=== PATIENT | female | born 1970 | race Caucasian/White ===

== ENCOUNTER 2023-07-06 08:23 | Inpatient (IN) | payer OTHER, SELFPAY ==
[2023-07-06] VITALS (94 sets, daily range): BP systolic 83–128; BP diastolic 43–85; PULSE 113–135; RESP 16–27; TEMP 36.9–37.3; O2SAT 80–100; BMI 29.5; BMI 27.0
--- NOTE | 2023-07-06 08:29 | ECG_ITS ---
[facility] Test Date: 2023-07-06 Pat Name: ANU YEUNG Department: Room: - Gender: Female Magazine Writer: : 1970 Requested By: [id number] Order Number: [id number] Reading MD: KHOI TORRES Measurements Intervals [place] Rate: 128 P: 90 PA: 188 QRS: 81 QRSD: 80 T: -47 QT: 298 QTc: 374 Interpretive Statements 1120 Sinus tachycardia [address] depression 4664 Twave abnormality, possible inferior ischemia 9150 abnormal ECG No previous ECG available for comparison Electronically Signed On 07-11-2023 7:50:51 EST by KHOI TORRES
--- NOTE | 2023-07-06 08:34 | ED.GENADUL1 ---
HPI - General Adult General Chief complaint: Nausea/Vomiting/Diarrhea Stated complaint: Diabetic/Flu Time Seen by Provider: 07/06/23 08:29 Source: patient Mode of arrival: ambulance Limitations: no limitations History of Present Illness HPI narrative: 53-year-old female presents for nausea and vomiting. She is diabetic and hasn't taken her medication in an unclear amount of time. She states she's been sick for two days. No fever or hematemesis. She thinks her electrolytes are off. She does not complain to me of chest pain or abdominal pain or back pain. Related Data Home Medications Medication Instructions Recorded Confirmed No Known Home Medications 07/06/23 07/06/23 Allergies Allergy/AdvReac Type Severity Reaction Status Date / Time No Known Drug Allergies Allergy Verified 07/06/23 08:26 Review of Systems ROS Narrative A ten point review of systems is negative except as noted above. Exam Narrative Exam Narrative: Nurses note and vital signs reviewed and patient is not hypoxic. General: The patient appears well and in no apparent distress. Patient is resting comfortably on cart. Skin: Warm, dry, no pallor noted. There is no rash noted. Head: Normocephalic, atraumatic Eye: Normal conjunctiva, no drainage Ears, Nose, Mouth, and Throat: oral mucosa is quite dry. Nares patent. Cardiovascular: Regular Rate and Rhythm, tachycardic Respiratory: Patient is in no distress, no accessory muscle use, lungs are clear to auscultation, no wheezing, rales or rhonchi Back: non-tender GI: soft and nontender Musculoskeletal: The patient has no evidence of calf tenderness, no pitting edema, symmetrical pulses noted bilaterally Neurological: A&O, normal speech Psychiatric: Cooperative Constitutional Vital Signs, click to edit/add: Last Vital Signs Temp 98.5 F 07/06/23 08:26 Pulse 130 H 07/06/23 08:26 Resp 22 07/06/23 08:26 BP 103/80 07/06/23 08:26 Pulse Ox 98 07/06/23 08:26 O2 Del Method Room Air 07/06/23 08:26 Course Vital Signs Vital signs: Vital Signs Temperature 98.5 F 07/06/23 08:26 Pulse Rate 130 H 07/06/23 08:26 Respiratory Rate 22 07/06/23 08:26 Blood Pressure 103/80 07/06/23 08:26 Pulse Oximetry 98 07/06/23 08:26 Oxygen Delivery Method Room Air 07/06/23 08:26 Temperature 98.5 F 07/06/23 08:26 Pulse Rate 130 H 07/06/23 08:26 Respiratory Rate 22 07/06/23 08:26 Blood Pressure 103/80 07/06/23 08:26 Pulse Oximetry 98 07/06/23 08:26 Oxygen Delivery Method Room Air 07/06/23 08:26 Medical Decision Making MDM Narrative Medical decision making narrative: the patient is found to be in diabetic ketoacidosis. She was given IV fluids and insulin bolus and insulin drip and she's being admitted to the ICU. Findings are discussed with the patient and her friend. Differential Diagnosis Differential Diagnosis: diabetic to acidosis, noncompliance, dehydration Lab Data Lab results reviewed: Yes I reviewed the patient's lab results Labs: Lab Results 07/06/23 07/06/23 Range/Units 09:15 10:11 WBC 11.0 (4.0-11.0) 10^3/uL RBC 5.74 H (4.20-5.40) 10^6/uL Hgb 16.9 H (12.0-16.0) g/dL Hct 55.0 H (36.0-48.0) % MCV 95.8 (81.0-99.0) fL MCH 29.4 (26.7-34.0) pg MCHC 30.7 (29.9-35.2) g/dL RDW 13.1 (11.0-15.0) % Plt Count 291 (150-450) 10^3/uL MPV 10.6 (9.5-13.5) fL Neut % (Auto) 81.7 H (43.0-75.0) % Lymph % (Auto) 8.2 L (20.5-60.0) % Catron % (Auto) 7.3 (1.7-12.0) % Eos % (Auto) 0.0 L (0.9-7.0) % Baso % (Auto) 0.5 (0.2-2.0) % Neut # (Auto) 9.0 H (1.4-6.5) 10^3/uL Lymph # (Auto) 0.9 L (1.2-3.8) 10^3/uL Catron # (Auto) 0.8 (0.3-0.8) 10^3/uL Eos # (Auto) 0.0 (0.0-0.7) 10^3/uL Baso # (Auto) 0.1 (0.0-0.1) 10^3/uL Abs Immat Gran (auto) 0.25 H (0.00-0.03) 10^3/uL Imm/Tot Granulo (auto) 2.3 H (0.0-0.5) % VBG pH 6.982 L (7.330-7.430) VBG pCO2 18.2 L (40.0-52.0) mmHg Sodium 128 L (136-145) mmol/L Potassium 4.8 (3.5-5.1) mmol/L Chloride 92 L (98-107) mmol/L Carbon Dioxide 8.6 L (21.0-32.0) mmol/L Anion Gap 32.2 BUN 36.0 H (7.0-18.0) mg/dL Creatinine 1.32 H (0.55-1.02) mg/dL Est GFR ( Amer) 51 L (>=60) Est GFR (Non-Af Amer) 42 L (>=60) BUN/Creatinine Ratio 27.3 Glucose 554 H* (74-106) mg/dL Calcium 10.3 H (8.5-10.1) mg/dL Magnesium 2.3 (1.8-2.4) mg/dL Total Bilirubin 0.5 (0.2-1.0) mg/dL Direct Bilirubin 0.1 (0.0-0.2) mg/dL AST 11 L (15-37) U/L ALT 21 (14-59) U/L Alkaline Phosphatase 123 H (46-116) U/L Troponin I High Sens 19.5 (4.0-51.3) pg/mL Total Protein 8.3 H (6.4-8.2) g/dL Albumin 3.4 (3.4-5.0) g/dL Globulin 4.9 g/dL Albumin/Globulin Ratio 0.7 Amylase 36 (25-115) U/L Lipase 39.0 (16.0-77.0) U/L Urine Color Lt. yellow (YELLOW) Urine Clarity Clear (CLEAR) Urine pH 5.5 (5.0-9.0) Ur Specific [place] 1.025 (1.005-1.025) Urine Protein 30 A (NEG/TRACE) mg/dL Urine Glucose (UA) >=1000 A (NEGATIVE) mg/dL Urine Ketones >=80 A (NEGATIVE) mg/dL Urine Occult Blood Small A (NEGATIVE) Urine Nitrite Negative (NEGATIVE) Urine Bilirubin Small A (NEGATIVE) Urine Urobilinogen 0.2 (0.2-1.0) EU/dL Ur Leukocyte Esterase Negative (NEGATIVE) Urine RBC 0-2 (0-2) #/HPF Urine WBC None seen (NONE SEEN) #/HPF Ur Squamous Epith Cells Rare (NONE/RARE) #/LPF Urine Crystals None seen (None Seen) #/HPF Urine Bacteria None seen (NONE SEEN) #/HPF Urine Casts Seen A (NONE SEEN) #/LPF Coarse Granular Casts Few Urine Mucus Trace A (NONE SEEN) Acetone, Qual Small A (NEGATIVE) Imaging Data Chest x-ray: My impression: the patient refused her chest x-ray ECG Data Attestation: I personally reviewed and interpreted this ECG as follows: (EKG on my interpretation shows sinus tachycardia) Critical Care Time Critical Care Time Critical Care Time: Yes Total Critical Care Time: 40 Attestation: Due to the high probability of sudden and clinically significant deterioration in the patient's condition he/she required the highest level of my preparedness to intervene urgently I provided critical care time including documentation time, medication orders and management, reevaluation, vital sign assessment, ordering and reviewing of lab tests, ordering and reviewing of x-ray studies, and admission orders. Aggregate critical care time is 40 minutes including only time during which I was engaged in work directly related to his/her care and did not include time spent treating other patients simultaneously. Discharge Plan Discharge Chief Complaint: Nausea/Vomiting/Diarrhea Clinical Impression: Diabetic ketoacidosis Patient Disposition: Admitted As Inpatient Time of Disposition Decision: 10:41 Condition: Fair Prescriptions / Home Meds: No Action No Known Home Medications Referrals: Physician,Non-Staff, [Primary Care Provider] - 1 week
[2023-07-06] MEDS: 0.9 % SODIUM CHLORIDE 1,000 ML 1000 ML IV ×3 (08:41→19:57)
[2023-07-06] MEDS: ONDANSETRON PF 4 MG/2 ML VIAL IV (08:41)
[2023-07-06 09:26] LABS: PCO2 VBG 18.2 mmHg (40.0-52.0); pH VBG 6.982 (7.330-7.430)
[2023-07-06 09:27] LABS: Basophils Absolute Auto 0.1 10^3/uL (0.0-0.1); Basophils Percent Auto 0.5 % (0.2-2.0); Hemoglobin 16.9 g/dL (12.0-16.0); Immature Granulocytes Abs Auto 0.25 10^3/uL (0.00-0.03); Immature Granulocytes Pct Auto 2.3 % (0.0-0.5); Lymphocytes Absolute Auto 0.9 10^3/uL (1.2-3.8); Lymphocytes Percent Auto 8.2 % (20.5-60.0); Mean Corpuscular HGB Conc 30.7 g/dL (29.9-35.2); Mean Corpuscular Hemoglobin 29.4 pg (26.7-34.0); Mean Corpuscular Volume 95.8 fL (81.0-99.0); Mean Platelet Volume 10.6 fL (9.5-13.5); Monocytes Absolute Auto 0.8 10^3/uL (0.3-0.8); Monocytes Percent Auto 7.3 % (1.7-12.0); Neutrophils Percent Auto 81.7 % (43.0-75.0); Platelet Count 291 10^3/uL (150-450); Red Blood Count 5.74 10^6/uL (4.20-5.40); Red Cell Distribution Width 13.1 % (11.0-15.0)
[2023-07-06 09:44] LABS: Alanine Aminotransferase 21 U/L (14-59); Albumin Globulin Ratio 0.7; Albumin Level 3.4 g/dL (3.4-5.0); Alkaline Phosphatase 123 U/L (46-116); Amylase 36 U/L (25-115); Anion Gap 32.2; Aspartate Amino Transferase 11 U/L (15-37); BUN Creatinine Ratio 27.3; Bilirubin Direct 0.1 mg/dL (0.0-0.2); Bilirubin Total 0.5 mg/dL (0.2-1.0); Calcium 10.3 mg/dL (8.5-10.1); Carbon Dioxide 8.6 mmol/L (21.0-32.0); Chloride 92 mmol/L (98-107); Estimated GFR (African America 51 (>=60); Estimated GFR (Non-African Ame 42 (>=60); Globulin 4.9 g/dL; Magnesium 2.3 mg/dL (1.8-2.4); Potassium 4.8 mmol/L (3.5-5.1); Sodium 128 mmol/L (136-145); Total Protein 8.3 g/dL (6.4-8.2); Troponin I High Sensitivity 19.5 pg/mL (4.0-51.3)
[2023-07-06 09:51] LABS: Glucose 554 mg/dL (74-106)
[2023-07-06 09:59] LABS: Acetone SMALL (NEGATIVE)
[2023-07-06 10:25] LABS: Bilirubin Urine SMALL (NEGATIVE); Blood Urine SMALL (NEGATIVE); Clarity Urine CLEAR (CLEAR); Color Urine LT. YELLOW (YELLOW); Glucose Urine UA >=1000 mg/dL (NEGATIVE); Ketones Urine >=80 mg/dL (NEGATIVE); Leukocyte Esterase Urine NEGATIVE (NEGATIVE); Nitrite Urine NEGATIVE (NEGATIVE); Protein Urine 30 mg/dL (NEG/TRACE); Specific Gravity Urine 1.025 (1.005-1.025); Urobilinogen Urine 0.2 EU/dL (0.2-1.0); pH Urine 5.5 (5.0-9.0)
[2023-07-06 10:30] LABS: RBC Urine 0-2 #/HPF (0-2); WBC Urine NONE SEEN #/HPF (NONE SEEN)
[2023-07-06 10:31] LABS: Bacteria Urine NONE SEEN #/HPF (NONE SEEN); Cast Seen? SEEN #/LPF (NONE SEEN); Coarse Granular Casts Urine FEW; Crystals Seen? None Seen #/HPF (None Seen); Mucus Urine TRACE (NONE SEEN); Squamous Epithelial Cell Urine RARE #/LPF (NONE/RARE)
[2023-07-06] MEDS: INSULIN REGULAR IN 0.9 % NACL 100 UNIT/100 ML PLAST..BAG 7.8 UNIT IV (10:34)
[2023-07-06] MEDS: INSULIN REGULAR 300 UNITS/3 ML 10 UNIT IV (10:35)
[2023-07-06 12:35] LABS: Glucometer 330 mg/dL (74-106)
[2023-07-06] MEDS: LACTATED RINGER'S SOLUTION 1,000 ML 125 ML IV (12:42)
[2023-07-06 12:55] LABS: Anion Gap 31.2; BUN Creatinine Ratio 28.7; Calcium 9.7 mg/dL (8.5-10.1); Carbon Dioxide 8.8 mmol/L (21.0-32.0); Chloride 99 mmol/L (98-107); Estimated GFR (African America 59 (>=60); Estimated GFR (Non-African Ame 49 (>=60); Glucose 398 mg/dL (74-106); Sodium 134 mmol/L (136-145)
[2023-07-06 12:56] LABS: Lactate/Lactic Acid 3.1 mmol/L (0.4-2.0)
[2023-07-06 13:02] LABS: Troponin I High Sensitivity 21.8 pg/mL (4.0-51.3)
[2023-07-06 13:08] LABS: Free T3 1.14 pg/mL (2.18-3.98); Thyroid Stimulating Hormone 0.253 uIU/mL (0.358-3.740)
[2023-07-06] MEDS: INSULIN REGULAR IN 0.9 % NACL 100 UNIT/100 ML PLAST..BAG IV (16:17)
[2023-07-06 16:23] LABS: Lactate/Lactic Acid 1.3 mmol/L (0.4-2.0)
[2023-07-06] MEDS: 0.9 % SODIUM CHLORIDE 1,000 ML 500 ML IV ×2 (16:36→18:26)
[2023-07-06] MEDS: DEXTROSE 5%-0.9% NACL 1,000 ML 1,000 ML 100 ML IV ×2 (17:35→17:36)
--- NOTE | 2023-07-06 19:14 | XR_ITS ---
[address] [address] Patient Name: ANU YEUNG MRN: [id number] date: 1970 Sex: F Assigned Patient Location: ICU Current Patient Location: ICU Accession/Order Number: [id number] Exam Date: 07/06/2023 19:35 Report Date: 07/06/2023 20:07 At the request of: KHOI TORRES Procedure: XR chest 1V EXAM: XR chest 1V HISTORY: cough COMPARISON: Chest x-ray 08/09/2012 TECHNIQUE: Single AP radiograph of the chest FINDINGS: No pneumothorax and pleural effusion or consolidation. Normal heart size. No acute osseous abnormality. XR/XR chest 1V IMPRESSION: No acute cardiopulmonary process. Electronically authenticated by: STEVEN SPARKS Date: 07/06/2023 20:07
--- NOTE | 2023-07-06 19:15 | P.HP_ITS ---
H&P: HPI History of Present Illness Chief complaint: Diabetic/Flu, DKA Narrative: Patient difficult to get a history from, she is given multiple answers to multiple providers. Like she was sick earlier in the week. Initially to the nurse she denied any type of cough or respiratory issue, to me she says she has been coughing all week. Nausea and vomiting started the last 24 hours but has not had anything since this morning. On my exam she is in respiratory distress and increasing cough. Per the nurse that has progressed throughout the course of the day today. In ER patient found to have DKA. pH less than 7. Admitted to the ICU on insulin drip. Fluid boluses. Blood pressures been decreasing throughout the afternoon despite boluses. Tachycardia also. Review of Systems ROS Narrative Very difficult to get an accurate history of the patient she is not cooperative Status of ROS 10 or more systems reviewed and unremark able except as noted in history and below [facility] Medical History Diabetes mellitus ?E11.9 - Type 2 diabetes mellitus without complications (ICD-10) Meds Home Medications and Allergies Home Medications Medication Instructions Recorded Confirmed Type No Known Home Medications 07/06/23 07/06/23 History Allergies Allergy/AdvReac Type Severity Reaction Status Date / Time No Known Drug Allergies Allergy Verified 07/06/23 08:26 Exam Constitutional Vital Signs, click to edit/add: Last Vital Signs Temp 98.6 F 07/06/23 16:11 Pulse 125 H 07/06/23 18:00 Resp 21 07/06/23 16:10 BP 90/67 07/06/23 16:00 Pulse Ox 100 07/06/23 18:00 O2 Del Method Room Air 07/06/23 16:37 Documenting provider has reviewed patient's vital signs: yes Common normals: apparent distress Chest Common normals: inspection of chest normal and palpation of chest normal Respiratory Common normals: abnormal respiratory effort (Mild labored breathing) and use of accessory muscles Auscultation: rhonchi right lower Cardio Common normals: irregular rate Rate: tachycardic Extremity Common normals: normal to inspection Results Labs Labs: Short CBC 07/06/23 Range/Units 09:15 WBC 11.0 (4.0-11.0) 10^3/uL Hgb 16.9 H (12.0-16.0) g/dL Hct 55.0 H (36.0-48.0) % Plt Count 291 (150-450) 10^3/uL BMP 07/06/23 07/06/23 09:15 12:35 Sodium 128 L 134 L Potassium 4.8 5.0 Chloride 92 L 99 Carbon Dioxide 8.6 L 8.8 L BUN 36.0 H 33.0 H Creatinine 1.32 H 1.15 H Glucose 554 H* 398 H Calcium 10.3 H 9.7 Liver Function 07/06/23 Range/Units 09:15 Total Bilirubin 0.5 (0.2-1.0) mg/dL Direct Bilirubin 0.1 (0.0-0.2) mg/dL AST 11 L (15-37) U/L ALT 21 (14-59) U/L Alkaline Phosphatase 123 H (46-116) U/L Albumin 3.4 (3.4-5.0) g/dL Urine 07/06/23 Range/Units 10:11 Urine Color Lt. yellow (YELLOW) Urine Clarity Clear (CLEAR) Urine pH 5.5 (5.0-9.0) Ur Specific [place] 1.025 (1.005-1.025) Urine Protein 30 A (NEG/TRACE) mg/dL Urine Glucose (UA) >=1000 A (NEGATIVE) mg/dL ABG ABG results: 07/06/23 09:15 VBG pH 6.982 L VBG pCO2 18.2 L Assessment and Plan Assessment and Plan (1) Diabetic ketoacidosis: Plan Tachycardia, respiratory distress, hypotension, metabolic acidosis, leukocytosis, hyponatremia, dehydration, elevated LFTs, acute kidney injury secondary to DKA possibly secondary to pneumonia resulting in severe sepsis with multisystem organ dysfunction(heart, liver, kidney), exam consistent with possible rhonchi right lower lobe consistent with pneumonia. Will check chest x-ray. Start patient on IV antibiotics and aerosol treatments. DKA-continue with fluid resuscitation, did hold off on insulin drip secondary to sugars going less than 170. Start D5 as I doubt her metabolic acidosis has resolved. Needs further combination of insulin and sugar to resolve Acute kidney injury secondary to DKA-monitor daily, continue fluid resuscitation Hyponatremia secondary to dehydration secondary to DKA with acute kidney injury- continue fluid resuscitation Polycythemia-this is likely secondary to hemoconcentration from the DKA and dehydration Elevated liver function test likely related to passive congestion from the DKA- dehydration. Monitor daily With the severity of illness and the degree of metabolic acidosis and need for insulin drip patient was admitted to the ICU as an inpatient.
[2023-07-06 19:22] LABS: Anion Gap 20.4; BUN Creatinine Ratio 23.4; Calcium 8.8 mg/dL (8.5-10.1); Carbon Dioxide 13.4 mmol/L (21.0-32.0); Chloride 103 mmol/L (98-107); Estimated GFR (African America >60 (>=60); Estimated GFR (Non-African Ame >60 (>=60); Glucose 226 mg/dL (74-106); Potassium 3.8 mmol/L (3.5-5.1); Sodium 133 mmol/L (136-145)
[2023-07-06] MEDS: LEVOFLOXACIN IN DEXTROSE 5 % 750 MG/150 ML IV.SOLN 100 MG IV (20:25)
[2023-07-06] MEDS: PIPERACILLIN SODIUM/TAZOBACTAM 3.375 GM in 0.9 % SODIUM CHLORIDE 50 ML IV (22:28)
--- NOTE | 2023-07-06 22:37 | RESP.RT ---
Pt refused breathing tx. Pt stated she is not having trouble breathing and feels it is not necessary at this time. No respiratory distress noted. Breath sounds clear.
[2023-07-07] VITALS (133 sets, daily range): BP systolic 130–151; BP diastolic 60–78; PULSE 98–124; RESP 7–33; TEMP 36.5–37.2; O2SAT 96–98
[2023-07-07 04:53] LABS: Basophils Percent Auto 0.1 % (0.2-2.0); Hematocrit 38.7 % (36.0-48.0); Hemoglobin 12.9 g/dL (12.0-16.0); Immature Granulocytes Abs Auto 0.04 10^3/uL (0.00-0.03); Immature Granulocytes Pct Auto 0.6 % (0.0-0.5); Lymphocytes Absolute Auto 0.6 10^3/uL (1.2-3.8); Lymphocytes Percent Auto 8.3 % (20.5-60.0); Mean Corpuscular HGB Conc 33.3 g/dL (29.9-35.2); Mean Corpuscular Hemoglobin 29.2 pg (26.7-34.0); Mean Corpuscular Volume 87.6 fL (81.0-99.0); Mean Platelet Volume 9.7 fL (9.5-13.5); Monocytes Absolute Auto 0.6 10^3/uL (0.3-0.8); Monocytes Percent Auto 8.6 % (1.7-12.0); Neutrophils Absolute Auto 5.8 10^3/uL (1.4-6.5); Neutrophils Percent Auto 82.4 % (43.0-75.0); Platelet Count 198 10^3/uL (150-450); Red Blood Count 4.42 10^6/uL (4.20-5.40); Red Cell Distribution Width 13.3 % (11.0-15.0); White Blood Count 7.1 10^3/uL (4.0-11.0)
[2023-07-07 04:54] LABS: PCO2 VBG 33.9 mmHg (40.0-52.0); pH VBG 7.288 (7.330-7.430)
[2023-07-07 05:13] LABS: Alanine Aminotransferase 16 U/L (14-59); Albumin Globulin Ratio 0.7; Albumin Level 2.4 g/dL (3.4-5.0); Alkaline Phosphatase 78 U/L (46-116); Anion Gap 14.1; Aspartate Amino Transferase 10 U/L (15-37); BUN Creatinine Ratio 14.7; Bilirubin Total 0.3 mg/dL (0.2-1.0); Calcium 8.1 mg/dL (8.5-10.1); Carbon Dioxide 17.8 mmol/L (21.0-32.0); Chloride 105 mmol/L (98-107); Estimated GFR (African America >60 (>=60); Estimated GFR (Non-African Ame >60 (>=60); Globulin 3.3 g/dL; Glucose 272 mg/dL (74-106); Sodium 134 mmol/L (136-145); Total Protein 5.7 g/dL (6.4-8.2)
[2023-07-07 05:21] LABS: Troponin I High Sensitivity 40.1 pg/mL (4.0-51.3)
[2023-07-07 05:24] LABS: Potassium 2.9 mmol/L (3.5-5.1)
[2023-07-07 05:51] LABS: Magnesium 1.6 mg/dL (1.8-2.4)
[2023-07-07] MEDS: POTASSIUM CHLORIDE 10 MEQ IN WATER 100 ML PIGGYBACK IV (06:01)
[2023-07-07] MEDS: PIPERACILLIN SODIUM/TAZOBACTAM 3.375 GM in 0.9 % SODIUM CHLORIDE 50 ML IV ×3 (06:02→22:18)
--- NOTE | 2023-07-07 07:38 | P.PN_ITS ---
Progress Note: Subjective Subjective Interval history: Patient much more awake and alert this morning. Little more cooperative as well. Exam Constitutional Vital Signs, click to edit/add: Last Vital Signs Temp 98.9 F 07/07/23 03:39 Pulse 114 H 07/07/23 06:08 Resp 20 07/07/23 04:54 BP 146/77 H 07/07/23 03:39 Pulse Ox 97 07/07/23 04:51 O2 Del Method Room Air 07/07/23 04:51 Documenting provider has reviewed patient's vital signs: yes Common normals: apparent distress Chest Common normals: inspection of chest normal and palpation of chest normal Respiratory Common normals: abnormal respiratory effort (Mild labored breathing) and use of accessory muscles Auscultation: rhonchi right lower Cardio Common normals: irregular rate Rate: tachycardic Extremity Common normals: normal to inspection Progress Note: Objective Labs Labs: Short CBC 07/06/23 07/07/23 Range/Units 09:15 04:40 WBC 11.0 7.1 (4.0-11.0) 10^3/uL Hgb 16.9 H 12.9 (12.0-16.0) g/dL Hct 55.0 H 38.7 (36.0-48.0) % Plt Count 291 198 (150-450) 10^3/uL BMP 07/06/23 07/06/23 07/06/23 09:15 12:35 18:53 Sodium 128 L 134 L 133 L Potassium 4.8 5.0 3.8 Chloride 92 L 99 103 Carbon Dioxide 8.6 L 8.8 L 13.4 L BUN 36.0 H 33.0 H 22.0 H Creatinine 1.32 H 1.15 H 0.94 Glucose 554 H* 398 H 226 H Calcium 10.3 H 9.7 8.8 07/07/23 04:40 Sodium 134 L Potassium 2.9 L* Chloride 105 Carbon Dioxide 17.8 L BUN 14.0 Creatinine 0.95 Glucose 272 H Calcium 8.1 L Liver Function 07/06/23 07/07/23 Range/Units 09:15 04:40 Total Bilirubin 0.5 0.3 (0.2-1.0) mg/dL Direct Bilirubin 0.1 (0.0-0.2) mg/dL AST 11 L 10 L (15-37) U/L ALT 21 16 (14-59) U/L Alkaline Phosphatase 123 H 78 (46-116) U/L Albumin 3.4 2.4 L (3.4-5.0) g/dL Urine 07/06/23 Range/Units 10:11 Urine Color Lt. yellow (YELLOW) Urine Clarity Clear (CLEAR) Urine pH 5.5 (5.0-9.0) Ur Specific [place] 1.025 (1.005-1.025) Urine Protein 30 A (NEG/TRACE) mg/dL Urine Glucose (UA) >=1000 A (NEGATIVE) mg/dL Progress Note: A&P Assessment and Plan (1) Diabetic ketoacidosis: Plan Tachycardia, respiratory distress, hypotension, metabolic acidosis, leukocytosis, hyponatremia, dehydration, elevated LFTs, acute kidney injury secondary to DKA possibly secondary to pneumonia resulting in severe sepsis with multisystem organ dysfunction(heart, liver, kidney), chest x-ray is clear but patient does have a significant cough, nonproductive, continue with IV antibiotics DKA-continue with fluid resuscitation, patient back on insulin drip, sugars running low 200s with the drip. Acidosis slowly resolving. pH up to 7.2. Maintain current Treatment:, Possible change to subcu insulin and fluid resuscitation has been completed Acute kidney injury secondary to DKA-monitor daily, continue fluid resuscit ation-repeat fluid bolus this morning, tachycardia improving Hyponatremia secondary to dehydration secondary to DKA with acute kidney injury- continue fluid resuscitation Polycythemia-this is likely secondary to hemoconcentration from the DKA and dehydration-this is resolved Elevated liver function test likely related to passive congestion from the DKA- dehydration. Monitor daily-improved With the severity of illness and the degree of metabolic acidosis and need for insulin drip patient was admitted to the ICU as an inpatient. Hypokalemia as suspected from improving acidosis-supplements morning. Repeat level later this morning and continue to supplement IV as needed Moderate protein calorie malnutrition based on NIH criteria for albumin-consider supplementation, will see how patient does p.o. intake today Hypomagnesemia-supplement
--- NOTE | 2023-07-07 07:38 | CM.NOTE ---
Rounds made with Dr. Page, no discharge today.
[2023-07-07] MEDS: 0.9 % SODIUM CHLORIDE 1,000 ML 500 ML IV ×2 (08:00→11:21)
[2023-07-07] MEDS: MAGNESIUM OXIDE 400 MG TABLET PO ×2 (08:55→20:01)
[2023-07-07 11:50] LABS: Anion Gap 18.4; BUN Creatinine Ratio 11.8; Calcium 6.9 mg/dL (8.5-10.1); Carbon Dioxide 16.4 mmol/L (21.0-32.0); Chloride 108 mmol/L (98-107); Estimated GFR (African America >60 (>=60); Estimated GFR (Non-African Ame >60 (>=60); Glucose 190 mg/dL (74-106); Sodium 140 mmol/L (136-145)
[2023-07-07 12:06] LABS: Potassium 2.8 mmol/L (3.5-5.1)
[2023-07-07] MEDS: LACTATED RINGER'S SOLUTION 1,000 ML 125 ML IV ×2 (12:06→19:59)
[2023-07-07] MEDS: POTASSIUM CHLORIDE 40 MEQ in 0.9 % SODIUM CHLORIDE 250 ML 125 MEQ IV (13:09)
--- NOTE | 2023-07-07 17:15 | NUTR.NU ---
Pt admitted w/dx diabetic ketoacidosis, elyte imbalance (low Ca+, K+, Mg+), and diet order for 1500 kcal CCD, regular/thin diet. No PO intakes documented. Recommend 237 mL Ensure High PRO BID. Will follow PRN.
[2023-07-07 18:46] LABS: Anion Gap 19.7; Calcium 7.7 mg/dL (8.5-10.1); Carbon Dioxide 16.2 mmol/L (21.0-32.0); Chloride 102 mmol/L (98-107); Estimated GFR (African America >60 (>=60); Estimated GFR (Non-African Ame >60 (>=60); Glucose 237 mg/dL (74-106); Potassium 3.9 mmol/L (3.5-5.1); Sodium 134 mmol/L (136-145)
[2023-07-07] MEDS: LEVOFLOXACIN IN DEXTROSE 5 % 750 MG/150 ML IV.SOLN 100 MG IV (20:00)
[2023-07-07] MEDS: ENSURE HP 237 ML LIQUID PO (20:01)
[2023-07-08] VITALS (101 sets, daily range): BP systolic 132–153; BP diastolic 67–82; PULSE 85–133; RESP 0–44; TEMP 36.4–37.1; O2SAT 96–98
[2023-07-08] MEDS: PIPERACILLIN SODIUM/TAZOBACTAM 3.375 GM in 0.9 % SODIUM CHLORIDE 50 ML IV (05:29)
[2023-07-08] MEDS: LACTATED RINGER'S SOLUTION 1,000 ML 125 ML IV (05:29)
[2023-07-08] MEDS: INSULIN REGULAR IN 0.9 % NACL 100 UNIT/100 ML PLAST..BAG IV (05:40)
[2023-07-08 05:46] LABS: PCO2 VBG 36.1 mmHg (40.0-52.0); pH VBG 7.435 (7.330-7.430)
[2023-07-08 05:55] LABS: Basophils Percent Auto 0.6 % (0.2-2.0); Hematocrit 36.7 % (36.0-48.0); Hemoglobin 12.3 g/dL (12.0-16.0); Immature Granulocytes Abs Auto 0.01 10^3/uL (0.00-0.03); Immature Granulocytes Pct Auto 0.3 % (0.0-0.5); Lymphocytes Absolute Auto 0.9 10^3/uL (1.2-3.8); Lymphocytes Percent Auto 24.5 % (20.5-60.0); Mean Corpuscular HGB Conc 33.5 g/dL (29.9-35.2); Mean Corpuscular Hemoglobin 28.6 pg (26.7-34.0); Mean Corpuscular Volume 85.3 fL (81.0-99.0); Mean Platelet Volume 10.3 fL (9.5-13.5); Monocytes Absolute Auto 0.5 10^3/uL (0.3-0.8); Monocytes Percent Auto 14.4 % (1.7-12.0); Neutrophils Absolute Auto 2.1 10^3/uL (1.4-6.5); Neutrophils Percent Auto 60.2 % (43.0-75.0); Platelet Count 158 10^3/uL (150-450); Red Cell Distribution Width 13.1 % (11.0-15.0); White Blood Count 3.6 10^3/uL (4.0-11.0)
[2023-07-08 06:19] LABS: Magnesium 1.8 mg/dL (1.8-2.4)
[2023-07-08 06:25] LABS: Alanine Aminotransferase 15 U/L (14-59); Albumin Globulin Ratio 0.7; Albumin Level 2.3 g/dL (3.4-5.0); Alkaline Phosphatase 80 U/L (46-116); Anion Gap 14.2; Aspartate Amino Transferase 13 U/L (15-37); BUN Creatinine Ratio 7.1; Bilirubin Total 0.4 mg/dL (0.2-1.0); Calcium 8.3 mg/dL (8.5-10.1); Carbon Dioxide 24.5 mmol/L (21.0-32.0); Chloride 101 mmol/L (98-107); Estimated GFR (African America >60 (>=60); Estimated GFR (Non-African Ame >60 (>=60); Globulin 3.1 g/dL; Glucose 237 mg/dL (74-106); Sodium 137 mmol/L (136-145); Total Protein 5.4 g/dL (6.4-8.2)
[2023-07-08 06:40] LABS: Potassium 2.7 mmol/L (3.5-5.1)
[2023-07-08] MEDS: DEXTROSE 5%-0.9% NACL 1,000 ML 1,000 ML 100 ML IV (07:35)
[2023-07-08] MEDS: POTASSIUM CHLORIDE 40 MEQ in 0.9 % SODIUM CHLORIDE 250 ML 67.5 MEQ IV (07:58)
[2023-07-08] MEDS: ENSURE HP 237 ML LIQUID PO (08:00)
[2023-07-08] MEDS: MAGNESIUM OXIDE 400 MG TABLET PO ×2 (08:00→21:36)
[2023-07-08] MEDS: POTASSIUM CHLORIDE 10 MEQ ER TABLET 40 MEQ PO (09:36)
[2023-07-08] MEDS: INSULIN DETEMIR 300 UNIT/3 ML INSULN.PEN 20 UNIT SUBQ (09:36)
[2023-07-08 11:04] LABS: Estimated Average Glucose 355 mg/dL; Glycohemoglobin A1C >14.0 % (4.5-6.2)
--- NOTE | 2023-07-08 11:31 | PM.IMPN1 ---
Progress Note: A&P Assessment and Plan (1) Diabetic ketoacidosis: Assessment and Plan: Due to non compliance. GAP close earlier today. Started on Levemir 20 units qam along 50 untis qhs Stop IV insulin after 2 hours of receiving Levemir. C/w accu checks q4. Sliding scale insulin for hperglycemia. Transfer to med-surg floor. Will need continued monitoring to ensure gap remains close, electrolytes remain at goal and her blood glucose remains controlled. Qualifiers: Diabetes mellitus type: type 2 Diabetes mellitus complication detail: without coma Qualified Code(s): E11.10 - Type 2 diabetes mellitus with ketoacidosis without coma (2) GIORGIO (acute kidney injury): Assessment and Plan: resolved. likely pre renal (3) Hypokalemia: Assessment and Plan: Low potassium. Due to DKA, insulin infusion. Received 40 IV, 40 PO potassium Rechek BMP 2 pm (4) Hypovolemic shock: Assessment and Plan: Resolved. BP is elevated today. Monitor closely. (5) URTI (acute upper respiratory infection): Assessment and Plan: Normal rsp exam. Normal CXR. She was experiencing resp symptoms prior to her admission. Patient was started on Levaquin for presumed PNA. Will switch to PO Levaquin. Nomal Lung exam today. Internal Medicine - PN: Subj Subjective Interval history: Seen and examined. Doing well. No complaints to offer. Exam Constitutional Vital Signs, click to edit/add: Last Vital Signs Temp 97.8 F 07/08/23 08:00 Pulse 95 H 07/08/23 09:00 Resp 18 07/08/23 08:00 BP 146/82 H 07/08/23 08:00 Pulse Ox 98 07/08/23 11:00 O2 Del Method Room Air 07/08/23 08:00 Documenting provider has reviewed patient's vital signs: yes Common normals: no apparent distress and oriented x3 General appearance: cooperative Respiratory Common normals: normal respiratory effort and clear to auscultation bilaterally Effort & inspection: able to speak in complete sentences Auscultation: clear to auscultation bilaterally Cardio Common normals: regular rate, S1 normal heart sound and S2 normal heart sound Rate: regular rate Heart sounds: S1 normal and S2 normal GI Common normals: Normal to inspection, nondistended, normoactive bowel sounds present, soft to palpation, non-tender and no hepatosplenomegaly Palpation: soft and no hepatosplenomegaly Extremity Common normals: no clubbing, cyanosis or edema Neuro Common normals: oriented x3, moves all extremities and no focal motor deficits Internal Medicine - PN: Obj Da Labs Labs: Laboratory Results - last 24 hr 07/07/23 07/07/23 07/08/23 11:05 18:31 05:19 WBC 3.6 L RBC 4.30 Hgb 12.3 Hct 36.7 MCV 85.3 MCH 28.6 MCHC 33.5 RDW 13.1 Plt Count 158 MPV 10.3 Neut % (Auto) 60.2 Lymph % (Auto) 24.5 [place] % (Auto) 14.4 H Eos % (Auto) 0.0 L Baso % (Auto) 0.6 Neut # (Auto) 2.1 Lymph # (Auto) 0.9 L [place] # (Auto) 0.5 Eos # (Auto) 0.0 Baso # (Auto) 0.0 Abs Immat Gran (auto) 0.01 Imm/Tot Granulo (auto) 0.3 VBG pH 7.435 H VBG pCO2 36.1 L Sodium 140 134 L 137 Potassium 2.8 L* 3.9 2.7 L* Chloride 108 H 102 101 Carbon Dioxide 16.4 L 16.2 L 24.5 Anion Gap 18.4 19.7 14.2 BUN 8.0 6.0 L 5.0 L Creatinine 0.68 0.60 0.70 Est GFR ( Amer) >60 >60 >60 Est GFR (Non-Af Amer) >60 >60 >60 BUN/Creatinine Ratio 11.8 10.0 7.1 Glucose 190 H 237 H 237 H Estimat Average Glucose 355 Hemoglobin A1c >14.0 H Calcium 6.9 L 7.7 L 8.3 L Magnesium 1.8 Total Bilirubin 0.4 AST 13 L ALT 15 Alkaline Phosphatase 80 Total Protein 5.4 L Albumin 2.3 L Globulin 3.1 Albumin/Globulin Ratio 0.7
[2023-07-08 11:44] LABS: Troponin I High Sensitivity 50.6 pg/mL (4.0-51.3)
[2023-07-08] MEDS: INSULIN ASPART 300 UNIT/3 ML PEN SUBQ ×3 (11:57→21:08)
[2023-07-08] MEDS: LACTATED RINGER'S SOLUTION 1,000 ML 100 ML IV (12:00)
[2023-07-08 14:27] LABS: BUN Creatinine Ratio 7.5; Calcium 8.9 mg/dL (8.5-10.1); Carbon Dioxide 26.2 mmol/L (21.0-32.0); Chloride 99 mmol/L (98-107); Estimated GFR (African America >60 (>=60); Estimated GFR (Non-African Ame >60 (>=60); Glucose 231 mg/dL (74-106); Potassium 3.2 mmol/L (3.5-5.1); Sodium 136 mmol/L (136-145)
[2023-07-08] MEDS: BENZONATATE 100 MG CAPSULE 200 MG PO (19:47)
[2023-07-08] MEDS: LEVOFLOXACIN 750 MG TABLET PO (20:02)
[2023-07-08] MEDS: INSULIN DETEMIR 300 UNIT/3 ML INSULN.PEN 50 UNIT SUBQ (21:11)
[2023-07-08] MEDS: POTASSIUM CHLORIDE 10 MEQ ER TABLET 20 MEQ PO (21:36)
[2023-07-09] VITALS (50 sets, daily range): BP systolic 125–141; BP diastolic 71–88; PULSE 87–123; RESP 0–25; TEMP 36.4; O2SAT 96
[2023-07-09 05:27] LABS: Basophils Percent Auto 0.3 % (0.2-2.0); Hemoglobin 13.1 g/dL (12.0-16.0); Immature Granulocytes Abs Auto 0.01 10^3/uL (0.00-0.03); Immature Granulocytes Pct Auto 0.3 % (0.0-0.5); Lymphocytes Absolute Auto 1.1 10^3/uL (1.2-3.8); Lymphocytes Percent Auto 37.5 % (20.5-60.0); Mean Corpuscular HGB Conc 33.6 g/dL (29.9-35.2); Mean Corpuscular Hemoglobin 28.7 pg (26.7-34.0); Mean Corpuscular Volume 85.5 fL (81.0-99.0); Mean Platelet Volume 10.4 fL (9.5-13.5); Monocytes Absolute Auto 0.5 10^3/uL (0.3-0.8); Monocytes Percent Auto 16.4 % (1.7-12.0); Neutrophils Absolute Auto 1.3 10^3/uL (1.4-6.5); Neutrophils Percent Auto 45.5 % (43.0-75.0); Platelet Count 163 10^3/uL (150-450); Red Blood Count 4.56 10^6/uL (4.20-5.40); White Blood Count 2.9 10^3/uL (4.0-11.0)
[2023-07-09 05:59] LABS: Alanine Aminotransferase 14 U/L (14-59); Albumin Globulin Ratio 0.7; Albumin Level 2.4 g/dL (3.4-5.0); Alkaline Phosphatase 84 U/L (46-116); Anion Gap 10.1; Aspartate Amino Transferase 17 U/L (15-37); BUN Creatinine Ratio 14.3; Bilirubin Total 0.4 mg/dL (0.2-1.0); Calcium 9.4 mg/dL (8.5-10.1); Carbon Dioxide 31.6 mmol/L (21.0-32.0); Chloride 99 mmol/L (98-107); Estimated GFR (African America >60 (>=60); Estimated GFR (Non-African Ame >60 (>=60); Globulin 3.5 g/dL; Glucose 163 mg/dL (74-106); Sodium 138 mmol/L (136-145); Total Protein 5.9 g/dL (6.4-8.2)
[2023-07-09 06:23] LABS: Potassium 2.7 mmol/L (3.5-5.1)
[2023-07-09] MEDS: INSULIN DETEMIR 300 UNIT/3 ML INSULN.PEN 20 UNIT SUBQ (08:31)
[2023-07-09] MEDS: MAGNESIUM OXIDE 400 MG TABLET PO (08:32)
[2023-07-09] MEDS: POTASSIUM CHLORIDE 10 MEQ ER TABLET 20 MEQ PO (08:32)
[2023-07-09] MEDS: POTASSIUM CHLORIDE 40 MEQ in 0.9 % SODIUM CHLORIDE 250 ML 67.5 MEQ IV (08:33)
--- NOTE | 2023-07-09 11:21 | P.DS_ITS ---
DS: Providers Provider Date of admission: 07/06/23 11:28 Primary care physician: Non-Staff Physician, DS: Diagnosis Discharge Diagnosis (1) Diabetic ketoacidosis: Assessment and plan: Gap closed 07/08/23 She was switched to Levemir 20 qam and 50 qhs. Her home dose is 50 q12 she admittedly does not use and is likely too high a dose for her. Patient instructed to f/u with her PCP closely in 1 week Qualifiers: Diabetes mellitus complication detail: without coma Diabetes mellitus type: type 2 Qualified Code(s): E11.10 - Type 2 diabetes mellitus with ketoacidosis without coma (2) GIORGIO (acute kidney injury): Assessment and plan: Resolved (3) Hypokalemia: Assessment and plan: Will d/c on PO potassium. Recurrent and requiring PO potassium daily. (4) Hypovolemic shock: Assessment and plan: Resolved. BP above goal and will likely need rx. (5) URTI (acute upper respiratory infection): Assessment and plan: No evidence of PNA on CXR. Will d/c on PO Levaquin. Complaints of dry cough. No resp distress. Normal lung exam DS: Summary Hospital Course Hospital Course: 53 y o female admitted for severe DKA, hypovolemic shock that required IV levophed also for BP support was treated with aggressive IV hydration, IV insulin wih close monitoring of her electrolytes, renal function and slowly improved over the course of hospital admission. Her GIORGIO resolved. Her AG closed on 07/08/23 and she was transitioned to SQ insulin. FSBS at goal Patient also reported cough on admission. W/u unremarkable and likely an URTI for which she will be treated with PO Levaquin Patient educated on importance of compliance and close follow up needed for her DKA Status at Discharge Functional status at discharge: independent ambulation Overall status at discharge: patient is progressing back to baseline Time Spent with Patient Time attestation: Total time spent providing and/or coordinating discharge services: Time spent: greater than 30 minutes Exam Constitutional Vital Signs, click to edit/add: Last Vital Signs Temp 97.6 F 07/09/23 07:21 Pulse 93 H 07/09/23 10:00 Resp 11 L 07/09/23 07:15 BP 141/71 07/09/23 07:15 Pulse Ox 96 07/09/23 06:00 O2 Del Method Room Air 07/08/23 20:15 Documenting provider has reviewed patient's vital signs: yes Common normals: no apparent distress and oriented x3 General appearance: cooperative Respiratory Common normals: normal respiratory effort and clear to auscultation bilaterally Effort & inspection: able to speak in complete sentences Auscultation: clear to auscultation bilaterally Cardio Common normals: regular rate, S1 normal heart sound and S2 normal heart sound Rate: regular rate Heart sounds: S1 normal and S2 normal GI Common normals: Normal to inspection, nondistended, normoactive bowel sounds present, soft to palpation, non-tender and no hepatosplenomegaly Palpation: soft and no hepatosplenomegaly Extremity Common normals: no clubbing, cyanosis or edema Neuro Common normals: oriented x3, moves all extremities and no focal motor deficits DS: Data Data Completed and Pending Labs on day of discharge: Labs from last 24 hours 07/09/23 07/08/23 07/08/23 04:04 14:05 05:19 WBC 2.9 L RBC 4.56 Hgb 13.1 Hct 39.0 MCV 85.5 MCH 28.7 MCHC 33.6 RDW 13.0 Plt Count 163 MPV 10.4 Neut % (Auto) 45.5 Lymph % (Auto) 37.5 [place] % (Auto) 16.4 H Eos % (Auto) 0.0 L Baso % (Auto) 0.3 Neut # (Auto) 1.3 L Lymph # (Auto) 1.1 L [place] # (Auto) 0.5 Eos # (Auto) 0.0 Baso # (Auto) 0.0 Abs Immat Gran (auto) 0.01 Imm/Tot Granulo (auto) 0.3 Sodium 138 136 Potassium 2.7 L* 3.2 L Chloride 99 99 Carbon Dioxide 31.6 26.2 Anion Gap 10.1 14.0 BUN 7.0 5.0 L Creatinine 0.49 L 0.67 Est GFR ( Amer) >60 >60 Est GFR (Non-Af Amer) >60 >60 BUN/Creatinine Ratio 14.3 7.5 Glucose 163 H 231 H Calcium 9.4 8.9 Magnesium 2.0 Total Bilirubin 0.4 AST 17 ALT 14 Alkaline Phosphatase 84 Troponin I High Sens 50.6 NT-Pro-B Natriuret Pep 333.0 Total Protein 5.9 L Albumin 2.4 L Globulin 3.5 Albumin/Globulin Ratio 0.7 Preliminary micro results at discharge 07/06/23 09:20 - Preliminary Blood NO GROWTH AT 36-48 HOURS. FINAL TO FOLLOW. 07/06/23 09:15 Blood Culture Result 1 - Preliminary Blood NO GROWTH AT 36-48 HOURS. FINAL TO FOLLOW. Discharge Plan Discharge Disposition: Home, Self-Care Condition: Fair Discharge Medications: New Levemir U-100 Insulin 100 unit/mL solution 50 unit subcut .QHS 30 Days Qty: 10 0RF Levemir U-100 Insulin 100 unit/mL solution 20 unit subcut QAM 30 Days Qty: 6 0RF levofloxacin 750 mg tablet 750 mg PO DAILY 4 Days Qty: 4 0RF benzonatate 100 mg capsule 100 mg PO BID PRN (Reason: cough) Qty: 20 0RF amlodipine [Norvasc] 5 mg tablet 5 mg PO DAILY Qty: 30 0RF potassium chloride 20 mEq tablet extended release 20 meq PO BID 30 Days Qty: 60 0RF Forms: Portal Instructions
[2023-07-09 11:53] LABS: Anion Gap 9.9; BUN Creatinine Ratio 17.7; Calcium 9.3 mg/dL (8.5-10.1); Carbon Dioxide 31.2 mmol/L (21.0-32.0); Chloride 97 mmol/L (98-107); Estimated GFR (African America >60 (>=60); Estimated GFR (Non-African Ame >60 (>=60); Glucose 406 mg/dL (74-106); Potassium 4.1 mmol/L (3.5-5.1); Sodium 134 mmol/L (136-145)
[2023-07-09] MEDS: INSULIN ASPART 300 UNIT/3 ML PEN SUBQ (12:33)
[2023-07-09] MEDS: LEVOFLOXACIN 750 MG TABLET PO (12:36)
--- NOTE | 2023-07-11 14:22 | CM.DCFOLLOWU ---
Person spoke with: Casandra How are you feeling? Still weak How is your pain? No pain Did you understand your discharge instructions? Yes Do you have any questions about your discharge instructions? No Were you given any prescriptions at discharge? Yes Were you able to get your prescriptions filled? No right away d/t [place]. Got them filled today Do you understand how to take your medications as ordered? Yes Do you have any questions about your follow up appointment and do you plan to keep your follow up appointment? Will call today for an appointment Is there anything else that you would like to discuss? No Questions/Comments/Concerns/Other:
== END 2023-07-09 13:16 | disposition home or self-care (01) | DRG 420 ==
LOC: ER 10:42 → ICU 11:42
PROVIDERS: Family Medicine; Admitting Provider Internal Medicine; Emergency Provider Emergency Medicine; Visit Provider Internal Medicine
DX: E11.10 Type 2 diabetes mellitus with ketoacidosis without coma (principal); E86.0 Dehydration; E87.1 Hypo-osmolality and hyponatremia; N17.9 Acute kidney failure, unspecified; R57.1 Hypovolemic shock; D75.1 Secondary polycythemia; T38.3X6A Underdosing of insulin and oral hypoglycemic [antidiabetic] drugs, initial encounter; E87.6 Hypokalemia; E44.0 Moderate protein-calorie malnutrition; E83.42 Hypomagnesemia; J06.9 Acute upper respiratory infection, unspecified; Z68.27 Body mass index [BMI] 27.0-27.9, adult; Z91.148 Patient's other noncompliance with medication regimen for other reason; Z91.128 Patient's intentional underdosing of medication regimen for other reason
CPT/HCPCS: 36415; 36569; 36592; 71045; 80048; 80053; 80076; 81001; 82009; 82150; 82800; 82948; 83036; 83605; 83690; 83735; 83880; 84436; 84443; 84481; 84484; 85025; 87040; 87070; 87086; 87493; 87507; 93005; 94761; 96361; 96365; 96366; 96367; 96368; 96375; 96376; 99285; C1887; J3480

== ENCOUNTER 2023-07-15 16:22 | Emergency (ER) | payer OTHER, SELFPAY ==
[2023-07-15] VITALS (32 sets, daily range): BP systolic 80–146; BP diastolic 56–86; PULSE 91–109; RESP 15–26; TEMP 36.9; O2SAT 95–100; BMI 26.9
--- OUTSIDE RECORDS SUMMARY | 2023-07-15 16:30 | XMS_ITS | CCD ---
Author Name Unknown Address [address] [place] [address] Organization [facility] Care Team Providers Care Television Operator Name Role Phone VEE BARRIGA Referring Unavailable BACK, ROVERTO Primary Care Unavailable VEE BARRIGA Referring Unavailable BACK, ROVERTO Primary Care Unavailable VEE BARRIGA Referring Unavailable BACK, ROVERTO Primary Care Unavailable Back, Roverto Primary Care Provider Unavailable Primary Care Provider Unavailabl e Kavita Meier CNP Primary Care Provider HardeepKavita wylie CNP Primary Care Provider [phone] HardeepKavita wylie CNP Primary Care Provider [phone] Hardeep TONY, Kavita Primary Care Provider [phone] Unavailable Primary Care Provider Unavailabl e MANISH SHEA MD Attending Unavailable MANISH SHEA Referring Unavailable DARMMANISH CHONG Referring Unavailable NEIL, KEAGAN S Referring Unavailable ANNA, SAFIA D Referring Unavailable ANNA, SAFIA D Referring Unavailable TALITA RAE Attending Unavailable MANISH SHEA Referring Unavailable ANNA, SAFIA D Referring Unavailable HARDEEP, KAVITA Primary Care Unavailable LUCY, CECILIO Admitting Unavailable LUCY, CECILIO Attending Unavailable HARDEEP, KAVITA Primary Care Unavailable HARDEEP, KAVITA Primary Care Unavailable HARDEEP, KAVITA Primary Care Unavailable HARDEEP, KAVITA Primary Care Unavailable HARDEEP, KAVITA Referring Unavailable DARMODYMANISH Attending Unavailable HARDEEP, KAVITA Primary Care Unavailable HARDEEP, KAVITA Referring Unavailable DARMODYMANISH Attending Unavailable HARDEEP, KAVITA Referring Unavailable HARDEEP, KAVITA Primary Care Unavailable ANNA, SAFIA Attending Unavailable HARDEEP, KAVITA Referring Unavailable HARDEEP, KAVITA Primary Care Unavailable ANNA, SAFIA Attending Unavailable HARDEEP, KAVITA Primary Care Unavailable KAVITA MEIER Referring Unavailable MANISH SHEA Attending Unavailable Allergies Allergy Classification Reported Allergen(s) Allergy Type Date of Onset Reaction(s) Facility (13 sources) Penicillins Propensity to adverse reactions to drug 1 Other (See Comments) [place], [place] (15 sources) Pravastatin Drug Allergy 1 [place], [place] (6 sources) Hmg-Coa Reductase Inhibitors (Statins) Allergy to substance 1 [facility] Work Phone: (6 sources) house dust allergenic extract Drug Allergy 1 [facility] Work Phone: (6 sources) Penicillins (Antibiotic) Allergy to substance 1 [facility] Work Phone: (2 sources) Penicillins Propensity to adverse reactions to drug 1 Other (See Comments) [facility] Work Phone: Medications Current Medications Medication Drug Class(es) Dates Sig (Normalized) Sig (Original) *CPAP SUPPLIES Miscellaneous (1 source) Start: 06-02-2021 *CPAP SUPPLIES Miscellaneous 06/02/2021 Provider: Kavita Meier OBJECTIVE C DEVELOPER [id number] 200 actuat albuterol 0.09 mg/actuat metered dose inhaler (5 sources) beta2-Adrenergic Agonist Start: 09-06-2017 End: 04-16-2021 take 2 puff(s) by inhalation every six hours as needed for wheezing 2 puff, Inhalation, EVERY 6 HOURS PRN, Wheezing, Shortness of Breath, Starting on Mon04/13/21 at 2212 Start: 09-06-2017 take 2 puff(s) by in halation every six hours as needed for wheezing albuterol sulfate HFA (VENTOLIN HFA) 108 (90 Base) MCG/ACT inhaler Indications: Mild intermittent asthma, unspecified whether complicated Inhale 2 puffs into the lungs every 6 hours as needed for Wheezing 1 Inhaler 3 09/06/2017 Active aspirin 81 mg delayed release oral tablet (20 sources) Platelet Aggregation Inhibitor, Nonsteroidal Anti-inflammatory Drug Start: 04-21-2021 End: 06-22-2022 take 1 tablet by mouth once daily ASPIRIN LOW DOSE 81 MG EC tablet TAKE 1 TABLET BY MOUTH DAILY 0 01/31/2022 Active Start: 11-01-2018 End: 04-16-2021 take 81 mg by mouth once daily 81 mg, Oral, DAILY, Fir st dose on Mon04/14/21 at 0900 Do not crush or break. cetirizine hydrochloride 10 mg oral tablet (4 sources) Histamine-1 Receptor Antagonist Start: 09-06-2017 End: 04-16-2021 take 1 tablet by mouth once daily cetirizine (ZYRTEC) 10 MG tablet Take 1 tablet by mouth daily 90 tablet 1 09/06/2017 04/16/2021 Discontinued (Stop Taking at Discharge) cholecalciferol 0.025 mg oral tablet (11 sources) Vitamin D Start: 04-14-2021 take 2000 [IU] by mouth once daily 2,000 Units, Oral, DAILY, First dose on Mon04/14/21 at 0900 Start: 10-17-2018 take 1 capsule by mo [facility] once daily Cholecalciferol (VITAMIN D3) 2000 units CAPS Indications: Vitamin D deficiency Take 1 capsule by mouth daily 30 capsule 11 10/17/2018 Active Continuous Blood Gluc Receiv er (FreeStyle Titus 2 [place] Systm) Device (5 sources) Start: 08-03-2021 Continuous Blood Gluc Sensor (FreeStyle Titus 2 Sensor Systm) Misc (8 sources) Start: 04-07-2022 Start: 02-03-2022 End: 04-07-2022 Start: 02-03-2022 Start: 12-09-2021 End: 02-03-2022 Start: 12-09-2021 Start: 08-03-2021 End: 12-09-2021 Start: 08-03-2021 Continuous Blood Gluc Sensor (FREESTYLE TITUS 2 SENSOR) MISC (4 sources) Start: 01-31-2022 Continuous Blood Gluc Sensor (FREESTYLE TITUS 2 SENSOR) MISC USE DIRECTED 0 01/31/2022 Active docosahexaenoic acid 120 mg / eicosapentaenoic acid 180 mg oral capsule (4 sources) Start: 09-06-2018 End: 04-16-2021 take 2 capsules by mouth once daily [place]-3 Fatty Acids (FISH OIL) 1000 MG CAPS TAKE 2 CAPSULES BY MOUTH EVERY DAY 180 capsule 1 09/06/2018 04/16/2021 Discontinued (Stop Taking at Discharge) doxycycline hyclate 100 mg oral tablet (1 source) Tetracycline-c lass Drug Start: 07-05-2022 End: 07-12-2022 take 1 tablet by mouth twice daily doxycycline hyclate (VIBRA-TABS) 100 MG tablet Take 1 tablet by mouth 2 times daily for 7 days 14 tablet 0 07/05/2022 07/12/2022 Active 0.5 ml dulaglutide 3 mg/ml auto-injector (12 sources) GLP-1 Receptor Agonist Start: 04-07-2022 inject 0.5 mL by subcutaneous injection every week Dulaglutide (Trulicity) 1.5 MG/0.5ML Solution Pen-injector injection Inject 0.5 mL under the skin once a week. 2 mL 3 04/07/2022 Active Start: 02-03-2022 inject 0.5 mL by sub cutaneous injection every week Dulaglutide (Trulicity) 1.5 MG/0.5ML Solution Pen-injector injection Inject 0.5 mL under the skin once a week. 2 mL 3 02/03/2022 Active Start: 12-09-2021 End: 04-07-2022 inject 0.75 mg by subcutaneous injection every week TRULICITY 0.75 MG/0.5ML SOPN INJECT 0.75mg under the skin once a week. 0 02/02/2022 Active 0.4 ml enoxaparin sodium 100 mg/ml prefilled syringe (1 source) Low Molecular Weight Heparin Start: 04-14-2021 inject 40 mg by subcutaneous injection once daily 40 mg, SubCUTAneous, DAILY, First dose on Mon04/14/21 at 0900 fluticasone propionate 0.05 mg/actuat metered dose nasal spray (4 sources) Corticosteroid Start: 09-06-2017 End: 04-16-2021 fluticasone (FLONASE) 50 MCG/ACT nasal spray 2 sprays by Nasal route daily 1 Bottle 3 09/06/2017 04/16/2021 Discontinued (Stop Taking at Discharge) 0.2 ml glucagon 5 mg/ml auto-injector (6 sources) Antihypoglycemic Agent Start: 09-30-2021 Glucagon (Gvoke HypoPen 2-Pack) 1 MG/0.2ML Solution Auto-injector Inject 1 mg under the skin As directed. To be used as directed for severe hypoglycemia. 0.4 mL 1 09/30/2021 Active Start: 04-14-2021 glucagon (rDNA ) injection 1 mg 150 ml glucose 50 mg/ml injection (4 sources) Start: 04-14-2021 glucose (GLUTO SE) 40 % oral gel 15 g Start: 04-14-2021 dextrose 50 % IV solution Start: 04-14-2021 dextrose 5 % s olution Start: 04-13-2021 12.5 g, IntraV ENous, PRN, Low blood sugar, Starting on Mon04/13/21 at 2212 For blood glucose level less than 70 mg/dL. Check blood glucose every 15 minutes and repeat above if blood glucose is less than 70 mg/dL. glucose monitoring (FREESTYLE FREEDOM) kit (7 sources) Start: 04-16-2021 glucose monito ring (FREESTYLE FREEDOM) kit 1 kit by Does not apply route daily 1 kit 0 04/16/2021 Active insulin lispro (HUMALOG) 100 UNIT/ML injection vial (4 sources) Start: 04-16-2021 insulin lispro (HUMALOG) 100 UNIT/ML injection vial 0 to 18 units per sliding scale. 5 pen 3 04/16/2021 Active lidocaine 0.04 mg/mg medicated patch (1 source) Antiarrhythmic, Amide Local Anesthetic Start: 04-14-2021 lidocaine 4 % external patch 1 patch 3 ml liraglutide 6 mg/ml pen injector (4 sources) GLP-1 Receptor Agonist Start: 08-10-2018 End: 04-16-2021 Liraglutide (VICTOZA) 18 MG/3ML SOPN SC injection Inject 1.8 mg into the skin daily 3 pen 3 08/10/2018 04/16/2021 Discontinued (Stop Taking at Discharge) lisinopril 2.5 mg oral tablet (18 sources) Angiotensin Converting Enzyme Inhibitor Start: 04-16-2021 End: 02-03-2022 take 1 tablet by mouth once daily lisinopril (PRINIVIL;ZESTRIL) 2.5 MG tablet Take 1 tablet by mouth daily 30 tablet 3 04/16/2021 Active Start: 04-15-2021 lisinopril (MA INIVIL;ZESTRIL) tablet 2.5 mg Start: 04-14-2021 End: 04-14-2021 lisinopril (PRINIVIL;ZESTRIL ) tablet 10 mg 100 ml magnesium sulfate 10 mg/ml injection (1 source) Start: 04-13-2021 1,000 mg, IntraVENous, at 10 0 mL/hr, Administer over 1 Hours, PRN, Other, Magnesium IV Replacement, Starting on Mon04/13/21 at 2212 Mg Level Mg Replacement Action 1.4 to 1.6 1 gram IVPB x 2 doses (2 grams total) 1.0 to 1.3 1 gram IVPB x 4 doses (4 grams total) Below 1.0 CALL PHYSICIAN and 1 gram IVPB x 4 doses (4 grams total) Infuse at 1 gram/hr. Repeat Mg level next AM. Not for use in patients with CrCl less than 30 mL/min. 24 hr metFORMIN hydrochloride 500 mg extended release oral tablet (20 sources) Biguanide Start: 05-24-2021 End: 04-07-2022 take 2 tablets by mouth twice daily metFORMIN-XR 500 MG Tab SR 24 HR Indications: Uncontrolled type 2 diabetes mellitus with hyperglycemia Take 2 tablets by mouth 2 times daily. 120 tablet 3 04/07/2022 Active Start: 04-21-2021 End: 06-02-2021 take 1 tablet by mouth every twenty-four hours metFORMIN HCl ER 500 MG Oral Tablet Extended Release 24 Hour 06/02/2021 Provider: Kavita Meier CNP Start: 04-21-2021 End: 04-21-2021 take 1 tablet by mouth every twenty-four hours metFORMIN HCl ER (MOD) 1000 MG Oral Tablet Extended Release 24 Hour 04/21/2021 - 04/21/2021 Provider: Start: 04-16-2021 take 1 tablet by phuong once daily at breakfast metFORMIN (GLUCOPHAGE-XR) 500 MG extended release tablet Indications: Type 2 diabetes mellitus with complication, without long-term current use of insulin (HCC) Take 1 tablet by mouth daily (with breakfast) 270 tablet 1 04/16/2021 Active Start: 10-04-2018 End: 04-16-2021 take 3 tablets by mouth once daily at breakfast metFORMIN (GLUCOPHAGE-XR) 500 MG extended release tablet Indications: Type 2 diabetes mellitus with complication, without long-term current use of insulin (HCC) TAKE 3 TABLETS BY MOUTH EVERY DAY with BREAKFAST 270 tablet 1 10/04/2018 04/16/2021 Discontinued (REORDER) PARoxetine hydrochloride 10 mg oral tablet (4 sources) Serotonin Reuptake Inhibitor Start: 10-23-2018 End: 04-16-2021 take 1 tablet by mouth once daily PARoxetine (PAXIL) 10 MG tablet Indications: Hot flashes due to menopause Take 1 tablet by mouth daily 30 tablet 3 10/23/2018 04/16/2021 Discontinued (Stop Taking at Discharge) polyethylene glycol 3350 [id number] mg powder for oral solution (1 source) Osmotic Laxative Start: 04-13-2021 17 g, Oral, DAILY PRN, Constipation, Starting on Mon04/13/21 at 2212 First line therapy for constipation Probiotic Acidophilus (FLORANEX) TABS (1 source) Start: 02-22-2022 End: 03-24-2022 take 1 tablet by mouth in the morning Probiotic Acidophilus (FLORANEX) TABS Indications: Dysuria , Acute cystitis with hematuria Take 1 tablet by mouth in the morning. 30 tablet 0 02/22/2022 03/24/2022 Active sulfamethoxazole 800 mg / trimethoprim 160 mg oral tablet (4 sources) Dihydrofolate Reductase Inhibitor Antibacterial, Sulfonamide Antimicrobial Start: 02-22-2022 End: 03-01-2022 take 1 tablet by mouth once in the morning, then take 1 tablet by mouth once at bedtime sulfamethoxazole- trimethoprim (BACTRIM DS) 800-160 MG per tablet Indications: Acute cystitis with hematuria Take 1 tablet by mouth in the morning and 1 tablet before bedtime. Do all this for 7 days. 14 tablet 0 02/22/2022 03/01/2022 Active Start: 02-07-2020 End: 02-14-2020 take 1 tablet by mouth twice daily sulfamethoxazole-trimethoprim (BACTRIM DS;SEPTRA DS) 800-160 MG per tablet Indications: Acute cystitis without hematuria Take 1 tablet by mouth 2 times daily for 7 days 14 tablet 0 02/07/2020 02/14/2020 Active vitamin b6 50 mg oral tablet (11 sources) Start: 09-06-2018 take 1 tablet by mouth once daily vitamin B-6 (PYRIDOXINE) 50 MG tablet TAKE 1 TABLET BY MOUTH EVERY DAY 30 tablet 5 09/06/2018 Active Completed/Discontinued Medications Medication Drug Class(es) Dates Sig (Normalized) Sig (Original) acetaminophen 325 mg oral tablet (1 source) Start: 06-21-2022 End: 06-22-2022 take 1 tablet by mouth every six hours as needed acetaminophen (TYLENOL) tablet 650 mg calcium chloride 0.0014 meq/ml / potassium chloride 0.004 meq/ml / sodium chloride 0.103 meq/ml / sodium lactate 0.028 meq/ml injectable solution (3 sources) Start: 06-21-2022 End: 06-22-2022 lactated ringers IV solution 1,000 mL dexamethasone 1 mg oral tablet (2 sources) Corticosteroid Start: 10-28-2021 End: 12-09-2021 take 1 tablet by mouth at bedtime Dexamethasone 1 MG tablet Take 1 tablet by mouth at bedtime. Must take at 11PM prior to blood draw at 7-8AM the next morning 1 tablet 0 10/28/2021 12/09/2021 Discontinued empagliflozin 10 mg oral tablet (4 sources) Sodium-Glucose Cotransporter 2 Inhibitor Start: 12-09-2021 End: 04-07-2022 take 1 tablet by mouth once daily before breakfast Empagliflozin (Jardiance) 10 MG tablet Indications: Uncontrolled type 2 diabetes mellitus with hyperglycemia Take 1 tablet by mouth every morning before breakfast. 30 tablet 3 02/03/2022 04/07/2022 Discontinued fluconazole 150 mg oral tablet (1 source) Azole Antifungal Start: 12-15-2021 End: 02-03-2022 fluconazole 150 MG tablet Take 1 tablet by mouth as needed (yeast infection). 1 tablet 1 12/15/2021 02/03/2022 Discontinued glipiZIDE 5 mg oral tablet (11 sources) Sulfonylurea Start: 06-22-2022 End: 06-22-2022 take 10 mg by mouth twice daily 10 mg, Oral, 2 TIMES DAILY, First dose on Mon06/22/22 at 1100, Until Discontinued Start: 02-03-2022 End: 04-07-2023 take 1 tablet by mouth in the morning glipiZIDE (GLUCOTROL) 10 MG tablet Take 10 mg by mouth in the morning and 10 mg before bedtime. 0 02/03/2022 02/03/2023 Active Start: 12-09-2021 End: 12-09-2022 take 1 tablet by mouth twice daily glipiZIDE 5 MG tablet regular release Take 1 tablet by mouth 2 times daily. 60 tablet 3 12/09/2021 02/03/2022 Discontinued (Reorder) 250 ml glucose 50 mg/ml / sodium chloride 4.5 mg/ml injection (2 sources) Start: 04-13-2021 End: 04-14-2021 dextrose 5 % and 0.45 % sodium chloride infusion 3 ml insulin glargine 100 unt/ml pen injector (20 sources) Insulin Analog Start: 10-28-2021 End: 02-03-2022 insulin glargine (Lantus SoloStar) 100 UNIT/ML Solution Pen-injector injection Inject 60 Units under the skin 2 times daily. 18 mL 3 10/28/2021 02/03/2022 Discontinued Start: 04-21-2021 End: 06-02-2021 Lantus SoloStar 100 UNIT/ML Subcutaneous Solution Pen-injector 06/02/2021 Provider: Kavita Meier CNP Start: 04-17-2021 insulin glargi ne (LANTUS) injection vial 30 Units Start: 04-16-2021 insulin glargi ne (LANTUS) injection vial 50 Units Start: 04-16-2021 insulin glargi ne (LANTUS SOLOSTAR) 100 UNIT/ML injection pen Inject 40 Units into the skin 2 times daily 10 pen 3 04/16/2021 Active Start: 04-16-2021 End: 10-28-2021 insulin glargine (Lantus Melissa oStar) 100 UNIT/ML Solution Pen-injector injection Inject 40 Units under the skin 2 times daily. 0 04/16/2021 10/28/2021 Discontinued (Reorder) Start: 04-15-2021 End: 04-16-2021 insulin glargine (LANTUS) in jection vial 20 Units Start: 04-14-2021 End: 04-15-2021 insulin glargine (LANTUS) in jection vial 40 Units 3 ml insulin lispro 100 unt/ml pen injector (20 sources) Insulin Analog Start: 10-28-2021 End: 04-07-2022 Insulin Lispro, 1 Unit Dial, (HumaLOG KwikPen) 100 UNIT/ML Solution Pen-injector To use 20 units plus sliding scale 3 times per day with meals. Use less than 80 units daily. 21 mL 3 10/28/2021 04/07/2022 Discontinued Start: 09-30-2021 End: 10-28-2021 Insulin Lispro, 1 Unit Dial, (HumaLOG KwikPen) 100 UNIT/ML Solution Pen-injector To use 10 units plus sliding scale 3 times per day with meals. Use less than 60 units daily. 18 mL 3 09/30/2021 10/28/2021 Discontinued (Reorder) Start: 06-14-2021 Insulin Lispro (1 Unit Dial) 100 UNIT/ML Subcutaneous Solution Pen-injector 06/14/2021 Provider: Kavita Meier CNP Start: 04-21-2021 End: 06-14-2021 Insulin Lispro 100 UNIT/ML S ubcutaneous Solution 06/02/2021 - 06/14/2021 Provider: Kavita Meier CNP Start: 04-16-2021 insulin lispro (HUMALOG) 100 UNIT/ML injection vial 0 to 18 units per sliding scale. 5 pen 3 04/16/2021 Active Start: 04-14-2021 End: 04-15-2021 insulin lispro (HUMALOG) inj ection vial 0-9 Units insulin regular (HUMULIN R;NOVOLIN R) 100 Units in sodium chloride 0.9 % 100 mL infusion (2 sources) Start: 04-13-2021 End: 04-14-2021 inject 0.1 [IU] intravenously every hour 0.1 Units/kg/hr 84.8 kg (8.48 mL/hr, rounded to 8.5 mL/hr), IntraVENous, at 8.5 mL/hr, CONTINUOUS, Starting on Mon04/13/21 at 2230 Initial DKA Insulin Infusion Protocol: - If any blood glucose (BG) increases, then increase infusion by 50% of current rate - If BG decrease is less than 50 mg/dL per hour, increase infusion by 50% of current rate - If BG decrease is between 50-75 mg/dL per hour, then make no change to infusion rate - If BG decrease is between 76-100 mg/dL per hour, decrease infusion by 50% of current rate - If BG decrease is greater than 100 mg/dL per hour, decrease infusion by 50%, repeat BG, and call provider - When BG < 250 mg/dL, switch to DKA Multiplier Insulin Infusion Protocol (DO NOT switch back to above protocol if the BG subsequently goes above 250 mg/dL again). - REMINDER TO CHANGE IV FLUIDS - When BG 250 mg/dL or below, DISCONTINUE saline IV fluid using Per Protocol order mode and start using the dextrose containing IV fluid order previously placed as CONTINUOUS PRN. DO NOT restart saline infusion if subsequent BG returns above 250 mg/dL. DKA Multiplier Insulin Infusion Protocol: Low BG target: 150 mg/dL and High BG target: 200 mg/dL Begin infusion rate by the following formula: (BG - 60) x 0.03 = insulin units per hour but DO NOT increase the insulin rate any greater than three times the current rate. Adjust the multiplier in the above formula as follows: - If BG is greater than 200 mg/dL, increase multiplier by 0.01 - If BG is less than 150 md/dL, decrease multiplier by 0.01 - If BG is between 150 - 200 mg/dL, make no change in multiplier - Recalculate insulin dose with every BG drawn, even if the multiplier does not change - Hold insulin infusion if BG less than 80 mg/dL, if BG less than 70 mg/dL follow hypoglycemia treatment orders, continue to check BG as ordered, and restart insulin infusion if and when BG increases back into goal range while decreasing last multiplier by 0.01 Notify provider if: * BG is less than 80 * If BG less than 200 mg/dL AND when both of the following criteria are met on two consecutive BMPs: Anion gap normalized (less than or equal to 12), serum bicarb (HCO3) greater than 15, call provider for conversion from insulin infusion to subcutaneous insulin and discontinue insulin infusion 2 hours after the first subcutaneous injection of insulin. * If multiplier less than 0.01 results in insulin rate of 0 units/hr for clarification on insulin infusion rate and/or IV fluid adjustments. Maintain current insulin infusion rate prior to notifying physician unless BG less than 80 mg/dL. Start: 04-13-2021 End: 04-13-2021 insulin regular (HUMULIN R;N OVOLIN R) 100 Units in sodium chloride 0.9 % 100 mL infusion Insulin regular (HUMULIN R;NOVOLIN R) injection (1 source) Start: 06-22-2022 End: 06-22-2022 Insulin regular (HUMULIN R;NOVOLIN R) injection insulin, regular, human 100 unt/ml injectable solution (1 source) Insulin Start: 04-13-2021 End: 04-13-2021 insulin regular (HUMULIN R;NOVOLIN R) injection 10 Units Start: 04-13-2021 End: 04-13-2021 insulin regular (HUMULIN R;N OVOLIN R) injection 10 Units 1 ml ketorolac tromethamine 30 mg/ml cartridge (1 source) Nonsteroidal Anti-inflammatory Drug, Cyclooxygenase Inhibitor Start: 04-13-2021 End: 04-13-2021 ketorolac (TORADOL) injection 30 mg 2 ml ondansetron 2 mg/ml injection (4 sources) Serotonin-3 Receptor Antagonist Start: 06-21-2022 End: 06-22-2022 take 4 mg intravenously every six hours as needed ondansetron 4mg/2ml (ZOFRAN) injection 4 mg Start: 04-13-2021 End: 04-13-2021 ondansetron (ZOFRAN) injecti on 4 mg Start: 04-13-2021 End: 04-13-2021 ondansetron (ZOFRAN) injecti on 4 mg Start: 04-13-2021 End: 04-13-2021 ondansetron (ZOFRAN-ODT) dis integrating tablet 4 mg pioglitazone 15 mg oral tablet (13 sources) Peroxisome Proliferator Receptor alpha Agonist, Peroxisome Proliferator Receptor gamma Agonist, Thiazolidinedione Start: 06-22-2022 End: 06-22-2022 take 30 mg by mouth once daily 30 mg, Oral, DAILY, First dose on Mon06/22/22 at 1130, Until Discontinued Start: 08-17-2021 End: 04-07-2022 take 1 tablet by mouth once daily pioglitazone (ACTOS) 30 MG tablet TAKE 1 TABLET BY MOUTH DAILY 0 01/31/2022 Active potassium bicarbonate 25 meq effervescent oral tablet (1 source) Start: 06-22-2022 End: 06-22-2022 potassium bicarbonate (EFFER -K) effervescent tablet 50 mEq potassium chloride 10 meq extended release oral tablet (4 sources) Start: 04-16-2021 End: 04-16-2021 potassium chloride (KLOR-CON ) extended release tablet 40 mEq Start: 04-15-2021 End: 04-15-2021 potassium chloride (KLOR-CON ) extended release tablet 20 mEq Start: 04-15-2021 End: 04-15-2021 potassium chloride (KLOR-CON ) extended release tablet 20 mEq Start: 04-13-2021 End: 04-15-2021 10 mEq, IntraVENous, at 100 mL/hr, PRN, Potassium IV Replacement, Starting on Mon04/13/21 at 2212 Above 5.2 No dose 4.3 to 5.2 10 mEq IVPB x 2 doses (20 mEq total) 3.4 to 4.2 10 mEq IVPB x 3 doses (30 mEq total) Below 3.4 10 mEq IVPB x 4 doses (40 mEq total) Infuse at 10 mEq/hr. Can be administered either through peripheral IV or central IV. 1000 ml potassium chloride 0 .02 meq/ml / sodium chloride 9 mg/ml injection (3 sources) Start: 06-22-2022 End: 06-22-2022 potassium chloride 40 mEq in 0.9% sodium chloride 500 ml IVPB Start: 04-14-2021 End: 04-15-2021 0.9% NaCl with KCl 20 mEq in fusion potassium phosphate 155 mg / sodium phosphate, dibasic 852 mg / sodium phosphate, monobasic 130 mg oral tablet (1 source) Start: 04-15-2021 End: 04-15-2021 phosphorus (K PHOS NEUTRAL) tablet 1 tablet potassium phosphates 30 mmol in sodium chloride 0.9%, with overfill 535 mL (total volume) IVPB (1 source) Start: 06-22-2022 End: 06-22-2022 potassium phosphates 30 mmol in sodium chloride 0.9%, with overfill 535 mL (total volume) IVPB 50 ml sodium chloride 9 mg/m l injection (5 sources) Start: 07-05-2022 End: 07-05-2022 0.9 % sodium chloride bolus Start: 06-21-2022 End: 06-22-2022 sodium chloride 0.9% IV solu tion Start: 06-21-2022 End: 06-21-2022 sodium chloride 0.9% IV solu tion 1,000 mL Start: 04-13-2021 End: 04-13-2021 0.9 % sodium chloride bolus 5 ml sodium phosphate, dibas ic 142 mg/ml / sodium phosphate, monobasic 276 mg/ml injection (1 source) Start: 04-14-2021 End: 04-14-2021 sodium phosphates 15 MMOLE/5 ML injection Problems Active Problems Problem Classification Problem Date Documented Date Episodic/Chronic Asthma (10 sources) Asthma; Translations: [Unspecified asthma, uncomplicated] 10-13-2010 Chronic Calculus of urinary tract (4 sources) Renal colic; Translations: [Kidney stone] Episodic Diabetes mellitus with complications (20 sources) Diabetic ketoacidosis without coma; Translations: [Diabetes mellitus due to underlying condition with ketoacidosis without coma] Onset: 04-13-2021 Chronic Diabetes mellitus without complication (20 sources) Diabetes mellitus; Translations: [Type 2 diabetes mellitus without complications] Onset: 04-21-2021 10-13-2010 Chronic Disorders of lipid metabolism (17 sources) Hyperlipidemia; Translations: [Hyperlipidemia, unspecified] Onset: 08-17-2021 10-13-2010 Chronic Fluid and electrolyte disorders (5 sources) Metabolic acidosis; Translations: [Metabolic acidosis] Onset: 06-22-2022 Episodic Other endocrine disorders (1 source) Hypercortisolism; 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, unspecified] Chronic Other endocrine disorders (2 sources) Alisia's syndrome, unspecified; 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, 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 Other nutritional; endocrine; and metabolic disorders (3 sources) Finding of body mass index; Translations: [Body mass index (observable entity)] Onset: 05-18-2021 Chronic Other nutritional; endocrine; and metabolic disorders (10 sources) Obese class I; Translations: [Obesity, unspecified] Onset: 08-03-2021 Chronic Other nutritional; endocrine; and metabolic disorders (6 sources) Finding of body mass index; Translations: [Body mass index (observable entity)] Onset: 04-21-2021 Episodic Other upper respiratory infections (2 sources) Acute sinusitis; Translations: [Acute sinusitis, unspecified] Onset: 07-05-2022 Episodic Residual codes; unclassified (1 source) Sleep apnea; Translations: [Sleep apnea, unspecified] Onset: 06-02-2021 Chronic Residual codes; unclassified (7 sources) Blood group A Rh(D) positive; Translations: [Type A blood, Rh positive] 10-13-2010 Episodic Residual codes; unclassified (3 sources) Patient noncompliance - general; Translations: [Medical non-compliance] Onset: 06-22-2022 Episodic Unclassified (3 sources) Blood group A Rh(D) positive; Translations: [Blood type A+] 10-13-2010 Unclassified (1 source) Patient's noncompliance with other medical treatment and regimen due to unspecified reason; Translations: [Patient's noncompliance with other medical treatment and regimen due to unspecified reason] Onset: 06-22-2022 Unclassified (1 source) Acidosis, unspecified; Translations: [Acidosis, unspecified] Onset: 06-22-2022 Past or Other Problems Problem Classification Problem Date Documented Date Episodic/Chronic Genitourinary symptoms and ill-defined conditions (2 sources) Dysuria; Translations: [Dysuria] Onset: 02-22-2022 Episodic Other screening for suspected conditions (not mental disorders or infectious disease) (10 sources) Electrocardiogram abnormal; Translations: [Abnormal electrocardiogram [ECG] [EKG]] Onset: 08-14-2012 Resolved: 10-21-2018 10-21-2018 Episodic Other upper respiratory disease (10 sources) Allergic rhinitis; Translations: [Allergic rhinitis, unspecified] Resolved: 10-21-2018 10-21-2018 Chronic Substance-related disorders (10 sources) Nicotine dependence; Translations: [Nicotine dependence, unspecified, uncomplicated] Onset: 06-20-2012 Resolved: 10-21-2018 10-21-2018 Chronic Unclassified (3 sources) Patient encounter status; Translations: [Pre-op testing] Resolved: 02-27-2017 02-27-2017 Unclassified (1 source) Patient's noncompliance with other medical treatment and regimen due to unspecified reason; Translations: [Patient's noncompliance with other medical treatment and regimen due to unspecified reason] Onset: 06-21-2022 Unclassified (1 source) Acidosis, unspecified; Translations: [Acidosis, unspecified] Onset: 06-21-2022 Urinary tract infections (2 sources) Acute cystitis; Translations: [Acute cystitis with hematuria] Onset: 02-22-2022 Episodic Viral infection (10 sources) Condyloma acuminatum; Translations: [Anogenital (venereal) warts] Onset: 10-17-2012 Resolved: 10-21-2018 10-21-2018 Episodic Results Test Name Value Interpretation Reference Range Facility Glucose, Whole Bloodon 07-05 Glucose [Mass/Vol] 350 mg/dL High 65 - 99 mg/dL [facility] Interpretation and review of laboratory results Abnormal [facility] CBC with Auto Differentialon 07-04-2022 Absolute Eos # 0.10 [facility] Absolute Lymph # 0.80 Low [facility] Absolute [place] # 0.60 [facility] RS [facility] Basophils (Bld) [#/Vol] 0.00 10*3/uL [facility] Basophils/100 WBC (Bld) 1 % 0 - 2 % B ON [facility] Differential Type YES [facility] Eosinophils/100 WBC (Bld) 2 % 0 - 5 % [facility] Hematocrit (Bld) [Volume fraction] 43.2 % 36 - 46 % [facility] Hemoglobin (Bld) [Mass/Vol] 14.2 g/dL 12.0 - 16.0 g/dL [facility] Interpretation and review of laboratory results Abnormal [facility] Lymphocytes/100 WBC (Bld) 14 % Low 15 - 40 % [facility] MCH (RBC) [Entitic mass] 28.3 pg 26 - 34 pg [facility] MCHC (RBC) [Mass/Vol] 32.8 g/dL 31 - 37 g/dL B ON [facility] MCV (RBC) [Entitic vol] 86.3 fL 80 - 100 fL [facility] Monocytes/100 WBC (Bld) 11 % High 4 - 8 % B ON [facility] Platelet distribution width (Bld) [Ratio] 13.4 % 12.1 - 15.2 % [facility] Platelets (Bld) [#/Vol] 382 10*3/uL [facility] RBC (Bld) [#/Vol] 5.01 10*6/uL 4.0 - 5.2 m/uL [facility] Segmented neutrophils/100 WBC (Bld) 72 % 47 - 75 % [facility] Segs Absolute 4.20 [facility] WBC (Bld) [#/Vol] 5.8 10*3/uL [facility] CBC with Diffon 07-04-2022 Abs. Basophil 0.00 k/uL Normal 0.0-0.2 [facility] Comment on above: Performed By: #### L IPR, GLYHGB, URNMAB #### [place] [phone] Customer Service Advisor: Jin Louise MD #### DEA KEVIN ZFAST #### [facility] [address] [place] [address] Customer Service Advisor: Miller Shirley MD Abs.Neutrophil (Seg) 4.20 k/uL Normal 2.5-7.0 [facility] Comment on above: Performed By: #### L IPR, GLYHGB, URNMAB #### [facility] [address] [place], [place] [phone] Customer Service Advisor: Jin Louise MD #### DEA KEVIN, ZFAST #### [facility] [address] [place] [address] Customer Service Advisor: Miller Shirley MD Auto Diff Performed YES Normal [facility] Comment on above: Performed By: #### L IPR, GLYHGB, URNMAB #### [address] [address] Customer Service Advisor: Jin Louise MD #### CDP, CP, ZFAST #### [facility] [address] [place] [phone] Customer Service Advisor: Miller Shirley MD Basophils/100 WBC (Bld) 1 % Normal 0-2 [facility] Comment on above: Performed By: #### L IPR, GLYHGB, URNMAB #### [place] [address] Customer Service Advisor: Jin Louise MD #### CDP, CP, ZFAST #### [facility] [address] [place] [phone] Customer Service Advisor: Miller Shirley MD Eosinophils (Bld) [#/Vol] 0.10 10*3/uL Normal 0.0-0.4 [facility] Comment on above: Performed By: #### L IPR, GLYHGB, URNMAB #### [place] [address] Customer Service Advisor: Jin Louise MD #### CDP, CP, ZFAST #### [facility] [address] [place] [phone] Customer Service Advisor: Miller Shirley MD Eosinophils/100 WBC (Bld) 2 % Normal 0-5 [facility] Comment on above: Performed By: #### L IPR, GLYHGB, URNMAB #### [address] [phone] Customer Service Advisor: Jin Louise MD #### CDP, CP, ZFAST #### [facility] [address] [place] [phone] Customer Service Advisor: Miller Shirley MD Erythrocyte distribution width (RBC) [Ratio] 13.4 % Normal 12.1-15.2 [facility] Comment on above: Performed By: #### L IPR, GLYHGB, URNMAB #### [address] [phone] Customer Service Advisor: Jin Luoise MD #### DEA KEVIN, ZFAST #### [facility] [address] [place] [phone] Customer Service Advisor: Miller Shirley MD Hematocrit (Bld) [Volume fraction] 43.2 % Normal 36-46 [facility] Comment on above: Performed By: #### L IPR, GLYHGB, URNMAB #### [address] [phone] Customer Service Advisor: Jin Louise MD #### DEA KEVIN, ZFAST #### [facility] [address] [place] [phone] Customer Service Advisor: Miller Shirley MD Hemoglobin (Bld) [Mass/Vol] 14.2 g/dL Normal 12.0-16.0 [facility] Comment on above: Performed By: #### L IPR, GLYHGB, URNMAB #### [address] [phone] Customer Service Advisor: Jin Louise MD #### DEA KEVIN, ZFAST #### [facility] [address] [place] [phone] Customer Service Advisor: Miller Shirley MD Lymphocytes (Bld) [#/Vol] 0.80 10*3/uL Low 1.0-4.8 [facility] Comment on above: Performed By: #### L IPR, GLYHGB, URNMAB #### [address] [phone] Customer Service Advisor: Jin Louise MD #### DEA KEVIN, ZFAST #### [facility] [address] [place] [address] Customer Service Advisor: Miller Shirley MD Lymphocytes/100 WBC (Bld) 14 % Low 15-40 [facility] Comment on above: Performed By: #### L IPR, GLYHGB, URNMAB #### [address] [phone] Customer Service Advisor: Jin Louise MD #### DORITA, DEA, ZFAST #### [facility] [address] [place] [address] Customer Service Advisor: Miller Shirley MD MCH (RBC) [Entitic mass] 28.3 pg Normal 26-34 [facility] Comment on above: Performed By: #### L IPR, GLYHGB, URNMAB #### [address] [phone] Customer Service Advisor: Jin Louise MD #### DEA KEVIN, ZFAST #### [facility] [address] [place] [address] Customer Service Advisor: Miller Shirley MD MCHC (RBC) [Mass/Vol] 32.8 g/dL Normal 31-37 [facility] Comment on above: Performed By: #### L IPR, GLYHGB, URNMAB #### [address] [phone] Customer Service Advisor: Jin Louise MD #### DORITA, CP, ZFAST #### [facility] [address] [place] [address] Customer Service Advisor: Miller Shirley MD MCV (RBC) [Entitic vol] 86.3 fL Normal 80-100 [facility] Comment on above: Performed By: #### L IPR, GLYHGB, URNMAB #### [address] [phone] Customer Service Advisor: Jin Louise MD #### CDP, CP, ZFAST #### [facility] [address] [place] [address] Customer Service Advisor: Miller Shirley MD Monocytes (Bld) [#/Vol] 0.60 10*3/uL Normal 0.0-1.0 [facility] Comment on above: Performed By: #### L IPR, GLYHGB, URNMAB #### [address] [address] Customer Service Advisor: Jin Louise MD #### CDP, CP, ZFAST #### [facility] [address] [place] [address] Customer Service Advisor: Miller Shirley MD Monocytes/100 WBC (Bld) 11 % High 4-8 [facility] Comment on above: Performed By: #### L IPR, GLYHGB, URNMAB #### [address] [phone] Customer Service Advisor: Jin Louise MD #### CDP, CP, ZFAST #### [facility] [address] [place] [address] Customer Service Advisor: Miller Shirley MD Neutrophil (Seg) 72 % Normal 47-75 [facility] Comment on above: Performed By: #### L IPR, GLYHGB, URNMAB #### [address] [address] Customer Service Advisor: Jin Louise MD #### CDP, CP, ZFAST #### [facility] [address] [place] [address] Customer Service Advisor: Miller Shirley MD Platelets (Bld) [#/Vol] 382 10*3/uL Normal 140-450 [facility] Comment on above: Performed By: #### L IPR, GLYHGB, URNMAB #### [address] [phone] Customer Service Advisor: Jin Louise MD #### DEA KEVIN, ZFAST #### [facility] [address] [place] [address] Customer Service Advisor: Miller Shirley MD RBC (Bld) [#/Vol] 5.01 10*6/uL Normal 4.0-5.2 [facility] Comment on above: Performed By: #### L IPR, GLYHGB, URNMAB #### [facility] [address] [place] [address] Customer Service Advisor: Jin Louise MD #### DEA KEVIN, ZFAST #### [facility] [address], [place] [phone] Customer Service Advisor: Miller Shirley MD WBC (Bld) [#/Vol] 5.8 10*3/uL Normal 3.5-11.0 [facility] Comment on above: Performed By: #### L IPR, GLYHGB, URNMAB #### [address] [address] Customer Service Advisor: Jin Louise MD #### DEA KEVIN, ZFAST #### [facility] [address] [place] [address] Customer Service Advisor: Miller Shirley MD Comp Metabolic Profon 2021 Albumin [Mass/Vol] 3.7 g/dL Normal 3.5-5.2 [facility] Comment on above: Performed By: #### U RC #### [facility] [address] [place] [address] Customer Service Advisor: Jin Louise MD [facility] [address] [place] [address] Customer Service Advisor: Miller Shirley MD Alkaline Phos 120 U/L High 35-104 [facility] Comment on above: Performed By: #### U RC #### [address] [address] Customer Service Advisor: Jin Louise MD [facility] [address] [place] [address] Customer Service Advisor: Miller Shirley MD ALT [Catalytic activity/Vol] 26 U/L Normal 5-33 [facility] Comment on above: Performed By: #### U RC #### [facility] [address] [place] [address] Customer Service Advisor: Jin Louise MD [facility] [address] [place] [address] Customer Service Advisor: Miller Shirley MD Anion gap [Moles/Vol] 12 mmol/L Normal 9-17 [facility] Comment on above: Performed By: #### U RC #### [facility] [address] [place] [address] Customer Service Advisor: Jin Louise MD [facility] [address] [place] [address] Customer Service Advisor: Miller Shirley MD AST [Catalytic activity/Vol] 22 U/L Normal <32 [facility] Comment on above: Performed By: #### U RC #### [facility] [address] [place] [address] Customer Service Advisor: Jin Louise MD [facility] [address] [place] [address] Customer Service Advisor: Miller Shirley MD Bilirubin [Mass/Vol] 0.3 mg/dL Normal 0.3-1.2 [facility] Comment on above: Performed By: #### U RC #### [facility] [address] [place] [address] Customer Service Advisor: Jin Louise MD [facility] [address] [place] [address] Customer Service Advisor: Miller Shirley MD BUN/CRE Ratio 24 High 9-20 [facility] Comment on above: Performed By: #### U RC #### [facility] [address] [place] [address] Customer Service Advisor: Jin Louise MD [facility] [address] [place] [address] Customer Service Advisor: Miller Shirley MD Calcium [Mass/Vol] 9.3 mg/dL Normal 8.6-10.4 [facility] Comment on above: Performed By: #### U RC #### [facility] [address] [place] [address] Customer Service Advisor: Jin Louise MD [facility] [address] [place] [address] Customer Service Advisor: Miller Shirley MD Chloride [Moles/Vol] 93 mmol/L Low 98-107 [facility] Comment on above: Performed By: #### U RC #### [address] [address] Customer Service Advisor: Jin Louise MD [facility] [address] [place] [address] Customer Service Advisor: Miller Shirley MD CO2 [Moles/Vol] 26 mmol/L Normal 20-31 [facility] Comment on above: Performed By: #### U RC #### [facility] [address] [place] [address] Customer Service Advisor: Jin Louise MD [facility] [address] [place] [address] Customer Service Advisor: Miller Shirley MD Creatinine [Mass/Vol] 0.42 mg/dL Low 0.50-0.90 [facility] Comment on above: Performed By: #### U RC #### [facility] [address] [place] [address] Customer Service Advisor: Jin Louise MD [facility] [address], [place] [phone] Customer Service Advisor: Miller Shirley MD GFR/1.73 sq M.predicted among non-blacks MDRD (S/P/Bld) [Vol rate/Area] mL/min/{1.73_m2} Normal >60 [facility] Comment on above: Result Comment: Effective Apr 18, 2022 These results are not intended for use in patients <18 years of age. eGFR results are calculated without a race factor using the 2020 CKD-EPI equation. Careful clinical correlation is recommended, particularly when comparing to results calculated using previous equations. The CKD-EPI equation is less accurate in patients with extremes of muscle mass, extra-renal metabolism of creatine, excessive creatine ingestion, or following therapy that affects renal tubular secretion. Performed By: #### U RC #### [place] [address] [place] [address] Customer Service Advisor: Jin Louise MD [facility] [address] [place] [address] Customer Service Advisor: Miller Shirley MD Glucose [Mass/Vol] 382 mg/dL High 70-99 [facility] Comment on above: Performed By: #### U RC #### [facility] [address] [place] [address] Customer Service Advisor: Jin Louise MD [facility] [address] [place] [address] Customer Service Advisor: Miller Shirley MD Potassium [Moles/Vol] 4.9 mmol/L Normal 3.7-5.3 [facility] Comment on above: Performed By: #### U RC #### [facility] [address] [place] [address] Customer Service Advisor: Jin Louise MD [facility] [address] [place] [address] Customer Service Advisor: Miller Shirley MD Protein [Mass/Vol] 7.1 g/dL Normal 6.4-8.3 [facility] Comment on above: Performed By: #### U RC #### [address] [address] Customer Service Advisor: Jin Louise MD [facility] [address] [place], [place] [phone] Customer Service Advisor: Miller Shirley MD Sodium [Moles/Vol] 131 mmol/L Low 135-144 [facility] Comment on above: Performed By: #### U RC #### [facility] [address] [place], [place] [phone] Customer Service Advisor: Jin Louise MD [facility] [address] [place], [place] [phone] Customer Service Advisor: Miller Shirley MD Urea nitrogen [Mass/Vol] 10 mg/dL Normal 6-20 [facility] Comment on above: Performed By: #### U RC #### [facility] [address], [place] [phone] Customer Service Advisor: Jin Louise MD [facility] [address] [place], [place] [phone] Customer Service Advisor: Miller Shirley MD [facility] Metabolic [facility] 07-04-2022 Albumin [Mass/Vol] 3.7 g/dL 3.5 - 5.2 g/dL [facility] ALP (Bld) [Catalytic activity/Vol] 120 U/L High 35 - 104 U/L [facility] ALT [Catalytic activity/Vol] 26 U/L 5 - 33 U/L [facility] Anion gap [Moles/Vol] 12 mmol/L 9 - 17 mmol/L [facility] AST [Catalytic activity/Vol] 22 U/L NINF - 32 U/L [facility] Bilirubin [Mass/Vol] 0.3 mg/dL 0.3 - 1 .2 mg/dL [facility] Calcium [Mass/Vol] 9.3 mg/dL 8.6 - 10. 4 mg/dL [facility] Chloride [Moles/Vol] 93 mmol/L Low 98 - 10 7 mmol/L [facility] CO2 [Moles/Vol] 26 mmol/L 20 - 31 mmol/L [facility] Creatinine [Mass/Vol] 0.42 mg/dL Low 0.50 - 0.90 mg/dL [facility] GFR/1.73 sq M.predicted MDRD (S/P/Bld) [Vol rate/Area] - PINF [facility] Comment on above: Effective Apr 18, 2022 These results are not intended for use in patients <18 years of age. eGFR results are calculated without a race factor using the 2020 CKD-EPI equation. Careful clinical correlation is recommended, particularly when comparing to results calculated using previous equations. The CKD-EPI equation is less accurate in patients with extremes of muscle mass, extra-renal metabolism of creatine, excessive creatine ingestion, or following therapy that affects renal tubular secretion. Glucose [Mass/Vol] 382 mg/dL High 70 - 99 mg/dL [facility] Interpretation and review of laboratory results Abnormal [facility] Potassium [Moles/Vol] 4.9 mmol/L 3.7 - 5.3 mmol/L [facility] Protein [Mass/Vol] 7.1 g/dL 6.4 - 8.3 g/dL [facility] Sodium [Moles/Vol] 131 mmol/L Low 135 - 144 mmol/L [facility] Urea nitrogen (BldV) [Mass/Vol] 10 mg/dL 6 - 20 mg/dL [facility] Urea nitrogen/Creatinine (Bld) [Mass ratio] 24 High 9 - 20 [facility] Hemoglobin A1Con 07-04-2022 Glucose [Mass/Vol] 344 mg/dL Normal [facility] Comment on above: Result Comment: The ADA and AACC recommend providing the estimated average glucose result to permit better patient understanding of their HBA1c result. Performed By: #### U RC #### [facility] [address] [place] [address] Customer Service Advisor: Jin Louise MD [facility] [address] [place] [address] Customer Service Advisor: Miller Shirley MD HbA1c (Bld) [Mass fraction] 13.6 % High 4.0-6.0 [facility] Comment on above: Performed By: #### U RC #### [facility] [address] [place] [address] Customer Service Advisor: Jin Louise MD [facility] [address] [place] [address] Customer Service Advisor: Miller Shirley MD Glucose [Mass/Vol] 344 mg/dL [facility] Comment on above: The ADA and AACC rec ommend providing the estimated average glucose result to permit better patient understanding of their HBA1c result. HbA1c (Bld) [Mass fraction] 13.6 % High 4.0 - 6.0 % [facility] Interpretation and review of laboratory results Abnormal [facility] Lipid Panelon 07-04-2022 Cholesterol [Mass/Vol] 338 mg/dL High NINF - 200 mg/dL [facility] Comment on above: Cholesterol Guidelines: <200 Desirable 200-240 Borderline >240 Undesirable Cholesterol in HDL [Mass/Vol] 37 mg/dL Low 40 - PINF mg/dL [facility] Comment on above: HDL Guidelines: <40 Undesirable 40-59 Borderline >59 Desirable Cholesterol in LDL [Mass/Vol] 235 mg/dL High 0 - 130 mg/dL [facility] Comment on above: LDL Guidelines: <100 Desirable 100-129 Near to/above Desirable 130-159 Borderline >159 Undesirable Direct (measured) LDL and calculated LDL are not interchangeable tests. Cholesterol.total/Choles terol in HDL [Mass ratio] 9.1 {ratio} High NINF - 5 [facility] Interpretation and review of laboratory results Abnormal [facility] Triglyceride [Mass/Vol] 330 mg/dL High NINF - 150 mg/dL [facility] Comment on above: Triglyceride Guidelines: <150 Desirable 150-199 Borderline 200-499 High >499 Very high Based on AHA Guidelines for fasting triglyceride, April 2012. [facility] Lipid Profileon 07-04-2022 Cholesterol [Mass/Vol] 338 mg/dL High <200 [facility] Comment on above: Result Comment: Cholesterol Guidelines: <200 Desirable 200-240 Borderline >240 Undesirable Performed By: #### U RC #### [facility] [address] [place] [address] Customer Service Advisor: Jin Louise MD [facility] [address], [place] [phone] Customer Service Advisor: Miller Shirley MD Cholesterol in HDL [Mass/Vol] 37 mg/dL Low >40 [facility] Comment on above: Result Comment: HDL Guidelines: <40 Undesirable 40-59 Borderline >59 Desirable Performed By: #### U RC #### [place] [address] [place] [address] Customer Service Advisor: Jin Louise MD [facility] [address], [place] [phone] Customer Service Advisor: Miller Shirley MD Cholesterol in LDL [Mass/Vol] 235 mg/dL High 0-130 [facility] Comment on above: Result Comment: LDL Guidelines: <100 Desirable 100-129 Near to/above Desirable 130-159 Borderline >159 Undesirable Direct (measured) LDL and calculated LDL are not interchangeable tests. Performed By: #### U RC #### [address] [address] Customer Service Advisor: Jin Louise MD [facility] [address], [place] [phone] Customer Service Advisor: Miller Shirley MD Cholesterol.total/Choles terol in HDL [Mass ratio] 9.1 {ratio} High <5 [facility] Comment on above: Performed By: #### U RC #### [facility] [address] [place] [address] Customer Service Advisor: Jin Louise MD [facility] [address] [place], [place] [phone] Customer Service Advisor: Miller Shirley MD Triglyceride [Mass/Vol] 330 mg/dL High <150 [facility] Comment on above: Result Comment: Triglyceride Guidelines: <150 Desirable 150-199 Borderline 200-499 High >499 Very high Based on AHA Guidelines for fasting triglyceride, April 2012. Performed By: #### U RC #### [address] [place] [address] Customer Service Advisor: Jin Louise MD [facility] [address] [facility] [place] [place] [id number] Customer Service Advisor: Miller Shirley MD Microalb.,Random Uron 2021 Creatinine [Mass/Vol] 61.0 mg/dL Normal 28.0-217.0 [facility] Comment on above: Performed By: #### U RC #### [facility] [address] [place] [address] Customer Service Advisor: Jin Louise MD [facility] [address] [place], [place] [phone] Customer Service Advisor: Miller Shirley MD Microalb/Creat Ratio 28 mcg/mg creat High <25 [facility] Comment on above: Performed By: #### U RC #### [facility] [address] [place] [phone] Customer Service Advisor: Jin Louise MD [facility] [address], [place] [phone] Customer Service Advisor: Miller Shirley MD Microalbumin conc. 17 mg/L Normal <21 [facility] Comment on above: Performed By: #### U RC #### [facility] [address] [place] [id number] Customer Service Advisor: Jin Louise MD [facility] [address], [place] [phone] Customer Service Advisor: Miller Shirley MD Microalbumin, Uron 2 Albumin/Creatinine DL <= 20 mg/L (24H U) [Mass ratio] 17 mg/L NINF - 21 mg/L [facility] Albumin/Creatinine DL <= 20 mg/L (U) [Ratio] 28 High NINF [facility] Creatinine [Mass/Vol] 61.0 mg/dL 28.0 - 217.0 mg/dL [facility] Interpretation and review of laboratory results Abnormal [facility] Patient Fasting?on 2 Patient Fasting? YES [facility] Patient fasting?on 2 Patient fasting? YES Normal [facility] Comment on above: Performed By: #### L IPR, GLYHGB, URNMAB #### [facility] [address] [place] [address] Customer Service Advisor: Jin Louise MD #### CDP, CP, ZFAST #### [facility] [address] [place] [address] Customer Service Advisor: Miller Shirley MD B HYDROXYBUTYRATEon 06-22-20 22 B HYDROXYBUTYRATE 2.66 MMOL/L High 0.02-0.27 [facility] CBCon 06-22-2022 ABSOLUTE BAS 0.1 10*3/uL Normal 0.0-0.2 [facility] ABSOLUTE EOS 0.1 10*3/uL Normal 0.0-0.7 [facility] ABSOLUTE NEUTROPHIL COUNT 4.7 10*3/uL Normal 1.4-6.5 [facility] Basophils/100 WBC (Bld) 1.3 % Normal 0.0-2.0 [facility] DTYPE AUTO DIFF Normal [facility] Eosinophils/100 WBC (Bld) 0.9 % Normal 0.0-11.0 [facility] Lymphocytes (Bld) [#/Vol] 1.4 10*3/uL Normal 1.2-3.4 [facility] Lymphocytes/100 WBC (Bld) 19.9 % Low 20.0-55.0 [facility] Monocytes (Bld) [#/Vol] 0.7 10*3/uL Normal 0.0-0.7 [facility] Monocytes/100 WBC (Bld) 10.1 % High 0.0-10.0 [facility] Neutrophils/100 WBC (Bld) 67.8 % Normal 37.0-75.0 [facility] Erythrocyte distribution width (RBC) [Ratio] 13.7 % Normal 11.5-14.5 [facility] Hematocrit (Bld) [Volume fraction] 39.8 % Normal 36.0-48.0 [facility] Comment on above: Result Comment: IV F LUIDS Hemoglobin (Bld) [Mass/Vol] 13.4 g/dL Normal 12.0-16.0 [facility] Comment on above: Result Comment: iv f luids MCH (RBC) [Entitic mass] 29.2 pg Normal 26.0-35.0 [facility] MCHC (RBC) [Mass/Vol] 33.8 g/dL Normal 27.0-37.0 [facility] MCV (RBC) [Entitic vol] 86.4 fL Normal 80.0-100.0 [facility] Comment on above: Result Comment: IV F LUIDS Platelet mean volume (Bld) [Entitic vol] 8.9 fL Normal 7.4-11.0 [facility] Platelets (Bld) [#/Vol] 319 10*3/uL Normal 130.0-400.0 [facility] RBC (Bld) [#/Vol] 4.61 10*6/uL Normal 4.0-5.4 [facility] WBC (Bld) [#/Vol] 6.9 10*3/uL Normal 3.6-11.0 [facility] CBC, EDIF, PLATELETon 2021 ABSOLUTE BASOPHIL COUNT 0.1 10*3/uL 0.0 - 0.2 10*3/uL [facility] Basophils/100 WBC (Bld) 1.3 % 0.0 - 2.0 % [facility] Differential cell count method Nom (Bld) AUTO DIFF % [facility] Eosinophils (Bld) [#/Vol] 0.1 10*3/uL 0.0 - 0.7 10*3/uL [facility] Eosinophils/100 WBC (Bld) 0.9 % 0.0 - 11.0 % [facility] Erythrocyte distribution width (RBC) [Ratio] 13.7 % 11.5 - 14.5 % [facility] Hematocrit (Bld) [Volume fraction] 39.8 % 36.0 - 48.0 % [facility] Comment on above: IV FLUIDS Hemoglobin (Bld) [Mass/Vol] 13.4 g/dL [facility] Comment on above: iv fluids Interpretation and review of laboratory results Abnormal [facility] Lymphocytes (Bld) [#/Vol] 1.4 10*3/uL 1.2 - 3.4 10*3/uL [facility] Lymphocytes/100 WBC (Bld) 19.9 % Low 20.0 - 55.0 % [facility] MCH (RBC) [Entitic mass] 29.2 pg 26. 0 - 35.0 PG [facility] MCHC (RBC) [Mass/Vol] 33.8 g/dL [facility] MCV (RBC) [Entitic vol] 86.4 fL A [facility] Comment on above: IV FLUIDS Monocytes (Bld) [#/Vol] 0.7 10*3/uL 0.0 - 0.7 10*3/uL [facility] Monocytes/100 WBC (Bld) 10.1 % High 0.0 - 10.0 % [facility] Neutrophils (Bld) [#/Vol] 4.7 10*3/uL 1.4 - 6.5 10*3/uL [facility] Neutrophils/100 WBC (Bld) 67.8 % 37.0 - 75.0 % [facility] Platelet mean volume (Bld) [Entitic vol] 8.9 fL [facility] Platelets (Bld) [#/Vol] 319 10*3/uL 130. 0 - 400.0 10*3/uL [facility] RBC (Bld) [#/Vol] 4.61 10*6/uL 4.0 - 5.4 10*6/uL [facility] WBC (Bld) [#/Vol] 6.9 10*3/uL 3.6 - 11.0 10*3/uL [facility] GLUCOSE (POC DEVICE)on 06-22 GLUCOSE, POINT OF CARE 190 [facility] Interpretation and review of laboratory results Abnormal [facility] Plastics Worker [id number] [facility] GLUCOSE, POINT OF CARE [address] [facility] Interpretation and review of laboratory results Abnormal [facility] Plastics Worker [id number] [facility] GLUCOSE, POINT OF CARE [address] [facility] Interpretation and review of laboratory results Abnormal [facility] Plastics Worker [id number] [facility] GLUCOSE, POINT OF CARE [address] [facility] Interpretation and review of laboratory results Abnormal [facility] Plastics Worker [id number] [facility] GLUCOSE, POINT OF CARE [address] [facility] Interpretation and review of laboratory results Abnormal [facility] Plastics Worker [id number] [facility] GLUCOSE, POINT OF CARE [address] [facility] Interpretation and review of laboratory results Abnormal [facility] Plastics Worker [id number] [facility] GLUCOSE, POINT OF CARE [address] [facility] Interpretation and review of laboratory results Abnormal [facility] Plastics Worker [id number] [facility] GLUCOSE, POINT OF CARE [address] [facility] Interpretation and review of laboratory results Abnormal [facility] Plastics Worker [facility] GLUCOSE, POINT OF CARE [address] [facility] Interpretation and review of laboratory results Abnormal [facility] Plastics Worker [phone] [facility] GLUCOSE, POINT OF CARE [address] [facility] Interpretation and review of laboratory results Abnormal [facility] Plastics Worker [id number] [facility] GLUCOSE, POINT OF CARE [address] [facility] Interpretation and review of laboratory results Abnormal [facility] Plastics Worker [facility] GLUCOSE, POINT OF CARE [address] [facility] Interpretation and review of laboratory results Abnormal [facility] Plastics Worker [id number] [facility] GLUCOSE, POINT OF CARE [address] [facility] Interpretation and review of laboratory results Abnormal [facility] Plastics Worker [id number] [facility] KETONES (BLOOD)on 06-22-2022 Beta hydroxybutyrate [Moles/Vol] 2.66 [facility] Interpretation and review of laboratory results Abnormal [facility] MAGNESIUMon 06-22-2022 Magnesium [Mass/Vol] 1.9 mg/dL Normal 1.6-2.3 [facility] Magnesium [Mass/Vol] 1.9 mg/dL [facility] Magnesium [Mass/Vol] 2.0 mg/dL Normal 1.6-2.3 [facility] Comment on above: Performed By: #### A CBC #### Testing performed at [facility] [address] [place] [address] Magnesium [Mass/Vol] 2.0 mg/dL [facility] MRSA SCREENon 06-22-2022 MRSA DNA ESPERANZA+probe Ql (Unsp spec) Not detected Normal NOT DETECTED [facility] Comment on above: Performed By: #### M RSAST #### Testing performed at [facility] [address] [place] [address] STAPH AUREUS SCREEN Detected Abnormal NOT DETECTED [facility] Comment on above: Result Comment: Test ing performed at [place] [address] Performed By: #### M RSAST #### [place] [address] No Panel Informationon 06-22 [facility] POCT GLUCOSEon 06-22-2022 Glucose [Mass/Vol] 190 mg/dL High 70-100 [facility] CLIENT SERVICES MANAGER [phone] Normal [facility] Glucose [Mass/Vol] 323 mg/dL High 70-100 [facility] CLIENT SERVICES MANAGER [phone] Normal [facility] Glucose [Mass/Vol] 340 mg/dL High 70-100 [facility] CLIENT SERVICES MANAGER [phone] Normal [facility] Glucose [Mass/Vol] 214 mg/dL High 70-100 [facility] CLIENT SERVICES MANAGER [phone] Normal [facility] Glucose [Mass/Vol] 213 mg/dL High 70-100 [facility] CLIENT SERVICES MANAGER [phone] Normal [facility] Glucose [Mass/Vol] 230 mg/dL High 70-100 [facility] CLIENT SERVICES MANAGER [phone] Normal [facility] Glucose [Mass/Vol] 234 mg/dL High 70-100 [facility] CLIENT SERVICES MANAGER [phone] Normal [facility] Glucose [Mass/Vol] 252 mg/dL High 70-100 [facility] CLIENT SERVICES MANAGER Normal [facility] Glucose [Mass/Vol] 242 mg/dL High 70-100 [facility] CLIENT SERVICES MANAGER [phone] Normal [facility] Glucose [Mass/Vol] 245 mg/dL High 70-100 [facility] CLIENT SERVICES MANAGER [id number] Normal [facility] Glucose [Mass/Vol] 214 mg/dL High 70-100 [facility] CLIENT SERVICES MANAGER Normal [facility] Glucose [Mass/Vol] 212 mg/dL High 70-100 [facility] CLIENT SERVICES MANAGER [id number] Normal [facility] Glucose [Mass/Vol] 221 mg/dL High 70-100 [facility] CLIENT SERVICES MANAGER [id number] Normal [facility] Glucose [Mass/Vol] 192 mg/dL High 70-100 [facility] CLIENT SERVICES MANAGER [id number] Normal [facility] Glucose [Mass/Vol] 175 mg/dL High 70-100 [facility] CLIENT SERVICES MANAGER [id number] Normal [facility] RENAL FUNCTION PANELon 06-22 Albumin [Mass/Vol] 3.5 G/dl 3.5 - 5.0 G/dl [facility] Calcium [Mass/Vol] 8.9 mg/dL [facility] Chloride [Moles/Vol] 106 mmol/L [facility] Comment on above: Please note: Triglyc eride levels of 600mg/dL or higher may positively bias chloride results by approximately 2.1 mmol CO2 [Moles/Vol] 20 mmol/L Low [facility] Creatinine [Mass/Vol] 0.35 mg/dL Low [facility] GFR COMMENT Average GFR for 50-59 years old = 93. [facility] Comment on above: Chronic Kidney disea se, GFR = <60. Kidney failure, GFR = <15. The GFR estimate is not adjusted for extreme body surface area or acute process, nor has it been validated for women or ethnic groups other than and . GFR/1.73 sq M.predicted among blacks MDRD (S/P/Bld) [Vol rate/Area] 250 mL/min/{1.73_m2} ml/min/1.73sq .m [facility] GFR/1.73 sq M.predicted among non-blacks MDRD (S/P/Bld) [Vol rate/Area] 206 mL/min/{1.73_m2} ml/min/1.73sq .m [facility] Glucose post fast [Mass/Vol] 204 mg/dL High [facility] Comment on above: NORMAL <100 mg/dL PREDIABETES 101-126 mg/dL DIABETES 126 mg/dL or higher Interpretation and review of laboratory results Abnormal [facility] Phosphate [Mass/Vol] 2.0 mg/dL Low [facility] Potassium [Moles/Vol] 3.7 mmol/L [facility] Sodium [Moles/Vol] 135 mmol/L Low [facility] Urea nitrogen [Mass/Vol] 10 mg/dL [facility] Albumin [Mass/Vol] 3.3 G/dl Low 3.5 - 5.0 G/dl [facility] Calcium [Mass/Vol] 8.9 mg/dL [facility] Chloride [Moles/Vol] 106 mmol/L [facility] Comment on above: Please note: Triglyc eride levels of 600mg/dL or higher may positively bias chloride results by approximately 2.1 mmol CO2 [Moles/Vol] 17 mmol/L Critically low [facility] Comment on above: CALLED TO AND READ B ACK BY ALISON DOHERTY 06.22.22 @[address] [place] [address] Creatinine [Mass/Vol] 0.36 mg/dL Low [facility] GFR COMMENT Average GFR for 50-59 years old = 93. [facility] Comment on above: Chronic Kidney disea se, GFR = <60. Kidney failure, GFR = <15. The GFR estimate is not adjusted for extreme body surface area or acute process, nor has it been validated for women or ethnic groups other than and . GFR/1.73 sq M.predicted among blacks MDRD (S/P/Bld) [Vol rate/Area] 242 mL/min/{1.73_m2} ml/min/1.73sq .m [facility] GFR/1.73 sq M.predicted among non-blacks MDRD (S/P/Bld) [Vol rate/Area] 200 mL/min/{1.73_m2} ml/min/1.73sq .m [facility] Glucose post fast [Mass/Vol] 338 mg/dL High [facility] Comment on above: NORMAL <100 mg/dL PREDIABETES 101-126 mg/dL DIABETES 126 mg/dL or higher Interpretation and review of laboratory results Abnormal [facility] Phosphate [Mass/Vol] 2.2 mg/dL Low [facility] Potassium [Moles/Vol] 3.1 mmol/L Low [facility] Sodium [Moles/Vol] 134 mmol/L Low [facility] Urea nitrogen [Mass/Vol] 10 mg/dL [facility] Albumin [Mass/Vol] 3.4 G/dl Low 3.5 - 5.0 G/dl [facility] Calcium [Mass/Vol] 8.8 mg/dL [facility] Chloride [Moles/Vol] 108 mmol/L High [facility] Comment on above: Please note: Triglyc eride levels of 600mg/dL or higher may positively bias chloride results by approximately 2.1 mmol CO2 [Moles/Vol] 15 mmol/L Critically low [facility] Comment on above: CALLED TO AND READ B ACK BY ABBIE BEE IN ICU 06.22.2022 AT 05:58 TLA Creatinine [Mass/Vol] 0.37 mg/dL Low [facility] GFR COMMENT Average GFR for 50-59 years old = 93. [facility] Comment on above: Chronic Kidney disea se, GFR = <60. Kidney failure, GFR = <15. The GFR estimate is not adjusted for extreme body surface area or acute process, nor has it been validated for women or ethnic groups other than and . GFR/1.73 sq M.predicted among blacks MDRD (S/P/Bld) [Vol rate/Area] 234 mL/min/{1.73_m2} ml/min/1.73sq .m [facility] GFR/1.73 sq M.predicted among non-blacks MDRD (S/P/Bld) [Vol rate/Area] 193 mL/min/{1.73_m2} ml/min/1.73sq .m [facility] Glucose post fast [Mass/Vol] 254 mg/dL High [facility] Comment on above: NORMAL <100 mg/dL PREDIABETES 101-126 mg/dL DIABETES 126 mg/dL or higher Interpretation and review of laboratory results Abnormal [facility] Phosphate [Mass/Vol] 1.6 mg/dL Critically low [facility] Comment on above: CALLED TO AND READ B ACK BY ABBIE BEE IN ICU 06.22.2022 AT 05:58 TLA Potassium [Moles/Vol] 3.1 mmol/L Low [facility] Sodium [Moles/Vol] 135 mmol/L Low [facility] Urea nitrogen [Mass/Vol] 11 mg/dL [facility] Albumin [Mass/Vol] 3.4 G/dl Low 3.5 - 5.0 G/dl [facility] Calcium [Mass/Vol] 8.8 mg/dL [facility] Chloride [Moles/Vol] 111 mmol/L High [facility] Comment on above: Please note: Triglyc eride levels of 600mg/dL or higher may positively bias chloride results by approximately 2.1 mmol CO2 [Moles/Vol] 9 mmol/L Critically low [facility] Comment on above: CALLED TO AND READ B ACK BY KWAKU COCHRAN IN ICU 06.22.2022 AT 01:51 TLA Creatinine [Mass/Vol] 0.44 mg/dL Low [facility] GFR COMMENT Average GFR for 50-59 years old = 93. [facility] Comment on above: Chronic Kidney disea se, GFR = <60. Kidney failure, GFR = <15. The GFR estimate is not adjusted for extreme body surface area or acute process, nor has it been validated for women or ethnic groups other than and . GFR/1.73 sq M.predicted among blacks MDRD (S/P/Bld) [Vol rate/Area] 192 mL/min/{1.73_m2} ml/min/1.73sq .m [facility] GFR/1.73 sq M.predicted among non-blacks MDRD (S/P/Bld) [Vol rate/Area] 158 mL/min/{1.73_m2} ml/min/1.73sq .m [facility] Glucose post fast [Mass/Vol] 234 mg/dL High [facility] Comment on above: NORMAL <100 mg/dL PREDIABETES 101-126 mg/dL DIABETES 126 mg/dL or higher Interpretation and review of laboratory results Abnormal [facility] Phosphate [Mass/Vol] 1.7 mg/dL Critically low [facility] Comment on above: CALLED TO AND READ B ACK BY KWAKU COCHRAN IN ICU 06.22.2022 AT 01:50 TLA Potassium [Moles/Vol] 3.4 mmol/L Low [facility] Sodium [Moles/Vol] 135 mmol/L Low [facility] Urea nitrogen [Mass/Vol] 12 mg/dL [facility] RENAL PANEL,FASTINGon 2021 ALBUMIN 3.5 G/dl Normal 3.5-5.0 [facility] Calcium [Mass/Vol] 8.9 mg/dL Normal 8.4-10.2 [facility] Chloride [Moles/Vol] 106 mmol/L Normal 98-107 [facility] Comment on above: Result Comment: Sandip collins note: Triglyceride levels of 600mg/dL or higher may positively bias chloride results by approximately 2.1 mmol CO2 [Moles/Vol] 20 mmol/L Low 22-30 [facility] Creatinine [Mass/Vol] 0.35 mg/dL Low 0.7-1.2 [facility] EST. GFR, 250 ml/min/1.73sq.m [facility] EST. GFR,Non 206 ml/min/1.73sq.m [facility] GFR Information Average GFR for 50-59 years old = 93. 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 Kidney failure, GFR = <15. The GFR estimate is not adjusted for extreme body surface area or acute process, nor has it been validated for women or ethnic groups other than and . Glucose [Mass/Vol] 204 mg/dL High 70-100 [facility] Comment on above: Result Comment: NORMAL <100 mg/dL PREDIABETES 101-126 mg/dL DIABETES 126 mg/dL or higher PHOSPHOROUS 2.0 MG/DL Low 2.5-4.5 [facility] Potassium [Moles/Vol] 3.7 mmol/L Normal 3.5-5.1 [facility] Sodium [Moles/Vol] 135 mmol/L Low 137-145 [facility] Urea nitrogen [Mass/Vol] 10 mg/dL Normal 7-20 [facility] ALBUMIN 3.3 G/dl Low 3.5-5.0 [facility] Calcium [Mass/Vol] 8.9 mg/dL Normal 8.4-10.2 [facility] Chloride [Moles/Vol] 106 mmol/L Normal 98-107 [facility] Comment on above: Result Comment: Sandip collins note: Triglyceride levels of 600mg/dL or higher may positively bias chloride results by approximately 2.1 mmol CO2 [Moles/Vol] 17 mmol/L Critically low 22-30 [facility] Comment on above: Result Comment: CALL ED TO AND READ BACK BY ALISON DOHERTY 06.22.22 @[address] [place] [address] Creatinine [Mass/Vol] 0.36 mg/dL Low 0.7-1.2 [facility] EST. GFR, 242 ml/min/1.73sq.m Normal [facility] EST. GFR,Non 200 ml/min/1.73sq.m Normal [facility] GFR Information Average GFR for 50-59 years old = 93. 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 Kidney failure, GFR = <15. The GFR estimate is not adjusted for extreme body surface area or acute process, nor has it been validated for women or ethnic groups other than and . Glucose [Mass/Vol] 338 mg/dL High 70-100 [facility] Comment on above: Result Comment: NORMAL <100 mg/dL PREDIABETES 101-126 mg/dL DIABETES 126 mg/dL or higher PHOSPHOROUS 2.2 MG/DL Low 2.5-4.5 [facility] Potassium [Moles/Vol] 3.1 mmol/L Low 3.5-5.1 [facility] Sodium [Moles/Vol] 134 mmol/L Low 137-145 [facility] Urea nitrogen [Mass/Vol] 10 mg/dL Normal 7-20 [facility] ALBUMIN 3.4 G/dl Low 3.5-5.0 [facility] Calcium [Mass/Vol] 8.8 mg/dL Normal 8.4-10.2 [facility] Chloride [Moles/Vol] 108 mmol/L High 98-107 [facility] Comment on above: Result Comment: Sandip collins note: Triglyceride levels of 600mg/dL or higher may positively bias chloride results by approximately 2.1 mmol CO2 [Moles/Vol] 15 mmol/L Critically low 22-30 [facility] Comment on above: Result Comment: CALL ED TO AND READ BACK BY ABBIE BEE IN ICU 06.22.2022 AT 05:58 TLA Creatinine [Mass/Vol] 0.37 mg/dL Low 0.7-1.2 [facility] EST. GFR, 234 ml/min/1.73sq.m Normal [facility] EST. GFR,Non 193 ml/min/1.73sq.m [facility] GFR Information Average GFR for 50-59 years old = 93. 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 Kidney failure, GFR = <15. The GFR estimate is not adjusted for extreme body surface area or acute process, nor has it been validated for women or ethnic groups other than and . Glucose [Mass/Vol] 254 mg/dL High 70-100 [facility] Comment on above: Result Comment: NORMAL <100 mg/dL PREDIABETES 101-126 mg/dL DIABETES 126 mg/dL or higher PHOSPHOROUS 1.6 MG/DL Critically low 2.5-4.5 [facility] Comment on above: Result Comment: CALL ED TO AND READ BACK BY ABBIE BEE IN ICU 06.22.2022 AT 05:58 TLA Potassium [Moles/Vol] 3.1 mmol/L Low 3.5-5.1 [facility] Sodium [Moles/Vol] 135 mmol/L Low 137-145 [facility] Urea nitrogen [Mass/Vol] 11 mg/dL Normal 7-20 [facility] CO2 [Moles/Vol] 9 mmol/L Critically low 22-30 [facility] Comment on above: Result Comment: CALL ED TO AND READ BACK BY KWAKU COCHRAN IN ICU 06.22.2022 AT 01:51 TLA Performed By: #### A CBC #### Testing performed at [address] [address] ALBUMIN 3.4 G/dl Low 3.5-5.0 [facility] Comment on above: Performed By: #### A CBC #### Testing performed at [place] [id number] Calcium [Mass/Vol] 8.8 mg/dL Normal 8.4-10.2 [facility] Comment on above: Performed By: #### A CBC #### Testing performed at [place] [id number] Chloride [Moles/Vol] 111 mmol/L High 98-107 [facility] Comment on above: Result Comment: Sandip collins note: Triglyceride levels of 600mg/dL or higher may positively bias chloride results by approximately 2.1 mmol Performed By: #### A CBC #### [place] [address] Creatinine [Mass/Vol] 0.44 mg/dL Low 0.7-1.2 [facility] Comment on above: Performed By: #### A CBC #### Testing performed at [place] [id number] EST. GFR, 192 ml/min/1.73sq.m [facility] Comment on above: Performed By: #### A CBC #### Testing performed at [place] [id number] EST. GFR,Non 158 ml/min/1.73sq.m [facility] Comment on above: Performed By: #### A CBC #### Testing performed at [place] [id number] GFR Information Average GFR for 50-59 years old = 93. [facility] Comment on above: Result Comment: Marine Mammal Trainer yaneth Kidney disease, GFR = <60. Kidney failure, GFR = <15. The GFR estimate is not adjusted for extreme body surface area or acute process, nor has it been validated for women or ethnic groups other than and . Performed By: #### A CBC #### Testing performed at [place] [id number] Glucose [Mass/Vol] 234 mg/dL High 70-100 [facility] Comment on above: Result Comment: NORMAL <100 mg/dL PREDIABETES 101-126 mg/dL DIABETES 126 mg/dL or higher Performed By: #### A CBC #### Testing performed at [place] [id number] PHOSPHOROUS 1.7 MG/DL Critically low 2.5-4.5 [facility] Comment on above: Result Comment: CALL ED TO AND READ BACK BY KWAKU COCHRAN IN ICU 06.22.2022 AT 01:50 TLA Performed By: #### A CBC #### Testing performed at [place] [id number] Potassium [Moles/Vol] 3.4 mmol/L Low 3.5-5.1 [facility] Comment on above: Performed By: #### A CBC #### Testing performed at [place] [id number] Sodium [Moles/Vol] 135 mmol/L Low 137-145 [facility] Comment on above: Performed By: #### A CBC #### Testing performed at [address] [address] Urea nitrogen [Mass/Vol] 12 mg/dL Normal 7-20 [facility] Comment on above: Performed By: #### A CBC #### Testing performed at [address] [address] SCREEN: MRSA ONLY, NARES (IS OLATION SCREEN)on 06-22-2022 Interpretation and review of laboratory results Abnormal [facility] MRSA isol Org specific cx Ql (Nose) Not detected NOT DETECTED [facility] STAPHYOCOCCUS AUREUS BY PCR Detected Abnormal NOT DETECTED [facility] Comment on above: Testing performed at [address] B HYDROXYBUTYRATEon 06-21-20 22 B HYDROXYBUTYRATE 9.44 MMOL/L High 0.02-0.27 [facility] BLOOD GAS VENOUSon 2 Base deficit (BldV) [Moles/Vol] 21.3 High [facility] Carboxyhemoglobin (Bld) [Mass fraction] 0.6 % [facility] CO2 (BldC) [Partial pressure] 21 Low [facility] HCO3 (Bld) [Moles/Vol] 6.5 mmol/L Low Av [facility] Hemoglobin (Bld) [Mass/Vol] 17.1 g/dL [facility] Interpretation and review of laboratory results Abnormal [facility] Methemoglobin (BldC) [Mass fraction] 0.0 % [facility] Oxygen (BldC) [Partial pressure] 39 [facility] Oxyhemoglobin (Bld) [Mass fraction] 68.0 % [facility] pH (BldC) 7.10 Critically low 7.31 - 7.41 [facility] Comment on above: CALLED TO AND READ B ACK BY Lonnie CHO 12.6.22 @[address] [place] [address] CBCon 06-21-2022 ABSOLUTE BAS 0.1 10*3/uL Normal 0.0-0.2 [facility] Comment on above: Performed By: #### A CBC #### Testing performed at [address] [address] ABSOLUTE EOS 0.0 10*3/uL Normal 0.0-0.7 [facility] Comment on above: Performed By: #### A CBC #### Testing performed at [address] [address] ABSOLUTE NEUTROPHIL COUNT 9.1 10*3/uL High 1.4-6.5 [facility] Comment on above: Performed By: #### A CBC #### Testing performed at [address] [address] Basophils/100 WBC (Bld) 0.7 % Normal 0.0-2.0 [facility] Comment on above: Performed By: #### A CBC #### Testing performed at [place] [address] [place] [address] DTYPE AUTO DIFF Normal [facility] Comment on above: Performed By: #### A CBC #### Testing performed at [place] [address] [place] [address] Eosinophils/100 WBC (Bld) 0.0 % Normal 0.0-11.0 [facility] Comment on above: Performed By: #### A CBC #### Testing performed at [address] [place] [address] Lymphocytes (Bld) [#/Vol] 1.1 10*3/uL Low 1.2-3.4 [facility] Comment on above: Performed By: #### A CBC #### Testing performed at [address] [place] [address] Lymphocytes/100 WBC (Bld) 9.8 % Low 20.0-55.0 [facility] Comment on above: Performed By: #### A CBC #### Testing performed at [address] [place] [address] Monocytes (Bld) [#/Vol] 0.6 10*3/uL Normal 0.0-0.7 [facility] Comment on above: Performed By: #### A CBC #### Testing performed at [address] [place] [address] Monocytes/100 WBC (Bld) 5.5 % Normal 0.0-10.0 [facility] Comment on above: Performed By: #### A CBC #### Testing performed at [address] [place] [address] Neutrophils/100 WBC (Bld) 84.0 % High 37.0-75.0 [facility] Comment on above: Performed By: #### A CBC #### Testing performed at [address] [place] [address] Erythrocyte distribution width (RBC) [Ratio] 14.4 % Normal 11.5-14.5 [facility] Comment on above: Performed By: #### A CBC #### Testing performed at [address] [address] Hematocrit (Bld) [Volume fraction] 52.8 % High 36.0-48.0 [facility] Comment on above: Performed By: #### A CBC #### Testing performed at [address] [address] Hemoglobin (Bld) [Mass/Vol] 17.3 g/dL High 12.0-16.0 [facility] Comment on above: Performed By: #### A CBC #### Testing performed at [address] [address] MCH (RBC) [Entitic mass] 29.4 pg Normal 26.0-35.0 [facility] Comment on above: Performed By: #### A CBC #### Testing performed at [address] [address] MCHC (RBC) [Mass/Vol] 32.8 g/dL Normal 27.0-37.0 [facility] Comment on above: Performed By: #### A CBC #### Testing performed at [address] [address] MCV (RBC) [Entitic vol] 89.7 fL Normal 80.0-100.0 [facility] Comment on above: Performed By: #### A CBC #### Testing performed at [address] [address] Platelet mean volume (Bld) [Entitic vol] 8.4 fL Normal 7.4-11.0 [facility] Comment on above: Performed By: #### A CBC #### Testing performed at [address] [address] Platelets (Bld) [#/Vol] 390 10*3/uL Normal 130.0-400.0 [facility] Comment on above: Performed By: #### A CBC #### Testing performed at [facility] [address] [place] [address] RBC (Bld) [#/Vol] 5.88 10*6/uL High 4.0-5.4 [facility] Comment on above: Performed By: #### A CBC #### Testing performed at [place] [address] [place] [address] WBC (Bld) [#/Vol] 10.9 10*3/uL Normal 3.6-11.0 [facility] Comment on above: Performed By: #### A CBC #### Testing performed at [place] [address] [place] [address] CBC, EDIF, PLATELETon 2021 ABSOLUTE BASOPHIL COUNT 0.1 10*3/uL 0.0 - 0.2 10*3/uL [facility] Basophils/100 WBC (Bld) 0.7 % 0.0 - 2.0 % [facility] Differential cell count method Nom (Bld) AUTO DIFF % [facility] Eosinophils (Bld) [#/Vol] 0.0 10*3/uL 0.0 - 0.7 10*3/uL [facility] Eosinophils/100 WBC (Bld) 0.0 % 0.0 - 11.0 % [facility] Erythrocyte distribution width (RBC) [Ratio] 14.4 % 11.5 - 14.5 % [facility] Hematocrit (Bld) [Volume fraction] 52.8 % High 36.0 - 48.0 % [facility] Hemoglobin (Bld) [Mass/Vol] 17.3 g/dL High [facility] Interpretation and review of laboratory results Abnormal [facility] Lymphocytes (Bld) [#/Vol] 1.1 10*3/uL Low 1.2 - 3.4 10*3/uL [facility] Lymphocytes/100 WBC (Bld) 9.8 % Low 20.0 - 55.0 % [facility] MCH (RBC) [Entitic mass] 29.4 pg 26. 0 - 35.0 PG [facility] MCHC (RBC) [Mass/Vol] 32.8 g/dL [facility] MCV (RBC) [Entitic vol] 89.7 fL A [facility] Monocytes (Bld) [#/Vol] 0.6 10*3/uL 0.0 - 0.7 10*3/uL [facility] Monocytes/100 WBC (Bld) 5.5 % 0.0 - 10.0 % [facility] Neutrophils (Bld) [#/Vol] 9.1 10*3/uL High 1.4 - 6.5 10*3/uL [facility] Neutrophils/100 WBC (Bld) 84.0 % High 37.0 - 75.0 % [facility] Platelet mean volume (Bld) [Entitic vol] 8.4 fL [facility] Platelets (Bld) [#/Vol] 390 10*3/uL 130. 0 - 400.0 10*3/uL [facility] RBC (Bld) [#/Vol] 5.88 10*6/uL High 4.0 - 5.4 10*6/uL [facility] WBC (Bld) [#/Vol] 10.9 10*3/uL 3.6 - 11.0 10*3/uL [facility] CMP FASTINGon 06-21-2022 A:G RATIO 1.1 RATIO Low 1.3-2.2 [facility] Comment on above: Performed By: #### A CBC #### Testing performed at [address] [address] ALBUMIN 4.8 G/dl Normal 3.5-5.0 [facility] Comment on above: Performed By: #### A CBC #### Testing performed at [place] [address] [place] [address] ALP [Catalytic activity/Vol] 175 U/L High 38-126 [facility] Comment on above: Performed By: #### A CBC #### Testing performed at [address] [address] ALT [Catalytic activity/Vol] 23 U/L Normal <35 [facility] Comment on above: Performed By: #### A CBC #### Testing performed at [address] [address] AST [Catalytic activity/Vol] 28 U/L Normal 14-36 [facility] Comment on above: Performed By: #### A CBC #### Testing performed at [address] [address] Bilirubin [Mass/Vol] 0.7 mg/dL Normal 0.2-1.3 [facility] Comment on above: Performed By: #### A CBC #### Testing performed at [address] [address] Calcium [Mass/Vol] 10.4 mg/dL High 8.4-10.2 [facility] Comment on above: Performed By: #### A CBC #### Testing performed at [address] [address] Chloride [Moles/Vol] 102 mmol/L Normal 98-107 [facility] Comment on above: Result Comment: Sandip collins note: Triglyceride levels of 600mg/dL or higher may positively bias chloride results by approximately 2.1 mmol Performed By: #### A CBC #### Testing performed at [address] [address] CO2 [Moles/Vol] mmol/L Critically low 22-30 [facility] Comment on above: Result Comment: CALL ED TO AND READ BACK BY Chiki FERRARI 12.6.22 @[address] [place] [address] Performed By: #### A CBC #### Testing performed at [address] [address] Creatinine [Mass/Vol] 0.72 mg/dL Normal 0.7-1.2 [facility] Comment on above: Performed By: #### A CBC #### Testing performed at [address] [address] EST. GFR, 109 ml/min/1.73sq.m Normal [facility] Comment on above: Performed By: #### A CBC #### Testing performed at [address] [address] EST. GFR,Non 90 ml/min/1.73sq.m Normal [facility] Comment on above: Performed By: #### A CBC #### Testing performed at [address] [address] GFR Information Average GFR for 50-59 years old = 93. 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 Kidney failure, GFR = <15. The GFR estimate is not adjusted for extreme body surface area or acute process, nor has it been validated for women or ethnic groups other than and . Performed By: #### A CBC #### Testing performed at [address] [address] Glucose [Mass/Vol] 428 mg/dL Critically high 70-100 [facility] Comment on above: Result Comment: NORMAL <100 mg/dL PREDIABETES 101-126 mg/dL DIABETES 126 mg/dL or higher CALLED TO AND READ BACK BY Chiki FERRARI 12.6.22 @[address] [place] [address] Performed By: #### A CBC #### Testing performed at [address] [address] Potassium [Moles/Vol] 4.7 mmol/L Normal 3.5-5.1 [facility] Comment on above: Performed By: #### A CBC #### Testing performed at [address] [address] Protein [Mass/Vol] 9.3 g/dL High 6.3-8.2 [facility] Comment on above: Performed By: #### A CBC #### Testing performed at [address] [address] Sodium [Moles/Vol] 131 mmol/L Low 137-145 [facility] Comment on above: Performed By: #### A CBC #### Testing performed at [address] [address] Urea nitrogen [Mass/Vol] 15 mg/dL Normal 7-20 [facility] Comment on above: Performed By: #### A CBC #### Testing performed at [facility] [address] [place] [id number] COMPREHENSIVE METABOLIC PANE Karthikeyan 06-21-2022 Albumin [Mass/Vol] 4.8 G/dl 3.5 - 5.0 G/dl [facility] Albumin/Globulin [Mass ratio] 1.1 {ratio} Low [facility] ALP [Catalytic activity/Vol] 175 U/L High [facility] ALT [Catalytic activity/Vol] 23 U/L NINF [facility] AST [Catalytic activity/Vol] 28 U/L [facility] Bilirubin [Mass/Vol] 0.7 mg/dL [facility] Calcium [Mass/Vol] 10.4 mg/dL High [facility] Chloride [Moles/Vol] 102 mmol/L [facility] Comment on above: Please note: Triglyc eride levels of 600mg/dL or higher may positively bias chloride results by approximately 2.1 mmol CO2 [Moles/Vol] Critically low [facility] Comment on above: CALLED TO AND READ B ACK BY Chiki FERRARI 12.6.22 @[address] [place] [address] Creatinine [Mass/Vol] 0.72 mg/dL [facility] GFR COMMENT Average GFR for 50-59 years old = 93. [facility] Comment on above: Chronic Kidney disea se, GFR = <60. Kidney failure, GFR = <15. The GFR estimate is not adjusted for extreme body surface area or acute process, nor has it been validated for women or ethnic groups other than and . GFR/1.73 sq M.predicted among blacks MDRD (S/P/Bld) [Vol rate/Area] 109 mL/min/{1.73_m2} ml/min/1.73sq .m [facility] GFR/1.73 sq M.predicted among non-blacks MDRD (S/P/Bld) [Vol rate/Area] 90 mL/min/{1.73_m2} ml/min/1.73sq .m [facility] Glucose post fast [Mass/Vol] 428 mg/dL Critically high [facility] Comment on above: NORMAL <100 mg/dL PREDIABETES 101-126 mg/dL DIABETES 126 mg/dL or higher CALLED TO AND READ BACK BY Chiki FERRARI 12.6.22 @[address] [place] [address] Interpretation and review of laboratory results Abnormal [facility] Potassium [Moles/Vol] 4.7 mmol/L [facility] Protein [Mass/Vol] 9.3 g/dL High [facility] Sodium [Moles/Vol] 131 mmol/L Low [facility] Urea nitrogen [Mass/Vol] 15 mg/dL [facility] ECG (SCANNED)Ordered By: Laura Mcdonough on 06-21-2022 [facility] GLUCOSE (POC DEVICE)on 06-21 GLUCOSE, POINT OF CARE [address] [facility] Interpretation and review of laboratory results Abnormal [facility] Plastics Worker [id number] [facility] GLUCOSE, POINT OF CARE [address] [facility] Interpretation and review of laboratory results Abnormal [facility] Operator [id number] [facility] GLUCOSE, POINT OF CARE [address] [facility] Interpretation and review of laboratory results Abnormal [facility] Operator [id number] [facility] GLUCOSE, POINT OF CARE [address] [facility] Interpretation and review of laboratory results Abnormal [facility] Operator [id number] [facility] GLUCOSE, POINT OF CARE [address] [facility] Interpretation and review of laboratory results Abnormal [facility] Operator [id number] [facility] GLUCOSE, POINT OF CARE [address] [facility] Interpretation and review of laboratory results Abnormal [facility] Operator [id number] [facility] INFLUENZA A AND B, PCRon FLUAV and FLUBV Ag IF Nom (Unsp spec) Negative NEGATIVE [facility] FLUBV Ag IA Ql (Unsp spec) Negative NEGATIVE [facility] Comment on above: TESTING PERFORMED BY [facility] KETONES (BLOOD)on 06-21-2022 Beta hydroxybutyrate [Moles/Vol] 9.44 [facility] Interpretation and review of laboratory results Abnormal [facility] MAGNESIUMon 06-21-2022 Magnesium [Mass/Vol] 2.1 mg/dL Normal 1.6-2.3 [facility] Magnesium [Mass/Vol] 2.1 mg/dL [facility] NOVEL CORONAVIRUSon 06-21-20 22 NARRATIVE This test was performed using isothermal ESPERANZA and has been approved as Emergency Use Authorization (EUA) for the qualitative detection [id number] nucleic acid. Normal [facility] SARS-CoV-2 (COVID-19) RNA ESPERANZA+probe Ql (Unsp spec) Not detected Normal NOT DETECTED [facility] Comment on above: Result Comment: Nega tive results do not preclude SARS-CoV-2 infection and should not be used as the sole basis for treatment or other patient management decisions. Optimum specimen types and timing for peak viral levels during infections caused by SARS-CoV-2 has not been determined. The possibility of a false negative result should especially be considered if the patient's recent exposures or clinical presentation suggest that SARS-CoV-2 infection is probable, and diagnostic tests for other causes of illness (e.g., other respiratory illness) are negative. Collection of a new specimen and re-testing may be necessary if the patient is critically ill or clinically deteriorating. NOVEL CORONAVIRUS LAB 1 - NA SOPHARYNGEALon 06-21-2022 NARRATIVE -1 This test was performed using isothermal ESPERANZA and has been approved as Emergency Use Authorization (EUA) for the qualitative detection [id number] nucleic acid. [facility] SARS-CoV-2 (COVID-19) RNA ESPERANZA+probe Ql (Unsp spec) Not detected NOT DETECTED [facility] Comment on above: Negative results do not preclude SARS-CoV-2 infection and should not be used as the sole basis for treatment or other patient management decisions. Optimum specimen types and timing for peak viral levels during infections caused by SARS-CoV-2 has not been determined. The possibility of a false negative result should especially be considered if the patient's recent exposures or clinical presentation suggest that SARS-CoV-2 infection is probable, and diagnostic tests for other causes of illness (e.g., other respiratory illness) are negative. Collection of a new specimen and re-testing may be necessary if the patient is critically ill or clinically deteriorating. [facility] No Panel Informationon 06-21 [facility] POCT GLUCOSEon 06-21-2022 Glucose [Mass/Vol] 210 mg/dL High 70-100 [facility] CLIENT SERVICES MANAGER Normal [facility] Glucose [Mass/Vol] 280 mg/dL High 70-100 [facility] CLIENT SERVICES MANAGER [id number] Normal [facility] Glucose [Mass/Vol] 393 mg/dL High 70-100 [facility] CLIENT SERVICES MANAGER [id number] Normal [facility] Glucose [Mass/Vol] 400 mg/dL High 70-100 [facility] CLIENT SERVICES MANAGER [id number] Normal [facility] RAPID FLU Aon 06-21-2022 INFLUENZA A Negative Normal NEGATIVE [facility] INFLUENZA B Negative Normal NEGATIVE [facility] Comment on above: Result Comment: TEST ING PERFORMED BY [facility] RENAL FUNCTION PANELon 06-21 Albumin [Mass/Vol] 4.4 G/dl 3.5 - 5.0 G/dl [facility] Calcium [Mass/Vol] 9.7 mg/dL [facility] Chloride [Moles/Vol] 104 mmol/L [facility] Comment on above: Please note: Triglyc eride levels of 600mg/dL or higher may positively bias chloride results by approximately 2.1 mmol CO2 [Moles/Vol] Critically low [facility] Comment on above: CALLED TO AND READ B ACK BY ABBIE BEE IN ICU 06.21.2022 AT 19:52 TLA Creatinine [Mass/Vol] 0.66 mg/dL Low [facility] GFR COMMENT Average GFR for 50-59 years old = 93. [facility] Comment on above: Chronic Kidney disea se, GFR = <60. Kidney failure, GFR = <15. The GFR estimate is not adjusted for extreme body surface area or acute process, nor has it been validated for women or ethnic groups other than and . GFR/1.73 sq M.predicted among blacks MDRD (S/P/Bld) [Vol rate/Area] 120 mL/min/{1.73_m2} ml/min/1.73sq .m [facility] GFR/1.73 sq M.predicted among non-blacks MDRD (S/P/Bld) [Vol rate/Area] 99 mL/min/{1.73_m2} ml/min/1.73sq .m [facility] Glucose post fast [Mass/Vol] 369 mg/dL High [facility] Comment on above: NORMAL <100 mg/dL PREDIABETES 101-126 mg/dL DIABETES 126 mg/dL or higher Interpretation and review of laboratory results Abnormal [facility] Phosphate [Mass/Vol] 3.5 mg/dL [facility] Potassium [Moles/Vol] 4.2 mmol/L [facility] Sodium [Moles/Vol] 133 mmol/L Low [facility] Urea nitrogen [Mass/Vol] 16 mg/dL [facility] RENAL PANEL,FASTINGon 2021 ALBUMIN 4.4 G/dl Normal 3.5-5.0 [facility] Calcium [Mass/Vol] 9.7 mg/dL Normal 8.4-10.2 [facility] Chloride [Moles/Vol] 104 mmol/L Normal 98-107 [facility] Comment on above: Result Comment: Sandip collins note: Triglyceride levels of 600mg/dL or higher may positively bias chloride results by approximately 2.1 mmol CO2 [Moles/Vol] mmol/L Critically low 22-30 [facility] Comment on above: Result Comment: CALL ED TO AND READ BACK BY ABBIE BEE IN ICU 06.21.2022 AT 19:52 TLA Creatinine [Mass/Vol] 0.66 mg/dL Low 0.7-1.2 [facility] EST. GFR, 120 ml/min/1.73sq.m [facility] EST. GFR,Non 99 ml/min/1.73sq.m [facility] GFR Information Average GFR for 50-59 years old = 93. 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 Kidney failure, GFR = <15. The GFR estimate is not adjusted for extreme body surface area or acute process, nor has it been validated for women or ethnic groups other than and . Glucose [Mass/Vol] 369 mg/dL High 70-100 [facility] Comment on above: Result Comment: NORMAL <100 mg/dL PREDIABETES 101-126 mg/dL DIABETES 126 mg/dL or higher PHOSPHOROUS 3.5 MG/DL Normal 2.5-4.5 [facility] Potassium [Moles/Vol] 4.2 mmol/L Normal 3.5-5.1 [facility] Sodium [Moles/Vol] 133 mmol/L Low 137-145 [facility] Urea nitrogen [Mass/Vol] 16 mg/dL Normal 7-20 [facility] TROPONIN I, HIGH SENSITIVITY on 06-21-2022 TROPONIN I, HIGH SENSITIVITY 9 pg/mL Normal 0-12 [facility] Comment on above: Result Comment: Indeterminant: >12 to 100 pg/mL female >20 to 100 pg/mL male Indicative of myocardial injury. Serial sampling is recommended, a change of greater than or equal to 20 pg/mL is indicative of acute coronary syndrome. TROPONIN I, HIGH SENSITIVITY 9 pg/mL 0 - 12 pg/mL [facility] Comment on above: Indeterminant: >12 to 100 pg/mL female >20 to 100 pg/mL male Indicative of myocardial injury. Serial sampling is recommended, a change of greater than or equal to 20 pg/mL is indicative of acute coronary syndrome. [facility] URINALYSIS, MACROon 06-21-20 22 Bilirubin Ql (U) SMALL Abnormal NEGATIVE [facility] Clarity (U) CLEAR CLEAR [facility] Color (U) YELLOW YELLOW [facility] Glucose Test strip (U) [Mass/Vol] 500 mg/dl Abnormal NEGATIVE [facility] Hemoglobin Ql (U) SMALL Abnormal NEGATIVE [facility] Interpretation and review of laboratory results Abnormal [facility] Ketones (U) [Mass/Vol] mg/dL Abnormal NEGAT JORDAN mg/dl [facility] Leukocyte esterase Test strip Ql (U) Negative NEGATIVE [facility] Nitrite Ql (U) Negative NEGATIVE [facility] pH (U) 5.5 [pH] 5.0 - 7.0 [facility] Protein Ql (U) 100 mg/dl Abnormal NEGATIVE [facility] Specific gravity (U) [Rel density] >1.030 High 1.010 - 1.025 [facility] Urobilinogen (U) [Mass/Vol] 0.2 mg/dL [facility] URINE MACROSCOPICon 06-21-20 22 Bilirubin Ql (U) SMALL Abnormal NEGATIVE [facility] Clarity (U) CLEAR Normal CLEAR [facility] Color (U) YELLOW Normal YELLOW [facility] Glucose Ql (U) 500 mg/dl Abnormal NEGATIVE [facility] pH (U) 5.5 [pH] Normal 5.0-7.0 [facility] Protein (U) [Mass/Vol] 100 mg/dL Abnormal NEGATIVE [facility] URINE HEMOGLOBIN SMALL Abnormal NEGATIVE [facility] URINE KETONE >160 Abnormal NEGATIVE [facility] URINE LEUKOTEST Negative Normal NEGATIVE [facility] URINE NITRATES Negative Normal NEGATIVE [facility] URINE SPEC GRAVITY >1.030 High 1.010-1.025 [facility] Urobilinogen Qn (U) 0.2 {Verenice'U}/dL Normal 0.2-1.0 [facility] URINE MICROSCOPICon 06-21-20 22 Bacteria LM.HPF (Urine sed) [#/Area] Negative Normal NEGATIVE [facility] CASTS NONE Normal NONE [facility] CRYSTAL NONE Normal NONE [facility] Epithelial cells LM Ql (Urine sed) 1 TO 5 Normal [facility] Mucus Ql (Urine sed) Negative Normal NEGATIVE [facility] URINE COMMENT CULTURE CRITERIA NOT MET, NO CULTURE PERFORMED. Normal [facility] URINE RBC'S 1 TO 5 Normal NEGATIVE [facility] URINE WBC'S 1 TO 5 Normal NEGATIVE [facility] Bacteria LM.HPF (Urine sed) [#/Area] Negative NEGATIVE [facility] Casts LM.LPF (Urine sed) [#/Area] NONE NONE /LPF [facility] Crystals LM Nom (Urine sed) NONE NONE [facility] Epithelial cells LM Ql (Urine sed) 1 TO 5 /HPF [facility] Mucus Ql (Urine sed) Negative NEGATIVE [facility] RBC LM.HPF (Urine sed) [#/Area] 1 TO 5 NEGATIVE /HPF [facility] Urine sediment comments LM Brian (Urine sed) CULTURE CRITERIA NOT MET, NO CULTURE PERFORMED. [facility] WBC LM.HPF (Urine sed) [#/Area] 1 TO 5 NEGATIVE /HPF [facility] VENOUS BLOOD GASon 2 BASE DEFICIT 21.3 mEq/L High 0-2 [facility] cHCO3 (P,ST)C 6.5 mEq/L Low 22-26 [facility] ctHb 17.1 g/dl Normal [facility] FCOHb 0.6 % Normal [facility] FMetHb 0.0 % Normal [facility] FO2Hb 68.0 % Normal [facility] pCO2, venous or cap 21 mmHg Low 41-51 [facility] pH,venous or cap 7.10 Critically low 7.31-7.41 [facility] Comment on above: Result Comment: CALL ED TO AND READ BACK BY Lonnie CHO 12..22 @6237 [facility] pO2,venous or cap 39 mmHg Normal 35-42 [facility] sO2,venous or cap 68.4 % Normal 68-77 [facility] MA CONTINUOUS GLUCOSE MONITO RING ANALYSIS I&Henrique 04-07-2022 Manish Shea MD 04/07/2022 3:20 PM CGM download shows 0% of blood sugars at target range, 2% high, 98% very high, GMI = 12.1%. Hyperglycemia at all timeframes. Lowest blood sugars approximately 200 mg/dL. This CGM download, we discussed insulin therapy versus bariatric surgery. [facility] Manish Shea MD - 04/07/2022 2:15 PM EDT CGM download shows 0% of blood sugars at target range, 2% high, 98% very high, GMI = 12.1%. Hyperglycemia at all timeframes. Lowest blood sugars approximately 200 mg/dL. This CGM download, we discussed insulin therapy versus bariatric surgery. [facility] MA CONTINUOUS GLUCOSE MONITO RING ANALYSIS I&ROrdered By: Maylin Stone on 04-07-2022 [facility] Microalb.,Random Uron 2021 Creatinine [Mass/Vol] 48.5 mg/dL Normal 28.0-217.0 [facility] Comment on above: Performed By: #### C BC, CP, ZFAST #### [facility] [address] [place] [address] Customer Service Advisor: Miller Shirley MD #### CPEP, LIPR, URNMAB #### [address] [phone] Customer Service Advisor: Jin Louise MD Microalb/Creat Ratio 223 mcg/mg creat High <25 [facility] Comment on above: Performed By: #### C BC, CP, ZFAST #### [facility] [address], [place] [phone] Customer Service Advisor: Miller Shirley MD #### CPEP, LIPR, URNMAB #### [address] [phone] Customer Service Advisor: Jin Louise MD Microalbumin conc. 108 mg/L High <21 [facility] Comment on above: Performed By: #### C BC, CP, ZFAST #### [facility] [address] [place] [address] Customer Service Advisor: Miller Shirley MD #### CPEP, LIPR, URNMAB #### [address] [phone] Customer Service Advisor: Jin Louise MD C-Peptideon 03-29-2022 C-Peptide 2.4 ng/mL Normal 1.1-4.4 [facility] Comment on above: Performed By: #### U RC #### [address] [phone] Customer Service Advisor: Jin Louise MD [facility] [address] [place] [phone] Customer Service Advisor: Miller Shirley MD C-Peptide 2.4 ng/mL 1.1 - 4.4 ng/mL [facility] CBC with Auto Differentialon 03-29-2022 Absolute Eos # 0.10 [facility] Absolute Lymph # 1.40 [facility] Absolute Aurora # 0.40 [facility] Basophils (Bld) [#/Vol] 0.00 10*3/uL [facility] Basophils/100 WBC (Bld) 1 % 0 - 2 % B ON [facility] Differential Type YES [facility] Eosinophils/100 WBC (Bld) 2 % 0 - 5 % [facility] Hematocrit (Bld) [Volume fraction] 44.7 % 36 - 46 % [facility] Hemoglobin (Bld) [Mass/Vol] 14.7 g/dL 12 - 16 g/dL [facility] Interpretation and review of laboratory results Abnormal [facility] Lymphocytes/100 WBC (Bld) 29 % 15 - 40 % [facility] MCH (RBC) [Entitic mass] 28.0 pg 26 - 34 pg [facility] MCHC (RBC) [Mass/Vol] 33.0 g/dL 31 - 37 g/dL B ON [facility] MCV (RBC) [Entitic vol] 85.1 fL 80 - 100 fL [facility] Monocytes/100 WBC (Bld) 9 % High 4 - 8 % B ON [facility] Platelet distribution width (Bld) [Ratio] 13.9 % 12.1 - 15.2 % [facility] Platelets (Bld) [#/Vol] 291 10*3/uL [facility] RBC (Bld) [#/Vol] 5.25 10*6/uL High 4 - 5.2 m/uL [facility] Segmented neutrophils/100 WBC (Bld) 59 % 47 - 75 % [facility] Segs Absolute 2.80 [facility] WBC (Bld) [#/Vol] 4.7 10*3/uL [facility] CBC with Diffon 03-29-2022 Abs. Basophil 0.00 k/uL Normal 0.0-0.2 [facility] Comment on above: Performed By: #### U RC #### [facility] [address] [place] [address] Customer Service Advisor: Jin Louise MD [facility] [address] [place] [address] [phone] Customer Service Advisor: Miller Shirley MD Abs.Neutrophil (Seg) 2.80 k/uL Normal 2.5-7.0 [facility] Comment on above: Performed By: #### U RC #### [facility] [address] [place] [address] Customer Service Advisor: Jin Louise MD [facility] [address] [place] [address] Customer Service Advisor: Miller Shirley MD Auto Diff Performed YES Normal [facility] Comment on above: Performed By: #### U RC #### [address] [address] Customer Service Advisor: Jin Louise MD [facility] [address] [place] [address] Customer Service Advisor: Miller Shirley MD Basophils/100 WBC (Bld) 1 % Normal 0-2 [facility] Comment on above: Performed By: #### U RC #### [facility] [address] [place] [address] Customer Service Advisor: Jin Louise MD [facility] [address] [place] [address] Customer Service Advisor: Miller Shirley MD Eosinophils (Bld) [#/Vol] 0.10 10*3/uL Normal 0.0-0.4 [facility] Comment on above: Performed By: #### U RC #### [facility] [address] [place] [address] Customer Service Advisor: Jin Louise MD [facility] [address] [place] [address] Customer Service Advisor: Miller Shirley MD Eosinophils/100 WBC (Bld) 2 % Normal 0-5 [facility] Comment on above: Performed By: #### U RC #### [facility] [address] [place] [address] Customer Service Advisor: Jin Louise MD [facility] [address] [place] [address] Customer Service Advisor: Miller Shirley MD Erythrocyte distribution width (RBC) [Ratio] 13.9 % Normal 12.1-15.2 [facility] Comment on above: Performed By: #### U RC #### [facility] [address] [place] [address] Customer Service Advisor: Jin Louise MD [facility] [address], [place] [phone] Customer Service Advisor: Miller Shirley MD Hematocrit (Bld) [Volume fraction] 44.7 % Normal 36-46 [facility] Comment on above: Performed By: #### U RC #### [facility] [address] [place] [address] Customer Service Advisor: Jni Louise MD [facility] [address] [place] [address] Customer Service Advisor: Miller Shirley MD Hemoglobin (Bld) [Mass/Vol] 14.7 g/dL Normal 12.0-16.0 [facility] Comment on above: Performed By: #### U RC #### [facility] [address] [place] [address] Customer Service Advisor: Jin Louise MD [facility] [address] [place] [address] Customer Service Advisor: Miller Shirley MD Lymphocytes (Bld) [#/Vol] 1.40 10*3/uL Normal 1.0-4.8 [facility] Comment on above: Performed By: #### U RC #### [facility] [address] [place] [address] Customer Service Advisor: Jin Louise MD [facility] [address], [place] [phone] Customer Service Advisor: Miller Shirley MD Lymphocytes/100 WBC (Bld) 29 % Normal 15-40 [facility] Comment on above: Performed By: #### U RC #### [facility] [address] [place] [address] Customer Service Advisor: Jin Louise MD [facility] [address], [place] [phone] Customer Service Advisor: Miller Shirley MD MCH (RBC) [Entitic mass] 28.0 pg Normal 26-34 [facility] Comment on above: Performed By: #### U RC #### [facility] [address] [place] [address] Customer Service Advisor: Jin Louise MD [facility] [address], [place] [phone] Customer Service Advisor: Miller Shirley MD MCHC (RBC) [Mass/Vol] 33.0 g/dL Normal 31-37 [facility] Comment on above: Performed By: #### U RC #### [facility] [address] [place] [address] Customer Service Advisor: Jin Louise MD [facility] [address], [place] [phone] Customer Service Advisor: Miller Shirley MD MCV (RBC) [Entitic vol] 85.1 fL Normal 80-100 [facility] Comment on above: Performed By: #### U RC #### [address] [address] Customer Service Advisor: Jin Louise MD [facility] [address] [place], [place] [phone] Customer Service Advisor: Miller Shirley MD Monocytes (Bld) [#/Vol] 0.40 10*3/uL Normal 0.0-1.0 [facility] Comment on above: Performed By: #### U RC #### [address] [address] Customer Service Advisor: Jin Louise MD [facility] [address] [place] [address] Customer Service Advisor: Miller Shirley MD Monocytes/100 WBC (Bld) 9 % High 4-8 [facility] Comment on above: Performed By: #### U RC #### [facility] [address] [place] [address] Customer Service Advisor: Jin Louise MD [facility] [address] [place] [address] Customer Service Advisor: Miller Shirley MD Neutrophil (Seg) 59 % Normal 47-75 [facility] Comment on above: Performed By: #### U RC #### [facility] [address] [place] [address] Customer Service Advisor: Jin Louise MD [facility] [address] [place] [address] Customer Service Advisor: Miller Shirley MD Platelets (Bld) [#/Vol] 291 10*3/uL Normal 140-450 [facility] Comment on above: Performed By: #### U RC #### [facility] [address] [place] [address] Customer Service Advisor: Jin Louise MD [facility] [address] [place] [address] Customer Service Advisor: Miller Shirley MD RBC (Bld) [#/Vol] 5.25 10*6/uL High 4.0-5.2 [facility] Comment on above: Performed By: #### U RC #### [facility] [address] [place] [address] Customer Service Advisor: Jin Louise MD [facility] [address] [place] [address] Customer Service Advisor: Miller Shirley MD WBC (Bld) [#/Vol] 4.7 10*3/uL Normal 3.5-11.0 [facility] Comment on above: Performed By: #### U RC #### [facility] [address] [place] [address] Customer Service Advisor: Jin Louise MD [facility] [address], [place] [phone] Customer Service Advisor: Miller Shirley MD Comp Metabolic Profon 2021 GFR, Amer Can not be calculated Normal >60 [facility] Comment on above: Performed By: #### U RC #### [facility] [address] [place] [address] Customer Service Advisor: Jin Louise MD [facility] [address] [facility] [place], [place] [phone] Customer Service Advisor: Miller Shirley MD GFR,non Amer Can not be calculated Normal >60 [facility] Comment on above: Performed By: #### U RC #### [facility] [address] [place] [address] Customer Service Advisor: Jin Louise MD [facility] [address] [place], [place] [phone] Customer Service Advisor: Millre Shirley MD (cont.) [facility] Comment on above: Result Comment: Aver age GFR for 50-59 years old: 93 mL/min/1.73sq m Chronic Kidney Disease: <60 mL/min/1.73sq m Kidney failure: <15 mL/min/1.73sq m eGFR calculated using average adult body mass. Additional eGFR calculator available at: http://www.[employer].Alma Johns/multiple_crcl_2012.htm Performed By: #### U RC #### [facility] [address] [place] [address] Customer Service Advisor: Jin Louise MD [facility] [address], [place] [phone] Customer Service Advisor: Miller Shirley MD Albumin [Mass/Vol] 4.1 g/dL Normal 3.5-5.2 [facility] Comment on above: Performed By: #### U RC #### [facility] [address] [place] [address] Customer Service Advisor: Jin Louise MD [facility] [address] [place] [address] Customer Service Advisor: Miller Shirley MD Alkaline Phos 87 U/L Normal 35-104 [facility] Comment on above: Performed By: #### U RC #### [facility] [address] [place] [address] Customer Service Advisor: Jin Louise MD [facility] [address] [place] [address] Customer Service Advisor: Miller Shirley MD ALT [Catalytic activity/Vol] 44 U/L High 5-33 [facility] Comment on above: Performed By: #### U RC #### [facility] [address] [place] [address] Customer Service Advisor: Jin Louise MD [facility] [address] [place] [address] Customer Service Advisor: Miller Shirley MD Anion gap [Moles/Vol] 12 mmol/L Normal 9-17 [facility] Comment on above: Performed By: #### U RC #### [facility] [address] [place] [address] Customer Service Advisor: Jin Louise MD [facility] [address] [place] [address] Customer Service Advisor: Miller Shirley MD AST [Catalytic activity/Vol] 23 U/L Normal <32 [facility] Comment on above: Performed By: #### U RC #### [facility] [address] [place] [address] Customer Service Advisor: Jin Louise MD [facility] [address] [place] [address] Customer Service Advisor: Miller Shirley MD Bilirubin [Mass/Vol] 0.2 mg/dL Low 0.30-1.20 [facility] Comment on above: Performed By: #### U RC #### [facility] [address] [place] [address] Customer Service Advisor: Jin Louise MD [facility] [address] [place] [address] Customer Service Advisor: Miller Shirley MD BUN/CRE Ratio Result cannot be calculated, Creatinine below linear range. Normal 9-20 [facility] Comment on above: Performed By: #### U RC #### [facility] [address] [place] [address] Customer Service Advisor: Jin Louise MD [facility] [address] [place] [address] Customer Service Advisor: Miller Shirley MD Calcium [Mass/Vol] 9.8 mg/dL Normal 8.6-10.4 [facility] Comment on above: Performed By: #### U RC #### [facility] [address] [place] [address] Customer Service Advisor: Jin Louise MD [facility] [address] [place] [address] Customer Service Advisor: Miller Shirley MD Chloride [Moles/Vol] 95 mmol/L Low 98-107 [facility] Comment on above: Performed By: #### U RC #### [facility] [address] [place] [address] Customer Service Advisor: Jin Louise MD [facility] [address] [place] [address] Customer Service Advisor: Miller Shirley MD CO2 [Moles/Vol] 29 mmol/L Normal 20-31 [facility] Comment on above: Performed By: #### U RC #### [facility] [address] [place] [address] Customer Service Advisor: Jin Louise MD [facility] [address] [place] [address] Customer Service Advisor: Miller Shirley MD Creatinine [Mass/Vol] mg/dL Low 0.50-0.90 [facility] Comment on above: Performed By: #### U RC #### [facility] [address] [place] [address] Customer Service Advisor: Jin Louise MD [facility] [address] [place] [address] Customer Service Advisor: Miller Shirley MD Glucose [Mass/Vol] 383 mg/dL High 70-99 [facility] Comment on above: Performed By: #### U RC #### [facility] [address] [place] [address] Customer Service Advisor: Jin Louise MD [facility] [address] [place] [address] Customer Service Advisor: Miller Shirley MD Potassium [Moles/Vol] 4.9 mmol/L Normal 3.7-5.3 [facility] Comment on above: Performed By: #### U RC #### [facility] [address] [place] [address] Customer Service Advisor: Jin Louise MD [facility] [address] [place] [address] Customer Service Advisor: Miller Shirley MD Protein [Mass/Vol] 6.9 g/dL Normal 6.4-8.3 [facility] Comment on above: Performed By: #### U RC #### [facility] [address] [place] [address] Customer Service Advisor: Jin Louise MD [facility] [address] [place] [address] Customer Service Advisor: Miller Shirley MD Sodium [Moles/Vol] 136 mmol/L Normal 135-144 [facility] Comment on above: Performed By: #### U RC #### [facility] [address] [place] [address] Customer Service Advisor: Jin Louise MD [facility] [address] [place] [address] Customer Service Advisor: Miller Shirley MD Urea nitrogen [Mass/Vol] 10 mg/dL Normal 6-20 [facility] Comment on above: Performed By: #### U #### [facility] [address], [place] [phone] Customer Service Advisor: Jin Louise MD [facility] [address] [place] [address] Customer Service Advisor: Miller Shirley MD Comprehensive Metabolic [facility] 03-29-2022 Albumin [Mass/Vol] 4.1 g/dL 3.5 - 5.2 g/dL [facility] ALP (Bld) [Catalytic activity/Vol] 87 U/L 35 - 104 U/L [facility] ALT [Catalytic activity/Vol] 44 U/L High 5 - 33 U/L [facility] Anion gap [Moles/Vol] 12 mmol/L 9 - 17 mmol/L [facility] AST [Catalytic activity/Vol] 23 U/L NINF - 32 U/L [facility] Bilirubin [Mass/Vol] 0.2 mg/dL Low 0.3 - 1 .2 mg/dL [facility] Calcium [Mass/Vol] 9.8 mg/dL 8.6 - 10. 4 mg/dL [facility] Chloride [Moles/Vol] 95 mmol/L Low 98 - 10 7 mmol/L [facility] CO2 [Moles/Vol] 29 mmol/L 20 - 31 mmol/L [facility] Creatinine [Mass/Vol] mg/dL Low 0.5 - 0.9 mg/dL [facility] Free PSA/Total PSA [Mass fraction] 6.9 g/dL 6.4 - 8.3 g/dL [facility] GFR Can not be calculated 60 - PINF mL/min [facility] GFR Non- Can not be calculated 60 - PINF mL/min [facility] GFR/1.73 sq M.predicted MDRD (S/P/Bld) [Vol rate/Area] [facility] Comment on above: Average GFR for 50-5 9 years old: 93 mL/min/1.73sq m Chronic Kidney Disease: <60 mL/min/1.73sq m Kidney failure: <15 mL/min/1.73sq m eGFR calculated using average adult body mass. Additional eGFR calculator available at: http://www.[employer]/multiple_crcl_2012.htm Glucose [Mass/Vol] 383 mg/dL High 70 - 99 mg/dL [facility] Interpretation and review of laboratory results Abnormal [facility] Potassium [Moles/Vol] 4.9 mmol/L 3.7 - 5.3 mmol/L [facility] Sodium [Moles/Vol] 136 mmol/L 135 - 144 mmol/L [facility] Urea nitrogen (BldV) [Mass/Vol] 10 mg/dL 6 - 20 mg/dL [facility] Urea nitrogen/Creatinine (Bld) [Mass ratio] Result cannot be calculated, Creatinine below linear range. 9 - 20 [facility] Hemoglobin A1Con 03-29-2022 Glucose [Mass/Vol] 306 mg/dL Normal [facility] Comment on above: Result Comment: The ADA and AACC recommend providing the estimated average glucose result to permit better patient understanding of their HBA1c result. Performed By: #### U RC #### [facility] [address], [place] [phone] Customer Service Advisor: Jin Louise MD [facility] [address] [place] [address] Customer Service Advisor: Miller Shirley MD HbA1c (Bld) [Mass fraction] 12.3 % High 4.0-6.0 [facility] Comment on above: Performed By: #### U RC #### [facility] [address] [place] [address] Customer Service Advisor: Jin Louise MD [facility] [address] [place], [place] [phone] Customer Service Advisor: Miller Shirley MD Glucose [Mass/Vol] 306 mg/dL [facility] Comment on above: The ADA and AACC rec ommend providing the estimated average glucose result to permit better patient understanding of their HBA1c result. HbA1c (Bld) [Mass fraction] 12.3 % High 4 - 6 % [facility] Interpretation and review of laboratory results Abnormal [facility] Insulinon 03-29-2022 Insulin 7.9 mU/L [facility] Comment on above: Performed By: #### U RC #### [address] [address] Customer Service Advisor: iJn Louise MD [facility] [address] [place], [place] [phone] Customer Service Advisor: Miller Shirley MD Reference Range [facility] Comment on above: Result Comment: Fast in.6-24.9 30 min: 20-112 60 min: 29-88 90 min: 26-84 120 min: 22-79 Performed By: #### U RC #### [address] [address] Customer Service Advisor: Jin Louise MD [facility] [address] [place], [place] [phone] Customer Service Advisor: Miller Shirley MD Collection Info. FASTING [facility] Comment on above: Performed By: #### U RC #### [address] [address] Customer Service Advisor: Jin Louise MD [facility] [address] [place], [place] [phone] Customer Service Advisor: Miller Shirley MD Insulin, totalon 03-29-2022 Insulin 7.9 mU/L [facility] Insulin Comment FASTING [facility] Insulin Reference Range: [facility] Comment on above: Fastin.6-24.9 30 min: 20-112 60 min: 29-88 90 min: 26-84 120 min: 22-79 LDL Chol, Directon 2 LDL Chol, Direct 235 mg/dL High <100 [facility] Comment on above: Performed By: #### C BC, CP, ZFAST #### [facility] [address] [place] [address] Customer Service Advisor: Miller Shirley MD #### CPEP, LIPR, URNMAB #### [facility] [address] [place], [place] [phone] Customer Service Advisor: Jin Louise MD LDL Cholesterol, Directon Cholesterol in LDL [Mass/Vol] 235 mg/dL High NINF - 100 mg/dL [facility] Interpretation and review of laboratory results Abnormal [facility] Lipid Panelon 03-29-2022 Cholesterol [Mass/Vol] 360 mg/dL High NINF - 200 mg/dL [facility] Comment on above: Cholesterol Guidelines: <200 Desirable 200-240 Borderline >240 Undesirable Cholesterol in HDL [Mass/Vol] 46 mg/dL 40 - PINF mg/dL [facility] Comment on above: HDL Guidelines: <40 Undesirable 40-59 Borderline >59 Desirable Cholesterol.total/Choles terol in HDL [Mass ratio] 7.8 {ratio} High NINF - 5 [facility] Interpretation and review of laboratory results Abnormal [facility] LDL Cholesterol 0 - 130 mg/dL [facility] Comment on above: Calculation not sonia d for Triglyceride value greater than 400 mg/dL. Direct LDL reflexed LDL Guidelines: <100 Desirable 100-129 Near to/above Desirable 130-159 Borderline >159 Undesirable Direct (measured) LDL and calculated LDL are not interchangeable tests. Triglyceride [Mass/Vol] 475 mg/dL High NINF - 150 mg/dL [facility] Comment on above: Triglyceride Guidelines: <150 Desirable 150-199 Borderline 200-499 High >499 Very high Based on AHA Guidelines for fasting triglyceride, April 2012. [facility] Lipid Profileon 03-29-2022 Cholesterol,LDL Normal 0-130 [facility] Comment on above: Result Comment: Calc ulation not valid for Triglyceride value greater than 400 mg/dL. Direct LDL reflexed LDL Guidelines: <100 Desirable 100-129 Near to/above Desirable 130-159 Borderline >159 Undesirable Direct (measured) LDL and calculated LDL are not interchangeable tests. Performed By: #### Lucy ROMERO CP, ZFAST #### [facility] [address] [place] [address] Customer Service Advisor: Miller Shirley MD #### CPEP, LIPR, URNMAB #### [address] [address] Customer Service Advisor: Jin Louise MD Cholesterol [Mass/Vol] 360 mg/dL High <200 [facility] Comment on above: Result Comment: Cholesterol Guidelines: <200 Desirable 200-240 Borderline >240 Undesirable Performed By: #### Lucy ROMERO CP, ZFAST #### [facility] [address] [place] [address] Customer Service Advisor: Miller Shirley MD #### CPEAryan, LIPR, URNMAB #### [address] [address] Customer Service Advisor: Jin Louise MD Cholesterol in HDL [Mass/Vol] 46 mg/dL Normal >40 [facility] Comment on above: Result Comment: HDL Guidelines: <40 Undesirable 40-59 Borderline >59 Desirable Performed By: #### Lucy ROMERO CP, ZFAST #### [facility] [address] [place] [address] Customer Service Advisor: Miller Shirley MD #### CPEP, LIPR, URNMAB #### [address] [address] Customer Service Advisor: Jin Louise MD Cholesterol.total/Choles terol in HDL [Mass ratio] 7.8 {ratio} High <5 [facility] Comment on above: Performed By: #### Lucy ROMERO CP, ZFAST #### [facility] [address] [place], [place] [phone] Customer Service Advisor: Miller Shirely MD #### CPEP, LIPR, URNMAB #### [address] [phone] Customer Service Advisor: Jin Louise MD Triglyceride [Mass/Vol] 475 mg/dL High <150 [facility] Comment on above: Result Comment: Triglyceride Guidelines: <150 Desirable 150-199 Borderline 200-499 High >499 Very high Based on AHA Guidelines for fasting triglyceride, April 2012. Performed By: #### C BC, CP, ZFAST #### [facility] [address], [place] [phone] Customer Service Advisor: Miller Shirley MD #### CPEAryan, LIPR, URNMAB #### [address] [phone] Customer Service Advisor: Jin Louise MD No Panel Informationon 03-29 [facility] Patient Fasting?on 2 Patient Fasting? YES [facility] Patient fasting?on 2 Patient fasting? YES [facility] Comment on above: Performed By: #### U RC #### [address] [address] Customer Service Advisor: Jin Louise MD [facility] [address] [place], [place] [phone] Customer Service Advisor: Miller Shirley MD Cult,Urineon 02-24-2022 Cult,Urine Specimen Description .CLEAN CATCH URINE Culture NO SIGNIFICANT GROWTH Report Status FINAL 02/24/2022 [facility] Comment on above: Performed By: #### U RC #### [address] [phone] Customer Service Advisor: Jin Louise MD [facility] [address] [place], [place] [address]48[address] Customer Service Advisor: Miller Shirley MD MA CONTINUOUS GLUCOSE MONITO RING ANALYSIS I&Henrique 02-03-2022 Manish Shea MD 02/03/2022 4:05 PM CGM download her showing 0% of blood sugars at target range, 6% high, 94% very high, GMI = 11.3%, no hypoglycemia. There is hyperglycemia at all timeframes. Small response to medications last visit, we will increased doses of GLP-1 and sulfonylurea. Insulin therapy recommended, but declined by patient. [facility] MA CONTINUOUS GLUCOSE MONITO RING ANALYSIS I&Henrique 12-09-2021 Manish Shea MD 12/09/2021 3:17 PM CGM download shows 0% of blood sugars at target, 1% high, 99% very high. Based on CGM download, we need to intensify pharmacologic therapy. She is already on a low-carb diet. [facility] Manish Shea MD - 12/09/2021 2:30 PM EDT CGM download shows 0% of blood sugars at target, 1% high, 99% very high. Based on CGM download, we need to intensify pharmacologic therapy. She is already on a low-carb diet. [facility] MA CONTINUOUS GLUCOSE MONITO RING ANALYSIS I&ROrdered By: Maylin Stone on 12-09-2021 [facility] Cortisolon 11-16-2021 Cortisol 0.9 ug/dL Low 2.7-18.4 [facility] Comment on above: Result Comment: Cortisol Reference Range: AM 6.0-18.4 PM 2.7-10.5 Performed By: #### C DEA ROMERO ZFAST #### [facility] [address] [place] [address] Customer Service Advisor: Miller Shirley MD #### CPEP, LIPR, URNMAB #### [facility] [address] [place] [address] Customer Service Advisor: Jin Louise MD Collection Info. AM Normal [facility] Comment on above: Performed By: #### C DEA ROMERO ZFAST #### [facility] [address] [place] [address] Customer Service Advisor: Miller Shirley MD #### CPEP, LIPR, URNMAB #### [facility] [address] [place] [address] Customer Service Advisor: Jin Louise MD Salivary Cortisolon 10-16-19 22 Salivary Cortisol See Note Normal [facility] Comment on above: Result Comment: (NOT E) Cortisol, saliva result is 0.160 ug/dL. Saliva specimen was contaminated with blood, which may falsely elevate cortisol results. Interpret results with caution and correlate with clinical scenario. INTERPRETIVE INFORMATION: Cortisol, Saliva For collection at 2300 hr. the normal cortisol concentration is less than 0.112 ug/dL. Patients with Cushings Syndrome have concentrations of 0.112 ug/dL or greater. a.m. ([id number]) p.m. (noon-1800) Males 2.5-7 years 0.034-0.645 ug/dL 0.053-0.607 ug/dL 8-11 years 0.084-0.839 ug/dL less than 0.215 ug/dL 12-18 years 0.021-0.883 ug/dL less than 0.259 ug/dL 19-30 years 0.112-0.743 ug/dL less than 0.308 ug/dL 31-50 years 0.122-1.551 ug/dL less than 0.359 ug/dL 51 and older 0.112-0.812 ug/dL less than 0.228 ug/dL Females 2.5-7 years 0.034-0.645 ug/dL 0.053-0.607 ug/dL 8-11 years 0.084-0.839 ug/dL less than 0.215 ug/dL 12-18 years 0.021-0.883 ug/dL less than 0.259 ug/dL 19-30 years 0.272-1.348 ug/dL less than 0.359 ug/dL 31-50 years 0.094-1.515 ug/dL less than 0.181 ug/dL 51 and older 0.149-0.739 ug/dL 0.022-0.254 ug/dL Performed by [facility], [address] [place] [address] [email or web address], Penelope Ncihols MD, Lab. Director Performed By: #### A [facility] #### [facility] [address] [place], [place] [phone] Customer Service Advisor: Brad Santana MD CBC with Diffon 10-08-2021 Abs. Basophil 0.00 k/uL Normal 0.0-0.2 [facility] Comment on above: Performed By: #### C BC, CP, ZFAST #### [facility] [address] [place] [address] Customer Service Advisor: Miller Shirley MD #### CPEP, LIPR, URNMAB #### [address] [phone] Customer Service Advisor: Jin Louise MD Abs.Neutrophil (Seg) 3.70 k/uL Normal 2.5-7.0 [facility] Comment on above: Performed By: #### C HEATHER CP, ZFAST #### [facility] [address] [place] [address] Customer Service Advisor: Miller Shirley MD #### CPEAryan, LIPR, URNMAB #### [address] [phone] Customer Service Advisor: Jin Louise MD Auto Diff Performed YES Normal [facility] Comment on above: Performed By: #### C BC, CP, ZFAST #### [facility] [address] [place] [address] Customer Service Advisor: Miller Shirley MD #### CPEP, LIPR, URNMAB #### [address] [phone] Customer Service Advisor: Jin Louise MD Basophils/100 WBC (Bld) 0 % Normal 0-2 [facility] Comment on above: Performed By: #### C BC, CP, ZFAST #### [facility] [address] [place], [place] [phone] Customer Service Advisor: Miller Shirley MD #### CPEP, LIPR, URNMAB #### [address] [phone] Customer Service Advisor: Jin Louise MD Eosinophils (Bld) [#/Vol] 0.10 10*3/uL Normal 0.0-0.4 [facility] Comment on above: Performed By: #### C HEATHER CP, ZFAST #### [facility] [address] [place] [address] Customer Service Advisor: Miller Shirley MD #### CPEP, LIPR, URNMAB #### [address] [phone] Customer Service Advisor: Jin Louise MD Eosinophils/100 WBC (Bld) 2 % Normal 0-5 [facility] Comment on above: Performed By: #### C HEATHER CP, ZFAST #### [facility] [address] [place] [address] Customer Service Advisor: Miller Shirley MD #### CPEP, LIPR, URNMAB #### [address] [phone] Customer Service Advisor: Jin Louise MD Erythrocyte distribution width (RBC) [Ratio] 14.3 % Normal 12.1-15.2 [facility] Comment on above: Performed By: #### C HEATHER CP, ZFAST #### [facility] [address] [place] [address] Customer Service Advisor: Miller Shirley MD #### CPEP, LIPR, URNMAB #### [address] [phone] Customer Service Advisor: Jin Louise MD Hematocrit (Bld) [Volume fraction] 45.8 % Normal 36-46 [facility] Comment on above: Performed By: #### Lucy ROMERO CP, ZFAST #### [facility] [address] [place], [place] [phone] Customer Service Advisor: Miller Shirley MD #### CPEP, LIPR, URNMAB #### [address] [phone] Customer Service Advisor: Jin Louise MD Hemoglobin (Bld) [Mass/Vol] 15.3 g/dL Normal 12.0-16.0 [facility] Comment on above: Performed By: #### Lucy ROMERO CP ZFAST #### [facility] [address] [place], [place] [phone] Customer Service Advisor: Miller Shirley MD #### CPEP, LIPR, URNMAB #### [address] [address] Customer Service Advisor: Jin Louise MD Lymphocytes (Bld) [#/Vol] 1.60 10*3/uL Normal 1.0-4.8 [facility] Comment on above: Performed By: #### Lucy ROMERO CP ZFAST #### [facility] [address] [place], [place] [phone] Customer Service Advisor: Miller Shirley MD #### CPEP, LIPR, URNMAB #### [address] [address] Customer Service Advisor: Jin Louise MD Lymphocytes/100 WBC (Bld) 26 % Normal 15-40 [facility] Comment on above: Performed By: #### Lucy ROMERO CP, ZFAST #### [facility] [address] [place], [place] [phone] Customer Service Advisor: Miller Shirley MD #### CPEP, LIPR, URNMAB #### [address] [address] Customer Service Advisor: Jin Louise MD MCH (RBC) [Entitic mass] 28.4 pg Normal 26-34 [facility] Comment on above: Performed By: #### Lucy ROMERO CP, ZFAST #### [facility] [address] [place], [place] [phone] Customer Service Advisor: Miller Shirley MD #### CPEP, LIPR, URNMAB #### [address] [phone] Customer Service Advisor: Jin Louise MD MCHC (RBC) [Mass/Vol] 33.4 g/dL Normal 31-37 [facility] Comment on above: Performed By: #### C DEA ROMERO, ZFAST #### [facility] [address] [place], [place] [phone] Customer Service Advisor: Miller Shirley MD #### MINOR, LIPR, URNMAB #### [address] [phone] Customer Service Advisor: Jin Louise MD MCV (RBC) [Entitic vol] 85.1 fL Normal 80-100 [facility] Comment on above: Performed By: #### Lucy ROMERO CP, ZFAST #### [facility] [address] [place], [place] [phone] Customer Service Advisor: Miller Shirley MD #### CPEAryan, LIPR, URNMAB #### [address] [phone] Customer Service Advisor: Jin Louise MD Monocytes (Bld) [#/Vol] 0.50 10*3/uL Normal 0.0-1.0 [facility] Comment on above: Performed By: #### Lucy ROMERO CP, ZFAST #### [facility] [address] [place], [place] [phone] Customer Service Advisor: Miller Shirley MD #### CPEP, LIPR, URNMAB #### [facility] [address] [place] [address] Customer Service Advisor: Jin Louise MD Monocytes/100 WBC (Bld) 8 % Normal 4-8 [facility] Comment on above: Performed By: #### C BC, CP, ZFAST #### [facility] [address] [place], [place] [phone] Customer Service Advisor: Miller Shirley MD #### CPEP, LIPR, URNMAB #### [facility] [address], [place] [phone] Customer Service Advisor: Jin Louise MD Neutrophil (Seg) 64 % Normal 47-75 [facility] Comment on above: Performed By: #### C BC, CP, ZFAST #### [facility] [address] [place], [place] 1656290 Customer Service Advisor: Miller Shirley MD #### CPEP, LIPR, URNMAB #### [facility] [address], [place] [phone] Customer Service Advisor: Jin Louise MD Platelets (Bld) [#/Vol] 328 10*3/uL Normal 140-450 [facility] Comment on above: Performed By: #### C BC, CP, ZFAST #### [facility] [address], [place] 324[address] Customer Service Advisor: Miller Shirley MD #### CPEP, LIPR, URNMAB #### [facility] [address], [place] [phone] Customer Service Advisor: Jin Louise MD RBC (Bld) [#/Vol] 5.38 10*6/uL High 4.0-5.2 [facility] Comment on above: Performed By: #### C BC, CP, ZFAST #### [facility] [address] [place] [address] Customer Service Advisor: Miller Shirley MD #### CPEP, LIPR, URNMAB #### [facility] [address], [place] [phone] Customer Service Advisor: Jin Louise MD WBC (Bld) [#/Vol] 5.9 10*3/uL Normal 3.5-11.0 [facility] Comment on above: Performed By: #### C DEA ROMERO, ZFAST #### [facility] [address], [place] [phone] Customer Service Advisor: Miller Shirley MD #### CPEP, LIPR, URNMAB #### [facility] [address], [place] [phone] Customer Service Advisor: Jin Louise MD Comp Metabolic Profon 2021 (cont.) Normal [facility] Comment on above: Result Comment: Aver age GFR for 50-59 years old: 93 mL/min/1.73sq m Chronic Kidney Disease: <60 mL/min/1.73sq m Kidney failure: <15 mL/min/1.73sq m eGFR calculated using average adult body mass. Additional eGFR calculator available at: http://[email or web address].Alma Johns/multiple_crcl_2011.htm Performed By: #### Lucy ROMERO CP, ZFAST #### [facility] [address] [place] [address] Customer Service Advisor: Miller Shirley MD #### CPEP, LIPR, URNMAB #### [facility] [address], [place] [phone] Customer Service Advisor: Jin Louise MD Albumin [Mass/Vol] 4.4 g/dL Normal 3.5-5.2 [facility] Comment on above: Performed By: #### Lucy ROMERO CP, ZFAST #### [facility] [address], [place] [phone] Customer Service Advisor: Miller Shirley MD #### CPEP, LIPR, URNMAB #### [facility] [address], [place] [phone] Customer Service Advisor: Jin Louise MD Alkaline Phos 93 U/L Normal 35-104 [facility] Comment on above: Performed By: #### C BC, CP, ZFAST #### [facility] [address], [place] 2160090 Customer Service Advisor: Miller Shirley MD #### CPEP, LIPR, URNMAB #### [facility] [address], [place] [phone] Customer Service Advisor: Jin Louise MD ALT [Catalytic activity/Vol] 45 U/L High 5-33 [facility] Comment on above: Performed By: #### C HEATHER CP, ZFAST #### [facility] [address], [place] [phone] Customer Service Advisor: Miller Shirley MD #### CPEP, LIPR, URNMAB #### [facility] [address], [place] [phone] Customer Service Advisor: Jin Louise MD Anion gap [Moles/Vol] 12 mmol/L Normal 9-17 [facility] Comment on above: Performed By: #### Lucy ROMERO CP, ZFAST #### [facility] [address], [place] 2799190 Customer Service Advisor: Miller Shirley MD #### CPEP, LIPR, URNMAB #### [facility] [address], [place] 2006008 Customer Service Advisor: Jin Louise MD AST [Catalytic activity/Vol] 27 U/L Normal <32 [facility] Comment on above: Performed By: #### C BC, CP, ZFAST #### [facility] [address], [place] [phone] Customer Service Advisor: Miller Shirley MD #### CPEP, LIPR, URNMAB #### [facility] [address], [place] 0649808 Customer Service Advisor: Jin Louise MD Bilirubin [Mass/Vol] 0.33 mg/dL Normal 0.30-1.20 [facility] Comment on above: Performed By: #### C BC, CP, ZFAST #### [facility] [address], [place] 1398390 Customer Service Advisor: Miller Shirley MD #### CPEP, LIPR, URNMAB #### [facility] [address], [place] [phone] Customer Service Advisor: Jin Louise MD BUN/CRE Ratio 28 High 9-20 [facility] Comment on above: Performed By: #### C HEATHER CP, ZFAST #### [facility] [address], [place] [phone] Customer Service Advisor: Miller Shirley MD #### CPEP, LIPR, URNMAB #### [address] [place], [place] 4593508 Customer Service Advisor: Jin Louise MD Calcium [Mass/Vol] 9.9 mg/dL Normal 8.6-10.4 [facility] Comment on above: Performed By: #### Lucy ROMERO CP, ZFAST #### [facility] [address], [place] [phone] Customer Service Advisor: Miller Shirley MD #### CPEP, LIPR, URNMAB #### [facility] [address], [place] [phone] Customer Service Advisor: Jin Louise MD Chloride [Moles/Vol] 94 mmol/L Low 98-107 [facility] Comment on above: Performed By: #### C BC, CP, ZFAST #### [facility] [address], [place] [phone] Customer Service Advisor: Miller Shirley MD #### CPEP, LIPR, URNMAB #### [address] [place] [address] Customer Service Advisor: Jin Louise MD CO2 [Moles/Vol] 25 mmol/L Normal 20-31 [facility] Comment on above: Performed By: #### C BC, CP, ZFAST #### [facility] [address], [place] [phone] Customer Service Advisor: Miller Shirley MD #### CPEP, LIPR, URNMAB #### [address] [phone] Customer Service Advisor: Jin Louise MD Creatinine [Mass/Vol] 0.40 mg/dL Low 0.50-0.90 [facility] Comment on above: Performed By: #### C BC, CP, ZFAST #### [facility] [address] [place], [place] [phone] Customer Service Advisor: Miller Shirley MD #### CPEP, LIPR, URNMAB #### [address] [phone] Customer Service Advisor: Jin Louise MD GFR, Amer >60 Normal >60 [facility] Comment on above: Performed By: #### C BC, CP, ZFAST #### [facility] [address] [place], [place] [phone] Customer Service Advisor: Miller Shirley MD #### CPEP, LIPR, URNMAB #### [address] [phone] Customer Service Advisor: Jin Louise MD GFR,non Amer >60 Normal >60 [facility] Comment on above: Performed By: #### C BC, CP, ZFAST #### [facility] [address], [place] [phone] Customer Service Advisor: Miller Shirley MD #### CPEP, LIPR, URNMAB #### [facility] [address] [place] [address] Customer Service Advisor: Jin Louise MD Glucose [Mass/Vol] 341 mg/dL High 70-99 [facility] Comment on above: Performed By: #### Lucy ROMERO CP, ZFAST #### [facility] [address], [place] [phone] Customer Service Advisor: Miller Shirley MD #### CPEP, LIPR, URNMAB #### [address] [phone] Customer Service Advisor: Jin Louise MD Potassium [Moles/Vol] 4.8 mmol/L Normal 3.7-5.3 [facility] Comment on above: Performed By: #### Lucy ROMERO CP, ZFAST #### [facility] [address], [place] [phone] Customer Service Advisor: Miller Shirley MD #### CPEP, LIPR, URNMAB #### [address] [phone] Customer Service Advisor: Jin Louise MD Protein [Mass/Vol] 7.3 g/dL Normal 6.4-8.3 [facility] Comment on above: Performed By: #### Lucy ROMERO CP, ZFAST #### [facility] [address], [place] [phone] Customer Service Advisor: Miller Shirley MD #### CPEP, LIPR, URNMAB #### [address] [place], [place] [phone] Customer Service Advisor: Jin Louise MD Sodium [Moles/Vol] 131 mmol/L Low 135-144 [facility] Comment on above: Performed By: #### Lucy ROMERO CP, ZFAST #### [facility] [address], [place] 2401990 Customer Service Advisor: Miller Shirley MD #### CPEP, LIPR, URNMAB #### [facility] [address], [place] [phone] Customer Service Advisor: Jin Louise MD Urea nitrogen [Mass/Vol] 11 mg/dL Normal 6-20 [facility] Comment on above: Performed By: #### Lucy ROMERO CP, ZFAST #### [facility] [address], [place] [phone] Customer Service Advisor: Miller Shirley MD #### CPEP, LIPR, URNMAB #### [facility] [address], [place] [phone] Customer Service Advisor: Jin Louise MD Hemoglobin A1Con 10-08-2021 Glucose [Mass/Vol] 303 mg/dL Normal [facility] Comment on above: Result Comment: The ADA and AACC recommend providing the estimated average glucose result to permit better patient understanding of their HBA1c result. Performed By: #### Lucy ROMERO CP, ZFAST #### [facility] [address], [place] [phone] Customer Service Advisor: Miller Shirley MD #### CPEP, LIPR, URNMAB #### [facility] [address], [place] 2647508 Customer Service Advisor: Jin Louise MD HbA1c (Bld) [Mass fraction] 12.2 % High 4.0-6.0 [facility] Comment on above: Performed By: #### uLcy ROMERO CP, ZFAST #### [facility] [address] [place], [place] [phone] Customer Service Advisor: Miller Shirley MD #### CPEP, LIPR, URNMAB #### [facility] [address], [place] [phone] Customer Service Advisor: Jin Louise MD LDL Chol, Directon 2 LDL Chol, Direct 254 mg/dL High <100 [facility] Comment on above: Performed By: #### Lucy ROMERO CP, ZFAST #### [facility] [address] [place], [place] [phone] Customer Service Advisor: Miller Shirley MD #### CPEP, LIPR, URNMAB #### [facility] [address], [place] [phone] Customer Service Advisor: Jin Louise MD Lipid Profileon 10-08-2021 Cholesterol,LDL Normal 0-130 [facility] Comment on above: Result Comment: Calc ulation not valid for Triglyceride value greater than 400 mg/dL. Direct LDL reflexed LDL Guidelines: <100 Desirable 100-129 Near to/above Desirable 130-159 Borderline >159 Undesirable Direct (measured) LDL and calculated LDL are not interchangeable tests. Performed By: #### Lucy ROMERO CP, ZFAST #### [facility] [address], [place] [phone] Customer Service Advisor: Miller Shirley MD #### CPEP, LIPR, URNMAB #### [facility] [address], [place] [phone] Customer Service Advisor: Jin Louise MD Cholesterol [Mass/Vol] 338 mg/dL High <200 [facility] Comment on above: Result Comment: Cholesterol Guidelines: <200 Desirable 200-240 Borderline >240 Undesirable Performed By: #### Lucy ROMERO CP, ZFAST #### [facility] [address], [place] [phone] Customer Service Advisor: Miller Shirley MD #### CPEP, LIPR, URNMAB #### [facility] [address], [place] [phone] Customer Service Advisor: Jin Louise MD Cholesterol in HDL [Mass/Vol] 50 mg/dL Normal >40 [facility] Comment on above: Result Comment: HDL Guidelines: <40 Undesirable 40-59 Borderline >59 Desirable Performed By: #### Lucy ROMERO CP, ZFAST #### [facility] [address], [place] [phone] Customer Service Advisor: Miller Shirley MD #### CPEP, LIPR, URNMAB #### [facility] [facility] [place], [place] [phone] Customer Service Advisor: Jin Louise MD Cholesterol.total/Choles terol in HDL [Mass ratio] 6.8 {ratio} High <5 [facility] Comment on above: Performed By: #### Lucy ROMERO CP ZFAST #### [facility] [address] [place], [place] 1880690 Customer Service Advisor: Miller Shirley MD #### MINOR, LIPR, URNMAB #### [address] [phone] Customer Service Advisor: Jin Louise MD Triglyceride [Mass/Vol] 406 mg/dL High <150 [facility] Comment on above: Result Comment: Triglyceride Guidelines: <150 Desirable 150-199 Borderline 200-499 High >499 Very high Based on AHA Guidelines for fasting triglyceride, April 2012. Performed By: #### Lucy ROMERO CP ZFAST #### [facility] [address] [place], [place] [phone] Customer Service Advisor: Miller Shirley MD #### MINOR, LIPR, URNMAB #### [address] [address] Customer Service Advisor: Jin Louise MD Microalb.,Random Uron 2021 Creatinine [Mass/Vol] 61.1 mg/dL Normal 28.0-217.0 [facility] Comment on above: Performed By: #### Lucy ROMERO CP ZFAST #### [facility] [address] [place], [place] [phone] Customer Service Advisor: Miller Shirley MD #### CPEP, LIPR, URNMAB #### [address] [place], [place] [phone] Customer Service Advisor: Jin Louise MD Microalb/Creat Ratio 77 mcg/mg creat High <25 [facility] Comment on above: Performed By: #### Lucy ROMERO CP, ZFAST #### [facility] [address] [place], [place] [phone] Customer Service Advisor: Miller Shirley MD #### CPEP, LIPR, URNMAB #### [address] [phone] Customer Service Advisor: Jin Louise MD Microalbumin conc. 47 mg/L High <21 [facility] Comment on above: Performed By: #### Lucy ROMERO CP, ZFAST #### [facility] [address] [place], [place] [phone] Customer Service Advisor: Miller Shirley MD #### CPEP, LIPR, URNMAB #### [address] [phone] Customer Service Advisor: Jin Louise MD Patient fasting?on 2 Patient fasting? YES Normal [facility] Comment on above: Performed By: #### Lucy ROMERO CP, ZFAST #### [facility] [address] [place], [place] [phone] Customer Service Advisor: Miller Shirley MD #### CPEP, LIPR, URNMAB #### [address] [phone] Customer Service Advisor: Jin Louise MD C-Peptideon 08-12-2021 C-Peptide 2.0 ng/mL Normal 1.1-4.4 [facility] Comment on above: Performed By: #### Lucy ROMERO CP, ZFAST #### [facility] [address] [place], [place] [phone] Customer Service Advisor: Miller Shirley MD #### CPEP, LIPR, URNMAB #### [address] [phone] Customer Service Advisor: Jin Louise MD Lipid Profileon 08-12-2021 Cholesterol [Mass/Vol] 360 mg/dL High <200 [facility] Comment on above: Result Comment: Cholesterol Guidelines: <200 Desirable 200-240 Borderline >240 Undesirable Performed By: #### Lucy ROMERO CP, ZFAST #### [facility] [address] [place], [place] [phone] Customer Service Advisor: Miller Shirley MD #### CPEP, LIPR, URNMAB #### [facility] [address] [place], [place] [phone] Customer Service Advisor: Jin Louise MD Cholesterol in HDL [Mass/Vol] 44 mg/dL Normal >40 [facility] Comment on above: Result Comment: HDL Guidelines: <40 Undesirable 40-59 Borderline >59 Desirable Performed By: #### Lucy ROMERO CP, ZFAST #### [facility] [address] [place] [address] Customer Service Advisor: Miller Shirley MD #### CPEAryan, LIPR, URNMAB #### [facility] [address] [place], [place] [phone] Customer Service Advisor: Jin Louise MD Cholesterol in LDL [Mass/Vol] 239 mg/dL High 0-130 [facility] Comment on above: Result Comment: LDL Guidelines: <100 Desirable 100-129 Near to/above Desirable 130-159 Borderline >159 Undesirable Direct (measured) LDL and calculated LDL are not interchangeable tests. Performed By: #### Lucy ROMERO CP, ZFAST #### [facility] [address] [place], [place] [phone] Customer Service Advisor: Miller Shirley MD #### CPEP, LIPR, URNMAB #### [facility] [address] [place], [place] [phone] Customer Service Advisor: Jin Louise MD Cholesterol.total/Choles terol in HDL [Mass ratio] 8.2 {ratio} High <5 [facility] Comment on above: Performed By: #### Lucy ROMERO CP, ZFAST #### [facility] [address] [place], [place] [phone] Customer Service Advisor: Miller Shirley MD #### CPEP, LIPR, URNMAB #### [address] [place], [place] [phone] Customer Service Advisor: Jin Louise MD Triglyceride [Mass/Vol] 387 mg/dL High <150 [facility] Comment on above: Result Comment: Triglyceride Guidelines: <150 Desirable 150-199 Borderline 200-499 High >499 Very high Based on AHA Guidelines for fasting triglyceride, April 2012. Performed By: #### Lucy ROMERO CP ZFAST #### [facility] [address] [place], [place] [phone] Customer Service Advisor: Miller Shirley MD #### CPEP, LIPR, URNMAB #### [address] [phone] Customer Service Advisor: Jin Louise MD CBCon 08-11-2021 Erythrocyte distribution width (RBC) [Ratio] 12.9 % Normal 12.1-15.2 [facility] Comment on above: Performed By: #### Lucy ROMERO CP, ZFAST #### [facility] [address] [place], [place] [phone] Customer Service Advisor: Miller Shirley MD #### CPEP, LIPR, URNMAB #### [address] [place], [place] [phone] Customer Service Advisor: Jin Louise MD Hematocrit (Bld) [Volume fraction] 44.9 % Normal 36-46 [facility] Comment on above: Performed By: #### Lucy ROMERO CP, ZFAST #### [facility] [address] [place], [place] [phone] Customer Service Advisor: Miller Shirley MD #### CPEP, LIPR, URNMAB #### [address] [place], [place] [phone] Customer Service Advisor: Jin Louise MD Hemoglobin (Bld) [Mass/Vol] 15.0 g/dL Normal 12.0-16.0 [facility] Comment on above: Performed By: #### C BC, CP, ZFAST #### [facility] [address] [place], [place] [phone] Customer Service Advisor: Miller Shirley MD #### CPEP, LIPR, URNMAB #### [address] [phone] Customer Service Advisor: Jin Louise MD MCH (RBC) [Entitic mass] 28.4 pg Normal 26-34 [facility] Comment on above: Performed By: #### Lucy ROMERO CP, ZFAST #### [facility] [address] [place], [place] [phone] Customer Service Advisor: Miller Shirley MD #### CPEP, LIPR, URNMAB #### [address] [phone] Customer Service Advisor: Jin Louise MD MCHC (RBC) [Mass/Vol] 33.5 g/dL Normal 31-37 [facility] Comment on above: Performed By: #### Lucy ROMERO CP, ZFAST #### [facility] [address] [place], [place] [phone] Customer Service Advisor: Miller Shirley MD #### CPEP, LIPR, URNMAB #### [address] [place], [place] [phone] Customer Service Advisor: Jin Louise MD MCV (RBC) [Entitic vol] 84.9 fL Normal 80-100 [facility] Comment on above: Performed By: #### C BC, CP, ZFAST #### [facility] [address] [place] [address] Customer Service Advisor: Miller Shirley MD #### CPEP, LIPR, URNMAB #### [address] [place] [address] Customer Service Advisor: Jin Louise MD Platelets (Bld) [#/Vol] 369 10*3/uL Normal 140-450 [facility] Comment on above: Performed By: #### C DEA ROMERO, ZFAST #### [facility] [address] [place] [address] Customer Service Advisor: Miller Shirley MD #### CPEP, LIPR, URNMAB #### [address] [phone] Customer Service Advisor: Jin Louise MD RBC (Bld) [#/Vol] 5.29 10*6/uL High 4.0-5.2 [facility] Comment on above: Performed By: #### Lucy ROMERO CP, ZFAST #### [facility] [address] [place], [place] [phone] Customer Service Advisor: Miller Shirley MD #### CPEAryan, LIPR, URNMAB #### [address] [address] Customer Service Advisor: Jin Louise MD WBC (Bld) [#/Vol] 5.6 10*3/uL Normal 3.5-11.0 [facility] Comment on above: Performed By: #### Lucy ROMERO CP, ZFAST #### [facility] [address] [place], [place] [phone] Customer Service Advisor: Miller Shirley MD #### CPEP, LIPR, URNMAB #### [address] [phone] Customer Service Advisor: Jin Louise MD MPV NOT REPORTED Normal 6.0-12.0 [facility] Comment on above: Performed By: #### Lucy ROMERO CP, ZFAST #### [facility] [address] [place], [place] 6098[address] Customer Service Advisor: Miller Shirley MD #### CPEP, LIPR, URNMAB #### [facility] [address] [place], [place] [phone] Customer Service Advisor: Jin Louise MD NRBC Automated NOT REPORTED Normal [facility] Comment on above: Performed By: #### C BC, CP, ZFAST #### [facility] [address] [place], [place] [phone] Customer Service Advisor: Miller Shirley MD #### CPEP, LIPR, URNMAB #### [facility] [address] [place], [place] [phone] Customer Service Advisor: Jin Louise MD Hematocrit (Bld) [Volume fraction] 44.9 % 36 - 46 % [facility] Hemoglobin.gastrointesti nal spec 1 Ql (Stl) 15.0 g/dL 12.0 - 16.0 g/dL [facility] Interpretation and review of laboratory results Abnormal [facility] MCH (RBC) [Entitic mass] 28.4 pg 26 - 34 pg [facility] MCHC (RBC) [Mass/Vol] 33.5 g/dL 31 - 37 g/dL [facility] MCV (RBC) [Entitic vol] 84.9 fL 80 - 100 fL [facility] NRBC Automated NOT REPORTED per 100 WBC [facility] ealt Platelet distribution width (Bld) [Ratio] 12.9 % 12.1 - 15.2 % [facility] Platelet mean volume (Bld) [Entitic vol] NOT REPORTED 6.0 - 12.0 fL [facility] Platelets (Bld) [#/Vol] 369 10*3/uL [facility] RBC (Bld) [#/Vol] 5.29 10*6/uL High 4.0 - 5.2 m/uL [facility] WBC (Bld) [#/Vol] 5.6 10*3/uL [facility] Comp Metabolic Profon 2021 (cont.) Normal [facility] Comment on above: Result Comment: Aver age GFR for 50-59 years old: 93 mL/min/1.73sq m Chronic Kidney Disease: <60 mL/min/1.73sq m Kidney failure: <15 mL/min/1.73sq m eGFR calculated using average adult body mass. Additional eGFR calculator available at: http://www.[employer]/multiple_crcl_2012.htm Performed By: #### Lucy ROMERO CP ZFAST #### [facility] [address] [place] [address] Customer Service Advisor: Miller Shirley MD #### CPEP, LIPR, URNMAB #### [address] [address] Customer Service Advisor: Jin Louise MD Albumin [Mass/Vol] 4.1 g/dL Normal 3.5-5.2 [facility] Comment on above: Performed By: #### Lucy ROMERO CP ZFAST #### [facility] [address] [place], [place] [phone] Customer Service Advisor: Miller Shirley MD #### MINOR, LIPR, URNMAB #### [address] [phone] Customer Service Advisor: Jin Louise MD Alkaline Phos 102 U/L Normal 35-104 [facility] Comment on above: Performed By: #### Lucy ROMERO CP ZFAST #### [facility] [address] [place], [place] [phone] Customer Service Advisor: Miller Shirley MD #### CPEP, LIPR, URNMAB #### [address] [address] Customer Service Advisor: Jin Louise MD ALT [Catalytic activity/Vol] 24 U/L Normal 5-33 [facility] Comment on above: Performed By: #### Lucy ROMERO CP, ZFAST #### [facility] [address] [place], [place] [phone] Customer Service Advisor: Miller Shirley MD #### CPEP, LIPR, URNMAB #### [address] [place], [place] 7636108 Customer Service Advisor: Jin Louise MD Anion gap [Moles/Vol] 14 mmol/L Normal 9-17 [facility] Comment on above: Performed By: #### Lucy ROMERO CP, ZFAST #### [facility] [address] [place], [place] [phone] Customer Service Advisor: Miller Shirley MD #### CPEP, LIPR, URNMAB #### [address] [phone] Customer Service Advisor: Jin Louise MD AST [Catalytic activity/Vol] 16 U/L Normal <32 [facility] Comment on above: Performed By: #### Lucy ROMERO CP ZFAST #### [facility] [address] [place], [place] [phone] Customer Service Advisor: Miller Shirley MD #### MINOR, LIPR, URNMAB #### [address] [phone] Customer Service Advisor: Jin Louise MD Bilirubin [Mass/Vol] 0.20 mg/dL Low 0.30-1.20 [facility] Comment on above: Performed By: #### Lucy ROMERO CP, ZFAST #### [facility] [address] [place] [address] Customer Service Advisor: Miller Shirley MD #### CPEP, LIPR, URNMAB #### [address] [phone] Customer Service Advisor: Jin Louise MD BUN/CRE Ratio Result cannot be calculated, Creatinine below linear range. Normal 9-20 [facility] Comment on above: Performed By: #### Lucy ROMERO CP, ZFAST #### [facility] [address] [place], [place] [phone] Customer Service Advisor: Miller Shirley MD #### CPEP, LIPR, URNMAB #### [address] [phone] Customer Service Advisor: Jin Louise MD Calcium [Mass/Vol] 9.6 mg/dL Normal 8.6-10.4 [facility] Comment on above: Performed By: #### Lucy ROMERO CP, ZFAST #### [facility] [address] [place], [place] [phone] Customer Service Advisor: Miller Shirley MD #### CPEP, LIPR, URNMAB #### [address] 2018508 Customer Service Advisor: Jin Louise MD Chloride [Moles/Vol] 97 mmol/L Low 98-107 [facility] Comment on above: Performed By: #### Lucy ROMERO CP ZFAST #### [facility] [address] [place], [place] [phone] Customer Service Advisor: Miller Shirley MD #### CPEAryan, LIPR, URNMAB #### [address] [phone] Customer Service Advisor: Jin Louise MD CO2 [Moles/Vol] 23 mmol/L Normal 20-31 [facility] Comment on above: Performed By: #### Lucy ROMERO CP, ZFAST #### [facility] [address] [place], [place] [phone] Customer Service Advisor: Miller Shirley MD #### CPEP, LIPR, URNMAB #### [address] [phone] Customer Service Advisor: Jin Louise MD Creatinine [Mass/Vol] mg/dL Low 0.50-0.90 [facility] Comment on above: Performed By: #### Lucy ROMERO CP, ZFAST #### [facility] [address] [place], [place] [phone] Customer Service Advisor: Miller Shirley MD #### CPEP, LIPR, URNMAB #### [facility] [address] [place], [place] 7713008 Customer Service Advisor: Jin Louise MD GFR, Amer Can not be calculated Normal >60 [facility] Comment on above: Performed By: #### C DEA ROMERO, ZFAST #### [facility] [address] [place], [place] [phone] Customer Service Advisor: Miller Shirley MD #### CPEP, LIPR, URNMAB #### [address] [place], [place] 5171108 Customer Service Advisor: Jin Louise MD GFR,non Amer Can not be calculated Normal >60 [facility] Comment on above: Performed By: #### C DEA ROMERO, ZFAST #### [facility] [address] [place], [place] 3781990 Customer Service Advisor: Miller Shirley MD #### CPEP, LIPR, URNMAB #### [facility] [address] [place], [place] [phone] Customer Service Advisor: Jin Louise MD Glucose [Mass/Vol] 386 mg/dL Critically high 70-99 [facility] Comment on above: Performed By: #### C DEA ROMERO, ZFAST #### [facility] [address] [place], [place] [phone] Customer Service Advisor: Miller Shirley MD #### CPEP, LIPR, URNMAB #### [facility] [address] [place], [place] [phone] Customer Service Advisor: Jin Louise MD Potassium [Moles/Vol] 4.5 mmol/L Normal 3.7-5.3 [facility] Comment on above: Performed By: #### C DEA ROMERO, ZFAST #### [facility] [address] [place] [address] Customer Service Advisor: Miller Shirley MD #### CPEP, LIPR, URNMAB #### [facility] [address] [place], [place] [phone] Customer Service Advisor: Jin Louise MD Protein [Mass/Vol] 6.9 g/dL Normal 6.4-8.3 [facility] Comment on above: Performed By: #### C BC, CP, ZFAST #### [facility] [address] [place], [place] [phone] Customer Service Advisor: Miller Shirley MD #### CPEP, LIPR, URNMAB #### [address] [address] Customer Service Advisor: Jin Louise MD Sodium [Moles/Vol] 134 mmol/L Low 135-144 [facility] Comment on above: Performed By: #### C HEATHER CP, ZFAST #### [facility] [address] [place], [place] [phone] Customer Service Advisor: Miller Shirley MD #### CPEP, LIPR, URNMAB #### [address] [phone] Customer Service Advisor: Jin Louise MD Urea nitrogen [Mass/Vol] 14 mg/dL Normal 6-20 [facility] Comment on above: Performed By: #### C HEATHER, CP, ZFAST #### [facility] [address] [place], [place] [phone] Customer Service Advisor: Miller Shirley MD #### CPEP, LIPR, URNMAB #### [address] [phone] Customer Service Advisor: Jin Louise MD Albumin/Glob Ratio NOT REPORTED Normal 1.0-2.5 [facility] Comment on above: Performed By: #### C HEATHER, CP, ZFAST #### [facility] [address] [place], [place] [phone] Customer Service Advisor: Miller Shirley MD #### CPEP, LIPR, URNMAB #### [facility] [address] [place], [place] [phone] Customer Service Advisor: Jin Louise MD Staging: NOT REPORTED Normal [facility] Comment on above: Performed By: #### C BC, CP, ZFAST #### [facility] [address] [place], [place] [phone] Customer Service Advisor: Miller Shirley MD #### CPEP, LIPR, URNMAB #### [facility] [address] [place], [place] [phone] Customer Service Advisor: Jin Louise MD Comprehensive Metabolic [facility] 08-11-2021 Albumin [Mass/Vol] 4.1 g/dL 3.5 - 5.2 g/dL [facility] Albumin/Globulin Ratio NOT REPORTED [facility] ALP (Bld) [Catalytic activity/Vol] 102 U/L 35 - 104 U/L [facility] ALT [Catalytic activity/Vol] 24 U/L 5 - 33 U/L [facility] Anion gap [Moles/Vol] 14 mmol/L 9 - 17 mmol/L [facility] AST [Catalytic activity/Vol] 16 U/L <32 [facility] Bilirubin [Mass/Vol] 0.20 mg/dL Low 0.30 - 1.20 mg/dL [facility] Calcium [Mass/Vol] 9.6 mg/dL 8.6 - 10. 4 mg/dL [facility] Chloride [Moles/Vol] 97 mmol/L Low 98 - 10 7 mmol/L [facility] CO2 [Moles/Vol] 23 mmol/L 20 - 31 mmol/L [facility] Creatinine [Mass/Vol] mg/dL Low 0.50 - 0.90 mg/dL [facility] Free PSA/Total PSA [Mass fraction] 6.9 g/dL 6.4 - 8.3 g/dL [facility] GFR Can not be calculated >60 mL/min [facility] GFR Non- Can not be calculated >60 mL/min [facility] GFR/1.73 sq M.predicted MDRD (S/P/Bld) [Vol rate/Area] [facility] Comment on above: Average GFR for 50-5 9 years old: 93 mL/min/1.73sq m Chronic Kidney Disease: <60 mL/min/1.73sq m Kidney failure: <15 mL/min/1.73sq m eGFR calculated using average adult body mass. Additional eGFR calculator available at: http://www.[employer]/multiple_crcl_2012.htm GFR/1.73 sq M.predicted MDRD (S/P/Bld) [Vol rate/Area] NOT REPORTED [facility] Glucose [Mass/Vol] 386 mg/dL Critically high 70 - 99 mg/d L [facility] Interpretation and review of laboratory results Abnormal [facility] Potassium [Moles/Vol] 4.5 mmol/L 3.7 - 5.3 mmol/L [facility] Sodium [Moles/Vol] 134 mmol/L Low 135 - 144 mmol/L [facility] Urea nitrogen (BldV) [Mass/Vol] 14 mg/dL 6 - 20 mg/dL [facility] Urea nitrogen/Creatinine (Bld) [Mass ratio] Result cannot be calculated, Creatinine below linear range. [facility] Lipid Profileon 08-11-2021 Cholesterol,VLDL NOT REPORTED Normal - [facility] Comment on above: Performed By: #### C DEA ROMERO, ZFAST #### [facility] [address] [place] [address] Customer Service Advisor: Miller Shirley MD #### CPEP, LIPR, URNMAB #### [facility] [address] [place] [address] Customer Service Advisor: Jin Louise MD Microalb.,Random Uron 2021 Creatinine [Mass/Vol] 124.8 mg/dL Normal 28.0-217.0 [facility] Comment on above: Performed By: #### C DEA ROMERO, ZFAST #### [facility] [address] [place] [address] Customer Service Advisor: Miller Shirley MD #### CPEP, LIPR, URNMAB #### [facility] [address] [place], [place] [phone] Customer Service Advisor: Jin Louise MD Microalb/Creat Ratio 30 mcg/mg creat High <25 [facility] Comment on above: Performed By: #### Lucy ROMERO CP, ZFAST #### [facility] [address] [place] [address] Customer Service Advisor: Miller Shirley MD #### LUZ MARINAP, LIPR, URNMAB #### [facility] [place], [place] [phone] Customer Service Advisor: Jin oLuise MD Microalbumin conc. 37 mg/L High <21 [facility] Comment on above: Performed By: #### Lucy ROMERO CP, ZFAST #### [facility] [address] [place] [address] Customer Service Advisor: Miller Shirley MD #### CPEP, LIPR, URNMAB #### [facility] [address] [place], [place] [phone] Customer Service Advisor: Jin Louise MD Microalbumin, Uron 2 Albumin/Creatinine DL <= 20 mg/L (24H U) [Mass ratio] 37 mg/L High <21 [facility] Albumin/Creatinine DL <= 20 mg/L (U) [Ratio] 30 High <25 mcg/mg creat [facility] Creatinine [Mass/Vol] 124.8 mg/dL 28.0 - 217.0 mg/dL [facility] Interpretation and review of laboratory results Abnormal [facility] Patient Fasting?on 2 Patient Fasting? yes [facility] Patient fasting?on 2 Patient fasting? yes Normal [facility] Comment on above: Performed By: #### C DEA ROMERO, ZFAST #### [facility] [address] [place] [address] Customer Service Advisor: Miller Shirley MD #### CPEP, LIPR, URNMAB #### [facility] [address] [place] [address] Customer Service Advisor: Jin Louise MD Basic Metabolic PanelOrdered By: Roverto Barbour on 04-16-2021 Anion gap [Moles/Vol] 10 mmol/L 9 - 17 mmol/L [employer] Phone: Calcium [Mass/Vol] 9.4 mg/dL 8.6 - 10. 4 mg/dL [employer] Phone: Chloride [Moles/Vol] 103 mmol/L 98 - 10 7 mmol/L [employer] Phone: CO2 [Moles/Vol] 25 mmol/L 20 - 31 mmol/L [employer] Phone: Creatinine [Mass/Vol] 0.44 mg/dL Low 0.50 - 0.90 mg/dL [employer] Phone: GFR >60 >60 mL/min [employer] Phone: GFR Non- >60 >60 mL/min [employer] Phone: GFR/1.73 sq M.predicted MDRD (S/P/Bld) [Vol rate/Area] [employer] Phone: Comment on above: Average GFR for 50-5 9 years old: 93 mL/min/1.73sq m Chronic Kidney Disease: <60 mL/min/1.73sq m Kidney failure: <15 mL/min/1.73sq m eGFR calculated using average adult body mass. Additional eGFR calculator available at: http://www.[employer].Alma Johns/multiple_crcl_2012.htm GFR/1.73 sq M.predicted MDRD (S/P/Bld) [Vol rate/Area] NOT REPORTED [employer] Phone: Glucose [Mass/Vol] 303 mg/dL High 70 - 99 mg/dL [employer] Phone: Interpretation and review of laboratory results Abnormal [employer] Phone: Potassium [Moles/Vol] 3.5 mmol/L Low 3.7 - 5.3 mmol/L [employer] Phone: Sodium [Moles/Vol] 138 mmol/L 135 - 144 mmol/L [employer] Phone: Urea nitrogen (BldV) [Mass/Vol] 8 mg/dL 6 - 20 mg/dL [employer] Phone: Urea nitrogen/Creatinine (Bld) [Mass ratio] 18 [employer] Phone: [employer] Phone: Glucose, Whole BloodOrdered By: Roverto Back on 04-16-2021 Glucose [Mass/Vol] 221 mg/dL High 65 - 99 mg/dL [employer] Phone: Interpretation and review of laboratory results Abnormal [employer] Phone: [employer] Phone: Basic Metabolic PanelOrdered By: Roverto Back on 04-15-2021 Anion gap [Moles/Vol] 10 mmol/L 9 - 17 mmol/L [employer] Phone: Calcium [Mass/Vol] 9.3 mg/dL 8.6 - 10. 4 mg/dL [employer] Phone: Chloride [Moles/Vol] 106 mmol/L 98 - 10 7 mmol/L [employer] Phone: CO2 [Moles/Vol] 19 mmol/L Low 20 - 31 mmol/L [employer] Phone: Creatinine [Mass/Vol] 0.45 mg/dL Low 0.50 - 0.90 mg/dL [employer] Phone: GFR >60 >60 mL/min [employer] Phone: GFR Non- >60 >60 mL/min [employer] Phone: GFR/1.73 sq M.predicted MDRD (S/P/Bld) [Vol rate/Area] [employer] Phone: Comment on above: Average GFR for 50-5 9 years old: 93 mL/min/1.73sq m Chronic Kidney Disease: <60 mL/min/1.73sq m Kidney failure: <15 mL/min/1.73sq m eGFR calculated using average adult body mass. Additional eGFR calculator available at: http://www.[employer]/Koubei.com_crcl_2012.htm GFR/1.73 sq M.predicted MDRD (S/P/Bld) [Vol rate/Area] NOT REPORTED [employer] Phone: Glucose [Mass/Vol] 261 mg/dL High 70 - 99 mg/dL [employer] Phone: Potassium [Moles/Vol] 3.4 mmol/L Low 3.7 - 5.3 mmol/L [employer] Phone: Sodium [Moles/Vol] 135 mmol/L 135 - 144 mmol/L [employer] Phone: Urea nitrogen (BldV) [Mass/Vol] 7 mg/dL 6 - 20 mg/dL [employer] Phone: Urea nitrogen/Creatinine (Bld) [Mass ratio] 16 [employer] Phone: Beta-HydroxybuterateOrdered By: Roverto Barbour on 04-15-2021 Beta-Hydroxybutyrate 1.45 mmol/L High 0.02 - 0.27 mmol/L [employer] Phone: ECHO Complete 2D W Doppler W ColorOrdered By: Roverto Barbour on 04-15-2021 [facility] Transthoracic Echocardiography Report (TTE) Patient Name GAMAL BRENNAN Date of Study 04/14/2021 L Date of 1970 Gender Female Age 51 year(s) Race Room Number 0263 Height: 65 inch, 165.1 cm Corporate ID [id number] Weight: 177 pounds, 80.3 kg # Patient Acct [id number] BSA: 1.88 m^2 BMI: 29.46 kg/m^2 # MR # [id number] Advanced Clinical Specialist RT Soren Interpreting Physician Jori Rodriguez Fellow Referring Nurse Practitioner Interpreting Referring Physician Roverto Barbour Type of Study TTE procedure:2D Echocardiogram, M-Mode, Doppler, Color Doppler. Procedure Date Date: 04/14/2021 Start: 08:44 AM Study Location: [facility] Indications:Heart murmur and Abnormal ECG. Patient Status: Inpatient Height: 65 inches Weight: 177.01 pounds BSA: 1.88 m^2 BMI: 29.46 kg/m^2 CONCLUSIONS Summary Left ventricle is normal in size. Mild to moderate left ventricular hypertrophy. Global left ventricular systolic function is normal with an estimated ejection fraction of 60 % . Left atrium is at upper limits of normal. Right atrium is normal in size. Normal right ventricular size and function. Aortic leaflet calcification with mild stenosis. Peak instantaneous gradient 20 mmHg and mean gradient 12 mmHg. Cannot rule out bicuspid aortic valve. Thickened mitral valve leaflets. Trivial mitral regurgitation. In summary she has a thickened mildly calcified AV, that I suspect is bicuspid, with mild aortic stenosis, mean gradient of 12 mmHg Normal LV function with EF 60% Normal chamber sizes Would repeat echo in 1 year. Signature Electronically signed by RT Soren(Issac)(M)(CT)([facility])(S onographer) on 04/14/2021 09:29 AM FINDINGS Left Atrium Left atrium is at upper limits of normal. Left Ventricle Left ventricle is normal in size. Mild to moderate left ventricular hypertrophy. Global left ventricular systolic function is normal with an estimated ejection fraction of 60 % . Right Atrium Right atrium is normal in size. Right Ventricle Normal right ventricular size and function. Mitral Valve Thickened mitral valve leaflets. Trivial mitral regurgitation. Aortic Valve Aortic leaflet calcification with mild stenosis. Peak instantaneous gradient 20 mmHg and mean gradient 12 mmHg. Cannot rule out bicuspid aortic valve. Tricuspid Valve Normal tricuspid valve leaflets. Mild tricuspid regurgitation. Pulmonic Valve The pulmonic valve is normal in structure. Pericardial Effusion No significant pericardial effusion is seen. Pleural Effusion No pleural effusion seen. Miscellaneous Normal aortic root dimension. M-mode / 2D Measurements & Calculations: LVIDd:4.1 cm(3.7 - 5.6 cm) Diastolic Volume:48.02 ml LVIDs:1.92 cm(2.2 - 4.0 cm) Systolic Volume:9.05 ml IVSd:0.92 cm(0.6 - 1.1 cm) Aortic Root:2.57 cm(2.0 - 3.7 cm) LVPWd:1.26 cm(0.6 - 1.1 cm) LA Dimension: 3.98 cm(1.9 - 4.0 cm) Fractional Shortenin.17 % LA volume/Index: 33.53 ml /18m^2 Calculated LVEF (%): 81.15 % AV Cusp Separation: 1.97 cm LVOT:1.88 cm RVDd:2.7 cm Mitral: Aortic Valve Area (P1/2-Time): 3.24 cm^2 Peak Velocity: 2.25 m/s Peak E-Wave: 0.78 m/s Mean Velocity: 1.66 m/s Peak A-Wave: 1.07 m/s Peak Gradient: 20.26 mmHg E/A Ratio: 0.73 Mean Gradient: 12.42 mmHg Peak Gradient: 2.43 mmHg Deceleration Time: 233.96 msec P1/2t: 67.85 msec Area (continuity): 2.27 cm^2 AV VTI: 37.19 cm Tricuspid: Pulmonic: Estimated RVSP: 31.73 mmHg Peak Velocity: 1.18 m/s Peak TR Velocity: 2.58 m/s Peak Gradient: 5.6 mmHg Peak TR Gradient: 26.64418 mmHg Estimated RA Pressure: 5 mmHg Estimated PASP: 31.72 mmHg Diastology / Tissue Doppler Septal Wall E' velocity:0.06 m/s Lateral Wall E' velocity:0.06 m/s Lateral Wall E/E':14.77 [employer] Work Phone: Tem[place], pn Incoming Cardio Results From [facility] - 04/15/2021 6:13 AM EDT [facility] Transthoracic Echocardiography Report (TTE) Patient Name GAMAL BRENNAN Date of Study 04/14/2021 L Date of 1970 Gender Female Age 51 year(s) Race Room Number 0263 Height: 65 inch, 165.1 cm Corporate ID [id number] Weight: 177 pounds, 80.3 kg # Patient Acct [id number] BSA: 1.88 m^2 BMI: 29.46 kg/m^2 # MR # [id number] Advanced Clinical Specialist Debra Steiner RT Interpreting Physician Jori Rodriguez Fellow Referring Nurse Practitioner Interpreting Referring Physician Roverto Barbour Type of Study TTE procedure:2D Echocardiogram, M-Mode, Doppler, Color Doppler. Procedure Date Date: 04/14/2021 Start: 08:44 AM Study Location: [facility] Indications:Heart murmur and Abnormal ECG. Patient Status: Inpatient Height: 65 inches Weight: 177.01 pounds BSA: 1.88 m^2 BMI: 29.46 kg/m^2 CONCLUSIONS Summary Left ventricle is normal in size. Mild to moderate left ventricular hypertrophy. Global left ventricular systolic function is normal with an estimated ejection fraction of 60 % . Left atrium is at upper limits of normal. Right atrium is normal in size. Normal right ventricular size and function. Aortic leaflet calcification with mild stenosis. Peak instantaneous gradient 20 mmHg and mean gradient 12 mmHg. Cannot rule out bicuspid aortic valve. Thickened mitral valve leaflets. Trivial mitral regurgitation. In summary she has a thickened mildly calcified AV, that I suspect is bicuspid, with mild aortic stenosis, mean gradient of 12 mmHg Normal LV function with EF 60% Normal chamber sizes Would repeat echo in 1 year. Signature - - - - FINDINGS Left Atrium Left atrium is at upper limits of normal. Left Ventricle Left ventricle is normal in size. Mild to moderate left ventricular hypertrophy. Global left ventricular systolic function is normal with an estimated ejection fraction of 60 % . Right Atrium Right atrium is normal in size. Right Ventricle Normal right ventricular size and function. Mitral Valve Thickened mitral valve leaflets. Trivial mitral regurgitation. Aortic Valve Aortic leaflet calcification with mild stenosis. Peak instantaneous gradient 20 mmHg and mean gradient 12 mmHg. Cannot rule out bicuspid aortic valve. Tricuspid Valve Normal tricuspid valve leaflets. Mild tricuspid regurgitation. Pulmonic Valve The pulmonic valve is normal in structure. Pericardial Effusion No significant pericardial effusion is seen. Pleural Effusion No pleural effusion seen. Miscellaneous Normal aortic root dimension. M-mode / 2D Measurements & Calculations: LVIDd:4.1 cm(3.7 - 5.6 cm) Diastolic Volume:48.02 ml LVIDs:1.92 cm(2.2 - 4.0 cm) Systolic Volume:9.05 ml IVSd:0.92 cm(0.6 - 1.1 cm) Aortic Root:2.57 cm(2.0 - 3.7 cm) LVPWd:1.26 cm(0.6 - 1.1 cm) LA Dimension: 3.98 cm(1.9 - 4.0 cm) Fractional Shortenin.17 % LA volume/Index: 33.53 ml /18m^2 Calculated LVEF (%): 81.15 % AV Cusp Separation: 1.97 cm LVOT:1.88 cm RVDd:2.7 cm Mitral: Aortic Valve Area (P1/2-Time): 3.24 cm^2 Peak Velocity: 2.25 m/s Peak E-Wave: 0.78 m/s Mean Velocity: 1.66 m/s Peak A-Wave: 1.07 m/s Peak Gradient: 20.26 mmHg E/A Ratio: 0.73 Mean Gradient: 12.42 mmHg Peak Gradient: 2.43 mmHg Deceleration Time: 233.96 msec P1/2t: 67.85 msec Area (continuity): 2.27 cm^2 AV VTI: 37.19 cm Tricuspid: Pulmonic: Estimated RVSP: 31.73 mmHg Peak Velocity: 1.18 m/s Peak TR Velocity: 2.58 m/s Peak Gradient: 5.6 mmHg Peak TR Gradient: 26.31019 mmHg Estimated RA Pressure: 5 mmHg Estimated PASP: 31.72 mmHg Diastology / Tissue Doppler Septal Wall E' velocity:0.06 m/s Lateral Wall E' velocity:0.06 m/s Lateral Wall E/E':14.77 [employer] Phone: [employer] Phone: Glucose, Whole BloodOrdered By: Roverto Back on 04-15-2021 Glucose [Mass/Vol] 309 mg/dL High 65 - 99 mg/dL [employer] Phone: Interpretation and review of laboratory results Abnormal [employer] Phone: [employer] Phone: Glucose [Mass/Vol] 247 mg/dL High 65 - 99 mg/dL [employer] Phone: Interpretation and review of laboratory results Abnormal [employer] Phone: [employer] Phone: Glucose [Mass/Vol] 262 mg/dL High 65 - 99 mg/dL [employer] Phone: Interpretation and review of laboratory results Abnormal [employer] Phone: [employer] Phone: Glucose [Mass/Vol] 306 mg/dL High 65 - 99 mg/dL [employer] Phone: Interpretation and review of laboratory results Abnormal [employer] Phone: [employer] Phone: Hemoglobin [id number] By: Juan Jose ferrer Back on 04-15-2021 Glucose [Mass/Vol] 395 mg/dL [employer] Phone: Comment on above: The ADA and AACC rec ommend providing the estimated average glucose result to permit better patient understanding of their HBA1c result. HbA1c (Bld) [Mass fraction] 15.4 % High 4.0 - 6.0 % [employer] Phone: Interpretation and review of laboratory results Abnormal [employer] Phone: [employer] Phone: MagnesiumOrdered By: Roverto dozier on 04-15-2021 Magnesium [Mass/Vol] 1.8 mg/dL 1.6 - 2 .6 mg/dL [employer] Phone: No Panel InformationOrdered By: Roverto Back on 04-15-2021 Interpretation and review of laboratory results Abnormal [employer] Phone: [employer] Phone: PhosphorusOrdered By: Roverto Back on 04-15-2021 Phosphate [Mass/Vol] 2.4 mg/dL Low 2.6 - 4 .5 mg/dL [employer] Phone: Basic Metabolic PanelOrdered By: Roverto Barbour on 04-14-2021 Anion gap [Moles/Vol] 11 mmol/L 9 - 17 mmol/L [employer] Phone: Calcium [Mass/Vol] 9.2 mg/dL 8.6 - 10. 4 mg/dL [employer] Phone: Chloride [Moles/Vol] 104 mmol/L 98 - 10 7 mmol/L [employer] Phone: CO2 [Moles/Vol] 17 mmol/L Low 20 - 31 mmol/L [employer] Phone: Creatinine [Mass/Vol] 0.53 mg/dL 0.50 - 0.90 mg/dL [employer] Phone: GFR >60 >60 mL/min [employer] Phone: GFR Non- >60 >60 mL/min [employer] Phone: GFR/1.73 sq M.predicted MDRD (S/P/Bld) [Vol rate/Area] [employer] Phone: Comment on above: Average GFR for 50-5 9 years old: 93 mL/min/1.73sq m Chronic Kidney Disease: <60 mL/min/1.73sq m Kidney failure: <15 mL/min/1.73sq m eGFR calculated using average adult body mass. Additional eGFR calculator available at: http://www.[employer]/multiple_crcl_2012.htm GFR/1.73 sq M.predicted MDRD (S/P/Bld) [Vol rate/Area] NOT REPORTED [employer] Phone: Glucose [Mass/Vol] 243 mg/dL High 70 - 99 mg/dL [facility] [employer] Phone: Potassium [Moles/Vol] 3.2 mmol/L Low 3.7 - 5.3 mmol/L [facility] Phone: Sodium [Moles/Vol] 132 mmol/L Low 135 - 144 mmol/L [employer] Phone: Urea nitrogen (BldV) [Mass/Vol] 9 mg/dL 6 - 20 mg/dL [employer] Phone: Urea nitrogen/Creatinine (Bld) [Mass ratio] 17 [employer] Phone: Anion gap [Moles/Vol] 12 mmol/L 9 - 17 mmol/L [facility] Phone: Calcium [Mass/Vol] 9.8 mg/dL 8.6 - 10. 4 mg/dL [employer] Phone: Chloride [Moles/Vol] 103 mmol/L 98 - 10 7 mmol/L [employer] Phone: CO2 [Moles/Vol] 17 mmol/L Low 20 - 31 mmol/L [employer] Phone: Creatinine [Mass/Vol] 0.61 mg/dL 0.50 - 0.90 mg/dL [employer] Phone: GFR >60 >60 mL/min [employer] Phone: GFR Non- >60 >60 mL/min [employer] Phone: GFR/1.73 sq M.predicted MDRD (S/P/Bld) [Vol rate/Area] [employer] Phone: Comment on above: Average GFR for 50-5 9 years old: 93 mL/min/1.73sq m Chronic Kidney Disease: <60 mL/min/1.73sq m Kidney failure: <15 mL/min/1.73sq m eGFR calculated using average adult body mass. Additional eGFR calculator available at: http://www.[employer]/Koubei.com_crcl_2012.htm GFR/1.73 sq M.predicted MDRD (S/P/Bld) [Vol rate/Area] NOT REPORTED [employer] Phone: Glucose [Mass/Vol] 158 mg/dL High 70 - 99 mg/dL [employer] Phone: Potassium [Moles/Vol] 3.2 mmol/L Low 3.7 - 5.3 mmol/L [employer] Phone: Sodium [Moles/Vol] 132 mmol/L Low 135 - 144 mmol/L [employer] Phone: Urea nitrogen (BldV) [Mass/Vol] 12 mg/dL 6 - 20 mg/dL [employer] Phone: Urea nitrogen/Creatinine (Bld) [Mass ratio] 20 [employer] Phone: Anion gap [Moles/Vol] 10 mmol/L 9 - 17 mmol/L [employer] Phone: Calcium [Mass/Vol] 9.0 mg/dL 8.6 - 10. 4 mg/dL [employer] Phone: Chloride [Moles/Vol] 105 mmol/L 98 - 10 7 mmol/L [employer] Phone: CO2 [Moles/Vol] 17 mmol/L Low 20 - 31 mmol/L [facility] Phone: Creatinine [Mass/Vol] 0.6 mg/dL 0.50 - 0.90 mg/dL [employer] Phone: GFR >60 >60 mL/min [employer] Phone: GFR Non- >60 >60 mL/min [employer] Phone: GFR/1.73 sq M.predicted MDRD (S/P/Bld) [Vol rate/Area] [employer] Phone: Comment on above: Average GFR for 50-5 9 years old: 93 mL/min/1.73sq m Chronic Kidney Disease: <60 mL/min/1.73sq m Kidney failure: <15 mL/min/1.73sq m eGFR calculated using average adult body mass. Additional eGFR calculator available at: http://www.[employer]/multiple_crcl_2012.htm GFR/1.73 sq M.predicted MDRD (S/P/Bld) [Vol rate/Area] NOT REPORTED [facility] Phone: Glucose [Mass/Vol] 254 mg/dL High 70 - 99 mg/dL [facility] [employer] Phone: Potassium [Moles/Vol] 2.9 mmol/L Critically low 3.7 - 5.3 mmol/L [facility] Phone: Sodium [Moles/Vol] 132 mmol/L Low 135 - 144 mmol/L [facility] Phone: Urea nitrogen (BldV) [Mass/Vol] 10 mg/dL 6 - 20 mg/dL [facility] Phone: Urea nitrogen/Creatinine (Bld) [Mass ratio] 17 [employer] Phone: Anion gap [Moles/Vol] 11 mmol/L 9 - 17 mmol/L [employer] Phone: Calcium [Mass/Vol] 8.8 mg/dL 8.6 - 10. 4 mg/dL [employer] Phone: Chloride [Moles/Vol] 105 mmol/L 98 - 10 7 mmol/L [employer] Phone: CO2 [Moles/Vol] 16 mmol/L Low 20 - 31 mmol/L [employer] Phone: Creatinine [Mass/Vol] 0.51 mg/dL 0.50 - 0.90 mg/dL [employer] Phone: GFR >60 >60 mL/min [employer] Phone: GFR Non- >60 >60 mL/min [employer] Phone: GFR/1.73 sq M.predicted MDRD (S/P/Bld) [Vol rate/Area] [facility] Phone: Comment on above: Average GFR for 50-5 9 years old: 93 mL/min/1.73sq m Chronic Kidney Disease: <60 mL/min/1.73sq m Kidney failure: <15 mL/min/1.73sq m eGFR calculated using average adult body mass. Additional eGFR calculator available at: http://www.[employer].Alma Johns/multiple_crcl_2012.htm GFR/1.73 sq M.predicted MDRD (S/P/Bld) [Vol rate/Area] NOT REPORTED [employer] Phone: Glucose [Mass/Vol] 215 mg/dL High 70 - 99 mg/dL [employer] Phone: Potassium [Moles/Vol] 3.2 mmol/L Low 3.7 - 5.3 mmol/L [facility] Phone: Sodium [Moles/Vol] 132 mmol/L Low 135 - 144 mmol/L [employer] Phone: Urea nitrogen (BldV) [Mass/Vol] 11 mg/dL 6 - 20 mg/dL [employer] Phone: Urea nitrogen/Creatinine (Bld) [Mass ratio] 22 High [employer] Phone: Anion gap [Moles/Vol] 17 mmol/L 9 - 17 mmol/L [employer] Phone: Calcium [Mass/Vol] 8.9 mg/dL 8.6 - 10. 4 mg/dL [employer] Phone: Chloride [Moles/Vol] 105 mmol/L 98 - 10 7 mmol/L [employer] Phone: CO2 [Moles/Vol] 11 mmol/L Low 20 - 31 mmol/L [employer] Phone: Creatinine [Mass/Vol] 0.56 mg/dL 0.50 - 0.90 mg/dL [employer] Phone: GFR >60 >60 mL/min [employer] Phone: GFR Non- >60 >60 mL/min [employer] Phone: GFR/1.73 sq M.predicted MDRD (S/P/Bld) [Vol rate/Area] [employer] Phone: Comment on above: Average GFR for 50-5 9 years old: 93 mL/min/1.73sq m Chronic Kidney Disease: <60 mL/min/1.73sq m Kidney failure: <15 mL/min/1.73sq m eGFR calculated using average adult body mass. Additional eGFR calculator available at: http://www.[employer].Alma Johns/multiple_crcl_2012.htm GFR/1.73 sq M.predicted MDRD (S/P/Bld) [Vol rate/Area] NOT REPORTED [employer] Phone: Glucose [Mass/Vol] 207 mg/dL High 70 - 99 mg/dL [facility] Work Phone: Potassium [Moles/Vol] 3.2 mmol/L Low 3.7 - 5.3 mmol/L [facility] [employer] Phone: Sodium [Moles/Vol] 133 mmol/L Low 135 - 144 mmol/L [facility] Work Phone: Urea nitrogen (BldV) [Mass/Vol] 13 mg/dL 6 - 20 mg/dL [facility] [employer] Phone: Urea nitrogen/Creatinine (Bld) [Mass ratio] 23 High [facility] [employer] Phone: Beta-HydroxybuterateOrdered By: Roverto Back on 04-14-2021 Beta-Hydroxybutyrate 1.58 mmol/L High 0.02 - 0.27 mmol/L [facility] [employer] Phone: Beta-HydroxybutyrateOrdered By: Roverto Back on 04-14-2021 Beta-Hydroxybutyrate 0.64 mmol/L High 0.02 - 0.27 mmol/L [facility] [employer] Phone: Beta-Hydroxybutyrate 1.21 mmol/L High 0.02 - 0.27 mmol/L [facility] [employer] Phone: Interpretation and review of laboratory results Abnormal [facility] [employer] Phone: [facility] Work Phone: CBC auto differentialOrdered By: Roverto Back on 04-14-2021 [employer]os # 0.00 [facility] Work Phone: Absolute Immature Granulocyte NOT REPORTED [facility] Work Phone: Absolute Lymph # 1.40 [facility] Work Phone: [employer] [place] # 1.10 High [facility] Work Phone: Basophils (Bld) [#/Vol] 0.00 10*3/uL [employer] Phone: Basophils/100 WBC (Bld) 0 % 0 - 2 % [employer] Phone: Differential Type YES [employer] Phone: Eosinophils/100 WBC (Bld) 0 % 0 - 5 % [employer] Phone: Hematocrit (Bld) [Volume fraction] 39.6 % 36 - 46 % [employer] Phone: Hemoglobin.gastrointesti nal spec 1 Ql (Stl) 13.6 g/dL 12.0 - 16.0 g/dL [employer] Phone: Immature Granulocytes NOT REPORTED 0 % [employer] Phone: Interpretation and review of laboratory results Abnormal [employer] Phone: Lymphocytes/100 WBC (Bld) 18 % 15 - 40 % [employer] Phone: MCH (RBC) [Entitic mass] 30.4 pg 26 - 34 pg [employer] Phone: MCHC (RBC) [Mass/Vol] 34.4 g/dL 31 - 37 g/dL [employer] Phone: MCV (RBC) [Entitic vol] 88.4 fL 80 - 100 fL [employer] Phone: Monocytes/100 WBC (Bld) 13 % High 4 - 8 % [employer] Phone: NRBC Automated NOT REPORTED per 100 WBC [employer] Work Phone: Platelet distribution width (Bld) [Ratio] 13.4 % 12.1 - 15.2 % [employer] Phone: Platelet Estimate NOT REPORTED [employer] Phone: Platelet mean volume (Bld) [Entitic vol] NOT REPORTED 6.0 - 12.0 fL [employer] Phone: Platelets (Bld) [#/Vol] 285 10*3/uL [employer] Phone: RBC (Bld) [#/Vol] 4.48 10*6/uL 4.0 - 5.2 m/uL [employer] Phone: RBC (Bld) [#/Vol] NOT REPORTED [employer] Work Phone: Segmented neutrophils/100 WBC (Bld) 69 % 47 - 75 % [employer] Work Phone: Segs Absolute 5.70 [employer] Work Phone: WBC (Bld) [#/Vol] 8.2 10*3/uL [employer] Phone: WBC (Bld) [#/Vol] NOT REPORTED [employer] Phone: [employer] Work Phone: EKG 12 LeadOrdered By: Reji Rondon on 04-14-2021 Atrial Rate 132 BPM [employer] Phone: P [place] 77 degrees [employer] Phone: P-R Interval 150 ms [employer] Phone: Q-T Interval 282 ms [employer] Phone: QRS Duration 66 ms [employer] Phone: QTc Calculation (Bazett) 417 ms [employer] Phone: R [place] 73 degrees [employer] Phone: T [place] 119 degrees [employer] Phone: Ventricular Rate 132 BPM [employer] Work Phone: Sinus tachycardia Possible Left atrial enlargement Anteroseptal infarct , age undetermined T wave abnormality, consider inferior ischemia Abnormal ECG [employer] Phone: Temo, Mhpn Incoming Ekg Results From [facility] - 04/14/2021 6:49 AM EDT Sinus tachycardia Possible Left atrial enlargement Anteroseptal infarct , age undetermined T wave abnormality, consider inferior ischemia Abnormal ECG [employer] Phone: [employer] Phone: Glucose, Whole BloodOrdered By: Roverto Barbour on 04-14-2021 Glucose [Mass/Vol] 219 mg/dL High 65 - 99 mg/dL [employer] Work Phone: Glucose [Mass/Vol] 161 mg/dL High 65 - 99 mg/dL [employer] Work Phone: Glucose [Mass/Vol] 211 mg/dL High 65 - 99 mg/dL [employer] Phone: Interpretation and review of laboratory results Abnormal [employer] Phone: [employer] Phone: Glucose [Mass/Vol] 212 mg/dL High 65 - 99 mg/dL [employer] Phone: Interpretation and review of laboratory results Abnormal [employer] Phone: [employer] Phone: Glucose [Mass/Vol] 221 mg/dL High 65 - 99 mg/dL [employer] Phone: Interpretation and review of laboratory results Abnormal [employer] Phone: [employer] Phone: Glucose [Mass/Vol] 172 mg/dL High 65 - 99 mg/dL [employer] Phone: Interpretation and review of laboratory results Abnormal [employer] Phone: [employer] Phone: Glucose [Mass/Vol] 176 mg/dL High 65 - 99 mg/dL [employer] Phone: Interpretation and review of laboratory results Abnormal [employer] Phone: [employer] Phone: Glucose [Mass/Vol] 152 mg/dL High 65 - 99 mg/dL [employer] Phone: Interpretation and review of laboratory results Abnormal [employer] Phone: [employer] Phone: Glucose [Mass/Vol] 106 mg/dL High 65 - 99 mg/dL [employer] Work Phone: Interpretation and review of laboratory results Abnormal [employer] Phone: [employer] Phone: Glucose [Mass/Vol] 157 mg/dL High 65 - 99 mg/dL [employer] Phone: Interpretation and review of laboratory results Abnormal [employer] Phone: [employer] Phone: Glucose [Mass/Vol] 253 mg/dL High 65 - 99 mg/dL [employer] Phone: Interpretation and review of laboratory results Abnormal [employer] Phone: [employer] Phone: Glucose [Mass/Vol] 237 mg/dL High 65 - 99 mg/dL [employer] Phone: Interpretation and review of laboratory results Abnormal [employer] Phone: [employer] Phone: Glucose [Mass/Vol] 173 mg/dL High 65 - 99 mg/dL [employer] Work Phone: Interpretation and review of laboratory results Abnormal [employer] Phone: [employer] Phone: Glucose [Mass/Vol] 187 mg/dL High 65 - 99 mg/dL [employer] Work Phone: Interpretation and review of laboratory results Abnormal [employer] Phone: [employer] Phone: Glucose [Mass/Vol] 211 mg/dL High 65 - 99 mg/dL [employer] Phone: Interpretation and review of laboratory results Abnormal [employer] Phone: [employer] Phone: Glucose [Mass/Vol] 203 mg/dL High 65 - 99 mg/dL [employer] Work Phone: Interpretation and review of laboratory results Abnormal [employer] Phone: [employer] Phone: Glucose [Mass/Vol] 205 mg/dL High 65 - 99 mg/dL [employer] Phone: Interpretation and review of laboratory results Abnormal [employer] Phone: [employer] Phone: Glucose [Mass/Vol] 168 mg/dL High 65 - 99 mg/dL [employer] Work Phone: Interpretation and review of laboratory results Abnormal [employer] Phone: [employer] Phone: Hemoglobin [id number] By: Juan Jose Barbour on 04-14-2021 Glucose [Mass/Vol] 378 mg/dL [employer] Phone: Comment on above: The ADA and AACC rec ommend providing the estimated average glucose result to permit better patient understanding of their HBA1c result. HbA1c (Bld) [Mass fraction] 14.8 % High 4.0 - 6.0 % [employer] Phone: Interpretation and review of laboratory results Abnormal [employer] Phone: [employer] Phone: MagnesiumOrdered By: Roverto dozier on 04-14-2021 Magnesium [Mass/Vol] 1.7 mg/dL 1.6 - 2 .6 mg/dL [employer] Phone: Magnesium [Mass/Vol] 1.8 mg/dL 1.6 - 2 .6 mg/dL [employer] Phone: Magnesium [Mass/Vol] 1.6 mg/dL 1.6 - 2 .6 mg/dL [employer] Phone: Magnesium [Mass/Vol] 1.7 mg/dL 1.6 - 2 .6 mg/dL [employer] Phone: Magnesium [Mass/Vol] 1.8 mg/dL 1.6 - 2 .6 mg/dL [employer] Phone: No Panel InformationOrdered By: Roverto Back on 04-14-2021 Interpretation and review of laboratory results Abnormal [employer] Phone: [employer] Phone: Interpretation and review of laboratory results Abnormal [employer] Phone: [employer] Phone: Interpretation and review of laboratory results Abnormal [employer] Phone: [employer] Phone: Interpretation and review of laboratory results Abnormal [employer] Phone: [employer] Phone: Interpretation and review of laboratory results Abnormal [employer] Phone: [employer] Phone: PhosphorusOrdered By: Roverto Back on 04-14-2021 Phosphate [Mass/Vol] 2.5 mg/dL Low 2.6 - 4 .5 mg/dL [employer] Phone: Phosphate [Mass/Vol] 2.2 mg/dL Low 2.6 - 4 .5 mg/dL [employer] Phone: Phosphate [Mass/Vol] 1.9 mg/dL Low 2.6 - 4 .5 mg/dL [facility] Phone: Phosphate [Mass/Vol] 2.0 mg/dL Low 2.6 - 4 .5 mg/dL [facility] Work Phone: Phosphate [Mass/Vol] 2.1 mg/dL Low 2.6 - 4 .5 mg/dL [facility] Phone: TroponinOrdered By: Roverto Flores ck on 04-14-2021 Troponin Interp NOT REPORTED [facility] [employer] Work Phone: Troponin T NOT REPORTED <0.03 ng/mL [facility] Work Phone: Troponin, High Sensitivity 7 ng/L 0 - 14 ng/L [facility] Work Phone: Comment on above: High Sensitivity Troponin values cannot be compared with other Troponin methodologies. Patients with high levels of Biotin oral intake (i.e >5mg/day) may have falsely decreased Troponin levels. Samples collected within 8 hours of biotin intake may require additional information for diagnosis. [employer] Work Phone: Beta-HydroxybutyrateOrdered By: Reji Rondon on 04-13-2021 Beta-Hydroxybutyrate 9.79 mmol/L High 0.02 - 0.27 mmol/L [facility] Work Phone: Interpretation and review of laboratory results Abnormal [facility] Work Phone: [facility] Work Phone: CBC Auto DifferentialOrdered By: Reji Rondon on 04-13-2021 Absolute Eos # 0.00 [facility] Work Phone: Absolute Immature Granulocyte NOT REPORTED [facility] Work Phone: Absolute Lymph # 0.80 Low [facility]aleK[facility] Work Phone: Absolute [place] # 0.50 [facility] Work Phone: Basophils (Bld) [#/Vol] 0.00 10*3/uL [employer] Phone: Basophils/100 WBC (Bld) 0 % 0 - 2 % [employer] Phone: Differential Type YES [employer] Phone: Eosinophils/100 WBC (Bld) 0 % 0 - 5 % [employer] Phone: Hematocrit (Bld) [Volume fraction] 51.4 % High 36 - 46 % [employer] Phone: Hemoglobin.gastrointesti nal spec 1 Ql (Stl) 17.0 g/dL High 12.0 - 16.0 g/dL [employer] Phone: Immature Granulocytes NOT REPORTED 0 % M [employer] Phone: Interpretation and review of laboratory results Abnormal [employer] Phone: Lymphocytes/100 WBC (Bld) 7 % Low 15 - 40 % [employer] Phone: MCH (RBC) [Entitic mass] 30.2 pg 26 - 34 pg [employer] Phone: MCHC (RBC) [Mass/Vol] 33.1 g/dL 31 - 37 g/dL M [employer] Phone: MCV (RBC) [Entitic vol] 91.3 fL 80 - 100 fL [employer] Phone: Monocytes/100 WBC (Bld) 5 % 4 - 8 % [employer] Phone: NRBC Automated NOT REPORTED per 100 WBC [employer] Phone: Platelet distribution width (Bld) [Ratio] 13.8 % 12.1 - 15.2 % [employer] Phone: Platelet Estimate NOT REPORTED [employer] Phone: Platelet mean volume (Bld) [Entitic vol] NOT REPORTED 6.0 - 12.0 fL [employer] Phone: Platelets (Bld) [#/Vol] 355 10*3/uL [employer] Phone: RBC (Bld) [#/Vol] 5.63 10*6/uL High 4.0 - 5.2 m/uL [employer] Phone: RBC (Bld) [#/Vol] NOT REPORTED [employer] Phone: Segmented neutrophils/100 WBC (Bld) 88 % High 47 - 75 % [employer] Phone: Segs Absolute 10.40 High [employer] Work Phone: WBC (Bld) [#/Vol] 11.6 10*3/uL High [employer] Phone: WBC (Bld) [#/Vol] NOT REPORTED [employer] Phone: [employer] Phone: COVID-19, RapidOrdered By: Chichi Rondon on 04-13-2021 SARS-CoV-2 (COVID-19) RNA ESPERANZA+probe Ql (Unsp spec) Not detected Not Detected [employer] Phone: Comment on above: Rapid NAAT: The specimen is NEGATIVE for SARS-CoV-2, the novel coronavirus associated with COVID-19. The ID NOW COVID-19 assay is designed to detect the virus that causes COVID-19 in patients with signs and symptoms of infection who are suspected of COVID-19. An individual without symptoms of COVID-19 and who is not shedding SARS-CoV-2 virus would expect to have a negative (not detected) result in this assay. Negative results should be treated as presumptive and, if inconsistent with clinical signs and symptoms or necessary for patient management, should be tested with an alternative molecular assay. Negative results do not preclude SARS-CoV-2 infection and should not be used as the sole basis for patient management decisions. Fact sheet for Healthcare Providers: https://www.fda.gov/media/006328/download Fact sheet for Patients: https://www.fda.gov/media/280190/download Methodology: Isothermal Nucleic Acid Amplification Specimen Description .NASOPHARYNGEAL SWAB [employer] Phone: [employer] Phone: CT ABDOMEN PELVIS WO CONTRAS T Additional Contrast? NoneOrdered By: Reji Rondon on 04-13-2021 1. Bilateral nonobstructing renal calculi. No ureteral calculi. 2. Left renal cysts which are not optimally assessed on this unenhanced study. 3. Hepatic steatosis. [employer] Phone: EXAMINATION: CT ABDOMEN PELVIS WO CONTRAST, 04/13/2021 4:15 PM EDT HISTORY: Reason for exam:->Left flank pain rule out kidney stone COMPARISON: 02/03/2020. 06/16/2016. TECHNIQUE: CT scan of the abdomen and pelvis was performed without IV contrast. CT dose reduction technique was used, including Automated Exposure Control. FINDINGS: The visualized lung bases and pleural spaces are clear. Mild hepatic steatosis. Allowing for the lack of intravenous contrast, the spleen, pancreas and the adrenal glands are unremarkable. A 0.5 cm nonobstructing calculus present within the inferior right kidney. A 0.4 cm nonobstructing calculus present within the superior left kidney. A 3 cm exophytic left renal cortical cyst is present. Parapelvic cyst within the inferior left renal sinus. No ureteral calculi are present. Calcified phleboliths are present within the pelvis. Moderate atherosclerotic calcifications are present. No enlarged lymph nodes within the abdomen or the pelvis. Normal appendix. No ascites or focal intraperitoneal fluid collections. [employer] Phone: [place], [facility] Incoming Radiant Results From [employer] - 04/13/2021 5:00 PM EDT EXAMINATION: CT ABDOMEN PELVIS WO CONTRAST, 04/13/2021 4:15 PM EDT HISTORY: Reason for exam:->Left flank pain rule out kidney stone COMPARISON: 02/03/2020. 06/16/2016. TECHNIQUE: CT scan of the abdomen and pelvis was performed without IV contrast. CT dose reduction technique was used, including Automated Exposure Control. FINDINGS: The visualized lung bases and pleural spaces are clear. Mild hepatic steatosis. Allowing for the lack of intravenous contrast, the spleen, pancreas and the adrenal glands are unremarkable. A 0.5 cm nonobstructing calculus present within the inferior right kidney. A 0.4 cm nonobstructing calculus present within the superior left kidney. A 3 cm exophytic left renal cortical cyst is present. Parapelvic cyst within the inferior left renal sinus. No ureteral calculi are present. Calcified phleboliths are present within the pelvis. Moderate atherosclerotic calcifications are present. No enlarged lymph nodes within the abdomen or the pelvis. Normal appendix. No ascites or focal intraperitoneal fluid collections. IMPRESSION: 1. Bilateral nonobstructing renal calculi. No ureteral calculi. 2. Left renal cysts which are not optimally assessed on this unenhanced study. 3. Hepatic steatosis. [employer] Phone: [employer] Phone: Comprehensive Metabolic Pane l w/ Reflex to MGOrdered By: Reji Rondon on 04-13-2021 Albumin [Mass/Vol] 4.5 g/dL 3.5 - 5.2 g/dL [employer] Phone: Albumin/Globulin Ratio NOT REPORTED [employer] Phone: ALP (Bld) [Catalytic activity/Vol] 144 U/L High 35 - 104 U/L [employer] Phone: ALT [Catalytic activity/Vol] 15 U/L 5 - 33 U/L [employer] Phone: Anion gap [Moles/Vol] 33 mmol/L High 9 - 17 mmol/L [employer] Phone: AST [Catalytic activity/Vol] 11 U/L <32 [employer] Phone: Bilirubin [Mass/Vol] 0.22 mg/dL Low 0.30 - 1.20 mg/dL [employer] Phone: Calcium [Mass/Vol] 10.3 mg/dL 8.6 - 10. 4 mg/dL [employer] Phone: Chloride [Moles/Vol] 91 mmol/L Low 98 - 10 7 mmol/L [employer] Phone: CO2 [Moles/Vol] 6 mmol/L Critically low 20 - 31 mmol/L [employer] Phone: Creatinine [Mass/Vol] 0.89 mg/dL 0.50 - 0.90 mg/dL [employer] Phone: Free PSA/Total PSA [Mass fraction] 8.2 g/dL 6.4 - 8.3 g/dL [employer] Phone: GFR >60 >60 mL/min [employer] Phone: GFR Non- >60 >60 mL/min [employer] Phone: GFR/1.73 sq M.predicted MDRD (S/P/Bld) [Vol rate/Area] [employer] Phone: Comment on above: Average GFR for 50-5 9 years old: 93 mL/min/1.73sq m Chronic Kidney Disease: <60 mL/min/1.73sq m Kidney failure: <15 mL/min/1.73sq m eGFR calculated using average adult body mass. Additional eGFR calculator available at: http://www.[employer].Alma Johns/multiple_crcl_2012.htm GFR/1.73 sq M.predicted MDRD (S/P/Bld) [Vol rate/Area] NOT REPORTED [employer] Phone: Glucose [Mass/Vol] 437 mg/dL Critically high 70 - 99 mg/d L [employer] Phone: Interpretation and review of laboratory results Abnormal [employer] Phone: Potassium [Moles/Vol] 4.4 mmol/L 3.7 - 5.3 mmol/L [employer] Phone: Sodium [Moles/Vol] 130 mmol/L Low 135 - 144 mmol/L [employer] Phone: Urea nitrogen (BldV) [Mass/Vol] 21 mg/dL High 6 - 20 mg/dL [employer] Phone: Urea nitrogen/Creatinine (Bld) [Mass ratio] 24 High [employer] Phone: Glucose, Whole BloodOrdered By: Roverto Barbour on 04-13-2021 Glucose [Mass/Vol] 186 mg/dL High 65 - 99 mg/dL [facility] [employer] Phone: Interpretation and review of laboratory results Abnormal [employer] Phone: [employer] Phone: Glucose [Mass/Vol] 219 mg/dL High 65 - 99 mg/dL [facility] [employer] Phone: Interpretation and review of laboratory results Abnormal [employer] Phone: [employer] Phone: Glucose, Whole BloodOrdered By: Reji Rondon on 04-13-2021 Glucose [Mass/Vol] 239 mg/dL High 65 - 99 mg/dL [employer] Phone: Interpretation and review of laboratory results Abnormal [employer] Phone: [employer] Phone: Glucose [Mass/Vol] 383 mg/dL High 65 - 99 mg/dL [facility] [employer] Phone: Interpretation and review of laboratory results Abnormal [employer] Phone: [employer] Phone: LipaseOrdered By: Reji galvan on 04-13-2021 Lipase [Catalytic activity/Vol] 26 U/L 13 - 60 U/L [employer] Phone: Microscopic UrinalysisOrdere d By: Reji Rondon on 04-13-2021 - [employer] Phone: Amorphous, UA NOT REPORTED None [facility] Work Phone: Bacteria, UA NOT REPORTED None [facility] Work Phone: Casts UA NOT REPORTED /LPF [facility] Work Phone: Crystals, UA NOT REPORTED None /HPF [facility] Work Phone: Epithelial Cells UA NOT REPORTED /HPF [facility] Work Phone: Interpretation and review of laboratory results Abnormal [facility] [employer] Work Phone: Mucus, UA RARE Abnormal None [facility] [employer] Work Phone: Other Observations UA NOT REPORTED NOT REQ. M [facility] [employer] Work Phone: RBC, UA NOT REPORTED [facility] [employer] Work Phone: Renal Epithelial, UA NOT REPORTED 0 /HPF [facility] Work Phone: Trichomonas, UA NOT REPORTED None [facility] Work Phone: WBC, UA 0 TO 2 0 /HPF [facility] [employer] Work Phone: Yeast, UA NOT REPORTED None [facility] [employer] Work Phone: [facility] [employer] Work Phone: No Panel InformationOrdered By: Reji Rondon on 04-13-2021 [facility] Work Phone: POCT Glucose - every hourOrd ered By: Reji Rondon on 04-13-2021 Glucose [Mass/Vol] 239 mg/dL [facility] [employer] Work Phone: Interpretation and review of laboratory results Normal [facility] [employer] Work Phone: QC OK? yes [facility] [employer] Work Phone: [facility] [employer] Work Phone: Glucose [Mass/Vol] 383 mg/dL [facility] [employer] Work Phone: Interpretation and review of laboratory results Normal [employer] Work Phone: QC OK? yes [employer] Work Phone: [employer] Work Phone: Urinalysis, reflex to micros copicOrdered By: Reji Rondon on 04-13-2021 Bilirubin Urine Negative NEGATIVE [employer] [facility] Work Phone: Color, UA Yellow Yellow [employer] Work Phone: Glucose, Ur 1000 mg/dL Abnormal NEGATIVE [employer] Work Phone: Interpretation and review of laboratory results Abnormal [employer] Work Phone: Ketones Ql (U) LARGE Abnormal NEGATIVE [employer] Work Phone: Leukocyte esterase Test strip Ql (U) Negative NEGATIVE [employer] Phone: Nitrite, Urine Negative NEGATIVE [employer] Work Phone: pH, UA 5.0 [employer] Work Phone: Protein, UA 2+ Abnormal NEGATIVE [employer] Phone: Specific [place], UA 1.025 [employer] Work Phone: Turbidity UA Clear Clear [employer] Phone: Urinalysis Comments [employer] Phone: Urine Hgb TRACE Abnormal NEGATIVE [employer] Phone: Urobilinogen, Urine Normal Normal [facility] Work Phone: [employer] Work Phone: Cult,Urineon 02-12-2020 Cult,Urine Specimen Description .CLEAN CATCH URINE Special Requests NOT REPORTED Culture NO SIGNIFICANT GROWTH Report Status FINAL 02/12/[address] [facility] Comment on above: Performed By: #### U #### [facility] [address] [place] [id number] Customer Service Advisor: Jin Louise MD [facility] [address] [place] [address] Customer Service Advisor: Mendel Sesay MD Basic Metabolic Panelon 01-15 Anion gap [Moles/Vol] 16 mmol/L 9 - 17 mmol/L [place] Bun/Cre Ratio 27 High [place] Calcium [Mass/Vol] 9.4 mg/dL 8.6 - 10. 4 mg/dL [place] Chloride [Moles/Vol] 94 mmol/L Low 98 - 10 7 mmol/L [place] CO2 [Moles/Vol] 18 mmol/L Low 20 - 31 mmol/L [place] Creatinine [Mass/Vol] 0.52 mg/dL 0.5 - 0.9 mg/dL [place] GFR >60 >60 mL/min [place] GFR Non- >60 >60 mL/min [place] Glucose [Mass/Vol] 535 mg/dL Critically high 70 - 99 mg/d L [place] Interpretation and review of laboratory results Abnormal [place] Potassium [Moles/Vol] 4.6 mmol/L 3.7 - 5.3 mmol/L [place] Sodium [Moles/Vol] 128 mmol/L Low 135 - 144 mmol/L [place] Urea nitrogen [Mass/Vol] 14 mg/dL 6 - 20 mg/d L [place] Basic Metabolic Profon 02-10 Glucose [Mass/Vol] 535 mg/dL Critically high 70-99 [facility] Comment on above: Performed By: #### C DP, BMP #### [facility] [address] [place] [address] Customer Service Advisor: Mendel Sesay MD (cont.) Normal [facility] Comment on above: Result Comment: Aver age GFR for 50-59 years old: 93 mL/min/1.73sq m Chronic Kidney Disease: <60 mL/min/1.73sq m Kidney failure: <15 mL/min/1.73sq m eGFR calculated using average adult body mass. Additional eGFR calculator available at: http://www.[employer].com/multiple_crcl_2012.htm Performed By: #### C DP, BMP #### [facility] [address] [place], [place] [id number] Customer Service Advisor: Mendel Sesay MD Anion gap [Moles/Vol] 16 mmol/L Normal 9-17 [facility] Comment on above: Performed By: #### C DP, BMP #### [facility] [address] [place], [place] [phone] Customer Service Advisor: Mendel Sesay MD BUN/CRE Ratio 27 High 9-20 [facility] Comment on above: Performed By: #### C DP, BMP #### [facility] [address] [place], [place] [phone] Customer Service Advisor: Mendel Sesay MD Calcium [Mass/Vol] 9.4 mg/dL Normal 8.6-10.[address] [facility] Comment on above: Performed By: #### C DP, BMP #### [facility] [address] [place] [address] Customer Service Advisor: Mendel Sesay MD Chloride [Moles/Vol] 94 mmol/L Low 98-107 [facility] Comment on above: Performed By: #### C DP, BMP #### [facility] [address] [place] [address] Customer Service Advisor: Mendel Sesay MD CO2 [Moles/Vol] 18 mmol/L Low 20-[address] [facility] Comment on above: Performed By: #### C DP, BMP #### [facility] [address] [place], [place] [phone] Customer Service Advisor: Mendel Sesay MD Creatinine [Mass/Vol] 0.52 mg/dL Normal 0.50-0.90 [facility] Comment on above: Performed By: #### C DP, BMP #### [facility] [address] [place], [place] [phone] Customer Service Advisor: Mendel Sesay MD GFR, Amer >60 Normal >60 [facility] Comment on above: Performed By: #### C DP, BMP #### [facility] [address] [place], [place] [phone] Customer Service Advisor: Mendel Sesay MD GFR,non Amer >60 Normal >60 [facility] Comment on above: Performed By: #### C DP, BMP #### [facility] [address] [place], [place] [phone] Customer Service Advisor: Mendel Sesay MD Potassium [Moles/Vol] 4.6 mmol/L Normal 3.7-5.3 [facility] Comment on above: Performed By: #### C DP, BMP #### [facility] [address] [place], [place] [phone] Customer Service Advisor: Mendel Sesay MD Sodium [Moles/Vol] 128 mmol/L Low 135-[address] [facility] Comment on above: Performed By: #### C DP, BMP #### [facility] [address] [place], [place] [phone] Customer Service Advisor: Mendel Sesay MD Staging: Normal [facility] Comment on above: Result Comment: Stag e 1: Some kidney damage normal GFR Stage 2: Mild kidney damage GFR 60-89 Stage 3: Moderate kidney damage GFR 30-59 Stage 4: Severe kidney damage GFR 15-29 Stage 5: Severe kidney damage GFR <15 ESRD - chronic treatment by dialysis or transplant Performed By: #### C DP, BMP #### [facility] [address] [place], [place] [phone] Customer Service Advisor: Mendel Sesay MD Urea nitrogen [Mass/Vol] 14 mg/dL Normal 6-[address] [facility] Comment on above: Performed By: #### C DP, BMP #### [facility] [address] [place] [address] Customer Service Advisor: Mendel Sesay MD CBC Auto Differentialon - Basophils (Bld) [#/Vol] 0.04 10*3/uL [place] Basophils/100 WBC (Bld) 1 % 0 - 2 % M [place], [place] Differential Type NOT REPORTED [place] Eosinophils (Bld) [#/Vol] 0.07 10*3/uL [place] Eosinophils/100 WBC (Bld) 1 % 1 - 4 % [place] Erythrocyte distribution width (RBC) [Ratio] 12.7 % 11.8 - 14.4 % [place] Hematocrit (Bld) [Volume fraction] 45.4 % 36.3 - 47.1 % [place] Hemoglobin (Bld) [Mass/Vol] 15.3 g/dL High 11.9 - 15.1 g/dL [place] Immature granulocytes (Bld) [#/Vol] 10*3/uL [place] Immature granulocytes (Bld) [#/Vol] 0 % 0 [place] Interpretation and review of laboratory results Abnormal [place] Lymphocytes (Bld) [#/Vol] 1.25 10*3/uL [place] Lymphocytes/100 WBC (Bld) 21 % Low 24 - 43 % [place] MCH (RBC) [Entitic mass] 30.1 pg 25. 2 - 33.5 pg [place] MCHC (RBC) [Mass/Vol] 33.7 g/dL 28.4 - 34.8 g/dL [place] MCV (RBC) [Entitic vol] 89.4 fL 82.6 - 102.9 fL [place] Monocytes (Bld) [#/Vol] 0.66 10*3/uL [place] Monocytes/100 WBC (Bld) 11 % 3 - 12 % M [place] Platelet mean volume (Bld) [Entitic vol] 10.9 fL 8.1 - 13.5 fL [place] Platelets (Bld) [#/Vol] NOT REPORTED [place] Platelets (Bld) [#/Vol] 247 10*3/uL [place] RBC (Bld) [#/Vol] 5.08 10*6/uL 3.95 - 5.1 1 m/uL [place] RBC morphology finding Nom (Bld) NOT REPORTED [place] Segmented neutrophils/100 WBC (Bld) 66 % High 36 - 65 % [place] Segs Absolute 3.83 [place] WBC (Bld) [#/Vol] 5.9 10*3/uL [place] WBC (Bld) [#/Vol] 0.0 10*3/uL 0.0 per 10 0 WBC [place] WBC Morphology NOT REPORTED [place] CBC with Diffon 02-11-2020 Abs. Basophil 0.04 k/uL Normal 0.00-0.20 [facility] Comment on above: Performed By: #### C DP, BMP #### [facility] [address] [place] [address] [place] [phone] Customer Service Advisor: Mendel Sesay MD Abs.Imm.Granulocyte <0.03 Normal 0.00-0.[address] [facility] Comment on above: Performed By: #### C DP, BMP #### [address] [place] [phone] Customer Service Advisor: Mendel Sesay MD Abs.Neutrophil (Seg) 3.83 k/uL Normal 1.50-8.10 [facility] Comment on above: Performed By: #### C DP, BMP #### [address] [place] [address] Customer Service Advisor: Mendel Sesay MD Basophils/100 WBC (Bld) 1 % Normal 0-2 M [facility] Comment on above: Performed By: #### C DP, BMP #### [facility] [address] [place] [address] [place] [address] Customer Service Advisor: Mendel Sesay MD Eosinophils (Bld) [#/Vol] 0.07 10*3/uL Normal 0.00-0.[address] [facility] Comment on above: Performed By: #### C DP, BMP #### [facility] [address] [place], [facility] Customer Service Advisor: Mendel Sesay MD Eosinophils/100 WBC (Bld) 1 % Normal 1-[address] [facility] Comment on above: Performed By: #### C DP, BMP #### [facility] [address] [place] [address] Customer Service Advisor: Mendel Sesay MD Erythrocyte distribution width (RBC) [Ratio] 12.7 % Normal 11.8-14.[address] [facility] Comment on above: Performed By: #### C DP, BMP #### [address] [place] [address] Customer Service Advisor: Mendel Sesay MD Hematocrit (Bld) [Volume fraction] 45.4 % Normal 36.3-47.[address] [facility] Comment on above: Performed By: #### C DP, BMP #### [address] [place], [place] [address] Customer Service Advisor: Mendel Sesay MD Hemoglobin (Bld) [Mass/Vol] 15.3 g/dL High 11.9-15.[address] [facility] Comment on above: Performed By: #### C DP, BMP #### [address] [place], [place] [address] Customer Service Advisor: Mendel Sesay MD Immature granulocytes (Bld) [#/Vol] 0 % Normal [address] [facility] Comment on above: Performed By: #### C DP, BMP #### [address] [place] [phone] Customer Service Advisor: Mendel Sesay MD Lymphocytes (Bld) [#/Vol] 1.25 10*3/uL Normal 1.10-3.[address] [facility] Comment on above: Performed By: #### C DP, BMP #### [facility] [address] [place], [facility] Customer Service Advisor: Mendel Sesay MD Lymphocytes/100 WBC (Bld) 21 % Low 24-[address] [facility] Comment on above: Performed By: #### C DP, BMP #### [facility] [address] [place], [facility] Customer Service Advisor: Mendel Sesay MD MCH (RBC) [Entitic mass] 30.1 pg Normal 25.2-33.[address] [facility] Comment on above: Performed By: #### C DP, BMP #### [address] [place] [address] Customer Service Advisor: Mendel Sesay MD MCHC (RBC) [Mass/Vol] 33.7 g/dL Normal 28.4-34.8 [facility] Comment on above: Performed By: #### C DP, BMP #### [address] [place], [place] [address] Customer Service Advisor: Mendel Sesay MD MCV (RBC) [Entitic vol] 89.4 fL Normal 82.6-102.9 [facility] Comment on above: Performed By: #### C DP, BMP #### [address] [place], [facility] Customer Service Advisor: Mendel Sesay MD Monocytes (Bld) [#/Vol] 0.66 10*3/uL Normal 0.10-1.[address] [facility] Comment on above: Performed By: #### C DP, BMP #### [facility] [address] [place], [facility] Customer Service Advisor: Mendel Sesay MD Monocytes/100 WBC (Bld) 11 % Normal 3-12 M [facility] Comment on above: Performed By: #### C DP, BMP #### [facility] [address] [place] [facility] Customer Service Advisor: Mendel Sesay MD Neutrophil (Seg) 66 % High 36-65 [facility] Comment on above: Performed By: #### C DP, BMP #### [facility] [address] [place], [place] [id number] Customer Service Advisor: Mendel Sesay MD NRBC Automated 0.0 per 100 WBC Normal 0.[address] [facility] Comment on above: Performed By: #### C DP, BMP #### [facility] [address] [place], [place] [id number] Customer Service Advisor: Mendel Sesay MD Platelet mean volume (Bld) [Entitic vol] 10.9 fL Normal 8.1-13.[address] [facility] Comment on above: Performed By: #### C DP, BMP #### [facility] [address] [place], [place] [id number] Customer Service Advisor: Mendel Sesay MD Platelets (Bld) [#/Vol] 247 10*3/uL Normal 138-[address] [facility] Comment on above: Performed By: #### C DP, BMP #### [facility] [address] [place], [place] [id number] Customer Service Advisor: Mendel Sesay MD RBC (Bld) [#/Vol] 5.08 10*6/uL Normal 3.95-5.[address] [facility] Comment on above: Performed By: #### C DP, BMP #### [facility] [address] [place], [place] [id number] Customer Service Advisor: Mendel Sesay MD WBC (Bld) [#/Vol] 5.9 10*3/uL Normal 3.5-11.[address] [facility] Comment on above: Performed By: #### C DP, BMP #### [facility] [address] [place], [place] [id number] Customer Service Advisor: Mendel Sesay MD Auto Diff Performed NOT REPORTED Normal [facility] Comment on above: Performed By: #### C DP, BMP #### [facility] [address] [place], [place] [id number] Customer Service Advisor: Mendel Sesay MD Platelets (Bld) [#/Vol] NOT REPORTED Normal [facility] Comment on above: Performed By: #### C DP, BMP #### [facility] [address] [place], [place] [id number] Customer Service Advisor: Mendel Sesay MD RBC morphology finding Nom (Bld) NOT REPORTED Normal [facility] Comment on above: Performed By: #### C DP, BMP #### [facility] [address] [place], [place] [id number] Customer Service Advisor: Mendel Sesay MD WBC Morphology NOT REPORTED Normal [facility] Comment on above: Performed By: #### C DP, BMP #### [facility] [address] [place], [place] [phone] Customer Service Advisor: Mendel Sesay MD CT ABDOMEN PELVIS WO CONTRAS Ton 02-11-2020 CT ABDOMEN PELVIS WO CONTRAST EXAMINATION: CT OF THE ABDOMEN AND PELVIS WITHOUT CONTRAST 02/11/2020 10:45 am TECHNIQUE: CT of the abdomen and pelvis was performed without the administration of intravenous contrast. Multiplanar reformatted images are provided for review. Dose modulation, iterative reconstruction, and/or weight based adjustment of the mA/kV was utilized to reduce the radiation dose to as low as reasonably achievable. COMPARISON: 06/26/2016 HISTORY: ORDERING SYSTEM PROVIDED HISTORY: Renal colic TECHNOLOGIST PROVIDED HISTORY: Is the patient ?->No FINDINGS: Lower Chest: No parenchymal infiltrate or pleural effusion is identified. No pericardial effusion is identified. Organs: Focal fat infiltration seen along the falciform ligament. Subtle increase hyperdensity seen layering within the gallbladder, on and around axial image 61. The adrenal glands appear unremarkable. The pancreas shows no peripancreatic inflammatory process, mass or ductal dilation. There are 2 nonobstructive calculi seen within the lower pole of the right kidney. There is a small nonobstructive calculus in the upper pole the left kidney as well as a nonobstructive calculus in the lower pole the left kidney. No hydronephrosis is identified. No hydroureter is seen. No periureteral stranding is identified to suggest a recently passed stone. GI/Bowel: The appendix appears normal. Colonic diverticulosis is identified. No acute diverticulitis is seen. No ileus or obstruction is identified. Pelvis: No pelvic mass is identified. The bladder appears unremarkable. The uterus and adnexal regions appear unremarkable as well. No free fluid is identified in the pelvis. Peritoneum/Retroperi toneum: No abdominal aortic aneurysm is identified. Atherosclerotic disease is seen. No retroperitoneal or mesenteric lymphadenopathy is identified. Bones/Soft Tissues: No acute subcutaneous soft tissue abnormality is identified. No inguinal lymphadenopathy is identified. No acute osseous abnormality is seen. No destructive osseous process is identified. IMPRESSION: Nonobstructive calculi are seen in the kidneys bilaterally. No CT findings of recently passed stone. Subtle increased dependent hyperdensity seen within the gallbladder, which could be related to cholelithiasis or sludge. No pericholecystic inflammatory changes are seen or gallbladder wall thickening to a suggest acute cholecystitis based on CT. Diverticulosis without acute diverticulitis. Other incidental stable findings as above. Interpreted by: Miller Gould MD Signed by: Miller Gould MD 02/11/20 Final result Normal [facility] CT ABDOMEN PELVIS WO CONTRAS T Additional Contrast? Noneon 02-11-2020 Nonobstructive calculi are seen in the kidneys bilaterally. No CT findings of recently passed stone. Subtle increased dependent hyperdensity seen within the gallbladder, which could be related to cholelithiasis or sludge. No pericholecystic inflammatory changes are seen or gallbladder wall thickening to a suggest acute cholecystitis based on CT. Diverticulosis without acute diverticulitis. Other incidental stable findings as above. [facility] [place] EXAMINATION: CT OF THE ABDOMEN AND PELVIS WITHOUT CONTRAST 02/11/2020 10:45 am TECHNIQUE: CT of the abdomen and pelvis was performed without the administration of intravenous contrast. Multiplanar reformatted images are provided for review. Dose modulation, iterative reconstruction, and/or weight based adjustment of the mA/kV was utilized to reduce the radiation dose to as low as reasonably achievable. COMPARISON: 06/26/2016 HISTORY: ORDERING SYSTEM PROVIDED HISTORY: Renal colic TECHNOLOGIST PROVIDED HISTORY: Is the patient ?->No FINDINGS: Lower Chest: No parenchymal infiltrate or pleural effusion is identified. No pericardial effusion is identified. Organs: Focal fat infiltration seen along the falciform ligament. Subtle increase hyperdensity seen layering within the gallbladder, on and around axial image 61. The adrenal glands appear unremarkable. The pancreas shows no peripancreatic inflammatory process, mass or ductal dilation. There are 2 nonobstructive calculi seen within the lower pole of the right kidney. There is a small nonobstructive calculus in the upper pole the left kidney as well as a nonobstructive calculus in the lower pole the left kidney. No hydronephrosis is identified. No hydroureter is seen. No periureteral stranding is identified to suggest a recently passed stone. GI/Bowel: The appendix appears normal. Colonic diverticulosis is identified. No acute diverticulitis is seen. No ileus or obstruction is identified. Pelvis: No pelvic mass is identified. The bladder appears unremarkable. The uterus and adnexal regions appear unremarkable as well. No free fluid is identified in the pelvis. Peritoneum/Retroperi toneum: No abdominal aortic aneurysm is identified. Atherosclerotic disease is seen. No retroperitoneal or mesenteric lymphadenopathy is identified. Bones/Soft Tissues: No acute subcutaneous soft tissue abnormality is identified. No inguinal lymphadenopathy is identified. No acute osseous abnormality is seen. No destructive osseous process is identified. [facility] [place], pn Incoming Radiant Results From [employer] - 02/11/2020 10:58 AM EDT EXAMINATION: CT OF THE ABDOMEN AND PELVIS WITHOUT CONTRAST 02/11/2020 10:45 am TECHNIQUE: CT of the abdomen and pelvis was performed without the administration of intravenous contrast. Multiplanar reformatted images are provided for review. Dose modulation, iterative reconstruction, and/or weight based adjustment of the mA/kV was utilized to reduce the radiation dose to as low as reasonably achievable. COMPARISON: 06/26/2016 HISTORY: ORDERING SYSTEM PROVIDED HISTORY: Renal colic TECHNOLOGIST PROVIDED HISTORY: Is the patient ?->No FINDINGS: Lower Chest: No parenchymal infiltrate or pleural effusion is identified. No pericardial effusion is identified. Organs: Focal fat infiltration seen along the falciform ligament. Subtle increase hyperdensity seen layering within the gallbladder, on and around axial image 61. The adrenal glands appear unremarkable. The pancreas shows no peripancreatic inflammatory process, mass or ductal dilation. There are 2 nonobstructive calculi seen within the lower pole of the right kidney. There is a small nonobstructive calculus in the upper pole the left kidney as well as a nonobstructive calculus in the lower pole the left kidney. No hydronephrosis is identified. No hydroureter is seen. No periureteral stranding is identified to suggest a recently passed stone. GI/Bowel: The appendix appears normal. Colonic diverticulosis is identified. No acute diverticulitis is seen. No ileus or obstruction is identified. Pelvis: No pelvic mass is identified. The bladder appears unremarkable. The uterus and adnexal regions appear unremarkable as well. No free fluid is identified in the pelvis. Peritoneum/Retroperi toneum: No abdominal aortic aneurysm is identified. Atherosclerotic disease is seen. No retroperitoneal or mesenteric lymphadenopathy is identified. Bones/Soft Tissues: No acute subcutaneous soft tissue abnormality is identified. No inguinal lymphadenopathy is identified. No acute osseous abnormality is seen. No destructive osseous process is identified. IMPRESSION: Nonobstructive calculi are seen in the kidneys bilaterally. No CT findings of recently passed stone. Subtle increased dependent hyperdensity seen within the gallbladder, which could be related to cholelithiasis or sludge. No pericholecystic inflammatory changes are seen or gallbladder wall thickening to a suggest acute cholecystitis based on CT. Diverticulosis without acute diverticulitis. Other incidental stable findings as above. [place], [place] Metabolic Panelon 02-11-2020 GFR/1.73 sq M predicted among non-blacks MDRD (S/P/Bld) [Vol rate/Area] [place] Comment on above: Average GFR for 50-5 9 years old: 93 mL/min/1.73sq m Chronic Kidney Disease: <60 mL/min/1.73sq m Kidney failure: <15 mL/min/1.73sq m eGFR calculated using average adult body mass. Additional eGFR calculator available at: [email or web address] Stage 1: Some kidney damage normal GFR Stage 2: Mild kidney damage GFR 60-89 Stage 3: Moderate kidney damage GFR 30-59 Stage 4: Severe kidney damage GFR 15-29 Stage 5: Severe kidney damage GFR <15 ESRD - chronic treatment by dialysis or transplant Urinalysis w/ Microon 2019 ----- Normal [facility] Comment on above: Performed By: #### U AMIC #### [facility] [address] [place], [place] [id number] Customer Service Advisor: Mendel Sesay MD Acetoacetic Acid,Ur 4+ Abnormal NEG [facility] Comment on above: Performed By: #### U AMIC #### [facility] [address] [place], [place] [phone] Customer Service Advisor: Mendel Sesay MD Bacteria LM.HPF (Urine sed) [#/Area] TRACE Abnormal NONE [facility] Comment on above: Performed By: #### U AMIC #### [facility] [address] [place], [place] [id number] Customer Service Advisor: Mendel Sesay MD Bilirubin, SemiQt,Ur SMALL Abnormal NEG [facility] Comment on above: Performed By: #### U AMIC #### [facility] [address] [place], [place] [phone] Customer Service Advisor: Mendel Sesay MD Color (U) YELLOW Normal YEL [facility] Comment on above: Performed By: #### U AMIC #### [facility] [address] [place], [place] [phone] Customer Service Advisor: Mendel Sesay MD Epithelial cells LM.HPF (Urine sed) [#/Area] 2 TO 5 Normal 0-25 [facility] Comment on above: Performed By: #### U AMIC #### [facility] [address] [place], [place] [phone] Customer Service Advisor: Mendel Sesay MD Glucose Ql (U) 3+ Abnormal NEG [facility] Comment on above: Performed By: #### U AMIC #### [facility] [address] [place], [place] [address]23[address]83 Customer Service Advisor: Mendel Sesay MD Hemoglobin, Ur Negative Normal NEG [facility] Comment on above: Performed By: #### U AMIC #### [facility] [address] [place], [place] [phone] Customer Service Advisor: Mendel Sesay MD Leukocyte esterase Test strip Ql (U) Negative Normal NEG [facility] Comment on above: Performed By: #### U AMIC #### [facility] [address] [place], [place] [address]89[address]83 Customer Service Advisor: Mendel Sesay MD Nitrite,Ur Negative Normal NEG [facility] Comment on above: Performed By: #### U AMIC #### [facility] [address] [place], [place] [phone] Customer Service Advisor: Mendel Sesay MD pH (U) 6.0 [pH] Normal 5.0-9.[address] [facility] Comment on above: Performed By: #### U AMIC #### [facility] [address] [place], [facility] Customer Service Advisor: Mendel Sesay MD Protein Ql (U) TRACE Abnormal NEG [facility] Comment on above: Performed By: #### U AMIC #### [address] [place], [place] 2545383 Customer Service Advisor: Mendel Sesay MD RBC (U) [#/Vol] None Normal 0-[address] [facility] Comment on above: Performed By: #### U AMIC #### [facility] [address] [place], [facility] Customer Service Advisor: Mendel Sesay MD Specific gravity (U) [Rel density] 1.020 Normal 1.010-1.[address] [facility] Comment on above: Performed By: #### U AMIC #### [facility] [address] [place], [place] [address] Customer Service Advisor: Mendel Sesay MD Turbidity CLEAR Normal CLEAR [facility] Comment on above: Performed By: #### U AMIC #### [facility] [address] [place], [place] [phone] Customer Service Advisor: Mendel Sesay MD Urobilinogen,Ur Normal Normal NORM [facility] Comment on above: Performed By: #### U AMIC #### [facility] [address] [place], [place] [address]83 Customer Service Advisor: Mendel Sesay MD WBC (U) [#/Vol] 2 TO 5 Normal 0-[address] [facility] Comment on above: Performed By: #### U AMIC #### [facility] [address] [place], [place] [phone] Customer Service Advisor: Mendel Sesay MD Amorphous sediment LM Ql (Urine sed) NOT REPORTED Normal NONE [facility] Comment on above: Performed By: #### U AMIC #### [address] [place] [phone] Customer Service Advisor: Mendel Sesay MD Casts LM.LPF (Urine sed) [#/Area] NOT REPORTED Normal [facility] Comment on above: Performed By: #### U AMIC #### [address] [place] [phone] Customer Service Advisor: Mendel Sesay MD Comment NOT REPORTED Normal [facility] Comment on above: Performed By: #### U AMIC #### [facility] [address] [place] [phone] Customer Service Advisor: Mendel Sesay MD Crystals LM Nom (Urine sed) NOT REPORTED Normal [facility] Comment on above: Performed By: #### U AMIC #### [facility] [address] [place] [address] Customer Service Advisor: Mendel Sesay MD Epithelial, Renal NOT REPORTED Normal [address] [facility] Comment on above: Performed By: #### U AMIC #### [facility] [address] [place] [address] Customer Service Advisor: Mendel Sesay MD Mucus Strands NOT REPORTED Normal [facility] Comment on above: Performed By: #### U AMIC #### [facility] [address] [place] [address] Customer Service Advisor: Mendel Sesay MD Other Observations NOT REPORTED Normal NREQ [facility] Comment on above: Performed By: #### U AMIC #### [facility] [address] [place] [address] Customer Service Advisor: Mendel Sesay MD Trichomonas NOT REPORTED Normal [facility] Comment on above: Performed By: #### U AMIC #### [facility] [address] [place] [address] Customer Service Advisor: Mendel Sesay MD Yeast LM Ql (Urine sed) NOT REPORTED Normal [facility] Comment on above: Performed By: #### U AMIC #### [facility] [address] [place] [address] Customer Service Advisor: Mendel Sesay MD Urinalysis with Microscopico n 02-11-2020 Amorphous, UA NOT REPORTED None [facility], [place] Bacteria, UA TRACE Abnormal None [facility] Bilirubin Urine SMALL Abnormal NEGATIVE [facility] Casts UA NOT REPORTED /LPF [facility] Color, UA YELLOW YELLOW [place], [place] Crystals, UA NOT REPORTED None /HPF [facility] Epithelial Cells UA 2 TO 5 [facility] Glucose, Ur 3+ Abnormal NEGATIVE [facility] Interpretation and review of laboratory results Abnormal [facility] Ketones Ql (U) 4+ Abnormal NEGATIVE [facility] Leukocyte esterase Test strip Ql (U) Negative NEGATIVE [facility] Mucus, UA NOT REPORTED None [facility] Nitrite, Urine Negative NEGATIVE [facility] Other Observations UA NOT REPORTED NOT REQ. M [facility], [place] pH, UA 6.0 [facility] Protein (U) [Mass/Vol] TRACE Abnormal NEGATIVE [facility], [place] RBC (U) [#/Vol] None [facility] Renal Epithelial, UA NOT REPORTED 0 /HPF Me [facility], [place] Specific [place], UA 1.020 [facility], [place] Trichomonas, UA NOT REPORTED None [facility] Turbidity UA CLEAR CLEAR [facility] Urinalysis Comments NOT REPORTED [facility] Urine Hgb Negative NEGATIVE [facility] Urobilinogen, Urine Normal Normal [facility] WBC, UA 2 TO 5 [facility] Yeast, UA NOT REPORTED None [facility] - [facility] Vital Signs Date Time Vital Sign Value Performing Clinician Tari cabrla 07-05-2022 10:20-0500 SaO2% (BldA) [Mass fraction] 95 % Talita Rae DO Work Phone: [facility] 07-05-2022 10:18-0500 Heart rate 103 /min Talita Rae DO Work Phone: [facility] [employer] 07-05-2022 09:30-0500 Body temperature 99.19 [degF] Talita Rae DO Work Phone: [facility] [employer] 07-05-2022 09:30-0500 Diastolic blood pressure 73 mm[Hg] Talita Rae DO Work Phone: [facility] [employer] 07-05-2022 09:30-0500 Respiratory rate 20 /min Talita Rae DO Work Phone: [facility] 07-05-2022 09:30-0500 Systolic blood pressure 167 mm[Hg] Talita Rae DO Work Phone: [email or web address] [employer] 06-22-2022 17:40-0500 Diastolic blood pressure 58 mm[Hg] Irvin Magana MD Work Phone: [facility] 06-22-2022 17:40-0500 Heart rate 108 /min Irvin Magana MD Work Phone: [facility] 06-22-2022 17:40-0500 Respiratory rate 24 /min Irvin Magana MD Work Phone: [facility] 06-22-2022 17:40-0500 SaO2% (BldA) [Mass fraction] 99 % Irvin Magana MD Work Phone: [facility] 06-22-2022 17:40-0500 Systolic blood pressure 129 mm[Hg] Irvin Magana MD Work Phone: [facility] 06-22-2022 16:08-0500 Body temperature 97.2 [degF] Irvin Magana MD Work Phone: [facility] 06-21-2022 20:00-0500 Body height 170.2 cm Irvin Magana MD Work Phone: [facility] 06-21-2022 20:00-0500 Body mass index (BMI) [Ratio] 29.76 kg/m2 Irvin Magana MD Work Phone: [facility] 06-21-2022 20:00-0500 Body weight 86.18 kg Irvin Magnaa MD Work Phone: [facility] 06-21-2022 16:58-0500 SaO2% (BldA) [Mass fraction] 68.4 % Irvin Magana MD Work Phone: [facility] 04-07-2022 14:05-0400 Body height 170.2 cm Manish Shea MD Work Phone: [facility] 04-07-2022 14:05-0400 Body mass index (BMI) [Ratio] 32.72 kg/m2 Manish Shea MD Work Phone: [facility] [employer] [facility] 04-07-2022 14:05-0400 Body weight 94.8 kg Manish Shea MD Work Phone: [facility] 04-07-2022 14:05-0400 Diastolic blood pressure 88 mm[Hg] Manish Shea MD Work Phone: [facility] 04-07-2022 14:05-0400 Heart rate 112 /min Manish Shea MD Work Phone: [facility] [employer] [facility] 04-07-2022 14:05-0400 Respiratory rate 16 /min Manish Shea MD Work Phone: [facility] [employer] [facility] 04-07-2022 14:05-0400 Systolic blood pressure 126 mm[Hg] Manish Shea MD Work Phone: [facility] 02-03-2022 14:54-0400 Body mass index (BMI) [Ratio] 32.32 kg/m2 Manish Shea MD Work Phone: [facility] [employer] [facility] 02-03-2022 14:54-0400 Body weight 93.62 kg Manish Shea MD Work Phone: [facility] [employer] [facility] 02-03-2022 14:54-0400 Diastolic blood pressure 65 mm[Hg] Manish Shea MD Work Phone: [facility] [employer] [facility] 02-03-2022 14:54-0400 Heart rate 112 /min Manish Shea MD Work Phone: [facility] [employer] [facility] 02-03-2022 14:54-0400 Systolic blood pressure 141 mm[Hg] Manish Shea MD Work Phone: [facility] [employer] [facility] 12-09-2021 14:23-0400 Body height 170.2 cm Manish Shea MD Work Phone: [facility] [employer] [facility] 12-09-2021 14:23-0400 Body mass index (BMI) [Ratio] 33.04 kg/m2 Manish Shea MD Work Phone: [facility] [employer] [facility] 12-09-2021 14:23-0400 Body weight 95.71 kg Manish Shea MD Work Phone: [facility] [employer] [facility] 12-09-2021 14:23-0400 Diastolic blood pressure 80 mm[Hg] Manish Shea MD Work Phone: [facility] [employer] [facility] 12-09-2021 14:23-0400 Respiratory rate 16 /min Manish Shea MD Work Phone: [facility] 12-09-2021 14:23-0400 Systolic blood pressure 120 mm[Hg] Manish Shea MD Work Phone: [facility] 10-28-2021 13:11-0400 Body height 170.2 cm Safia Mazariegostie OBJECTIVE C DEVELOPER Work Phone: [facility] 10-28-2021 13:11-0400 Body mass index (BMI) [Ratio] 33.88 kg/m2 Safia [place] OBJECTIVE C DEVELOPER Work Phone: [facility] 10-28-2021 13:11-0400 Body weight 98.16 kg Safia [place] OBJECTIVE C DEVELOPER Work Phone: [facility] 10-28-2021 13:11-0400 Diastolic blood pressure 80 mm[Hg] Safia [place] OBJECTIVE C DEVELOPER Work Phone: [facility] 10-28-2021 13:11-0400 Heart rate 93 /min Safia [place] OBJECTIVE C DEVELOPER Work Phone: [facility] 10-28-2021 13:11-0400 Respiratory rate 18 /min Safia Anna OBJECTIVE C DEVELOPER Work Phone: [facility] 10-28-2021 13:11-0400 Systolic blood pressure 118 mm[Hg] Safia Anna OBJECTIVE C DEVELOPER Work Phone: [facility] 06-02-2021 12:15-0500 Diastolic blood pressure 88 mm[Hg] Kavita Hardeep OBJECTIVE C DEVELOPER Work Phone: [facility] Work Phone: 06-02-2021 12:15-0500 Systolic blood pressure 132 mm[Hg] Kavita Hardeep OBJECTIVE C DEVELOPER Work Phone: [facility] Work Phone: 06-02-2021 11:28-0500 Body height 168.91 cm Kavita Hardeep OBJECTIVE C DEVELOPER Work Phone: [facility] Work Phone: 06-02-2021 11:28-0500 Body mass index (BMI) [Ratio] 31.2 kg/m2 Kavita Meier CNP Work Phone: [facility] Work Phone: 06-02-2021 11:28-0500 Body surface area Derived from formula 1.99 m2 Kavita Meier CNP Work Phone: [facility] Work Phone: 06-02-2021 11:28-0500 Body temperature 96.6 [degF] Kavita Meier CNP Work Phone: [facility] Work Phone: 06-02-2021 11:28-0500 Body weight 89 kg Kavita Meier CNP Work Phone: [facility] Work Phone: 06-02-2021 11:28-0500 Diastolic blood pressure 78 mm[Hg] Kavita Meier CNP Work Phone: [facility] Work Phone: 06-02-2021 11:28-0500 Heart rate 118 /min Kavita Meier CNP Work Phone: [facility] Work Phone: 06-02-2021 11:28-0500 SaO2% (BldA) [Mass fraction] 96 % Kavita Meier CNP Work Phone: [facility] Work Phone: 06-02-2021 11:28-0500 Systolic blood pressure 142 mm[Hg] Kavita Meier CNP Work Phone: [facility] Work Phone: 05-18-2021 16:27-0400 Body height 168.91 cm Kavita Meier CNP Work Phone: [facility] Work Phone: 05-18-2021 16:27-0400 Body mass index (BMI) [Ratio] 31.2 kg/m2 Kavita Meier CNP Work Phone: [facility] Work Phone: 05-18-2021 16:27-0400 Body surface area Derived from formula 1.99 m2 Kavita Meier CNP Work Phone: [facility] Work Phone: 05-18-2021 16:27-0400 Body temperature 97.6 [degF] Kavita Meier CNP Work Phone: [facility] Work Phone: 05-18-2021 16:27-0400 Body weight 88.91 kg Kavita Meier CNP Work Phone: [facility] Work Phone: 05-18-2021 16:27-0400 Diastolic blood pressure 76 mm[Hg] Kavita Meier CNP Work Phone: [facility] Work Phone: 05-18-2021 16:27-0400 Heart rate 120 /min Kavita Meier CNP Work Phone: [facility] Work Phone: 05-18-2021 16:27-0400 Respiratory rate 20 /min Kavita Meier CNP Work Phone: [facility] Work Phone: 05-18-2021 16:27-0400 SaO2% (BldA) [Mass fraction] 95 % Kavita Meier CNP Work Phone: [facility] Work Phone: 05-18-2021 16:27-0400 Systolic blood pressure 136 mm[Hg] Kavitadima Meier CNP Work Phone: [facility] Work Phone: 04-21-2021 10:31-0400 Body height 168.91 cm Kavita Meier CNP Work Phone: [facility] Work Phone: 04-21-2021 10:31-0400 Body mass index (BMI) [Ratio] 29.3 kg/m2 Kavita Meier CNP Work Phone: [facility] Work Phone: 04-21-2021 10:31-0400 Body surface area Derived from formula 1.94 m2 Kvaita Meier CNP Work Phone: [facility] Work Phone: 04-21-2021 10:31-0400 Body temperature 97.4 [degF] Kavita Meier CNP Work Phone: [facility] Work Phone: 04-21-2021 10:31-0400 Body weight 83.73 kg Kavita Meier CNP Work Phone: [facility] Work Phone: 04-21-2021 10:31-0400 Diastolic blood pressure 76 mm[Hg] Kavita Meier CNP Work Phone: [facility] Work Phone: 04-21-2021 10:31-0400 Heart rate 107 /min Kavita Meier CNP Work Phone: [facility] Work Phone: 04-21-2021 10:31-0400 SaO2% (BldA) [Mass fraction] 96 % Kavita Meier CNP Work Phone: [facility] Work Phone: 04-21-2021 10:31-0400 Systolic blood pressure 124 mm[Hg] Kavita Meier CNP Work Phone: [facility] Work Phone: 04-16-2021 07:30-0400 Body temperature 98.01 [degF] Reji Rondon MD Work Phone: [employer] Work Phone: 04-16-2021 07:30-0400 Diastolic blood pressure 84 mm[Hg] Reji Rondon MD Work Phone: [employer] Work Phone: 04-16-2021 07:30-0400 Heart rate 99 /min Reji Rondon MD Work Phone: [employer] Work Phone: 04-16-2021 07:30-0400 Respiratory rate 16 /min Reji Rondon MD Work Phone: [employer] Work Phone: 04-16-2021 07:30-0400 SaO2% (BldA) [Mass fraction] 97 % Reji Rondon MD Work Phone: [employer] Work Phone: 04-16-2021 07:30-0400 Systolic blood pressure 164 mm[Hg] Reji Rondon MD Work Phone: [employer] Work Phone: 04-16-2021 06:00-0400 Body mass index (BMI) [Ratio] 30.62 kg/m2 Reji Rondon MD Work Phone: [employer] Work Phone: 04-16-2021 06:00-0400 Body weight 83.46 kg Reji Rondon MD Work Phone: [employer] Work Phone: 04-14-2021 08:09-0400 Body height 165.1 cm Reji Rondon MD Work Phone: [employer] Work Phone: Encounters Encounter Date Encounter Type Care Provider Facility Start: 09-02-2022 ambulatory KAVITA [facility] Start: 07-05-2022 End: 07-05-2022 Emergency department patient visit TALITA M KYRA [facility] Start: 07-05-2022 End: 07-05-2022 Emergency department patient visit Talita Rae Work Phone: [facility] ED Comment on above: Acute sinusitis, rec urrence not specified, unspecified location (Primary Dx) Start: 07-04-2022 End: 07-05-2022 ambulatory MANISH SHEA [facility] Start: 07-04-2022 End: 07-04-2022 Subsequent hospital visit by physician [facility] Start: 06-21-2022 End: 06-22-2022 ambulatory KAVITA BRYANTER [facility] Start: 06-21-2022 End: 06-22-2022 Emergency department patient visit Irvin Magana MD Work Phone: [facility] Comment on above: DKA (diabetic ketoac idosis) Start: 04-07-2022 ambulatory KAVITA BRYANTER [facility] Start: 04-07-2022 End: 04-07-2022 Office outpatient visit 25 minutes Manish Shea MD Work Phone: [facility] Endocr[facility] Comment on above: Uncontrolled type 2 diabetes mellitus with hyperglycemia (Primary Dx) Start: 03-29-2022 End: 03-30-2022 ambulatory [facility] Start: 03-29-2022 End: 03-29-2022 Subsequent hospital visit by physician [facility] Start: 03-23-2022 ambulatory KAVITA HARDEEP [facility] Start: 02-22-2022 End: 02-23-2022 ambulatory KEAGAN TREJO [facility] Start: 02-22-2022 End: 02-22-2022 Subsequent hospital visit by physician [facility] Comment on above: Dysuria; Acute cystitis with hematuria Start: 02-03-2022 ambulatory KAVITA HARDEEP [facility] Start: 02-03-2022 End: 02-03-2022 Office outpatient visit 25 minutes Manish Shea MD Work Phone: [facility] Endocrinology Comment on above: Uncontrolled type 2 diabetes mellitus with hyperglycemia (Primary Dx) Start: 12-09-2021 ambulatory KAVITA MEIER [facility] Start: 12-09-2021 End: 12-09-2021 Office outpatient visit 25 minutes Manish Shea MD Work Phone: [facility] Endocrinology Comment on above: Uncontrolled type 2 diabetes mellitus with hyperglycemia (Primary Dx) Start: 11-18-2021 ambulatory KAVITA MEIER [facility] Start: 11-16-2021 End: 11-17-2021 ambulatory [facility] Start: 10-28-2021 ambulatory KAVITA HARDEEP [facility] Start: 10-28-2021 End: 10-28-2021 Office outpatient visit 25 minutes Safia Castillo CNP Work Phone: [facility] Endocrinology Comment on above: Uncontrolled type 2 diabetes mellitus with hyperglycemia (Primary Dx); Mixed hyperlipidemia; Obesity (BMI 30.0-34.9); Durham syndrome Start: 10-11-2021 End: 10-12-2021 ambulatory SAFIA [facility] Start: 10-11-2021 End: 10-11-2021 Subsequent hospital visit by physician [facility] Start: 10-08-2021 End: 10-09-2021 ambulatory SAFIA [facility] Start: 09-30-2021 ambulatory KAVITA HARDEEP [facility] Start: 08-11-2021 End: 08-12-2021 ambulatory MANISH [facility] Start: 08-11-2021 End: 08-11-2021 Subsequent hospital visit by physician [facility] Start: 06-02-2021 End: 06-02-2021 FQHC visit, estab jatin Meier CNP Work Phone: [facility] Work Phone: Start: 06-02-2021 End: 06-02-2021 General Kavita Meier OBJECTIVE C DEVELOPER Work Phone: [facility] Work Phone: Start: 05-18-2021 End: 05-18-2021 FQHC visit, estab pt Kavita Meier OBJECTIVE C DEVELOPER Work Phone: [facility] Work Phone: Start: 04-21-2021 End: 04-21-2021 FQHC visit, estab pt Suha Baileymons [facility] Work Phone: [facility] Work Phone: Start: 04-21-2021 End: 04-21-2021 FQ visit new patient Kavita Meier OBJECTIVE C DEVELOPER Work Phone: [facility] Work Phone: Start: 04-13-2021 End: 04-16-2021 Evaluation and management of inpatient Reji Rondon MD Work Phone: [facility] Comment on above: Diabetic ketoacidosi s without coma associated with diabetes mellitus due to underlying condition (HCC) (Primary Dx); Type 2 diabetes mellitus with complication, without long-term current use of insulin (HCC); Nephrolithiasis Start: 02-11-2020 End: 02-14-2020 Patient encounter procedure [facility] Start: 02-11-2020 End: 02-13-2020 Subsequent hospital visit by physician [facility] Cat Scan Room [facility] Laboratory Comment on above: Renal colic Start: 02-11-2020 End: 02-11-2020 Subsequent hospital visit by physician [facility] Lab Drawing Room [facility] Laboratory Comment on above: Renal colic End: 02-27-2017 Patient encounter status Reji Rondon MD Work Phone: [facility] Work Phone: Procedures Date Procedure Procedure Detail Performing Clinician Start: 07-05-2022 Gluc bld gluc mntr d ev cleared fda spec home use Talita Rae DO Work Phone: Start: 07-04-2022 Comprehensive metabolic panel Manish Shea MD Work Phone: Start: 07-04-2022 Lipid panel Manish granados MD Work Phone: Start: 07-04-2022 PATIENT FASTING? Manish Shea MD Work Phone: Start: 07-04-2022 Urine albumin quantitative Manish Shea MD Work Phone: Start: 06-22-2022 End: 06-22-2022 Renal function panel Brijesh Taveras DELIVERY DRIVER ASSISTANT-OBJECTIVE C DEVELOPER Work Phone: Start: 06-22-2022 End: 06-22-2022 Renal function panel Brijesh Taveras DELIVERY DRIVER ASSISTANT-OBJECTIVE C DEVELOPER Work Phone: Start: 06-22-2022 Gluc bld gluc mntr d ev cleared fda spec home use Cecilio Saucedo MD Work Phone: Start: 06-22-2022 End: 06-22-2022 Gluc bld gluc mntr dev cleared fda spec home use Cecilio Saucedo MD Work Phone: Start: 06-22-2022 Gluc bld gluc mntr d ev cleared fda spec home use Cecilio Saucedo MD Work Phone: Start: 06-22-2022 Gluc bld gluc mntr d ev cleared fda spec home use Cecilio Saucedo MD Work Phone: Start: 06-22-2022 Complete blood count with white cell differential, automated Brijesh Taveras DELIVERY DRIVER ASSISTANT-OBJECTIVE C DEVELOPER Work Phone: Start: 06-22-2022 End: 06-22-2022 Renal function panel Irvin Magana MD Work Phone: Start: 06-22-2022 End: 06-22-2022 Gluc bld gluc mntr dev cleared fda spec home use Cecilio Saucedo MD Work Phone: Start: 06-22-2022 End: 06-22-2022 Renal function panel Irvin Magana MD Work Phone: Start: 06-21-2022 Gluc bld gluc mntr d ev cleared fda spec home use Cecilio Saucedo MD Work Phone: Start: 06-21-2022 End: 06-21-2022 Gluc bld gluc mntr dev cleared fda spec home use Cecilio Saucedo MD Work Phone: Start: 06-21-2022 End: 06-21-2022 Renal function panel Irvin Magana MD Work Phone: Start: 06-21-2022 Gluc bld gluc mntr d ev cleared fda spec home use Irvin Magana MD Work Phone: Start: 06-21-2022 Sars-cov-2 detection by dna/rna Irvin Magana MD Work Phone: Start: 06-21-2022 Blood gases any comb ination ph pco2 po2 co2 hco3 Irvin Magana MD Work Phone: Start: 06-21-2022 End: 06-21-2022 Urinalysis microscopic only Irvin Carlin se, MD Work Phone: Start: 06-21-2022 Urinalysis, reagent strip without microscopy Irvin Magana MD Work Phone: Start: 06-21-2022 End: 06-21-2022 Ecg routine ecg w/least 12 lds trcg only w/o i&r Irvin Magana MD Work Phone: Start: 06-21-2022 Comprehensive metabolic panel Irvin Magana MD Work Phone: Start: 04-07-2022 Continuous glucose m onitoring analysis i&r Manish Shea MD Work Phone: Start: 03-29-2022 Comprehensive metabolic panel Manish Shea MD Work Phone: Start: 03-29-2022 Lipid panel Manish granados MD Work Phone: Start: 03-29-2022 PATIENT FASTING? Manish Shea MD Work Phone: Start: 02-03-2022 Continuous glucose m onitoring analysis i&r Manish Shea MD Work Phone: Start: 12-09-2021 Continuous glucose m onitoring analysis i&r Manish Shea MD Work Phone: Start: 08-11-2021 Comprehensive metabolic panel Manish Shea MD Work Phone: Start: 08-11-2021 PATIENT FASTING? Manish Shea MD Work Phone: Start: 08-11-2021 Urine albumin quantitative Manish Shea MD Work Phone: Start: 06-02-2021 Gluc bld gluc mntr d ev cleared fda spec home use Kavita Hardeep JIMENEZ Work Phone: Start: 05-18-2021 FQHC visit, estab pt Ca aliciae Hardeep JIMENEZ Work Phone: Start: 05-18-2021 Gluc bld gluc mntr d ev cleared fda spec home use Kavita Bryantdejan JIMENEZ Work Phone: Start: 05-18-2021 Most recent diastoli c blood pressure 80-89 mm hg Kavita Meier CNP Work Phone: Start: 05-18-2021 Most recent systolic blood press 130-139mm hg Kavita Hardeepdejan JIMENEZ Work Phone: Start: 04-21-2021 Antibody hiv-1&hiv-2 single result Kavita Bryantdejan JIMENEZ Work Phone: Start: 04-21-2021 Foot examination performed Kavita Meier CNP Work Phone: Start: 04-21-2021 FQHC visit new patient Kavita Hardeep JIMENEZ Work Phone: Start: 04-21-2021 Gluc bld gluc mntr d ev cleared fda spec home use Kavita Bryantdejan JIMENEZ Work Phone: Start: 04-21-2021 Most recent diastoli c blood pressure < 80 mm hg Kavita Hardeep OBJECTIVE C DEVELOPER Work Phone: Start: 04-21-2021 Most recent systolic blood pressure <130 mm hg Kavita Meier OBJECTIVE C DEVELOPER Work Phone: Start: 04-21-2021 Urine albumin semiquantitative Kavita Meier OBJECTIVE C DEVELOPER Work Phone: Start: 04-16-2021 End: 04-16-2021 Basic metabolic panel calcium total Roverto Barbour MD Work Phone: Start: 04-15-2021 Gluc bld gluc mntr d ev cleared fda spec home use Roverto Barbour MD Work Phone: Start: 04-15-2021 Gluc bld gluc mntr d ev cleared fda spec home use Roverto Barbour MD Work Phone: Start: 04-15-2021 Gluc bld gluc mntr d ev cleared fda spec home use Roverto Barbour MD Work Phone: Start: 04-15-2021 Gluc bld gluc mntr d ev cleared fda spec home use Roverto Barbour MD Work Phone: Start: 04-15-2021 Basic metabolic pane l calcium total Roverto Barbour MD Work Phone: Start: 04-14-2021 Gluc bld gluc mntr d ev cleared fda spec home use Roverto Barbour MD Work Phone: Start: 04-14-2021 End: 04-14-2021 Gluc bld gluc mntr dev cleared fda spec home use Roverto Barbour MD Work Phone: Start: 04-14-2021 End: 04-14-2021 Basic metabolic panel calcium total Roverto Barbour MD Work Phone: Start: 04-14-2021 End: 04-14-2021 Gluc bld gluc mntr dev cleared fda spec home use Roverto Barbour MD Work Phone: Start: 04-14-2021 Gluc bld gluc mntr d ev cleared fda spec home use Roverto Barbour MD Work Phone: Start: 04-14-2021 End: 04-14-2021 Basic metabolic panel calcium total Roverto Barbour MD Work Phone: Start: 04-14-2021 Gluc bld gluc mntr d ev cleared fda spec home use Roverto Barbour MD Work Phone: Start: 04-14-2021 End: 04-14-2021 Basic metabolic panel calcium total Roverto Barbour MD Work Phone: Start: 04-14-2021 Echo tthrc r-t 2d w/ wom-mode compl spec&colr d Roverto Barbour MD Work Phone: Start: 04-14-2021 End: 04-14-2021 Gluc bld gluc mntr dev cleared fda spec home use Roverto Barbour MD Work Phone: Start: 04-14-2021 Gluc bld gluc mntr d ev cleared fda spec home use Roverto Barbour MD Work Phone: Start: 04-14-2021 End: 04-14-2021 Basic metabolic panel calcium total Roverto Barbour MD Work Phone: Start: 04-14-2021 Gluc bld gluc mntr d ev cleared fda spec home use Roverto Barbour MD Work Phone: Start: 04-14-2021 Gluc bld gluc mntr d ev cleared fda spec home use Roverto Barbour MD Work Phone: Start: 04-14-2021 Basic metabolic pane l calcium total Roverto Barbour MD Work Phone: Start: 04-14-2021 Gluc bld gluc mntr d ev cleared fda spec home use Roverto Barbour MD Work Phone: Start: 04-13-2021 Gluc bld gluc mntr d ev cleared fda spec home use Roverto Barbour MD Work Phone: Start: 04-13-2021 Gluc bld gluc mntr d ev cleared fda spec home use Roverto Barbour MD Work Phone: Start: 04-13-2021 Ecg routine ecg w/le ast 12 lds i&r only Reji Rondon MD Work Phone: Start: 04-13-2021 COVID-19, RAPID Reji silva MD Work Phone: Start: 04-13-2021 End: 04-13-2021 Gluc bld gluc mntr dev cleared fda spec home use Reji Rondon MD Work Phone: Start: 04-13-2021 Urinalysis microscopic only Reji Rondon MD Work Phone: Start: 04-13-2021 Urnls dip stick/tabl et rgnt auto w/o microscopy Reji Rondon MD Work Phone: Start: 04-13-2021 End: 04-13-2021 Hemoglobin glycosylated a1c Roverto [facility] Work Phone: Start: 04-13-2021 Ct abdomen & pelvis w/o contrast material Reji Rondon MD Work Phone: Start: 02-11-2020 Ct abdomen & pelvis w/o contrast material [employer] Start: 02-11-2020 Basic metabolic pane l calcium total [facility]EE [employer] Start: 02-11-2020 Blood count complete auto&auto difrntl wbc [facility] Start: 02-11-2020 Culture bacterial qu anttative colony count urine [facility] [employer] Start: 02-11-2020 Urnls dip stick/tabl et reagent auto microscopy [facility] Start: 02-11-2020 Ct abdomen & pelvis w/o contrast material [facility]ee W [employer] Work Phone: Start: 02-11-2020 Basic metabolic pane l calcium total Vee W [employer] Work Phone: Start: 02-11-2020 Blood count complete auto&auto difrntl wbc Vee W [employer]ell Work Phone: Start: 02-11-2020 Urnls dip stick/tabl et reagent auto microscopy Vee W [employer]ell Work Phone: Start: 10-23-2018 Microscopic observat ion [Identifier] in Cervix by Cyto stain Reji Rondon MD Work Phone: Plan of Treatment Date Care Activity Detail Author Start: 10-24-2023 Screening for malignant neoplasm of cervix Cervical cancer screen [place], [place] Start: 07-04-2023 Lipid panel Lipids [facility] Start: 07-04-2023 Urine screening for protein Diabetic microalbuminuria test [facility] Start: 03-29-2023 Lipid panel Lipids [facility] Start: 03-29-2023 Urine screening for protein Diabetic microalbuminuria test [facility] Start: 10-08-2022 Creatinine measurement Creatinine monitoring [facility] Start: 10-08-2022 Lipid panel [facility] Start: 10-08-2022 Potassium monitoring Potassium monitoring [facility] Start: 10-08-2022 Urine screening for protein Diabetic microalbuminuria test [facility] Start: 10-02-2022 Hemoglobin A1c measurement A1C test (Diabetic or Prediabetic) [facility] Start: 07-07-2022 End: 07-07-2022 Patient encounter procedure 07/07/2022 Office Visit Endocrinology, Diabetes & Metabolism Manish Shea MD [address] [place] [address] [facility] Endocrinology Start: 06-28-2022 Hemoglobin A1c measurement A1C test (Diabetic or Prediabetic) [facility] Start: 04-16-2022 Creatinine measurement Creatinine monitoring [facility] Start: 04-16-2022 Potassium monitoring Potassium monitoring [facility] Start: 04-07-2022 End: 04-07-2022 Patient encounter procedure 04/07/2022 Office Visit Endocrinology, Diabetes & Metabolism Manish Shea MD [address] [place] [address] [facility] Endocrinology Start: 03-17-2022 Influenza vaccination [facility] Nelson m Start: 02-14-2022 Influenza vaccination Flu vaccine (#1) [facility] Start: 02-03-2022 End: 02-03-2022 Patient encounter procedure 02/03/2022 Office Visit Endocrinology, Diabetes & Metabolism Manish Shea MD [address] [place] [address] [facility]ocr[facility] Start: 01-08-2022 Hemoglobin A1c measurement A1C test (Diabetic or Prediabetic) [facility] Start: 12-09-2021 End: 12-09-2021 Patient encounter procedure 12/09/2021 Office Visit Endocrinology, Diabetes & Metabolism Manish Shea MD [address] [place] [address] [facility]ology Start: 10-28-2021 End: 10-28-2022 CORTISOL CORTISOL Lab Routine Durham syndrome Expected: 10/28/2021, Expires: 10/28/2022 [facility] Comment on above: Expected: 10/28/2021, Expires: Start: 10-23-2021 Screening for malignant neoplasm of cervix [facility] Start: 07-14-2021 Hemoglobin A1c measurement A1C test (Diabetic or Prediabetic) [facility] Start: 07-02-2021 Other Diagnostic Test: [facility] Start: 06-30-2021 FQHC visit, estab pt Medical Established Patient [facility] Work Phone: Start: 06-02-2021 FQHC visit, estab pt Medical Established Patient [facility] Work Phone: Start: 05-21-2021 Cardiovascular Stress Test (64224) [facility] Start: 05-05-2021 FQHC visit, estab pt Medical Established Patient [facility] Work Phone: Start: 04-23-2021 End: 04-23-2021 Patient encounter procedure 04/23/2021 Office Visit Urology Mason Monterroso MD [address], [address] [place] [address] [facility] UR[facility] Start: 04-22-2021 [facility] Start: 04-21-2021 Endocrinology [facility] Work Phone: Comment on above: Note: Please make a referral to:[facility] Start: 03-17-2021 Influenza vaccination Flu vaccine (#1) [facility] Start: 02-24-2021 Screening for malignant neoplasm of cervix HPV (without or with Pap) [facility] Start: 03-17-2020 Influenza vaccination Flu vaccine (#1) [place] Start: 03-04-2020 End: 03-04-2020 Office Visit 03/04/2020 Office Visit General Surgery Robyn Coronado I, DO [address] [facility] [facility] [address] [facility] [address] [place] [id number] [facility] SURGERY [facility] of [facility] Start: 10-18-2019 HbA1c (Bld) [Mass fraction] A1C test (Diabetic or Prediabetic) [place] Start: 06-16-2019 Diabetic microalbuminuria test Diabetic microalbuminuria test [place] Start: 06-16-2019 Lipid panel Lipid screen [facility] Start: 06-16-2019 Urine screening for protein Diabetic microalbuminuria test [facility] Start: 02-28-2018 Diabetic foot examination Diabetic foot exam [facility] Start: 01-04-2018 Screening for malignant neoplasm of breast Breast cancer screen [facility] Start: 01-04-2018 Screening for malignant neoplasm of colon Colon cancer screen colonoscopy [place], [place] Start: 01-04-2018 Screening for malignant neoplasm of lung Low dose CT lung screening [facility] Start: 01-04-2018 Shingles Vaccine (1 of 2) Shingles Vaccine (1 of 2) [facility] Start: 01-04-2018 Zoster vaccine hzv live for subcutaneous use ZOSTER (SHINGLES) VACCINE (1 of 2) [facility] Start: 10-15-2014 Diabetic retinal exam Diabetic retinal exam [facility] Start: 01-04-2013 Colonoscopy [facility] Start: 01-04-2013 Screening for malignant neoplasm of colon [facility] Start: 2008 Fasting lipid profile LIPID SCREENING [facility] [employer] [facility] Start: 2008 Lipid panel LIPID SCREENING [facility] Start: 2008 Screening for malignant neoplasm of breast MAMMOGRAM SCREENING DISCUSSION [facility] Start: 2008 Screening mammography MAMMOGRAM SCREENING DISCUSSION [facility] Start: 01-04-1989 Screening for malignant neoplasm of cervix CERVICAL CANCER SCREENING DISCUSSION [facility] Start: 01-04-1987 DTaP/Tdap/Td vaccine (1 - Tdap) DTaP/Tdap/Td vaccine (1 - Tdap) [facility] Start: 01-04-1987 Hepatitis B vaccine (1 of 3 - Risk 3-dose series) Hepatitis B vaccine (1 of 3 - Risk 3-dose series) [facility] Start: 01-04-1987 Third diphtheria, tetanus and acellular pertussis (DTaP) vaccination TDAP (ADULT) [facility] Start: 01-04-1986 Tetanus vaccination TETANUS [facility] Start: 01-04-1983 HIV screening HIV SCREENING DISCUSSION [facility] Start: 1980 COVID-19 Vaccine (1) COVID-19 Vaccine (1) [facility] [employer] Phone: Start: 1980 Depression Screen Depression Screen [facility] Start: 01-04-1974 Pneumococcal 0-64 years Vaccine (1 - PCV) Pneumococcal 0-64 years Vaccine (1 - PCV) [facility] Start: 01-04-1974 Pneumococcal 0-64 years Vaccine (1 of 1 - PPSV23) Pneumococcal 0-64 years Vaccine (1 of 1 - PPSV23) [place], [place] Start: 01-04-1974 Pneumococcal 0-64 years Vaccine (1 of 2 - PPSV23) Pneumococcal 0-64 years Vaccine (1 of 2 - PPSV23) [facility] Start: 01-04-1973 COVID-19 VACCINE (#1) COVID-19 VACCINE (#1) [facility] Start: 01-04-1973 COVID-19 Vaccine (1) COVID-19 Vaccine (1) [facility] Start: 1970 COVID-19 VACCINE (#1) COVID-19 VACCINE (#1) [facility] Start: 1970 Hepatitis C antibody, confirmatory test HEPATITIS C VIRUS SCREENING [facility] Start: 1970 Hepatitis C screening HEPATITIS C VIRUS SCREENING [facility] Start: 1970 Tetanus vaccination TETANUS [facility] End: 08-11-2021 C-Peptide [facility] Work Phone: Comment on above: Once for 1 Occurrences starting 08/11/19 22 until 08/11/2021 C-PEPTIDE C-PEPTIDE Lab Ro utine Uncontrolled type 2 diabetes mellitus with hyperglycemia Ordered: 02/03/2022 [employer] Comment on above: Ordered: 02/03/2022 End: 04-14-2021 Clostridium Difficile Toxin/Antigen Clostridium Difficile Toxin/Antigen Microbiology Routine 48 HRS for 48 Hours starting 04/14/2021 until 04/14/2021 [employer] Phone: Comment on above: 48 HRS for 48 Hours starting 03/18 until 04/14/2021 Complete blood count with white cell differential, automated CBC, EDIF, PLATELET Lab Routine Uncontrolled type 2 diabetes mellitus with hyperglycemia Ordered: 02/03/2022 [employer] Comment on above: Ordered: 02/03/2022 Comprehensive metabo lic 2000 panel - Serum or Plasma COMPREHENSIVE METABOLIC PANEL Lab Routine Uncontrolled type 2 diabetes mellitus with hyperglycemia Ordered: 02/03/2022 [employer] Comment on above: Ordered: 02/03/2022 End: 02-11-2020 Culture, Urine Culture, Urine Microbiology Routine Renal colic 1 Occurrences starting 02/11/2020 until 02/11/2020 [facility] [facility] [employer] Comment on above: 1 Occurrences starting 02/11/2020 until 02/11/2020 Culture, Urine Culture, Urine Microbiology Routine Renal colic 02/11/2020 9:20 AM EDT [facility] [place] End: 02-22-2022 Culture, Urine [facility] [employer] Phone: Comment on above: 1 Occurrences starting 02/22/2022 until 02/22/2022 Glucose [Mass/volume ] in Serum or Plasma [employer] Phone: Comment on above: 4X Daily (AC & HS) until discontinued st arting 04/14/2021 As Needed until disc ontinued starting 04/14/2021 Hemoglobin A1c/Hemoglobin.total in Blood HEMOGLOBIN A1C Lab Routine Uncontrolled type 2 diabetes mellitus with hyperglycemia Ordered: 02/03/2022 [employer] Comment on above: Ordered: 02/03/2022 INSULIN INSULIN Lab Rout ine Uncontrolled type 2 diabetes mellitus with hyperglycemia Ordered: 02/03/2022 [employer] Comment on above: Ordered: 02/03/2022 End: 08-11-2021 Lipid panel [employer] Phone: Comment on above: Once for 1 Occurrences starting 08/11/19 until 08/11/2021 LIPID PANEL W CALCUL ATED LDL LIPID PANEL W CALCULATED LDL Lab Routine Uncontrolled type 2 diabetes mellitus with hyperglycemia Ordered: 02/03/2022 [employer] Comment on above: Ordered: 02/03/2022 End: 03-29-2022 Microalbumin, Ur [facility] [employer] Phone: Comment on above: Once for 1 Occurrences starting 03/29/20 until 03/29/2022 MICROALBUMIN/CREATIN INE RATIO MICROALBUMIN/CREATININE RATIO Fluids Routine Uncontrolled type 2 diabetes mellitus with hyperglycemia Ordered: 02/03/2022 [employer] Comment on above: Ordered: 02/03/2022 Oxygen therapy [[facility] Data Set] Initiate Oxygen Therapy Protocol Respiratory Care Routine Daily until discontinued starting 04/13/2021 [employer] Phone: Comment on above: Daily until discontinued starting 2020 End: 04-13-2021 pH, venous pH, venous Lab STAT One Time for 1 Occurrences starting 04/13/2021 until 04/13/2021 [employer] Phone: Comment on above: One Time for 1 Occurrences starting 03/18 until 04/13/2021 pH, venous pH, venous Lab S TAT 04/13/2021 7:35 PM EDT [employer] Phone: End: 10-10-2021 Salivary [employer] Comment on above: Once for 1 Occurrences starting 10/11/19 until 10/10/2021 Standard ECG ECG ECG STAT 12/2021 3:51 PM EST [employer] Immunizations Immunization Date Immunization Notes Care Provider Jeff francisco 12-15-2004 measles, mumps and r ubella virus vaccine [facility], [place] 02-09-2001 measles, mumps and r ubella virus vaccine [facility] [employer] [facility] Payers Date Payer Category Payer Unknown [employer] [id number] 2021-Present [address] [place] [address] [id number] 2014 Unknown [id number] 2014 Unknown [employer] [address] MEDICAID [id number] 2014-Present [phone] CLAIMS DEPARTMENT [address] [place] [address] [id number]. [id number] 1968 Unknown [id number] 2.16840.1.860392.3.579.2. 173 1968 Unknown [id number] 2.16840.1.720785.3.579.2. 173 1968 Unknown [id number] 2.16840.1.012830.3.579.2. 173 1968 Unknown [id number] 2.16.840.1.963609.3.579.2. 174 1968 Unknown [id number] 2.16840.1.077868.3.579.2. 174 1968 Unknown [id number] 2.16840.1.412492.3.579.2. 174 1968 Unknown [id number] 2.16840.1.543550.3.579.2. 174 1968 Unknown [id number] 2.16.840.1.613547.3.579.2. 174 1968 Unknown [id number] 2.16.840.1.001347.3.579.2. 174 1968 Unknown [id number] 2.16.840.1.334356.3.579.2. 174 1968 Unknown [id number] 2.16840.1.798528.3.579.2. 174 1968 Unknown [id number] 2.16.840.1.885638.3.579.2. 983 1968 Unknown [id number] 2.16.840.1.460467.3.579.2. 983 1968 Unknown [id number] 2.16.840.1.463424.3.579.2. 983 1968 Unknown [id number] 2.16.840.1.325446.3.579.2. 983 1968 Unknown [id number] 2.16.840.1.690404.3.579.2. 983 1968 Unknown [id number] 2.16.840.1.715624.3.579.2. 983 1968 Unknown [id number] 2.16.840.1.140248.3.579.2. 983 1968 Unknown [id number] 2.16.840.1.831969.3.579.2. 983 1968 Unknown [id number] 2.16.840.1.572328.3.579.2. 983 Private Health Insurance 1 - Car [employer] Advantage Medicare [id number] [id number]. [id number] Unknown 2 - Medicaid Wrap [id number] [id number]. 96074.5.10.6.3 Social History Date Type Detail Facility Start: 02-11-2020 End: 02-22-2022 Tobacco smoking status NHIS Former smoker [facility] [employer] End: 07-25-2017 History of tobacco use Current smoker J[facility] Mar[facility] End: 07-25-2017 History of tobacco use [facility] Start: 02-11-2020 End: 02-22-2022 Cigarettes smoked current (pack per day) - Reported [facility] Start: 02-11-2020 End: 02-22-2022 Tobacco use and exposure Never used [facility] Start: 02-11-2020 End: 07-05-2022 Alcohol intake Current non-drinker of alcohol (finding) [facility] Start: 04-21-2016 [facility] Start: 1970 Sex Assigned At Not on file M [facility]ana [facility] Start: 01-24-2022 End: 07-05-2022 Exposure to SARS-CoV-2 (event) Not sure Yue [facility] JANELL Assertion Currently not se xually active (finding) [facility] Work Phone: Assertion Gender identity finding (finding) [facility] Work Phone: Assertion Finding of sexua l orientation (finding) [facility] Work Phone: Tobacco smoking status Unknown if ever smoked [facility] Work Phone: Start: 05-10-2018 Assertion Quit date 05/10/2018 He alth [facility] Work Phone: Start: 08-03-2021 Tobacco smoking status NHIS Never smoked tobacco [facility] Start: 10-28-2021 End: 06-21-2022 Alcohol intake Ex-drinker (finding) [facility] NEGATED: Highlighted row Assertion Current drinker of alcohol (finding) [facility] Work Phone: NEGATED: Highlighted row Assertion Finding relating to drug misuse behavior (finding) [facility] Work Phone: NEGATED: Highlighted row Assertion Exposure to pollution (event) [facility] Work Phone: NEGATED: Highlighted row Assertion Not a current tobacco user [facility] Work Phone: NEGATED: Highlighted row Assertion Tobacco user (finding) [facility] Work Phone: Medical Equipment Procedure Code Equipment Code Equipment Origin al Text Equipment Identifier Dates 1 each by Does n ot apply route daily [id number] Start: 10-23-2018 End: 04-16-2021 1 each by Does n ot apply route 5 times daily Dx: IDDM. 5 injections daily. [id number] Start: 11-13-2017 End: 04-16-2021 Test 4 times a d ay & as needed for symptoms of irregular blood glucose. Dispense sufficient amount for indicated testing frequency plus additional to accommodate PRN testing needs. [id number] Start: 04-16-2021 1 each by Does n ot apply route 4 times daily [id number] Start: 04-16-2021 Injection 5 time s a day. [id number] Start: 04-16-2021 [place] 32G X 5 MM Miscellaneous [id number] Start: 04-21-2021 Mental Status Date Assessment Result Facility Cognitive function Cognitive fun ctioning was normal Cognitive function finding (finding) [facility] Work Phone: Clinical Notes 04-15-2021 to 06-22-2022 Certification - Cecilio Saucedo MD - 06/22/2022 6:10 PM ESTNursing Notes - Alison Doherty RN - 06/22/2022 6:06 PM ESTNursing Notes - Alison Doherty RN - 06/22/2022 5:00 PM EST Note Date & Type Note Facility 06-22-2022 Miscellaneous Notes Formattin g of this note might be different from the original. I certify that this patient does not requires inpatient services at this time. Plans for post hospitalization care will be discharge to home. Patient wheeled out by CASING GRADER Patient educated on discharge instructions and medications Patient eating dinner prior to leaving Notified [place] SAP SD ANALYST of CO2 - 20 K - 3.7 Phos - 2.0 Glucose - 190 OK to discharge per SAP SD ANALYST Assessment unchanged unless otherwise charted Call light within reach No denies pain Patient is up in the chair Waiting of 4pm renal panel to result to determine is patient is eligible for discharge Assessment unchanged unless otherwise charted Call light within reach No denies pain Associated Problem(s): Mixed hyperlipidemia Resume home medications Follow-up with PCP after discharge Associated Problem(s): Metabolic acidosis Secondary to DKA Volume expand Trend labs Associated Problem(s): Medical non-compliance Importance of medical compliance discussed with patient Associated Problem(s): Electrolyte imbalance Replace potassium and phosphorus Trend labs Associated Problem(s): DKA (diabetic ketoacidosis) Resolving - Gap closing Volume expand Serial labs Associated Problem(s): Diabetes mellitus, type 2 Recent A1c 12.3 Follows with Endocrinology Resume home medications Accuchecks with SSI 2nd attempt to page Dr Saucedo Attempt to page Dr Saucedo for critical labs Critical CO2 <7 reported to Rickey Taveras CNP new order to increase cont NS to 150 mL/hr and give 2L LR bolus. Faxed to pharmacy documented in this encounter [facility] 06-22-2022 Note Formatting of this n ote might be different from the original. I certify that this patient does not requires inpatient services at this time. Plans for post hospitalization care will be discharge to home. [facility] Work Phone: 06-22-2022 Note Formatting of this n ote might be different from the original. Patient wheeled out by CASING GRADER [facility] 06-22-2022 Note Formatting of this n ote might be different from the original. Patient educated on discharge instructions and medications Patient eating dinner prior to leaving [facility] 06-22-2022 Note Formatting of this n ote might be different from the original. Notified Darcy SAP SD ANALYST of CO2 - 20 K - 3.7 Phos - 2.0 Glucose - 190 OK to discharge per SAP SD ANALYST [facility] 06-22-2022 Note Formatting of this n ote might be different from the original. Assessment unchanged unless otherwise charted Call light within reach No denies pain Patient is up in the chair Waiting of 4pm renal panel to result to determine is patient is eligible for discharge [facility] 06-22-2022 Note Formatting of this n ote might be different from the original. 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 Yes Employment/Financial Concerns no Source Of Income social security Financial Concerns none Food Insecurity In the past 12 months, were you worried about food running out before you are able to get more? No In the past 12 months, has food run out, and you didn't have money to get more? No Cognitive/Perceptual/Developmen pablo Current Mental Status/Cognitive Functioning no deficits noted Recent Changes in Mental Status/Cognitive Functioning no changes Developmental Stage Stage 7 (35-65 years/Middle Adulthood) Generativity vs. Stagnation Cognitive/Perceptual/Developmen pablo Comments pt is alert and oriented x4 Abuse Screen Do You Feel Unsafe at Home, Work or School? no Has Anyone Ever Threatened to Hurt You, Your Children or Your Pets? no Does Anyone Try to Keep You From Having Contact With Others or Doing Things Outside Your Home? no Emotional/Psychological Affect no deficits noted Mood congruent to situation Verbal Skills no deficits noted Current Interpersonal Conduct/Behavior appropriate to situation Thought Process Alterations no deficits noted Mental Health Suicide Risk Current Suicidal Ideation no Homicide Risk Feels Like Hurting Others no Referral Information Referral Source admission list;case finding;high risk screening;physician Chart review completed. Patient Anu Gonzalez is a 52 year old female who presented to [facility] on June 21 with complaints of dizziness and weakness since Monday. Patient was admitted to [facility] ICU for DKA on an insulin drip. Visit with patient Anu Gonzalez and daughter at bedside. Patient was laying flat, awake in bed and agreeable to talk with this HARDWOOD FLOOR REFINISHER. Anu states that she is current with Dr. Montalvo for Endocrinology. States she is currently taking Trulicity at home. Was on a insulin regimen approximately 6 months ago, states, it didn't work, my sugars were high and I gained 30 pounds, . States that she stopped taking all diabetic medications, lost the 30 pounds and has been watching her diet closely upon until following off the wagon on Thankgsiving, . Recently followed up with Dr. Montalvo and was given options of restarting insulin, Trulicity, and/or a referral to bariatric surgery. She agreed to the Trulicity and a referral for bariatric surgery. States after much thought, she is not willing to pursue bariatric surgery but also does not want to do an insulin regimen. She states that she checks her sugars with a Freestyle Titus but does not think that it is working properly because she has not been getting reads . Asked if she had a glucometer at home to use instead. She does not. Patient then asks to be sent home with the medication that she is getting now to bring her sugar down. Advised that it is insulin. She shakes her head no and said she will not take it at home. She plans to follow up with Dr. Montalvo at discharge to explore better blood sugar control and options. [employer] Counselor provided glucometer for home going. documented in this encounter [facility] 06-22-2022 Hospital course Narrative Discharge Summary Name: Anu Gonzalez Age: 52 y.o. Birthday: 1970 Admit Date: 06/21/2022 2:16 PM Discharge Date: 06/22/2022 Brief Summary of Hospital Course: The patient is a 52-year-old female presented to the emergency department for evaluation of dizziness and fatigue. Patient reports that this started last weekend. She reports that she has had poor oral intake since then. She therefore came to the emergency department for evaluation. Routine evaluation was treated with an emergency department. Laboratory studies were consistent with DKA. The patient was started on insulin drip and admitted to the medical floor for overnight observation. Details as noted below: Diabetes mellitus, type 2 Recent A1c 12.3 Follows with Endocrinology Resume home medications Accuchecks with SSI DKA (diabetic ketoacidosis) Resolved Volume expanded S/p Insulin gtt Electrolyte imbalance Replaced potassium and phosphorus Medical non-compliance Importance of medical compliance discussed with patient Metabolic acidosis Secondary to DKA Volume expanded Resolving Mixed hyperlipidemia Resume home medications Follow-up with PCP after discharge Code Status: Full Code Consults: None Discharge Diagnosis: Principal Problem: DKA (diabetic ketoacidosis) Active Problems: Diabetes mellitus, type 2 Mixed hyperlipidemia Metabolic acidosis Electrolyte imbalance Medical non-compliance Discharge Vital Signs: Blood pressure 96/68, pulse 110, temperature 99.2 F (37.3 C), temperature source Temporal, resp. rate 24, height 1.702 m (5' 7 ), weight 86.2 kg (190 lb), SpO2 99 %. PHYSICAL EXAM: General: Patient resting comfortably. Awake. No acute distress. HEENT: Normalcephalic, atraumatic. Pupils equal, round, reactive, to light and accomodation B/L. Ears normal, no erythema or drainage. Bilateral nares patent without obvious drainage. Oral mucosa moist, pink, intact without ulcers or lesions. Neck: No JVD, no thyromegaly, no anterior or posterior cervical lymphadenopathy. Cardiovascular: Regular rate and rhythm, without murmurs, rubs, or gallops. Respiratory: Bilateral Upper and Lower Lobes anterior and posteriorly without wheezes, rales, or rhonchi Gastrointestinal: Soft, rounded, non-tender. Bowel sounds present x4 quadrants. No rebound. No organomegaly or masses noted upon deep palpation. Musculoskeletal: No edema, clubbing or cyanosis, pulses palpable 2+ distally. Muscle strength and tone symmetrical. Skin: Warm, Dry, Intact. No obvious rashes or lesions noted. Neuro: Cranial nerves 2-12 grossly intact upon seated examination. No focal defiects noted. Physiatric: Patient awake, alert, orientedx3. Mood and affect appropriate. Discharge Labs: Lab Results Component Value Date WBC 6.9 06/22/2022 HGB 13.4 06/22/2022 HCT 39.8 06/22/2022 PLATELET 319 06/22/2022 MCV 86.4 06/22/2022 Lab Results Component Value Date SODIUM 135 (L) 06/22/2022 POTASSIUM 3.1 (L) 06/22/2022 CHLORIDE 108 (H) 06/22/2022 CO2 15 (LL) 06/22/2022 BUN 11 06/22/2022 CREATSERUM 0.37 (L) 06/22/2022 GLUCOSE 340 (H) 06/22/2022 Lab Results Component Value Date ALT 23 06/21/2022 AST 28 06/21/2022 ALKPHOS 175 (H) 06/21/2022 BILITOTAL 0.7 06/21/2022 Discharge Medications: Medication List for when you go home CONTINUE taking these medications Aspirin Low Dose [address] tablet Take 81 mg by mouth daily. Generic drug: Aspirin FreeStyle Titus 2 [place] Systm NISH 1 Each by Unknown route every 4 hours. For diagnoses: Uncontrolled type 2 diabetes mellitus with hyperglycemia FreeStyle Titus 2 Sensor Systm MISC 1 Each by Unknown route every 14 days. For diagnoses: Uncontrolled type 2 diabetes mellitus with hyperglycemia glipiZIDE 10 MG tablet regular release Take 1 tablet by mouth 2 times daily. Commonly known as: GLUCOTROL For diagnoses: Uncontrolled type 2 diabetes mellitus with hyperglycemia Gvoke HypoPen 2-Pack 1 MG/0.2ML SOAJ Inject 1 mg under the skin As directed. To be used as directed for severe hypoglycemia. Generic drug: Glucagon metFORMIN-XR 500 MG tab XL Take 2 tablets by mouth 2 times daily. Commonly known as: GLUCOPHAGE-XR For diagnoses: Uncontrolled type 2 diabetes mellitus with hyperglycemia pioglitazone 30 MG TABS Take 1 tablet by mouth daily. Commonly known as: ACTOS For diagnoses: Uncontrolled type 2 diabetes mellitus with hyperglycemia Trulicity 1.5 MG/0.5ML SOPN injection Inject 0.5 mL under the skin once a week. Generic drug: Dulaglutide Discharge Activity: Resume pre-hospital activities as tolerated Discharge Diet: Diabetic Discharge Follow-up: Kavita Meier CNP [address] [place] [id number] Call Post-Hospital Follow Up Manish Shea MD [address] [facility] [id number] Call Post-Hospital Follow Up Discharge Disposition: Patient will be discharged in stable condition. Discharge Time: Including assessment, planning, and medication reconciliation was 13 min of OBJECTIVE C DEVELOPER time. Brijesh Taveras CNP completing Discharge Summary for Dr. Saucedo Please note Portions of this note utilized [employer] dictation software, please excuse any typographical or grammatical errors Associated attestation - Cecilio Saucedo MD - 06/22/2022 8:47 PM EST I have independently interviewed and examined the patient. I have discussed nj elements of the care plan with the SAP SD ANALYST and I agree with the findings and care plan as stated above. documented in this encounter [facility] 06-22-2022 History and physical note History and Physical Examination 06/21/2022 2:16 PM Chief Complaint Patient presents with Dizziness Fatigue Patient to the ED for c/o dizziness and weakness since Monday. States she hasn't been eating and she is a diabetic. BS was 376. History of Present Illness: The patient is a 52-year-old female presented to the emergency department for evaluation of dizziness and fatigue. Patient reports that this started last weekend. She reports that she has had poor oral intake since then. She therefore came to the emergency department for evaluation. Routine evaluation was treated with an emergency department. Laboratory studies were consistent with DKA. The patient was started on insulin drip and admitted to the medical floor for overnight observation. The patient states she had not been taking her insulin or diabetic medications as prescribed. She also states that on she did not follow any sort of diabetic diet. It is noted that the patient A1c 2 months ago was 12.3; she does admit to noncompliance with her diabetic diet as well as medications from time to time. She denies any headaches or blurred visions. She denies any nausea or vomiting. She denies any chest pain or shortness of breath. No fevers or chills. No skin rash or lesions. No dysuria. She is currently resting in the bed in no acute distress at time. Past Medical History: Diagnosis Date Diabetes mellitus Past Surgical History: Procedure Laterality Date OTHER SURGICAL HPV Social History Tobacco Use Smoking status: Never Smokeless tobacco: Never Substance Use Topics Alcohol use: Not Currently Family History Problem Relation Age of Onset Other - Specify Father Medications Prior to Admission Medication Sig Dispense Refill Last Dose Aspirin Low Dose [address] tablet Take 81 mg by mouth daily. Past Week Continuous Blood Gluc Air Conditioning Technician (FreeStyle Titus 2 [place] Systm) Device 1 Each by Unknown route every 4 hours. 1 Each 0 Past Week Continuous Blood Gluc Sensor (FreeStyle Titus 2 Sensor Systm) Misc 1 Each by Unknown route every 14 days. 2 Each 11 Past Week Dulaglutide (Trulicity) 1.5 MG/0.5ML Solution Pen-injector injection Inject 0.5 mL under the skin once a week. 2 mL 3 Past Week glipiZIDE 10 MG tablet regular release Take 1 tablet by mouth 2 times daily. 60 tablet 11 Past Week metFORMIN-XR 500 MG Tab SR 24 HR Take 2 tablets by mouth 2 times daily. 120 tablet 3 Past Week pioglitazone 30 MG tablet Take 1 tablet by mouth daily. 30 tablet 3 Past Week Glucagon (Gvoke HypoPen 2-Pack) 1 MG/0.2ML Solution Auto-injector Inject 1 mg under the skin As directed. To be used as directed for severe hypoglycemia. 0.4 mL 1 Allergies Allergen Reactions Penicillins Pravastatin Hives Review of Systems: Ten systems reviewed and found to be negative unless otherwise stated in the history and present illness. PHYSICAL EXAM: Patient Vitals for the past 8 hrs: BP Temp Temp src Pulse Resp 06/22/22 1030 -- -- -- 110 24 06/22/22 1000 -- -- -- 109 20 06/22/22 0930 -- -- -- 103 24 06/22/22 0900 -- -- -- 105 (!) 26 06/22/22 0731 -- 99.2 F (37.3 C) Temporal -- -- 06/22/22 0730 96/68 -- -- 110 (!) 29 06/22/22 0525 81/53 -- -- 104 (!) 28 06/22/22 0519 -- 99 F (37.2 C) Temporal -- -- General: Patient resting comfortably. Awake. No acute distress. HEENT: Normalcephalic, atraumatic. Pupils equal, round, reactive, to light and accomodation B/L. Ears normal, no erythema or drainage. Bilateral nares patent without obvious drainage. Oral mucosa moist, pink, intact without ulcers or lesions. Neck: No JVD, no thyromegaly, no anterior or posterior cervical lymphadenopathy. Cardiovascular: Regular rate and rhythm, without murmurs, rubs, or gallops. Respiratory: Bilateral Upper and Lower Lobes anterior and posteriorly without wheezes, rales, or rhonchi Gastrointestinal: Soft, rounded, non-tender. Bowel sounds present x4 quadrants. No rebound. No organomegaly or masses noted upon deep palpation. Musculoskeletal: No edema, clubbing or cyanosis, pulses palpable 2+ distally. Muscle strength and tone symmetrical. Skin: Warm, Dry, Intact. No obvious rashes or lesions noted. Neuro: Cranial nerves 2-12 grossly intact upon seated examination. No focal defiects noted. Physiatric: Patient awake, alert, orientedx3. Mood and affect appropriate. Diagnostics: Admission on 06/21/2022 Component Date Value WBC (WHITE BLOOD COUNT) 06/21/2022 10.9 RBC 06/21/2022 5.88 (H) HEMOGLOBIN (HGB) 06/21/2022 17.3 (H) HEMATOCRIT (HCT) 06/21/2022 52.8 (H) MEAN CELL VOLUME 06/21/2022 89.7 Mean Cell HGB 06/21/2022 29.4 MEAN CELL HGB CONCENTRAT* 06/21/2022 32.8 RBC DISTRIBUTION 06/21/2022 14.4 PLATELET COUNT 06/21/2022 390 MEAN PLATELET VOLUME 06/21/2022 8.4 DIFFERENTIAL TYPE 06/21/2022 AUTO DIFF NEUTROPHILS 06/21/2022 84.0 (H) LYMPHOCYTE 06/21/2022 9.8 (L) MONOCYTE % 06/21/2022 5.5 EOSINOPHIL % 06/21/2022 0.0 BASOPHIL % 06/21/2022 0.7 Absolute Neutrophil Count 06/21/2022 9.1 (H) LYMPHOCYTES, ABSOLUTE 06/21/2022 1.1 (L) MONOCYTES, ABSOLUTE 06/21/2022 0.6 ABSOLUTE EOSINOPHIL COUNT 06/21/2022 0.0 ABSOLUTE BASOPHIL COUNT 06/21/2022 0.1 GLUCOSE 06/21/2022 428 (HH) BUN 06/21/2022 15 CREATININE SERUM 06/21/2022 0.72 SODIUM 06/21/2022 131 (L) POTASSIUM 06/21/2022 4.7 CHLORIDE 06/21/2022 102 CALCIUM 06/21/2022 10.4 (H) PROTEIN, TOTAL 06/21/2022 9.3 (H) Albumin 06/21/2022 4.8 BILIRUBIN, TOTAL 06/21/2022 0.7 AST 06/21/2022 28 ALKALINE PHOSPHATASE 06/21/2022 175 (H) CARBON DIOXIDE (CO2) 06/21/2022 <7 (LL) A/G Ratio 06/21/2022 1.1 (L) ALT 06/21/2022 23 ESTIMATED GFR, NON AFRIC* 06/21/2022 90 ESTIMATED GFR, A* 06/21/2022 109 GFR COMMENT 06/21/2022 Average GFR for 50-59 years old = 93. TROPONIN I, HIGH SENSITI* 06/21/2022 9 INFLUENZA A 06/21/2022 NEGATIVE INFLUENZA B 06/21/2022 NEGATIVE SARS COV 2 RNA, QL REAL * 06/21/2022 NOT DETECTED NARRATIVE -1 06/21/2022 This test was performed using isothermal ESPERANZA and has been approved as Emergency Use Authorization (EUA) for the qualitative detection [id number] nucleic acid. COLOR, URINE 06/21/2022 YELLOW APPEARANCE, URINE 06/21/2022 CLEAR Specific [place], Urine 06/21/2022 >1.030 (H) PH URINE 06/21/2022 5.5 PROTEIN, URINE 06/21/2022 100 (A) GLUCOSE, URINE 06/21/2022 500 (A) KETONES, URINE 06/21/2022 >160 (A) BILIRUBIN, URINE 06/21/2022 SMALL (A) BLOOD, URINE DIPSTICK 06/21/2022 SMALL (A) NITRITES, URINE 06/21/2022 NEGATIVE UROBILINOGEN, URINE 06/21/2022 0.2 LEUKOCYTE ESTERASE, URINE 06/21/2022 NEGATIVE pH Venous 06/21/2022 7.10 (LL) pCO2 06/21/2022 21 (L) PO2,VENOUS OR CAP 06/21/2022 39 HCO3 06/21/2022 6.5 (L) BASE DEFICIT 06/21/2022 21.3 (H) CTHB 06/21/2022 17.1 % O2 HGB 06/21/2022 68.0 SO2,VENOUS OR CAP 06/21/2022 68.4 Carboxyhemoglobin 06/21/2022 0.6 MetHB Arterial 06/21/2022 0.0 BETA HYDROXYBUTYRATE 06/21/2022 9.44 (H) WBC, URINE 06/21/2022 1 TO 5 RBC, URINE 06/21/2022 1 TO 5 Epithelial Cells UA 06/21/2022 1 TO 5 Mucus 06/21/2022 NEGATIVE BACTERIA, URINE 06/21/2022 NEGATIVE CRYSTALS, URINE 06/21/2022 NONE CASTS, URINE 06/21/2022 NONE COMMENT, URINE 06/21/2022 CULTURE CRITERIA NOT MET, NO CULTURE PERFORMED. MAGNESIUM 06/21/2022 2.1 GLUCOSE 06/21/2022 369 (H) BUN 06/21/2022 16 CREATININE SERUM 06/21/2022 0.66 (L) SODIUM 06/21/2022 133 (L) POTASSIUM 06/21/2022 4.2 CHLORIDE 06/21/2022 104 CARBON DIOXIDE (CO2) 06/21/2022 <7 (LL) Albumin 06/21/2022 4.4 CALCIUM 06/21/2022 9.7 PHOSPHORUS 06/21/2022 3.5 ESTIMATED GFR, NON AFRIC* 06/21/2022 99 ESTIMATED GFR, A* 06/21/2022 120 GFR COMMENT 06/21/2022 Average GFR for 50-59 years old = 93. SCREEN: MRSA 06/21/2022 NOT DETECTED STAPHYOCOCCUS AUREUS BY * 06/21/2022 DETECTED (A) GLUCOSE, POINT OF CARE 06/21/2022 400 (H) Sport Shoe Spike Assembler 06/21/2022 205,067 MAGNESIUM 06/22/2022 2.0 GLUCOSE 06/22/2022 234 (H) BUN 06/22/2022 12 CREATININE SERUM 06/22/2022 0.44 (L) SODIUM 06/22/2022 135 (L) POTASSIUM 06/22/2022 3.4 (L) CHLORIDE 06/22/2022 111 (H) CARBON DIOXIDE (CO2) 06/22/2022 9 (LL) Albumin 06/22/2022 3.4 (L) CALCIUM 06/22/2022 8.8 PHOSPHORUS 06/22/2022 1.7 (LL) ESTIMATED GFR, NON AFRIC* 06/22/2022 158 ESTIMATED GFR, A* 06/22/2022 192 GFR COMMENT 06/22/2022 Average GFR for 50-59 years old = 93. GLUCOSE, POINT OF CARE 06/21/2022 393 (H) Sport Shoe Spike Assembler 06/21/2022 206,278 GLUCOSE, POINT OF CARE 06/21/2022 280 (H) Sport Shoe Spike Assembler 06/21/2022 204,702 GLUCOSE, POINT OF CARE 06/21/2022 210 (H) Sport Shoe Spike Assembler 06/21/2022 204,702 GLUCOSE, POINT OF CARE 06/21/2022 175 (H) Sport Shoe Spike Assembler 06/21/2022 204,702 GLUCOSE, POINT OF CARE 06/21/2022 192 (H) Sport Shoe Spike Assembler 06/21/2022 204,702 GLUCOSE, POINT OF CARE 06/22/2022 221 (H) Sport Shoe Spike Assembler 06/22/2022 204,702 GLUCOSE, POINT OF CARE 06/22/2022 212 (H) Sport Shoe Spike Assembler 06/22/2022 204,702 GLUCOSE, POINT OF CARE 06/22/2022 214 (H) Sport Shoe Spike Assembler 06/22/2022 206,907 MAGNESIUM 06/22/2022 1.9 GLUCOSE 06/22/2022 254 (H) BUN 06/22/2022 11 CREATININE SERUM 06/22/2022 0.37 (L) SODIUM 06/22/2022 135 (L) POTASSIUM 06/22/2022 3.1 (L) CHLORIDE 06/22/2022 108 (H) CARBON DIOXIDE (CO2) 06/22/2022 15 (LL) Albumin 06/22/2022 3.4 (L) CALCIUM 06/22/2022 8.8 PHOSPHORUS 06/22/2022 1.6 (LL) ESTIMATED GFR, NON AFRIC* 06/22/2022 193 ESTIMATED GFR, A* 06/22/2022 234 GFR COMMENT 06/22/2022 Average GFR for 50-59 years old = 93. GLUCOSE, POINT OF CARE 06/22/2022 245 (H) Sport Shoe Spike Assembler 06/22/2022 204,702 GLUCOSE, POINT OF CARE 06/22/2022 242 (H) Sport Shoe Spike Assembler 06/22/2022 207,486 GLUCOSE, POINT OF CARE 06/22/2022 252 (H) Sport Shoe Spike Assembler 06/22/2022 204,702 GLUCOSE, POINT OF CARE 06/22/2022 234 (H) Sport Shoe Spike Assembler 06/22/2022 207,019 GLUCOSE, POINT OF CARE 06/22/2022 230 (H) Sport Shoe Spike Assembler 06/22/2022 207,019 WBC (WHITE BLOOD COUNT) 06/22/2022 6.9 RBC 06/22/2022 4.61 HEMOGLOBIN (HGB) 06/22/2022 13.4 HEMATOCRIT (HCT) 06/22/2022 39.8 MEAN CELL VOLUME 06/22/2022 86.4 Mean Cell HGB 06/22/2022 29.2 MEAN CELL HGB CONCENTRAT* 06/22/2022 33.8 RBC DISTRIBUTION 06/22/2022 13.7 PLATELET COUNT 06/22/2022 319 MEAN PLATELET VOLUME 06/22/2022 8.9 DIFFERENTIAL TYPE 06/22/2022 AUTO DIFF NEUTROPHILS 06/22/2022 67.8 LYMPHOCYTE 06/22/2022 19.9 (L) MONOCYTE % 06/22/2022 10.1 (H) EOSINOPHIL % 06/22/2022 0.9 BASOPHIL % 06/22/2022 1.3 Absolute Neutrophil Count 06/22/2022 4.7 LYMPHOCYTES, ABSOLUTE 06/22/2022 1.4 MONOCYTES, ABSOLUTE 06/22/2022 0.7 ABSOLUTE EOSINOPHIL COUNT 06/22/2022 0.1 ABSOLUTE BASOPHIL COUNT 06/22/2022 0.1 BETA HYDROXYBUTYRATE 06/22/2022 2.66 (H) GLUCOSE, POINT OF CARE 06/22/2022 213 (H) Sport Shoe Spike Assembler 06/22/2022 207,019 GLUCOSE, POINT OF CARE 06/22/2022 214 (H) Sport Shoe Spike Assembler 06/22/2022 207,019 GLUCOSE, POINT OF CARE 06/22/2022 340 (H) Sport Shoe Spike Assembler 06/22/2022 207,019 Impression and Plan: Principal Problem: DKA (diabetic ketoacidosis) Active Problems: Diabetes mellitus, type 2 Mixed hyperlipidemia Metabolic acidosis Electrolyte imbalance Medical non-compliance Diabetes mellitus, type 2 Recent A1c 12.3 Follows with Endocrinology Resume home medications Accuchecks with SSI DKA (diabetic ketoacidosis) Resolving - Gap closing Volume expand Serial labs Electrolyte imbalance Replace potassium and phosphorus Trend labs Medical non-compliance Importance of medical compliance discussed with patient Metabolic acidosis Secondary to DKA Volume expand Trend labs Mixed hyperlipidemia Resume home medications Follow-up with PCP after discharge Code Status: Full Code GI/DVT Prophylaxis: Protonix/Lovenox Brijesh Taveras CNP completing HPI for Dr. Saucedo 21 minutes spent of OBJECTIVE C DEVELOPER time including assessment, planning, and discussion with nursing staff and patient Please note Portions of this note utilized [employer] dictation software, please excuse any typographical or grammatical errors Associated attestation - Cecilio Saucedo MD - 06/22/2022 8:49 PM EST I have independently interviewed and examined the patient. I have discussed nj elements of the care plan with the SAP SD ANALYST and I agree with the findings and care plan as stated above. Time spent performing exam and reviewing diagnostics results, images and labs and discussing care plan with nurse practitioner and consulting physicians was 56 minutes D/w dr magana Hyperglycemia Acidosis Iv insulin drip overnigght Glc ctrl Pt feels well and wants to go home Home rx reviewed Heart rrr Lungs clear Abd soft bs+ No jaundice Will follow w pmd as outpt See [facility] 06-22-2022 Evaluation + Plan note Associated Problem(s): Mixed hyperlipidemia Resume home medications Follow-up with PCP after discharge [facility] + Plan note Associated Problem(s): Metabolic acidosis Secondary to DKA Volume expand Trend labs [facility] [employer] [facility] 06-22-2022 Evaluation + Plan note Associated Problem(s): Medical non-compliance Importance of medical compliance discussed with patient [facility] [employer] [facility] 06-22-2022 Evaluation + Plan note Associated Problem(s): Electrolyte imbalance Replace potassium and phosphorus Trend labs [facility] 06-22-2022 History and physical note History and Physical Examination 06/21/2022 2:16 PM Chief Complaint Patient presents with Dizziness Fatigue Patient to the ED for c/o dizziness and weakness since Monday. States she hasn't been eating and she is a diabetic. BS was 376. History of Present Illness: The patient is a 52-year-old female presented to the emergency department for evaluation of dizziness and fatigue. Patient reports that this started last weekend. She reports that she has had poor oral intake since then. She therefore came to the emergency department for evaluation. Routine evaluation was treated with an emergency department. Laboratory studies were consistent with DKA. The patient was started on insulin drip and admitted to the medical floor for overnight observation. The patient states she had not been taking her insulin or diabetic medications as prescribed. She also states that on she did not follow any sort of diabetic diet. It is noted that the patient A1c 2 months ago was 12.3; she does admit to noncompliance with her diabetic diet as well as medications from time to time. She denies any headaches or blurred visions. She denies any nausea or vomiting. She denies any chest pain or shortness of breath. No fevers or chills. No skin rash or lesions. No dysuria. She is currently resting in the bed in no acute distress at time. Past Medical History: Diagnosis Date Diabetes mellitus Past Surgical History: Procedure Laterality Date OTHER SURGICAL HPV Social History Tobacco Use Smoking status: Never Smokeless tobacco: Never Substance Use Topics Alcohol use: Not Currently Family History Problem Relation Age of Onset Other - Specify Father Medications Prior to Admission Medication Sig Dispense Refill Last Dose Aspirin Low Dose [address] tablet Take 81 mg by mouth daily. Past Week Continuous Blood Gluc Air Conditioning Technician (FreeStyle Titus 2 [place] Systm) Device 1 Each by Unknown route every 4 hours. 1 Each 0 Past Week Continuous Blood Gluc Sensor (FreeStyle Titus 2 Sensor Systm) Misc 1 Each by Unknown route every 14 days. 2 Each 11 Past Week Dulaglutide (Trulicity) 1.5 MG/0.5ML Solution Pen-injector injection Inject 0.5 mL under the skin once a week. 2 mL 3 Past Week glipiZIDE 10 MG tablet regular release Take 1 tablet by mouth 2 times daily. 60 tablet 11 Past Week metFORMIN-XR 500 MG Tab SR 24 HR Take 2 tablets by mouth 2 times daily. 120 tablet 3 Past Week pioglitazone 30 MG tablet Take 1 tablet by mouth daily. 30 tablet 3 Past Week Glucagon (Gvoke HypoPen 2-Pack) 1 MG/0.2ML Solution Auto-injector Inject 1 mg under the skin As directed. To be used as directed for severe hypoglycemia. 0.4 mL 1 Allergies Allergen Reactions Penicillins Pravastatin Hives Review of Systems: Ten systems reviewed and found to be negative unless otherwise stated in the history and present illness. PHYSICAL EXAM: Patient Vitals for the past 8 hrs: BP Temp Temp src Pulse Resp 06/22/22 1030 -- -- -- 110 24 06/22/22 1000 -- -- -- 109 20 06/22/22 0930 -- -- -- 103 24 06/22/22 0900 -- -- -- 105 (!) 26 06/22/22 0731 -- 99.2 F (37.3 C) Temporal -- -- 06/22/22 0730 96/68 -- -- 110 (!) 29 06/22/22 0525 81/53 -- -- 104 (!) 28 06/22/22 0519 -- 99 F (37.2 C) Temporal -- -- General: Patient resting comfortably. Awake. No acute distress. HEENT: Normalcephalic, atraumatic. Pupils equal, round, reactive, to light and accomodation B/L. Ears normal, no erythema or drainage. Bilateral nares patent without obvious drainage. Oral mucosa moist, pink, intact without ulcers or lesions. Neck: No JVD, no thyromegaly, no anterior or posterior cervical lymphadenopathy. Cardiovascular: Regular rate and rhythm, without murmurs, rubs, or gallops. Respiratory: Bilateral Upper and Lower Lobes anterior and posteriorly without wheezes, rales, or rhonchi Gastrointestinal: Soft, rounded, non-tender. Bowel sounds present x4 quadrants. No rebound. No organomegaly or masses noted upon deep palpation. Musculoskeletal: No edema, clubbing or cyanosis, pulses palpable 2+ distally. Muscle strength and tone symmetrical. Skin: Warm, Dry, Intact. No obvious rashes or lesions noted. Neuro: Cranial nerves 2-12 grossly intact upon seated examination. No focal defiects noted. Physiatric: Patient awake, alert, orientedx3. Mood and affect appropriate. Diagnostics: Admission on 06/21/2022 Component Date Value WBC (WHITE BLOOD COUNT) 06/21/2022 10.9 RBC 06/21/2022 5.88 (H) HEMOGLOBIN (HGB) 06/21/2022 17.3 (H) HEMATOCRIT (HCT) 06/21/2022 52.8 (H) MEAN CELL VOLUME 06/21/2022 89.7 Mean Cell HGB 06/21/2022 29.4 MEAN CELL HGB CONCENTRAT* 06/21/2022 32.8 RBC DISTRIBUTION 06/21/2022 14.4 PLATELET COUNT 06/21/2022 390 MEAN PLATELET VOLUME 06/21/2022 8.4 DIFFERENTIAL TYPE 06/21/2022 AUTO DIFF NEUTROPHILS 06/21/2022 84.0 (H) LYMPHOCYTE 06/21/2022 9.8 (L) MONOCYTE % 06/21/2022 5.5 EOSINOPHIL % 06/21/2022 0.0 BASOPHIL % 06/21/2022 0.7 Absolute Neutrophil Count 06/21/2022 9.1 (H) LYMPHOCYTES, ABSOLUTE 06/21/2022 1.1 (L) MONOCYTES, ABSOLUTE 06/21/2022 0.6 ABSOLUTE EOSINOPHIL COUNT 06/21/2022 0.0 ABSOLUTE BASOPHIL COUNT 06/21/2022 0.1 GLUCOSE 06/21/2022 428 (HH) BUN 06/21/2022 15 CREATININE SERUM 06/21/2022 0.72 SODIUM 06/21/2022 131 (L) POTASSIUM 06/21/2022 4.7 CHLORIDE 06/21/2022 102 CALCIUM 06/21/2022 10.4 (H) PROTEIN, TOTAL 06/21/2022 9.3 (H) Albumin 06/21/2022 4.8 BILIRUBIN, TOTAL 06/21/2022 0.7 AST 06/21/2022 28 ALKALINE PHOSPHATASE 06/21/2022 175 (H) CARBON DIOXIDE (CO2) 06/21/2022 <7 (LL) A/G Ratio 06/21/2022 1.1 (L) ALT 06/21/2022 23 ESTIMATED GFR, NON AFRIC* 06/21/2022 90 ESTIMATED GFR, A* 06/21/2022 109 GFR COMMENT 06/21/2022 Average GFR for 50-59 years old = 93. TROPONIN I, HIGH SENSITI* 06/21/2022 9 INFLUENZA A 06/21/2022 NEGATIVE INFLUENZA B 06/21/2022 NEGATIVE SARS COV 2 RNA, QL REAL * 06/21/2022 NOT DETECTED NARRATIVE -1 06/21/2022 This test was performed using isothermal ESPERANZA and has been approved as Emergency Use Authorization (EUA) for the qualitative detection [id number] nucleic acid. COLOR, URINE 06/21/2022 YELLOW APPEARANCE, URINE 06/21/2022 CLEAR Specific [place], Urine 06/21/2022 >1.030 (H) PH URINE 06/21/2022 5.5 PROTEIN, URINE 06/21/2022 100 (A) GLUCOSE, URINE 06/21/2022 500 (A) KETONES, URINE 06/21/2022 >160 (A) BILIRUBIN, URINE 06/21/2022 SMALL (A) BLOOD, URINE DIPSTICK 06/21/2022 SMALL (A) NITRITES, URINE 06/21/2022 NEGATIVE UROBILINOGEN, URINE 06/21/2022 0.2 LEUKOCYTE ESTERASE, URINE 06/21/2022 NEGATIVE pH Venous 06/21/2022 7.10 (LL) pCO2 06/21/2022 21 (L) PO2,VENOUS OR CAP 06/21/2022 39 HCO3 06/21/2022 6.5 (L) BASE DEFICIT 06/21/2022 21.3 (H) CTHB 06/21/2022 17.1 % O2 HGB 06/21/2022 68.0 SO2,VENOUS OR CAP 06/21/2022 68.4 Carboxyhemoglobin 06/21/2022 0.6 MetHB Arterial 06/21/2022 0.0 BETA HYDROXYBUTYRATE 06/21/2022 9.44 (H) WBC, URINE 06/21/2022 1 TO 5 RBC, URINE 06/21/2022 1 TO 5 Epithelial Cells UA 06/21/2022 1 TO 5 Mucus 06/21/2022 NEGATIVE BACTERIA, URINE 06/21/2022 NEGATIVE CRYSTALS, URINE 06/21/2022 NONE CASTS, URINE 06/21/2022 NONE COMMENT, URINE 06/21/2022 CULTURE CRITERIA NOT MET, NO CULTURE PERFORMED. MAGNESIUM 06/21/2022 2.1 GLUCOSE 06/21/2022 369 (H) BUN 06/21/2022 16 CREATININE SERUM 06/21/2022 0.66 (L) SODIUM 06/21/2022 133 (L) POTASSIUM 06/21/2022 4.2 CHLORIDE 06/21/2022 104 CARBON DIOXIDE (CO2) 06/21/2022 <7 (LL) Albumin 06/21/2022 4.4 CALCIUM 06/21/2022 9.7 PHOSPHORUS 06/21/2022 3.5 ESTIMATED GFR, NON AFRIC* 06/21/2022 99 ESTIMATED GFR, A* 06/21/2022 120 GFR COMMENT 06/21/2022 Average GFR for 50-59 years old = 93. SCREEN: MRSA 06/21/2022 NOT DETECTED STAPHYOCOCCUS AUREUS BY * 06/21/2022 DETECTED (A) GLUCOSE, POINT OF CARE 06/21/2022 400 (H) Sport Shoe Spike Assembler 06/21/2022 205,067 MAGNESIUM 06/22/2022 2.0 GLUCOSE 06/22/2022 234 (H) BUN 06/22/2022 12 CREATININE SERUM 06/22/2022 0.44 (L) SODIUM 06/22/2022 135 (L) POTASSIUM 06/22/2022 3.4 (L) CHLORIDE 06/22/2022 111 (H) CARBON DIOXIDE (CO2) 06/22/2022 9 (LL) Albumin 06/22/2022 3.4 (L) CALCIUM 06/22/2022 8.8 PHOSPHORUS 06/22/2022 1.7 (LL) ESTIMATED GFR, NON AFRIC* 06/22/2022 158 ESTIMATED GFR, A* 06/22/2022 192 GFR COMMENT 06/22/2022 Average GFR for 50-59 years old = 93. GLUCOSE, POINT OF CARE 06/21/2022 393 (H) Sport Shoe Spike Assembler 06/21/2022 206,278 GLUCOSE, POINT OF CARE 06/21/2022 280 (H) Sport Shoe Spike Assembler 06/21/2022 204,702 GLUCOSE, POINT OF CARE 06/21/2022 210 (H) Sport Shoe Spike Assembler 06/21/2022 204,702 GLUCOSE, POINT OF CARE 06/21/2022 175 (H) Sport Shoe Spike Assembler 06/21/2022 204,702 GLUCOSE, POINT OF CARE 06/21/2022 192 (H) Sport Shoe Spike Assembler 06/21/2022 204,702 GLUCOSE, POINT OF CARE 06/22/2022 221 (H) Sport Shoe Spike Assembler 06/22/2022 204,702 GLUCOSE, POINT OF CARE 06/22/2022 212 (H) Sport Shoe Spike Assembler 06/22/2022 204,702 GLUCOSE, POINT OF CARE 06/22/2022 214 (H) Sport Shoe Spike Assembler 06/22/2022 206,907 MAGNESIUM 06/22/2022 1.9 GLUCOSE 06/22/2022 254 (H) BUN 06/22/2022 11 CREATININE SERUM 06/22/2022 0.37 (L) SODIUM 06/22/2022 135 (L) POTASSIUM 06/22/2022 3.1 (L) CHLORIDE 06/22/2022 108 (H) CARBON DIOXIDE (CO2) 06/22/2022 15 (LL) Albumin 06/22/2022 3.4 (L) CALCIUM 06/22/2022 8.8 PHOSPHORUS 06/22/2022 1.6 (LL) ESTIMATED GFR, NON AFRIC* 06/22/2022 193 ESTIMATED GFR, A* 06/22/2022 234 GFR COMMENT 06/22/2022 Average GFR for 50-59 years old = 93. GLUCOSE, POINT OF CARE 06/22/2022 245 (H) Sport Shoe Spike Assembler 06/22/2022 204,702 GLUCOSE, POINT OF CARE 06/22/2022 242 (H) Sport Shoe Spike Assembler 06/22/2022 207,486 GLUCOSE, POINT OF CARE 06/22/2022 252 (H) Sport Shoe Spike Assembler 06/22/2022 204,702 GLUCOSE, POINT OF CARE 06/22/2022 234 (H) Sport Shoe Spike Assembler 06/22/2022 207,019 GLUCOSE, POINT OF CARE 06/22/2022 230 (H) Sport Shoe Spike Assembler 06/22/2022 207,019 WBC (WHITE BLOOD COUNT) 06/22/2022 6.9 RBC 06/22/2022 4.61 HEMOGLOBIN (HGB) 06/22/2022 13.4 HEMATOCRIT (HCT) 06/22/2022 39.8 MEAN CELL VOLUME 06/22/2022 86.4 Mean Cell HGB 06/22/2022 29.2 MEAN CELL HGB CONCENTRAT* 06/22/2022 33.8 RBC DISTRIBUTION 06/22/2022 13.7 PLATELET COUNT 06/22/2022 319 MEAN PLATELET VOLUME 06/22/2022 8.9 DIFFERENTIAL TYPE 06/22/2022 AUTO DIFF NEUTROPHILS 06/22/2022 67.8 LYMPHOCYTE 06/22/2022 19.9 (L) MONOCYTE % 06/22/2022 10.1 (H) EOSINOPHIL % 06/22/2022 0.9 BASOPHIL % 06/22/2022 1.3 Absolute Neutrophil Count 06/22/2022 4.7 LYMPHOCYTES, ABSOLUTE 06/22/2022 1.4 MONOCYTES, ABSOLUTE 06/22/2022 0.7 ABSOLUTE EOSINOPHIL COUNT 06/22/2022 0.1 ABSOLUTE BASOPHIL COUNT 06/22/2022 0.1 BETA HYDROXYBUTYRATE 06/22/2022 2.66 (H) GLUCOSE, POINT OF CARE 06/22/2022 213 (H) Sport Shoe Spike Assembler 06/22/2022 207,019 GLUCOSE, POINT OF CARE 06/22/2022 214 (H) [employer] As[employer]er 06/22/2022 207,019 GLUCOSE, POINT OF CARE 06/22/2022 340 (H) [employer] As[employer]er 06/22/2022 207,019 Impression and Plan: Principal Problem: DKA (diabetic ketoacidosis) Active Problems: Diabetes mellitus, type 2 Mixed hyperlipidemia Metabolic acidosis Electrolyte imbalance Medical non-compliance Diabetes mellitus, type 2 Recent A1c 12.3 Follows with Endocrinology Resume home medications Accuchecks with SSI DKA (diabetic ketoacidosis) Resolving - Gap closing Volume expand Serial labs Electrolyte imbalance Replace potassium and phosphorus Trend labs Medical non-compliance Importance of medical compliance discussed with patient Metabolic acidosis Secondary to DKA Volume expand Trend labs Mixed hyperlipidemia Resume home medications Follow-up with PCP after discharge Code Status: Full Code GI/DVT Prophylaxis: Protonix/Lovenox Brijesh Taveras CNP completing HPI for Dr. Saucedo 21 minutes spent of OBJECTIVE C DEVELOPER time including assessment, planning, and discussion with nursing staff and patient Please note Portions of this note utilized [employer] dictation software, please excuse any typographical or grammatical errors Associated attestation - Cecilio Saucedo MD - 06/22/2022 8:49 PM EST I have independently interviewed and examined the patient. I have discussed nj elements of the care plan with the SAP SD ANALYST and I agree with the findings and care plan as stated above. Time spent performing exam and reviewing diagnostics results, images and labs and discussing care plan with nurse practitioner and consulting physicians was 56 minutes D/w dr magana Hyperglycemia Acidosis Iv insulin drip overnigght Glc ctrl Pt feels well and wants to go home Home rx reviewed Heart rrr Lungs clear Abd soft bs+ No jaundice Will follow w pmd as outpt See orders documented in this encounter [facility] 06-22-2022 Evaluation + Plan note Associated Problem(s): DKA (diabetic ketoacidosis) Resolving - Gap closing Volume expand Serial labs [facility] 06-22-2022 Evaluation + Plan note Associated Problem(s): Diabetes mellitus, type 2 Recent A1c 12.3 Follows with Endocrinology Resume home medications Accuchecks with SSI [facility] 06-22-2022 Note Formatting of this n ote might be different from the original. 2nd attempt to page Dr Saucedo [facility] 06-22-2022 Note Formatting of this n ote might be different from the original. Attempt to page Dr Saucedo for critical labs [facility] 06-21-2022 Note Formatting of this n ote might be different from the original. Critical CO2 <7 reported to Rickey Taveras CNP new order to increase cont NS to 150 mL/hr and give 2L LR bolus. Faxed to pharmacy [facility] 06-21-2022 Emergency department Note Patient refuses covid test stating she took a home test last night that was negative. Patient refuses and all imaging, stating I don't want to be radiated. [facility] 06-21-2022 Emergency department Note Patient refuses covid test stating she took a home test last night that was negative. Patient refuses and all imaging, stating I don't want to be radiated. EMERGENCY DEPARTMENT REPORT [facility] ICU SERVICE DATE: 06/22/22 PCP: Kavita Meier CHIEF COMPLAINT: Dizziness Chief Complaint Patient presents with Dizziness Fatigue Patient to the ED for c/o dizziness and weakness since Monday. States she hasn't been eating and she is a diabetic. BS was 376. HPI: Anu Gonzalez is a 52 y.o. female who presents with complaint of dizziness. Onset of dizziness Monday. Dizziness is ongoing. Dizziness occurs with movement. Dizziness is accompanied by emesis and shortness of breath. No chest pain. Patient reports recent chiropractic manipulation. REVIEW OF SYSTEMS: As documented in HPI. General: No fevers or chills. Eyes: No blurred vision or photophobia. ENT: No sore throat or earache. Cardiovascular: No chest pain or palpitations. Respiratory: Patient reports shortness of breath. Gastrointestinal: Patient reports vomiting and constipation. Genitourinary: No dysuria or hematuria. Musculoskeletal: No arthralgias or myalgias. Neurologic: Patient reports dizziness. Skin: No rashes or bruises. Psychiatric: No anxiety or depression. Remaining systems reviewed and negative other than the history of present illness. PAST MEDICAL HISTORY: Past Medical History: Diagnosis Date Diabetes mellitus SURGICAL HISTORY: Past Surgical History: Procedure Laterality Date OTHER SURGICAL HPV CURRENT MEDICATIONS: Current Discharge Medication List CONTINUE these medications which have NOT CHANGED Details Aspirin Low Dose [address] tablet Take 81 mg by mouth daily. Continuous Blood Gluc Air Conditioning Technician (FreeStyle Titus 2 [place] Systm) Device 1 Each by Unknown route every 4 hours. Qty: 1 Each, Refills: 0 Associated Diagnoses: Uncontrolled type 2 diabetes mellitus with hyperglycemia Continuous Blood Gluc Sensor (FreeStyle Titus 2 Sensor Systm) Misc 1 Each by Unknown route every 14 days. Qty: 2 Each, Refills: 11 Associated Diagnoses: Uncontrolled type 2 diabetes mellitus with hyperglycemia Dulaglutide (Trulicity) 1.5 MG/0.5ML Solution Pen-injector injection Inject 0.5 mL under the skin once a week. Qty: 2 mL, Refills: 3 glipiZIDE 10 MG tablet regular release Take 1 tablet by mouth 2 times daily. Qty: 60 tablet, Refills: 11 Associated Diagnoses: Uncontrolled type 2 diabetes mellitus with hyperglycemia metFORMIN-XR 500 MG Tab SR 24 HR Take 2 tablets by mouth 2 times daily. Qty: 120 tablet, Refills: 3 Associated Diagnoses: Uncontrolled type 2 diabetes mellitus with hyperglycemia pioglitazone 30 MG tablet Take 1 tablet by mouth daily. Qty: 30 tablet, Refills: 3 Associated Diagnoses: Uncontrolled type 2 diabetes mellitus with hyperglycemia Glucagon (Gvoke HypoPen 2-Pack) 1 MG/0.2ML Solution Auto-injector Inject 1 mg under the skin As directed. To be used as directed for severe hypoglycemia. Qty: 0.4 mL, Refills: 1 ALLERGIES: Allergies Allergen Reactions Penicillins Pravastatin Hives FAMILY HISTORY: Family History Problem Relation Age of Onset Other - Specify Father SOCIAL HISTORY: Social History Socioeconomic History Marital status: Spouse name: Not on file Number of children: Not on file Years of education: Not on file Highest education level: Not on file Occupational History Not on file Tobacco Use Smoking status: Never Smokeless tobacco: Never Vaping Use Vaping Use: Never used Substance and Sexual Activity Alcohol use: Not Currently Drug use: Never Sexual activity: Not Currently Other Topics Concern Not on file Social History Narrative Not on file Social Determinants of Health Financial Resource Strain: Not on file Food Insecurity: Not on file Transportation Needs: Not on file Physical Activity: Not on file Stress: Not on file Social Connections: Not on file Intimate Partner Violence: Not on file Housing Stability: Not on file PHYSICAL EXAM: Constitutional: Patient appears ill. HEENT: Normocephalic and atraumatic. No mucosal edema, rhinorrhea, or nasal deformity. Uvula is midline, no asymmetry or fullness. Mucous membranes are moist. No oral lesions. No posterior oropharyngeal exudate or erythema. No stridor. Eyes: Pupils are equal and round. No scleral icterus. Neck: Neck is supple and nontender. Cardiovascular: Tachycardia. Pulmonary/Chest: Effort normal. Lungs are clear without wheezes, rales or rhonchi. No accessory muscle usage or stridor. No tenderness or retraction. Abdomen: Soft, nontender, nondistended. Extremities: No lower extremity pitting edema. Neurological: Alert and oriented. No focal weakness, tremor, or facial asymmetry. Normal speech. Normal muscle tone. VITAL SIGNS DURING ED VISIT: Patient Vitals for the past 24 hrs: BP Temp Temp src Pulse Resp SpO2 Height Weight 06/22/22 1030 -- -- -- 110 24 -- -- -- 06/22/22 1000 -- -- -- 109 20 -- -- -- 06/22/22 0930 -- -- -- 103 24 -- -- -- 06/22/22 0900 -- -- -- 105 (!) 26 -- -- -- 06/22/22 0731 -- 99.2 F (37.3 C) Temporal -- -- -- -- -- 06/22/22 0730 96/68 -- -- 110 (!) 29 -- -- -- 06/22/22 0525 81/53 -- -- 104 (!) 28 -- -- -- 06/22/22 0519 -- 99 F (37.2 C) Temporal -- -- -- -- -- 06/22/22 0218 -- -- -- 109 -- -- -- -- 06/22/22 0020 -- 98.9 F (37.2 C) Temporal -- -- -- -- -- 06/22/22 0017 88/63 -- -- 116 21 -- -- -- 06/21/221999 -- -- -- -- -- -- 1.702 m (5' 7 ) 86.2 kg (190 lb) 06/21/22 1913 100/56 98.7 F (37.1 C) Temporal 126 23 99 % -- -- 06/21/22 1811 99/62 -- -- 130 -- 100 % -- -- 06/21/22 1427 165/82 97.6 F (36.4 C) Oral 129 (!) 28 99 % -- -- ED COURSE & MEDICAL DECISION MAKING: Patient refused imaging studies. Patient placed on insulin drip. Patient admitted to the ICU, under the hospitalist service, for further evaluation and treatment. ECG as read by me: Sinus tachycardia with a ventricular rate of 126. No widening of the QRS complex. ORDERS/RESULTS: Orders Placed This Encounter [facility] 1 - NASOPHARYNGEAL MRSA NASAL SWABS TO BILATERAL NARES CBC, EDIF, PLATELET COMPREHENSIVE METABOLIC PANEL Troponin I, High sensitivity INFLUENZA A AND B, PCR BLOOD GAS VENOUS KETONES (BLOOD) MAGNESIUM RENAL FUNCTION PANEL CBC, EDIF, PLATELET KETONES (BLOOD) RENAL FUNCTION PANEL MAGNESIUM RENAL FUNCTION PANEL Glucose (POC device) Glucose (POC device) Glucose (POC device) Glucose (POC device) Glucose (POC device) Glucose (POC device) Glucose (POC device) Glucose (POC device) Glucose (POC device) Glucose (POC device) Glucose (POC device) Glucose (POC device) Glucose (POC device) Glucose (POC device) Glucose (POC device) Glucose (POC device) Glucose (POC device) Glucose (POC device) Glucose (POC device) ECG sodium chloride 0.9% IV solution 1,000 mL DISCONTD: Insulin regular (MYXREDLIN) 100 units in 100 mL sodium chloride 0.9% premix DISCONTD: dextrose 5% and sodium chloride 0.9% IV solution DISCONTD: dextrose 10% IV solution 250 mL sodium chloride 0.9% IV solution acetaminophen (TYLENOL) tablet 650 mg ondansetron 4mg/2ml (ZOFRAN) injection 4 mg lactated ringers IV solution 1,000 mL lactated ringers IV solution 1,000 mL potassium phosphates 30 mmol in sodium chloride 0.9%, with overfill 535 mL (total volume) IVPB potassium chloride 40 mEq in 0.9% sodium chloride 500 ml IVPB lactated ringers IV solution 1,000 mL AND Linked Order Group Insulin regular (HUMULIN R;NOVOLIN R) injection glucose chewable tablet CHEW 16-32 g dextrose 10% IV solution 250 mL aspirin EC tablet DR 81 mg glipiZIDE (GLUCOTROL) tablet 10 mg pioglitazone (ACTOS) tablet 30 mg URINALYSIS, MACRO URINE MICROSCOPIC Results for orders placed or performed during the hospital encounter of 06/21/22 [facility] 1 - NASOPHARYNGEAL Specimen: NASOPHARYNGEAL; Fluid/Swab Result Value Ref Range SARS COV 2 RNA, QL REAL TIME RT PCR NOT DETECTED NOT DETECTED NARRATIVE -1 This test was performed using isothermal ESPER[employer] and has been approved as Emergency Use Authorization (EUA) for the qualitative detection [id number] nucleic acid. SCREEN: MRSA ONLY, NARES (ISOLATION SCREEN) Specimen: NARES; E-Swab Result Value Ref Range SCREEN: MRSA NOT DETECTED NOT DETECTED STAPHYOCOCCUS AUREUS BY PCR DETECTED (A) NOT DETECTED CBC, EDIF, PLATELET Result Value Ref Range WBC (WHITE BLOOD COUNT) 10.9 3.6 - 11.0 10*3/uL RBC 5.88 (H) 4.0 - 5.4 10*6/uL HEMOGLOBIN (HGB) 17.3 (H) 12.0 - 16.0 G/DL HEMATOCRIT (HCT) 52.8 (H) 36.0 - 48.0 % MEAN CELL VOLUME 89.7 80.0 - 100.0 FL Mean Cell HGB 29.4 26.0 - 35.0 PG MEAN CELL HGB CONCENTRATION 32.8 27.0 - 37.0 G/DL RBC DISTRIBUTION 14.4 11.5 - 14.5 % PLATELET COUNT 390 130.0 - 400.0 10*3/uL MEAN PLATELET VOLUME 8.4 7.4 - 11.0 FL DIFFERENTIAL TYPE AUTO DIFF % NEUTROPHILS 84.0 (H) 37.0 - 75.0 % LYMPHOCYTE 9.8 (L) 20.0 - 55.0 % MONOCYTE % 5.5 0.0 - 10.0 % EOSINOPHIL % 0.0 0.0 - 11.0 % BASOPHIL % 0.7 0.0 - 2.0 % Absolute Neutrophil Count 9.1 (H) 1.4 - 6.5 10*3/uL LYMPHOCYTES, ABSOLUTE 1.1 (L) 1.2 - 3.4 10*3/uL MONOCYTES, ABSOLUTE 0.6 0.0 - 0.7 10*3/uL ABSOLUTE EOSINOPHIL COUNT 0.0 0.0 - 0.7 10*3/uL ABSOLUTE BASOPHIL COUNT 0.1 0.0 - 0.2 10*3/uL COMPREHENSIVE METABOLIC PANEL Result Value Ref Range GLUCOSE 428 (HH) 70 - 100 MG/DL BUN 15 7 - 20 MG/DL CREATININE SERUM 0.72 0.7 - 1.2 MG/DL SODIUM 131 (L) 137 - 145 MMOL/L POTASSIUM 4.7 3.5 - 5.1 MMOL/L CHLORIDE 102 98 - 107 MMOL/L CALCIUM 10.4 (H) 8.4 - 10.2 MG/DL PROTEIN, TOTAL 9.3 (H) 6.3 - 8.2 GM/DL Albumin 4.8 3.5 - 5.0 G/dl BILIRUBIN, TOTAL 0.7 0.2 - 1.3 MG/DL AST 28 14 - 36 IU/L ALKALINE PHOSPHATASE 175 (H) 38 - 126 IU/L CARBON DIOXIDE (CO2) <7 (LL) 22 - 30 MMOL/L A/G Ratio 1.1 (L) 1.3 - 2.2 RATIO ALT 23 <35 IU/L ESTIMATED GFR, NON AMER 90 ml/min/1.73sq.m ESTIMATED GFR, 109 ml/min/1.73sq.m GFR COMMENT Average GFR for 50-59 years old = 93. TROPONIN I, HIGH SENSITIVITY Result Value Ref Range TROPONIN I, HIGH SENSITIVITY 9 0 - 12 pg/mL INFLUENZA A AND B, PCR Result Value Ref Range INFLUENZA A NEGATIVE NEGATIVE INFLUENZA B NEGATIVE NEGATIVE BLOOD GAS VENOUS Result Value Ref Range pH Venous 7.10 (LL) 7.31 - 7.41 pCO2 21 (L) 41 - 51 mmHg PO2,VENOUS OR CAP 39 35 - 42 mmHg HCO3 6.5 (L) 22 - 26 mEq/L BASE DEFICIT 21.3 (H) 0 - 2 mEq/L CTHB 17.1 g/dl % O2 HGB 68.0 % SO2,VENOUS OR CAP 68.4 68 - 77 % Carboxyhemoglobin 0.6 % MetHB Arterial 0.0 % KETONES (BLOOD) Result Value Ref Range BETA HYDROXYBUTYRATE 9.44 (H) 0.02 - 0.27 MMOL/L MAGNESIUM Result Value Ref Range MAGNESIUM 2.1 1.6 - 2.3 MG/DL RENAL FUNCTION PANEL Result Value Ref Range GLUCOSE 369 (H) 70 - 100 MG/DL BUN 16 7 - 20 MG/DL CREATININE SERUM 0.66 (L) 0.7 - 1.2 MG/DL SODIUM 133 (L) 137 - 145 MMOL/L POTASSIUM 4.2 3.5 - 5.1 MMOL/L CHLORIDE 104 98 - 107 MMOL/L CARBON DIOXIDE (CO2) <7 (LL) 22 - 30 MMOL/L Albumin 4.4 3.5 - 5.0 G/dl CALCIUM 9.7 8.4 - 10.2 MG/DL PHOSPHORUS 3.5 2.5 - 4.5 MG/DL ESTIMATED GFR, NON AMER 99 ml/min/1.73sq.m ESTIMATED GFR, 120 ml/min/1.73sq.m GFR COMMENT Average GFR for 50-59 years old = 93. MAGNESIUM Result Value Ref Range MAGNESIUM 2.0 1.6 - 2.3 MG/DL RENAL FUNCTION PANEL Result Value Ref Range GLUCOSE 234 (H) 70 - 100 MG/DL BUN 12 7 - 20 MG/DL CREATININE SERUM 0.44 (L) 0.7 - 1.2 MG/DL SODIUM 135 (L) 137 - 145 MMOL/L POTASSIUM 3.4 (L) 3.5 - 5.1 MMOL/L CHLORIDE 111 (H) 98 - 107 MMOL/L CARBON DIOXIDE (CO2) 9 (LL) 22 - 30 MMOL/L Albumin 3.4 (L) 3.5 - 5.0 G/dl CALCIUM 8.8 8.4 - 10.2 MG/DL PHOSPHORUS 1.7 (LL) 2.5 - 4.5 MG/DL ESTIMATED GFR, NON AMER 158 ml/min/1.73sq.m ESTIMATED GFR, 192 ml/min/1.73sq.m GFR COMMENT Average GFR for 50-59 years old = 93. MAGNESIUM Result Value Ref Range MAGNESIUM 1.9 1.6 - 2.3 MG/DL RENAL FUNCTION PANEL Result Value Ref Range GLUCOSE 254 (H) 70 - 100 MG/DL BUN 11 7 - 20 MG/DL CREATININE SERUM 0.37 (L) 0.7 - 1.2 MG/DL SODIUM 135 (L) 137 - 145 MMOL/L POTASSIUM 3.1 (L) 3.5 - 5.1 MMOL/L CHLORIDE 108 (H) 98 - 107 MMOL/L CARBON DIOXIDE (CO2) 15 (LL) 22 - 30 MMOL/L Albumin 3.4 (L) 3.5 - 5.0 G/dl CALCIUM 8.8 8.4 - 10.2 MG/DL PHOSPHORUS 1.6 (LL) 2.5 - 4.5 MG/DL ESTIMATED GFR, NON AMER 193 ml/min/1.73sq.m ESTIMATED GFR, 234 ml/min/1.73sq.m GFR COMMENT Average GFR for 50-59 years old = 93. CBC, EDIF, PLATELET Result Value Ref Range WBC (WHITE BLOOD COUNT) 6.9 3.6 - 11.0 10*3/uL RBC 4.61 4.0 - 5.4 10*6/uL HEMOGLOBIN (HGB) 13.4 12.0 - 16.0 G/DL HEMATOCRIT (HCT) 39.8 36.0 - 48.0 % MEAN CELL VOLUME 86.4 80.0 - 100.0 FL Mean Cell HGB 29.2 26.0 - 35.0 PG MEAN CELL HGB CONCENTRATION 33.8 27.0 - 37.0 G/DL RBC DISTRIBUTION 13.7 11.5 - 14.5 % PLATELET COUNT 319 130.0 - 400.0 10*3/uL MEAN PLATELET VOLUME 8.9 7.4 - 11.0 FL DIFFERENTIAL TYPE AUTO DIFF % NEUTROPHILS 67.8 37.0 - 75.0 % LYMPHOCYTE 19.9 (L) 20.0 - 55.0 % MONOCYTE % 10.1 (H) 0.0 - 10.0 % EOSINOPHIL % 0.9 0.0 - 11.0 % BASOPHIL % 1.3 0.0 - 2.0 % Absolute Neutrophil Count 4.7 1.4 - 6.5 10*3/uL LYMPHOCYTES, ABSOLUTE 1.4 1.2 - 3.4 10*3/uL MONOCYTES, ABSOLUTE 0.7 0.0 - 0.7 10*3/uL ABSOLUTE EOSINOPHIL COUNT 0.1 0.0 - 0.7 10*3/uL ABSOLUTE BASOPHIL COUNT 0.1 0.0 - 0.2 10*3/uL KETONES (BLOOD) Result Value Ref Range BETA HYDROXYBUTYRATE 2.66 (H) 0.02 - 0.27 MMOL/L GLUCOSE (POC DEVICE) Result Value Ref Range GLUCOSE, POINT OF CARE 400 (H) 70 - 100 MG/DL Sport Shoe Spike Assembler 205,067 GLUCOSE (POC DEVICE) Result Value Ref Range GLUCOSE, POINT OF CARE 393 (H) 70 - 100 MG/DL Sport Shoe Spike Assembler 206,278 GLUCOSE (POC DEVICE) Result Value Ref Range GLUCOSE, POINT OF CARE 280 (H) 70 - 100 MG/DL Sport Shoe Spike Assembler 204,702 GLUCOSE (POC DEVICE) Result Value Ref Range GLUCOSE, POINT OF CARE 210 (H) 70 - 100 MG/DL Sport Shoe Spike Assembler 204,702 GLUCOSE (POC DEVICE) Result Value Ref Range GLUCOSE, POINT OF CARE 175 (H) 70 - 100 MG/DL Sport Shoe Spike Assembler 204,702 GLUCOSE (POC DEVICE) Result Value Ref Range GLUCOSE, POINT OF CARE 192 (H) 70 - 100 MG/DL Sport Shoe Spike Assembler 204,702 GLUCOSE (POC DEVICE) Result Value Ref Range GLUCOSE, POINT OF CARE 221 (H) 70 - 100 MG/DL Sport Shoe Spike Assembler 204,702 GLUCOSE (POC DEVICE) Result Value Ref Range GLUCOSE, POINT OF CARE 212 (H) 70 - 100 MG/DL Sport Shoe Spike Assembler 204,702 GLUCOSE (POC DEVICE) Result Value Ref Range GLUCOSE, POINT OF CARE 214 (H) 70 - 100 MG/DL Sport Shoe Spike Assembler 206,907 GLUCOSE (POC DEVICE) Result Value Ref Range GLUCOSE, POINT OF CARE 245 (H) 70 - 100 MG/DL Sport Shoe Spike Assembler 204,702 GLUCOSE (POC DEVICE) Result Value Ref Range GLUCOSE, POINT OF CARE 242 (H) 70 - 100 MG/DL Sport Shoe Spike Assembler 207,486 GLUCOSE (POC DEVICE) Result Value Ref Range GLUCOSE, POINT OF CARE 252 (H) 70 - 100 MG/DL Sport Shoe Spike Assembler 204,702 GLUCOSE (POC DEVICE) Result Value Ref Range GLUCOSE, POINT OF CARE 234 (H) 70 - 100 MG/DL Sport Shoe Spike Assembler 207,019 GLUCOSE (POC DEVICE) Result Value Ref Range GLUCOSE, POINT OF CARE 230 (H) 70 - 100 MG/DL Sport Shoe Spike Assembler 207,019 GLUCOSE (POC DEVICE) Result Value Ref Range GLUCOSE, POINT OF CARE 213 (H) 70 - 100 MG/DL Sport Shoe Spike Assembler 207,019 GLUCOSE (POC DEVICE) Result Value Ref Range GLUCOSE, POINT OF CARE 214 (H) 70 - 100 MG/DL Sport Shoe Spike Assembler 207,019 GLUCOSE (POC DEVICE) Result Value Ref Range GLUCOSE, POINT OF CARE 340 (H) 70 - 100 MG/DL Sport Shoe Spike Assembler 207,019 URINALYSIS, MACRO Result Value Ref Range COLOR, URINE YELLOW YELLOW APPEARANCE, URINE CLEAR CLEAR Specific [place], Urine >1.030 (H) 1.010 - 1.025 PH URINE 5.5 5.0 - 7.0 PROTEIN, URINE 100 (A) NEGATIVE mg/dl GLUCOSE, URINE 500 (A) NEGATIVE mg/dl KETONES, URINE >160 (A) NEGATIVE mg/dl BILIRUBIN, URINE SMALL (A) NEGATIVE BLOOD, URINE DIPSTICK SMALL (A) NEGATIVE NITRITES, URINE NEGATIVE NEGATIVE UROBILINOGEN, URINE 0.2 0.2 - 1.0 E.U./dL LEUKOCYTE ESTERASE, URINE NEGATIVE NEGATIVE URINE MICROSCOPIC Result Value Ref Range WBC, URINE 1 TO 5 NEGATIVE /HPF RBC, URINE 1 TO 5 NEGATIVE /HPF Epithelial Cells UA 1 TO 5 /HPF Mucus NEGATIVE NEGATIVE BACTERIA, URINE NEGATIVE NEGATIVE CRYSTALS, URINE NONE NONE CASTS, URINE NONE NONE /LPF COMMENT, URINE CULTURE CRITERIA NOT MET, NO CULTURE PERFORMED. IMAGING: No orders to display CLINICAL IMPRESSION: 1. Diabetic ketoacidosis without coma associated with type 2 diabetes mellitus DISPOSITION: Admit to ICU Critical care time: 32 minutes excluding any other billable procedures. No follow-ups on file. Current Discharge Medication List Current Discharge Medication List An after visit summary was printed and given to the patient with the above information. Portions of this chart were created using [employer] electronic dictation. Please excuse any typographical or grammatical errors contained herein. Irvin Magana MD 06/22/22 1055 documented in this encounter [facility] 06-21-2022 Physician Emergen cy department Note EMERGENCY DEPARTMENT REPORT [facility] ICU SERVICE DATE: 06/22/22 PCP: Kavita Meier CHIEF COMPLAINT: Dizziness Chief Complaint Patient presents with Dizziness Fatigue Patient to the ED for c/o dizziness and weakness since Monday. States she hasn't been eating and she is a diabetic. BS was 376. HPI: Anu Gonzalez is a 52 y.o. female who presents with complaint of dizziness. Onset of dizziness Monday. Dizziness is ongoing. Dizziness occurs with movement. Dizziness is accompanied by emesis and shortness of breath. No chest pain. Patient reports recent chiropractic manipulation. REVIEW OF SYSTEMS: As documented in HPI. General: No fevers or chills. Eyes: No blurred vision or photophobia. ENT: No sore throat or earache. Cardiovascular: No chest pain or palpitations. Respiratory: Patient reports shortness of breath. Gastrointestinal: Patient reports vomiting and constipation. Genitourinary: No dysuria or hematuria. Musculoskeletal: No arthralgias or myalgias. Neurologic: Patient reports dizziness. Skin: No rashes or bruises. Psychiatric: No anxiety or depression. Remaining systems reviewed and negative other than the history of present illness. PAST MEDICAL HISTORY: Past Medical History: Diagnosis Date Diabetes mellitus SURGICAL HISTORY: Past Surgical History: Procedure Laterality Date OTHER SURGICAL HPV CURRENT MEDICATIONS: Current Discharge Medication List CONTINUE these medications which have NOT CHANGED Details Aspirin Low Dose [address] tablet Take 81 mg by mouth daily. Continuous Blood Gluc Air Conditioning Technician (FreeStyle Titus 2 [place] Systm) Device 1 Each by Unknown route every 4 hours. Qty: 1 Each, Refills: 0 Associated Diagnoses: Uncontrolled type 2 diabetes mellitus with hyperglycemia Continuous Blood Gluc Sensor (FreeStyle Titus 2 Sensor Systm) Misc 1 Each by Unknown route every 14 days. Qty: 2 Each, Refills: 11 Associated Diagnoses: Uncontrolled type 2 diabetes mellitus with hyperglycemia Dulaglutide (Trulicity) 1.5 MG/0.5ML Solution Pen-injector injection Inject 0.5 mL under the skin once a week. Qty: 2 mL, Refills: 3 glipiZIDE 10 MG tablet regular release Take 1 tablet by mouth 2 times daily. Qty: 60 tablet, Refills: 11 Associated Diagnoses: Uncontrolled type 2 diabetes mellitus with hyperglycemia metFORMIN-XR 500 MG Tab SR 24 HR Take 2 tablets by mouth 2 times daily. Qty: 120 tablet, Refills: 3 Associated Diagnoses: Uncontrolled type 2 diabetes mellitus with hyperglycemia pioglitazone 30 MG tablet Take 1 tablet by mouth daily. Qty: 30 tablet, Refills: 3 Associated Diagnoses: Uncontrolled type 2 diabetes mellitus with hyperglycemia Glucagon (Gvoke HypoPen 2-Pack) 1 MG/0.2ML Solution Auto-injector Inject 1 mg under the skin As directed. To be used as directed for severe hypoglycemia. Qty: 0.4 mL, Refills: 1 ALLERGIES: Allergies Allergen Reactions Penicillins Pravastatin Hives FAMILY HISTORY: Family History Problem Relation Age of Onset Other - Specify Father SOCIAL HISTORY: Social History Socioeconomic History Marital status: Spouse name: Not on file Number of children: Not on file Years of education: Not on file Highest education level: Not on file Occupational History Not on file Tobacco Use Smoking status: Never Smokeless tobacco: Never Vaping Use Vaping Use: Never used Substance and Sexual Activity Alcohol use: Not Currently Drug use: Never Sexual activity: Not Currently Other Topics Concern Not on file Social History Narrative Not on file Social Determinants of Health Financial Resource Strain: Not on file Food Insecurity: Not on file Transportation Needs: Not on file Physical Activity: Not on file Stress: Not on file Social Connections: Not on file Intimate Partner Violence: Not on file Housing Stability: Not on file PHYSICAL EXAM: Constitutional: Patient appears ill. HEENT: Normocephalic and atraumatic. No mucosal edema, rhinorrhea, or nasal deformity. Uvula is midline, no asymmetry or fullness. Mucous membranes are moist. No oral lesions. No posterior oropharyngeal exudate or erythema. No stridor. Eyes: Pupils are equal and round. No scleral icterus. Neck: Neck is supple and nontender. Cardiovascular: Tachycardia. Pulmonary/Chest: Effort normal. Lungs are clear without wheezes, rales or rhonchi. No accessory muscle usage or stridor. No tenderness or retraction. Abdomen: Soft, nontender, nondistended. Extremities: No lower extremity pitting edema. Neurological: Alert and oriented. No focal weakness, tremor, or facial asymmetry. Normal speech. Normal muscle tone. VITAL SIGNS DURING ED VISIT: Patient Vitals for the past 24 hrs: BP Temp Temp src Pulse Resp SpO2 Height Weight 06/22/22 1030 -- -- -- 110 24 -- -- -- 06/22/22 1000 -- -- -- 109 20 -- -- -- 06/22/22 0930 -- -- -- 103 24 -- -- -- 06/22/22 0900 -- -- -- 105 (!) 26 -- -- -- 06/22/22 0731 -- 99.2 F (37.3 C) Temporal -- -- -- -- -- 06/22/22 0730 96/68 -- -- 110 (!) 29 -- -- -- 06/22/22 0525 81/53 -- -- 104 (!) 28 -- -- -- 06/22/22 0519 -- 99 F (37.2 C) Temporal -- -- -- -- -- 06/22/22 0218 -- -- -- 109 -- -- -- -- 06/22/22 0020 -- 98.9 F (37.2 C) Temporal -- -- -- -- -- 06/22/22 0017 88/63 -- -- 116 21 -- -- -- 06/21/221999 -- -- -- -- -- -- 1.702 m (5' 7 ) 86.2 kg (190 lb) 06/21/22 1913 100/56 98.7 F (37.1 C) Temporal 126 23 99 % -- -- 06/21/22 1811 99/62 -- -- 130 -- 100 % -- -- 06/21/22 1427 165/82 97.6 F (36.4 C) Oral 129 (!) 28 99 % -- -- ED COURSE & MEDICAL DECISION MAKING: Patient refused imaging studies. Patient placed on insulin drip. Patient admitted to the ICU, under the hospitalist service, for further evaluation and treatment. ECG as read by me: Sinus tachycardia with a ventricular rate of 126. No widening of the QRS complex. ORDERS/RESULTS: Orders Placed This Encounter [facility] LAB 1 - NASOPHARYNGEAL MRSA NASAL SWABS TO BILATERAL NARES CBC, EDIF, PLATELET COMPREHENSIVE METABOLIC PANEL Troponin I, High sensitivity INFLUENZA A AND B, PCR BLOOD GAS VENOUS KETONES (BLOOD) MAGNESIUM RENAL FUNCTION PANEL CBC, EDIF, PLATELET KETONES (BLOOD) RENAL FUNCTION PANEL MAGNESIUM RENAL FUNCTION PANEL Glucose (POC device) Glucose (POC device) Glucose (POC device) Glucose (POC device) Glucose (POC device) Glucose (POC device) Glucose (POC device) Glucose (POC device) Glucose (POC device) Glucose (POC device) Glucose (POC device) Glucose (POC device) Glucose (POC device) Glucose (POC device) Glucose (POC device) Glucose (POC device) Glucose (POC device) Glucose (POC device) Glucose (POC device) ECG sodium chloride 0.9% IV solution 1,000 mL DISCONTD: Insulin regular (MYXREDLIN) 100 units in 100 mL sodium chloride 0.9% premix DISCONTD: dextrose 5% and sodium chloride 0.9% IV solution DISCONTD: dextrose 10% IV solution 250 mL sodium chloride 0.9% IV solution acetaminophen (TYLENOL) tablet 650 mg ondansetron 4mg/2ml (ZOFRAN) injection 4 mg lactated ringers IV solution 1,000 mL lactated ringers IV solution 1,000 mL potassium phosphates 30 mmol in sodium chloride 0.9%, with overfill 535 mL (total volume) IVPB potassium chloride 40 mEq in 0.9% sodium chloride 500 ml IVPB lactated ringers IV solution 1,000 mL AND Linked Order Group Insulin regular (HUMULIN R;NOVOLIN R) injection glucose chewable tablet CHEW 16-32 g dextrose 10% IV solution 250 mL aspirin EC tablet DR 81 mg glipiZIDE (GLUCOTROL) tablet 10 mg pioglitazone (ACTOS) tablet 30 mg URINALYSIS, MACRO URINE MICROSCOPIC Results for orders placed or performed during the hospital encounter of 06/21/22 [facility] 1 - NASOPHARYNGEAL Specimen: NASOPHARYNGEAL; Fluid/Swab Result Value Ref Range SARS COV 2 RNA, QL REAL TIME RT PCR NOT DETECTED NOT DETECTED NARRATIVE -1 This test was performed using isothermal ESP[employer] and has been approved as Emergency Use Authorization (EUA) for the qualitative detection [id number] nucleic acid. SCREEN: MRSA ONLY, NARES (ISOLATION SCREEN) Specimen: NARES; E-Swab Result Value Ref Range SCREEN: MRSA NOT DETECTED NOT DETECTED STAPHYOCOCCUS AUREUS BY PCR DETECTED (A) NOT DETECTED CBC, EDIF, PLATELET Result Value Ref Range WBC (WHITE BLOOD COUNT) 10.9 3.6 - 11.0 10*3/uL RBC 5.88 (H) 4.0 - 5.4 10*6/uL HEMOGLOBIN (HGB) 17.3 (H) 12.0 - 16.0 G/DL HEMATOCRIT (HCT) 52.8 (H) 36.0 - 48.0 % MEAN CELL VOLUME 89.7 80.0 - 100.0 FL Mean Cell HGB 29.4 26.0 - 35.0 PG MEAN CELL HGB CONCENTRATION 32.8 27.0 - 37.0 G/DL RBC DISTRIBUTION 14.4 11.5 - 14.5 % PLATELET COUNT 390 130.0 - 400.0 10*3/uL MEAN PLATELET VOLUME 8.4 7.4 - 11.0 FL DIFFERENTIAL TYPE AUTO DIFF % NEUTROPHILS 84.0 (H) 37.0 - 75.0 % LYMPHOCYTE 9.8 (L) 20.0 - 55.0 % MONOCYTE % 5.5 0.0 - 10.0 % EOSINOPHIL % 0.0 0.0 - 11.0 % BASOPHIL % 0.7 0.0 - 2.0 % Absolute Neutrophil Count 9.1 (H) 1.4 - 6.5 10*3/uL LYMPHOCYTES, ABSOLUTE 1.1 (L) 1.2 - 3.4 10*3/uL MONOCYTES, ABSOLUTE 0.6 0.0 - 0.7 10*3/uL ABSOLUTE EOSINOPHIL COUNT 0.0 0.0 - 0.7 10*3/uL ABSOLUTE BASOPHIL COUNT 0.1 0.0 - 0.2 10*3/uL COMPREHENSIVE METABOLIC PANEL Result Value Ref Range GLUCOSE 428 (HH) 70 - 100 MG/DL BUN 15 7 - 20 MG/DL CREATININE SERUM 0.72 0.7 - 1.2 MG/DL SODIUM 131 (L) 137 - 145 MMOL/L POTASSIUM 4.7 3.5 - 5.1 MMOL/L CHLORIDE 102 98 - 107 MMOL/L CALCIUM 10.4 (H) 8.4 - 10.2 MG/DL PROTEIN, TOTAL 9.3 (H) 6.3 - 8.2 GM/DL Albumin 4.8 3.5 - 5.0 G/dl BILIRUBIN, TOTAL 0.7 0.2 - 1.3 MG/DL AST 28 14 - 36 IU/L ALKALINE PHOSPHATASE 175 (H) 38 - 126 IU/L CARBON DIOXIDE (CO2) <7 (LL) 22 - 30 MMOL/L A/G Ratio 1.1 (L) 1.3 - 2.2 RATIO ALT 23 <35 IU/L ESTIMATED GFR, NON AMER 90 ml/min/1.73sq.m ESTIMATED GFR, 109 ml/min/1.73sq.m GFR COMMENT Average GFR for 50-59 years old = 93. TROPONIN I, HIGH SENSITIVITY Result Value Ref Range TROPONIN I, HIGH SENSITIVITY 9 0 - 12 pg/mL INFLUENZA A AND B, PCR Result Value Ref Range INFLUENZA A NEGATIVE NEGATIVE INFLUENZA B NEGATIVE NEGATIVE BLOOD GAS VENOUS Result Value Ref Range pH Venous 7.10 (LL) 7.31 - 7.41 pCO2 21 (L) 41 - 51 mmHg PO2,VENOUS OR CAP 39 35 - 42 mmHg HCO3 6.5 (L) 22 - 26 mEq/L BASE DEFICIT 21.3 (H) 0 - 2 mEq/L CTHB 17.1 g/dl % O2 HGB 68.0 % SO2,VENOUS OR CAP 68.4 68 - 77 % Carboxyhemoglobin 0.6 % MetHB Arterial 0.0 % KETONES (BLOOD) Result Value Ref Range BETA HYDROXYBUTYRATE 9.44 (H) 0.02 - 0.27 MMOL/L MAGNESIUM Result Value Ref Range MAGNESIUM 2.1 1.6 - 2.3 MG/DL RENAL FUNCTION PANEL Result Value Ref Range GLUCOSE 369 (H) 70 - 100 MG/DL BUN 16 7 - 20 MG/DL CREATININE SERUM 0.66 (L) 0.7 - 1.2 MG/DL SODIUM 133 (L) 137 - 145 MMOL/L POTASSIUM 4.2 3.5 - 5.1 MMOL/L CHLORIDE 104 98 - 107 MMOL/L CARBON DIOXIDE (CO2) <7 (LL) 22 - 30 MMOL/L Albumin 4.4 3.5 - 5.0 G/dl CALCIUM 9.7 8.4 - 10.2 MG/DL PHOSPHORUS 3.5 2.5 - 4.5 MG/DL ESTIMATED GFR, NON AMER 99 ml/min/1.73sq.m ESTIMATED GFR, 120 ml/min/1.73sq.m GFR COMMENT Average GFR for 50-59 years old = 93. MAGNESIUM Result Value Ref Range MAGNESIUM 2.0 1.6 - 2.3 MG/DL RENAL FUNCTION PANEL Result Value Ref Range GLUCOSE 234 (H) 70 - 100 MG/DL BUN 12 7 - 20 MG/DL CREATININE SERUM 0.44 (L) 0.7 - 1.2 MG/DL SODIUM 135 (L) 137 - 145 MMOL/L POTASSIUM 3.4 (L) 3.5 - 5.1 MMOL/L CHLORIDE 111 (H) 98 - 107 MMOL/L CARBON DIOXIDE (CO2) 9 (LL) 22 - 30 MMOL/L Albumin 3.4 (L) 3.5 - 5.0 G/dl CALCIUM 8.8 8.4 - 10.2 MG/DL PHOSPHORUS 1.7 (LL) 2.5 - 4.5 MG/DL ESTIMATED GFR, NON AMER 158 ml/min/1.73sq.m ESTIMATED GFR, 192 ml/min/1.73sq.m GFR COMMENT Average GFR for 50-59 years old = 93. MAGNESIUM Result Value Ref Range MAGNESIUM 1.9 1.6 - 2.3 MG/DL RENAL FUNCTION PANEL Result Value Ref Range GLUCOSE 254 (H) 70 - 100 MG/DL BUN 11 7 - 20 MG/DL CREATININE SERUM 0.37 (L) 0.7 - 1.2 MG/DL SODIUM 135 (L) 137 - 145 MMOL/L POTASSIUM 3.1 (L) 3.5 - 5.1 MMOL/L CHLORIDE 108 (H) 98 - 107 MMOL/L CARBON DIOXIDE (CO2) 15 (LL) 22 - 30 MMOL/L Albumin 3.4 (L) 3.5 - 5.0 G/dl CALCIUM 8.8 8.4 - 10.2 MG/DL PHOSPHORUS 1.6 (LL) 2.5 - 4.5 MG/DL ESTIMATED GFR, NON AMER 193 ml/min/1.73sq.m ESTIMATED GFR, 234 ml/min/1.73sq.m GFR COMMENT Average GFR for 50-59 years old = 93. CBC, EDIF, PLATELET Result Value Ref Range WBC (WHITE BLOOD COUNT) 6.9 3.6 - 11.0 10*3/uL RBC 4.61 4.0 - 5.4 10*6/uL HEMOGLOBIN (HGB) 13.4 12.0 - 16.0 G/DL HEMATOCRIT (HCT) 39.8 36.0 - 48.0 % MEAN CELL VOLUME 86.4 80.0 - 100.0 FL Mean Cell HGB 29.2 26.0 - 35.0 PG MEAN CELL HGB CONCENTRATION 33.8 27.0 - 37.0 G/DL RBC DISTRIBUTION 13.7 11.5 - 14.5 % PLATELET COUNT 319 130.0 - 400.0 10*3/uL MEAN PLATELET VOLUME 8.9 7.4 - 11.0 FL DIFFERENTIAL TYPE AUTO DIFF % NEUTROPHILS 67.8 37.0 - 75.0 % LYMPHOCYTE 19.9 (L) 20.0 - 55.0 % MONOCYTE % 10.1 (H) 0.0 - 10.0 % EOSINOPHIL % 0.9 0.0 - 11.0 % BASOPHIL % 1.3 0.0 - 2.0 % Absolute Neutrophil Count 4.7 1.4 - 6.5 10*3/uL LYMPHOCYTES, ABSOLUTE 1.4 1.2 - 3.4 10*3/uL MONOCYTES, ABSOLUTE 0.7 0.0 - 0.7 10*3/uL ABSOLUTE EOSINOPHIL COUNT 0.1 0.0 - 0.7 10*3/uL ABSOLUTE BASOPHIL COUNT 0.1 0.0 - 0.2 10*3/uL KETONES (BLOOD) Result Value Ref Range BETA HYDROXYBUTYRATE 2.66 (H) 0.02 - 0.27 MMOL/L GLUCOSE (POC DEVICE) Result Value Ref Range GLUCOSE, POINT OF CARE 400 (H) 70 - 100 MG/DL Sport Shoe Spike Assembler 205,067 GLUCOSE (POC DEVICE) Result Value Ref Range GLUCOSE, POINT OF CARE 393 (H) 70 - 100 MG/DL Sport Shoe Spike Assembler 206,278 GLUCOSE (POC DEVICE) Result Value Ref Range GLUCOSE, POINT OF CARE 280 (H) 70 - 100 MG/DL Sport Shoe Spike Assembler 204,702 GLUCOSE (POC DEVICE) Result Value Ref Range GLUCOSE, POINT OF CARE 210 (H) 70 - 100 MG/DL Sport Shoe Spike Assembler 204,702 GLUCOSE (POC DEVICE) Result Value Ref Range GLUCOSE, POINT OF CARE 175 (H) 70 - 100 MG/DL Sport Shoe Spike Assembler 204,702 GLUCOSE (POC DEVICE) Result Value Ref Range GLUCOSE, POINT OF CARE 192 (H) 70 - 100 MG/DL Sport Shoe Spike Assembler 204,702 GLUCOSE (POC DEVICE) Result Value Ref Range GLUCOSE, POINT OF CARE 221 (H) 70 - 100 MG/DL Sport Shoe Spike Assembler 204,702 GLUCOSE (POC DEVICE) Result Value Ref Range GLUCOSE, POINT OF CARE 212 (H) 70 - 100 MG/DL Sport Shoe Spike Assembler 204,702 GLUCOSE (POC DEVICE) Result Value Ref Range GLUCOSE, POINT OF CARE 214 (H) 70 - 100 MG/DL Sport Shoe Spike Assembler 206,907 GLUCOSE (POC DEVICE) Result Value Ref Range GLUCOSE, POINT OF CARE 245 (H) 70 - 100 MG/DL Sport Shoe Spike Assembler 204,702 GLUCOSE (POC DEVICE) Result Value Ref Range GLUCOSE, POINT OF CARE 242 (H) 70 - 100 MG/DL Sport Shoe Spike Assembler 207,486 GLUCOSE (POC DEVICE) Result Value Ref Range GLUCOSE, POINT OF CARE 252 (H) 70 - 100 MG/DL Sport Sh[employer] Spike Assembler 204,702 GLUCOSE (POC DEVICE) Result Value Ref Range GLUCOSE, POINT OF CARE 234 (H) 70 - 100 MG/DL Sport Shoe Spike Assembler 207,019 GLUCOSE (POC DEVICE) Result Value Ref Range GLUCOSE, POINT OF CARE 230 (H) 70 - 100 MG/DL Sport Shoe Spike Assembler 207,019 GLUCOSE (POC DEVICE) Result Value Ref Range GLUCOSE, POINT OF CARE 213 (H) 70 - 100 MG/DL Sport Shoe Spike Assembler 207,019 GLUCOSE (POC DEVICE) Result Value Ref Range GLUCOSE, POINT OF CARE 214 (H) 70 - 100 MG/DL Sport Sh[employer] Spike As[employer]er 207,019 GLUCOSE (POC DEVICE) Result Value Ref Range GLUCOSE, POINT OF CARE 340 (H) 70 - 100 MG/DL Sport Sh[employer] Spike As[employer]er 207,019 URINALYSIS, MACRO Result Value Ref Range COLOR, URINE YELLOW YELLOW APPEARANCE, URINE CLEAR CLEAR Specific [place], Urine >1.030 (H) 1.010 - 1.025 PH URINE 5.5 5.0 - 7.0 PROTEIN, URINE 100 (A) NEGATIVE mg/dl GLUCOSE, URINE 500 (A) NEGATIVE mg/dl KETONES, URINE >160 (A) NEGATIVE mg/dl BILIRUBIN, URINE SMALL (A) NEGATIVE BLOOD, URINE DIPSTICK SMALL (A) NEGATIVE NITRITES, URINE NEGATIVE NEGATIVE UROBILINOGEN, URINE 0.2 0.2 - 1.0 E.U./dL LEUKOCYTE ESTERASE, URINE NEGATIVE NEGATIVE URINE MICROSCOPIC Result Value Ref Range WBC, URINE 1 TO 5 NEGATIVE /HPF RBC, URINE 1 TO 5 NEGATIVE /HPF Epithelial Cells UA 1 TO 5 /HPF Mucus NEGATIVE NEGATIVE BACTERIA, URINE NEGATIVE NEGATIVE CRYSTALS, URINE NONE NONE CASTS, URINE NONE NONE /LPF COMMENT, URINE CULTURE CRITERIA NOT MET, NO CULTURE PERFORMED. IMAGING: No orders to display CLINICAL IMPRESSION: 1. Diabetic ketoacidosis without coma associated with type 2 diabetes mellitus DISPOSITION: Admit to ICU Critical care time: 32 minutes excluding any other billable procedures. No follow-ups on file. Current Discharge Medication List Current Discharge Medication List An after visit summary was printed and given to the patient with the above information. Portions of this chart were created using [employer] electronic dictation. Please excuse any typographical or grammatical errors contained herein. Irvin Magana MD 06/22/22 10[address] [facility] [employer] [facility] [employer] Work Phone: 04-07-2022 History of Presen t illness Narrative Nurse Note: Review of Systems Constitutional: Positive for fatigue. Negative for unexpected weight change. Eyes: Negative for visual disturbance. Respiratory: Negative for cough and shortness of breath. Cardiovascular: Negative for chest pain and leg swelling. Gastrointestinal: Negative for constipation, diarrhea, nausea and vomiting. Endocrine: Positive for polydipsia and polyuria. Skin: Negative for rash. Neurological: Positive for numbness (feet). Psychiatric/Behavioral: Positive for sleep disturbance. Nursing Assessment: Physical Exam History of Present Illness Type 2 diabetes: This is a followup visit to the office. She was diagnosed with diabetes at age 30. No family history of diabetes in first-degree relatives though notes aunts, uncles, cousins with diabetes. She is currently taking metformin 1000 mg twice a day, pioglitazone 30 mg daily, Trulicity 0.75 mg weekly, and no longer taking Jardiance after a prolonged urinary tract infection. She states that she could not handle the weight gain that she experienced with insulin therapy. Hemoglobin A1c =12.3%, up from 12.2%, up from 9.1% (this was reported by patient as done in May 2021 at PCP's office), down from 15.4%. Previously C-peptide level = 2 with fasting blood sugar of 386 mg/dL and normal renal function. Last visit with ophthalmology was summer, bilateral diabetic retinopathy, mild. Complains of some neuropathy to 3 toes on the left foot but does not follow with podiatry. Last met with a visual educator a few years ago. She reports she eats 3 times a day and a snack at bedtime. No sugary drinks. She states she is eating a very low carb diet, Eating mostly vegetables. She has a bottle of water with her in the exam room today. She does have a history of DKA in March 2021 and has a history of fatty liver disease. Blood pressure at target today, she is taking lisinopril 2.5 mg daily. concerns for Al[place] syndrome: Dexamethasone suppression test negative, although midnight salivary cortisol did show some minor elevation, There was some bloody contamination. Hyperlipidemia: triglycerides = 406 mg/dL. Not currently on statin therapy as she reports she cannot tolerate statins. Review of Systems Nurse Note: Review of Systems Constitutional: Positive for fatigue. Negative for unexpected weight change. Eyes: Negative for visual disturbance. Respiratory: Negative for cough and shortness of breath. Cardiovascular: Negative for chest pain and leg swelling. Gastrointestinal: Negative for constipation, diarrhea, nausea and vomiting. Endocrine: Positive for polydipsia and polyuria. Skin: Negative for rash. Neurological: Positive for numbness (feet). Psychiatric/Behavioral: Positive for sleep disturbance. Nursing Assessment: Physical Exam Vitals: Blood pressure 126/88, pulse 112, resp. rate 16, height 1.702 m (5' 7.01 ), weight 94.8 kg (209 lb). Physical Exam Vitals and nursing note reviewed. Constitutional: General: She is not in acute distress. Appearance: She is not diaphoretic. HENT: Head: Normocephalic. Pulmonary: Effort: Pulmonary effort is normal. Skin: General: Skin is warm and dry. Comments: Mild acanthosis noted to posterior neck. [place] cervical fat pad noted. Neurological: Mental Status: She is alert and oriented to person, place, and time. Psychiatric: Mood and Affect: Mood normal. Behavior: Behavior normal. Thought Content: Thought content normal. Neurological Exam Mental Status Alert. Oriented to person, place, and time. Assessment and Plan Type 2 diabetes: Uncontrolled type 2 diabetes. At this point, she is declining insulin therapy. States the weight gain will cause severe depression with far-reaching consequences for her. As such, we are attempting to use other relations although there chances of success are limited. Previously did not tolerate higher dose of Trulicity, but she is asking another trial of increasing it to 1.5 mg weekly; Discussed we can try this, but be aware of nausea, if not improving, go back to the lower dose. We will continue glipizide 10 mg twice a day. Continue Pioglitazone 30 mg daily and metformin thousand grams twice a day. Continue Jardiance 10 mg daily. Discussed a retrial of insulin therapy, discussed bariatric surgery As a therapy option for fatty liver and uncontrolled diabetes. Believe insulin therapy would likely work, but she Will likely require higher doses to reduce/reverse the glucose toxicity. At this point, she is declining insulin therapy, as such will use secondary options. We will reassess in 3 months, sooner if she has issues. Hyperlipidemia: We discussed her previously significantly elevated LDL. Would recommend statin therapy though she is unable to tolerate. At this time not willing to retrial. documented in this encounter [facility] 04-07-2022 Procedure note Associated Ord er(s): MA CONTINUOUS GLUCOSE MONITORING ANALYSIS I&R CGM download shows 0% of blood sugars at target range, 2% high, 98% very high, GMI = 12.1%. Hyperglycemia at all timeframes. Lowest blood sugars approximately 200 mg/dL. This CGM download, we discussed insulin therapy versus bariatric surgery. [facility] 04-07-2022 Procedure note Associated Ord er(s): MA CONTINUOUS GLUCOSE MONITORING ANALYSIS I&R CGM download shows 0% of blood sugars at target range, 2% high, 98% very high, GMI = 12.1%. Hyperglycemia at all timeframes. Lowest blood sugars approximately 200 mg/dL. This CGM download, we discussed insulin therapy versus bariatric surgery. documented in this encounter [facility] 02-03-2022 History of Presen t illness Narrative Nurse Note: Review of Systems Constitutional: Negative for fatigue and unexpected weight change (gained). Eyes: Negative for visual disturbance. Respiratory: Negative for cough and shortness of breath. Cardiovascular: Negative for chest pain, palpitations and leg swelling. Gastrointestinal: Negative for constipation, diarrhea, nausea and vomiting. Endocrine: Negative for polydipsia and polyuria. Genitourinary: Negative for dysuria. Skin: Negative for rash and wound. Neurological: Positive for numbness. Psychiatric/Behavioral: Positive for sleep disturbance (occasionally). The patient is not nervous/anxious. Last saw in service educator in [place] unsure of when Nursing Assessment: Physical Exam Present in office today for 6 week follow up DM . No concerns at this time. History of Present Illness Type 2 diabetes: This is a followup visit to the office. She was diagnosed with diabetes at age 30. No family history of diabetes in first-degree relatives though notes aunts, uncles, cousins with diabetes. She is currently taking metformin 1000 mg twice a day, pioglitazone 30 mg daily, Jealousy 0.75 mg weekly, and Jardiance 10 mg daily. She states that she could not handle the weight gain that she experienced with insulin therapy. Hemoglobin A1c = 12.2%, up from 9.1% (this was reported by patient as done in May 2021 at PCP's office), down from 15.4%. We sent her for routine blood work showing fasting blood sugar = 341 mg/dL, no anemia. Previously C-peptide level = 2 with fasting blood sugar of 386 mg/dL and normal renal function. Last visit with ophthalmology was sometime in 2020, she notes that the eye doctor is watching a couple of spots in the eyes. Complains of some neuropathy to 3 toes on the left foot but does not follow with podiatry. Last met with a visual educator a few years ago. She reports she eats 3 times a day and a snack at bedtime. No sugary drinks. She states she is eating a very low carb diet. She has a bottle of water with her in the exam room today. He notes on her A1c went up to 15% she fell off the wagon and was eating many high carb foods. She does have a history of DKA in March 2021 and has a history of fatty liver disease. Blood pressure at target today, she is taking lisinopril 2.5 mg daily. CGM download today shows time in target range at 0%. Persistent hyperglycemia throughout all time frames. There is improvement since we added GLP-1, SGLT2, and other medications, she went from 98% of her blood sugars being very high to 94% of her blood sugars. GMI = 11.3 concerns for [place] syndrome: Dexamethasone suppression test negative, although midnight salivary cortisol did show some minor elevation. Hyperlipidemia: triglycerides = 406 mg/dL. Not currently on statin therapy as she reports she cannot tolerate statins. Review of Systems Nurse Note: Review of Systems Constitutional: Negative for fatigue and unexpected weight change (gained). Eyes: Negative for visual disturbance. Respiratory: Negative for cough and shortness of breath. Cardiovascular: Negative for chest pain, palpitations and leg swelling. Gastrointestinal: Negative for constipation, diarrhea, nausea and vomiting. Endocrine: Negative for polydipsia and polyuria. Genitourinary: Negative for dysuria. Skin: Negative for rash and wound. Neurological: Positive for numbness. Psychiatric/Behavioral: Positive for sleep disturbance (occasionally). The patient is not nervous/anxious. Last saw in service educator in [place] unsure of when Nursing Assessment: Physical Exam Present in office today for 6 week follow up DM . No concerns at this time. Vitals: Blood pressure 141/65, pulse 112, weight 93.6 kg (206 lb 6.4 oz). Physical Exam Vitals and nursing note reviewed. Constitutional: General: She is not in acute distress. Appearance: She is not diaphoretic. HENT: Head: Normocephalic. Pulmonary: Effort: Pulmonary effort is normal. Skin: General: Skin is warm and dry. Comments: Mild acanthosis noted to posterior neck. [place] cervical fat pad noted. Neurological: Mental Status: She is alert and oriented to person, place, and time. Psychiatric: Mood and Affect: Mood normal. Behavior: Behavior normal. Thought Content: Thought content normal. Neurological Exam Mental Status Alert. Oriented to person, place, and time. Assessment and Plan Type 2 diabetes: Uncontrolled type 2 diabetes. At this point, she is declining insulin therapy. States the weight gain will cause severe depression with far-reaching consequences for her. As such, we are attempting to use other relations although there chances of success are limited. We will increase Trulicity to 1.5 mg weekly. Increase glipizide to 10 mg twice a day. Continue was on 30 mg daily and metformin thousand grams twice a day. Continue Jardiance 10 mg daily. Follow-up in 2 months with repeat blood work. Reinforced low-carb/higher protein diet. Hyperlipidemia: We discussed her previously significantly elevated LDL. Would recommend statin therapy though she is unable to tolerate. At this time not willing to retrial. We discussed options such as PCSK9 inhibitors with Amadeo. She would like to research these options. documented in this encounter [facility] 02-03-2022 Procedure note Associated Ord er(s): MA CONTINUOUS GLUCOSE MONITORING ANALYSIS I&R CGM download her showing 0% of blood sugars at target range, 6% high, 94% very high, GMI = 11.3%, no hypoglycemia. There is hyperglycemia at all timeframes. Small response to medications last visit, we will increased doses of GLP-1 and sulfonylurea. Insulin therapy recommended, but declined by patient. [facility] 02-03-2022 Procedure note Associated Ord er(s): MA CONTINUOUS GLUCOSE MONITORING ANALYSIS I&R CGM download her showing 0% of blood sugars at target range, 6% high, 94% very high, GMI = 11.3%, no hypoglycemia. There is hyperglycemia at all timeframes. Small response to medications last visit, we will increased doses of GLP-1 and sulfonylurea. Insulin therapy recommended, but declined by patient. documented in this encounter [facility] 12-09-2021 History and physical note dirk [facility] 12-09-2021 History and physical note dirk documented in this encounter [facility] 12-09-2021 History of Presen t illness Narrative Nurse Note: Review of Systems Constitutional: Positive for unexpected weight change (gained). Negative for fatigue. Eyes: Negative for visual disturbance. Respiratory: Negative for cough and shortness of breath. Cardiovascular: Negative for chest pain and leg swelling. Gastrointestinal: Negative for constipation, diarrhea, nausea and vomiting. Endocrine: Positive for polyuria. Negative for polydipsia. Skin: Negative for rash. Neurological: Negative for numbness. Psychiatric/Behavioral: Positive for sleep disturbance (occasionally). Last saw in service educator in [place] unsure of when Nursing Assessment: Physical Exam History of Present Illness Diabetes Type 2 diabetes: This is a followup visit to the office. She was diagnosed with diabetes at age 30. No family history of diabetes in first-degree relatives though notes aunts, uncles, cousins with diabetes. She is currently taking metformin 1000 mg twice a day, pioglitazone 30 mg daily and Humalog 10 units plus sliding scale of 2/50/200. She states that she could not handle the weight gain that she experienced with insulin therapy. Last visit we discontinued glipizide 5 mg twice Hemoglobin A1c = 12.2%, up from 9.1% (this was reported by patient as done in May 2021 at PCP's office), down from 15.4%. We sent her for routine blood work showing fasting blood sugar = 341 mg/dL, no anemia. Previously C-peptide level = 2 with fasting blood sugar of 386 mg/dL and normal renal function. Last visit with ophthalmology was sometime in 2020, she notes that the eye doctor is watching a couple of spots in the eyes. Complains of some neuropathy to 3 toes on the left foot but does not follow with podiatry. Last met with a visual educator a few years ago. She reports she eats 3 times a day and a snack at bedtime. No sugary drinks. She states she is eating a very low carb diet. She has a bottle of water with her in the exam room today. He notes on her A1c went up to 15% she fell off the wagon and was eating many high carb foods. She does have a history of DKA in March 2021 and has a history of fatty liver disease. Blood pressure at target today, she is taking lisinopril 2.5 mg daily. CGM download today shows time in target range at 0%. Persistent hyperglycemia throughout all time frames. concerns for [place] syndrome: Dexamethasone suppression test negative, although midnight salivary cortisol did show some minor elevation. Hyperlipidemia: triglycerides = 406 mg/dL. Not currently on statin therapy as she reports she cannot tolerate statins. Review of Systems Nurse Note: Review of Systems Constitutional: Positive for unexpected weight change (gained). Negative for fatigue. Eyes: Negative for visual disturbance. Respiratory: Negative for cough and shortness of breath. Cardiovascular: Negative for chest pain and leg swelling. Gastrointestinal: Negative for constipation, diarrhea, nausea and vomiting. Endocrine: Positive for polyuria. Negative for polydipsia. Skin: Negative for rash. Neurological: Negative for numbness. Psychiatric/Behavioral: Positive for sleep disturbance (occasionally). Last saw in service educator in [place] unsure of when Nursing Assessment: Physical Exam Vitals: Blood pressure 120/80, resp. rate 16, height 1.702 m (5' 7.01 ), weight 95.7 kg (211 lb). Physical Exam Vitals and nursing note reviewed. Constitutional: General: She is not in acute distress. Appearance: She is not diaphoretic. HENT: Head: Normocephalic. Pulmonary: Effort: Pulmonary effort is normal. Skin: General: Skin is warm and dry. Comments: Mild acanthosis noted to posterior neck. Dorso cervical fat pad noted. Neurological: Mental Status: She is alert and oriented to person, place, and time. Psychiatric: Mood and Affect: Mood normal. Behavior: Behavior normal. Thought Content: Thought content normal. Neurological Exam Mental Status Alert. Oriented to person, place, and time. Assessment and Plan Type 2 diabetes: Uncontrolled type 2 diabetes. At this point, she is declining insulin therapy. States the weight gain will cause severe depression with far-reaching consequences for her. We discussed the therapy options, including using GLP-1 with SGLT2 along with TZD Sulfonylurea, and metformin. It appears Trulicity and Jardiance her on her plan. We discussed side effect and mechanism of action of Trulicity, including incidence of nausea and risk of pancreatitis. We discussed Jardiance, including the need for hydration and the risk of mycotic genital infections. Continue to reinforce low-carb diet with a lot of hydration, we will follow-up in 5 weeks with another CGM download to determine response. Hyperlipidemia: We discussed her previously significantly elevated LDL. Would recommend statin therapy though she is unable to tolerate. At this time not willing to retrial. We discussed options such as PCSK9 inhibitors with Zetia. She would like to research these options. documented in this encounter [facility] 12-09-2021 Miscellaneous Notes Addended by: KARLI FARMER on: 12/09/2021 03:49 PM Modules accepted: Orders documented in this encounter [facility] 12-09-2021 Note Addended by: KARLI FARMER on: 12/09/2021 03:49 PM Modules accepted: Orders [facility] 12-09-2021 Procedure note Associated Ord er(s): MA CONTINUOUS GLUCOSE MONITORING ANALYSIS I&R CGM download shows 0% of blood sugars at target, 1% high, 99% very high. Based on CGM download, we need to intensify pharmacologic therapy. She is already on a low-carb diet. [facility] 12-09-2021 Procedure note Associated Ord er(s): MA CONTINUOUS GLUCOSE MONITORING ANALYSIS I&R CGM download shows 0% of blood sugars at target, 1% high, 99% very high. Based on CGM download, we need to intensify pharmacologic therapy. She is already on a low-carb diet. documented in this encounter [facility] 10-28-2021 History of Presen t illness Narrative Nurse Note: Review of Systems Constitutional: Positive for unexpected weight change. Negative for fatigue. Eyes: Negative for visual disturbance. Respiratory: Negative for cough and shortness of breath. Cardiovascular: Negative for chest pain and leg swelling. Gastrointestinal: Negative for constipation, diarrhea, nausea and vomiting. Endocrine: Positive for polyuria. Negative for polydipsia. Skin: Negative for rash. Neurological: Positive for numbness. Psychiatric/Behavioral: Positive for sleep disturbance. Patient has seen a in service educator in [place] 10 years ago Nursing Assessment: Physical Exam History of Present Illness Diabetes Type 2 diabetes: This is her fourth visit to the office. She was diagnosed with diabetes at age 30. No family history of diabetes in first-degree relatives though notes aunts, uncles, cousins with diabetes. She is currently taking metformin 1000 mg twice a day and Lantus 50 units daily (prescribed Lantus 40 units twice a day though has self titrated down), pioglitazone 30 mg daily and Humalog 10 units plus sliding scale of 2/50/200. Last visit we discontinued glipizide 5 mg twice a day after starting prandial insulin. Reports that she previously was on prandial insulin though took herself off of this in mid June 2021. She reports significant weight gain and neuropathic-type pains in her abdomen due to taking multiple daily injections. Hemoglobin A1c = 12.2%, up from 9.1% (this was reported by patient as done in May 2021 at PCP's office), down from 15.4%. We sent her for routine blood work showing fasting blood sugar = 341 mg/dL, no anemia. Previously C-peptide level = 2 with fasting blood sugar of 386 mg/dL and normal renal function. Last visit with ophthalmology was sometime in 2020, she notes that the eye doctor is watching a couple of spots in the eyes. Complains of some neuropathy to 3 toes on the left foot but does not follow with podiatry. Last met with a visual educator a few years ago. She reports she eats 3 times a day and a snack at bedtime. No sugary drinks. He notes on her A1c went up to 15% she fell off the wagon and was eating many high carb foods. She does have a history of DKA in March 2021 and has a history of fatty liver disease. Blood pressure at target today, she is taking lisinopril 2.5 mg daily. CGM download today shows time in target range at 0%. Persistent hyperglycemia throughout all time frames. She is upset today because she has gained 24 pounds since fall when she was started on insulin therapy. She is up 6 pounds since last visit. She reports she has always carried her weight around the middle with very small arms and legs. She does have complaints of buffalo hump that appear to couple of years ago. She does have stretch cruz. Reports normal menses throughout life up until menopause. She complains that all of her weight gain is in her abdomen. This weight gain has made it very uncomfortable for her to be active with gardening. We did a late-night salivary cortisol test which came back at 0.160 which is slightly above the cut off for normal although the result mentioned the sample was contaminated with blood which can increase cortisol measurement. Hyperlipidemia: triglycerides = 406 mg/dL. Not currently on statin therapy as she reports she cannot tolerate statins. Review of Systems Nurse Note: Review of Systems Constitutional: Positive for unexpected weight change. Negative for fatigue. Eyes: Negative for visual disturbance. Respiratory: Negative for cough and shortness of breath. Cardiovascular: Negative for chest pain and leg swelling. Gastrointestinal: Negative for constipation, diarrhea, nausea and vomiting. Endocrine: Positive for polyuria. Negative for polydipsia. Skin: Negative for rash. Neurological: Positive for numbness. Psychiatric/Behavioral: Positive for sleep disturbance. Patient has seen a in service educator in [place] 10 years ago Nursing Assessment: Physical Exam Vitals: Blood pressure 118/80, pulse 93, resp. rate 18, height 1.702 m (5' 7.01 ), weight 98.2 kg (216 lb 6.4 oz). Physical Exam Vitals and nursing note reviewed. Constitutional: General: She is not in acute distress. Appearance: She is not diaphoretic. HENT: Head: Normocephalic. Pulmonary: Effort: Pulmonary effort is normal. Skin: General: Skin is warm and dry. Comments: Mild acanthosis noted to posterior neck. Dorso cervical fat pad noted. Neurological: Mental Status: She is alert and oriented to person, place, and time. Psychiatric: Mood and Affect: Mood normal. Behavior: Behavior normal. Thought Content: Thought content normal. Neurological Exam Mental Status Alert. Oriented to person, place, and time. Assessment and Plan Type 2 diabetes: Uncontrolled type 2 diabetes. We discussed goal A1c of <7%. She is well versed on the negative health outcomes of uncontrolled diabetes. We had a long discussion today regarding treatment for diabetes. We discussed beta cells and their functional capacity and her low normal C-peptide level despite hyperglycemia. Today we will increase her Lantus up to 60 units daily and increase Humalog to 20 units with sliding scale of 2/50/200. For now we will continue pioglitazone. Hopefully if triglycerides decrease in the future we can start GLP-1 receptor agonist. I am concerned about her central weight gain. With this in conjunction with the dorso cervical fat pad, diabetes, insulin resistance we will screen for Alisia's syndrome with dexamethasone suppression test as her late-night salivary cortisol test came back mildly elevated though was contaminated with blood. We will see her back in 4-6 weeks with lab work and CGM download. We did discuss treatment of hypoglycemia using the 15/15 rule as well. Hyperlipidemia: We discussed her previously significantly elevated LDL. Would recommend statin therapy though she is unable to tolerate. At this time not willing to retrial. We discussed options such as PCSK9 inhibitors with Amadeo. She would like to research these options. documented in this encounter [facility] 06-02-2021 Evaluation note Includes: Assessments for all patient encounters Findings Assessment of body mass inde x [Body mass index [BMI] 31.0-31.9, adult] Medical Established Patient with Kavita Meier CNP 06/02/2021 Type 2 diabetes mellitus Medical Establi shed Patient with Kavita Hardeep OBJECTIVE C DEVELOPER 06/02/2021 Assessment of body mass inde x [Body mass index [BMI] 31.0-31.9, adult] Medical Established Patient with Kavita Hardeep OBJECTIVE C DEVELOPER 05/18/2021 Assessment of body mass inde x [Body mass index [BMI] 29.0-29.9, adult] Medical New Patient with Kavita Hardeep OBJECTIVE C DEVELOPER 04/21/2021 Type 2 diabetes mellitus Medical New Pat ient with Kavita Hardeep OBJECTIVE C DEVELOPER 04/21/2021 [facility] Work Phone: 1(504) 630-632411-02-2021 Evaluation note Includes: Assessments for all patient encounters Findings Encounter Date Assessment of body mass inde x [Body mass index [BMI] 31.0-31.9, adult] Medical Established Patient with Kavita Hardeep OBJECTIVE C DEVELOPER 05/18/2021 Assessment of body mass inde x [Body mass index [BMI] 29.0-29.9, adult] Medical New Patient with Kavita Hardeep OBJECTIVE C DEVELOPER 04/21/2021 Type 2 diabetes mellitus Medical New Pat ient with Kavita Hardeep OBJECTIVE C DEVELOPER 04/21/2021 [facility] Work Phone: 1(299) 631-478410-06-2021 Evaluation note Includes: Assessments for all patient encounters Findings Encounter Date Assessment of body mass inde x [Body mass index [BMI] 29.0-29.9, adult] Medical New Patient with Kavita Hardeep OBJECTIVE C DEVELOPER 04/21/2021 Type 2 diabetes mellitus Medical New Pat ient with Kavita Hardeep OBJECTIVE C DEVELOPER 04/21/2021 [facility] Work Phone: 1(342) 736-291410-06-2021 History general Narrative - Reported Includes: Medical History in patient's chart Description Last Updated History of diabetes mellitus 04/21/2021 Previous hospitalizations [facility] 04-16-21 04/21/2021 [facility] Work Phone: 1(351) 534-473310-01-2021 History general Narrative - Reported Includes: Medical History in patient's chart Description Last Updated History of diabetes mellitus 04/21/2021 Previous hospitalizations [facility] 04-16-21 04/21/2021 [facility] Work Phone: 1(833) 544-205210-01-2021 History of Present illness Narrative* Gali Knapp LSW - 04/16/2021 9:58 AM EDT Acknowledge pt discharge to home today. Glucometer prescription sent for pt and she has [employer] so meds should be covered well for her. No further discharge needs expressed by pt. Gali Ortiz MSWLSW 04/16/2021 * Angelika Bunch RN - 04/16/2021 8:47 AM EDT Discharge instructions provided; pt verbalizes understanding. Pt discharged to private vehicle withall documented belongings. * Roverto Barbour MD - 04/16/2021 6:22 AM EDT Hospitalist Progress Note 04/16/2021 6:22 AM Subjective: Admit Date: 04/13/2021 PCP: No primary care provider on file. Interval History: Anu states she is feeling back to normal. No nausea and I ate everything they would give me . No chest pain or SOB. Bowels moving, no trouble urinating. She states she hopes to go home today. Diet: ADULT DIET; Regular; 3 carb choices (45 gm/meal) Medications: Scheduled Meds: potassium chloride 40 mEq Oral Once insulin glargine 20 Units SubCUTAneous QAM AC insulin lispro 0-18 Units SubCUTAneous TID WC insulin lispro 0-9 Units SubCUTAneous Nightly insulin glargine 50 Units SubCUTAneous Nightly lidocaine 1 patch TransDERmal Daily lisinopril 2.5 mg Oral Daily aspirin 81 mg Oral Daily Vitamin D 2,000 Units Oral Daily vitamin B-6 50 mg Oral Daily enoxaparin 40 mg SubCUTAneous Daily Continuous Infusions: dextrose Patient's current medications documented, reviewed, and updated. CBC: Recent Labs 04/13/21 1830 04/14/21 0526 WBC 11.6* 8.2 HGB 17.0* 13.6 PLT 355 285 BMP: Recent Labs 04/14/21 1740 04/15/21 0405 04/16/21 0456 NA 132* 135 138 K 3.2* 3.4* 3.5* CL 104 106 103 CO2 17* 19* 25 BUN 9 7 8 CREATININE 0.53 0.45* 0.44* GLUCOSE 243* 261* 303* Hepatic: Recent Labs 04/13/21 1830 AST 11 ALT 15 BILITOT 0.22* ALKPHOS 144* Troponin: No results for input(s): TROPONINI in the last 72 hours. BNP: No results for input(s): BNP in the last 72 hours. Lipids: No results for input(s): CHOL, HDL in the last 72 hours. Invalid input(s): LDLCALCU INR: No results for input(s): INR in the last 72 hours. Objective: Vitals: BP 128/65 Pulse 114 Temp 97.7 F (36.5 C) (Oral) Resp 16 Ht 5' 5 (1.651 m) Wt 183lb (83 kg) SpO2 99% BMI 30.45 kg/m General appearance: alert and cooperative with exam HEENT: Head: Normocephalic, no lesions, without obvious abnormality. Eye: Normal external eye, conjunctiva, lids cornea, SYD. Nose: Normal external nose, mucus membranes and septum. Neck: no adenopathy, no carotid bruit and supple, symmetrical, trachea midline Lungs: clear to auscultation bilaterally Heart: regular rate and rhythm, S1, S2 normal and II/ systolic murmur. Abdomen: soft, non-tender; bowel sounds normal; no masses, no organomegaly Extremities: extremities normal, atraumatic, no cyanosis or edema Neurologic: Mental status: Alert, oriented, thought content appropriate Assessment and Plan: 1. Diabetic Ketoacidosis - improved on Diabetic Ketoacidosis order set. Changed to Lantus with Humalog sliding scale. Has not taken diabetic medication in a year. 2. Dehydration - improved after several liters of fluid. 3. Elevated BP since admission - improved on Lisinopril. 4. Hypokalemia - on replacement. 5. Hypophosphatemia - on replacement. 6. Left Sacroiliitis - reproducible pain over the left SI joint. Lidoderm patch ordered with improvement in pain. 7. 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 8. Hepatic steatosis - secondary to uncontrolled DM II. 9. Intractable nausea / vomiting - improved. 10. Mild aortic stenosis on ECHO - discussed with Anu. She was told she will need a yearly ECHO. Plan: 1. Discharge home today. DVT prophylaxis: [x] Lovenox [] SCDs [] SQ Heparin [] Encourage ambulation, low risk for DVT, no chemical or mechanical prophylaxis necessary [] Already on Anticoagulation Patient Active Problem List: Blood type A+ Diabetes mellitus (HCC) Asthma Hyperlipidemia Diabetic ketoacidosis without coma associated with type 2 diabetes mellitus (HCC) Roverto Barbour MD, MD [facility] Hospitalist * Maria Guadalupe Wolfe RN - 04/15/2021 3:18 PM EDT Pt up ambulating in hallway, found walking down by pharmacy and in waiting room. Instructed pt to stay within the unit. Verbalizes understanding. * Maria Guadalupe Wolfe RN - 04/15/2021 11:45 AM EDT Pt has friend visiting that brought her [employer] for lunch, pt also orders food from cafeteria. Educated on importance of nurses checking her blood sugar prior to her eating. Pt states No, it's supposed to be 2 hours after I eat. Explained to patient that we check her sugars prior to her eating and base her insulin coverage off of that. Pt verbalizes understanding. Friend remains visiting at bedside. Call light in reach. * Roverto Barbour MD - 04/15/2021 6:03 AM EDT Hospitalist Progress Note 04/15/2021 6:03 AM Subjective: Admit Date: 04/13/2021 PCP: No primary care provider on file. Interval History: Anu states she is feeling much better. Nausea has resolved and she states she is feeling much stronger. No chest pain or SOB. BP has been stable and HR is staying < 100 at rest. She had diabetic education yesterday. Diet: ADULT DIET; Regular; 3 carb choices (45 gm/meal) Medications: Scheduled Meds: lidocaine 1 patch TransDERmal Daily lisinopril 2.5 mg Oral Daily insulin glargine 40 Units SubCUTAneous Nightly insulin lispro 0-12 Units SubCUTAneous TID WC insulin lispro 0-6 Units SubCUTAneous Nightly aspirin 81 mg Oral Daily Vitamin D 2,000 Units Oral Daily vitamin B-6 50 mg Oral Daily enoxaparin 40 mg SubCUTAneous Daily Continuous Infusions: dextrose 0.9% NaCl with KCl 20 mEq 75 mL/hr at 04/14/211955 Patient's current medications documented, reviewed, and updated. CBC: Recent Labs 04/13/21 1830 04/14/21 0526 WBC 11.6* 8.2 HGB 17.0* 13.6 PLT 355 285 BMP: Recent Labs 04/14/21 1330 04/14/21 1740 04/15/21 0405 NA 132* 132* 135 K 3.2* 3.2* 3.4* CL 103 104 106 CO2 17* 17* 19* BUN 12 9 7 CREATININE 0.61 0.53 0.45* GLUCOSE 158* 243* 261* Hepatic: Recent Labs 04/13/21 1830 AST 11 ALT 15 BILITOT 0.22* ALKPHOS 144* Troponin: No results for input(s): TROPONINI in the last 72 hours. BNP: No results for input(s): BNP in the last 72 hours. Lipids: No results for input(s): CHOL, HDL in the last 72 hours. Invalid input(s): LDLCALCU INR: No results for input(s): INR in the last 72 hours. Objective: Vitals: BP (!) 120/51 Pulse 95 Temp 98.6 F (37 C) (Oral) Resp 18 Ht 5' 5 (1.651 m) Wt 183 lb (83 kg) SpO2 97% BMI 30.45 kg/m General appearance: alert and cooperative with exam HEENT: Head: Normocephalic, no lesions, without obvious abnormality. Eye: Normal external eye, conjunctiva, lids cornea, SYD. Nose: Normal external nose, mucus membranes and septum. Neck: no adenopathy, no carotid bruit and supple, symmetrical, trachea midline Lungs: clear to auscultation bilaterally Heart: regular rate and rhythm, S1, S2 normal and II/ systolic murmur. Abdomen: soft, non-tender; bowel sounds normal; no masses, no organomegaly , over wt Extremities: extremities normal, atraumatic, no cyanosis or edema Neurologic: Mental status: Alert, oriented, thought content appropriate Assessment and Plan: 1. Diabetic Ketoacidosis - improved on Diabetic Ketoacidosis order set. Changed to Lantus with Humalog sliding scale. Has not taken diabetic medication in a year. 2. Dehydration - improved after several liters of fluid. 3. Elevated BP since admission - started on Lisinopril. 4. Hypokalemia - on replacement. 5. Hypophosphatemia - on replacement. 6. Left Sacroiliitis - reproducible pain over the left SI joint. Lidoderm patch ordered. 7. 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 8. Hepatic steatosis - secondary to uncontrolled DM II. 9. Intractable nausea / vomiting - improved. 10. Mild aortic stenosis on ECHO. Plan: 1. Add an additional dose of Lantus this am. 2. Saline lock IV. 3. DC manager cardiac cath. 4. Increase ambulation this am. 5. Will make sure her strength is back to normal and she is able to eat / drink today without nausea. Repeat labs tomorrow with plans for discharge tomorrow. Patient continues to require in patient admission secondary to increasing medication for better diabetic control, making sure she can eat / drink without nausea, and ambulation for strengthening. DVT prophylaxis: [x] Lovenox [] SCDs [] SQ Heparin [] Encourage ambulation, low risk for DVT, no chemical or mechanical prophylaxis necessary [] Already on Anticoagulation Patient Active Problem List: Blood type A+ Diabetes mellitus (HCC) Asthma Hyperlipidemia Diabetic ketoacidosis without coma associated with type 2 diabetes mellitus (HCC) Roverto Barbour MD, MD [facility] Hospitalist * Juan Salamanca RN - 04/14/2021 7:22 PM EDT No new orders at this time. * Juan Salamanca RN - 04/14/2021 6:47 PM EDT Call placed to Dr. Barbour for low blood pressures. Awaiting call back. * Juan Salamanca RN - 04/14/2021 5:[address] Barbour calls to check on patient, adds beta-hydroxybuturate to next lab draw and start normal saline with 20 MEQ potassium at 100 ml/hr. * Abbie Falk RN - 04/14/2021 4:50 PM EDT DIABETES EDUCATION Met with pt for approx 25 minutes for inpatient diabetes education. Anu has been diabetic since she was 30. She was able to correctly describe what diabetes is. Approx one year ago she stopped taking her diabetes medication because it wasn't leveling out my blood sugars, so why should I take it if it's not working. Reviewed how it is treated and the importance of keeping blood sugars in target range to delay or avoid some of the complications of diabetes. States she did the keto diet but was not checking her sugars. Discussed why the keto diet is not recommended for diabetes management. Reviewed hyper/hypoglycemia symptoms and treatments. Encouraged to check her blood sugars and to keepa log. Discussed all SAFE handouts. Denies questions. Labs: Lab Results Component Value Date LABA1C 9.1 10/17/2018 LABA1C 8.7 (H) 06/16/2018 LABA1C 7.7 09/06/2017 Lab Results Component Value Date LABMICR CANNOT BE CALCULATED 06/16/2018 CREATININE 0.61 04/14/2021 Did Dietitian see patient? [x] Yes [] No Does patient have a monitor and strips? [] Yes [x] No Frequency of monitoring at home: Glucometer outdated Can patient afford medications? [x] Yes [] No Medication taking at home: [x] Oral medication [x] Insulin [] Other None Has not taken in over a year. New to insulin? [] Yes [x] No Instructed on insulin use? [x] Yes [] No [] N/A SAFE HANDOUTS: [x] Where do I Begin? booklet [x] What is Diabetes? [x] What is Insulin? [x] Hypo- hyperglycemia [x] Diabetes pills [x] How to Check your sugar [x] Be safe with needles [x] Sick Days with Diabetes [x] When to Call the Doctor [x] Other [x] Type 2 DM and adding Insulin [x] Carbohydrate Counting for People with Diabetes Abbie Falk RN [facility] Diabetes clinic educator 04/14/2021 4:54 PM * Gali Knapp LSW - 04/14/2021 11:39 AM EDT SW met with pt to complete assessment during quality rounds with manager specialty. Pt is alert and oriented but not happy with visit because she is trying to sleep. Pt does cooperate with assessment. Pt lives alone in her home in [place]. Pt reports that she uses no DME or community services at home.Pt reports that her glucometer is outdated. Pt drives and is able to get herself to appointments. Pt is a full code and is currently without a PCP. manager specialty to find a provider for her and ptreports that she will go wherever she needs to see someone. Pt does not have advance directives andstates dtr [place] would be her decision maker. ACP note completed with pt. Pt reports that her medications should be covered by insurance. Pt has [employer] and copays should be low. Pt plans to return home at discharge. Pt identifies no discharge needs or concerns at this time other than need for PCP and glucometer. SW will follow and remain available. Gali ALEMAN 04/14/2021 * Juan Salamanca, YARELI - 04/14/2021 11:12 AM EDT Potassium level 2.9. Potassium being given per protocol. * Joe Oquendo RN - 04/14/2021 11:03 AM EDT RN phones Yue Patel to check if office would accept pt. Per Arnold, if one provider dismissesa patient then the dismissal stands for the entire office. Pt was dismissed from practice per Ashley. * Joe Oquendo RN - 04/14/2021 10:00 AM EDT Quality flow rounds held on 04/14/21 Anu Gonzalez is admitted for DKA Length of stay 1. Education: Needed Education: diabetes meds, follow up,diet Do you have any questions regarding your plan of care while at the hospital? denies Planned Disposition: [x] Home when able [] Swing Bed [] ECF/SNF [] Other/TBD Barriers to Discharge: Can you afford your medications? Yes, pt states she is currently not taking any medications. Do you have transportation to follow up appointments? Drives self Do you need any new equipment at home? denies Current equipment includes glucometer, pt states it's old and I don't use it' Do you have a living will or durable power of pad machine offbearer for healthcare? denies If yes do we have a copy on file? n/a Do you or your family have any questions or concerns we haven't already discussed? Denies Lives alone. Pt states she has no PCP, states Ade fired me . Pt is agreeable to have data analyst report writer setup a follow up appt with a new provider. Pt states she has no preference with who and either Katy Cohen is ok. Gali ALEMAN and data analyst report writer present for rounding. * Juan Salamanca RN - 04/14/2021 9:22 AM EDT Complaints of dizziness upon standing followed by nausea and low BP of 77/46. Dr. Barbour called and order received for increase in fluids and monitor at this time. * Juan Salamanca RN - 04/14/2021 9:[address] Barbour called to clarify insulin orders. Orders clarified to decrease d5 0.45 normal saline to 100ml per hour, continue insulin drip at current multiplier, and start diabetic diet. * Shirley Marin RD, LD - 04/14/2021 8:07 AM EDT Comprehensive Nutrition Assessment Type and Reason for Visit: Initial, Positive Nutrition Screen, Consult, Patient Education Nutrition Recommendations/Plan: 1. Continue current diet. 2. Provided basic CC diet education, Pt encouraged to follow 45 grams of carbohydrate per meal at home, eat breakfast within 1 hour, and have meals 4.5-5 hours apart, and include an evening snack. 3. Recommend outpatient comprehensive diabetes education. Nutrition Assessment: Altered nutrition related labs r/t endocrine dysfunction aeb glucose 437 at admission. Pt admitted with DKA. A1c pending, last available A1c 9.1 in 2019. Glucose has improved to215. Pt states she has had diabetes education in the past. She fasts at times and does not eat breakfast. Seems to be following the keto diet and thought 45 grams per meal carbohydrate was way too much. Discussed basic CC. Pt encouraged to get refresher on CC. States I eat when I get hungry. It doesn't matter if I eat or not, my blood sugars are high. I encouraged her to eat 3 meals per dayat consistent times with consistent carbohydrates, not to eat or not depending on blood sugars. Malnutrition Assessment: Malnutrition Status: At risk for malnutrition (Comment) Context: Acute Illness Findings of the 6 clinical characteristics of malnutrition: Energy Intake: Mild decrease in energy intake (Comment) (4 days N/V prior to admission) Weight Loss: No significant weight loss Body Fat Loss: No significant body fat loss Muscle Mass Loss: No significant muscle mass loss Fluid Accumulation: No significant fluid accumulation Restaurant Host Strength: Not Performed Estimated Daily Nutrient Needs: Energy (kcal): 1231-0761 (20-23/kg); Weight Used for Energy Requirements: Current Protein (g): 74-86g (1.3-1.5g/kg); Weight Used for Protein Requirements: [place] Fluid (ml/day): 1817 ml; Method Used for Fluid Requirements: 1 ml/kcal Nutrition Related Findings: appears well nourished, eating clear liquid diet at breakfast Wounds: None Current Nutrition Therapies: ADULT DIET; Clear Liquid; 3 carb choices (45 gm/meal) Anthropometric Measures: Height: 5' 5 (165.1 cm) Current Body Weight: 174 lb (78.9 kg) Admission Body Weight: 174 lb (78.9 kg) (187# noted as actual at admission, but likely stated, lastPt wt 187# in 2019 historical weights) Usual Body Weight: 187 lb (84.8 kg) (03/04/2020) [place] Body Weight: 125 lbs; % [place] Body Weight 139.2 % BMI: 29 BMI Categories: Overweight (BMI 25.0-29.9) Nutrition Diagnosis: Altered nutrition-related lab values related to endocrine dysfuntion as evidenced by lab values Nutrition Interventions: Food and/or Nutrient Delivery: Continue Current Diet Nutrition Education/Counseling: Education initiated Coordination of Nutrition Care: Continue to monitor while inpatient Goals: PO > 75% of meals Recent Labs 04/13/21182904/13/21 18304/13/21202804/13/21 2120 04/14/21 0130 04/14/21 0526 NA 130* -- -- -- 133* 132* K 4.4 -- -- -- 3.2* 3.2* CL 91* -- -- -- 105 105 CO2 6* -- -- -- 11* 16* BUN 21* -- -- -- 13 11 CREATININE 0.89 -- -- -- 0.56 0.51 GLUCOSE 437* -- < > 239 207* 215* ALT 15 -- -- -- -- -- ALKPHOS 144* -- -- -- -- -- GFR NOT REPORTED < > -- -- NOT REPORTED NOT REPORTED < > = values in this interval not displayed. Lab Results Component Value Date LABALBU 4.5 04/13/2021 Lab Results Component Value Date LABA1C 9.1 10/17/2018 Lab Results Component Value Date TRIG 218 06/16/2018 HDL 45 06/16/2018 Recent Labs 04/13/21 2216 04/13/21 2322 04/14/21 0023 04/14/21 0238 04/14/21 0340 04/14/21 0513 04/14/21 0630 04/14/21 0736 POCGLU 219* 186* 168* 205* 203* 211* 187* 173* Nutrition Monitoring and Evaluation: Behavioral-Environmental Outcomes: Readiness for Change, Beliefs and Attitutes Food/Nutrient Intake Outcomes: Food and Nutrient Intake Physical Signs/Symptoms Outcomes: Biochemical Data, Nausea or Vomiting, Weight Discharge Planning: Continue current diet, Recommend pursue outpatient diabetes education Contact: [phone] * Juan Salamanca RN - 04/14/2021 7:44 AM EDT In to check FSBS-patient states, No, I'm so tired of being poked-it hurts, you guys can't be doingthis all the time, it was just done. Nurse reviews protocol for DKA and need to check FSBS frequently; comforts patient. Allows FSBS at this time. * Vidhya Reyes RN - 04/14/2021 6:00 AM EDT Pt initially refuses BG finger stick. Veterinary Dentist educates pt on importance of hourly checks. Pt states how about every hour and a half? RN reiterates hospital and physician protocol and orders. After approx. 30 minutes, pt puts on light and allows RN to check BG. * Vidhya Reyes RN - 04/14/2021 5:22 AM EDT Pt voices concern to RN about frequent finger sticks throughout the night for BG checks and states can't you just leave me alone, I need to sleep . RN educates pt dangers of DKA, why frequent checksare necessary for with insuline drip, as well as lab draws for electrolyte monitoring. Pt rolls eyes and states whatever . RN attempts to spend more time educating pt, but pt refuses at this time. * Vidhya Reyes RN - 04/14/2021 4:55 AM EDT K ride rate decreased due to pt discomfort/c/o burning at IV site * Vidhya Reyes RN - 04/14/2021 2:23 AM EDT Verified dosing and appropriate mixing of sodium phosphate with Bernarda bonds at [place].Also verified X2 RN. * Vidhya Reyes RN - 04/13/2021 10:15 PM EDT Pt arrives to floor, report received from mae in ED. Pt ambulates to ICU bed independently. Pt c/o NPO diet status and hourly finger sticks for POCT. RN answers all questions, offers support. Vitals assessment and admission completed. Pt oriented to call light, verbalizes understanding offers noother complaints. Bed alarm at this time for safety. [facility] Phone: [phone]) 976-650109-30-2021 Hospital Discharge instructions* Instructions* Roverto Barbour MD - 04/15/2021 Discharge Instructions Admission Date: 04/13/2021 Discharge Date: 04/16/21 Disposition: Home Activity: As tolerated Diet: Diabetic Discharge Medication: Anu Gonzalez Home Medication Instructions EVETTE:[id number] Printed on:04/16/21 0639 Medication Information blood glucose monitor strips Test 4 times a day & as needed for symptoms of irregular blood glucose. Dispense sufficient amount for indicated testing frequency plus additional to accommodate PRN testing needs. Cholecalciferol (VITAMIN D3) 2000 units CAPS Take 1 capsule by mouth daily glucose monitoring (FREESTYLE FREEDOM) kit 1 kit by Does not apply route daily insulin glargine (LANTUS SOLOSTAR) 100 UNIT/ML injection pen Inject 40 Units into the skin 2 times daily insulin lispro (HUMALOG) 100 UNIT/ML injection vial 0 to 18 units per sliding scale. Lancets MISC 1 each by Does not apply route 4 times daily lisinopril (PRINIVIL;ZESTRIL) 2.5 MG tablet Take 1 tablet by mouth daily metFORMIN (GLUCOPHAGE-XR) 500 MG extended release tablet Take 1 tablet by mouth daily (with breakfast) NEEDLE, DISP, 30 G (BD DISP NEEDLES) 30G X 1/2 MISC Injection 5 times a day. vitamin B-6 (PYRIDOXINE) 50 MG tablet TAKE 1 TABLET BY MOUTH EVERY DAY Discharge Instructions: Take Lantus 40 units two times a day. Finger stick blood sugars before each meal with a Humalog sliding scale: 150 to 200 - 3 201 to 250 - 6 251 to 300 - 9 301 to 350 - 12 351 to 400 - 15 > 400 - 18 Take Lisinopril 2.5 mg by mouth daily. Take Metformin XR 500 mg daily. Activity: As tolerated. Diet: Diabetic. Appointment to be made with Dr. Monterroso in Urology to evaluate and treat kidney stones. Should have an ECHO yearly to evaluate Aortic stenosis. Follow Up: With your primary care physician (No primary care provider on file.) in 1 to 2 weeks. documented in [facility] Phone: evaluation note* Diagnosis Diabetic ketoacidosis without coma associated with diabetes mellitus due to underlying condition (HCC)- Primary Type 2 diabetes mellitus with complication, without long-term current use of insulin (HCC) Nephrolithiasis Calculus of kidney Diabetic ketoacidosis without coma associated with type 2 diabetes mellitus (HCC) documented in this encounter [employer] Phone: evaluation note Includes: Assessments for all patient encounters Findings Encounter Date Assessment of body mass inde x [Body mass index [BMI] 29.0-29.9, adult] Medical New Patient with Kavita Meier OBJECTIVE C DEVELOPER 04/21/2021 Type 2 diabetes mellitus Medical New Pat ient with Kavita Meier OBJECTIVE C DEVELOPER 04/21/2021 Health [facility] Work Phone: Evaluation note* Diagnosis Uncontrolled type 2 diabetes mellitus with hyperglycemia- Primary Mixed hyperlipidemia Obesity (BMI 30.0-34.9) Obesity, unspecified Durham syndrome Durham's syndrome documented in this encounter [facility]* Diagnosis Uncontrolled type 2 diabetes mellitus with hyperglycemia- Primary [facility]* Diagnosis Uncontrolled type 2 diabetes mellitus with hyperglycemia- Primary documented in this encounter [facility]* Diagnosis Dysuria Acute cystitis with hematuria Acute cystitis documented in this encounter [facility] [employer] Phone: evaluation note* Diagnosis Uncontrolled type 2 diabetes mellitus with hyperglycemia- Primary [facility]* Diagnosis DKA (diabetic ketoacidosis)- Primary Type II or unspecified type diabetes mellitus with ketoacidosis, not stated as uncontrolled Diabetic ketoacidosis without coma associated with type 2 diabetes mellitus Medical non-compliance Personal history of noncompliance with medical treatment, presenting hazards to health Metabolic acidosis Acidosis Mixed hyperlipidemia Diabetes mellitus, type 2 Type II or unspecified type diabetes mellitus without mention of complication, not stated as uncontrolled Metabolic acidosis Acidosis Electrolyte imbalance Electrolyte and fluid disorders not elsewhere classified Medical non-compliance Personal history of noncompliance with medical treatment, presenting hazards to health Diabetic ketoacidosis without coma associated with type 2 diabetes mellitus documented in this encounter [facility] [facility]* Diagnosis Acute sinusitis, recurrence not specified, unspecified location- Primary documented in this encounter [facility] [employer] Phone: History of Present illness Narrative History of Present Illness not supported for this document type No History of Present Illness [facility] Work Phone: Hospital Discharge instructions* Attachments The following attachments cannot be sent through Care Everywhere. * Sinusitis (Bruneian) [facility] [employer] Phone: Instructions Instructions not supported for this document type No Instructions [facility] Work Phone: Patient problem outcome Narrative Includes: Evaluations & Outcomes for active Goals No Outcomes [facility] Work Phone: Reason for referral (narrative)No Reason for Referral [facility] Work Phone: Review of systems Narrative - Reported Review of Systems not supported for this document type No Review of Systems [facility] Work Phone: Summary Purpose Family History No Family History Records Found Description Last Updated Maternal history of endocrine disorder 1 Maternal history of type 2 diabetes marleen itus 04/21/2021 Paternal history of endocrine disorder 1 Paternal history of type 2 diabetes marleen itus 04/21/2021 Advance Directives No Advanced Directives Records FoundDocuments on File Type Date Recorded Patient Director Of Staff Development Expl anation Advance Directives and Living Will Power of Welt Slasher Latest Code Status on File Code Status Date Activated Date Inactivated Comments Full Code 04/21/2016 9:39 AM 04/21/2016 12:42 PM Full Code 04/21/2016 7:07 AM 04/21/2016 9:39 AM Documents on File Type Date Recorded Patient Director Of Staff Development Expl anation Advance Directives and Living Will Power of Welt Slasher Latest Code Status on File Code Status Date Activated Date Inactivated Comments Full Code 04/21/2016 9:39 AM 04/21/2016 12:42 PM Full Code 04/21/2016 7:07 AM 04/21/2016 9:39 AM Documents on File Type Date Recorded Patient Director Of Staff Development Expl anation ACP-Advance Directive ACP-Power of Welt Slasher Latest Code Status on File Code Status Date Activated Date Inactivated Comments Full Code 04/13/2021 10:12 PM Full Code 04/21/2016 9:39 AM 04/21/2016 12:42 PM Healthcare Agents on File Name Relationship [facility] Agent [facility] Kong Gonzalez Child Primary Decision Maker Documents on File Type Date Recorded Patient Director Of Staff Development Expl anation ACP-Advance Directive ACP-Power of Welt Slasher Latest Code Status on File Code Status Date Activated Date Inactivated Comments Full Code 04/13/2021 10:12 PM 04/16/2021 12:23 PM Full Code 04/21/2016 9:39 AM 04/21/2016 12:42 PM Healthcare Agents on File Name Relationship Healthcare Agent Relationshi p Communication Kong Gonzalez Child Primary Decision Maker Healthcare Agents on File Name Relationship Healthcare Agent Relationshi p Communication Kong Gonzalez Child Primary Decision Maker Healthcare Agents on File Name Relationship Healthcare Agent Relationshi p Communication Kong Gonzalez Child Primary Decision Maker Latest Code Status on File Code Status Date Activated Date Inactivated Comments Full Code 06/21/2022 5:19 PM Healthcare Agents on File Name Relationship Healthcare Agent Relationshi p Communication Kong Gonzalez Child Primary Decision Maker Healthcare Agents on File Name Relationship Healthcare Agent Relationshi p Communication Kong Gonzalez Child Primary Decision Maker Assessments Diagnosis Renal colic Diagnosis Renal colic Reason for Referral Status Reason Specialty Diagnoses / Procedures Referred By Contact Referred To Contact Pending Review Radiology Diagnoses Renal colic Procedures CT ABDOMEN PELVIS WO CONTRAST Additional Contrast? None Vee Barriga W, DELIVERY DRIVER ASSISTANT - OBJECTIVE C DEVELOPER [address] [facility] [address] [place] [address] [place] [id number] Status Reason Specialty Diagnoses / Procedures Referred By Contact Referred To Contact Open Specialty Services Required Urology Diagnoses Nephrolithiasis Roverto Barbour MD [address] [place] [address] Mason Monterroso MD [address] [facility], [address] [place] [address] [facility] Urology - Mason Monterroso MD [address] [place] [address] Specialty Diagnoses / Procedures Referred By Contac t Referred To Contact Procedures INPATIENT ADMISSION NOTIFICATION Cecilio Saucedo MD [address] [place] [id number] Referral ID Status Reason Start Date Expiration Date V isits Requested Visits Authorized [id number] New Request 06/21/2022 07/16/2023 1 1 Specialty Diagnoses / Procedures Referred By Contac t Referred To Contact Procedures ECG Irvin Magana MD [address] [place] [address] Referral ID Status Reason Start Date Expiration Date V isits Requested Visits Authorized [id number] New Request 06/21/2022 07/16/2023 1 1 Physical Exam Physical Exam not supported for this document type No Physical Exam Recorded Physical Exam not supported for this document type No Physical Exam Recorded Physical Exam not supported for this document type No Physical Exam Recorded Physical Exam not supported for this document type No Physical Exam Recorded Physical Exam not supported for this document type No Physical Exam Recorded Physical Exam not supported for this document type No Physical Exam Recorded Additional Source Comments INFORMATION SOURCE (unrecogn ized section and content) DATE CREATED AUTHOR 02/14/2020 [facility] DATE CREATED AUTHOR AUTHOR'S ORGANIZ ATION 07/08/2022 [facility] DATE CREATED AUTHOR AUTHOR'S ORGANIZ ATION 08/13/2022 [facility] DATE CREATED AUTHOR AUTHOR'S ORGANIZ ATION 09/08/2022 [facility] Reason for Visit (unrecogniz ed section and content) Status Reason Specialty Diagnoses / Procedures Referred By Contact Referred To Contact Pending Review Radiology Diagnoses Renal colic Procedures CT ABDOMEN PELVIS WO CONTRAST Additional Contrast? None Vee Barriga, DELIVERY DRIVER ASSISTANT - OBJECTIVE C DEVELOPER [address] [facility] [address] [id number] [facility] [address] [facility] [place] [address] Reason Comments Flank Pain Left side flank pain for past 2 weeks. Status Reason Specialty Diagnoses / Procedures Referre d By Contact Referred To Contact Diagnoses Diabetic ketoacidosis without coma associated with type 2 diabetes mellitus (HCC) Diabetic ketoacidosis without coma associated with diabetes mellitus due to underlying condition (HCC) Roverto Barbour MD [address] [place] [address] [facility] Reason Comments Diabetes 3-4 week diabetic fo llow up, personal titus Reason Comments Follow-up Diabetes Reason Comments Diabetes Reason Comments Dizziness Fatigue Patient to the ED fo r c/o dizziness and weakness since Monday. States she hasn't been eating and she is a diabetic. BS was 376. Specialty Diagnoses / Procedures Referred By James martinez Referred To Contact Diagnoses Diabetic ketoacidosis without coma associated with type 2 diabetes mellitus Cecilio Saucedo MD [address] [place] [id number] [facility] Referral ID Status Reason Start Date Expiration Date Visits Re quested Visits Authorized [id number] 1 1 Reason Comments Cough Patient complaint of cough and sinus drainage for 2 weeks. Sent by walk in Ordered Prescriptions (unrec ognized section and content) Prescription Sig Dispensed Refills Start Date End Da te NEEDLE, DISP, 30 G (BD DISP NEEDLES) 30G X 1/2 MISC Injection 5 times a day. 150 each 5 04/16/2021 blood glucose monitor strips Test 4 times a day & as needed for symptoms of irregular blood glucose. Dispense sufficient amount for indicated testing frequency plus additional to accommodate PRN testing needs. 120 strip 5 04/16/2021 Lancets MISC 1 each by Does not apply route 4 times daily 200 each 0 04/16/2021 glucose monitoring (FREESTYLE FREEDOM) kit 1 kit by Does not apply route daily 1 kit 0 04/16/2021 insulin lispro (HUMALOG) 100 UNIT/ML injection vial 0 to 18 units per sliding scale. 5 pen 3 04/16/2021 insulin glargine (LANTUS SOLOSTAR) 100 UNIT/ML injection pen Inject 40 Units into the skin 2 times daily 10 pen 3 04/16/2021 lisinopril (PRINIVIL;ZESTRIL) 2.5 MG tablet Take 1 tablet by mouth daily 30 tablet 3 04/16/2021 metFORMIN (GLUCOPHAGE-XR) 500 MG extended release tabletIndications:Type 2 diabetes mellitus with complication, without long-term current use of insulin (HCC) Take 1 tablet by mouth daily (with breakfast) 270 tablet 1 04/16/2021 Prescription Sig Dispensed Refills Start Date End Da te doxycycline hyclate (VIBRA-TABS) 100 MG tablet Take 1 tablet by mouth 2 times daily for 7 days 14 tablet 0 07/05/2022 07/12/2022 Scheduled Active and Recently Administ ered Medications (unrecognized section and content) Medication Order 04/14/2021 04/15/2021 04/16/2021 aspirin EC tablet 81 mg 81 mg, Oral, DAILY, First dose on Mon04/14/21 at 0900, Do not crush or break. 0921 (Given - Provider: Juan Salamanca, YARELI) 0803 (Given - Provider: Maria Guadalupe Wolfe, YARELI) 0817 (Given - Provider: Angelika Bunch, YARELI) enoxaparin (LOVENOX) injection 40 mg 40 mg, SubCUTAneous, DAILY, First dose on Mon04/14/21 at 0900 0922 (Given - Provider: Juan Salamanca, YARELI) 0803 (Given - Provider: Maria Guadalupe Wolfe, YARELI) 0816 (Given - Provider: Angelika Bunch, YARELI) insulin glargine (LANTUS) injection vial 20 Units (CANCELED) 20 Units, SubCUTAneous, DAILY BEFORE BREAKFAST, First dose on Siria 04/15/21 at 0700 0637 (Given - Provider: Nesha Perez, RN) 0624 (Given - Provider: Nesha Perez, RN) insulin glargine (LANTUS) injection vial 30 Units 30 Units, SubCUTAneous, DAILY BEFORE BREAKFAST, First dose (after last modification) on Mon04/17/21 at 0700 insulin glargine (LANTUS) injection vial 40 Units (CANCELED) 40 Units, SubCUTAneous, NIGHTLY, First dose on Mon04/14/21 at 1945 2127 (Given - Provider: Nesha Perez, RN) 2028 (Given - Provider: Juan Salamanca, YARELI) insulin glargine (LANTUS) injection vial 50 Units 50 Units, SubCUTAneous, NIGHTLY, First dose (after last modification) on Mon04/16/21 at 2100 2100 (Due) insulin lispro (HUMALOG) injection vial 0-12 Units (CANCELED) 0-12 Units, SubCUTAneous, 3 TIMES DAILY WITH MEALS, First dose on Mon04/14/21 at 1945, Medium Dose Correction Algorithm Glucose: Dose: 70-139 No Insulin 140-199 2 Units 200-249 4 Units 250-299 6 Units 300-349 8 Units 350-399 10 Units 400 and above 12 Units 1957 (Not Given - Provider: Nesha Perez RN - Reason: Other - Comment: just d/c'd insulin gtt) 0802 (Given - Provider: Maria Guadalupe Wolfe RN - Comment: [phone] (Given - Provider: Juan Salamanca, YARELI) insulin lispro (HUMALOG) injection vial 0-18 Units 0-18 Units, SubCUTAneous, 3 TIMES DAILY WITH MEALS, First dose on Mon04/15/21 at 1300, High Dose Correction Algorithm Glucose: Dose: 70-139 No Insulin 140-199 3 Units 200-249 6 Units 250-299 9 Units 300-349 12 Units 350-399 15 Units 400 and above 18 Units 1413 (Not Given - Provider: Maria Guadalupe Wolfe RN - Reason: Other - Comment: Pt had lunch dose at [phone] (Given - Provider: Juan Salamanca RN) 0817 (Given - Provider: Angelika Bunch RN)1200 (Due)1700 (Due) insulin lispro (HUMALOG) injection vial 0-6 Units (CANCELED) 0-6 Units, SubCUTAneous, NIGHTLY, First dose on Mon04/14/21 at 2100, If continuous tube feedings/TPN/NPO, give correction dose based on result, no reduction in dose. If eating or bolus tube feeding: Medium Dose Bedtime Correction Algorithm Glucose: Dose: 70-139 No Insulin 140-199 1 Unit 200-249 2 Units 250-299 3 Units 300-349 4 Units 350-399 5 Units 400 and above 6 Units 2129 (Given - Provider: Nesha Perez RN - Comment: 211) insulin lispro (HUMALOG) injection vial 0-9 Units 0-9 Units, SubCUTAneous, NIGHTLY, First dose on Mon04/15/21 at 2100, If continuous tube feedings/TPN/NPO, give correction dose based on result, no reduction in dose. If eating or bolus tube feeding: High Dose Bedtime Correction Algorithm Glucose: Dose: 70-139 No Insulin 140-199 2 Units 200-249 3 Units 250-299 5 Units 300-349 6 Units 350-399 7 Units 400 and above 9 Units 2029 (Given - Provider: Juan Salamanca RN) 2100 (Due) lidocaine 4 % external patch 1 patch 1 patch, TransDERmal, Administer over 12 Hours, DAILY, First dose on Mon04/14/21 at 0515, Apply patch to Left sacroiliac area. Patch may remain in place for up to 12 hours in any 24 hour period. 0608 (Patch Applied - Provider: Vidhya Reyes RN)181 (Patch Removed - Provider: Juan Salamanca RN) 0803 (Patch Applied - Provider: Maria Guadalupe Wolfe RN)2031 (Patch Removed - Provider: Juan Salamanca RN) 08 (Patch Applied - Provider: Angelika Bunch, YARELI)2015 (Due: Patch Removed - Provider: Angelika Bunch RN) lisinopril (PRINIVIL;ZESTRIL) tablet 10 mg (CANCELED) 10 mg, Oral, DAILY, First dose on Mon04/14/21 at 0500 0608 (Given - Provider: Vidhya Reyes RN) lisinopril (PRINIVIL;ZESTRIL) tablet 2.5 mg 2.5 mg, Oral, DAILY, First dose (after last modification) on Mon04/15/21 at 0900, Hold for SBP < 110 0803 (Given - Provider: Maria Guadalupe Wolfe RN) 0817 (Given - Provider: Angelika Bunch RN) phosphorus (K PHOS NEUTRAL) tablet 1 tablet (COMPLETED) 1 tablet (250 mg), Oral, ONCE, On Mon04/15/21 at 0630, For 1 dose 0636 (Given - Provider: Nesha Perez RN) potassium chloride (KLOR-CON) extended release tablet 20 mEq (COMPLETED) 20 mEq, Oral, ONCE, On Mon04/15/21 at 0630, For 1 dose, Do not crush or break. 0636 (Given - Provider: Nesha Perez, YARELI) potassium chloride (KLOR-CON) extended release tablet 20 mEq (COMPLETED) 20 mEq, Oral, ONCE, On Mon04/15/21 at 1700, For 1 dose, Do not crush or break. 165 (Given - Provider: Juan Salamanca RN) potassium chloride (KLOR-CON) extended release tablet 40 mEq (COMPLETED) 40 mEq, Oral, ONCE, On Mon04/16/21 at 0630, For 1 dose, Do not crush or break. 0622 (Given - Provider: Nesha Perez, RN) vitamin B-6 (PYRIDOXINE) tablet 50 mg 50 mg, Oral, DAILY, First dose on Mon04/14/21 at 0900 0921 (Given - Provider: Juan Salamanca, RN) 0803 (Given - Provider: Maria Guadalupe Wolfe, RN) 0817 (Given - Provider: Angelika Bunch, RN) Vitamin D (CHOLECALCIFEROL) tablet 2,000 Units 2,000 Units, Oral, DAILY, First dose on Mon04/14/21 at 0900 0921 (Given - Provider: Juan Salamanca, YARELI) 0803 (Given - Provider: Maria Guadalupe Wolfe, RN) 0817 (Given - Provider: Angelika Bunch, YARELI) Continuous Medication Order 04/14/2021 04/15/2021 04/16/2021 0.9% NaCl with KCl 20 mEq infusion (CANCELED) IntraVENous, at 100 mL/hr, CONTINUOUS, Starting on Mon04/14/21 at 1745 1734 (New Bag - Provider: Juan Salamanca, YARELI)1957 (Stopped - Provider: Nesha Perez, RN) 0.9% NaCl with KCl 20 mEq infusion (CANCELED) IntraVENous, at 75 mL/hr, CONTINUOUS, Starting on Mon04/14/21 at 1945 1956 (New Bag - Provider: Nesha Perez, RN) 0639 (Stopped - Provider: Nesha Perez, RN) dextrose 5 % and 0.45 % sodium chloride infusion (CANCELED) IntraVENous, at 100 mL/hr, CONTINUOUS, Starting on Mon04/13/21 at 2330 0908 (Stopped - Provider: Juan Salamanca, YARELI)0922 (Rate/Dose Change - Provider: Juan Salamanca RN)1004 (New Bag - Provider: Juan Salamanca RN) insulin regular (HUMULIN R;NOVOLIN R) 100 Units in sodium chloride 0.9 % 100 mL infusion (CANCELED) 0.1 Units/kg/hr 84.8 kg (8.48 mL/hr, rounded to 8.5 mL/hr), IntraVENous, at 8.5 mL/hr, CONTINUOUS, Starting on Mon04/13/21 at 2230, Initial DKA Insulin Infusion Protocol: - If any blood glucose (BG) increases, then increase infusion by 50% of current rate - If BG decrease is less than 50 mg/dL per hour, increase infusion by 50% of current rate - If BG decrease is between 50-75 mg/dL per hour, then make no change to infusion rate - If BG decrease is between 76-100 mg/dL per hour, decrease infusion by 50% of current rate - If BG decrease is greater than 100 mg/dL per hour, decrease infusion by 50%, repeat BG, and call provider - When BG < 250 mg/dL, switch to DKA Multiplier Insulin Infusion Protocol (DO NOT switch back to above protocol if the BG subsequently goes above 250 mg/dL again). - REMINDER TO CHANGE IV FLUIDS - When BG 250 mg/dL or below, DISCONTINUE saline IV fluid using Per Protocol order mode and start using the dextrose containing IV fluid order previously placed as CONTINUOUS PRN. DO NOT restart saline infusion if subsequent BG returns above 250 mg/dL. DKA Multiplier Insulin Infusion Protocol: Low BG target: 150 mg/dL and High BG target: 200 mg/dL Begin infusion rate by the following formula: (BG - 60) x 0.03 = insulin units per hour but DO NOT increase the insulin rate any greater than three times the current rate. Adjust the multiplier in the above formula as follows: - If BG is greater than 200 mg/dL, increase multiplier by 0.01 - If BG is less than 150 md/dL, decrease multiplier by 0.01 - If BG is between 150 - 200 mg/dL, make no change in multiplier - Recalculate insulin dose with every BG drawn, even if the multiplier does not change - Hold insulin infusion if BG less than 80 mg/dL, if BG less than 70 mg/dL follow hypoglycemia treatment orders, continue to check BG as ordered, and restart insulin infusion if and when BG increases back into goal range while decreasing last multiplier by 0.01 Notify provider if: * BG is less than 80 * If BG less than 200 mg/dL AND when both of the following criteria are met on two consecutive BMPs: Anion gap normalized (less than or equal to 12), serum bicarb (HCO3) greater than 15, call provider for conversion from insulin infusion to subcutaneous insulin and discontinue insulin infusion 2 hours after the first subcutaneous injection of insulin. * If multiplier less than 0.01 results in insulin rate of 0 units/hr for clarification on insulin infusion rate and/or IV fluid adjustments. Maintain current insulin infusion rate prior to notifying physician unless BG less than 80 mg/dL. 0031 (Rate/Dose Change - Provider: Vidhya Reyes RN)0136 (Rate/Dose Verify - Provider: Vidhya Reyes RN - Comment: BG 207)0201 (Rate/Dose Change - Provider: Vidhya Reyes RN)0256 (Rate/Dose Change - Provider: Vidhya Reyes RN)0349 (Rate/Dose Change - Provider: Vidhya Reyes RN)0515 (Rate/Dose Change - Provider: Vidhya Reyes RN)0642 (Rate/Dose Change - Provider: Vidhya Reyes RN)0837 (Rate/Dose Change - Provider: Juan Salamanca RN)0937 (New Bag - Provider: Juan Salamanca, YARELI)1145 (Rate/Dose Change - Provider: Wendy Rogers RN)1655 (Rate/Dose Change - Provider: Juan Salamanca RN)1742 (New Bag - Provider: Juan Salamanca, YARELI)1846 (Rate/Dose Change - Provider: Juan Salamanca, YARELI)1928 (Rate/Dose Change - Provider: Juan Salamanca, YARELI)1932 (Stopped - Provider: Juan Salamanca RN) PRN Medication Order 04/14/2021 04/15/2021 04/16/2021 albuterol sulfate HFA 108 (90 Base) MCG/ACT inhaler 2 puff 2 puff, Inhalation, EVERY 6 HOURS PRN, Wheezing, Shortness of Breath, Starting on Mon04/13/21 at 2212 dextrose 5 % solution 100 mL/hr, IntraVENous, at 100 mL/hr, PRN, Low blood sugar, Starting on Mon04/14/21 at 1927, Start infusion following administration of dextrose 50% or glucagon. dextrose 50 % IV solution 12.5 g, IntraVENous, PRN, Low blood sugar, Starting on Mon04/13/21 at 2212, For blood glucose level less than 70 mg/dL. Check blood glucose every 15 minutes and repeat above if blood glucose is less than 70 mg/dL. dextrose 50 % IV solution 12.5 g, IntraVENous, PRN, Low blood sugar, Blood glucose less than 70 mg/dL and patient NOT ALERT or NPO., Starting on Mon04/14/21 at 192, If patient does not respond within 5 minutes, repeat dose x1. Start D5W at 100 mL/hour until ordering provider can be reached. Repeat blood glucose in 15 minutes. If blood glucose is less than 70 mg/dL, repeat treatment and recheck blood glucose in 15 minutes x2. If using Glucostabilizer, dose as instructed per system. glucagon (rDNA) injection 1 mg 1 mg, IntraMUSCular, PRN, Low blood sugar, Blood glucose less than 70 mg/dL and patient NOT ALERT or NPO and does not have IV access., Starting on Mon04/14/21 at 192, After administration, attempt intravenous access and start D5W at 100 mL/hr. Repeat blood glucose in 15 minutes x2 and notify provider. glucose (GLUTOSE) 40 % oral gel 15 g 15 g, Oral, PRN, Low blood sugar, Starting on Mon04/14/21 at 192, If blood glucose less than 50 mg/dL and patient ALERT and TOLERATING PO, give 2 tubes glucose gel. If blood glucose less than 70 mg/dL and patient ALERT and TOLERATING PO, give 1 tube glucose gel. Repeat blood glucose in 15 minutes. If blood glucose is less than 70 mg/dL, repeat treatment and recheck blood glucose in 15 minutes x2 and notify provider. magnesium sulfate 1000 mg in dextrose 5% 100 mL IVPB 1,000 mg, IntraVENous, at 100 mL/hr, Administer over 1 Hours, PRN, Other, Magnesium IV Replacement, Starting on Mon04/13/21 at 2212, Mg Level Mg Replacement Action 1.4 to 1.6 1 gram IVPB x 2 doses (2 grams total) 1.0 to 1.3 1 gram IVPB x 4 doses (4 grams total) Below 1.0 CALL PHYSICIAN and 1 gram IVPB x 4 doses (4 grams total) Infuse at 1 gram/hr. Repeat Mg level next AM. Not for use in patients with CrCl less than 30 mL/min. polyethylene glycol (GLYCOLAX) packet 17 g 17 g, Oral, DAILY PRN, Constipation, Starting on Mon04/13/21 at 2212, First line therapy for constipation potassium chloride 10 mEq/100 mL IVPB (Peripheral Line) (CANCELED) 10 mEq, IntraVENous, at 100 mL/hr, PRN, Potassium IV Replacement, Starting on Mon04/13/21 at 2212, Above 5.2 No dose 4.3 to 5.2 10 mEq IVPB x 2 doses (20 mEq total) 3.4 to 4.2 10 mEq IVPB x 3 doses (30 mEq total) Below 3.4 10 mEq IVPB x 4 doses (40 mEq total) Infuse at 10 mEq/hr. Can be administered either through peripheral IV or central IV. 0242 (New Bag - Provider: Vidhya Reyes RN)0424 (New Bag - Provider: Vidhya Reyes, RN)0549 (New Bag - Provider: Vidhya Reyes RN)0652 (New Bag - Provider: Vidhya Reyes RN)1004 (New Bag - Provider: Juan Salamanca, RN)1110 (New Bag - Provider: Juan Salamanca, RN)1251 (New Bag - Provider: Juan Salamanca, RN)1409 (New Bag - Provider: Juan Salamanca, RN)1519 (New Bag - Provider: Juan Salamanca, RN)1643 (New Bag - Provider: Juan Salamanca, RN)1815 (New Bag - Provider: Juan Salamanca, YARELI) sodium phosphate 15 mmol in dextrose 5 % 250 mL IVPB (CANCELED) 15 mmol, IntraVENous, at 62.5 mL/hr, Administer over 240 Minutes, PRN, Phosphorus IV Replacement, Starting on Mon04/13/21 at 2212, Phos level Phosphorus Replacement Action 2.3 to 2.7 mg/dL 10 mmol IVPB over 4 hours 1.5 to 2.2 mg/dL 15 mmol IVPB over 4 hours Below 1.5 mg/dL 20 mmol IVPB over 6 hours 1447 (New Bag - Provider: Juan Salamanca, YARELI)1958 (Stopped - Provider: Nesha Perez RN) No Frequency Medication Order 04/14/2021 04/15/2021 04/16/2021 sodium phosphates 15 MMOLE/5ML injection (COMPLETED) Starting on Mon04/14/21 at 0216, For 1 dose, Vidhya Reyes: cabinet override 0243 (Given - Provider: Vidhya Reyes RN) Scheduled Medication Order 06/20/2022 06/21/2022 06/22/[address] 81 mg 81 mg, Oral, DAILY, First dose on Mon06/22/22 at 1130, Until Discontinued 1106 (Given - Provid er: Alison Doherty RN) glipiZIDE (GLUCOTROL) tablet 10 mg 10 mg, Oral, 2 TIMES DAILY, First dose on Mon06/22/22 at 1100, Until Discontinued, 1105 (Given - Provid er: Alison Doherty RN)1628 (Given - Provider: Alison Doherty RN) glucose chewable tablet CHEW 16-32 g(Linked Group 1) 16-32 g (4-8 tablet), Oral, SEE ADMIN INSTRUCTIONS, Starting on Mon06/22/22 at 1045, Until Mon06/22/22 at 2023, If patient is alert and able to tolerate oral medications and blood glucose 69 - 50 mg/dL: give 4 chew tabs, if blood glucose 49 - 20 mg/dL: give 8 chew tabs. Notify physician and repeat blood glucose in 20 minutes. May repeat treatment x 1 if blood glucose less than 60 mg/dL. For alternative treatment options (juice, etc.) refer to the hypoglycemia management protocol on [facility]: [facility] Management Protocol Insulin regular (HUMULIN R;NOVOLIN R) injection(Linked Group 1) Subcutaneous, 4 TIMES DAILY WITH MEALS & AT BEDTIME, First dose on Mon06/22/22 at 1200, Until Discontinued, Sliding Scale parameters: Blood glucose under 70 = call physician; 151 - 200 = 3 units; 201 - 250 = 6 units; 251 - 300 = 9 units; 301 - 350 = 12 units; 351 - 400 = 15 units; Over 400 = call physician. 1149 (Given - Provid er: Alison Doherty RN)1627 (Given - Provider: Alison Doherty RN) lactated ringers IV solution 1,000 mL (COMPLETED) 1,000 mL, Intravenous, ONCE, 1 dose, On Mon06/21/22 at 2115, BOLUS #1 2114 ($$New Bag$$ - Provider: Abbie Gibson RN)2214 (Stopped - Provider: Abbie Gibson RN) lactated ringers IV solution 1,000 mL (COMPLETED) 1,000 mL, Intravenous, ONCE, 1 dose, On Mon06/21/22 at 2230, BOLUS #2 2215 ($$New Bag$$ - Provider: Abbie Gibson RN)2315 (Stopped - Provider: Abbie Gibson RN) lactated ringers IV solution 1,000 mL (COMPLETED) 1,000 mL, Intravenous, ONCE, 1 dose, On Mon06/22/22 at 1000 1106 ($$New Bag$$ - Provider: Alison Doherty RN)1215 (Stopped - Provider: Alison Doherty RN) pioglitazone (ACTOS) tablet 30 mg 30 mg, Oral, DAILY, First dose on Mon06/22/22 at 1130, Until Discontinued 1106 (Given - Provid er: Alison Doherty RN) potassium bicarbonate (EFFER-K) effervescent tablet 50 mEq (COMPLETED) 50 mEq, Oral, ONCE, 1 dose, On Mon06/22/22 at 1345, Do not swallow whole. Dissolve completely in 3-4 ounces of water or cold juice before drinking. If administering via J tube, dilute in sterile water, wait for tablet to stop fizzing, swirl the solution and draw into a syringe suitable for attaching to the tube. After administration, flush tube with 15-30 ml water. 1309 (Given - Provid er: Alison Doherty RN) potassium chloride 40 mEq in 0.9% sodium chloride 500 ml IVPB (COMPLETED) 40 mEq, Intravenous, at 125 mL/hr, Administer over 4 Hours, ONCE, 1 dose, On Mon06/22/22 at 0800 0912 ($$New Bag$$ - Provider: Alison Doherty RN)1315 (Stopped - Provider: Alison Doherty RN) potassium phosphates 30 mmol in sodium chloride 0.9%, with overfill 535 mL (total volume) IVPB (COMPLETED) 30 mmol, Intravenous, Administer over 6 Hours, ONCE, 1 dose, On Mon06/22/22 at 0800, Extravasation Risk 0912 ($$New Bag$$ - Provider: Alison Doherty RN)1620 (Stopped - Provider: Alison Doherty RN) sodium chloride 0.9% IV solution 1,000 mL (COMPLETED) 1,000 mL, Intravenous, ONCE, 1 dose, On Mon06/21/22 at 1700 1811 ($$New Bag$$ - Provider: Mason Dooley RN)1915 (Stopped - Provider: Abbie Gibson RN) Continuous Medication Order 06/20/2022 06/21/2022 06/22/2022 dextrose 5% and sodium chloride 0.9% IV solution (CANCELED) Intravenous, at 0-150 mL/hr, CONTINUOUS, Starting on Mon06/21/22 at 1715, Until Mon06/22/22 at 1045, If accucheck less than 250 mg/dL change IV fluid to D5W / NS at current IV fluid rate 1900 (Not Given - Provider: Abbie Gibson RN - Reason: Order Parameters not met)2135 ($$New Bag$$ - Provider: Abbie Gibson RN) 0254 (Rate/Dose Verify - Provider: Abbie Gibson RN)0700 ($$New Bag$$ - Provider: Abbie Gibson RN)1055 (Stopped - Provider: Alison Doherty RN) Insulin regular (MYXREDLIN) 100 units in 100 mL sodium chloride 0.9% premix (CANCELED) 0-25 Units/hr (0-25 mL/hr), Intravenous, CONTINUOUS, Starting on Mon06/21/22 at 1715, Until Mon06/22/22 at 1045, If accuchek is less than 250 change IVF to D5W/NS at current IV rate Goal BG: (Usually 80 -120mg/dL) Start infusion at 5 units/hr Algorithm If BS less than 80 mg/dL, STOP infusion, treat per insulin infusion hypoglycemic orders and call Physician BS: 80 & 109 mg/dL; rate = 0.5 units/hr BS: 110 & 119 mg/dL; rate = 1 units/hr BS: 120 & 149 mg/dL; rate = 1.5 units/hr, BS: 150 & 179 mg/dL; rate = 2 units/hr BS: 180 & 209 mg/dL; rate = 3 units/hr BS: 210 & 239 mg/dL; rate = 4 units/hr BS: 240 & 269 mg/dL; rate = 5 units/hr BS: 270 & 299 mg/dL; rate = 6 units/hr BS: 300 & 329 mg/dL; rate = 7 units/hr BS: 330 & 359 mg/dL; rate = 8 units/hr BS: 360 & 399 mg/dL; rate = 12 units/hr if BS greater than 400 mg/dL call Physician. 1810 ($$New Bag$$ - Provider: Mason Dooley RN)192 (Rate/Dose Change - Provider: Abbie Gibson, RN)2019 (Rate/Dose Change - Provider: Abbie Gibson, RN)211 (Rate/Dose Change - Provider: Abbie Shock, RN)221 (Rate/Dose Change - Provider: Abbie Shock, RN)2311 (Rate/Dose Change - Provider: Abbie Gibson, RN) 0018 (Rate/Dose Change - Provider: Abbie Gibson, RN)0117 (Rate/Dose Verify - Provider: Abbie Gibson, RN)0222 (Rate/Dose Verify - Provider: Kwaku Tubbs RN)0323 (Rate/Dose Change - Provider: Abbie Gibson, RN)0420 (Rate/Dose Verify - Provider: Abbie Gibson, RN)0527 (Rate/Dose Verify - Provider: Abbie Gibson, RN)0629 (Rate/Dose Change - Provider: Abbie Gibson RN)0733 (Rate/Dose Verify - Provider: Alison Doherty RN)0839 (Rate/Dose Verify - Provider: Alison Doherty RN)0930 (Rate/Dose Verify - Provider: Alison Doherty RN)1055 (Stopped - Provider: Alison Doherty RN) sodium chloride 0.9% IV solution Intravenous, at 150 mL/hr, CONTINUOUS, Starting on Mon06/21/22 at 1730, Until Mon06/22/22 at 0529 1928 ($$New Bag$$ - Provider: Abbie Gibson, RN)2044 (Rate/Dose Change - Provider: Abbie Gibson, RN)213 (Stopped - Provider: Abbie Gibson RN - Comment: D5NS started per order) PRN Medication Order 06/20/2022 06/21/2022 06/22/2022 acetaminophen (TYLENOL) tablet 650 mg 650 mg, Oral, EVERY 6 HOURS NEEDED, Starting on Mon06/21/22 at 1718, Until Mon06/22/22 at 2023, Mild Pain, Oral temp > 100.4 F, dextrose 10% IV solution 250 mL(Linked Group 1) 250 mL, Intravenous, ADMINISTER DIRECTED, Starting on Mon06/22/22 at 1045, Until Mon06/22/22 at 2023, Blood Glucose LESS THAN 70 mg/dL, If blood sugar is less than 70 mg/dL, give Dextrose 10% (IV Large-bore IV preferred). Administer at a rate of 999 mL/hr. Notify physician and repeat blood sugar in 20 minutes. May repeat dextrose X1 if blood sugar less than 60 mg/ml. If unresponsive call [facility]OD RO[facility] ondansetron 4mg/2ml (ZOFRAN) injection 4 mg 4 mg, Intravenous, EVERY 6 HOURS NEEDED, Starting on Mon06/21/22 at 1718, Until Mon06/22/22 at 2023, Nausea / Vomiting 2021 (Given - Provider: Abbie Gibson RN) 324 (Given - Provider: Abbie Gibson RN) Linked Groups Order Group 1: Insulin regular (HUMULIN R;NOVOLIN R) injectionJump to med Subcutaneous, 4 TIMES DAILY WITH MEALS & AT BEDTIME, First dose on Mon06/22/22 at 1200, Until Discontinued
Sliding Scale parameters: Blood glucose under 70 = call physician; 151 - 200 = 3 units; 201 - 250 = 6 units; 251 - 300 = 9 units; 301 - 350 = 12 units; 351 - 400 = 15 units; Over 400 = call physician.
And Glucose (POC device) (CANCELED) Routine, 4 TIMES DAILY BEFORE MEALS & AT BEDTIME, First occurrence on Mon06/22/22 at 1530, Until Specified And Glucose (POC device) (CANCELED) Routine, ONE TIME, On Mon06/22/22 at 1046, For 1 occurrence
For all Blood Glucose LESS THAN 70 mg/dL, recheck 20 min after treatment then notify physician. And glucose chewable tablet CHEW 16-32 gJump to med 16-32 g (4-8 tablet), Oral, SEE ADMIN INSTRUCTIONS, Starting on Mon06/22/22 at 1045, Until Mon06/22/22 at 2023
If patient is alert and able to tolerate oral medications and blood glucose 69 - 50 mg/dL: give 4 chew tabs, if blood glucose 49 - 20 mg/dL: give 8 chew tabs. Notify physician and repeat blood glucose in 20 minutes. May repeat treatment x 1 if blood glucose less than 60 mg/dL. For alternative treatment options (juice, etc.) refer to the hypoglycemia management protocol on [facility]: [facility] Management Protocol
And dextrose 10% IV solution 250 mLJump to med 250 mL, Intravenous, ADMINISTER DIRECTED, Starting on Mon06/22/22 at 1045, Until Mon06/22/22 at 2023, Blood Glucose LESS THAN 70 mg/dL
If blood sugar is less than 70 mg/dL, give Dextrose 10% (IV Large-bore IV preferred). Administer at a rate of 999 mL/hr. Notify physician and repeat blood sugar in 20 minutes. May repeat dextrose X1 if blood sugar less than 60 mg/ml. If unresponsive call [facility]
And NOTIFY PHYSICIAN, Blood Glucose LESS THAN 70 mg/dl or greater than 400 mg/dl (CANCELED) Routine, CONTINUOUS, Starting on Mon06/22/22 at 1046, Until Specified
Who to Notify: SAP SD ANALYST/Physician
For all Blood Glucose LESS THAN 70 mg/dl, or greater than 400 mg/dl notify SAP SD ANALYST/Physician Scheduled Medication Order 07/03/2022 07/04/2022 07/05/2022 0.9 % sodium chloride bolus (COMPLETED) 1,000 mL (11.3 mL/kg), IntraVENous, at 495.9 mL/hr, Administer over 121 Minutes, ONCE, On Mon07/05/22 at 0945, For 1 dose 0948 (New Bag - Prov ider: Max Pisano RN)1049 (Stopped - Provider: Sparkle Rudd RN) Care Teams (unrecognized sec tion and content) Television Operator Relationship Specialty Start Date End Date Kavita Meier CNP [address] [place] [address] PCP - General Family Medicine 06/21/21 Television Operator Relationship Specialty Start Date End Date Kavita Meier CNP [address] [place], [place] [id number] PCP - General Family Medicine 06/21/21 Television Operator Relationship Specialty Start Date End Date Kavita Meier CNP [address] [place] [address] PCP - General Family Medicine 06/21/21 Television Operator Relationship Specialty Start Date End Date Kavita Meier CNP [address] [place] [address] PCP - General Family Medicine 06/21/21 Television Operator Relationship Specialty Start Date End Date Kavita Meier CNP [address] [place] [address] PCP - General Family Medicine 06/21/21 FOR RECORDS PERTAINING TO PATIENTS WHO ARE OR HAVE BEEN ENROLLED IN A CHEMICAL DEPENDENCY/SUBSTANCEABUSE PROGRAM, SOME INFORMATION MAY BE OMITTED. This clinical summary was aggregated from multiple sources. Caution should be exercised in using it in the provision of clinical care. This summary normalizes information from multiple sources, and as a consequence, information in this document may materially change the coding, format and clinical context of patient data. In addition, data may be omitted in some cases. CLINICAL DECISIONS SHOULD BE BASED ON THE PRIMARY CLINICAL RECORDS. [facility] [employer] [facility]. provides no warranty or guarantee of the accuracy or completeness of information in this document.
--- NOTE | 2023-07-15 16:44 | ECG_ITS ---
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
[2023-07-15 17:10] LABS: Bilirubin Urine NEGATIVE (NEGATIVE); Blood Urine NEGATIVE (NEGATIVE); Clarity Urine CLEAR (CLEAR); Color Urine LT. YELLOW (YELLOW); Glucose Urine UA >=1000 mg/dL (NEGATIVE); Ketones Urine NEGATIVE (NEGATIVE); Leukocyte Esterase Urine NEGATIVE (NEGATIVE); Nitrite Urine NEGATIVE (NEGATIVE); Protein Urine NEGATIVE (NEG/TRACE); Urobilinogen Urine 0.2 EU/dL (0.2-1.0)
[2023-07-15] MEDS: 0.9 % SODIUM CHLORIDE 1,000 ML 1000 ML IV ×2 (17:10→19:35)
[2023-07-15 17:12] LABS: Urine Microscopic Indicated NO
[2023-07-15 17:14] LABS: Acetone NEGATIVE (NEGATIVE)
[2023-07-15 17:19] LABS: Alanine Aminotransferase 25 U/L (14-59); Albumin Globulin Ratio 0.5; Albumin Level 2.4 g/dL (3.4-5.0); Alkaline Phosphatase 108 U/L (46-116); Anion Gap 10.8; Aspartate Amino Transferase 14 U/L (15-37); BUN Creatinine Ratio 16.1; Bilirubin Total 0.2 mg/dL (0.2-1.0); Calcium 9.3 mg/dL (8.5-10.1); Carbon Dioxide 26.5 mmol/L (21.0-32.0); Chloride 96 mmol/L (98-107); Estimated GFR (African America >60 (>=60); Estimated GFR (Non-African Ame >60 (>=60); Globulin 4.7 g/dL; Magnesium 1.9 mg/dL (1.8-2.4); Phosphorus 3.3 mg/dL (2.6-4.7); Potassium 5.3 mmol/L (3.5-5.1); Sodium 128 mmol/L (136-145); Total Protein 7.1 g/dL (6.4-8.2)
[2023-07-15 17:20] LABS: Glucose 513 mg/dL (74-106)
[2023-07-15 18:31] LABS: Alanine Aminotransferase 24 U/L (14-59); Albumin Globulin Ratio 0.5; Albumin Level 2.4 g/dL (3.4-5.0); Alkaline Phosphatase 105 U/L (46-116); Anion Gap 12.4; Aspartate Amino Transferase 13 U/L (15-37); BUN Creatinine Ratio 16.8; Bilirubin Total 0.2 mg/dL (0.2-1.0); Calcium 9.3 mg/dL (8.5-10.1); Carbon Dioxide 25.7 mmol/L (21.0-32.0); Chloride 99 mmol/L (98-107); Estimated GFR (African America >60 (>=60); Estimated GFR (Non-African Ame >60 (>=60); Globulin 4.5 g/dL; Potassium 5.1 mmol/L (3.5-5.1); Sodium 132 mmol/L (136-145); Total Protein 6.9 g/dL (6.4-8.2)
[2023-07-15 18:32] LABS: Glucose 563 mg/dL (74-106)
[2023-07-15 19:25] LABS: Glucometer 438 mg/dL (74-106)
--- NOTE | 2023-07-15 19:31 | ED_ITS ---
HPI - Weakness General Chief complaint: Weakness Stated complaint: WEAKNESS/DIZZY Time Seen by Provider: 07/15/23 16:43 Source: patient Mode of arrival: walk-in Limitations: no limitations History of Present Illness HPI Narrative: The patient is coming to us with dizziness that has been going on since she was last admitted for hyperglycemia managementt few days ago. Blood sugar was still elevated and she did mention that it is hard to control her blood sugar. Submission that she is having dizziness every time she tried to stand up. The nausea no vomiting no abdominal pain Related Data Previous Rx's Medication Instructions Recorded amlodipine 5 mg tablet (Norvasc) 5 mg PO DAILY #30 tabs 07/09/23 benzonatate 100 mg capsule 100 mg PO BID PRN cough #20 caps 07/09/23 insulin detemir U-100 100 unit/mL 20 unit (0.2 mL) subcut QAM 30 07/09/23 subcutaneous solution (Levemir days #6 mL U-100 Insulin) insulin detemir U-100 100 unit/mL 50 unit (0.5 mL) subcut .QHS 30 07/09/23 subcutaneous solution (Levemir days #10 mL U-100 Insulin) insulin lispro 100 unit/mL 5 unit (0.05 mL) subcut TID #15 mL 07/09/23 subcutaneous cartridge (Humalog U-100 Insulin) levofloxacin 750 mg tablet 750 mg PO DAILY 4 days #4 tabs 07/09/23 potassium chloride 20 mEq 20 meq PO BID 30 days #60 tabs 07/09/23 tablet,extended release Allergies Allergy/AdvReac Type Severity Reaction Status Date / Time [id number] Reductase AdvReac Severe Hives Verified 07/15/23 16:31 Inhibitor Review of Systems ROS Status of ROS 10 or more systems reviewed and unremark able except as noted in history and below [facility] Medical History Diabetes mellitus ?E11.9 - Type 2 diabetes mellitus without complications (ICD-10) Social History Smoking status: Never smoker Exam Narrative Exam Narrative: Nurses notes and vital signs reviewed and patient is not hypoxic. General: Well-appearing and in no apparent distress. Skin: Warm, dry, no pallor noted. No rash. Head: Normocephalic, atraumatic. Neck: Supple, non-tender. Eye: Pupils are equal, round and EOMI. No scleral icterus. Ears, Nose, Mouth, and Throat: TM are clear, no nasal mucosal hypertrophy. Oral mucosa is moist, no posterior oropharynx erythema, uvula is mid-line Cardiovascular: Regular Rate and Rhythm without murmur, gallop or rub. Respiratory: No accessory muscle use or respiratory distress. Lungs are clear to auscultation, no wheezing, rales or rhonchi Chest Wall: no tenderness Back: No midline thoracic or lumbar vertebral tenderness. No CVA tenderness Musculoskeletal: normal ROM, no calf or popliteal tenderness, no lower extremity edema/swelling GI: Abdomen is soft, non-distended. Normal bowel sounds. No masses appreciated. No tenderness to palpation. No rebound, guarding, or rigidity noted. Neurological: A&O x4. No cranial nerve dysfunction observed. No truncal ataxia. Moves all extremities. Sensation intact. Psychiatric: Cooperative and interactive. Normal mood and affect. Constitutional Vital Signs, click to edit/add: Last Vital Signs Temp 98.5 F 07/15/23 16:25 Pulse 91 H 07/15/23 20:22 Resp 21 07/15/23 20:22 BP 104/81 07/15/23 20:23 Pulse Ox 97 07/15/23 20:22 O2 Del Method Room Air 07/15/23 16:25 Course Vital Signs Vital signs: Vital Signs Temperature 98.5 F 07/15/23 16:25 Pulse Rate 100 H 07/15/23 16:25 Respiratory Rate 16 07/15/23 16:25 Blood Pressure 146/71 H 07/15/23 16:25 Pulse Oximetry 99 07/15/23 16:25 Oxygen Delivery Method Room Air 07/15/23 16:25 Temperature 98.5 F 07/15/23 16:25 Pulse Rate 91 H 07/15/23 20:22 Respiratory Rate 21 07/15/23 20:22 Blood Pressure 104/81 07/15/23 20:23 Pulse Oximetry 97 07/15/23 20:22 Oxygen Delivery Method Room Air 07/15/23 16:25 MDM - Weakness MDM Narrative Medical decision making narrative: Patient plan was to repeat the blood work the initiation of some hypokalemia with potassium now was 5.1 after being repeated the patient's EKG shows sinus rhythm with a heart rate of one hundred and five She was orthostatic negative The patient right now the plan to give IV fluid 1 L again after the 1st IV fluid did not show much improvement the patient also will be provided with eight units of insulin regular The patient care will be transferred to awaiting the improvement Lab Data Labs: Lab Results 07/15/23 07/15/23 07/15/23 Range/Units 16:45 18:05 19:21 Sodium 128 L 132 L (136-145) mmol/L Potassium 5.3 H 5.1 (3.5-5.1) mmol/L Chloride 96 L 99 (98-107) mmol/L Carbon Dioxide 26.5 25.7 (21.0-32.0) mmol/L Anion Gap 10.8 12.4 BUN 15.0 16.0 (7.0-18.0) mg/dL Creatinine 0.93 0.95 (0.55-1.02) mg/dL Est GFR ( Amer) >60 >60 (>=60) Est GFR (Non-Af Amer) >60 >60 (>=60) BUN/Creatinine Ratio 16.1 16.8 Glucose 513 H* 563 H* (74-106) mg/dL Calcium 9.3 9.3 (8.5-10.1) mg/dL Phosphorus 3.3 (2.6-4.7) mg/dL Magnesium 1.9 (1.8-2.4) mg/dL Total Bilirubin 0.2 0.2 (0.2-1.0) mg/dL AST 14 L 13 L (15-37) U/L ALT 25 24 (14-59) U/L Alkaline Phosphatase 108 105 (46-116) U/L Total Protein 7.1 6.9 (6.4-8.2) g/dL Albumin 2.4 L 2.4 L (3.4-5.0) g/dL Globulin 4.7 4.5 g/dL Albumin/Globulin Ratio 0.5 0.5 Urine Color Lt. yellow (YELLOW) Urine Clarity Clear (CLEAR) Urine pH 5.0 (5.0-9.0) Ur Specific [place] 1.010 (1.005-1.025) Urine Protein Negative (NEG/TRACE) mg/dL Urine Glucose (UA) >=1000 A (NEGATIVE) mg/dL Urine Ketones Negative (NEGATIVE) mg/dL Urine Occult Blood Negative (NEGATIVE) Urine Nitrite Negative (NEGATIVE) Urine Bilirubin Negative (NEGATIVE) Urine Urobilinogen 0.2 (0.2-1.0) EU/dL Ur Leukocyte Esterase Negative (NEGATIVE) Acetone, Qual Negative (NEGATIVE) POC Glucose 438 H (74-106) mg/dL 07/15/23 Range/Units 20:07 Sodium (136-145) mmol/L Potassium (3.5-5.1) mmol/L Chloride (98-107) mmol/L Carbon Dioxide (21.0-32.0) mmol/L Anion Gap BUN (7.0-18.0) mg/dL Creatinine (0.55-1.02) mg/dL Est GFR ( Amer) (>=60) Est GFR (Non-Af Amer) (>=60) BUN/Creatinine Ratio Glucose (74-106) mg/dL Calcium (8.5-10.1) mg/dL Phosphorus (2.6-4.7) mg/dL Magnesium (1.8-2.4) mg/dL Total Bilirubin (0.2-1.0) mg/dL AST (15-37) U/L ALT (14-59) U/L Alkaline Phosphatase (46-116) U/L Total Protein (6.4-8.2) g/dL Albumin (3.4-5.0) g/dL Globulin g/dL Albumin/Globulin Ratio Urine Color (YELLOW) Urine Clarity (CLEAR) Urine pH (5.0-9.0) Ur Specific [place] (1.005-1.025) Urine Protein (NEG/TRACE) mg/dL Urine Glucose (UA) (NEGATIVE) mg/dL Urine Ketones (NEGATIVE) mg/dL Urine Occult Blood (NEGATIVE) Urine Nitrite (NEGATIVE) Urine Bilirubin (NEGATIVE) Urine Urobilinogen (0.2-1.0) EU/dL Ur Leukocyte Esterase (NEGATIVE) Acetone, Qual (NEGATIVE) POC Glucose 408 H (74-106) mg/dL Discharge Plan Discharge Chief Complaint: Weakness Clinical Impression: Acute hyperglycemia Patient Disposition: Home, Self-Care Time of Disposition Decision: 20:15 Condition: Good Mode of Transportation: Private Vehicle Prescriptions / Home Meds: No Action Levemir U-100 Insulin 100 unit/mL solution 50 unit subcut .QHS 30 Days Qty: 10 0RF Levemir U-100 Insulin 100 unit/mL solution 20 unit subcut QAM 30 Days Qty: 6 0RF levofloxacin 750 mg tablet 750 mg PO DAILY 4 Days Qty: 4 0RF benzonatate 100 mg capsule 100 mg PO BID PRN (Reason: cough) Qty: 20 0RF amlodipine [Norvasc] 5 mg tablet 5 mg PO DAILY Qty: 30 0RF potassium chloride 20 mEq tablet extended release 20 meq PO BID 30 Days Qty: 60 0RF Humalog U-100 Insulin 100 unit/mL cartridge 5 unit subcut TID Qty: 15 0RF Instructions: Diabetic Hyperglycemia (ED) Stand Alone Forms: Portal Instructions Referrals: Physician,Non-Staff, MD [Primary Care Provider] - 1 week Discharge Date/Time: 07/15/23 20:27
[2023-07-15] MEDS: INSULIN REGULAR 300 UNITS/3 ML 8 UNIT SUBQ (20:05)
[2023-07-15 20:08] LABS: Glucometer 408 mg/dL (74-106)
--- NOTE | 2023-07-15 20:15 | ED.GENADUL1 ---
HPI - General Adult General Chief complaint: Weakness Stated complaint: WEAKNESS/DIZZY Time Seen by Provider: 07/15/23 16:43 Source: patient Mode of arrival: walk-in Limitations: no limitations History of Present Illness HPI narrative: The patient was initially seen by Dr. Garber and signed out to me after discussing the case with her thoroughly. The blood sugar is coming down and she received insulin and IV fluids. She feels better and is able to be discharged home. She hadn't taken her evening insulin. Please see her full history and physical. Related Data Previous Rx's Medication Instructions Recorded amlodipine 5 mg tablet (Norvasc) 5 mg PO DAILY #30 tabs 07/09/23 benzonatate 100 mg capsule 100 mg PO BID PRN cough #20 caps 07/09/23 insulin detemir U-100 100 unit/mL 20 unit (0.2 mL) subcut QAM 30 07/09/23 subcutaneous solution (Levemir days #6 mL U-100 Insulin) insulin detemir U-100 100 unit/mL 50 unit (0.5 mL) subcut .QHS 30 07/09/23 subcutaneous solution (Levemir days #10 mL U-100 Insulin) insulin lispro 100 unit/mL 5 unit (0.05 mL) subcut TID #15 mL 07/09/23 subcutaneous cartridge (Humalog U-100 Insulin) levofloxacin 750 mg tablet 750 mg PO DAILY 4 days #4 tabs 07/09/23 potassium chloride 20 mEq 20 meq PO BID 30 days #60 tabs 07/09/23 tablet,extended release Allergies Allergy/AdvReac Type Severity Reaction Status Date / Time [id number] Reductase AdvReac Severe Hives Verified 07/15/23 16:31 Inhibitor PFSH [facility] Medical History Diabetes mellitus ?E11.9 - Type 2 diabetes mellitus without complications (ICD-10) Social History Smoking status: Never smoker Exam Constitutional Vital Signs, click to edit/add: Last Vital Signs Temp 98.5 F 07/15/23 16:25 Pulse 92 H 07/15/23 18:58 Resp 20 07/15/23 18:58 BP 106/75 07/15/23 19:22 Pulse Ox 96 07/15/23 18:58 O2 Del Method Room Air 07/15/23 16:25 Course Vital Signs Vital signs: Vital Signs Temperature 98.5 F 07/15/23 16:25 Pulse Rate 100 H 07/15/23 16:25 Respiratory Rate 16 07/15/23 16:25 Blood Pressure 146/71 H 07/15/23 16:25 Pulse Oximetry 99 07/15/23 16:25 Oxygen Delivery Method Room Air 07/15/23 16:25 Temperature 98.5 F 07/15/23 16:25 Pulse Rate 92 H 07/15/23 18:58 Respiratory Rate 20 07/15/23 18:58 Blood Pressure 106/75 07/15/23 19:22 Pulse Oximetry 96 07/15/23 18:58 Oxygen Delivery Method Room Air 07/15/23 16:25 Medical Decision Making MDM Narrative Medical decision making narrative: blood sugar is coming down with IV fluids and insulin and she is able to be discharged. Treatment diagnosis and follow-up were discussed with the patient. Differential Diagnosis Differential Diagnosis: glycemia, noncompliance Lab Data Lab results reviewed: Yes I reviewed the patient's lab results Labs: Lab Results 07/15/23 07/15/23 07/15/23 Range/Units 16:45 18:05 19:21 Sodium 128 L 132 L (136-145) mmol/L Potassium 5.3 H 5.1 (3.5-5.1) mmol/L Chloride 96 L 99 (98-107) mmol/L Carbon Dioxide 26.5 25.7 (21.0-32.0) mmol/L Anion Gap 10.8 12.4 BUN 15.0 16.0 (7.0-18.0) mg/dL Creatinine 0.93 0.95 (0.55-1.02) mg/dL Est GFR ( Amer) >60 >60 (>=60) Est GFR (Non-Af Amer) >60 >60 (>=60) BUN/Creatinine Ratio 16.1 16.8 Glucose 513 H* 563 H* (74-106) mg/dL Calcium 9.3 9.3 (8.5-10.1) mg/dL Phosphorus 3.3 (2.6-4.7) mg/dL Magnesium 1.9 (1.8-2.4) mg/dL Total Bilirubin 0.2 0.2 (0.2-1.0) mg/dL AST 14 L 13 L (15-37) U/L ALT 25 24 (14-59) U/L Alkaline Phosphatase 108 105 (46-116) U/L Total Protein 7.1 6.9 (6.4-8.2) g/dL Albumin 2.4 L 2.4 L (3.4-5.0) g/dL Globulin 4.7 4.5 g/dL Albumin/Globulin Ratio 0.5 0.5 Urine Color Lt. yellow (YELLOW) Urine Clarity Clear (CLEAR) Urine pH 5.0 (5.0-9.0) Ur Specific [place] 1.010 (1.005-1.025) Urine Protein Negative (NEG/TRACE) mg/dL Urine Glucose (UA) >=1000 A (NEGATIVE) mg/dL Urine Ketones Negative (NEGATIVE) mg/dL Urine Occult Blood Negative (NEGATIVE) Urine Nitrite Negative (NEGATIVE) Urine Bilirubin Negative (NEGATIVE) Urine Urobilinogen 0.2 (0.2-1.0) EU/dL Ur Leukocyte Esterase Negative (NEGATIVE) Acetone, Qual Negative (NEGATIVE) POC Glucose 438 H (74-106) mg/dL 07/15/23 Range/Units 20:07 Sodium (136-145) mmol/L Potassium (3.5-5.1) mmol/L Chloride (98-107) mmol/L Carbon Dioxide (21.0-32.0) mmol/L Anion Gap BUN (7.0-18.0) mg/dL Creatinine (0.55-1.02) mg/dL Est GFR ( Amer) (>=60) Est GFR (Non-Af Amer) (>=60) BUN/Creatinine Ratio Glucose (74-106) mg/dL Calcium (8.5-10.1) mg/dL Phosphorus (2.6-4.7) mg/dL Magnesium (1.8-2.4) mg/dL Total Bilirubin (0.2-1.0) mg/dL AST (15-37) U/L ALT (14-59) U/L Alkaline Phosphatase (46-116) U/L Total Protein (6.4-8.2) g/dL Albumin (3.4-5.0) g/dL Globulin g/dL Albumin/Globulin Ratio Urine Color (YELLOW) Urine Clarity (CLEAR) Urine pH (5.0-9.0) Ur Specific [place] (1.005-1.025) Urine Protein (NEG/TRACE) mg/dL Urine Glucose (UA) (NEGATIVE) mg/dL Urine Ketones (NEGATIVE) mg/dL Urine Occult Blood (NEGATIVE) Urine Nitrite (NEGATIVE) Urine Bilirubin (NEGATIVE) Urine Urobilinogen (0.2-1.0) EU/dL Ur Leukocyte Esterase (NEGATIVE) Acetone, Qual (NEGATIVE) POC Glucose 408 H (74-106) mg/dL Discharge Plan Discharge Chief Complaint: Weakness Clinical Impression: Acute hyperglycemia Patient Disposition: Home, Self-Care Time of Disposition Decision: 20:15 Condition: Good Mode of Transportation: Private Vehicle Prescriptions / Home Meds: No Action Levemir U-100 Insulin 100 unit/mL solution 50 unit subcut .QHS 30 Days Qty: 10 0RF Levemir U-100 Insulin 100 unit/mL solution 20 unit subcut QAM 30 Days Qty: 6 0RF levofloxacin 750 mg tablet 750 mg PO DAILY 4 Days Qty: 4 0RF benzonatate 100 mg capsule 100 mg PO BID PRN (Reason: cough) Qty: 20 0RF amlodipine [Norvasc] 5 mg tablet 5 mg PO DAILY Qty: 30 0RF potassium chloride 20 mEq tablet extended release 20 meq PO BID 30 Days Qty: 60 0RF Humalog U-100 Insulin 100 unit/mL cartridge 5 unit subcut TID Qty: 15 0RF Instructions: Diabetic Hyperglycemia (ED) Stand Alone Forms: Portal Instructions Referrals: Physician,Non-Staff, MD [Primary Care Provider] - 1 week
== END 2023-07-15 20:27 | disposition home or self-care (01) ==
PROVIDERS: Emergency Medicine; Emergency Provider Emergency Medicine
DX: E11.65 Type 2 diabetes mellitus with hyperglycemia (principal); R42 Dizziness and giddiness; Z79.4 Long term (current) use of insulin
CPT/HCPCS: 36415; 80053; 81003; 82009; 83735; 84100; 93005; 96360; 96361; 99285

== ENCOUNTER 2023-10-25 11:29 | Emergency (ER) | payer OTHER, SELFPAY ==
[2023-10-25 11:35] VITALS: BP 100/71; PULSE 123; TEMP 36.9; O2SAT 96; BMI 26.1
[2023-10-25 11:37] VITALS: O2SAT 96
[2023-10-25 11:40] VITALS: PULSE 123
--- NOTE | 2023-10-25 11:45 | ECG_ITS ---
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
[2023-10-25 11:50] VITALS: PULSE 116; O2SAT 97
[2023-10-25 12:00] VITALS: PULSE 119; O2SAT 97
[2023-10-25] MEDS: 0.9 % SODIUM CHLORIDE 1,000 ML 999 ML IV ×2 (12:00→14:46)
[2023-10-25 12:10] VITALS: PULSE 115; O2SAT 98
[2023-10-25 12:20] LABS: Basophils Absolute Auto 0.1 10^3/uL (0.0-0.1); Basophils Percent Auto 0.7 % (0.2-2.0); Eosinophils Percent Auto 0.2 % (0.9-7.0); Hematocrit 50.6 % (36.0-48.0); Hemoglobin 16.3 g/dL (12.0-16.0); Immature Granulocytes Abs Auto 0.03 10^3/uL (0.00-0.03); Immature Granulocytes Pct Auto 0.4 % (0.0-0.5); Lymphocytes Absolute Auto 1.8 10^3/uL (1.2-3.8); Lymphocytes Percent Auto 21.7 % (20.5-60.0); Mean Corpuscular HGB Conc 32.2 g/dL (29.9-35.2); Mean Corpuscular Hemoglobin 28.8 pg (26.7-34.0); Mean Corpuscular Volume 89.4 fL (81.0-99.0); Mean Platelet Volume 10.5 fL (9.5-13.5); Monocytes Absolute Auto 0.6 10^3/uL (0.3-0.8); Monocytes Percent Auto 7.4 % (1.7-12.0); Neutrophils Absolute Auto 5.8 10^3/uL (1.4-6.5); Neutrophils Percent Auto 69.6 % (43.0-75.0); Platelet Count 331 10^3/uL (150-450); Red Blood Count 5.66 10^6/uL (4.20-5.40); Red Cell Distribution Width 12.7 % (11.0-15.0); White Blood Count 8.4 10^3/uL (4.0-11.0)
[2023-10-25 12:30] LABS: Anion Gap 24.2
[2023-10-25 12:34] LABS: Alanine Aminotransferase 25 U/L (14-59); Albumin Globulin Ratio 0.9; Albumin Level 3.7 g/dL (3.4-5.0); Alkaline Phosphatase 128 U/L (46-116); Aspartate Amino Transferase 14 U/L (15-37); BUN Creatinine Ratio 18.3; Bilirubin Total 0.6 mg/dL (0.2-1.0); Calcium 9.7 mg/dL (8.5-10.1); Carbon Dioxide 16.6 mmol/L (21.0-32.0); Chloride 97 mmol/L (98-107); Estimated GFR (African America >60 (>=60); Estimated GFR (Non-African Ame >60 (>=60); Globulin 4.3 g/dL; Glucose 320 mg/dL (74-106); Potassium 4.8 mmol/L (3.5-5.1); Sodium 133 mmol/L (136-145); Troponin I High Sensitivity 34.7 pg/mL (4.0-51.3)
[2023-10-25 14:27] LABS: Bilirubin Urine MODERATE (NEGATIVE); Blood Urine NEGATIVE (NEGATIVE); Clarity Urine CLEAR (CLEAR); Color Urine LT. YELLOW (YELLOW); Glucose Urine UA 500 mg/dL (NEGATIVE); Ketones Urine >=80 mg/dL (NEGATIVE); Leukocyte Esterase Urine NEGATIVE (NEGATIVE); Nitrite Urine NEGATIVE (NEGATIVE); Protein Urine 30 mg/dL (NEG/TRACE); Specific Gravity Urine >=1.030 (1.005-1.025); Urobilinogen Urine 0.2 EU/dL (0.2-1.0); pH Urine 5.5 (5.0-9.0)
[2023-10-25 14:30] LABS: Urine Microscopic Indicated YES
[2023-10-25 14:55] LABS: Bacteria Urine SMALL #/HPF (NONE SEEN); Cast Seen? NONE SEEN #/LPF (NONE SEEN); Crystals Seen? None Seen #/HPF (None Seen); Hyaline Casts Urine RARE; Mucus Urine TRACE (NONE SEEN); RBC Urine 0-2 #/HPF (0-2); Squamous Epithelial Cell Urine MODERATE #/LPF (NONE/RARE); Urine Culture Indicated YES; WBC Urine NONE SEEN #/HPF (NONE SEEN)
[2023-10-25 16:29] LABS: Glucometer 351 mg/dL (74-106)
--- NOTE | 2023-10-25 16:32 | ED_ITS ---
HPI HPI - General Adult General Chief complaint: Weakness Stated complaint: DEHYDRATED, WEAKNESS Time Seen by Provider: 10/25/23 12:02 Source: patient Mode of arrival: walk-in Limitations: no limitations History of Present Illness HPI narrative: Patient is a 53-year-old female who is coming on multiple complaints including weakness, fatigue, nausea no vomiting for the past 3-4 days. Patient is insulin diabetic. Patient is extremely noncompliant with her medical history medications area patient has no PCP. Patient has no advertising project manager. Patient has several excuses why she has no medical care currently, she is still taking medications that were prescribed from her last hospital stay. Patient feels that she is dehydrated. No headache or neck pain. Patient was admitted for DKA in July this year. Patient states she feels much better today than when she did when she was admitted for DKA in the past. She has no chest pain or shortness of breath. No vomiting. No diarrhea. No joint pain. Patient has been drinking the last 3-4 days, no other acute complaints. . All systems are negative except as noted/marked. All systems reviewed and otherwise negative. . Nurses note and vital signs reviewed and patient is not hypoxic. General: The patient appears well and in no apparent distress. Patient is resting comfortably on cart. Patient is not toxic, lethargic, or listless Skin: Warm, dry, no pallor noted. There is no rash noted. No petechiae, purpura. Head: Normocephalic, atraumatic, Full range of motion of cervical spinal no difficulty, no meningeal signs or symptoms. Eye: Normal conjunctiva, no drainage, EOMI. PERRL Ears, Nose, Mouth, and Throat: oral mucosa is moist. Nares patent. Mouth without vesicles. Cardiovascular: Regular Rate and Rhythm, no murmur, gallop, rub Respiratory: Patient is in no distress, no accessory muscle use, lungs are clear to auscultation, no wheezing, rales or rhonchi Back: non-tender, no CVA tenderness bilaterally to percussion. No CT LS midline pain GI: soft, no tenderness to palpation, no masses appreciated. No rebound, guarding, or rigidity noted. No flank pain bilateral, No distention. No peritoneal signs. Musculoskeletal: Patient has full range of motion of all of the extremities, no motor, sensory, or focal neurological deficits Neurological: A&O x3, normal speech Psychiatric: Cooperative Related Data Previous Rx's ?Medication ?Instructions ?Recorded amlodipine 5 mg tablet (Norvasc) 5 mg PO DAILY #30 tabs 07/09/23 benzonatate 100 mg capsule 100 mg PO BID PRN cough #20 caps 07/09/23 insulin detemir U-100 100 unit/mL 20 unit (0.2 mL) subcut QAM 30 07/09/23 subcutaneous solution (Levemir days #6 mL U-100 Insulin) insulin detemir U-100 100 unit/mL 50 unit (0.5 mL) subcut .QHS 30 07/09/23 subcutaneous solution (Levemir days #10 mL U-100 Insulin) insulin lispro 100 unit/mL 5 unit (0.05 mL) subcut TID #15 mL 07/09/23 subcutaneous cartridge (Humalog U-100 Insulin) levofloxacin 750 mg tablet 750 mg PO DAILY 4 days #4 tabs 07/09/23 potassium chloride 20 mEq 20 meq PO BID 30 days #60 tabs 07/09/23 tablet,extended release ondansetron 4 mg disintegrating 4 mg PO Q4H PRN nausea and 10/25/23 tablet vomiting 3 days #6 tabs Allergies Allergy/AdvReac Type Severity Reaction Status Date / Time [id number] Reductase AdvReac Severe Hives Verified 07/15/23 16:31 Inhibitor Opioid HPI Opioid Management Most Recent Opioid Data: Last Pain Scale 7 10/25/23 11:52 PFSH PFSH Medical History Diabetes mellitus ?E11.9 - Type 2 diabetes mellitus without complications (ICD-10) Social History Smoking status: Never smoker Exam Constitutional Vital Signs, click to edit/add: Last Vital Signs Temp 98.4 F 10/25/23 11:35 Pulse 115 H 10/25/23 12:10 Resp 20 10/25/23 11:35 BP 100/71 10/25/23 11:35 Pulse Ox 98 10/25/23 12:10 O2 Del Method Room Air 10/25/23 11:35 Course Vital Signs Vital signs: Vital Signs Temperature 98.4 F 10/25/23 11:35 Pulse Rate 123 H 10/25/23 11:35 Respiratory Rate 20 10/25/23 11:35 Blood Pressure 100/71 10/25/23 11:35 Pulse Oximetry 96 10/25/23 11:35 Oxygen Delivery Method Room Air 10/25/23 11:35 Temperature 98.4 F 10/25/23 11:35 Pulse Rate 115 H 10/25/23 12:10 Respiratory Rate 20 10/25/23 11:35 Blood Pressure 100/71 10/25/23 11:35 Pulse Oximetry 98 10/25/23 12:10 Oxygen Delivery Method Room Air 10/25/23 11:35 Medical Decision Making MDM Narrative Medical decision making narrative: Patient's lab work shows CO2 of 16, patient is hemoconcentrated with elevated hemoglobin and hematocrit. Patient blood sugars in the 300s. Patient says that she feels somewhat better after 1 L of fluid, and she is aware of her CO2 level XVI and sugar in the 300s. Patient was given a 2nd liter of IV fluid. Patient ambulated in the halls well no difficulty. Patient again tells me that she does not feel like she is in DKA at all, she felt better after 2 L of IV fluid. Patient has no PCP or an advertising project manager to follow-up with. Patient says she can follow-up with Dr. Gil, but she just needs to fill out the paperwork and turn it back in. Patient will continue to increase fluids at home, take medication as prescribed. Patient understands importance of him medically compliant especially with her history of diabetes and history of DKA. Patient feels better at discharge him like to go home. Lab Data Labs: Lab Results 10/25/23 10/25/23 10/25/23 Range/Units 11:50 13:46 16:28 WBC 8.4 (4.0-11.0) 10^3/uL RBC 5.66 H (4.20-5.40) 10^6/uL Hgb 16.3 H (12.0-16.0) g/dL Hct 50.6 H (36.0-48.0) % MCV 89.4 (81.0-99.0) fL MCH 28.8 (26.7-34.0) pg MCHC 32.2 (29.9-35.2) g/dL RDW 12.7 (11.0-15.0) % Plt Count 331 (150-450) 10^3/uL MPV 10.5 (9.5-13.5) fL Neut % (Auto) 69.6 (43.0-75.0) % Lymph % (Auto) 21.7 (20.5-60.0) % [place] % (Auto) 7.4 (1.7-12.0) % Eos % (Auto) 0.2 L (0.9-7.0) % Baso % (Auto) 0.7 (0.2-2.0) % Neut # (Auto) 5.8 (1.4-6.5) 10^3/uL Lymph # (Auto) 1.8 (1.2-3.8) 10^3/uL [place] # (Auto) 0.6 (0.3-0.8) 10^3/uL Eos # (Auto) 0.0 (0.0-0.7) 10^3/uL Baso # (Auto) 0.1 (0.0-0.1) 10^3/uL Abs Immat Gran (auto) 0.03 (0.00-0.03) 10^3/uL Imm/Tot Granulo (auto) 0.4 (0.0-0.5) % Sodium 133 L (136-145) mmol/L Potassium 4.8 (3.5-5.1) mmol/L Chloride 97 L (98-107) mmol/L Carbon Dioxide 16.6 L (21.0-32.0) mmol/L Anion Gap 24.2 BUN 15.0 (7.0-18.0) mg/dL Creatinine 0.82 (0.55-1.02) mg/dL Est GFR ( Amer) >60 (>=60) Est GFR (Non-Af Amer) >60 (>=60) BUN/Creatinine Ratio 18.3 Glucose 320 H (74-106) mg/dL Calcium 9.7 (8.5-10.1) mg/dL Total Bilirubin 0.6 (0.2-1.0) mg/dL AST 14 L (15-37) U/L ALT 25 (14-59) U/L Alkaline Phosphatase 128 H (46-116) U/L Troponin I High Sens 34.7 (4.0-51.3) pg/mL Total Protein 8.0 (6.4-8.2) g/dL Albumin 3.7 (3.4-5.0) g/dL Globulin 4.3 g/dL Albumin/Globulin Ratio 0.9 Urine Color Lt. yellow (YELLOW) Urine Clarity Clear (CLEAR) Urine pH 5.5 (5.0-9.0) Ur Specific [place] >=1.030 A (1.005-1.025) Urine Protein 30 A (NEG/TRACE) mg/dL Urine Glucose (UA) 500 A (NEGATIVE) mg/dL Urine Ketones >=80 A (NEGATIVE) mg/dL Urine Occult Blood Negative (NEGATIVE) Urine Nitrite Negative (NEGATIVE) Urine Bilirubin Moderate A (NEGATIVE) Urine Urobilinogen 0.2 (0.2-1.0) EU/dL Ur Leukocyte Esterase Negative (NEGATIVE) Urine RBC 0-2 (0-2) #/HPF Urine WBC None seen (NONE SEEN) #/HPF Ur Squamous Epith Cells Moderate A (NONE/RARE) #/LPF Urine Crystals None seen (None Seen) #/HPF Urine Bacteria Small A (NONE SEEN) #/HPF Urine Casts None seen (NONE SEEN) #/LPF Hyaline Casts Rare Urine Mucus Trace A (NONE SEEN) Ur Culture Indicated? Yes POC Glucose 351 H (74-106) mg/dL Discharge Plan Discharge Stand Alone Forms: Portal Instructions Chief Complaint: Weakness Clinical Impression: Hyperglycemia, Flu-like symptoms, Nausea, Dehydration Patient Disposition: Home, Self-Care Time of Disposition Decision: 16:26 Condition: Fair Prescriptions / Home Meds: New ondansetron 4 mg tablet,disintegrating 4 mg PO Q4H PRN (Reason: nausea and vomiting) 3 Days Qty: 6 0RF No Action Levemir U-100 Insulin 100 unit/mL solution 50 unit subcut .QHS 30 Days Qty: 10 0RF Levemir U-100 Insulin 100 unit/mL solution 20 unit subcut QAM 30 Days Qty: 6 0RF levofloxacin 750 mg tablet 750 mg PO DAILY 4 Days Qty: 4 0RF benzonatate 100 mg capsule 100 mg PO BID PRN (Reason: cough) Qty: 20 0RF amlodipine [Norvasc] 5 mg tablet 5 mg PO DAILY Qty: 30 0RF potassium chloride 20 mEq tablet extended release 20 meq PO BID 30 Days Qty: 60 0RF Humalog U-100 Insulin 100 unit/mL cartridge 5 unit subcut TID Qty: 15 0RF Print Language: Slovak Instructions: Dehydration (ED), Acute Nausea and Vomiting (ED), Diabetic Hyperglycemia (ED) Additional Instructions: Continue to increase fluids at home. You must follow-up with Dr. Gil or establish a PCP to help manage your ongo ing medical etiologies and diabetes. Use nausea medication as needed to help increase fluids at home. Referrals: Physician,Non-Staff, [Primary Care Provider] - 1 week Shaikh Gil MD [Physician] - 1 week Discharge Date/Time: 10/25/23 16:35
--- NOTE | 2023-10-28 15:21 | PC.NURSE ---
10/28/[address] dietrich reviewed pt urine c+s from 10/25/23 nno at this time. S Boby DOWNS
== END 2023-10-25 16:35 | disposition home or self-care (01) ==
PROVIDERS: Emergency Provider Emergency Medicine
DX: E86.0 Dehydration (principal); R11.0 Nausea; E11.65 Type 2 diabetes mellitus with hyperglycemia; R53.1 Weakness; R53.83 Other fatigue; Z91.148 Patient's other noncompliance with medication regimen for other reason; Z79.4 Long term (current) use of insulin; Z79.899 Other long term (current) drug therapy
CPT/HCPCS: 36415; 80053; 81001; 84484; 85025; 87086; 87150; 87186; 93005; 99285

== ENCOUNTER 2024-12-25 13:07 | Outpatient (OUT) | payer OTHER, SELFPAY ==
--- OUTSIDE RECORDS SUMMARY | 2024-08-23 07:40 | XMS_ITS ---
Author Organization [facility] Address [address] [place] [address] Care Team Providers Care Machine Records Units Supervisor Name Role Phone Arabella Le Primary Care Provider Camilla Do Unavailable [phone] Reason For Referral Reason DENIED.............. .....................NOT SCHEDULED........................................[facility] MRI THORACIC TO BE DONE AT [place] Diagnosis 1 Mid back pain (M54.9 ) Referral Organization [facility] Referring Provider First Name Franci Referring Provider Last Name Cora Referring Provider Speciality Orthopedic Surgery Referred Organization [facility] Procedure 1 MRI Thoracic Spine w /o Dye ([id number]) General Notes Karli Gongora 2024 11:25:34 AM >Chloe Kayla 08/23/2024 11:32:57 AM > WAITING ON TODAY'S OFFICE NOTEChloe Kayla 08/28/2024 12:34:53 PM > AUTHORIZATION REQUEST SUBMITTED WITH CLINICALS VIA [facility], TRACKING # [id number] Kayla 09/04/2024 07:53:03 AM > PENDING PER DAMIAN.Chloe Kayla 09/04/2024 01:05:00 PM > CASE PENDING ADDITIONAL INFORMATION PER FAX BACK FROM [facility]. THEY'RE NEEDING NOTES SHOWING THAT PATIENT HAS TRIED AND FAILED 6 WEEKS OF PHYSICAL THERAPY WITHIN THE LAST 6 MONTHS.Chloe Kayla 09/05/2024 07:42:08 AM > CASE NOW DENIED PER FAX BACK FROM [facility]. SCANNED INTO CHART., Gladis Devine 09/05/2024 10:01:07 AM > faxed Referral Priority Routine REASON FOR VISIT Left-sided thoracic/lateral chest wall pain Medications Medication SIG (Take, Route, Frequency, Duration) Notes Start Date End Date Status Lantus Active Lispro Active Social History Tobacco Use: Social History Observation Description Date Details (start date - stop date) Former Smoker NA - NA AUDIT-C (Standard) Question Answer Notes Did you have a drink containing alcohol in the p ast year? No Points 0 Interpretation Negative Tobacco Control (Standard) Question Answer Notes Tobacco use: Former smoker Problems Problem Type SNOMED Code ICD Code Onset Dates Problem Status W/U Status Risk Notes Problem 11550168 Thoracic radiculopathy (M54.14) Active confirmed Problem 433942166 Thoracic spine pain (M54.6) Active confirmed Vital Signs Height 5'7 in 08/23/2024 Weight 178 lbs 08/23/2024 BMI 27.88 08/23/2024 Encounters Encounter Location Date Provider Diagnosis [facility] Office [address] [place] [address] [place] [address] 08/23/2024 [facility] Thoracic radiculopathy M54.14 and Thoracic spine pain M54.6 Assessments Encounter Date Diagnosis (ICD Code) Assessment Notes Treatment Notes Treatment Clinical Notes Section Notes 08/23/2024 Thoracic radiculopathy (ICD-10 - M54.14) 1. Thoracic pa in and radiculopathy 08/23/2024 Thoracic spine pain (ICD-10 - M54.6) 1. Thoracic pain and radiculopathy 08/23/2024 Other I discussed with patient today that her symptoms are possibly chronic from her shingles outbreak but I did order an MRI of the thoracic spine to rule out any neural compression. We will see her back in the office after imaging is obtained to review and offer further recommendatio ns. The patient is very much in agreement with the treatment and/or diagnostic plan set forth and all questions were answered to the patient's satisfaction. Thanks once again. If we can be of further service to your patients with disorders of the spine, cervical, thoracic, or lumbar, please do not hesitate to contact Dr. Hernandez. Best regards, 1. Thoracic pain and radiculopathy Plan Of Treatment Treatment Notes Assessment Notes Other I discussed with patient today that her symptoms are possibly chronic from her shingles outbreak but I did order an MRI of the thoracic spine to rule out any neural compression. We will see her back in the office after imaging is obtained to review and offer further recommendations. The patient is very much in agreement with the treatment and/or diagnostic plan set forth and all questions were answered to the patient's satisfaction. Thanks once again. If we can be of further service to your patients with disorders of the spine, cervical, thoracic, or lumbar, please do not hesitate to contact Dr. Hernandez. Best regards, Pending Test Test Name Order Date MRI : Thoracic Spine W/O Contrast - 7214 6 08/23/2024 Referrals Referral Date Details 08/23/2024 08/23/2024, DENIED.. .................................NOT SCHEDULED........................................[facility] THORACIC TO BE DONE AT [facility] Details Follow Up: AFTER IMAGING, Re ason: Progress Notes * ANU YEUNG LDOB:1970 (54 yo F)Acc No.[id number]:08/23/2024 Patient: Lucy MULUGETARhina ANU Preet Provider: JETHRO Rodrigues :1970 A ge:54 Y S ex:Female Date:08/23/2024 Address:[address] [place], [place] Pcp:[facility] Subjective: * Chief Complaints: * L eft-sided thoracic/lateral chest wall pain * HPI: G eneral Follow Up Information: Dictated by Camilla Damon PA-C Thank you for referring your patient to see Dr. Hernandez in surgical spine consultation at the [facility]. Patient is a 54-year-old female that presents with complaints of left-sided thoracic pain that radiates to the lateral/anterior chest wall after a shingles outbreak in January. She has been under the care of her primary care physician for this and has also been seeing a chiropractor which does help. She denies any specific injury. This radiating pain has taken her to the ER twice now. She states that the best medication that has helped her is the Toradol injection given at the ER. She has tried steroids, gabapentin, muscle relaxers. The gabapentin and muscle relaxers make her dizzy so she does not like to take them. She did have to get a loop recorder after presenting to the ER after taking gabapentin as she was tachycardic and hypotensive. She is doing physical therapy. Current VAS score of 6 out of 10. Sitting, lying on her side and back help relieve her pain. She has missed work from this and it is hard to get comfortable in any position. G eneral Info per Patient Report: Side affected is L eft. J oint or body part affected is?upper back. D ate of Injury: 09/04/2023. W ork related: N o. M otor vehicle accident: N o. M VA N o. T hird green party responsibility: N o. * ROS: E ar/Nose/Throat: Loss of Hearing Y es. E yes: Glasses/ Contacts Y es. G astrointestinal: Frequent Constipation Y es. M usculoskeletal: Joint pain Y es. B ack Pain Y es. M uscle Pain?Yes. J oint Swelling Y es. G enitourinary: Urinate at Night More Than Once Y es. P sychiatric: Anxiety Y es. * Medical History: * Surgical History: N o Surgical History documented. * Family History: M other: diagnosed with Diabetes. F ather: diagnosed with Diabetes. * Social History: E xercise regularly D o you exercise? N o. D o you live W ith whom do you live? a lone. W hat is your place of residence? W here do you live? P rivate apartment.?Marital status M arital Status S stephan. A JAMI-C (Standard) D id you have a drink containing alcohol in the past year? N o, P oints 0 , I nterpretation N egative. T obacco Control (Standard) T obacco use: F ormer smoker. * Medications: T akingLispro Lantus Medication List reviewed and reconciled with the patientTaking Lispro Taking Lantus Medication List reviewed and reconciled with the patient * Allergies: n o[Allergies Verified] Objective: * Vitals: P ain Scale (NRS): 4, Ht: 5'7 , Wt: 178 lbs, BMI:27.88. * Examination: G eneral examination: O n examination, the patient is well-developed, well-nourished, well-groomed, alert and oriented x3, normal mood. Skin is intact in the thoracic area, no rash appreciated. Patient ambulates with nonantalgic gait. Non tender over the thoracic/lumbar spine. Mild tenderness with palpation of the left-sided thoracic paraspinal final musculature. 5/5 muscle strength bilateral lower extremities. Sensory intact lower extremities. Negative clonus and SLR bilaterally. 2+ and symmetric deep tendon reflexes bilateral lower extremities. X -ray Imaging Studies: T hree-view x-rays of the thoracic spine reviewed from [facility] from 08/12/2024 that were negative for acute fracture. Assessment: * Assessment: 1. T horacic spine pain - M54.6 (Primary) 2 . T horacic radiculopathy - M54.14 1. Thoracic pain and radicul opathy Plan: * Treatment: 2. O thers Notes: I discussed with patient today that her symptoms are possibly chronic from her shingles outbreak but I did order an MRI of the thoracic spine to rule out any neural compression. We will see her back in the office after imaging is obtained to review and offer further recommendations. The patient is very much in agreement with the treatment and/or diagnostic plan set forth and all questions were answered to the patient's satisfaction. Thanks once again. If we can be of further service to your patients with disorders of the spine, cervical, thoracic, or lumbar, please do not hesitate to contact Dr. Hernandez. Best regards, Referral To: Reason:DENIED............................... ....NOT SCHEDULED................................... .....[facility] MRI THORACIC TO BE DONE AT [place] * Procedure Codes: * Follow Up: A FTER IMAGING Forms: * Images: * Sign off status: Completed true * Provider: JETHRO Rodrigues Date: 0 08/23/2024 Generated for Printi sheree/Cesar/Isadora on: 0 12/25/2024 01:17 PM EDT History and Physical Notes * HPI (History of Present Illness) Category Sub-Category Detail Notes Category Not es General Follow Up Information Dictated by Camilla Damon PA-C Thank you for referring your patient to see Dr. Hernandez in surgical spine consultation at the [facility]. Patient is a 54-year-old female that presents with complaints of left-sided thoracic pain that radiates to the lateral/anterior chest wall after a shingles outbreak in January. She has been under the care of her primary care physician for this and has also been seeing a chiropractor which does help. She denies any specific injury. This radiating pain has taken her to the ER twice now. She states that the best medication that has helped her is the Toradol injection given at the ER. She has tried steroids, gabapentin, muscle relaxers. The gabapentin and muscle relaxers make her dizzy so she does not like to take them. She did have to get a loop recorder after presenting to the ER after taking gabapentin as she was tachycardic and hypotensive. She is doing physical therapy. Current VAS score of 6 out of 10. Sitting, lying on her side and back help relieve her pain. She has missed work from this and it is hard to get comfortable in any position. General Info per Patient Report Side affected is Left Joint or body part affected is upper patience k Work related: No Motor vehicle accident: No Date of Injury: 07/04/2024 Third green party responsibility: No MVA No Examination Category Sub-Category Detail Notes Category Not es General examination On exami nation, the patient is well-developed, well-nourished, well-groomed, alert and oriented x3, normal mood. Skin is intact in the thoracic area, no rash appreciated. Patient ambulates with nonantalgic gait. Non tender over the thoracic/lumbar spine. Mild tenderness with palpation of the left-sided thoracic paraspinal final musculature. 5/5 muscle strength bilateral lower extremities. Sensory intact lower extremities. Negative clonus and SLR bilaterally. 2+ and symmetric deep tendon reflexes bilateral lower extremities. X-ray Imaging Studies Three- view x-rays of the thoracic spine reviewed from [facility] from 08/12/2024 that were negative for acute fracture. Consultation Request Notes Referral Date Referring Provider Referred Provider Not es 08/23/2024 Franci Shepherd , CELIA..... ....................... .......NOT SCHEDULED......................... ...............[facility] MRI THORACIC TO BE DONE AT [place]
--- OUTSIDE RECORDS SUMMARY | 2024-11-15 06:50 | XMS_ITS ---
Author Organization [facility] Address [address] [place] [address] Care Team Providers Care Printed Circuit Board Panels Plater Name Role Phone Arabella Le Primary Care Provider Juan Hayes Unavailable [phone] Allergies No Known Allergies Reason For Referral Reason APPROVED............ .................NOT SCHEDULED..............................[facility] Diagnosis 1 Lumbar back pain (M5 4.50) Referral Organization [facility] Referring Provider First Name Franci Referring Provider Last Name [facility] Referring Provider Speciality Orthopedic Surgery Referred Organization [facility] Procedure 1 MRI Lumbar Spine w/o Dye ([id number]) General Notes Karli Gongora 2024 11:42:03 AM >, Clara Corona 11/15/2024 11:43:25 AM > WAITING ON TODAY'S OFFICE NOTE, Clara Corona 11/20/2024 02:12:12 PM > AUTHORIZATION REQUEST SUBMITTED WITH CLINICALS VIA [facility], TRACKING # [id number], Clara Corona 11/25/2024 11:31:33 AM > AUTHORIZATION # [id number] APPROVED AND VALID 11/20/24-01/19/25 PER FAX BACK FROM [facility]. 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 Low back pain 2. L4-5 spondyloli sthesis, grade 1 11/15/2024 Spondylolisthesis of thoracic region (ICD-10 - M43.14) 1. Low back pain 2. L4-5 spondyloli sthesis, grade 1 11/15/2024 Other Plan established by Dr. Hernandez. At this time, we will set the patient up with a MRI of the lumbar spine. She has been seen in the past for the thoracic spine but this is not her main issue at this time. She reports completing physical therapy with really no relief of her symptoms. We will see her back in our office after the testing is completed to discuss the results. The patient is very much in agreement with the treatment and/or diagnostic plan set forth and all questions were answered to the patient's satisfaction. Thanks once again. If we can be of further service to your patients with disorders of the spine, cervical, thoracic, or lumbar, please do not hesitate to contact Dr. Hernandez. Best regards, 1. Low back pain 2. L4-5 spondyloli sthesis, grade 1 Plan Of Treatment Treatment Notes Assessment Notes Other Plan established by Dr. Hernandez. At this time, we will set the patient up with a MRI of the lumbar spine. She has been seen in the past for the thoracic spine but this is not her main issue at this time. She reports completing physical therapy with really no relief of her symptoms. We will see her back in our office after the testing is completed to discuss the results. The patient is very much in agreement [...] Test Test Name Order Date MRI : Lumbosacral Spine W/O Contrast - 7 214711/15/2024 Referrals Referral Date Details 11/15/2024 11/15/2024, APPROVED .............................NOT SCHEDULED..............................[facility] MRI LUMBAR TO BE DONE AT [facility] Details Follow Up: AFTER IMAGING, Re ason: Progress Notes * GAMAL ANU LDOB:1970 (54 yo F)Acc No.[id number]:11/15/2024 Patient: ANU CAT Provider: Filomena Gerber PA-C :1970 A ge:54 Y S ex:Female Date:11/15/2024 Address:[address] [place], [place] [id number] Pcp:[facility] Subjective: * Chief Complaints: * L umbar pain * HPI: H PI: Dictated by Juan Gerber PA-C The patient returns to the office today a couple of months since her last appointment. At that time, she was seen for left-sided thoracic pain that radiated into the lateral rib cage and chest. Symptoms began following a shingles outbreak last summer. We set her up with a MRI of the thoracic spine which was denied by insurance. She reports doing physical therapy for her low back. She states her main complaint is her low back at this time. She did have some radiation of pain into the left buttock but feels this is doing better. She has been seeing the chiropractor because her hips keep popping out of place. She did initially have some numbness and tingling in the legs but this has improved. She has tried naproxen, other anti-inflammatories, cplk-enm-ocahbvu medications and oxycodone with only minimal relief. She reports completing physical therapy at [facility]. * Medical History: * Surgical History: N [...] and reconciled with the patient * Allergies: N .K.D.A.no[Allergies Verified] Objective: * Vitals: * Examination: G eneral examination: O n examination, the patient is well-developed, well-nourished, well-groomed, alert and oriented x3, normal mood. Limited lumbar ROM. 5/5 muscle strength bilateral lower extremities. Sensory intact lower extremities. X -ray Imaging Studies: N one done today. Assessment: * Assessment: 1. L umbar back pain - M54.50 (Primary) 2 . S pondylolisthesis of thoracic region - M43.14 1. Low back pain 2. L4-5 spondylolisthesis, grade 1. Plan: * Treatment: 2. S pondylolisthesis of thoracic region I maging: MRI : Lumbosacral Spine W/O Contrast - [id number] 3. O thers Notes: Plan established by Dr. Hernandez. At this time, we will set the patient up with a MRI of the lumbar spine. She has been seen in the past for the thoracic spine but this is not her main issue at this time. She reports completing physical therapy with really no relief of her symptoms. We will see her back in our office after the testing is completed to discuss the results. The patient is very much in agreement with the treatment and/or diagnostic plan set forth and all questions were answered to the patient's satisfaction. Thanks once again. If we can be of further service to your patients with disorders of the spine, cervical, thoracic, or lumbar, please do not hesitate to contact Dr. Hernandez. Best regards, * Procedure Codes: * Follow Up: A FTER IMAGING Forms: * Images: * Sign off status: Completed true * Provider: Filomena Gerber PA-C Date: 0 11/15/2024 Generated for Freida bentley/Cesar/Isadora on: 0 12/25/2024 01:17 PM EDT History and Physical Notes * HPI (History of Present Illness) Category Sub-Category Detail Notes Category Not es HPI Dictated by Juan Gerber PA-C The patient returns to the office today a couple of months since her last appointment. At that time, she was seen for left-sided thoracic pain that radiated into the lateral rib cage and chest. Symptoms began following a shingles outbreak last summer. We set her up with a MRI of the thoracic spine which was denied by insurance. She reports doing physical therapy for her low back. She states her main complaint is her low back at this time. She did have some radiation of pain into the left buttock but feels this is doing better. She has been seeing the chiropractor because her hips keep popping out of place. She did initially have some numbness and tingling in the legs but this has improved. She has tried naproxen, other anti-inflammatories, uicy-oif-zsrxktv medications and oxycodone with only minimal relief. She reports completing physical therapy at [facility]. Examination Category Sub-Category Detail Notes Category Not es General examination On exami nation, the patient is well-developed, well-nourished, well-groomed, alert and oriented x3, normal mood. Limited lumbar ROM. 5/5 muscle strength bilateral lower extremities. Sensory intact lower extremities. X-ray Imaging Studies None d one today Consultation Request Notes Referral Date Referring Provider Referred Provider Not es 11/15/2024 Franci Shepherd , APPROVED... ....................... ...NOT SCHEDULED......................... .....[facility] MRI LUMBAR TO BE DONE AT [facility]
--- OUTSIDE RECORDS SUMMARY | 2024-12-20 06:00 | XMS_ITS ---
Author Organization [facility] Address [address] [place] [address] Care Team Providers Care Cullet Washer Name Role Phone Arabella Le Primary Care Provider Camilla Do Unavailable [phone] Reason For Referral Reason REFERRAL TO [facility] Diagnosis 1 Lumbar stenosis with neurogenic claudication (M48.062) Referral Organization [facility] Referring Provider First Name Franci Referring Provider Last Name [facility] Referring Provider Speciality Orthopedic Surgery Referred Organization [facility] Referred Address [address],[place], [place],[address], General Notes Karli Gongora 2024 10:43:22 AM >, Karli Gongora 12/24/2024 02:30:46 PM >PATIENT SCHEDULED TO BE SEEN TOMORROW 12/25/24. 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 Office [address] [place] [address] 12/20/2024 Camilla Damon Lumbar stenosis with neurogenic claudication M48.062 ; Neuroforaminal stenosis of lumbar spine M48.061 and Lumbar spondylosis M47.816 Assessments Encounter Date Diagnosis (ICD Code) Assessment Notes Treatment Notes Treatment Clinical Notes Section Notes 12/20/2024 Lumbar stenosis with neurogenic claudication (ICD-10 - M48.062) 12/20/2024 Neuroforaminal stenosis of lumbar spine (ICD-10 - M48.061) 12/20/2024 Lumbar spondylosis (ICD-10 - M47.816) Plan Of Treatment Referrals Referral Date Details 12/20/2024 12/20/2024, REFERRAL TO [facility], [address] [place] [address], [phone], Next Appt Details Follow Up: prn, Reason: Progress Notes * GAMAL ANU LDOB:1970 (54 yo F)Acc No.[id number]:12/20/2024 Patient: ANU CAT Provider: JETHRO Rodrigues :1970 A ge:54 Y S ex:Female Date:12/20/2024 Address:[address] [place], [place] [id number] Pcp:[facility] Subjective: * Chief Complaints: * 1 . Lumbar mri review. * Medical History: * Medications: T aking Lispro , Taking Lantus Objective: * Vitals: Assessment: * Assessment: 1. L umbar stenosis with neurogenic claudication - M48.062 (Primary) 2 . N euroforaminal stenosis of lumbar spine - M48.061 3 . L umbar spondylosis - M47.816 Plan: * Treatment: * Follow Up: p rn Forms: * Images: * Electronic signature of Wes Damon PA-C on 12/25/2024 at 01:17 PM EDT Sign off status: Pending * Provider: JETHRO Rodrigues Date: 0 12/20/2024 Generated for Freida bentley/Cesar/Veneciaitting on: 0 12/25/2024 01:17 PM EDT Consultation Request Notes Referral Date Referring Provider Referred Provider Not alen 12/20/2024 Franci Shepherd , [facility]ERRAL TO [facility]
--- OUTSIDE RECORDS SUMMARY | 2024-12-25 13:17 | XMS_ITS | Patient Health Record ---
Author Organization [facility] Address [address] [place] [address] Care Team Providers Care Environmental Health Inspector Name Role Phone Arabella Le Primary Care Provider Juan Hayes Unavailable [phone] Camilla Damon Unavailable [phone] Results Component Value Reference Range Notes MRI LUMBAR SPINE WO CONTRAST Reviewed date:12/11/2024 07:25:46 AM Interpretation: Performing Lab: Notes/Report: EXAM: MRI LUMBAR SPINE WO CONTRAST Performed at: [address] [address] Performed at: Reason For Referral Reason DENIED.............. .....................NOT SCHEDULED........................................[facility] MRI THORACIC TO BE DONE AT [place] Diagnosis 1 Mid back pain (M54.9 ) Referral Organization [facility] Referring Provider First Name Franci Referring Provider Last Name [facility] Referring Provider Speciality Orthopedic Surgery Referred Organization [facility] Procedure 1 MRI Thoracic Spine w /o Dye ([id number]) General Notes Karli Gongora 2024 11:25:34 AM >, Clara Corona 08/23/2024 11:32:57 AM > WAITING ON TODAY'S OFFICE NOTE, Clara Corona 08/28/2024 12:34:53 PM > AUTHORIZATION REQUEST SUBMITTED WITH CLINICALS VIA [facility], TRACKING # [id number], Clara Corona 09/04/2024 07:53:03 AM > PENDING PER [facility]., Clara Corona 09/04/2024 01:05:00 PM > CASE PENDING ADDITIONAL INFORMATION PER FAX BACK FROM [facility]. THEY'RE NEEDING NOTES SHOWING THAT PATIENT HAS TRIED AND FAILED 6 WEEKS OF PHYSICAL THERAPY WITHIN THE LAST 6 MONTHS., Clara Corona 09/05/2024 07:42:08 AM > CASE NOW DENIED PER FAX BACK FROM [facility]. SCANNED INTO CHART.Sybil Sara 09/05/2024 10:01:07 AM > faxed Referral Priority Routine Reason APPROVED............ .................NOT SCHEDULED..............................[facility] MRI LUMBAR TO BE DONE AT [place] Diagnosis 1 Lumbar back pain (M5 4.50) Referral Organization [facility] Referring Provider First Name Franci Referring Provider Last Name [facility] Referring Provider Speciality Orthopedic Surgery Referred Organization [facility] Procedure 1 MRI Lumbar Spine w/o Dye ([id number]) General Notes Karli Gongora 2024 11:42:03 AM >, Clara Corona 11/15/2024 11:43:25 AM > WAITING ON TODAY'S OFFICE NOTEChloe Kayla 11/20/2024 02:12:12 PM > AUTHORIZATION REQUEST SUBMITTED WITH CLINICALS VIA [facility], TRACKING # [id number], Clara Corona 11/25/2024 11:31:33 AM > AUTHORIZATION # [id number] APPROVED AND VALID 11/20/24-01/19/25 PER FAX BACK FROM [facility]. SCANNED INTO CHART AND FAXED TO JUNIE LEYVA.Sybil Sara 11/25/2024 11:57:40 AM > order faxed Referral Priority Routine Reason [facility] Diagnosis 1 Lumbar stenosis with neurogenic claudication (M48.062) Referral Organization [facility] Referring Provider First Name Franci Referring Provider Last Name Cora Referring Provider Speciality Orthopedic Surgery Referred Organization [facility] Referred Address [address] [place] [address],[address], [address],[place], [place],[address], General Notes Karli Gongora 2024 10:43:22 AM >, Karli Gongora 12/24/2024 02:30:46 PM >PATIENT SCHEDULED TO BE SEEN TOMORROW 12/25/24. 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 Problem 929476008 Neuroforaminal stenosis of lumbar spine (M48.061) Active confirmed Vital Signs Height 5'7 in 08/23/2024 Weight 178 lbs 08/23/2024 BMI 27.88 08/23/2024 Encounters Encounter Location Date Provider Diagnosis [facility] [address] [facility] [place] [address] [place] [address] 12/20/2024 [facility] Lumbar stenosis with neurogenic claudication M48.062 ; Neuroforaminal stenosis of lumbar spine M48.061 and Lumbar spondylosis M47.816 [facility] [address] [place] [address] [facility] radiculopathy M54.14 and Thoracic spine pain M54.6 [facility] [address] [place] [address] [place] [address] 11/15/2024 Juan Gerber Lumbar back pain M54 .50 and Spondylolisthesis of thoracic region M43.14 Assessments Encounter Date Diagnosis (ICD Code) Assessment Notes Treatment Notes Treatment Clinical Notes Section Notes 08/23/2024 Thoracic radiculopathy (ICD-10 - M54.14) 1. Thoracic pain and radiculopathy 08/23/2024 Thoracic spine pain (ICD-10 - M54.6) 1. Thoracic pain and radiculopathy 11/15/2024 Spondylolisthesis of thoracic region (ICD-10 - M43.14) 1. Low back pain 2. L4-5 spondylolisthes is, grade 1 11/15/2024 Lumbar back pain (ICD-10 - M54.50) 1. Low back pain 2. L4-5 spondylolisthes is, grade 1 12/20/2024 Lumbar stenosis with neurogenic claudication (ICD-10 - M48.062) 12/20/2024 Neuroforaminal stenosis of lumbar spine (ICD-10 - M48.061) 12/20/2024 Lumbar spondylosis (ICD-10 - M47.816) 08/23/2024 Other I discussed with patient today that her symptoms are possibly chronic from her shingles outbreak but I did order an MRI of the thoracic spine to rule out any neural compression. We will see her back in the office after imaging is obtained to review and offer further recommendation s. The patient is very much in agreement with the treatment and/or diagnostic plan set forth and all questions were answered to the patient's satisfaction. Thanks once again. If we can be of further service to your patients with disorders of the spine, cervical, thoracic, or lumbar, please do not hesitate to contact Dr. Hernandez. Best regards, 1. Thoracic pain and radiculopathy 11/15/2024 Other Plan established by Dr. Hernandez. [...] regards, 1. Low back pain 2. L4-5 spondylolisthes is, grade 1 Plan Of Treatment Pending Test Test Name Order Date MRI : Lumbosacral Spine W/O Contrast - 7 2148 11/15/2024 MRI : Thoracic Spine W/O Contrast - [id number] 6 08/23/2024 Insurance Providers Payer Name Payer Address Payer Phone Subscriber Number Group Number Insured Name Patient Relationship to Insured Coverage Start Date Coverage End Date Medicaid [employer] [place] [address] [place] [address] [id number] ANU YEUNG Self - patient is the insured Medical (General) History Medical History History ICD Code Abnormal Heart Rhythm Liver Disease Diabetes Kidney stones Sleep apnea Do you have a CPAP machine? Yes
--- OUTSIDE RECORDS SUMMARY | 2024-12-25 13:17 | XMS_ITS | Clinical Summary ---
Author Organization [facility] Address [address] [place] [address] Care Team Providers Care Aircraft Electronics Technical Officer Name Role Phone Unavailable Primary Care Provider Unavailabl e Social History Tobacco Use Types Packs/Day Years Used Date Smoking Tobacco: Never Assessed Comments Unknown Sex and Gender Information Value Date Recorded Sex Assigned at Not on file Legal Sex Female 8:21 PM EDT Gender Identity Not on file Sexual Orientation Not on file Last Filed Vital Signs Vital Sign Reading Time Taken Comments Blood Pressure 132/74 11/02/2017 12:00 PM EDT Pulse - - Temperature - - Respiratory Rate - - Oxygen Saturation - - Inhaled Oxygen Concentration - - Weight 92.5 kg (204 lb) 11/02/2017 12:00 PM EDT Height 167.6 cm (5' 6 ) 11/02/2017 12:00 PM EDT Body Mass Index 32.93 11/02/2017 12:00 PM EDT Plan of Treatment Not on file
--- OUTSIDE RECORDS SUMMARY | 2024-12-25 13:17 | XMS_ITS | Encounter Summary ---
Author Organization [facility] Address [address] [place] [address] Care Team Providers Care Card Lacer Jacquard Name Role Phone Unavailable Primary Care Provider Unavailabl e Reason for Visit * Reason Comments Med Refill Encounter Details Date Type Department Care Team (Latest Contact Info) Description 02/25/2024 Refill [facility] Shaikh Gil MD [address] [place] [phone] Social History Tobacco Use Types Packs/Day Years Used Date Smoking Tobacco: Never Assessed Comments Unknown Sex and Gender Information Value Date Recorded Sex Assigned at Not on file Legal Sex Female 8:21 PM EDT Gender Identity Not on file Sexual Orientation Not on file documented as of this encounter Plan of Treatment Not on file documented as of this encounter Visit Diagnoses Not on filedocumented in this encounter
--- NOTE | 2024-12-25 14:05 | P.CN_ITS ---
Consult Note: HPI Data of Consult Patient: new to practice Consult date: 12/25/24 Requesting Physician: Jackie Swanson NP Primary Care Provider: Non-Staff Physician, MD Consult Narrative Reason for consult: upper back and low back pain Narrative: Casandra Gonzalez a 54 year old female presents for chronic thoracic pain post shingles 2023 and low back pain. pt has had moderate to severe low back pain >6 months unresponsive to > 6 weeks of PT and chiropractor, heat, ice, tylenol, nsaids. pain today 6/10 increasing to 10/10 burning/aching. Pt was evaluated by Dr Mir who recommends lumbar fusion but pt is not interested in surgical intervention at this time, would like to discuss interventional therapy. cc:: CC: Jackie Swanson NP Review of Systems ROS Musculoskeletal Reports: back pain PFSH PFSH Medical History Diabetes mellitus ?E11.9 - Type 2 diabetes mellitus without complications (ICD-10) Social History Smoking status: Never smoker Meds Home Medications and Allergies Home Medications ?Medication ?Instructions ?Recorded ?Confirmed ?Type amlodipine 5 mg tablet (Norvasc) 5 mg PO DAILY #30 tab s 07/09/23 Rx benzonatate 100 mg capsule 100 mg PO BID PRN cough #20 caps 07/09/23 Rx insulin detemir U-100 100 unit/mL 20 unit (0.2 mL) sub cut QAM 30 07/09/23 Rx subcutaneous solution (Levemir days #6 mL U-100 Insulin) insulin detemir U-100 100 unit/mL 50 unit (0.5 mL) sub cut .QHS 30 07/09/23 Rx subcutaneous solution (Levemir days #10 mL U-100 Insulin) insulin lispro 100 unit/mL 5 unit (0.05 mL) subcut TID #15 mL 07/09/23 Rx subcutaneous cartridge (Humalog U-100 Insulin) levofloxacin 750 mg tablet 750 mg PO DAILY 4 days #4 t abs 07/09/23 Rx potassium chloride 20 mEq 20 meq PO BID 30 days #60 ta bs 07/09/23 Rx tablet,extended release ondansetron 4 mg disintegrating 4 mg PO Q4H PRN nausea and 10/25/23 Rx tablet vomiting 3 days #6 tabs Allergies Allergy/AdvReac Type Severity Reaction Status Date / Time Alphmfa-KKK-OfP Reductase AdvReac Severe Hives Verified 07/15/23 16:31 Inhibitor Exam Back & Pelvis Thoracic spine/upper back: ROM limited, pain with ROM, thoracic spinal tenderness and paraspinal muscle tenderness Lumbar spine/lower back: pain with ROM, lumbar spinal tenderness and straight leg raise negative bilaterally Sacroiliac joints: SI joints normal Assessment and Plan Assessment and Plan (1) Lumbar spondylosis: Assessment and Plan: The patient has had over 3 months of moderate to severe low back pain with functional impairment and inadequate response to conservative care including NSA IDS (unless there are contraindication such as concurrent blood thinners), multiple oral or topical pain medications, and home exercise program/physical therapy.? Patient has completed >6 weeks of guided home exercise program and/or formal physical therapy program without relief of their symptoms.? We discussed the risks and benefits of the procedure with the patient, and we are NOT planning on using sedation as outlined in the guidelines from Medicare unless there is a documented reason that sedation would be strongly recommended.?? ?The procedure will be completed with fluoroscopic guidance.? (2) Intercostal neuralgia: (3) Spondylolisthesis, lumbar region: Plan 54 year old female with chronic middle and low back pain. At this time will update lumbar xray with flexion to assess instability. bilateral L4-5 l5-S1 MBB x2 working towards RFA. defer medication management as pt is high risk with numerous uncontrolled chronic health conditions including DM and tachycardia, per pt she has refused medication from cardiology to assist in rate control. f/u after each MBB
== END 2024-12-25 13:08 | disposition home or self-care (01) ==
LOC: PM 13:09
PROVIDERS: Visit Provider Nurse Practitioner
DX: M47.816 Spondylosis without myelopathy or radiculopathy, lumbar region (principal); G58.0 Intercostal neuropathy; M43.16 Spondylolisthesis, lumbar region
CPT/HCPCS: G0463

== ENCOUNTER 2024-12-25 14:25 | Outpatient (OUT) | payer OTHER, SELFPAY ==
--- OUTSIDE RECORDS SUMMARY | 2016-07-06 14:44 | XMS_ITS | Encounter Summary ---
Author Organization [facility] Address [address] [place] [address] Care Team Providers Care Ferry Captain Name Role Phone Ade Lloyd JOLENE - DAM WORKER Primary Care Provider Reason for Referral * Imaging (Routine) - Closed Specialty Diagnoses / Procedures Referred By James martinez Referred To Contact Radiology Diagnoses Abnormal CT scan Calcification of ovary Procedures MRI Pelvis W WO Contrast MRI Abdomen Pelvis W WO Contrast Grady Barrera MD Phone: tel: fax: Referral ID Status Reason Start Date Expiration Date Visits Re quested Visits Authorized [id number] Closed 06/27/2016 06/27/2017 1 1 Encounter Details Date Type Department Care Team (Latest Contact Info) Description 07/06/2016 1:44 PM EST Hospital Encounter [facility] MRI [address] [place] [address] Grady Barrera MD 27 [facility] [address] scan; Calcification of [...] Description 01/27/2025 9:20 AM EDT Office Visit [facility] [address] [place] [address] Waylon Moy MD 27 [facility] [address] [place] [address] Postherpetic polyneuropathy documented as of [...] - 20 mg/dL 07/06/2016 2:40 PM EST [facility] Creatinine 0.55 0.50 - 0.90 [...] Kidney failure: <15 mL/min/1.73sq m Performed at [facility] [address] [place] [address] ([phone] GFR Staging NOT REPORTED [facility] 07/06/2016 2:20 PM EST 07/06/2016 2:21 PM EST us Grady Barrera MD CHEMISTRY ORDERABLES Final Re sult [facility] [address] [place] [address], [facility] [phone] [facility] documented in this encounter Visit [...] documented as of this encounter Care Teams Ferry Captain Relationship Specialty Start Date End Date Ade Lloyd, REGISTERED NURSE [employer] - DAM WORKER [address] [place] [address] PCP - General Certified Nurse Practitioner 08/01/14 02/10/20 documented as of this encounter
--- OUTSIDE RECORDS SUMMARY | 2024-12-25 14:30 | XMS_ITS | Encounter Summary ---
Author Organization [facility] Address [address] [place] [address] Care Team Providers Care Quote Clerk Name Role Phone Arabella Le L MRI CT TECH - EXHAUST WORKER Primary Care Provider Reason for Visit * Reason Comments Medication Refill Encounter Details Date Type Department Care Team (Late Contact Info) Description 10/09/2016 Refill [facility]IMARY [facility] [place] [address] [place] [address] Ade Llody, MRI CT TECH - HEALTH CLUB ATTENDANT [address] [phone] Medication Refill Social History Tobacco Use Types Packs/Day Years Used Date Smoking Tobacco: Every Day Cigarettes 1.5 30 Smokeless Tobacco: Never Alcohol Use Standard Drinks/Week Comments No 0 (1 standard drink = 0.6 oz pur e alcohol) Comments No Sex and Gender Information Value Date Recorded Sex Assigned at Not on file Legal Sex Female 11:44 AM EST Gender Identity Not on file Sexual Orientation Not on file documented as of this encounter Plan of Treatment Upcoming Encounters Date Type Department Care Team (Late Contact Info) Description 01/27/2025 9:20 AM EDT Office Visit [facility] Neurology [address] [place] [address] Waylon Moy MD [address] [place] [address] Dr [address] [place] [address] Postherpetic polyneuropathy documented as of this encounter Visit Diagnoses Not on filedocumented in this encounter Additional Health Concerns Infection Onset Date Last Indicated Resolved Time C-diff Rule Out 04/14/2021 04/14/2021 documented as of this encounter Care Teams Quote Clerk Relationship Specialty Start Date End Date Le Bell APRN - EXHAUST WORKER [address] [place] [phone] PCP - General Certified Nurse Practitioner 08/04/24 documented as of this encounter
--- OUTSIDE RECORDS SUMMARY | 2024-12-25 14:30 | XMS_ITS | Encounter Summary ---
Author Organization [facility] Address [address] [place] [address] Care Team Providers Care Zinc Chloride Operator Name Role Phone Arabella Le L CLEAN ENERGY POLICY ANALYST - ELECTRICIAN OUTSIDE Primary Care Provider Reason for Visit * Reason Comments Medication Refill Encounter Details Date Type Department Care Team (Late Contact Info) Description 03/26/2017 Refill [facility] [place] [address] [place] [address] Ade Lloyd APRN - TRAVEL INFORMATION CENTER SUPERVISOR [address] [place] [address] Medication Refill Social History Tobacco Use Types [...] Description 01/27/2025 9:20 AM EDT Office Visit [facility] Neurology [address] [place] [address] Waylon Moy MD [address] [place] [address] Dr [address] [place] [address] Postherpetic polyneuropathy documented as of this encounter Visit Diagnoses Not on filedocumented in this encounter Additional Health Concerns Infection Onset Date Last Indicated Resolved Time C-diff Rule Out 04/14/2021 04/14/2021 documented as of this encounter Care Teams Zinc Chloride Operator Relationship Specialty Start Date End Date Le Bell APRN - ELECTRICIAN OUTSIDE [address] [place] [phone] PCP - General Certified Nurse Practitioner 08/04/24 documented as of this encounter
--- OUTSIDE RECORDS SUMMARY | 2024-12-25 14:30 | XMS_ITS | Encounter Summary ---
Author Organization [facility] Address [address] [place] [address] Care Team Providers Care Finish Filer Name Role Phone Arabella Le L ERP IMPLEMENTATION CONSULTANT - CONTRACTS SPECIALIST Primary Care Provider Reason for Visit * Reason Comments Medication Refill Encounter Details Date Type Department Care Team (Late Contact Info) Description 10/26/2016 Refill [facility] PRIMARY CARE [place] [address] [place] [address] Ade Lloyd, ERP IMPLEMENTATION CONSULTANT - MAXILLOFACIAL SURGEON [address] [phone] Medication Refill Social History Tobacco Use Types [...] 9:20 AM EDT Office Visit [facility] Neurology [address] [place] [address] Waylon Moy MD [address] [place] [address] Dr [address] [place] [address] Postherpetic polyneuropathy documented as of this encounter Visit Diagnoses Not on filedocumented in this encounter Additional Health Concerns Infection Onset Date Last Indicated Resolved Time C-diff Rule Out 04/14/2021 04/14/2021 documented as of this encounter Care Teams Finish Filer Relationship Specialty Start Date End Date Le Bell APRN - CONTRACTS SPECIALIST [address] [place] [phone] PCP - General Certified Nurse Practitioner 08/04/24 documented as of this encounter
--- OUTSIDE RECORDS SUMMARY | 2024-12-25 14:30 | XMS_ITS | Encounter Summary ---
Author Organization [facility] Address [address] [place] [address] Care Team Providers Care Shuttleless Loom Weaver Name Role Phone Arabella Le L SNOWSPORT INSTRUCTOR - PANELBEATER Primary Care Provider Reason for Visit * Reason Comments Medication Refill Encounter Details Date Type Department Care Team (Late Contact Info) Description 11/17/2016 Refill [facility] Primary [facility] of [place] [address] [place] [address] Ade Lloyd APRN - SUBSURFACE AUGMENTEE ELINT OPERATOR [address] [place] [address] Medication Refill Social History Tobacco Use Types [...] Description 01/27/2025 9:20 AM EDT Office Visit [facility] Neurology [address] [place] [address] Waylon Moy MD [address] [place] [address] Dr [address] [place] [address] Postherpetic polyneuropathy documented as of this encounter Visit Diagnoses Not on filedocumented in this encounter Additional Health Concerns Infection Onset Date Last Indicated Resolved Time C-diff Rule Out 04/14/2021 04/14/2021 documented as of this encounter Care Teams Shuttleless Loom Weaver Relationship Specialty Start Date End Date Le Bell APRN - PANELBEATER [address] [place] [phone] PCP - General Certified Nurse Practitioner 08/04/24 documented as of this encounter
--- OUTSIDE RECORDS SUMMARY | 2024-12-25 14:30 | XMS_ITS | Encounter Summary ---
Author Organization [facility] Address [address] [place] [address] Care Team Providers Care Wood Car Builder Name Role Phone Le Bell BARREL CHARRER HELPER - POULTRY PICKER Primary Care Provider Encounter Details Date Type Department Care Team (Late Contact Info) Description 06/21/2021 Transcribe Orders [facility] [address] [place] [address] Le Bell, BARREL CHARRER HELPER - POULTRY PICKER [address] [place] [address] Social History Tobacco Use Types Packs/Day Years Used Date Smoking Tobacco: Former Cigarettes 1.5 30 0 07/25/1987 - 07/25/2017 Smokeless Tobacco: Never Alcohol Use Standard Drinks/Week Comments No 0 (1 standard drink = 0.6 oz pur e alcohol) PHQ-2 Answer Date Recorded PHQ-2 Score 2 10/17/2018 Comments No Sex and Gender Information Value Date Recorded Sex Assigned at Not on file Legal Sex Female 11:44 AM EST Gender Identity Not on file Sexual Orientation Not on file documented as of this encounter Plan of Treatment Upcoming Encounters Date Type Department Care Team ([facility] Contact Info) Description 01/27/2025 9:20 AM EDT Office Visit [facility] Neurology [address] [place] [address] Waylon Moy MD [address] [facility] [address] [place] [phone] Postherpetic polyneuropathy documented as of this encounter Visit Diagnoses Not on filedocumented in this encounter Additional Health Concerns Infection Onset Date Last Indicated Resolved Time C-diff Rule Out 04/14/2021 04/14/2021 documented as of this encounter Care Teams Wood Car Builder Relationship Specialty Start Date End Date Le Bell APRN - POULTRY PICKER [address] [place] [phone] PCP - General Certified Nurse Practitioner 08/04/24 documented as of this encounter
--- OUTSIDE RECORDS SUMMARY | 2024-12-25 14:31 | XMS_ITS | Encounter Summary ---
Author Organization [facility] [employer] [facility] Address [address] [place] [address] Care Team Providers Care Ornamental Bronze Worker Name Role Phone Arabella Le L STAKING PRESS OPERATOR - TENNIS DESK TEAM MEMBER Primary Care Provider Reason for Visit * Reason Comments Medication Refill Encounter Details Date Type Department Care Team (Late Contact Info) Description 09/06/2017 Refill [facility] PRIMARY [facility] [place] [address] [place] [address] Ade Lloyd, STAKING PRESS OPERATOR - MEETING MANAGER [address] [phone] Medication Refill Social History Tobacco Use Types [...] Description 01/27/2025 9:20 AM EDT Office Visit [facility] Neurology [address] [place] [address] Waylon Moy MD [address] [place] [address] Dr [address] [place] [address] Postherpetic polyneuropathy documented as of this encounter Visit Diagnoses Not on filedocumented in this encounter Additional Health Concerns Infection Onset Date Last Indicated Resolved Time C-diff Rule Out 04/14/2021 04/14/2021 documented as of this encounter Care Teams Ornamental Bronze Worker Relationship Specialty Start Date End Date Le Bell APRN - TENNIS DESK TEAM MEMBER [address] [place] [phone] PCP - General Certified Nurse Practitioner 08/04/24 documented as of this encounter
--- OUTSIDE RECORDS SUMMARY | 2024-12-25 14:31 | XMS_ITS | Encounter Summary ---
Author Organization [facility] [employer] [facility] Address [address] [place] [address] Care Team Providers Care Heel Stainer Name Role Phone Arabella Le L ELECTRICAL TECHNOLOGY INSTRUCTOR - SINTERING PRESS OPERATOR Primary Care Provider Reason for Visit * Reason Comments Medication Refill Encounter Details Date Type Department Care Team (Late Contact Info) Description 11/10/2016 Refill [facility] [place] [address] [place] [address] Ade Lloyd, ELECTRICAL TECHNOLOGY INSTRUCTOR - PORTRAIT PHOTOGRAPHER [address] [phone] Medication Refill Social History Tobacco Use Types [...] Description 01/27/2025 9:20 AM EDT Office Visit [facility] Neurology [address] [place] [address] Waylon Moy MD [address] [place] [address] Dr [address] [place] [address] Postherpetic polyneuropathy documented as of this encounter Visit Diagnoses Not on filedocumented in this encounter Additional Health Concerns Infection Onset Date Last Indicated Resolved Time C-diff Rule Out 04/14/2021 04/14/2021 documented as of this encounter Care Teams Heel Stainer Relationship Specialty Start Date End Date Le Bell APRN - SINTERING PRESS OPERATOR [address] [place] [phone] PCP - General Certified Nurse Practitioner 08/04/24 documented as of this encounter
--- OUTSIDE RECORDS SUMMARY | 2024-12-25 14:31 | XMS_ITS | Encounter Summary ---
Author Organization [facility] Address [address] [place] [address] Care Team Providers Care Personnel Research Psychologist Name Role Phone Arabella Le L ELECTRONIC SCALE SUBASSEMBLER - SURVEY PROJECT MANAGER Primary Care Provider Reason for Visit * Reason Comments Medication Refill Encounter Details Date Type Department Care Team (Late Contact Info) Description 11/02/2016 Refill [facility] [address] [place] [phone] Ade Lloyd, ELECTRONIC SCALE SUBASSEMBLER - BSA/AML COMPLIANCE OFFICER [address] [phone] Medication Refill Social History Tobacco Use Types [...] Description 01/27/2025 9:20 AM EDT Office Visit [facility] Neurology [address] [place] [address] Waylon Moy MD [address] [place] [address] [address] [place] [phone] Postherpetic polyneuropathy documented as of this encounter Visit Diagnoses Not on filedocumented in this encounter Additional Health Concerns Infection Onset Date Last Indicated Resolved Time C-diff Rule Out 04/14/2021 04/14/2021 documented as of this encounter Care Teams Personnel Research Psychologist Relationship Specialty Start Date End Date Le Bell APRN - SURVEY PROJECT MANAGER [address] [place] [phone] PCP - General Certified Nurse Practitioner 08/04/24 documented as of this encounter
--- OUTSIDE RECORDS SUMMARY | 2024-12-25 14:31 | XMS_ITS | Clinical Summary ---
Author Organization [facility] Address [address] [place] [address] Care Team Providers Care Electric Power Line Repairer Name Role Phone Unavailable Primary Care Provider [...]
--- OUTSIDE RECORDS SUMMARY | 2024-12-25 14:31 | XMS_ITS | Encounter Summary ---
Author Organization [facility] Address [address] [place] [address] Care Team Providers Care Digitizer Name Role Phone Le Bell APRN, NP Primary Care Provider Reason for Referral * Imaging (Routine) - Closed Specialty Diagnoses / Procedures Referred By James martinez Referred To Contact Radiology Diagnoses Chest pain, unspecified type Procedures NM MYOCARDIAL SPECT REST EXERCISE OR RX Le Bell APRN - NP [address] [place] [address] Phone: tel: fax: Referral ID Status Reason Start Date Expiration Date Visits Re quested Visits Authorized [id number] Closed 04/22/2021 04/22/2022 1 1 Encounter Details Date Type Department Care Team (Latest Contact Info) Description 04/22/2021 Transcribe Orders [facility] [address] [place] [address] Le Bell APRN - NP [address] [place] [address] Chest pain, unspecified type (Primary Dx) Social History Tobacco Use Types Packs/Day Years [...] Exposure Response Date Recorded In the last month, have you been in contact with someone who was confirmed or suspected to have Coronavirus / COVID-19? No / Unsure 04/14/2021 12:46 AM EDT documented as of this encounter Plan of Treatment Upcoming Encounters Date Type Department Care Team (Late st Contact Info) Description 01/27/2025 9:20 AM EDT Office Visit [facility] Neurology [address] [place] [address] Waylon Moy MD [address] [facility] [address] [place] [address] Postherpetic polyneuropathy Scheduled Orders Name Type Priority Associated Diagnoses Orde r Schedule NM MYOCARDIAL SPECT REST EXERCISE OR RX Imaging Routine Chest pain, unspecified type Expected: 04/22/2021, Expires: 04/22/2022 documented as of this encounter Visit Diagnoses Diagnosis Chest pain, unspecified type- Primary documented in this encounter Additional Health Concerns Infection Onset Date Last Indicated Resolved Time C-diff Rule Out 04/14/2021 04/14/2021 documented as of this encounter Care Teams Digitizer Relationship Specialty Start Date End Date Le Bell, HOSTESS CASHIER - MILIEU MANAGER [address] [place] [phone] PCP - General Certified Nurse Practitioner 08/04/24 documented as of this encounter
--- OUTSIDE RECORDS SUMMARY | 2024-12-25 14:31 | XMS_ITS | Encounter Summary ---
Author Organization [facility] Address [address] [place] [address] Care Team Providers Care Loading Machine Tool Setter Name Role Phone Le Bell Preet BAIN - SALES OFFICE COORDINATOR Primary Care Provider Encounter Details Date Type Department Care Team ([facility] Contact Info) Description 10/11/2012 PAT Telephone [facility] PRE ADMIT [address] [place] [address] Amy Wilson, RN Social History Tobacco Use Types Packs/Day Years Used Date Smoking Tobacco: Every Day Cigarettes 1.5 30 Smokeless Tobacco: Never Alcohol Use Standard Drinks/Week Comments Yes 0 (1 standard drink = 0.6 oz pur e alcohol) once a month Comments No Sex and Gender Information Value Date Recorded Sex Assigned at Not on file Legal Sex Female 11:44 AM EST Gender Identity Not on file Sexual Orientation Not on file documented as of this encounter Last Filed Vital Signs Vital Sign Reading Time Taken Comments Blood Pressure - - Pulse - - Temperature - - Respiratory Rate - - Oxygen Saturation - - Inhaled Oxygen Concentration - - Weight 87.5 kg (193 lb) 10/11/2012 9:12 AM EDT Height 167.6 cm (5' 6 ) 10/11/2012 9:12 AM EDT Body Mass Index 31.15 10/11/2012 9:12 AM EDT documented in this encounter Plan of Treatment Upcoming Encounters Date Type Department Care Team ([facility] Contact Info) Description 01/27/2025 9:20 AM EDT Office Visit [facility] Neurology [address] [place] [address] Waylon Moy MD [address] [facility] [facility] [address] [place] [address] Postherpetic polyneuropathy documented as of this encounter Visit Diagnoses Not on filedocumented in this encounter Additional Health Concerns Infection Onset Date Last Indicated Resolved Time C-diff Rule Out 04/14/2021 04/14/2021 documented as of this encounter Care Teams Loading Machine Tool Setter Relationship Specialty Start Date End Date Le Bell, JOLENE - SALES OFFICE COORDINATOR [address] [place] [address] PCP - General Certified Nurse Practitioner 08/04/24 documented as of this encounter
--- OUTSIDE RECORDS SUMMARY | 2024-12-25 14:31 | XMS_ITS | Encounter Summary ---
Author Organization [facility] Address [address] [place] [address] Care Team Providers Care Alumni Relations Coordinator Name Role Phone Le Bell Preet SENIOR PHYSICIAN - SCHOOL GUIDANCE COUNSELOR Primary Care Provider Encounter Details Date Type Department Care Team (Late Contact Info) Description 04/22/[address] [facility] General Surgery [address] [place] [address] Dandy Fulton, RN Social History Tobacco Use Types Packs/Day [...] Upcoming Encounters Date Type Department Care Team ([facility] Contact Info) Description 01/27/2025 9:20 AM EDT Office Visit [facility] Neurology [address] [place] [address] Waylon Moy MD [address] [place] [address] [place] [address] Postherpetic polyneuropathy documented as of this encounter Visit Diagnoses Not on filedocumented in this encounter Additional Health Concerns Infection Onset Date Last Indicated Resolved Time C-diff Rule Out 04/14/2021 04/14/2021 documented as of this encounter Care Teams Alumni Relations Coordinator Relationship Specialty Start Date End Date Le Bell, SENIOR PHYSICIAN - SCHOOL GUIDANCE COUNSELOR [address] [place] [phone] PCP - General Certified Nurse Practitioner 08/04/24 documented as of this encounter
--- OUTSIDE RECORDS SUMMARY | 2024-12-25 14:31 | XMS_ITS | Encounter Summary ---
Author Organization [facility] Address [address] [place] [address] Care Team Providers Care Enroller Name Role Phone Unavailable Primary Care Provider Unavailabl e Reason for Visit * Reason Comments Med Refill Encounter Details Date Type Department Care Team (Latest Contact Info) Description 02/25/2024 Refill [facility] Shaikh Gil MD [address] [place] [phone] Social History Tobacco Use Types Packs/Day Years [...]
--- OUTSIDE RECORDS SUMMARY | 2024-12-25 14:31 | XMS_ITS | Clinical Summary ---
Author Organization [facility] 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 Pravastatin Hives 10/13/2010 Medications insulin glargine (LANTUS SOLOSTAR) 100 UNIT/ML injection pen Inject 40 Units into the skin 2 times daily 10 pen 3 04/16/2021 Active INSULIN LISPRO SC Inject into the skin Active cyclobenzaprine (FLEXERIL) 10 MG tablet Take 1 tablet by mouth 3 times daily as needed for Muscle spasms 10 tablet 09/29/2024 Active metoprolol succinate (TOPROL XL) 25 MG extended release tablet Take 1 tablet by mouth daily 30 tablet 11 10/01/2024 Active Active Problems Problem Noted Date Diagnosed Date Obesity (BMI 30.0-34.9) 08/03/2021 Uncontrolled type 2 diabetes mellitus with hyper glycemia 08/03/2021 Assessment & Plan (10/01/2024 11:18 AM EDT): Diabetic ketoacidosis withou t coma associated with type 2 diabetes mellitus 04/13/2021 Blood type A+ Diabetes mellitus Asthma Hyperlipidemia Assessment & Plan (10/01/2024 11:18 AM EDT): Chronic, not at goal (unstable), she has marked LDL elevation and I did have a very long discussion with her however she refuses mildly statin but also PCSK9 inhibitors, medication adherence emphasized, and lifestyle modifications recommended Resolved Problems Problem Noted Date Diagnosed Date Resolved Date Condyloma acuminatum 10/17/2012 019 Abnormal EKG 08/14/2012 10/21/2018 Nicotine addiction 06/20/2012 9 Allergic rhinitis 10/21/2018 Pre-op testing 02/27/2017 Encounters Date Type Department Care Team Description 12/06/2024 12:41 PM EDT - 12/08/2024 11:59 PM EDT Hospital Encounter [facility] MRI [address] [facility] [place] [address] Lumbar back pain; Spondylolisthesis of thoracic region Discharge Disposition: Home or Self Care 11/27/2024 Transcribe Orders [facility] [address] [id number] Juan Gerber PA Lumbar back pain (Primary Dx); Spondylolisthesis of thoracic region 10/22/2024 Abstract [facility] [employer] [facility] [address] [facility] [place] [address] Vidhya León 10/22/2024 Telephone [facility] [employer] [facility] [address] [place] [address] Raheem Rodriges DO 10/17/2024 9:34 AM EDT - 10/19/2024 11:59 PM EDT Hospital Encounter [facility] Non-Invasive Cardiology [address] [place] [address] Raheem Rodriges DO Tachycardia; Abnormal EKG; Heart murmur Discharge Disposition: Home or Self Care 10/14/2024 10:07 AM EDT - 10/14/2024 11:59 PM EDT Hospital Encounter [facility] [place] [facility] Physical Therapy [address] [place] [address] Fabiana Reynolds, PT Discharge Disposition: Home or Self Care 10/11/2024 10:24 AM EDT - 10/11/2024 11:59 PM EDT Hospital Encounter [facility] [place] [facility] Physical Therapy [address] [place] [address] Darren Mathew PTA Discharge Disposition: Home or Self Care 10/08/2024 9:45 AM EDT - 10/08/2024 11:59 PM EDT Hospital Encounter [facility] [place] [facility] Physical Therapy [address] [place] [address] Fabiana Reynolds, PT Discharge Disposition: Home or Self Care 10/01/2024 10:30 AM EDT Office Visit [facility] [employer] [facility] [address] [place] [address] Raheem Rodriges DO Tachycardia (Primary Dx); Mixed hyperlipidemia; Nonrheumatic aortic valve stenosis; Bicuspid aortic valve; Uncontrolled type 2 diabetes mellitus with hyperglycemia (HCC); Abnormal EKG; Heart murmur; Chronic pain syndrome 09/29/2024 1:34 PM EDT - 09/29/2024 3:07 PM EDT Emergency [facility] Emergency Department [address] [place] [address] Kadeem Mendoza MD Strain of lumbar region, initial encounter (Primary Dx) Discharge Disposition: Home or Self Care 09/29/2024 Travel from Last 3 Months Immunizations Immunization Administration Dates Next Due MMR, PRIORIX, M-M-R II, (age 12m+), SC, 0.5mL ,02/09/2001 Family History Medical History Relation Name Comments Asthma Father Cancer Father Diabetes Father Lung Cancer Father Diabetes Mother High Blood Pressure Sister Relation Name Status Comments Father Mother Sister Social History Tobacco Use Types Packs/Day Years Used Date Smoking Tobacco: Former Cigarettes 1.5 30 0 07/25/1987 - 07/25/2017 Smokeless Tobacco: Never Tobacco Cessation:Counseling Given: Not Answered Alcohol Use Standard Drinks/Week Comments No 0 [...] Sign Reading Time Taken Comments Blood Pressure 102/71 10/01/2024 10:34 AM EDT Pulse 128 10/01/2024 10:34 AM EDT Temperature 36.6 C (97.8 F) 09/09/2024 4:20 AM EST Respiratory Rate 18 09/29/2024 1:45 PM EDT Oxygen Saturation 98% 10/01/2024 10:34 AM EDT Inhaled Oxygen Concentration - - Weight 78.5 kg (173 lb) 10/01/2024 10:34 AM EDT Height 170.2 cm (5' 7 ) 09/29/2024 1:44 PM EDT Body Mass Index 27.1 09/29/2024 1:44 PM EDT Plan of Treatment Upcoming Encounters Date Type Department Care Team (Late st Contact Info) Description 01/27/2025 9:20 AM EDT Office Visit [facility] Neurology [address] [place] [address] Waylon Moy MD [address] [place] [address] [address] [place] [id number] Postherpetic polyneuropathy Health Maintenance Due Date Last Done Comments Depression Screen 1980 DTaP/Tdap/Td vaccine (1 - Tdap) 01/04/1987 Hepatitis B vaccine (1 of 3 - 19+ 3-dose series) 01/04/1987 Pneumococcal 50+ years Vaccine (1 of 2 - PCV) 01/04/1987 Colonoscopy 01/04/2013 Colorectal Cancer Screen 01/04/2013 FIT/FOBT: Average risk 01/04/2013 Fecal-DNA (Cologuard): Average risk 01/04/2013 Sigmoidoscopy/CT colonography 01/04/2013 Diabetic retinal exam 10/15/2014 10/15/2013 , 06/10/2013 (Declined), 03/21/2011 Breast cancer screen 10/22/2016 10/22/2014 (Declined), 06/10/2013 (Declined), 06/19/2012 (Declined), Additional history exists Shingles vaccine (1 of 2) 01/04/2018 Diabetic foot exam 02/28/2018 02/28/2017, 0 07/21/2015, 02/04/2014, Additional history exists HPV (without or with Pap) 02/24/2021 02/25/2016 Cervical cancer screen 10/23/2021 Pap smear 10/23/2021 10/23/2018, 03/2018, 02/25/2016, Additional history exists A1C test (Diabetic or Prediabetic) 07/04/2023 07/04/2022, 03/29/2022, 10/08/2021, Additional history exists Diabetic Alb to Cr ratio (uACR) test 07/04/2023 07/04/2022, 03/29/2022, 10/08/2021, Additional history exists Lipids 07/04/2023 07/04/2022, 03/17, 03/29/2022, Additional history exists COVID-19 Vaccine ( - 2023- season) 2024 Flu vaccine (Season Ended) 2025 Lung Cancer Screening &/or Counseling 09/02/2025 09/02/2024 GFR test (Diabetes, CKD 3-4, OR last GFR 15-59) 09/09/2025 09/09/2024, 09/04/2024, 09/02/2024, Additional history exists HIV screen Completed 06/23/2012 Hepatitis C screen Completed 06/23/2012 Hepatitis A vaccine Aged Out No longe r eligible based on patient's age to complete this topic Hib vaccine Aged Out No longer eligi ble based on patient's age to complete this topic Meningococcal (ACWY) vaccine Aged Out No longer eligible based on patient's age to complete this topic Meningococcal B vaccine Aged Out No l onger eligible based on patient's age to complete this topic Polio vaccine Aged Out No longer elig ible based on patient's age to complete this topic Procedures Procedure Name Priority Date/Time Associated Diagnosis Comments MRI LUMBAR SPINE WO CONTRAST Routine 12/06/2024 1:29 PM EDT Lumbar back pain Spondylolisthesis of thoracic region ECHO (TTE) COMPLETE Routine 10/17/2024 1 0:36 AM EDT Tachycardia Abnormal EKG Heart murmur BASIC METABOLIC PANEL STAT 09/09/2024 4:[address] CHEST WO CONTRAST STAT 09/02/2024 5:54 PM EST LIPID PANEL Routine 07/04/2022 9:04 AM EST MICROALBUMIN, UR Routine 07/04/2022 9:04 AM EST HEMOGLOBIN A1C Routine 07/04/2022 9:04 AM EST GLOST TILE SHADER CYTOLOGY Routine 10/23/2018 10:00 AM EDT HUMAN PAPILLOMAVIRUS (HPV) DNA PROBE THIN PREP HIGH RISK Routine 02/25/2016 8:37 AM EDT HIV SCREEN Routine 06/23/2012 9:33 AM EST HEPATITIS C ANTIBODY Routine 06/23/2012 9:33 AM EST from Last 3 Months or Most Recently Relevant to Health Maintenance Results * MRI LUMBAR SPINE WO CONTRAST (12/06/2024 1:29 PM EDT) Anatomical Region Laterality Modality T-spine, L-spine, Pelvis Magneti c Resonance 12/06/2024 1:29 PM EDT Impressions 12/09/2024 2:34 PM EDT 1. There is grade 1 anterolisthesis of L4 on L5 related to moderate severe facet arthropathy. 2. Discogenic change and facet arthropathy as described above. No central or foraminal stenosis is evident. 3. No acute or healing fracture. Narrative 12/09/2024 2:34 PM EDT EXAM: MRI LUMBAR SPINE WO CONTRAST COMPARISON: Abdomen pelvis CT from 09/02/2024. HISTORY: Low back pain which began after getting shingles in January 2024. TECHNIQUE: Multiplanar and multisequence imaging of the lumbar spine was performed without contrast FINDINGS: Anterolisthesis of L4 on L5 measures 2 mm and relates to moderate to severe facet arthropathy. No acute fracture is identified. There is mild disc height loss and disc desiccation at L4-L5 and L5-S1. No acute abnormality is identified involving visualized intrapelvic or intra-abdominal structures. The visualized aorta is normal in diameter. The upper sacrum is intact. There are no pars defects. The conus terminates at the T12-L1 level L5-S1: There is a mild disc bulge and mild to moderate facet arthropathy. There is no central or foraminal stenosis. L4-L5: There is grade 1 anterolisthesis measuring 2 mm with moderate to severe facet arthropathy and a diffuse disc bulge. There is no central or foraminal stenosis L3-L4: There is mild facet arthropathy and a minimal disc bulge without central or foraminal stenosis. L2-L3: There is no focal disc herniation. There is no central or foraminal stenosis L1-L2: There is no focal disc herniation. There is no central or foraminal stenosis. Procedure Note Juan Denney MD - 12/09/2024 EXAM: MRI LUMBAR SPINE WO CONTRAST COMPARISON: Abdomen pelvis CT from 09/02/2024. HISTORY: Low back pain which began after getting shingles in January 2024. TECHNIQUE: Multiplanar and multisequence imaging of the lumbar spine was performed without contrast FINDINGS: Anterolisthesis of L4 on L5 measures 2 mm and relates tomoderate to severe facet arthropathy. No acute fracture is identified. There is milddisc height loss and disc desiccation at L4-L5 and L5-S1. No acute abnormality is identified involving visualized intrapelvic or intra-abdominal structures. The visualized aorta is normal in diameter.The upper sacrum is intact. There are no pars defects. The conus terminates atthe T12-L1 level L5-S1: There is a mild disc bulge and mild to moderate facet arthropathy.There is no central or foraminal stenosis. L4-L5: There is grade 1 anterolisthesis measuring 2 mm with moderate tosevere facet arthropathy and a diffuse disc bulge. There is no central orforaminal stenosis L3-L4: There is mild facet arthropathy and a minimal disc bulge withoutcentral or foraminal stenosis. L2-L3: There is no focal disc herniation. There is no central or foraminal stenosis L1-L2: There is no focal disc herniation. There is no central or foraminal stenosis. IMPRESSION: 1. There is grade 1 anterolisthesis of L4 on L5 related to moderate severe facet arthropathy. 2. Discogenic change and facet arthropathy as described above. No centralor foraminal stenosis is evident. 3. No acute or healing fracture. Juan MORELOS IM MRI ORDERABLES Final Result * (ABNORMAL) ECHO (TTE) COMPLETE (10/17/2024 10:36 AM EDT) IVSd 1.3(A) 0.6 - 0.9 cm [facility] CV CPACS LVIDd 2.9(A) 3.9 - 5.3 cm [facility] CV [facility]ACS LVIDs 2.2 cm [facility] LVOT Diameter 1.8 cm [facility]ACS LVPWd 1.5(A) 0.6 - 0.9 cm [facility] LV Ejection Fraction A2C 43 % [facility]ACS LV Ejection Fraction A4C 49 % [facility]ACS EF BP 46(A) 55 - 100 % [facility]ACS LV EDV A2C 44 mL [facility] CV CPACS LV EDV A4C 44 mL [facility] CV CPACS LV EDV BP 45(A) 56 - 104 mL [facility] CV [facility]ACS LV ESV A2C 26 mL [facility] CV CPACS LV ESV A4C 23 mL [facility] CV CPACS LV ESV BP 24 19 - 49 mL [facility] CV [facility]ACS LVOT Peak Gradient 4 mmHg [facility] CV [facility]ACS LVOT Mean Gradient 2 mmHg [facility] LVOT SV 45.0 ml [facility] LVOT Peak Velocity 1.0 m/s [facility]ACS LVOT VTI 17.7 cm [facility] CV CPACS RV Longitudinal Dimension 7.1 cm [facility] CV CPACS RV Mid Dimension 2.6 cm BS CV CPACS RV Basal Dimension 2.9 cm BS CV CPACS LA Diameter 3.9 cm BS CV CPACS LA Volume A/L 34 mL BS CV CPACS LA Volume A-L A4C 41 22 - 52 mL BS CV CPA CS LA Volume A-L A4C 28 22 - 52 mL BS CV CPA CS LA Volume MOD A2C 40 22 - 52 mL BS CV CPA CS LA Volume MOD A4C 27 22 - 52 mL BS CV CPA CS LA Volume BP 33 22 - 52 mL BS CV CPACS RA Volume 20 ml BS CV CPACS AV Area by Peak Velocity 1.8 cm2 BS CV CPACS AV Area by VTI 2.1 cm2 BS CV CPACS AV Peak Gradient 7 mmHg BS CV CPACS AV Mean Gradient 4 mmHg BS CV CPACS AV Peak Velocity 1.4 m/s BS CV CPACS AV Mean Velocity 1.0 m/s BS CV CPACS AV VTI 21.9 cm BS CV CPACS MV Area by VTI 3.5 cm2 BS CV CPACS MV Peak Gradient 5 mmHg BS CV CPACS MV Mean Gradient 2 mmHg BS CV CPACS MV Max Velocity 1.1 m/s BS CV CPACS MV Mean Velocity 0.7 m/s BS CV CPACS MV VTI 12.8 cm BS CV CPACS Pulmonary Artery EDP 7 mmHg BS CV CPACS VT Max Velocity 1.3 m/s BS CV CPACS PV Peak Gradient 4 mmHg BS CV CPACS PV Max Velocity 1.0 m/s BS CV CPACS TAPSE 1.7 >=1.7 cm BS CV CPACS Ascending Aorta 3.0 cm BS CV CPACS Aortic Root 2.6 cm BS CV CPACS Fractional Shortening 2D 24 28 - 44 % BS CV CPACS LV RWT Ratio 1.03 BS CV CPACS LV Mass 2D 134.4 67 - 162 g BS CV CPACS LVOT Area 2.5 cm2 BS CV CPACS LA/AO Root Ratio 1.50 BS CV CPACS AV Velocity Ratio 0.71 BS CV CPACS LVOT:AV VTI Index 0.81 BS CV CPACS MV:LVOT VTI Index 0.72 BS CV CPACS Est. RA Pressure 3 mmHg BS CV CPACS EF Physician 55 % BS CV CPACS Anatomical Region Laterality Modality Echocardiography Narrative 10/20/2024 7:58 AM EDT Left Ventricle: EF by visual approximation is 55%. Moderately increased wall thickness, with asymmetric septal hypertrophy with no outflow gradient. Right Ventricle: Right ventricle size is normal. RV EDV is normal. Aortic Valve: Trileaflet valve. Mildly thickened cusps. Mildly calcified cusps. No significant aortic stenosis measured. Mitral Valve: Valve structure is normal. No leaflet thickening. Trace regurgitation. Tricuspid Valve: Valve structure is normal. Trace regurgitation. Pulmonic Valve: Valve structure is normal. Left Atrium: Left atrium size is normal. Left atrial volume index is normal (16-34 mL/m2) mL/m2. Right Atrium: Right atrium size is normal. The right atrial volume is normal. Image quality is good. Technically difficult Doppler study and technically difficult study due to patient's heart rhythm. Normal LV function, EF 55% with asymmetric septal hypertrophy and no outflow gradient. Mildly calcified aortic valve with no significant stenosis. Left Ventricle EF by visual approximation is 55%. Moderately increased wall thickness, with asymmetric septal hypertrophy with no outflow gradient. Right Ventricle Right ventricle size is normal. RV EDV is normal. Left Atrium Left atrium size is normal. Left atrial volume index is normal (16-34 mL/m2) mL/m2. Right Atrium Right atrium size is normal. The right atrial volume is normal. IVC/SVC IVC diameter is less than or equal to 21 mm and decreases greater than 50% during inspiration; therefore the estimated right atrial pressure is normal (~3 mmHg). Mitral Valve Valve structure is normal. No leaflet thickening. Trace regurgitation. Tricuspid Valve Valve structure is normal. Trace regurgitation. Aortic Valve Trileaflet valve. Mildly thickened cusps. Mildly calcified cusps. No aortic stenosis. Pulmonic Valve Valve structure is normal. Ascending Aorta Normal sized aorta. Pericardium No pericardial effusion. Septum No interatrial shunt visualized with color Doppler. Study Details Image quality: good. The underlying ECG rhythm was sinus tachycardia. Technically difficult Doppler study and technically difficult study due to patient's heart rhythm. No contrast was given. Raheem Rodriges DO CV ECHO ORDERABLES Final R esult * (ABNORMAL) Basic Metabolic Panel (09/09/2024 4:55 AM EST) Sodium 134(L) 135 - 144 mmol/L 09/09/2024 4:55 AM EST [facility] Potassium 4.2 3.7 - 5.3 mmol/L 09/09/2024 4:55 AM EST [facility] Chloride 95(L) 98 - 107 mmol/L 09/09/2024 4:55 AM EST [facility] CO2 26 20 - 31 mmol/L 09/09/2024 4:55 AM EST [facility] Anion Gap 13 9 - 17 mmol/L 09/09/2024 4:55 AM EST [facility] Glucose 215(H) 70 - 99 mg/dL 09/09/2024 4:55 AM EST [facility] BUN 11 6 - 20 mg/dL 09/09/2024 4:55 AM EST [facility] Creatinine 0.5 0.5 - 0.9 mg/dL 09/09/2024 4:55 AM EST [facility] Est, Glom Filt Rate >90 >60 mL/min/1.7 3m2 09/09/2024 4:55 AM EST [facility] Comment: These results are not intended for use [...] following therapy that affects renal tubular secretion. Calcium 9.8 8.6 - 10.4 mg/dL 09/09/2024 4:55 AM EST [facility] Blood BLOOD SPECIMEN / Unknown 09/09/2024 4:55 AM EST 09/09/2024 5:08 AM EST us Mallory Aleman MD CHEMISTRY ORDERABLES Final R esult [facility] [address] [place], [place] [address] [phone] * CT CHEST WO CONTRAST (09/02/2024 5:54 PM EST) Anatomical Region Laterality Modality Chest Computed Tomogra phy 09/02/2024 7:14 PM EST Impressions 09/03/2024 9:35 PM EST 1. No acute cardiopulmonary process. 2. Mild calcification of the aortic valve implicating aortic stenosis. 3. Coronary artery calcification. 4. Mild punctate left nephrolithiasis. Narrative 09/03/2024 9:35 PM EST EXAMINATION: CT OF THE CHEST WITHOUT CONTRAST 09/02/2024 5:54 pm TECHNIQUE: CT of the chest was performed without the administration of intravenous contrast. Multiplanar reformatted images are provided for review. Automated exposure control, iterative reconstruction, and/or weight based adjustment of the mA/kV was utilized to reduce the radiation dose to as low as reasonably achievable. COMPARISON: None. HISTORY: ORDERING SYSTEM PROVIDED HISTORY: sepsis, pe TECHNOLOGIST PROVIDED HISTORY: sepsis, pe Decision Support Exception - unselect if not a suspected or confirmed emergency medical condition->Emergency Medical Condition (MA) FINDINGS: Mediastinum: Cardiac silhouette is not enlarged. Trace anterior pericardial effusion. Ascending thoracic aorta is nonaneurysmal. There is mild calcification of the aortic valve implicating aortic stenosis. Coronary artery calcification. Mitral annular calcification. No evidence of mediastinal lymphadenopathy. Lungs/pleura: No active lung parenchyma or pleural disease. No evidence of pleural effusion or pneumothorax. No discrete nodules or masses. Upper Abdomen: Mild punctate left nephrolithiasis. Soft Tissues/Bones: Thoracic spine appears unremarkable. No acute soft tissue abnormality. No axillary lymphadenopathy. Bilateral breasts appear unremarkable. Procedure Note Pia Ortiz MD - 09/03/2024 EXAMINATION: CT OF THE CHEST WITHOUT CONTRAST 09/02/2024 5:54 pm TECHNIQUE: CT of the chest was performed without the administration of intravenous contrast. Multiplanar reformatted images are provided for review.Automated exposure control, iterative reconstruction, and/or weight based adjustmentof the mA/kV was utilized to reduce the radiation dose to as low asreasonably achievable. COMPARISON: None. HISTORY: ORDERING SYSTEM PROVIDED HISTORY: sepsis, pe TECHNOLOGIST PROVIDED HISTORY: sepsis, pe Decision Support Exception - unselect if not a suspected or confirmed emergency medical condition->Emergency Medical Condition (MA) FINDINGS: Mediastinum: Cardiac silhouette is not enlarged. Trace anteriorpericardial effusion. Ascending thoracic aorta is nonaneurysmal. There is mild calcification of the aortic valve implicating aortic stenosis. Coronary artery calcification. Mitral annular calcification. No evidence of mediastinal lymphadenopathy. Lungs/pleura: No active lung parenchyma or pleural disease. No evidenceof pleural effusion or pneumothorax. No discrete nodules or masses. Upper Abdomen: Mild punctate left nephrolithiasis. Soft Tissues/Bones: Thoracic spine appears unremarkable. No acute soft tissue abnormality. No axillary lymphadenopathy. Bilateral breastsappear unremarkable. IMPRESSION: 1. No acute cardiopulmonary process. 2. Mild calcification of the aortic valve implicating aortic stenosis. 3. Coronary artery calcification. 4. Mild punctate left nephrolithiasis. Chaim Del Toro MD IMG CT ORDERABLES Final Res ult * (ABNORMAL) Microalbumin, Ur (07/04/2022 9:04 AM EST) Albumin Urine 17 <21 mg/L 07/04/2022 9:04 AM EST [facility] Creatinine, Ur 61.0 28.0 - 217.0 mg/dL 07/04/2022 9:04 AM EST [employer] Microalb/College Administrator. Ratio 28(H) <25 mcg/mg creat 07/04/2022 9:04 AM EST [employer] 07/04/2022 9:04 AM EST 07/04/2022 9:05 AM EST Omar Shea MD URINE ORDERABLES Final Result [facility] [address] [place] [address], [facility] [phone] [facility] [address] [id number], [facility] [phone] * (ABNORMAL) Hemoglobin A1C (07/04/2022 9:04 AM EST) Hemoglobin A1C 13.6(H) 4.0 - 6.0 % 07/04/2022 9:04 AM EST [employer] Estimated Avg Glucose 344 mg/dL 07/04/2022 9:04 AM EST [employer] Comment: The ADA and AACC recommend providing the estimated average glucose result to permit better patient understanding of their HBA1c result. 07/04/2022 9:04 AM EST 07/04/2022 9:05 AM EST Omar Shea MD CHEMISTRY ORDERABLES Final Res ult Performing Organization Address City/[facility]/ZIP Co de Phone Number [facility] [address] [place] [address], [facility] [phone] [employer] [facility] [id number] [phone] * (ABNORMAL) Lipid Panel (07/04/2022 9:04 AM EST) Cholesterol 338(H) <200 mg/dL 07/04/2022 9:04 AM EST [employer] Comment: Cholesterol Guidelines: <200 Desirable 200-240 Borderline >240 Undesirable HDL 37(L) >40 mg/dL 07/04/2022 9:04 AM EST [employer] Comment: HDL Guidelines: <40 Undesirable 40-59 Borderline >59 Desirable LDL Cholesterol 235(H) 0 - 130 mg/dL 07/04/2022 9:04 AM [facility] Comment: LDL Guidelines: <100 Desirable 100-129 Near to/above Desirable 130-159 Borderline >159 Undesirable Direct (measured) LDL and calculated LDL are not interchangeable tests. Chol/HDL Ratio 9.1(H) <5 07/04/2022 9:04 AM EST [employer] Comment: Triglycerides 330(H) <150 mg/dL 07/04/2022 9:04 AM [facility] Comment: Triglyceride Guidelines: <150 Desirable 150-199 Borderline 200-499 High >499 Very high Based on AHA Guidelines for fasting triglyceride, April 2012. 07/04/2022 9:04 AM EST 07/04/2022 9:05 AM EST Omar Shea MD CHEMISTRY ORDERABLES Final Res ult Performing Organization Address City/[facility]/ZIP Co de Phone Number [facility] [address] [place] [address], [facility] [phone] [phone] * GLOST TILE SHADER Cytology (10/23/2018 10:00 AM EDT) Cytology Report [id number] [facility] ANATOMIC PATHOLOGY [address] [place] [phone] GYNECOLOGIC CYTOLOGY REPORT Patient Name: CASANDRA YEUNG MR#: [id number] Specimen #[id number] Source: 1: Cervical material, (ThinPrep vial, Imaging-assisted review) Clinical History LEEP: 2016 Z12.4 Encounter for screening for malignant neoplasm of cervix High Risk HPV DNA testing is requested if the diagnosis is ASC-US LMP: ablation INTERPRETATION Cervical material, (ThinPrep vial, Imaging-assisted review): Specimen Adequacy: Satisfactory for evaluation. -Endocervical/tra nsformation zone component is absent. Descriptive Diagnosis: Negative for intraepithelial lesion or malignancy. Dock Operations Supervisor: JENI Reynolds JD(ASCP) Electronically Signed Out trever/11/06/2018 [facility] 10/23/2018 10:0 0 AM EDT 10/25/2018 10:00 AM EDT us Grady Barrera MD PATHOLOGY/CYTOLOGY ORDERABLES Final Result [facility] [address] [place] [address], [facility] [phone] [phone] * (ABNORMAL) Human papillomavirus (HPV) DNA probe thin prep high risk (02/25/2016 8:37 AM EDT) HPV SOURCE CERVICAL MATERIAL 03/16/2016 8:37 AM EDT [facility] HPV Sample .THIN PREP 03/16/2016 8:37 AM EDT [facility] HPV, Genotype 16 Not Detected NOTDET 2015 2:09 PM EDT [facility] HPV, Genotype 18 Not Detected NOTDET 2015 2:09 PM EDT [facility] HPV, High Risk Other DETECTED(A) NOTDET 03/16/2016 2:09 PM EDT [facility] HPV, Interpretation 03/16/2016 2:09 PM EDT [facility] Comment: This test amplifies and detects DNA of 14 high-risk HPV types associated with cervical cancer and its precursor lesions (HPV types 16,18, 31, 33, 35, 39, 45, 51, 52, 56, 58, 59, 66, and 68). Sensitivity may be affected by specimen collection methods, stage of infection, and the presence of interfering substances. Results should be interpreted in conjunction with other available laboratory and clinical data. A negative high-risk HPV result does not exclude the possibility of future cytologic HSIL or underlying CIN2-3 or cancer. This test is intended for medical purposes only and is not valid for the evaluation of suspected sexual abuse or for other forensic purposes. Performed at [address] [id number] ([phone] 02/25/2016 8:37 AM EDT 03/16/2016 8:37 AM EDT us Grady Barrera MD HEMATOLOGY ORDERABLES Final R esult [facility] [address] [place] [address], [facility] [phone] [facility] * Hepatitis C antibody (06/23/2012 9:33 AM EST) Hepatitis C Ab NONREACTIVE NR [facility] Comment: The hepatitis C procedure used in our laboratory is a Chemiluminescent test specific for three recombinant HCV antigens. A negative anti-HCV result indicates that the antibodies to hepatitis C virus are not present at this time. Individuals with reactive anti-HCV should be considered infected and infectious until proven otherwise. Confirmation of all equivocal or reactive results is recommended by ordering HCV RNA by PCR. Performed at [address] [id number] 06/23/2012 9:33 AM EST 06/23/2012 9:34 AM EST Mukund Olivares MD IMMUNOLOGY ORDERABLES Final Resu lt Performing Organization Address City/[facility]/ZIP Co de Phone Number [facility] [address] [place] [address], [facility] [phone] [facility] * HIV-1 and HIV-2 antibodies (06/23/2012 9:33 AM EST) [facility] HIV 1/2 Antibody NONREACTIVE NR [facility] Comment: Interpretation: The presence of antibody to HIV and its association with the potential infectivity, transmission or diagnosis of AIDS has not been established. Furthermore, a 'Non-Reactive' test result does not exclude the possibility of exposure to or infection with HIV. If the above test result is 'Reactive', the Laboratory will order the confirmatory test. Performed at [facility] [address] [address] 06/23/2012 9:33 AM EST 06/23/2012 9:34 AM EST Mukund Olivares MD IMMUNOLOGY ORDERABLES Final Resu lt Performing Organization Address [facility] Co de Phone Number [facility] [address] [place] [address], [facility] [phone] [facility] from Last 3 Months or Most Recently Relevant to Health Maintenance Additional Health Concerns Infection Onset Date Last Indicated C-diff Rule Out 04/14/2021 04/14/2021 Insurance [employer] CAR[employer] Advance Directives * Full Code (Latest Code Status on File) Date Activated Date Inactivated Comments 04/13/2021 10:12 PM 04/16/2021 12:23 PM * Full Code Date Activated Date Inactivated Comments 04/21/2016 9:39 AM 04/21/2016 12:42 PM * Full Code Date Activated Date Inactivated Comments 04/21/2016 7:07 AM 04/21/2016 9:39 AM Healthcare Agents on File Name Relationship Healthcare Agent Relationshi p Communication Call Dont Child Primary Decision Maker Care Teams Machine Shop Worker Relationship Specialty Start Date End Date Le Bell APRN - GOLF PLAYER ASSISTANT [address] [place] [phone] PCP - General Certified Nurse Practitioner 08/04/24
--- OUTSIDE RECORDS SUMMARY | 2024-12-25 14:31 | XMS_ITS | Encounter Summary ---
Author Organization [facility] Address [address] [place] [address] Care Team Providers Care Equal Opportunity Director Name Role Phone Arabella Le Preet CATERING TRUCK OPERATOR - SITE HEAD Primary Care Provider Reason for Visit * Reason Comments Other Encounter Details Date Type Department Care Team (Late Contact Info) Description 10/26/2013 Refill [facility] Primary Care of [address] [address] Kerri Lovelace, PALelaC [address] [facility] [address] [place] [address] Other Social History Tobacco Use Types Packs/Day Years [...] Description 01/27/2025 9:20 AM EDT Office Visit [facility] Neurology [address] [place] [address] Waylon Moy MD [address] [place] [address] Dr [address]legria [address] [place] [address] Postherpetic polyneuropathy documented as of this encounter Visit Diagnoses Not on filedocumented in this encounter Additional Health Concerns Infection Onset Date Last Indicated Resolved Time C-diff Rule Out 04/14/2021 04/14/2021 documented as of this encounter Care Teams Equal Opportunity Director Relationship Specialty Start Date End Date Le Bell APRN - SITE HEAD [address] [place] [phone] PCP - General Certified Nurse Practitioner 08/04/24 documented as of this encounter
--- OUTSIDE RECORDS SUMMARY | 2024-12-25 14:31 | XMS_ITS | Encounter Summary ---
Author Organization [facility] Address [address] [place] [address] Care Team Providers Care Plastic Surgery Coordinator Name Role Phone Arabella Le L ULTRASONIC SEAMING 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 - VARNISH REMOVER Primary Care Provider Reason for Visit * Reason Comments Medication Refill Encounter Details Date Type Department Care Team (Late Contact Info) Description 09/14/2016 Refill [facility] Primary Care of [place] [address] [place] [address] Ade Lloyd APRN - JANITORIAL ACCOUNT MANAGER [address] [place] [address] Medication Refill Social History Tobacco Use Types [...] 9:20 AM EDT Office Visit [facility] Neurology [address] [place] [address] Waylon Moy MD [address] [place] [address] Dr [address]leg[address] [place] [address] Postherpetic polyneuropathy documented as of this encounter Visit Diagnoses Not on filedocumented in this encounter Additional Health Concerns Infection Onset Date Last Indicated Resolved Time C-diff Rule Out 04/14/2021 04/14/2021 documented as of this encounter Care Teams Plastic Surgery Coordinator Relationship Specialty Start Date End Date Le Bell APRN - VARNISH REMOVER [address] [place] [phone] PCP - General Certified Nurse Practitioner 08/04/24 documented as of this encounter
--- OUTSIDE RECORDS SUMMARY | 2024-12-25 14:31 | XMS_ITS | Encounter Summary ---
Author Organization [facility] Address [address] [place] [address] Care Team Providers Care Computer Education Teacher Name Role Phone Arabella Le L DIRECTOR WOMEN - DOG TRAINER Primary Care Provider Reason for Visit * Reason Comments Medication Refill Encounter Details Date Type Department Care Team (Late Contact Info) Description 01/11/2017 Refill [facility] [place] [address] [place] [address] Ade Lloyd, DIRECTOR WOMEN - GEAR 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 GENERAL [address] [place] [phone] Medication Refill Social History Tobacco Use Types [...] Description 01/27/2025 9:20 AM EDT Office Visit [facility] Neurology [address] [place] [address] Waylon Moy MD [address] [place] [address] Dr Alegria [address] [place] [address] Postherpetic polyneuropathy documented as of this encounter Visit Diagnoses Not on filedocumented in this encounter Additional Health Concerns Infection Onset Date Last Indicated Resolved Time C-diff Rule Out 04/14/2021 04/14/2021 documented as of this encounter Care Teams Computer Education Teacher Relationship Specialty Start Date End Date Le Bell APRN - DOG TRAINER [address] [place] [phone] PCP - General Certified Nurse Practitioner 08/04/24 documented as of this encounter
--- OUTSIDE RECORDS SUMMARY | 2024-12-25 14:31 | XMS_ITS | Clinical Summary ---
Author Organization [facility] Address [address] [place] [address] Care Team Providers Care Houseman Name Role Phone Le Bell AIRCRAFT CABIN CLEANER Primary Care Provider [phone] Allergies Active Allergy Reactions Criticality Noted Date Comments Penicillins 04/21/2021 Pravastatin Hives 10/13/2010 Medications Aspirin Low Dose [address] tablet Take 81 mg by mouth daily. 1 Active Continuous Blood Gluc Law Librarian (FreeStyle Prabhakar 2 [place] Systm) DeviceIndications: Uncontrolled type 2 diabetes mellitus with hyperglycemia 1 Each by Unknown route every 4 hours. 1 Each 2 Active Glucagon (Gvoke HypoPen 2-Pack) 1 MG/0.2ML Solution Auto-injector Inject 1 mg under the skin As directed. To be used as directed for severe hypoglycemia. 0.4 mL 1 2 Active Dulaglutide (Trulicity) 1.5 MG/0.5ML Solution Pen-injector injection Inject 0.5 mL under the skin once a week. 2 mL 3 2 Active metFORMIN-XR 500 MG Tab SR 24 HRIndications:Unco ntrolled type 2 diabetes mellitus with hyperglycemia Take 2 tablets by mouth 2 times daily. 120 tablet 3 2 Active glipiZIDE 10 MG tablet regular releaseIndications :Uncontrolled type 2 diabetes mellitus with hyperglycemia Take 1 tablet by mouth 2 times daily. 60 tablet 11 2 Active pioglitazone 30 MG tabletIndications: Uncontrolled type 2 diabetes mellitus with hyperglycemia Take 1 tablet by mouth daily. 30 tablet 3 2 Active Continuous Blood Gluc Sensor (FreeStyle Prabhakar 2 Sensor Systm) MiscIndications:Un controlled type 2 diabetes mellitus with hyperglycemia 1 Each by Unknown route every 14 days. 2 Each 11 2 Active Active Problems Problem Noted Date Diagnosed Date Metabolic acidosis 06/22/2022 Assessment & Plan (06/22/2022 10:50 AM EST): Secondary to DKA Volume expand Trend labs Electrolyte imbalance 06/22/2022 Assessment & Plan (06/22/2022 10:50 AM EST): Replace potassium and phosphorus Trend labs Medical non-compliance 06/22/2022 Assessment & Plan (06/22/2022 10:50 AM EST): Importance of medical compliance discussed with patient Diabetic ketoacidosis withou t coma associated with type 2 diabetes mellitus 06/22/2022 DKA (diabetic ketoacidosis) 06/21/2022 Assessment & Plan (06/22/2022 10:50 AM EST): Resolving - Gap closing Volume expand Serial labs Mixed hyperlipidemia 08/17/2021 Assessment & Plan (06/22/2022 10:50 AM EST): Resume home medications Follow-up with PCP after discharge Obesity (BMI 30.0-34.9) 08/03/2021 Diabetes mellitus, type 2 08/03/2021 Assessment & Plan (06/22/2022 10:49 AM EST): Recent A1c 12.3 Follows with Endocrinology Resume home medications Accuchecks with SSI Family History Medical History Relation Name Comments Other - Specify Father Relation Name Status Comments Father Social History Tobacco Use Types Packs/Day Years Used Date Smoking Tobacco: Never Smokeless Tobacco: Never Tobacco Cessation:Counseling Given: Not Answered Alcohol Use Standard Drinks/Week Comments Not Currently 0 (1 standard drink = 0.6 oz pur e alcohol) Comments Unknown Sex and Gender Information Value Date Recorded Sex Assigned at Not on file Legal Sex Female 5:02 PM EST Gender Identity Not on file Sexual Orientation Not on file Last Filed Vital Signs Vital Sign Reading Time Taken Comments Blood Pressure 129/58 06/22/2022 5:40 PM EST Pulse 108 06/22/2022 5:40 PM EST Temperature 36.2 C (97.2 F) 06/22/2022 4:08 PM EST Respiratory Rate 24 06/22/2022 5:40 PM EST Oxygen Saturation 99% 06/22/2022 5:40 PM EST Inhaled Oxygen Concentration - - Weight 86.2 kg (190 lb) 06/21/2022 8:00 PM EST Height 170.2 cm (5' 7 ) 06/21/2022 8:00 PM EST Body Mass Index 29.76 06/21/2022 8:00 PM EST Plan of Treatment Health Maintenance Due Date Last Done Comments HEPATITIS C VIRUS SCREENING 1970 TETANUS 1970 HIV SCREENING DISCUSSION 01/04/1983 HEP B VACCINE (1 of 3 - 19+ 3-dose series) 01/04/1987 TDAP (ADULT) 01/04/1987 CERVICAL CANCER SCREENING DISCUSSION 01/04/1989 MAMMOGRAM SCREENING DISCUSSION 2008 COLORECTAL CANCER SCREENING DISCUSSION 01/04/2013 PNEUMOCOCCAL VACCINE SERIES (1 of 1 - PCV) 01/04/2018 ZOSTER (SHINGLES) VACCINE (1 of 2) 01/04/2018 COVID-19 VACCINE ( - season) 2024 INFLUENZA VACCINE (Season Ended) 2025 LIPID SCREENING 07/05/2027 07/05/2022 Procedures Procedure Name Priority Date/Time Associated Diagnosis Comments LIPID PANEL W CALCULATED LDL Routine 07/05/2022 from Last 3 Months or Most Recently Relevant to Health Maintenance Results * LIPID PANEL W CALCULATED LDL (07/05/2022) Blood us Historical Provider CHEMISTRY ORDERABLES Final R esult from Last 3 Months or Most Recently Relevant to Health Maintenance Advance Directives For more information, please contact: [phone] (7:30 AM - 6PM Tammy/[facility], Monday-Monday) * Full Code (Latest Code Status on File) Date Activated Date Inactivated Comments 06/21/2022 5:19 PM Care Teams Houseman Relationship Specialty Start Date End Date Le Bell CNP PCP - General Family Medicine 06/21/21
--- OUTSIDE RECORDS SUMMARY | 2024-12-25 14:31 | XMS_ITS | Encounter Summary ---
Author Organization [facility] Address [address] [place] [address] Care Team Providers Care Metal Model Maker Name Role Phone Arabella Le L FRAME RUNNER - CHILD AND ADOLESCENT THERAPIST Primary Care Provider Reason for Visit * Reason Comments Medication Refill Encounter Details Date Type Department Care Team (Late Contact Info) Description 08/17/2016 Refill [facility] of [place] [address] [place] [address] Ade Lloyd APRN - SUPERVISOR AIRCRAFT CLEANING [address] [place] [address] Medication Refill Social History Tobacco Use Types [...] Description 01/27/2025 9:20 AM EDT Office Visit [facility] Neurology [address] [place] [address] Waylon Moy MD [address] [place] [address] Dr A[address] [place] [address] Postherpetic polyneuropathy documented as of this encounter Visit Diagnoses Not on filedocumented in this encounter Additional Health Concerns Infection Onset Date Last Indicated Resolved Time C-diff Rule Out 04/14/2021 04/14/2021 documented as of this encounter Care Teams Metal Model Maker Relationship Specialty Start Date End Date Le Bell APRN - CHILD AND ADOLESCENT THERAPIST [address] [place] [phone] PCP - General Certified Nurse Practitioner 08/04/24 documented as of this encounter
--- OUTSIDE RECORDS SUMMARY | 2024-12-25 14:31 | XMS_ITS | Encounter Summary ---
Author Organization [facility] Address [address] [place] [address] Care Team Providers Care Shield Installer Name Role Phone Arabella Le L RUG REPAIRER - QUALITY CONTROLLER Primary Care Provider Reason for Visit * Reason Comments Medication Refill Encounter Details Date Type Department Care Team (Late Contact Info) Description 07/27/2016 Refill [facility] Primary Care of [place] [address] [place] [address] Ade Lloyd APRN - UNLEAVENED DOUGH MIXER [address] [place] [address] Medication Refill Social History Tobacco Use Types [...] Description 01/27/2025 9:20 AM EDT Office Visit [facility] Neurology [address] [place] [address] Waylon Moy MD [address] [place] [address] Dr [address] [place] [address] Postherpetic polyneuropathy documented as of this encounter Visit Diagnoses Diagnosis Left lateral epicondylitis Lateral epicondylitis of elbow documented in this encounter Additional Health Concerns Infection Onset Date Last Indicated Resolved Time C-diff Rule Out 04/14/2021 04/14/2021 documented as of this encounter Care Teams Shield Installer Relationship Specialty Start Date End Date Le Bell, RUG REPAIRER - QUALITY CONTROLLER [address] [place] [phone] PCP - General Certified Nurse Practitioner 08/04/24 documented as of this encounter
--- NOTE | 2024-12-25 14:32 | XR_ITS ---
[place] [address] Patient Name: ANU YEUNG MRN: [id number] date: 1970 Sex: F Assigned Patient Location: [facility] Current Patient Location: [facility] Accession/Order Number: [id number] Exam Date: 12/25/2024 15:20 Report Date: 12/25/2024 15:22 At the request of: EDWARD MITCHELL NP Procedure: XR lumbar spine 6V w bending 6 views Lumbar Spinewith bending HISTORY: Chronic lumbar pain COMPARISON: 08/03/2024 POSTSURGICAL CHANGES: None BONY ALIGNMENT: Adequate HYPERMOBILITY:No hypermobility LISTHESIS:None FRACTURE: None DEGENERATIVE CHANGES: Chronic endplate changes. Lower lumbar hypertrophic facet changes. SOFT TISSUES: Atherosclerosis BONY MINERALIZATION:Adequate XR/XR lumbar spine 6V w bending IMPRESSION: Extensive lower lumbar facet degeneration. No hypermobility Impression dictated by: Alex Titus M.D. 12/25/2024 3:22 PM Dictation Location: [place] [address] Electronically authenticated by: [id number] Y Date: 12/25/2024 15:22
== END 2024-12-25 14:26 | disposition home or self-care (01) ==
PROVIDERS: Visit Provider Nurse Practitioner
DX: M47.816 Spondylosis without myelopathy or radiculopathy, lumbar region (principal)
CPT/HCPCS: 72114

== ENCOUNTER 2025-01-13 08:42 | Day surgery (SDC) | payer OTHER, SELFPAY ==
--- OUTSIDE RECORDS SUMMARY | 2016-07-06 14:44 | XMS_ITS | Encounter Summary ---
Author Organization [facility] Address [address] [place] [address] Care Team Providers Care Finger Cobbler Name Role Phone Ade Lloyd JOLENE - RELATIONSHIP ADVISOR Primary Care Provider Reason for Referral * Imaging (Routine) - Closed Specialty Diagnoses / Procedures Referred By James martinez Referred To Contact Radiology Diagnoses Abnormal CT scan Calcification of ovary Procedures MRI Pelvis W WO Contrast MRI Abdomen Pelvis W WO Contrast Grady Barrera MD Phone: tel: fax: Referral ID Status Reason Start Date Expiration Date Visits Re quested Visits Authorized [id number] Closed 06/27/2016 06/27/2017 1 1 Encounter Details Date Type Department Care Team (Latest Contact Info) Description 07/06/2016 1:44 PM EST Hospital Encounter [facility] MRI [address] [place] [address] Grady Barrera MD 27 [facility] [address] scan; Calcification of [...] Description 01/27/2025 9:20 AM EDT Office Visit [facility] Neu[facility] [address] [place] [address] Waylon Moy MD [address] [facility] [address] [place] [address] Postherpetic polyneuropathy documented as of [...] - 20 mg/dL 07/06/2016 2:40 PM EST [facility] Creatinine 0.55 0.50 - 0.90 mg/dL [...] Kidney failure: <15 mL/min/1.73sq m Performed at [facility] [address] [place] [address] ([phone] GFR Staging NOT REPORTED [facility] 07/06/2016 2:20 PM EST 07/06/2016 2:21 PM EST us Grady Barrera MD CHEMISTRY ORDERABLES Final Re sult [facility] [address] [place] [address], [facility] [phone] [facility] documented in this encounter Visit Diagnoses [...] documented as of this encounter Care Teams Finger Cobbler Relationship Specialty Start Date End Date Ade Lloyd, BIOLOGICS SPECIALIST - RELATIONSHIP ADVISOR [address] [place] [address] PCP - General Certified Nurse Practitioner 08/01/14 02/10/20 documented as of this encounter
--- OUTSIDE RECORDS SUMMARY | 2025-01-13 08:45 | XMS_ITS | Encounter Summary ---
Author Organization [facility] [employer] Address [address] [place] [address] Care Team Providers Care Rn Float Name Role Phone Arabella Le L SIEVE MAKER - SPA ASSISTANT MANAGER Primary Care Provider Reason for Visit * Reason Comments Medication Refill Encounter Details Date Type Department Care Team (Late Contact Info) Description 01/11/2017 Refill [facility] [place] [address] [place] [address] Ade Lloyd, SIEVE MAKER - LITHOSTRIPPER [address] [place] [phone] Medication Refill Social History Tobacco Use Types [...] Description 01/27/2025 9:20 AM EDT Office Visit [facility] Neurology [address] [place] [address] Waylon Moy MD [address] [place] [address] Dr [address] [place] [address] Postherpetic polyneuropathy documented as of this encounter Visit Diagnoses Not on filedocumented in this encounter Additional Health Concerns Infection Onset Date Last Indicated Resolved Time C-diff Rule Out 04/14/2021 04/14/2021 documented as of this encounter Care Teams Rn Float Relationship Specialty Start Date End Date Le Bell APRN - SPA ASSISTANT MANAGER [address] [place] [phone] PCP - General Certified Nurse Practitioner 08/04/24 documented as of this encounter
--- OUTSIDE RECORDS SUMMARY | 2025-01-13 08:45 | XMS_ITS | Encounter Summary ---
Author Organization [facility] Address [address] [place] [address] Care Team Providers Care Family Dentist Name Role Phone Arabella Le L HEAD BOOKKEEPER - STATISTICAL TECHNICIAN Primary Care Provider Reason for Visit * Reason Comments Medication Refill Encounter Details Date Type Department Care Team (Late Contact Info) Description 09/14/2016 Refill [email or web address] Primary Care of [place] [address] [place] [address] Ade Lloyd APRN - MAJOR GIFTS MANAGER [address] [place] [address] Medication Refill Social History Tobacco Use Types [...] Description 01/27/2025 9:20 AM EDT Office Visit [facility] Neurology [address] [place] [address] Waylon Moy MD [address] [place] [address] Dr Alegria [address] [place] [address] Postherpetic polyneuropathy documented as of this encounter Visit Diagnoses Not on filedocumented in this encounter Additional Health Concerns Infection Onset Date Last Indicated Resolved Time C-diff Rule Out 04/14/2021 04/14/2021 documented as of this encounter Care Teams Family Dentist Relationship Specialty Start Date End Date Le Bell APRN - STATISTICAL TECHNICIAN [address] [place] [phone] PCP - General Certified Nurse Practitioner 08/04/24 documented as of this encounter
--- OUTSIDE RECORDS SUMMARY | 2025-01-13 08:45 | XMS_ITS | Encounter Summary ---
Author Organization [facility] [employer] Address [address] [place] [address] Care Team Providers Care Ballistics Laboratory Gunsmith Name Role Phone Arabella Le L GROUNDS/MAINTENANCE SPECIALIST - CHISEL MORTISER OPERATOR Primary Care Provider Reason for Visit * Reason Comments Medication Refill Encounter Details Date Type Department Care Team (Late Contact Info) Description 11/10/2016 Refill [facility] [place] [address] [place] [address] Ade Lloyd, GROUNDS/MAINTENANCE SPECIALIST - MOTOR GRADER OPERATOR [address] [place] [phone] Medication Refill Social History Tobacco Use Types [...] 01/27/2025 9:20 AM EDT Office Visit [facility] Neurology [address] [place] [address] Waylon Moy MD [address] [place] [address] Dr Alegria [address] [place] [address] Postherpetic polyneuropathy documented as of this encounter Visit Diagnoses Not on filedocumented in this encounter Additional Health Concerns Infection Onset Date Last Indicated Resolved Time C-diff Rule Out 04/14/2021 04/14/2021 documented as of this encounter Care Teams Ballistics Laboratory Gunsmith Relationship Specialty Start Date End Date Le Bell APRN - CHISEL MORTISER OPERATOR [address] [place] [phone] PCP - General Certified Nurse Practitioner 08/04/24 documented as of this encounter
--- OUTSIDE RECORDS SUMMARY | 2025-01-13 08:45 | XMS_ITS | Encounter Summary ---
Author Organization [facility] Address [address] [place] [address] Care Team Providers Care Quality Control Auditor Name Role Phone Arabella Le L FISH TENDER - DECORATOR STORE Primary Care Provider Reason for Visit * Reason Comments Medication Refill Encounter Details Date Type Department Care Team (Late Contact Info) Description 03/26/2017 Refill [facility] Primary Care of [place] [address] [place] [address] Ade Lloyd APRN - RESEARCH PROGRAM INTERN [address] [place] [address] Medication Refill Social History Tobacco Use Types [...] 9:20 AM EDT Office Visit [facility] Neurology [address] [place] [address] Waylon Moy MD [address] [place] [address] Dr Alegria [address] [place] [address] Postherpetic polyneuropathy documented as of this encounter Visit Diagnoses Not on filedocumented in this encounter Additional Health Concerns Infection Onset Date Last Indicated Resolved Time C-diff Rule Out 04/14/2021 04/14/2021 documented as of this encounter Care Teams Quality Control Auditor Relationship Specialty Start Date End Date Le Bell APRN - DECORATOR STORE [address] [place] [address] PCP - General Certified Nurse Practitioner 08/04/24 documented as of this encounter
--- OUTSIDE RECORDS SUMMARY | 2025-01-13 08:45 | XMS_ITS | Encounter Summary ---
Author Organization Krzysztof Leigh [facility] sarah [facility] Address [address] [place] [address] Care Team Providers Care Special Loan Officer Name Role Phone Le Bell COLLISION CENTER MANAGER - SECURITIES SALES ASSOCIATE Primary Care Provider Encounter Details Date Type Department Care Team (Late Contact Info) Description 06/21/2021 Transcribe Orders Lopez Pre Access [address] [place] [address] Le Bell, COLLISION CENTER MANAGER - SECURITIES SALES ASSOCIATE [address] [place] [address] Social History Tobacco Use Types [...] Upcoming Encounters Date Type Department Care Team ([facility] Contact Info) Description 01/27/2025 9:20 AM EDT Office Visit [facility] Neurology [address] [place] [address] Waylon Moy MD [address] [facility] [address] [place] [phone] Postherpetic polyneuropathy documented as of this encounter Visit Diagnoses Not on filedocumented in this encounter Additional Health Concerns Infection Onset Date Last Indicated Resolved Time C-diff Rule Out 04/14/2021 04/14/2021 documented as of this encounter Care Teams Special Loan Officer Relationship Specialty Start Date End Date Le Bell APRN - SECURITIES SALES ASSOCIATE [address] [place] [phone] PCP - General Certified Nurse Practitioner 08/04/24 documented as of this encounter
--- OUTSIDE RECORDS SUMMARY | 2025-01-13 08:45 | XMS_ITS | Encounter Summary ---
Author Organization Krzysztof Co[employer] Turner [facility] O[facility] Address [address] [place] [address] Care Team Providers Care Shoe Handler Name Role Phone Arabella Le L TRANSCRIBING OPERATORS SUPERVISOR - ACCOUNT SERVICE REPRESENTATIVE Primary Care Provider Reason for Visit * Reason Comments Medication Refill Encounter Details Date Type Department Care Team (Late Contact Info) Description 10/09/2016 Refill [facility] [place] [address] [place] [address] Ade Lloyd, TRANSCRIBING OPERATORS SUPERVISOR - ARTIST CONSULTANT [address] [phone] Medication Refill Social History Tobacco Use Types [...] 9:20 AM EDT Office Visit [facility] Neurology [address] [place] [address] Waylon Moy MD [address] [place] [address] Dr [address] [place] [address] Postherpetic polyneuropathy documented as of this encounter Visit Diagnoses Not on filedocumented in this encounter Additional Health Concerns Infection Onset Date Last Indicated Resolved Time C-diff Rule Out 04/14/2021 04/14/2021 documented as of this encounter Care Teams Shoe Handler Relationship Specialty Start Date End Date Le Bell APRN - ACCOUNT SERVICE REPRESENTATIVE [address] [place] [phone] PCP - General Certified Nurse Practitioner 08/04/24 documented as of this encounter
--- OUTSIDE RECORDS SUMMARY | 2025-01-13 08:45 | XMS_ITS | Clinical Summary ---
Author Organization [facility] Address [address] [place] [address] Care Team Providers Care Restoration Technician Name Role Phone Arabella Le L INVENTORY REPRESENTATIVE - DENTAL CHAIRSIDE ASSISTANT Primary Care Provider Allergies Active Allergy [...] - 12/08/2024 11:59 PM EDT Hospital Encounter [facility] MRI [address] [place] [address] Lumbar back pain; Spondylolisthesis of thoracic region Discharge Disposition: Home or Self Care 11/27/2024 Transcribe Orders Lopez Pre Access [address] [phone] Juan Gerber PA Lumbar back pain (Primary Dx); Spondylolisthesis of thoracic region 10/22/2024 Abstract [facility] Drafting Layout Worker [address] [place] [address] Vidhya León 10/22/2024 Telephone [facility] Drafting Layout Worker [address] [place] [address] Raheem Rodriges DO 10/17/2024 9:34 AM EDT - 10/19/2024 11:59 PM EDT Hospital Encounter [facility] Non-Invasive Cardiology [address] [place] [address] Raheem Rodriges DO Tachycardia; Abnormal EKG; Heart murmur Discharge Disposition: Home or Self Care 10/14/2024 10:07 AM EDT - 10/14/2024 11:59 PM EDT Hospital Encounter [facility] Physical Therapy [address] [facility] [place] [address] Fabiana Reynolds, PT Discharge Disposition: Home or Self Care from Last 3 Months Immunizations Immunization Administration [...] [facility] [address] [place], [place] [phone] Waylon Moy MD [address] [place] [address] Postherpetic polyneuropathy Health Maintenance Due Date Last [...] cancer screen 10/23/2021 Pap smear 10/23/2021 10/23/2018, 01/0 03/2018, 02/25/2016, Additional history exists A1C test (Diabetic or Prediabetic) 07/04/2023 07/04/2022, 03/29/2022, 10/08/2021, Additional history exists Diabetic Alb to Cr ratio (uACR) test 07/04/2023 07/04/2022, 03/29/2022, 10/08/2021, Additional history exists Lipids 07/04/2023 07/04/2022, 03/17, 03/29/2022, Additional history exists COVID-19 Vaccine (1 - 4- season) 2024 Flu vaccine (Season Ended) 2025 [...] HEMOGLOBIN A1C Routine 07/04/2022 9:04 AM EST CARE TEAM COORDINATOR SCHEDULER CYTOLOGY Routine 10/23/2018 10:00 AM EDT HUMAN [...] No acute or healing fracture. Juan MORELOS [facility] [place] ORDER[place]LES Final Result * (ABNORMAL) ECHO (TTE) COMPLETE (10/17/2024 10:36 AM EDT) IVSd 1.3(A) 0.6 - 0.9 cm [facility] CV CPACS LVIDd 2.9(A) 3.9 - 5.3 cm [facility] CV [facility]ACS LVIDs 2.2 cm [facility] LVOT Diameter 1.8 cm [facility] LVPWd 1.5(A) 0.6 - 0.9 cm [facility]ACS LV Ejection Fraction A2C 43 % BS CV CPACS LV Ejection Fraction A4C 49 % BS CV CPACS EF BP 46(A) 55 - 100 % BS CV CPACS LV EDV A2C 44 mL BS CV CPACS LV EDV A4C 44 mL BS CV CPACS LV EDV BP 45(A) 56 - 104 mL BS CV CPACS LV ESV A2C 26 mL BS CV CPACS LV ESV A4C 23 mL BS CV CPACS LV ESV BP 24 19 - 49 mL BS CV CPACS LVOT Peak Gradient 4 mmHg BS CV CPACS LVOT Mean Gradient 2 mmHg BS CV CPACS LVOT SV 45.0 ml BS CV CPACS LVOT Peak Velocity 1.0 m/s BS CV CPACS LVOT VTI 17.7 cm BS CV CPACS RV Longitudinal Dimension 7.1 cm BS CV CPACS RV Mid Dimension 2.6 cm [...] CV CPACS Pulmonary Artery EDP 7 mmHg [facility] VT Max Velocity 1.3 m/s [facility] PV Peak Gradient 4 mmHg [facility] CV [facility] PV Max Velocity 1.0 m/s [facility] TAPSE 1.7 >=1.7 cm [facility] Ascending Aorta 3.0 cm [facility] Aortic Root 2.6 cm [facility] Fractional Shortening 2D 24 28 - 44 % [facility] LV RWT Ratio 1.03 [facility] LV Mass 2D 134.4 67 - 162 g [facility] LVOT Area 2.5 cm2 [facility] LA/AO Root Ratio 1.50 [facility] AV Velocity Ratio 0.71 [facility] LVOT:AV VTI Index 0.81 [facility] MV:LVOT VTI Index 0.72 [facility] Est. RA Pressure 3 mmHg [facility] EF Physician 55 % [facility] Anatomical Region Laterality Modality Echocardiography [...] - 144 mmol/L 09/09/2024 4:55 AM EST [facility] Potassium 4.2 3.7 - 5.3 mmol/L 09/09/2024 4:55 AM EST [facility] Chloride 95(L) 98 - 107 mmol/L 09/09/2024 4:55 AM EST [facility] CO2 26 20 - 31 mmol/L 09/09/2024 4:55 AM EST [facility] Anion Gap 13 9 - 17 mmol/L 09/09/2024 4:55 AM EST [facility] Glucose 215(H) 70 - 99 mg/dL 09/09/2024 4:55 AM EST [facility] BUN 11 6 - 20 mg/dL 09/09/2024 4:55 AM EST [facility] Creatinine 0.5 0.5 - 0.9 mg/dL 09/09/2024 4:55 AM EST [facility] Est, Glom Filt Rate >90 >60 mL/min/1.7 3m2 09/09/2024 4:55 AM EST [facility] Comment: These results are not intended [...] - 10.4 mg/dL 09/09/2024 4:55 AM EST [facility] Blood BLOOD SPECIMEN / Unknown 09/09/2024 4:55 AM EST 09/09/2024 5:08 AM EST us Mallory Aleman MD CHEMISTRY ORDERABLES Final R esult [facility] [address] [place] [address], [facility] [phone] * CT CHEST WO CONTRAST (09/02/2024 5:54 [...] punctate left nephrolithiasis. Chaim Del Toro MD [facility] [place] ORDERABLES Final Res ult * (ABNORMAL) Microalbumin, Ur (07/04/2022 9:04 AM EST) Albumin Urine 17 <21 mg/L 07/04/2022 9:04 AM EST [facility] Creatinine, Ur 61.0 28.0 - 217.0 mg/dL 07/04/2022 9:04 AM EST [facility] Microalb/Document Restorer. Ratio 28(H) <25 mcg/mg creat 07/04/2022 9:04 AM EST [facility] 07/04/2022 9:04 AM EST 07/04/2022 9:05 AM EST Omar Shea MD URINE ORDERABLES Final Result Performing Organization Address [facility] de Phone Number [facility] [address] [place] [address], [facility] [phone] Care IT [address] [place] [address], [facility] [phone] * (ABNORMAL) Hemoglobin A1C (07/04/2022 9:04 AM EST) Hemoglobin A1C 13.6(H) 4.0 - 6.0 % 07/04/2022 9:04 AM EST [facility] Estimated Avg Glucose 344 mg/dL 07/04/2022 9:04 AM EST [facility] Comment: The ADA and AACC recommend providing the estimated average glucose result to permit better patient understanding of their HBA1c result. 07/04/2022 9:04 AM EST 07/04/2022 9:05 AM EST us Omar Shea MD CHEMISTRY ORDERABLES Final Res ult Performing Organization Address [facility] Co de Phone Number [facility] [address] [place] [address], [facility] [phone] Care IT [address] [place] [address], [facility] [phone] * (ABNORMAL) Lipid Panel (07/04/2022 9:04 AM EST) Cholesterol 338(H) <200 mg/dL 07/04/2022 9:04 AM EST [facility] Comment: Cholesterol Guidelines: <200 Desirable 200-240 Borderline >240 Undesirable HDL 37(L) >40 mg/dL 07/04/2022 9:04 AM EST [facility] Comment: HDL Guidelines: <40 Undesirable 40-59 Borderline >59 Desirable LDL Cholesterol 235(H) 0 - 130 mg/dL 07/04/2022 9:04 AM EST [facility] Comment: LDL Guidelines: <100 Desirable 100-129 Near to/above Desirable 130-159 Borderline >159 Undesirable Direct (measured) LDL and calculated LDL are not interchangeable tests. Chol/HDL Ratio 9.1(H) <5 07/04/2022 9:04 AM EST [facility] Comment: Triglycerides 330(H) <150 mg/dL 07/04/2022 9:04 AM EST [facility] Comment: Triglyceride Guidelines: <150 Desirable 150-199 Borderline 200-499 High >499 Very high Based on AHA Guidelines for fasting triglyceride, April 2012. 07/04/2022 9:04 AM EST 07/04/2022 9:05 AM EST us Omar Shea MD CHEMISTRY ORDERABLES Final Res ult [facility] [address] [place] [address], [facility] [phone] [phone] * CARE TEAM COORDINATOR SCHEDULER Cytology (10/23/2018 10:00 AM EDT) Cytology Report [id number] [facility] CONSULTING PATHOLOGISTS [facility] ANATOMIC PATHOLOGY [address] [place] [address] GYNECOLOGIC CYTOLOGY REPORT Patient Name: CASANDRA YEUNG MR#: [id number] Specimen #[id number] Source: 1: Cervical material, (ThinPrep vial, Imaging-assisted review) Clinical History LEEP: 2016 Z12.4 Encounter for screening for malignant neoplasm of cervix High Risk HPV DNA testing is requested if the diagnosis is ASC-US LMP: ablation INTERPRETATION Cervical material, (ThinPrep vial, Imaging-assisted review): Specimen Adequacy: Satisfactory for evaluation. -Endocervical/tra nsformation zone component is absent. Descriptive Diagnosis: Negative for intraepithelial lesion or malignancy. Safety Companion: JENI Reynolds JD(ASCP) Electronically Signed Out trever/11/06/2018 Care IT 10/23/2018 10:0 0 AM EDT 10/25/2018 10:00 AM EDT Grady Barrera MD PATHOLOGY/CYTOLOGY ORDERABLES Final Result Performing Organization Address City/[facility]/ZIP Co de Phone Number [facility] [address] [place], [place] [address] [phone] [address], [facility] [phone] * (ABNORMAL) Human papillomavirus (HPV) DNA probe thin prep high risk (02/25/2016 8:37 AM EDT) HPV SOURCE CERVICAL MATERIAL 03/16/2016 8:37 AM EDT [facility] HPV Sample .THIN PREP 03/16/2016 8:37 AM EDT [facility] HPV, Genotype 16 Not Detected NOTDET 2015 2:09 PM EDT [facility] HPV, Genotype 18 Not Detected NOTDET 2015 2:09 PM EDT [facility] HPV, High Risk Other DETECTED(A) NOTDET 03/16/2016 2:09 PM EDT [facility] HPV, Interpretation 03/16/2016 2:09 PM EDT [facility] Comment: This test amplifies and detects [...] or for other forensic purposes. Performed at [address] [address] [phone] 02/25/2016 8:37 AM EDT 03/16/2016 8:37 AM EDT Grady Barrera MD HEMATOLOGY ORDERABLES Final R esult Performing Organization Address City/[facility]/ZIP Co de Phone Number [facility] [address] [place] [address], [facility] [phone] [facility] * Hepatitis C antibody (06/23/2012 9:33 AM EST) Pathologist [facility] Hepatitis C Ab NONREACTIVE NR [facility] Comment: The hepatitis C procedure used [...] ordering HCV RNA by PCR. Performed at [address] [id number] 06/23/2012 9:33 AM EST 06/23/2012 9:34 AM EST Mukund Olivares MD IMMUNOLOGY ORDERABLES Final Resu lt Performing Organization Address [facility] Co de Phone Number [facility] [address] [place] [address], [facility] [phone] [facility] * HIV-1 and HIV-2 antibodies (06/23/2012 9:33 AM EST) Pathologist [facility] HIV 1/2 Antibody NONREACTIVE NR [facility] Comment: Interpretation: The presence of antibody to HIV and its association with the potential infectivity, transmission or diagnosis of AIDS has not been established. Furthermore, a 'Non-Reactive' test result does not exclude the possibility of exposure to or infection with HIV. If the above test result is 'Reactive', the Laboratory will order the confirmatory test. Performed at [address] [address] 06/23/2012 9:33 AM EST 06/23/2012 9:34 AM EST us Mukund Olivares MD IMMUNOLOGY ORDERABLES Final Resu lt Performing Organization Address [facility] Co de Phone Number [facility] [address] [place] [address], [facility] [phone] [facility] from Last 3 Months or Most [...] Dont Child Primary Decision Maker Care Teams Restoration Technician Relationship Specialty Start Date End Date Le Bell APRN - NP [address] [place] [phone] PCP - General Certified Nurse Practitioner 08/04/24
--- OUTSIDE RECORDS SUMMARY | 2025-01-13 08:45 | XMS_ITS | Encounter Summary ---
Author Organization Krzysztof [employer] Turner [facility] O[facility] Address [address] [place] [address] Care Team Providers Care Senior Pl Sql Developer Name Role Phone Arabella Le L MACHINE TRIMMER - POLICE ACADEMY INSTRUCTOR Primary Care Provider Reason for Visit * Reason Comments Medication Refill Encounter Details Date Type Department Care Team (Late Contact Info) Description 11/02/2016 Refill [facility] [place] [address] [place] [phone] Ade Lloyd, MACHINE TRIMMER - FISHING FLOATS ASSEMBLER [address] [phone] Medication Refill Social History Tobacco Use Types [...] 9:20 AM EDT Office Visit [facility] Neurology [address] [place] [address] Waylon Moy MD [address] [place] [address] Dr [address] [place] [address] Postherpetic polyneuropathy documented as of this encounter Visit Diagnoses Not on filedocumented in this encounter Additional Health Concerns Infection Onset Date Last Indicated Resolved Time C-diff Rule Out 04/14/2021 04/14/2021 documented as of this encounter Care Teams Senior Pl Sql Developer Relationship Specialty Start Date End Date Le Bell APRN - POLICE ACADEMY INSTRUCTOR [address] [place] [phone] PCP - General Certified Nurse Practitioner 08/04/24 documented as of this encounter
--- OUTSIDE RECORDS SUMMARY | 2025-01-13 08:45 | XMS_ITS | Encounter Summary ---
Author Organization Krzysztof Leigh [facility] Address [address] [place] [address] Care Team Providers Care Electronics Hardware Design Engineer Name Role Phone Arabella Le L TAP DANCER - RETAIL ACCOUNT MANAGER Primary Care Provider Reason for Visit * Reason Comments Medication Refill Encounter Details Date Type Department Care Team (Late Contact Info) Description 08/17/2016 Refill [facility] Primary Care of [place] [address] [place] [address] Ade Lloyd APRN - COTTON INSPECTOR [address] [place] [address] Medication Refill Social History Tobacco Use Types [...] 9:20 AM EDT Office Visit [facility] Neurology [address] [place] [address] Waylon Moy MD [address] [place] [address] Dr [address] [place] [address] Postherpetic polyneuropathy documented as of this encounter Visit Diagnoses Not on filedocumented in this encounter Additional Health Concerns Infection Onset Date Last Indicated Resolved Time C-diff Rule Out 04/14/2021 04/14/2021 documented as of this encounter Care Teams Electronics Hardware Design Engineer Relationship Specialty Start Date End Date Le Bell APRN - RETAIL ACCOUNT MANAGER [address] [place] [address] PCP - General Certified Nurse Practitioner 08/04/24 documented as of this encounter
--- OUTSIDE RECORDS SUMMARY | 2025-01-13 08:45 | XMS_ITS | Encounter Summary ---
Author Organization [facility] Address [address] [place] [address] Care Team Providers Care Healthcare Architect Name Role Phone Le Bell APRN, NP Primary Care Provider Reason for Referral * Imaging (Routine) - Closed Specialty Diagnoses / Procedures Referred By James martinez Referred To Contact Radiology Diagnoses Chest pain, unspecified type Procedures NM MYOCARDIAL SPECT REST EXERCISE OR RX Le Bell APRN - NP [address] [place] [address] Phone: tel: fax: Referral ID Status Reason Start Date Expiration Date Visits Re quested Visits Authorized [id number] Closed 04/22/2021 04/22/2022 1 1 Encounter Details Date Type Department Care Team (Latest Contact Info) Description 04/22/2021 Transcribe Orders Lopez Pre Access [address] [place] [address] Le Bell APRN - NP [address] [place] [address] Chest pain, unspecified type (Primary [...] Description 01/27/2025 9:20 AM EDT Office Visit [facility] Neurology [address] [place] [address] Waylon Moy MD [address] [facility] [address] [place] [address] Postherpetic polyneuropathy Scheduled Orders Name [...] documented as of this encounter Care Teams Healthcare Architect Relationship Specialty Start Date End Date Le Bell, MACHINE OVERHAULER - INTELLIGENCE INTERN [address] [place] [phone] PCP - General Certified Nurse Practitioner 08/04/24 documented as of this encounter
--- OUTSIDE RECORDS SUMMARY | 2025-01-13 08:45 | XMS_ITS | Encounter Summary ---
Author Organization Krzysztof [employer] [facility] Address [address] [place] [address] Care Team Providers Care Rolled Gold Plater Name Role Phone Arabella Le L SEO ENGINEER - NEWS ASSISTANT Primary Care Provider Reason for Visit * Reason Comments Medication Refill Encounter Details Date Type Department Care Team (Late Contact Info) Description 10/26/2016 Refill [facility] [place] [address] [place] [phone] Ade Lloyd, SEO ENGINEER - TESTING ENGINEER [address] [phone] Medication Refill Social History Tobacco Use Types [...] Description 01/27/2025 9:20 AM EDT Office Visit [facility] Neurology [address] [place] [address] Waylon Moy MD [address] [place] [address] Dr [address] [place] [address] Postherpetic polyneuropathy documented as of this encounter Visit Diagnoses Not on filedocumented in this encounter Additional Health Concerns Infection Onset Date Last Indicated Resolved Time C-diff Rule Out 04/14/2021 04/14/2021 documented as of this encounter Care Teams Rolled Gold Plater Relationship Specialty Start Date End Date Le Bell APRN - NEWS ASSISTANT [address] [place] [phone] PCP - General Certified Nurse Practitioner 08/04/24 documented as of this encounter
--- OUTSIDE RECORDS SUMMARY | 2025-01-13 08:45 | XMS_ITS | Encounter Summary ---
Author Organization Krzysztof Leigh [facility] Address [address] [place] [address] Care Team Providers Care Field Adjuster Name Role Phone Arabella Le L FRYER OPERATOR - MASTER ESTHETICIAN Primary Care Provider Reason for Visit * Reason Comments Medication Refill Encounter Details Date Type Department Care Team (Late Contact Info) Description 11/17/[address] [facility] Primary Care of [place] [address] [place] [address] Ade Lloyd APRN - LINE TECHNICIAN [address] [place] [address] Medication Refill Social History Tobacco Use Types [...] AM EDT Office Visit [facility] Neurology [address] [place] [address] Waylon Moy MD [address] [place] [address] Dr [address] [place] [address] Postherpetic polyneuropathy documented as of this encounter Visit Diagnoses Not on filedocumented in this encounter Additional Health Concerns Infection Onset Date Last Indicated Resolved Time C-diff Rule Out 04/14/2021 04/14/2021 documented as of this encounter Care Teams Field Adjuster Relationship Specialty Start Date End Date Le Bell APRN - MASTER ESTHETICIAN [address] [place] [phone] PCP - General Certified Nurse Practitioner 08/04/24 documented as of this encounter
--- OUTSIDE RECORDS SUMMARY | 2025-01-13 08:46 | XMS_ITS | Encounter Summary ---
Author Organization [facility]ysztof [facility] Address [address] [place] [address] Care Team Providers Care Housing Grant Analyst Name Role Phone Le Bell Preet BAIN - COMPRESSED GAS TESTER Primary Care Provider Encounter Details Date Type Department Care Team ([facility] Contact Info) Description 10/11/2012 PAT Telephone [facility] PRE ADMIT [address] [place] [address] Amy Wilson, RN Social History Tobacco Use [...] Upcoming Encounters Date Type Department Care Team ([facility] Contact Info) Description 01/27/2025 9:20 AM EDT Office Visit [facility] Neurology [address] [place] [address] Waylon Moy MD [address] [place] [address] Postherpetic polyneuropathy documented as of this encounter Visit Diagnoses Not on filedocumented in this encounter Additional Health Concerns Infection Onset Date Last Indicated Resolved Time C-diff Rule Out 04/14/2021 04/14/2021 documented as of this encounter Care Teams Housing Grant Analyst Relationship Specialty Start Date End Date Le Bell, JOLENE - COMPRESSED GAS TESTER [address] [place] [address] PCP - General Certified Nurse Practitioner 08/04/24 documented as of this encounter
--- OUTSIDE RECORDS SUMMARY | 2025-01-13 08:46 | XMS_ITS | Encounter Summary ---
Author Organization [facility] Address [address] [place] [address] Care Team Providers Care Event Specialist Food Demonstrator Name Role Phone Le Bell Preet RESEARCH PROFESSIONAL - FIBERGLASS PRODUCT TESTER Primary Care Provider Encounter Details Date Type Department Care Team (Late Contact Info) Description 04/22/2016 FollowUp Telephone Encounter [facility] General Surgery [address] [place] [address] Dandy Fulton, RN Social History Tobacco Use [...] Upcoming Encounters Date Type Department Care Team ([facility] Contact Info) Description 01/27/2025 9:20 AM EDT Office Visit [facility] Neurology [address] [place] [address] Waylon Moy MD [address] [place] [address] [place] [address] Postherpetic polyneuropathy documented as of this encounter Visit Diagnoses Not on filedocumented in this encounter Additional Health Concerns Infection Onset Date Last Indicated Resolved Time C-diff Rule Out 04/14/2021 04/14/2021 documented as of this encounter Care Teams Event Specialist Food Demonstrator Relationship Specialty Start Date End Date Le Bell, RESEARCH PROFESSIONAL - FIBERGLASS PRODUCT TESTER [address] [place] [phone] PCP - General Certified Nurse Practitioner 08/04/24 documented as of this encounter
--- OUTSIDE RECORDS SUMMARY | 2025-01-13 08:46 | XMS_ITS | Clinical Summary ---
Author Organization [facility] Address [address] [place] [address] Care Team Providers Care Statistics Teacher Name Role Phone Unavailable Primary Care Provider [...]
--- OUTSIDE RECORDS SUMMARY | 2025-01-13 08:46 | XMS_ITS | Encounter Summary ---
Author Organization [facility] Address [address] [place] [address] Care Team Providers Care Computer Systems Auditor Name Role Phone Arabella Le Preet PROOFSHEET CORRECTOR - AIRCRAFT GENERAL REPAIR MECHANIC Primary Care Provider Reason for Visit * Reason Comments Other Encounter Details Date Type Department Care Team (Late Contact Info) Description 10/26/2013 Refill [facility] Primary Care of [address] [phone] Kerri Lovelace, PALelaC [address] [facility] [address] [place] [address] Other Social History Tobacco Use [...] Description 01/27/2025 9:20 AM EDT Office Visit [facility] Neurology [address] [place] [address] Waylon Moy MD [address] [place] [address] Dr [address] [place] [address] Postherpetic polyneuropathy documented as of this encounter Visit Diagnoses Not on filedocumented in this encounter Additional Health Concerns Infection Onset Date Last Indicated Resolved Time C-diff Rule Out 04/14/2021 04/14/2021 documented as of this encounter Care Teams Computer Systems Auditor Relationship Specialty Start Date End Date Le Bell APRN - AIRCRAFT GENERAL REPAIR MECHANIC [address] [place] [phone] PCP - General Certified Nurse Practitioner 08/04/24 documented as of this encounter
--- OUTSIDE RECORDS SUMMARY | 2025-01-13 08:46 | XMS_ITS | Encounter Summary ---
Author Organization [facility] Address [address] [place] [address] Care Team Providers Care Modern Languages Professor Name Role Phone Arabella Le L FINAL ARMATURE TESTER - MASH GRINDER Primary Care Provider Reason for Visit * Reason Comments Medication Refill Encounter Details Date Type Department Care Team (Late Contact Info) Description 07/27/2016 Refill [facility] Primary Care of [place] [address] [place] [address] Ade Lloyd APRN - REPAIR MANAGER [address] [place] [id number] Medication Refill Social History Tobacco Use Types [...] Description 01/27/2025 9:20 AM EDT Office Visit [facility] Neurology [address] [place] [address] Waylon Moy MD [address] [place] [address] Dr [address] [place] [address] Postherpetic polyneuropathy documented as of this encounter Visit Diagnoses Diagnosis Left lateral epicondylitis Lateral epicondylitis of elbow documented in this encounter Additional Health Concerns Infection Onset Date Last Indicated Resolved Time C-diff Rule Out 04/14/2021 04/14/2021 documented as of this encounter Care Teams Modern Languages Professor Relationship Specialty Start Date End Date Le Bell, FINAL ARMATURE TESTER - MASH GRINDER [address] [place] [phone] PCP - General Certified Nurse Practitioner 08/04/24 documented as of this encounter
--- OUTSIDE RECORDS SUMMARY | 2025-01-13 08:46 | XMS_ITS | Clinical Summary ---
Author Organization [facility] Address [address] [facility] [place] [address] Care Team Providers Care Electrical Tester Battery Name Role Phone Le Bell DIRECTOR CHILD DEVELOPMENT CENTER Primary Care Provider [phone] Allergies Active Allergy Reactions Criticality Noted Date Comments Penicillins 04/21/2021 Pravastatin Hives 10/13/2010 Medications Aspirin Low Dose [address] tablet Take 81 mg by mouth daily. 1 Active Continuous Blood Gluc Commissions Coordinator ([employer] Prabhakar [facility] [place] [facility]) DeviceIndications: Uncontrolled type 2 diabetes mellitus [...] Advance Directives For more information, please contact: [phone] (7:30 AM - 6PM Tammy/[facility], Monday-Monday) * Full Code (Latest Code Status on File) Date Activated Date Inactivated Comments 06/21/2022 5:19 PM Care Teams Electrical Tester Battery Relationship Specialty Start Date End Date Le Bell CNP PCP - General Family Medicine 06/21/21
--- OUTSIDE RECORDS SUMMARY | 2025-01-13 08:46 | XMS_ITS | Encounter Summary ---
Author Organization [facility] [employer] Address [address] [place] [address] Care Team Providers Care Disability Rater Name Role Phone Arabella Le L MANAGER PRODUCE - WELFARE MANAGER Primary Care Provider Reason for Visit * Reason Comments Medication Refill Encounter Details Date Type Department Care Team (Late Contact Info) Description 09/06/2017 Refill [facility] [place] [address] [place] [phone] Ade Lloyd, MANAGER PRODUCE - CENTRAL SERVICE SUPPLY DISTRIBUTOR [address] [phone] Medication Refill Social History Tobacco Use Types [...] Description 01/27/2025 9:20 AM EDT Office Visit [facility] Neurology [address] [place] [address] Waylon Moy MD [address] [place] [address] Dr [address] [place] [address] Postherpetic polyneuropathy documented as of this encounter Visit Diagnoses Not on filedocumented in this encounter Additional Health Concerns Infection Onset Date Last Indicated Resolved Time C-diff Rule Out 04/14/2021 04/14/2021 documented as of this encounter Care Teams Disability Rater Relationship Specialty Start Date End Date Le Bell APRN - WELFARE MANAGER [address] [place] [phone] PCP - General Certified Nurse Practitioner 08/04/24 documented as of this encounter
--- OUTSIDE RECORDS SUMMARY | 2025-01-13 08:46 | XMS_ITS | Encounter Summary ---
Author Organization [facility] Address [address] [place] [address] Care Team Providers Care Clinical Psychology Professor Name Role Phone Unavailable Primary Care Provider Unavailabl e Reason for Visit * Reason Comments Med Refill Encounter Details Date Type Department Care Team (Latest Contact Info) Description 02/25/2024 Refill [facility] Shaikh iGl MD [address] [place] [phone] Social History Tobacco Use Types Packs/Day Years [...]
[2025-01-13 09:20] VITALS: BP 107/70; PULSE 120; TEMP 36.4; O2SAT 99
[2025-01-13 09:59] VITALS: BP 118/79; BP 127/81; PULSE 113; O2SAT 95; O2SAT 96
[2025-01-13] MEDS: BUPIVACAINE HCL 0.25% PF 25 MG/10 ML VIAL 4 ML INJ (10:00)
[2025-01-13] MEDS: LIDOCAINE HCL 2% 400 MG/20 ML MDV INJ (10:01)
--- NOTE | 2025-01-13 10:02 | W.PM.PROCNOT ---
Date of procedure: 01/13/25 Pre-op diagnosis: Pain due to lumbar spondylosis without myelopathy Post-op diagnosis: same as pre-op Procedure: Procedure: Left L4-5, l5-S1 medial branch block Medications: Bupivacaine 0.25% 3cc The patient was seen and examined in the preoperative holding area.? An informed consent was obtained and placed on the chart.? The patient was brought to the medical procedure unit and placed in the prone position.? A timeout was completed verifying correct patient, procedure site, positioning, plan, and special equipment.? Using aseptic technique, the needle was placed at left L4. Under direct fluoroscopic visualization a Quincke-tipped spinal needle was advanced to the junction of the superior articulating process with the transverse process at the designated medial branch segment.? Preceded by negative aspiration, the above-mentioned injectate was placed in 1 mL aliquots.? The procedure was completed at left L5, S1.? The needle was removed and insertion site was covered.? The patient was taken to the postprocedural recovery area and monitored for an appropriate length of time before found suitable for discharge in the company of a responsible adult. Anesthesia: Local Surgeon: Ivana Velasquez Pathology: none sent Condition: stable Disposition: no change
== END 2025-01-13 10:07 | disposition home or self-care (01) ==
LOC: SURGOUT 08:43
PROVIDERS: Visit Provider Anesthesiology
DX: M47.816 Spondylosis without myelopathy or radiculopathy, lumbar region (principal); E11.8 Type 2 diabetes mellitus with unspecified complications; Z79.85 Long-term (current) use of injectable non-insulin antidiabetic drugs
CPT/HCPCS: 64493; 64494; 82948; J0665

== ENCOUNTER 2025-01-16 12:28 | Outpatient (OUT) | payer OTHER, SELFPAY ==
--- OUTSIDE RECORDS SUMMARY | 2016-07-06 14:44 | XMS_ITS | Encounter Summary ---
Author Organization [facility] Address [address] [place] [address] Care Team Providers Care Coating Manager Name Role Phone Ade Lloyd JOLENE - FIELD LOGISTICS COORDINATOR Primary Care Provider Reason for Referral * Imaging (Routine) - Closed Specialty Diagnoses / Procedures Referred By James martinez Referred To Contact Radiology Diagnoses Abnormal CT scan Calcification of ovary Procedures MRI Pelvis W WO Contrast MRI Abdomen Pelvis W WO Contrast Grady Barrera MD Phone: tel: fax: Referral ID Status Reason Start Date Expiration Date Visits Re quested Visits Authorized [id number] Closed 06/27/2016 06/27/2017 1 1 Encounter Details Date Type Department Care Team (Latest Contact Info) Description 07/06/2016 1:44 PM EST Hospital Encounter [facility] MRI [address] [place] [address] Grady Barrera MD 27 [facility] [address] scan; Calcification of ovary Social History Tobacco Use Types Packs/Day Years Used Date Smoking Tobacco: Former Cigarettes 1.5 30 0 07/25/1987 - 07/25/2017 Smokeless Tobacco: Never Alcohol Use Standard Drinks/Week Comments No 0 (1 standard drink = 0.6 oz pur e alcohol) AUDIT-C Answer Date Recorded Q1: How often do you have a drink containing alcohol? Never 09/29/2024 Q2: How many drinks containi ng alcohol do you have on a typical day when you are drinking? Patient does not drink Q3: How often do you have si x or more drinks on one occasion? Never 09/29/2024 PHQ-2 Answer Date Recorded PHQ-2 Score 2 10/17/2018 Interpersonal Safety Domain Source: IP Abuse Scr eening Answer Date Recorded Physical abuse Denies 09/09/2024 Verbal abuse Denies 09/09/2024 Emotional abuse Denies 09/09/2024 Financial abuse Denies 09/09/2024 Sexual abuse Denies 09/09/2024 Comments No Sex and Gender Information Value Date Recorded Sex Assigned at Not on file Legal Sex Female 11:44 AM EST Gender Identity Not on file Sexual Orientation Not on file COVID-19 Exposure Response Date Recorded In the last 10 days, have yo u been in contact with someone who was confirmed or suspected to have Coronavirus/COVID-19? No / Unsure 07/05/2022 9:53 AM EST documented as of this encounter Functional Status documented as of this encounter Plan of Treatment Upcoming Encounters Date Type Department Care Team (Late st Contact Info) Description 01/27/2025 9:20 AM EDT Office Visit [facility] [address] [place] [address] Waylon Moy MD [address] [facility] [address] [place] [address] Postherpetic polyneuropathy documented as of this encounter Procedures Procedure Name Priority Date/Time Associated Diagnosis Comments RADIOLOGY REPORT 08/19/2016 2:43 PM EST MRI PELVIS W WO CONTRAST Routine 07/06/2016 3:[address] scan Calcification of ovary BUN & CREATININE Routine 07/06/2016 2:20 PM EST documented in this encounter Results * RADIOLOGY REPORT (08/19/2016 2:43 PM EST) Anatomical Region Laterality Modality Magnetic Resonan ce us Hpf Scanning IMG DIAGNOSTIC IMAGING ORDERABLE S Final Result * MRI Pelvis W WO Contrast (07/06/2016 3:29 PM EST) Anatomical Region Laterality Modality Abdomen, Pelvis, Hip Magnetic Re sonance 07/06/2016 3:41 PM EST Impressions 07/06/2016 6:40 PM EST Ovaries appear normal by MRI; only follicles but no abnormal masses appreciated. Consider 6-12 month sonographic follow-up Two fundal intramural uterine fibroids. One has some internal enhancement. Otherwise unremarkable Narrative 07/06/2016 6:40 PM EST MRI PELVIS W WO CONTRAST Indication: Possible right ovarian mass Comparison: CT 06/26/2016 Pre and post Magnevist 19 mL IV Uterus has 2 fundal intramural fibroids, measuring 2.2 cm and 1.2 cm. One of these may have some internal enhancement on subtraction images. No definite subserosal or submucosal fibroid. Endometrium is unremarkable. Ovaries are normal in size and have a few follicles. An abnormal mass is not appreciated. No free fluid. No enlarged lymph node. Major vessels are patent. Procedure Note Anthony Khoury MD - 07/06/2016 MRI PELVIS W WO CONTRAST Indication: Possible right ovarian mass Comparison: CT 06/26/2016 Pre and post Magnevist 19 mL IV Uterus has 2 fundal intramural fibroids, measuring 2.2 cm and 1.2 cm. Oneof these may have some internal enhancement on subtraction images. Nodefinite subserosal or submucosal fibroid. Endometrium is unremarkable. Ovaries are normal in size and have a few follicles. An abnormal mass is notappreciated. No free fluid. No enlarged lymph node. Major vessels are patent. IMPRESSION: Ovaries appear normal by MRI; only follicles but no abnormal masses appreciated. Consider 6-12 month sonographic follow-up Two fundal intramural uterine fibroids. One has some internalenhancement. Otherwise unremarkable us Grady Barrera MD IMG MRI ORDERABLES Final Resu lt * BUN & Creatinine (07/06/2016 2:20 PM EST) BUN 11 6 - 20 mg/dL 07/06/2016 2:40 PM EST [facility] Creatinine 0.55 0.50 - 0.90 mg/dL 07/06/2016 2:40 PM EST [facility] GFR Non- >60 >60 mL/min 07/06/2016 2:40 PM EST [facility] GFR >60 >60 mL/min 07/06/2016 2:40 PM EST [facility] GFR Comment 07/06/2016 2:40 PM EST [facility] Comment: Average GFR for 40-49 years old: 99 mL/min/1.73sq m Chronic Kidney Disease: <60 mL/min/1.73sq m Kidney failure: <15 mL/min/1.73sq m Performed at [facility] [address] [place] [address] ([phone] GFR Staging NOT REPORTED [facility] 07/06/2016 2:20 PM EST 07/06/2016 2:21 PM EST us Grady Barrera MD CHEMISTRY ORDERABLES Final Re sult [facility] [address] [place] [address], [facility] [phone] [facility] documented in this encounter Visit Diagnoses Diagnosis Abnormal CT scan Other nonspecific (abnormal) findings on radiological and other examinations of body structure Calcification of ovary documented in this encounter Administered Medications Inactive Administered Medications - up to 3 most recent administrations Medication Order MAR Action Action Date Dose Rate Site gadopentetate dimeglumine (MAGNEVIST) injection 19 mL 19 mL, IntraVENous, IMG ONCE PRN, 1 dose, Starting on Mon07/06/16 at 1530, Until Mon07/06/16 at 1531, Other, one time dose Given 07/06/2016 3:31 PM EST 19 mLs documented in this encounter Additional Health Concerns Infection Onset Date Last Indicated Resolved Time C-diff Rule Out 04/14/2021 04/14/2021 documented as of this encounter Care Teams Coating Manager Relationship Specialty Start Date End Date Ade Lloyd, BOARD LINING 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 - FIELD LOGISTICS COORDINATOR [address] [place] [address] PCP - General Certified Nurse Practitioner 08/01/14 02/10/20 documented as of this encounter
--- OUTSIDE RECORDS SUMMARY | 2025-01-16 12:30 | XMS_ITS | Encounter Summary ---
Author Organization [facility] Address [address] [place] [address] Care Team Providers Care Vocational Director Name Role Phone Le Bell SCIENTIFIC AFFAIRS MANAGER - HEALTH PROFESSIONAL Primary Care Provider Encounter Details Date Type Department Care Team (Late Contact Info) Description 06/21/2021 Transcribe Orders [facility] [address] [place] [address] Le Bell, SCIENTIFIC AFFAIRS MANAGER - HEALTH PROFESSIONAL [address] [place] [address] Social History Tobacco Use Types [...] Upcoming Encounters Date Type Department Care Team ([facility] Contact Info) Description 01/27/2025 9:20 AM EDT Office Visit [facility] Neurology [address] [place] [address] Waylon Moy MD [address] [facility] [address] [place] [phone] 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
--- OUTSIDE RECORDS SUMMARY | 2025-01-16 12:30 | XMS_ITS | Encounter Summary ---
Author Organization [facility] [employer] [facility] Address [address] [place] [address] Care Team Providers Care Bricklayer Helper Name Role Phone Arabella Le L FIELD DIRECTOR - WOOD HEEL FITTER MACHINE Primary Care Provider Reason for Visit * Reason Comments Medication Refill Encounter Details Date Type Department Care Team (Late Contact Info) Description 10/26/2016 Refill [facility] [place] [address] [place] [address] Ade Lloyd, FIELD DIRECTOR - DIGITAL FORENSICS EXAMINER [address] [phone] Medication Refill Social History Tobacco Use Types [...] Visit [facility] Neurology [address] [place] [address] Waylon Moy MD [address] [place] [address] Dr [address] [place] [address] Postherpetic polyneuropathy documented as of this encounter Visit Diagnoses Not on filedocumented in this encounter Additional Health Concerns Infection Onset Date Last Indicated Resolved Time C-diff Rule Out 04/14/2021 04/14/2021 documented as of this encounter Care Teams Bricklayer Helper Relationship Specialty Start Date End Date Le Bell APRN - WOOD HEEL FITTER MACHINE [address] [place] [phone] PCP - General Certified Nurse Practitioner 08/04/24 documented as of this encounter
--- OUTSIDE RECORDS SUMMARY | 2025-01-16 12:30 | XMS_ITS | Encounter Summary ---
Author Organization [facility] Address [address] [place] [address] Care Team Providers Care Speeder Hand Name Role Phone Arabella Le L CELL CLEANER - CULTURE MANAGER Primary Care Provider Reason for Visit * Reason Comments Medication Refill Encounter Details Date Type Department Care Team (Late Contact Info) Description 03/26/2017 Refill [facility] Primary Care of [place] [address] [place] [address] Ade Lloyd APRN - SUPERVISOR SHEARING [address] [place] [phone] Medication Refill Social History Tobacco Use Types [...] [facility] Neurology [address] [place] [address] Waylon Moy MD [address] [place] [address] Dr [address] [place] [address] Postherpetic polyneuropathy documented as of this encounter Visit Diagnoses Not on filedocumented in this encounter Additional Health Concerns Infection Onset Date Last Indicated Resolved Time C-diff Rule Out 04/14/2021 04/14/2021 documented as of this encounter Care Teams Speeder Hand Relationship Specialty Start Date End Date Le Bell APRN - CULTURE MANAGER [address] [place] [phone] PCP - General Certified Nurse Practitioner 08/04/24 documented as of this encounter
--- OUTSIDE RECORDS SUMMARY | 2025-01-16 12:30 | XMS_ITS | Encounter Summary ---
Author Organization [facility] [employer] Address [address] [place] [address] Care Team Providers Care Medical Staff Assistant Name Role Phone Arabella Le L PARK INTERPRETIVE RANGER - DELINQUENT TAX COLLECTOR Primary Care Provider Reason for Visit * Reason Comments Medication Refill Encounter Details Date Type Department Care Team (Late Contact Info) Description 10/09/2016 Refill [facility] [place] [address] [place] [address] Ade Lloyd, PARK INTERPRETIVE RANGER - RAILWAY HEAD TENDER [address] [phone] Medication Refill Social History Tobacco Use Types [...] [facility] Neurology [address] [place] [address] Waylon Moy MD [address] [place] [address] Dr [address] [place] [address] 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
--- OUTSIDE RECORDS SUMMARY | 2025-01-16 12:30 | XMS_ITS | Encounter Summary ---
Author Organization [facility] Address [address] [place] [address] Care Team Providers Care Asphalt Heater Tender Name Role Phone Arabella Le L PAPER REEL OPERATOR - PANTOGRAPH TRANSFERRER Primary Care Provider Reason for Visit * Reason Comments Medication Refill Encounter Details Date Type Department Care Team (Late Contact Info) Description 11/17/2016 Refill [facility] Primary Care of [place] [address] [place] [address] Ade Lloyd APRN - ABALONE SHELLER [address] [place] [address] Medication Refill Social History Tobacco Use Types [...] Visit [facility] Neurology [address] [place] [address] Waylon Moy MD [address] [place] [address] Dr [address] [place] [address] 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
--- OUTSIDE RECORDS SUMMARY | 2025-01-16 12:31 | XMS_ITS | Encounter Summary ---
Author Organization [facility] Address [address] [place] [address] Care Team Providers Care Fountain Worker Name Role Phone Le Bell APRN, NP Primary Care Provider Reason for Referral * Imaging (Routine) - Closed Specialty Diagnoses / Procedures Referred By James martinez Referred To Contact Radiology Diagnoses Chest pain, unspecified type Procedures NM MYOCARDIAL SPECT REST EXERCISE OR RX Le Bell APRN - NP [address] [place] [address] Phone: tel: fax: Referral ID Status Reason Start Date Expiration Date Visits Re quested Visits Authorized [id number] Closed 04/22/2021 04/22/2022 1 1 Encounter Details Date Type Department Care Team (Latest Contact Info) Description 04/22/2021 Transcribe Orders [facility] Pre Access [address] [place] [address] Le Bell APRN - NP [address] [place] [address] Chest pain, unspecified type (Primary [...] Office Visit [facility] Neurology [address] [place] [address] Waylon Moy MD [address] [facility] [address] [place] [address] Postherpetic polyneuropathy Scheduled Orders Name [...] documented as of this encounter Care Teams Fountain Worker Relationship Specialty Start Date End Date Le Bell, COMMERCIAL JOURNEYMAN ELECTRICIAN - PRINCIPAL CLOUD ARCHITECT [address] [place] [phone] PCP - General Certified Nurse Practitioner 08/04/24 documented as of this encounter
--- OUTSIDE RECORDS SUMMARY | 2025-01-16 12:31 | XMS_ITS | Encounter Summary ---
Author Organization [facility] Address [address] [place] [address] Care Team Providers Care Chapter Relations Administrator Name Role Phone Arabella Le Preet INSPECTOR PROCESS - GORING CUTTER Primary Care Provider Reason for Visit * Reason Comments Other Encounter Details Date Type Department Care Team (Late Contact Info) Description 10/26/2013 Refill [facility] Primary Care of [address] [phone] Kerri Lovelace, PALelaC [address] [facility] [address] [place] [address] Other Social History Tobacco Use [...] Office Visit [facility] Neurology [address] [place] [address] Waylon Moy MD [address] [place] [address] Dr [address] [place] [address] Postherpetic polyneuropathy documented as of this encounter Visit Diagnoses Not on filedocumented in this encounter Additional Health Concerns Infection Onset Date Last Indicated Resolved Time C-diff Rule Out 04/14/2021 04/14/2021 documented as of this encounter Care Teams Chapter Relations Administrator Relationship Specialty Start Date End Date Le Bell APRN - GORING CUTTER [address] [place] [phone] PCP - General Certified Nurse Practitioner 08/04/24 documented as of this encounter
--- OUTSIDE RECORDS SUMMARY | 2025-01-16 12:31 | XMS_ITS | Patient Health Record ---
Author Organization [facility] Address [address] [place] [address] Care Team Providers Care Sewer Bricklayer Name Role Phone ArabellaLe Primary Care Provider Juan Hayes Unavailable [phone] Camilla Wagoner Unavailable [phone] Results Component Value Reference Range Notes MRI LUMBAR SPINE WO CONTRAST Reviewed date:12/11/2024 07:25:46 AM Interpretation: Performing Lab: Notes/Report: EXAM: MRI LUMBAR SPINE WO CONTRAST Performed at: [address] [address] Reason For Referral Reason DENIED.............. .....................NOT SCHEDULED........................................[facility] MRI THORACIC TO BE DONE AT [place] Diagnosis 1 Mid back pain (M54.9 ) Referral Organization [facility] Referring Provider First Name Franci Referring Provider Last Name Cora Referring Provider Speciality Orthopedic Surgery Referred Organization [facility] Procedure 1 MRI Thoracic Spine w /o Dye ([id number]) General Notes Karli Gongora 2024 11:25:34 AM >, Clara Corona 08/23/2024 11:32:57 AM > WAITING ON TODAY'S OFFICE NOTE, Clara Corona 08/28/2024 12:34:53 PM > AUTHORIZATION REQUEST SUBMITTED WITH CLINICALS VIA [facility], TRACKING # [id number], Clara Corona 09/04/2024 07:53:03 AM > PENDING PER [facility].Chloe Kayla 09/04/2024 01:05:00 PM > CASE PENDING ADDITIONAL INFORMATION PER FAX BACK FROM [facility]. THEY'RE NEEDING NOTES SHOWING THAT PATIENT HAS TRIED AND FAILED 6 WEEKS OF PHYSICAL THERAPY WITHIN THE LAST 6 MONTHS., Clara Corona 09/05/2024 07:42:08 AM > CASE NOW DENIED PER FAX BACK FROM [facility]. SCANNED INTO CHART.Sybil Sara 09/05/2024 10:01:07 AM > faxed Referral Priority Routine Reason APPROVED............ .................NOT SCHEDULED..............................[facility] MRI LUMBAR TO BE DONE AT [place] Diagnosis 1 Lumbar back pain (M5 4.50) Referral Organization [facility] Referring Provider First Name Franci Referring Provider Last Name [facility] Referring Provider Speciality Orthopedic Surgery Referred Organization [facility] Procedure 1 MRI Lumbar Spine w/o Dye ([id number]) General Notes Karli Gongora 2024 11:42:03 AM >, Clara Corona 11/15/2024 11:43:25 AM > WAITING ON TODAY'S OFFICE NOTEChloe Kayla 11/20/2024 02:12:12 PM > AUTHORIZATION REQUEST SUBMITTED WITH CLINICALS [facility]IA [facility], TRACKING # [id number], Clara Corona 11/25/2024 11:31:33 AM > AUTHORIZATION # [id number] APPROVED AND VALID 11/20/24-01/19/25 PER FAX BACK FROM [facility]. SCANNED INTO CHART AND FAXED TO [facility].Sybil Sara 11/25/2024 11:57:40 AM > order faxed Referral Priority Routine Reason [facility] Diagnosis 1 Lumbar stenosis with neurogenic claudication (M48.062) Referral Organization [facility] Referring Provider First Name Franci Referring Provider Last Name Cora Referring Provider Speciality Orthopedic Surgery Referred Organization [facility] Referred Address [address] [place] [address],[address], [address],[place],[address], General Notes Karli Gongora 2024 10:43:22 AM >, Karli Gongora 12/24/2024 02:30:46 PM >PATIENT SCHEDULED TO BE SEEN TOMORROW 12/25/24. 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 Problem [id number] Neuroforaminal stenosis of lumbar spine (M48.061) Active confirmed Vital Signs Height 5'7 in 08/23/2024 Weight 178 lbs 08/23/2024 BMI 27.88 08/23/2024 Encounters Encounter Location Date Provider [facility] [address] [place] [address] 08/23/2024 [facility] Thoracic radiculopathy M54.14 and Thoracic spine pain M54.6 [place] [address] [place] [address] 11/15/2024 Juan Diglio Lumbar back pain M54 .50 and Spondylolisthesis of thoracic region M43.14 [place] [address] [place] [address] 12/20/[address] [place] [address] Neuroforaminal stenosis of lumbar spine M48.061 and Spondylolisthesis, lumbar region M43.16 Assessments Encounter Date Diagnosis (ICD Code) Assessment Notes Treatment Notes Treatment Clinical Notes Section Notes 08/23/2024 Thoracic radiculopathy (ICD-10 - M54.14) 1. Thoracic pa in and radiculopathy 08/23/2024 Thoracic spine pain (ICD-10 - M54.6) 1. Thoracic rohit n and radiculopathy 11/15/2024 Spondylolisthesis of thoracic region (ICD-10 - M43.14) 1. Low back pain 2. L4-5 spondylolisthesi s, grade 1 11/15/2024 Lumbar back pain (ICD-10 - M54.50) 1. Low back pain 2. L4-5 spondylolisthesi s, grade 1 12/20/2024 Spondylolisthesis, lumbar region (ICD-10 - M43.16) 1. L4-5 stenosis and neuroforaminal stenosis 2. L4-5 spondylolisthesi s, grade 1 12/20/2024 Neuroforaminal stenosis of lumbar spine (ICD-10 - M48.061) 1. L4-5 stenosis and neuroforaminal stenosis 2. L4-5 spondylolisthesi s, grade 1 08/23/2024 Other I discussed with patient today [...] regards, 1. Low back pain 2. L4-5 spondylolisthesi s, grade 1 12/20/2024 Other Plan established by Dr. Hernandez. At this time, Dr. Hernandez discussed MRI results with the patient and is recommending referral to pain management for a radiofrequency ablation. If this does not help we can consider a L4-5 decompression and posterior fusion. We will see the patient back on a as needed basis for any persistent, new, or worsening symptoms. The patient is very much in agreement with the treatment and/or diagnostic plan set forth and all questions were answered to the patient's satisfaction. Thanks once again. If we can be of further service to your patients with disorders of the spine, cervical, thoracic, or lumbar, please do not hesitate to contact Dr. Hernandez. 1. L4-5 stenosis and neuroforaminal stenosis 2. L4-5 spondylolisthesi s, grade 1 Plan Of Treatment Pending Test Test Name Order Date MRI : Lumbosacral Spine W/O Contrast - [id number] 11/15/2024 MRI : Thoracic Spine W/O Contrast - [id number] 6 08/23/2024 Insurance Providers Payer Name Payer Address Payer Phone Subscriber Number Group Number Insured Name Patient Relationship to Insured Coverage Start Date Coverage End Date Medicaid [employer] [place] [address] [place] [address] [id number] ANU YEUNG Self - patient is the insured Medical (General) History Medical History History ICD Code Abnormal Heart Rhythm Liver Disease Diabetes Kidney stones Sleep apnea Do you have a CPAP machine? Yes
--- OUTSIDE RECORDS SUMMARY | 2025-01-16 12:31 | XMS_ITS | Encounter Summary ---
Author Organization [facility] Address [address] [place] [address] Care Team Providers Care Stone Gang Sawyer Name Role Phone Arabella Le L GENERAL LEDGER BOOKKEEPER - CASE AIDE Primary Care Provider Reason for Visit * Reason Comments Medication Refill Encounter Details Date Type Department Care Team (Late Contact Info) Description 08/17/2016 Refill [facility] Primary Care of [place] [address] [place] [address] Ade Lloyd APRN - SACK SEWER MACHINE [address] [place] [address] Medication Refill Social History Tobacco Use Types [...] 01/27/2025 9:20 AM EDT Office Visit [facility] Neurology [address] [place] [address] Waylon Moy MD [address] [place] [address] Dr Alegria [address] [place] [address] 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
--- OUTSIDE RECORDS SUMMARY | 2025-01-16 12:31 | XMS_ITS | Encounter Summary ---
Author Organization [facility] Address [address] [place] [address] Care Team Providers Care Account Receivable Associate Name Role Phone Le Bell Preet ERRAND RUNNER - DEVELOPER PROVER UPHOLSTERING Primary Care Provider Encounter Details Date Type Department Care Team (Late Contact Info) Description 04/22/2016 FollowUp Telephone Encounter [facility] General Surgery [address] [place] [address] Dandy Fulton, RN Social History Tobacco Use [...] Upcoming Encounters Date Type Department Care Team ([facility] Contact Info) Description 01/27/2025 9:20 AM EDT Office Visit [facility] Neurology [address] [place] [address] Waylon Moy MD [address] [place] [address] Dr [address]legria [address] [place] [address] 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
--- OUTSIDE RECORDS SUMMARY | 2025-01-16 12:31 | XMS_ITS | Encounter Summary ---
Author Organization [facility] Address [address] [place] [address] Care Team Providers Care Jetting Machine Operator Name Role Phone Arabella Le L FORTUNE TELLER - BILLING CHECKER Primary Care Provider Reason for Visit * Reason Comments Medication Refill Encounter Details Date Type Department Care Team (Late Contact Info) Description 11/02/2016 Refill [facility] [place] [address] [place] [phone] Ade Lloyd, FORTUNE TELLER - SYSTEM AUDITOR [address] [place] [phone] Medication Refill Social History Tobacco Use Types [...] 9:20 AM EDT Office Visit [facility] Neurology [address] [place] [address] Waylon Moy MD [address] [place] [address] Dr [address]legria [address] [place] [address] 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
--- OUTSIDE RECORDS SUMMARY | 2025-01-16 12:31 | XMS_ITS | Encounter Summary ---
Author Organization [facility] Address [address] [place] [address] Care Team Providers Care Carpenter Helper Hardwood Flooring Name Role Phone Arabella Le L WAX PATTERN REPAIRER - CHANGEOVER OPERATOR Primary Care Provider Reason for Visit * Reason Comments Medication Refill Encounter Details Date Type Department Care Team (Late Contact Info) Description 11/10/2016 Refill [facility] [place] [address] [place] [address] Ade Lloyd, WAX PATTERN REPAIRER - FIREWALL ENGINEER [address] [place] [phone] Medication Refill Social History Tobacco Use Types [...] [facility] Neurology [address] [place] [address] Waylon Moy MD [address] [place] [address] Dr [address] [place] [address] Postherpetic polyneuropathy documented as of this encounter Visit Diagnoses Not on filedocumented in this encounter Additional Health Concerns Infection Onset Date Last Indicated Resolved Time C-diff Rule Out 04/14/2021 04/14/2021 documented as of this encounter Care Teams Carpenter Helper Hardwood Flooring Relationship Specialty Start Date End Date Le Bell APRN - CHANGEOVER OPERATOR [address] [place] [phone] PCP - General Certified Nurse Practitioner 08/04/24 documented as of this encounter
--- OUTSIDE RECORDS SUMMARY | 2025-01-16 12:31 | XMS_ITS | Clinical Summary ---
Author Organization [facility] Address [address] [facility] [place] [address] Care Team Providers Care Burnisher Name Role Phone Le Bell VP SALES Primary Care Provider Allergies Active Allergy Reactions Criticality Noted Date Comments Penicillins 04/21/2021 Pravastatin Hives 10/13/2010 Medications Aspirin Low Dose [address] tablet Take 81 mg by mouth daily. 1 Active Continuous Blood Gluc Watch Repair Technician ([employer] Prabhakar [employer]) DeviceIndications: Uncontrolled type 2 diabetes mellitus [...] Advance Directives For more information, please contact: [phone] (7:30 AM - 6PM Tammy/[facility], Monday-Monday) * Full Code (Latest Code Status on File) Date Activated Date Inactivated Comments 06/21/2022 5:19 PM Care Teams Burnisher Relationship Specialty Start Date End Date Le Bell CNP PCP - General Family Medicine 06/21/21
--- OUTSIDE RECORDS SUMMARY | 2025-01-16 12:31 | XMS_ITS | Encounter Summary ---
Author Organization [facility] Address [address] [place] [address] Care Team Providers Care Title Supervisor Name Role Phone Le Bell Preet BAIN - HAZARD WASTE HANDLER Primary Care Provider Encounter Details Date Type Department Care Team ([facility] Contact Info) Description 10/11/2012 PAT Telephone [facility] PRE AD[facility] [address] [place] [address] Amy [place], RN Social History Tobacco Use [...] Upcoming Encounters Date Type Department Care Team ([facility] Contact Info) Description 01/27/2025 9:20 AM EDT Office Visit [facility] Neurology [address] [place] [address] Waylon Moy MD [address] [facility] [address] [place] [address] Postherpetic polyneuropathy documented as of this encounter Visit Diagnoses Not on filedocumented in this encounter Additional Health Concerns Infection Onset Date Last Indicated Resolved Time C-diff Rule Out 04/14/2021 04/14/2021 documented as of this encounter Care Teams Title Supervisor Relationship Specialty Start Date End Date eL Bell, JOLENE - HAZARD WASTE HANDLER [address] [place] [address] PCP - General Certified Nurse Practitioner 08/04/24 documented as of this encounter
--- OUTSIDE RECORDS SUMMARY | 2025-01-16 12:31 | XMS_ITS | Encounter Summary ---
Author Organization [facility] Address [address] [place] [address] Care Team Providers Care Rn Advice Name Role Phone Arabella Ledima Oviedo APRN - ASSEMBLER FINAL Primary Care Provider Reason for Visit * Reason Comments Medication Refill Encounter Details Date Type Department Care Team (Late Contact Info) Description 01/11/2017 Refill [facility] [place] [address] [place] [address] Ade Lloyd, CELL BIOLOGIST - SUPPORT SERVICES COORDINATOR [address] [place] [phone] Medication Refill Social History Tobacco Use Types [...] [facility] Neurology [address] [place] [address] Waylon Moy MD [address] [place] [address] Dr [address] [place] [address] Postherpetic polyneuropathy documented as of this encounter Visit Diagnoses Not on filedocumented in this encounter Additional Health Concerns Infection Onset Date Last Indicated Resolved Time C-diff Rule Out 04/14/2021 04/14/2021 documented as of this encounter Care Teams Rn Advice Relationship Specialty Start Date End Date Le Bell APRN - ASSEMBLER FINAL [address] [place] [phone] PCP - General Certified Nurse Practitioner 08/04/24 documented as of this encounter
--- OUTSIDE RECORDS SUMMARY | 2025-01-16 12:31 | XMS_ITS | Clinical Summary ---
Author Organization [facility] Address [address] [place] [address] Care Team Providers Care Hogshead Opener Name Role Phone Unavailable Primary Care Provider [...]
--- OUTSIDE RECORDS SUMMARY | 2025-01-16 12:31 | XMS_ITS | Encounter Summary ---
Author Organization [facility] Address [address] [place] [address] Care Team Providers Care Signals Intelligence Analyst Name Role Phone Arabella Le L PLAYER DEVELOPMENT MANAGER - TRANSITION MGR Primary Care Provider Reason for Visit * Reason Comments Medication Refill Encounter Details Date Type Department Care Team (Late Contact Info) Description 09/14/2016 Refill [facility] Primary Care of [place] [address] [place] [address] Ade Lloyd APRN - BUTTON SEWING 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 [address] [place] [address] Medication Refill Social History Tobacco Use Types [...] Description 01/27/2025 9:20 AM EDT Office Visit [facility] Neurology [address] [place] [address] Waylon Moy MD [address] [place] [address] Dr [address] [place] [address] Postherpetic polyneuropathy documented as of this encounter Visit Diagnoses Not on filedocumented in this encounter Additional Health Concerns Infection Onset Date Last Indicated Resolved Time C-diff Rule Out 04/14/2021 04/14/2021 documented as of this encounter Care Teams Signals Intelligence Analyst Relationship Specialty Start Date End Date Le Bell APRN - TRANSITION MGR [address] [place] [phone] PCP - General Certified Nurse Practitioner 08/04/24 documented as of this encounter
--- OUTSIDE RECORDS SUMMARY | 2025-01-16 12:31 | XMS_ITS | Encounter Summary ---
Author Organization [facility] Address [address] [place] [address] Care Team Providers Care Special Inspector Name Role Phone Arabella Le L PAINTING CONTRACTOR - BUS WASHER Primary Care Provider Reason for Visit * Reason Comments Medication Refill Encounter Details Date Type Department Care Team (Late Contact Info) Description 09/06/2017 Refill [facility]IMARY [facility] [place] [address] [place] [address] Ade Lloyd, PAINTING CONTRACTOR - WARP HANGER [address] [place] [phone] Medication Refill Social History Tobacco Use Types [...] Description 01/27/2025 9:20 AM EDT Office Visit [facility] Neurology [address] [place] [address] Waylon Moy MD [address] [place] [address] Dr [address] [place] [address] Postherpetic polyneuropathy documented as of this encounter Visit Diagnoses Not on filedocumented in this encounter Additional Health Concerns Infection Onset Date Last Indicated Resolved Time C-diff Rule Out 04/14/2021 04/14/2021 documented as of this encounter Care Teams Special Inspector Relationship Specialty Start Date End Date Le Bell APRN - BUS WASHER [address] [place] [phone] PCP - General Certified Nurse Practitioner 08/04/24 documented as of this encounter
--- OUTSIDE RECORDS SUMMARY | 2025-01-16 12:31 | XMS_ITS | Encounter Summary ---
Author Organization [facility] Address [address] [place] [address] Care Team Providers Care Equipment Monitor Phototypesetting Name Role Phone Arabella Le L PASSENGER RATE CLERK - BUFFET SERVER Primary Care Provider Reason for Visit * Reason Comments Medication Refill Encounter Details Date Type Department Care Team (Late Contact Info) Description 07/27/2016 Refill [facility] Primary Care of [place] [address] [place] [address] dAe Lloyd APRN - AEROSPACE ASSEMBLER [address] [place] [address] Medication Refill Social History Tobacco Use Types [...] Office Visit [facility] Neurology [address] [place] [address] Waylon Moy MD [address] [place] [address] Dr [address] [place] [address] Postherpetic polyneuropathy documented as of this encounter Visit Diagnoses Diagnosis Left lateral epicondylitis Lateral epicondylitis of elbow documented in this encounter Additional Health Concerns Infection Onset Date Last Indicated Resolved Time C-diff Rule Out 04/14/2021 04/14/2021 documented as of this encounter Care Teams Equipment Monitor Phototypesetting Relationship Specialty Start Date End Date Le Bell, PASSENGER RATE CLERK - BUFFET SERVER [address] [place] [phone] PCP - General Certified Nurse Practitioner 08/04/24 documented as of this encounter
--- OUTSIDE RECORDS SUMMARY | 2025-01-16 12:31 | XMS_ITS | Clinical Summary ---
Author Organization [facility] Address [address] [place] [address] Care Team Providers Care Phlebotomy Technologist Name Role Phone Arabella Le L PULVERIZER MILL OPERATOR - COMPOSITION SIDING WORKER Primary Care Provider Allergies Active Allergy Reactions [...] - 12/08/2024 11:59 PM EDT Hospital Encounter [facility] MRI [address] [place] [address] Lumbar back pain; Spondylolisthesis of thoracic region Discharge Disposition: Home or Self Care 11/27/2024 Transcribe Orders [facility] [address] [place], [place] [id number] Juan Gerber PA Lumbar back pain (Primary Dx); Spondylolisthesis of thoracic region 10/22/2024 Abstract [facility] Mechanical Artist [address] [place] [address] Vidhya León 10/22/2024 Telephone [facility] Mechanical Artist [address] [place] [address] Raheem Rodriges DO 10/17/2024 9:34 AM EDT - 10/19/2024 11:59 PM EDT Hospital Encounter [facility] Non-Invasive Cardiology [address] [place] [address] Raheem Rodriges DO Tachycardia; Abnormal EKG; Heart murmur Discharge Disposition: Home or Self Care from [...] Description 01/27/2025 9:20 AM EDT Office Visit [facility] Neurology [address] [place], [place] [id number] Waylon Moy MD [address] [place] [address] Postherpetic polyneuropathy Health Maintenance Due Date Last [...] ( - 2023- season) 2024 Flu vaccine (#1) 02/14/2025 Lung Cancer Screening &/or Counseling 09/02/2025 09/02/2024 [...] HEMOGLOBIN A1C Routine 07/04/2022 9:04 AM EST AQUATIC INSTRUCTOR CYTOLOGY Routine 10/23/2018 10:00 AM EDT HUMAN [...] No acute or healing fracture. Juan MORELOS [facility] MRI ORDERABLES Final Result * (ABNORMAL) ECHO [...] Artery EDP 7 mmHg BS CV CPACS MO Max Velocity 1.3 m/s BS CV CPACS [...] BS CV CPACS LA/AO Root Ratio 1.50 [facility] CV CPACS AV Velocity Ratio 0.71 BS CV CPACS LVOT:AV VTI Index 0.81 [facility] CV CPACS MV:LVOT VTI Index 0.72 BS [...] heart rhythm. No contrast was given. Raheem Zahira DO CV ECHO ORDERABLES Final R esult * (ABNORMAL) Basic Metabolic Panel (09/09/2024 4:55 AM EST) Sodium 134(L) 135 - 144 mmol/L 09/09/2024 4:55 AM EST [facility] Potassium 4.2 3.7 - 5.3 mmol/L 09/09/2024 4:55 AM EST [facility] Chloride 95(L) 98 - 107 mmol/L 09/09/2024 4:55 AM EST [facility] CO2 26 20 - 31 mmol/L 09/09/2024 4:55 AM EST [facility] Anion Gap 13 9 - 17 mmol/L 09/09/2024 4:55 AM EST [facility] Glucose 215(H) 70 - 99 mg/dL 09/09/2024 4:55 AM EST [facility] BUN 11 6 - 20 mg/dL 09/09/2024 4:55 AM EST [facility] Creatinine 0.5 0.5 - 0.9 mg/dL 09/09/2024 4:55 AM EST [facility] Est, Glom Filt Rate >90 >60 mL/min/1.7 3m2 09/09/2024 4:55 AM EST [facility] Comment: These results are not intended [...] - 10.4 mg/dL 09/09/2024 4:55 AM EST [facility] Blood BLOOD SPECIMEN / Unknown 09/09/2024 4:55 AM EST 09/09/2024 5:08 AM EST Mallory Aleman MD CHEMISTRY ORDERABLES Final R esult [facility] [address] [place], [place] [address] [phone] * CT CHEST WO CONTRAST (09/02/2024 5:54 [...] 17 <21 mg/L 07/04/2022 9:04 AM EST [facility] Creatinine, Ur 61.0 28.0 - 217.0 mg/dL 07/04/2022 9:04 AM EST [facility] Microalb/Fire Safety Inspector. Ratio 28(H) <25 mcg/mg creat 07/04/2022 9:04 AM EST [facility] 07/04/2022 9:04 AM EST 07/04/2022 9:05 AM EST Omar Shea MD URINE ORDERABLES Final Result [facility] [address] [place] [address], [facility] [phone] [facility] [address] [place] [address], [facility] [phone] * (ABNORMAL) Hemoglobin A1C (07/04/2022 9:04 AM EST) Hemoglobin A1C 13.6(H) 4.0 - 6.0 % 07/04/2022 9:04 AM EST [facility] Estimated Avg Glucose 344 mg/dL 07/04/2022 9:04 AM EST [facility] Comment: The ADA and AACC recommend providing the estimated average glucose result to permit better patient understanding of their HBA1c result. 07/04/2022 9:04 AM EST 07/04/2022 9:05 AM EST Omar Shea MD CHEMISTRY ORDERABLES Final Res ult Performing Organization Address [facility] Co de Phone Number [email or web address] [address] [place] [address], [facility] [phone] [facility] [address] [place] [address], [facility] [phone] * (ABNORMAL) Lipid Panel (07/04/2022 9:04 AM EST) Cholesterol 338(H) <200 mg/dL 07/04/2022 9:04 AM EST [facility] Comment: Cholesterol Guidelines: <200 Desirable 200-240 Borderline >240 Undesirable HDL 37(L) >40 mg/dL 07/04/2022 9:04 AM EST [facility] Comment: HDL Guidelines: <40 Undesirable 40-59 Borderline >59 Desirable LDL Cholesterol 235(H) 0 - 130 mg/dL 07/04/2022 9:04 AM EST [facility] Comment: LDL Guidelines: <100 Desirable 100-129 Near to/above Desirable 130-159 Borderline >159 Undesirable Direct (measured) LDL and calculated LDL are not interchangeable tests. Chol/HDL Ratio 9.1(H) <5 07/04/2022 9:04 AM EST [facility] Comment: Triglycerides 330(H) <150 mg/dL 07/04/2022 9:04 AM EST [facility] Comment: Triglyceride Guidelines: <150 Desirable 150-199 Borderline 200-499 High >499 Very high Based on AHA Guidelines for fasting triglyceride, April 2012. 07/04/2022 9:04 AM EST 07/04/2022 9:05 AM EST Omar Shea MD CHEMISTRY ORDERABLES Final Res ult Performing Organization Address City/[facility]/ZIP Co de Phone Number [facility] [address] [place] [address], [facility] [phone] [facility] [address] [place] [address] * AQUATIC INSTRUCTOR Cytology (10/23/2018 10:00 AM EDT) Pathologist [facility] Cytology Report [id number] [facility] CONSULTING PATHOLOGISTS [facility] ANATOMIC PATHOLOGY [address] [place] [phone] GYNECOLOGIC CYTOLOGY REPORT Patient Name: CASANDRA YEUNG MR#: [id number] Specimen #[id number] Source: 1: Cervical material, (ThinPrep vial, Imaging-assisted review) Clinical History LEEP: 2016 Z12.4 Encounter for screening for malignant neoplasm of cervix High Risk HPV DNA testing is requested if the diagnosis is ASC-US LMP: ablation INTERPRETATION Cervical material, (ThinPrep vial, Imaging-assisted review): Specimen Adequacy: Satisfactory for evaluation. -Endocervical/tra nsformation zone component is absent. Descriptive Diagnosis: Negative for intraepithelial lesion or malignancy. Payroll Auditor: JENI Reynolds JD(ASCP) Electronically Signed Out trever/11/06/2018 [facility] 10/23/2018 10:0 0 AM EDT 10/25/2018 10:00 AM EDT Grady Barrera MD PATHOLOGY/CYTOLOGY ORDERABLES Final Result [facility] [address] [place], [place] [address] [phone] [address], [facility] [phone] * (ABNORMAL) Human papillomavirus (HPV) DNA probe thin prep high risk (02/25/2016 8:37 AM EDT) Pathologist [facility] HPV SOURCE CERVICAL MATERIAL 03/16/2016 8:37 AM EDT [facility] HPV Sample .THIN PREP 03/16/2016 8:37 AM EDT [facility] HPV, Genotype 16 Not Detected NOTDET 2015 2:09 PM EDT [facility] HPV, Genotype 18 Not Detected NOTDET 2015 2:09 PM EDT [facility] HPV, High Risk Other DETECTED(A) NOTDET 03/16/2016 2:09 PM EDT [facility] HPV, Interpretation 03/16/2016 2:09 PM EDT [facility] Comment: This test amplifies and [...] or for other forensic purposes. Performed at [address] [address] 02/25/2016 8:37 AM EDT 03/16/2016 8:37 AM EDT us Grady Barrera MD HEMATOLOGY ORDERABLES Final R esult [facility] [address] [place] [place] [address], [facility] [phone] [facility] * Hepatitis C antibody (06/23/2012 9:33 AM EST) Pathologist [facility] Hepatitis C Ab NONREACTIVE NR [facility] Comment: The hepatitis C procedure [...] ordering HCV RNA by PCR. Performed at [address] [address] 06/23/2012 9:33 AM EST 06/23/2012 9:34 AM EST Mukund Olivares MD IMMUNOLOGY ORDERABLES Final Resu lt Performing Organization Address [facility] de Phone Number [facility] [address] [place], [place] [address] [phone] [facility] * HIV-1 and HIV-2 antibodies (06/23/2012 9:33 AM EST) [facility] HIV 1/2 Antibody NONREACTIVE NR [facility] Comment: Interpretation: The presence of antibody to HIV and its association with the potential infectivity, transmission or diagnosis of AIDS has not been established. Furthermore, a 'Non-Reactive' test result does not exclude the possibility of exposure to or infection with HIV. If the above test result is 'Reactive', the Laboratory will order the confirmatory test. Performed at [address] [address] 06/23/2012 9:33 AM EST 06/23/2012 9:34 AM EST Mukund Olivares MD IMMUNOLOGY ORDERABLES Final Resu lt Performing Organization Address [facility] Co de Phone Number [facility] [address] [place] [address], [facility] [phone] [facility] from Last 3 Months or [...] Dont Child Primary Decision Maker Care Teams Phlebotomy Technologist Relationship Specialty Start Date End Date Le Bell APRN - [place] [address] [place] [phone] PCP - General Certified Nurse Practitioner 08/04/24
--- OUTSIDE RECORDS SUMMARY | 2025-01-16 12:31 | XMS_ITS | Encounter Summary ---
Author Organization [facility] Address [address] [place] [address] Care Team Providers Care [employer] Dean Name Role Phone Unavailable Primary Care Provider Unavailabl e Reason for Visit * Reason Comments Med Refill Encounter Details Date Type Department Care Team (Latest Contact Info) Description 02/25/2024 Refill [facility] Shaikh Gil MD [address] [place] [phone] Social History Tobacco Use Types Packs/Day Years [...]
--- NOTE | 2025-01-16 12:58 | PM.CN ---
Consult Note: HPI Data of Consult Requesting Physician: Jackie Swanson NP Primary Care Provider: Non-Staff Physician, Consult Narrative Reason for consult: upper back and low back pain Narrative: Casandra Gonzalez a 54 year old female presents for chronic thoracic pain post shingles 2023 and low back pain. pt has had moderate to severe low back pain >6 months unresponsive to > 6 weeks of PT and chiropractor, heat, ice, tylenol, nsaids. pain today 6/10 increasing to 10/10 burning/aching. Pt was evaluated by Dr Mir who recommends lumbar fusion but pt is not interested in surgical intervention at this time, would like to discuss interventional therapy. recently completed lumbar xray with facet changes noted as well as grade 1 listhesis at L5-S1. recently underwent left L4-5 L5-S1 mbb #1 with significant pain relief, preop pain up to 10/10 post op pain 1-2/10. pt elected not to proceed with bilateral MBBs. In regards to post herpetic neuralgia pt continues to endorse significant multidermatomal left thoracic and chest wall pain unresponsive to topical lidocaine, aspercreme, gabapentin, and not interested in duloxetine or other oral medications due to potential side effects. cc:: CC: Jackie Swanson NP Review of Systems ROS Musculoskeletal Reports: back pain PFSH PFSH Medical History Diabetes mellitus �E11.9 - Type 2 diabetes mellitus without complications (ICD-10) Social History Smoking status: Never smoker Meds Home Medications and Allergies Home Medications �Medication �Instructions �Recorded �Confirmed �Type insulin glargine 100 unit/mL 50 unit subcut BID 12/25/24 01/13/25 History subcutaneous solution (Lantus U-100 Insulin) insulin lispro 100 unit/mL 1 sliding scale dose subcut 12/25/24 01/13/25 History subcutaneous cartridge USEASDIRECTD Allergies Allergy/AdvReac Type Severity Reaction Status Date / Time [id number] Reductase AdvReac Severe Hives Verified 01/13/25 09:18 Inhibitor Exam Back & Pelvis Thoracic spine/upper back: ROM limited, pain with ROM, thoracic spinal tenderness and paraspinal muscle tenderness Lumbar spine/lower back: pain with ROM, lumbar spinal tenderness and straight leg raise negative bilaterally Sacroiliac joints: SI joints normal Other: pain following left T5-9 dermatomal pattern post shingles positive facet loading left L4-5 L5-S1 strength 5/5 sensation intact BLE Assessment and Plan Assessment and Plan (1) Lumbar spondylosis: Assessment and Plan: The patient has had over 3 months of moderate to severe low back pain with functional impairment and inadequate response to conservative care including NSAIDS (unless there are contraindication such as concurrent blood thinners), multiple oral or topical pain medications, and home exercise program/physical therapy.� Patient has completed >6 weeks of guided home exercise program and/or formal physical therapy program without relief of their symptoms.� We discussed the risks and benefits of the procedure with the patient, and we are NOT planning on using sedation as outlined in the guidelines from Medicare unless there is a documented reason that sedation would be strongly recommended.�� �The procedure will be completed with fluoroscopic guidance.� (2) Post herpetic neuralgia: (3) Intercostal neuralgia: (4) Spondylolisthesis, lumbar region: Plan proceed with left L4-5 L5-S1 facet MBB #2 in consideration of RFA trial qutenza topical treatment x4 patches for post herpetic neuralgia unresponsive to topical lidocaine, gabapentin, and not interested in additional oral medications due to potential side effects. emla cream discussed, to be applied 1 hr prior to treatment continue hep as tolerated. f/u after MBB #2
== END 2025-01-16 12:29 | disposition home or self-care (01) ==
LOC: PM 12:28
PROVIDERS: Visit Provider Nurse Practitioner
DX: M47.816 Spondylosis without myelopathy or radiculopathy, lumbar region (principal); B02.29 Other postherpetic nervous system involvement; G58.0 Intercostal neuropathy; M43.16 Spondylolisthesis, lumbar region
CPT/HCPCS: G0463

== ENCOUNTER 2025-02-17 07:46 | Day surgery (SDC) | payer OTHER, SELFPAY ==
[2025-02-17 08:10] VITALS: BP 103/68; PULSE 107; TEMP 36.3; O2SAT 97
[2025-02-17 09:08] VITALS: BP 146/72; BP 150/68; PULSE 101; O2SAT 97; O2SAT 99
[2025-02-17] MEDS: LIDOCAINE HCL 2% 400 MG/20 ML MDV INJ (09:10)
[2025-02-17] MEDS: BUPIVACAINE HCL 0.25% PF 25 MG/10 ML VIAL 4 ML INJ (09:10)
--- NOTE | 2025-02-17 09:11 | W.PM.PROCNOT ---
Date of procedure: 02/17/25 Pre-op diagnosis: Pain due to lumbar spondylosis without myelopathy Post-op diagnosis: same as pre-op Procedure: Procedure: Left L4-5, L5-S1 medial branch block Medications: Bupivacaine 0.25% 3cc The patient was seen and examined in the preoperative holding area.? An informed consent was obtained and placed on the chart.? The patient was brought to the medical procedure unit and placed in the prone position.? A timeout was completed verifying correct patient, procedure site, positioning, plan, and special equipment.? Using aseptic technique, the needle was placed at left L4. Under direct fluoroscopic visualization a Quincke-tipped spinal needle was advanced to the junction of the superior articulating process with the transverse process at the designated medial branch segment.? Preceded by negative aspiration, the above-mentioned injectate was placed in 1 mL aliquots.? The procedure was completed at left L5, S1.? The needle was removed and insertion site was covered.? The patient was taken to the postprocedural recovery area and monitored for an appropriate length of time before found suitable for discharge in the company of a responsible adult. Anesthesia: Local Surgeon: Ivana Velasquez Pathology: none sent Condition: stable Disposition: no change
== END 2025-02-17 09:17 | disposition home or self-care (01) ==
LOC: SURGOUT 07:46
PROVIDERS: Visit Provider Anesthesiology
DX: M47.816 Spondylosis without myelopathy or radiculopathy, lumbar region (principal); M54.50 Low back pain, unspecified; E11.8 Type 2 diabetes mellitus with unspecified complications; Z79.85 Long-term (current) use of injectable non-insulin antidiabetic drugs
CPT/HCPCS: 36415; 64493; 64494; 82948; J0665

== ENCOUNTER 2025-02-19 10:41 | Outpatient (OUT) | payer OTHER, SELFPAY ==
--- NOTE | 2025-02-19 11:12 | PM.CN ---
Consult Note: HPI Data of Consult Patient: known to practice within the last 3 years Requesting Physician: Jackie Swanson NP Primary Care Provider: Non-Staff Physician, Consult Narrative Reason for consult: upper back and low back pain Narrative: Casandra Gonzalez a 55 year old female presents for chronic thoracic pain post shingles 2023 and low back pain. pt has had moderate to severe low back pain >6 months unresponsive to > 6 weeks of PT and chiropractor, heat, ice, tylenol, nsaids. pain today 6/10 increasing to 10/10 burning/aching. Pt was evaluated by Dr Mir who recommends lumbar fusion but pt is not interested in surgical intervention at this time, would like to discuss interventional therapy. recently completed lumbar xray with facet changes noted as well as grade 1 listhesis at L5-S1. recently underwent left L4-5 L5-S1 mbb #1 and #2 with significant pain relief, preop pain up to 10/10 post op pain 1-2/10. In regards to post herpetic neuralgia pt continues to endorse significant multidermatomal left thoracic and chest wall pain unresponsive to topical lidocaine, aspercreme, gabapentin, and not interested in duloxetine or other oral medications due to potential side effects. cc:: CC: Jackie Swanson NP Review of Systems ROS Musculoskeletal Reports: back pain PFSH PFSH Medical History Diabetes mellitus ?E11.9 - Type 2 diabetes mellitus without complications (ICD-10) Social History Smoking status: Never smoker Meds Home Medications and Allergies Home Medications ?Medication ?Instructions ?Recorded ?Confirmed ?Type insulin glargine 100 unit/mL 50 unit subcut BID 12/25/24 02/17/25 History subcutaneous solution (Lantus U-100 Insulin) insulin lispro 100 unit/mL 1 sliding scale dose subcut 12/25/24 02/17/25 History subcutaneous cartridge USEASDIRECTD Allergies Allergy/AdvReac Type Severity Reaction Status Date / Time Ozpmhor-HEJ-GwW Reductase AdvReac Severe Hives Verified 01/13/25 09:18 Inhibitor Exam Constitutional Documenting provider has reviewed patient's vital signs: yes Common normals: no apparent distress, oriented x3, healthy appearing, alert and well nourished General appearance: cooperative HENMT Common normals: normocephalic, hearing grossly normal bilaterally and moist oral mucous membranes Head and scalp: normocephalic Eye Common normals: PERRL Pupil: PERRL Neck & C-Spine Common normals: full ROM General: normal visual inspection Chest Common normals: inspection of chest normal Respiratory Common normals: normal respiratory effort, no retractions and no use of accessory muscles Back & Pelvis Thoracic spine/upper back: ROM limited, pain with ROM, thoracic spinal tenderness and paraspinal muscle tenderness Lumbar spine/lower back: pain with ROM, lumbar spinal tenderness and straight leg raise negative bilaterally Other: pain following left T5-9 dermatomal pattern post shingles without rash at this time positive facet loading left L4-5 L5-S1 strength 5/5 sensation intact BLE Neuro Common normals: oriented x3 Sensorium/orientation: alert Psych Common normals: mental status grossly normal, thought process normal, cooperative, affect normal, speech normal and activity/motor behavior normal Speech: normal speech Thought process: normal thought process Results Additional Findings Additional findings: If on a controlled substance or opioids, I have checked an [place] report on this patient and there are no aberrancies noted in the prescribing history.??If on a controlled substance or opioid a drug screen was completed and reviewed within the last year, and if there has not been a drug screen completed we ordered one today to monitor higher risk, state monitored pain medication use. As part of providing excellent, safe, comprehensive care, the following was completed at our patient's visit: 1. A medication reconciliation and review to ensure accurate knowledge of current/active medications, including asking our patients to inform us about any wyqi-ibf-uvekhtn medications or herbal remedies/nutritional supplements/alternative remedies. 2. A review to specifically ensure our patients have had annual screening for screening for depression, screening for tobacco use, and screening for unhealthy alcohol use. For concerning screenings had a discussion with the patient, provided patient education, and recommended follow-up with primary care provider when appropriate. If patient noted with a risk of falling, they received education on strength, gait, and balance training to prevent future risk of falling. Portions of this note may have been carried over from the previous visit and updated as appropriate. Please note this office utilizes paper charting in addition to the electronic medical record. A list of current medications, vitals, and PMH is available there as the clinical staff outside of myself do not have access to [employer] charting during the clinic day operations. As part of providing quality comprehensive care the current medications, vitals, and PMH were reviewed in the paper chart. Assessment and Plan Assessment and Plan (1) Lumbar spondylosis: Assessment and Plan: The patient has had over 3 months of moderate to severe low back pain with functional impairment and inadequate response to conservative care including NSAIDS (unless there are contraindication such as concurrent blood thinners), multiple oral or topical pain medications, and home exercise program/physical therapy.? Patient has completed >6 weeks of guided home exercise program and/or formal physical therapy program without relief of their symptoms.? We discussed the risks and benefits of the procedure with the patient, and we are NOT planning on using sedation as outlined in the guidelines from Medicare unless there is a documented reason that sedation would be strongly recommended.??The procedure will be completed with fluoroscopic guidance.? (2) Post herpetic neuralgia: (3) Spondylolisthesis, lumbar region: Plan proceed with left L4-5 L5-S1 facet RFA for facet mediated back pain with 10mg po valium 30-60minutes prior to RFA again we recommend qutenza topical treatment x4 patches for post herpetic neuralgia unresponsive to topical lidocaine, gabapentin, and not interested in additional oral medications due to potential side effects. emla cream discussed, to be applied 1 hr prior to treatment. patients insurance previously denied, i would like to resubmit at this time and will appeal if appropriate. continue hep as tolerated. f/u 1 month after RFA complete, as discussed with pt the goal is at least 50% improvement in face mediated low back pain can take up to 12 weeks from procedure
== END 2025-02-19 10:42 | disposition home or self-care (01) ==
LOC: PM 10:43
PROVIDERS: Visit Provider Nurse Practitioner
DX: M47.816 Spondylosis without myelopathy or radiculopathy, lumbar region (principal); B02.29 Other postherpetic nervous system involvement; M43.16 Spondylolisthesis, lumbar region
CPT/HCPCS: G0463

== ENCOUNTER 2025-03-10 09:45 | Day surgery (SDC) | payer OTHER, SELFPAY ==
--- OUTSIDE RECORDS SUMMARY | 2016-07-06 14:44 | XMS_ITS | Encounter Summary ---
Author Organization [facility] Address [address] [facility], [address] [place] [address] Care Team Providers Care Business Intelligence Manager Name Role Phone Ade Lloyd JOLENE - BIOLOGY PROFESSOR Primary Care Provider Reason for Referral * Imaging (Routine) - Closed Specialty Diagnoses / Procedures Referred By James martinez Referred To Contact Radiology Diagnoses Abnormal CT scan Calcification of ovary Procedures MRI Pelvis W WO Contrast MRI Abdomen Pelvis W WO Contrast Grady Barrera MD Phone: tel: fax: Referral ID Status Reason Start Date Expiration Date Visits Re quested Visits Authorized [id number] Closed 06/27/2016 06/27/2017 1 1 Encounter Details Date Type Department Care Team (Latest Contact Info) Description 07/06/2016 1:44 PM EST Hospital Encounter [facility] MRI [address] [place] [address] Grady Barrera MD 27 [facility] [address] [place] [address] scan; Calcification of ovary Social History Tobacco Use Types Packs/Day Years Used Date Smoking Tobacco: Former Cigarettes 1.5 30 0 07/25/1987 - 07/25/2017 Smokeless Tobacco: Never Alcohol Use Standard Drinks/Week Comments Never 0 (1 standard drink = 0.6 oz pur e alcohol) AUDIT-C Answer Date Recorded Q1: How often do you have a drink containing alcohol? Never 09/29/2024 Q2: How many drinks containi ng alcohol do you have on a typical day when you are drinking? Patient does not drink 5 Q3: How often do you have si x or more drinks on one occasion? Never 09/29/2024 PHQ-2 Answer Date Recorded PHQ-2 Score 2 10/17/2018 AUDIT-C Answer Date Recorded Q1: How often do you have a drink containing alcohol? Never 02/26/2025 Q2: How many drinks containi ng alcohol do you have on a typical day when you are drinking? Patient does not drink 5 Q3: How often do you have si x or more drinks on one occasion? Never 02/26/2025 Interpersonal Safety Domain Source: IP Abuse Scr [...] as of this encounter Plan of Treatment Not on file documented as of this encounter Procedures Procedure [...] - 20 mg/dL 07/06/2016 2:40 PM EST [facility] Creatinine 0.55 0.50 - 0.90 mg/dL [...] Kidney failure: <15 mL/min/1.73sq m Performed at [facility] [address] [place] [address] ([phone] GFR Staging NOT REPORTED [facility] 07/06/2016 2:20 PM EST 07/06/2016 2:21 PM EST us Grady Barrera MD CHEMISTRY ORDERABLES Final Re sult [facility] [address] [place] [address], [facility] [phone] [facility] documented in this encounter Visit [...] documented as of this encounter Care Teams Business Intelligence Manager Relationship Specialty Start Date End Date Ade Lloyd, SNACK STEWARDESS [place] [address] PCP - General Certified Nurse Practitioner 08/01/14 02/10/20 documented as of this encounter
--- OUTSIDE RECORDS SUMMARY | 2025-02-26 12:57 | XMS_ITS | Encounter Summary ---
Author Organization [facility] Address 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 States its been going on since beginning of January and not getting any better. Encounter Details Date Type Department Care Team (Late st Contact Info) Description 02/26/2025 12:57 PM EDT - 02/26/2025 2:38 PM EDT Emergency [facility] Emergency Department [address] [place] [address] [place] [address] [place] [address] Dehydration (Primary Dx); Nausea and vomiting, unspecified vomiting type Discharge Disposition: Home or Self Care Social History Tobacco Use Types Packs/Day Years [...] Sign Reading Time Taken Comments Blood Pressure 90/63 02/26/2025 2:30 PM EDT Pulse 105 02/26/2025 1:01 PM EDT Temperature 36.6 C (97.8 F) 02/26/2025 1:01 PM EDT Respiratory Rate 18 02/26/2025 1:01 PM EDT Oxygen Saturation 93% 02/26/2025 1:15 PM EDT Inhaled Oxygen Concentration - - Weight 73 kg (161 lb) 02/26/2025 1:01 PM EDT Height 167.6 cm (5' 6 ) 02/26/2025 1:01 PM EDT Body Mass Index 25.99 02/26/2025 1:01 PM EDT documented in this encounter Functional Status documented as of this encounter Discharge Instructions * Attachments The following attachments cannot be sent through Care Everywhere. * Nausea and Vomiting (Maori) documented in this encounter Medications at Time of Discharge ondansetron (ZOFRAN-ODT) 4 MG disintegrating tablet Take 1 tablet by mouth 3 times daily as needed for Nausea or Vomiting 21 tablet 02/26/2025 INSULIN LISPRO SC Inject into the skin 3 times daily (with meals) Sliding scale insulin glargine (LANTUS SOLOSTAR) 100 UNIT/ML injection pen Inject 40 Units into the skin 2 times daily 10 pen 3 04/16/2021 metoprolol succinate (TOPROL XL) 25 MG extended release tablet Take 1 tablet by mouth daily 30 tablet 11 10/01/2024 cyclobenzaprine (FLEXERIL) 10 MG tablet Take 1 tablet by mouth 3 times daily as needed for Muscle spasms 10 tablet 09/29/2024 documented as of this encounter Plan of Treatment Not on file documented as of this encounter Procedures Procedure Name Priority Date/Time Associated Diagnosis Comments EKG 12-LEAD STAT 02/26/2025 1:20 PM EDT CBC WITH AUTO DIFFERENTIAL STAT 02/26/2025 1:10 PM EDT TROPONIN Timed 02/26/2025 1:10 PM EDT TSH STAT 02/26/2025 1:10 PM EDT T4, FREE STAT 02/26/2025 1:10 PM EDT MAGNESIUM STAT 02/26/2025 1:10 PM EDT LIPASE STAT 02/26/2025 1:10 PM EDT COMPREHENSIVE METABOLIC PANEL STAT 02/26/2025 1:10 PM EDT documented in this encounter Results * EKG 12 Lead (02/26/2025 1:20 PM EDT) Ventricular Rate 95 BPM [facility] Atrial Rate 95 BPM [facility] P-R Interval 156 ms [facility] QRS Duration 70 ms [facility] Q-T Interval 356 ms [facility] QTc Calculation (Bazett) 447 ms [facility] P [place] 74 degrees [facility] R [place] 77 degrees [facility] T [place] 80 degrees [facility] 02/26/2025 1:20 PM EDT Narrative [facility] - 02/27/2025 8:46 AM EDT Normal sinus rhythm Cannot rule out Anterior infarct (cited on or before 13-Apr-2021) Abnormal ECG Procedure Note Roverto Barbour MD - 02/27/2025 Normal sinus rhythm Cannot rule out Anterior infarct (cited on or before 13-Apr-2021) Abnormal ECG Eugenio Lan MD ECG ORDERABLES Final Result [facility] * (ABNORMAL) Troponin (02/26/2025 1:10 PM EDT) [facility] Troponin, High Sensitivity 18(H) 0 - 14 ng/L 02/26/2025 1:10 PM EDT [facility] Comment:High Sensitivity Tro ponin values cannot be compared with other Troponin methodologies. Blood BLOOD SPECIMEN / Unknown 02/26/2025 1:10 PM EDT 02/26/2025 1:11 PM EDT Result [facility] Eugenio Lan MD CHEMISTRY ORDERABLES Final Res ult Performing Organization Address [facility]/ZIP Co de Phone Number [facility] [address] [phone] * Magnesium (02/26/2025 1:10 PM EDT) [facility] Magnesium 2.1 1.6 - 2.6 mg/dL 02/26/2025 1:10 PM EDT [facility] BLOOD SPECIMEN / Unknown 02/26/2025 1:10 PM EDT 02/26/2025 1:11 PM EDT Result [facility] Eugenio Lan MD CHEMISTRY ORDERABLES Final Res ult Performing Organization Address [facility]/ZIP Co de Phone Number [facility] [address] [facility]. [address] [phone] * T4, Free (02/26/2025 1:10 PM EDT) [facility] T4 Free 1.7 0.9 - 1.7 ng/dL 02/26/2025 1:10 PM EDT [facility] Blood 02/26/2025 1:10 PM EDT 02/26/2025 1:11 PM EDT Eugenio Lan MD CHEMISTRY ORDERABLES Final Res ult Performing Organization Address [facility]/ZIP Co de Phone Number [facility] [address] [place] [address], [facility] [phone] [address] [place] [address], [facility] [phone] * TSH (02/26/2025 1:10 PM EDT) TSH 0.75 0.27 - 4.20 uIU/mL 02/26/2025 1:10 PM EDT [facility] Blood BLOOD SPECIMEN / Unknown 02/26/2025 1:10 PM EDT 02/26/2025 1:11 PM EDT Eugenio Lan MD CHEMISTRY ORDERABLES Final Res ult Performing Organization Address [facility]/ZIP Co de Phone Number [facility] [address] [place] [address], [facility] [phone] * (ABNORMAL) Lipase (02/26/2025 1:10 PM EDT) Lipase 96(H) 13 - 60 U/L 02/26/2025 1:10 PM EDT [facility] BLOOD SPECIMEN / Unknown 02/26/2025 1:10 PM EDT 02/26/2025 1:11 PM EDT Eugenio Lan MD CHEMISTRY ORDERABLES Final Res ult Performing Organization Address City/[facility]/ZIP Co de Phone Number [facility] [address] [place] [address], [facility] [phone] * (ABNORMAL) Comprehensive Metabolic Panel (02/26/2025 1:10 PM EDT) Sodium 133(L) 135 - 144 mmol/L 02/26/2025 1:10 PM EDT [facility] Potassium 4.1 3.7 - 5.3 mmol/L 02/26/2025 1:10 PM EDT [facility] Chloride 93(L) 98 - 107 mmol/L 02/26/2025 1:10 PM EDT [facility] CO2 24 20 - 31 mmol/L 02/26/2025 1:10 PM EDT [facility] Anion Gap 16 9 - 17 mmol/L 02/26/2025 1:10 PM EDT [facility] Glucose 293(H) 70 - 99 mg/dL 02/26/2025 1:10 PM EDT [facility] BUN 15 6 - 20 mg/dL 02/26/2025 1:10 PM T [facility] Creatinine 0.6 0.5 - 0.9 mg/dL 02/26/2025 1:10 PM EDT [facility] Est, Glom Filt Rate >90 >60 mL/min/1.7 3m2 02/26/2025 1:10 PM EDT [facility] Comment: These results are not intended [...] therapy that affects renal tubular secretion. Calcium 10.0 8.6 - 10.4 mg/dL 02/26/2025 1:10 PM EDT [facility] Total Protein 7.9 6.4 - 8.3 g/dL 02/26/2025 1:10 PM EDT [facility] Albumin 4.6 3.5 - 5.2 g/dL 02/26/2025 1:10 PM EDT [facility] Albumin/Globulin Ratio 1.4 1.0 - 2.5 02/26/2025 1:10 PM EDT [facility] Total Bilirubin 0.8 0.3 - 1.2 mg/dL 02/26/2025 1:10 PM EDT [facility] Alkaline Phosphatase 115(H) 35 - 104 U/L 02/26/2025 1:10 PM EDT [facility] ALT 15 5 - 33 U/L 02/26/2025 1:10 PM EDT [facility] AST 17 <32 U/L 02/26/2025 1:10 PM EDT [facility] BLOOD SPECIMEN / Unknown 02/26/2025 1:10 PM EDT 02/26/2025 1:11 PM EDT us Eugenio Lan MD CHEMISTRY ORDERABLES Final Res ult [facility] [address] [place] [id number], [facility] [phone] * (ABNORMAL) CBC with Auto Differential (02/26/2025 1:10 PM EDT) WBC 7.8 3.5 - 11.0 k/uL 02/26/2025 1:10 PM EDT [facility] RBC 5.76(H) 4.00 - 5.20 m/uL 02/26/2025 1:10 PM EDT [facility] Hemoglobin 16.3(H) 12.0 - 16.0 g/dL 02/26/2025 1:10 PM EDT [facility] Hematocrit 47.7(H) 36.0 - 46.0 % 02/26/2025 1:10 PM EDT [facility] MCV 82.8 80.0 - 100.0 fL 02/26/2025 1:10 PM EDT [facility] MCH 28.3 26.0 - 34.0 pg 02/26/2025 1:10 PM EDT [facility] MCHC 34.2 31.0 - 37.0 g/dL 02/26/2025 1:10 PM EDT [facility] RDW 12.4 12.1 - 15.2 % 02/26/2025 1:10 PM EDT [facility] Platelets 382 140 - 450 k/uL 02/26/2025 1:10 PM EDT [facility] MPV 9.7 6.0 - 12.0 fL 02/26/2025 1:10 PM EDT [facility] Neutrophils % 60 47 - 75 % 02/26/2025 1:10 PM EDT [facility] Lymphocytes % 30 15 - 40 % 02/26/2025 1:10 PM EDT [facility] Monocytes % 8 4 - 8 % 02/26/2025 1:10 PM EDT [facility] Eosinophils % 1 0 - 5 % 02/26/2025 1:10 PM EDT [facility] Basophils % 1 0 - 2 % 02/26/2025 1:10 PM EDT [facility] Immature Granulocytes % 0 0 - 5 % 02/26/2025 1:10 PM EDT [facility] Neutrophils Absolute 4.72 2.5 - 7.0 k/uL 02/26/2025 1:10 PM EDT [facility] Lymphocytes Absolute 2.35 1.00 - 4.80 k/uL 02/26/2025 1:10 PM EDT [facility] Monocytes Absolute 0.65 0.00 - 1.00 k/uL 02/26/2025 1:10 PM EDT [facility] Eosinophils Absolute 0.06 0.00 - 0.40 k/uL 02/26/2025 1:10 PM EDT [facility] Basophils Absolute 0.05 0.00 - 0.20 k/uL 02/26/2025 1:10 PM EDT [facility] Immature Granulocytes Absolute 0.01 0.00 - 0.30 k/uL 02/26/2025 1:10 PM EDT [facility] BLOOD SPECIMEN / Unknown 02/26/2025 1:10 PM EDT 02/26/2025 1:11 PM EDT us Eugenio Lan MD HEMATOLOGY ORDERABLES Final Re sult [facility] [address] [place] [address] [[email or web address]] [phone] documented in this encounter Visit Diagnoses Diagnosis Dehydration- Primary Nausea and vomiting, unspecified vomiting type documented in this encounter Administered Medications Inactive Administered Medications - up to 3 most recent administrations Medication Order MAR Action Action Date Dose Rate Site sodium chloride 0.9 % bolus 1,000 mL 1,000 mL (13.7 mL/kg), IntraVENous, at 2,000 mL/hr, Administer over 0.5 Hours, ONCE, On Mon02/26/25 at 1315, For 1 dose New Bag 02/26/2025 1:08 PM EDT 1,000 mLs 2000 mL/hr documented in this encounter Active and Recently Administered Medications Times are shown in EDT. Scheduled Medication Order 02/24/2025 02/25/2025 02/26/2025 ondansetron (ZOFRAN) injection 4 mg 4 mg, IntraVENous, ONCE, 1 dose, On Mon02/26/25 at 1315 1311 (Not Given - Pr ovider: Maria Guadalupe Wolfe RN - Reason: Patient/family refused) sodium chloride 0.9 % bolus 1,000 mL (COMPLETED) 1,000 mL (13.7 mL/kg), IntraVENous, at 2,000 mL/hr, Administer over 0.5 Hours, ONCE, On Mon02/26/25 at 1315, For 1 dose 1308 (New Bag - Prov ider: Maria Guadalupe Wolfe RN)1330 (Stopped - Provider: Maria Guadalupe Wolfe RN) documented in this encounter Additional Health Concerns Infection Onset Date Last Indicated Resolved Time C-diff Rule Out 04/14/2021 04/14/2021 documented as of this encounter Care Teams Rigging And Controls Aircraft Mechanic Relationship Specialty Start Date End Date Le Bell APRN - SURVEY TECHNICIAN [address] [place] [address] PCP - General Certified Nurse Practitioner 08/04/24 documented as of this encounter
--- OUTSIDE RECORDS SUMMARY | 2025-03-10 09:49 | XMS_ITS | Encounter Summary ---
Author Organization [facility] Address [address], [address] [place] [address] Care Team Providers Care Vehicle Calibration Engineer Name Role Phone Le Bell APRN, NP Primary Care Provider Reason for Referral * Imaging (Routine) - Closed Specialty Diagnoses / Procedures Referred By James martinez Referred To Contact Radiology Diagnoses Chest pain, unspecified type Procedures NM MYOCARDIAL SPECT REST EXERCISE OR RX Le Bell APRN - NP [address] [place] [address] Phone: tel: fax: Referral ID Status Reason Start Date Expiration Date Visits Re quested Visits Authorized [id number] Closed 04/22/2021 04/22/2022 1 1 Encounter Details Date Type Department Care Team (Latest Contact Info) Description 04/22/2021 Transcribe Orders [facility] [address] [place] [address] Le Bell APRN - NP [address] [place] [address] Chest pain, unspecified type (Primary [...] as of this encounter Plan of Treatment Scheduled Orders Name Type Priority Associated Diagnoses [...] documented as of this encounter Care Teams Vehicle Calibration Engineer Relationship Specialty Start Date End Date Le Bell APRN - METAL CEILING BUILDER [address] [place] [address] PCP - General Certified Nurse Practitioner 08/04/24 documented as of this encounter
--- OUTSIDE RECORDS SUMMARY | 2025-03-10 09:49 | XMS_ITS | Clinical Summary ---
Author Organization [facility] Address [address] [place] [address] Care Team Providers Care Air Traffic Coordinator Name Role Phone Unavailable Primary Care Provider [...]
--- OUTSIDE RECORDS SUMMARY | 2025-03-10 09:49 | XMS_ITS | Encounter Summary ---
Author Organization [facility] Address [address], [address] [place] [address] Care Team Providers Care Mine Administrator Supervisor Name Role Phone Le Bell APRN - UNDERGRADUATE INTERN Primary Care Provider Reason for Visit * Reason Comments Other Encounter Details Date Type Department Care Team ([facility] Contact Info) Description 10/26/2013 Refill [facility] [place] [address] [place] [id number] Kerri Lovelace, PAIman [address] [address] Other Social History Tobacco Use Types [...] documented as of this encounter Care Teams Mine Administrator Supervisor Relationship Specialty Start Date End Date Le Bell APRN - NP [address] [place] [address] PCP - General Certified Nurse Practitioner 08/04/24 documented as of this encounter
--- OUTSIDE RECORDS SUMMARY | 2025-03-10 09:49 | XMS_ITS | Encounter Summary ---
Author Organization [facility] Address [address], [address] [place] [address] Care Team Providers Care Chief Quality Officer Name Role Phone Le Bell APRN - PITCHING COACH Primary Care Provider Reason for Visit * Reason Comments Medication Refill Encounter Details Date Type Department Care Team ([facility] Contact Info) Description 01/11/2017 Refill [facility] [place] [address] [place] [phone] Ade Lloyd, MOLD CAR PUSHER - GRISTMILLER [address] [place] [address] Medication Refill Social History Tobacco Use Types [...] documented as of this encounter Care Teams Chief Quality Officer Relationship Specialty Start Date End Date Le Bell APRN - NP [address] [place] [address] PCP - General Certified Nurse Practitioner 08/04/24 documented as of this encounter
--- OUTSIDE RECORDS SUMMARY | 2025-03-10 09:49 | XMS_ITS | Encounter Summary ---
Author Organization [facility] Address [address] [place] [address] Care Team Providers Care Jewelry Store Manager Name Role Phone Unavailable Primary Care Provider Unavailabl e Reason for Visit * Reason Comments Med Refill Encounter Details Date Type Department Care Team (Latest Contact Info) Description 02/25/2024 Refill [facility] Shaikh Gil MD [address] [place] [phone] Social History Tobacco Use Types Packs/Day Years [...]
--- OUTSIDE RECORDS SUMMARY | 2025-03-10 09:49 | XMS_ITS | Encounter Summary ---
Author Organization [facility] Address [address], [address] [place] [address] Care Team Providers Care Gas Dispenser Name Role Phone Le Bell APRN - CIRCUS ARTIST Primary Care Provider Reason for Visit * Reason Comments Medication Refill Encounter Details Date Type Department Care Team ([facility] Contact Info) Description 07/27/2016 Refill [facility] Primary Care of [place] [address] [place] [address] Ade Lloyd APRN - INFORMATION CODER [address] [place] [id number] Medication Refill Social History Tobacco Use Types [...] documented as of this encounter Care Teams Gas Dispenser Relationship Specialty Start Date End Date Le Bell APRN - [place] [address] [place] [phone] PCP - General Certified Nurse Practitioner 08/04/24 documented as of this encounter
--- OUTSIDE RECORDS SUMMARY | 2025-03-10 09:49 | XMS_ITS | Encounter Summary ---
Author Organization [facility] Address [address], [address] [place] [address] Care Team Providers Care Qual Research Manager Name Role Phone Le Bell APRN - BLUE LEATHER SORTER Primary Care Provider Reason for Visit * Reason Comments Medication Refill Encounter Details Date Type Department Care Team ([facility] Contact Info) Description 10/26/2016 Refill [facility] [place] [address] [place] [phone] Ade Lloyd, PICKING TABLE WORKER - RAILWAY TRACK PLANT OPERATOR [address] [place] [address] Medication Refill Social History Tobacco Use Types [...] documented as of this encounter Care Teams Qual Research Manager Relationship Specialty Start Date End Date Le Bell APRN - NP [address] [place] [address] PCP - General Certified Nurse Practitioner 08/04/24 documented as of this encounter
--- OUTSIDE RECORDS SUMMARY | 2025-03-10 09:49 | XMS_ITS | Clinical Summary ---
Author Organization [facility] Address [address] [facility] [place] [address] Care Team Providers Care Assistant Maintenance Manager Name Role Phone Le Bell GAME PRESERVE MANAGER Primary Care Provider [phone] Allergies Active Allergy Reactions Criticality Noted Date Comments Penicillins 04/21/2021 Pravastatin Hives 10/13/2010 Medications Aspirin Low Dose [address] tablet Take 81 mg by mouth daily. 1 Active Continuous Blood Gluc Java Technical Manager ([employer] [address] [place] [employer]) DeviceIndications: Uncontrolled type 2 diabetes mellitus [...] VACCINE (1 of 2) 01/04/2018 COVID-19 VACCINE (1 - season) 2024 INFLUENZA VACCINE (#1) 2025 LIPID SCREENING 07/05/2027 07/05/2022 Procedures Procedure [...] Advance Directives For more information, please contact: [phone] (7:30 AM - 6PM [facility], Monday-Monday) * Full Code (Latest Code Status on File) Date Activated Date Inactivated Comments 06/21/2022 5:19 PM Care Teams Assistant Maintenance Manager Relationship Specialty Start Date End Date Le Bell CNP PCP - General Family Medicine 06/21/21
--- OUTSIDE RECORDS SUMMARY | 2025-03-10 09:49 | XMS_ITS | Encounter Summary ---
Author Organization [facility] Address [address], [address] [place] [address] Care Team Providers Care Rail Car Driver Name Role Phone Le Bell APRN - FURNITURE INSPECTOR Primary Care Provider Reason for Visit * Reason Comments Medication Refill Encounter Details Date Type Department Care Team ([facility] [address] Contact Info) Description 11/17/2016 Refill [facility] Primary Care of [place] [address] [place] [address] Ade Lloyd APRN - [address] [place] [address] [address] Medication Refill Social History Tobacco Use Types [...] documented as of this encounter Care Teams Rail Car Driver Relationship Specialty Start Date End Date Le Bell APRN - NP [address] [place] [phone] PCP - General Certified Nurse Practitioner 08/04/24 documented as of this encounter
--- OUTSIDE RECORDS SUMMARY | 2025-03-10 09:49 | XMS_ITS | Encounter Summary ---
Author Organization [facility] Address [address], [address] [place] [address] Care Team Providers Care Outside Sales Engineer Name Role Phone Le Bell APRN - CIGAR PACKER AND GRADER Primary Care Provider Encounter Details Date Type Department Care Team (Late st Contact Info) Description 04/22/2016 FollowUp Telephone Encounter [facility] General Surgery [address] [place] [address] Dandy Fulton, RN Social History Tobacco Use [...] documented as of this encounter Care Teams Outside Sales Engineer Relationship Specialty Start Date End Date Le Bell APRN - NP [address] [place] [phone] PCP - General Certified Nurse Practitioner 08/04/24 documented as of this encounter
--- OUTSIDE RECORDS SUMMARY | 2025-03-10 09:49 | XMS_ITS | Encounter Summary ---
Author Organization [facility] Address [address], [address] [place] [address] Care Team Providers Care Claims Director Name Role Phone Arabella Ledima Oviedo APRN - ALUMNI COORDINATOR Primary Care Provider Encounter Details Date Type Department Care Team ([facility] st Contact Info) Description 10/11/[address] [facility] PRE ADMIT [address] [place], [place] [phone] Amy Wilson, RN Social History Tobacco Use [...] documented in this encounter Plan of Treatment Not on file documented as of this encounter Visit Diagnoses Not on filedocumented in this encounter Additional Health Concerns Infection Onset Date Last Indicated Resolved Time C-diff Rule Out 04/14/2021 04/14/2021 documented as of this encounter Care Teams Claims Director Relationship Specialty Start Date End Date Le Bell, DEBATE DIRECTOR - ALUMNI COORDINATOR [address] [place] [address] PCP - General Certified Nurse Practitioner 08/04/24 documented as of this encounter
--- OUTSIDE RECORDS SUMMARY | 2025-03-10 09:49 | XMS_ITS | Clinical Summary ---
Author Organization [facility] Address [address], [address] [place] [address] Care Team Providers Care Blasting Miner Name Role Phone ArabellaLe wylie Preet GROUP CONTROLLER - DISTILLATION OPERATOR HELPER Primary Care Provider Allergies Active Allergy Reactions Criticality Noted Date Comments Gabapentin 09/09/2024 Nausea, vomiting Penicillins Other (See Comments) 10/13/2010 Unknown reaction Patient reports that she has taken Keflex in the past without reaction. Pravastatin Hives 10/13/2010 Medications insulin glargine (LANTUS SOLOSTAR) 100 UNIT/ML injection pen Inject 40 Units into the skin 2 times daily 10 pen 3 04/16/20 21 Active INSULIN LISPRO SC Inject into the skin 3 times daily (with meals) Sliding scale Active cyclobenzaprine (FLEXERIL) 10 MG tablet Take 1 tablet by mouth 3 times daily as needed for Muscle spasms 10 tablet 09/30/19 25 Active Additional Information Patient not taking.Reported on 02/26/2025 metoprolol succinate (TOPROL XL) 25 MG extended release tablet Take 1 tablet by mouth daily 30 tablet 11 10/02/19 25 Active Additional Information Patient not taking.Reported on 02/26/2025 ondansetron (ZOFRAN-ODT) 4 MG disintegrating tablet Take 1 tablet by mouth 3 times daily as needed for Nausea or Vomiting 21 tablet 02/27/20 25 Active Active Problems Problem Noted Date Diagnosed [...] Encounters Date Type Department Care Team Description 02/26/2025 12:57 PM EDT - 02/26/2025 2:[address] [facility] Emergency Department [address] [place] [address] Eugenio Lan MD Dehydration (Primary Dx); Nausea and vomiting, unspecified vomiting type Discharge Disposition: Home or Self Care 02/26/2025 Travel 12/06/2024 12:41 PM EDT - 12/08/2024 11:59 PM EDT Hospital Encounter [facility] MRI [address] [place] [address] Lumbar back pain; Spondylolisthesis of thoracic region Discharge Disposition: Home or Self Care from [...] Not Answered Alcohol Use Standard Drinks/Week Comments Never 0 [...] Mass Index 25.99 02/26/2025 1:01 PM EDT Plan of Treatment Health Maintenance Due Date [...] (Diabetes, CKD 3-4, OR last GFR 15-59) 02/26/2026 02/26/2025, 09/09/2024, 09/04/2024, Additional history exists HIV screen Completed 06/23/2012 [...] EKG 12-LEAD STAT 02/26/2025 1:20 PM EDT TROPONIN Timed 02/26/2025 1:10 PM EDT MAGNESIUM STAT 02/26/2025 1:10 PM EDT T4, FREE STAT 02/26/2025 1:10 PM EDT TSH STAT 02/26/2025 1:10 PM EDT LIPASE STAT 02/26/2025 1:10 PM EDT COMPREHENSIVE METABOLIC PANEL STAT 02/26/2025 1:10 PM EDT CBC WITH AUTO DIFFERENTIAL STAT 02/26/2025 1:[address] CHEST WO CONTRAST STAT 09/02/2024 5:54 PM EST LIPID PANEL Routine 07/04/2022 9:04 AM EST MICROALBUMIN, UR Routine 07/04/2022 9:04 AM EST HEMOGLOBIN A1C Routine 07/04/2022 9:04 AM EST PHOTOGRAPH DEVELOPER CYTOLOGY Routine 10/23/2018 10:00 AM EDT HUMAN PAPILLOMAVIRUS (HPV) DNA PROBE THIN PREP HIGH RISK Routine 02/25/2016 8:37 AM EDT HIV SCREEN Routine 06/23/2012 9:33 AM EST HEPATITIS C ANTIBODY Routine 06/23/2012 9:33 AM EST from Last 3 Months or Most Recently Relevant to Health Maintenance Results * EKG 12 Lead (02/26/2025 1:20 PM EDT) Ventricular Rate 95 BPM [facility] Atrial Rate 95 BPM [facility] P-R Interval 156 ms [facility] QRS Duration 70 ms [facility] Q-T Interval 356 ms [facility] QTc Calculation (Bazett) 447 ms [facility] P [place] 74 degrees [facility] R [place] 77 degrees [facility] T [place] 80 degrees [facility] 02/26/2025 1:20 PM EDT Narrative [facility] - 02/27/2025 8:46 AM EDT Normal sinus rhythm Cannot rule out Anterior infarct (cited on or before 13-Apr-2021) Abnormal ECG Procedure Note Roverto Barbour MD - 02/27/2025 Normal sinus rhythm Cannot rule out Anterior infarct (cited on or before 13-Apr-2021) Abnormal ECG us Eugenio Lan MD ECG ORDERABLES Final Result [facility] * (ABNORMAL) CBC with Auto Differential (02/26/2025 1:10 PM EDT) WBC 7.8 3.5 - 11.0 k/uL 02/26/2025 1:10 PM EDT [facility] RBC 5.76(H) 4.00 - 5.20 m/uL 02/26/2025 1:10 PM EDT [facility] Hemoglobin 16.3(H) 12.0 - 16.0 g/dL 02/26/2025 1:[address] [facility] Hematocrit 47.7(H) 36.0 - 46.0 % 02/26/2025 1:10 PM EDT [facility] MCV 82.8 80.0 - 100.0 fL 02/26/2025 1:10 PM EDT [facility] MCH 28.3 26.0 - 34.0 pg 02/26/2025 1:10 PM EDT [facility] MCHC 34.2 31.0 - 37.0 g/dL 02/26/2025 1:10 PM EDT [facility] RDW 12.4 12.1 - 15.2 % 02/26/2025 1:10 PM EDT [facility] Platelets 382 140 - 450 k/uL 02/26/2025 1:10 PM EDT [facility] MPV 9.7 6.0 - 12.0 fL 02/26/2025 1:10 PM EDT [facility] Neutrophils % 60 47 - 75 % 02/26/2025 1:10 PM EDT [facility] Lymphocytes % 30 15 - 40 % 02/26/2025 1:10 PM EDT [facility] Monocytes % 8 4 - 8 % 02/26/2025 1:10 PM EDT [facility] Eosinophils % 1 0 - 5 % 02/26/2025 1:10 PM EDT [facility] Basophils % 1 0 - 2 % 02/26/2025 1:10 PM EDT [facility] Immature Granulocytes % 0 0 - 5 % 02/26/2025 1:10 PM EDT [facility] Neutrophils Absolute 4.72 2.5 - 7.0 k/uL 02/26/2025 1:10 PM EDT [facility] Lymphocytes Absolute 2.35 1.00 - 4.80 k/uL 02/26/2025 1:10 PM EDT [facility] Monocytes Absolute 0.65 0.00 - 1.00 k/uL 02/26/2025 1:10 PM EDT [facility] Eosinophils Absolute 0.06 0.00 - 0.40 k/uL 02/26/2025 1:10 PM EDT [facility] Basophils Absolute 0.05 0.00 - 0.20 k/uL 02/26/2025 1:10 PM EDT [facility] Immature Granulocytes Absolute 0.01 0.00 - 0.30 k/uL 02/26/2025 1:10 PM EDT [facility] BLOOD SPECIMEN / Unknown 02/26/2025 1:10 PM EDT 02/26/2025 1:11 PM EDT Eugenio Lan MD HEMATOLOGY ORDERABLES Final Re sult [facility] [address] [phone] * (ABNORMAL) Troponin (02/26/2025 1:10 PM EDT) [facility] Troponin, High Sensitivity 18(H) 0 - 14 ng/L 02/26/2025 1:10 PM EDT [facility] Comment:High Sensitivity Tro ponin values cannot be compared with other Troponin methodologies. Blood BLOOD SPECIMEN / Unknown 02/26/2025 1:10 PM EDT 02/26/2025 1:11 PM EDT Result [facility] Eugenio Lan MD CHEMISTRY ORDERABLES Final Res ult Performing Organization Address City/[facility]/ZIP Co de Phone Number [facility] [address] [phone] * TSH (02/26/2025 1:10 PM EDT) [facility] TSH 0.75 0.27 - 4.20 uIU/mL 02/26/2025 1:10 PM EDT [facility] Blood BLOOD SPECIMEN / Unknown 02/26/2025 1:10 PM EDT 02/26/2025 1:11 PM EDT Eugenio Lan MD CHEMISTRY ORDERABLES Final Res ult [facility] [address] [phone] * T4, Free (02/26/2025 1:10 PM EDT) T4 Free 1.7 0.9 - 1.7 ng/dL 02/26/2025 1:10 PM EDT [facility] Blood 02/26/2025 1:10 PM EDT 02/26/2025 1:11 PM EDT Eugenio Lan MD CHEMISTRY ORDERABLES Final Res ult Performing Organization Address [facility]/ZIP Co de Phone Number [facility] [address] [place] [place] [address], [place] [phone] [place] [id number], [place] [phone] * Magnesium (02/26/2025 1:10 PM EDT) [facility] Magnesium 2.1 1.6 - 2.6 mg/dL 02/26/2025 1:10 PM EDT [facility] BLOOD SPECIMEN / Unknown 02/26/2025 1:10 PM EDT 02/26/2025 1:11 PM EDT Result [facility] Eugenio Lan MD CHEMISTRY ORDERABLES Final Res ult Performing Organization Address [facility] Co de Phone Number [facility] [address] [place] [place] [address], [place] [phone] * (ABNORMAL) Lipase (02/26/2025 1:10 PM EDT) Pathologist [facility] Lipase 96(H) 13 - 60 U/L 02/26/2025 1:10 PM EDT [facility] BLOOD SPECIMEN / Unknown 02/26/2025 1:10 PM EDT 02/26/2025 1:11 PM EDT Eugenio Lan MD CHEMISTRY ORDERABLES Final Res ult Performing Organization Address City/[facility]/ZIP Co de Phone Number [facility] [address] [place] [place] [address], [place] [phone] * (ABNORMAL) Comprehensive Metabolic Panel (02/26/2025 1:10 PM EDT) Sodium 133(L) 135 - 144 mmol/L 02/26/2025 1:10 PM EDT [facility] Potassium 4.1 3.7 - 5.3 mmol/L 02/26/2025 1:10 PM EDT [facility] Chloride 93(L) 98 - 107 mmol/L 02/26/2025 1:10 PM EDT [facility] CO2 24 20 - 31 mmol/L 02/26/2025 1:10 PM EDT [facility] Anion Gap 16 9 - 17 mmol/L 02/26/2025 1:10 PM EDT [facility] Glucose 293(H) 70 - 99 mg/dL 02/26/2025 1:10 PM EDT [facility] BUN 15 6 - 20 mg/dL 02/26/2025 1:10 PM EDT [facility] Creatinine 0.6 0.5 - 0.9 mg/dL 02/26/2025 1:10 PM EDT [facility] Est, Glom Filt Rate >90 >60 mL/min/1.7 3m2 02/26/2025 1:10 PM EDT [facility] Comment: These results are not intended [...] - 10.4 mg/dL 02/26/2025 1:10 PM EDT [facility] Total Protein 7.9 6.4 - 8.3 g/dL 02/26/2025 1:10 PM EDT [facility] Albumin 4.6 3.5 - 5.2 g/dL 02/26/2025 1:10 PM T [facility] Albumin/Globulin Ratio 1.4 1.0 - 2.5 02/26/2025 1:10 PM EDT [facility] Total Bilirubin 0.8 0.3 - 1.2 mg/dL 02/26/2025 1:10 PM EDT [facility] Alkaline Phosphatase 115(H) 35 - 104 U/L 02/26/2025 1:10 PM EDT [facility] ALT 15 5 - 33 U/L 02/26/2025 1:10 PM EDT [facility] AST 17 <32 U/L 02/26/2025 1:10 PM EDT [facility] BLOOD SPECIMEN / Unknown 02/26/2025 1:10 PM EDT 02/26/2025 1:11 PM EDT us Eugenio Lan MD CHEMISTRY ORDERABLES Final Res ult [facility] [address] [place] [address], [place] [phone] * CT CHEST WO CONTRAST (09/02/2024 5:54 [...] artery calcification. 4. Mild punctate left nephrolithiasis. us Chaim Del Toro MD [facility] ORDERABLES Final Res ult * (ABNORMAL) Microalbumin, Ur (07/04/2022 9:04 AM EST) Albumin Urine 17 <21 mg/L 07/04/2022 9:04 AM EST [employer] Creatinine, Ur 61.0 28.0 - 217.0 mg/dL 07/04/2022 9:04 AM EST [employer] Microalb/Medical Collections Specialist. Ratio 28(H) <25 mcg/mg creat 07/04/2022 9:04 AM EST [employer] 07/04/2022 9:04 AM EST 07/04/2022 9:05 AM EST us Omar Shea MD URINE ORDERABLES Final Result Performing Organization Address [facility] Co de Phone Number [facility] [address] [place] [address], [place] [phone] [employer] [address] [place] [address], [place] [phone] * (ABNORMAL) Hemoglobin A1C (07/04/2022 9:04 AM EST) Hemoglobin A1C 13.6(H) 4.0 - 6.0 % 07/04/2022 9:04 AM EST [employer] Estimated Avg Glucose 344 mg/dL 07/04/2022 9:04 AM EST [employer] Comment: The ADA and AACC recommend providing the estimated average glucose result to permit better patient understanding of their HBA1c result. 07/04/2022 9:04 AM EST 07/04/2022 9:05 AM EST us Omar Shea MD CHEMISTRY ORDERABLES Final Res ult Performing Organization Address [facility] Co de Phone Number [facility] [address] [place] [address], [place] [phone] [employer] [address] [place] [address], [place] [phone] * (ABNORMAL) Lipid Panel (07/04/2022 9:04 AM EST) Cholesterol 338(H) <200 mg/dL 07/04/2022 9:04 AM EST [employer] Comment: Cholesterol Guidelines: <200 Desirable 200-240 Borderline >240 Undesirable HDL 37(L) >40 mg/dL 07/04/2022 9:04 AM EST [employer] Comment: HDL Guidelines: <40 Undesirable 40-59 Borderline >59 Desirable LDL Cholesterol 235(H) 0 - 130 mg/dL 07/04/2022 9:04 AM EST [employer] Comment: LDL Guidelines: <100 Desirable 100-129 Near to/above Desirable 130-159 Borderline >159 Undesirable Direct (measured) LDL and calculated LDL are not interchangeable tests. Chol/HDL Ratio 9.1(H) <5 07/04/2022 9:04 AM EST [employer] Comment: Triglycerides 330(H) <150 mg/dL 07/04/2022 9:04 AM EST [employer] Comment: Triglyceride Guidelines: <150 Desirable 150-199 Borderline 200-499 High >499 Very high Based on AHA Guidelines for fasting triglyceride, April 2012. 07/04/2022 9:04 AM EST 07/04/2022 9:05 AM EST us Omar Shea MD CHEMISTRY ORDERABLES Final Res ult [facility] [address] [place] [address], [place] [phone] [phone] * PHOTOGRAPH DEVELOPER Cytology (10/23/2018 10:00 AM EDT) Cytology Report [id number] [facility] [address] [place] [phone] GYNECOLOGIC CYTOLOGY REPORT Patient Name: CASANDRA GONZALEZ MR#: [id number] Specimen #[id number] Source: 1: Cervical material, (ThinPrep vial, Imaging-assisted review) Clinical History LEEP: 2016 Z12.4 Encounter for screening for malignant neoplasm of cervix High Risk HPV DNA testing is requested if the diagnosis is ASC-US LMP: ablation INTERPRETATION Cervical material, (ThinPrep vial, Imaging-assisted review): Specimen Adequacy: Satisfactory for evaluation. -Endocervical/tra nsformation zone component is absent. Descriptive Diagnosis: Negative for intraepithelial lesion or malignancy. Wallpaper Embosser Helper: JENI Reynolds JD(ASCP) Electronically Signed Out trever/11/06/2018 [facility] 10/23/2018 10:0 0 AM EDT 10/25/2018 10:00 AM EDT us Grady Barrera MD PATHOLOGY/CYTOLOGY ORDERABLES Final Result [facility] [address] [place] [address], [place] [phone] [address] [phone] * (ABNORMAL) Human papillomavirus (HPV) DNA probe thin prep high risk (02/25/2016 8:37 AM EDT) HPV SOURCE CERVICAL MATERIAL 03/16/2016 8:37 AM EDT [facility] HPV Sample .THIN PREP 03/16/2016 8:37 AM EDT [facility] HPV, Genotype 16 Not Detected NOTDET 2015 2:09 PM EDT [facility] HPV, Genotype 18 Not Detected NOTDET 2015 2:09 PM EDT [facility] HPV, High Risk Other DETECTED(A) NOTDET 03/16/2016 2:09 PM EDT [facility] HPV, Interpretation 03/16/2016 2:09 PM EDT [facility] Comment: This test amplifies [...] or for other forensic purposes. Performed at [address] [id number] ([phone] 02/25/2016 8:37 AM EDT 03/16/2016 8:37 AM EDT us Grady Barrera MD HEMATOLOGY ORDERABLES Final R esult Performing Organization Address [facility] de Phone Number [facility] [address] [place], [place] [phone] [place] [address] [facility] * Hepatitis C antibody (06/23/2012 9:33 AM EST) Pathologist [facility] Hepatitis C Ab NONREACTIVE NR [facility] Comment: The hepatitis C [...] ordering HCV RNA by PCR. Performed at [address] [id number] 06/23/2012 9:33 AM EST 06/23/2012 9:34 AM EST Mukund Olivares MD IMMUNOLOGY ORDERABLES Final Resu lt Performing Organization Address [facility] de Phone Number [facility] [address] [place], [place] [address] [phone] [facility] * HIV-1 and HIV-2 antibodies (06/23/2012 9:33 AM EST) Pathologist [facility] HIV 1/2 Antibody NONREACTIVE NR [facility] Comment: Interpretation: The presence of antibody to HIV and its association with the potential infectivity, transmission or diagnosis of AIDS has not been established. Furthermore, a 'Non-Reactive' test result does not exclude the possibility of exposure to or infection with HIV. If the above test result is 'Reactive', the Laboratory will order the confirmatory test. Performed at [address] [id number] 06/23/2012 9:33 AM EST 06/23/2012 9:34 AM EST Mukund Olivares MD IMMUNOLOGY ORDERABLES Final Resu lt Performing Organization Address [facility] Co de Phone Number [facility] [address] [place] [address], [place] [phone] [facility] from Last 3 Months [...] Agents on File Name Relationship Healthcare Agent Relationsor p Communication Call Dont Child Primary Decision Maker Care Teams Blasting Miner Relationship Specialty Start Date End Date Le Bell, GROUP CONTROLLER - DISTILLATION OPERATOR HELPER [address] [place] [address] PCP - General Certified Nurse Practitioner 08/04/24
--- OUTSIDE RECORDS SUMMARY | 2025-03-10 09:49 | XMS_ITS | Encounter Summary ---
Author Organization [facility] Address [address], [address] [place] [address] Care Team Providers Care Grader Marker Name Role Phone Le Bell APRN - FIRST AID NURSE Primary Care Provider Reason for Visit * Reason Comments Medication Refill Encounter Details Date Type Department Care Team ([facility] Contact Info) Description 08/17/2016 Refill [facility] Primary Care of [place] [address] [place] [address] Ade Lloyd APRN - [address] [address] Medication Refill Social History Tobacco Use Types [...] documented as of this encounter Care Teams Grader Marker Relationship Specialty Start Date End Date Le Bell APRN - NP [address] [place] [phone] PCP - General Certified Nurse Practitioner 08/04/24 documented as of this encounter
--- OUTSIDE RECORDS SUMMARY | 2025-03-10 09:49 | XMS_ITS | Encounter Summary ---
Author Organization [facility] Address [address], [address] [place] [address] Care Team Providers Care Manager Critical Care Name Role Phone Le Bell APRN - DIRECTOR INDEPENDENT Primary Care Provider Reason for Visit * Reason Comments Medication Refill Encounter Details Date Type Department Care Team ([facility] Contact Info) Description 11/02/[address] [facility] [place] [address] [place] [phone] Ade Lloyd, PROP MAKER - SLAB POLISHER [address] [place] [address] Medication Refill Social History Tobacco Use Types [...] documented as of this encounter Care Teams Manager Critical Care Relationship Specialty Start Date End Date Le Bell APRN - NP [address] [place] [address] PCP - General Certified Nurse Practitioner 08/04/24 documented as of this encounter
--- OUTSIDE RECORDS SUMMARY | 2025-03-10 09:49 | XMS_ITS | Encounter Summary ---
Author Organization [facility] Address [address], [address] [place] [address] Care Team Providers Care Gypsum Roofer Name Role Phone Le Bell APRN - WATER AND GAS HELPER Primary Care Provider Encounter Details Date Type Department Care Team (Late st Contact Info) Description 06/21/2021 Transcribe Orders [facility] [address] [place] [address] Le Bell APRN - WATER AND GAS HELPER [address] [place] [address] Social History Tobacco Use Types [...] documented as of this encounter Care Teams Gypsum Roofer Relationship Specialty Start Date End Date Le Bell APRN - NP [address] [place] [address] PCP - General Certified Nurse Practitioner 08/04/24 documented as of this encounter
--- OUTSIDE RECORDS SUMMARY | 2025-03-10 09:49 | XMS_ITS | Encounter Summary ---
Author Organization [facility] Address [address], [address] [place] [address] Care Team Providers Care Pharmacy Tech Customer Service Name Role Phone Le Bell CORDWOOD CUTTER HELPER - FORESTRY TECHNICIAN Primary Care Provider Encounter Details Date Type Department Care Team (Latest Contact Info) Description 02/26/2025 Travel Social History Tobacco Use Types Packs/Day Years [...] on file documented as of this encounter Functional Status documented as of this encounter Plan of Treatment Not on file documented as of this encounter Visit Diagnoses Not on filedocumented in this encounter Additional Health Concerns Infection Onset Date Last Indicated Resolved Time C-diff Rule Out 04/14/2021 04/14/2021 documented as of this encounter Care Teams Pharmacy Tech Customer Service Relationship Specialty Start Date End Date Le Bell APRN - FORESTRY TECHNICIAN [address] [place] [phone] PCP - General Certified Nurse Practitioner 08/04/24 documented as of this encounter
--- OUTSIDE RECORDS SUMMARY | 2025-03-10 09:49 | XMS_ITS | Encounter Summary ---
Author Organization [facility]yszto[facility] Turner [facility] Address [address], [address] [place] [address] Care Team Providers Care Nutrition Partner Name Role Phone Le eBll APRN - SENIOR FACILITIES MANAGER Primary Care Provider Reason for Visit * Reason Comments Medication Refill Encounter Details Date Type Department Care Team ([facility] Contact Info) Description 10/09/2016 Refill [facility] [place] [address] [place] [phone] Ade Lloyd, COLD PRESS OPERATOR - NIGHT COURT MAGISTRATE [address] [place] [address] Medication Refill Social History Tobacco Use Types [...] documented as of this encounter Care Teams Nutrition Partner Relationship Specialty Start Date End Date Le Bell APRN - NP [address] [place] [address] PCP - General Certified Nurse Practitioner 08/04/24 documented as of this encounter
--- OUTSIDE RECORDS SUMMARY | 2025-03-10 09:49 | XMS_ITS | Encounter Summary ---
Author Organization [facility] Address [address] [place] [address] Care Team Providers Care Wedger Name Role Phone Le Bell APRN - CORRECTIONAL SUPERVISOR Primary Care Provider Reason for Visit * Reason Comments Medication Refill Encounter Details Date Type Department Care Team ([facility] Contact Info) Description 09/06/2017 Refill [facility] [place] [address] [place] [phone] Ade Lloyd, HOISTING 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 - UNIT SUPPORT REPRESENTATIVE [address] [place] [address] Medication Refill Social History Tobacco Use Types [...] documented as of this encounter Care Teams Wedger Relationship Specialty Start Date End Date Le Bell APRN - NP [address] [place] [address] PCP - General Certified Nurse Practitioner 08/04/24 documented as of this encounter
--- OUTSIDE RECORDS SUMMARY | 2025-03-10 09:49 | XMS_ITS | Encounter Summary ---
Author Organization [facility] Address [address], [address] [place] [address] Care Team Providers Care Retail Sales Assistant Name Role Phone Le Bell APRN - MATE SHIP Primary Care Provider Reason for Visit * Reason Comments Medication Refill Encounter Details Date Type Department Care Team ([facility] Contact Info) Description 09/14/2016 Refill [facility] [place] [address] [place] [address] Ade Lloyd APRN - [address] [address] Medication Refill Social History Tobacco Use Types [...] documented as of this encounter Care Teams Retail Sales Assistant Relationship Specialty Start Date End Date Le Bell APRN - NP [address] [place] [phone] PCP - General Certified Nurse Practitioner 08/04/24 documented as of this encounter
--- OUTSIDE RECORDS SUMMARY | 2025-03-10 09:49 | XMS_ITS | Encounter Summary ---
Author Organization [facility] Address [address], [address] [place] [address] Care Team Providers Care Hand Sizer Name Role Phone Le Bell APRN - TRADE SHOW COORDINATOR Primary Care Provider Reason for Visit * Reason Comments Medication Refill Encounter Details Date Type Department Care Team ([facility] Contact Info) Description 11/10/2016 Refill [facility] [place] [address] [place] [phone] Ade Lloyd, INTERNET MEDIA PLANNER - [employer] [address] [place] [address] Medication Refill Social History Tobacco Use Types [...] documented as of this encounter Care Teams Hand Sizer Relationship Specialty Start Date End Date Le Bell APRN - NP [address] [place] [address] PCP - General Certified Nurse Practitioner 08/04/24 documented as of this encounter
--- OUTSIDE RECORDS SUMMARY | 2025-03-10 09:57 | XMS_ITS | CCD ---
Author Organization [facility] Care Team Providers Care Cadd Instructor Name Role Phone Roverto Barbour Primary Care Provider Unavailable Primary Care Provider Unavailabl e Hardeep Kavita JIMENEZ Primary Care Provider [phone] Hardeep Kavita JIMENEZ Primary Care Provider Hardeep Kavita JIMENEZ Primary Care Provider [phone] Hardeep Kavita JIMENEZ Primary Care Provider Unavailable Primary Care Provider Unavailabl e HARDEEP, KAVITA Primary Care Unavailable LUCY, CECILIO Admitting Unavailable LUCY, CECILIO Attending Unavailable HARDEEP, KAVITA Primary Care Unavailable HARDEEP, KAVITA Primary Care Unavailable HARDEEP, KAVITA Primary Care Unavailable HARDEEP, KAVITA Primary Care Unavailable HARDEEP, KAVITA Referring Unavailable DARMODY, MANISH M Attending Unavailable HARDEEP, KAVITA Primary Care Unavailable HARDEEP, KAVITA Referring Unavailable DARMODY, MANISH M Attending Unavailable HARDEEP, KAVITA Referring Unavailable HARDEEP, KAVITA Primary Care Unavailable ANNA, SAFIA Attending Unavailable HARDEEP, KAVITA Referring Unavailable HARDEEP, KAVITA Primary Care Unavailable ANNA, SAFIA Attending Unavailable HADREEP, KAVITA Primary Care Unavailable HARDEEP, KAVITA Referring Unavailable DARMODY, MANISH M Attending Unavailable Hardeep Kavita JIMENEZ Primary Care Provider [phone] Hardeep Nadine JIMENEZie Unavailable Unavailable Primary Care Provider Unavailabl e Hardeep PATIENT TRANSPORT OFFICER - DOUBLE HEAD 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Kavita L Primary Care Provider AME SALADNA Attending Unavailable HARDEEP, KAVITA L Primary Care Unavailable HARDEEP, KAVITA L Primary Care Unavailable HARDEEP, KAVITA L Primary Care Unavailable BETHANY ARBOLEDA Attending Unavailable AME SALDANA Referring Unavailable HARDEEP, KAVITA L Primary Care Unavailable HARDEEP, KAVITA L Primary Care Unavailable HARDEEP, KAVITA L Referring Unavailable HARDEEP, KAVITA L Primary Care Unavailable HARDEEP, KAVITA L Referring Unavailable HARDEEP, KAVITA L Primary Care Unavailable HARDEEP, KAVITA L Referring Unavailable BEKAH LAN Attending Unavailable HARDEEP, KAVITA L Primary Care Unavailable HARDEEP, KAVITA L Primary Care Unavailable NAMITA RIZZO Attending Unavailable CRIS HERRING Attending Unavailable HARDEEP, KAVITA L Primary Care Unavailable LUKAS LOPEZ Attending Unavailable HARDEEP, KAVITA L Primary Care Unavailable HARDEEP, KAVITA L Primary Care Unavailable HARDEEP, KAVITA L Referring Unavailable HARDEEP, KAVITA L Referring Unavailable HARDEEP, KAVITA L Primary Care Unavailable HARDEEP, KAVITA L Referring Unavailable HARDEEP, KAVITA L Primary Care Unavailable HARDEEP, KAVITA L Referring Unavailable HARDEEP, KAVITA L Primary Care Unavailable HARDEEP, KAVITA L Referring Unavailable HARDEEP, KAVITA L Primary Care Unavailable HARDEEP, KAVITA L Referring Unavailable HARDEEP, KAVITA L Primary Care Unavailable HARDEEP, KAVITA L Referring Unavailable HARDEEP, KAVITA L Referring Unavailable HARDEEP, KAVITA L Referring Unavailable HARDEEP, KAVITA L Primary Care Unavailable DIGMARCELA JUAN Referring Unavailable HARDEEP, KAVITA L Primary Care Unavailable HARDEEP, KAVITA L Referring Unavailable LORNALEXISELIN Attending Unavailable HARDEEP, KAVITA L Primary Care Unavailable LORNA, VESELIN Attending Unavailable HARDEEP, KAVITA L Primary Care Unavailable HARDEEP, KAVITA L Referring Unavailable HARDEEP, KAVITA L Primary Care Unavailable JAVIER BRANHAM Referring Unavailable JAVIER BRANHAM Attending Unavailable HARDEEP, KAVITA L Referring Unavailable Ron BRANDT, Ivana Patel Attending Unavailable Gieditis , Ivana Patel Attending Unavailable Allergies Allergy Classification Reported Allergen(s) Allergy Type Date of Onset Reaction(s) Facility (13 sources) Penicillins Propensity to adverse reactions to drug 1 Other (See Comments) [place], [place] (20 sources) Pravastatin Drug Allergy 1 Hives [place], [place] (20 sources) Hmg-Coa Reductase Inhibitors (Statins); Translations: [Statins] Allergy to substance 1 Hives / Urticaria [facility] (6 sources) house dust allergenic extract Drug Allergy 1 [facility], [facility] Work Phone: (6 sources) Penicillins (Antibiotic) Allergy to substance 1 [facility] Work Phone: (20 sources) Penicillins Propensity to adverse reactions to drug 1 Other (See Comments), Hives / Urticaria [facility] Work Phone: (12 sources) gabapentin Drug Allergy 5 [facility] Medications Current Medications Medication Drug Class(es) Dates Sig (Normalized) Sig (Original) *CPAP SUPPLIES Miscellaneous (15 sources) Start: 06-02-2021 *CPAP SUPPLIES Miscellaneous 06/02/2021 Provider: Kavita Qureshi CNP [id number] 200 actuat albuterol 0.09 mg/actuat metered dose [...] for Wheezing 1 Inhaler 3 09/06/2017 Active cetirizine hydrochloride 10 mg oral tablet (4 sources) Histamine-1 Receptor Antagonist Start: 09-06-2017 End: 04-16-2021 take 1 tablet by mouth once daily cetirizine (ZYRTEC) 10 MG tablet Take 1 tablet by mouth daily 90 tablet 1 09/06/2017 04/16/2021 Discontinued (Stop Taking at Discharge) cholecalciferol 0.025 mg oral tablet (20 sources) Vitamin D Start: 04-14-2021 take 2000 [IU] by mouth once daily 2,000 Units, Oral, DAILY, First dose on Mon04/14/21 at 0900 Start: 10-17-2018 End: 09-04-2024 take 1 capsule by mouth once daily Cholecalciferol (VITAMIN D3) 2000 units CAPS Indications: Vitamin D deficiency Take 1 capsule by mouth daily 30 capsule 11 10/17/2018 09/04/2024 Discontinued (LIST CLEANUP) Continuous Blood Gluc Receiv er (FreeStyle Titus 2 [place] Systm) Device (5 sources) Start: 08-03-2021 Continuous Blood Gluc Sensor (FreeStyle Titus 2 Sensor Systm) Misc (8 sources) Start: 04-07-2022 Start: 02-03-2022 End: 04-07-2022 Start: 02-03-2022 Start: 12-09-2021 End: 02-03-2022 Start: 12-09-2021 Start: 08-03-2021 End: 12-09-2021 Start: 08-03-2021 Continuous Blood Gluc Sensor (FREESTYLE TITUS 2 SENSOR) MISC (20 sources) Start: 01-31-2022 End: 09-04-2024 Continuous Blood Gluc Sensor (FREESTYLE TITUS 2 SENSOR) MISC USE DIRECTED 01/31/2022 09/04/2024 Discontinued (LIST CLEANUP) Start: 01-31-2022 Continuous Blo od Gluc Sensor (FREESTYLE TITUS 2 SENSOR) MISC USE DIRECTED 01/31/2022 Active Start: 01-31-2022 Continuous Blo od Gluc Sensor (FREESTYLE TITUS 2 SENSOR) MISC USE DIRECTED 0 01/31/2022 Active cyclobenzaprine hydrochloride 10 mg oral tablet (20 sources) Muscle Relaxant Start: 09-29-2024 take 1 tablet by mouth three times daily as needed for muscle spasms cyclobenzaprine (FLEXERIL) 10 MG tablet Take 1 tablet by mouth 3 times daily as needed for Muscle spasms 10 tablet 09/29/2024 Active Start: 08-21-2024 End: 09-19-2024 Cyclobenzaprine HCl 5 MG Ora l Tablet 08/21/2024 - 09/19/2024 Provider: Kavita Qureshi CNP Start: 08-04-2024 End: 09-04-2024 Cyclobenzaprine HCl 10 MG Or al Tablet 08/08/2024 - 08/21/2024 Provider: Kavita Qureshi CNP docosahexaenoic acid 120 mg / eicosapentaenoic acid 180 mg oral capsule (4 sources) Start: 09-06-2018 End: 04-16-2021 take 2 capsules by mouth once daily [place]ancock-3 Fatty Acids (FISH OIL) 1000 MG CAPS [...] Active 0.5 ml dulaglutide 3 mg/ml auto-injector (20 sources) GLP-1 Receptor Agonist Start: 04-07-2022 inject [...] mL 3 02/03/2022 Active Start: 12-09-2021 End: 09-04-2024 inject 0.75 mg by subcutaneous injection every week TRULICITY 0.75 MG/0.5ML SOPN INJECT 0.75mg under the skin once a week. 02/02/2022 09/04/2024 Discontinued (LIST CLEANUP) 0.4 ml enoxaparin sodium 100 mg/ml prefilled [...] 09/06/2017 04/16/2021 Discontinued (Stop Taking at Discharge) FreeStyle Titus 2 Sensor Miscellaneous (12 sources) Start: 06-24-2024 FreeStyle Titus 2 Sensor Miscellaneous 06/24/2024 Provider: Kavita Qureshi CNP 0.2 ml glucagon 5 mg/ml auto-injector (6 [...] is less than 70 mg/dL. glucose monitoring (FREESTYL E FREEDOM) kit (20 sources) Start: 04-16-2021 End: 09-04-2024 glucose monitoring (FREESTYL E FREEDOM) kit 1 kit by Does not apply route daily 1 kit 04/16/2021 09/04/2024 Discontinued (LIST CLEANUP) Start: 04-16-2021 glucose monito ring (FREESTYLE FREEDOM) kit 1 kit by Does not apply route daily 1 kit 04/16/2021 Active Start: 04-16-2021 glucose monito ring (FREESTYLE FREEDOM) kit 1 kit by Does not apply route daily 1 kit 0 04/16/2021 Active GNP True Metrix Glucose Meter w/Device Kit (11 sources) Start: 07-04-2024 GNP True Metri x Glucose Meter w/Device Kit 07/04/2024 Provider: Kavita Qureshi CNP insulin glargine 100 unt/ml injectable solution (20 sources) Insulin Analog Start: 09-06-2024 End: 12-31-2024 Lantus 100 UNIT/ML Subcutaneous Solution 12/31/2024 Provider: Kavita Qureshi CNP Start: 08-08-2024 End: 09-02-2024 Lantus 100 UNIT/ML Subcutane ous Solution 08/08/2024 - 09/02/2024 Provider: Kavita Qureshi CNP Start: 10-28-2021 End: 02-03-2022 insulin glargine (Lantus Melissa oStar) 100 UNIT/ML Solution Pen-injector injection Inject 60 Units under the skin 2 times daily. 18 mL 3 10/28/2021 02/03/2022 Discontinued Start: 04-21-2021 End: 09-02-2024 Lantus SoloStar 100 UNIT/ML Subcutaneous Solution Pen-injector 05/18/2021 - 06/02/2021 Provider: Kavita Qureshi CNP Start: 04-17-2021 insulin glargi ne (LANTUS) [...] glargine (LANTUS) in jection vial 40 Units insulin lispro (HUMALOG) 100 UNIT/ML injection vial (4 sources) Start: 04-16-2021 insulin lispro (HUMALOG) 100 UNIT/ML injection vial 0 to 18 units per sliding scale. 5 pen 3 04/16/2021 Active 3 ml liraglutide 6 mg/ml pen injector (4 sources) GLP-1 Receptor Agonist Start: 08-10-2018 End: 04-16-2021 Liraglutide (VICTOZA) 18 MG/3ML SOPN SC injection Inject 1.8 mg into the skin daily 3 pen 3 08/10/2018 04/16/2021 Discontinued (Stop Taking at Discharge) loratadine 10 mg oral tablet (1 source) Start: 03-03-2025 Loratadine 10 MG Oral Tablet 03/03/2025 Provider: Kavita Qureshi CNP 100 ml magnesium sulfate 10 mg/ml injection (1 source) Start: 04-13-2021 1,000 mg, IntraVENous, at 100 mL/hr, Administer over 1 Hours, PRN, Other, Magnesium IV Replacement, Starting on Mon04/13/21 at 2212 Mg Level Mg Replacement Action 1.4 to 1.6 1 gram IVPB x 2 doses (2 grams total) 1.0 to 1.3 1 gram IVPB x 4 doses (4 grams total) Below 1.0 CALL PHYSICIAN and 1 gram IVPB x 4 doses (4 grams total) I nfuse at 1 gram/hr. Repea t Mg level next AM. Not for use in patients with CrCl less than 30 mL/min. 24 hr metoprolol succinate 25 mg extended release oral tablet (9 sources) beta-Adrenergic Sathish Start: 10-01-2024 take 1 tablet by mouth once daily metoprolol succinate (TOPROL XL) 25 MG extended release tablet Take 1 tablet by mouth daily 30 tablet 11 10/01/2024 Active Start: 09-09-2024 take 1 tablet by phuong once daily metoprolol succinate (TOPROL XL) 25 MG extended release tablet Take 1 tablet by mouth daily 30 tablet 09/09/2024 Active Start: 09-09-2024 End: 09-09-2024 5 mg, IntraVENous, ONCE, 1 d ose, On Mon09/09/24 at 0730 naproxen 375 mg oral tablet (1 source) Nonsteroidal Anti-inflammatory Drug Start: 09-29-2024 take 1 tablet by mouth twice daily at mealtime naproxen (NAPROSYN) 375 MG tablet Take 1 tablet by mouth 2 times daily (with meals) 30 tablet 1 09/29/2024 Active ondansetron 4 mg disintegrating oral tablet (6 sources) Serotonin-3 Receptor Antagonist Start: 02-26-2025 take 1 tablet by mouth three times daily as needed for nausea ondansetron (ZOFRAN-ODT) 4 MG disintegrating tablet Take 1 tablet by mouth 3 times daily as needed for Nausea or Vomiting 21 tablet 02/26/2025 Active Start: 08-04-2024 End: 08-04-2024 take 1 dose by mouth once 4 mg, Oral, ONCE, 1 dose, On 08/04/24 at 1100 Start: 06-21-2022 End: 06-22-2022 take 4 mg intravenously every six hours as needed ondansetron 4mg/2ml (ZOFRAN) injection 4 mg Start: 04-13-2021 End: 04-13-2021 ondansetron (ZOFRAN) injecti on 4 mg Start: 04-13-2021 End: 04-13-2021 ondansetron (ZOFRAN) injecti on 4 mg Start: 04-13-2021 End: 04-13-2021 ondansetron (ZOFRAN-ODT) disintegrating tablet 4 mg PARoxetine hydrochloride 10 mg oral tablet (4 sources) Serotonin Reuptake Inhibitor Start: 10-23-2018 End: 04-16-2021 take 1 tablet by mouth once daily PARoxetine (PAXIL) 10 MG tablet Indications: Hot flashes due to menopause Take 1 tablet by mouth daily 30 tablet 3 10/23/2018 04/16/2021 Discontinued (Stop Taking at Discharge) polyethylene glycol 3350 [id number] mg powder for oral solution (1 source) [...] Active vitamin b6 50 mg oral tablet (20 sources) Start: 09-06-2018 End: 09-04-2024 take 1 tablet by mouth once daily vitamin B-6 (PYRIDOXINE) 50 MG tablet TAKE 1 TABLET BY MOUTH EVERY DAY 30 tablet 5 09/06/2018 09/04/2024 Discontinued (LIST CLEANUP) Completed/Discontinued Medications Medication Drug Class(es) Dates Sig (Normalized) Sig (Original) acetaminophen 325 mg oral tablet (1 source) Start: 06-21-2022 End: 06-22-2022 take 1 tablet by mouth every six hours as needed acetaminophen (TYLENOL) tablet 650 mg acetaminophen 325 mg / HYDROcodone bitartrate 5 mg oral tablet (14 sources) Opioid Agonist Start: 10-24-2024 End: 11-27-2024 HYDROcodone-Acetami nophen 5-325 MG Oral Tablet 10/24/2024 - 11/27/2024 Provider: Kavita Qureshi CNP Start: 08-04-2024 End: 09-02-2024 HYDROcodone-Acetaminophen 5- 325 MG Oral Tablet 08/04/2024 - 09/02/2024 Provider: Start: 08-04-2024 End: 08-07-2024 HYDROcodone-acetaminophen (N ORCO) 5-325 MG per tablet Indications: Acute midline low back pain without sciatica Take 1 tablet by mouth every 8 hours as needed for Pain for up to 3 days. Intended supply: 3 days. Take lowest dose possible to manage pain Max Daily Amount: 3 tablets 6 tablet 08/04/2024 08/07/2024 Active amitriptyline hydrochloride 25 mg oral tablet (4 sources) Tricyclic Antidepressant Start: 09-19-2024 End: 12-31-2024 Amitriptyline HCl 25 MG Oral Tablet 09/19/2024 - 12/31/2024 Provider: Sally Miles CNP aspirin 81 mg delayed release oral tablet (20 sources) Platelet Aggregation Inhibitor, Nonsteroidal Anti-inflammatory Drug Start: 04-21-2021 End: 09-04-2024 Aspirin 81 MG Oral Tablet Delayed Release 05/06/2022 - 09/02/2024 Provider: Kavita Qureshi CNP Start: 11-01-2018 End: 04-16-2021 take 81 mg by mouth once daily 81 mg, Oral, DAILY, Fir st dose on Mon04/14/21 at 0900 Do not crush or break. calcium chloride 0.0014 meq/ml / potassium chloride 0.004 meq/ml / sodium chloride 0.103 meq/ml / sodium lactate 0.028 meq/ml injectable solution (3 sources) Start: 06-21-2022 End: 06-22-2022 lactated ringers IV solution 1,000 mL 1 ml dexamethasone phosphate 10 mg/ml injection (3 sources) Corticosteroid Start: 08-04-2024 End: 08-04-2024 take 10 mg by mouth once 10 mg, Oral, ONCE, On 08/04/24 at 1100, For 1 dose Start: 10-28-2021 End: 12-09-2021 take 1 tablet by mouth at bedtime Dexamethasone 1 MG tablet Take 1 tablet by mouth at bedtime. Must take at 11PM prior to blood draw at 7-8AM the next morning 1 tablet 0 10/28/2021 12/09/2021 Discontinued diclofenac sodium 0.01 mg/mg topical gel (3 sources) Nonsteroidal Anti-inflammatory Drug Start: 10-24-2024 End: 03-03-2025 Diclofenac Sodium 1% External Gel 10/24/2024 - 03/03/2025 Provider: Kavita Qureshi CNP DULoxetine 30 mg delayed release oral capsule (1 source) Serotonin and Norepinephrine Reuptake Inhibitor Start: 12-31-2024 End: 03-03-2025 DULoxetine HCl 30 MG Oral Capsule Delayed Release Particles 12/31/2024 - 03/03/2025 Provider: Kavita Qureshi CNP empagliflozin 10 mg oral tablet (4 sources) Sodium-Glucose Cotransporter 2 Inhibitor Start: 12-09-2021 End: 04-07-2022 take 1 tablet by mouth once daily before breakfast Empagliflozin (Jardiance) 10 MG tablet Indications: Uncontrolled type 2 diabetes mellitus with hyperglycemia Take 1 tablet by mouth every morning before breakfast. 30 tablet 3 02/03/2022 04/07/2022 Discontinued fenofibrate 160 mg oral tablet (14 sources) Peroxisome Proliferator Receptor alpha Agonist Start: 06-10-2024 End: 03-03-2025 Fenofibrate 160 MG Oral Tablet 06/10/2024 - 03/03/2025 Provider: Juan MALONEP fluconazole 150 mg oral tablet (11 sources) Azole Antifungal Start: 08-08-2024 End: 09-19-2024 Diflucan 150 MG Oral Tablet 08/08/2024 - 09/19/2024 Provider: Kavita Qureshi CNP Start: 12-15-2021 End: 02-03-2022 fluconazole 150 MG tablet Ta ke 1 tablet by mouth as needed (yeast infection). 1 tablet 1 12/15/2021 02/03/2022 Discontinued gabapentin 100 mg oral capsule (20 sources) Anti-epileptic Agent Start: 08-21-2024 End: 09-19-2024 Gabapentin 100 MG Oral Capsule 08/21/2024 - 09/19/2024 Provider: Kavita Qureshi CNP Start: 08-08-2024 End: 09-04-2024 Gabapentin 300 MG Oral Capsu le 08/21/2024 - 08/21/2024 Provider: Kavita Qureshi CNP glipiZIDE 5 mg oral tablet (16 sources) Sulfonylurea Start: 06-22-2022 End: 06-22-2022 take 10 mg by mouth twice daily 10 mg, Oral, 2 TIMES DAILY, First dose on Mon06/22/22 at 1100, Until Discontinued Start: 02-03-2022 End: 09-04-2024 take 1 tablet by mouth in the morning glipiZIDE (GLUCOTROL) 10 MG tablet Take 10 mg by mouth in the morning and 10 mg before bedtime. 02/03/2022 09/04/2024 Discontinued (LIST CLEANUP) Start: 12-09-2021 End: 12-09-2022 take 1 tablet by mouth twice daily glipiZIDE 5 MG tablet regular release Take 1 tablet by mouth 2 times daily. 60 tablet 3 12/09/2021 02/03/2022 Discontinued (Reorder) 250 ml glucose 50 mg/ml / sodium chloride 4.5 mg/ml injection (2 sources) Start: 04-13-2021 End: 04-14-2021 dextrose 5 % and 0.45 % sodium chloride infusion ibuprofen 600 mg oral tablet (20 sources) Nonsteroidal Anti-inflammatory Drug Start: 08-04-2024 End: 09-02-2024 Ibuprofen 600 MG Oral Tablet 08/04/2024 - 09/02/2024 Provider: 3 ml insulin lispro 100 unt/ml pen [...] 3 09/30/2021 10/28/2021 Discontinued (Reorder) Start: 06-14-2021 End: 12-31-2024 Insulin Lispro (1 Unit Dial) 100 UNIT/ML Subcutaneous Solution Pen-injector 07/09/2023 - 07/04/2024 Provider: Start: 04-21-2021 End: 06-14-2021 Insulin Lispro 100 UNIT/ML S ubcutaneous Solution 06/02/2021 - 06/14/2021 Provider: Kavita Qureshi CNP Start: 04-16-2021 End: 09-04-2024 insulin lispro (HUMALOG) 100 UNIT/ML injection vial 0 to 18 units per sliding scale. 5 pen 3 04/16/2021 09/04/2024 Discontinued (LIST CLEANUP) Start: 04-14-2021 End: 04-15-2021 insulin lispro (HUMALOG) inj ection vial 0-9 Units INSULIN LISPRO S C Inject into the skin 3 times daily (with meals) Sliding scale Active INSULIN LISPRO S C Inject into the skin Active insulin regular (HUMULIN R;NOVOLIN R) 100 Units [...] 1 ml ketorolac tromethamine 30 mg/ml cartridge (14 sources) Nonsteroidal Anti-inflammatory Drug, Cyclooxygenase Inhibitor Start: 09-09-2024 End: 09-09-2024 30 mg, IntraVENous, ONCE, 1 dose, On Mon09/09/24 at 0700, Do not administer for more than 5 days. Start: 08-17-2024 End: 08-17-2024 30 mg, IntraMUSCular, ONCE, 1 dose, On 08/17/24 at 1045, Do not administer for more than 5 days. Start: 08-08-2024 Ketorolac Trom ethamine 60 MG/2ML IM SOLN 08/08/2024 Kavita Qureshi CNP Start: 08-04-2024 End: 08-04-2024 60 mg, IntraMUSCular, ONCE, 1 dose, On 08/04/24 at 1100, Do not administer for more than 5 days. Start: 04-13-2021 End: 04-13-2021 ketorolac (TORADOL) injectio n 30 mg Comment on above: Patient tolerated th erapy well. No signs or symptoms of adverse reactions. Patient waited in clinic for 15 minutes after administration. lidocaine 0.05 mg/mg medicated patch (11 sources) Antiarrhythmic, Amide Local Anesthetic Start: 10-24-2024 End: 03-03-2025 Lidocaine 5% External Patch 12/31/2024 - 03/03/2025 Provider: aKvita Qureshi CNP Start: 09-29-2024 End: 10-29-2024 apply 1 dose transdermal route once daily lidocaine 4 % external patch Place 1 patch onto the skin daily 30 patch 09/29/2024 10/29/2024 Active Start: 09-29-2024 1 patch, Trans DERmal, Administer over 12 Hours, DAILY, First dose on 09/29/24 at 1400, Apply patch to left low back. The tube maker's recommendations for the number of patches that can be applied within a 24-hour period varies from 1 to 4 times daily and the duration of application varies from 8 to 24 hours; refer to the tube maker's labeling for product-specific recommendations. Start: 04-14-2021 lidocaine 4 % external patch 1 patch lisinopril 2.5 mg oral tablet (20 sources) Angiotensin Converting Enzyme Inhibitor Start: 04-16-2021 End: 09-04-2024 Lisinopril 2.5 MG Oral Tablet 04/16/2021 - 06/06/2024 Provider: Start: 04-15-2021 lisinopril ([place] INIVIL;ZESTRIL) tablet 2.5 mg Start: 04-14-2021 End: 04-14-2021 lisinopril (PRINIVIL;ZESTRIL ) tablet 10 mg 24 hr metFORMIN hydrochloride 500 mg extended release oral tablet (20 sources) Biguanide Start: 05-24-2021 End: 04-07-2022 take 2 tablets by mouth twice daily metFORMIN-XR 500 MG Tab SR 24 HR Indications: Uncontrolled type 2 diabetes mellitus with hyperglycemia Take 2 tablets by mouth 2 times daily. 120 tablet 3 04/07/2022 Active Start: 04-21-2021 End: 06-06-2024 take 1 tablet by mouth every twenty-four hours metFORMIN HCl ER 500 MG Oral Tablet Extended Release 24 Hour 06/02/2021 - 06/06/2024 Provider: Kavita Qureshi CNP Start: 04-21-2021 End: 04-21-2021 take 1 tablet by mouth every twenty-four hours metFORMIN HCl ER (MOD) 1000 MG Oral Tablet Extended Release 24 Hour 04/21/2021 - 04/21/2021 Provider: Start: 04-16-2021 End: 09-04-2024 take 1 tablet by mouth once daily at breakfast metFORMIN (GLUCOPHAGE-XR) 500 MG extended release tablet Indications: Type 2 diabetes mellitus with complication, without long-term current use of insulin (HCC) Take 1 tablet by mouth daily (with breakfast) 270 tablet 1 04/16/2021 09/04/2024 Discontinued (LIST CLEANUP) Start: 10-04-2018 End: 04-16-2021 take 3 tablets by mouth once daily at breakfast metFORMIN (GLUCOPHAGE-XR) 500 MG extended release tablet Indications: Type 2 diabetes mellitus with complication, without long-term current use of insulin (HCC) TAKE 3 TABLETS BY MOUTH EVERY DAY with BREAKFAST 270 tablet 1 10/04/2018 04/16/2021 Discontinued (REORDER) naloxone hydrochloride 40 mg/ml nasal spray (3 sources) Opioid Antagonist Start: 10-24-2024 End: 03-03-2025 Narcan 4 MG/0.1ML Nasal Liquid 10/24/2024 - 03/03/2025 Provider: Kavita Qureshi CNP 2 ml orphenadrine citrate 30 mg/ml injection (3 sources) Muscle Relaxant Start: 09-29-2024 End: 03-16-2025 inject 1 dose by intramuscular injection once 60 mg, IntraMUSCular, ONCE, 1 dose, On 09/29/24 at 1400 Start: 09-09-2024 End: 09-09-2024 30 mg, IntraVENous, ONCE, 1 dose, On Mon09/09/24 at 0700 Start: 08-04-2024 End: 08-04-2024 inject 1 dose by intramuscular injection once 60 mg, IntraMUSCular, ONCE, 1 dose, On 08/04/24 at 1100 pioglitazone 15 mg oral tablet (20 sources) Peroxisome Proliferator Receptor alpha Agonist, Peroxisome Proliferator Receptor gamma Agonist, Thiazolidinedione Start: 06-22-2022 End: 06-22-2022 take 30 mg by mouth once daily 30 mg, Oral, DAILY, First dose on Mon06/22/22 at 1130, Until Discontinued Start: 08-17-2021 End: 09-04-2024 take 1 tablet by mouth once daily pioglitazone (ACTOS) 30 MG tablet TAKE 1 TABLET BY MOUTH DAILY 01/31/2022 09/04/2024 Discontinued (LIST CLEANUP) potassium bicarbonate 25 meq effervescent oral tablet [...] with overfill 535 mL (total volume) IVPB predniSONE 20 mg oral tablet (12 sources) Start: 08-04-2024 End: 09-02-2024 predniSONE 20 MG Oral Tablet 08/04/2024 - 09/02/2024 Provider: Start: 08-04-2024 End: 08-09-2024 take 3 tablets by mouth once daily predniSONE (DELTASONE) 20 MG tablet Take 3 tablets by mouth daily for 5 days 15 tablet 08/04/2024 08/09/2024 Active 50 ml sodium chloride 9 mg/m l injection (15 sources) Start: 02-26-2025 End: 02-26-2025 1,000 mL (13.7 mL/kg), IntraVENous, at 2,000 mL/hr, Administer over 0.5 Hours, ONCE, On Mon02/26/25 at 1315, For 1 dose Start: 09-09-2024 End: 09-09-2024 take 1 dose intravenously once 1,000 mL (12.5 mL/kg), IntraVENous, at 1,000 mL/hr, Administer over 1 Hours, ONCE, On Mon09/09/24 at 0500, For 1 dose, For IV Hydration Start: 09-04-2024 End: 09-04-2024 take 1 dose intravenously once 1,000 mL (12.3 mL/kg), IntraVENous, at 1,000 mL/hr, Administer over 1 Hours, ONCE, On Mon09/04/24 at 0945, For 1 dose, For IV Hydration Start: 09-02-2024 End: 09-02-2024 1,000 mL (12.5 mL/kg), Intra VENous, at 1,000 mL/hr, Administer over 1 Hours, ONCE, On Mon09/02/24 at 1845, For 1 dose Start: 08-21-2024 End: 08-21-2024 1,000 mL (12 mL/kg), IntraVE Nous, at 983.6 mL/hr, Administer over 61 Minutes, ONCE, On Mon08/21/24 at 1945, For 1 dose, For adult patients weighing > 55 kg (120 lbs.) and less than Start: 08-21-2024 End: 08-21-2024 500 mL (5.99 mL/kg), IntraVE Nous, at 967.7 mL/hr, Administer over 31 Minutes, ONCE, On Mon08/21/24 at 2100, For 1 dose, For adult patients weighing > 55 kg (120 lbs.) and less than Start: 07-05-2022 End: 07-05-2022 0.9 % sodium chloride bolus Start: 06-21-2022 End: 06-22-2022 sodium chloride 0.9% IV solu tion Start: 06-21-2022 End: 06-21-2022 sodium chloride 0.9% IV solu tion 1,000 mL Start: 04-13-2021 End: 04-13-2021 0.9 % sodium chloride bolus 5 ml sodium phosphate, dibasic 142 mg/ml / sodium phosphate, monobasic 276 mg/ml injection (1 source) Start: 04-14-2021 End: 04-14-2021 sodium phosphates 15 MMOLE/5ML injection traMADol hydrochloride 50 mg oral tablet (2 sources) Opioid Agonist Start: 11-27-2024 End: 12-31-2024 traMADol HCl 50 MG Oral Tablet 11/27/2024 - 12/31/2024 Provider: Kavita Qureshi [employer] Problems Active Problems Problem Classification Problem Date Documented Date Episodic/Chronic Asthma (20 sources) Asthma; Translations: [Unspecified asthma, uncomplicated] 10-13-2010 [...] 04-21-2021 10-13-2010 Chronic Disorders of lipid metabolism (20 sources) Hyperlipidemia; Translations: [Hyperlipidemia, unspecified] Onset: 08-17-2021 10-13-2010 Chronic Fluid and electrolyte disorders (12 sources) Metabolic acidosis; Translations: [Metabolic acidosis] Onset: 06-22-2022 Episodic Genitourinary symptoms and ill-defined conditions (1 source) Dysuria; Translations: [Dysuria] Episodic Nausea and vomiting (2 sources) Nausea and vomiting; Translations: [Nausea with vomiting, unspecified] Onset: 02-26-2025 02-26-2025 Episodic Other acquired deformities (2 sources) Spondylolisthesis; Translations: [Spondylolisthesis, thoracic region] 12-06-2024 Episodic Other acquired deformities (1 source) Spondylolisthesis, thoracic region; Translations: [Spondylolisthesis, thoracic region] Onset: 12-06-2024 Episodic Other endocrine disorders (1 source) Hypercortisolism; 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, unspecified] Chronic Other nutritional; endocrine; and metabolic disorders (14 sources) Finding of body mass index; Translations: [Body mass index (observable entity)] Onset: 05-18-2021 Chronic Other nutritional; endocrine; and metabolic disorders (20 sources) Obese class I; Translations: [Obesity, unspecified] Onset: 08-03-2021 Chronic Other nutritional; endocrine; and metabolic disorders (20 sources) Finding of body mass index; Translations: [Body mass index (observable entity)] Onset: 04-21-2021 Episodic Other upper respiratory infections (1 source) Acute sinusitis; Translations: [Acute sinusitis, unspecified] Episodic Residual codes; unclassified (15 sources) Sleep apnea; Translations: [Sleep apnea, unspecified] Onset: 06-02-2021 06-02-2021 Chronic Residual codes; unclassified (20 sources) Blood group A Rh(D) positive; Translations: [...] Acidosis, unspecified; Translations: [Acidosis, unspecified] Onset: 06-22-2022 Unclassified (1 source) low BP Onset: 08-21-2024 Unclassified (1 source) Low back pain, unspecified; Translations: [Low back pain, unspecified] Onset: 08-04-2024 Urinary tract infections (1 source) Acute cystitis; Translations: [Acute cystitis with hematuria] Episodic Past or Other Problems Problem Classification Problem Date Documented Date Episodic/Chronic Abdominal pain (2 sources) Generalized abdominal pain; Translations: [Generalized abdominal pain] Onset: 08-30-2024 08-30-2024 Episodic Cardiac dysrhythmias (8 sources) Tachycardia; Translations: [Tachycardia, unspecified] Onset: 08-21-2024 08-21-2024 Episodic Heart valve disorders (3 sources) Heart murmur; Translations: [Cardiac murmur, unspecified] Onset: 10-17-2024 10-17-2024 Episodic Other connective tissue disease (2 sources) Muscle weakness (generalized); Translations: [Muscle weakness (generalized)] Onset: 10-11-2024 Episodic Other screening for suspected conditions (not mental disorders or infectious disease) (20 sources) Electrocardiogram abnormal; Translations: [Abnormal electrocardiogram [ECG] [EKG]] Onset: 08-14-2012 Resolved: 10-21-2018 10-21-2018 Episodic Other upper respiratory disease (20 sources) Allergic rhinitis; Translations: [Allergic rhinitis, unspecified] Resolved: 10-21-2018 10-21-2018 Chronic Spondylosis; intervertebral disc disorders; other back problems (20 sources) Acute low back pain; Translations: [Acute midline low back pain without sciatica] Onset: 08-12-2024 08-04-2024 Episodic Sprains and strains (4 sources) Strain of thoracic region; Translations: [Strain of muscle and tendon of back wall of thorax, initial encounter] Onset: 08-17-2024 08-17-2024 Episodic Substance-related disorders (20 sources) Nicotine dependence; Translations: [Nicotine dependence, unspecified, [...] Acidosis, unspecified; Translations: [Acidosis, unspecified] Onset: 06-21-2022 Viral infection (20 sources) Condyloma acuminatum; Translations: [Anogenital (venereal) warts] Onset: 10-17-2012 Resolved: 10-21-2018 10-21-2018 Episodic Results Test Name Value Interpretation Reference Range Facility CBC with Auto Differentialon 02-26-2025 Basophils (Bld) [#/Vol] 0.05 10*3/uL [facility] Basophils/100 WBC (Bld) 1 % 0 - 2 % [facility] Eosinophils (Bld) [#/Vol] 0.06 10*3/uL [facility] Eosinophils/100 WBC (Bld) 1 % 0 - 5 % [facility] Erythrocyte distribution width (RBC) [Ratio] 12.4 % 12.1 - 15.2 % [facility] Hematocrit (Bld) [Volume fraction] 47.7 % High 36.0 - 46.0 % [facility] Hemoglobin (Bld) [Mass/Vol] 16.3 g/dL High 12.0 - 16.0 g/dL [facility] Immature granulocytes (Bld) [#/Vol] 0.01 10*3/uL [facility] Immature granulocytes/100 WBC (Bld) 0 % 0 - 5 % [facility] Interpretation and review of laboratory results Abnormal [facility] Lymphocytes/100 WBC (Bld) 30 % 15 - 40 % [facility] Lymphocytes/100 WBC (Bld) 2.35 % [facility] MCH (RBC) [Entitic mass] 28.3 pg 26.0 - 34.[address] [facility] MCHC (RBC) [Mass/Vol] 34.2 g/dL 31.0 - 37.0 g/dL [facility] MCV (RBC) [Entitic vol] 82.8 fL 80.0 - 100.[address] [facility] Monocytes/100 WBC (Bld) 8 % 4 - 8 % [facility] Monocytes/100 WBC (Bld) 0.65 % [facility] Neutrophils/100 WBC (Bld) 60 % 47 - 75 % [facility] Platelet mean volume (Bld) [Entitic vol] 9.7 fL 6.0 - 12.[address] [facility] Platelets (Bld) [#/Vol] 382 10*3/uL [facility] RBC (Bld) [#/Vol] 5.76 10*6/uL High 4.00 - 5.2 0 m/uL [facility] Segmented neutrophils/100 WBC (Bld) 4.72 % [facility] WBC other (Bld) [#/Vol] 7.8 [facility] CBC with Diffon 02-26-2025 Abs. Basophil 0.05 k/uL Normal 0.00-0.20 [facility] Comment on above: Performed By: #### L IP, MG, CDP, TROPI, CP, TSH ####[facility] [id number] [place] [address] Lab Director: Miller Shirley MD#### FT4 ####[address] [place] [address] Lab Director: Jin Louise MD Abs.Imm.Granulocyte 0.01 k/uL Normal 0.00-0.30 [facility] Comment on above: Performed By: #### L IP, MG, CDP, TROPI, CP, TSH ####[facility] [id number] [place], [place] [address])[phone] Director: Miller Shirley MD#### FT4 ####[place] [address] Lab Director: Jin Louise MD Abs.Neutrophil (Seg) 4.72 k/uL Normal 2.5-7.0 [facility] Comment on above: Performed By: #### L IP, MG, CDP, TROPI, CP, TSH ####[facility] Enb[address] [place], [place] [address])[phone] Director: Miller Shirley MD#### FT4 ####[place], [place] [address])[phone] Director: Jin Louise MD Basophils/100 WBC (Bld) 1 % Normal 0-2 [facility] Comment on above: Performed By: #### L IP, MG, CDP, TROPI, CP, TSH ####[facility] Hzk2649 [place] [address] Lab Director: Miller Shirley MD#### FT4 ####[place] [address] Lab Director: Jin Louise MD Eosinophils (Bld) [#/Vol] 0.06 10*3/uL Normal 0.00-0.40 [facility] Comment on above: Performed By: #### L IP, MG, CDP, TROPI, CP, TSH ####[facility] Bbp27[address] [place] [address] Lab Director: Miller Shirley MD#### FT4 ####[place] [address] Lab Director: Jin Louise MD Eosinophils/100 WBC (Bld) 1 % Normal 0-5 [facility] Comment on above: Performed By: #### L IP, MG, CDP, TROPI, CP, TSH ####[facility] Ylf7638 [place] [address] lab Director: Miller Shirley MD#### FT4 ####[address] [phone] Lab Director: Jin Louise MD Erythrocyte distribution width (RBC) [Ratio] 12.4 % Normal 12.1-15.2 [facility] Comment on above: Performed By: #### L IP, MG, CDP, TROPI, CP, TSH ####[facility] [id number] [place], [place] [id number] lab Director: Miller Shirley MD#### FT4 ####[address] [address] lab Director: Jin Louise MD Hematocrit (Bld) [Volume fraction] 47.7 % High 36.0-46.0 [facility] Comment on above: Performed By: #### L IP, MG, CDP, TROPI, CP, TSH ####[facility] Zlh[address] [place], [place] [id number] Lab Director: Miller Shirley MD#### FT4 ####[address] [address] Lab Director: Jin Louise MD Hemoglobin (Bld) [Mass/Vol] 16.3 g/dL High 12.0-16.0 [facility] Comment on above: Performed By: #### L IP, MG, CDP, TROPI, CP, TSH ####[facility] Vwe[address] [place], [place] [id number] Lab Director: Miller Shirley MD#### FT4 ####[address] [place] [address] Lab Director: Jin Louise MD Immature granulocytes/100 WBC (Bld) 0 % Normal 0-5 [facility] Comment on above: Performed By: #### L IP, MG, CDP, TROPI, CP, TSH ####[facility] Ava[address] [place], [place] [address])[phone] Director: Miller Shirley MD#### FT4 ####[place] [address] Lab Director: Jin oLuise MD Lymphocytes (Bld) [#/Vol] 2.35 10*3/uL Normal 1.00-4.80 [facility] Comment on above: Performed By: #### L IP, MG, CDP, TROPI, CP, TSH ####[facility] Mcq[address] [place], [place] [address])[phone] Director: Miller Shirley MD#### FT4 ####[place] [address] Lab Director: Jin Louise MD Lymphocytes/100 WBC (Bld) 30 % Normal 15-40 [facility] Comment on above: Performed By: #### L IP, MG, CDP, TROPI, CP, TSH ####[facility] Iac[address] [place], [place] [address])[phone] Director: Miller Shirley MD#### FT4 ####[place] [address] Lab Director: Jin Louise MD MCH (RBC) [Entitic mass] 28.3 pg Normal 26.0-34.0 [facility] Comment on above: Performed By: #### L IP, MG, CDP, TROPI, CP, TSH ####[facility] Ggm5352 [place] [address] Lab Director: Miller Shirley MD#### FT4 ####[address] [address] Lab Director: Jin Louise MD MCHC (RBC) [Mass/Vol] 34.2 g/dL Normal 31.0-37.0 [facility] Comment on above: Performed By: #### L IP, MG, CDP, TROPI, CP, TSH ####[facility] [id number] Lab Director: Miller Shirley MD#### FT4 ####[place] [address] Lab Director: Jin Louise MD MCV (RBC) [Entitic vol] 82.8 fL Normal 80.0-100.0 [facility] Comment on above: Performed By: #### L IP, MG, CDP, TROPI, CP, TSH ####[facility] [address] [place], [place] [address])[phone] Director: Miller hSirley MD#### FT4 ####[place], [place] [address])[phone] Director: Jin Louise MD Monocytes (Bld) [#/Vol] 0.65 10*3/uL Normal 0.00-1.00 [facility] Comment on above: Performed By: #### L IP, MG, CDP, TROPI, CP, TSH ####[facility] [address] Lab Director: Miller Shirley MD#### FT4 ####[place] [address] Lab Director: Jin Louise MD Monocytes/100 WBC (Bld) 8 % Normal 4-8 [facility] Comment on above: Performed By: #### L IP, MG, CDP, TROPI, CP, TSH ####[facility] [address] [place], [place] [id number])[phone] Director: Miller Shirley MD#### FT4 ####[address] [place], [place] [id number])[phone] Director: Jin Louise MD Neutrophil (Seg) 60 % Normal 47-75 [facility] Comment on above: Performed By: #### L IP, MG, CDP, TROPI, CP, TSH ####[facility] Hcv3433 [place] [address] Lab Director: Miller Shirley MD#### FT4 ####[address] [phone] Director: Jin Louise MD Platelet mean volume (Bld) [Entitic vol] 9.7 fL Normal 6.0-12.0 [facility] Comment on above: Performed By: #### L IP, MG, CDP, TROPI, CP, TSH ####[facility] [id number] [place], [place] [id number])[phone] Director: Miller Shirley MD#### FT4 ####[address] [phone] Director: Jin Louise MD Platelets (Bld) [#/Vol] 382 10*3/uL Normal 140-450 [facility] Comment on above: Performed By: #### L IP, MG, CDP, TROPI, CP, TSH ####[facility] [address]ms[address] [place], [place] [id number])[phone] Director: Miller Shirley MD#### FT4 ####[address] [place], [place] [phone] Director: Jin Louise MD RBC (Bld) [#/Vol] 5.76 10*6/uL High 4.00-5.20 [facility] Comment on above: Performed By: #### L IP, MG, CDP, TROPI, CP, TSH ####[facility] [address] [place] [address] Lab Director: Miller Shirley MD#### FT4 ####[facility] [address] [place], [place] 7056708 Lab Director: Jin Louise MD WBC (Bld) [#/Vol] 7.8 10*3/uL Normal 3.5-11.0 [facility] Comment on above: Performed By: #### L IP, MG, CDP, TROPI, CP, TSH ####[facility] [address] [place] [address] lab Director: Miller Shirley MD#### FT4 ####[address] [place] [address] Lab Director: Jin Louise MD Comp Metabolic Profon 2024 Albumin [Mass/Vol] 4.6 g/dL Normal 3.5-5.2 [facility] Comment on above: Performed By: #### L IP, MG, CDP, TROPI, CP, TSH ####[facility] Igp[address] [place] [address] Lab Director: Miller Shirley MD#### FT4 ####[address] [place] [address] Lab Director: Jin Louise MD Albumin/Glob Ratio 1.4 Normal 1.0-2.5 [facility] Comment on above: Performed By: #### L IP, MG, CDP, TROPI, CP, TSH ####[facility] [address] [place], [place] [id number] Lab Director: Miller Shirley MD#### FT4 ####[address] [place] [address] Lab Director: Jin Louise MD Alkaline Phos 115 U/L High 35-104 [facility] Comment on above: Performed By: #### L IP, MG, CDP, TROPI, CP, TSH ####[facility] [address]qw[address] [place], [place] 9826090 Lab Director: Miller Shirley MD#### FT4 ####[address] [place] [address] Lab Director: Jin Louise MD ALT [Catalytic activity/Vol] 15 U/L Normal 5-33 [facility] Comment on above: Performed By: #### L IP, MG, CDP, TROPI, CP, TSH ####[facility] Ytt0281 [place] [address]([facility])[phone] Director: Miller Shirley MD#### FT4 ####[address] [address] Lab Director: Jin Louise MD Anion gap [Moles/Vol] 16 mmol/L Normal 9-17 [facility] Comment on above: Performed By: #### L IP, MG, CDP, TROPI, CP, TSH ####[facility] X[address] [place], [place] 1867690 Lab Director: Miller Shirley MD#### FT4 ####[address] [place] [address] Lab Director: Jin Louise MD AST [Catalytic activity/Vol] 17 U/L Normal <32 [facility] Comment on above: Performed By: #### L IP, MG, CDP, TROPI, CP, TSH ####[facility] [address]2548 [place], [place] 8321490 Lab Director: Miller Shirley MD#### FT4 ####[facility] [place] [address] Lab Director: Jin Louise MD Bilirubin [Mass/Vol] 0.8 mg/dL Normal 0.3-1.2 [facility] Comment on above: Performed By: #### L IP, MG, CDP, TROPI, CP, TSH ####[facility] [address] [place], [place] [address])[phone] Director: Miller Shirley MD#### FT4 ####[address] [place] [address] Lab Director: Jin Louise MD Calcium [Mass/Vol] 10.0 mg/dL Normal 8.6-10.4 [facility] Comment on above: Performed By: #### L IP, MG, CDP, TROPI, CP, TSH ####[facility] [address] [place], [place] [address])[phone] Director: Miller Shirley MD#### FT4 ####[address] [address] Lab Director: Jin Louise MD Chloride [Moles/Vol] 93 mmol/L Low 98-107 [facility] Comment on above: Performed By: #### L IP, MG, CDP, TROPI, CP, TSH ####[facility] [address])[phone] Director: Miller Shirley MD#### FT4 ####[address] [address] Lab Director: Jin Louise MD CO2 [Moles/Vol] 24 mmol/L Normal 20-31 [facility] Comment on above: Performed By: #### L IP, MG, CDP, TROPI, CP, TSH ####[facility] [address] lab Director: Miller Shirley MD#### FT4 ####[facility] [place], [place] 8337208 Lab Director: Jin Louise MD Creatinine [Mass/Vol] 0.6 mg/dL Normal 0.5-0.9 [facility] Comment on above: Performed By: #### L IP, MG, CDP, TROPI, CP, TSH ####[facility] K[address]8 [place] [address]([facility])[phone] Director: Miller hSirley MD#### FT4 ####[address] [place], [place] 3984908 Lab Director: Jin Louise MD GFR/1.73 sq M.predicted among non-blacks MDRD (S/P/Bld) [Vol rate/Area] mL/min/{1.73_m2} Normal >60 [facility] Comment on above: Result Comment: These results are not intended for [...] affects renal tubular secretion. Performed By: #### L IP, MG, CDP, TROPI, CP, TSH ####[facility] [address]ds[address] [place], [place] [address])[phone] Director: Miller Shirley MD#### FT4 ####[address] [place], [place] 6819608 Lab Director: Jin Louise MD Glucose [Mass/Vol] 293 mg/dL High 70-99 [facility] Comment on above: Performed By: #### L IP, MG, CDP, TROPI, CP, TSH ####[facility] [address]25[address] [place], [place] 5356890 lab Director: Miller Shirley MD#### FT4 ####[address] [place], [place] 5211808 Lab Director: Jin Louise MD Potassium [Moles/Vol] 4.1 mmol/L Normal 3.7-5.3 [facility] Comment on above: Performed By: #### L IP, MG, CDP, TROPI, CP, TSH ####[facility] [address] [place], [place] 9802990 lab Director: Miller Shirley MD#### FT4 ####[address] [address] Lab Director: Jin Louise MD Protein [Mass/Vol] 7.9 g/dL Normal 6.4-8.3 [facility] Comment on above: Performed By: #### L IP, MG, CDP, TROPI, CP, TSH ####[facility] [address]qr[address] [place], [place] 6122490 lab Director: Miller Shirley MD#### FT4 ####[address] [address] Lab Director: Jin Louise MD Sodium [Moles/Vol] 133 mmol/L Low 135-144 [facility] Comment on above: Performed By: #### L IP, MG, CDP, TROPI, CP, TSH ####[facility] [address] [place], [place] 7693490 Lab Director: Miller Shirley MD#### FT4 ####[address] [address] Lab Director: Jin Louise MD Urea nitrogen [Mass/Vol] 15 mg/dL Normal 6-20 [facility] Comment on above: Performed By: #### L IP, MG, CDP, TROPI, CP, TSH ####[facility] [address] [place] [address] Lab Director: Miller Shirley MD#### FT4 ####[facility] [address] [place] [address] Lab Director: Jin Louise MD [facility] Metabolic Pane [facility] 02-26-2025 Albumin [Mass/Vol] 4.6 g/dL 3.5 - 5.2 g/dL [facility] Albumin/Globulin [Mass ratio] 1.4 {ratio} 1.0 - 2.[address] [facility] ALP [Catalytic activity/Vol] 115 U/L High 35 - 104 U/L [facility] ALT [Catalytic activity/Vol] 15 U/L 5 - 33 U/L [facility] Anion gap [Moles/Vol] 16 mmol/L 9 - 17 mmol/L [facility] AST [Catalytic activity/Vol] 17 U/L NINF - 32 U/L [facility] Bilirubin [Mass/Vol] 0.8 mg/dL 0.3 - 1 .2 mg/dL [facility] Calcium [Mass/Vol] 10.0 mg/dL 8.6 - 10. 4 mg/dL [facility] Chloride [Moles/Vol] 93 mmol/L Low 98 - 10 7 mmol/L [facility] CO2 [Moles/Vol] 24 mmol/L 20 - 31 mmol/L [facility] Creatinine [Mass/Vol] 0.6 mg/dL 0.5 - 0.9 mg/dL [facility] Est, Glom Filt Rate - PINF [facility] Comment on above: These results are not intended for use [...] that affects renal tubular secretion. Glucose [Mass/Vol] 293 mg/dL High 70 - 99 mg/dL [facility] Potassium [Moles/Vol] 4.1 mmol/L 3.7 - 5.3 mmol/L [facility] Protein [Mass/Vol] 7.9 g/dL 6.4 - 8.3 g/dL [facility] Sodium [Moles/Vol] 133 mmol/L Low 135 - 144 mmol/L [facility] Urea nitrogen [Mass/Vol] 15 mg/dL 6 - 20 mg/dL [facility] Laboratory - Chemistry and C hemistry - challengeon 02-26-2025 Albumin [Mass/Vol] 4.6 g/dL (3.5-5.2 ) [facility] Comment on above: Note: Responsible Ob banquet food server: [email or web address] AUTOFILE ([id number]) ALT [Catalytic activity/Vol] 15 U/L (5-33 ) [facility] Comment on above: Note: Responsible Ob banquet food server: [email or web address] AUTOFILE ([id number]) Anion gap [Moles/Vol] 16 mmol/L (9-17 ) [facility] Comment on above: Note: Responsible Ob banquet food server: [email or web address] AUTOFILE ([id number]) AST [Catalytic activity/Vol] 17 U/L (<32 ) [facility] Comment on above: Note: Responsible Ob banquet food server: [email or web address] AUTOFILE ([id number]) Bilirubin [Mass/Vol] 0.8 mg/dL (0.3-1.2 ) [facility] Comment on above: Note: Responsible Ob banquet food server: [email or web address] AUTOFILE ([id number]) Calcium [Mass/Vol] 10.0 mg/dL (8.6-10.4 ) [facility] Comment on above: Note: Responsible Ob banquet food server: [email or web address] AUTOFILE ([id number]) Chloride [Moles/Vol] 93 mmol/L Low (98-107 ) [facility] Comment on above: Note: Responsible Ob banquet food server: [email or web address] AUTOFILE ([id number]) CO2 [Moles/Vol] 24 mmol/L (20-31 ) [facility] Comment on above: Note: Responsible Ob banquet food server: [email or web address] AUTOFILE ([id number]) Creatinine [Mass/Vol] 0.6 mg/dL (0.5-0.9 ) [facility] Comment on above: Note: Responsible Ob banquet food server: [email or web address] AUTOFILE ([id number]) GFR/1.73 sq M.predicted among non-blacks MDRD (S/P/Bld) [Vol rate/Area] mL/min/{1.73_m2} (>60 ) [facility] Comment on above: Note: These results are not intended for use in patients <18 years of age.eGFR results are calculated without a race factor using the 2020 CKD-EPIequation.Careful clinical correlation is recommended, particularly when comparing toresults calculated using previous equations.The CKD-EPI equation is less accurate in patients with extremes of muscle mass,extra-renal metabolism of creatine, excessive creatine ingestion, or followingtherapy that affects renal tubular secretion.Responsible Observer: [email or web address] AUTOFILE ([id number]) Glucose [Mass/Vol] 293 mg/dL High (70-99 ) [facility] Comment on above: Note: Responsible Ob banquet food server: [email or web address] AUTOFILE ([id number]) Lipase [Catalytic activity/Vol] 96 U/L High (13-60 ) [facility] Comment on above: Note: Responsible Ob banquet food server: [email or web address] AUTOFILE ([id number]) Magnesium [Mass/Vol] 2.1 mg/dL (1.6-2.6 ) [facility] Comment on above: Note: Responsible Ob banquet food server: [email or web address] AUTOFILE ([id number]) Potassium [Moles/Vol] 4.1 mmol/L (3.7-5.3 ) [facility] Comment on above: Note: Responsible Ob banquet food server: [email or web address] AUTOFILE ([id number]) Protein [Mass/Vol] 7.9 g/dL (6.4-8.3 ) [facility] Comment on above: Note: Responsible Ob banquet food server: [email or web address] AUTOFILE ([id number]) Sodium [Moles/Vol] 133 mmol/L Low (135-144 ) [facility] Comment on above: Note: Responsible Ob banquet food server: [email or web address] AUTOFILE ([id number]) Urea nitrogen [Mass/Vol] 15 mg/dL (6-20 ) [facility] Comment on above: Note: Responsible Ob banquet food server: [email or web address] AUTOFILE ([id number]) Laboratory - Hematology and Cell countson 02-26-2025 Basophils/100 WBC (Bld) 1 % (0-2 ) [facility] Comment on above: Note: Responsible Ob banquet food server: LIVE AUTOFILE ([id number]) Eosinophils (Bld) [#/Vol] 0.06 10*3/uL (0.00-0.40 ) [facility] Comment on above: Note: Responsible Ob banquet food server: LIVE AUTOFILE ([id number]) Eosinophils/100 WBC (Bld) 1 % (0-5 ) [facility] Comment on above: Note: Responsible Ob banquet food server: LIVE AUTOFILE ([id number]) Erythrocyte distribution width (RBC) [Ratio] 12.4 % (12.1-15.2 ) [facility] Comment on above: Note: Responsible Ob banquet food server: LIVE AUTOFILE (30627) Hematocrit (Bld) [Volume fraction] 47.7 % High (36.0-46.0 ) [facility] Comment on above: Note: Responsible Ob banquet food server: LIVE AUTOFILE (03181) Hemoglobin (Bld) [Mass/Vol] 16.3 g/dL High (12.0-16.0 ) [facility] Comment on above: Note: Responsible Ob banquet food server: LIVE AUTOFILE (49127) Immature granulocytes/100 WBC (Bld) 0 % (0-5 ) [facility] Comment on above: Note: Responsible Ob banquet food server: LIVE AUTOFILE (92684) Lymphocytes (Bld) [#/Vol] 2.35 10*3/uL (1.00-4.80 ) [facility] Comment on above: Note: Responsible Ob banquet food server: LIVE AUTOFILE (47996) Lymphocytes/100 WBC (Bld) 30 % (15-40 ) [facility] Comment on above: Note: Responsible Ob banquet food server: LIVE AUTOFILE (29957) MCH (RBC) [Entitic mass] 28.3 pg (26.0-34.0 ) [facility] Comment on above: Note: Responsible Ob banquet food server: LIVE AUTOFILE (07654) MCHC (RBC) [Mass/Vol] 34.2 g/dL (31.0- 37.0 ) [facility] Comment on above: Note: Responsible Ob banquet food server: LIVE AUTOFILE (94720) MCV (RBC) [Entitic vol] 82.8 fL (80.0-100.0 ) [facility] Comment on above: Note: Responsible Ob banquet food server: LIVE AUTOFILE (13134) Monocytes (Bld) [#/Vol] 0.65 10*3/uL (0.00-1.00 ) [facility] Comment on above: Note: Responsible Ob banquet food server: LIVE AUTOFILE (84003) Monocytes/100 WBC (Bld) 8 % (4-8 ) [facility] Comment on above: Note: Responsible Ob banquet food server: LIVE AUTOFILE (85657) Platelet mean volume (Bld) [Entitic vol] 9.7 fL (6.0-12.0 ) [facility] Comment on above: Note: Responsible Ob banquet food server: LIVE AUTOFILE (47228) Platelets (Bld) [#/Vol] 382 10*3/uL (140-450 ) [facility] Comment on above: Note: Responsible Ob banquet food server: LIVE AUTOFILE (02833) RBC (Bld) [#/Vol] 5.76 10*6/uL High (4.00-5.20 ) [facility] Comment on above: Note: Responsible Ob banquet food server: LIVE AUTOFILE (56969) Segmented neutrophils/100 WBC (Bld) 60 % (47-75 ) [facility] Comment on above: Note: Responsible Ob banquet food server: LIVE AUTOFILE (57588) WBC (Bld) [#/Vol] 7.8 10*3/uL (3.5-11.0 ) [facility] Comment on above: Note: Responsible Ob banquet food server: LIVE AUTOFILE (97887) Lipaseon 02-26-2025 Lipase [Catalytic activity/Vol] 96 U/L High 13 - 60 U/L [facility] Lipase [Catalytic activity/Vol] 96 U/L High 13-60 [facility] Comment on above: Performed By: #### L IP, MG, CDP, TROPI, CP, TSH ####[facility] [address] [place] [address] lab Director: Miller Shirley MD#### FT4 ####[address] [id number] lab Director: Jin Louise MD Magnesiumon 02-26-2025 Magnesium [Mass/Vol] 2.1 mg/dL 1.6 - 2 .6 mg/dL [facility] Magnesium [Mass/Vol] 2.1 mg/dL Normal 1.6-2.6 [facility] Comment on above: Performed By: #### L IP, MG, CDP, TROPI, CP, TSH ####[facility] [id number] [place], [place] [id number] lab Director: Miller Shirley MD#### FT4 ####[facility] [address] [place], [place] [id number] lab Director: Jin Louise MD No Panel Informationon 02-26 Interpretation and review of laboratory results Abnormal [facility] Abs. Basophil 0.05 k/uL (0.00-0.20 ) [facility] Comment on above: Note: Responsible Ob banquet food server: LIVE AUTOFILE (92206) Abs.Imm.Granulocyte 0.01 k/uL (0.00-0. 30 ) [facility] Comment on above: Note: Responsible Ob banquet food server: LIVE AUTOFILE (38445) Abs.Neutrophil (Seg) 4.72 k/uL (2.5-7.0 ) [facility] Comment on above: Note: Responsible Ob banquet food server: LIVE AUTOFILE (40354) Albumin/Glob Ratio 1.4 (1.0-2.5 ) [facility] Comment on above: Note: Responsible Ob banquet food server: [email or web address] AUTOFILE (5977) Alkaline Phos 115 U/L High (35-104 ) [facility] Comment on above: Note: Responsible Ob banquet food server: [email or web address] AUTOFILE (5977) Reported Physicians See Note [facility] Comment on above: Note: Reported Physi cians:Ordering: BEKAH LANAttending: BEKAH LANReferring: Kavita Qureshi Thyroid Stim. Horm. 0.75 uIU/mL (0.27-4. 20 ) [facility] Comment on above: Note: Responsible Ob banquet food server: [email or web address] AUTOFILE (5533) Thyroxine, Free 1.7 ng/dL (0.9-1.7 ) [facility] Comment on above: Note: Responsible Ob banquet food server: [id number] AUTOFILE (6737) Troponin, High Sens 18 ng/L High (0-14 ) [facility] Comment on above: Note: High Sensitivi ty Troponin values cannot be compared with other Troponinmethodologies.Responsible Observer: TWPUR1 AUTOFILE ([id number]) TSHon 02-26-2025 TSH Qn 0.75 m[IU]/L [facility] Thyroid Stim. Horm.on 2024 Thyroid Stim. Horm. 0.75 uIU/mL Normal 0.27-4.20 [facility] Comment on above: Performed By: #### L IP, MG, CDP, TROPI, CP, TSH ####[facility] [address] [place] [address] Lab Director: Miller Shirley MD#### FT4 ####[id number] [place], [place] [id number] lab Director: Jin Louise MD Thyroxine, Freeon 02-26-2025 Thyroxine, Free 1.7 ng/dL Normal 0.9-1.7 [facility] Comment on above: Performed By: #### L IP, MG, CDP, TROPI, CP, TSH ####[facility] [address] [place] [address] Lab Director: Miller Shirley MD#### FT4 ####[address] [place], [place] [id number] Lab Director: Jin Louise MD Troponinon 02-26-2025 Troponin I.cardiac High sensitivity method [Mass/Vol] 18 ng/L High 0 - 14 ng/L [facility] Comment on above: High Sensitivity Tro ponin values cannot be compared with other Troponin methodologies. Troponin, High Sens 18 ng/L High 0-14 [facility] Comment on above: Result Comment: High Sensitivity Troponin values cannot be compared with other Troponin methodologies. Performed By: #### L IP, MG, CDP, TROPI, CP, TSH ####[facility] [address] [place] [address] lab Director: Miller Shirley MD#### FT4 ####[facility] [address] [place] [address] lab Director: Jin Louise MD MRI LUMBAR SPINE WO CONTRAST on 12-09-2024 MRI LUMBAR SPINE WO CONTRAST EXAM: MRI LUMBAR SPINE WO CONTRAST COMPARISON: [...] evident. 3. No acute or healing fracture. Interpreted by: Juan Denney MD Signed by: Juan Denney MD 12/09/24 Final result Normal [facility] Basic Metabolic Panelon 02-2 Anion gap [Moles/Vol] 13 mmol/L 9 - 17 mmol/L [facility] Calcium [Mass/Vol] 9.8 mg/dL 8.6 - 10. 4 mg/dL [facility] Chloride [Moles/Vol] 95 mmol/L Low 98 - 10 7 mmol/L [facility] CO2 [Moles/Vol] 26 mmol/L 20 - 31 mmol/L [facility] Creatinine [Mass/Vol] 0.5 mg/dL 0.5 - 0.9 mg/dL [facility] Est, Glom Filt Rate - PINF [facility] Comment on above: These results are not intended for use [...] that affects renal tubular secretion. Glucose [Mass/Vol] 215 mg/dL High 70 - 99 mg/dL [facility] Potassium [Moles/Vol] 4.2 mmol/L 3.7 - 5.3 mmol/L [facility] Sodium [Moles/Vol] 134 mmol/L Low 135 - 144 mmol/L [facility] Urea nitrogen [Mass/Vol] 11 mg/dL 6 - 20 mg/dL [facility] Basic Metabolic Profon 09-09 Anion gap [Moles/Vol] 13 mmol/L Normal 9-17 [facility] Comment on above: Performed By: #### T LISSET SARGENT, BMP, CDP, BNP #### [facility] [address] [place] [address] Circular Head Saw Operator: Miller Shirley MD Calcium [Mass/Vol] 9.8 mg/dL Normal 8.6-10.4 [facility] Comment on above: Performed By: #### T LISSET SARGENT, BMP, CDP, BNP #### [facility] [address] [place], [place] [id number] Circular Head Saw Operator: Miller Shirley MD Chloride [Moles/Vol] 95 mmol/L Low 98-107 [facility] Comment on above: Performed By: #### T ROPI, DIME, BMP, CDP, BNP #### [facility] [address] [place] [address] Circular Head Saw Operator: Miller Shirley MD CO2 [Moles/Vol] 26 mmol/L Normal 20-31 [facility] Comment on above: Performed By: #### T ROPI, DIME, BMP, CDP, BNP #### [facility] [address] [place] [address] Circular Head Saw Operator: Miller Shirley MD Creatinine [Mass/Vol] 0.5 mg/dL Normal 0.5-0.9 [facility] Comment on above: Performed By: #### T ROPI, DIME, BMP, CDP, BNP #### [facility] [address] [place] [address] Circular Head Saw Operator: Miller Shirley MD GFR/1.73 sq M.predicted among non-blacks MDRD (S/P/Bld) [Vol rate/Area] mL/min/{1.73_m2} Normal >60 [facility] Comment on above: Result Comment: These results are not intended for [...] affects renal tubular secretion. Performed By: #### T ROPI, DIME, BMP, CDP, BNP #### [facility] [address] [place] [address] Circular Head Saw Operator: Miller Shirley MD Glucose [Mass/Vol] 215 mg/dL High 70-99 [facility] Comment on above: Performed By: #### T ROPI, DIME, BMP, CDP, BNP #### [facility] [address] [place] [address] Circular Head Saw Operator: Miller Shirley MD Potassium [Moles/Vol] 4.2 mmol/L Normal 3.7-5.3 [facility] Comment on above: Performed By: #### T ROPI, DIME, BMP, CDP, BNP #### [facility] [address] [place] [address] Circular Head Saw Operator: Miller Shirley MD Sodium [Moles/Vol] 134 mmol/L Low 135-144 [facility] Comment on above: Performed By: #### T ROPI, DIME, BMP, CDP, BNP #### [facility] [address] [place] [address] Circular Head Saw Operator: Miller Shirley MD Urea nitrogen [Mass/Vol] 11 mg/dL Normal 6-20 [facility] Comment on above: Performed By: #### T ROPI, DIME, BMP, CDP, BNP #### [facility] [address] [place] [address] Circular Head Saw Operator: Miller Shirley MD Brain Natri. Peptideon 09-09 Natriuretic peptide B (Bld) [Mass/Vol] 228 pg/mL Normal <300 [facility] Comment on above: Result Comment: An a ge-independent cutoff point of 300 pg/ml has a 98% negative predictive value excluding acute heart failure. Performed By: #### T ROPI, DIME, BMP, CDP, BNP #### [facility] [address] [place] [id number] Circular Head Saw Operator: Miller Shirley MD Brain Natriuretic Peptideon 09-09-2024 Natriuretic peptide B (Bld) [Mass/Vol] 228 pg/mL NINF - 300 pg/mL [facility] Comment on above: An age-independent c utoff point of 300 pg/ml has a 98% negative predictive value excluding acute heart failure. CBC with Auto Differentialon 09-09-2024 Basophils (Bld) [#/Vol] 0.02 10*3/uL [facility] Basophils/100 WBC (Bld) 0 % 0 - 2 % [facility] Eosinophils (Bld) [#/Vol] 0.06 10*3/uL [facility] Eosinophils/100 WBC (Bld) 1 % 0 - 5 % [facility] Erythrocyte distribution width (RBC) [Ratio] 12.4 % 12.1 - 15.2 % [facility] Hematocrit (Bld) [Volume fraction] 44.8 % 36.0 - 46.0 % [facility] Hemoglobin (Bld) [Mass/Vol] 15.2 g/dL 12.0 - 16.0 g/dL [facility] Immature granulocytes (Bld) [#/Vol] 0.02 10*3/uL [facility] Immature granulocytes/100 WBC (Bld) 0 % 0 - 5 % [facility] Interpretation and review of laboratory results Abnormal [facility] Lymphocytes/100 WBC (Bld) 28 % 15 - 40 % [facility] Lymphocytes/100 WBC (Bld) 2.07 % [facility] MCH (RBC) [Entitic mass] 28.6 pg 26.0 - 34.0 pg [facility] MCHC (RBC) [Mass/Vol] 33.9 g/dL 31.0 - 37.0 g/dL [facility] MCV (RBC) [Entitic vol] 84.4 fL 80.0 - 100.0 fL [facility] Monocytes/100 WBC (Bld) 8 % 4 - 8 % [facility] Monocytes/100 WBC (Bld) 0.60 % [facility] Neutrophils/100 WBC (Bld) 63 % 47 - 75 % [facility] Platelet mean volume (Bld) [Entitic vol] 9.7 fL 6.0 - 12.0 fL [facility] Platelets (Bld) [#/Vol] 340 10*3/uL [facility] RBC (Bld) [#/Vol] 5.31 10*6/uL High 4.00 - 5.2 0 m/uL [facility] Segmented neutrophils/100 WBC (Bld) 4.68 % [facility] WBC other (Bld) [#/Vol] 7.5 [facility] CBC with Diffon 09-09-2024 Abs. Basophil 0.02 k/uL Normal 0.00-0.20 [facility] Comment on above: Performed By: #### T ROPI, DIME, BMP, CDP, BNP #### [facility] [address] [place] [address] Circular Head Saw Operator: Miller Shirley MD Abs.Imm.Granulocyte 0.02 k/uL Normal 0.00-0.30 [facility] Comment on above: Performed By: #### T ROPI, DIME, BMP, CDP, BNP #### [facility] [address] [place] [address] Circular Head Saw Operator: Miller Shirley MD Abs.Neutrophil (Seg) 4.68 k/uL Normal 2.5-7.0 [facility] Comment on above: Performed By: #### T ROPI, DIME, BMP, CDP, BNP #### [facility] [address] [place] [address] Circular Head Saw Operator: Miller Shirley MD Basophils/100 WBC (Bld) 0 % Normal 0-2 [facility] Comment on above: Performed By: #### T ROPI, DIME, BMP, CDP, BNP #### [facility] [address] [place] [address] Circular Head Saw Operator: Miller Shirley MD Eosinophils (Bld) [#/Vol] 0.06 10*3/uL Normal 0.00-0.40 [facility] Comment on above: Performed By: #### T ROPI, DIME, BMP, CDP, BNP #### [facility] [address] [place] [id number] Circular Head Saw Operator: Miller Shirley MD Eosinophils/100 WBC (Bld) 1 % Normal 0-5 [facility] Comment on above: Performed By: #### T ROPI, DIME, BMP, CDP, BNP #### [facility] [address] [place] [id number] Circular Head Saw Operator: Miller Shirley MD Erythrocyte distribution width (RBC) [Ratio] 12.4 % Normal 12.1-15.2 [facility] Comment on above: Performed By: #### T ROPI, DIME, BMP, CDP, BNP #### [facility] [address] [place] [id number] Circular Head Saw Operator: Miller Shirley MD Hematocrit (Bld) [Volume fraction] 44.8 % Normal 36.0-46.0 [facility] Comment on above: Performed By: #### T ROPI, DIME, BMP, CDP, BNP #### [facility] [address] [place] [address] Circular Head Saw Operator: Miller Shirley MD Hemoglobin (Bld) [Mass/Vol] 15.2 g/dL Normal 12.0-16.0 [facility] Comment on above: Performed By: #### T ROPI, DIME, BMP, CDP, BNP #### [facility] [address] [place] [id number] Circular Head Saw Operator: Miller Shirley MD Immature granulocytes/100 WBC (Bld) 0 % Normal 0-5 [facility] Comment on above: Performed By: #### T ROPI, DIME, BMP, CDP, BNP #### [facility] [address] [place] [id number] Circular Head Saw Operator: Miller Shirley MD Lymphocytes (Bld) [#/Vol] 2.07 10*3/uL Normal 1.00-4.80 [facility] Comment on above: Performed By: #### T ROPI, DIME, BMP, CDP, BNP #### [facility] [address] [place] [address] Circular Head Saw Operator: Miller Shirley MD Lymphocytes/100 WBC (Bld) 28 % Normal 15-40 [facility] Comment on above: Performed By: #### T ROPI, DIME, BMP, CDP, BNP #### [facility] [address] [place] [address] Circular Head Saw Operator: Miller Shirley MD MCH (RBC) [Entitic mass] 28.6 pg Normal 26.0-34.0 [facility] Comment on above: Performed By: #### T ROPI, DIME, BMP, CDP, BNP #### [facility] [address] [place] [address] Circular Head Saw Operator: Miller Shirley MD MCHC (RBC) [Mass/Vol] 33.9 g/dL Normal 31.0-37.0 [facility] Comment on above: Performed By: #### T ROPI, DIME, BMP, CDP, BNP #### [facility] [address] [place] [address] Circular Head Saw Operator: Miller Shirley MD MCV (RBC) [Entitic vol] 84.4 fL Normal 80.0-100.0 [facility] Comment on above: Performed By: #### T ROPI, DIME, BMP, CDP, BNP #### [facility] [address] [place] [phone] Circular Head Saw Operator: Miller Shirley MD Monocytes (Bld) [#/Vol] 0.60 10*3/uL Normal 0.00-1.00 [facility] Comment on above: Performed By: #### T ROPI, DIME, BMP, CDP, BNP #### [facility] [address] [place] [address] Circular Head Saw Operator: Miller Shirley MD Monocytes/100 WBC (Bld) 8 % Normal 4-8 [facility] Comment on above: Performed By: #### T ROPI, DIME, BMP, CDP, BNP #### [facility] [address] [place], [place] [id number] (543) Circular Head Saw Operator: Miller Shirley MD Neutrophil (Seg) 63 % Normal 47-75 [facility] Comment on above: Performed By: #### T ROPI, DIME, BMP, CDP, BNP #### [facility] [address] [place] [address] (650) Circular Head Saw Operator: Miller Shirley MD Platelet mean volume (Bld) [Entitic vol] 9.7 fL Normal 6.0-12.0 [facility] Comment on above: Performed By: #### T ROPI, DIME, BMP, CDP, BNP #### [facility] [address] [place], [place] [id number] (568) Circular Head Saw Operator: Miller Shirley MD Platelets (Bld) [#/Vol] 340 10*3/uL Normal 140-450 [facility] Comment on above: Performed By: #### T ROPI, DIME, BMP, CDP, BNP #### [facility] [address] [place] [address] (399) Circular Head Saw Operator: Miller Shirley MD RBC (Bld) [#/Vol] 5.31 10*6/uL High 4.00-5.20 [facility] Comment on above: Performed By: #### T ROPI, DIME, BMP, CDP, BNP #### [facility] [address] [place], [place] [id number] (197) Circular Head Saw Operator: Miller Shirley MD WBC (Bld) [#/Vol] 7.5 10*3/uL Normal 3.5-11.0 [facility] Comment on above: Performed By: #### T ROPI, DIME, BMP, CDP, BNP #### [facility] [address] [place], [place] [id number] (210) Circular Head Saw Operator: Miller Shirley MD Cult, Bloodon 09-09-2024 Cult, Blood Specimen Description .BLOOD Special Requests 20ML LAC Culture NO GROWTH 7 DAYS Report Status FINAL 09/09/2024 Normal [facility] Comment on above: Performed By: #### L IP, LIVP, MG, BMP, TROPI, CDP #### [facility] [address] [place] [address] Circular Head Saw Operator: Miller Shirley MD D-Dimer Teston 09-09-2024 D-Dimer Test <0.27 Normal 0.00-0.59 [facility] Comment on above: Result Comment: When combined with a low clinical probability, a D dimer value of <0.50 ug/mL FEU is considered negative for DVT and PE (negative predictive value of 98%, sensitivity of 97%). If this test is not being used to help rule out DVT and PE, then the following reference range should be utilized: 0.00 - 0.59 ug/mL FEU. The D-Dimer assay is intended for use as an aid in the diagnosis of venous thromboembolism (DVT and PE) and the results should be interpreted in conjunction with the patient's medical history, clinical presentation, and other findings. Elevated levels of D-dimer activity can be seen in any state of coagulation activation and is not recommended in patients with therapeutic dose anticoagulant therapy for >24 hours, fibrinolytic therapy within the previous 7 days, trauma or surgery within the previous 4 weeks, disseminated malignancies, aortic aneurysm, sepsis, severe infections, pneumonia, severe skin infections, liver cirrhosis, advanced age, coronary disease, diabetes, and . A very low percentage of patients with DVT may yield D-dimer results below the cutoff of 0.5 ug/mL FEU. This is known to be more prevalent in patients with distal DVT. Performed By: #### T ROPI, DIME, BMP, CDP, BNP #### [facility] [address] [place] [address] Circular Head Saw Operator: Miller Shirley MD D-Dimer, Quantitativeon 08-18 Fibrin D-dimer FEU (PPP) [Mass/Vol] [facility] Comment on above: When combined with a low clinical probability, a D dimer value of <0.50 ug/mL FEU is considered negative for DVT and PE (negative predictive value of 98%, sensitivity of 97%). If this test is not being used to help rule out DVT and PE, then the following reference range should be utilized: 0.00 - 0.59 ug/mL FEU. The D-Dimer assay is intended for use as an aid in the diagnosis of venous thromboembolism (DVT and PE) and the results should be interpreted in conjunction with the patient's medical history, clinical presentation, and other findings. Elevated levels of D-dimer activity can be seen in any state of coagulation activation and is not recommended in patients with therapeutic dose anticoagulant therapy for >24 hours, fibrinolytic therapy within the previous 7 days, trauma or surgery within the previous 4 weeks, disseminated malignancies, aortic aneurysm, sepsis, severe infections, pneumonia, severe skin infections, liver cirrhosis, advanced age, coronary disease, diabetes, and . A very low percentage of patients with DVT may yield D-dimer results below the cutoff of 0.5 ug/mL FEU. This is known to be more prevalent in patients with distal DVT. [facility] 12 Leadon 09-09-2024 Atrial Rate 123 BPM [facility] P [place] 75 degrees [facility] P-R Interval 156 ms [facility] Q-T Interval 308 ms [facility] QRS Duration [address] [facility] QTc Calculation (Bazett) 440 ms [facility] [employer] [facility] R [place] 72 degrees [facility] T [place] 104 degrees [facility] Ventricular Rate 123 BPM [facility] Sinus tachycardia Anterior infarct (cited on or before 13-APR-2021) Nonspecific ST & T wave changes Abnormal [facility] Roverto Barbour MD - 09/09/2024 Sinus tachycardia Anterior infarct (cited on or before 13-APR-2021) Nonspecific ST & T wave changes Abnormal ECG [facility] [employer] [facility] - Chemistry and C hemistry - challengeon 09-09-2024 Anion gap [Moles/Vol] 13 mmol/L (9-17 ) [facility] Comment on above: Note: Responsible Ob banquet food server: [email or web address] AUTOFILE ([id number]) Calcium [Mass/Vol] 9.8 mg/dL (8.6-10.4 ) [facility] Comment on above: Note: Responsible Ob banquet food server: [email or web address] AUTOFILE ([id number]) Chloride [Moles/Vol] 95 mmol/L Low (98-107 ) [facility] [facility] Comment on above: Note: Responsible Ob banquet food server: [id number] AUTOFILE ([id number]) CO2 [Moles/Vol] 26 mmol/L (20-31 ) [facility] Comment on above: Note: Responsible Ob banquet food server: [email or web address] AUTOFILE ([id number]) Creatinine [Mass/Vol] 0.5 mg/dL (0.5-0.9 ) [facility] Comment on above: Note: Responsible Ob banquet food server: [email or web address] AUTOFILE ([id number]) GFR/1.73 sq M.predicted among non-blacks MDRD (S/P/Bld) [Vol rate/Area] mL/min/{1.73_m2} (>60 ) [facility] Comment on above: Note: These results are not intended for use in patients <18 years of age.eGFR results are calculated without a race factor using the 2020 CKD-EPIequation.Careful clinical correlation is recommended, particularly when comparing toresults calculated using previous equations.The CKD-EPI equation is less accurate in patients with extremes of muscle mass,extra-renal metabolism of creatine, excessive creatine ingestion, or followingtherapy that affects renal tubular secretion.Responsible Observer: [email or web address] AUTOFILE ([id number]) Glucose [Mass/Vol] 215 mg/dL High (70-99 ) [facility] Comment on above: Note: Responsible Ob banquet food server: [email or web address] AUTOFILE ([id number]) Natriuretic peptide B (Bld) [Mass/Vol] 228 pg/mL (<300 ) [facility] Comment on above: Note: An age-indepen dent cutoff point of 300 pg/ml has a 98% negative predictive valueexcluding acute heart failure.Responsible Observer: [email or web address] AUTOFILE ([id number]) Potassium [Moles/Vol] 4.2 mmol/L (3.7-5.3 ) [facility] Comment on above: Note: Responsible Ob banquet food server: [email or web address] AUTOFILE ([id number]) Sodium [Moles/Vol] 134 mmol/L Low (135-144 ) [facility] Comment on above: Note: Responsible Ob banquet food server: [email or web address] AUTOFILE ([id number]) Urea nitrogen [Mass/Vol] 11 mg/dL (6-20 ) [facility] Comment on above: Note: Responsible Ob banquet food server: [email or web address] AUTOFILE ([id number]) Laboratory - Hematology and Cell countson 09-09-2024 Basophils/100 WBC (Bld) 0 % (0-2 ) [facility] Comment on above: Note: Responsible Ob banquet food server: LIVE AUTOFILE ([id number]) Eosinophils (Bld) [#/Vol] 0.06 10*3/uL (0.00-0.40 ) [facility] Comment on above: Note: Responsible Ob banquet food server: LIVE AUTOFILE ([id number]) Eosinophils/100 WBC (Bld) 1 % (0-5 ) [facility] Comment on above: Note: Responsible Ob banquet food server: LIVE AUTOFILE ([id number]) Erythrocyte distribution width (RBC) [Ratio] 12.4 % (12.1-15.2 ) [facility] Comment on above: Note: Responsible Ob banquet food server: LIVE AUTOFILE ([id number]) Hematocrit (Bld) [Volume fraction] 44.8 % (36.0-46.0 ) [facility] Comment on above: Note: Responsible Ob banquet food server: LIVE AUTOFILE ([id number]) Hemoglobin (Bld) [Mass/Vol] 15.2 g/dL (12.0-16.0 ) [facility] Comment on above: Note: Responsible Ob banquet food server: LIVE AUTOFILE ([id number]) Immature granulocytes/100 WBC (Bld) 0 % (0-5 ) [facility] Comment on above: Note: Responsible Ob banquet food server: LIVE AUTOFILE (69406) Lymphocytes (Bld) [#/Vol] 2.07 10*3/uL (1.00-4.80 ) [facility] Comment on above: Note: Responsible Ob banquet food server: LIVE AUTOFILE ([id number]) Lymphocytes/100 WBC (Bld) 28 % (15-40 ) [facility] Comment on above: Note: Responsible Ob banquet food server: LIVE AUTOFILE ([id number]) MCH (RBC) [Entitic mass] 28.6 pg (26.0-34.0 ) [facility] Comment on above: Note: Responsible Ob banquet food server: LIVE AUTOFILE ([id number]) MCHC (RBC) [Mass/Vol] 33.9 g/dL (31.0- 37.0 ) [facility] Comment on above: Note: Responsible Ob banquet food server: LIVE AUTOFILE (09661) MCV (RBC) [Entitic vol] 84.4 fL (80.0-100.0 ) [facility] Comment on above: Note: Responsible Ob banquet food server: LIVE AUTOFILE ([id number]) Monocytes (Bld) [#/Vol] 0.60 10*3/uL (0.00-1.00 ) [facility] Comment on above: Note: Responsible Ob banquet food server: LIVE AUTOFILE ([id number]) Monocytes/100 WBC (Bld) 8 % (4-8 ) [facility] Comment on above: Note: Responsible Ob banquet food server: LIVE AUTOFILE (12386) Platelet mean volume (Bld) [Entitic vol] 9.7 fL (6.0-12.0 ) [facility] Comment on above: Note: Responsible Ob banquet food server: LIVE AUTOFILE ([id number]) Platelets (Bld) [#/Vol] 340 10*3/uL (140-450 ) [facility] Comment on above: Note: Responsible Ob banquet food server: LIVE AUTOFILE ([id number]) RBC (Bld) [#/Vol] 5.31 10*6/uL High (4.00-5.20 ) [facility] Comment on above: Note: Responsible Ob banquet food server: LIVE AUTOFILE ([id number]) Segmented neutrophils/100 WBC (Bld) 63 % (47-75 ) [facility] Comment on above: Note: Responsible Ob banquet food server: LIVE AUTOFILE (30941) WBC (Bld) [#/Vol] 7.5 10*3/uL (3.5-11.0 ) [facility] Comment on above: Note: Responsible Ob banquet food server: LIVE AUTOFILE ([id number]) No Panel Informationon 09-09 Interpretation and review of laboratory results Abnormal [facility] Abs. Basophil 0.02 k/uL (0.00-0.20 ) [facility] Comment on above: Note: Responsible Ob banquet food server: LIVE AUTOFILE ([id number]) Abs.Imm.Granulocyte 0.02 k/uL (0.00-0. 30 ) [facility] Comment on above: Note: Responsible Ob banquet food server: LIVE AUTOFILE ([id number]) Abs.Neutrophil (Seg) 4.68 k/uL (2.5-7.0 ) [facility] Comment on above: Note: Responsible Ob banquet food server: LIVE AUTOFILE ([id number]) D-Dimer Test <0.27 ug/mL_FEU (0.00-0.59 ) [facility] Comment on above: Note: When combined with a low clinical probability, a D dimer value of <0.50 ug/mLFEU is considered negative for DVT and PE (negative predictive value of 98%,sensitivity of 97%).If this test is not being used to help rule out DVT and PE, then the followingreference range should be utilized: 0.00 - 0.59 ug/mL FEU.The D-Dimer assay is intended for use as an aid in the diagnosis of venousthromboembolism (DVT and PE) and the results should be interpreted inconjunction with the patient's medical history, clinical presentation, andother findings.Elevated levels of D-dimer activity can be seen in any state of coagulationactivation and is not recommended in patients with therapeutic doseanticoagulant therapy for >24 hours, fibrinolytic therapy within the previous 7days, trauma or surgery within the previous 4 weeks,disseminated malignancies, aortic aneurysm, sepsis, severe infections,pneumonia, severe skin infections, liver cirrhosis, advanced age, coronarydisease, diabetes, and .A very low percentage of patients with DVT may yield D-dimer results below thecutoff of 0.5 ug/mL FEU. This is known to be more prevalent in patients withdistal DVT.Responsible Observer: UMM Hwang TOÑO ([id number]) Reported Physicians See Note [facility] Comment on above: Note: Reported Physi cians:Ordering: LORNA, VESELINAttending: LORNA, VESELINReferring: Hardeep, Kavita Troponin, High Sens 18 ng/L High (0-14 ) [facility] Comment on above: Note: High Sensitivi ty Troponin values cannot be compared with other Troponinmethodologies.Responsible Observer: CORA AUTOFILE ([id number]) Troponinon 09-09-2024 Troponin I.cardiac High sensitivity method [Mass/Vol] 18 ng/L High 0 - 14 ng/L [facility] Comment on above: High Sensitivity Tro ponin values cannot be compared with other Troponin methodologies. Troponin, High Sens 18 ng/L High 0-14 [facility] Comment on above: Result Comment: High Sensitivity Troponin values cannot be compared with other Troponin methodologies. Performed By: #### T ROPI, DIME, BMP, CDP, BNP #### [facility] [address] [place] [address] Circular Head Saw Operator: Miller Shirley MD XR CHEST (2 VW)on 09-09-2024 XR CHEST (2 VW) EXAMINATION: XR CHES T (2 VW) HISTORY: Left posterior thoracic pain COMPARISON: XR chest 07/06/2023, 08/20/2016, 08/09/2012, 08/15/2011 FINDINGS: LUNGS: 1.0 cm irregular opacity within lateral left midlung; not significant changed. Lungs are otherwise clear. VASCULATURE: No increased pulmonary vasculature. PLEURA: No pneumothorax, effusion, or pleural thickening. CARDIAC: No cardiomegaly or cardiac silhouette abnormality. MEDIASTINUM: No visible mass or adenopathy. BONES: Sclerotic focus within lateral aspect of right humeral head. OTHER: Negative. IMPRESSION: 1. No acute findings to account for patient's symptoms. 2. Stable density within lateral left midlung favoring benign etiology; possible granuloma. 3. Sclerotic focus within lateral right humeral head. This area was not included on prior studies. Consider nonemergent right shoulder radiographs. Interpreted by: Brijesh Lozoya MD Signed by: Brijesh Lozoya MD 09/09/24 Final result Normal [facility] XR Chest 2 Viewson 5 1. No acute findings to account for patient's symptoms. 2. Stable density within lateral left midlung favoring benign etiology; possible granuloma. 3. Sclerotic focus within lateral right humeral head. This area was not included on prior studies. Consider nonemergent right shoulder radiographs. [facility] CONSOLIDATED EXAMINATION: XR CHES T (2 VW) HISTORY: Left posterior thoracic pain COMPARISON: XR chest 07/06/2023, 08/20/2016, 08/09/2012, 08/15/2011 FINDINGS: LUNGS: 1.0 cm irregular opacity within lateral left midlung; not significant changed. Lungs are otherwise clear. VASCULATURE: No increased pulmonary vasculature. PLEURA: No pneumothorax, effusion, or pleural thickening. CARDIAC: No cardiomegaly or cardiac silhouette abnormality. MEDIASTINUM: No visible mass or adenopathy. BONES: Sclerotic focus within lateral aspect of right humeral head. OTHER: Negative. [facility] CONSOL[facility] Brijesh Lozoya MD - 09/09/2024 EXAMINATION: XR CHEST (2 VW) HISTORY: Left posterior thoracic pain COMPARISON: XR chest 07/06/2023, 08/20/2016, 08/09/2012, 08/15/2011 FINDINGS: LUNGS: 1.0 cm irregular opacity within lateral left midlung; not significant changed. Lungs are otherwise clear. VASCULATURE: No increased pulmonary vasculature. PLEURA: No pneumothorax, effusion, or pleural thickening. CARDIAC: No cardiomegaly or cardiac silhouette abnormality. MEDIASTINUM: No visible mass or adenopathy. BONES: Sclerotic focus within lateral aspect of right humeral head. OTHER: Negative. IMPRESSION: 1. No acute findings to account for patient's symptoms. 2. Stable density within lateral left midlung favoring benign etiology; possible granuloma. 3. Sclerotic focus within lateral right humeral head. This area was not included on prior studies. Consider nonemergent right shoulder radiographs. [facility] Radiology Study observation (narrative) [facility] XR Chest 2 ViewsOrdered By: Brijesh Lozoya on 09-09-[address] [facility] CBCon 09-04-2024 Erythrocyte distribution width (RBC) [Ratio] 11.9 % Low 12.1 - 15.2 % [facility] Hematocrit (Bld) [Volume fraction] 44.9 % 36.0 - 46.0 % [facility] Hemoglobin (Bld) [Mass/Vol] 15.8 g/dL 12.0 - 16.0 g/dL [facility] Interpretation and review of laboratory results Abnormal [facility] MCH (RBC) [Entitic mass] 28.8 pg 26.0 - 34.[address] [facility] MCHC (RBC) [Mass/Vol] 35.2 g/dL 31.0 - 37.0 g/dL [facility] MCV (RBC) [Entitic vol] 81.8 fL 80.0 - 100.[address] [facility] Platelet mean volume (Bld) [Entitic vol] 9.7 fL 6.0 - 12.[address] [facility] Platelets (Bld) [#/Vol] 354 10*3/uL [facility] RBC (Bld) [#/Vol] 5.49 10*6/uL High 4.00 - 5.2 0 m/uL [facility] WBC other (Bld) [#/Vol] 6.4 [facility] Erythrocyte distribution width (RBC) [Ratio] 11.9 % Low 12.1-15.2 [facility] Comment on above: Performed By: #### T ROPI, CBC, LACTIC, CP, DIME ####[facility] [id number] [place] [address] lab Director: Miller Shirley MD Hematocrit (Bld) [Volume fraction] 44.9 % Normal 36.0-46.0 [facility] Comment on above: Performed By: #### T ROPI, CBC, LACTIC, CP, DIME ####[facility] [id number] [place] [address] Lab Director: Miller Shirley MD Hemoglobin (Bld) [Mass/Vol] 15.8 g/dL Normal 12.0-16.0 [facility] Comment on above: Performed By: #### T ROPI, CBC, LACTIC, CP, DIME ####[facility] [id number] [place] [address] Lab Director: Miller Shirley MD MCH (RBC) [Entitic mass] 28.8 pg Normal 26.0-34.0 [facility] Comment on above: Performed By: #### T ROPI, CBC, LACTIC, CP, DIME ####[facility] [id number] [place] [address] Lab Director: Miller Shirley MD MCHC (RBC) [Mass/Vol] 35.2 g/dL Normal 31.0-37.0 [facility] Comment on above: Performed By: #### T ROPI, CBC, LACTIC, CP, DIME ####[facility] [id number] [place] [address] Lab Director: Miller Shirley MD MCV (RBC) [Entitic vol] 81.8 fL Normal 80.0-100.0 [facility] Comment on above: Performed By: #### T ROPI, CBC, LACTIC, CP, DIME ####[facility] [id number] [place] [address] Lab Director: Miller Shirley MD Platelet mean volume (Bld) [Entitic vol] 9.7 fL Normal 6.0-12.0 [facility] Comment on above: Performed By: #### T ROPI, CBC, LACTIC, CP, DIME ####[facility] [id number] [place] [address] Lab Director: Miller Shirley MD Platelets (Bld) [#/Vol] 354 10*3/uL Normal 140-450 [facility] Comment on above: Performed By: #### T ROPI, CBC, LACTIC, CP, DIME ####[facility] [id number] [place] [address] Lab Director: Miller Shirley MD RBC (Bld) [#/Vol] 5.49 10*6/uL High 4.00-5.20 [facility] Comment on above: Performed By: #### T ROPI, CBC, LACTIC, CP, DIME ####[facility] [id number] [place] [address] Lab Director: Miller Shirley MD WBC (Bld) [#/Vol] 6.4 10*3/uL Normal 3.5-11.0 [facility] Comment on above: Performed By: #### T ROPI, CBC, LACTIC, CP, DIME ####[facility] [id number] [place] [address] Lab Director: Miller Shirley MD Comp Metabolic Profon 2024 Albumin [Mass/Vol] 4.0 g/dL Normal 3.5-5.2 [facility] Comment on above: Performed By: #### T ROPI, CBC, LACTIC, CP, DIME ####[facility] [id number] [facility] [place] [address] Lab Director: Miller Shirley MD Albumin/Glob Ratio 1.5 Normal 1.0-2.5 [facility] Comment on above: Performed By: #### T ROPI, CBC, LACTIC, CP, DIME ####[facility] [id number] [place] [address] Lab Director: Miller Shirley MD Alkaline Phos 99 U/L Normal 35-104 [facility] Comment on above: Performed By: #### T ROPI, CBC, LACTIC, CP, DIME ####[facility] [id number] [place] [address] Lab Director: Miller Shirley MD ALT [Catalytic activity/Vol] 13 U/L Normal 5-33 [facility] Comment on above: Performed By: #### T ROPI, CBC, LACTIC, CP, DIME ####[facility] [id number] [facility] [place] [address] Lab Director: Miller Shirley MD Anion gap [Moles/Vol] 12 mmol/L Normal 9-17 [facility] Comment on above: Performed By: #### T ROPI, CBC, LACTIC, CP, DIME ####[facility] [id number] [place] [address] lab Director: Miller Shirley MD AST [Catalytic activity/Vol] 14 U/L Normal <32 [facility] Comment on above: Performed By: #### T ROPI, CBC, LACTIC, CP, DIME ####[facility] [id number] [place] [address] lab Director: Miller Shirley MD Bilirubin [Mass/Vol] 0.3 mg/dL Normal 0.3-1.2 [facility] Comment on above: Performed By: #### T ROPI, CBC, LACTIC, CP, DIME ####[facility] [id number] [facility] [place] [address] lab Director: Miller Shirley MD Calcium [Mass/Vol] 9.0 mg/dL Normal 8.6-10.4 [facility] Comment on above: Performed By: #### T ROPI, CBC, LACTIC, CP, DIME ####[facility] [id number] [place] [address] lab Director: Miller Shirley MD Chloride [Moles/Vol] 96 mmol/L Low 98-107 [facility] Comment on above: Performed By: #### T ROPI, CBC, LACTIC, CP, DIME ####[facility] [id number] [place] [address] Lab Director: Miller Shirley MD CO2 [Moles/Vol] 24 mmol/L Normal 20-31 [facility] Comment on above: Performed By: #### T ROPI, CBC, LACTIC, CP, DIME ####[facility] [id number] [place] [address] Lab Director: Miller Shirley MD Creatinine [Mass/Vol] 0.4 mg/dL Low 0.5-0.9 [facility] Comment on above: Performed By: #### T DEYAI, CBC, LACTIC, CP, DIME ####[facility] [id number] [place] [id number] lab Director: Miller Shirley MD GFR/1.73 sq M.predicted among non-blacks MDRD (S/P/Bld) [Vol rate/Area] mL/min/{1.73_m2} Normal >60 [facility] Comment on above: Result Comment: These results are not intended for [...] affects renal tubular secretion. Performed By: #### T DEYAI, CBC, LACTIC, CP, DIME ####[facility] [id number] [place] [address] lab Director: Miller Shirley MD Glucose [Mass/Vol] 310 mg/dL High 70-99 [facility] Comment on above: Performed By: #### T ROSETTA, CBC, LACTIC, CP, DIME ####[facility] [id number] [place] [address] lab Director: Miller Shirley MD Potassium [Moles/Vol] 4.1 mmol/L Normal 3.7-5.3 [facility] Comment on above: Performed By: #### T DEYAI, CBC, LACTIC, CP, DIME ####[facility] [id number] [place] [id number] lab Director: Miller Shirley MD Protein [Mass/Vol] 6.6 g/dL Normal 6.4-8.3 [facility] Comment on above: Performed By: #### T DEYAI, CBC, LACTIC, CP, DIME ####[facility] [id number] [place] [address] lab Director: Miller Shirley MD Sodium [Moles/Vol] 132 mmol/L Low 135-144 [facility] Comment on above: Performed By: #### T ROPI, CBC, LACTIC, CP, DIME ####[facility] [id number] [place], [place] [id number] lab Director: Miller Shirley MD Urea nitrogen [Mass/Vol] 13 mg/dL Normal 6-20 [facility] Comment on above: Performed By: #### T ROPI, CBC, LACTIC, CP, DIME ####[facility] [id number] [place] [address] lab Director: Miller Shirley MD Comprehensive Metabolic Pane [facility] 09-04-2024 Albumin [Mass/Vol] 4.0 g/dL 3.5 - 5.2 g/dL [facility] Albumin/Globulin [Mass ratio] 1.5 {ratio} 1.0 - 2.[address] [facility] ALP [Catalytic activity/Vol] 99 U/L 35 - 104 U/L [facility] ALT [Catalytic activity/Vol] 13 U/L 5 - 33 U/L [facility] Anion gap [Moles/Vol] 12 mmol/L 9 - 17 mmol/L [facility] AST [Catalytic activity/Vol] 14 U/L NINF - 32 U/L [facility] Bilirubin [Mass/Vol] 0.3 mg/dL 0.3 - 1 .2 mg/dL [facility] Calcium [Mass/Vol] 9.0 mg/dL 8.6 - 10. 4 mg/dL [facility] Chloride [Moles/Vol] 96 mmol/L Low 98 - 10 7 mmol/L [facility] CO2 [Moles/Vol] 24 mmol/L 20 - 31 mmol/L [facility] Creatinine [Mass/Vol] 0.4 mg/dL Low 0.5 - 0.9 mg/dL [facility] Comment on above: These results are not intended for use [...] that affects renal tubular secretion. Glucose [Mass/Vol] 310 mg/dL High 70 - 99 mg/dL [facility] Interpretation and review of laboratory results Abnormal [facility] Potassium [Moles/Vol] 4.1 mmol/L 3.7 - 5.3 mmol/L [facility] Protein [Mass/Vol] 6.6 g/dL 6.4 - 8.3 g/dL [facility] Sodium [Moles/Vol] 132 mmol/L Low 135 - 144 mmol/L [facility] Urea nitrogen [Mass/Vol] 13 mg/dL 6 - 20 mg/dL [facility] D-Dimer Teston 09-04-2024 D-Dimer Test <0.27 Normal 0.00-0.59 [facility] Comment on above: Result Comment: When combined with a low clinical probability, a D dimer value of <0.50 ug/mL FEU is considered negative for DVT and PE (negative predictive value of 98%, sensitivity of 97%). If this test is not being used to help rule out DVT and PE, then the following reference range should be utilized: 0.00 - 0.59 ug/mL FEU. The D-Dimer assay is intended for use as an aid in the diagnosis of venous thromboembolism (DVT and PE) and the results should be interpreted in conjunction with the patient's medical history, clinical presentation, and other findings. Elevated levels of D-dimer activity can be seen in any state of coagulation activation and is not recommended in patients with therapeutic dose anticoagulant therapy for >24 hours, fibrinolytic therapy within the previous 7 days, trauma or surgery within the previous 4 weeks, disseminated malignancies, aortic aneurysm, sepsis, severe infections, pneumonia, severe skin infections, liver cirrhosis, advanced age, coronary disease, diabetes, and . A very low percentage of patients with DVT may yield D-dimer results below the cutoff of 0.5 ug/mL FEU. This is known to be more prevalent in patients with distal DVT. Performed By: #### T ROPI, CBC, LACTIC, CP, DIME ####[facility] [id number] [place] [address] lab Director: Miller Shirley MD D-Dimer, Quantitativeon 08-17 Fibrin D-dimer FEU (PPP) [Mass/Vol] [facility] Comment on above: When combined with a low clinical probability, a D dimer value of <0.50 ug/mL FEU is considered negative for DVT and PE (negative predictive value of 98%, sensitivity of 97%). If this test is not being used to help rule out DVT and PE, then the following reference range should be utilized: 0.00 - 0.59 ug/mL FEU. The D-Dimer assay is intended for use as an aid in the diagnosis of venous thromboembolism (DVT and PE) and the results should be interpreted in conjunction with the patient's medical history, clinical presentation, and other findings. Elevated levels of D-dimer activity can be seen in any state of coagulation activation and is not recommended in patients with therapeutic dose anticoagulant therapy for >24 hours, fibrinolytic therapy within the previous 7 days, trauma or surgery within the previous 4 weeks, disseminated malignancies, aortic aneurysm, sepsis, severe infections, pneumonia, severe skin infections, liver cirrhosis, advanced age, coronary disease, diabetes, and . A very low percentage of patients with DVT may yield D-dimer results below the cutoff of 0.5 ug/mL FEU. This is known to be more prevalent in patients with distal DVT. [facility] Laboratory - Chemistry and C hemistry - challengeon 09-04-2024 Ketones Ql (U) Negative (NEG ) [facility] Comment on above: Note: Responsible Ob banquet food server: SAMIRA WATERMAN ([id number]) Albumin [Mass/Vol] 4.0 g/dL (3.5-5.2 ) [facility] Comment on above: Note: Responsible Ob banquet food server: [email or web address] AUTOFILE ([id number]) ALT [Catalytic activity/Vol] 13 U/L (5-33 ) [facility] Comment on above: Note: Responsible Ob banquet food server: [email or web address] AUTOFILE ([id number]) Anion gap [Moles/Vol] 12 mmol/L (9-17 ) [facility] Comment on above: Note: Responsible Ob banquet food server: [email or web address] AUTOFILE ([id number]) AST [Catalytic activity/Vol] 14 U/L (<32 ) [facility] Comment on above: Note: Responsible Ob banquet food server: [email or web address] AUTOFILE ([id number]) Bilirubin [Mass/Vol] 0.3 mg/dL (0.3-1.2 ) [facility] Comment on above: Note: Responsible Ob banquet food server: [email or web address] AUTOFILE ([id number]) Calcium [Mass/Vol] 9.0 mg/dL (8.6-10.4 ) [facility] Comment on above: Note: Responsible Ob banquet food server: [email or web address] AUTOFILE ([id number]) Chloride [Moles/Vol] 96 mmol/L Low (98-107 ) [facility] Comment on above: Note: Responsible Ob banquet food server: [email or web address] AUTOFILE ([id number]) CO2 [Moles/Vol] 24 mmol/L (20-31 ) [facility] Comment on above: Note: Responsible Ob banquet food server: [email or web address] AUTOFILE ([id number]) Creatinine [Mass/Vol] 0.4 mg/dL Low (0.5-0.9 ) [facility] Comment on above: Note: Responsible Ob banquet food server: [email or web address] AUTOFILE (5977) GFR/1.73 sq M.predicted among non-blacks MDRD (S/P/Bld) [Vol rate/Area] mL/min/{1.73_m2} (>60 ) [facility] Comment on above: Note: These results are not intended for use in patients <18 years of age.eGFR results are calculated without a race factor using the 2020 CKD-EPIequation.Careful clinical correlation is recommended, particularly when comparing toresults calculated using previous equations.The CKD-EPI equation is less accurate in patients with extremes of muscle mass,extra-renal metabolism of creatine, excessive creatine ingestion, or followingtherapy that affects renal tubular secretion.Responsible Observer: [email or web address] AUTOFILE (5977) Glucose [Mass/Vol] 310 mg/dL High (70-99 ) [facility] Comment on above: Note: Responsible Ob banquet food server: [email or web address] AUTOFILE (5977) Potassium [Moles/Vol] 4.1 mmol/L (3.7-5.3 ) [facility] Comment on above: Note: Responsible Ob banquet food server: [email or web address] AUTOFILE (5977) Protein [Mass/Vol] 6.6 g/dL (6.4-8.3 ) [facility] Comment on above: Note: Responsible Ob banquet food server: [email or web address] AUTOFILE (5977) Sodium [Moles/Vol] 132 mmol/L Low (135-144 ) [facility] Comment on above: Note: Responsible Ob banquet food server: [email or web address] AUTOFILE (5977) Urea nitrogen [Mass/Vol] 13 mg/dL (6-20 ) [facility] Comment on above: Note: Responsible Ob banquet food server: [email or web address] AUTOFILE (5977) Laboratory - Hematology and Cell countson 09-04-2024 Erythrocyte distribution width (RBC) [Ratio] 11.9 % Low (12.1-15.2 ) [facility] Comment on above: Note: Responsible Ob banquet food server: LIVE AUTOFILE (08480) Hematocrit (Bld) [Volume fraction] 44.9 % (36.0-46.0 ) [facility] Comment on above: Note: Responsible Ob banquet food server: LIVE AUTOFILE (82811) Hemoglobin (Bld) [Mass/Vol] 15.8 g/dL (12.0-16.0 ) [facility] Comment on above: Note: Responsible Ob banquet food server: LIVE AUTOFILE (38034) MCH (RBC) [Entitic mass] 28.8 pg (26.0-34.0 ) [facility] Comment on above: Note: Responsible Ob banquet food server: LIVE AUTOFILE (54152) MCHC (RBC) [Mass/Vol] 35.2 g/dL (31.0- 37.0 ) [facility] Comment on above: Note: Responsible Ob banquet food server: LIVE AUTOFILE (53267) MCV (RBC) [Entitic vol] 81.8 fL (80.0-100.0 ) [facility] Comment on above: Note: Responsible Ob banquet food server: LIVE AUTOFILE (00010) Platelet mean volume (Bld) [Entitic vol] 9.7 fL (6.0-12.0 ) [facility] Comment on above: Note: Responsible Ob banquet food server: LIVE AUTOFILE (28160) Platelets (Bld) [#/Vol] 354 10*3/uL (140-450 ) [facility] Comment on above: Note: Responsible Ob banquet food server: LIVE AUTOFILE (64031) RBC (Bld) [#/Vol] 5.49 10*6/uL High (4.00-5.20 ) [facility] Comment on above: Note: Responsible Ob banquet food server: LIVE AUTOFILE (52094) WBC (Bld) [#/Vol] 6.4 10*3/uL (3.5-11.0 ) [facility] Comment on above: Note: Responsible Ob banquet food server: LIVE AUTOFILE (02093) Laboratory - Specimen inform ationon 09-04-2024 Clarity (U) Clear (CLEAR ) [facility] Comment on above: Note: Responsible Ob banquet food server: SAMIRA ([facility] [place] (2218) Color (U) Yellow (YEL ) [facility] Comment on above: Note: Responsible Ob banquet food server: SAMIRA ([facility] [place] (2218) Laboratory - Urinalysison Leukocyte esterase Test strip Ql (U) Negative (NEG ) [facility] Comment on above: Note: Responsible Ob banquet food server: SAMIRA ([facility] [place] (2218) Lactic Acidon 09-04-2024 Lactate (BldV) [Moles/Vol] 1.6 mmol/L 0.5 - 2.2 mmol/L [facility] Lactate [Moles/Vol] 1.6 mmol/L (0.5-2.2 ) [facility] Comment on above: Note: Responsible Ob banquet food server: [email or web address] AUTOFILE (5977) Performed By: #### T ROPI, CBC, LACTIC, CP, DIME ####[facility] [id number] [place] [address] lab Director: Miller Shirley MD No Panel Informationon 09-04 Bilirubin, SemiQt,Ur Negative (NEG ) [facility] Comment on above: Note: Responsible Ob banquet food server: SAMIRA ([facility] (2217) Blood, Urine Negative (NEG ) [facility] Comment on above: Note: Responsible Ob banquet food server: SAMIRA ([facility] (2217) Comment See Note [facility] Comment on above: Note: Responsible Ob banquet food server: SAMIRA ([facility] (2217) Glucose,Semi-qnt,Ur 1000 mg/dL mg/dL Abnormal (NEG ) [facility] Comment on above: Note: Responsible Ob banquet food server: SAMIRA ([facility] (2217) Nitrite,Ur Negative (NEG ) [facility] Comment on above: Note: Responsible Ob banquet food server: SAMIRA ([facility] (2217) PH,Ur 6.0 (5.0-8.0 ) [facility] Comment on above: Note: Responsible Ob banquet food server: SAMIRA ([facility] (2217) Protein, Semi-qnt,Ur TRACE mg/dL Abnormal (NEG ) [facility] Comment on above: Note: Responsible Ob banquet food server: SAMIRA ([facility] (2217) Reported Physicians See Note [facility] Comment on above: Note: Reported Physi cians:Ordering: LORNA, VESELINAttending: LORNA, VESELINReferring: Hardeep, Kavita Spec. [place],Ur 1.015 (1.005-1.03 0 ) [facility] Comment on above: Note: Responsible Ob banquet food server: SAMIRA ([facility] (2217) Urobilinogen,Ur Normal EU/dL (0.0-1.0 ) [facility] Comment on above: Note: Responsible Ob banquet food server: SAMIRA ([facility] (2217) Albumin/Glob Ratio 1.5 (1.0-2.5 ) [facility] Comment on above: Note: Responsible Ob banquet food server: [email or web address] AUTOFILE (0922) Alkaline Phos 99 U/L (35-104 ) [facility] Comment on above: Note: Responsible Ob banquet food server: [email or web address] AUTOFILE (9718) D-Dimer Test <0.27 ug/mL_FEU (0.00-0.59 ) [facility] Comment on above: Note: When combined with a low clinical probability, a D dimer value of <0.50 ug/mLFEU is considered negative for DVT and PE (negative predictive value of 98%,sensitivity of 97%).If this test is not being used to help rule out DVT and PE, then the followingreference range should be utilized: 0.00 - 0.59 ug/mL FEU.The D-Dimer assay is intended for use as an aid in the diagnosis of venousthromboembolism (DVT and PE) and the results should be interpreted inconjunction with the patient's medical history, clinical presentation, andother findings.Elevated levels of D-dimer activity can be seen in any state of coagulationactivation and is not recommended in patients with therapeutic doseanticoagulant therapy for >24 hours, fibrinolytic therapy within the previous 7days, trauma or surgery within the previous 4 weeks,disseminated malignancies, aortic aneurysm, sepsis, severe infections,pneumonia, severe skin infections, liver cirrhosis, advanced age, coronarydisease, diabetes, and .A very low percentage of patients with DVT may yield D-dimer results below thecutoff of 0.5 ug/mL FEU. This is known to be more prevalent in patients withdistal DVT.Responsible Observer: BENSON ([facility]) JAY (2110) Reported Physicians See Note [facility] Comment on above: Note: Reported Physi cians:Ordering: LORNA, VESELINAttending: LORNA, VESELINReferring: Kavita Qureshi Troponin, High Sens 19 ng/L High (0-14 ) [facility] Comment on above: Note: High Sensitivi ty Troponin values cannot be compared with other Troponinmethodologies.Responsible Observer: TWPUR1 AUTOFILE (8041) Reported Physicians See Note [facility] Comment on above: Note: Reported Physi cians:Ordering: LORNA, VESELINAttending: LORNA, VESELINReferring: Kavita Qureshi Troponinon 09-04-2024 Interpretation and review of laboratory results Abnormal [facility] Troponin I.cardiac High sensitivity method [Mass/Vol] 19 ng/L High 0 - 14 ng/L [facility] Comment on above: High Sensitivity Tro ponin values cannot be compared with other Troponin methodologies. [facility] Troponin, High Sens 19 ng/L High 0-14 [facility] Comment on above: Result Comment: High Sensitivity Troponin values cannot be compared with other Troponin methodologies. Performed By: #### T ROPI, CBC, LACTIC, CP, DIME ####[facility] [id number], [place] [phone] Director: Miller Shirley MD UA w/Reflex Cultureon 2024 Bilirubin, SemiQt,Ur Negative Normal NEG [facility] Comment on above: Performed By: #### U AX ####[facility] [id number] [place], [place] [phone] Director: Miller Shirley MD Blood, Urine Negative Normal NEG [facility] [place] [facility] Comment on above: Performed By: #### U AX ####[facility] [id number] [place] [address] Lab Director: Miller Shirley MD Clarity (U) Clear Normal CLEAR [facility] Comment on above: Performed By: #### U AX ####[facility] [id number] [place] [address] Lab Director: Miller Shirley MD Color (U) Yellow Normal YEL [facility] Comment on above: Performed By: #### U AX ####[facility] [id number] [place] [address] Lab Director: Miller Shirley MD Comment Normal [facility] Comment on above: Performed By: #### U AX ####[facility] [id number] [place] [address] Lab Director: Miller Shirley MD Glucose Ql (U) 1000 mg/dL Abnormal NEG [facility] Comment on above: Performed By: #### U AX ####[facility] [id number] [place] [address] lab Director: Miller Shirley MD Ketones Ql (U) Negative Normal NEG [facility] Comment on above: Performed By: #### U AX ####[facility] [id number] [place] [address] lab Director: Miller Shirley MD Leukocyte esterase Test strip Ql (U) Negative Normal NEG [facility] Comment on above: Performed By: #### U AX ####[facility] [id number] [place] [address] lab Director: Miller Shirley MD Nitrite,Ur Negative Normal NEG [facility] Comment on above: Performed By: #### U AX ####[facility] [id number] [place] [address] lab Director: Miller Shirley MD PH,Ur 6.0 Normal 5.0-8.0 [facility] Comment on above: Performed By: #### U AX ####[facility] [id number] [place] [address] lab Director: Miller Shirley MD Protein Ql (U) TRACE Abnormal NEG [facility] Comment on above: Performed By: #### U AX ####[facility] [id number] [place] [address] lab Director: Miller Shirley MD Spec. [place],Ur 1.015 Normal 1.005-1.030 [facility] Comment on above: Performed By: #### U AX ####[facility] [id number] [place] [address] lab Director: Miller Shirley MD Urobilinogen,Ur Normal Normal 0.0-1.0 [facility] Comment on above: Performed By: #### U AX ####[facility] [id number] [place] [address] lab Director: Miller Shirley MD Urinalysis with Reflex to Cu ltureon 09-04-2024 Bilirubin Ql (U) Negative NEGATIVE [facility] Clarity (U) Clear Clear [facility] Color (U) Yellow Yellow [facility] Comment [facility] Glucose Test strip (U) [Mass/Vol] 1000 mg/dL Abnormal NEGATIVE mg/dL [facility] Hemoglobin Auto test strip Ql (U) Negative NEGATIVE [facility] Interpretation and review of laboratory results Abnormal [facility] Ketones (U) [Mass/Vol] Negative NEGATIVE mg/dL [facility] Leukocyte esterase Test strip Ql (U) Negative NEGATIVE [facility] Nitrite Ql (U) Negative NEGATIVE [facility] pH (U) 6.0 [pH] 5.0 - 8.[address] [facility] Protein (U) [Mass/Vol] TRACE Abnormal NEGATIVE mg/dL [facility] Specific gravity (U) [Rel density] 1.015 1.005 - 1.[address] [facility] Urobilinogen Qn (U) Normal 0.0 - 1. 0 EU/dL [facility] CT CHEST WO CONTRASTon 09-03 CT CHEST WO CONTRAST EXAMINATION: CT OF THE CHEST WITHOUT CONTRAST [...] No axillary lymphadenopathy. Bilateral breasts appear unremarkable. IMPRESSION: 1. No acute cardiopulmonary process. 2. Mild calcification of the aortic valve implicating aortic stenosis. 3. Coronary artery calcification. 4. Mild punctate left nephrolithiasis. Interpreted by: Pia Ortiz MD Signed by: Pia Ortiz MD 09/03/24 Final result Normal [facility] Basic Metabolic Panelon 08-17 Anion gap [Moles/Vol] 13 mmol/L 9 - 16 mmol/L [facility] Calcium [Mass/Vol] 9.5 mg/dL 8.6 - 10. 4 mg/dL [facility] Chloride [Moles/Vol] 97 mmol/L Low 98 - 10 7 mmol/L [facility] CO2 [Moles/Vol] 26 mmol/L 20 - 31 mmol/L [facility] Creatinine [Mass/Vol] 0.6 mg/dL 0.50 - 0.90 mg/dL [facility] Est, Glom Filt Rate - PINF [facility] Comment on above: These results are not intended for use [...] that affects renal tubular secretion. Glucose [Mass/Vol] 298 mg/dL High 74 - 99 mg/dL [facility] Potassium [Moles/Vol] 4.1 mmol/L 3.7 - 5.3 mmol/L [facility] Sodium [Moles/Vol] 136 mmol/L 136 - 145 mmol/L [facility] Urea nitrogen [Mass/Vol] 16 mg/dL 6 - 20 mg/dL [facility] Urea nitrogen/Creatinine [Mass ratio] 27 mg/mg High 9 - [address] [facility] Basic Metabolic Profon 09-02 Anion gap [Moles/Vol] 13 mmol/L Normal 9-16 [facility] Comment on above: Performed By: #### L IP, LIVP, MG, BMP, TROPI, CDP #### [facility] [address] [place], [place] [id number] Circular Head Saw Operator: Miller Shirley MD BUN/CRE Ratio 27 High 9-20 [facility] Comment on above: Performed By: #### L IP, LIVP, MG, BMP, TROPI, CDP #### [facility] [address] [place], [place] [id number] Circular Head Saw Operator: Miller Shirley MD Calcium [Mass/Vol] 9.5 mg/dL Normal 8.6-10.4 [facility] Comment on above: Performed By: #### L IP, LIVP, MG, BMP, TROPI, CDP #### [address] [place], [place] [phone] Circular Head Saw Operator: Miller Shirley MD Chloride [Moles/Vol] 97 mmol/L Low 98-107 [facility] Comment on above: Performed By: #### L IP, LIVP, MG, BMP, TROPI, CDP #### [address] [place], [place] [id number] Circular Head Saw Operator: Miller Shirley MD CO2 [Moles/Vol] 26 mmol/L Normal 20-31 [facility] Comment on above: Performed By: #### L IP, LIVP, MG, BMP, TROPI, CDP #### [facility] [address] [place], [place] [phone] Circular Head Saw Operator: Miller Shirley MD Creatinine [Mass/Vol] 0.6 mg/dL Normal 0.50-0.90 [facility] Comment on above: Performed By: #### L IP, LIVP, MG, BMP, TROPI, CDP #### [facility] [address] [place], [place] [id number] Circular Head Saw Operator: Miller Shirley MD GFR/1.73 sq M.predicted among non-blacks MDRD (S/P/Bld) [Vol rate/Area] mL/min/{1.73_m2} Normal >60 [facility] Comment on above: Result Comment: These results are not intended for [...] affects renal tubular secretion. Performed By: #### L IP, LIVP, MG, BMP, TROPI, CDP #### [address] [place] [address] Circular Head Saw Operator: Miller Shirley MD Glucose [Mass/Vol] 298 mg/dL High 74-99 [facility] Comment on above: Performed By: #### L IP, LIVP, MG, BMP, TROPI, CDP #### [address] [place] [address] Circular Head Saw Operator: Miller Shirley MD Potassium [Moles/Vol] 4.1 mmol/L Normal 3.7-5.3 [facility] Comment on above: Performed By: #### L IP, LIVP, MG, BMP, TROPI, CDP #### [address] [place] [address] Circular Head Saw Operator: Miller Shirley MD Sodium [Moles/Vol] 136 mmol/L Normal 136-145 [facility] Comment on above: Performed By: #### L IP, LIVP, MG, BMP, TROPI, CDP #### [address] [place] [address] Circular Head Saw Operator: Miller Shirley MD Urea nitrogen [Mass/Vol] 16 mg/dL Normal 6-20 [facility] Comment on above: Performed By: #### L IP, LIVP, MG, BMP, TROPI, CDP #### [address] [place] [address] Circular Head Saw Operator: Miller Shirley MD CBC with Auto Differentialon 09-02-2024 Basophils (Bld) [#/Vol] 0.04 10*3/uL [facility] Immature granulocytes (Bld) [#/Vol] [facility] Interpretation and review of laboratory results Abnormal [facility] Lymphocytes/100 WBC (Bld) 2.16 % [facility] Monocytes/100 WBC (Bld) 0.59 % [facility] Neutrophils/100 WBC (Bld) 54 % 36 - 65 % [facility] Nucleated RBC/100 WBC (Bld) [Ratio] 0.0 % 0.0 per [address] [facility] Segmented neutrophils/100 WBC (Bld) 3.39 % [facility] WBC other (Bld) [#/Vol] 6.3 [facility] CBC with Diffon 09-02-2024 Basophils/100 WBC (Bld) 1 % Normal 0-[address] [facility] Comment on above: Performed By: #### L IP, LIVP, MG, BMP, TROPI, CDP #### [address] [place] [address] Circular Head Saw Operator: Miller Shirley MD Eosinophils (Bld) [#/Vol] 0.11 10*3/uL Normal 0.00-0.[address] [facility] Comment on above: Performed By: #### L IP, LIVP, MG, BMP, TROPI, CDP #### [address] [place] [address] Circular Head Saw Operator: Miller Shirley MD Eosinophils/100 WBC (Bld) 2 % Normal 1-[address] [facility] Comment on above: Performed By: #### L IP, LIVP, MG, BMP, TROPI, CDP #### [address] [place], [place] [id number] Circular Head Saw Operator: Miller Shirley MD Erythrocyte distribution width (RBC) [Ratio] 12.4 % Normal 11.8-14.[address] [facility] Comment on above: Performed By: #### L IP, LIVP, MG, BMP, TROPI, CDP #### [address] [place], [place] [id number] Circular Head Saw Operator: Miller Shirley MD Hematocrit (Bld) [Volume fraction] 42.8 % Normal 36.3-47.[address] [facility] Comment on above: Performed By: #### L IP, LIVP, MG, BMP, TROPI, CDP #### [address] [place] [address] Circular Head Saw Operator: Miller Shirley MD Hemoglobin (Bld) [Mass/Vol] 15.0 g/dL Normal 11.9-15.[address] [facility] Comment on above: Performed By: #### L IP, LIVP, MG, BMP, TROPI, CDP #### [address] [place], [place] [id number] Circular Head Saw Operator: Miller Shirley MD Immature granulocytes/100 WBC (Bld) 0 % Normal [address] [facility] Comment on above: Performed By: #### L IP, LIVP, MG, BMP, TROPI, CDP #### [address] [place], [facility] Circular Head Saw Operator: Miller Shirley MD Lymphocytes/100 WBC (Bld) 34 % Normal 24-[address] [facility] Comment on above: Performed By: #### L IP, LIVP, MG, BMP, TROPI, CDP #### [address] [place] [address] Circular Head Saw Operator: Miller Shirley MD MCH (RBC) [Entitic mass] 29.6 pg Normal 25.2-33.[address] [facility] Comment on above: Performed By: #### L IP, LIVP, MG, BMP, TROPI, CDP #### [address] [place] [address] Circular Head Saw Operator: Miller Shirley MD MCHC (RBC) [Mass/Vol] 35.0 g/dL High 28.4-34.[address] [facility] Comment on above: Performed By: #### L IP, LIVP, MG, BMP, TROPI, CDP #### [address] [place], [facility] Circular Head Saw Operator: Miller Shirley MD MCV (RBC) [Entitic vol] 84.6 fL Normal 82.6-102.[address] [facility] Comment on above: Performed By: #### L IP, LIVP, MG, BMP, TROPI, CDP #### [address] [place], [facility]83 Circular Head Saw Operator: Miller Shirley MD Monocytes/100 WBC (Bld) 9 % Normal 3-[address] [facility] Comment on above: Performed By: #### L IP, LIVP, MG, BMP, TROPI, CDP #### [address] [place], [facility]83 Circular Head Saw Operator: Miller Shirley MD Platelet mean volume (Bld) [Entitic vol] 9.7 fL Normal 8.1-13.[address] [facility] Comment on above: Performed By: #### L IP, LIVP, MG, BMP, TROPI, CDP #### [address] [place], [facility]83 Circular Head Saw Operator: Miller Shirley MD Platelets (Bld) [#/Vol] 353 10*3/uL Normal 138-[address] [facility] Comment on above: Performed By: #### L IP, LIVP, MG, BMP, TROPI, CDP #### [address] [place], [facility]83 Circular Head Saw Operator: Miller Shirley MD RBC (Bld) [#/Vol] 5.06 10*6/uL Normal 3.95-5.11 [facility] Comment on above: Performed By: #### L IP, LIVP, MG, BMP, TROPI, CDP #### [facility] [address] [place], [place] [id number] Circular Head Saw Operator: Miller Shirley MD Abs. Basophil 0.04 k/uL Normal 0.00-0.20 [facility] Comment on above: Performed By: #### L IP, LIVP, MG, BMP, TROPI, CDP #### [address] [place], [place] [address] Circular Head Saw Operator: Miller Shirley MD Abs.Imm.Granulocyte <0.03 Normal 0.00-0.30 [facility] Comment on above: Performed By: #### L IP, LIVP, MG, BMP, TROPI, CDP #### [address] [place], [place] [address] Circular Head Saw Operator: Miller Shirley MD Abs.Neutrophil (Seg) 3.39 k/uL Normal 1.50-8.10 [facility] Comment on above: Performed By: #### L IP, LIVP, MG, BMP, TROPI, CDP #### [address] [place], [place] [address] Circular Head Saw Operator: Miller Shirley MD Lymphocytes (Bld) [#/Vol] 2.16 10*3/uL Normal 1.10-3.70 [facility] Comment on above: Performed By: #### L IP, LIVP, MG, BMP, TROPI, CDP #### [address] [place], [place] [address] Circular Head Saw Operator: Miller Shirlye MD Monocytes (Bld) [#/Vol] 0.59 10*3/uL Normal 0.10-1.20 [facility] Comment on above: Performed By: #### L IP, LIVP, MG, BMP, TROPI, CDP #### [facility] [address] [place], [place] [address] Circular Head Saw Operator: Miller Shirley MD Neutrophil (Seg) 54 % Normal 36-65 [facility] Comment on above: Performed By: #### L IP, LIVP, MG, BMP, TROPI, CDP #### [facility] [address] [place], [place] [address] Circular Head Saw Operator: Miller Shirley MD NRBC Automated 0.0 per 100 WBC Normal 0.0 [facility] Comment on above: Performed By: #### L IP, LIVP, MG, BMP, TROPI, CDP #### [facility] [address] [place], [place] 08[address] Circular Head Saw Operator: Miller Shirley MD WBC (Bld) [#/Vol] 6.3 10*3/uL Normal 3.5-11.3 [facility] Comment on above: Performed By: #### L IP, LIVP, MG, BMP, TROPI, CDP #### [address] [place], [place] [address] Circular Head Saw Operator: Miller Shirley MD CT ABDOMEN PELVIS WO CONTRAS Ton 09-02-2024 CT ABDOMEN PELVIS WO CONTRAST EXAMINATION: CT OF THE ABDOMEN AND PELVIS WITHOUT CONTRAST 09/02/2024 5:55 pm TECHNIQUE: CT of the abdomen and pelvis was performed without the administration of intravenous contrast. Multiplanar reformatted images are provided for review. Automated exposure control, iterative reconstruction, and/or weight based adjustment of the mA/kV was utilized to reduce the radiation dose to as low as reasonably achievable. COMPARISON: 04/13/2021. HISTORY: ORDERING SYSTEM PROVIDED HISTORY: sepsis TECHNOLOGIST PROVIDED HISTORY: sepsis Decision Support Exception - unselect if not a suspected or confirmed emergency medical condition->Emergency Medical Condition (MA) FINDINGS: Lower Chest: The lung bases are clear. There is trace pericardial effusion. Organs: The liver, spleen, gallbladder, pancreas and adrenal glands appear unremarkable for a non contrasted study. The right kidney demonstrates no calcifications. There are a few punctate less than 1 mm calculi in the left kidney. No hydronephrosis is seen. No ureteral or bladder calculi are noted. There is an exophytic cyst involving the left kidney measuring 2.8 x 2.3 cm. GI/Bowel: Evaluation of the bowel is limited as no enteric contrast was given. No dilated loops of bowel are seen. I do not see a dilated appendix.There is a large amount of stool seen throughout the colon. Pelvis: No pelvic masses or fluid collections are seen. The uterus and adnexal structures appear unremarkable. Peritoneum/Retroperitone um: The abdominal aorta is not aneurysmal. There are shotty mesenteric and retroperitoneal lymph nodes but no retroperitoneal or mesenteric lymphadenopathy is seen. Bones/Soft Tissues: No acute bony abnormalities are noted. There are shotty inguinal lymph nodes noted. IMPRESSION: 1. No acute intra-abdominal or pelvic abnormality with limitations for a noncontrast CT scan. 2. Punctate nonobstructive left kidney stones. 3. Constipation with large amount of stool seen throughout the colon. Interpreted by: Yonatan Gupta MD Signed by: Yonatan Gupta MD 09/02/24 Final result Normal [facility] CT Abdomen and Pelvis WO con traston 09-02-2024 1. No acute intra-abdominal or pelvic abnormality with limitations for a noncontrast CT scan. 2. Punctate nonobstructive left kidney stones. 3. Constipation with large amount of stool seen throughout the colon. [facility] RIS CONSOLIDATED EXAMINATION: CT OF THE ABDOMEN AND PELVIS WITHOUT CONTRAST 09/02/2024 5:55 pm TECHNIQUE: CT of the abdomen and pelvis was performed without the administration of intravenous contrast. Multiplanar reformatted images are provided for review. Automated exposure control, iterative reconstruction, and/or weight based adjustment of the mA/kV was utilized to reduce the radiation dose to as low as reasonably achievable. COMPARISON: 04/13/2021. HISTORY: ORDERING SYSTEM PROVIDED HISTORY: sepsis TECHNOLOGIST PROVIDED HISTORY: sepsis Decision Support Exception - unselect if not a suspected or confirmed emergency medical condition->Emergency Medical Condition (MA) FINDINGS: Lower Chest: The lung bases are clear. There is trace pericardial effusion. Organs: The liver, spleen, gallbladder, pancreas and adrenal glands appear unremarkable for a non contrasted study. The right kidney demonstrates no calcifications. There are a few punctate less than 1 mm calculi in the left kidney. No hydronephrosis is seen. No ureteral or bladder calculi are noted. There is an exophytic cyst involving the left kidney measuring 2.8 x 2.3 cm. GI/Bowel: Evaluation of the bowel is limited as no enteric contrast was given. No dilated loops of bowel are seen. I do not see a dilated appendix.There is a large amount of stool seen throughout the colon. Pelvis: No pelvic masses or fluid collections are seen. The uterus and adnexal structures appear unremarkable. Peritoneum/Retroperitone um: The abdominal aorta is not aneurysmal. There are shotty mesenteric and retroperitoneal lymph nodes but no retroperitoneal or mesenteric lymphadenopathy is seen. Bones/Soft Tissues: No acute bony abnormalities are noted. There are shotty inguinal lymph nodes noted. [facility] RIS CONSOLIDATED Yonatan Gputa MD - 09/02/2024 EXAMINATION: CT OF THE ABDOMEN AND PELVIS WITHOUT CONTRAST 09/02/2024 5:55 pm TECHNIQUE: CT of the abdomen and pelvis was performed without the administration of intravenous contrast. Multiplanar reformatted images are provided for review. Automated exposure control, iterative reconstruction, and/or weight based adjustment of the mA/kV was utilized to reduce the radiation dose to as low as reasonably achievable. COMPARISON: 04/13/2021. HISTORY: ORDERING SYSTEM PROVIDED HISTORY: sepsis TECHNOLOGIST PROVIDED HISTORY: sepsis Decision Support Exception - unselect if not a suspected or confirmed emergency medical condition->Emergency Medical Condition (MA) FINDINGS: Lower Chest: The lung bases are clear. There is trace pericardial effusion. Organs: The liver, spleen, gallbladder, pancreas and adrenal glands appear unremarkable for a non contrasted study. The right kidney demonstrates no calcifications. There are a few punctate less than 1 mm calculi in the left kidney. No hydronephrosis is seen. No ureteral or bladder calculi are noted. There is an exophytic cyst involving the left kidney measuring 2.8 x 2.3 cm. GI/Bowel: Evaluation of the bowel is limited as no enteric contrast was given. No dilated loops of bowel are seen. I do not see a dilated appendix.There is a large amount of stool seen throughout the colon. Pelvis: No pelvic masses or fluid collections are seen. The uterus and adnexal structures appear unremarkable. Peritoneum/Retroperitone um: The abdominal aorta is not aneurysmal. There are shotty mesenteric and retroperitoneal lymph nodes but no retroperitoneal or mesenteric lymphadenopathy is seen. Bones/Soft Tissues: No acute bony abnormalities are noted. There are shotty inguinal lymph nodes noted. IMPRESSION: 1. No acute intra-abdominal or pelvic abnormality with limitations for a noncontrast CT scan. 2. Punctate nonobstructive left kidney stones. 3. Constipation with large amount of stool seen throughout the colon. [facility] Radiology Study observation (narrative) [facility] CT Abdomen and Pelvis WO con trastOrdered By: Yonatan Gupta on 09-02-[address] [facility] Work Phone: D-Dimer Teston 09-02-2024 D-Dimer Test <0.27 Normal 0.00-0.59 [facility] Comment on above: Result Comment: When combined with a low clinical probability, a D dimer value of <0.50 ug/mL FEU is considered negative for DVT and PE (negative predictive value of 98%, sensitivity of 97%). If this test is not being used to help rule out DVT and PE, then the following reference range should be utilized: 0.00 - 0.59 ug/mL FEU. The D-Dimer assay is intended for use as an aid in the diagnosis of venous thromboembolism (DVT and PE) and the results should be interpreted in conjunction with the patient's medical history, clinical presentation, and other findings. Elevated levels of D-dimer activity can be seen in any state of coagulation activation and is not recommended in patients with therapeutic dose anticoagulant therapy for >24 hours, fibrinolytic therapy within the previous 7 days, trauma or surgery within the previous 4 weeks, disseminated malignancies, aortic aneurysm, sepsis, severe infections, pneumonia, severe skin infections, liver cirrhosis, advanced age, coronary disease, diabetes, and . A very low percentage of patients with DVT may yield D-dimer results below the cutoff of 0.5 ug/mL FEU. This is known to be more prevalent in patients with distal DVT. Performed By: #### L IP, LIVP, MG, BMP, TROPI, CDP #### [facility] [address] [place] [address] Circular Head Saw Operator: Miller Shirley MD D-Dimer, Quantitativeon 08-17 Fibrin D-dimer FEU (PPP) [Mass/Vol] [facility] Comment on above: When combined with a low clinical probability, a D dimer value of <0.50 ug/mL FEU is considered negative for DVT and PE (negative predictive value of 98%, sensitivity of 97%). If this test is not being used to help rule out DVT and PE, then the following reference range should be utilized: 0.00 - 0.59 ug/mL FEU. The D-Dimer assay is intended for use as an aid in the diagnosis of venous thromboembolism (DVT and PE) and the results should be interpreted in conjunction with the patient's medical history, clinical presentation, and other findings. Elevated levels of D-dimer activity can be seen in any state of coagulation activation and is not recommended in patients with therapeutic dose anticoagulant therapy for >24 hours, fibrinolytic therapy within the previous 7 days, trauma or surgery within the previous 4 weeks, disseminated malignancies, aortic aneurysm, sepsis, severe infections, pneumonia, severe skin infections, liver cirrhosis, advanced age, coronary disease, diabetes, and . A very low percentage of patients with DVT may yield D-dimer results below the cutoff of 0.5 ug/mL FEU. This is known to be more prevalent in patients with distal DVT. [facility] Hepatic Function Panelon Albumin [Mass/Vol] 3.9 g/dL 3.5 - 5.2 g/dL [facility] Albumin/Globulin [Mass ratio] 1.6 {ratio} 1.0 - 2.[address] [facility] ALP [Catalytic activity/Vol] 106 U/L High 35 - 104 U/L [facility] ALT [Catalytic activity/Vol] 19 U/L 10 - 35 U/L [facility] AST [Catalytic activity/Vol] 16 U/L 10 - 35 U/L [facility] Bilirubin [Mass/Vol] 0.2 mg/dL 0.00 - 1.20 mg/dL [facility] Bilirubin.direct [Mass/Vol] mg/dL 0.00 - 0.30 mg/dL [facility] Bilirubin.indirect [Mass/Vol] Can not be calculated 0.0 - 1.0 mg/dL [facility] Protein [Mass/Vol] 6.4 g/dL Low 6.6 - 8.7 g/dL [facility] Laboratory - Chemistry and C hemistry - challengeon 09-02-2024 Ketones Ql (U) TRACE mg/dL Abnormal (NEG ) [facility] Comment on above: Note: Responsible Ob banquet food server: ASHA SERRANO ([id number]) Albumin [Mass/Vol] 3.9 g/dL (3.5-5.2 ) [facility] Comment on above: Note: Responsible Ob banquet food server: EMPLOYEE NON-LAB (224) ALT [Catalytic activity/Vol] 19 U/L (10-35 ) [facility] Comment on above: Note: Responsible Ob banquet food server: EMPLOYEE NON-LAB (224) Anion gap [Moles/Vol] 13 mmol/L (9-16 ) [facility] Comment on above: Note: Responsible Ob banquet food server: EMPLOYEE NON-LAB (224) AST [Catalytic activity/Vol] 16 U/L (10-35 ) [facility] Comment on above: Note: Responsible Ob banquet food server: EMPLOYEE NON-LAB (224) Bilirubin [Mass/Vol] 0.2 mg/dL (0.00-1 .20 ) [facility] Comment on above: Note: Responsible Ob banquet food server: EMPLOYEE NON-LAB (224) Bilirubin.indirect [Mass/Vol] mg/dL (0.00-0.30 ) [facility] Comment on above: Note: Responsible Ob banquet food server: EMPLOYEE NON-LAB (224) Calcium [Mass/Vol] 9.5 mg/dL (8.6-10.4 ) [facility] Comment on above: Note: Responsible Ob banquet food server: EMPLOYEE NON-LAB (224) Chloride [Moles/Vol] 97 mmol/L Low (98-107 ) [facility] Comment on above: Note: Responsible Ob banquet food server: EMPLOYEE NON-LAB (224) CO2 [Moles/Vol] 26 mmol/L (20-31 ) [facility] Comment on above: Note: Responsible Ob banquet food server: EMPLOYEE NON-LAB (224) Creatinine [Mass/Vol] 0.6 mg/dL (0.50- 0.90 ) [facility] Comment on above: Note: Responsible Ob banquet food server: EMPLOYEE NON-LAB (224) GFR/1.73 sq M.predicted among non-blacks MDRD (S/P/Bld) [Vol rate/Area] mL/min/{1.73_m2} (>60 ) [facility] Comment on above: Note: These results are not intended for use in patients <18 years of age.eGFR results are calculated without a race factor using the 2020 CKD-EPIequation.Careful clinical correlation is recommended, particularly when comparing toresults calculated using previous equations.The CKD-EPI equation is less accurate in patients with extremes of muscle mass,extra-renal metabolism of creatine, excessive creatine ingestion, or followingtherapy that affects renal tubular secretion.Responsible Observer: EMPLOYEE NON-LAB (224) Glucose [Mass/Vol] 298 mg/dL High (74-99 ) [facility] Comment on above: Note: Responsible Ob banquet food server: EMPLOYEE NON-LAB (224) Lipase [Catalytic activity/Vol] 20 U/L (13-60 ) [facility] Comment on above: Note: Responsible Ob banquet food server: EMPLOYEE NON-LAB (224) Magnesium [Mass/Vol] 1.9 mg/dL (1.6-2.6 ) [facility] Comment on above: Note: Responsible Ob banquet food server: EMPLOYEE NON-LAB (224) Potassium [Moles/Vol] 4.1 mmol/L (3.7-5.3 ) [facility] Comment on above: Note: Responsible Ob banquet food server: EMPLOYEE NON-LAB (224) Protein [Mass/Vol] 6.4 g/dL Low (6.6-8.7 ) [facility] Comment on above: Note: Responsible Ob banquet food server: EMPLOYEE NON-LAB (224) Sodium [Moles/Vol] 136 mmol/L (136-145 ) [facility] Comment on above: Note: Responsible Ob banquet food server: EMPLOYEE NON-LAB (224) Urea nitrogen [Mass/Vol] 16 mg/dL (6-20 ) [facility] Comment on above: Note: Responsible Ob banquet food server: EMPLOYEE NON-LAB (224) Laboratory - Hematology and Cell countson 09-02-2024 Basophils/100 WBC (Bld) 1 % (0-2 ) [facility] Comment on above: Note: Responsible Ob banquet food server: XNT AUTOFILE (3019) Eosinophils (Bld) [#/Vol] 0.11 10*3/uL (0.00-0.44 ) [facility] Comment on above: Note: Responsible Ob banquet food server: XNT AUTOFILE (3019) Eosinophils/100 WBC (Bld) 2 % (1-4 ) [facility] Comment on above: Note: Responsible Ob banquet food server: XNT AUTOFILE (3019) Erythrocyte distribution width (RBC) [Ratio] 12.4 % (11.8-14.4 ) [facility] Comment on above: Note: Responsible Ob banquet food server: XNT AUTOFILE (3019) Hematocrit (Bld) [Volume fraction] 42.8 % (36.3-47.1 ) [facility] Comment on above: Note: Responsible Ob banquet food server: XNT AUTOFILE (3019) Hemoglobin (Bld) [Mass/Vol] 15.0 g/dL (11.9-15.1 ) [facility] Comment on above: Note: Responsible Ob banquet food server: XNT AUTOFILE (3019) Immature granulocytes/100 WBC (Bld) 0 % (0 ) [facility] Comment on above: Note: Responsible Ob banquet food server: XNT AUTOFILE (3019) Lymphocytes (Bld) [#/Vol] 2.16 10*3/uL (1.10-3.70 ) [facility] Comment on above: Note: Responsible Ob banquet food server: XNT AUTOFILE (3019) Lymphocytes/100 WBC (Bld) 34 % (24-43 ) [facility] Comment on above: Note: Responsible Ob banquet food server: XNT AUTOFILE (3019) MCH (RBC) [Entitic mass] 29.6 pg (25.2-33.5 ) [facility] Comment on above: Note: Responsible Ob banquet food server: XNT AUTOFILE (3019) MCHC (RBC) [Mass/Vol] 35.0 g/dL High (28.4- 34.8 ) [facility] Comment on above: Note: Responsible Ob banquet food server: XNT AUTOFILE (3019) MCV (RBC) [Entitic vol] 84.6 fL (82.6-102.9 ) [facility] Comment on above: Note: Responsible Ob banquet food server: XNT AUTOFILE (3019) Monocytes (Bld) [#/Vol] 0.59 10*3/uL (0.10-1.20 ) [facility] Comment on above: Note: Responsible Ob banquet food server: XNT AUTOFILE (3019) Monocytes/100 WBC (Bld) 9 % (3-12 ) [facility] Comment on above: Note: Responsible Ob banquet food server: XNT AUTOFILE (3019) Platelet mean volume (Bld) [Entitic vol] 9.7 fL (8.1-13.5 ) [facility] Comment on above: Note: Responsible Ob banquet food server: XNT AUTOFILE (3019) Platelets (Bld) [#/Vol] 353 10*3/uL (138-453 ) [facility] Comment on above: Note: Responsible Ob banquet food server: XNT AUTOFILE (3019) RBC (Bld) [#/Vol] 5.06 10*6/uL (3.95-5.11 ) [facility] Comment on above: Note: Responsible Ob banquet food server: XNT AUTOFILE (3019) Segmented neutrophils/100 WBC (Bld) 54 % (36-65 ) [facility] Comment on above: Note: Responsible Ob banquet food server: XNT AUTOFILE (3019) WBC (Bld) [#/Vol] 6.3 10*3/uL (3.5-11.3 ) [facility] Comment on above: Note: Responsible Ob banquet food server: XNT AUTOFILE (3019) Laboratory - Specimen inform ationon 09-02-2024 Clarity (U) Clear (CLEAR ) [facility] Comment on above: Note: Responsible Ob banquet food server: ASHA SERRANO ([id number]) Color (U) Yellow (YEL ) [facility] Comment on above: Note: Responsible Ob banquet food server: ASHA SERRANO ([id number]) Laboratory - Urinalysison Epithelial cells LM Ql (Urine sed) 0 TO 2 /HPF (0-25 ) [facility] Comment on above: Note: Responsible Ob banquet food server: ASHA SERRANO ([id number]) Leukocyte esterase Test strip Ql (U) Negative (NEG ) [facility] Comment on above: Note: Responsible Ob banquet food server: ASHA SERRANO ([id number]) Lactate, Sepsison 09-02-2024 Interpretation and review of laboratory results Abnormal [facility] Lactate (BldV) [Moles/Vol] 3.6 mmol/L High 0.5 - 1.9 mmol/L [facility] Lactic Acid, Sepsis 3.6 mmol/L High 0.5-1.9 [facility] Comment on above: Performed By: #### L IP, LIVP, MG, BMP, TROPI, CDP #### [facility] [address] [place] [address] Circular Head Saw Operator: Miller Shirley MD Interpretation and review of laboratory results Abnormal [facility] Lactate (BldV) [Moles/Vol] 4.0 mmol/L High 0.5 - 1.9 mmol/L [facility] Lactic Acid, Sepsis 4.0 mmol/L High 0.5-1.9 [facility] Comment on above: Performed By: #### L IP, LIVP, MG, BMP, TROPI, CDP #### [facility] [address] [place] [address] Circular Head Saw Operator: Miller Shilrey MD Lipaseon 09-02-2024 Lipase [Catalytic activity/Vol] 20 U/L 13 - 60 U/L [facility] Lipase [Catalytic activity/Vol] 20 U/L Normal 13-60 [facility] Comment on above: Performed By: #### L IP, LIVP, MG, BMP, TROPI, CDP #### [facility] [address] [place] [address] Circular Head Saw Operator: Miller Shirley MD Liver Profileon 09-02-2024 Albumin [Mass/Vol] 3.9 g/dL Normal 3.5-5.2 [facility] Comment on above: Performed By: #### L IP, LIVP, MG, BMP, TROPI, CDP #### [facility] [address] [place] [address] Circular Head Saw Operator: Miller Shirley MD Albumin/Glob Ratio 1.6 Normal 1.0-2.5 [facility] Comment on above: Performed By: #### L IP, LIVP, MG, BMP, TROPI, CDP #### [facility] [address] [place] [address] [place], [place] [id number] Circular Head Saw Operator: Miller Shirley MD Alkaline Phos 106 U/L High 35-104 [facility] Comment on above: Performed By: #### L IP, LIVP, MG, BMP, TROPI, CDP #### [facility] [address] [place], [place] [id number] Circular Head Saw Operator: Miller Shirley MD ALT [Catalytic activity/Vol] 19 U/L Normal 10-35 [facility] Comment on above: Performed By: #### L IP, LIVP, MG, BMP, TROPI, CDP #### [address] [place], [place] [id number] Circular Head Saw Operator: Miller Shirley MD AST [Catalytic activity/Vol] 16 U/L Normal 10-35 [facility] Comment on above: Performed By: #### L IP, LIVP, MG, BMP, TROPI, CDP #### [address] [place] [address] Circular Head Saw Operator: Miller Shirley MD Bilirubin [Mass/Vol] 0.2 mg/dL Normal 0.00-1.20 [facility] Comment on above: Performed By: #### L IP, LIVP, MG, BMP, TROPI, CDP #### [address] [place], [place] [id number] Circular Head Saw Operator: Miller Shirley MD Bilirubin, Indirect Can not be calculated Normal 0.0-1 .0 [facility] Comment on above: Performed By: #### L IP, LIVP, MG, BMP, TROPI, CDP #### [address] [place] [address] Circular Head Saw Operator: Miller Shirley MD Bilirubin.indirect [Mass/Vol] mg/dL Normal 0.00-0.30 [facility] Comment on above: Performed By: #### L IP, LIVP, MG, BMP, TROPI, CDP #### [facility] [address] [place] [address] Circular Head Saw Operator: Miller Shirley MD Protein [Mass/Vol] 6.4 g/dL Low 6.6-8.7 [facility] Comment on above: Performed By: #### L IP, LIVP, MG, BMP, TROPI, CDP #### [facility] [address] [place], [place] [id number] Circular Head Saw Operator: Miller Shirley MD Magnesiumon 09-02-2024 Magnesium [Mass/Vol] 1.9 mg/dL 1.6 - 2 .6 mg/dL [facility] Magnesium [Mass/Vol] 1.9 mg/dL Normal 1.6-2.6 [facility] Comment on above: Performed By: #### L IP, LIVP, MG, BMP, TROPI, CDP #### [facility] [address] [place] [address] Circular Head Saw Operator: Miller Shirley MD Microscopic Urinalysison Casts LM.LPF (Urine sed) [#/Area] 0 TO 2 HYALINE /LPF [facility] Epithelial cells LM.HPF (Urine sed) [#/Area] 0 TO [address] [facility] Interpretation and review of laboratory results Abnormal [facility] Mucus Ql (Urine sed) 1+ Abnormal None [facility] RBC LM.HPF (Urine sed) [#/Area] None [facility] WBC LM.HPF (Urine sed) [#/Area] 0 TO 2 [facility] No Panel Informationon 09-02 Lactic Acid, Sepsis 3.6 mmol/L High (0.5-1.9 ) [facility] Comment on above: Note: Responsible Ob banquet food server: EMPLOYEE NON-LAB (224) Reported Physicians See Note [facility] Comment on above: Note: Reported Physi cians:Ordering: STRUGALSKI, CHAIM TAttending: STRUGALSKI, RORYReferring: Kavita Qureshi Troponin, High Sens 8 ng/L (0-14 ) [facility] Comment on above: Note: High Sensitivi ty Troponin values cannot be compared with other Troponinmethodologies.Responsible Observer: EMPLOYEE NON-LAB (224) Bilirubin, SemiQt,Ur Negative (NEG ) [facility] Comment on above: Note: Responsible Ob banquet food server: ASHA SERRANO ([id number]) Blood, Urine Negative (NEG ) [facility] Comment on above: Note: Responsible Ob banquet food server: ASHA SERRANO (57) Casts 0 TO 2 /LPF [facility] Comment on above: Note: HYALINERespons ible Observer: ASHA SERRANO (57) Glucose,Semi-qnt,Ur 3+ mg/dL Abnormal (NEG ) [facility] Comment on above: Note: Responsible Ob banquet food server: ASHA SERRANO (57) Mucus Strands 1+ Abnormal (NONE ) [facility] Comment on above: Note: Responsible Ob banquet food server: ASHA SERRANO (57) Nitrite,Ur Negative (NEG ) [facility] Comment on above: Note: Responsible Ob banquet food server: ASHA SERRANO (57) PH,Ur 6.0 (5.0-9.0 ) [facility] Comment on above: Note: Responsible Ob banquet food server: ASHA SERRANO (57) Protein, Semi-qnt,Ur Negative (NEG ) [facility] Comment on above: Note: Responsible Ob banquet food server: ASHA SERRANO (57) Reported Physicians See Note [facility] Comment on above: Note: Reported Physi cians:Ordering: STRUGALSKI, CHAIM TAttending: STRUGALSKI, RORYReferring: Kavita Qureshi Spec. [place],Ur 1.025 High (1.010-1.02 0 ) [facility] Comment on above: Note: Responsible Ob banquet food server: ASHA SERRANO (57) Urine RBC's None /HPF (0-2 ) [facility] Comment on above: Note: Responsible Ob banquet food server: ASHA SERRANO (57) Urine WBC's 0 TO 2 /HPF (0-5 ) [facility] Comment on above: Note: Responsible Ob banquet food server: ASHA SERRANO (5768) Urobilinogen,Ur Normal EU/dL (0.0-1.0 ) [facility] Comment on above: Note: Responsible Ob banquet food server: ASHA SERRANO ([id number]) Interpretation and review of laboratory results Abnormal [facility] Abs. Basophil 0.04 k/uL (0.00-0.20 ) [facility] Comment on above: Note: Responsible Ob banquet food server: XNT AUTOFILE (3019) Abs.Imm.Granulocyte <0.03 k/uL (0.00-0. 30 ) [facility] Comment on above: Note: Responsible Ob banquet food server: XNT AUTOFILE (3019) Abs.Neutrophil (Seg) 3.39 k/uL (1.50-8 .10 ) [facility] Comment on above: Note: Responsible Ob banquet food server: XNT AUTOFILE (3019) Albumin/Glob Ratio 1.6 (1.0-2.5 ) [facility] Comment on above: Note: Responsible Ob banquet food server: EMPLOYEE NON-LAB (224) Alkaline Phos 106 U/L High (35-104 ) [facility] Comment on above: Note: Responsible Ob banquet food server: EMPLOYEE NON-LAB (224) Bilirubin, Indirect Can not be calculate d mg/dL (0.0-1.0 ) [facility] Comment on above: Note: Responsible Ob banquet food server: EMPLOYEE NON-LAB (224) BUN/CRE Ratio 27 High (9-20 ) [facility] Comment on above: Note: Responsible Ob banquet food server: EMPLOYEE NON-LAB (224) Cult, Blood See Note [facility] Comment on above: Note: Specimen Descr iption .BLOODSpecial Requests 20ML LACCulture NO GROWTH 7 DAYSReport Status FINAL 09/09/2024 D-Dimer Test <0.27 ug/mL_FEU (0.00-0.59 ) [facility] Comment on above: Note: When combined with a low clinical probability, a D dimer value of <0.50 ug/mLFEU is considered negative for DVT and PE (negative predictive value of 98%,sensitivity of 97%).If this test is not being used to help rule out DVT and PE, then the followingreference range should be utilized: 0.00 - 0.59 ug/mL FEU.The D-Dimer assay is intended for use as an aid in the diagnosis of venousthromboembolism (DVT and PE) and the results should be interpreted inconjunction with the patient's medical history, clinical presentation, andother findings.Elevated levels of D-dimer activity can be seen in any state of coagulationactivation and is not recommended in patients with therapeutic doseanticoagulant therapy for >24 hours, fibrinolytic therapy within the previous 7days, trauma or surgery within the previous 4 weeks,disseminated malignancies, aortic aneurysm, sepsis, severe infections,pneumonia, severe skin infections, liver cirrhosis, advanced age, coronarydisease, diabetes, and .A very low percentage of patients with DVT may yield D-dimer results below thecutoff of 0.5 ug/mL FEU. This is known to be more prevalent in patients withdistal DVT.Responsible Observer: ALISON COHEN (1938) Lactic Acid, Sepsis 4.0 mmol/L High (0.5-1.9 ) [facility] Comment on above: Note: Responsible Ob banquet food server: EMPLOYEE NON-LAB (224) NRBC Automated 0.0 per_100_WBC (0.0 ) [facility] Comment on above: Note: Responsible Ob banquet food server: XNT AUTOFILE ([id number]) Reported Physicians See Note [facility] Comment on above: Note: Reported Physi cians:Ordering: STRUGALSKI, RORYAttending: CINTRA, THAISReferring: Kavita Qureshi Note: Reported Physi cians:Ordering: STRUGALSKI, CHAIM TAttending: STRUGALSKI, RORYReferring: Kavita Qureshi Thyroid Stim. Horm. 0.85 uIU/mL (0.27-4. 20 ) [facility] Comment on above: Note: Responsible Ob banquet food server: EMPLOYEE NON-LAB (224) Troponin, High Sens 9 ng/L (0-14 ) [facility] Comment on above: Note: High Sensitivi ty Troponin values cannot be compared with other Troponinmethodologies.Responsible Observer: EMPLOYEE NON-LAB (224) TSHon 09-02-2024 TSH Qn 0.85 m[IU]/L [facility] Bon [facility] Thyroid Stim. Horm.on 2024 Thyroid Stim. Horm. 0.85 uIU/mL Normal 0.27-4.20 [facility] Comment on above: Performed By: #### L IP, LIVP, MG, BMP, TROPI, CDP #### [facility] [address] [place] [address] Circular Head Saw Operator: Miller Shirley MD Troponinon 09-02-2024 Troponin I.cardiac High sensitivity method [Mass/Vol] 8 ng/L 0 - 14 ng/L [facility] Comment on above: High Sensitivity Tro ponin values cannot be compared with other Troponin methodologies. [facility] Troponin, High Sens 8 ng/L Normal 0-14 [facility] Comment on above: Result Comment: High Sensitivity Troponin values cannot be compared with other Troponin methodologies. Performed By: #### L IP, LIVP, MG, BMP, TROPI, CDP #### [facility] [address] [place] [address] Circular Head Saw Operator: Miller Shirley MD Troponin I.cardiac High sensitivity method [Mass/Vol] 9 ng/L 0 - 14 ng/L [facility] Comment on above: High Sensitivity Tro ponin values cannot be compared with other Troponin methodologies. Troponin, High Sens 9 ng/L Normal 0-14 [facility] Comment on above: Result Comment: High Sensitivity Troponin values cannot be compared with other Troponin methodologies. Performed By: #### L IP, LIVP, MG, BMP, TROPI, CDP #### [facility] [address] [place] [address] Circular Head Saw Operator: Miller Shirley MD Urinalysison 09-02-2024 Bilirubin Ql (U) Negative NEGATIVE [facility] Clarity (U) Clear Clear [facility] Color (U) Yellow Yellow [facility] Glucose Test strip (U) [Mass/Vol] 3+ Abnormal NEGATIVE mg/dL [facility] Hemoglobin Auto test strip Ql (U) Negative NEGATIVE [facility] Interpretation and review of laboratory results Abnormal [facility] Ketones (U) [Mass/Vol] TRACE Abnormal NEGATIVE mg/dL [facility] Leukocyte esterase Test strip Ql (U) Negative NEGATIVE [facility] Nitrite Ql (U) Negative NEGATIVE [facility] pH (U) 6.0 [pH] 5.0 - 9.[address] [facility] Protein (U) [Mass/Vol] Negative NEGATIVE mg/dL [facility] Specific gravity (U) [Rel density] 1.025 High 1.010 - 1.[address] [facility] Urobilinogen Qn (U) Normal 0.0 - 1. 0 EU/dL [facility] Urinalysis, Routineon 2024 Bilirubin, SemiQt,Ur Negative Normal NEG [facility] Comment on above: Performed By: #### L IP, LIVP, MG, BMP, TROPI, CDP #### [facility] [address] [place] [address] [place] [address] Circular Head Saw Operator: Miller Shirley MD Blood, Urine Negative Normal NEG [facility] Comment on above: Performed By: #### L IP, LIVP, MG, BMP, TROPI, CDP #### [address] [place] [address] Circular Head Saw Operator: Miller Shirley MD Clarity (U) Clear Normal CLEAR [facility] Comment on above: Performed By: #### L IP, LIVP, MG, BMP, TROPI, CDP #### [address] [place] [address] Circular Head Saw Operator: Miller Shirley MD Color (U) Yellow Normal YEL [facility] Comment on above: Performed By: #### L IP, LIVP, MG, BMP, TROPI, CDP #### [address] [place] [address] Circular Head Saw Operator: Miller Shirley MD Glucose Ql (U) 3+ mg/dL Abnormal NEG [facility] Comment on above: Performed By: #### L IP, LIVP, MG, BMP, TROPI, CDP #### [facility] [address] [place] [address] [place] [place], [place] [id number] Circular Head Saw Operator: Miller Shirley MD Ketones Ql (U) TRACE Abnormal NEG [facility] Comment on above: Performed By: #### L IP, LIVP, MG, BMP, TROPI, CDP #### [address] [place], [place] [id number] Circular Head Saw Operator: Miller Shirley MD Leukocyte esterase Test strip Ql (U) Negative Normal NEG [facility] Comment on above: Performed By: #### L IP, LIVP, MG, BMP, TROPI, CDP #### [address] [place], [place] [id number] Circular Head Saw Operator: Miller Shirley MD Nitrite,Ur Negative Normal NEG [facility] Comment on above: Performed By: #### L IP, LIVP, MG, BMP, TROPI, CDP #### [address] [place], [facility] Circular Head Saw Operator: Miller Shirley MD PH,Ur 6.0 Normal 5.0-9.0 [facility] Comment on above: Performed By: #### L IP, LIVP, MG, BMP, TROPI, CDP #### [address] [place], [place] [id number] Circular Head Saw Operator: Miller Shirley MD Protein Ql (U) Negative Normal NEG [facility] Comment on above: Performed By: #### L IP, LIVP, MG, BMP, TROPI, CDP #### [address] [place] [address] Circular Head Saw Operator: Miller Shirley MD Spec. [place],Ur 1.025 High 1.010-1.020 [facility] Comment on above: Performed By: #### L IP, LIVP, MG, BMP, TROPI, CDP #### [address] [place], [facility]83 Circular Head Saw Operator: Miller Shirley MD Urobilinogen,Ur Normal Normal 0.0-1.0 [facility] Comment on above: Performed By: #### L IP, LIVP, MG, BMP, TROPI, CDP #### [facility] [address] [place], [place] [id number] Circular Head Saw Operator: Miller Shirley MD Urinalysis,Microon 5 Casts 0 TO 2 Normal [facility] Comment on above: Result Comment: HYAL INE Performed By: #### L IP, LIVP, MG, BMP, TROPI, CDP #### [facility] [address] [place], [place] [id number] Circular Head Saw Operator: Miller Shirley MD Epithelial cells LM Ql (Urine sed) 0 TO 2 Normal 0-25 [facility] Comment on above: Performed By: #### L IP, LIVP, MG, BMP, TROPI, CDP #### [facility] [address] [place] [address] [place] [place], [place] [phone] Circular Head Saw Operator: Miller Shirley MD Mucus Strands 1+ Abnormal NONE [facility] Comment on above: Performed By: #### L IP, LIVP, MG, BMP, TROPI, CDP #### [address] [place], [place] [phone] Circular Head Saw Operator: Miller Shirley MD Urine RBC's None Normal 0-2 [facility] Comment on above: Performed By: #### L IP, LIVP, MG, BMP, TROPI, CDP #### [facility] [address] [place], [place] [phone] Circular Head Saw Operator: Miller Shirley MD Urine WBC's 0 TO 2 Normal 0-5 [facility] Comment on above: Performed By: #### L IP, LIVP, MG, BMP, TROPI, CDP #### [facility] [address] [place] [address] Circular Head Saw Operator: Miller Shirley MD US Kidneyon 08-30-2024 Benign left renal cyst. [facility] CONSOLIDATED EXAM: US RENAL COMPL ETE HISTORY: Generalized abdominal pain COMPARISON: Renal ultrasound 05/03/2021. FINDINGS: Right kidney: 10.5 x 6.7 x 6.1 cm with cortical thickness 13 mm. Left kidney: 12.1 x 7.0 x 5.5 cm with cortical thickness 17 mm. No definite stones. Renal cortical echogenicity normal. 3 cm benign exophytic left renal cyst unchanged. Normal cortical echogenicity. No mass or hydronephrosis. Both ureteral jets are seen at the bladder. Small amount of urine in the bladder with no significant postvoid residual. [facility] Eduar Lawtno Jr., MD - 08/30/2024 EXAM: US RENAL COMPLETE HISTORY: Generalized abdominal pain COMPARISON: Renal ultrasound 05/03/2021. FINDINGS: Right kidney: 10.5 x 6.7 x 6.1 cm with cortical thickness 13 mm. Left kidney: 12.1 x 7.0 x 5.5 cm with cortical thickness 17 mm. No definite stones. Renal cortical echogenicity normal. 3 cm benign exophytic left renal cyst unchanged. Normal cortical echogenicity. No mass or hydronephrosis. Both ureteral jets are seen at the bladder. Small amount of urine in the bladder with no significant postvoid residual. IMPRESSION: Benign left renal cyst. [facility] Radiology Study observation (narrative) [facility] US KidneyOrdered By: Eduar Lawton on 08-30-[address] [facility] Work Phone: US RENAL COMPLETEon 08-30-19 25 US RENAL COMPLETE EXAM: US RENAL COMPL ETE HISTORY: Generalized abdominal pain COMPARISON: Renal ultrasound 05/03/2021. FINDINGS: Right kidney: 10.5 x 6.7 x 6.1 cm with cortical thickness 13 mm. Left kidney: 12.1 x 7.0 x 5.5 cm with cortical thickness 17 mm. No definite stones. Renal cortical echogenicity normal. 3 cm benign exophytic left renal cyst unchanged. Normal cortical echogenicity. No mass or hydronephrosis. Both ureteral jets are seen at the bladder. Small amount of urine in the bladder with no significant postvoid residual. IMPRESSION: Benign left renal cyst. Interpreted by: Eduar Lawton Jr., MD Signed by: Eduar Lawton Jr., MD 08/30/24 Final result Normal [facility] Cult,Bloodon 08-26-2024 Cult,Blood Specimen Description .BLOOD Special Requests 20ML LAC Culture NO GROWTH 5 DAYS Report Status FINAL 08/26/2024 [facility] Comment on above: Performed By: #### L IP, LIVP, MG, BMP, TROPI, CDP #### [facility] [address] [place] [address] Circular Head Saw Operator: Miller Shirley MD Basic Metabolic Panelon Anion gap [Moles/Vol] 13 mmol/L 9 - 16 mmol/L [facility] Calcium [Mass/Vol] 9.8 mg/dL 8.6 - 10. 4 mg/dL [facility] Chloride [Moles/Vol] 93 mmol/L Low 98 - 10 7 mmol/L [facility] CO2 [Moles/Vol] 25 mmol/L 20 - 31 mmol/L [facility] Creatinine [Mass/Vol] 0.8 mg/dL 0.50 - 0.90 mg/dL [facility] Est, Glom Filt Rate 88 - PINF [facility] Comment on above: These results are not intended for use [...] that affects renal tubular secretion. Glucose [Mass/Vol] 239 mg/dL High 74 - 99 mg/dL [facility] Potassium [Moles/Vol] 4.0 mmol/L 3.7 - 5.3 mmol/L [facility] Sodium [Moles/Vol] 131 mmol/L Low 136 - 145 mmol/L [facility] Urea nitrogen [Mass/Vol] 28 mg/dL High 6 - 20 mg/dL [facility] Urea nitrogen/Creatinine [Mass ratio] 35 mg/mg High 9 - [address] [facility] Basic Metabolic Profon 08-21 Anion gap [Moles/Vol] 13 mmol/L Normal 9-16 [facility] Comment on above: Performed By: #### M G, CDP, TROPI, LIVP, BMP, LIP #### [facility] [address] [place], [place] [address] Circular Head Saw Operator: Miller Shirley MD BUN/CRE Ratio 35 High 9-20 [facility] Comment on above: Performed By: #### M G, CDP, TROPI, LIVP, BMP, LIP #### [facility] [address] [place] [address] Circular Head Saw Operator: Miller Shirley MD Calcium [Mass/Vol] 9.8 mg/dL Normal 8.6-10.4 [facility] Comment on above: Performed By: #### M G, CDP, TROPI, LIVP, BMP, LIP #### [facility] [address] [place] [address] Circular Head Saw Operator: Miller Shirley MD Chloride [Moles/Vol] 93 mmol/L Low 98-107 [facility] Comment on above: Performed By: #### M G, CDP, TROPI, LIVP, BMP, LIP #### [facility] [address] [place] [address] Circular Head Saw Operator: Miller Shirley MD CO2 [Moles/Vol] 25 mmol/L Normal 20-31 [facility] Comment on above: Performed By: #### M G, CDP, TROPI, LIVP, BMP, LIP #### [facility] [address] [place] [address] Circular Head Saw Operator: Miller Shirley MD Creatinine [Mass/Vol] 0.8 mg/dL Normal 0.50-0.90 [facility] Comment on above: Performed By: #### M G, CDP, TROPI, LIVP, BMP, LIP #### [facility] [address] [place] [address] Circular Head Saw Operator: Miller Shirley MD GFR/1.73 sq M.predicted among non-blacks MDRD (S/P/Bld) [Vol rate/Area] 88 mL/min/{1.73_m2} Normal >60 [facility] Comment on above: Result Comment: These results are not intended for [...] affects renal tubular secretion. Performed By: #### M G, CDP, TROPI, LIVP, BMP, LIP #### [facility] [address] [place] [address] Circular Head Saw Operator: Miller Shirley MD Glucose [Mass/Vol] 239 mg/dL High 74-99 [facility] Comment on above: Performed By: #### M G, CDP, TROPI, LIVP, BMP, LIP #### [facility] [address] [place] [address] Circular Head Saw Operator: Miller Shirley MD Potassium [Moles/Vol] 4.0 mmol/L Normal 3.7-5.3 [facility] Comment on above: Performed By: #### M G, CDP, TROPI, LIVP, BMP, LIP #### [facility] [address] [place] [address] Circular Head Saw Operator: Miller Shirley MD Sodium [Moles/Vol] 131 mmol/L Low 136-145 [facility] Comment on above: Performed By: #### M G, CDP, TROPI, LIVP, BMP, LIP #### [facility] [address] [place] [address] Circular Head Saw Operator: Miller Shirley MD Urea nitrogen [Mass/Vol] 28 mg/dL High 6-20 [facility] Comment on above: Performed By: #### M G, CDP, TROPI, LIVP, BMP, LIP #### [facility] [address] [place] [address] Circular Head Saw Operator: Miller Shirley MD CBC with Auto Differentialon 08-21-2024 Basophils (Bld) [#/Vol] 0.05 10*3/uL [facility] Basophils/100 WBC (Bld) 1 % 0 - 2 % [facility] Eosinophils (Bld) [#/Vol] 0.11 10*3/uL [facility] Eosinophils/100 WBC (Bld) 1 % 1 - 4 % [facility] Erythrocyte distribution width (RBC) [Ratio] 12.1 % 11.8 - 14.4 % [facility] Hematocrit (Bld) [Volume fraction] 43.7 % 36.3 - 47.1 % [facility] Hemoglobin (Bld) [Mass/Vol] 15.0 g/dL 11.9 - 15.1 g/dL [facility] Immature granulocytes (Bld) [#/Vol] 0.04 10*3/uL [facility] Immature granulocytes/100 WBC (Bld) 0 % [address] [facility] Interpretation and review of laboratory results Abnormal [facility] Lymphocytes/100 WBC (Bld) 25 % 24 - 43 % [facility] Lymphocytes/100 WBC (Bld) 2.70 % [facility] MCH (RBC) [Entitic mass] 28.9 pg 25.2 - 33.[address] [facility] MCHC (RBC) [Mass/Vol] 34.3 g/dL 28.4 - 34.8 g/dL [facility] MCV (RBC) [Entitic vol] 84.2 fL 82.6 - 102.[address] [facility] Monocytes/100 WBC (Bld) 8 % 3 - 12 % [facility] Monocytes/100 WBC (Bld) 0.84 % [facility] Neutrophils/100 WBC (Bld) 65 % 36 - 65 % [facility] Nucleated RBC/100 WBC (Bld) [Ratio] 0.0 % 0.0 per [address] [facility] Platelet mean volume (Bld) [Entitic vol] 9.8 fL 8.1 - 13.[address] [facility] Platelets (Bld) [#/Vol] 352 10*3/uL [facility] RBC (Bld) [#/Vol] 5.19 10*6/uL High 3.95 - 5.1 1 m/uL [facility] Segmented neutrophils/100 WBC (Bld) 7.25 % [facility] WBC other (Bld) [#/Vol] 11.0 [facility] CBC with Diffon 08-21-2024 Abs. Basophil 0.05 k/uL Normal 0.00-0.20 [facility] Comment on above: Performed By: #### M Mary, CDP, TROPI, LIVP, BMP, LIP #### [facility] [address] [place] [address] [address] [place], [place] [id number] Circular Head Saw Operator: Miller Shirley MD Abs.Imm.Granulocyte 0.04 k/uL Normal 0.00-0.30 [facility] Comment on above: Performed By: #### M Mary, CDP, TROPI, LIVP, BMP, LIP #### [address] [place] [address] Circular Head Saw Operator: Miller Shirley MD Abs.Neutrophil (Seg) 7.25 k/uL Normal 1.50-8.10 [facility] Comment on above: Performed By: #### M G, CDP, TROPI, LIVP, BMP, LIP #### [address] [place] [address] Circular Head Saw Operator: Miller Shirley MD Basophils/100 WBC (Bld) 1 % Normal 0-2 [facility] Comment on above: Performed By: #### M G, CDP, TROPI, LIVP, BMP, LIP #### [facility] [address] [place], [place] [phone] Circular Head Saw Operator: Miller Shirley MD Eosinophils (Bld) [#/Vol] 0.11 10*3/uL Normal 0.00-0.44 [facility] Comment on above: Performed By: #### M G, CDP, TROPI, LIVP, BMP, LIP #### [facility] [address] [place], [place] [address] Circular Head Saw Operator: Miller Shirley MD Eosinophils/100 WBC (Bld) 1 % Normal 1-4 [facility] Comment on above: Performed By: #### M G, CDP, TROPI, LIVP, BMP, LIP #### [address] [place] [address] Circular Head Saw Operator: Miller Shirley MD Erythrocyte distribution width (RBC) [Ratio] 12.1 % Normal 11.8-14.4 [facility] Comment on above: Performed By: #### M G, CDP, TROPI, LIVP, BMP, LIP #### [address] [place], [facility] Circular Head Saw Operator: Miller Shirley MD Hematocrit (Bld) [Volume fraction] 43.7 % Normal 36.3-47.1 [facility] Comment on above: Performed By: #### M G, CDP, TROPI, LIVP, BMP, LIP #### [address] [place], [facility] Circular Head Saw Operator: Miller Shirley MD Hemoglobin (Bld) [Mass/Vol] 15.0 g/dL Normal 11.9-15.1 [facility] Comment on above: Performed By: #### M G, CDP, TROPI, LIVP, BMP, LIP #### [address] [place], [facility] Circular Head Saw Operator: Miller Shirley MD Immature granulocytes/100 WBC (Bld) 0 % Normal 0 [facility] Comment on above: Performed By: #### M G, CDP, TROPI, LIVP, BMP, LIP #### [facility] [address] [place], [place] [id number] Circular Head Saw Operator: Miller Shirley MD Lymphocytes (Bld) [#/Vol] 2.70 10*3/uL Normal 1.10-3.70 [facility] Comment on above: Performed By: #### M G, CDP, TROPI, LIVP, BMP, LIP #### [facility] [address] [place], [place] [phone] Circular Head Saw Operator: Miller Shirley MD Lymphocytes/100 WBC (Bld) 25 % Normal 24-43 [facility] Comment on above: Performed By: #### M G, CDP, TROPI, LIVP, BMP, LIP #### [address] [place], [facility] Circular Head Saw Operator: Miller Shirley MD MCH (RBC) [Entitic mass] 28.9 pg Normal 25.2-33.5 [facility] Comment on above: Performed By: #### M G, CDP, TROPI, LIVP, BMP, LIP #### [address] [place], [facility] Circular Head Saw Operator: Miller Shirley MD MCHC (RBC) [Mass/Vol] 34.3 g/dL Normal 28.4-34.8 [facility] Comment on above: Performed By: #### M G, CDP, TROPI, LIVP, BMP, LIP #### [address] [place], [facility] Circular Head Saw Operator: Milelr Shirley MD MCV (RBC) [Entitic vol] 84.2 fL Normal 82.6-102.9 [facility] Comment on above: Performed By: #### M G, CDP, TROPI, LIVP, BMP, LIP #### [place] [address] [place] [address] Circular Head Saw Operator: Miller Shirley MD Monocytes (Bld) [#/Vol] 0.84 10*3/uL Normal 0.10-1.20 [facility] Comment on above: Performed By: #### M G, CDP, TROPI, LIVP, BMP, LIP #### [facility] [address] [place], [place] [phone] Circular Head Saw Operator: Miller Shirley MD Monocytes/100 WBC (Bld) 8 % Normal 3-12 [facility] Comment on above: Performed By: #### M G, CDP, TROPI, LIVP, BMP, LIP #### [facility] [address] [place], [place] [id number] Circular Head Saw Operator: Miller Shirley MD Neutrophil (Seg) 65 % Normal 36-65 [facility] Comment on above: Performed By: #### M G, CDP, TROPI, LIVP, BMP, LIP #### [address] [place], [place] [address]35[address] Circular Head Saw Operator: Miller Shirley MD NRBC Automated 0.0 per 100 WBC Normal 0.0 [facility] Comment on above: Performed By: #### M G, CDP, TROPI, LIVP, BMP, LIP #### [address] [place], [place] [phone] Circular Head Saw Operator: Miller Shirley MD Platelet mean volume (Bld) [Entitic vol] 9.8 fL Normal 8.1-13.5 [facility] Comment on above: Performed By: #### M G, CDP, TROPI, LIVP, BMP, LIP #### [facility] [address] [place] [address] Circular Head Saw Operator: Miller Shirley MD Platelets (Bld) [#/Vol] 352 10*3/uL Normal 138-453 [facility] Comment on above: Performed By: #### M G, CDP, TROPI, LIVP, BMP, LIP #### [address] [place], [place] [address] Circular Head Saw Operator: Miller Shirley MD RBC ([facility]) [#/Vol] 5.19 10*6/uL High 3.95-5.11 [facility] Comment on above: Performed By: #### M G, CDP, TROPI, LIVP, BMP, LIP #### [address] [place], [place] [address] Circular Head Saw Operator: Miller Shirley MD WBC (d) [#/Vol] 11.0 10*3/uL Normal 3.5-11.3 [facility] Comment on above: Performed By: #### M G, CDP, TROPI, LIVP, BMP, LIP #### [address] [place], [place] [address] Circular Head Saw Operator: Miller Shirley MD Drug Scr, Abuse, Uron 2024 Amphetamine(s),Ur Negative Normal NEG [facility] Comment on above: Result Comment: Cuto ff: 1000 ng/mL Performed By: #### L IP, LIVP, MG, BMP, TROPI, CDP #### [address] [place], [place] [address] Circular Head Saw Operator: Miller Shirley MD Barbiturate(s),Ur Negative Normal NEG [facility] Comment on above: Result Comment: Cuto ff: 200 ng/ml Performed By: #### L IP, LIVP, MG, BMP, TROPI, CDP #### [address] [place], [facility] Circular Head Saw Operator: Miller Shirley MD Benzodiazepine(s) Negative Normal NEG [facility] Comment on above: Result Comment: Cuto ff: 200 ng/ml Performed By: #### L IP, LIVP, MG, BMP, TROPI, CDP #### [address] [place], [place] [id number] Circular Head Saw Operator: Miller Shirley MD Buprenorphrine, Ur Negative Normal NEG [facility] Comment on above: Result Comment: Cuto ff: 5 ng/ml Performed By: #### L IP, LIVP, MG, BMP, TROPI, CDP #### [facility] [address] [place] [address] Dr. [place], [place] [id number] Circular Head Saw Operator: Miller Shirley MD Cannabinoid(s),Ur Negative Normal NEG [facility] Comment on above: Result Comment: Cuto ff: 50 ng/ml Performed By: #### L IP, LIVP, MG, BMP, TROPI, CDP #### [facility] [address] [place] [address] Dr. [place], [place] [id number] Circular Head Saw Operator: Miller Shirley MD Cocaine Metabolite Negative [facility] Comment on above: Result Comment: Cuto ff: 300 ng/ml Performed By: #### L IP, LIVP, MG, BMP, TROPI, CDP #### [facility] [address] [place] [address] Dr. [place], [place] [id number] Circular Head Saw Operator: Miller Shirley MD Fentanyl, Urine Negative Normal [facility] Comment on above: Result Comment: Cuto ff: 5 ng/ml Performed By: #### L IP, LIVP, MG, BMP, TROPI, CDP #### [facility] [address] [place] [address] Dr. [place], [place] [id number] Circular Head Saw Operator: Miller Shirley MD Interpretive Info This method is a screening test to detect only these drug classes as part of a Normal [facility] Comment on above: Result Comment: medi onofre workup. Confirmatory testing by another method should be ordered if clinically indicated. Performed By: #### L IP, LIVP, MG, BMP, TROPI, CDP #### [facility] [address] [place] [address] Dr. [place], [place] [id number] Circular Head Saw Operator: Miller Shirley MD Methadone Ql (U) Negative Normal NEG [facility] Comment on above: Result Comment: Cuto ff: 300 ng/ml Performed By: #### L IP, LIVP, MG, BMP, TROPI, CDP #### [facility] [address] [place] [address] [place] [address] Circular Head Saw Operator: Miller Shirley MD Opiate(s), Ur Negative Normal NEG [facility] Comment on above: Result Comment: Cuto ff: 300 ng/ml Note: The Opiate screen is not intended to detect Oxycodone. Performed By: #### L IP, LIVP, MG, BMP, TROPI, CDP #### [address] [place] [address] Circular Head Saw Operator: Miller Shirley MD Oxycodone, Urine Negative Normal NEG [facility] Comment on above: Result Comment: Cuto ff: 100 ng/ml Performed By: #### L IP, LIVP, MG, BMP, TROPI, CDP #### [facility] [address] [place] [address] Dr. [place], [place] [phone] Circular Head Saw Operator: Miller Shirley MD Phencyclidine, Ur Negative Normal NEG [facility] Comment on above: Result Comment: Cuto ff: 25 ng/ml Performed By: #### L IP, LIVP, MG, BMP, TROPI, CDP #### [address] [place] [address] Circular Head Saw Operator: Miller Shirley MD EKG 12 LeadOrdered By: Yassine benavides on 08-21-2024 Atrial Rate 136 BPM [facility] [employer] Phone: P [place] [address] [facility] [employer] Phone: P-R Interval [address] [facility] [employer] Phone: Q-T Interval 296 ms [facility] [employer] Phone: QRS Duration [address] [facility] [employer] Phone: QTc Calculation (Bazett) 445 ms [facility] Work Phone: R [place] 29 degrees [facility] [employer] Work Phone: T [place] 94 degrees [facility] Work Phone: Ventricular Rate 136 BPM [facility] [employer] Work Phone: [email or web address] Work Phone: EKG 12 Leadon 08-21-2024 Sinus tachycardia Septal infarct , age undetermined Abnormal ECG No previous ECGs available Confirmed by Yassine Rendon MD ([id number]) on 08/21/2024 7:41:19 PM [facility] RADIOLOG[facility] Yassine Rendon MD - 08/21/2024 Sinus tachycardia Septal infarct , age undetermined Abnormal ECG No previous ECGs available Confirmed by Yassine Rendon MD ([id number]) on 08/21/2024 7:41:19 PM [facility] Function Panelon Albumin [Mass/Vol] 4.2 g/dL 3.5 - 5.2 g/dL [facility] [employer] Albumin/Globulin [Mass ratio] 1.5 {ratio} 1.0 - 2.5 [facility] [employer] ALP [Catalytic activity/Vol] 95 U/L 35 - 104 U/L [facility] [employer] ALT [Catalytic activity/Vol] 21 U/L 10 - 35 U/L [facility] [employer] AST [Catalytic activity/Vol] 17 U/L 10 - 35 U/L [facility] [employer] Bilirubin [Mass/Vol] 0.3 mg/dL 0.00 - 1.20 mg/dL [facility] [employer] Bilirubin.direct [Mass/Vol] mg/dL 0.00 - 0.30 mg/dL [facility] [employer] Bilirubin.indirect [Mass/Vol] Can not be calculated 0.0 - 1.0 mg/dL [facility] [employer] Protein [Mass/Vol] 7.0 g/dL 6.6 - 8.7 g/dL [facility] [employer] Lactate, Sepsison 08-21-2024 Interpretation and review of laboratory results Abnormal [facility] [employer] Lactate (BldV) [Moles/Vol] 2.1 mmol/L High 0.5 - 1.9 mmol/L [facility] Lactic Acid, Sepsis 2.1 mmol/L High 0.5-1.9 [facility] Comment on above: Performed By: #### L IP, LIVP, MG, BMP, TROPI, CDP #### [facility] [address] [place], [place] [id number] Circular Head Saw Operator: Miller Shirley MD Lipaseon 08-21-2024 Lipase [Catalytic activity/Vol] 18 U/L 13 - 60 U/L [facility] Lipase [Catalytic activity/Vol] 18 U/L Normal 13-60 [facility] Comment on above: Performed By: #### M G, CDP, TROPI, LIVP, BMP, LIP #### [facility] [address] [place], [place] 7658583 Circular Head Saw Operator: Miller Shirley MD Liver Profileon 08-21-2024 Albumin [Mass/Vol] 4.2 g/dL Normal 3.5-5.2 [facility] Comment on above: Performed By: #### M G, CDP, TROPI, LIVP, BMP, LIP #### [facility] [address] [place], [place] [phone] Circular Head Saw Operator: Miller Shirley MD Albumin/Glob Ratio 1.5 Normal 1.0-2.5 [facility] Comment on above: Performed By: #### M G, CDP, TROPI, LIVP, BMP, LIP #### [facility] [address] [place], [place] 6935083 Circular Head Saw Operator: Miller Shirley MD Alkaline Phos 95 U/L Normal 35-104 [facility] Comment on above: Performed By: #### M G, CDP, TROPI, LIVP, BMP, LIP #### [facility] [address] [place], [place] [phone] Circular Head Saw Operator: Miller Shirley MD ALT [Catalytic activity/Vol] 21 U/L Normal 10-35 [facility] Comment on above: Performed By: #### M G, CDP, TROPI, LIVP, BMP, LIP #### [facility] [address] [place], [place] [phone] Circular Head Saw Operator: Miller Shirley MD AST [Catalytic activity/Vol] 17 U/L Normal 10-35 [facility] Comment on above: Performed By: #### M G, CDP, TROPI, LIVP, BMP, LIP #### [facility] [address] [place], [place] 1944283 Circular Head Saw Operator: Miller Shirley MD Bilirubin [Mass/Vol] 0.3 mg/dL Normal 0.00-1.20 [facility] Comment on above: Performed By: #### M G, CDP, TROPI, LIVP, BMP, LIP #### [address] [place], [facility]83 Circular Head Saw Operator: Miller Shirley MD Bilirubin, Indirect Can not be calculated Normal 0.0-1 .0 [facility] Comment on above: Performed By: #### M G, CDP, TROPI, LIVP, BMP, LIP #### [address] [place], [place] [phone] Circular Head Saw Operator: Miller Shilrey MD Bilirubin.indirect [Mass/Vol] mg/dL Normal 0.00-0.30 [facility] Comment on above: Performed By: #### M G, CDP, TROPI, LIVP, BMP, LIP #### [address] [place], [place] [phone] Circular Head Saw Operator: Miller Shirley MD Protein [Mass/Vol] 7.0 g/dL Normal 6.6-8.7 [facility] Comment on above: Performed By: #### M G, CDP, TROPI, LIVP, BMP, LIP #### [address] [place] [address] Circular Head Saw Operator: Miller Shirley MD Magnesiumon 08-21-2024 Magnesium [Mass/Vol] 2.0 mg/dL 1.6 - 2 .6 mg/dL [facility] Magnesium [Mass/Vol] 2.0 mg/dL Normal 1.6-2.6 [facility] Comment on above: Performed By: #### L IP, LIVP, MG, BMP, TROPI, CDP #### [facility] [address] [place] [address] Circular Head Saw Operator: Miller Shirley MD No Panel Informationon 08-21 Interpretation and review of laboratory results Abnormal [facility] Portable XR Chest AP single viewon 08-21-2024 No acute cardiopulmo nary process. [facility] EXAMINATION: ONE XRAY VIEW OF THE CHEST 08/21/2024 6:54 pm COMPARISON: 20 August 2016 HISTORY: ORDERING SYSTEM PROVIDED HISTORY: Chest Pain TECHNOLOGIST PROVIDED HISTORY: Chest Pain FINDINGS: AP portable view of the chest time stamped at 1852 hours demonstrates overlying cardiac monitoring electrodes. Heart size is normal. No vascular congestion, focal consolidation, effusion, or pneumothorax is noted. Osseous and mediastinal structures are age-appropriate. [facility] Nesha Francisco MD - 08/21/2024 EXAMINATION: ONE XRAY VIEW OF THE CHEST 08/21/2024 6:54 pm COMPARISON: 20 August 2016 HISTORY: ORDERING SYSTEM PROVIDED HISTORY: Chest Pain TECHNOLOGIST PROVIDED HISTORY: Chest Pain FINDINGS: AP portable view of the chest time stamped at 1852 hours demonstrates overlying cardiac monitoring electrodes. Heart size is normal. No vascular congestion, focal consolidation, effusion, or pneumothorax is noted. Osseous and mediastinal structures are age-appropriate. IMPRESSION: No acute cardiopulmonary process. [facility] Radiology Study observation (narrative) [facility] Portable XR Chest AP single viewOrdered By: Nesha Francisco on 08-21-[address] [facility] Work Phone: Troponinon 08-21-2024 Troponin I.cardiac High sensitivity method [Mass/Vol] 14 ng/L 0 - 14 ng/L [facility] Comment on above: High Sensitivity Tro ponin values cannot be compared with other Troponin methodologies. [facility] Troponin, High Sens 14 ng/L Normal 0-14 [facility] Comment on above: Result Comment: High Sensitivity Troponin values cannot be compared with other Troponin methodologies. Performed By: #### L IP, LIVP, MG, BMP, TROPI, CDP #### [facility] [address] [place] [address] Circular Head Saw Operator: Miller Shirley MD Troponin I.cardiac High sensitivity method [Mass/Vol] 17 ng/L High 0 - 14 ng/L [facility] Comment on above: High Sensitivity Tro ponin values cannot be compared with other Troponin methodologies. Troponin, High Sens 17 ng/L High 0-14 [facility] Comment on above: Result Comment: High Sensitivity Troponin values cannot be compared with other Troponin methodologies. Performed By: #### L IP, LIVP, MG, BMP, TROPI, CDP #### [facility] [address] [place] [address] Circular Head Saw Operator: Miller Shirley MD Urinalysison 08-21-2024 Bilirubin Ql (U) Negative NEGATIVE [facility] Clarity (U) Clear Clear [facility] Color (U) Yellow Yellow [facility] Glucose Test strip (U) [Mass/Vol] Negative NEGATIVE mg/dL [facility] Hemoglobin Auto test strip Ql (U) Negative NEGATIVE [facility] Interpretation and review of laboratory results Abnormal [facility] Ketones (U) [Mass/Vol] Negative NEGATIVE mg/dL [facility] Leukocyte esterase Test strip Ql (U) Negative NEGATIVE [facility] Nitrite Ql (U) Negative NEGATIVE [facility] pH (U) 6.0 [pH] 5.0 - 9.[address] [facility] Protein (U) [Mass/Vol] Negative NEGATIVE mg/dL [facility] Specific gravity (U) [Rel density] Low 1.010 - 1.[address] [facility] Urobilinogen Qn (U) Normal 0.0 - 1. 0 EU/dL [facility] Urinalysis, Routineon 2024 Bilirubin, SemiQt,Ur Negative Normal NEG [facility] Comment on above: Performed By: #### L IP, LIVP, MG, BMP, TROPI, CDP #### [facility] [address] [place] [address] Dr. [place], [place] [phone] Circular Head Saw Operator: Miller Shirley MD Blood, Urine Negative Normal NEG [facility] Comment on above: Performed By: #### L IP, LIVP, MG, BMP, TROPI, CDP #### [facility] [address] [place] [address] Dr. [place], [place] [phone] Circular Head Saw Operator: Miller Shirley MD Clarity (U) Clear Normal CLEAR [facility] Comment on above: Performed By: #### L IP, LIVP, MG, BMP, TROPI, CDP #### [address] [place], [place] 5812383 Circular Head Saw Operator: Miller Shirley MD Color (U) Yellow Normal YEL [facility] Comment on above: Performed By: #### L IP, LIVP, MG, BMP, TROPI, CDP #### [address] [place], [place] 5747883 Circular Head Saw Operator: Miller Shirley MD Glucose Ql (U) Negative Normal NEG [facility] Comment on above: Performed By: #### L IP, LIVP, MG, BMP, TROPI, CDP #### [facility] [address] [place] [address] Dr. [place], [place] 2246683 Circular Head Saw Operator: Miller Shirley MD Ketones Ql (U) Negative Normal NEG [facility] Comment on above: Performed By: #### L IP, LIVP, MG, BMP, TROPI, CDP #### [facility] [address] [place] [address] [place] [address] Circular Head Saw Operator: Miller Shirley MD Leukocyte esterase Test strip Ql (U) Negative Normal NEG [facility] Comment on above: Performed By: #### L IP, LIVP, MG, BMP, TROPI, CDP #### [address] [place], [place] 3501783 Circular Head Saw Operator: Miller Shirley MD Nitrite,Ur Negative Normal NEG [facility] Comment on above: Performed By: #### L IP, LIVP, MG, BMP, TROPI, CDP #### [address] [place], [place] 0881883 Circular Head Saw Operator: Miller Shirley MD PH,Ur 6.0 Normal 5.0-9.0 [facility] Comment on above: Performed By: #### L IP, LIVP, MG, BMP, TROPI, CDP #### [address] [place], [place] 6049883 Circular Head Saw Operator: Miller Shirley MD Protein Ql (U) Negative Normal NEG [facility] Comment on above: Performed By: #### L IP, LIVP, MG, BMP, TROPI, CDP #### [address] [place], [place] 9354083 Circular Head Saw Operator: Miller Shirley MD Spec. [place],Ur <1.005 Low 1.010-1.020 [facility] Comment on above: Performed By: #### L IP, LIVP, MG, BMP, TROPI, CDP #### [address] [place], [place] 1492583 Circular Head Saw Operator: Miller Shirley MD Urobilinogen,Ur Normal Normal 0.0-1.0 [facility] Comment on above: Performed By: #### L IP, LIVP, MG, BMP, TROPI, CDP #### [address] [place], [place] 7129883 Circular Head Saw Operator: Miller Shirley MD Urine Drug Screenon 08-21-19 25 Amphetamines Ql (U) Negative NEGATIVE [facility] Comment on above: Cutoff: 1000 ng/mL Barbiturates Screen Ql (U) Negative NEGATIVE [facility] Comment on above: Cutoff: 200 ng/ml Benzodiazepines Ql (U) Negative NEGATIVE [facility] Comment on above: Cutoff: 200 ng/ml Buprenorphine Ql (U) Negative NEGATIVE [facility] Comment on above: Cutoff: 5 ng/ml Cannabinoids Screen Ql (U) Negative NEGATIVE [facility] Comment on above: Cutoff: 50 ng/ml Cocaine Ql (U) Negative NEGATIVE [facility] Comment on above: Cutoff: 300 ng/ml fentaNYL Ql (U) Negative NEGATIVE [facility] Comment on above: Cutoff: 5 ng/ml Methadone Ql (U) Negative NEGATIVE [facility] Comment on above: Cutoff: 300 ng/ml Opiates Screen Ql (U) Negative NEGATIVE [facility] Comment on above: Cutoff: 300 ng/ml Note: The Opiate screen is not intended to detect Oxycodone. oxyCODONE Ql (U) Negative NEGATIVE [facility] Comment on above: Cutoff: 100 ng/ml Phencyclidine Ql (U) Negative NEGATIVE [facility] Comment on above: Cutoff: 25 ng/ml Test Information This method is a screening test to detect only these drug classes as part of a medical workup. Confirmatory testing by another method should be ordered if clinically indicated. [facility] XR CHEST PORTABLEon 08-21-19 XR CHEST PORTABLE EXAMINATION: ONE XRAY VIEW OF THE CHEST 08/21/2024 6:54 pm COMPARISON: 20 August 2016 HISTORY: ORDERING SYSTEM PROVIDED HISTORY: Chest Pain TECHNOLOGIST PROVIDED HISTORY: Chest Pain FINDINGS: AP portable view of the chest time stamped at 1852 hours demonstrates overlying cardiac monitoring electrodes. Heart size is normal. No vascular congestion, focal consolidation, effusion, or pneumothorax is noted. Osseous and mediastinal structures are age-appropriate. IMPRESSION: No acute cardiopulmonary process. Interpreted by: Nesha Francisco MD Signed by: Nesha Francisco MD 08/21/24 Final result Normal [facility] XR CERVICAL SPINE (4-5 VIEWS )on 08-12-2024 XR CERVICAL SPINE (4-5 VIEWS) EXAM: XR CERVICAL SPINE (4-5 VIEWS) HISTORY: Pain in thoracic spine COMPARISON: None. IMPRESSION: FINDINGS/IMPRESSION: 1. Normal cervical vertebral body and disc space heights. 2. Intervertebral foramina are patent. 3. No fracture. 4. No acute or suspicious findings. Interpreted by: Eduar Lawton Jr., MD Signed by: Eduar Lawton Jr., MD 08/12/24 Final result Normal [facility] XR Cervical spine 4 or 5 Vie wson 08-12-2024 FINDINGS/IMPRESSION: 1. Normal cervical vertebral body and disc space heights. 2. Intervertebral foramina are patent. 3. No fracture. 4. No acute or suspicious findings. [facility] EXAM: XR CERVICAL SP INE (4-5 VIEWS) HISTORY: Pain in thoracic spine COMPARISON: None. [facility] Eduar Lawton Jr., MD - 08/12/2024 EXAM: XR CERVICAL SPINE (4-5 VIEWS) HISTORY: Pain in thoracic spine COMPARISON: None. IMPRESSION: FINDINGS/IMPRESSION: 1. Normal cervical vertebral body and disc space heights. 2. Intervertebral foramina are patent. 3. No fracture. 4. No acute or suspicious findings. [facility] Radiology Study observation (narrative) [facility] XR Cervical spine 4 or 5 Vie wsOrdered By: Eduar Lawton on 08-12-[address] [facility] Work Phone: XR THORACIC SPINE (3 VIEWS)o n 08-12-2024 XR THORACIC SPINE (3 VIEWS) EXAM: XR THORACIC SPINE (3 VIEWS). HISTORY: Pain in thoracic spine. COMPARISON: None. IMPRESSION: FINDINGS/IMPRESSION: 1. Minimal convex left lower lumbar curve. 2. Mild age-expected degenerative change. 3. No fracture, lytic or blastic lesion. Interpreted by: Eduar Lawton Jr., MD Signed by: Eduar Lawton Jr., MD 08/12/24 Final result Normal [facility] XR Thoracic spine 3 Viewson 08-12-2024 FINDINGS/IMPRESSION: 1. Minimal convex left lower lumbar curve. 2. Mild age-expected degenerative change. 3. No fracture, lytic or blastic lesion. [facility] EXAM: XR THORACIC SP INE (3 VIEWS). HISTORY: Pain in thoracic spine. COMPARISON: None. [facility] Eduar Lawton Jr., MD - 08/12/2024 EXAM: XR THORACIC SPINE (3 VIEWS). HISTORY: Pain in thoracic spine. COMPARISON: None. IMPRESSION: FINDINGS/IMPRESSION: 1. Minimal convex left lower lumbar curve. 2. Mild age-expected degenerative change. 3. No fracture, lytic or blastic lesion. [facility] Radiology Study observation (narrative) [facility] XR Thoracic spine 3 ViewsOrd ered By: Eduar Lawton on 08-12-[address] [facility] Work Phone: XR LUMBAR SPINE (MIN 4 VIEWS )on 08-04-2024 XR LUMBAR SPINE (MIN 4 VIEWS) EXAM: XR LUMBAR SPINE (MIN 4 VIEWS) 08/04/2024 HISTORY: lumbar pain COMPARISON: Lumbar spine x-ray series 05/21/2018, CT imaging 04/13/2021 TECHNIQUE: AP lateral spot view L5-S1 (6 images) FINDINGS: There is no fracture or dislocation. Disc spacing looks appropriate. There is no evidence of spondylolysis or spondylolisthesis. There are sclerotic changes involve the L4-L5 and L5-S1 facet joints without subluxation. Sacroiliac joints appear preserved. IMPRESSION: No acute process in the lumbar spine is evident. Interpreted by: Cris Peterson MD Signed by: Cris Peterson MD 08/04/24 Final result Normal [facility] - Chemistry and C hemistry - challengeon 06-06-2024 Albumin [Mass/Vol] 4.1 g/dL (3.8-4.9 ) [facility] ALP [Catalytic activity/Vol] 114 U/L (44-121 ) [facility] ALT [Catalytic activity/Vol] 16 U/L (0-32 ) [facility] AST [Catalytic activity/Vol] 10 U/L (0-40 ) [facility] Average glucose Estimated from glycated hemoglobin (Bld) [Mass/Vol] DOUBLE HEAD 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 [facility] Bilirubin [Mass/Vol] mg/dL (0.0-1.2 ) [facility] Calcium [Mass/Vol] 9.9 mg/dL (8.7-10.2 ) [facility] Chloride [Moles/Vol] 93 mmol/L Low (96-106 ) [facility] Cholesterol [Mass/Vol] 438 mg/dL High (100-199 ) [facility] Cholesterol in HDL [Mass/Vol] 34 mg/dL Low (>39 ) [facility] Cholesterol in LDL [Mass/Vol] Comment mg/dL Abnormal (0-99 ) [facility] Comment on above: Note: Triglyceride r esult indicated is too high for an accurateLDL cholesterol estimation. Cholesterol in LDL/Cholesterol in HDL [Mass ratio] TNP ratio [facility] Comment on above: Note: Unable to calc ulate result since non-numeric resultobtained for component test. . LDL/HDL Ratio Men Women 1/2 Avg.Risk 1.0 1.5 Avg.Risk 3.6 3.2 2X Avg.Risk 6.2 5.0 3X Avg.Risk 8.0 6.1 Cholesterol in VLDL [Mass/Vol] TNP mg/dL [facility] Comment on above: Note: Unable to calc ulate result since non-numeric resultobtained for component test. CO2 [Moles/Vol] 20 mmol/L (20-29 ) [facility] Creatinine [Mass/Vol] 0.49 mg/dL Low (0.57- 1.00 ) [facility] Free T4 [Mass/Vol] 1.30 ng/dL (0.82-1.7 7 ) [facility] GFR/1.73 sq M.predicted among non-blacks MDRD (S/P/Bld) [Vol rate/Area] 111 mL/min/{1.73_m2} (>59 ) [facility] Globulin (S) [Mass/Vol] 2.3 g/dL (1.5-4.5 ) [facility] Glucose [Mass/Vol] 468 mg/dL High (70-99 ) [facility] Potassium [Moles/Vol] 5.1 mmol/L (3.5-5.2 ) [facility] Protein [Mass/Vol] 6.4 g/dL (6.0-8.5 ) [facility] Sodium [Moles/Vol] 130 mmol/L Low (134-144 ) [facility] Triglyceride [Mass/Vol] 895 mg/dL Critically high (0-149 ) [facility] Comment on above: Note: Results confir med ondilution. TSH Qn 1.180 uIU/mL (0.450-4.50 0 ) [facility] Urea nitrogen [Mass/Vol] 16 mg/dL (6-24 ) [facility] Urea nitrogen/Creatinine [Mass ratio] 33 mg/mg High (9-23 ) [facility] Laboratory - Hematology and Cell countson 06-06-2024 Basophils (Bld) [#/Vol] 0.1 10*3/uL (0.0-0.2 ) [facility] Basophils/100 WBC (Bld) 1 % (Not Estab. ) [facility] Eosinophils (Bld) [#/Vol] 0.1 10*3/uL (0.0-0.4 ) [facility] Eosinophils/100 WBC (Bld) 1 % (Not Estab. ) [facility] Erythrocyte distribution width (RBC) [Ratio] 12.6 % (11.7-15.4 ) [facility] HbA1c (Bld) [Mass fraction] TNP % [facility] Comment on above: Note: Test not perfo rmed. Insufficient specimen to perform orcomplete analysis. . . Prediabetes: 5.7 - 6.4 Diabetes: >6.4 Glycemic control for adults with diabetes: <7.0 Hematocrit (Bld) [Volume fraction] 46.0 % (34.0-46.6 ) [facility] Hemoglobin (Bld) [Mass/Vol] 15.3 g/dL (11.1-15.9 ) [facility] Immature granulocytes (Bld) [#/Vol] 0.0 10*3/uL (0.0-0.1 ) [facility] Immature granulocytes/100 WBC (Bld) 1 % (Not Estab. ) [facility] Lymphocytes (Bld) [#/Vol] 1.7 10*3/uL (0.7-3.1 ) [facility] Lymphocytes/100 WBC (Bld) 30 % (Not Estab. ) [facility] MCH (RBC) [Entitic mass] 30.1 pg (26.6-33.0 ) [facility] MCHC (RBC) [Mass/Vol] 33.3 g/dL (31.5- 35.7 ) [facility] MCV (RBC) [Entitic vol] 90 fL (79-97 ) [facility] Monocytes (Bld) [#/Vol] 0.5 10*3/uL (0.1-0.9 ) [facility] Monocytes/100 WBC (Bld) 9 % (Not Estab. ) [facility] Morphology Brian (Bld) [Interp] DOUBLE HEAD 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 [facility] Neutrophils (Bld) [#/Vol] 3.3 10*3/uL (1.4-7.0 ) [facility] Neutrophils/100 WBC (Bld) 58 % (Not Estab. ) [facility] Nucleated RBC/100 WBC (Bld) [Ratio] DOUBLE HEAD 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 [facility] Platelets (Bld) [#/Vol] 289 10*3/uL (150-450 ) [facility] RBC (Bld) [#/Vol] 5.09 10*6/uL (3.77-5.28 ) [facility] WBC (Bld) [#/Vol] 5.6 10*3/uL (3.4-10.8 ) [facility] Comment on above: Note: Effective De cember 2023 profile [id number] WBC will bemade non-orderable as a stand-alone order code. No Panel Informationon 06-06 Immature Cells DOUBLE HEAD 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 [facility] LDL Calc Comment: Comment [facility] Comment on above: Note: In the absence of the LDL-c value, if the Total Cholesterol(TC) is >260 mg/dL for those <16 years old or >290 forthose >/=16 years old, consider evaluating for FamilialHypercholesterolemia(FH) if clinically indicated.If the TC is below these limits, the probability of FHcannot be determined. Reported Physicians See Note [facility] Comment on above: Note: Reported Physi cians:Ordering: Kavita Qureshi Specimen Status Report TNP [facility] Comment on above: Note: Test not perfo rmed. Insufficient specimen to perform orcomplete analysis. TEST: [id number] Hgb A1c with eAG Estimation Glucose, Whole Bloodon 07-05 Glucose [Mass/Vol] 350 mg/dL High 65 - 99 mg/dL [facility] Interpretation and review of laboratory results Abnormal [facility] CBC with Auto Differentialon 07-04-2022 Absolute [facility]os # 0.10 [facility] Absolute Lymph # 0.80 Low [facility] Absolute Phillips # 0.60 [facility] Basophils (Bld) [#/Vol] 0.00 10*3/uL [facility] Basophils/100 WBC (Bld) 1 % 0 - 2 % [facility] Differential Type YES [facility] Eosinophils/100 WBC (Bld) 2 % 0 - 5 % [facility] Hematocrit (Bld) [Volume fraction] 43.2 % 36 - 46 % [facility] Hemoglobin (Bld) [Mass/Vol] 14.2 g/dL 12.0 - 16.0 g/dL [facility] Interpretation and review of laboratory results Abnormal [facility] Lymphocytes/100 WBC (Bld) 14 % Low 15 - 40 % [facility] MCH (RBC) [Entitic mass] 28.3 pg 26 - 34 pg [facility] MCHC (RBC) [Mass/Vol] 32.8 g/dL 31 - 3 7 g/dL [facility] MCV (RBC) [Entitic vol] 86.3 fL 80 - 100 fL [facility] Monocytes/100 WBC (Bld) 11 % High 4 - 8 % [facility] Platelet distribution width (Bld) [Ratio] 13.4 % 12.1 - 15.2 % [facility] Platelets (Bld) [#/Vol] 382 10*3/uL [facility] RBC (Bld) [#/Vol] 5.01 10*6/uL 4.0 - 5.2 m/uL [facility] Segmented neutrophils/100 WBC (Bld) 72 % 47 - 75 % [facility] Segs Absolute 4.20 [facility] WBC (Bld) [#/Vol] 5.8 10*3/uL [facility] Comprehensive Metabolic Pane karthikeyan 07-04-2022 Albumin [Mass/Vol] 3.7 g/dL 3.5 - 5.2 g/dL [facility] ALP (Bld) [Catalytic activity/Vol] 120 U/L High 35 - 104 U/L [facility] ALT [Catalytic activity/Vol] 26 U/L 5 - 33 U/L [facility] Anion gap [Moles/Vol] 12 mmol/L 9 - 17 mmol/L [facility] AST [Catalytic activity/Vol] 22 U/L NINF - 32 U/L [facility] Bilirubin [Mass/Vol] 0.3 mg/dL 0.3 - 1 .2 mg/dL [facility] Calcium [Mass/Vol] 9.3 mg/dL 8.6 - 10. 4 mg/dL [facility] Chloride [Moles/Vol] 93 mmol/L Low 98 - 10 7 mmol/L [facility] CO2 [Moles/Vol] 26 mmol/L 20 - 31 mmol/L [facility] Creatinine [Mass/Vol] 0.42 mg/dL Low 0.50 - 0.90 mg/dL [facility] GFR/1.73 sq M.predicted MDRD (S/P/Bld) [Vol rate/Area] - PINF [facility] Comment on above: Effective Apr 18, 2022 [...] 382 mg/dL High 70 - 99 mg/dL [facility] Interpretation and review of laboratory results Abnormal [facility] Potassium [Moles/Vol] 4.9 mmol/L 3.7 - 5.3 mmol/L [facility] Protein [Mass/Vol] 7.1 g/dL 6.4 - 8.3 g/dL [facility] Sodium [Moles/Vol] 131 mmol/L Low 135 - 144 mmol/L [facility] Urea nitrogen (BldV) [Mass/Vol] 10 mg/dL 6 - 20 mg/dL [facility] Urea nitrogen/Creatinine (Bld) [Mass ratio] 24 High 9 - 20 [facility] Hemoglobin A1Con 07-04-2022 Glucose [Mass/Vol] 344 mg/dL [facility] Comment on above: The ADA and AACC rec ommend providing the estimated average glucose result to permit better patient understanding of their HBA1c result. HbA1c (Bld) [Mass fraction] 13.6 % High 4.0 - 6.0 % [facility] Interpretation and review of laboratory results Abnormal [facility] Lipid Panelon 07-04-2022 Cholesterol [Mass/Vol] 338 mg/dL High NINF - 200 mg/dL [facility] Comment on above: Cholesterol Guidelines: <200 Desirable 200-240 Borderline >240 Undesirable Cholesterol in HDL [Mass/Vol] 37 mg/dL Low 40 - PINF mg/dL [facility] Comment on above: HDL Guidelines: <40 Undesirable 40-59 Borderline >59 Desirable Cholesterol in LDL [Mass/Vol] 235 mg/dL High 0 - 130 mg/dL [facility] Comment on above: LDL Guidelines: <100 Desirable 100-129 Near to/above Desirable 130-159 Borderline >159 Undesirable Direct (measured) LDL and calculated LDL are not interchangeable tests. Cholesterol.total/Cho lesterol in HDL [Mass ratio] 9.1 {ratio} High NINF - 5 [facility] Interpretation and review of laboratory results Abnormal [facility] Triglyceride [Mass/Vol] 330 mg/dL High NINF - 150 mg/dL [facility] Comment on above: Triglyceride Guidelines: <150 Desirable 150-199 Borderline 200-499 High >499 Very high Based on AHA Guidelines for fasting triglyceride, April 2012. [facility] Microalbumin, Uron 2 Albumin/Creatinine DL <= 20 mg/L (24H U) [Mass ratio] 17 mg/L NINF - 21 mg/L [facility] Albumin/Creatinine DL <= 20 mg/L (U) [Ratio] 28 High NINF [facility] Creatinine [Mass/Vol] 61.0 mg/dL 28.0 - 217.0 mg/dL [facility] Interpretation and review of laboratory results Abnormal [facility] Patient Fasting?on 2 Patient Fasting? YES [facility] B HYDROXYBUTYRATEon 06-22-20 22 B HYDROXYBUTYRATE 2.66 MMOL/L High 0.02-0.27 [facility] CBCon 06-22-2022 ABSOLUTE BAS 0.1 10*3/uL Normal 0.0-0.2 [facility] ABSOLUTE EOS 0.1 10*3/uL Normal 0.0-0.7 [facility] ABSOLUTE NEUTROPHIL COUNT 4.7 10*3/uL Normal 1.4-6.5 [facility] Basophils/100 WBC (Bld) 1.3 % Normal 0.0-2.0 [facility] DTYPE AUTO DIFF Normal [facility] Eosinophils/100 WBC (Bld) 0.9 % Normal 0.0-11.0 [facility] Lymphocytes (Bld) [#/Vol] 1.4 10*3/uL Normal 1.2-3.4 [facility] Lymphocytes/100 WBC (Bld) 19.9 % Low 20.0-55.0 [facility] Monocytes (Bld) [#/Vol] 0.7 10*3/uL Normal 0.0-0.7 [facility] Monocytes/100 WBC (Bld) 10.1 % High 0.0-10.0 [facility] Neutrophils/100 WBC (Bld) 67.8 % Normal 37.0-75.0 [facility] Erythrocyte distribution width (RBC) [Ratio] 13.7 % Normal 11.5-14.5 [facility] Hematocrit (Bld) [Volume fraction] 39.8 % Normal 36.0-48.0 [facility] Comment on above: Result Comment: IV F LUIDS Hemoglobin (Bld) [Mass/Vol] 13.4 g/dL Normal 12.0-16.0 [facility] Comment on above: Result Comment: iv f luids MCH (RBC) [Entitic mass] 29.2 pg Normal 26.0-35.0 [facility] MCHC (RBC) [Mass/Vol] 33.8 g/dL Normal 27.0-37.0 [facility] MCV (RBC) [Entitic vol] 86.4 fL Normal 80.0-100.0 [facility] Comment on above: Result Comment: IV F LUIDS Platelet mean volume (Bld) [Entitic vol] 8.9 fL Normal 7.4-11.0 [facility] Platelets (Bld) [#/Vol] 319 10*3/uL Normal 130.0-400.0 [facility] RBC (Bld) [#/Vol] 4.61 10*6/uL Normal 4.0-5.4 [facility] WBC (Bld) [#/Vol] 6.9 10*3/uL Normal 3.6-11.0 [facility] CBC, EDIF, PLATELETon 2021 ABSOLUTE BASOPHIL COUNT 0.1 10*3/uL 0.0 - 0.2 10*3/uL [facility] Basophils/100 WBC (Bld) 1.3 % 0.0 - 2.0 % [facility] Differential cell count method Nom (Bld) AUTO DIFF % [facility] Eosinophils (Bld) [#/Vol] 0.1 10*3/uL 0.0 - 0.7 10*3/uL [facility] Eosinophils/100 WBC (Bld) 0.9 % 0.0 - 11.0 % [facility] Erythrocyte distribution width (RBC) [Ratio] 13.7 % 11.5 - 14.5 % [facility] Hematocrit (Bld) [Volume fraction] 39.8 % 36.0 - 48.0 % [facility] Comment on above: IV FLUIDS Hemoglobin (Bld) [Mass/Vol] 13.4 g/dL [facility] Comment on above: iv fluids Interpretation and review of laboratory results Abnormal [facility] Lymphocytes (Bld) [#/Vol] 1.4 10*3/uL 1.2 - 3.4 10*3/uL [facility] Lymphocytes/100 WBC (Bld) 19.9 % Low 20.0 - 55.0 % [facility] MCH (RBC) [Entitic mass] 29.2 pg 26.0 - 35.0 PG [facility] MCHC (RBC) [Mass/Vol] 33.8 g/dL [facility] MCV (RBC) [Entitic vol] 86.4 fL [facility] Comment on above: IV FLUIDS Monocytes (Bld) [#/Vol] 0.7 10*3/uL 0.0 - 0.7 10*3/uL [facility] Monocytes/100 WBC (Bld) 10.1 % High 0.0 - 10.0 % [facility] Neutrophils (Bld) [#/Vol] 4.7 10*3/uL 1.4 - 6.5 10*3/uL [facility] Neutrophils/100 WBC (Bld) 67.8 % 37.0 - 75.0 % [facility] Platelet mean volume (Bld) [Entitic vol] 8.9 fL [facility] Platelets (Bld) [#/Vol] 319 10*3/uL 130.0 - 400.0 10*3/uL [facility] RBC (Bld) [#/Vol] 4.61 10*6/uL 4.0 - 5.4 10*6/uL [facility] WBC (Bld) [#/Vol] 6.9 10*3/uL 3.6 - 11.0 10*3/uL [facility] GLUCOSE (POC DEVICE)on 06-22 GLUCOSE, POINT OF CARE 190 [facility] Interpretation and review of laboratory results Abnormal [facility] Ems Coordinator [phone] [facility] GLUCOSE, POINT OF CARE 323 [facility] Interpretation and review of laboratory results Abnormal [facility] Health Ems Coordinator [phone] [facility] GLUCOSE, POINT OF CARE 340 [facility] Interpretation and review of laboratory results Abnormal [facility] Health Ems Coordinator [phone] [facility] GLUCOSE, POINT OF CARE 214 High [facility] Interpretation and review of laboratory results Abnormal [facility] Health Ems Coordinator [id number] [facility] GLUCOSE, POINT OF CARE 213 [facility] Interpretation and review of laboratory results Abnormal [facility] Ems Coordinator [id number] [facility] GLUCOSE, POINT OF CARE 230 High [facility] Interpretation and review of laboratory results Abnormal [facility] Ems Coordinator [phone] [facility] GLUCOSE, POINT OF CARE 234 [facility] Interpretation and review of laboratory results Abnormal [facility] Ems Coordinator [id number] [facility] GLUCOSE, POINT OF CARE 252 High [facility] Interpretation and review of laboratory results Abnormal [facility] Ems Coordinator [id number] [facility] GLUCOSE, POINT OF CARE 242 [facility] Interpretation and review of laboratory results Abnormal [facility] Ems Coordinator [id number] [facility] GLUCOSE, POINT OF CARE 245 [facility] Interpretation and review of laboratory results Abnormal [facility] Health Ems Coordinator [id number] [facility] GLUCOSE, POINT OF CARE 214 [facility] Interpretation and review of laboratory results Abnormal [facility] Health Ems Coordinator [facility] GLUCOSE, POINT OF CARE 212 [facility] Interpretation and review of laboratory results Abnormal [facility] Ems Coordinator [id number] [facility] GLUCOSE, POINT OF CARE 221 [facility] Interpretation and review of laboratory results Abnormal [facility] Ems Coordinator [id number] [facility] KETONES (BLOOD)on 06-22-2022 Beta hydroxybutyrate [Moles/Vol] 2.66 [facility] Interpretation and review of laboratory results Abnormal [facility] MAGNESIUMon 06-22-2022 Magnesium [Mass/Vol] 1.9 mg/dL Normal 1.6-2.3 [facility] Magnesium [Mass/Vol] 1.9 mg/dL [facility] Magnesium [Mass/Vol] 2.0 mg/dL Normal 1.6-2.3 [facility] Comment on above: Performed By: #### A CBC #### [place] [address] Magnesium [Mass/Vol] 2.0 mg/dL [facility] MRSA SCREENon 06-22-2022 MRSA DNA ESPERANZA+probe Ql (Unsp spec) Not detected Normal NOT DETECTED [facility] Comment on above: Performed By: #### M RSAST #### Testing performed at [facility] [address] [place] [address] STAPH AUREUS SCREEN Detected Abnormal NOT DETECTED [facility] Comment on above: Result Comment: Test ing performed at [place] [address] Performed By: #### M RSAST #### Testing performed at [facility] [address] [place] [address] No Panel Informationon 06-22 [facility] POCT GLUCOSEon 06-22-2022 Glucose [Mass/Vol] 190 mg/dL High 70-100 [facility] [employer] [phone] Normal [facility] Glucose [Mass/Vol] 323 mg/dL High 70-100 [facility] [employer] [phone] Normal [facility] Glucose [Mass/Vol] 340 mg/dL High 70-100 [facility] [employer] [phone] Normal [facility] Glucose [Mass/Vol] 214 mg/dL High 70-100 [facility] [employer] [phone] Normal [facility] Glucose [Mass/Vol] 213 mg/dL High 70-100 [facility] [employer] [phone] Normal [facility] Glucose [Mass/Vol] 230 mg/dL High 70-100 [facility] [employer] [phone] Normal [facility] Glucose [Mass/Vol] 234 mg/dL High 70-100 [facility] [employer] [id number] Normal [facility] Glucose [Mass/Vol] 252 mg/dL High 70-100 [facility] [employer] Normal [facility] Glucose [Mass/Vol] 242 mg/dL High 70-100 [facility] [employer] [id number] Normal [facility] Glucose [Mass/Vol] 245 mg/dL High 70-100 [facility] [employer] Normal [facility] Glucose [Mass/Vol] 214 mg/dL High 70-100 [facility] [employer] Normal [facility] Glucose [Mass/Vol] 212 mg/dL High 70-100 [facility] [employer] Normal [facility] Glucose [Mass/Vol] 221 mg/dL High 70-100 [facility] [employer] Normal [facility] Glucose [Mass/Vol] 192 mg/dL High 70-100 [facility] [employer] Normal [facility] Glucose [Mass/Vol] 175 mg/dL High 70-100 [facility] [employer] Normal [facility] RENAL FUNCTION PANELon 06-22 Albumin [Mass/Vol] 3.5 G/dl 3.5 - 5.0 G/dl [facility] Calcium [Mass/Vol] 8.9 mg/dL [facility] Chloride [Moles/Vol] 106 mmol/L [facility] Comment on above: Please note: Triglyc eride levels of 600mg/dL or higher may positively bias chloride results by approximately 2.1 mmol CO2 [Moles/Vol] 20 mmol/L Low [facility] Creatinine [Mass/Vol] 0.35 mg/dL Low [facility] GFR COMMENT Average GFR for 50-5 9 years old = 93. [facility] Comment on above: Chronic Kidney disea se, GFR = <60. Kidney failure, GFR = <15. The GFR estimate is not adjusted for extreme body surface area or acute process, nor has it been validated for women or ethnic groups other than and . GFR/1.73 sq M.predicted among blacks MDRD (S/P/Bld) [Vol rate/Area] 250 mL/min/{1.73_m2} ml/min/1.73 sq.m [facility] GFR/1.73 sq M.predicted among non-blacks MDRD (S/P/Bld) [Vol rate/Area] 206 mL/min/{1.73_m2} ml/min/1.73 sq.m [facility] Glucose post fast [Mass/Vol] 204 mg/dL High [facility] Comment on above: NORMAL <100 mg/dL PREDIABETES 101-126 mg/dL DIABETES 126 mg/dL or higher Interpretation and review of laboratory results Abnormal [facility] Phosphate [Mass/Vol] 2.0 mg/dL Low [facility] Potassium [Moles/Vol] 3.7 mmol/L [facility] Sodium [Moles/Vol] 135 mmol/L Low [facility] Urea nitrogen [Mass/Vol] 10 mg/dL [facility] Albumin [Mass/Vol] 3.3 G/dl Low 3.5 - 5.0 G/dl [facility] Calcium [Mass/Vol] 8.9 mg/dL [facility] Chloride [Moles/Vol] 106 mmol/L [facility] Comment on above: Please note: Triglyc eride levels of 600mg/dL or higher may positively bias chloride results by approximately 2.1 mmol CO2 [Moles/Vol] 17 mmol/L Critically low [facility] Comment on above: CALLED TO AND READ B ACK BY ALISON DOHERTY 06.22.22 @[address] [place] [address] Creatinine [Mass/Vol] 0.36 mg/dL Low [facility] GFR COMMENT Average GFR for 50-5 9 years old = 93. [facility] Comment on above: Chronic Kidney disea se, GFR = <60. Kidney failure, GFR = <15. The GFR estimate is not adjusted for extreme body surface area or acute process, nor has it been validated for women or ethnic groups other than and . GFR/1.73 sq M.predicted among blacks MDRD (S/P/Bld) [Vol rate/Area] 242 mL/min/{1.73_m2} ml/min/1.73 sq.m [facility] GFR/1.73 sq M.predicted among non-blacks MDRD (S/P/Bld) [Vol rate/Area] 200 mL/min/{1.73_m2} ml/min/1.73 sq.m [facility] Glucose post fast [Mass/Vol] 338 mg/dL High [facility] Comment on above: NORMAL <100 mg/dL PREDIABETES 101-126 mg/dL DIABETES 126 mg/dL or higher Interpretation and review of laboratory results Abnormal [facility] Phosphate [Mass/Vol] 2.2 mg/dL Low [facility] Potassium [Moles/Vol] 3.1 mmol/L Low [facility] Sodium [Moles/Vol] 134 mmol/L Low [facility] Urea nitrogen [Mass/Vol] 10 mg/dL [facility] Albumin [Mass/Vol] 3.4 G/dl Low 3.5 - 5.0 G/dl [facility] Calcium [Mass/Vol] 8.8 mg/dL [facility] Chloride [Moles/Vol] 108 mmol/L High [facility] Comment on above: Please note: Triglyc eride levels of 600mg/dL or higher may positively bias chloride results by approximately 2.1 mmol CO2 [Moles/Vol] 15 mmol/L Critically low [facility] Comment on above: CALLED TO AND READ B ACK BY ABBIE BEE IN ICU 06.22.2022 AT 05:58 [facility] Creatinine [Mass/Vol] 0.37 mg/dL Low [facility] GFR COMMENT Average GFR for 50-5 9 years old = 93. [facility] Comment on above: Chronic Kidney disea se, GFR = <60. Kidney failure, GFR = <15. The GFR estimate is not adjusted for extreme body surface area or acute process, nor has it been validated for women or ethnic groups other than and . GFR/1.73 sq M.predicted among blacks MDRD (S/P/Bld) [Vol rate/Area] 234 mL/min/{1.73_m2} ml/min/1.73 sq.m [facility] GFR/1.73 sq M.predicted among non-blacks MDRD (S/P/Bld) [Vol rate/Area] 193 mL/min/{1.73_m2} ml/min/1.73 sq.m [facility] Glucose post fast [Mass/Vol] 254 mg/dL High [facility] Comment on above: NORMAL <100 mg/dL PREDIABETES 101-126 mg/dL DIABETES 126 mg/dL or higher Interpretation and review of laboratory results Abnormal [facility] Phosphate [Mass/Vol] 1.6 mg/dL Critically low [facility] Comment on above: CALLED TO AND READ B ACK BY ABBIE BEE IN ICU 06.22.2022 AT 05:58 [facility] Potassium [Moles/Vol] 3.1 mmol/L Low [facility] Sodium [Moles/Vol] 135 mmol/L Low [facility] Urea nitrogen [Mass/Vol] 11 mg/dL [facility] Albumin [Mass/Vol] 3.4 G/dl Low 3.5 - 5.0 G/dl [facility] Calcium [Mass/Vol] 8.8 mg/dL [facility] Chloride [Moles/Vol] 111 mmol/L High [facility] Comment on above: Please note: Triglyc eride levels of 600mg/dL or higher may positively bias chloride results by approximately 2.1 mmol CO2 [Moles/Vol] 9 mmol/L Critically low [facility] Comment on above: CALLED TO AND READ B ACK BY KWAKU COCHRAN IN ICU 06.22.2022 AT 01:51 [facility] Creatinine [Mass/Vol] 0.44 mg/dL Low [facility] GFR COMMENT Average GFR for 50-5 9 years old = 93. [facility] Comment on above: Chronic Kidney disea se, GFR = <60. Kidney failure, GFR = <15. The GFR estimate is not adjusted for extreme body surface area or acute process, nor has it been validated for women or ethnic groups other than and . GFR/1.73 sq M.predicted among blacks MDRD (S/P/Bld) [Vol rate/Area] 192 mL/min/{1.73_m2} ml/min/1.73 sq.m [facility] GFR/1.73 sq M.predicted among non-blacks MDRD (S/P/Bld) [Vol rate/Area] 158 mL/min/{1.73_m2} ml/min/1.73 sq.m [facility] Glucose post fast [Mass/Vol] 234 mg/dL High [facility] Comment on above: NORMAL <100 mg/dL PREDIABETES 101-126 mg/dL DIABETES 126 mg/dL or higher Interpretation and review of laboratory results Abnormal [facility] Phosphate [Mass/Vol] 1.7 mg/dL Critically low [facility] Comment on above: CALLED TO AND READ B ACK BY KWAKU COCHRAN IN ICU 06.22.2022 AT 01:50 [facility] Potassium [Moles/Vol] 3.4 mmol/L Low [facility] Sodium [Moles/Vol] 135 mmol/L Low [facility] Urea nitrogen [Mass/Vol] 12 mg/dL [facility] RENAL PANEL,FASTINGon 2021 ALBUMIN 3.5 G/dl Normal 3.5-5.0 [facility] Calcium [Mass/Vol] 8.9 mg/dL Normal 8.4-10.2 [facility] Chloride [Moles/Vol] 106 mmol/L Normal 98-107 [facility] Comment on above: Result Comment: Sandip collins note: Triglyceride levels of 600mg/dL or higher may positively bias chloride results by approximately 2.1 mmol CO2 [Moles/Vol] 20 mmol/L Low 22-30 [facility] [facility] Creatinine [Mass/Vol] 0.35 mg/dL Low 0.7-1.2 [facility] EST. GFR, 250 ml/min/1.73sq.m Normal [facility] EST. GFR,Non 206 ml/min/1.73sq.m [facility] GFR Information Average GFR for 50-5 9 years old = 93. Normal [facility] Comment on above: Result Comment: Cigarette Inspector yaneth Kidney disease, GFR = <60. Kidney failure, GFR = <15. The GFR estimate is not adjusted for extreme body surface area or acute process, nor has it been validated for women or ethnic groups other than and . Glucose [Mass/Vol] 204 mg/dL High 70-100 [facility] Comment on above: Result Comment: NORMAL <100 mg/dL PREDIABETES 101-126 mg/dL DIABETES 126 mg/dL or higher PHOSPHOROUS 2.0 MG/DL Low 2.5-4.5 [facility] Potassium [Moles/Vol] 3.7 mmol/L Normal 3.5-5.1 [facility] Sodium [Moles/Vol] 135 mmol/L Low 137-145 [facility] Urea nitrogen [Mass/Vol] 10 mg/dL Normal 7-20 [facility] ALBUMIN 3.3 G/dl Low 3.5-5.0 [facility] Calcium [Mass/Vol] 8.9 mg/dL Normal 8.4-10.2 [facility] Chloride [Moles/Vol] 106 mmol/L Normal 98-107 [facility] Comment on above: Result Comment: Sandip collins note: Triglyceride levels of 600mg/dL or higher may positively bias chloride results by approximately 2.1 mmol CO2 [Moles/Vol] 17 mmol/L Critically low 22-30 [facility] Comment on above: Result Comment: CALL ED TO AND READ BACK BY ALISON DOHERTY 06.22.22 @1249 [facility] Creatinine [Mass/Vol] 0.36 mg/dL Low 0.7-1.2 [facility] EST. GFR, 242 ml/min/1.73sq.m Normal [facility] EST. GFR,Non 200 ml/min/1.73sq.m Normal [facility] GFR Information Average GFR for 50-5 9 years old = 93. Normal [facility] Comment on above: Result Comment: Cigarette Inspector yaneth Kidney disease, GFR = <60. Kidney failure, GFR = <15. The GFR estimate is not adjusted for extreme body surface area or acute process, nor has it been validated for women or ethnic groups other than and . Glucose [Mass/Vol] 338 mg/dL High 70-100 [facility] Comment on above: Result Comment: NORMAL <100 mg/dL PREDIABETES 101-126 mg/dL DIABETES 126 mg/dL or higher PHOSPHOROUS 2.2 MG/DL Low 2.5-4.5 [facility] Potassium [Moles/Vol] 3.1 mmol/L Low 3.5-5.1 [facility] Sodium [Moles/Vol] 134 mmol/L Low 137-145 [facility] Urea nitrogen [Mass/Vol] 10 mg/dL Normal 7-20 [facility] ALBUMIN 3.4 G/dl Low 3.5-5.0 [facility] Calcium [Mass/Vol] 8.8 mg/dL Normal 8.4-10.2 [facility] Chloride [Moles/Vol] 108 mmol/L High 98-107 [facility] Comment on above: Result Comment: Sandip collins note: Triglyceride levels of 600mg/dL or higher may positively bias chloride results by approximately 2.1 mmol CO2 [Moles/Vol] 15 mmol/L Critically low 22-30 [facility] Comment on above: Result Comment: CALL ED TO AND READ BACK BY ABBIE BEE IN ICU 06.22.2022 AT 05:58 T[facility] Creatinine [Mass/Vol] 0.37 mg/dL Low 0.7-1.2 [facility] EST. GFR, 234 ml/min/1.73sq.m Normal [facility] EST. GFR,Non 193 ml/min/1.73sq.m Normal [facility] GFR Information Average GFR for 50-5 9 years old = 93. Normal [facility] Comment on above: Result Comment: Cigarette Inspector yaneth Kidney disease, GFR = <60. Kidney failure, GFR = <15. The GFR estimate is not adjusted for extreme body surface area or acute process, nor has it been validated for women or ethnic groups other than and . Glucose [Mass/Vol] 254 mg/dL High 70-100 [facility] Comment on above: Result Comment: NORMAL <100 mg/dL PREDIABETES 101-126 mg/dL DIABETES 126 mg/dL or higher PHOSPHOROUS 1.6 MG/DL Critically low 2.5-4.5 [facility] Comment on above: Result Comment: CALL ED TO AND READ BACK BY ABBIE BEE IN ICU 06.22.2022 AT 05:58 TLA Potassium [Moles/Vol] 3.1 mmol/L Low 3.5-5.1 [facility] Sodium [Moles/Vol] 135 mmol/L Low 137-145 [facility] Urea nitrogen [Mass/Vol] 11 mg/dL Normal 7-20 [facility] CO2 [Moles/Vol] 9 mmol/L Critically low 22-30 [facility] Comment on above: Result Comment: CALL ED TO AND READ BACK BY KWAKU COCHRAN IN ICU 06.22.2022 AT 01:51 TLA Performed By: #### A CBC #### [place] [address] ALBUMIN 3.4 G/dl Low 3.5-5.0 [facility] Comment on above: Performed By: #### A CBC #### Testing performed at [address] [address] Calcium [Mass/Vol] 8.8 mg/dL Normal 8.4-10.2 [facility] Comment on above: Performed By: #### A CBC #### Testing performed at [place] [id number] Chloride [Moles/Vol] 111 mmol/L High 98-107 [facility] Comment on above: Result Comment: Sandip collins note: Triglyceride levels of 600mg/dL or higher may positively bias chloride results by approximately 2.1 mmol Performed By: #### A CBC #### Testing performed at [place] [id number] Creatinine [Mass/Vol] 0.44 mg/dL Low 0.7-1.2 [facility] Comment on above: Performed By: #### A CBC #### Testing performed at [address] [address] EST. GFR, 192 ml/min/1.73sq.m [facility] Comment on above: Performed By: #### A CBC #### Testing performed at [address] [address] EST. GFR,Non 158 ml/min/1.73sq.m [facility] Comment on above: Performed By: #### A CBC #### Testing performed at [address] [address] GFR Information Average GFR for 50-5 9 years old = 93. Normal [facility] Comment on above: Result Comment: Cigarette Inspector yaneth Kidney disease, GFR = <60. Kidney failure, GFR = <15. The GFR estimate is not adjusted for extreme body surface area or acute process, nor has it been validated for women or ethnic groups other than and . Performed By: #### A CBC #### Testing performed at [place] [id number] Glucose [Mass/Vol] 234 mg/dL High 70-100 [facility] Comment on above: Result Comment: NORMAL <100 mg/dL PREDIABETES 101-126 mg/dL DIABETES 126 mg/dL or higher Performed By: #### A CBC #### Testing performed at [place] [address] [place] [address] PHOSPHOROUS 1.7 MG/DL Critically low 2.5-4.5 [facility] Comment on above: Result Comment: CALL ED TO AND READ BACK BY KWAKU COCHRAN IN ICU 06.22.2022 AT 01:50 TLA Performed By: #### A CBC #### Testing performed at [address] [address] Potassium [Moles/Vol] 3.4 mmol/L Low 3.5-5.1 [facility] Comment on above: Performed By: #### A CBC #### Testing performed at [place] [id number] Sodium [Moles/Vol] 135 mmol/L Low 137-145 [facility] Comment on above: Performed By: #### A CBC #### Testing performed at [address] [address] Urea nitrogen [Mass/Vol] 12 mg/dL Normal 7-20 [facility] Comment on above: Performed By: #### A CBC #### Testing performed at [address] [address] SCREEN: MRSA ONLY, NARES (IS OLATION SCREEN)on 06-22-2022 Interpretation and review of laboratory results Abnormal [facility] MRSA isol Org specific cx Ql (Nose) Not detected NOT DETECTED [facility] STAPHYOCOCCUS AUREUS BY PCR Detected Abnormal NOT DETECTED [facility] Comment on above: Testing performed at [place], [place] [address] [facility] B HYDROXYBUTYRATEon 06-21-20 22 B HYDROXYBUTYRATE 9.44 MMOL/L High 0.02-0.27 [facility] BLOOD GAS VENOUSon 2 Base deficit (BldV) [Moles/Vol] 21.3 High [facility] Carboxyhemoglobin (Bld) [Mass fraction] 0.6 % [facility] CO2 (BldC) [Partial pressure] 21 Low [facility] HCO3 (Bld) [Moles/Vol] 6.5 mmol/L Low [facility] Hemoglobin (Bld) [Mass/Vol] 17.1 g/dL [facility] Interpretation and review of laboratory results Abnormal [facility] Methemoglobin (BldC) [Mass fraction] 0.0 % [facility] Oxygen (BldC) [Partial pressure] 39 [facility] Oxyhemoglobin (Bld) [Mass fraction] 68.0 % [facility] pH (BldC) 7.10 Critically low 7.31 - 7.41 [facility] Comment on above: CALLED TO AND READ B ACK BY Lonnie CHO 12.6.22 @[address] [place] [address] CBCon 06-21-2022 ABSOLUTE BAS 0.1 10*3/uL Normal 0.0-0.2 [facility] Comment on above: Performed By: #### A CBC #### [place] [address] ABSOLUTE EOS 0.0 10*3/uL Normal 0.0-0.7 [facility] Comment on above: Performed By: #### A CBC #### Testing performed at [place] [id number] ABSOLUTE NEUTROPHIL COUNT 9.1 10*3/uL High 1.4-6.5 [facility] Comment on above: Performed By: #### A CBC #### Testing performed at [place] [id number] Basophils/100 WBC (Bld) 0.7 % Normal 0.0-2.0 [facility] Comment on above: Performed By: #### A CBC #### Testing performed at [place] [id number] DTYPE AUTO DIFF Normal [facility] Comment on above: Performed By: #### A CBC #### Testing performed at [address] [address] Eosinophils/100 WBC (Bld) 0.0 % Normal 0.0-11.0 [facility] Comment on above: Performed By: #### A CBC #### Testing performed at [address] [address] Lymphocytes (Bld) [#/Vol] 1.1 10*3/uL Low 1.2-3.4 [facility] Comment on above: Performed By: #### A CBC #### Testing performed at [address] [address] Lymphocytes/100 WBC (Bld) 9.8 % Low 20.0-55.0 [facility] Comment on above: Performed By: #### A CBC #### Testing performed at [address] [address] Monocytes (Bld) [#/Vol] 0.6 10*3/uL Normal 0.0-0.7 [facility] Comment on above: Performed By: #### A CBC #### Testing performed at [address] [address] Monocytes/100 WBC (Bld) 5.5 % Normal 0.0-10.0 [facility] Comment on above: Performed By: #### A CBC #### Testing performed at [address] [address] Neutrophils/100 WBC (Bld) 84.0 % High 37.0-75.0 [facility] Comment on above: Performed By: #### A CBC #### Testing performed at [address] [address] Erythrocyte distribution width (RBC) [Ratio] 14.4 % Normal 11.5-14.5 [facility] Comment on above: Performed By: #### A CBC #### Testing performed at [address] [place] [address] Hematocrit (Bld) [Volume fraction] 52.8 % High 36.0-48.0 [facility] Comment on above: Performed By: #### A CBC #### Testing performed at [address] [address] Hemoglobin (Bld) [Mass/Vol] 17.3 g/dL High 12.0-16.0 [facility] Comment on above: Performed By: #### A CBC #### Testing performed at [address] [address] MCH (RBC) [Entitic mass] 29.4 pg Normal 26.0-35.0 [facility] Comment on above: Performed By: #### A CBC #### Testing performed at [address] [address] MCHC (RBC) [Mass/Vol] 32.8 g/dL Normal 27.0-37.0 [facility] Comment on above: Performed By: #### A CBC #### Testing performed at [address] [address] MCV (RBC) [Entitic vol] 89.7 fL Normal 80.0-100.0 [facility] Comment on above: Performed By: #### A CBC #### Testing performed at [address] [address] Platelet mean volume (Bld) [Entitic vol] 8.4 fL Normal 7.4-11.0 [facility] Comment on above: Performed By: #### A CBC #### Testing performed at [address] [address] Platelets (Bld) [#/Vol] 390 10*3/uL Normal 130.0-400.0 [facility] Comment on above: Performed By: #### A CBC #### Testing performed at [address] [address] RBC (Bld) [#/Vol] 5.88 10*6/uL High 4.0-5.4 [facility] Comment on above: Performed By: #### A CBC #### Testing performed at [facility] [address] [place] [address] WBC (Bld) [#/Vol] 10.9 10*3/uL Normal 3.6-11.0 [facility] Comment on above: Performed By: #### A CBC #### Testing performed at [facility] [address] [place] [address] CBC, EDIF, PLATELETon 2021 ABSOLUTE BASOPHIL COUNT 0.1 10*3/uL 0.0 - 0.2 10*3/uL [facility] Basophils/100 WBC (Bld) 0.7 % 0.0 - 2.0 % [facility] Differential cell count method Nom (Bld) AUTO DIFF % [facility] Eosinophils (Bld) [#/Vol] 0.0 10*3/uL 0.0 - 0.7 10*3/uL [facility] Eosinophils/100 WBC (Bld) 0.0 % 0.0 - 11.0 % [facility] Erythrocyte distribution width (RBC) [Ratio] 14.4 % 11.5 - 14.5 % [facility] Hematocrit (Bld) [Volume fraction] 52.8 % High 36.0 - 48.0 % [facility] Hemoglobin (Bld) [Mass/Vol] 17.3 g/dL High [facility] Interpretation and review of laboratory results Abnormal [facility] Lymphocytes (Bld) [#/Vol] 1.1 10*3/uL Low 1.2 - 3.4 10*3/uL [facility] Lymphocytes/100 WBC (Bld) 9.8 % Low 20.0 - 55.0 % [facility] MCH (RBC) [Entitic mass] 29.4 pg 26.0 - 35.0 PG [facility] MCHC (RBC) [Mass/Vol] 32.8 g/dL [facility] MCV (RBC) [Entitic vol] 89.7 fL [facility] Monocytes (Bld) [#/Vol] 0.6 10*3/uL 0.0 - 0.7 10*3/uL [facility] Monocytes/100 WBC (Bld) 5.5 % 0.0 - 10.0 % [facility] Neutrophils (Bld) [#/Vol] 9.1 10*3/uL High 1.4 - 6.5 10*3/uL [facility] Neutrophils/100 WBC (Bld) 84.0 % High 37.0 - 75.0 % [facility] Platelet mean volume (Bld) [Entitic vol] 8.4 fL [facility] Platelets (Bld) [#/Vol] 390 10*3/uL 130.0 - 400.0 10*3/uL [facility] RBC (Bld) [#/Vol] 5.88 10*6/uL High 4.0 - 5.4 10*6/uL [facility] WBC (Bld) [#/Vol] 10.9 10*3/uL 3.6 - 11.0 10*3/uL [facility] CMP FASTINGon 06-21-2022 A:G RATIO 1.1 RATIO Low 1.3-2.2 [facility] Comment on above: Performed By: #### A CBC #### Testing performed at [address] [address] ALBUMIN 4.8 G/dl Normal 3.5-5.0 [facility] Comment on above: Performed By: #### A CBC #### Testing performed at [address] [address] ALP [Catalytic activity/Vol] 175 U/L High 38-126 [facility] Comment on above: Performed By: #### A CBC #### Testing performed at [place] [address] [place] [address] ALT [Catalytic activity/Vol] 23 U/L Normal <35 [facility] Comment on above: Performed By: #### A CBC #### Testing performed at [place] [address] [place] [address] AST [Catalytic activity/Vol] 28 U/L Normal 14-36 [facility] Comment on above: Performed By: #### A CBC #### Testing performed at [place] [address] [place] [address] Bilirubin [Mass/Vol] 0.7 mg/dL Normal 0.2-1.3 [facility] Comment on above: Performed By: #### A CBC #### Testing performed at [address] [address] Calcium [Mass/Vol] 10.4 mg/dL High 8.4-10.2 [facility] Comment on above: Performed By: #### A CBC #### Testing performed at [address] [address] Chloride [Moles/Vol] 102 mmol/L Normal 98-107 [facility] Comment on above: Result Comment: Plea note: Triglyceride levels of 600mg/dL or higher may positively bias chloride results by approximately 2.1 mmol Performed By: #### A CBC #### Testing performed at [address] [address] CO2 [Moles/Vol] mmol/L Critically low 22-30 [facility] Comment on above: Result Comment: CALL ED TO AND READ BACK BY Chiki FERRARI 12.6.22 @[address] [place] [address] Performed By: #### A CBC #### Testing performed at [address] [address] Creatinine [Mass/Vol] 0.72 mg/dL Normal 0.7-1.2 [facility] Comment on above: Performed By: #### A CBC #### Testing performed at [address] [place] [address] EST. GFR, 109 ml/min/1.73sq.m [facility] Comment on above: Performed By: #### A CBC #### Testing performed at [address] [address] EST. GFR,Non 90 ml/min/1.73sq.m [facility] Comment on above: Performed By: #### A CBC #### Testing performed at [address] [place] [address] GFR Information Average GFR for 50-5 9 years old = 93. Normal [facility] Comment on above: Result Comment: Cigarette Inspector yaneth Kidney disease, GFR = <60. Kidney failure, GFR = <15. The GFR estimate is not adjusted for extreme body surface area or acute process, nor has it been validated for women or ethnic groups other than and . Performed By: #### A CBC #### Testing performed at [address] [address] Glucose [Mass/Vol] 428 mg/dL Critically high 70-100 [facility] Comment on above: Result Comment: NORMAL <100 mg/dL PREDIABETES 101-126 mg/dL DIABETES 126 mg/dL or higher CALLED TO AND READ BACK BY Chiki FERRARI 12.6.22 @[address] [place] [address] Performed By: #### A CBC #### Testing performed at [address] [address] Potassium [Moles/Vol] 4.7 mmol/L Normal 3.5-5.1 [facility] Comment on above: Performed By: #### A CBC #### Testing performed at [address] [place] [address] Protein [Mass/Vol] 9.3 g/dL High 6.3-8.2 [facility] Comment on above: Performed By: #### A CBC #### Testing performed at [address] [place] [address] Sodium [Moles/Vol] 131 mmol/L Low 137-145 [facility] Comment on above: Performed By: #### A CBC #### Testing performed at [address] [address] Urea nitrogen [Mass/Vol] 15 mg/dL Normal 7-20 [facility] Comment on above: Performed By: #### A CBC #### Testing performed at [address] [address] COMPREHENSIVE METABOLIC PANE Karthikeyan 06-21-2022 Albumin [Mass/Vol] 4.8 G/dl 3.5 - 5.0 G/dl [facility] Albumin/Globulin [Mass ratio] 1.1 {ratio} Low [facility] ALP [Catalytic activity/Vol] 175 U/L High [facility] ALT [Catalytic activity/Vol] 23 U/L NINF [facility] AST [Catalytic activity/Vol] 28 U/L [facility] Bilirubin [Mass/Vol] 0.7 mg/dL [facility] Calcium [Mass/Vol] 10.4 mg/dL High [facility] Chloride [Moles/Vol] 102 mmol/L [facility] Comment on above: Please note: Triglyc eride levels of 600mg/dL or higher may positively bias chloride results by approximately 2.1 mmol CO2 [Moles/Vol] Critically low [facility] Comment on above: CALLED TO AND READ B ACK BY Chiki FERRARI 06.21.22 @2341 [facility] Creatinine [Mass/Vol] 0.72 mg/dL [facility] GFR COMMENT Average GFR for 50-5 9 years old = 93. [facility] Comment on above: Chronic Kidney disea se, GFR = <60. Kidney failure, GFR = <15. The GFR estimate is not adjusted for extreme body surface area or acute process, nor has it been validated for women or ethnic groups other than and . GFR/1.73 sq M.predicted among blacks MDRD (S/P/Bld) [Vol rate/Area] 109 mL/min/{1.73_m2} ml/min/1.73 sq.m [facility] GFR/1.73 sq M.predicted among non-blacks MDRD (S/P/Bld) [Vol rate/Area] 90 mL/min/{1.73_m2} ml/min/1.73 sq.m [facility] Glucose post fast [Mass/Vol] 428 mg/dL Critically high [facility] Comment on above: NORMAL <100 mg/dL PREDIABETES 101-126 mg/dL DIABETES 126 mg/dL or higher CALLED TO AND READ BACK BY Chiki FERRARI 06.21.22 @1626 [facility] Interpretation and review of laboratory results Abnormal [facility] Potassium [Moles/Vol] 4.7 mmol/L [facility] Protein [Mass/Vol] 9.3 g/dL High [facility] Sodium [Moles/Vol] 131 mmol/L Low [facility] Urea nitrogen [Mass/Vol] 15 mg/dL [facility] ECG (SCANNED)Ordered By: Laura Mcdonough on 06-21-2022 [facility] GLUCOSE (POC DEVICE)on 06-21 GLUCOSE, POINT OF CARE 192 [facility] Interpretation and review of laboratory results Abnormal [facility] Operator [id number] [facility] GLUCOSE, POINT OF CARE 175 [facility] Interpretation and review of laboratory results Abnormal [facility] Operator [id number] [facility] GLUCOSE, POINT OF CARE 210 [facility] Interpretation and review of laboratory results Abnormal [facility] Ems Coordinator [id number] [facility] GLUCOSE, POINT OF CARE 280 [facility] Interpretation and review of laboratory results Abnormal [facility] Ems Coordinator [id number] [facility] GLUCOSE, POINT OF CARE 393 [facility] Interpretation and review of laboratory results Abnormal [facility] Operator [id number] [facility] GLUCOSE, POINT OF CARE 400 [facility] Interpretation and review of laboratory results Abnormal [facility] Operator [id number] [facility] INFLUENZA A AND B, PCRon FLUAV and FLUBV Ag IF Nom (Unsp spec) Negative NEGATIVE [facility] FLUBV Ag IA Ql (Unsp spec) Negative NEGATIVE [facility] Comment on above: TESTING PERFORMED BY ESPERANZA [facility] KETONES (BLOOD)on 06-21-2022 Beta hydroxybutyrate [Moles/Vol] 9.44 [facility] Interpretation and review of laboratory results Abnormal [facility] MAGNESIUMon 06-21-2022 Magnesium [Mass/Vol] 2.1 mg/dL Normal 1.6-2.3 [facility] Magnesium [Mass/Vol] 2.1 mg/dL [facility] NOVEL CORONAVIRUSon 06-21-20 22 NARRATIVE This test was perfor med using isothermal ESPERANZA and has been approved as Emergency Use Authorization (EUA) for the qualitative detection [id number] nucleic acid. Normal [facility] SARS-CoV-2 (COVID-19) RNA ESPERANZA+probe Ql (Unsp spec) Not detected Normal NOT DETECTED [facility] Comment on above: Result Comment: Nega [...] SOPHARYNGEALon 06-21-2022 NARRATIVE -1 This test was perfor med using isothermal ESPERANZA and has been approved as Emergency Use Authorization (EUA) for the qualitative detection [id number] nucleic acid. [facility] SARS-CoV-2 (COVID-19) RNA ESPERANZA+probe Ql (Unsp spec) Not detected NOT DETECTED [facility] Comment on above: Negative results do [...] patient is critically ill or clinically deteriorating. [facility] No Panel Informationon 06-21 [facility] POCT GLUCOSEon 06-21-2022 Glucose [Mass/Vol] 210 mg/dL High 70-100 [facility] [employer] [id number] Normal [facility] Glucose [Mass/Vol] 280 mg/dL High 70-100 [facility] [employer] Normal [facility] Glucose [Mass/Vol] 393 mg/dL High 70-100 [facility] [employer] [id number] Normal [facility] Glucose [Mass/Vol] 400 mg/dL High 70-100 [facility] [employer] [id number] Normal [facility] RAPID FLU Aon 06-21-2022 INFLUENZA A Negative Normal NEGATIVE [facility] INFLUENZA B Negative Normal NEGATIVE [facility] Comment on above: Result Comment: TEST ING PERFORMED BY [facility] RENAL FUNCTION PANELon 06-21 Albumin [Mass/Vol] 4.4 G/dl 3.5 - 5.0 G/dl [facility] Calcium [Mass/Vol] 9.7 mg/dL [facility] Chloride [Moles/Vol] 104 mmol/L [facility] Comment on above: Please note: Triglyc eride levels of 600mg/dL or higher may positively bias chloride results by approximately 2.1 mmol CO2 [Moles/Vol] Critically low [facility] Comment on above: CALLED TO AND READ B ACK BY ABBIE BEE IN ICU 06.21.2022 AT 19:52 TLA Creatinine [Mass/Vol] 0.66 mg/dL Low [facility] GFR COMMENT Average GFR for 50-5 9 years old = 93. [facility] Comment on above: Chronic Kidney disea se, GFR = <60. Kidney failure, GFR = <15. The GFR estimate is not adjusted for extreme body surface area or acute process, nor has it been validated for women or ethnic groups other than and . GFR/1.73 sq M.predicted among blacks MDRD (S/P/Bld) [Vol rate/Area] 120 mL/min/{1.73_m2} ml/min/1.73 sq.m [facility] GFR/1.73 sq M.predicted among non-blacks MDRD (S/P/Bld) [Vol rate/Area] 99 mL/min/{1.73_m2} ml/min/1.73 sq.m [facility] Glucose post fast [Mass/Vol] 369 mg/dL High [facility] Comment on above: NORMAL <100 mg/dL PREDIABETES 101-126 mg/dL DIABETES 126 mg/dL or higher Interpretation and review of laboratory results Abnormal [facility] Phosphate [Mass/Vol] 3.5 mg/dL [facility] Potassium [Moles/Vol] 4.2 mmol/L [facility] Sodium [Moles/Vol] 133 mmol/L Low [facility] Urea nitrogen [Mass/Vol] 16 mg/dL [facility] RENAL PANEL,FASTINGon 2021 ALBUMIN 4.4 G/dl Normal 3.5-5.0 [facility] Calcium [Mass/Vol] 9.7 mg/dL Normal 8.4-10.2 [facility] Chloride [Moles/Vol] 104 mmol/L Normal 98-107 [facility] Comment on above: Result Comment: Sandip collins note: Triglyceride levels of 600mg/dL or higher may positively bias chloride results by approximately 2.1 mmol CO2 [Moles/Vol] mmol/L Critically low 22-30 [facility] Comment on above: Result Comment: CALL ED TO AND READ BACK BY ABBIE BEE IN ICU 06.21.2022 AT 19:52 TLA Creatinine [Mass/Vol] 0.66 mg/dL Low 0.7-1.2 [facility] EST. GFR, 120 ml/min/1.73sq.m Normal [facility] EST. GFR,Non 99 ml/min/1.73sq.m Normal [facility] GFR Information Average GFR for 50-5 9 years old = 93. Normal [facility] Comment on above: Result Comment: Cigarette Inspector yaneth Kidney disease, GFR = <60. Kidney failure, GFR = <15. The GFR estimate is not adjusted for extreme body surface area or acute process, nor has it been validated for women or ethnic groups other than and . Glucose [Mass/Vol] 369 mg/dL High 70-100 [facility] Comment on above: Result Comment: NORMAL <100 mg/dL PREDIABETES 101-126 mg/dL DIABETES 126 mg/dL or higher PHOSPHOROUS 3.5 MG/DL Normal 2.5-4.5 [facility] Potassium [Moles/Vol] 4.2 mmol/L Normal 3.5-5.1 [facility] Sodium [Moles/Vol] 133 mmol/L Low 137-145 [facility] Urea nitrogen [Mass/Vol] 16 mg/dL Normal 7-20 [facility] TROPONIN I, HIGH SENSITIVITY on 06-21-2022 TROPONIN I, HIGH SENSITIVITY 9 pg/mL Normal 0-12 [facility] Comment on above: Result Comment: Indeterminant: >12 to 100 pg/mL female >20 to 100 pg/mL male Indicative of myocardial injury. Serial sampling is recommended, a change of greater than or equal to 20 pg/mL is indicative of acute coronary syndrome. TROPONIN I, HIGH SENSITIVITY 9 pg/mL 0 - 12 pg/mL [facility] Comment on above: Indeterminant: >12 to 100 pg/mL female >20 to 100 pg/mL male Indicative of myocardial injury. Serial sampling is recommended, a change of greater than or equal to 20 pg/mL is indicative of acute coronary syndrome. [facility] URINALYSIS, MACROon 06-21-20 22 Bilirubin Ql (U) SMALL Abnormal NEGATIVE [facility] Clarity (U) CLEAR CLEAR [facility] Color (U) YELLOW YELLOW [facility] Glucose Test strip (U) [Mass/Vol] 500 mg/dl Abnormal NEGATIVE [facility] Hemoglobin Ql (U) SMALL Abnormal NEGATIVE [facility] Interpretation and review of laboratory results Abnormal [facility] Ketones (U) [Mass/Vol] mg/dL Abnormal NEGATIVE mg/dl [facility] Leukocyte esterase Test strip Ql (U) Negative NEGATIVE [facility] Nitrite Ql (U) Negative NEGATIVE [facility] pH (U) 5.5 [pH] 5.0 - 7.0 [facility] Protein Ql (U) 100 mg/dl Abnormal NEGATIVE [facility] Specific gravity (U) [Rel density] >1.030 High 1.010 - 1.025 [facility] Urobilinogen (U) [Mass/Vol] 0.2 mg/dL [facility] URINE MACROSCOPICon 06-21-20 22 Bilirubin Ql (U) SMALL Abnormal NEGATIVE [facility] Clarity (U) CLEAR Normal CLEAR [facility] Color (U) YELLOW Normal YELLOW [facility] Glucose Ql (U) 500 mg/dl Abnormal NEGATIVE [facility] pH (U) 5.5 [pH] Normal 5.0-7.0 [facility] Protein (U) [Mass/Vol] 100 mg/dL Abnormal NEGATIVE [facility] URINE HEMOGLOBIN SMALL Abnormal NEGATIVE [facility] URINE KETONE >160 Abnormal NEGATIVE [facility] URINE LEUKOTEST Negative Normal NEGATIVE [facility] URINE NITRATES Negative Normal NEGATIVE [facility] URINE SPEC GRAVITY >1.030 High 1.010-1.025 [facility] Urobilinogen Qn (U) 0.2 {Verenice'U}/dL Normal 0.2-1.0 [facility] URINE MICROSCOPICon 06-21-20 22 Bacteria LM.HPF (Urine sed) [#/Area] Negative Normal NEGATIVE [facility] CASTS NONE Normal NONE [facility] CRYSTAL NONE Normal NONE [facility] Epithelial cells LM Ql (Urine sed) 1 TO 5 Normal [facility] Mucus Ql (Urine sed) Negative Normal NEGATIVE [facility] URINE COMMENT CULTURE CRITERIA NOT MET, NO CULTURE PERFORMED. Normal [facility] URINE RBC'S 1 TO 5 Normal NEGATIVE [facility] URINE WBC'S 1 TO 5 Normal NEGATIVE [facility] Bacteria LM.HPF (Urine sed) [#/Area] Negative NEGATIVE [facility] Casts LM.LPF (Urine sed) [#/Area] NONE NONE /LPF [facility] Crystals LM Nom (Urine sed) NONE NONE [facility] Epithelial cells LM Ql (Urine sed) 1 TO 5 /HPF [facility] Mucus Ql (Urine sed) Negative NEGATIVE [facility] RBC LM.HPF (Urine sed) [#/Area] 1 TO 5 NEGATIVE /HPF [facility] Urine sediment comments LM Brian (Urine sed) CULTURE CRITERIA NOT MET, NO CULTURE PERFORMED. [facility] WBC LM.HPF (Urine sed) [#/Area] 1 TO 5 NEGATIVE /HPF [facility] VENOUS BLOOD GASon 2 BASE DEFICIT 21.3 mEq/L High 0-2 [facility] cHCO3 (P,ST)C 6.5 mEq/L Low 22-26 [facility] ctHb 17.1 g/dl Normal [facility] FCOHb 0.6 % Normal [facility] FMetHb 0.0 % Normal [facility] FO2Hb 68.0 % Normal [facility] pCO2, venous or cap 21 mmHg Low 41-51 [facility] pH,venous or cap 7.10 Critically low 7.31-7.41 [facility] Comment on above: Result Comment: CALL ED TO AND READ BACK BY Lonnie CHO 12.01.05 @743[facility] pO2,venous or cap 39 mmHg Normal 35-42 [facility] sO2,venous or cap 68.4 % Normal 68-77 [facility] [place] CONTINUOUS GLUCOSE MONITO RING ANALYSIS I&Henrique 04-07-2022 Manish Shea MD 04/07/2022 3:20 PM CGM download shows 0% of blood sugars at target range, 2% high, 98% very high, GMI = 12.1%. Hyperglycemia at all timeframes. Lowest blood sugars approximately 200 mg/dL. This CGM download, we discussed insulin therapy versus bariatric surgery. [facility] Manish Shea MD - 04/07/2022 2:15 PM EDT CGM download shows 0% of blood sugars at target range, 2% high, 98% very high, GMI = 12.1%. Hyperglycemia at all timeframes. Lowest blood sugars approximately 200 mg/dL. This CGM download, we discussed insulin therapy versus bariatric surgery. [facility] [place] CONTINUOUS GLUCOSE MONITO RING ANALYSIS I&ROrdered By: Maylin Stone on 04-07-2022 [facility] C-Peptideon 03-29-2022 C-Peptide 2.4 ng/mL 1.1 - 4.4 ng/mL [facility] Immedia CBC with Auto Differentialon 03-29-2022 Absolute Eos # 0.10 [facility] [employer] Absolute Lymph # 1.40 [facility]deme | [employer]pay Absolute Phillips # 0.40 [facility] | [employer] Basophils (Bld) [#/Vol] 0.00 10*3/uL [facility] Basophils/100 WBC (Bld) 1 % 0 - 2 % [facility] Differential Type YES [facility] Eosinophils/100 WBC (Bld) 2 % 0 - 5 % [facility] Hematocrit (Bld) [Volume fraction] 44.7 % 36 - 46 % [facility] Hemoglobin (Bld) [Mass/Vol] 14.7 g/dL 12 - 16 g/dL [facility] Interpretation and review of laboratory results Abnormal [facility] Lymphocytes/100 WBC (Bld) 29 % 15 - 40 % [facility] MCH (RBC) [Entitic mass] 28.0 pg 26 - 34 pg [facility] MCHC (RBC) [Mass/Vol] 33.0 g/dL 31 - 3 7 g/dL [facility] MCV (RBC) [Entitic vol] 85.1 fL 80 - 100 fL [facility] Monocytes/100 WBC (Bld) 9 % High 4 - 8 % [facility] Platelet distribution width (Bld) [Ratio] 13.9 % 12.1 - 15.2 % [facility] Platelets (Bld) [#/Vol] 291 10*3/uL [facility] RBC (Bld) [#/Vol] 5.25 10*6/uL High 4 - 5.2 m/uL [facility] Segmented neutrophils/100 WBC (Bld) 59 % 47 - 75 % [facility] Segs Absolute 2.80 [facility] WBC (Bld) [#/Vol] 4.7 10*3/uL [facility] Comprehensive Metabolic Pane karthikeyan 03-29-2022 Albumin [Mass/Vol] 4.1 g/dL 3.5 - 5.2 g/dL [facility] ALP (Bld) [Catalytic activity/Vol] 87 U/L 35 - 104 U/L [facility] ALT [Catalytic activity/Vol] 44 U/L High 5 - 33 U/L [facility] Anion gap [Moles/Vol] 12 mmol/L 9 - 17 mmol/L [facility] AST [Catalytic activity/Vol] 23 U/L NINF - 32 U/L [facility] Bilirubin [Mass/Vol] 0.2 mg/dL Low 0.3 - 1 .2 mg/dL [facility] Calcium [Mass/Vol] 9.8 mg/dL 8.6 - 10. 4 mg/dL [facility] Chloride [Moles/Vol] 95 mmol/L Low 98 - 10 7 mmol/L [facility] CO2 [Moles/Vol] 29 mmol/L 20 - 31 mmol/L [facility] Creatinine [Mass/Vol] mg/dL Low 0.5 - 0.9 mg/dL [facility] Free PSA/Total PSA [Mass fraction] 6.9 g/dL 6.4 - 8.3 g/dL [facility] GFR Can not be calculated 60 - PINF mL/min [facility] GFR Non- Can not be calculated 60 - PINF mL/min [facility] GFR/1.73 sq M.predicted MDRD (S/P/Bld) [Vol rate/Area] [facility] Comment on above: Average GFR for 50-5 9 years old: 93 mL/min/1.73sq m Chronic Kidney Disease: <60 mL/min/1.73sq m Kidney failure: <15 mL/min/1.73sq m eGFR calculated using average adult body mass. Additional eGFR calculator available at: http://www.UpTo/multiple_crcl_2012.htm Glucose [Mass/Vol] 383 mg/dL High 70 - 99 mg/dL [facility] Interpretation and review of laboratory results Abnormal [facility] Potassium [Moles/Vol] 4.9 mmol/L 3.7 - 5.3 mmol/L [facility] Sodium [Moles/Vol] 136 mmol/L 135 - 144 mmol/L [facility] Urea nitrogen (BldV) [Mass/Vol] 10 mg/dL 6 - 20 mg/dL [facility] Urea nitrogen/Creatinine (Bld) [Mass ratio] Result cannot be calculated, Creatinine below linear range. 9 - 20 [facility] Hemoglobin A1Con 03-29-2022 Glucose [Mass/Vol] 306 mg/dL [facility] Comment on above: The ADA and AACC rec ommend providing the estimated average glucose result to permit better patient understanding of their HBA1c result. HbA1c (Bld) [Mass fraction] 12.3 % High 4 - 6 % [facility] [employer] Interpretation and review of laboratory results Abnormal [facility]gramSELECT [facility] Insulin, totalon 03-29-2022 Insulin 7.9 mU/L [facility] Insulin Comment [facility]deme | [employer] Insulin Reference Range: [facility] [email or web address] Comment on above: Fastin.6-24.9 30 min: 20-112 60 min: 29-88 90 min: 26-84 120 min: 22-79 LDL Cholesterol, Directon Cholesterol in LDL [Mass/Vol] 235 mg/dL High NINF - 100 mg/dL [facility] Interpretation and review of laboratory results Abnormal [facility] [employer] [facility] Lipid Panelon 03-29-2022 Cholesterol [Mass/Vol] 360 mg/dL High NINF - 200 mg/dL [facility] [email or web address] Comment on above: Cholesterol Guidelines: <200 Desirable 200-240 Borderline >240 Undesirable Cholesterol in HDL [Mass/Vol] 46 mg/dL 40 - PINF mg/dL [facility] [employer] Comment on above: HDL Guidelines: <40 Undesirable 40-59 Borderline >59 Desirable Cholesterol.total/Cho lesterol in HDL [Mass ratio] 7.8 {ratio} High NINF - 5 [facility] [employer] [facility] Interpretation and review of laboratory results Abnormal [facility] [employer] [facility] LDL Cholesterol 0 - 130 mg/dL [facility] [email or web address] Comment on above: Calculation not sonia d for Triglyceride value greater than 400 mg/dL. Direct LDL reflexed LDL Guidelines: <100 Desirable 100-129 Near to/above Desirable 130-159 Borderline >159 Undesirable Direct (measured) LDL and calculated LDL are not interchangeable tests. Triglyceride [Mass/Vol] 475 mg/dL High NINF - 150 mg/dL [facility] [employer] Comment on above: Triglyceride Guidelines: <150 Desirable 150-199 Borderline 200-499 High >499 Very high Based on AHA Guidelines for fasting triglyceride, April 2012. [facility] No Panel Informationon 03-29 [facility] [email or web address] Patient Fasting?on 2 Patient Fasting? YES [facility]N [facility] [place] CONTINUOUS GLUCOSE MONITO RING ANALYSIS I&Henrique 02-03-2022 Manish Shea MD 02/03/2022 4:05 PM CGM download her showing 0% of blood sugars at target range, 6% high, 94% very high, GMI = 11.3%, no hypoglycemia. There is hyperglycemia at all timeframes. Small response to medications last visit, we will increased doses of GLP-1 and sulfonylurea. Insulin therapy recommended, but declined by patient. [facility] [place] CONTINUOUS GLUCOSE MONITO RING ANALYSIS I&Henrique 12-09-2021 Manish Shea MD 12/09/2021 3:17 PM CGM download shows 0% of blood sugars at target, 1% high, 99% very high. Based on CGM download, we need to intensify pharmacologic therapy. She is already on a low-carb diet. [facility] Manish Shea MD - 12/09/2021 2:30 PM EDT CGM download shows 0% of blood sugars at target, 1% high, 99% very high. Based on CGM download, we need to intensify pharmacologic therapy. She is already on a low-carb diet. [facility] [place] CONTINUOUS GLUCOSE MONITO RING ANALYSIS I&ROrdered By: Maylin Stone on 12-09-2021 [facility] CBCon 08-11-2021 Hematocrit (Bld) [Volume fraction] 44.9 % 36 - 46 % [facility] Hemoglobin.gastrointe stinal spec 1 Ql (Stl) 15.0 g/dL 12.0 - 16.0 g/dL [facility] Interpretation and review of laboratory results Abnormal [facility] MCH (RBC) [Entitic mass] 28.4 pg 26 - 34 pg [facility] MCHC (RBC) [Mass/Vol] 33.5 g/dL 31 - 3 7 g/dL [facility] MCV (RBC) [Entitic vol] 84.9 fL 80 - 100 fL [facility] NRBC Automated NOT REPORTED per 100 WBC [facility] ealt Platelet distribution width (Bld) [Ratio] 12.9 % 12.1 - 15.2 % [facility] Platelet mean volume (Bld) [Entitic vol] NOT REPORTED 6.0 - 12.0 fL [facility] Platelets (Bld) [#/Vol] 369 10*3/uL [facility] RBC (Bld) [#/Vol] 5.29 10*6/uL High 4.0 - 5.2 m/uL [facility] WBC (Bld) [#/Vol] 5.6 10*3/uL [facility] Comprehensive Metabolic Pane karthikeyan 08-11-2021 Albumin [Mass/Vol] 4.1 g/dL 3.5 - 5.2 g/dL [facility] Albumin/Globulin Ratio NOT REPORTED [facility] ALP (Bld) [Catalytic activity/Vol] 102 U/L 35 - 104 U/L [facility] ALT [Catalytic activity/Vol] 24 U/L 5 - 33 U/L [facility] Anion gap [Moles/Vol] 14 mmol/L 9 - 17 mmol/L [facility] AST [Catalytic activity/Vol] 16 U/L <32 [facility] Bilirubin [Mass/Vol] 0.20 mg/dL Low 0.30 - 1.20 mg/dL [facility] Calcium [Mass/Vol] 9.6 mg/dL 8.6 - 10. 4 mg/dL [facility] Chloride [Moles/Vol] 97 mmol/L Low 98 - 10 7 mmol/L [facility] CO2 [Moles/Vol] 23 mmol/L 20 - 31 mmol/L [facility] Creatinine [Mass/Vol] mg/dL Low 0.50 - 0.90 mg/dL [facility] Free PSA/Total PSA [Mass fraction] 6.9 g/dL 6.4 - 8.3 g/dL [facility] GFR Can not be calculated >60 mL/min [facility] GFR Non- Can not be calculated >60 mL/min [facility] th GFR/1.73 sq M.predicted MDRD (S/P/Bld) [Vol rate/Area] [facility] Comment on above: Average GFR for 50-5 9 years old: 93 mL/min/1.73sq m Chronic Kidney Disease: <60 mL/min/1.73sq m Kidney failure: <15 mL/min/1.73sq m eGFR calculated using average adult body mass. Additional eGFR calculator available at: http://www.[employer].BetterCloud/multiple_crcl_2012.htm GFR/1.73 sq M.predicted MDRD (S/P/Bld) [Vol rate/Area] NOT REPORTED [employer] Glucose [Mass/Vol] 386 mg/dL Critically high 70 - 9 9 mg/dL [facility] Interpretation and review of laboratory results Abnormal [facility] Potassium [Moles/Vol] 4.5 mmol/L 3.7 - 5.3 mmol/L [employer] Sodium [Moles/Vol] 134 mmol/L Low 135 - 144 mmol/L [employer] Urea nitrogen (BldV) [Mass/Vol] 14 mg/dL 6 - 20 mg/dL [employer] Urea nitrogen/Creatinine (Bld) [Mass ratio] Result cannot be calculated, Creatinine below linear range. [place] Microalbumin, Uron 2 Albumin/Creatinine DL <= 20 mg/L (24H U) [Mass ratio] 37 mg/L High <21 [employer] Albumin/Creatinine DL <= 20 mg/L (U) [Ratio] 30 High <25 mcg/mg creat [employer] Creatinine [Mass/Vol] 124.8 mg/dL 28.0 - 217.0 mg/dL [employer] Interpretation and review of laboratory results Abnormal [place] Patient Fasting?on 2 Patient Fasting? yes [facility] alth [employer] Basic Metabolic PanelOrdered By: Roverto Barbour on 04-16-2021 Anion gap [Moles/Vol] 10 mmol/L 9 - 17 mmol/L [employer] Work Phone: Calcium [Mass/Vol] 9.4 mg/dL 8.6 - 10. 4 mg/dL [employer] Work Phone: Chloride [Moles/Vol] 103 mmol/L 98 - 10 7 mmol/L [employer] Work Phone: CO2 [Moles/Vol] 25 mmol/L 20 - 31 mmol/L [employer] Phone: Creatinine [Mass/Vol] 0.44 mg/dL Low 0.50 - 0.90 mg/dL [employer] Work Phone: GFR >60 >60 mL/min [facility] Phone: GFR Non- >60 >60 mL/min [employer]: GFR/1.73 sq M.predicted MDRD (S/P/Bld) [Vol rate/Area] [employer]: Comment on above: Average GFR for 50-5 9 years old: 93 mL/min/1.73sq m Chronic Kidney Disease: <60 mL/min/1.73sq m Kidney failure: <15 mL/min/1.73sq m eGFR calculated using average adult body mass. Additional eGFR calculator available at: http://www.UpTo/CommonBond_crcl_2012.htm GFR/1.73 sq M.predicted MDRD (S/P/Bld) [Vol rate/Area] NOT REPORTED [employer]: Glucose [Mass/Vol] 303 mg/dL High 70 - 99 mg/dL [employer]: Interpretation and review of laboratory results Abnormal [employer]: Potassium [Moles/Vol] 3.5 mmol/L Low 3.7 - 5.3 mmol/L [employer]: Sodium [Moles/Vol] 138 mmol/L 135 - 144 mmol/L [employer]: Urea nitrogen (BldV) [Mass/Vol] 8 mg/dL 6 - 20 mg/dL [employer]: Urea nitrogen/Creatinine (Bld) [Mass ratio] 18 [employer] Phone: [employer] Phone: Glucose, Whole BloodOrdered By: Roverto Barbour on 04-16-2021 Glucose [Mass/Vol] 221 mg/dL High 65 - 99 mg/dL [employer]: Interpretation and review of laboratory results Abnormal [employer]: [employer]: Basic Metabolic PanelOrdered By: Roverto Barbour on 04-15-2021 Anion gap [Moles/Vol] 10 mmol/L 9 - 17 mmol/L [employer]: Calcium [Mass/Vol] 9.3 mg/dL 8.6 - 10. 4 mg/dL [employer]: Chloride [Moles/Vol] 106 mmol/L 98 - 10 7 mmol/L [employer]: CO2 [Moles/Vol] 19 mmol/L Low 20 - 31 mmol/L [employer]: Creatinine [Mass/Vol] 0.45 mg/dL Low 0.50 - 0.90 mg/dL [employer]: GFR >60 >60 mL/min [place] Phone: GFR Non- >60 >60 mL/min [employer]: GFR/1.73 sq M.predicted MDRD (S/P/Bld) [Vol rate/Area] [employer] Phone: Comment on above: Average GFR for 50-5 9 years old: 93 mL/min/1.73sq m Chronic Kidney Disease: <60 mL/min/1.73sq m Kidney failure: <15 mL/min/1.73sq m eGFR calculated using average adult body mass. Additional eGFR calculator available at: http://www.[employer].BetterCloud/multiple_crcl_2012.htm GFR/1.73 sq M.predicted MDRD (S/P/Bld) [Vol rate/Area] NOT REPORTED [employer]: Glucose [Mass/Vol] 261 mg/dL High 70 - 99 mg/dL [employer]: Potassium [Moles/Vol] 3.4 mmol/L Low 3.7 - 5.3 mmol/L [employer]: Sodium [Moles/Vol] 135 mmol/L 135 - 144 mmol/L [employer]: Urea nitrogen (BldV) [Mass/Vol] 7 mg/dL 6 - 20 mg/dL [employer]: Urea nitrogen/Creatinine (Bld) [Mass ratio] 16 [employer]: Beta-HydroxybuterateOrdered By: Roverto Barbour on 04-15-2021 Beta-Hydroxybutyrate 1.45 mmol/L High 0.02 - 0.27 mmol/L [employer]: ECHO Complete 2D W Doppler W ColorOrdered By: Roverto Barbour on 04-15-[address] [facility] Transthoracic Echocardiography Report (TTE) Patient Name CARLOS BRENNAN Date of Study 04/14/2021 L Date of 1970 Gender Female Age 51 year(s) Race Room Number 0263 Height: 65 inch, 165.1 cm Corporate ID [id number] Weight: 177 pounds, 80.3 kg # Patient Acct [id number] BSA: 1.88 m^2 BMI: 29.46 kg/m^2 # MR # [id number] [employer] Debra Steiner, RT Interpreting Physician Jori Rodriguez Fellow Referring Nurse Practitioner Interpreting Referring Physician Roverto Barbour Type of Study TTE procedure:2D Echocardiogram, M-Mode, Doppler, Color Doppler. Procedure Date Date: 04/14/2021 Start: 08:44 AM Study Location: [facility] Indications:Heart murmur and Abnormal ECG. Patient [...] Would repeat echo in 1 year. Signature ---- ---- ---- ---- FINDINGS Left Atrium Left atrium is at [...] Peak Gradient: 5.6 mmHg Peak TR Gradient: 26.03540 mmHg Estimated RA Pressure: 5 mmHg Estimated PASP: 31.72 mmHg Diastology / Tissue Doppler Septal Wall E' velocity:0.06 m/s Lateral Wall E' velocity:0.06 m/s Lateral Wall E/E':14.77 [employer] Work Phone: Temo, pn Incoming Cardio Results From Cpacs/Ge - 04/15/2021 6:13 AM EDT [facility] Transthoracic Echocardiography Report (TTE) Patient Name CARLOS BRENNAN Date of Study 04/14/2021 L Date of 1970 Gender Female Age 51 year(s) Race Room Number 0263 Height: 65 inch, 165.1 cm Corporate ID [id number] Weight: 177 pounds, 80.3 kg # Patient Acct [id number] BSA: 1.88 m^2 BMI: 29.46 kg/m^2 # MR # [id number] [employer] RT Soren Interpreting Physician Jori Rodriguez Fellow Referring Nurse Practitioner Interpreting Referring Physician Roverto Barbour Type of Study TTE procedure:2D Echocardiogram, M-Mode, Doppler, Color Doppler. Procedure Date Date: 04/14/2021 Start: 08:44 AM Study Location: [facility] Indications:Heart murmur and Abnormal ECG. Patient [...] Would repeat echo in 1 year. Signature --- - --- - --- - --- - FINDINGS Left Atrium Left atrium is [...] Peak Gradient: 5.6 mmHg Peak TR Gradient: 26.08986 mmHg Estimated RA Pressure: 5 mmHg Estimated PASP: 31.72 mmHg Diastology / Tissue Doppler Septal Wall E' velocity:0.06 m/s Lateral Wall E' velocity:0.06 m/s Lateral Wall E/E':14.77 [employer] Phone: [employer] Phone: Glucose, Whole BloodOrdered By: Roverto Barbour on 04-15-2021 Glucose [Mass/Vol] 309 mg/dL High 65 - 99 mg/dL [employer]: Interpretation and review of laboratory results Abnormal [employer]: [employer] Phone: Glucose [Mass/Vol] 247 mg/dL High 65 - 99 mg/dL [employer]: Interpretation and review of laboratory results Abnormal Backand Phone: Backand Phone: Glucose [Mass/Vol] 262 mg/dL High 65 - 99 mg/dL Backand Phone: Interpretation and review of laboratory results Abnormal Backand Phone: [employer] Work Phone: Glucose [Mass/Vol] 306 mg/dL High 65 - 99 mg/dL Backand Phone: Interpretation and review of laboratory results Abnormal Backand Phone: Backand Phone: Hemoglobin [id number] By: Juan Jose ferrer Back on 04-15-2021 Glucose [Mass/Vol] 395 mg/dL Backand Phone: Comment on above: The ADA and AACC rec ommend providing the estimated average glucose result to permit better patient understanding of their HBA1c result. HbA1c (Bld) [Mass fraction] 15.4 % High 4.0 - 6.0 % Backand Phone: Interpretation and review of laboratory results Abnormal Backand Phone: Backand Phone: MagnesiumOrdered By: Roverto smithk on 04-15-2021 Magnesium [Mass/Vol] 1.8 mg/dL 1.6 - 2 .6 mg/dL Backand Phone: No Panel InformationOrdered By: Roverto Back on 04-15-2021 Interpretation and review of laboratory results Abnormal Backand Phone: Backand Phone: PhosphorusOrdered By: Roverto Back on 04-15-2021 Phosphate [Mass/Vol] 2.4 mg/dL Low 2.6 - 4 .5 mg/dL Backand Phone: Basic Metabolic PanelOrdered By: Roverto Back on 04-14-2021 Anion gap [Moles/Vol] 11 mmol/L 9 - 17 mmol/L Backand Phone: Calcium [Mass/Vol] 9.2 mg/dL 8.6 - 10. 4 mg/dL Backand Phone: Chloride [Moles/Vol] 104 mmol/L 98 - 10 7 mmol/L Backand Phone: CO2 [Moles/Vol] 17 mmol/L Low 20 - 31 mmol/L Backand Phone: Creatinine [Mass/Vol] 0.53 mg/dL 0.50 - 0.90 mg/dL Backand Phone: GFR >60 >60 mL/min [facility] Phone: GFR Non- >60 >60 mL/min Backand Phone: GFR/1.73 sq M.predicted MDRD (S/P/Bld) [Vol rate/Area] Backand Phone: Comment on above: Average GFR for 50-5 9 years old: 93 mL/min/1.73sq m Chronic Kidney Disease: <60 mL/min/1.73sq m Kidney failure: <15 mL/min/1.73sq m eGFR calculated using average adult body mass. Additional eGFR calculator available at: http://www.[employer].BetterCloud/multiple_crcl_2012.htm GFR/1.73 sq M.predicted MDRD (S/P/Bld) [Vol rate/Area] NOT REPORTED Backand Phone: Glucose [Mass/Vol] 243 mg/dL High 70 - 99 mg/dL Backand Phone: Potassium [Moles/Vol] 3.2 mmol/L Low 3.7 - 5.3 mmol/L Backand Phone: Sodium [Moles/Vol] 132 mmol/L Low 135 - 144 mmol/L Backand Phone: Urea nitrogen (BldV) [Mass/Vol] 9 mg/dL 6 - 20 mg/dL Backand Phone: Urea nitrogen/Creatinine (Bld) [Mass ratio] 17 Backand Phone: Anion gap [Moles/Vol] 12 mmol/L 9 - 17 mmol/L Backand Phone: Calcium [Mass/Vol] 9.8 mg/dL 8.6 - 10. 4 mg/dL Backand Phone: Chloride [Moles/Vol] 103 mmol/L 98 - 10 7 mmol/L Backand Phone: CO2 [Moles/Vol] 17 mmol/L Low 20 - 31 mmol/L Backand Phone: Creatinine [Mass/Vol] 0.61 mg/dL 0.50 - 0.90 mg/dL Backand Phone: GFR >60 >60 mL/min [facility] Phone: GFR Non- >60 >60 mL/min Backand Phone: GFR/1.73 sq M.predicted MDRD (S/P/Bld) [Vol rate/Area] Backand Phone: Comment on above: Average GFR for 50-5 9 years old: 93 mL/min/1.73sq m Chronic Kidney Disease: <60 mL/min/1.73sq m Kidney failure: <15 mL/min/1.73sq m eGFR calculated using average adult body mass. Additional eGFR calculator available at: http://www.[employer].BetterCloud/multiple_crcl_2012.htm GFR/1.73 sq M.predicted MDRD (S/P/Bld) [Vol rate/Area] NOT REPORTED Backand Phone: Glucose [Mass/Vol] 158 mg/dL High 70 - 99 mg/dL Backand Phone: Potassium [Moles/Vol] 3.2 mmol/L Low 3.7 - 5.3 mmol/L Backand Phone: Sodium [Moles/Vol] 132 mmol/L Low 135 - 144 mmol/L Backand Phone: Urea nitrogen (BldV) [Mass/Vol] 12 mg/dL 6 - 20 mg/dL Backand Phone: Urea nitrogen/Creatinine (Bld) [Mass ratio] 20 Backand Phone: Anion gap [Moles/Vol] 10 mmol/L 9 - 17 mmol/L Backand Phone: Calcium [Mass/Vol] 9.0 mg/dL 8.6 - 10. 4 mg/dL Backand Phone: Chloride [Moles/Vol] 105 mmol/L 98 - 10 7 mmol/L Backand Phone: CO2 [Moles/Vol] 17 mmol/L Low 20 - 31 mmol/L Backand Phone: Creatinine [Mass/Vol] 0.6 mg/dL 0.50 - 0.90 mg/dL Backand Phone: GFR >60 >60 mL/min [facility] Phone: GFR Non- >60 >60 mL/min Backand Phone: GFR/1.73 sq M.predicted MDRD (S/P/Bld) [Vol rate/Area] Backand Phone: Comment on above: Average GFR for 50-5 9 years old: 93 mL/min/1.73sq m Chronic Kidney Disease: <60 mL/min/1.73sq m Kidney failure: <15 mL/min/1.73sq m eGFR calculated using average adult body mass. Additional eGFR calculator available at: http://www.[employer]BetterCloud/multiple_crcl_2012.htm GFR/1.73 sq M.predicted MDRD (S/P/Bld) [Vol rate/Area] NOT REPORTED Backand Phone: Glucose [Mass/Vol] 254 mg/dL High 70 - 99 mg/dL Backand Phone: Potassium [Moles/Vol] 2.9 mmol/L Critically low 3.7 - 5.3 mmol/L Backand Phone: Sodium [Moles/Vol] 132 mmol/L Low 135 - 144 mmol/L Backand Phone: Urea nitrogen (BldV) [Mass/Vol] 10 mg/dL 6 - 20 mg/dL Backand Phone: Urea nitrogen/Creatinine (Bld) [Mass ratio] 17 Backand Phone: Anion gap [Moles/Vol] 11 mmol/L 9 - 17 mmol/L Backand Phone: Calcium [Mass/Vol] 8.8 mg/dL 8.6 - 10. 4 mg/dL Backand Phone: Chloride [Moles/Vol] 105 mmol/L 98 - 10 7 mmol/L Backand Phone: CO2 [Moles/Vol] 16 mmol/L Low 20 - 31 mmol/L Backand Phone: Creatinine [Mass/Vol] 0.51 mg/dL 0.50 - 0.90 mg/dL Backand Phone: GFR >60 >60 mL/min [facility] Phone: GFR Non- >60 >60 mL/min Backand Phone: GFR/1.73 sq M.predicted MDRD (S/P/Bld) [Vol rate/Area] Backand Phone: Comment on above: Average GFR for 50-5 9 years old: 93 mL/min/1.73sq m Chronic Kidney Disease: <60 mL/min/1.73sq m Kidney failure: <15 mL/min/1.73sq m eGFR calculated using average adult body mass. Additional eGFR calculator available at: http://www.UpTo/multiple_crcl_2012.htm GFR/1.73 sq M.predicted MDRD (S/P/Bld) [Vol rate/Area] NOT REPORTED Backand Phone: Glucose [Mass/Vol] 215 mg/dL High 70 - 99 mg/dL Backand Phone: Potassium [Moles/Vol] 3.2 mmol/L Low 3.7 - 5.3 mmol/L Backand Phone: Sodium [Moles/Vol] 132 mmol/L Low 135 - 144 mmol/L Backand Phone: Urea nitrogen (BldV) [Mass/Vol] 11 mg/dL 6 - 20 mg/dL Backand Phone: Urea nitrogen/Creatinine (Bld) [Mass ratio] 22 High Backand Phone: Anion gap [Moles/Vol] 17 mmol/L 9 - 17 mmol/L Backand Phone: Calcium [Mass/Vol] 8.9 mg/dL 8.6 - 10. 4 mg/dL Backand Phone: Chloride [Moles/Vol] 105 mmol/L 98 - 10 7 mmol/L Backand Phone: CO2 [Moles/Vol] 11 mmol/L Low 20 - 31 mmol/L Backand Phone: Creatinine [Mass/Vol] 0.56 mg/dL 0.50 - 0.90 mg/dL Backand Phone: GFR >60 >60 mL/min [facility] Phone: GFR Non- >60 >60 mL/min Backand Phone: GFR/1.73 sq M.predicted MDRD (S/P/Bld) [Vol rate/Area] Backand Phone: Comment on above: Average GFR for 50-5 9 years old: 93 mL/min/1.73sq m Chronic Kidney Disease: <60 mL/min/1.73sq m Kidney failure: <15 mL/min/1.73sq m eGFR calculated using average adult body mass. Additional eGFR calculator available at: http://www.UpTo/CommonBond_crcl_2012.htm GFR/1.73 sq M.predicted MDRD (S/P/Bld) [Vol rate/Area] NOT REPORTED Backand Phone: Glucose [Mass/Vol] 207 mg/dL High 70 - 99 mg/dL Backand Phone: Potassium [Moles/Vol] 3.2 mmol/L Low 3.7 - 5.3 mmol/L Backand Phone: Sodium [Moles/Vol] 133 mmol/L Low 135 - 144 mmol/L Back[employer] Phone: Urea nitrogen (BldV) [Mass/Vol] 13 mg/dL 6 - 20 mg/dL Backand Phone: Urea nitrogen/Creatinine (Bld) [Mass ratio] 23 High Backand Phone: Beta-HydroxybuterateOrdered By: Roverto Back on 04-14-2021 Beta-Hydroxybutyrate 1.58 mmol/L High 0.02 - 0.27 mmol/L Backand Phone: Beta-HydroxybutyrateOrdered By: Roverto Back on 04-14-2021 Beta-Hydroxybutyrate 0.64 mmol/L High 0.02 - 0.27 mmol/L [employer] Work Phone: Beta-Hydroxybutyrate 1.21 mmol/L High 0.02 - 0.27 mmol/L [employer] Work Phone: Interpretation and review of laboratory results Abnormal [email or web address] Work Phone: [employer] Work Phone: CBC auto differentialOrdered By: Roverto Barbour on 04-14-2021 Absolute Eos # 0.00 [employer] Work Phone: Absolute Immature Granulocyte NOT REPORTED [email or web address] Work Phone: Absolute Lymph # 1.40 [employer] [facility] Work Phone: Absolute Phillips # 1.10 High [facility] Work Phone: Basophils (Bld) [#/Vol] 0.00 10*3/uL [employer] Work Phone: Basophils/100 WBC (Bld) 0 % 0 - 2 % [employer] Work Phone: Differential Type YES [facility] Work Phone: Eosinophils/100 WBC (Bld) 0 % 0 - 5 % [employer] Work Phone: Hematocrit (Bld) [Volume fraction] 39.6 % 36 - 46 % [employer] Work Phone: Hemoglobin.gastrointe stinal spec 1 Ql (Stl) 13.6 g/dL 12.0 - 16.0 g/dL [employer] Work Phone: Immature Granulocytes NOT REPORTED 0 % [email or web address] Work Phone: Interpretation and review of laboratory results Abnormal [email or web address] Work Phone: Lymphocytes/100 WBC (Bld) 18 % 15 - 40 % [email or web address] Work Phone: MCH (RBC) [Entitic mass] 30.4 pg 26 - 34 pg [employer] Work Phone: MCHC (RBC) [Mass/Vol] 34.4 g/dL 31 - 3 7 g/dL [employer] Work Phone: MCV (RBC) [Entitic vol] 88.4 fL 80 - 100 fL [employer] Work Phone: Monocytes/100 WBC (Bld) 13 % High 4 - 8 % [employer] Work Phone: NRBC Automated NOT REPORTED per 100 WBC [facility] Work Phone: Platelet distribution width (Bld) [Ratio] 13.4 % 12.1 - 15.2 % [employer] Work Phone: Platelet Estimate NOT REPORTED [employer] Phone: Platelet mean volume (Bld) [Entitic vol] NOT REPORTED 6.0 - 12.0 fL [employer] Work Phone: Platelets (Bld) [#/Vol] 285 10*3/uL [employer] Work Phone: RBC (Bld) [#/Vol] 4.48 10*6/uL 4.0 - 5.2 m/uL [employer] Work Phone: RBC (Bld) [#/Vol] NOT REPORTED [employer] Phone: Segmented neutrophils/100 WBC (Bld) 69 % 47 - 75 % [employer] Work Phone: Segs Absolute 5.70 [employer] Work Phone: WBC (Bld) [#/Vol] 8.2 10*3/uL [employer] Work Phone: WBC (Bld) [#/Vol] NOT REPORTED [employer] Work Phone: [employer] Work Phone: EKG 12 LeadOrdered By: Reji Rondon on 04-14-2021 Atrial Rate 132 BPM [employer] Work Phone: P [place] 77 degrees Backand Phone: P-R Interval 150 ms Backand Phone: Q-T Interval 282 ms Back[employer] Phone: QRS Duration 66 ms [employer] Work Phone: QTc Calculation (Bazett) 417 ms [employer] Work Phone: R [place] 73 degrees [employer] Work Phone: T [place] 119 degrees Backand Phone: Ventricular Rate 132 BPM [employer] Work Phone: Sinus tachycardia Possible Left atrial enlargement Anteroseptal infarct , age undetermined T wave abnormality, consider inferior ischemia Abnormal ECG Backand Phone: Temo, Mhpn Incoming E kg Results From [facility] - 04/14/2021 6:49 AM EDT Sinus tachycardia Possible Left atrial enlargement Anteroseptal infarct , age undetermined T wave abnormality, consider inferior ischemia Abnormal ECG Backand Phone: Backand Phone: Glucose, Whole BloodOrdered By: Roverto Barbour on 04-14-2021 Glucose [Mass/Vol] 219 mg/dL High 65 - 99 mg/dL [employer] Phone: Glucose [Mass/Vol] 161 mg/dL High 65 - 99 mg/dL [employer] Phone: Glucose [Mass/Vol] 211 mg/dL High 65 - 99 mg/dL Backand Phone: Interpretation and review of laboratory results Abnormal Backand Phone: Backand Phone: Glucose [Mass/Vol] 212 mg/dL High 65 - 99 mg/dL Back[employer] Phone: Interpretation and review of laboratory results Abnormal [employer] Work Phone: [employer] [facility] Work Phone: Glucose [Mass/Vol] 221 mg/dL High 65 - 99 mg/dL [employer] Work Phone: Interpretation and review of laboratory results Abnormal [employer] Work Phone: [employer] Work Phone: Glucose [Mass/Vol] 172 mg/dL High 65 - 99 mg/dL [employer] Work Phone: Interpretation and review of laboratory results Abnormal [employer] Work Phone: [employer] Work Phone: Glucose [Mass/Vol] 176 mg/dL High 65 - 99 mg/dL [employer] Work Phone: Interpretation and review of laboratory results Abnormal [employer] Work Phone: [employer] Work Phone: Glucose [Mass/Vol] 152 mg/dL High 65 - 99 mg/dL [employer] Work Phone: Interpretation and review of laboratory results Abnormal [employer] Work Phone: [employer] Work Phone: Glucose [Mass/Vol] 106 mg/dL High 65 - 99 mg/dL [employer] Work Phone: Interpretation and review of laboratory results Abnormal [employer] Work Phone: [employer] Work Phone: Glucose [Mass/Vol] 157 mg/dL High 65 - 99 mg/dL [employer] Work Phone: Interpretation and review of laboratory results Abnormal [employer] Work Phone: [employer] Work Phone: Glucose [Mass/Vol] 253 mg/dL High 65 - 99 mg/dL [employer] Work Phone: Interpretation and review of laboratory results Abnormal [employer] Work Phone: [employer] Work Phone: Glucose [Mass/Vol] 237 mg/dL High 65 - 99 mg/dL [employer] [facility] Work Phone: Interpretation and review of laboratory results Abnormal [employer] Work Phone: [employer] Work Phone: Glucose [Mass/Vol] 173 mg/dL High 65 - 99 mg/dL [employer] Work Phone: Interpretation and review of laboratory results Abnormal [employer] Work Phone: [employer] Work Phone: Glucose [Mass/Vol] 187 mg/dL High 65 - 99 mg/dL [employer] Work Phone: Interpretation and review of laboratory results Abnormal [employer] Work Phone: [employer] Work Phone: Glucose [Mass/Vol] 211 mg/dL High 65 - 99 mg/dL [employer] Work Phone: Interpretation and review of laboratory results Abnormal Backand Phone: [employer] Work Phone: Glucose [Mass/Vol] 203 mg/dL High 65 - 99 mg/dL [employer] Work Phone: Interpretation and review of laboratory results Abnormal [employer] Work Phone: [employer] Work Phone: Glucose [Mass/Vol] 205 mg/dL High 65 - 99 mg/dL [employer] Work Phone: Interpretation and review of laboratory results Abnormal [employer] Work Phone: [employer] Work Phone: Glucose [Mass/Vol] 168 mg/dL High 65 - 99 mg/dL Backand Phone: Interpretation and review of laboratory results Abnormal [employer]and Phone: [employer] Work Phone: Hemoglobin [id number] By: Juan Jose Barbour on 04-14-2021 Glucose [Mass/Vol] 378 mg/dL Backand Phone: Comment on above: The ADA and AACC rec ommend providing the estimated average glucose result to permit better patient understanding of their HBA1c result. HbA1c (Bld) [Mass fraction] 14.8 % High 4.0 - 6.0 % Backand Phone: Interpretation and review of laboratory results Abnormal Backand Phone: Backand Phone: MagnesiumOrdered By: Roverto dozier on 04-14-2021 Magnesium [Mass/Vol] 1.7 mg/dL 1.6 - 2 .6 mg/dL Backand Phone: Magnesium [Mass/Vol] 1.8 mg/dL 1.6 - 2 .6 mg/dL [employer] Phone: Magnesium [Mass/Vol] 1.6 mg/dL 1.6 - 2 .6 mg/dL [employer] Phone: Magnesium [Mass/Vol] 1.7 mg/dL 1.6 - 2 .6 mg/dL [employer] Phone: Magnesium [Mass/Vol] 1.8 mg/dL 1.6 - 2 .6 mg/dL Backand Phone: No Panel InformationOrdered By: Roverto Barbour on 04-14-2021 Interpretation and review of laboratory results Abnormal Backand Phone: Backand Phone: Interpretation and review of laboratory results Abnormal Backand Phone: Backand Phone: Interpretation and review of laboratory results Abnormal Backand Phone: Backand Phone: Interpretation and review of laboratory results Abnormal Backand Phone: Backand Phone: Interpretation and review of laboratory results Abnormal Backand Phone: Backand Phone: PhosphorusOrdered By: Roverto Barbour on 04-14-2021 Phosphate [Mass/Vol] 2.5 mg/dL Low 2.6 - 4 .5 mg/dL [employer] Phone: Phosphate [Mass/Vol] 2.2 mg/dL Low 2.6 - 4 .5 mg/dL [employer] Phone: Phosphate [Mass/Vol] 1.9 mg/dL Low 2.6 - 4 .5 mg/dL [employer] Phone: Phosphate [Mass/Vol] 2.0 mg/dL Low 2.6 - 4 .5 mg/dL [employer] Phone: Phosphate [Mass/Vol] 2.1 mg/dL Low 2.6 - 4 .5 mg/dL [employer] Phone: TroponinOrdered By: Roverto Flores ck on 04-14-2021 Troponin Interp NOT REPORTED [facility] Work Phone: Troponin T NOT REPORTED <0.03 ng/mL [employer] [facility] Work Phone: Troponin, High Sensitivity 7 ng/L 0 - 14 ng/L Backand Phone: Comment on above: High Sensitivity Troponin values cannot be compared with other Troponin methodologies. Patients with high levels of Biotin oral intake (i.e >5mg/day) may have falsely decreased Troponin levels. Samples collected within 8 hours of biotin intake may require additional information for diagnosis. [employer] Work Phone: Beta-HydroxybutyrateOrdered By: Reji Nela on 04-13-2021 Beta-Hydroxybutyrate 9.79 mmol/L High 0.02 - 0.27 mmol/L [employer] Work Phone: Interpretation and review of laboratory results Abnormal [employer] Work Phone: [employer] Work Phone: CBC Auto DifferentialOrdered By: Reji Rondon on 04-13-2021 Absolute Eos # 0.00 [facility] Work Phone: Absolute Immature Granulocyte NOT REPORTED [email or web address] Work Phone: Absolute Lymph # 0.80 Low [employer] Work Phone: Absolute Phillips # 0.50 [employer] Work Phone: Basophils (Bld) [#/Vol] 0.00 10*3/uL [employer] Work Phone: Basophils/100 WBC (Bld) 0 % 0 - 2 % [employer] Work Phone: Differential Type YES [employer] [facility] Work Phone: Eosinophils/100 WBC (Bld) 0 % 0 - 5 % [employer] Work Phone: Hematocrit (Bld) [Volume fraction] 51.4 % High 36 - 46 % [employer] Work Phone: Hemoglobin.gastrointe stinal spec 1 Ql (Stl) 17.0 g/dL High 12.0 - 16.0 g/dL [employer] Work Phone: Immature Granulocytes NOT REPORTED 0 % [email or web address] Work Phone: Interpretation and review of laboratory results Abnormal [employer] Work Phone: Lymphocytes/100 WBC (Bld) 7 % Low 15 - 40 % [employer] Work Phone: MCH (RBC) [Entitic mass] 30.2 pg 26 - 34 pg [employer] Work Phone: MCHC (RBC) [Mass/Vol] 33.1 g/dL 31 - 3 7 g/dL [employer] Work Phone: MCV (RBC) [Entitic vol] 91.3 fL 80 - 100 fL [employer] Work Phone: Monocytes/100 WBC (Bld) 5 % 4 - 8 % [employer] Work Phone: NRBC Automated NOT REPORTED per 100 WBC [facility] Work Phone: Platelet distribution width (Bld) [Ratio] 13.8 % 12.1 - 15.2 % [employer] Work Phone: Platelet Estimate NOT REPORTED [employer] Work Phone: Platelet mean volume (Bld) [Entitic vol] NOT REPORTED 6.0 - 12.0 fL [employer] Work Phone: Platelets (Bld) [#/Vol] 355 10*3/uL [employer] Work Phone: RBC (Bld) [#/Vol] 5.63 10*6/uL High 4.0 - 5.2 m/uL [employer] Work Phone: RBC (Bld) [#/Vol] NOT REPORTED [employer] Work Phone: Segmented neutrophils/100 WBC (Bld) 88 % High 47 - 75 % [employer] Work Phone: Segs Absolute 10.40 High [facility] Work Phone: WBC (Bld) [#/Vol] 11.6 10*3/uL High [employer] Work Phone: WBC (Bld) [#/Vol] NOT REPORTED [employer] Work Phone: [employer] Work Phone: COVID-19, RapidOrdered By: Chichi Rondon on 04-13-2021 SARS-CoV-2 (COVID-19) RNA ESPERANZA+probe Ql (Unsp spec) Not detected Not Detected [employer] Phone: Comment on above: Rapid NAAT: The [...] management decisions. Fact sheet for Healthcare Providers: https://www.fda.gov/media/609787/download Fact sheet for Patients: https://www.fda.gov/media/128472/download Methodology: Isothermal Nucleic Acid Amplification Specimen Description .NASOPHARYNGEAL SWAB Backand Phone: Backand Phone: CT ABDOMEN PELVIS WO CONTRAS T Additional Contrast? NoneOrdered By: Reji Rondon on 04-13-2021 1. Bilateral nonobstructing renal calculi. No ureteral calculi. 2. Left renal cysts which are not optimally assessed on this unenhanced study. 3. Hepatic steatosis. Backand Phone: EXAMINATION: CT ABDO MEN PELVIS WO CONTRAST, 04/13/2021 4:15 PM EDT [...] No ascites or focal intraperitoneal fluid collections. Backand Phone: Temo, Mhpn Incoming Radiant Results From [facility] - 04/13/2021 5:00 PM EDT EXAMINATION: CT [...] on this unenhanced study. 3. Hepatic steatosis. Backand Phone: Backand Phone: Comprehensive Metabolic Pane l w/ Reflex to MGOrdered By: Reji Rondon on 04-13-2021 Albumin [Mass/Vol] 4.5 g/dL 3.5 - 5.2 g/dL [employer] Phone: Albumin/Globulin Ratio NOT REPORTED [employer] Phone: ALP (Bld) [Catalytic activity/Vol] 144 U/L High 35 - 104 U/L [employer] Phone: ALT [Catalytic activity/Vol] 15 U/L 5 - 33 U/L [employer] Phone: Anion gap [Moles/Vol] 33 mmol/L High 9 - 17 mmol/L [employer] Phone: AST [Catalytic activity/Vol] 11 U/L <32 [employer] Phone: Bilirubin [Mass/Vol] 0.22 mg/dL Low 0.30 - 1.20 mg/dL [employer] Phone: Calcium [Mass/Vol] 10.3 mg/dL 8.6 - 10. 4 mg/dL [employer] Phone: Chloride [Moles/Vol] 91 mmol/L Low 98 - 10 7 mmol/L [employer] Phone: CO2 [Moles/Vol] 6 mmol/L Critically low 20 - 31 mmol/L [employer] Phone: Creatinine [Mass/Vol] 0.89 mg/dL 0.50 - 0.90 mg/dL [employer] Phone: Free PSA/Total PSA [Mass fraction] 8.2 g/dL 6.4 - 8.3 g/dL [employer] Phone: GFR >60 >60 mL/min [facility] Phone: GFR Non- >60 >60 mL/min Backand Phone: GFR/1.73 sq M.predicted MDRD (S/P/Bld) [Vol rate/Area] Backand Phone: Comment on above: Average GFR for 50-5 9 years old: 93 mL/min/1.73sq m Chronic Kidney Disease: <60 mL/min/1.73sq m Kidney failure: <15 mL/min/1.73sq m eGFR calculated using average adult body mass. Additional eGFR calculator available at: http://www.UpTo/multiple_crcl_2012.htm GFR/1.73 sq M.predicted MDRD (S/P/Bld) [Vol rate/Area] NOT REPORTED [employer] Phone: Glucose [Mass/Vol] 437 mg/dL Critically high 70 - 9 9 mg/dL [employer] Phone: Interpretation and review of laboratory results Abnormal [employer] Phone: Potassium [Moles/Vol] 4.4 mmol/L 3.7 - 5.3 mmol/L [employer] Phone: Sodium [Moles/Vol] 130 mmol/L Low 135 - 144 mmol/L [employer] Phone: Urea nitrogen (BldV) [Mass/Vol] 21 mg/dL High 6 - 20 mg/dL [employer] Phone: Urea nitrogen/Creatinine (Bld) [Mass ratio] 24 High [employer] Phone: Glucose, Whole BloodOrdered By: Roverto Barbour on 04-13-2021 Glucose [Mass/Vol] 186 mg/dL High 65 - 99 mg/dL [employer] Phone: Interpretation and review of laboratory results Abnormal Back[employer] Phone: Backand Phone: Glucose [Mass/Vol] 219 mg/dL High 65 - 99 mg/dL [employer] Phone: Interpretation and review of laboratory results Abnormal Back[employer] Phone: Backand Phone: Glucose, Whole BloodOrdered By: Reji Rondon on 04-13-2021 Glucose [Mass/Vol] 239 mg/dL High 65 - 99 mg/dL [facility] [employer] Work Phone: Interpretation and review of laboratory results Abnormal [facility] Work Phone: [facility] Work Phone: Glucose [Mass/Vol] 383 mg/dL High 65 - 99 mg/dL [facility] Work Phone: Interpretation and review of laboratory results Abnormal [facility] Work Phone: [facility] Work Phone: LipaseOrdered By: Reji galvan on 04-13-2021 Lipase [Catalytic activity/Vol] 26 U/L 13 - 60 U/L [facility] Work Phone: Microscopic UrinalysisOrdere d By: Reji Rondon on 04-13-2021 - [facility] Work Phone: Amorphous, UA NOT REPORTED None [facility] Work Phone: Bacteria, UA NOT REPORTED None [facility] Work Phone: Casts UA NOT REPORTED /LPF [facility] Work Phone: Crystals, UA NOT REPORTED None /HPF [facility] Work Phone: Epithelial Cells UA NOT REPORTED /HPF [facility] Work Phone: Interpretation and review of laboratory results Abnormal [facility] Work Phone: Mucus, UA RARE Abnormal None [facility] Work Phone: Other Observations UA NOT REPORTED NOT REQ. M [facility] Work Phone: RBC, UA NOT REPORTED [facility] Work Phone: Renal Epithelial, UA NOT REPORTED 0 /HPF [facility] Work Phone: Trichomonas, UA NOT REPORTED None [facility] Work Phone: WBC, UA 0 TO 2 0 /HPF [facility] Work Phone: Yeast, UA NOT REPORTED None [employer] Work Phone: [employer] Work Phone: No Panel InformationOrdered By: Reji Rondon on 04-13-2021 [employer] Work Phone: POCT Glucose - every hourOrd ered By: Reji Rondon on 04-13-2021 Glucose [Mass/Vol] 239 mg/dL [employer] Work Phone: Interpretation and review of laboratory results Normal [employer] Work Phone: QC OK? yes [employer] Work Phone: [employer] Work Phone: Glucose [Mass/Vol] 383 mg/dL [employer] Work Phone: Interpretation and review of laboratory results Normal [employer] Work Phone: QC OK? yes [employer] Work Phone: [employer] Work Phone: Urinalysis, reflex to micros copicOrdered By: Reji Rondon on 04-13-2021 Bilirubin Urine Negative NEGATIVE [employer] [facility] Work Phone: Color, UA Yellow Yellow [employer] Work Phone: Glucose, Ur 1000 mg/dL Abnormal NEGATIVE [employer] Work Phone: Interpretation and review of laboratory results Abnormal [employer] Work Phone: Ketones Ql (U) LARGE Abnormal NEGATIVE [employer] [facility] Work Phone: Leukocyte esterase Test strip Ql (U) Negative NEGATIVE [employer] Work Phone: Nitrite, Urine Negative NEGATIVE [employer] Work Phone: pH, UA 5.0 [employer] Work Phone: Protein, UA 2+ Abnormal NEGATIVE [employer] Work Phone: Specific [place], UA 1.025 [facility] [email or web address] Work Phone: Turbidity UA Clear Clear [facility] [employer] Work Phone: Urinalysis Comments [facility] [employer] Phone: Urine Hgb TRACE Abnormal NEGATIVE [facility] [employer] Work Phone: Urobilinogen, Urine Normal Normal [facility] [employer] Phone: [facility] [employer] Work Phone: Basic Metabolic Panelon 01-15 Anion gap [Moles/Vol] 16 mmol/L 9 - 17 mmol/L [place] Bun/Cre Ratio 27 [place] Calcium [Mass/Vol] 9.4 mg/dL 8.6 - 10. 4 mg/dL [place] Chloride [Moles/Vol] 94 mmol/L Low 98 - 10 7 mmol/L [place] CO2 [Moles/Vol] 18 mmol/L Low 20 - 31 mmol/L [place] Creatinine [Mass/Vol] 0.52 mg/dL 0.5 - 0.9 mg/dL [place] GFR >60 >60 mL/min [place] GFR Non- >60 >60 mL/min [place] Glucose [Mass/Vol] 535 mg/dL Critically high 70 - 9 9 mg/dL [place] Interpretation and review of laboratory results Abnormal [place] Potassium [Moles/Vol] 4.6 mmol/L 3.7 - 5.3 mmol/L [place] Sodium [Moles/Vol] 128 mmol/L Low 135 - 144 mmol/L [place] Urea nitrogen [Mass/Vol] 14 mg/dL 6 - 20 mg/dL [place] CBC Auto Differentialon 01-15 Basophils (Bld) [#/Vol] 0.04 10*3/uL [place] Basophils/100 WBC (Bld) 1 % 0 - 2 % [place] Differential Type NOT REPORTED [place] Eosinophils (Bld) [#/Vol] 0.07 10*3/uL [place] Eosinophils/100 WBC (Bld) 1 % 1 - 4 % [place] Erythrocyte distribution width (RBC) [Ratio] 12.7 % 11.8 - 14.4 % [place] Hematocrit (Bld) [Volume fraction] 45.4 % 36.3 - 47.1 % [place] Hemoglobin (Bld) [Mass/Vol] 15.3 g/dL High 11.9 - 15.1 g/dL [place] Immature granulocytes (Bld) [#/Vol] 10*3/uL [place] Immature granulocytes (Bld) [#/Vol] 0 % 0 [place] Interpretation and review of laboratory results Abnormal [place] Lymphocytes (Bld) [#/Vol] 1.25 10*3/uL [place] Lymphocytes/100 WBC (Bld) 21 % Low 24 - 43 % [place] MCH (RBC) [Entitic mass] 30.1 pg 25.2 - 33.5 pg [place] MCHC (RBC) [Mass/Vol] 33.7 g/dL 28.4 - 34.8 g/dL [place] MCV (RBC) [Entitic vol] 89.4 fL 82.6 - 102.9 fL [place] Monocytes (Bld) [#/Vol] 0.66 10*3/uL [place] Monocytes/100 WBC (Bld) 11 % 3 - 12 % [place] Platelet mean volume (Bld) [Entitic vol] 10.9 fL 8.1 - 13.5 fL [place] Platelets (Bld) [#/Vol] NOT REPORTED [place] Platelets (Bld) [#/Vol] 247 10*3/uL [place] RBC (Bld) [#/Vol] 5.08 10*6/uL 3.95 - 5.1 1 m/uL [place] RBC morphology finding Nom (Bld) NOT REPORTED [place] Segmented neutrophils/100 WBC (Bld) 66 % High 36 - 65 % [place] Segs Absolute 3.83 [place] WBC (Bld) [#/Vol] 5.9 10*3/uL [place] WBC (Bld) [#/Vol] 0.0 10*3/uL 0.0 per 10 0 WBC [place] WBC Morphology NOT REPORTED [place], [place] CT ABDOMEN PELVIS WO CONTRAS T Additional Contrast? Noneon 02-11-2020 Nonobstructive calcu li are seen in the kidneys bilaterally. No CT findings of recently passed stone. Subtle increased dependent hyperdensity seen within the gallbladder, which could be related to cholelithiasis or sludge. No pericholecystic inflammatory changes are seen or gallbladder wall thickening to a suggest acute cholecystitis based on CT. Diverticulosis without acute diverticulitis. Other incidental stable findings as above. [place] EXAMINATION: [facility] OF [facility] ABDOMEN AND PELVIS WITHOUT CONTRAST 02/11/2020 10:45 [...] free fluid is identified in the pelvis. Peritoneum/Retroperitone um: No abdominal aortic aneurysm is identified. Atherosclerotic disease is seen. No retroperitoneal or mesenteric lymphadenopathy is identified. Bones/Soft Tissues: No acute subcutaneous soft tissue abnormality is identified. No inguinal lymphadenopathy is identified. No acute osseous abnormality is seen. No destructive osseous process is identified. [facility]- [place], [place], [facility] Incoming Radiant Results From [facility] - 02/11/2020 10:58 AM EDT EXAMINATION: CT [...] free fluid is identified in the pelvis. Peritoneum/Retroperitone um: No abdominal aortic aneurysm is identified. Atherosclerotic [...] diverticulitis. Other incidental stable findings as above. [place] Metabolic Panelon 02-11-2020 GFR/1.73 sq M predicted among non-blacks MDRD (S/P/Bld) [Vol rate/Area] [place] Comment on above: Average GFR for 50-5 9 years old: 93 mL/min/1.73sq m Chronic Kidney Disease: <60 mL/min/1.73sq m Kidney failure: <15 mL/min/1.73sq m eGFR calculated using average adult body mass. Additional eGFR calculator available at: http://www.[email or web address]/multiple_crcl_2012.htm Stage 1: Some kidney damage normal GFR Stage 2: Mild kidney damage GFR 60-89 Stage 3: Moderate kidney damage GFR 30-59 Stage 4: Severe kidney damage GFR 15-29 Stage 5: Severe kidney damage GFR <15 ESRD - chronic treatment by dialysis or transplant Urinalysis with Micro[employer] n 02-11-2020 Amorphous, UA NOT REPORTED None [place] Bacteria, UA TRACE Abnormal None [place] Bilirubin Urine SMALL Abnormal NEGATIVE [place] Casts UA NOT REPORTED /LPF [place] Color, UA YELLOW YELLOW [place] Crystals, UA NOT REPORTED None /HPF [place] Epithelial Cells UA 2 TO 5 [place] Glucose, Ur 3+ Abnormal NEGATIVE [place] Interpretation and review of laboratory results Abnormal [place] Ketones Ql (U) 4+ Abnormal NEGATIVE [place] Leukocyte esterase Test strip Ql (U) Negative NEGATIVE [facility], [place] Mucus, UA NOT REPORTED None [facility], [place] Nitrite, Urine Negative NEGATIVE [facility], [place] Other Observations UA NOT REPORTED NOT REQ. M [facility], [place] pH, UA 6.0 [facility], [place] Protein (U) [Mass/Vol] TRACE Abnormal NEGATIVE [facility], [place] RBC (U) [#/Vol] None [facility] Renal Epithelial, UA NOT REPORTED 0 /HPF [facility], [place] Specific [place], UA 1.020 [facility], [place] Trichomonas, UA NOT REPORTED None [facility] [place], [place] Turbidity UA CLEAR CLEAR [facility], [place] Urinalysis Comments NOT REPORTED [facility] [place] Urine Hgb Negative NEGATIVE [facility] Urobilinogen, Urine Normal Normal [facility], [place] WBC, UA 2 TO 5 [facility], [place] Yeast, UA NOT REPORTED None [facility] - [facility] Vital Signs Date Time Vital Sign Value Performing Clinician Johannai marianna 03-03-2025 13:10-0400 Diastolic blood pressure 67 mm[Hg] Kavita Hardeep [employer] Work Phone: [facility] 03-03-2025 13:10-0400 Systolic blood pressure 98 mm[Hg] Kavita Hardeep [employer] Work Phone: [facility] 03-03-2025 12:45-0400 Diastolic blood pressure 55 mm[Hg] Kavita Hardeep [employer] Work Phone: [facility] 03-03-2025 12:45-0400 Systolic blood pressure 84 mm[Hg] Kavita Hardeep [employer] Work Phone: [facility] 03-03-2025 12:00-0400 Diastolic blood pressure 52 mm[Hg] Kavita Hardeep [employer] Work Phone: [facility] Work Phone: 03-03-2025 12:00-0400 Systolic blood pressure 73 mm[Hg] Kavita Hardeep [employer] Work Phone: [facility] Work Phone: 03-03-2025 11:56-0400 Body height 167.64 cm Kavita Qureshi CNP Work Phone: [facility] Work Phone: 03-03-2025 11:56-0400 Body mass index (BMI) [Ratio] 27.6 kg/m2 Kavita Qureshi CNP Work Phone: [facility] Work Phone: 03-03-2025 11:56-0400 Body surface area Derived from formula 1.9 m2 Kavita Qureshi CNP Work Phone: [facility] Work Phone: 03-03-2025 11:56-0400 Body temperature 98.4 [degF] Kavita Qureshi CNP Work Phone: [facility] Work Phone: 03-03-2025 11:56-0400 Body weight 77.47 kg Kavita Qureshi CNP Work Phone: [facility] Work Phone: 03-03-2025 11:56-0400 Diastolic blood pressure 51 mm[Hg] Kavita Qureshi CNP Work Phone: [facility] Work Phone: 03-03-2025 11:56-0400 Heart rate 111 /min Kavita Qureshi CNP Work Phone: [facility] Work Phone: 03-03-2025 11:56-0400 Inhaled oxygen concentration 21 % Kavita Qureshi CNP Work Phone: [facility] Work Phone: 03-03-2025 11:56-0400 Inhaled oxygen flow rate 0 L/min Kavitadima Qureshi CNP Work Phone: [facility] Work Phone: 03-03-2025 11:56-0400 Respiratory rate 18 /min Kavita Qureshi CNP Work Phone: [facility] Work Phone: 03-03-2025 11:56-0400 SaO2% (BldA) [Mass fraction] 96 % Kavita Qureshi [employer] Work Phone: [facility] Work Phone: 03-03-2025 11:56-0400 Systolic blood pressure 78 mm[Hg] Kavita Qureshi [employer] Work Phone: [facility] Work Phone: 02-26-2025 14:30-0400 Diastolic blood pressure 63 mm[Hg] Bekah Lan MD Work Phone: [facility] [employer] 02-26-2025 14:30-0400 Systolic blood pressure 90 mm[Hg] Bekah Lan MD Work Phone: [employer] 02-26-2025 13:15-0400 SaO2% (BldA) [Mass fraction] 93 % Bekah Lan MD Work Phone: [facility] [employer] 02-26-2025 13:01-0400 Body height 167.6 cm Bekah Lan MD Work Phone: [employer] 02-26-2025 13:01-0400 Body mass index (BMI) [Ratio] 25.99 kg/m2 Bekah Lan MD Work Phone: [employer] 02-26-2025 13:01-0400 Body temperature 97.81 [degF] Bekah Lan MD Work Phone: [employer] 02-26-2025 13:01-0400 Body weight 73.03 kg Bekah Lan MD Work Phone: [employer] 02-26-2025 13:01-0400 Heart rate 105 /min Bekah Lan MD Work Phone: [facility] 02-26-2025 13:01-0400 Respiratory rate 18 /min Bekah Lan MD Work Phone: [facility] 12-31-2024 12:41-0400 Diastolic blood pressure 62 mm[Hg] Kavita Hardeepalina JIMENEZ Work Phone: [facility] 12-31-2024 12:41-0400 Systolic blood pressure 92 mm[Hg] Kavita Qureshi CNP Work Phone: [facility] 12-31-2024 12:33-0400 Body height 167.64 cm Kavita Qureshi CNP Work Phone: [facility] 12-31-2024 12:33-0400 Body mass index (BMI) [Ratio] 28.1 kg/m2 Kavita Hardeepalina JIMENEZ Work Phone: [facility] 12-31-2024 12:33-0400 Body surface area Derived from formula 1.9 m2 Kavita Hardeep JIMENEZ Work Phone: [facility] 12-31-2024 12:33-0400 Body temperature 98.3 [degF] Kavita Hardeep JIMENEZ Work Phone: [facility] 12-31-2024 12:33-0400 Body weight 78.93 kg Kavita Hardeepalina JIMENEZ Work Phone: [facility] 12-31-2024 12:33-0400 Diastolic blood pressure 61 mm[Hg] Kavita Qureshi CNP Work Phone: [facility] 12-31-2024 12:33-0400 Heart rate 114 /min Kavita Qureshi CNP Work Phone: [facility] 12-31-2024 12:33-0400 Respiratory rate 20 /min Kavita Qureshi CNP Work Phone: [facility] 12-31-2024 12:33-0400 SaO2% (BldA) [Mass fraction] 94 % Kavita Qureshi CNP Work Phone: [facility] 12-31-2024 12:33-0400 Systolic blood pressure 88 mm[Hg] Kavita Hardeep [employer] Work Phone: [facility] 11-27-2024 10:55-0400 Diastolic blood pressure 69 mm[Hg] Kavita Hardeep [employer] Work Phone: [facility] 11-27-2024 10:55-0400 Systolic blood pressure 101 mm[Hg] Kavita Hardeep [employer] Work Phone: [facility] 11-27-2024 10:52-0400 Body height 167.64 cm Kavita Hardeep [employer] Work Phone: [facility] 11-27-2024 10:52-0400 Body mass index (BMI) [Ratio] 27.8 kg/m2 Kavita Hardeep [employer] Work Phone: [facility] 11-27-2024 10:52-0400 Body surface area Derived from formula 1.9 m2 Kavita Hardeep [employer] Work Phone: [facility] 11-27-2024 10:52-0400 Body weight 78.02 kg Kavita Hardeep [employer] Work Phone: [facility] 11-27-2024 10:52-0400 Diastolic blood pressure 73 mm[Hg] Kavita Hardeep [employer] Work Phone: [facility] 11-27-2024 10:52-0400 Heart rate 114 /min Kavita Hardeep [employer] Work Phone: [facility] 11-27-2024 10:52-0400 SaO2% (BldA) [Mass fraction] 95 % Kavita Hardeep [employer] Work Phone: [facility] 11-27-2024 10:52-0400 Systolic blood pressure 108 mm[Hg] Kavita Hardeep [employer] Work Phone: [facility] 10-24-2024 15:03-0400 Diastolic blood pressure 68 mm[Hg] Kavita Hardeep [employer] Work Phone: [facility] 10-24-2024 15:03-0400 Systolic blood pressure 114 mm[Hg] Kavita Qureshi CNP Work Phone: [facility] 10-24-2024 14:55-0400 Body height 167.64 cm Kavita Qureshi CNP Work Phone: [facility] 10-24-2024 14:55-0400 Body mass index (BMI) [Ratio] 27.7 kg/m2 Kavita Qureshi CNP Work Phone: [facility] 10-24-2024 14:55-0400 Body surface area Derived from formula 1.9 m2 Kavita Qureshi CNP Work Phone: [facility] 10-24-2024 14:55-0400 Body weight 77.93 kg Kavita Qureshi CNP Work Phone: [facility] 10-24-2024 14:55-0400 Diastolic blood pressure 72 mm[Hg] Kavita Qureshi CNP Work Phone: [facility] 10-24-2024 14:55-0400 Heart rate 113 /min Kavita Qureshi CNP Work Phone: [facility] 10-24-2024 14:55-0400 SaO2% (BldA) [Mass fraction] 95 % Kavita Qureshi CNP Work Phone: [facility] 10-24-2024 14:55-0400 Systolic blood pressure 123 mm[Hg] Kavita Qureshi CNP Work Phone: [facility] 09-29-2024 13:45-0400 Diastolic blood pressure 82 mm[Hg] Cris Herring MD Work Phone: [employer] 09-29-2024 13:45-0400 Heart rate 115 /min Cris Herring MD Work Phone: [employer] 09-29-2024 13:45-0400 Respiratory rate 18 /min Cris Herring MD Work Phone: [employer] 09-29-2024 13:45-0400 SaO2% (BldA) [Mass fraction] 98 % Cris Herring MD Work Phone: [employer] 09-29-2024 13:45-0400 Systolic blood pressure 115 mm[Hg] Cris Herring MD Work Phone[facility] [facility] 09-29-2024 13:44-0400 Body height 170.2 cm Cris Herring MD Work Phone: [employer] [facility] 09-29-2024 13:44-0400 Body mass index (BMI) [Ratio] 27.57 kg/m2 Cris Herring MD Work Phone: [employer] 09-29-2024 13:44-0400 Body weight 79.83 kg Cris Herring MD Work Phone: [employer] [email or web address] [employer] 09-19-2024 09:36-0500 Diastolic blood pressure 72 mm[Hg] Kavita Qureshi CNP Work Phone: [facility] 09-19-2024 09:36-0500 Systolic blood pressure 116 mm[Hg] Kavita Bryanter [employer] Work Phone: [facility] 09-19-2024 09:24-0500 Body height 167.64 cm Kavita Qureshi [employer] Work Phone: [facility] 09-19-2024 09:24-0500 Body mass index (BMI) [Ratio] 28.9 kg/m2 Kavita Bryanter [employer] Work Phone: [facility] 09-19-2024 09:24-0500 Body surface area Derived from formula 1.9 m2 Kavita Hardeep [employer] Work Phone: [facility] 09-19-2024 09:24-0500 Body temperature 98.4 [degF] Kavita Bryanter [employer] Work Phone: [facility] 09-19-2024 09:24-0500 Body weight 81.1 kg Kavita Qureshi [employer] Work Phone: [facility] 09-19-2024 09:24-0500 Diastolic blood pressure 63 mm[Hg] Kavita Qureshi [employer] Work Phone: [facility] 09-19-2024 09:24-0500 Heart rate 122 /min Kavita Qureshi [employer] Work Phone: [facility] 09-19-2024 09:24-0500 Respiratory rate 18 /min Kavita Qureshi [employer] Work Phone: [facility] 09-19-2024 09:24-0500 SaO2% (BldA) [Mass fraction] 95 % Kavita Qureshi [employer] Work Phone: [facility] 09-19-2024 09:24-0500 Systolic blood pressure 131 mm[Hg] Kavita Qureshi [employer] Work Phone: [facility] 09-09-2024 06:34-0500 Diastolic blood pressure 81 mm[Hg] Mallory Aleman MD Work Phone: [facility] [employer] 09-09-2024 06:34-0500 Heart rate 123 /min Mallory Aleman MD Work Phone: [facility] [employer] 09-09-2024 06:34-0500 Respiratory rate 21 /min Mallory [facility]man MD [facility] 09-09-2024 06:34-0500 SaO2% (BldA) [Mass fraction] 98 % Mallory Aleman MD Work Phone: [facility] [employer] 09-09-2024 06:34-0500 Systolic blood pressure 107 mm[Hg] Mallory Aleman MD Work Phone: [facility] [employer] 09-09-2024 04:20-0500 Body height 170.2 cm Mallory Aleman MD Work Phone: [facility] [employer] 09-09-2024 04:20-0500 Body mass index (BMI) [Ratio] 27.57 kg/m2 Mallory Aleman MD Work Phone: [employer] 09-09-2024 04:20-0500 Body temperature 97.81 [degF] Mallory Aleman MD Work Phone: [facility] [employer] 09-09-2024 04:20-0500 Body weight 79.83 kg Mallory Aleman MD Work Phone: [facility] [employer] 09-04-2024 10:45-0500 Diastolic blood pressure 75 mm[Hg] Mallory Aleman MD Work Phone: [facility] [employer] 09-04-2024 10:45-0500 Heart rate 115 /min Mallory Aleman MD Work Phone: [facility] [employer] 09-04-2024 10:45-0500 Respiratory rate 25 /min Mallory Aleman MD Work Phone: [facility] [employer] 09-04-2024 10:45-0500 SaO2% (BldA) [Mass fraction] 97 % Mallory Aleman MD Work Phone: [facility] [employer] 09-04-2024 10:45-0500 Systolic blood pressure 99 mm[Hg] Mallory Aleman MD Work Phone: [facility] [employer] 09-04-2024 08:07-0500 Body height 170.2 cm Mallory Aleman MD Work Phone: [facility] [employer] 09-04-2024 08:07-0500 Body mass index (BMI) [Ratio] 28.04 kg/m2 Mallory Aleman MD Work Phone: [facility] [employer] 09-04-2024 08:07-0500 Body temperature 97.7 [degF] Mallory Aleman MD Work Phone: [facility] [employer] 09-04-2024 08:07-0500 Body weight 81.19 kg Mallory Aleman MD Work Phone: [facility] [employer] 09-02-2024 20:00-0500 Diastolic blood pressure 87 mm[Hg] Chaim Del Toro MD Work Phone: [email or web address] [facility] 09-02-2024 20:00-0500 Heart rate 119 /min Chaim Del Toro MD Work Phone: [email or web address] 09-02-2024 20:00-0500 SaO2% (BldA) [Mass fraction] 98 % Chaim Del Toro MD Work Phone: [facility] 09-02-2024 20:00-0500 Systolic blood pressure 118 mm[Hg] Chaim Del Toro MD Work Phone: [facility] [employer] 09-02-2024 14:13-0500 Body mass index (BMI) [Ratio] 27.57 kg/m2 Chaim Del Toro MD Work Phone: [facility] [employer] 09-02-2024 14:13-0500 Body temperature 98.01 [degF] Chaim Del Toro MD Work Phone: [email or web address] 09-02-2024 14:13-0500 Body weight 79.83 kg Chaim Del Toro MD Work Phone: [email or web address] 09-02-2024 14:13-0500 Respiratory rate 16 /min Chaim Del Toro MD Work Phone: [facility] 09-02-2024 13:06-0500 Diastolic blood pressure 68 mm[Hg] Kavita Qureshi CNP Work Phone: [facility] 09-02-2024 13:06-0500 Heart rate 123 /min Kavita Qureshi [employer] Work Phone: [facility] 09-02-2024 13:06-0500 Systolic blood pressure 94 mm[Hg] Kavita Qureshi [employer] Work Phone: [facility] 09-02-2024 12:24-0500 Diastolic blood pressure 60 mm[Hg] Kavita Qureshi [employer] Work Phone: [facility] 09-02-2024 12:24-0500 Systolic blood pressure 83 mm[Hg] Kavita Hardeep [employer] Work Phone: [facility] 09-02-2024 12:21-0500 Diastolic blood pressure 62 mm[Hg] Kavita Hardeep [employer] Work Phone: [facility] 09-02-2024 12:21-0500 Systolic blood pressure 84 mm[Hg] Kavita Hardeep [employer] Work Phone: [facility] 09-02-2024 12:14-0500 Body height 167.64 cm Kavita Hardeep [employer] Work Phone: [facility] 09-02-2024 12:14-0500 Body mass index (BMI) [Ratio] 28.4 kg/m2 Kavita Hardeep [employer] Work Phone: [facility] 09-02-2024 12:14-0500 Body surface area Derived from formula 1.9 m2 Kavitadima Qureshi [employer] Work Phone: [facility] 09-02-2024 12:14-0500 Body temperature 97.9 [degF] Kavita Hardeep [employer] Work Phone: [facility] 09-02-2024 12:14-0500 Body weight 79.83 kg Kavita Hardeep [employer] Work Phone: [facility] 09-02-2024 12:14-0500 Diastolic blood pressure 73 mm[Hg] Kavita Hardeep [employer] Work Phone: [facility] 09-02-2024 12:14-0500 Heart rate 133 /min Kavita Hardeep [employer] Work Phone: [facility] 09-02-2024 12:14-0500 SaO2% (BldA) [Mass fraction] 95 % Kavita Hardeep [employer] Work Phone: [facility] 09-02-2024 12:14-0500 Systolic blood pressure 104 mm[Hg] Kavita Hardeep [employer] Work Phone: [facility] 08-21-2024 20:45-0500 Diastolic blood pressure 65 mm[Hg] Chaim Del Toro MD Work Phone: [facility] 08-21-2024 20:45-0500 Heart rate 122 /min Chaim Del Toro MD Work Phone: [facility] [employer] 08-21-2024 20:45-0500 Respiratory rate 21 /min Chaim Del Toro MD Work Phone: [facility] [employer] 08-21-2024 20:45-0500 SaO2% (BldA) [Mass fraction] 98 % Chaim Del Toro MD Work Phone: [facility] [employer] 08-21-2024 20:45-0500 Systolic blood pressure 119 mm[Hg] Chaim Del Toro MD Work Phone: [facility] [employer] 08-21-2024 18:20-0500 Body temperature 98.8 [degF] Chaim Del Toro MD Work Phone: [facility] [employer] 08-21-2024 16:02-0500 Diastolic blood pressure 64 mm[Hg] Kavita Qureshi CNP Work Phone: [facility] 08-21-2024 16:02-0500 Systolic blood pressure 88 mm[Hg] Kavita Qureshi CNP Work Phone: [facility] 08-21-2024 15:17-0500 Diastolic blood pressure 49 mm[Hg] Kavita Qureshi CNP Work Phone: [facility] 08-21-2024 15:17-0500 Systolic blood pressure 77 mm[Hg] Kavita Qureshi CNP Work Phone: [facility] 08-21-2024 15:01-0500 Body height 167.64 cm Kavita Qureshi CNP Work Phone: [facility] 08-21-2024 15:01-0500 Body mass index (BMI) [Ratio] 28.7 kg/m2 Kavita Qureshi CNP Work Phone: [facility] 08-21-2024 15:01-0500 Body surface area Derived from formula 1.9 m2 Kavita Qureshi CNP Work Phone: [facility] 08-21-2024 15:01-0500 Body temperature 97.7 [degF] Kavita Qureshi CNP Work Phone: [facility] 08-21-2024 15:01-0500 Body weight 80.74 kg Kavita Qureshi CNP Work Phone: [facility] 08-21-2024 15:01-0500 Diastolic blood pressure 60 mm[Hg] Kavita Qureshi CNP Work Phone: [facility] 08-21-2024 15:01-0500 Heart rate 133 /min Kavita Qureshi CNP Work Phone: [facility] 08-21-2024 15:01-0500 SaO2% (BldA) [Mass fraction] 95 % Kavita Qureshi CNP Work Phone: [facility] 08-21-2024 15:01-0500 Systolic blood pressure 80 mm[Hg] Kavita Qureshi CNP Work Phone: [facility] 08-17-2024 10:16-0500 Body height 170.2 cm Lukas Lopez MD Work Phone: [employer] 08-17-2024 10:16-0500 Body mass index (BMI) [Ratio] 28.82 kg/m2 Lukas Lopez MD Work Phone: [employer] 08-17-2024 10:16-0500 Body temperature 98.1 [degF] Lukas Lopez MD Work Phone: [employer] [employer] 08-17-2024 10:16-0500 Body weight 83.46 kg Lukas Lopez MD Work Phone: [employer] 08-17-2024 10:16-0500 Diastolic blood pressure 86 mm[Hg] Lukas Lopez MD Work Phone: [employer] 08-17-2024 10:16-0500 Heart rate 133 /min Lukas Lopez MD Work Phone: [employer] 08-17-2024 10:16-0500 Respiratory rate 18 /min Lukas Lopez MD Work Phone: [employer] 08-17-2024 10:16-0500 SaO2% (BldA) [Mass fraction] 96 % Lukas Lopez MD Work Phone: [employer] 08-17-2024 10:16-0500 Systolic blood pressure 156 mm[Hg] Lukas Lopez MD Work Phone: [employer] 08-08-2024 15:13-0500 Body height 167.64 cm Kavita Qureshi CNP Work Phone: [facility] 08-08-2024 15:13-0500 Body mass index (BMI) [Ratio] 28.7 kg/m2 Kavita Qureshi CNP Work Phone: [facility] 08-08-2024 15:13-0500 Body surface area Derived from formula 1.9 m2 Kavita Qureshi CNP Work Phone: [facility] 08-08-2024 15:13-0500 Body temperature 98.3 [degF] Kavita Qureshi [employer] Work Phone: [facility] 08-08-2024 15:13-0500 Body weight 80.74 kg Kavita Hardeep [employer] Work Phone: [facility] 08-08-2024 15:13-0500 Diastolic blood pressure 66 mm[Hg] Kavita Qureshi [employer] Work Phone: [facility] 08-08-2024 15:13-0500 Heart rate 120 /min Kavita Qureshi [employer] Work Phone: [facility] 08-08-2024 15:13-0500 Respiratory rate 18 /min Kavita Bryantalina JIMENEZ Work Phone: [facility] 08-08-2024 15:13-0500 SaO2% (BldA) [Mass fraction] 93 % Kavita Bryanter [employer] Work Phone: [facility] 08-08-2024 15:13-0500 Systolic blood pressure 134 mm[Hg] Kavita Bryanter [employer] Work Phone: [facility] 08-04-2024 11:44-0500 Diastolic blood pressure 84 mm[Hg] Namita Rizzo MD Work Phone: [employer] 08-04-2024 11:44-0500 Heart rate 110 /min Namita Rizzo MD Work Phone: [employer] 08-04-2024 11:44-0500 Respiratory rate 16 /min Namita Rizzo MD Work Phone: [employer] 08-04-2024 11:44-0500 SaO2% (BldA) [Mass fraction] 96 % Namita Rizzo MD Work Phone: [employer] 08-04-2024 11:44-0500 Systolic blood pressure 167 mm[Hg] Namita Rizzo MD Work Phone: [employer] 08-04-2024 10:24-0500 Body height 170.2 cm Namita Rizzo MD Work Phone: [employer] 08-04-2024 10:24-0500 Body mass index (BMI) [Ratio] 30.38 kg/m2 Namita Rizzo MD Work Phone: [employer] 08-04-2024 10:24-0500 Body temperature 97.81 [degF] Namita Rizzo MD Work Phone: [employer] 08-04-2024 10:24-0500 Body weight 88 kg Namita Rizzo MD Work Phone: [employer] 07-04-2024 14:48-0500 Diastolic blood pressure 82 mm[Hg] Kavita Bryanter [employer] Work Phone: [facility] 07-04-2024 14:48-0500 Systolic blood pressure 117 mm[Hg] Kavita Bryanter [employer] Work Phone: [facility] 07-04-2024 14:40-0500 Body height 167.64 cm Kavita Qureshi [employer] Work Phone: [facility] 07-04-2024 14:40-0500 Body mass index (BMI) [Ratio] 30.9 kg/m2 Kavita Qureshi [employer] Work Phone: [facility] 07-04-2024 14:40-0500 Body surface area Derived from formula 2 m2 Kavita Qureshi [employer] Work Phone: [facility] 07-04-2024 14:40-0500 Body temperature 98.1 [degF] Kavita Bryanter [employer] Work Phone: [facility] 07-04-2024 14:40-0500 Body weight 86.73 kg Kavita Bryanter [employer] Work Phone: [facility] 07-04-2024 14:40-0500 Diastolic blood pressure 81 mm[Hg] Kavita Bryanter [employer] Work Phone: [facility] 07-04-2024 14:40-0500 Heart rate 117 /min Kavita Qureshi [employer] Work Phone: [facility] 07-04-2024 14:40-0500 SaO2% (BldA) [Mass fraction] 94 % Kavita Bryanter [employer] Work Phone: [facility] 07-04-2024 14:40-0500 Systolic blood pressure 121 mm[Hg] Kavita Hardeep [employer] Work Phone: [facility] 06-06-2024 15:43-0500 Body height 167.64 cm Kavita Hardeep [employer] Work Phone: [facility] 06-06-2024 15:43-0500 Body mass index (BMI) [Ratio] 28.1 kg/m2 Kavita Qureshi CNP Work Phone: [facility] 06-06-2024 15:43-0500 Body surface area Derived from formula 1.9 m2 Kavita Qureshi CNP Work Phone: [facility] 06-06-2024 15:43-0500 Body temperature 98.1 [degF] Kavita Qureshi CNP Work Phone: [facility] 06-06-2024 15:43-0500 Body weight 79.11 kg Kavita Qureshi CNP Work Phone: [facility] 06-06-2024 15:43-0500 Diastolic blood pressure 78 mm[Hg] Kavita Qureshi CNP Work Phone: [facility] 06-06-2024 15:43-0500 Heart rate 112 /min Kavita Qureshi CNP Work Phone: [facility] 06-06-2024 15:43-0500 Respiratory rate 18 /min Kavita Qureshi CNP Work Phone: [facility] 06-06-2024 15:43-0500 SaO2% (BldA) [Mass fraction] 94 % Kavita Qureshi CNP Work Phone: [facility] 06-06-2024 15:43-0500 Systolic blood pressure 115 mm[Hg] Kavita Qureshi CNP Work Phone: [facility] 07-05-2022 10:20-0500 SaO2% (BldA) [Mass fraction] 95 % Talita Crouch DO Work Phone: [employer] 07-05-2022 10:18-0500 Heart rate 103 /min Talita Crouch DO Work Phone: [employer] 07-05-2022 09:30-0500 Body temperature 99.19 [degF] Talita Crouch DO Work Phone: [employer] 07-05-2022 09:30-0500 Diastolic blood pressure 73 mm[Hg] Talita [facility]ouch DO [facility] [email or web address] 07-05-2022 09:30-0500 Respiratory rate 20 /min Talita Crouch DO Work Phone: [employer] [facility] [email or web address] 07-05-2022 09:30-0500 Systolic blood pressure 167 mm[Hg] Talita Crouch DO Work Phone: [facility] [email or web address] 06-22-2022 17:40-0500 Diastolic blood pressure 58 mm[Hg] Irvin Magana MD Work Phone: [employer] [facility] 06-22-2022 17:40-0500 Heart rate 108 /min Irvin Magana MD Work Phone: [facility] 06-22-2022 17:40-0500 Respiratory rate 24 /min Irvin Magana MD Work Phone: [facility] 06-22-2022 17:40-0500 SaO2% (BldA) [Mass fraction] 99 % Irvin Magana MD Work Phone: [employer] [facility] 06-22-2022 17:40-0500 Systolic blood pressure 129 mm[Hg] Irvin Magana MD Work Phone: [facility] 06-22-2022 16:08-0500 Body temperature 97.2 [degF] Irvin Magana MD Work Phone: [facility] 06-21-2022 20:00-0500 Body height 170.2 cm Irvin Magana MD Work Phone: [employer] [facility] 06-21-2022 20:00-0500 Body mass index (BMI) [Ratio] 29.76 kg/m2 Irvin Magana MD Work Phone: [employer] [facility] 06-21-2022 20:00-0500 Body weight 86.18 kg Irvin Magana MD Work Phone: [employer] [facility] 06-21-2022 16:58-0500 SaO2% (BldA) [Mass fraction] 68.4 % Irvin Magana MD Work Phone: [employer] [facility] 04-07-2022 14:05-0400 Body height 170.2 cm Manish Shea MD Work Phone: [facility] 04-07-2022 14:05-0400 Body mass index (BMI) [Ratio] 32.72 kg/m2 Manish Shea MD Work Phone: [employer] [facility] 04-07-2022 14:05-0400 Body weight 94.8 kg Manish Shea MD Work Phone: [employer] [facility] 04-07-2022 14:05-0400 Diastolic blood pressure 88 mm[Hg] Manish Shea MD Work Phone: [employer] [facility] 04-07-2022 14:05-0400 Heart rate 112 /min Manish Shea MD Work Phone: [employer] [facility] 04-07-2022 14:05-0400 Respiratory rate 16 /min Manish Shea MD Work Phone: [employer] [facility] 04-07-2022 14:05-0400 Systolic blood pressure 126 mm[Hg] Manish Shea MD Work Phone: [employer] [facility] 02-03-2022 14:54-0400 Body mass index (BMI) [Ratio] 32.32 kg/m2 Manish Shea MD Work Phone: [employer] [facility] 02-03-2022 14:54-0400 Body weight 93.62 kg Manish Shea MD Work Phone: [employer] [facility] 02-03-2022 14:54-0400 Diastolic blood pressure 65 mm[Hg] Manish Shea MD Work Phone: [employer] [facility] 02-03-2022 14:54-0400 Heart rate 112 /min Manish Shea MD Work Phone: [employer] [facility] 02-03-2022 14:54-0400 Systolic blood pressure 141 mm[Hg] Manish Shea MD Work Phone: [facility] 12-09-2021 14:23-0400 Body height 170.2 cm Manish Shea MD Work Phone: [facility] 12-09-2021 14:23-0400 Body mass index (BMI) [Ratio] 33.04 kg/m2 Manish Shea MD Work Phone: [facility] 12-09-2021 14:23-0400 Body weight 95.71 kg Manish Shea MD Work Phone: [facility] 12-09-2021 14:23-0400 Diastolic blood pressure 80 mm[Hg] Manish Shea MD Work Phone: [facility] 12-09-2021 14:23-0400 Respiratory rate 16 /min Manish Shea MD Work Phone: [facility] 12-09-2021 14:23-0400 Systolic blood pressure 120 mm[Hg] Manish Shea MD Work Phone: [facility] 10-28-2021 13:11-0400 Body height 170.2 cm Safia Towanda [employer] Work Phone: [facility] 10-28-2021 13:11-0400 Body mass index (BMI) [Ratio] 33.88 kg/m2 Safia Anna [employer] Work Phone: [facility] 10-28-2021 13:11-0400 Body weight 98.16 kg Safia Anna [employer] Work Phone: [facility] 10-28-2021 13:11-0400 Diastolic blood pressure 80 mm[Hg] Safia Anna [employer] Work Phone: [facility] 10-28-2021 13:11-0400 Heart rate 93 /min Safia Anna [employer] Work Phone: [facility] 10-28-2021 13:11-0400 Respiratory rate 18 /min Safia Towanda [employer] Work Phone: [facility] 10-28-2021 13:11-0400 Systolic blood pressure 118 mm[Hg] Safia Castillo CNP Work Phone: [employer] 06-02-2021 12:15-0500 Diastolic blood pressure 88 mm[Hg] Kavita Hardeepalina JIMENEZ Work Phone: [facility] Work Phone: 06-02-2021 12:15-0500 Systolic blood pressure 132 mm[Hg] Kavita Qureshi CNP Work Phone: [facility] Work Phone: 06-02-2021 11:28-0500 Body height 168.91 cm Kavita Qureshi TONY Work Phone: [facility] Work Phone: 06-02-2021 11:28-0500 Body mass index (BMI) [Ratio] 31.2 kg/m2 Kavita Hardeepalina JIMENEZ Work Phone: [facility] Work Phone: 06-02-2021 11:28-0500 Body surface area Derived from formula 1.99 m2 Kavita Hardeepalina JIMENEZ Work Phone: [facility] Work Phone: 06-02-2021 11:28-0500 Body temperature 96.6 [degF] Kavita Bryantalina JIMENEZ Work Phone: [facility] Work Phone: 06-02-2021 11:28-0500 Body weight 89 kg Kavita Bryantalina JIMENEZ Work Phone: [facility] Work Phone: 06-02-2021 11:28-0500 Diastolic blood pressure 78 mm[Hg] Kavita Hardeepalina JIMENEZ Work Phone: [facility] Work Phone: 06-02-2021 11:28-0500 Heart rate 118 /min Kavita Qureshi CNP Work Phone: [facility] Work Phone: 06-02-2021 11:28-0500 SaO2% (BldA) [Mass fraction] 96 % Kavita Qureshi CNP Work Phone: [facility] Work Phone: 06-02-2021 11:28-0500 Systolic blood pressure 142 mm[Hg] Kavita Qureshi CNP Work Phone: [facility] Work Phone: 05-18-2021 16:27-0400 Body height 168.91 cm Kavita Qureshi CNP Work Phone: [facility] Work Phone: 05-18-2021 16:27-0400 Body mass index (BMI) [Ratio] 31.2 kg/m2 Kavita Qureshi CNP Work Phone: [facility] Work Phone: 05-18-2021 16:27-0400 Body surface area Derived from formula 1.99 m2 Kavita Qureshi CNP Work Phone: [facility] Work Phone: 05-18-2021 16:27-0400 Body temperature 97.6 [degF] Kavita Qureshi CNP Work Phone: [facility] Work Phone: 05-18-2021 16:27-0400 Body weight 88.91 kg Kavita Qureshi CNP Work Phone: [facility] Work Phone: 05-18-2021 16:27-0400 Diastolic blood pressure 76 mm[Hg] Kavita Qureshi CNP Work Phone: [facility] Work Phone: 05-18-2021 16:27-0400 Heart rate 120 /min Kavita Qureshi CNP Work Phone: [facility] Work Phone: 05-18-2021 16:27-0400 Respiratory rate 20 /min Kavita Qureshi CNP Work Phone: [facility] Work Phone: 05-18-2021 16:27-0400 SaO2% (BldA) [Mass fraction] 95 % Kavita Qureshi CNP Work Phone: [facility] Work Phone: 05-18-2021 16:27-0400 Systolic blood pressure 136 mm[Hg] Kavita Qureshi CNP Work Phone: [facility] Work Phone: 04-21-2021 10:31-0400 Body height 168.91 cm Kavita Qureshi CNP Work Phone: [facility] Work Phone: 04-21-2021 10:31-0400 Body mass index (BMI) [Ratio] 29.3 kg/m2 Kavita Qureshi CNP Work Phone: [facility] Work Phone: 04-21-2021 10:31-0400 Body surface area Derived from formula 1.94 m2 Kavita Qureshi CNP Work Phone: [facility] Work Phone: 04-21-2021 10:31-0400 Body temperature 97.4 [degF] Kavita Qureshi CNP Work Phone: [facility] Work Phone: 04-21-2021 10:31-0400 Body weight 83.73 kg Kavita Qureshi CNP Work Phone: [facility] Work Phone: 04-21-2021 10:31-0400 Diastolic blood pressure 76 mm[Hg] Kavita Qureshi CNP Work Phone: [facility] Work Phone: 04-21-2021 10:31-0400 Heart rate 107 /min Kavita Qureshi CNP Work Phone: [facility] Work Phone: 04-21-2021 10:31-0400 SaO2% (BldA) [Mass fraction] 96 % Kavita Qureshi CNP Work Phone: [facility] Work Phone: 04-21-2021 10:31-0400 Systolic blood pressure 124 mm[Hg] Kavita Qureshi CNP Work Phone: [facility] Work Phone: 04-16-2021 07:30-0400 Body temperature 98.01 [degF] Reji Rondon MD Work Phone: [employer] Work Phone: 04-16-2021 07:30-0400 Diastolic blood pressure 84 mm[Hg] Reji Rondon MD Work Phone: [employer] Work Phone: 04-16-2021 07:30-0400 Heart rate 99 /min Reji Rondon MD Work Phone: [employer] Work Phone: 04-16-2021 07:30-0400 Respiratory rate 16 /min Reji Rondon MD Work Phone: [employer] Work Phone: 04-16-2021 07:30-0400 SaO2% (BldA) [Mass fraction] 97 % Reji Rondon MD Work Phone: [employer] Work Phone: 04-16-2021 07:30-0400 Systolic blood pressure 164 mm[Hg] Reji Rondon MD Work Phone: [employer] Work Phone: 04-16-2021 06:00-0400 Body mass index (BMI) [Ratio] 30.62 kg/m2 Reji Rondon MD Work Phone: [employer] Work Phone: 04-16-2021 06:00-0400 Body weight 83.46 kg Reji Rondon MD Work Phone: [employer] Work Phone: 04-14-2021 08:09-0400 Body height 165.1 cm Reji Rondon MD Work Phone: [employer] Work Phone: Encounters Encounter Date Encounter Type Care Provider Facility Start: 03-03-2025 End: 03-03-2025 [facility] visit, estab pt Kavita Qureshi CNP Work Phone: [facility] Work Phone: Start: 02-26-2025 End: 02-26-2025 Emergency department patient visit Bekah Lan MD Work Phone: [facility] Emergency Department Comment on above: Dehydration (Primary Dx); Nausea and vomiting, unspecified vomiting type Start: 02-17-2025 End: 02-17-2025 ambulatory Ivana Velasquez MD Facility:[facility] Start: 01-13-2025 End: 01-13-2025 ambulatory Ivana Velasquez MD Facility:[facility] Start: 12-31-2024 End: 12-31-2024 [facility] visit, estab pt Kavita Qureshi CNP Work Phone: [facility] Work Phone: Start: 12-06-2024 End: 12-08-2024 [facility] Start: 12-06-2024 End: 12-08-2024 Subsequent hospital visit by physician [facility] [place] [facility] Comment on above: Lumbar back pain; Spondylolisthesis of thoracic region Start: 11-27-2024 End: 11-27-2024 FQ visit, estab pt Kavita Qureshi [employer] Work Phone: [facility] Work Phone: Start: 10-24-2024 End: 10-24-2024 [facility] visit, estab pt Kavita Qureshi [employer] Work Phone: [facility] Work Phone: Start: 10-17-2024 End: 10-19-2024 [facility] Start: 10-17-2024 End: 10-19-2024 Subsequent hospital visit by physician Javier Branham DO Work Phone: [facility] Non-Invasive Cardiology Comment on above: Tachycardia; Abnormal EKG; Heart murmur Start: 10-14-2024 End: 10-14-2024 [facility] Start: 10-14-2024 End: 10-14-2024 Subsequent hospital visit by physician Fabiana Reynolds [facility] Comment on above: Arrived Start: 10-11-2024 End: 10-11-2024 ambulatory [facility] Start: 10-11-2024 End: 10-11-2024 Subsequent hospital visit by physician Darren Lazo PTA [facility] Comment on above: Arrived Start: 10-08-2024 End: 10-08-2024 ambulatory [facility] Start: 10-08-2024 End: 10-08-2024 Subsequent hospital visit by physician Fabiana Reynolds PT [facility] Comment on above: Arrived Start: 09-29-2024 End: 09-29-2024 Emergency department patient visit Cris Herring MD Work Phone: [facility] Emergency Department Comment on above: Strain of lumbar reg ion, initial encounter (Primary Dx) Start: 09-19-2024 End: 09-19-2024 FQ visit, estab pt Sally Miles [employer] Work Phone: [facility] Work Phone: Start: 09-09-2024 End: 09-09-2024 Emergency department patient visit Mallory Aleman MD Work Phone: [facility] Emergency Department Comment on above: Tachycardia (Primary Dx); Mid back pain Start: 09-04-2024 End: 09-04-2024 Emergency department patient visit Mallory Aleman MD Work Phone: [facility] Emergency Department Comment on above: Dehydration (Primary Dx); Hyperglycemia due to diabetes mellitus (HCC) Start: 09-03-2024 End: 09-03-2024 Subsequent hospital visit by physician Fabiana Reynolds PT [facility] Start: 09-02-2024 End: 09-02-2024 Subsequent hospital visit by physician Fabiana Reynolds PT [facility] Start: 09-02-2024 End: 09-02-2024 Emergency department patient visit hCaim Del Toro MD Work Phone: [facility] Emergency Department Comment on above: Tachycardia (Primary Dx); Dehydration Start: 09-02-2024 End: 09-02-2024 ambulatory Kavita Qureshi [employer] Work Phone: [facility] Work Phone: Start: 08-30-2024 End: 09-01-2024 ambulatory KAVITA QURESHI [facility] Start: 08-30-2024 End: 09-01-2024 Subsequent hospital visit by physician [facility] Ul[facility]ound Comment on above: Generalized abdomina l pain Start: 08-22-2024 End: 08-22-2024 Subsequent hospital visit by physician Fabiana Reynolds PT [facility] Start: 08-21-2024 End: 08-21-2024 Emergency department patient visit Chaim Del Toro MD Work Phone: [facility] Emergency Department Comment on above: Hypotension due to h ypovolemia (Primary Dx); Tachycardia Start: 08-21-2024 End: 08-21-2024 Emergency department patient visit [facility] Start: 08-21-2024 End: 08-23-2024 ambulatory Kavita Qureshi CNP Work Phone: [facility] Non-Invasive Cardiology Comment on above: Tachycardia Start: 08-21-2024 End: 08-21-2024 Patient encounter procedure Kavita Qureshi CNP Work Phone: [facility] Work Phone: Start: 08-20-2024 End: 08-20-2024 Subsequent hospital visit by physician Junior Wayne PTA [facility] Start: 08-20-2024 ambulatory [facility] Start: 08-17-2024 End: 08-17-2024 Emergency department patient visit Lukas Lopez MD Work Phone: [facility] Emergency Department Comment on above: Strain of thoracic b ack region (Primary Dx) Start: 08-15-2024 End: 08-15-2024 [facility] Start: 08-15-2024 End: 08-15-2024 Subsequent hospital visit by physician Junior Wayne PTA [facility] Comment on above: Arrived Start: 08-13-2024 End: 08-13-2024 [facility] Start: 08-13-2024 End: 08-13-2024 Subsequent hospital visit by physician Fabiana Reynolds PT [facility] Comment on above: Arrived Start: 08-12-2024 End: 08-14-2024 [facility] Start: 08-12-2024 End: 08-14-2024 Subsequent hospital visit by physician Nevaeh Additional Xray At [facility] Radiology Comment on above: Pain in thoracic spi ne Start: 08-08-2024 End: 08-08-2024 Subsequent hospital visit by physician Samira Yoo [facility] Start: 08-08-2024 End: 08-08-2024 [facility] visit, estab pt Kavita Qureshi CNP Work Phone: [facility] Work Phone: Start: 08-08-2024 End: 08-08-2024 Patient encounter procedure Kavita Qureshi CNP Work Phone: [facility] Work Phone: Start: 08-06-2024 End: 08-06-2024 Subsequent hospital visit by physician Fabiana Reynolds PT [facility] Start: 08-04-2024 End: 08-04-2024 Emergency department patient visit Namita Rizzo MD Work Phone: [facility] Emergency Department Comment on above: Acute midline low ba ck pain without sciatica (Primary Dx) Start: 08-01-2024 End: 08-01-2024 ambulatory [facility] Start: 08-01-2024 End: 08-01-2024 Subsequent hospital visit by physician Samira Yoo [facility] Comment on above: Arrived Start: 07-30-2024 End: 07-30-2024 ambulatory [facility]INA [facility] Start: 07-30-2024 End: 07-30-2024 Subsequent hospital visit by physician Samira Yoo [facility] Comment on above: Arrived Start: 07-25-2024 End: 07-25-2024 ambulatory [facility]ALINA [facility] Start: 07-25-2024 End: 07-25-2024 Subsequent hospital visit by physician Samira Yoo [facility] Comment on above: Arrived Start: 07-18-2024 End: 07-18-2024 ambulatory [facility] Start: 07-18-2024 End: 07-18-2024 Subsequent hospital visit by physician Darren Lazo PTA [facility] Comment on above: Arrived Start: 07-16-2024 End: 07-16-2024 Subsequent hospital visit by physician Judy Miller PT [facility] Start: 07-04-2024 End: 07-04-2024 [facility] visit, estab pt Kavita Qureshi CNP Work Phone: [facility] Work Phone: Start: 06-27-2024 End: 06-27-2024 ambulatory KAVITA QURESHI [facility] Start: 06-27-2024 End: 06-27-2024 Subsequent hospital visit by physician Judy Miller PT [facility] Comment on above: Arrived Start: 06-06-2024 End: 06-06-2024 ambulatory Kavita Qureshi [employer] Work Phone: [facility] Work Phone: Start: 06-06-2024 End: 06-06-2024 Encounter for preprocedural laboratory examination Kavita Qureshi [employer] Work Phone: [facility] Work Phone: Start: 06-06-2024 End: 06-06-2024 Patient encounter procedure Kavita Qureshi CNP Work Phone: [facility] Work Phone: Start: 06-06-2024 End: 06-06-2024 General Juan Choudhary [employer] Work Phone: [facility] Work Phone: Start: 06-06-2024 End: 06-06-2024 Patient encounter procedure Kavita Qureshi CNP Work Phone: [facility] Work Phone: Start: 09-02-2022 ambulatory [facility] Start: 07-05-2022 End: 07-05-2022 Emergency department patient visit Talita Crouch DO Work Phone: [facility] ED Comment on above: Acute sinusitis, rec urrence not specified, unspecified location (Primary Dx) Start: 07-04-2022 End: 07-04-2022 Subsequent hospital visit by physician [facility] Start: 06-21-2022 End: 06-22-2022 ambulatory [facility] Start: 06-21-2022 End: 06-22-2022 Emergency department patient visit Irvin Magana MD Work Phone: [facility] Comment on above: DKA (diabetic ketoac idosis) Start: 04-07-2022 ambulatory [facility] Start: 04-07-2022 End: 04-07-2022 Office outpatient visit 25 minutes [facility]ish [facility] Comment on above: Uncontrolled type 2 diabetes mellitus with hyperglycemia (Primary Dx) Start: 03-29-2022 End: 03-29-2022 Subsequent hospital visit by physician [facility] Laboratory Start: 03-23-2022 ambulatory [facility] Start: 02-22-2022 End: 02-22-2022 Subsequent hospital visit by physician [facility] Laboratory Comment on above: Dysuria; Acute cystitis with hematuria Start: 02-03-2022 [facility]ulatory [facility] Start: 02-03-2022 End: 02-03-2022 Office outpatient visit 25 minutes Manish Shea MD [facility] Comment on above: Uncontrolled type 2 diabetes mellitus with hyperglycemia (Primary Dx) Start: 12-09-2021 ambulatory [facility] Start: 12-09-2021 End: 12-09-2021 Office outpatient visit 25 minutes Manish Shea MD [facility] Comment on above: Uncontrolled type 2 diabetes mellitus with hyperglycemia (Primary Dx) Start: 11-18-2021 ambulatory [facility] Start: 10-28-2021 ambulatory [facility] Start: 10-28-2021 End: 10-28-2021 Office outpatient visit 25 minutes Safia Castillo CNP Work Phone: [facility] Comment on above: Uncontrolled type 2 diabetes mellitus with hyperglycemia (Primary Dx); Mixed hyperlipidemia; Obesity (BMI 30.0-34.9); [place] syndrome Start: 10-11-2021 End: 10-11-2021 Subsequent hospital visit by physician [facility] Laboratory Start: 09-30-2021 ambulatory [facility] Start: 08-11-2021 End: 08-11-2021 Subsequent hospital visit by physician [facility] Start: 06-02-2021 End: 06-02-2021 [facility]QHC visit, estab pt Kavita Qureshi JEWELRY CASTING MODEL MAKER Work Phone: [facility] Work Phone: Start: 06-02-2021 End: 06-02-2021 General Kavita Qureshi JEWELRY CASTING MODEL MAKER Work Phone: [facility] Work Phone: Start: 05-18-2021 End: 05-18-2021 FQHC visit, estab pt Kavita Qureshi JEWELRY CASTING MODEL MAKER Work Phone: [facility] Work Phone: Start: 04-21-2021 End: 04-21-2021 FQHC visit, estab pt Suha Pinedo [facility] Work Phone: [facility] Work Phone: Start: 04-21-2021 End: 04-21-2021 FQHC visit new patient Kavita Qureshi CNP Work Phone: [facility] Work Phone: Start: 04-13-2021 End: 04-16-2021 Evaluation and management of inpatient Reji Rondon MD Work Phone: [address] MED SURG TELEMETRY Comment on above: Diabetic ketoacidosi s without coma associated with diabetes mellitus due to underlying condition (HCC) (Primary Dx); Type 2 diabetes mellitus with complication, without long-term current use of insulin (HCC); Nephrolithiasis Start: 02-11-2020 End: 02-13-2020 Subsequent hospital visit by physician [facility] Cat Scan Room [facility] Laboratory Comment on above: Renal colic Start: 02-11-2020 End: 02-11-2020 Subsequent hospital visit by physician [facility] Lab Drawing Room [facility] Laboratory Comment on above: Renal colic End: 02-27-2017 Patient encounter status Reji Rondon MD Work Phone: [facility] Work Phone: Procedures Date Procedure Procedure Detail Performing Clinician Start: 03-03-2025 Current tobacco non- user cad cap copd pv dm Kavita Qureshi CNP Work Phone: Start: 03-03-2025 Foot examination performed Kavita Qureshi CNP Work Phone: Start: 03-03-2025 Hemoglobin glycosylated a1c Kavita Qureshi CNP Work Phone: Start: 03-03-2025 Most recent diastoli c blood pressure < 80 mm hg Kavita Qureshi CNP Work Phone: Start: 03-03-2025 Most recent hemoglob in a1c level >9.0% Kavita Qureshi CNP Work Phone: Start: 03-03-2025 Most recent systolic blood pressure <130 mm hg Kavita Qureshi CNP Work Phone: Start: 02-26-2025 Ecg routine ecg w/le ast 12 lds w/i&r Bekah Lan MD Work Phone: Start: 02-26-2025 Comprehensive metabolic panel Bekah Lan MD Work Phone: Start: 12-31-2024 Hemoglobin glycosylated a1c Kavita Qureshi CNP Work Phone: Start: 12-31-2024 Most recent hemoglob in a1c level >9.0% Kavita Qureshi CNP Work Phone: Start: 11-27-2024 Current tobacco non- user cad cap copd pv dm Kavita Qureshi CNP Work Phone: Start: 11-27-2024 Gluc bld gluc mntr d ev cleared fda spec home use Kavita Qureshi CNP Work Phone: Start: 11-27-2024 Most recent diastoli c blood pressure < 80 mm hg Kavita Qureshi CNP Work Phone: Start: 11-27-2024 Most recent systolic blood pressure <130 mm hg Kavita Qureshi CNP Work Phone: Start: 10-24-2024 Gluc bld gluc mntr d ev cleared fda spec home use Kavita Qureshi CNP Work Phone: Start: 10-24-2024 Most recent diastoli c blood pressure < 80 mm hg Kavita Qureshi CNP Work Phone: Start: 10-24-2024 Most recent hg a1c>e qual to 8.0%& Kavita Qrueshi CNP Work Phone: Start: 10-24-2024 Most recent systolic blood pressure <130 mm hg Kavita Qureshi CNP Work Phone: Start: 09-19-2024 Current tobacco non- user cad cap copd pv dm Sally Miles CNP Work Phone: Start: 09-19-2024 Gluc bld gluc mntr d ev cleared fda spec home use Sally Miles CNP Work Phone: Start: 09-19-2024 Most recent diastoli c blood pressure < 80 mm hg Sally Miles CNP Work Phone: Start: 09-19-2024 Most recent hemoglob in a1c level >9.0% Sally Miles CNP Work Phone: Start: 09-19-2024 Most recent systolic blood pressure <130 mm hg Sally Miles CNP Work Phone: Start: 09-09-2024 Ecg routine ecg w/le ast 12 lds w/i&r Mallory Aleman MD Work Phone: Start: 09-09-2024 Radiologic exam chest 2 views Mallory Aleman MD Work Phone: Start: 09-09-2024 Basic metabolic pane l calcium total Mallory Aleman MD Work Phone: Start: 09-04-2024 Urnls dip stick/tabl et rgnt auto w/o microscopy Mallory Aleman MD Work Phone: Start: 09-04-2024 End: 09-04-2024 Comprehensive metabolic panel Mallory Fallon MD Work Phone: Start: 09-04-2024 Ecg routine ecg w/le ast 12 lds w/i&r Mallory Aleman MD Work Phone: Start: 09-02-2024 Ct abdomen & pelvis w/o contrast material Chaim Del Toro MD Work Phone: Start: 09-02-2024 Ct thorax w/o contra st material Chaim Del Toro MD Work Phone: Start: 09-02-2024 Assay of troponin quantitative Chaim Del Toro MD Work Phone: Start: 09-02-2024 LACTATE, SEPSIS Chaim Del Toro MD Work Phone: Start: 09-02-2024 Urinalysis microscopic only Chaim Del Toro MD Work Phone: Start: 09-02-2024 Urnls dip stick/tabl et rgnt auto w/o microscopy Chaim Del Toro MD Work Phone: Start: 09-02-2024 Basic metabolic pane l calcium total Chaim Del Toro MD Work Phone: Start: 09-02-2024 Hepatic function panel Chaim Del Toro MD Work Phone: Start: 09-02-2024 LACTATE, SEPSIS Chaim Del Toro MD Work Phone: Start: 09-02-2024 Ecg routine ecg w/le ast 12 lds w/i&r Chaim Del Toro MD Work Phone: Start: 09-02-2024 Current tobacco non- user cad cap copd pv dm Kavita Qureshi CNP Work Phone: Start: 09-02-2024 Most recent diastoli c blood pressure < 80 mm hg Kavita Qureshi JEWELRY CASTING MODEL MAKER Work Phone: Start: 09-02-2024 Most recent systolic blood pressure <130 mm hg Kavita Qureshi CNP Work Phone: Start: 08-30-2024 Us retroperitoneal r eal time w/image complete Kavita Qureshi PATIENT TRANSPORT OFFICER - DOUBLE HEAD 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 Work Phone: Start: 08-21-2024 Drug tst prsmv instr mnt chem analyzers pr date Ame Saldana DO Work Phone: Start: 08-21-2024 Urnls dip stick/tabl et rgnt auto w/o microscopy Chaim Del Toro MD Work Phone: Start: 08-21-2024 Radiologic exam ches t single view Chaim Del Toro MD Work Phone: Start: 08-21-2024 End: 08-21-2024 Basic metabolic panel calcium total Chaim Del Toro MD Work Phone: Start: 08-21-2024 Hepatic function panel Chaim Del Toro MD Work Phone: Start: 08-21-2024 LACTATE, SEPSIS Chaim Del Toro MD Work Phone: Start: 08-21-2024 Ecg routine ecg w/le ast 12 lds w/i&r Chaim Del Toro MD Work Phone: Start: 08-21-2024 Current tobacco non- user cad cap copd pv dm Kavita Qureshi CNP Work Phone: Start: 08-21-2024 Most recent diastoli c blood pressure < 80 mm hg Kavita Qureshi CNP Work Phone: Start: 08-21-2024 Most recent systolic blood pressure <130 mm hg Kavita Qureshi CNP Work Phone: Start: 08-12-2024 End: 08-12-2024 Radex spine cervical 4 or 5 views Kavita Qureshi PATIENT TRANSPORT OFFICER - DOUBLE HEAD 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 Work Phone: Start: 08-08-2024 Creatinine other source Kavita Qureshi CNP Work Phone: Start: 08-08-2024 Current tobacco non- user cad cap copd pv dm Kavita Qureshi JEWELRY CASTING MODEL MAKER Work Phone: Start: 08-08-2024 Drug test prsmv read direct optical obs pr date Kavita Qureshi CNP Work Phone: Start: 08-08-2024 Ketorolac tromethamine inj Kavita Qureshi CNP Work Phone: Start: 08-08-2024 Most recent diastoli c blood pressure < 80 mm hg Kavita Qureshi CNP Work Phone: Start: 08-08-2024 Most recent systolic blood press 130-139mm hg Kavita Qureshi CNP Work Phone: Start: 08-08-2024 Therapeutic prophyla ctic/dx injection subq/im Kavita Qureshi CNP Work Phone: Start: 08-08-2024 Urine albumin quantitative Kavita Qureshi CNP Work Phone: Start: 08-08-2024 Urnls dip stick/tabl et rgnt non-auto w/o micrscp Kavita Qureshi CNP Work Phone: Start: 07-04-2024 Current tobacco non- user cad cap copd pv dm Kavita Qureshi CNP Work Phone: Start: 07-04-2024 Hemoglobin glycosylated a1c Kavita Qureshi CNP Work Phone: Start: 07-04-2024 Most recent diastoli c blood pressure 80-89 mm hg Kavita Qureshi CNP Work Phone: Start: 07-04-2024 Most recent hemoglob in a1c level >9.0% Kavita Qureshi CNP Work Phone: Start: 07-04-2024 Most recent systolic blood pressure <130 mm hg Kavita Qureshi CNP Work Phone: Start: 06-06-2024 Current tobacco non- user cad cap copd pv dm Kavita Qureshi CNP Work Phone: Start: 06-06-2024 Most recent diastoli c blood pressure < 80 mm hg Kavita Qureshi CNP Work Phone: Start: 06-06-2024 Most recent systolic blood pressure <130 mm hg Kavita Qureshi CNP Work Phone: Start: 07-05-2022 Gluc bld gluc mntr d ev cleared fda spec home use Talita Crouch DO Work Phone: Start: 07-04-2022 Comprehensive metabolic panel Manish Shea MD Work Phone: Start: 07-04-2022 Lipid panel Manish granados MD Work Phone: Start: 07-04-2022 PATIENT FASTING? Manish Shea MD Work Phone: Start: 07-04-2022 Urine albumin quantitative Manish Shea MD Work Phone: Start: 06-22-2022 End: 06-22-2022 Renal function panel Brijesh Foster [email or web address] PATIENT TRANSPORT OFFICER-JEWELRY CASTING MODEL MAKER Work Phone: Start: 06-22-2022 End: 06-22-2022 Renal function panel Brijesh Taveras PATIENT TRANSPORT OFFICER-JEWELRY CASTING MODEL MAKER Work Phone: Start: 06-22-2022 Gluc bld gluc [...] with white cell differential, automated Brijesh Taveras PATIENT TRANSPORT OFFICER-JEWELRY CASTING MODEL MAKER Work Phone: Start: 06-22-2022 End: 06-22-2022 Renal [...] ev cleared fda spec home use Kavita Qureshi CNP Work Phone: Start: 05-18-2021 FQHC visit, estab pt Ca alicialay Hardeep JIMENEZ Work Phone: Start: 05-18-2021 Gluc bld gluc mntr d ev cleared fda spec home use Kavita Qureshi CNP Work Phone: Start: 05-18-2021 Most recent diastoli c blood pressure 80-89 mm hg Kavita Qureshi CNP Work Phone: Start: 05-18-2021 Most recent systolic blood press 130-139mm hg Kavita Qureshi CNP Work Phone: Start: 04-21-2021 Antibody hiv-1&hiv-2 single result Kavita Qureshi CNP Work Phone: Start: 04-21-2021 Foot examination performed Kavita Qureshi CNP Work Phone: Start: 04-21-2021 FQHC visit new patient Kavita Qureshi CNP Work Phone: Start: 04-21-2021 Gluc bld gluc mntr d ev cleared fda spec home use Kavita Hardeep JEWELRY CASTING MODEL MAKER Work Phone: Start: 04-21-2021 Most recent diastoli c blood pressure < 80 mm hg Kavita Qureshi JEWELRY CASTING MODEL MAKER Work Phone: Start: 04-21-2021 Most recent systolic blood pressure <130 mm hg Kavita Qureshi JEWELRY CASTING MODEL MAKER Work Phone: Start: 04-21-2021 Urine albumin semiquantitative Kavita Qureshi JEWELRY CASTING MODEL MAKER Work Phone: Start: 04-16-2021 End: 04-16-2021 Basic [...] ev cleared fda spec home use Roverto Barboru MD Work Phone: Start: 04-14-2021 End: 04-14-2021 [...] 2d w/ wom-mode compl spec&colr d Roverto Brabour MD Work Phone: Start: 04-14-2021 End: 04-14-2021 [...] use Roverto Barbour MD Work Phone: Start: Gluc bld gluc mntr d ev cleared [...] ev cleared fda spec home use Roverto Back MD Work Phone: Start: 04-13-2021 Ecg routine [...] 04-13-2021 End: 04-13-2021 Hemoglobin glycosylated a1c Roverto Maxwell Work Phone: Start: 04-13-2021 Ct abdomen & pelvis w/o contrast material Reji Rondon MD Work Phone: Start: 02-11-2020 Ct abdomen & pelvis w/o contrast material Rosangela Foster [employer] Work Phone: Start: 02-11-2020 Basic metabolic pane l calcium total Rosangela Foster [employer] Work Phone: Start: 02-11-2020 Blood count complete auto&auto difrntl wbc Rosangela Foster [employer] Work Phone: Start: 02-11-2020 Urnls dip stick/tabl et reagent auto microscopy Rosangela Foster [employer] Work Phone: Start: 10-23-2018 Microscopic observat ion [Identifier] in Cervix by Cyto stain Reji Rondon MD Work Phone: Plan of Treatment Date Care Activity Detail Author Start: 02-26-2026 GFR test (Diabetes, CKD 3-4, OR last GFR 15-59) GFR test (Diabetes, CKD 3-4, OR last GFR 15-59) [facility] Start: 09-09-2025 GFR test (Diabetes, CKD 3-4, OR last GFR 15-59) GFR test (Diabetes, CKD 3-4, OR last GFR 15-59) [facility] Start: 09-04-2025 GFR test (Diabetes, CKD 3-4, OR last GFR 15-59) GFR test (Diabetes, CKD 3-4, OR last GFR 15-59) [facility] Start: 09-02-2025 GFR test (Diabetes, CKD 3-4, OR last GFR 15-59) GFR test (Diabetes, CKD 3-4, OR last GFR 15-59) [facility] Start: 09-02-2025 Screening for malignant neoplasm of lung Lung Cancer Screening &/or Counseling [facility] Start: 08-21-2025 GFR test (Diabetes, CKD 3-4, OR last GFR 15-59) GFR test (Diabetes, CKD 3-4, OR last GFR 15-59) [facility] Start: 03-03-2025 End: 03-03-2025 Patient education based on identified need [facility] Start: 02-14-2025 Influenza vaccination [facility] Start: 01-27-2025 End: 01-27-2025 Patient encounter procedure 01/27/2025 9:20 AM EDT Office Visit [facility] [address] [place] [address] Waylon Moy MD [address] [place] [address] [place] [address] Postherpetic polyneuropathy [facility] Comment on above: Postherpetic polyneuropathy Start: 12-31-2024 FQHC visit, estab pt Medical Established Patient [facility] Work Phone: Start: 12-31-2024 End: 12-31-2024 Patient education based on identified need [facility] Start: 11-27-2024 [facility] Work Phone: Comment on above: Note: Please make a referral to: Start: 11-27-2024 End: 11-27-2024 Patient education based on identified need [facility] Start: 11-21-2024 FQHC visit, estab pt Medical Established Patient [facility] Work Phone: Start: 11-19-2024 End: 11-19-2024 Patient encounter procedure 11/19/2024 11:00 AM EDT Office Visit [facility] [employer]der [address] [place] [id number] Javier Branham DO [address] [place] [address] 6 week f/u no testing [facility] [employer] Comment on above: 6 week f/u no testing Start: 10-24-2024 End: 10-24-2024 Patient education based on identified need [facility] Start: 10-17-2024 End: 10-17-2024 Patient encounter procedure 10/17/2024 10:00 AM EDT Appointment [facility] [address] [place] [address] Javier Branham DO [address] [facility] [place] [address] EPIC//PT [facility] Comment on above: EPIC//PT Start: 10-14-2024 End: 10-14-2024 Patient encounter procedure 10/14/2024 10:30 AM EDT Appointment [facility] [address] [facility] [place] [address] Fabiana Reynolds, PT *[employer]aresource 9 of 30 Muscle Weakness [facility] Comment on above: *[employer] 9 of 30 Muscle Weakness Start: 10-11-2024 End: 10-11-2024 Patient encounter procedure 10/11/2024 10:30 AM EDT Appointment [facility] [address] [place] [address] Darren Lazo SALES AND MANAGEMENT TRAINEE *[employer]ource 8 of 30 Muscle Weakness [facility] Comment on above: *[employer] 8 of 30 Muscle Weakness Start: 10-01-2024 End: 10-01-2024 Patient encounter procedure 10/01/2024 10:30 AM EDT Office Visit [facility] [employer] [address] [place] [id number] Javier Branham DO [address] [place] [address] New patient--Referral from [facility] and [facility] ED --Elevated BP, tachycardia, --(saw Dr. 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 (Renal/Bladder) (02824) [facility] Start: 09-19-2024 End: 09-19-2024 Patient education based on identified need [facility] Start: 09-18-2024 US Retroperitoneal Compl. (Renal/Bladder) (22161) [facility] Start: 09-10-2024 FQHC visit, estab pt Medical Established Patient [facility] Work Phone: Start: 09-07-2024 [facility] Start: 09-04-2024 FQHC visit, estab pt Medical Established Patient [facility] Work Phone: Start: 09-03-2024 End: 09-03-2024 Patient encounter procedure [facility] Comment on above: *Caresource 8 of 30 Muscle Weakness *[employer] 7 of 30 Muscle Weakness Start: 09-02-2024 End: 09-02-2024 Patient encounter procedure 09/02/2024 2:00 PM EST Appointment [facility] [address] [place] [address] Fabiana Reynolds, PT *[employer]aresource 7 of 30 Muscle Weakness [facility] Comment on above: *[employer] 7 of 30 Muscle Weakness Start: 09-02-2024 End: 09-02-2024 Patient education based on identified need [facility] Start: 09-02-2024 Open Access - Established [facility] Work Phone: Start: 08-29-2024 End: 08-29-2024 Patient encounter procedure 08/29/2024 1:00 PM EST Appointment [facility] [address] [place] [address] media/pt [facility] Comment on above: media/pt Start: 08-22-2024 End: 08-22-2024 Patient encounter procedure [facility] Comment on above: *Caresource 8 of 30 Muscle Weakness *[employer] 7 of 30 Muscle Weakness Start: 08-21-2024 End: 08-21-2024 Patient education based on identified need [facility] Start: 08-20-2024 End: 08-20-2024 Patient encounter procedure [facility] Comment on above: *Caresource 7 of 30 Muscle Weakness Start: 08-15-2024 End: 08-15-2024 Patient encounter procedure 08/15/2024 1:30 PM EST Appointment [facility] [address] [place] [address] Junior Wayne PTA [facility] Start: 08-15-2024 Subsequent hospital visit by physician 08/15/2024 1:30 PM EST Hospital Encounter [facility] [address] [place] [address] Junior Wayne PTA [facility] Start: 08-13-2024 End: 08-13-2024 Patient encounter procedure 08/13/2024 3:30 PM EST Appointment [facility] [address] [place] [address] Fabiana Reynolds, PT *Caresource 5 of 30 Muscle Weakness [facility] Comment on above: *[employer]aresource 5 of 30 Muscle Weakness Start: 08-08-2024 End: 08-08-2024 Patient education based on identified need [facility] Start: 08-08-2024 FQ visit, estab pt [facility] Comment on above: Note: Please make a referral to:[facility] renetta [facility]yva Start: 08-08-2024 End: 08-08-2024 Patient encounter procedure [facility] Comment on above: *Caresource 6 of 30 Muscle Weakness Start: 08-06-2024 End: 08-06-2024 Patient encounter procedure [facility] Comment on above: *Caresource 5 of 30 Muscle Weakness Start: 08-01-2024 End: 08-01-2024 Patient encounter procedure [facility] Comment on above: *Caresource 4 of 30 Muscle Weakness Start: 07-30-2024 End: 07-30-2024 Patient encounter procedure 07/30/2024 1:45 PM EST Appointment [facility] [address] [place] [address] Samira Yoo [facility] Start: 07-25-2024 End: 07-25-2024 Patient encounter procedure 07/25/2024 1:30 PM EST Appointment [facility] [address] [place] [address] Samira Yoo [facility] Start: 07-04-2024 FQ visit, estab pt Medical Established Patient [facility] Work Phone: Start: 07-04-2024 End: 07-04-2024 Patient education based on identified need [facility] Start: 07-04-2024 End: 07-04-2024 Patient encounter procedure 07/04/2024 1:45 PM EST Appointment [facility] [address] [place] [address] Judy Miller, PT Muscle Weakness [facility] Comment on above: Muscle Weakness Start: 07-02-2024 End: 07-02-2024 Patient encounter procedure 07/02/2024 1:00 PM EST Appointment [facility] [address] [place] [address] Chandni Julien Muscle Weakness [facility] Comment on above: Muscle Weakness Start: 06-06-2024 End: 06-06-2024 Patient education based on identified need [facility] Start: 06-06-2024 CBC W Auto Differential panel - Blood [facility] Comment on above: Note: Please make a referral to:PT [facility] Fax [phone] Note: Please make a referral to:Dr. Michael Hsieh Start: 06-06-2024 Thyrotropin [Units/volume] in Serum or Plasma TSH+Free T4 [facility] Start: 03-17-2024 COVID-19 Vaccine ( season) COVID-19 Vaccine () [facility] Start: 03-17-2024 COVID-19 Vaccine () COVID-19 Vaccine () [facility] Start: 02-15-2024 Influenza vaccination Flu vaccine (#1) [facility] Start: 10-24-2023 Screening for malignant neoplasm of cervix Cervical cancer screen [place] Start: 07-04-2023 GFR test (Diabetes, CKD 3-4, OR last GFR 15-59) GFR test (Diabetes, CKD 3-4, OR last GFR 15-59) [facility] Start: 07-04-2023 Hemoglobin A1c measurement A1C test (Diabetic or Prediabetic) [facility] Start: 07-04-2023 Lipid panel Lipids [facility] Start: 07-04-2023 Urine screening for protein [facility] Start: 03-29-2023 Lipid panel Lipids [facility] Start: 03-29-2023 Urine screening for protein [facility]abetic [facility]in[facility] Start: 10-08-2022 Creatinine measurement Creatinine monitoring [facility] Start: 10-08-2022 Lipid panel [facility] Start: 10-08-2022 Potassium monitoring Potassium monitoring [facility] Start: 10-08-2022 Urine screening for protein Diabetic microalbuminuria test [facility] Start: 10-02-2022 Hemoglobin A1c measurement A1C test (Diabetic or Prediabetic) [facility] Start: 07-07-2022 End: 07-07-2022 Patient encounter procedure 07/07/2022 Office Visit Endocrinology, Diabetes & Metabolism Manish Shea MD [address] [place] [address] [facility]inology Start: 06-28-2022 Hemoglobin A1c measurement A1C test (Diabetic or Prediabetic) [facility] Start: 04-16-2022 Creatinine measurement Creatinine monitoring [facility] Start: 04-16-2022 Potassium monitoring Potassium monitoring [facility] Start: 04-07-2022 End: 04-07-2022 Patient encounter procedure 04/07/2022 Office Visit Endocrinology, Diabetes & Metabolism Manish Shea MD [address] [place] [address] [facility] Start: 03-17-[address] [facility] Start: 02-14-2022 Influenza vaccination Flu vaccine (#1) [facility] Start: 02-03-2022 End: 02-03-2022 Patient encounter procedure 02/03/2022 Office Visit Endocrinology, Diabetes & Metabolism Manish Shea MD [address] [place] [address] [facility] Endocrinology Start: 01-08-2022 Hemoglobin A1c measurement A1C test (Diabetic or Prediabetic) [facility] Start: 12-09-2021 End: 12-09-2021 Patient encounter procedure 12/09/2021 Office Visit Endocrinology, Diabetes & Metabolism Manish Shea MD [address] [place] [address] [facility] Endocr[facility]ology Start: 10-28-2021 End: 10-28-2022 CORTISOL CORTISOL Lab Routine Alisia syndrome Expected: 10/28/2021, Expires: 10/28/2022 [facility] Comment on above: Expected: 10/28/2021, Expires: Start: 10-23-2021 Screening for malignant neoplasm of cervix [facility] Start: 07-14-2021 Hemoglobin A1c measurement A1C test (Diabetic or Prediabetic) [facility] Start: 07-02-2021 Other Diagnostic Test: [facility] Start: 06-30-2021 FQHC visit, estab pt Medical Established Patient [facility] Work Phone: Start: 06-02-2021 FQHC visit, estab pt Medical Established Patient [facility] Work Phone: Start: 06-02-2021 End: 06-02-2021 Patient education based on identified need [facility] Start: 05-21-2021 Cardiovascular Stress Test (45342) [facility] Start: 05-18-2021 End: 05-18-2021 Patient education based on identified need [facility] Start: 05-18-2021 End: 05-18-2021 Provider instructions for treatment Maintain a healthy diet [facility] Start: 05-05-2021 FQHC visit, estab pt Medical Established Patient [facility] Work Phone: Start: 04-23-2021 End: 04-23-2021 Patient encounter procedure 04/23/2021 Office Visit Urology Mason Monterroso MD [address] [place] [address], [address] [place] [address] [facility] Start: 04-22-2021 [facility] Start: 04-21-2021 Endocrinology [facility] Work Phone: Comment on above: Note: Please make a referral to:[facility] Start: 04-21-2021 End: 04-21-2021 Patient education based on identified need [facility] Start: 04-21-2021 End: 04-21-2021 Provider instructions for treatment Maintain a healthy diet [facility] Start: 03-17-2021 Influenza vaccination Flu vaccine (#1) [facility] Start: 02-24-2021 Screening for malignant neoplasm of cervix HPV (without or with Pap) [facility] Start: 03-17-2020 Influenza vaccination Flu vaccine (#1) [facility] [place] Start: 03-04-2020 End: 03-04-2020 Office Visit 03/04/2020 Office Visit General Surgery Robyn Coronado I, DO [address] [facility] [address] [place] [address] [facility] Start: 10-18-2019 HbA1c (Bld) [Mass fraction] A1C test (Diabetic or Prediabetic) [facility] [place] Start: 06-16-2019 Diabetic microalbuminuria test Diabetic microalbuminuria test [facility] [place] Start: 06-16-2019 Lipid panel [email or web address] Start: 06-16-2019 Urine screening for protein Diabetic microalbuminuria test [email or web address] Start: 02-28-2018 Diabetic foot examination Diabetic foot exam [email or web address] Start: 01-04-2018 Screening for malignant neoplasm of breast Breast cancer screen [email or web address] Start: 01-04-2018 Screening for malignant neoplasm of colon Colon cancer screen colonoscopy [facility] [place] Start: 01-04-2018 Screening for malignant neoplasm of lung [email or web address] Start: 01-04-2018 Shingles Vaccine (1 of 2) Shingles Vaccine (1 of 2) [email or web address] Start: 01-04-2018 Zoster vaccine hzv live for subcutaneous use ZOSTER (SHINGLES) VACCINE (1 of 2) [facility] [employer] [facility] Start: 10-22-2016 Screening for malignant neoplasm of breast Breast cancer screen [facility] [employer] Start: 10-15-2014 Diabetic retinal exam Diabetic retinal exam [email or web address] Start: 10-15-2014 Glaucoma screening Diabetic retinal exam [facility] [employer] Start: 01-04-2013 Colonoscopy COLORECTAL CANCER SCREENING DISCUSSION [employer] [facility] Start: 01-04-2013 Screening for malignant neoplasm of colon [facility] Start: 2008 Fasting lipid profile LIPID SCREENING [facility] Start: 2008 Lipid panel LIPID SCREENING [facility] Start: 2008 Screening for malignant neoplasm of breast MAMMOGRAM SCREENING DISCUSSION [facility] Start: 2008 Screening mammography MAMMOGRAM SCREENING DISCUSSION [facility] Start: 01-04-1989 Screening for malignant neoplasm of cervix [facility] Start: 01-04-1987 DTaP/Tdap/Td vaccine (1 - Tdap) DTaP/Tdap/Td vaccine (1 - Tdap) [facility] Start: 01-04-1987 Hepatitis B vaccine (1 of 3 - 19+ 3-dose series) Hepatitis B vaccine (1 of 3 - 19+ 3-dose series) [facility] Start: 01-04-1987 Hepatitis B vaccine (1 of 3 - Risk 3-dose series) Hepatitis B vaccine (1 of 3 - Risk 3-dose series) [facility] Start: 01-04-1987 Pneumococcal 50+ years Vaccine (1 of 2 - PCV) Pneumococcal 50+ years Vaccine (1 of 2 - PCV) [facility] Start: 01-04-1987 Third diphtheria, tetanus and acellular pertussis (DTaP) vaccination TDAP (ADULT) [facility] Start: 01-04-1986 Tetanus vaccination [facility] Start: 01-04-1983 HIV screening HIV SCREENING DISCUSSION [facility] Start: 1980 COVID-19 Vaccine (1) COVID-19 Vaccine (1) [facility] Work Phone: Start: 1980 Depression Screen Depression Screen [facility] Start: 01-04-1974 Pneumococcal 0-64 years Vaccine (1 - PCV) Pneumococcal 0-64 years Vaccine (1 - PCV) [facility] Start: 01-04-1974 Pneumococcal 0-64 years Vaccine (1 of 1 - PPSV23) Pneumococcal 0-64 years Vaccine (1 of 1 - PPSV23) [place] Start: 01-04-1974 Pneumococcal 0-64 years Vaccine (1 of 2 - PCV) Pneumococcal 0-64 years Vaccine (1 of 2 - PCV) [facility] Start: 01-04-1974 Pneumococcal 0-64 years Vaccine (1 of 2 - PPSV23) Pneumococcal 0-64 years Vaccine (1 of 2 - PPSV23) [facility] Start: 01-04-1973 COVID-19 VACCINE (#1) COVID-19 VACCINE (#1) [facility] Start: 01-04-1973 COVID-19 Vaccine (1) COVID-19 Vaccine (1) [facility] Start: 1968 COVID-19 VACCINE (#1) COVID-19 VACCINE (#1) [facility] Start: 1968 Hepatitis C antibody, confirmatory test HEPATITIS C VIRUS SCREENING [facility] Start: 1968 Hepatitis C screening HEPATITIS C VIRUS SCREENING [facility] Start: 1968 Tetanus vaccination [facility] End: 08-11-2021 C-Peptide [employer] Work Phone: Comment on above: Once for 1 Occurrences starting 08/11/19 until 08/11/2021 C-PEPTIDE C-PEPTIDE Lab Ro utine Uncontrolled type 2 diabetes mellitus with hyperglycemia Ordered: 02/03/2022 [facility] Comment on above: Ordered: 02/03/2022 End: 04-14-2021 Clostridium Difficile Toxin/Antigen Clostridium Difficile Toxin/Antigen Microbiology Routine 48 HRS for 48 Hours starting 04/14/2021 until 04/14/2021 [employer] Phone: Comment on above: 48 HRS for 48 Hours starting 03/18 until 04/14/2021 Complete blood count with white cell differential, automated CBC, EDIF, PLATELET Lab Routine Uncontrolled type 2 diabetes mellitus with hyperglycemia Ordered: 02/03/2022 [facility] Comment on above: Ordered: 02/03/2022 Comprehensive metabo lic 2000 panel - Serum or Plasma COMPREHENSIVE METABOLIC PANEL Lab Routine Uncontrolled type 2 diabetes mellitus with hyperglycemia Ordered: 02/03/2022 [facility] Comment on above: Ordered: 02/03/2022 CT Chest WO contrast CT CHEST WO CONTRAST Imaging STAT 09/02/2024 5:54 PM EST [employer] End: 08-21-2024 Culture, Blood 1 [employer] Comment on above: One Time for 1 Occurrences starting 11/2024 until 08/21/2024 End: 09-02-2024 Culture, Blood 2 [employer] Work Phone: Comment on above: One Time for 1 Occurrences starting 08/17 until 09/02/2024 End: 02-11-2020 Culture, Urine Culture, Urine Microbiology Routine Renal colic 1 Occurrences starting 02/11/2020 until 02/11/2020 [facility] [place] Comment on above: 1 Occurrences starting 02/11/2020 until 02/11/2020 Culture, Urine Culture, Urine Microbiology Routine Renal colic 02/11/2020 9:20 AM EDT [facility]- [place], [place] End: 02-22-2022 Culture, Urine [facility] Work Phone: Comment on above: 1 Occurrences starting 02/22/2022 until 02/22/2022 End: 10-17-2024 Echo (TTE) complete (PRN contrast/bubble/strain/3 D) [employer] Comment on above: 1 Occurrences starting 10/17/2024 until 10/17/2024 EKG 12 Lead EKG 12 Lead ECG Routine 09/02/2024 2:12 PM EST [employer] EKG 12 Lead EKG 12 Lead ECG STAT 09/04/2024 8:24 AM EST [employer] EKG 12 Lead EKG 12 Lead ECG STAT 02/26/2025 1:20 PM EDT [employer] End: 08-21-2024 Extended cardiac holter monitor (3 day-14 day) Extended cardiac holter monitor (3 day-14 day) [facility] Routine One Time for 1 Occurrences starting 08/21/2024 until 08/21/2024 [employer] Comment on above: One Time for 1 Occurrences starting 11/2024 until 08/21/2024 End: 08-22-2024 Extended cardiac holter monitor (3 days-14 day) [employer] Work Phone: Comment on above: 1 Occurrences starting 08/22/2024 until 08/22/2024 Glucose [Mass/volume ] in Serum or Plasma [employer] Phone: Comment on above: 4X Daily (AC & HS) until discontinued st arting 04/14/2021 As Needed until disc ontinued starting 04/14/2021 Hemoglobin A1c/Hemoglobin.total in Blood HEMOGLOBIN A1C Lab Routine Uncontrolled type 2 diabetes mellitus with hyperglycemia Ordered: 02/03/2022 [employer] [facility] Comment on above: Ordered: 02/03/2022 INSULIN INSULIN Lab Rout ine Uncontrolled type 2 diabetes mellitus with hyperglycemia Ordered: 02/03/2022 [employer] [facility] Comment on above: Ordered: 02/03/2022 End: 08-21-2024 Lactate, Sepsis Lactate, Sepsis Lab Timed Every 2 Hours (Lab) for 2 Occurrences starting 08/21/2024 until 08/21/2024, 1 completed [employer] Phone: Comment on above: Every 2 Hours (Lab) for [address] rah 08/21/2024 until 08/21/2024, 1 completed End: 08-11-2021 Lipid panel [employer] [facility]: Comment on above: Once for 1 Occurrences starting 08/11/19 until 08/11/2021 LIPID PANEL W CALCUL ATED LDL LIPID PANEL W CALCULATED LDL Lab Routine Uncontrolled type 2 diabetes mellitus with hyperglycemia Ordered: 02/03/2022 [employer] [facility] Comment on above: Ordered: 02/03/2022 End: 03-29-2022 Microalbumin, Ur [facility] Work Phone: Comment on above: Once for 1 Occurrences starting 03/29/20 until 03/29/2022 MICROALBUMIN/CREATIN INE RATIO MICROALBUMIN/CREATININE RATIO Fluids Routine Uncontrolled type 2 diabetes mellitus with hyperglycemia Ordered: 02/03/2022 [employer] [facility] Comment on above: Ordered: 02/03/2022 End: 12-06-2024 MR Lumbar spine WO contrast [employer] Comment on above: 1 Occurrences starting 12/06/2024 until 12/06/2024 Oxygen therapy [[facility] Data Set] Initiate Oxygen Therapy Protocol Respiratory Care Routine Daily until discontinued starting 04/13/2021 [employer]: Comment on above: Daily until discontinued starting 2020 End: 04-13-2021 pH, venous pH, venous Lab STAT One Time for 1 Occurrences starting 04/13/2021 until 04/13/2021 [employer] Phone: Comment on above: One Time for 1 Occurrences starting 03/18 until 04/13/2021 pH, venous pH, venous Lab S TAT 04/13/2021 7:35 PM EDT [employer]: End: 10-10-2021 Salivary Cortisol [facility] Comment on above: Once for 1 Occurrences starting 10/11/19 until 10/10/2021 Standard ECG ECG ECG STAT 12/2021 3:[address] [facility] End: 02-26-2025 Thyroxine (T4) free [Mass/volume] in Serum or Plasma [facility] Comment on above: One Time for 1 Occurrences starting 02/14 until 02/26/2025 End: 08-04-2024 XR Lumbar spine 4 Views [facility] Comment on above: Once for 1 Occurrences starting 08/04/19 until 08/04/2024 Immunizations Immunization Date Immunization Notes Care Provider Jeff francisco 12-15-2004 measles, mumps and r ubella virus vaccine [facility] [place] 02-09-2001 measles, mumps and r ubella virus vaccine [facility] Payers Date Payer Category Payer Unknown [id number] 2014 Unknown [employer] [facility] [employer] [id number] 2014-Present [phone] CLAIMS DEPARTMENT [address] [place] [address] [id number]. [id number] 2014 Unknown [id number] 1.2.840.375733.1.13.239.2. [id number] 2014 Unknown [id number] 2.16.840.1.656674.3.140.1. 15075.5.10.6.3 1968 Unknown [id number] 2.16.840.1.370101.3.579.2. 983 1968 Unknown [id number] 2.16.840.1.052833.3.579.2. 983 1968 Unknown [id number] 2.16.840.1.745187.3.579.2. 983 1968 Unknown [id number] 2.16.840.1.438737.3.579.2. 983 1968 Unknown [id number] 2.16.840.1.874409.3.579.2. 983 1968 Unknown [id number] 2.16.840.1.022494.3.579.2. 983 1968 Unknown [id number] 2.16.840.1.845655.3.579.2. 983 1968 Unknown [id number] 2.16.840.1.575564.3.579.2. 983 1968 Unknown [id number] 2.16.840.1.720984.3.579.2. 983 1968 Unknown [id number] 2.16.840.1.727745.3.579.2. 173 1968 Unknown [id number] 2.840.1.642169.3.579.2. 173 1968 Unknown [id number] 2.16840.1.275120.3.579.2. 173 1968 Unknown [id number] 2.16840.1.033452.3.579.2. 173 1968 Unknown [id number] 2.16840.1.810936.3.579.2. 174 1968 Unknown [id number] 2.16840.1.334317.3.579.2. 174 1968 Unknown [id number] 2.16.840.1.168011.3.579.2. 174 1968 Unknown [id number] 2.16.840.1.656233.3.579.2. 174 1968 Unknown [id number] 2.16.840.1.026325.3.579.2. 174 1968 Unknown [id number] 2.16.840.1.738753.3.579.2. 174 1968 Unknown [id number] 2.16840.1.873470.3.579.2. 174 1968 Unknown [id number] 2.16.840.1.017951.3.579.2. 174 1968 Unknown [id number] 2.16.840.1.594626.3.579.2. 174 1968 Unknown [id number] 2.16.840.1.358224.3.579.2. 174 1968 Unknown [id number] 2.16.840.1.891702.3.579.2. 174 1968 Unknown [id number] 2.16.840.1.326879.3.579.2. 174 1968 Unknown [id number] 2.16.840.1.599341.3.579.2. 174 1968 Unknown [id number] 2.16.840.1.562061.3.579.2. 174 1968 Unknown [id number] 2.16.840.1.360946.3.579.2. 174 1968 Unknown [id number] 2.16.840.1.120955.3.579.2. 174 1968 Unknown [id number] 2.16.840.1.532215.3.579.2. 174 1968 Unknown [id number] 2.16.840.1.239058.3.579.2. 174 1968 Unknown [id number] 2.16.840.1.551394.3.579.2. 174 1968 Unknown [id number] 2.16.840.1.452706.3.579.2. 174 1968 Unknown [id number] 2.16.840.1.355970.3.579.2. 174 1968 Unknown [id number] 2.16.840.1.645379.3.579.2. 174 1968 Unknown [id number] 2.16.840.1.309546.3.579.2. 174 1968 Unknown [id number] 2.16.840.1.597778.3.579.2. 196 1968 Unknown [id number] 2.16.840.1.396774.3.579.2. 196 Private Health Insurance 1 - Car [employer] [id number] 2.16.840.1.599240.3.140.1. 40274.5.10.6.3 Social History Date Type Detail Facility Start: 02-11-2020 End: 02-22-2022 Tobacco smoking status NHIS Former smoker [facility] Start: 07-25-1987 End: 07-25-2017 History of tobacco use Current smoker [place], [place] Start: 07-25-1987 End: 07-25-2017 History of tobacco use Cigarette Smoker [place] Start: 02-11-2020 End: 09-09-2024 Cigarettes smoked current (pack per day) - Reported [place] Start: 02-11-2020 End: 02-22-2022 Tobacco use and exposure Never used [place] Start: 02-11-2020 End: 09-29-2024 Alcohol intake Current non-drinker of alcohol (finding) [place] Start: 04-21-2016 Alcohol Comment [place], [place] Start: 1970 Sex Assigned At Not on file [place] Start: 01-24-2022 End: 07-05-2022 Exposure to SARS-CoV-2 (event) Not sure [place], [place] Assertion Currently not se xually active (finding) [facility] Assertion Gender identity finding (finding) [facility] Assertion Finding of sexua l orientation (finding) [facility] Tobacco smoking status Unknown if ever smoked [facility] Work Phone: Start: 05-10-2018 End: 07-17-2018 Assertion [facility] Start: 08-03-2021 Tobacco smoking status NHIS Never smoked tobacco [facility] Start: 10-28-2021 End: 06-21-2022 Alcohol intake Ex-drinker (finding) [facility] Start: 07-05-2022 End: 09-09-2024 Tobacco use panel [employer] How often to you hav e a drink containing alcohol? Never [employer] [facility] Start: 08-26-2012 Sex Female (finding) [employer] Start: 02-26-2025 Alcoholic beverage intake Lifetime non-drinker (finding) [employer] NEGATED: Highlighted row Assertion Current drinker of alcohol (finding) [facility] NEGATED: Highlighted row Assertion Finding relating to drug misuse behavior (finding) [facility] NEGATED: Highlighted row Assertion Exposure to pollution (event) [facility] NEGATED: Highlighted row Assertion [facility] NEGATED: Highlighted row Assertion Tobacco user (finding) [facility] NEGATED: Highlighted row Assertion Sexually active (finding) [facility] Medical Equipment Procedure Code Equipment Code Equipment Origin al Text Equipment Identifier Dates 1 each by Does n ot apply route daily [id number] Start: 10-23-2018 End: 04-16-2021 1 each by Does n ot apply route 5 times daily Dx: IDDM. 5 injections daily. [id number] Start: 11-13-2017 End: 04-16-2021 Test 4 times a d ay & as needed for symptoms of irregular blood glucose. Dispense sufficient amount for indicated testing frequency plus additional to accommodate PRN testing needs. [id number] Start: 04-16-2021 End: 09-04-2024 1 each by Does n ot apply route 4 times daily [id number] Start: 04-16-2021 End: 09-04-2024 Injection 5 time s a day. [id number] Start: 04-16-2021 End: 09-04-2024 Pen [place] 32G X 5 MM Miscellaneous [id number] Start: 04-21-2021 End: 07-05-2022 Pen [place] 32G X 5 MM Miscellaneous [id number] Start: 06-06-2024 Pen [place] 32G X 5 MM Miscellaneous [id number] Start: 07-05-2022 End: 06-06-2024 BD Lancet Ultraf ine 33G Miscellaneous [id number] Start: 07-04-2024 True Metrix Bloo d Glucose Test In Vitro Strip [id number] Start: 07-04-2024 Insulin Syringe 31G X 5/16 1 ML Miscellaneous [id number] Start: 08-08-2024 Functional Status Date Assessment Result Facility [facility] Mental Status Date Assessment Result Facility Cognitive function Cognitive fun ctioning was normal Cognitive function finding (finding) [facility] Work Phone: Clinical Notes 04-15-2021 to 03-03-2025 Note Date & Type Note Facility 03-03-2025 Evaluation note Includes: Assessments for all patient encounters Findings [Body mass index [BMI] 27.0-27.9, adult] assessment of body mass index Medical Established Patient with Kavita Hardeep [employer] 03/03/2025 Last Documented On 5 3:50PM ; [facility] Assessment of pain in the th oracic spine Medical Established Patient with Kavita Hardeep [employer] 03/03/2025 Last Documented On 5 3:50PM ; [facility] Type 2 diabetes mellitus Medical Established Pat ient with Kavita Hardeep [employer] 03/03/2025 Last Documented On 5 3:50PM ; [facility] Body mass index Medical Established Patient with Kavita Hardeep [employer] 12/31/2024 Last Documented On 5 2:02PM ; [facility] Type 2 diabetes mellitus Medical Established Pat ient with Kavita Hardeep [employer] 12/31/2024 Last Documented On 5 2:02PM ; [facility] [Body mass index [BMI] 27.0- 27.9, adult] assessment of body mass index Medical Established Patient with Kavita Hardeep [employer] 11/27/2024 Last Documented On 5 6:16AM ; [facility] Assessment of pain in the th oracic spine Medical Established Patient with Kavita Hardeep [employer] 11/27/2024 Last Documented On 5 6:16AM ; [facility] Postherpetic polyneuropathy Medical Esta blished Patient with Kavita Hardeep [employer] 11/27/2024 Last Documented On 5 6:16AM ; [facility] Type 2 diabetes mellitus Medical Established Pat ient with Kavita Hardeep [employer] 11/27/2024 Last Documented On 5 6:16AM ; [facility] [Body mass index [BMI] 27.0- 27.9, adult] assessment of body mass index Medical Established Patient with Kavita Hardeep [employer] 10/24/2024 Last Documented On 5 9:04PM ; [facility] Type 2 diabetes mellitus Medical Established Pat ient with Kavita Hardeep [employer] 10/24/2024 Last Documented On 5 9:04PM ; [facility] [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 Medical Established Patient with Sally Ginger [employer] 09/19/2024 Last Documented On 1:29PM ; [facility] Assessment of body mass index Medical Es tablished Patient with Sally Ginger [employer] 09/19/2024 Last Documented On 1:29PM ; [facility] Body mass index Medical Established Patient with Sally Ginger [employer] 09/19/2024 Last Documented On 1:29PM ; [facility] Type 2 diabetes mellitus Medical Established Pat ient with Sally Ginger [employer] 09/19/2024 Last Documented On 1:29PM ; [facility] Type 2 diabetes mellitus Medical Established Pat ient with Sally Ginger [employer] 09/19/2024 Last Documented On 1:29PM ; [facility] [Body mass index [BMI] 28.0- 28.9, adult] assessment of body mass index Open Access - Established with Kavita Hardeep [employer] 09/02/2024 Last Documented On 5 2:11PM ; [facility] Assessment of pain in the th oracic spine [employer] - Established with Kavita Hardeep [employer] 09/02/2024 Last Documented On 5 2:11PM ; [facility] Type 2 diabetes mellitus [employer] - Establish ed with Kavita Hardeep [employer] 09/02/2024 Last Documented On 5 2:11PM ; [facility] [Body mass index [BMI] 28.0- 28.9, adult] assessment of body mass index [employer] - Established with Kavita Hardeep [employer] 08/21/2024 Last Documented On 5 5:18PM ; [facility] Type 2 diabetes mellitus [employer] - Establish ed with Kavita Hardeep [employer] 08/21/2024 Last Documented On 5 5:18PM ; [facility] [Body mass index [BMI] 28.0- 28.9, adult] assessment of body mass index Medical Established Patient with Kavita Hardeep [employer] 08/08/2024 Last Documented On 5 4:23PM ; [facility] Type 2 diabetes mellitus Medical Established Pat ient with Kavita Hardeep [employer] 08/08/2024 Last Documented On 5 4:23PM ; [facility] [Body mass index [BMI] 30.0- 30.9, adult] assessment of body mass index Medical Established Patient with Kavita Hardeep [employer] 07/04/2024 Last Documented On 4 8:14AM ; [facility] Type 2 diabetes mellitus Medical Established Pat ient with Kavita Hardeep [employer] 07/04/2024 Last Documented On 4 8:14AM ; [facility] [Body mass index [BMI] 28.0- 28.9, adult] assessment of body mass index [employer] - Established with Kavita Hardeep [employer] 06/06/2024 Last Documented On 4 11:06AM ; [facility] Venipuncture was performed Open Access - Establi shed with Kavita Hardeep [employer] 06/06/2024 Last Documented On 4 11:06AM ; [facility] Assessment of body mass inde x [Body mass index [BMI] 31.0-31.9, adult] Medical Established Patient with Kavita Hardeep [employer] 06/02/2021 Last Documented On 1 5:19PM ; [facility] Type 2 diabetes mellitus Medical Established Pat ient with Kavita Hardeep [employer] 06/02/2021 Last Documented On 1 5:19PM ; [facility] Assessment of body mass inde x [Body mass index [BMI] 31.0-31.9, adult] Medical Established Patient with Kavita Hardeep [employer] 05/18/2021 Last Documented On 1 5:34PM ; [facility] Assessment of body mass inde x [Body mass index [BMI] 29.0-29.9, adult] Medical New Patient with Kavita Qureshi CNP 04/21/2021 Last Documented On 1 12:10PM ; [facility] Type 2 diabetes mellitus Medical New Patient wit h Kavita Qureshi [employer] 04/21/2021 Last Documented On 1 12:10PM ; [facility] Work Phone: [phone]) 654-270308-18-2025 Progress note* Progress note Date Encounter Last Documented by 03/03/2025 Medical Established Patient Last documented on 03/04/2025; 3:50 PM, Kavita Qureshi TONY; [facility] Active Problems & Conditions - E11.65 - Diabetes Mellitus Type 2 - M54.6 - Pain in the Thoracic Spine - G47.30 - Periods of Not Breathing While Asleep (Sleep Apnea) - B02.23 - Polyneuropathy Postherpetic Chief Complaint The Chief Complaint is: 1 month DM. Referred Here No prior encounters. - Data to be reviewed: no clinical lab tests History of Present Illness Casandra Gonzalez is a 55 year old female. 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 Patient drank 2 bottles of water in office which increased blood pressure and patient is feeling less dizziness Has not been taking insulin appropriately due to not feeling well Discussed importance of proper nutrition and hydration Set a goal with patient to drink at least 64 oz of water a day with two sports drinks to help maintain blood pressure, discussed importance of monitoring BP Has been following up with pain management appropriately Current Medication - *CPAP SUPPLIES Miscellaneous Use nightly, 30 days, 0 refills - BD Lancet Ultrafine 33G Miscellaneous use to monitor blood sugars up to 3 times per day, 30 days, 11 refills - FreeStyle Titus 2 Sensor Miscellaneous check blood sugar at least 4 times daily. E10.65, 28 days, 6 refills - GNP True Metrix Glucose Meter w/Device Kit w/Device Use to monitor blood sugars daily, 30 days, 0 refills - Insulin Lispro (1 Unit Dial) 100 UNIT/ML Subcutaneous Solution Pen-injector Sliding scale 3 times a day before [id number] 3units, 201-250- 6 units, 911-666-4pdxze, 918-594-71gurms, 351-400-15 units, > 400 18 units, 30 days, 0 refills - Insulin Syringe 31G X 5/16 1 ML Miscellaneous use to inject insulin two times per day, 30 days, 3 refills - Lantus 100 UNIT/ML Subcutaneous Solution Inject subcutaneouly 50 units in the morning, and 50 units before bed every day, 90 days, 1 refills - Pen [place] 32G X 5 MM Miscellaneous 32G X 5 MM Use with insulin two times per day, 30 days, 11 refills - True Metrix Blood Glucose Test In Vitro Strip Use to monitor blood sugars three times a day, 30 days, 11 refills Past Medical/Surgical History Reported: Medical: No previous hospitalizations [facility] 04-16-21. Previous hospitalizations or recent ER visits 02/26/25. Diagnoses: Diabetes mellitus Social History Environmental Exposure: No secondhand cigarette smoke exposure. Behavioral: Not a current tobacco/nicotine user. Alcohol: Not using alcohol. Drug Use: Not using drugs denied by patient. Sexual: Not sexually active. Allergies - Gabapentin - NO KNOWN ENVIRONMENTAL ALLERGIES - NO KNOWN FOOD ALLERGIES - Penicillins Reaction: Hives / Urticaria - Statins Reaction: Hives / Urticaria Family History Paternal: Type 2 diabetes mellitus Maternal: Type 2 diabetes mellitus Review Of Systems Head: No head symptoms. Otolaryngeal: No nose and sinus finding. Cardiovascular: No chest pain or discomfort. Pulmonary: No pulmonary symptoms. Gastrointestinal: No gastrointestinal symptoms. Musculoskeletal: Musculoskeletal symptoms. Neurological: No dizziness. Psychological: No psychological symptoms. Skin: No skin symptoms. Physical Findings - Vitals taken 03/03/2025 11:56 am BP-Sitting R78/51 mmHg BP Cuff SizeRegular Pulse Rate-Wezfgjc014 bpm Respiration Rate18 per min Temp-Oral98.4 F Osurov13 in Cdaaza832 lbs 12.8 oz Body Mass Index27.6 kg/m2 Body Surface Area1.9 m2 Oxygen Ijxjzlncgw59 % O2 DeviceNone (Room Air) BoF206 % - Vitals taken 03/03/2025 12:00 pm BP-Ntqypcb22/52 mmHg - Vitals taken 03/03/2025 12:45 pm BP-Khhexxb75/55 mmHg - Vitals taken 03/03/2025 01:10 pm BP-Aotozrh25/67 mmHg Vital Signs: - Systolic blood pressure < 130 mmHg. - Diastolic Blood Pressure < 80 mmHg. General Appearance: - Awake. - Alert. Lungs: - Normal. - Respiration rhythm and depth was normal. Cardiovascular: Auscultation: - Normal. Heart Rate And Rhythm: - Normal. Heart Sounds: - Normal. Abdomen: Visual Inspection: - Abdomen was normal on visual inspection. Musculoskeletal System: General/bilateral: - Normal movement of all extremities, guarded movements. Foot: General/bilateral: - Normal 10-g monofilament exam of right foot. - Normal 10-g monofilament exam of left foot. Neurological: - Oriented to time, place, and person. Psychiatric: - Expression of emotions normal. Physician's Services: - Diabetic Foot Exam Normal Tests Blood Analysis: Hemoglobin Studies: ValueDate Blood hemoglobin A1c 9.1%03/03/2025 Hemoglobin A1c level > 9.0%. Blood Endocrine Laboratory Tests: Value Blood glucose level by fingerstick Non-fasting 271 mg/dl Laboratory-based Chemistry: Other Laboratory Tests: Screening for sexually transmitted infections was not performed. Assessment - Pain in the thoracic spine [Pain in thoracic spine] - Body mass index [Body mass index [BMI] 27.0-27.9, adult] - Type 2 diabetes mellitus [Type 2 diabetes mellitus with hyperglycemia] Counseling/Education - Patient has declined Behavioral Health Screenings - Patient has declined Behavioral Health Services PT declines services snd screenings - Discussed nutritional needs teach healthy choices including fruits and vegetables - Patient education about a proper diet - Referred Patient to a Diabetes Self-Management Program - Discussed concerns about exercise: promote physical activity Follow up next week for BP check Go to ER if blood pressure drops below 90 systolic and you are symptomatic Plan StartCited- Other allergic rhinitis Loratadine 10 MG tablet Take one tablet daily, 30 days, 2 refills EndCited Care Team - Kavita Qureshi CNP - Family User Defined 1 Not planning a in the next year. Bottom of Document Illustration [facility]08-13-2025 History general Narrative - Reported Includes: Medical History in patient's chart Description Last Updated Previous hospitalizations or recent ER v isits 02/26/25 03/03/2025 Last Documented On 5 3:50PM ; [facility] No previous hospitalizations [facility] 04-16-21 06/06/2024 Last Documented On 4 11:06AM ; [facility] History of diabetes mellitus 04/21/2021 Last Documented On 1 12:10PM ; [facility] Work Phone: [phone]) 596-551706-17-2025 Progress note* Progress note Date Encounter Last Documented by 12/31/2024 Medical Established Patient Last documented on 12/31/2024; 2:02 PM, Kavita Qureshi CNP; [facility] Active Problems & Conditions - E11.65 - Diabetes Mellitus Type 2 - M54.6 - Pain in the Thoracic Spine - G47.30 - Periods of Not Breathing While Asleep (Sleep Apnea) - B02.23 - Polyneuropathy Postherpetic Chief Complaint The Chief Complaint is: Pt here for 1 month f/u, needs refills of Lidocaine patches and Insulin(3 bottles at a time). Pt did see Pain management, they are going to do Lidocaine injections. Referred Here No prior encounters. - Data to be reviewed: no clinical lab tests History of Present Illness Casandra Gonzalez is a 54 year old female. - Allergy list reviewed - Reviewed Medications Patient presents for follow up Reports that he back pain is still so bad it is limiting her ADLS and she just lays in bed all day Reports since she is laying in bed all day she has not been taking her insulin correctly Has seen surgeon and pain management Reports that it was recommended she have surgery but she wants to try the lidocaine injections first Has been going to chiropractor 1-2 times per day Current Medication - *CPAP SUPPLIES Miscellaneous Use nightly, 30 days, 0 refills - BD Lancet Ultrafine 33G Miscellaneous use to monitor blood sugars up to 3 times per day, 30 days, 11 refills - Diclofenac Sodium 1% External Gel Apply 2g four times a day to affected areat as needed for pain, 30 days, 1 refills - Fenofibrate 160 MG Oral Tablet 1 tab daily, 90 days, 1 refills - FreeStyle Titus 2 Sensor Miscellaneous check blood sugar at least 4 times daily. E10.65, 28 days, 6 refills - GNP True Metrix Glucose Meter w/Device Kit w/Device Use to monitor blood sugars daily, 30 days, 0 refills - Insulin Lispro (1 Unit Dial) 100 UNIT/ML Subcutaneous Solution Pen-injector Sliding scale 3 times a day before [id number] 3units, 201-250- 6 units, 120-106-3opfis, 936-354-61ioajv, 351-400-15 units, > 400 18 units, 30 days, 0 refills - Insulin Syringe 31G X 5/16 1 ML Miscellaneous use to inject insulin two times per day, 30 days, 3 refills - Lantus 100 UNIT/ML Subcutaneous Solution Inject subcutaneouly 50 units in the morning, and 50 units before bed every day, 30 days, 5 refills - Lidocaine 5% External Patch Apply to affected area every 12 hours ( then off 12 hours) as needed for pain, 15 days, 0 refills - Narcan 4 MG/0.1ML Nasal Liquid One spray in nostril every 1-2 minutes until awake as needed for over dose, 30 days, 3 refills - Pen [place] 32G X 5 MM Miscellaneous 32G X 5 MM Use with insulin two times per day, 30 days, 11 refills - True Metrix Blood Glucose Test In Vitro Strip Use to monitor blood sugars three times a day, 30 days, 11 refills Past Medical/Surgical History Reported: Medical: No previous hospitalizations [facility] 04-16-21 and no Previous hospitalizations or recent ER visits. Diagnoses: Diabetes mellitus Social History Environmental Exposure: No secondhand cigarette smoke exposure. Behavioral: Not a current tobacco/nicotine user. Alcohol: Not using alcohol. Drug Use: Not using drugs denied by patient. Sexual: Not sexually active. Allergies - Gabapentin - NO KNOWN ENVIRONMENTAL ALLERGIES - NO KNOWN FOOD ALLERGIES - Penicillins Reaction: Hives / Urticaria - Statins Reaction: Hives / Urticaria Family History Paternal: Type 2 diabetes mellitus Maternal: Type 2 diabetes mellitus Review Of Systems Head: No head symptoms. Otolaryngeal: No nose and sinus finding. Cardiovascular: No chest pain or discomfort. Palpitations. Pulmonary: No pulmonary symptoms. Gastrointestinal: No gastrointestinal symptoms. Musculoskeletal: Musculoskeletal symptoms. Neurological: No dizziness. Psychological: No psychological symptoms. Skin: No skin symptoms. Physical Findings - Vitals taken 12/31/2024 12:33 pm BP-Sitting R88/61 mmHg BP Cuff SizeRegular Pulse Rate-Azxesnj287 bpm Respiration Rate20 per min Temp-Oral98.3 F Ixqxpl25 in Fpowsz135 lbs Body Mass Index28.1 kg/m2 Body Surface Area1.9 m2 Oxygen Rdgfzeglpd12 % - Vitals taken 12/31/2024 12:41 pm BP-Sitting R92/62 mmHg BP Cuff SizeRegular Vital Signs: - Systolic blood pressure < 130 mmHg. - Diastolic Blood Pressure < 80 mmHg. General Appearance: - Awake. - Alert. Lungs: - Normal. - Respiration rhythm and depth was normal. Cardiovascular: Auscultation: - Normal. Heart Rate And Rhythm: - Normal. Heart Sounds: - Normal. Abdomen: Visual Inspection: - Abdomen was normal on visual inspection. Musculoskeletal System: General/bilateral: - Normal movement of all extremities, guarded movements. Neurological: - Oriented to time, place, and person. Psychiatric: - Expression of emotions normal. Tests Blood Analysis: Hemoglobin Studies: ValueDate Blood hemoglobin A1c 9.3%12/31/2024 Hemoglobin A1c level > 9.0%. Blood Endocrine Laboratory Tests: Value Blood glucose level by fingerstick Non-fasting 260 mg/dl Laboratory-based Chemistry: Other Laboratory Tests: Screening for sexually transmitted infections was not performed. Assessment - Body mass index [Body mass index [BMI] 28.0-28.9, adult] - Type 2 diabetes mellitus [Type 2 diabetes mellitus with hyperglycemia] Therapy - Patient refused flu vaccine. Discussed benefits of flu vaccine with Patient. Counseling/Education - Discussed nutritional needs teach healthy choices including fruits and vegetables - Patient education about a proper diet - Referred Patient to a Diabetes Self-Management Program - Discussed concerns about exercise: promote physical activity Will start duloxetine to help with nerve pain and mood Start taking insulin as prescribed Follow up in one month Plan StartCited- Lumbago with sciatica, unspecified side Lidocaine 5% patch Apply to affected area every 12 hours ( then off 12 hours) as needed for pain, 15 days, 5 refills EndCited StartCited- Postherpetic polyneuropathy DULoxetine HCl 30 MG capsule Take one tablet daily, 30 days, 2 refills EndCited StartCited- Type 2 diabetes mellitus with hyperglycemia Insulin Lispro (1 Unit Dial) 100 UNIT/ML mL Sliding scale 3 times a day before [id number] 3units, 201-250- 6 units, 390-787-4kyuxc, 100-152-47hlkok, 351-400-15 units, > 400 18 units, 30 days, 0 refills Lantus 100 UNIT/ML mL Inject subcutaneouly 50 units in the morning, and 50 units before bed every day, 90 days, 1 refills EndCited Care Team - Kavita Qureshi CNP - Family User Defined 1 Not planning a in the next year. [facility]05-14-2025 Evaluation note Includes: Assessments for all patient encounters Findings Encounter Date [Body mass index [BMI] 27.0- 27.9, adult] assessment of body mass index Medical Established Patient with Kavita Qureshi CNP 11/27/2024 Last Documented On 5 6:16AM ; [facility] Assessment of pain in the th oracic spine Medical Established Patient with Kavita Qureshi CNP 11/27/2024 Last Documented On 5 6:16AM ; [facility] Postherpetic polyneuropathy Medical Esta blished Patient with Kavita Qureshi CNP 11/27/2024 Last Documented On 5 6:16AM ; [facility] Type 2 diabetes mellitus Medical Established Pat ient with Kavita Qureshi CNP 11/27/2024 Last Documented On 5 6:16AM ; [facility] [Body mass index [BMI] 27.0- 27.9, adult] assessment of body mass index Medical Established Patient with Kavita Qureshi CNP 10/24/2024 Last Documented On 5 9:04PM ; [facility] Type 2 diabetes mellitus Medical Established Pat ient with Kavita Hardeep [employer] 10/24/2024 Last Documented On 5 9:04PM ; [facility] [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 Medical Established Patient with Sally Ginger [employer] 09/19/2024 Last Documented On 5 1:29PM ; [facility] Assessment of body mass index Medical Es tablished Patient with Sally Ginger [employer] 09/19/2024 Last Documented On 1:29PM ; [facility] Body mass index Medical Established Patient with Sally Ginger [employer] 09/19/2024 Last Documented On 1:29PM ; [facility] Type 2 diabetes mellitus Medical Established Pat ient with Sally Ginger [employer] 09/19/2024 Last Documented On 1:29PM ; [facility] Type 2 diabetes mellitus Medical Established Pat ient with Sally Ginger [employer] 09/19/2024 Last Documented On 5 1:29PM ; [facility] [Body mass index [BMI] 28.0- 28.9, adult] assessment of body mass index Open Access - Established with Kavita Hardeep [employer] 09/02/2024 Last Documented On 5 2:11PM ; [facility] Assessment of pain in the th oracic spine Open Access - Established with Kavita Hardeep [employer] 09/02/2024 Last Documented On 5 2:11PM ; [facility] Type 2 diabetes mellitus Open Access - Establish ed with Kavita Hardeep [employer] 09/02/2024 Last Documented On 5 2:11PM ; [facility] [Body mass index [BMI] 28.0- 28.9, adult] assessment of body mass index Open Access - Established with Kavita Hardeep [employer] 08/21/2024 Last Documented On 5 5:18PM ; [facility] Type 2 diabetes mellitus Open Access - Establish ed with Kavita Hardeep [employer] 08/21/2024 Last Documented On 5 5:18PM ; [facility] [Body mass index [BMI] 28.0- 28.9, adult] assessment of body mass index Medical Established Patient with Kavita Hardeep [employer] 08/08/2024 Last Documented On 5 4:23PM ; [facility] Type 2 diabetes mellitus Medical Established Pat ient with Kavita Hardeep [employer] 08/08/2024 Last Documented On 5 4:23PM ; [facility] [Body mass index [BMI] 30.0- 30.9, adult] assessment of body mass index Medical Established Patient with Kavita Hardeep [employer] 07/04/2024 Last Documented On 4 8:14AM ; [facility] Type 2 diabetes mellitus Medical Established Pat ient with Kavita Hardeep [employer] 07/04/2024 Last Documented On 4 8:14AM ; [facility] [Body mass index [BMI] 28.0- 28.9, adult] assessment of body mass index Open Access - Established with Kavita Hardeep [employer] 06/06/2024 Last Documented On 4 11:06AM ; [facility] Venipuncture was performed Open Access - Establi shed with Kavita Hardeep [employer] 06/06/2024 Last Documented On 4 11:06AM ; [facility] Assessment of body mass inde x [Body mass index [BMI] 31.0-31.9, adult] Medical Established Patient with Kavita Hardeep [employer] 06/02/2021 Last Documented On 1 5:19PM ; [facility] Type 2 diabetes mellitus Medical Established Pat ient with Kavita Hardeep [employer] 06/02/2021 Last Documented On 1 5:19PM ; [facility] Assessment of body mass inde x [Body mass index [BMI] 31.0-31.9, adult] Medical Established Patient with Kavita Hardeep [employer] 05/18/2021 Last Documented On 1 5:34PM ; [facility] Assessment of body mass inde x [Body mass index [BMI] 29.0-29.9, adult] Medical New Patient with Kavita Hardeep [employer] 04/21/2021 Last Documented On 1 12:10PM ; [facility] Type 2 diabetes mellitus Medical New Patient sylvia guzman Kavita Qureshi CNP 04/21/2021 Last Documented On 1 12:10PM ; [facility] Work Phone: [phone]) 827-471405-14-2025 Progress note* Progress note Date Encounter Last Documented by 11/27/2024 Medical Established Patient Last documented on 12/02/2024; 6:16 AM, Kavita Qureshi CNP; [facility] Active Problems & Conditions - E11.65 - Diabetes Mellitus Type 2 - M54.6 - Pain in the Thoracic Spine - G47.30 - Periods of Not Breathing While Asleep (Sleep Apnea) - B02.23 - Polyneuropathy Postherpetic Chief Complaint The Chief Complaint is: 1 month DM follow up. Referred Here Prior encounters [facility]- waiting for MRI PA. History of Present Illness Casandra Gonzalez is a 54 year old female. - Allergy list reviewed - Reviewed Medications Amitriptyline- not taking Diclofenac- not using Fenofibrate- not taking Patient presents to follow up with diabetes and is still having severe 10/10 sharp burning upper left back pain Patient does report that she sees the chiropractor daily to help with the pain, but it is slowly improving Reports that she is unable to perform daily activities due to pain Admits to having thoughts of suicide due to severity and frequency of pain, reports she is hopeful she can find some relief in pain management and has no active thoughts or plans of suicide Diabetes is better controlled, patient reports it is because she does not eat due to pain Current Medication - *CPAP SUPPLIES Miscellaneous Use nightly, 30 days, 0 refills - Amitriptyline HCl 25 MG Oral Tablet take 1 tablet by mouth once daily at bedtime, 30 days, 1 refills - BD Lancet Ultrafine 33G Miscellaneous use to monitor blood sugars up to 3 times per day, 30 days, 11 refills - Diclofenac Sodium 1% External Gel Apply 2g four times a day to affected areat as needed for pain, 30 days, 1 refills - Fenofibrate 160 MG Oral Tablet 1 tab daily, 90 days, 1 refills - FreeStyle Titus 2 Sensor Miscellaneous check blood sugar at least 4 times daily. E10.65, 28 days, 6 refills - GNP True Metrix Glucose Meter w/Device Kit w/Device Use to monitor blood sugars daily, 30 days, 0 refills - Insulin Lispro (1 Unit Dial) 100 UNIT/ML Subcutaneous Solution Pen-injector Sliding scale 3 times a day before -645 3units, 201-250- 6 units, 291-099-9pwjlz, 202-876-74dgehs, 351-400-15 units, > 400 18 units, 30 days, 0 refills - Insulin Syringe 31G X 5/16 1 ML Miscellaneous use to inject insulin two times per day, 30 days, 3 refills - Lantus 100 UNIT/ML Subcutaneous Solution Inject subcutaneouly 50 units in the morning, and 50 units before bed every day, 30 days, 5 refills - Lidocaine 5% External Patch Apply to affected area every 12 hours ( then off 12 hours) as needed for pain, 15 days, 0 refills - Narcan 4 MG/0.1ML Nasal Liquid One spray in nostril every 1-2 minutes until awake as needed for over dose, 30 days, 3 refills - Pen [place] 32G X 5 MM Miscellaneous 32G X 5 MM Use with insulin two times per day, 30 days, 11 refills - True Metrix Blood Glucose Test In Vitro Strip Use to monitor blood sugars three times a day, 30 days, 11 refills Past Medical/Surgical History Reported: Medical: No previous hospitalizations [facility] 04-16-21 and no Previous hospitalizations or recent ER visits. Diagnoses: Diabetes mellitus Social History Environmental Exposure: No secondhand cigarette smoke exposure and not secondhand from cigarettes. Behavioral: Not a current tobacco/nicotine user. Tobacco use: Former smoker Quit date 2018. Alcohol: Not using alcohol. Drug Use: Using marijuana gummies. Allergies - Gabapentin - NO KNOWN ENVIRONMENTAL ALLERGIES - NO KNOWN FOOD ALLERGIES - Penicillins Reaction: Hives / Urticaria - Statins Reaction: Hives / Urticaria Family History Paternal: Type 2 diabetes mellitus Maternal: Type 2 diabetes mellitus Review Of Systems Head: No head symptoms. Otolaryngeal: No nose and sinus finding. Cardiovascular: No chest pain or discomfort. Palpitations. Pulmonary: No pulmonary symptoms. Gastrointestinal: No gastrointestinal symptoms. Musculoskeletal: Musculoskeletal symptoms. Neurological: No dizziness. Psychological: No psychological symptoms. Skin: No skin symptoms. Physical Findings - Vitals taken 11/27/2024 10:52 am BP-Sitting R108/73 mmHg BP Cuff SizeRegular Pulse Rate-Iotripc411 bpm Qzspkc16 in Zqmdom830 lbs Body Mass Index27.8 kg/m2 Body Surface Area1.9 m2 Oxygen Tdcvgqzsqh74 % - Vitals taken 11/27/2024 10:55 am BP-Wvqpogp433/69 mmHg Vital Signs: - Systolic blood pressure < 130 mmHg. - Diastolic Blood Pressure < 80 mmHg. General Appearance: - Awake. - Alert. Lungs: - Normal. - Respiration rhythm and depth was normal. Cardiovascular: Auscultation: - Normal. Heart Rate And Rhythm: - Normal. Heart Sounds: - Normal. Abdomen: Visual Inspection: - Abdomen was normal on visual inspection. Musculoskeletal System: General/bilateral: - Normal movement of all extremities, guarded movements. Neurological: - Oriented to time, place, and person. Psychiatric: - Expression of emotions normal. Tests Blood Analysis: Hemoglobin Studies: ValueDate Blood hemoglobin A1c 8.8%11/27/2024 Blood Endocrine Laboratory Tests: Value Blood glucose level by fingerstick 238 mg/dl Assessment - Pain in the thoracic spine [Pain in thoracic spine] - Body mass index [Body mass index [BMI] 27.0-27.9, adult] - Type 2 diabetes mellitus [Type 2 diabetes mellitus with hyperglycemia] - Postherpetic polyneuropathy [Postherpetic polyneuropathy] Counseling/Education - Does not want to stop using current contraception - Patient has declined Behavioral Health Screenings - Patient has declined Behavioral Health Services PT declines BH screenings and services - Discussed nutritional needs teach healthy choices including fruits and vegetables - Patient education about a proper diet - Referred Patient to a Diabetes Self-Management Program - Not requesting contraception - Discussed concerns about exercise: promote physical activity Follow up in one month for evaluation of symptoms Will give tramadol to help with pain, take tylenol and motrin between doses Plan StartCited- Pain in thoracic spine Referrals: Pain Management Instructions: Please make a referral to: traMADol HCl 50 MG tablet Take one tablet every 8 hours as needed for pain, 5 days, 0 refills EndCited StartCited- Postherpetic polyneuropathy Referrals: Neurology Instructions: Please make a referral to: EndCited Practice Management Hemoglobin A1c level >=8.0 and <= 9.0%. Care Team - Kavita Qureshi CNP - Family User Defined 1 Not planning a in the next year. [facility]04-10-2025 Evaluation note Includes: Assessments for all patient encounters Findings Encounter Date [Body mass index [BMI] 27.0- 27.9, adult] assessment of body mass index Medical Established Patient with Kavita Qureshi JEWELRY CASTING MODEL MAKER 10/24/2024 Last Documented On 9:04PM ; [facility] Type 2 diabetes mellitus Medical Established Pat ient with Kavita Qureshi [employer]EWELRY CASTING MODEL MAKER 10/24/2024 Last Documented On 9:04PM ; [facility] [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 Medical Established Patient with Sally Miles JEWELRY CASTING MODEL MAKER 09/19/2024 Last Documented On 5 1:29PM ; [facility] Assessment of body mass index Medical Es tablished Patient with Sally Miles JEWELRY CASTING MODEL MAKER 09/19/2024 Last Documented On 5 1:29PM ; [facility] Body mass index Medical Established Patient with Sally Ginger [employer]EWELRY CASTING MODEL MAKER 09/19/2024 Last Documented On 5 1:29PM ; [facility] Type 2 diabetes mellitus Medical Established Pat ient with Sally Miles JEWELRY CASTING MODEL MAKER 09/19/2024 Last Documented On 5 1:29PM ; [facility] Type 2 diabetes mellitus Medical Established Pat ient with Sally Ginger JEWELRY CASTING MODEL MAKER 09/19/2024 Last Documented On 5 1:29PM ; [facility] [Body mass index [BMI] 28.0- 28.9, adult] assessment of body mass index Open Access - Established with Kavita Qureshi JEWELRY CASTING MODEL MAKER 09/02/2024 Last Documented On 5 2:11PM ; [facility] Assessment of pain in the th oracic spine Open Access - Established with Kavita Qureshi JEWELRY CASTING MODEL MAKER 09/02/2024 Last Documented On 5 2:11PM ; [facility] Type 2 diabetes mellitus Open Access - Establish ed with Kavita Hardeep JEWELRY CASTING MODEL MAKER 09/02/2024 Last Documented On 5 2:11PM ; [facility] [Body mass index [BMI] 28.0- 28.9, adult] assessment of body mass index Open Access - Established with Kavita Hardeep JEWELRY CASTING MODEL MAKER 08/21/2024 Last Documented On 5 5:18PM ; [facility] Type 2 diabetes mellitus Open Access - Establish ed with Kavita Hardeep JEWELRY CASTING MODEL MAKER 08/21/2024 Last Documented On 5 5:18PM ; [facility] [Body mass index [BMI] 28.0- 28.9, adult] assessment of body mass index Medical Established Patient with Kavita Hardeep JEWELRY CASTING MODEL MAKER 08/08/2024 Last Documented On 5 4:23PM ; [facility] Type 2 diabetes mellitus Medical Established Pat ient with Kavita Hardeep JEWELRY CASTING MODEL MAKER 08/08/2024 Last Documented On 5 4:23PM ; [facility] [Body mass index [BMI] 30.0- 30.9, adult] assessment of body mass index Medical Established Patient with Kavita Hardeep JEWELRY CASTING MODEL MAKER 07/04/2024 Last Documented On 4 8:14AM ; [facility] Type 2 diabetes mellitus Medical Established Pat ient with Kavita Hardeep [employer]EWEL[employer] CASTING MODEL MAK[employer] 07/04/2024 Last Documented On 4 8:14AM ; [facility] [Body mass index [BMI] 28.0- 28.9, adult] assessment of body mass index Open Access - Established with Kavita Hardeep [employer]EWEL[employer] CA[employer]ING MODEL MAKER 06/06/2024 Last Documented On 4 11:06AM ; [facility] Venipuncture was performed Open Access - Establi shed with Kavita Hardeep [employer]EWEL[employer] CASTING MODEL MAKER 06/06/2024 Last Documented On 4 11:06AM ; [facility] Assessment of body mass inde x [Body mass index [BMI] 31.0-31.9, adult] Medical Established Patient with Kavita Hardeep [employer]EWEL[employer] CASTING MODEL MAKER 06/02/2021 Last Documented On 1 5:19PM ; [facility] Type 2 diabetes mellitus Medical Established Pat ient with Kavita Hardeep [employer]EWEL[employer] CASTING MODEL MAKER 06/02/2021 Last Documented On 1 5:19PM ; [facility] Assessment of body mass inde x [Body mass index [BMI] 31.0-31.9, adult] Medical Established Patient with Kavita Hardeep [employer]EWEL[employer] CASTING MODEL MAKER 05/18/2021 Last Documented On 1 5:34PM ; [facility] Assessment of body mass inde x [Body mass index [BMI] 29.0-29.9, adult] Medical New Patient with Kavita Hardeep JEWELRY CASTING MODEL MAKER 04/21/2021 Last Documented On 1 12:10PM ; [facility] Type 2 diabetes mellitus Medical New Patient wit h Kavita Hardeep [employer]EWEL[employer] CASTING MODEL MAKER 04/21/2021 Last Documented On 1 12:10PM ; [facility] Work Phone: 1(454) 421-193404-10-2025 History general Narrative - Reported Includes: Medical History in patient's chart Description Last Updated No Previous hospitalizations or recent E R visits 10/24/2024 Last Documented On 5 9:04PM ; [facility] No previous hospitalizations [facility] 04-16-21 06/06/2024 Last Documented On 4 11:06AM ; [facility] History of diabetes mellitus 04/21/2021 Last Documented On 1 12:10PM ; [facility] Work Phone: 1(475) 367-978604-10-2025 History general Narrative - Reported Includes: Medical History in patient's chart Description Last Updated No Previous hospitalizations or recent E R visits 10/24/2024 Last Documented On 5 9:04PM ; [facility] No previous hospitalizations [facility] 04-16-21 06/06/2024 Last Documented On 4 11:06AM ; [facility] History of diabetes mellitus 04/21/2021 Last Documented On 1 12:10PM ; [facility] Work Phone: 1(281) 555-928504-10-2025 Progress note* Progress note Date Encounter Last Documented by 10/24/2024 Medical Established Patient Last documented on 10/26/2024; 9:04 PM, Kavita Qureshi CNP; [facility] Active Problems & Conditions - E11.65 - Diabetes Mellitus Type 2 - M54.6 - Pain in the Thoracic Spine - G47.30 - Periods of Not Breathing While Asleep (Sleep Apnea) - B02.23 - Polyneuropathy Postherpetic Referred Here No prior encounters. History of Present Illness Casandra Gonzalez is a 54 year old female. - Allergy list reviewed - Reviewed Medications Only thing she is taking is her insulin and THC medications - Medication list reviewed Patient presents for follow up States that she is going to physical therapy and is following up with orthopedics working on getting a MRI approved by insurance Patient reports that low back pain is severe most of the day it is a 8-1010 and she is unable to eat because of pain being so bad Current Medication - *CPAP SUPPLIES Miscellaneous Use nightly, 30 days, 0 refills - Amitriptyline HCl 25 MG Oral Tablet take 1 tablet by mouth once daily at bedtime, 30 days, 1 refills - BD Lancet Ultrafine 33G Miscellaneous use to monitor blood sugars up to 3 times per day, 30 days, 11 refills - Fenofibrate 160 MG Oral Tablet 1 tab daily, 90 days, 1 refills - FreeStyle Titus 2 Sensor Miscellaneous check blood sugar at least 4 times daily. E10.65, 28 days, 6 refills - GNP True Metrix Glucose Meter w/Device Kit w/Device Use to monitor blood sugars daily, 30 days, 0 refills - Insulin Lispro (1 Unit Dial) 100 UNIT/ML Subcutaneous Solution Pen-injector Sliding scale 3 times a day before -694 3units, 201-250- 6 units, [id number], [id number], 351-400-15 units, > 400 18 units, 30 days, 0 refills - Insulin Syringe 31G X 5/16 1 ML Miscellaneous use to inject insulin two times per day, 30 days, 3 refills - Lantus 100 UNIT/ML Subcutaneous Solution Inject subcutaneouly 50 units in the morning, and 50 units before bed every day, 30 days, 5 refills - Pen Breezy Point 32G X 5 MM Miscellaneous 32G X 5 MM Use with insulin two times per day, 30 days, 11 refills - True Metrix Blood Glucose Test In Vitro Strip Use to monitor blood sugars three times a day, 30 days, 11 refills Past Medical/Surgical History Reported: Medical: No previous hospitalizations [facility] 04-16-21 and no Previous hospitalizations or recent ER visits. Diagnoses: Diabetes mellitus Social History Environmental Exposure: No secondhand cigarette smoke exposure. Tobacco use: Former smoker Quit date 2017. Alcohol: Not using alcohol. Drug Use: Using marijuana THC gummies- only if desperate . Allergies - Gabapentin - NO KNOWN ENVIRONMENTAL ALLERGIES - NO KNOWN FOOD ALLERGIES - Penicillins Reaction: Hives / Urticaria - Statins Reaction: Hives / Urticaria Family History Paternal: Type 2 diabetes mellitus Maternal: Type 2 diabetes mellitus Review Of Systems Head: No head symptoms. Otolaryngeal: No nose and sinus finding. Cardiovascular: No chest pain or discomfort. Palpitations. Pulmonary: No pulmonary symptoms. Gastrointestinal: No gastrointestinal symptoms. Musculoskeletal: Musculoskeletal symptoms. Neurological: No dizziness. Psychological: No psychological symptoms. Skin: No skin symptoms. Physical Findings - Vitals taken 10/24/2024 02:55 pm BP-Sitting L123/72 mmHg BP Cuff SizeRegular Pulse Rate-Ejrrboc539 bpm Lwqxwk55 in Fjflkt221 lbs 12.8 oz Body Mass Index27.7 kg/m2 Body Surface Area1.9 m2 Oxygen Yzzhkinfoh31 % - Vitals taken 10/24/2024 03:03 pm BP-Srocbvk191/68 mmHg Vital Signs: - Systolic blood pressure < 130 mmHg. - Diastolic Blood Pressure < 80 mmHg. General Appearance: - Awake. - Alert. Lungs: - Normal. - Respiration rhythm and depth was normal. Cardiovascular: Auscultation: - Normal. Heart Rate And Rhythm: - Normal. Heart Sounds: - Normal. Abdomen: Visual Inspection: - Abdomen was normal on visual inspection. Musculoskeletal System: General/bilateral: - Normal movement of all extremities, guarded movements. Neurological: - Oriented to time, place, and person. Psychiatric: - Expression of emotions normal. Tests Blood Analysis: Hemoglobin Studies: ValueDate Blood hemoglobin A1c 8.9%10/24/2024 Blood Endocrine Laboratory Tests: Value Blood glucose level by fingerstick Non-fasting 421 mg/dl Assessment - Body mass index [Body mass index [BMI] 27.0-27.9, adult] - Type 2 diabetes mellitus [Type 2 diabetes mellitus with hyperglycemia] Counseling/Education - Patient has declined preventive screening today Informed discussion completed with the patient including costs, risks and possible outcomes - Patient has declined Behavioral Health Screenings - Patient has declined Behavioral Health Services - Discussed nutritional needs teach healthy choices including fruits and vegetables - Patient education about a proper diet - Referred Patient to a Diabetes Self-Management Program - Discussed concerns about exercise: promote physical activity Continue to follow up with orthopedics Follow up for hgba1c in one month Plan StartCited- Lumbago with sciatica, unspecified side HYDROcodone-Acetaminophen 5-325 MG tablet Take one tablet every 8 hours as needed for severe pain, 5 days, 0 refills Narcan 4 MG/0.1ML each One spray in nostril every 1-2 minutes until awake as needed for over dose, 30 days, 3 refills Diclofenac Sodium 1% gram Apply 2g four times a day to affected areat as needed for pain, 30 days, 1 refills Lidocaine 5% patch Apply to affected area every 12 hours ( then off 12 hours) as needed for pain, 15 days, 0 refills EndCited Practice Management Hemoglobin A1c level >=8.0 and <= 9.0%. Care Team - Kavita Qureshi CNP - [id number] History of Present illness Narrative* Fabiana Reynolds, PT - 10/14/2024 10:30 AM EDT Images from the original note were not included. [facility] Therapy Daily Note Date: 10/14/2024 Patient Name: Casandra Gonzalez : 1970 (54 y.o.) Referring Provider (secondary): Dr. Shepherd ([place]) Diagnosis: Muscle Weakness Treatment Diagnosis: Back pain, Weakness PT Insurance Information: [employer] Total # of Visits Approved: 10 Per Physician Order Total # of Visits to Date: 10 No Show: 1 Canceled Appointment: 0 Plan of Care/Certification Expiration Date: 10/18/24 Pre-Treatment Pain: 3/10 Assessment Assessment: Per patient, the pain is 3/10, saw chiropractor which has decreased pain. Completed therex and manual therapy per Doc flow. Strength B shld horizontal abd 4+/5.T andom stance balance 10 sec 2 of 3 trials. LEFS score 57/80. Discharge. Plan Discharge Exercises/Modalities/Manual: See DocFlow Sheet Education: On continuation of HEP Access Code: [email or web address] URL: [email or web address] Date: 10/14/2024 Prepared by: Fabiana Reynolds Exercises - Side Stepping with Resistance at Feet - 1 x daily - 7 x weekly - 10 reps - Standing Hip Extension with Resistance at Ankles and Counter Support - 1 x daily - 7 x weekly - 10 reps - Standing Tandem Balance with Counter Support - 1 x daily - 7 x weekly - 10 reps - Wall Quarter Squat - 1 x daily - 7 x weekly - 10 reps Goals (Total # of Visits to Date: 10) Short Term Goals Time Frame for Short Term Goals: 5 visits Short Term Goal 1: Pt to report independence and compliance with HEP for ROM and glut strengthening.-Met Residential Goals Time Frame for Technician Automatic Goals : 10 visits Residential Goal 1: Pt to improve LEFS from 38/80 to >48/80 to improve pt ADL carlos.- Met Technician Automatic Goal 2: Pt to have 4/5 horiz ABD strength to improve posture and reduce LBP.-MET Residential Goal 3: Pt to maintain tandum stance 10sec 2:3 B/L to improve amb and stair safety.-Met Technician Automatic Goal 4: Pt to report worst pain in back 3/10 x 4 consecutive days to improve work carlos-NotMet Technician Automatic Goal 5: Pt to complete 20# crate lift floor to waist x10 with proper mechanics and no increased pain.-Met Treatment Tolerance: Treatment Tolerance: Tolerated treatment well. Post Treatment Pain: 10 Time In: 10:36 Time Out : 11:11 Timed Code Treatment Minutes: 30 Minutes Total Treatment Time: 35 Minutes Fabiana Reynolds, PT Date: 10/14/2024 documented in this encounterBon [facility] course Narrative* Fabiana Reynolds, PT - 10/14/2024 10:30 AM EDT Images from the original note were not included. [facility] Discharge Summary Patient: Casandra Gonzalez : 1970 Referring Provider (secondary): Dr. Shepherd ([place]) Diagnosis: Muscle Weakness Date Treatment Initiated: 06/27/24 Date of Last Treatment: 10/14/24 PT Visit Information [place] [facility] [facility] [place] # of Visits Approved: 10 Total # of Visits to Date: 10 Plan of Care/Certification Expiration Date: 10/18/24 No Show: 1 Frequency/Duration Days: 2 times per week Weeks: 5 weeks Treatment Received Patient Education/HEP, Therapeutic Exercise, Manual Therapy: Myofacial Release/Cupping, Manual Therapy: Mobilization/Manipulation, and Neuro Re-ed Assessment: Pain Level: varies 3-6/10 Assessment: Per patient, the pain is 3/10, saw chiropractor which has decreased pain. Completed therex and manual therapy per Doc flow. Strength B shld horizontal abd 4+/5.T andom stance balance 10 sec 2 of 3 trials. LEFS score 57/80. Discharge. Goals Short Term Goals Time Frame for Short Term Goals: 5 visits Short Term Goal 1: Pt to report independence and compliance with HEP for ROM and glut strengthening.-Met Technician Automatic Goals Time Frame for Residential Goals : 10 visits Technician Automatic Goal 1: Pt to improve LEFS from 38/80 to >48/80 to improve pt ADL carlos.- Met Residential Goal 2: Pt to have 4/5 horiz ABD strength to improve posture and reduce LBP.-MET Residential Goal 3: Pt to maintain tandum stance 10sec 2:3 B/L to improve amb and stair safety.-Met Residential Goal 4: Pt to report worst pain in back 3/10 x 4 consecutive days to improve work carlos-NotMet Residential Goal 5: Pt to complete 20# crate lift floor to waist x10 with proper mechanics and no increased pain.-Met Reason for Discharge Completion of Prescribed visits and Optimal Function Achieved Comments: Thank you for this referral Fabiana Reynolds, PT Date: 10/14/2024 documented in this encounterBon [facility] History of Present illness Narrative* Darren Lazo, SALES AND MANAGEMENT TRAINEE - 10/11/2024 10:30 AM EDT Images from the original note were not included. [facility] Daily Note Date: 10/11/2024 Patient Name: Casandra Gonzalez : 1970 (54 y.o.) Referring Provider (secondary): Dr. Shepherd ([place]) Diagnosis: Muscle Weakness Treatment Diagnosis: Back pain, Weakness PT Insurance Information[facility] [employer] [facility] Total # of Visits Approved: 10 Per Physician Order Total # of Visits to Date: 9 No Show: 1 Canceled Appointment: 0 Plan of Care/Certification Expiration Date: 10/18/24 Pre-Treatment Pain: 6/10 Assessment Assessment: Pain 6/10 L mid and low back. Pt reports that she feels nauseaous from the pain. She will try do as much as she can during treatment today but doesn't know what she can tolerate. Pt tolerated about half of her program today before she became too nauseous to complete. Pt encouraged to continue with HEP over the weekend. Plan Continue with current plan of care Exercises/Modalities/Manual: See DocFlow Sheet Education: HEP Goals (Total # of Visits to Date: 9) Short Term Goals Time Frame for Short Term Goals: 5 visits Short Term Goal 1: Pt to report independence and compliance with HEP for ROM and glut strengthening.-Met Technician Automatic Goals Time Frame for Technician Automatic Goals : 10 visits Technician Automatic Goal 1: Pt to improve LEFS from 38/80 to >48/80 to improve pt ADL carlos. Residential Goal 2: Pt to have 4/5 horiz ABD strength to improve posture and reduce LBP.-MET Residential Goal 3: Pt to maintain tandum stance 10sec 2:3 B/L to improve amb and stair safety.-Met Technician Automatic Goal 4: Pt to report worst pain in back 3/10 x 4 consecutive days to improve work carlos Technician Automatic Goal 5: Pt to complete 20# crate lift floor to waist x10 with proper mechanics and no increased pain. Treatment Tolerance: Treatment Tolerance: Treatment limited by pain. Post Treatment Pain: 12/24 Time In: 1027 Time Out: 1057 Timed Code Treatment Minutes: 30 Minutes Total Treatment Time: 30 Minutes Darren Lazo PTA Date: 10/11/2024 Cosigned by Fabiana Reynolds, PT at 10/11/2024 12:11 PM EDT documented in this encounterBon [facility]03[facility] History of Present illness Narrative* Fabiana Reynolds, PT - 10/08/2024 9:45 AM EDT Images from the original note were not included. [facility] Daily Note Date: 10/08/2024 Patient Name: Casandra Gonzalez : 1970 (54 y.o.) Referring Provider (secondary): Dr. Shepherd ([place]) Diagnosis: Muscle Weakness Treatment Diagnosis: Back pain, Weakness PT [place] [facility] # of Visits Approved: 10 Per Physician Order Total # of Visits to Date: 8 No Show: 1 Canceled Appointment: 0 Plan of Care/Certification Expiration Date: 10/18/24 Pre-Treatment Pain: 5/10 Assessment Assessment: Pain 5/10 L mid and low back. Patient reports saw chiropractor yesterday. Patient reports she had shingles 3 months ago, and feels this pain may bee from that. She reports the only reliefshe gets is when she takes marijuana. Completed manual therapy and therex per Doc Flow. strength B shld flexion 4+/5, horizontal abd 4+/5. Tandem stance balance 10 sec 1 of [address]. [address] told her she needed to finish 10 therapy sessions, then will run MRI. See recertification. Plan Continue with current plan of care Exercises/Modalities/Manual: See DocFlow Sheet Education: Goals (Total # of Visits to Date: 8) Short Term Goals Time Frame for Short Term Goals: 5 visits Short Term Goal 1: Pt to report independence and compliance with HEP for ROM and glut strengthening.-Met Technician Automatic Goals Time Frame for Residential Goals : 10 visits Technician Automatic Goal 1: Pt to improve LEFS from 38/80 to >48/80 to improve pt ADL carlos. Technician Automatic Goal 2: Pt to have 4/5 horiz ABD strength to improve posture and reduce LBP.-MET Residential Goal 3: Pt to maintain tandum stance 10sec 2:3 B/L to improve amb and stair safety.-Met Residential Goal 4: Pt to report worst pain in back 3/10 x 4 consecutive days to improve work carlos Residential Goal 5: Pt to complete 20# crate lift floor to waist x10 with proper mechanics and no increased pain. Treatment Tolerance: Treatment Tolerance: Tolerated treatment well. Post Treatment Pain: 10 Time In: 9:50 Time Out : 10:35 Timed Code Treatment Minutes: 45 Minutes Total Treatment Time: 45 Minutes Fabiana Reynolds, PT Date: 10/08/2024 documented in this encounterBon [facility]03-[facility] Progress note* Progress note Date Encounter Last Documented by 09/19/2024 Medical Established Patient Last documented on 09/19/2024; 1:29 PM, Sally Miles CNP; [facility] Active Problems & Conditions - E11.65 - Diabetes Mellitus Type 2 - M54.6 - Pain in the Thoracic Spine - G47.30 - Periods of Not Breathing While Asleep (Sleep Apnea) - B02.23 - Polyneuropathy Postherpetic Chief Complaint The Chief Complaint is: Patient has Therapathic neuralgia and is asking for something for pain. Patient refused eye exam and foot exam. Referred Here No prior encounters. - Data to be reviewed: no clinical lab tests History of Present Illness Casandra Gonzalez is a 54 year old female. - Allergy list reviewed - Reviewed Medications - Medication list reviewed Presents normally seen by kavita qureshi manual training teacher requesting [place] for pain , reports developed symptoms of postherpetic neuralgia in june after having shingles in January . 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 reiterated that opiates are not the chronic treatment for PHN and thta I am sending a recommended treatment that has been shown to be effective in managing symptoms of PHN . pt then jumped off the table and stormed out without making her 2 week follow up. I had talked with pt about how getting blood sugars under control can also help her painful symptoms Current Medication - *CPAP SUPPLIES Miscellaneous Use nightly, 30 days, 0 refills - BD Lancet Ultrafine 33G Miscellaneous use to monitor blood sugars up to 3 times per day, 30 days, 11 refills - Fenofibrate 160 MG Oral Tablet 1 tab daily, 90 days, 1 refills - FreeStyle Titus 2 Sensor Miscellaneous check blood sugar at least 4 times daily. E10.65, 28 days, 6 refills - GNP True Metrix Glucose Meter w/Device Kit w/Device Use to monitor blood sugars daily, 30 days, 0 refills - Insulin Lispro (1 Unit Dial) 100 UNIT/ML Subcutaneous Solution Pen-injector Sliding scale 3 times a day before [id number] 3units, 201-250- 6 units, [id number], [id number], 351-400-15 units, > 400 18 units, 30 days, 0 refills - Insulin Syringe 31G X 5/16 1 ML Miscellaneous use to inject insulin two times per day, 30 days, 3 refills - Lantus 100 UNIT/ML Subcutaneous Solution Inject subcutaneouly 50 units in the morning, and 50 units before bed every day, 30 days, 5 refills - Pen Breezy Point 32G X 5 MM Miscellaneous 32G X 5 MM Use with insulin two times per day, 30 days, 11 refills - True Metrix Blood Glucose Test In Vitro Strip Use to monitor blood sugars three times a day, 30 days, 11 refills Past Medical/Surgical History Reported: Medical: No previous hospitalizations [facility] 04-16-21 and no Previous hospitalizations or recent ER visits. Diagnoses: Diabetes mellitus Social History Environmental Exposure: No secondhand cigarette smoke exposure. Behavioral: Not a current tobacco user. Tobacco use: Not using electronic cigarettes/vaping. Alcohol: Not using alcohol. Drug Use: Not using drugs denied by patient. Sexual: Not sexually active. Allergies - Gabapentin - NO KNOWN ENVIRONMENTAL ALLERGIES - NO KNOWN FOOD ALLERGIES - Penicillins Reaction: Hives / Urticaria - Statins Reaction: Hives / Urticaria Family History Paternal: Type 2 diabetes mellitus Maternal: Type 2 diabetes mellitus Review Of Systems Head: No head symptoms. Neck: No neck symptoms. Eyes: No eye symptoms. Otolaryngeal: No ear symptoms, no nasal symptoms, no nose and sinus finding, no throat symptoms, no oral cavity symptoms, and no jaw symptoms. Breasts: No breast symptoms. Cardiovascular: No cardiovascular symptoms. Pulmonary: No pulmonary symptoms. Gastrointestinal: No gastrointestinal symptoms. Genitourinary: No genitourinary symptoms. Musculoskeletal: Musculoskeletal symptoms left flank / back pain would not rate on a 10 scale said its worse than that . Neurological: No neurological symptoms. Psychological: No psychological symptoms. Skin: No skin symptoms. Physical Findings - Vitals taken 09/19/2024 09:24 am BP-Sitting L131/63 mmHg BP Cuff SizeRegular Pulse Rate-Kgkkghx500 bpm Respiration Rate18 per min Temp-Oral98.4 F Funhnm79 in Cwrwua557 lbs 12.8 oz Body Mass Index28.9 kg/m2 Body Surface Area1.9 m2 Oxygen Drjmgngpjp36 % - Vitals taken 09/19/2024 09:36 am BP-Sitting L116/72 mmHg BP Cuff SizeRegular Vital Signs: - Systolic blood pressure < 130 mmHg. - Diastolic Blood Pressure < 80 mmHg. General Appearance: - Awake. - Alert. - Well developed. - Well nourished. - In no acute distress. Lungs: - Respiration rhythm and depth was normal. - Clear to auscultation. Cardiovascular: Heart Rate And Rhythm: - Normal. Heart Sounds: - Normal. Abdomen: Visual Inspection: - Abdomen was normal on visual inspection. Musculoskeletal System: General/bilateral: - Normal movement of all extremities. Skin: - General appearance of skin normal. Tests Blood Analysis: Hemoglobin Studies: ValueDate Blood hemoglobin A1c 10.7%09/19/2024 Hemoglobin A1c level > 9.0%. Blood Endocrine Laboratory Tests: Value Blood glucose level by fingerstick Non-fasting 307 mg/dl Laboratory-based Chemistry: Other Laboratory Tests: Screening for sexually transmitted infections was not performed. Assessment - Z68.28 - Body mass index [BMI] 28.0-28.9, adult - Z68.28 - Body mass index [BMI] 28.0-28.9, adult - E11.65 - Type 2 diabetes mellitus with hyperglycemia - E11.65 - Type 2 diabetes mellitus with hyperglycemia - B02.23 - Postherpetic polyneuropathy Therapy - Patient refused flu vaccine. Discussed benefits of flu vaccine with Patient. Counseling/Education - Patient has declined preventive screening today Informed discussion completed with the patient including costs, risks and possible outcomes - Patient has declined Breast cancer screening - Patient has declined DM foot exam - Patient has declined Cervical cancer screening - Patient verbalizes/demonstrates understanding of informed discussion/counseling - Patient has declined Behavioral Health Screenings - Patient has declined Behavioral Health Services - Discussed nutritional needs teach healthy choices including fruits and vegetables - Patient education about a proper diet - Discussed concerns about exercise: promote physical activity Plan StartCited- Other Follow-up Appointment 2 weeks kavita hoffman follow up EndCited StartCited- Postherpetic polyneuropathy Amitriptyline HCl 25 MG tablet take 1 tablet by mouth once daily at bedtime, 30 days, 1 refills EndCited Adding amitriptylline to help manage the nerve pain , very important to get sugars under control. Care Team - Kavita Qureshi CNP - Family Health Reminders - Assess BMI satisfied 09/19/2024. - Assess Tobacco Use satisfied 09/19/2024. - Follow Up Plan BMI Management satisfied 09/19/2024. - Hemoglobin A1c satisfied 09/19/2024. User Defined 1 Not planning a in the next year. [facility]02-19-2025 History of Present illness Narrative* Nelly Reeves RN - 09/04/2024 8:21 AM EST Nurse Lerma entered the room to insert a peripheral intravenous (PIV) line. The patient became visibly distressed, yelling and striking the bed, expressing concerns about the procedure s pain, saying, This is going to hurt, why are you doing this? Nurse Lerma calmly explained that in order to proceed with treatment, it was necessary to collect blood work and insert the IV as per the physician's orders. After the explanation, the patient became more cooperative and agreed to allow the procedure to be completed. During triage, this nurse asked the patient about her preferences regarding blood product administration in case of an emergency. The patient responded, You always ask this question, and I m tired of answering it. A review of her previous responses indicated a refusal of blood products. When asked again, the patient stated, I m refusing to answer your question, but that answer is fine. [facility] History of Present illness Narrative* Shock, Bette S - 09/03/2024 2:15 PM EST Physical Therapy [facility] Date: 09/03/2024 Patient Name: Casandra Oviedo Carlos : 1970 Patient called and said it was too cold and the weather was too bad to come out. Bette S Shock Date: 09/03/2024 documented in [facility] Evaluation note Includes: Assessments for all patient encounters Findings Encounter Date [Body mass index [BMI] 28.0- 28.9, adult] assessment of body mass index Open Access - Established with Kavita Qureshi CNP 09/02/2024 Last Documented On 2:11PM ; [facility] Assessment of pain in the th oracic spine Open Access - Established with Kavita Hardeep JEWELRY CA[employer]ING MODEL MAKER 09/02/2024 Last Documented On 5 2:11PM ; [facility] Type 2 diabetes mellitus Open Access - Establish ed with Kavita Hardeep [employer]EW[employer] CA[employer]ING MODEL MAKER 09/02/2024 Last Documented On 5 2:11PM ; [facility] [Body mass index [BMI] 28.0- 28.9, adult] assessment of body mass index Open Access - Established with Kavita Hardeep [employer]EWEL[employer] CA[employer]ING MODEL MAKER 08/21/2024 Last Documented On 5 5:18PM ; [facility] Type 2 diabetes mellitus Open Access - Establish ed with Kavita Hardeep [employer]EW[employer] CA[employer]ING MODEL MAKER 08/21/2024 Last Documented On 5 5:18PM ; [facility] [Body mass index [BMI] 28.0- 28.9, adult] assessment of body mass index Medical Established Patient with Kavita Hardeep [employer]EWEL[employer] CA[employer]ING MODEL MAKER 08/08/2024 Last Documented On 5 4:23PM ; [facility] Type 2 diabetes mellitus Medical Established Pat ient with Kavita Hardeep [employer]ING MODEL [employer]KER 08/08/2024 Last Documented On 5 4:23PM ; [facility] [Body mass index [BMI] 30.0- 30.9, adult] assessment of body mass index Medical Established Patient with Kavita Hardeep [employer]ING [employer]DEL MAKER 07/04/2024 Last Documented On 4 8:14AM ; [facility] Type 2 diabetes mellitus Medical Established Pat ient with Kavita Hardeep [employer]ING MODEL MAKER 07/04/2024 Last Documented On 4 8:14AM ; [facility] [Body mass index [BMI] 28.0- 28.9, adult] assessment of body mass index Open Access - Established with Kavita Hardeep [employer]ING [employer]DEL MAKER 06/06/2024 Last Documented On 4 11:06AM ; [facility] Venipuncture was performed Open Access - Establi shed with Kavita Hardeep [employer]ING [employer]DEL [employer] 06/06/2024 Last Documented On 4 11:06AM ; [facility] Assessment of body mass inde x [Body mass index [BMI] 31.0-31.9, adult] Medical Established Patient with Kavita Hardeep [employer]ING [employer]DEL [employer]KER 06/02/2021 Last Documented On 1 5:19PM ; [facility] Type 2 diabetes mellitus Medical Established Pat ient with Kavita Bryanter [employer]ING [employer]DEL [employer]KER 06/02/2021 Last Documented On 1 5:19PM ; [facility] Assessment of body mass inde x [Body mass index [BMI] 31.0-31.9, adult] Medical Established Patient with Kavita Bryanter [employer]ING [employer]DEL MAKER 05/18/2021 Last Documented On 1 5:34PM ; [facility] Assessment of body mass inde x [Body mass index [BMI] 29.0-29.9, adult] Medical New Patient with Kavita Bryanter [employer]ING MODEL MAKER 04/21/2021 Last Documented On 1 12:10PM ; [facility] Type 2 diabetes mellitus Medical New Patient wit h Kavita Qureshi [employer]ING MODEL [employer]KER 04/21/2021 Last Documented On 1 12:10PM ; [facility] Work Phone: 1(460) 821-518902-17-2025 History general Narrative - Reported Includes: Medical History in patient's chart Description Last Updated No Previous hospitalizations or recent E R visits 09/02/2024 Last Documented On 5 2:11PM ; [facility] No previous hospitalizations [facility] 04-[facility]-21 06/06/2024 Last Documented On 4 11:06AM ; [facility] History of diabetes mellitus 04/21/2021 Last Documented On 1 12:10PM ; [facility] Work Phone: 1(501) 514-162602-17-2025 History of Present illness Narrative* Samira Gonzalez - 09/02/2024 2:00 PM EST [facility] Date: 09/02/2024 Patient Name: Casandra Gonzalez : 1970 Pt Cancelled Appt due to left voice mail with no reason for cancel Samira Gonzalez Date: 09/02/2024 documented in this encounterBon Asya [id number] Progress note* Progress note Date Encounter Last Documented by 09/02/2024 Open Access - Established Last d ocumented on 09/02/2024; 2:11 PM, Kavita Qureshi JEWEL[employer] CASTING MODEL MAKER; [facility] Active Problems & Conditions - E11.65 - Diabetes Mellitus Type 2 - M54.6 - Pain in the Thoracic Spine - G47.30 - Periods of Not Breathing While Asleep (Sleep Apnea) Chief Complaint The Chief Complaint is: Paperwork for work. Referred Here Prior encounters Ortho. History of Present Illness Casandra Gonzalez is a 54 year old female. - Allergy list reviewed - Reviewed Medications Cyclobenzaprine- needs refill Renofibrate- has not started Patient presents to for follow up back pain States that back pain gets severe, reports that pain is at a constant mild pain but intermittently gets to a 6/10 that is a sharp squeezing pain, has been going to physical therapy and seen improvement Discussed blood pressure and heart rate and recommendations to go to ER, patient does think she might be dehydrated because she has not been eating or drinking appropriately, also she has not had a bowel movement in 5 days and is starting to get nauseated Discussed abnormal EKG and 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 E10.65, 28 days, 6 refills - Gabapentin 100 MG Oral Capsule Take one tablet three times a day, 15 days, 0 refills - GNP True Metrix Glucose Meter w/Device Kit w/Device Use to monitor blood sugars daily, 30 days, 0 refills - Insulin Lispro (1 Unit Dial) 100 UNIT/ML Subcutaneous Solution Pen-injector Sliding scale 3 times a day before [id number] 3units, 201-250- 6 units, 219-660-2ffnfd, 262-047-04oqisr, 351-400-15 units, > 400 18 units, 30 days, 0 refills - Insulin Syringe 31G X 5/16 1 ML Miscellaneous use to inject insulin two times per day, 30 days, 3 refills - Lantus 100 UNIT/ML Subcutaneous Solution Inject subcutaneouly 50 units in the morning, and 50 units before bed every day, 30 days, 5 refills - Pen [place] 32G X 5 MM Miscellaneous 32G X 5 MM Use with insulin two times per day, 30 days, 11 refills - True Metrix Blood Glucose Test In Vitro Strip Use to monitor blood sugars three times a day, 30 days, 11 refills Past Medical/Surgical History Reported: Medical: No previous hospitalizations [facility] 04-16-21 and no Previous hospitalizations or recent ER visits. Diagnoses: Diabetes mellitus Social History Environmental Exposure: No secondhand cigarette smoke exposure. Behavioral: Not a current tobacco user. Tobacco use: Not using electronic cigarettes/vaping. Former smoker Quit date 2020. Alcohol: Not using alcohol. Drug Use: Not using drugs denied by patient. Sexual: Sexual orientation Straight (not lesbian or red) and gender identity Female. Allergies - NO KNOWN ENVIRONMENTAL ALLERGIES - NO KNOWN FOOD ALLERGIES - Penicillins Reaction: Hives / Urticaria - Statins Reaction: Hives / Urticaria Family History Paternal: Type 2 diabetes mellitus Maternal: Type 2 diabetes mellitus Review Of Systems Head: Head symptoms. Otolaryngeal: No nose and sinus finding. Cardiovascular: No chest pain or discomfort. Palpitations. Pulmonary: No pulmonary symptoms. Gastrointestinal: No gastrointestinal symptoms. Musculoskeletal: Musculoskeletal symptoms. Neurological: Dizziness. Psychological: No psychological symptoms. Skin: No skin symptoms. Physical Findings - Vitals taken 09/02/2024 12:14 pm BP-Sitting R104/73 mmHg BP Cuff SizeRegular Pulse Rate-Tvlqbeb652 bpm Temp-Oral97.9 F Niqkej70 in Hwzria309 lbs Body Mass Index28.4 kg/m2 Body Surface Area1.9 m2 Oxygen Atxilaakub01 % - Vitals taken 09/02/2024 12:21 pm BP-Arjgpzw86/62 mmHg - Vitals taken 09/02/2024 12:24 pm BP-Jqffful92/60 mmHg - Vitals taken 09/02/2024 01:06 pm BP-Tgztzim62/68 mmHg Pulse Rate-Xplvcxc404 bpm Vital Signs: - Systolic blood pressure < 130 mmHg. - Diastolic Blood Pressure < 80 mmHg. General Appearance: - Awake. - Alert. Lungs: - Normal. - Respiration rhythm and depth was normal. Cardiovascular: Auscultation: - Normal. Heart Rate And Rhythm: - Normal. Heart Sounds: - Normal. Abdomen: Visual Inspection: - Abdomen was normal on visual inspection. Musculoskeletal System: General/bilateral: - Normal movement of all extremities, guarded movements. Neurological: - Oriented to time, place, and person. Psychiatric: - Expression of emotions normal. Assessment - Pain in the thoracic spine [Pain in thoracic spine] - Body mass index [Body mass index [BMI] 28.0-28.9, adult] - Type 2 diabetes mellitus [Type 2 diabetes mellitus with hyperglycemia] Counseling/Education - Patient has declined preventive screening today Informed discussion completed with the patient including costs, risks and possible outcomes - Patient has declined Behavioral Health Screenings - Patient has declined Behavioral Health Services - Discussed nutritional needs teach healthy choices including fruits and vegetables - Patient education about a proper diet - Discussed concerns about exercise: promote physical activity Follow up after ER visit Plan StartCited- Type 2 diabetes mellitus with hyperglycemia Insulin Lispro (1 Unit Dial) 100 UNIT/ML mL Sliding scale 3 times a day before [id number] 3units, 201-250- 6 units, 619-819-4oasfz, 783-630-01ohjno, 351-400-15 units, > 400 18 units, 30 days, 0 refills EndCited [facility]02-06-2025 History of Present illness Narrative* Shock, Bette S - 08/22/2024 1:45 PM EST Physical Therapy [facility] Date: 08/22/2024 Patient Name: Casandra Oviedo Carlos : 1970 Patient is not feeling well and will not be able to make this appointment.She will return on the next appt. Bette Galvan Shock Date: 08/22/2024 documented in this encounterCar[facility] Hospital Discharge instructions* Discharge Instructions* Ame Saldana DO - 08/21/2024 9:22 PM EST Make sure to drink at least 80 to 90 ounces of water every day. Do not take the gabapentin and Flexeril together. Close follow-up with your family doctor next week. Return to the emergency departmentif symptoms get worse. 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 * Attachments The following attachments cannot be sent through Care Everywhere. * Dizziness (Thai) documented in this encounterCarilion Clinic [facility]. [facility]02-[facility]25 Evaluation note Includes: Assessments for all patient encounters Findings Encounter Date [Body mass index [BMI] 28.0- 28.9, adult] assessment of body mass index Open Access - Established with Kavita Hardeep [employer]ING [employer]DEL [employer]KER 08/21/2024 Last Documented On 5 4:06PM ; [facility] Type 2 diabetes mellitus Open Access - Establish ed with Kavita Hardeep [employer]ING MODEL MAKER 08/21/2024 Last Documented On 5 4:06PM ; [facility] [Body mass index [BMI] 28.0- 28.9, adult] assessment of body mass index Medical Established Patient with Kavita Hardeep [employer]ING MODEL MAKER 08/08/2024 Last Documented On 5 4:23PM ; [facility] Type 2 diabetes mellitus Medical Established Pat ient with Kavita Hardeep [employer]ING MODEL MAKER 08/08/2024 Last Documented On 5 4:23PM ; [facility] [Body mass index [BMI] 30.0- 30.9, adult] assessment of body mass index Medical Established Patient with Kavita Hardeep [employer]ING MODEL MAKER 07/04/2024 Last Documented On 4 8:14AM ; [facility] Type 2 diabetes mellitus Medical Established Pat ient with Kavita Hardeep [employer] CASTING MODEL MAKER 07/04/2024 Last Documented On 4 8:14AM ; [facility] [Body mass index [BMI] 28.0- 28.9, adult] assessment of body mass index Open Access - Established with Kavita Qureshi CNP 06/06/2024 Last Documented On 4 11:06AM ; [facility] Venipuncture was performed Open Access - Establi shed with Kavita Qureshi [employer]EW[employer] CASTING MODEL MAKER 06/06/2024 Last Documented On 4 11:06AM ; [facility] Assessment of body mass inde x [Body mass index [BMI] 31.0-31.9, adult] Medical Established Patient with Kavita Hardeep [employer]EL[employer] CASTING MODEL MAKER 06/02/2021 Last Documented On 1 5:19PM ; [facility] Type 2 diabetes mellitus Medical Established Pat ient with Kavita Hardeep [employer] CASTING MODEL MAKER 06/02/2021 Last Documented On 1 5:19PM ; [facility] Assessment of body mass inde x [Body mass index [BMI] 31.0-31.9, adult] Medical Established Patient with Kavita Hardeep [employer] CASTING MODEL MAKER 05/18/2021 Last Documented On 1 5:34PM ; [facility] Assessment of body mass inde x [Body mass index [BMI] 29.0-29.9, adult] Medical New Patient with Kavita Hardeep JEWEL[employer] CASTING MODEL MAKER 04/21/2021 Last Documented On 1 12:10PM ; [facility] Type 2 diabetes mellitus Medical New Patient wit h Kavita Qureshi JEWEL[employer] CASTING MODEL MAKER 04/21/2021 Last Documented On 1 12:10PM ; [facility] Work Phone: 1(810) 857-596002-05-2025 Evaluation note Includes: Assessments for all patient encounters Findings Encounter Date [Body mass index [BMI] 28.0- 28.9, adult] assessment of body mass index Open Access - Established with Kavita Qureshi CNP 08/21/2024 Last Documented On 5 4:06PM ; [facility] Type 2 diabetes mellitus Open Access - Establish ed with Kavita Qureshi CNP 08/21/2024 Last Documented On 5 4:06PM ; [facility] [Body mass index [BMI] 28.0- 28.9, adult] assessment of body mass index Medical Established Patient with Kavita Hardeep JEWEL[employer] CASTING MODEL MAKER 08/08/2024 Last Documented On 5 4:22PM ; [facility] Type 2 diabetes mellitus Medical Established Pat ient with Kavita Hardeep JEWEL[employer] CASTING MODEL MAKER 08/08/2024 Last Documented On 5 4:22PM ; [facility] [Body mass index [BMI] 30.0- 30.9, adult] assessment of body mass index Medical Established Patient with Kavita Hardeep [employer]EL[employer] CASTING MODEL MAKER 07/04/2024 Last Documented On 4 8:14AM ; [facility] Type 2 diabetes mellitus Medical Established Pat ient with Kavita Hardeep JEWEL[employer] CASTING MODEL MAKER 07/04/2024 Last Documented On 4 8:14AM ; [facility] [Body mass index [BMI] 28.0- 28.9, adult] assessment of body mass index Open Access - Established with Kavita Hardeep JEWEL[employer] CASTING MODEL MAKER 06/06/2024 Last Documented On 4 11:06AM ; [facility] Venipuncture was performed Open Access - Establi shed with Kavita Hardeep JEWELRY CASTING MODEL MAKER 06/06/2024 Last Documented On 4 11:06AM ; [facility] Assessment of body mass inde x [Body mass index [BMI] 31.0-31.9, adult] Medical Established Patient with Kavita Hardeep JEWELRY CASTING MODEL MAKER 06/02/2021 Last Documented On 1 5:19PM ; [facility] Type 2 diabetes mellitus Medical Established Pat ient with Kavita Hardeep JEWELRY CASTING MODEL MAKER 06/02/2021 Last Documented On 1 5:19PM ; [facility] Assessment of body mass inde x [Body mass index [BMI] 31.0-31.9, adult] Medical Established Patient with Kavita Hardeep JEWELRY CASTING MODEL MAKER 05/18/2021 Last Documented On 1 5:34PM ; [facility] Assessment of body mass inde x [Body mass index [BMI] 29.0-29.9, adult] Medical New Patient with Kavita Hardeep JEWELRY CASTING MODEL MAKER 04/21/2021 Last Documented On 1 12:10PM ; [facility] Type 2 diabetes mellitus Medical New Patient wit h Kavita Qureshi JEWELRY CASTING MODEL MAKER 04/21/2021 Last Documented On 1 12:10PM ; [facility] Work Phone: 1(125) 876-269402-05-2025 Evaluation note Includes: Assessments for all patient encounters Findings Encounter Date [Body mass index [BMI] 28.0- 28.9, adult] assessment of body mass index Open Access - Established with Kavita Qureshi JEWELRY CASTING MODEL MAKER 08/21/2024 Last Documented On 5 5:18PM ; [facility] Type 2 diabetes mellitus Open Access - Establish ed with Kavita Hardeep JEWELRY CASTING MODEL MAKER 08/21/2024 Last Documented On 5 5:18PM ; [facility] [Body mass index [BMI] 28.0- 28.9, adult] assessment of body mass index Medical Established Patient with Kavita Hardeep JEWELRY CASTING MODEL MAKER 08/08/2024 Last Documented On 5 4:23PM ; [facility] Type 2 diabetes mellitus Medical Established Pat ient with Kavita Hardeep JEWELRY CASTING MODEL MAKER 08/08/2024 Last Documented On 5 4:23PM ; [facility] [Body mass index [BMI] 30.0- 30.9, adult] assessment of body mass index Medical Established Patient with Kavita Hardeep JEWELRY CASTING MODEL MAKER 07/04/2024 Last Documented On 4 8:14AM ; [facility] Type 2 diabetes mellitus Medical Established Pat ient with Kavita Hardeep JEWELRY CASTING MODEL MAKER 07/04/2024 Last Documented On 4 8:14AM ; [facility] [Body mass index [BMI] 28.0- 28.9, adult] assessment of body mass index Open Access - Established with Kavita Hardeep JEWELRY CASTING MODEL MAKER 06/06/2024 Last Documented On 4 11:06AM ; [facility] Venipuncture was performed Open Access - Establi shed with Kavita Hardeep JEWELRY CASTING MODEL MAKER 06/06/2024 Last Documented On 4 11:06AM ; [facility] Assessment of body mass inde x [Body mass index [BMI] 31.0-31.9, adult] Medical Established Patient with Kavitadima Qureshi CNP 06/02/2021 Last Documented On 1 5:19PM ; [facility] Type 2 diabetes mellitus Medical Established Pat ient with aKvita Qureshi CNP 06/02/2021 Last Documented On 1 5:19PM ; [facility] Assessment of body mass inde x [Body mass index [BMI] 31.0-31.9, adult] Medical Established Patient with Kavita Qureshi JEWELRY CASTING MODEL MAKER 05/18/2021 Last Documented On 1 5:34PM ; [facility] Assessment of body mass inde x [Body mass index [BMI] 29.0-29.9, adult] Medical New Patient with Kavita Qureshi JEWELRY CASTING MODEL MAKER 04/21/2021 Last Documented On 1 12:10PM ; [facility] Type 2 diabetes mellitus Medical New Patient wit h Kavita Qureshi CNP 04/21/2021 Last Documented On 1 12:10PM ; [facility] Work Phone: 1(105) 842-334602-05-2025 Progress note* Progress note Date Encounter Last Documented by 08/21/2024 Open Access - Established Last d ocumented on 08/30/2024; 5:18 PM, Kavita Qureshi CNP; [facility] Active Problems & Conditions - E11.65 - Diabetes Mellitus Type 2 - M54.6 - Pain in the Thoracic Spine - G47.30 - Periods of Not Breathing While Asleep (Sleep Apnea) Chief Complaint The Chief Complaint is: Request letter to be taken off work. Referred Here Not referred by urgent care clinic. Referred by emergency room Yue Leyva 08/17/24- back pain. No prior encounters. History of Present Illness Casandra Gonzalez is a 54 year old female. - Reviewed Medications. Patient presents for follow up States that ALINA cesar that thought it was more muscular/nerve pain Pain is in midcenter back, does report that this is the same place she had her shingles and is having a pinching pain in area, pain which is exacerbated by activity she has been doing at work Looking through medication history patient had abnormal pap, discussed with patient and results were years ago discussed importance of getting a PAP, patient voiced understanding Discussed blood pressure with patient, patient thought it was because she took gabapentin and cyclobenzaprine earlier, Had patient drink two bottles of water to see if there was any improvement, Afterwards, Patient did admit to vomiting throughout the week, Discussed dangers of dehydration with diabetes and the also dangers of abnormal electrolytes, Throughout visit BP was low and heart rate was high, discussed with patient the need to go to ER by EMS due to low blood pressure advised not to drive. Discussed in detail dangers of driving, Patient still refuses to take EMS, so AMA papers were signed and patient walked steadly to her car Report call at 1645 to [facility] . Current Medication - *CPAP SUPPLIES Miscellaneous Use nightly, 30 days, 0 refills - BD Lancet Ultrafine 33G Miscellaneous use to monitor blood sugars up to 3 times per day, 30 days, 11 refills - Cyclobenzaprine HCl 10 MG Oral Tablet 5 days, 0 refills - Cyclobenzaprine HCl 10 MG Oral Tablet Take one tablet three times per day as needed for pain, 10 days, 0 refills - Diflucan 150 MG Oral Tablet Take one tablet every 72 hours x 2 doses, 2 days, 0 refills - Fenofibrate 160 MG Oral Tablet 1 tab daily, 90 days, 1 refills - FreeStyle Titus 2 Sensor Miscellaneous check blood sugar at least 4 times daily. E10.65, 28 days, 6 refills - Gabapentin 300 MG Oral Capsule Take one tablet three times a day, 10 days, 0 refills - GNP True Metrix Glucose Meter w/Device Kit w/Device Use to monitor blood sugars daily, 30 days, 0 refills - HYDROcodone-Acetaminophen 5-325 MG Oral Tablet 2 days, 0 refills - Ibuprofen 600 MG Oral Tablet 8 days, 0 refills - Insulin Lispro (1 Unit Dial) 100 UNIT/ML Subcutaneous Solution Pen-injector Sliding scale 3 times a day before -231 3units, 201-250- 6 units, 916-853-1qloqg, 905-541-97maali, 351-400-15 units, > 400 18 units, 30 days, 0 refills - Insulin Syringe 31G X 5/16 1 ML Miscellaneous use to inject insulin two times per day, 30 days, 3 refills - Lantus 100 UNIT/ML Subcutaneous Solution Inject subcutaneouly 50 units in the morning, and 50 units before bed every day, 30 days, 5 refills - Lantus SoloStar 100 UNIT/ML Subcutaneous Solution Pen-injector Inject subcutaneouly 50 units in the morning, and 50 units before bed every day, 30 days, 5 refills - Pen [place] 32G X 5 MM Miscellaneous 32G X 5 MM Use with insulin two times per day, 30 days, 11 refills - predniSONE 20 MG Oral Tablet 5 days, 0 refills - True Metrix Blood Glucose Test In Vitro Strip Use to monitor blood sugars three times a day, 30 days, 11 refills Past Medical/Surgical History Reported: Medical: No previous hospitalizations [facility] 04-16-21. Diagnoses: Diabetes mellitus Social History Environmental Exposure: No secondhand cigarette smoke exposure. Behavioral: Not a current tobacco user. Tobacco use: Not using electronic cigarettes/vaping. Former smoker Quit date 2020. Alcohol: Not using alcohol. Drug Use: Not using drugs denied by patient. Sexual: Sexual orientation Straight (not lesbian or red) and gender identity Female. Allergies - NO KNOWN ENVIRONMENTAL ALLERGIES - NO KNOWN FOOD ALLERGIES - Penicillins Reaction: Hives / Urticaria - Statins Reaction: Hives / Urticaria Family History Paternal: Type 2 diabetes mellitus Maternal: Type 2 diabetes mellitus Review Of Systems Head: Head symptoms. Otolaryngeal: No nose and sinus finding. Cardiovascular: No chest pain or discomfort. Palpitations. Pulmonary: No pulmonary symptoms. Gastrointestinal: No gastrointestinal symptoms. Musculoskeletal: Musculoskeletal symptoms. Neurological: No dizziness. Psychological: No psychological symptoms. Skin: No skin symptoms. Physical Findings - Vitals taken 08/21/2024 03:01 pm BP-Sitting R80/60 mmHg BP Cuff SizeRegular Pulse Rate-Bkkesdj086 bpm Temp-Oral97.7 F Txpbrd34 in Kbktpa815 lbs Body Mass Index28.7 kg/m2 Body Surface Area1.9 m2 Oxygen Olmtcecmyd82 % - Vitals taken 08/21/2024 03:17 pm BP-Payoteg54/49 mmHg - Vitals taken 08/21/2024 04:02 pm BP-Khdtzdi14/64 mmHg - Vitals taken 08/21/2024 04:41 pm BP Cuff SizeRegular Vital Signs: - Systolic blood pressure < 130 mmHg. - Diastolic Blood Pressure < 80 mmHg. General Appearance: - Awake. - Alert. Lungs: - Normal. - Respiration rhythm and depth was normal. Cardiovascular: Auscultation: - Normal. Heart Rate And Rhythm: - Normal. Heart Sounds: - Normal. Abdomen: Visual Inspection: - Abdomen was normal on visual inspection. Musculoskeletal System: General/bilateral: - Normal movement of all extremities. Neurological: - Oriented to time, place, and person. Psychiatric: - Expression of emotions normal. Tests Blood Analysis: Blood Endocrine Laboratory Tests: Value Blood glucose level by fingerstick 252 mg/dl Assessment - Body mass index [Body mass index [BMI] 28.0-28.9, adult] - Type 2 diabetes mellitus [Type 2 diabetes mellitus with hyperglycemia] Therapy - Patient refused flu vaccine. Discussed benefits of flu vaccine with Patient. Counseling/Education - Patient has declined preventive screening today Informed discussion completed with the patient including costs, risks and possible outcomes - Patient has declined Behavioral Health Screenings - Patient has declined Behavioral Health Services Patient refuses behavioral health screenings/ services at this time - Discussed nutritional needs teach healthy choices including fruits and vegetables - Patient education about a proper diet - Discussed concerns about exercise: promote physical activity Follow up after ER visit Plan StartCited- Low back pain, unspecified Cyclobenzaprine HCl 10 MG tablet Take one tablet three times per day as needed for pain, 10 days, 0 refills Gabapentin 100 MG capsule Take one tablet three times a day, 15 days, 0 refills Cyclobenzaprine HCl 5 MG tablet Take one daily as needed for pain, DO NOT TAKE WITH GABAPENTIN, 10 days, 0 refills EndCited StartCited- Pain in thoracic spine Gabapentin 300 MG capsule Take one tablet three times a day, 14 days, 0 refills [facility]Cited [id number] History of Present illness Narrative* Bette Gibson - 08/20/2024 3:45 PM EST Physical Therapy [facility] Date: 08/20/2024 Patient Name: Casandra Oviedo Carlos : 1970 Patient called she is not feeling well. Will try and make . Bette Galvan Shock Date: 08/20/2024 documented in this encounterBon [facility] Progress note* Progress note Date Encounter Last Documented by 08/19/2024 [Patient Encounter] Allen lam on 08/19/2024; 10:23 AM, Kavita Qureshi [employer]ING [employer]DEL [employer]; [facility] Active Problems & Conditions - E11.65 - Diabetes Mellitus Type 2 - G47.30 - Periods of Not Breathing While Asleep (Sleep Apnea) Current Medication - *CPAP SUPPLIES Miscellaneous Use nightly, 30 days, 0 refills - BD Lancet Ultrafine 33G Miscellaneous use to monitor blood sugars up to 3 times per day, 30 days, 11 refills - Cyclobenzaprine HCl 10 MG Oral Tablet 5 days, 0 refills - Cyclobenzaprine HCl 10 MG Oral Tablet Take one tablet three times per day as needed for pain, 10 days, 0 refills - Diflucan 150 MG Oral Tablet Take one tablet every 72 hours x 2 doses, 2 days, 0 refills - Fenofibrate 160 MG Oral Tablet 1 tab daily, 90 days, 1 refills - FreeStyle Titus 2 Sensor Miscellaneous check blood sugar at least 4 times daily. E10.65, 28 days, 6 refills - Gabapentin 300 MG Oral Capsule Take one tablet three times a day, 10 days, 0 refills - GNP True Metrix Glucose Meter w/Device Kit w/Device Use to monitor blood sugars daily, 30 days, 0 refills - HYDROcodone-Acetaminophen 5-325 MG Oral Tablet 2 days, 0 refills - Ibuprofen 600 MG Oral Tablet 8 days, 0 refills - Insulin Lispro (1 Unit Dial) 100 UNIT/ML Subcutaneous Solution Pen-injector Sliding scale 3 times a day before jlysy324-130 3units, 201-250- 6 units, 328-686-6wpagw, 520-172-81fmqjj, 351-400-15 units, > 400 18 units, 30 days, 0 refills - Insulin Syringe 31G X 5/16 1 ML Miscellaneous use to inject insulin two times per day, 30 days, 3 refills - Lantus 100 UNIT/ML Subcutaneous Solution Inject subcutaneouly 50 units in the morning, and 50 units before bed every day, 30 days, 5 refills - Lantus SoloStar 100 UNIT/ML Subcutaneous Solution Pen-injector Inject subcutaneouly 50 units in the morning, and 50 units before bed every day, 30 days, 5 refills - Pen [place] 32G X 5 MM Miscellaneous 32G X 5 MM Use with insulin two times per day, 30 days, 11 refills - predniSONE 20 MG Oral Tablet 5 days, 0 refills - True Metrix Blood Glucose Test In Vitro Strip Use to monitor blood sugars three times a day, 30 days, 11 refills Past Medical/Surgical History Reported: Medical: No previous hospitalizations [facility] 04-16-21. Diagnoses: Diabetes mellitus Allergies - NO KNOWN ENVIRONMENTAL ALLERGIES - NO KNOWN FOOD ALLERGIES - Penicillins Reaction: Hives / Urticaria - Statins Reaction: Hives / Urticaria Family History Paternal: Type 2 diabetes mellitus Maternal: Type 2 diabetes mellitus Plan StartCited- Generalized abdominal pain Outside Diagn Tests/Ultrasound: US Retroperitoneal Compl. (Renal/Bladder) (12047) [facility]02-01-2025 Hospital Discharge instructions* Discharge Instructions* Lukas Lopez MD - 08/17/2024 10:46 AM EST Please continue taking medications that you have at home as directed. * Attachments The following attachments cannot be sent through Care Everywhere. * Thoracic Strain (Thai) documented in this encounterBon [facility] History of Present illness Narrative* Fabiana Reynolds, PT - 08/13/2024 3:30 PM EST Images from the original note were not included. [facility] Daily Note Date: 08/13/2024 Patient Name: Casandra Gonzalez : 1970 (54 y.o.) Referring Provider (secondary): Dr. Shepherd ([place]) Diagnosis: Muscle Weakness Treatment Diagnosis: Back pain, Weakness PT Insurance Information: [facility] Total # of Visits Approved: 10 Per Physician Order Total # of Visits to Date: 6 No Show: 1 Canceled Appointment: 0 Pre-Treatment Pain: 6/10 Assessment Assessment: Pain 6/10 in mid back, denies radicular symptoms. Completed therex and manual therapy per Doc Flow. Strength B shld horizontal abd 4+/5, flexion 4+/5. Strength B hip abd 4+/5, B flexion 4-/5. Tandem stance balance x15 sec 2 of 4 trials. Plan to resume PT for 3 more sessions. Plan Continue with current plan of care Exercises/Modalities/Manual: See DocFlow Sheet Education: On ex form Goals (Total # of Visits to Date: 6) Short Term Goals Time Frame for Short Term Goals: 5 visits Short Term Goal 1: Pt to report independence and compliance with HEP for ROM and glut strengthening.-Met Technician Automatic Goals Time Frame for Residential Goals : 10 visits Technician Automatic Goal 1: Pt to improve LEFS from 38/80 to >48/80 to improve pt ADL carlos. Residential Goal 2: Pt to have 4/5 horiz ABD strength to improve posture and reduce LBP.-MET Technician Automatic Goal 3: Pt to maintain tandum stance 10sec 2:3 B/L to improve amb and stair safety.-Met Residential Goal 4: Pt to report worst pain in back 3/10 x 4 consecutive days to improve work carlos Technician Automatic Goal 5: Pt to complete 20# crate lift floor to waist x10 with proper mechanics and no increased pain. Treatment Tolerance: Treatment Tolerance: Tolerated treatment well. Post Treatment Pain: 12/24 Time In: 15:20 Time Out : 16:00 Timed Code Treatment Minutes: 40 Minutes Total Treatment Time: 40 Minutes Fabiana Reynolds, PT Date: 08/13/2024 documented in this encounterBon [facility] Evaluation note Includes: Assessments for all patient encounters Findings Encounter Date [Body mass index [BMI] 28.0- 28.9, adult] assessment of body mass index Medical Established Patient with Kavita Qureshi CNP 08/08/2024 Last Documented On 9:31AM ; [facility] Type 2 diabetes mellitus Medical Established Pat ient with Kavita Hardeep J[employer]RY [employer]ING MODEL [employer]KER 08/08/2024 Last Documented On 5 9:31AM ; [facility] [Body mass index [BMI] 30.0- 30.9, adult] assessment of body mass index Medical Established Patient with Kavita Hardeep JEW[employer]ING [employer] 07/04/2024 Last Documented On 4 8:14AM ; [facility] Type 2 diabetes mellitus Medical Established Pat ient with Kavita Hardeep JEWELRY [employer]ING MODEL [employer]KER 07/04/2024 Last Documented On 4 8:14AM ; [facility] [Body mass index [BMI] 28.0- 28.9, adult] assessment of body mass index Open Access - Established with Kavita Hardeep [employer]ING [employer]DEL [employer]KER 06/06/2024 Last Documented On 4 11:06AM ; [facility] Venipuncture was performed Open Access - Establi shed with Kavita Hardeep [employer]EW[employer]ING MODEL [employer]KER 06/06/2024 Last Documented On 4 11:06AM ; [facility] Assessment of body mass inde x [Body mass index [BMI] 31.0-31.9, adult] Medical Established Patient with Kavita Hardeep [employer]ING [employer]DEL [employer]KER 06/02/2021 Last Documented On 1 5:19PM ; [facility] Type 2 diabetes mellitus Medical Established Pat ient with Kavita Hardeep JEW[employer]ING MODEL [employer]KER 06/02/2021 Last Documented On 1 5:19PM ; [facility] Assessment of body mass inde x [Body mass index [BMI] 31.0-31.9, adult] Medical Established Patient with Kavita Hardeep [employer]EWEL[employer]ING [employer]DEL [employer] 05/18/2021 Last Documented On 1 5:34PM ; [facility] Assessment of body mass inde x [Body mass index [BMI] 29.0-29.9, adult] Medical New Patient with Kavita Hardeep JEWELRY [employer]ING MODEL [employer]KER 04/21/2021 Last Documented On 1 12:10PM ; [facility] Type 2 diabetes mellitus Medical New Patient wit h Kavita Hardeep [employer]ING [employer]DEL [employer]KER 04/21/2021 Last Documented On 1 12:10PM ; [facility] Work Phone: 1(851) 628-729001-23-2025 Evaluation note Includes: Assessments for all patient encounters Findings Encounter Date [Body mass index [BMI] 28.0- 28.9, adult] assessment of body mass index Medical Established Patient with Kavita Hardeep JEWELRY [employer]ING MODEL [employer]KER 08/08/2024 Last Documented On 5 9:31AM ; [facility] Type 2 diabetes mellitus Medical Established Pat ient with Kavita Hardeep JEWELRY [employer]ING [employer]DEL [employer]KER 08/08/2024 Last Documented On 5 9:31AM ; [facility] [Body mass index [BMI] 30.0- 30.9, adult] assessment of body mass index Medical Established Patient with Kavita Hardepe J[employer]EL[employer]ING [employer]DEL [employer]KER 07/04/2024 Last Documented On 4 8:14AM ; [facility] Type 2 diabetes mellitus Medical Established Pat ient with Kavita Hardeep JEWELRY [employer]ING [employer]DEL [employer]KER 07/04/2024 Last Documented On 4 8:14AM ; [facility] [Body mass index [BMI] 28.0- 28.9, adult] assessment of body mass index Open Access - Established with Kavita Hardeep [employer]EL[employer]ING [employer]DEL [employer]KER 06/06/2024 Last Documented On 4 11:06AM ; [facility] Venipuncture was performed Open Access - Establi shed with Kavita Hardeep JEWELRY [employer]ING MODEL [employer]KER 06/06/2024 Last Documented On 4 11:06AM ; [facility] Assessment of body mass inde x [Body mass index [BMI] 31.0-31.9, adult] Medical Established Patient with Kavita Hardeep JEWEL[employer]ING [employer]DEL [employer] 06/02/2021 Last Documented On 1 5:19PM ; [facility] Type 2 diabetes mellitus Medical Established Pat ient with Kavita Hardeep JEWEL[employer]ING MODEL [employer]KER 06/02/2021 Last Documented On 1 5:19PM ; [facility] Assessment of body mass inde x [Body mass index [BMI] 31.0-31.9, adult] Medical Established Patient with Kavita Hardeep [employer]DEL [employer] 05/18/2021 Last Documented On 1 5:34PM ; [facility] Assessment of body mass inde x [Body mass index [BMI] 29.0-29.9, adult] Medical New Patient with Kavita Bryantalina JIMENEZ 04/21/2021 Last Documented On 1 12:10PM ; [facility] Type 2 diabetes mellitus Medical New Patient wit thomas Bryantalina JIMENEZ 04/21/2021 Last Documented On 1 12:10PM ; [facility] Work Phone: 1(358) 902-933101-23-2025 Progress note* Progress note Date Encounter Last Documented by 08/08/2024 Medical Established Patient Last documented on 08/13/2024; 9:31 AM, Kavita Hardeep JIMENEZ; [facility] Active Problems & Conditions - E11.65 - Diabetes Mellitus Type 2 - G47.30 - Periods of Not Breathing While Asleep (Sleep Apnea) Chief Complaint The Chief Complaint is: 1 month A1c follow up and Hospital Follow up. Referred Here Not referred by urgent care clinic. Referred by emergency room. No prior encounters. - Data to be reviewed: no clinical lab tests History of Present Illness Casandra Gonzalez is a 54 year old female. - Allergy list reviewed - Reviewed Medications - test - would not like a test Patient presents for follow up hgba1c went from 12.9 to 11.4, has been dieting Recently was in ER due to severe back pain, patient is in room laying down due to severe pain, reports pain is currently 10/10 sharp Has been following up with chiropractor Current Medication - *CPAP SUPPLIES Miscellaneous Use nightly, 30 days, 0 refills - BD Lancet Ultrafine 33G Miscellaneous use to monitor blood sugars up to 3 times per day, 30 days, 11 refills - Cyclobenzaprine HCl 10 MG Oral Tablet 5 days, 0 refills - Fenofibrate 160 MG Oral Tablet 1 tab daily, 90 days, 1 refills - FreeStyle Titus 2 Sensor Miscellaneous check blood sugar at least 4 times daily. E10.65, 28 days, 6 refills - GNP True Metrix Glucose Meter w/Device Kit w/Device Use to monitor blood sugars daily, 30 days, 0 refills - HYDROcodone-Acetaminophen 5-325 MG Oral Tablet 2 days, 0 refills - Ibuprofen 600 MG Oral Tablet 8 days, 0 refills - Insulin Lispro (1 Unit Dial) 100 UNIT/ML Subcutaneous Solution Pen-injector Sliding scale 3 times a day before khuth152-846 3units, 201-250- 6 units, 448-450-5urugu, 541-361-33ugedo, 351-400-15 units, > 400 18 units, 30 days, 0 refills - Lantus SoloStar 100 UNIT/ML Subcutaneous Solution Pen-injector Inject subcutaneouly 50 units in the morning, and 50 units before bed every day, 30 days, 5 refills - Pen [place] 32G X 5 MM Miscellaneous 32G X 5 MM Use with insulin two times per day, 30 days, 11 refills - predniSONE 20 MG Oral Tablet 5 days, 0 refills - True Metrix Blood Glucose Test In Vitro Strip Use to monitor blood sugars three times a day, 30 days, 11 refills Past Medical/Surgical History Reported: Medical: No previous hospitalizations [facility] 04-16-21. Diagnoses: Diabetes mellitus Social History Environmental Exposure: No secondhand cigarette smoke exposure. Behavioral: Not a current tobacco user. Tobacco use: Not using electronic cigarettes/vaping. Alcohol: Not using alcohol. Drug Use: Not using drugs denied by patient. Sexual: Not sexually active. Sexual orientation Straight (not lesbian or red) and gender identity Female. No report of control being practiced. Allergies - NO KNOWN ENVIRONMENTAL ALLERGIES - NO KNOWN FOOD ALLERGIES - Penicillins Reaction: Hives / Urticaria - Statins Reaction: Hives / Urticaria Family History Paternal: Type 2 diabetes mellitus Maternal: Type 2 diabetes mellitus Review Of Systems Head: Head symptoms. Otolaryngeal: No nose and sinus finding. Cardiovascular: No chest pain or discomfort. Palpitations. Pulmonary: No pulmonary symptoms. Gastrointestinal: No gastrointestinal symptoms. Musculoskeletal: Musculoskeletal symptoms. Neurological: No dizziness. Psychological: No psychological symptoms. Skin: No skin symptoms. Physical Findings - Vitals taken 08/08/2024 03:13 pm BP-Sitting L134/66 mmHg BP Cuff SizeRegular Pulse Rate-Zfbwucf544 bpm Respiration Rate18 per min Temp-Oral98.3 F Wrarqh87 in Sbccle951 lbs Body Mass Index28.7 kg/m2 Body Surface Area1.9 m2 Oxygen Rszebrgtyk62 % Vital Signs: - Systolic blood pressure 130 - 139 mmHg. - Diastolic Blood Pressure < 80 mmHg. General Appearance: - Awake. - Alert. Lungs: - Normal. - Respiration rhythm and depth was normal. Cardiovascular: Auscultation: - Normal. Heart Rate And Rhythm: - Normal. Heart Sounds: - Normal. Abdomen: Visual Inspection: - Abdomen was normal on visual inspection. Musculoskeletal System: General/bilateral: - Normal movement of all extremities. Neurological: - Oriented to time, place, and person. Psychiatric: - Expression of emotions normal. Tests Urinalysis Was Performed: Routine urinalysis without microscopic examination. Protein Negative. Abnormal Glucose 500. Bilirubin Negative, Urobilinogen 0.2, and Nitrite Negative. Abnormal Ketones 5 Trace. Leukocyte Estrase Negative and Blood Negative. Specific [place] 1.015 and pH 5.5. Blood Analysis: Blood Endocrine Laboratory Tests: Value Blood glucose level by fingerstick Non-fasting 456 mg/dl Laboratory-based Chemistry: Urine Tests: Value Urine microalbumin dipstick test was 10 + Urine albumin/creatinine by test strip 30-300. Drug Screen: Urine drug screen by multiple class procedure. THC Not Present, PCP Not Present, OXY Not Present, [id number] Not Present, MTD Not Present, MET Not Present, MDMA Not Present, JOSÉ LUIS Not Present, BZO Not Present, BUP Not Present, BAR Not Present, AMP Not Present, and FYL Not Present. Other Laboratory Tests: Screening for sexually transmitted infections was not performed. Assessment - Body mass index [Body mass index [BMI] 28.0-28.9, adult] - Type 2 diabetes mellitus [Type 2 diabetes mellitus with hyperglycemia] Therapy - Other Administered 2 mL of Ketorolac Tromethamine 60 MG/2ML on 08/08/24 04:15p, Patient tolerated therapy well. No signs or symptoms of adverse reactions. Patient waited in clinic for 15 minutes after administration. - Patient refused flu vaccine. Discussed benefits of flu vaccine with Patient. Counseling/Education - Patient has declined preventive screening today Informed discussion completed with the patient including costs, risks and possible outcomes - Patient has declined Behavioral Health Screenings - Patient has declined Behavioral Health Services Patient declines all BH services/ screenings. Note to refer was on 06/06/24 - Discussed nutritional needs teach healthy choices including fruits and vegetables - Patient education about a proper diet - Not requesting contraception - Discussed concerns about exercise: promote physical activity Discussed following up with spinal specialist Continue to take diabetic medication at same dose Plan StartCited- Acute vaginitis Diflucan 150 MG tablet Take one tablet every 72 hours x 2 doses, 2 days, 0 refills EndCited StartCited- Encounter for screening for malignant neoplasm of colon Lab: Cologuard EndCited StartCited- Low back pain, unspecified In House Medications/Inject/Aerosol Codes: 51693 Therapeutic Prophy or Diag Injection, EACH In House Medications/Meds: Ketorolac 60 mg/2ml INJ (Toradol) Cyclobenzaprine HCl 10 MG tablet Take one tablet three times per day as needed for pain, 10 days, 0 refills EndCited StartCited- Pain in thoracic spine Outside Diagn Tests/X-RAY: XR Spine Thoracic 4+ Views (75205), XR Spine Cervical 3 Views or less ([id number]) Referrals: Orthopedics Instructions: Please make a referral to:[facility] [place] Gabapentin 300 MG capsule Take one tablet three times a day, 10 days, 0 refills EndCited StartCited- Type 2 diabetes mellitus with hyperglycemia Lantus 100 UNIT/ML mL Inject subcutaneouly 50 units in the morning, and 50 units before bed every day, 30 days, 5 refills Insulin Syringe 31G X 5/16 1 ML each use to inject insulin two times per day, 30 days, 3 refills EndCited User Defined 1 Not planning a in the next year. [facility]01-23-2025 Progress note* Progress note Date Encounter Last Documented by 08/08/2024 Medical Established Patient Last documented on 08/21/2024; 4:23 PM, Kavita Qureshi CNP; [facility] Active Problems & Conditions - E11.65 - Diabetes Mellitus Type 2 - M54.6 - Pain in the Thoracic Spine - G47.30 - Periods of Not Breathing While Asleep (Sleep Apnea) Chief Complaint The Chief Complaint is: 1 month A1c follow up and Hospital Follow up. Referred Here Not referred by urgent care clinic. Referred by emergency room. No prior encounters. - Data to be reviewed: no clinical lab tests History of Present Illness Casandra Gonzalez is a 54 year old female. - Allergy list reviewed - Reviewed Medications - test - would not like a test Patient presents for follow up hgba1c went from 12.9 to 11.4, has been dieting Recently was in ER due to severe back pain, patient is in room laying down due to severe pain, reports pain is currently 10/10 sharp Has been following up with chiropractor Current Medication - *CPAP SUPPLIES Miscellaneous Use nightly, 30 days, 0 refills - BD Lancet Ultrafine 33G Miscellaneous use to monitor blood sugars up to 3 times per day, 30 days, 11 refills - Cyclobenzaprine HCl 10 MG Oral Tablet 5 days, 0 refills - Fenofibrate 160 MG Oral Tablet 1 tab daily, 90 days, 1 refills - FreeStyle Titus 2 Sensor Miscellaneous check blood sugar at least 4 times daily. E10.65, 28 days, 6 refills - GNP True Metrix Glucose Meter w/Device Kit w/Device Use to monitor blood sugars daily, 30 days, 0 refills - HYDROcodone-Acetaminophen 5-325 MG Oral Tablet 2 days, 0 refills - Ibuprofen 600 MG Oral Tablet 8 days, 0 refills - Insulin Lispro (1 Unit Dial) 100 UNIT/ML Subcutaneous Solution Pen-injector Sliding scale 3 times a day before [id number] 3units, 201-250- 6 units, 450-277-1qzqep, 348-999-71lvgkw, 351-400-15 units, > 400 18 units, 30 days, 0 refills - Lantus SoloStar 100 UNIT/ML Subcutaneous Solution Pen-injector Inject subcutaneouly 50 units in the morning, and 50 units before bed every day, 30 days, 5 refills - Pen [place] 32G X 5 MM Miscellaneous 32G X 5 MM Use with insulin two times per day, 30 days, 11 refills - predniSONE 20 MG Oral Tablet 5 days, 0 refills - True Metrix Blood Glucose Test In Vitro Strip Use to monitor blood sugars three times a day, 30 days, 11 refills Past Medical/Surgical History Reported: Medical: No previous hospitalizations [facility] 04-16-21. Diagnoses: Diabetes mellitus Social History Environmental Exposure: No secondhand cigarette smoke exposure. Behavioral: Not a current tobacco user. Tobacco use: Not using electronic cigarettes/vaping. Alcohol: Not using alcohol. Drug Use: Not using drugs denied by patient. Sexual: Not sexually active. Sexual orientation Straight (not lesbian or red) and gender identity Female. No report of control being practiced. Allergies - NO KNOWN ENVIRONMENTAL ALLERGIES - NO KNOWN FOOD ALLERGIES - Penicillins Reaction: Hives / Urticaria - Statins Reaction: Hives / Urticaria Family History Paternal: Type 2 diabetes mellitus Maternal: Type 2 diabetes mellitus Review Of Systems Head: Head symptoms. Otolaryngeal: No nose and sinus finding. Cardiovascular: No chest pain or discomfort. Palpitations. Pulmonary: No pulmonary symptoms. Gastrointestinal: No gastrointestinal symptoms. Musculoskeletal: Musculoskeletal symptoms. Neurological: No dizziness. Psychological: No psychological symptoms. Skin: No skin symptoms. Physical Findings - Vitals taken 08/08/2024 03:13 pm BP-Sitting L134/66 mmHg BP Cuff SizeRegular Pulse Rate-Hclmdxq893 bpm Respiration Rate18 per min Temp-Oral98.3 F Khanqw62 in [place] lbs Body Mass Index28.7 kg/m2 Body Surface Area1.9 m2 Oxygen Reulqoqwco90 % Vital Signs: - Systolic blood pressure 130 - 139 mmHg. - Diastolic Blood Pressure < 80 mmHg. General Appearance: - Awake. - Alert. Lungs: - Normal. - Respiration rhythm and depth was normal. Cardiovascular: Auscultation: - Normal. Heart Rate And Rhythm: - Normal. Heart Sounds: - Normal. Abdomen: Visual Inspection: - Abdomen was normal on visual inspection. Musculoskeletal System: General/bilateral: - Normal movement of all extremities. Neurological: - Oriented to time, place, and person. Psychiatric: - Expression of emotions normal. Tests Urinalysis Was Performed: Routine urinalysis without microscopic examination. Protein Negative. Abnormal Glucose 500. Bilirubin Negative, Urobilinogen 0.2, and Nitrite Negative. Abnormal Ketones 5 Trace. Leukocyte Estrase Negative and Blood Negative. Specific [place] 1.015 and pH 5.5. Blood Analysis: Hemoglobin Studies: ValueDate Blood hemoglobin A1c 11.4%08/08/2024 Hemoglobin A1c level > 9.0%. Blood Endocrine Laboratory Tests: Value Blood glucose level by fingerstick Non-fasting 456 mg/dl Laboratory-based Chemistry: Urine Tests: Value Urine microalbumin dipstick test was 10 + Urine albumin/creatinine by test strip 30-300. Drug Screen: Urine drug screen by multiple class procedure. THC Not Present, PCP Not Present, OXY Not Present, [id number] Not Present, MTD Not Present, MET Not Present, MDMA Not Present, JOSÉ LUIS Not Present, BZO Not Present, BUP Not Present, BAR Not Present, AMP Not Present, and FYL Not Present. Other Laboratory Tests: Screening for sexually transmitted infections was not performed. Assessment - Body mass index [Body mass index [BMI] 28.0-28.9, adult] - Type 2 diabetes mellitus [Type 2 diabetes mellitus with hyperglycemia] Therapy - Other Administered 2 mL of Ketorolac Tromethamine 60 MG/2ML on 08/08/24 04:15p, Patient tolerated therapy well. No signs or symptoms of adverse reactions. Patient waited in clinic for 15 minutes after administration. - Patient refused flu vaccine. Discussed benefits of flu vaccine with Patient. Counseling/Education - Patient has declined preventive screening today Informed discussion completed with the patient including costs, risks and possible outcomes - Patient has declined Behavioral Health Screenings - Patient has declined Behavioral Health Services Patient declines all BH services/ screenings. Note to refer was on 06/06/24 - Discussed nutritional needs teach healthy choices including fruits and vegetables - Patient education about a proper diet - Referred Patient to a Diabetes Self-Management Program - Not requesting contraception - Discussed concerns about exercise: promote physical activity Discussed following up with spinal specialist Continue to take diabetic medication at same dose Plan StartCited- Acute vaginitis Diflucan 150 MG tablet Take one tablet every 72 hours x 2 doses, 2 days, 0 refills EndCited StartCited- Encounter for screening for malignant neoplasm of colon Lab: Cologuard EndCited StartCited- Low back pain, unspecified In House Medications/Inject/Aerosol Codes: 03134 Therapeutic Prophy or Diag Injection, EACH In House Medications/Meds: Ketorolac 60 mg/2ml INJ (Toradol) Cyclobenzaprine HCl 10 MG tablet Take one tablet three times per day as needed for pain, 10 days, 0 refills EndCited StartCited- Pain in thoracic spine Outside Diagn Tests/X-RAY: XR Spine Thoracic 4+ Views (70112), XR Spine Cervical 3 Views or less (09529) Referrals: Orthopedics Instructions: Please make a referral to:[facility] Gabapentin 300 MG capsule Take one tablet three times a day, 10 days, 0 refills EndCited StartCited- Type 2 diabetes mellitus with hyperglycemia Lantus 100 UNIT/ML mL Inject subcutaneouly 50 units in the morning, and 50 units before bed every day, 30 days, 5 refills Insulin Syringe 31G X 5/16 1 ML each use to inject insulin two times per day, 30 days, 3 refills EndCited User Defined 1 Not planning a in the next year. [facility]01-23-2025 Progress note* Progress note Date Encounter Last Documented by 08/08/2024 Medical Established Patient Last documented on 08/21/2024; 4:22 PM, Kavita Qureshi CNP; [facility] Active Problems & Conditions - E11.65 - Diabetes Mellitus Type 2 - M54.6 - Pain in the Thoracic Spine - G47.30 - Periods of Not Breathing While Asleep (Sleep Apnea) Chief Complaint The Chief Complaint is: 1 month A1c follow up and Hospital Follow up. Referred Here Not referred by urgent care clinic. Referred by emergency room. No prior encounters. - Data to be reviewed: no clinical lab tests History of Present Illness Casandra Gonzalez is a 54 year old female. - Allergy list reviewed - Reviewed Medications - test - would not like a test Patient presents for follow up hgba1c went from 12.9 to 11.4, has been dieting Recently was in ER due to severe back pain, patient is in room laying down due to severe pain, reports pain is currently 10/10 sharp Has been following up with chiropractor Current Medication - *CPAP SUPPLIES Miscellaneous Use nightly, 30 days, 0 refills - BD Lancet Ultrafine 33G Miscellaneous use to monitor blood sugars up to 3 times per day, 30 days, 11 refills - Cyclobenzaprine HCl 10 MG Oral Tablet 5 days, 0 refills - Fenofibrate 160 MG Oral Tablet 1 tab daily, 90 days, 1 refills - FreeStyle Titus 2 Sensor Miscellaneous check blood sugar at least 4 times daily. E10.65, 28 days, 6 refills - GNP True Metrix Glucose Meter w/Device Kit w/Device Use to monitor blood sugars daily, 30 days, 0 refills - HYDROcodone-Acetaminophen 5-325 MG Oral Tablet 2 days, 0 refills - Ibuprofen 600 MG Oral Tablet 8 days, 0 refills - Insulin Lispro (1 Unit Dial) 100 UNIT/ML Subcutaneous Solution Pen-injector Sliding scale 3 times a day before -829 3units, 201-250- 6 units, 589-858-3ojxuj, 083-547-96nuyir, 351-400-15 units, > 400 18 units, 30 days, 0 refills - Lantus SoloStar 100 UNIT/ML Subcutaneous Solution Pen-injector Inject subcutaneouly 50 units in the morning, and 50 units before bed every day, 30 days, 5 refills - Pen [place] 32G X 5 MM Miscellaneous 32G X 5 MM Use with insulin two times per day, 30 days, 11 refills - predniSONE 20 MG Oral Tablet 5 days, 0 refills - True Metrix Blood Glucose Test In Vitro Strip Use to monitor blood sugars three times a day, 30 days, 11 refills Past Medical/Surgical History Reported: Medical: No previous hospitalizations [facility] 04-16-21. Diagnoses: Diabetes mellitus Social History Environmental Exposure: No secondhand cigarette smoke exposure. Behavioral: Not a current tobacco user. Tobacco use: Not using electronic cigarettes/vaping. Alcohol: Not using alcohol. Drug Use: Not using drugs denied by patient. Sexual: Not sexually active. Sexual orientation Straight (not lesbian or red) and gender identity Female. No report of control being practiced. Allergies - NO KNOWN ENVIRONMENTAL ALLERGIES - NO KNOWN FOOD ALLERGIES - Penicillins Reaction: Hives / Urticaria - Statins Reaction: Hives / Urticaria Family History Paternal: Type 2 diabetes mellitus Maternal: Type 2 diabetes mellitus Review Of Systems Head: Head symptoms. Otolaryngeal: No nose and sinus finding. Cardiovascular: No chest pain or discomfort. Palpitations. Pulmonary: No pulmonary symptoms. Gastrointestinal: No gastrointestinal symptoms. Musculoskeletal: Musculoskeletal symptoms. Neurological: No dizziness. Psychological: No psychological symptoms. Skin: No skin symptoms. Physical Findings - Vitals taken 08/08/2024 03:13 pm BP-Sitting L134/66 mmHg BP Cuff SizeRegular Pulse Rate-Ygtaprs748 bpm Respiration Rate18 per min Temp-Oral98.3 F Cxmhdj42 in [place]362 lbs Body Mass Index28.7 kg/m2 Body Surface Area1.9 m2 Oxygen Sdjpqcivvo91 % Vital Signs: - Systolic blood pressure 130 - 139 mmHg. - Diastolic Blood Pressure < 80 mmHg. General Appearance: - Awake. - Alert. Lungs: - Normal. - Respiration rhythm and depth was normal. Cardiovascular: Auscultation: - Normal. Heart Rate And Rhythm: - Normal. Heart Sounds: - Normal. Abdomen: Visual Inspection: - Abdomen was normal on visual inspection. Musculoskeletal System: General/bilateral: - Normal movement of all extremities. Neurological: - Oriented to time, place, and person. Psychiatric: - Expression of emotions normal. Tests Urinalysis Was Performed: Routine urinalysis without microscopic examination. Protein Negative. Abnormal Glucose 500. Bilirubin Negative, Urobilinogen 0.2, and Nitrite Negative. Abnormal Ketones 5 Trace. Leukocyte Estrase Negative and Blood Negative. Specific [place] 1.015 and pH 5.5. Blood Analysis: Hemoglobin Studies: ValueDate Blood hemoglobin A1c 11.4%08/08/2024 Hemoglobin A1c level > 9.0%. Blood Endocrine Laboratory Tests: Value Blood glucose level by fingerstick Non-fasting 456 mg/dl Laboratory-based Chemistry: Urine Tests: Value Urine microalbumin dipstick test was 10 + Urine albumin/creatinine by test strip 30-300. Drug Screen: Urine drug screen by multiple class procedure. THC Not Present, PCP Not Present, OXY Not Present, [id number] Not Present, MTD Not Present, MET Not Present, MDMA Not Present, JOSÉ LUIS Not Present, BZO Not Present, BUP Not Present, BAR Not Present, AMP Not Present, and FYL Not Present. Other Laboratory Tests: Screening for sexually transmitted infections was not performed. Assessment - Body mass index [Body mass index [BMI] 28.0-28.9, adult] - Type 2 diabetes mellitus [Type 2 diabetes mellitus with hyperglycemia] Therapy - Other Administered 2 mL of Ketorolac Tromethamine 60 MG/2ML on 08/08/24 04:15p, Patient tolerated therapy well. No signs or symptoms of adverse reactions. Patient waited in clinic for 15 minutes after administration. - Patient refused flu vaccine. Discussed benefits of flu vaccine with Patient. Counseling/Education - Patient has declined preventive screening today Informed discussion completed with the patient including costs, risks and possible outcomes - Patient has declined Behavioral Health Screenings - Patient has declined Behavioral Health Services Patient declines all BH services/ screenings. Note to refer was on 06/06/24 - Discussed nutritional needs teach healthy choices including fruits and vegetables - Patient education about a proper diet - Referred Patient to a Diabetes Self-Management Program - Not requesting contraception - Discussed concerns about exercise: promote physical activity Discussed following up with spinal specialist Continue to take diabetic medication at same dose Plan StartCited- Acute vaginitis Diflucan 150 MG tablet Take one tablet every 72 hours x 2 doses, 2 days, 0 refills EndCited StartCited- Encounter for screening for malignant neoplasm of colon Lab: Cologuard EndCited StartCited- Low back pain, unspecified In House Medications/Inject/Aerosol Codes: 83018 Therapeutic Prophy or Diag Injection, EACH In House Medications/Meds: Ketorolac 60 mg/2ml INJ (Toradol) Cyclobenzaprine HCl 10 MG tablet Take one tablet three times per day as needed for pain, 10 days, 0 refills EndCited StartCited- Pain in thoracic spine Outside Diagn Tests/X-RAY: XR Spine Thoracic 4+ Views (00028), XR Spine Cervical 3 Views or less ([id number]) Referrals: Orthopedics Instructions: Please make a referral to:[facility] Gabapentin 300 MG capsule Take one tablet three times a day, 10 days, 0 refills EndCited StartCited- Type 2 diabetes mellitus with hyperglycemia Lantus 100 UNIT/ML mL Inject subcutaneouly 50 units in the morning, and 50 units before bed every day, 30 days, 5 refills Insulin Syringe 31G X 5/16 1 ML each use to inject insulin two times per day, 30 days, 3 refills EndCited User Defined 1 Not planning a in the next year. [facility]01-14-2025 History of Present illness Narrative* Samira Yoo - 07/30/2024 1:45 PM EST Images from the original note were not included. [facility] Daily Note Date: 07/30/2024 Patient Name: Casandra Gonzalez : 1970 (54 y.o.) Referring Provider (secondary): Kavita Qureshi CNP Diagnosis: Muscle Weakness Treatment Diagnosis: Back pain, Weakness PT Insurance Information: [employer] Total # of Visits Approved: 10 Per Physician Order Total # of Visits to Date: 4 No Show: 1 Canceled Appointment: 0 Pre-Treatment Pain: 11/23 Assessment Assessment: Pain 11/23 which . She refuses shuttle today d/t she states it popped her hip out withtransferring off last visit.She had seen the chiropractor that day and again yesterday. Held shuttle, added wall slide with ball with good carlos. Therex /NMR as outlined. Good overall carlos to session. Plan Continue with current plan of care Exercises/Modalities/Manual: See DocFlow Sheet Education: ex progression Goals (Total # of Visits to Date: 4) Short Term Goals Time Frame for Short Term Goals: 5 visits Short Term Goal 1: Pt to report independence and compliance with HEP for ROM and glut strengthening. Technician Automatic Goals Time Frame for Technician Automatic Goals : 10 visits Residential Goal 1: Pt to improve LEFS from 38/80 to >48/80 to improve pt ADL carlos. Technician Automatic Goal 2: Pt to have 4/5 horiz ABD strength to improve posture and reduce LBP. Technician Automatic Goal 3: Pt to maintain tandum stance 10sec 2:3 B/L to improve amb and stair safety. Technician Automatic Goal 4: Pt to report worst pain in back 3/10 x 4 consecutive days to improve work carlos Residential Goal 5: Pt to complete 20# crate lift floor to waist x10 with proper mechanics and no increased pain. Treatment Tolerance: Carlos well Post Treatment Pain: 11/23 Time In: 1345 Time Out : 1425 Timed Code Treatment Minutes: 40 Minutes Total Treatment Time: 40 Minutes Samira Yoo [employer] Date: 07/30/2024 documented in this encounterBon [facility] History of Present illness Narrative* Samira Yoo - 07/25/2024 1:30 PM EST Images from the original note were not included. [facility] Daily Note Date: 07/25/2024 Patient Name: Casandra Gonzalez : 1970 (54 y.o.) Referring Provider (secondary): Kavita Qureshi CNP Diagnosis: Muscle Weakness Treatment Diagnosis: Back pain, Weakness PT Insurance Information: [employer] Total # of Visits Approved: 10 Per Physician Order Total # of Visits to Date: 3 No Show: 1 Canceled Appointment: 0 Pre-Treatment Pain: 11/23 Assessment Assessment: Pt reports pain 10 today. Performed ex/NMR as outlined. Progressed with shuttle for LE strengthening with good carlos, req assist on /off shuttle d/t pt fear of twisting hip. Will progressas carlos. Plan Continue with current plan of care Exercises/Modalities/Manual: See DocFlow Sheet Education: ex progression Goals (Total # of Visits to Date: 3) Short Term Goals Time Frame for Short Term Goals: 5 visits Short Term Goal 1: Pt to report independence and compliance with HEP for ROM and glut strengthening. Technician Automatic Goals Time Frame for Technician Automatic Goals : 10 visits Technician Automatic Goal 1: Pt to improve LEFS from 38/80 to >48/80 to improve pt ADL carlos. Residential Goal 2: Pt to have 4/5 horiz ABD strength to improve posture and reduce LBP. Technician Automatic Goal 3: Pt to maintain tandum stance 10sec 2:3 B/L to improve amb and stair safety. Residential Goal 4: Pt to report worst pain in back 3/10 x 4 consecutive days to improve work carlos Residential Goal 5: Pt to complete 20# crate lift floor to waist x10 with proper mechanics and no increased pain. Post Treatment Pain: 09/23 Time In: 1330 Time Out : 1415 Timed and total 45 min Samira Yoo [employer] TRA[employer] Date: 07/25/2024 documented in this encounterBon [facility] History of Present illness Narrative* Judy Miller, PT - 07/16/2024 1:00 PM EST [facility] Date: 07/16/2024 Patient Name: Casandra Gonzalez : 1970 Pt No Showed Appt - called and spoke to pt. She did not relies today's date. Pt confirmed her appt for 07/18/23 at 1:45pm Judy Miller, PT Date: 07/16/2024 documented in this encounterBon [facility] Evaluation note Includes: Assessments for all patient encounters Findings Encounter Date [Body mass index [BMI] 30.0- 30.9, adult] assessment of body mass index Medical Established Patient with Kavita Qureshi CNP 07/04/2024 Last Documented On 4 8:14AM ; [facility] Type 2 diabetes mellitus Medical Established Pat ient with Kavita Hardeep [facility] 07/04/2024 Last Documented On 4 8:14AM ; [facility] [Body mass index [BMI] 28.0- 28.9, adult] assessment of body mass index Open Access - Established with Kavita Qureshi [facility] 06/06/2024 Last Documented On 4 11:06AM ; [facility] Venipuncture was performed Open Access - Establi shed with Kavita Qureshi [facility] 06/06/2024 Last Documented On 4 11:06AM ; [facility] Assessment of body mass inde x [Body mass index [BMI] 31.0-31.9, adult] Medical Established Patient with Kavita Hardeep [employer] 06/02/2021 Last Documented On 1 5:19PM ; [facility] Type 2 diabetes mellitus Medical Established Pat ient with Kavita Hardeep [employer] 06/02/2021 Last Documented On 1 5:19PM ; [facility] Assessment of body mass inde x [Body mass index [BMI] 31.0-31.9, adult] Medical Established Patient with Kavita Qureshi CNP 05/18/2021 Last Documented On 1 5:34PM ; [facility] Assessment of body mass inde x [Body mass index [BMI] 29.0-29.9, adult] Medical New Patient with Kavita Qureshi CNP 04/21/2021 Last Documented On 1 12:10PM ; [facility] Type 2 diabetes mellitus Medical New Patient wit h Kavita Qureshi [employer] 04/21/2021 Last Documented On 1 12:10PM ; [facility] Work Phone: [phone]) 992-862312-19-2024 Progress note* Progress note Date Encounter Last Documented by 07/04/2024 Medical Established Patient Last documented on 07/08/2024; 8:14 AM, Kavita Qureshi TONY; [facility] Active Problems & Conditions - E11.65 - Diabetes Mellitus Type 2 - G47.30 - Periods of Not Breathing While Asleep (Sleep Apnea) Chief Complaint The Chief Complaint is: 1 month follow up for DM. Referred Here Not referred by urgent care clinic and not the emergency room. No prior encounters. History of Present Illness Casandra Gonzalez is a 54 year old female. - Allergy list reviewed - Reviewed Medications Patient presents for diabetes follow up Has a free style titus, and reports that she would like to have a back up glucometer Average blood sugars in the morning are 150s -170s in the mornings but then averages in 300s Patient has pounds since last visit, blames this on the insulin, so does not want to increase insulin Only take insulin lispro with meals Current Medication - *CPAP SUPPLIES Miscellaneous Use nightly, 30 days, 0 refills - Fenofibrate 160 MG Oral Tablet 1 tab daily, 90 days, 1 refills - FreeStyle Titus 2 Sensor Miscellaneous check blood sugar at least 4 times daily. E10.65, 28 days, 6 refills - Insulin Lispro (1 Unit Dial) 100 UNIT/ML Subcutaneous Solution Pen-injector 30 days, 0 refills - Lantus SoloStar 100 UNIT/ML Subcutaneous Solution Pen-injector Inject subcutaneouly 50 units in the morning, and 50 units before bed every day, 30 days, 0 refills - Pen [place] 32G X 5 MM Miscellaneous 32G X 5 MM Use with insulin two times per day, 30 days, 11 refills Past Medical/Surgical History Reported: Medical: No previous hospitalizations [facility] 04-16-21. Diagnoses: Diabetes mellitus Social History Environmental Exposure: No secondhand cigarette smoke exposure. Behavioral: Not a current tobacco user. Tobacco use: Not using electronic cigarettes/vaping. Former smoker Quit date 2019. Alcohol: Not using alcohol. Drug Use: Not using drugs denied by patient. Sexual: Sexual orientation Straight (not lesbian or red) and gender identity Female. Allergies - NO KNOWN ENVIRONMENTAL ALLERGIES - NO KNOWN FOOD ALLERGIES - Penicillins Reaction: Hives / Urticaria - Statins Reaction: Hives / Urticaria Family History Paternal: Type 2 diabetes mellitus Maternal: Type 2 diabetes mellitus Review Of Systems Head: Head symptoms. Otolaryngeal: No nose and sinus finding. Cardiovascular: Chest pain or discomfort intermittent and palpitations. Pulmonary: No pulmonary symptoms. Gastrointestinal: No gastrointestinal symptoms. Musculoskeletal: Musculoskeletal symptoms weakness. Neurological: Dizziness. Psychological: No psychological symptoms. Skin: No skin symptoms. Physical Findings - Vitals taken 07/04/2024 02:40 pm BP-Sitting R121/81 mmHg BP Cuff SizeRegular Pulse Rate-Mgujuvd234 bpm Temp-Oral98.1 F Dqfakg25 in Qcwbet869 lbs 3.2 oz Body Mass Index30.9 kg/m2 Body Surface Area2 m2 Oxygen Otofjajoem88 % - Vitals taken 07/04/2024 02:48 pm BP-Savolpm398/82 mmHg Vital Signs: - Systolic blood pressure < 130 mmHg. - Diastolic blood pressure 80-89 mmHg. General Appearance: - Awake. - Alert. Lungs: - Normal. - Respiration rhythm and depth was normal. Cardiovascular: Auscultation: - Normal. Heart Rate And Rhythm: - Normal. Heart Sounds: - Normal. Abdomen: Visual Inspection: - Abdomen was normal on visual inspection. Musculoskeletal System: General/bilateral: - Normal movement of all extremities. Neurological: - Oriented to time, place, and person. Psychiatric: - Expression of emotions normal. Tests Blood Analysis: Hemoglobin Studies: ValueDate Blood hemoglobin A1c 13.9%07/04/2024 Hemoglobin A1c level > 9.0%. Blood Endocrine Laboratory Tests: Value Blood glucose level by fingerstick Non-fasting 306 mg/dl Assessment - Body mass index [Body mass index [BMI] 30.0-30.9, adult] - Type 2 diabetes mellitus [Type 2 diabetes mellitus with hyperglycemia] Therapy - Patient refused flu vaccine. Discussed benefits of flu vaccine with Patient. Counseling/Education - Patient has declined preventive screening today Informed discussion completed with the patient including costs, risks and possible outcomes - Patient has declined Behavioral Health Screenings - Patient has declined Behavioral Health Services - Discussed nutritional needs teach healthy choices including fruits and vegetables - Patient education about a proper diet - Referred Patient to a Diabetes Self-Management Program - Discussed concerns about exercise: promote physical activity Follow up in one month Plan StartCited- Type 2 diabetes mellitus with hyperglycemia Lantus SoloStar 100 UNIT/ML mL Inject subcutaneouly 50 units in the morning, and 50 units before bed every day, 30 days, 5 refills Insulin Lispro (1 Unit Dial) 100 UNIT/ML mL Sliding scale 3 times a day before ehnvh172-568 3units, 201-250- 6 units, 377-969-5wlsse, 296-224-88momrl, 351-400-15 units, > 400 18 units, 30 days, 0 refills True Metrix Blood Glucose Test strip Use to monitor blood sugars three times a day, 30 days, 11 refills GNP True Metrix Glucose Meter w/Device Kit Use to monitor blood sugars daily, 30 days, 0 refills BD Lancet Ultrafine 33G unspecified use to monitor blood sugars up to 3 times per day, 30 days, 11 refills EndCited [facility]12-09-2024 Progress note* Progress note Date Encounter Last Documented by 06/24/2024 [Patient Encounter] Last shorty lam on 06/24/2024; 1:46 PM, Kavita Qureshi CNP; [facility] Active Problems & Conditions - E11.65 - Diabetes Mellitus Type 2 - G47.30 - Periods of Not Breathing While Asleep (Sleep Apnea) Current Medication - *CPAP SUPPLIES Miscellaneous Use nightly, 30 days, 0 refills - Fenofibrate 160 MG Oral Tablet 1 tab daily, 90 days, 1 refills - Insulin Lispro (1 Unit Dial) 100 UNIT/ML Subcutaneous Solution Pen-injector 30 days, 0 refills - Lantus SoloStar 100 UNIT/ML Subcutaneous Solution Pen-injector Inject subcutaneouly 20 units in the morning, and 20 units before bed every day, 30 days, 0 refills - Pen [place] 32G X 5 MM Miscellaneous 32G X 5 MM Use with insulin two times per day, 30 days, 11 refills Past Medical/Surgical History Reported: Medical: No previous hospitalizations [facility] 04-16-21. Diagnoses: Diabetes mellitus Allergies - NO KNOWN ENVIRONMENTAL ALLERGIES - NO KNOWN FOOD ALLERGIES - Penicillins Reaction: Hives / Urticaria - Statins Reaction: Hives / Urticaria Family History Paternal: Type 2 diabetes mellitus Maternal: Type 2 diabetes mellitus Plan StartCited- Type 2 diabetes mellitus with hyperglycemia Lantus SoloStar 100 UNIT/ML mL Inject subcutaneouly 50 units in the morning, and 50 units before bed every day, 30 days, 0 refills FreeStyle Titus 2 Sensor each check blood sugar at least 4 times daily. E10.65, 28 days, 6 refills EndCited [facility]11-25-2024 Progress note* Progress note Date Encounter Last Documented by 06/10/2024 Chart Update Last documented on 06/10/2024; 9:45 AM, Juan Choudhary LIFE SKILLS TRAINER; [facility] Active Problems & Conditions - E11.65 - Diabetes Mellitus Type 2 - G47.30 - Periods of Not Breathing While Asleep (Sleep Apnea) Chief Complaint Phone Call - Chief Concern: labs reviewed she is allergic to statins. she will be started on fenofibrate. she was also instructed to increase her lantus to 60 units bid as blood sugars have stayed above 300. Current Medication - *CPAP SUPPLIES Miscellaneous Use nightly, 30 days, 0 refills - Lantus SoloStar 100 UNIT/ML Subcutaneous Solution Pen-injector Inject subcutaneouly 20 units in the morning, and 20 units before bed every day, 30 days, 0 refills - Pen [place] 32G X 5 MM Miscellaneous 32G X 5 MM Use with insulin two times per day, 30 days, 11 refills Past Medical/Surgical History Reported: Medical: Previous hospitalizations [facility] 04-16-21. Diagnoses: Diabetes mellitus Allergies - NO KNOWN ENVIRONMENTAL ALLERGIES - NO KNOWN FOOD ALLERGIES - Penicillins Reaction: Hives / Urticaria - Statins Reaction: Hives / Urticaria Family History Paternal: Type 2 diabetes mellitus Maternal: Type 2 diabetes mellitus Plan StartCited- Other Fenofibrate 160 MG tablet 1 tab daily, 90 days, 1 refills EndCited [facility]11-21-2024 Evaluation note Includes: Assessments for all patient encounters Findings Encounter Date [Body mass index [BMI] 28.0- 28.9, adult] assessment of body mass index Open Access - Established with aKvita Qureshi JEWELRY CASTING MODEL MAKER 06/06/2024 Last Documented On 4 2:03PM ; [facility] Venipuncture was performed Open Access - Establi shed with Kavita Qureshi JEWELRY CASTING MODEL MAKER 06/06/2024 Last Documented On 4 2:03PM ; [facility] Assessment of body mass inde x [Body mass index [BMI] 31.0-31.9, adult] Medical Established Patient with Kavita Hardeep JEWELRY CASTING MODEL MAKER 06/02/2021 Last Documented On 1 5:19PM ; [facility] Type 2 diabetes mellitus Medical Established Pat ient with Kavita Qureshi JEWELRY CASTING MODEL MAKER 06/02/2021 Last Documented On 1 5:19PM ; [facility] Assessment of body mass inde x [Body mass index [BMI] 31.0-31.9, adult] Medical Established Patient with Kavita Hardeep JEWELRY CASTING MODEL MAKER 05/18/2021 Last Documented On 1 5:34PM ; [facility] Assessment of body mass inde x [Body mass index [BMI] 29.0-29.9, adult] Medical New Patient with Kavita Hardeep JEWELRY CASTING MODEL MAKER 04/21/2021 Last Documented On 1 12:10PM ; [facility] Type 2 diabetes mellitus Medical New Patient wit h Kavita Qureshi JEWELRY CASTING MODEL MAKER 04/21/2021 Last Documented On 1 12:10PM ; [facility] Work Phone: 1(520) 600-862211-21-2024 Evaluation note Includes: Assessments for all patient encounters Findings Encounter Date [Body mass index [BMI] 28.0- 28.9, adult] assessment of body mass index Open Access - Established with Kavita Hardeep JEWELRY CASTING MODEL MAKER 06/06/2024 Last Documented On 4 11:06AM ; [facility] Venipuncture was performed Open Access - Establi shed with Kavita Hardeep JEWELRY CASTING MODEL MAKER 06/06/2024 Last Documented On 4 11:06AM ; [facility] Assessment of body mass inde x [Body mass index [BMI] 31.0-31.9, adult] Medical Established Patient with Kavita Hardeep JEWELRY CASTING MODEL MAKER 06/02/2021 Last Documented On 1 5:19PM ; [facility] Type 2 diabetes mellitus Medical Established Pat ient with Kavita Hardeep JEWELRY CASTING MODEL MAKER 06/02/2021 Last Documented On 1 5:19PM ; [facility] Assessment of body mass inde x [Body mass index [BMI] 31.0-31.9, adult] Medical Established Patient with Kavita Hardeep JEWELRY CASTING MODEL MAKER 05/18/2021 Last Documented On 1 5:34PM ; [facility] Assessment of body mass inde x [Body mass index [BMI] 29.0-29.9, adult] Medical New Patient with Kavita Hardeep JEWELRY CASTING MODEL MAKER 04/21/2021 Last Documented On 1 12:10PM ; [facility] Type 2 diabetes mellitus Medical New Patient wit h Kavita Hardeep JEWELRY CASTING MODEL MAKER 04/21/2021 Last Documented On 1 12:10PM ; [facility] Work Phone: 1(151) 310-633211-21-2024 Evaluation note Includes: Assessments for all patient encounters Findings Encounter Date [Body mass index [BMI] 28.0- 28.9, adult] assessment of body mass index Open Access - Established with Kavita Hardeep JEWELRY CASTING MODEL MAKER 06/06/2024 Last Documented On 4 11:06AM ; [facility] Venipuncture was performed Open Access - Establi shed with Kavita Hardeep JEWELRY CASTING MODEL MAKER 06/06/2024 Last Documented On 4 11:06AM ; [facility] Assessment of body mass inde x [Body mass index [BMI] 31.0-31.9, adult] Medical Established Patient with Kavita Hardeep JEWELRY CASTING MODEL MAKER 06/02/2021 Last Documented On 1 5:19PM ; [facility] Type 2 diabetes mellitus Medical Established Pat ient with Kavita Hardeep JEWELRY CASTING MODEL MAKER 06/02/2021 Last Documented On 1 5:19PM ; [facility] Assessment of body mass inde x [Body mass index [BMI] 31.0-31.9, adult] Medical Established Patient with Kavita Hardeep JEWELRY CASTING MODEL MAKER 05/18/2021 Last Documented On 1 5:34PM ; [facility] Assessment of body mass inde x [Body mass index [BMI] 29.0-29.9, adult] Medical New Patient with Kavita Hardeep JEWELRY CASTING MODEL MAKER 04/21/2021 Last Documented On 1 12:10PM ; [facility] Type 2 diabetes mellitus Medical New Patient wit h Kavita Hardeep JEWELRY CASTING MODEL MAKER 04/21/2021 Last Documented On 1 12:10PM ; [facility] Work Phone: 1(498) 815-700711-21-2024 Progress note* Progress note Date Encounter Last Documented by 06/06/2024 Open Access - Established Last d ocumented on 06/16/2024; 11:06 AM, Kavita Bryanter TONY; [facility] Active Problems & Conditions - E11.65 - Diabetes Mellitus Type 2 - G47.30 - Periods of Not Breathing While Asleep (Sleep Apnea) Chief Complaint The Chief Complaint is: Needs referral to Physical Therapy. Referred Here Not referred by urgent care clinic and not the emergency room. No prior encounters. - Data to be reviewed: no clinical lab tests History of Present Illness Casandra Gonzalez is a 54 year old female. - Allergy list reviewed - Reviewed Medications Patient presents for concerns of back pain and would like physical therapy Patient believes she is losing muscle mass which is making her weaker Has stopped taking all diabetic medication this past year, was taking 70 units of lantus per day Current Medication - *CPAP SUPPLIES Miscellaneous Use nightly, 30 days, 0 refills Past Medical/Surgical History Reported: Medical: No previous hospitalizations [facility] 04-16-21. Diagnoses: Diabetes mellitus Social History Environmental Exposure: No secondhand cigarette smoke exposure. Behavioral: Not a current tobacco user. Alcohol: Not using alcohol. Drug Use: Not using drugs denied by patient. Sexual: Not sexually active. Sexual orientation Straight (not lesbian or red) and gender identity Female. Allergies - NO KNOWN ENVIRONMENTAL ALLERGIES - NO KNOWN FOOD ALLERGIES - Penicillins Reaction: Hives / Urticaria - Statins Reaction: Hives / Urticaria Family History Paternal: Type 2 diabetes mellitus Maternal: Type 2 diabetes mellitus Review Of Systems Head: Head symptoms. Otolaryngeal: No nose and sinus finding. Cardiovascular: Chest pain or discomfort intermittent and palpitations. Pulmonary: No pulmonary symptoms. Gastrointestinal: No gastrointestinal symptoms. Musculoskeletal: Musculoskeletal symptoms weakness. Neurological: Dizziness. Psychological: No psychological symptoms. Skin: No skin symptoms. Physical Findings - Vitals taken 06/06/2024 03:43 pm BP-Sitting R115/78 mmHg BP Cuff SizeRegular Pulse Rate-Ldsdquf292 bpm Respiration Rate18 per min Temp-Oral98.1 F Kztxwp60 in Y[place]la801 lbs 6.4 oz Body Mass Index28.1 kg/m2 Body Surface Area1.9 m2 Oxygen Sqjrgforan74 % Vital Signs: - Systolic blood pressure < 130 mmHg. - Diastolic Blood Pressure < 80 mmHg. General Appearance: - Awake. - Alert. Lungs: - Normal. - Respiration rhythm and depth was normal. Cardiovascular: Auscultation: - Normal. Heart Rate And Rhythm: - Normal. Heart Sounds: - Normal. Abdomen: Visual Inspection: - Abdomen was normal on visual inspection. Musculoskeletal System: General/bilateral: - Abnormal movement of all extremities. Neurological: - Oriented to time, place, and person. Psychiatric: - Expression of emotions normal. Tests Blood Analysis: Hemoglobin Studies: ValueDate Blood hemoglobin A1c greater than 14 14%06/06/2024 Hemoglobin A1c level > 9.0%. Laboratory-based Chemistry: Other Laboratory Tests: Screening for sexually transmitted infections was not performed. Laboratory Studies: Vascular Procedures: Left Antecubital Space. Assessment - Body mass index [Body mass index [BMI] 28.0-28.9, adult] - Venipuncture was performed [Encounter for preprocedural laboratory examination] Therapy - Patient refused flu vaccine. Discussed benefits of flu vaccine with Patient. Counseling/Education - Patient has declined preventive screening today Informed discussion completed with the patient including costs, risks and possible outcomes. Patient informed the MA that she did not want BH coming in her room, and she did not want to have any other treatment and was was only requesting a referral for physical therapy. Per MA patient stated that she would not set foot back in the building if she recieved anything other than the referral - Patient has declined Behavioral Health Screenings - Patient has declined Behavioral Health Services - Discussed nutritional needs teach healthy choices including fruits and vegetables - Patient education about a proper diet - Referred Patient to a Diabetes Self-Management Program - Not requesting contraception - Discussed concerns about exercise: promote physical activity WILL REFER TO PT AND DISTRICT OR DISTRICT OFFICE DIRECTOR LEVEMIR IS NOT AVAILABLE SO WILL START LANTUS ( LONG ACTING INSULIN) GOAL OF INSULIN IS TO GET TO PREVIOUS DOSE OF 70 UNITS PER DAY START LANTUS AT 20 UNITS TWO TIMES PER DAY, MAKE SURE BLOOD SUGARS ARE STABLE AND YOU ARE TOLERATING IT FOR AT LEAST THREE DAYS BEFORE INCREASING Plan StartCited- Abnormal electrocardiogram [ECG] [EKG] Referrals: Cardiology Instructions: Please make a referral to:Dr. Michael Hsieh EndCited StartCited- Encounter for general adult medical exam w abnormal findings Lab: CBC With Differential/Platelet Lab: [id number] Lab: TSH+Free T4 Lab: Lipid Panel With LDL/HDL Ratio EndCited StartCited- Muscle weakness (generalized) Referrals: Physical Therapy Instructions: Please make a referral to:[facility] Fax [phone] EndCited StartCited- Type 2 diabetes mellitus with hyperglycemia Lab: Hgb A1c with eAG Estimation Lantus SoloStar 100 UNIT/ML mL Inject subcutaneouly 20 units in the morning, and 20 units before bed every day, 30 days, 0 refills EndCited StartCited- Type 2 diabetes mellitus without complications Pen Breezy Point 32G X 5 MM each Use with insulin two times per day, 30 days, 11 refills EndCited Other - Patient tolerated venipuncture well; - Number of attempts for venipuncture two User Defined 1 Not planning a in the next year. [facility]12-07-2022 Miscellaneous Notes* Certification - Cecilio Saucedo MD - 06/22/2022 6:10 PM EST I certify that this patient does not requires inpatient services at this time. Plans for post hospitalization care will be discharge to home. * Nursing Notes - Alison Doherty RN - 06/22/2022 6:06 PM EST Patient wheeled out by ALARM SERVICE TECHNICIAN * Nursing Notes - Alison Doherty RN - 06/22/2022 5:00 PM EST Patient educated on discharge instructions and medications Patient eating dinner prior to leaving * Nursing Notes - Alison Doherty RN - 06/22/2022 4:54 PM EST Notified [place] DOUBLE HEAD 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 of CO2 - 20 K - 3.7 Phos - 2.0 Glucose - 190 OK to discharge per DOUBLE HEAD 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 * Nursing Notes - Alison Doherty RN - 06/22/2022 4:31 PM EST Assessment unchanged unless otherwise charted Call light within reach No denies pain Patient is up in the chair Waiting of 4pm renal panel to result to determine is patient is eligible for discharge * Nursing Notes - Alison Doherty RN - 06/22/2022 1:00 PM EST Assessment unchanged unless otherwise charted Call light within reach No denies pain * Assessment & Plan Note - TEODORO Ruiz - 06/22/2022 10:50 AM ESTAssociated Problem(s): Mixed hyperlipidemia Resume home medications Follow-up with PCP after discharge * Assessment & Plan Note - TEODORO Ruiz - 06/22/2022 10:50 AM ESTAssociated Problem(s): Metabolic acidosis Secondary to DKA Volume expand Trend labs * Assessment & Plan Note - TEODORO Ruiz - 06/22/2022 10:50 AM ESTAssociated Problem(s): Medical non-compliance Importance of medical compliance discussed with patient * Assessment & Plan Note - TEODORO Ruiz - 06/22/2022 10:50 AM ESTAssociated Problem(s): Electrolyte imbalance Replace potassium and phosphorus Trend labs * Assessment & Plan Note - TEODORO Ruiz - 06/22/2022 10:49 AM ESTAssociated Problem(s): DKA (diabetic ketoacidosis) Resolving - Gap closing Volume expand Serial labs * Assessment & Plan Note - TEODORO Ruiz - 06/22/2022 10:49 AM ESTAssociated Problem(s): Diabetes mellitus, type 2 Recent A1c 12.3 Follows with Endocrinology Resume home medications Accuchecks with SSI * Nursing Notes - Abbie Gibson RN - 06/22/2022 3:05 AM EST 2nd attempt to page Dr Saucedo * Nursing Notes - Abbie Gibson RN - 06/22/2022 2:35 AM EST Attempt to page Dr Saucedo for critical labs * Nursing Notes - Abbie Gibson RN - 06/21/2022 8:32 PM EST Critical CO2 <7 reported to Rickey Taveras CNP new order to increase cont NS to 150 mL/hr and give 2L LR bolus. [facility] to pharmacy [facility] Digerati [id number] Note* Certification - Cecilio Saucedo MD - 06/22/2022 6:10 PM EST I certify that this patient does not requires inpatient services at this time. Plans for post hospitalization care will be discharge to home. [employer] Work Phone: 1(442) 321-315812-07-2022 Note* Nursing Notes - Alison Doherty RN - 06/22/2022 6:06 PM EST Patient wheeled out by ALARM SERVICE TECHNICIAN [facility]12-07-2022 Note* Nursing Notes - Alison Doherty RN - 06/22/2022 5:00 PM EST Patient educated on discharge instructions and medications Patient eating dinner prior to leaving [facility]12-07-2022 Note* Nursing Notes - Alison Doherty RN - 06/22/2022 4:54 PM EST Notified [facility] DOUBLE HEAD 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 of CO2 - 20 K - 3.7 Phos - 2.0 Glucose - 190 OK to discharge per DOUBLE HEAD 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 [facility]12-07-2022 Note* Nursing Notes - Alison Doherty RN - 06/22/2022 4:31 PM EST Assessment unchanged unless otherwise charted Call light within reach No denies pain Patient is up in the chair Waiting of 4pm renal panel to result to determine is patient is eligible for discharge [facility]12-07-2022 Note* Nursing Notes - Alison Doherty RN - 06/22/2022 1:00 PM EST Assessment unchanged unless otherwise charted Call light within reach No denies pain [facility]12-07-2022 History of Present illness Narrative* ASH Sanches - 06/22/2022 11:27 AM ESTSummary: Social Service Assessment 06/22/22 0428 Information Source Information Source patient ;review of medical record Information Source Name Casandra Gonzalez Information Source Number [phone] Contact Information This Property Accountant is Primary Four Slide Machine Operator/SW Yes Social Work Contact Name ASH Sanches Make Up Worker's Living Environment Lives With alone Living Arrangements [...] didn't have money to get more? No Cognitive/Perceptual/Developmental Current Mental Status/Cognitive Functioning no deficits noted Recent Changes in Mental Status/Cognitive Functioning no changes Developmental Stage Stage 7 (35-65 years/Middle Adulthood) Generativity vs. Stagnation Cognitive/Perceptual/Developmental Comments pt is alert and oriented x4 [...] finding;high risk screening;physician Chart review completed. Patient Casandra Gonzalez is a 52 year old female who presented to [facility] on June 21 with complaints of dizziness and weakness since Monday. Patient was admitted to [facility] ICU for DKA on an insulin drip. Visit with patient Casandra Gonzalez and daughter at bedside. Patient was laying flat, awake in bed and agreeable to talk with this TIME MOTION ANALYST. Casandra states that she is current with Dr. [...] upon until following off the wagon on , . Recently followed up with Dr. Montalvo and was given options of restarting insulin, Trulicity, and/or a referral to bariatric surgery. She agreed to the Tr ulicity and a referral for bariatric surgery. States after much thought, she is not willing to pursue bariatric surgery but also does not want to do an insulin regimen. She states that she checks hersugars with a Loudieyle Titus but does not think that it [...] better blood sugar control and options. [employer] Auto Body Worker provided glucometer for home going. documented in this [facility]12-07-2022 Hospital course Narrative* Brijesh Taveras, PATIENT TRANSPORT OFFICER-JEWELRY CASTING MODEL MAKER - 06/22/2022 10:54 AM EST Discharge Summary Name: Casandra Gonzalez Age: 52 y.o. Birthday: 1970 Admit [...] daily. Generic drug: Aspirin FreeStyle Titus 2 [place] Systm NISH 1 Each by Unknown route [...] tolerated Discharge Diet: Diabetic Discharge Follow-up: Kavita Qureshi CNP [address] [facility] [id number] Call Post-Hospital Follow Up Manish Shea MD [address] [place] [phone] Call Post-Hospital Follow Up Discharge Disposition: Patient will be discharged in stable condition. Discharge Time: Including assessment, planning, and medication reconciliation was 13 min of JEWELRY CASTING MODEL MAKER time. Brijesh Tavreas CNP completing Discharge Summary for Dr. Saucedo Please note Portions of this note utilized [employer] dictation software, please excuse any typographical or grammatical errors Associated attestation - Cecilio Saucedo MD - 06/22/2022 8:47 PM EST I have independently interviewed and examined the patient. I have discussed nj elements of the care plan with the DOUBLE HEAD 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 and I agree with the findings and care plan as stated above. documented in this [facility]12-07-2022 History and physical note* Brijesh Taveras APRN-TONY - 06/22/2022 10:50 AM EST History and Physical Examination 06/21/2022 2:16 PM [...] or blurred visions. She denies any nausea orvomiting. She denies any chest pain or shortness [...] mouth daily. Past Week Continuous Blood Gluc Excavator Operator (FreeStyle Titus 2 [place] Systm) Device 1 Each by Unknown route every 4 hours. 1 Each 0 Past Week Continuous Blood Gluc Sensor (FreeStyle Titus 2 Sensor Systm) Misc 1 Each by Unknown route every 14days. 2 Each 11 Past Week Dulaglutide (Trulicity) [...] Use Authorization (EUA) for the qualitative detection [id number] nucleic acid. COLOR, URINE 06/21/2022 YELLOW APPEARANCE, URINE 06/21/2022 CLEAR Specific [place], Urine 06/21/2022 >1.030 (H) PH URINE 06/21/2022 [...] GLUCOSE, POINT OF CARE 06/21/2022 400 (H) Strawhat Sizer 06/21/2022 205,067 MAGNESIUM 06/22/2022 2.0 GLUCOSE 06/22/2022 [...] GLUCOSE, POINT OF CARE 06/21/2022 393 (H) Strawhat Sizer 06/21/2022 206,278 GLUCOSE, POINT OF CARE 06/21/2022 280 (H) Strawhat Sizer 06/21/2022 204,702 GLUCOSE, POINT OF CARE 06/21/2022 210 (H) Strawhat Sizer 06/21/2022 204,702 GLUCOSE, POINT OF CARE 06/21/2022 175 (H) Strawhat Sizer 06/21/2022 204,702 GLUCOSE, POINT OF CARE 06/21/2022 192 (H) Strawhat Sizer 06/21/2022 204,702 GLUCOSE, POINT OF CARE 06/22/2022 221 (H) Strawhat Sizer 06/22/2022 204,702 GLUCOSE, POINT OF CARE 06/22/2022 212 (H) Strawhat Sizer 06/22/2022 204,702 GLUCOSE, POINT OF CARE 06/22/2022 214 (H) Strawhat Sizer 06/22/2022 206,907 MAGNESIUM 06/22/2022 1.9 GLUCOSE 06/22/2022 [...] GLUCOSE, POINT OF CARE 06/22/2022 245 (H) Strawhat Sizer 06/22/2022 204,702 GLUCOSE, POINT OF CARE 06/22/2022 242 (H) Strawhat Sizer 06/22/2022 207,486 GLUCOSE, POINT OF CARE 06/22/2022 252 (H) Strawhat Sizer 06/22/2022 204,702 GLUCOSE, POINT OF CARE 06/22/2022 234 (H) Strawhat Sizer 06/22/2022 207,019 GLUCOSE, POINT OF CARE 06/22/2022 230 (H) Strawhat Sizer 06/22/2022 207,019 WBC (WHITE BLOOD COUNT) 06/22/2022 [...] GLUCOSE, POINT OF CARE 06/22/2022 213 (H) Strawhat Sizer 06/22/2022 207,019 GLUCOSE, POINT OF CARE 06/22/2022 214 (H) Strawhat Sizer 06/22/2022 207,019 GLUCOSE, POINT OF CARE 06/22/2022 340 (H) Strawhat Sizer 06/22/2022 207,019 Impression and Plan: Principal Problem: [...] for Dr. Saucedo 21 minutes spent of JEWELRY CASTING MODEL MAKER time including assessment, planning, and discussion with nursing staff and patient Please note Portions of this note utilized [employer] dictation software, please excuse any typographical or grammatical errors Associated attestation - Cecilio Saucedo MD - 06/22/2022 8:49 PM EST I have independently interviewed and examined the patient. I have discussed nj elements of the care plan with the DOUBLE HEAD 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 and I agree with the findings and [...] follow w pmd as outpt See orders [facility]12-07-2022 Evaluation + Plan note* Assessment & Plan Note - TEODORO Ruiz - 06/22/2022 10:50 AM ESTAssociated Problem(s): Mixed hyperlipidemia Resume home medications Follow-up with PCP after discharge [facility]12-07-2022 Evaluation + Plan note* Assessment & Plan Note - TEODORO Ruiz - 06/22/2022 10:50 AM ESTAssociated Problem(s): Metabolic acidosis Secondary to DKA Volume expand Trend labs [facility]12-07-2022 Evaluation + Plan note* Assessment & Plan Note - TEODORO Ruiz - 06/22/2022 10:50 AM ESTAssociated Problem(s): Medical non-compliance Importance of medical compliance discussed with patient [facility]12-07-2022 Evaluation + Plan note* Assessment & Plan Note - TEODORO Ruiz - 06/22/2022 10:50 AM ESTAssociated Problem(s): Electrolyte imbalance Replace potassium and phosphorus [facility]rend [facility]12-07-2022 History and physical note* Brijesh Taveras, PATIENT TRANSPORT OFFICER-JEWELRY CASTING MODEL MAKER - 06/22/2022 10:50 AM EST History and Physical Examination 06/21/2022 2:16 PM [...] or blurred visions. She denies any nausea orvomiting. She denies any chest pain or shortness [...] mouth daily. Past Week Continuous Blood Gluc Excavator Operator (FreeStyle Titus 2 [place] Systm) Device 1 Each by Unknown route every 4 hours. 1 Each 0 Past Week Continuous Blood Gluc Sensor (FreeStyle Titus 2 Sensor Systm) Misc 1 Each by Unknown route every 14days. 2 Each 11 Past Week Dulaglutide (Trulicity) [...] Use Authorization (EUA) for the qualitative detection [id number] nucleic acid. COLOR, URINE 06/21/2022 YELLOW APPEARANCE, URINE 06/21/2022 CLEAR Specific [place], Urine 06/21/2022 >1.030 (H) PH URINE 06/21/2022 [...] GLUCOSE, POINT OF CARE 06/21/2022 400 (H) Strawhat Sizer 06/21/2022 205,067 MAGNESIUM 06/22/2022 2.0 GLUCOSE 06/22/2022 [...] GLUCOSE, POINT OF CARE 06/21/2022 393 (H) Strawhat Sizer 06/21/2022 206,278 GLUCOSE, POINT OF CARE 06/21/2022 280 (H) Strawhat Sizer 06/21/2022 204,702 GLUCOSE, POINT OF CARE 06/21/2022 210 (H) Strawhat Sizer 06/21/2022 204,702 GLUCOSE, POINT OF CARE 06/21/2022 175 (H) Strawhat Sizer 06/21/2022 204,702 GLUCOSE, POINT OF CARE 06/21/2022 192 (H) Strawhat Sizer 06/21/2022 204,702 GLUCOSE, POINT OF CARE 06/22/2022 221 (H) Strawhat Sizer 06/22/2022 204,702 GLUCOSE, POINT OF CARE 06/22/2022 212 (H) Strawhat Sizer 06/22/2022 204,702 GLUCOSE, POINT OF CARE 06/22/2022 214 (H) Strawhat Sizer 06/22/2022 206,907 MAGNESIUM 06/22/2022 1.9 GLUCOSE 06/22/2022 [...] GLUCOSE, POINT OF CARE 06/22/2022 245 (H) Strawhat Sizer 06/22/2022 204,702 GLUCOSE, POINT OF CARE 06/22/2022 242 (H) Strawhat Sizer 06/22/2022 207,486 GLUCOSE, POINT OF CARE 06/22/2022 252 (H) Strawhat Sizer 06/22/2022 204,702 GLUCOSE, POINT OF CARE 06/22/2022 234 (H) Strawhat Sizer 06/22/2022 207,019 GLUCOSE, POINT OF CARE 06/22/2022 230 (H) Strawhat Sizer 06/22/2022 207,019 WBC (WHITE BLOOD COUNT) 06/22/2022 [...] GLUCOSE, POINT OF CARE 06/22/2022 213 (H) Strawhat Sizer 06/22/2022 207,019 GLUCOSE, POINT OF CARE 06/22/2022 214 (H) Strawhat Sizer 06/22/2022 207,019 GLUCOSE, POINT OF CARE 06/22/2022 340 (H) Strawhat Sizer 06/22/2022 207,019 Impression and Plan: Principal Problem: [...] for Dr. Saucedo 21 minutes spent of JEWELRY CASTING MODEL MAKER time including assessment, planning, and discussion with nursing staff and patient Please note Portions of this note utilized [employer] (Inspect Manager)ation software, please excuse any typographical or grammatical errors Associated attestation - Cecilio Saucedo MD - 06/22/2022 8:49 PM EST I have independently interviewed and examined the patient. I have discussed nj elements of the care plan with the DOUBLE HEAD 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 and I agree with the findings and [...] as outpt See orders [facility] + Plan note * Assessment & Plan Note - TEODORO Ruiz - 06/22/2022 10:49 AM ESTAssociated Problem(s): DKA (diabetic ketoacidosis) Resolving - Gap closing Volume expand Serial labs [facility]12-07-2022 Evaluation + Plan note* Assessment & Plan Note - TEODORO Ruiz - 06/22/2022 10:49 AM ESTAssociated Problem(s): Diabetes mellitus, type 2 Recent A1c 12.3 Follows with Endocrinology Resume home medications Accuchecks with [facility]12-07-2022 Note* Nursing Notes - Abbie Gibson RN - 06/22/2022 3:05 AM EST 2nd attempt to page Dr Saucedo [facility]12-07-2022 Note* Nursing Notes - Abbie Gibson RN - 06/22/2022 2:35 AM EST Attempt to page Dr Saucedo for critical labs [facility]12-06-2022 Note* Nursing Notes - Abbie Gibson RN - 06/21/2022 8:32 PM EST Critical CO2 <7 reported to Rickey Taveras CNP new order to increase cont NS to 150 mL/hr and give 2L LR bolus. Faxed to pharmacy [facility]12-06-2022 Emergency department Note* Mason Dooley RN - 06/21/2022 3:36 PM EST Patient refuses covid test stating she took a home test last night that was negative. Patient refuses and all imaging, stating I don't want to be radiated. [facility]12-06-2022 Emergency department Note* Mason Dooley RN - 06/21/2022 3:36 PM EST Patient refuses covid test stating she took a home test last night that was negative. Patient refuses and all imaging, stating I don't want to be radiated. * Irvin Magana MD - 06/21/2022 3:29 PM EST EMERGENCY DEPARTMENT REPORT [facility] ICU SERVICE DATE: 06/22/22 PCP: Kavita Qureshi CHIEF COMPLAINT: Dizziness Chief Complaint Patient presents with Dizziness Fatigue Patient to the ED for c/o dizziness and weakness since Monday. States she hasn't been eating and she is a diabetic. BS was 376. HPI: Casandra Gonzalez is a 52 y.o. female who [...] mg by mouth daily. Continuous Blood Gluc Excavator Operator (FreeStyle Titus 2 [place] Systm) Device 1 Each by Unknown route every 4 hours. Qty: 1 Each, Refills: 0 Associated Diagnoses: Uncontrolled type 2 diabetes mellitus with hyperglycemia Continuous Blood Gluc Sensor (FreeStyle Titus 2 Sensor Systm) Misc 1 Each by Unknown route every 14days. Qty: 2 Each, Refills: 11 Associated Diagnoses: [...] C) Temporal -- -- -- -- -- 06/22/2230 96/68 -- -- 110 (!) 29 -- [...] Use Authorization (EUA) for the qualitative detection [id number] nucleic acid. SCREEN: MRSA ONLY, NARES (ISOLATION [...] CARE 400 (H) 70 - 100 MG/DL Strawhat Sizer 205,067 GLUCOSE (POC DEVICE) Result Value Ref Range GLUCOSE, POINT OF CARE 393 (H) 70 - 100 MG/DL Strawhat Sizer 206,278 GLUCOSE (POC DEVICE) Result Value Ref Range GLUCOSE, POINT OF CARE 280 (H) 70 - 100 MG/DL Strawhat Sizer 204,702 GLUCOSE (POC DEVICE) Result Value Ref Range GLUCOSE, POINT OF CARE 210 (H) 70 - 100 MG/DL Strawhat Sizer 204,702 GLUCOSE (POC DEVICE) Result Value Ref Range GLUCOSE, POINT OF CARE 175 (H) 70 - 100 MG/DL Strawhat Sizer 204,702 GLUCOSE (POC DEVICE) Result Value Ref Range GLUCOSE, POINT OF CARE 192 (H) 70 - 100 MG/DL Strawhat Sizer 204,702 GLUCOSE (POC DEVICE) Result Value Ref Range GLUCOSE, POINT OF CARE 221 (H) 70 - 100 MG/DL Strawhat Sizer 204,702 GLUCOSE (POC DEVICE) Result Value Ref Range GLUCOSE, POINT OF CARE 212 (H) 70 - 100 MG/DL Strawhat Sizer 204,702 GLUCOSE (POC DEVICE) Result Value Ref Range GLUCOSE, POINT OF CARE 214 (H) 70 - 100 MG/DL Strawhat Sizer 206,907 GLUCOSE (POC DEVICE) Result Value Ref Range GLUCOSE, POINT OF CARE 245 (H) 70 - 100 MG/DL Strawhat Sizer 204,702 GLUCOSE (POC DEVICE) Result Value Ref Range GLUCOSE, POINT OF CARE 242 (H) 70 - 100 MG/DL Strawhat Sizer 207,486 GLUCOSE (POC DEVICE) Result Value Ref Range GLUCOSE, POINT OF CARE 252 (H) 70 - 100 MG/DL Strawhat Sizer 204,702 GLUCOSE (POC DEVICE) Result Value Ref Range GLUCOSE, POINT OF CARE 234 (H) 70 - 100 MG/DL Strawhat Sizer 207,019 GLUCOSE (POC DEVICE) Result Value Ref Range GLUCOSE, POINT OF CARE 230 (H) 70 - 100 MG/DL Strawhat Sizer 207,019 GLUCOSE (POC DEVICE) Result Value Ref Range GLUCOSE, POINT OF CARE 213 (H) 70 - 100 MG/DL Strawhat Sizer 207,019 GLUCOSE (POC DEVICE) Result Value Ref Range GLUCOSE, POINT OF CARE 214 (H) 70 - 100 MG/DL Strawhat Sizer 207,019 GLUCOSE (POC DEVICE) Result Value Ref Range GLUCOSE, POINT OF CARE 340 (H) 70 - 100 MG/DL Strawhat Sizer 207,019 URINALYSIS, MACRO Result Value Ref Range COLOR, URINE YELLOW YELLOW APPEARANCE, URINE CLEAR CLEAR Specific [place], Urine >1.030 (H) 1.010 - 1.025 PH [...] Portions of this chart were created using [employer] electronic dictation. Please excuse any typographical or grammatical errors contained herein. Irvin Magana MD 06/22/22 1055 documented in this [facility]12-06-2022 Physician Emergency department Note* Irvin Magana MD - 06/21/2022 3:29 PM EST EMERGENCY DEPARTMENT [place] [facility] [place] DATE: 06/22/22 PCP: Kavita Qureshi CHIEF COMPLAINT: Dizziness Chief Complaint Patient presents with Dizziness Fatigue Patient to the ED for c/o dizziness and weakness since Monday. States she hasn't been eating and she is a diabetic. BS was 376. HPI: Casandra Gonzalez is a 52 y.o. female who [...] mg by mouth daily. Continuous Blood Gluc Excavator Operator (FreeStyle Titus 2 [place] Systm) Device 1 Each by Unknown route every 4 hours. Qty: 1 Each, Refills: 0 Associated Diagnoses: Uncontrolled type 2 diabetes mellitus with hyperglycemia Continuous Blood Gluc Sensor (FreeStyle Titus 2 Sensor Systm) Misc 1 Each by Unknown route every 14days. Qty: 2 Each, Refills: 11 Associated Diagnoses: [...] Use Authorization (EUA) for the qualitative detection [id number] nucleic acid. SCREEN: MRSA ONLY, NARES (ISOLATION [...] CARE 400 (H) 70 - 100 MG/DL Strawhat Sizer 205,067 GLUCOSE (POC DEVICE) Result Value Ref Range GLUCOSE, POINT OF CARE 393 (H) 70 - 100 MG/DL Strawhat Sizer 206,278 GLUCOSE (POC DEVICE) Result Value Ref Range GLUCOSE, POINT OF CARE 280 (H) 70 - 100 MG/DL Strawhat Sizer 204,702 GLUCOSE (POC DEVICE) Result Value Ref Range GLUCOSE, POINT OF CARE 210 (H) 70 - 100 MG/DL Strawhat Sizer 204,702 GLUCOSE (POC DEVICE) Result Value Ref Range GLUCOSE, POINT OF CARE 175 (H) 70 - 100 MG/DL Strawhat Sizer 204,702 GLUCOSE (POC DEVICE) Result Value Ref Range GLUCOSE, POINT OF CARE 192 (H) 70 - 100 MG/DL Strawhat Sizer 204,702 GLUCOSE (POC DEVICE) Result Value Ref Range GLUCOSE, POINT OF CARE 221 (H) 70 - 100 MG/DL Strawhat Sizer 204,702 GLUCOSE (POC DEVICE) Result Value Ref Range GLUCOSE, POINT OF CARE 212 (H) 70 - 100 MG/DL Strawhat Sizer 204,702 GLUCOSE (POC DEVICE) Result Value Ref Range GLUCOSE, POINT OF CARE 214 (H) 70 - 100 MG/DL Strawhat Sizer 206,907 GLUCOSE (POC DEVICE) Result Value Ref Range GLUCOSE, POINT OF CARE 245 (H) 70 - 100 MG/DL Strawhat Sizer 204,702 GLUCOSE (POC DEVICE) Result Value Ref Range GLUCOSE, POINT OF CARE 242 (H) 70 - 100 MG/DL Strawhat Sizer 207,486 GLUCOSE (POC DEVICE) Result Value Ref Range GLUCOSE, POINT OF CARE 252 (H) 70 - 100 MG/DL Strawhat Sizer 204,702 GLUCOSE (POC DEVICE) Result Value Ref Range GLUCOSE, POINT OF CARE 234 (H) 70 - 100 MG/DL Strawhat Sizer 207,019 GLUCOSE (POC DEVICE) Result Value Ref Range GLUCOSE, POINT OF CARE 230 (H) 70 - 100 MG/DL Strawhat Sizer 207,019 GLUCOSE (POC DEVICE) Result Value Ref Range GLUCOSE, POINT OF CARE 213 (H) 70 - 100 MG/DL Strawhat Sizer 207,019 GLUCOSE (POC DEVICE) Result Value Ref Range GLUCOSE, POINT OF CARE 214 (H) 70 - 100 MG/DL Strawhat Sizer 207,019 GLUCOSE (POC DEVICE) Result Value Ref Range GLUCOSE, POINT OF CARE 340 (H) 70 - 100 MG/DL Strawhat Sizer 207,019 URINALYSIS, MACRO Result Value Ref Range COLOR, URINE YELLOW YELLOW APPEARANCE, URINE CLEAR CLEAR Specific [place], Urine >1.030 (H) 1.010 - 1.025 PH [...] Portions of this chart were created using [employer] electronic dictation. Please excuse any typographical or grammatical errors contained herein. Irvin Magana MD 06/22/22 [facility] Work Phone: 1(486) 939-280609-22-2022 History of Present illness Narrative* Bart Stone - 04/07/2022 2:15 PM EDT Nurse Note: Review of Systems Constitutional: Positive [...] for sleep disturbance. Nursing Assessment: Physical Exam * Manish Shea MD - 04/07/2022 2:15 PM EDT History of Present Illness Type 2 diabetes: This is a followup visit to the office. She was diagnosed with diabetes at age 30.No family history of diabetes in first-degree relatives [...] = 2 with fasting blood sugar of 386mg/dL and normal renal function. Last visit with ophthalmology was summer, bilateral diabetic retinopathy, mild. Complains of some neuropathy to 3 toes on the left foot but does not follow with podiatry. Last met with a rug repairer a few years ago. She reports she [...] taking lisinopril 2.5 mg daily. concerns for [place] syndrome: Dexamethasone suppression test negative, although midnight [...] weight gain will cause severe depression with far- reaching consequences for her. As such, weare attempting to use other relations although there chances of success are limited. Previously didnot tolerate higher dose of Trulicity, but she [...] not willing to retrial. documented in this [facility]09-22-2022 Procedure note* Manish Shea MD - 04/07/2022 2:15 PM EDTAssociated Order(s): [place] CONTINUOUS GLUCOSE MONITORING ANALYSIS I&R CGM download shows 0% of blood sugars at target range, 2% high, 98% very high, GMI = 12.1%. Hyperglycemia at all timeframes. Lowest blood sugars approximately 200 mg/dL. This CGM download, we discussed insulin therapy versus bariatric surgery. [facility] Procedure note* Manish Shea MD - 04/07/2022 2:15 PM EDTAssociated Order(s): [place] CONTINUOUS GLUCOSE MONITORING ANALYSIS I&R CGM download shows 0% of blood sugars at target range, 2% high, 98% very high, GMI = 12.1%. Hyperglycemia at all timeframes. Lowest blood sugars approximately 200 mg/dL. This CGM download, we discussed insulin therapy versus bariatric surgery. documented in this [facility]07-21-2022 History of Present illness Narrative* Kendall Steiner LPN - 02/03/2022 3:45 PM EDT Nurse Note: Review of Systems Constitutional: Negative [...] The patient is not nervous/anxious. Last saw clinical genetics laboratory chief in [place] unsure of when Nursing Assessment: Physical Exam Present in office today for 6 week follow up DM . No concerns at this time. * Manish Shea MD - 02/03/2022 3:45 PM EDT History of Present Illness Type 2 diabetes: This is a followup visit to the office. She was diagnosed with diabetes at age 30.No family history of diabetes in first-degree relatives [...] follow with podiatry. Last met with a rug repairer a few years ago. She reports she [...] and other medications, she went from 98% ofher blood sugars being very high to 94% of her blood sugars. GMI = 11.3 concerns for [place] syndrome: Dexamethasone suppression test negative, although midnight [...] The patient is not nervous/anxious. Last saw clinical genetics laboratory chief in [place] unsure of when Nursing Assessment: Physical Exam [...] weight gain will cause severe depression with far- reaching consequences for her. As such, weare attempting to use other relations although there chances of success are limited. We will increase Trulicity to 1.5 mg weekly. Increase glipizide to 10 mg twice a day. Continue was on 30 mg daily and metformin thousand grams twice a day. Continue Jardiance 10 mg daily. Follow-up in 2 months withrepeat blood work. Reinforced low-carb/higher protein diet. Hyperlipidemia: We discussed her previously significantly elevated LDL. Would recommend statin therapy though she is unable to tolerate. At this time not willing to retrial. We discussed options suchas PCSK9 inhibitors with Amadeo. She would like to research these options. [facility] Procedure note* Manish Shea MD - 02/03/2022 3:45 PM EDTAssociated Order(s): [place] CONTINUOUS GLUCOSE MONITORING ANALYSIS I&R CGM download her showing 0% of blood sugars at target range, 6% high, 94% very high, GMI = 11.3%, no hypoglycemia. There is hyperglycemia at all timeframes. Small response to medications last visit, we will increased doses of GLP-1 and sulfonylurea. Insulin therapy recommended, but declined by patient. [facility] Procedure note* Manish Shea MD - 02/03/2022 3:45 PM EDTAssociated Order(s): [place] CONTINUOUS GLUCOSE MONITORING ANALYSIS I&R CGM download her showing 0% of blood sugars at target range, 6% high, 94% very high, GMI = 11.3%, no hypoglycemia. There is hyperglycemia at all timeframes. Small response to medications last visit, we will increased doses of GLP-1 and sulfonylurea. Insulin therapy recommended, but declined by patient. [facility] History and physical note* Manish Shea MD - 12/09/2021 2:30 PM EDT [facility] History and physical note* Manish Shea MD - 12/09/2021 2:30 PM EDT trulic [facility] History of Present illness Narrative* Bart Stone - 12/09/2021 2:30 PM EDT Nurse Note: Review of Systems Constitutional: Positive [...] Positive for sleep disturbance (occasionally). Last saw clinical genetics laboratory chief in [place] unsure of when Nursing Assessment: Physical Exam * Manish Shea MD - 12/09/2021 2:30 PM EDT History of Present Illness Diabetes Type 2 diabetes: This is a followup visit to the office. She was diagnosed with diabetes at age 30.No family history of diabetes in first-degree relatives [...] blood sugar of 386 mg/dL and normal renalfunction. Last visit with ophthalmology was sometime in 2020, she notes that the eye doctor is watching a couple of spots in the eyes. Complains of some neuropathy to 3 toes on the left foot but does not follow with podiatry. Last met with a rug repairer a few years ago. She reports she [...] hyperglycemia throughout all time frames. concerns for [place] syndrome: Dexamethasone suppression test [...] Positive for sleep disturbance (occasionally). Last saw clinical genetics laboratory chief in [place] unsure of when Nursing Assessment: Physical Exam [...] weight gain will cause severe depression with far- reaching consequences for her. We discussed the therapy options, including using GLP-1 with SGLT2 along with TZD Sulfonylurea, and metformin. It appears Trulicity and Jardiance her on her plan. We discussed side effect and mechanism of actionof Trulicity, including incidence of nausea and risk [...] not willing to retrial. We discussed options suchas PCSK9 inhibitors with Zetia. She would like to research these options. documented in this [facility]05-[facility] Miscellaneous Notes* Addendum Note - Karli Farmer - 12/09/2021 2:30 PM EDTAddended by: KARLI FARMER on: 12/09/2021 03:49 PM Modules accepted: Orders documented in this [facility]05-26-2022 Note* Addendum Note - Karli Farmer - 12/09/2021 2:30 PM EDTAddended by: KARLI FARMER on: 12/09/2021 03:49 PM Modules accepted: Orders [facility] Procedure note* Manish Shea MD - 12/09/2021 2:30 PM EDTAssociated Order(s): [place] CONTINUOUS GLUCOSE MONITORING ANALYSIS I&R CGM download shows 0% of blood sugars at target, 1% high, 99% very high. Based on CGM download, we need to intensify pharmacologic therapy. She is already on a low-carb diet. [facility] Procedure note* Manish Shea MD - 12/09/2021 2:30 PM EDTAssociated Order(s): [place] CONTINUOUS GLUCOSE MONITORING ANALYSIS I&R CGM download shows 0% of blood sugars at target, 1% high, 99% very high. Based on CGM download, we need to intensify pharmacologic therapy. She is already on a low-carb diet. [facility] History of Present illness Narrative* Landy Miranda MA - 10/28/2021 1:30 PM EDT Nurse Note: Review of Systems Constitutional: Positive [...] for sleep disturbance. Patient has seen a clinical genetics laboratory chief in [place] 10 years ago Nursing Assessment: Physical Exam * Safia Castillo CNP - 10/28/2021 1:30 PM EDT History of Present Illness Diabetes Type 2 diabetes: This is her fourth visit to the office. She was diagnosed with diabetes at age 30.No family history of diabetes in first-degree relatives [...] blood sugar of 386 mg/dL and normal renalfunction. Last visit with ophthalmology was sometime in 2020, she notes that the eye doctor is watching a couple of spots in the eyes. Complains of some neuropathy to 3 toes on the left foot but does not follow with podiatry. Last met with a rug repairer a few years ago. She reports she [...] at 0.160 which is slightly above the cutoff for normal although the result mentioned the [...] for sleep disturbance. Patient has seen a clinical genetics laboratory chief in [place] 10 years ago Nursing Assessment: Physical Exam [...] diabetes, insulin resistance we will screen for [place] syndrome with dexamethasone suppression test as her late-night salivary cortisol test came back mildly elevated though was contaminated with blood. Ramón see her back in 4-6 weeks with lab work and CGM download. We did discuss treatment of hypoglycemia using the 15/15 rule as well. Hyperlipidemia: We discussed her previously significantly elevated LDL. Would recommend statin therapy though she is unable to tolerate. At this time not willing to retrial. We discussed options suchas PCSK9 inhibitors with Amadeo. She would like to research these options. [facility] Evaluation note Includes: Assessments for all patient encounters Findings Encounter Date Assessment of body mass inde x [Body mass index [BMI] 31.0-31.9, adult] Medical Established Patient with Kavita Qureshi CNP 06/02/2021 Type 2 diabetes mellitus Medical Establi shed Patient with Kavita Qureshi CNP 06/02/2021 Assessment of body mass inde x [Body mass index [BMI] 31.0-31.9, adult] Medical Established Patient with Kavita Qureshi CNP 05/18/2021 Assessment of body mass inde x [Body mass index [BMI] 29.0-29.9, adult] Medical New Patient with Kavita Qureshi CNP 04/21/2021 Type 2 diabetes mellitus Medical New Pat ient with Kavita Qureshi CNP 04/21/2021 [facility] Work Phone: 1(940) 850-525011-02-2021 Instructions Includes: Instructions for all patient encounters Instructions to patient Maintain a healthy diet Last Documented On 1 4:43PM ; [facility] Maintain a healthy diet Last Documented On 1 10:54AM ; [facility] Education and Decision Aids were provided during visit for: Discussed nutritional needs teach healthy choices including fruits and vegetables Last Documented On 4 3:46PM ; [facility] Patient education about a pr oper diet Last Documented On 4 3:46PM ; [facility] Discussed concerns about exe rcise : promote physical activity ~ ~WILL REFER TO PT AND DISTRICT OR DISTRICT OFFICE DIRECTOR ~ ~LEVEMIR IS NOT AVAILABLE SO WILL START LANTUS ( LONG ACTING INSULIN) ~ ~GOAL OF INSULIN IS TO GET TO PREVIOUS DOSE OF 70 UNITS PER DAY ~ ~START LANTUS AT 20 UNITS TWO TIMES PER DAY, MAKE SURE BLOOD SUGARS ARE STABLE AND YOU ARE TOLERATING IT FOR AT LEAST THREE DAYS BEFORE INCREASING ~ ~ ~ ~ Last Documented On 4 4:51PM ; [facility] Referred Patient to a Diabet es Self-Management Program Last Documented On 4 4:21PM ; [facility] Not requesting contraception Last Documented On 4 3:46PM ; [facility] Discussed nutritional needs teach healthy choices including fruits and vegetables Last Documented On 1 11:33AM ; [facility] Patient education about a pr oper diet Last Documented On 1 11:33AM ; [facility] Discussed concerns about exe rcise : promote physical activity ~ ~Follow up in one month Last Documented On 1 3:30PM ; [facility] Discussed nutritional needs teach healthy choices including fruits and vegetables Last Documented On 1 4:34PM ; [facility] Patient education about a pr oper diet Last Documented On 4:34PM ; [facility] Patient education about a ho me blood glucose monitor with instructions to bring monitor to each visit Last Documented On 4:43PM ; [facility] Dietary counseling pertainin g to diabetes mellitus Last Documented On 1 4:43PM ; [facility] Patient education about diab etic foot care Last Documented On 1 4:43PM ; [facility] Inquiry and counseling about medication administration and compliance Last Documented On 4:43PM ; [facility] Discussed concerns about exe rcise : promote physical activity Last Documented On 4:34PM ; [facility] Patient goals discussed Last Documented On 4:43PM ; [facility] The patient's goal is to tonny t the blood sugars and bring in the results to each visit Last Documented On 4:43PM ; [facility] NOTE: pt reported any inform ation [facility] needed was available on the internet; she could access it. She did not intend to put any information in her medical record that was not necessary or otherwise avaiable. ~ ~Also, if she were depressed or anxious, she would tell someone. SHe is not. She did, however, answer questions that allowed [facility] to complete the PHQ9 Last Documented On 1 8:58PM ; [facility] Discussed nutritional needs teach healthy choices including fruits and vegetables Last Documented On 10:41AM ; [facility] Patient education about a pr oper diet Last Documented On 10:41AM ; [facility] Patient education about regu lar dental care Last Documented On 10:54AM ; [facility] Patient education about a ho me blood glucose monitor with instructions to bring monitor to each visit Last Documented On 10:54AM ; [facility] Dietary counseling pertainin g to diabetes mellitus Last Documented On 10:54AM ; [facility] Patient education about diab etic foot care Last Documented On 10:54AM ; [facility] Inquiry and counseling about medication administration and compliance Last Documented On 10:54AM ; [facility] Discussed concerns about exe rcise : promote physical activity Last Documented On 10:41AM ; [facility] Patient goals discussed Last Documented On 10:54AM ; [facility] The patient's goal is to tonny t the blood sugars and bring in the results to each visit Last Documented On 10:54AM ; [facility] Work Phone: 1(150) 820-527611-02-2021 Instructions Includes: Instructions for all patient encounters Instructions to patient Maintain a healthy diet Last Documented On 4:43PM ; [facility] Maintain a healthy diet Last Documented On 10:54AM ; [facility] Education and Decision Aids were provided during visit for: Discussed nutritional needs teach healthy choices including fruits and vegetables Last Documented On 4 3:46PM ; [facility] Patient education about a pr oper diet Last Documented On 4 3:46PM ; [facility] Discussed concerns about exe rcise : promote physical activity ~ ~WILL REFER TO PT AND DISTRICT OR DISTRICT OFFICE DIRECTOR ~ ~LEVEMIR IS NOT AVAILABLE SO WILL START LANTUS ( LONG ACTING INSULIN) ~ ~GOAL OF INSULIN IS TO GET TO PREVIOUS DOSE OF 70 UNITS PER DAY ~ ~START LANTUS AT 20 UNITS TWO TIMES PER DAY, MAKE SURE BLOOD SUGARS ARE STABLE AND YOU ARE TOLERATING IT FOR AT LEAST THREE DAYS BEFORE INCREASING ~ ~ ~ ~ Last Documented On 4 4:51PM ; [facility] Referred Patient to a Diabet es Self-Management Program Last Documented On 4 4:21PM ; [facility] Not requesting contraception Last Documented On 4 3:46PM ; [facility] Discussed nutritional needs teach healthy choices including fruits and vegetables Last Documented On 1 11:33AM ; [facility] Patient education about a pr oper diet Last Documented On 11:33AM ; [facility] Discussed concerns about exe rcise : promote physical activity ~ ~Follow up in one month Last Documented On 1 3:30PM ; [facility] Discussed nutritional needs teach healthy choices including fruits and vegetables Last Documented On 1 4:34PM ; [facility] Patient education about a pr oper diet Last Documented On 1 4:34PM ; [facility] Patient education about a ho me blood glucose monitor with instructions to bring monitor to each visit Last Documented On 1 4:43PM ; [facility] Dietary counseling pertainin g to diabetes mellitus Last Documented On 1 4:43PM ; [facility] Patient education about diab etic foot care Last Documented On 1 4:43PM ; [facility] Inquiry and counseling about medication administration and compliance Last Documented On 1 4:43PM ; [facility] Discussed concerns about exe rcise : promote physical activity Last Documented On 1 4:34PM ; [facility] Patient goals discussed Last Documented On 4:43PM ; [facility] The patient's goal is to tonny t the blood sugars and bring in the results to each visit Last Documented On 4:43PM ; [facility] NOTE: pt reported any inform ation [facility] needed was available on the internet; she could access it. She did not intend to put any information in her medical record that was not necessary or otherwise avaiable. ~ ~Also, if she were depressed or anxious, she would tell someone. SHe is not. She did, however, answer questions that allowed [facility] to complete the PHQ9 Last Documented On 8:58PM ; [facility] Discussed nutritional needs teach healthy choices including fruits and vegetables Last Documented On 10:41AM ; [facility] Patient education about a pr oper diet Last Documented On 10:41AM ; [facility] Patient education about regu lar dental care Last Documented On 10:54AM ; [facility] Patient education about a ho me blood glucose monitor with instructions to bring monitor to each visit Last Documented On 10:54AM ; [facility] Dietary counseling pertainin g to diabetes mellitus Last Documented On 10:54AM ; [facility] Patient education about diab etic foot care Last Documented On 10:54AM ; [facility] Inquiry and counseling about medication administration and compliance Last Documented On 10:54AM ; [facility] Discussed concerns about exe rcise : promote physical activity Last Documented On 10:41AM ; [facility] Patient goals discussed Last Documented On 10:54AM ; [facility] The patient's goal is to tonny t the blood sugars and bring in the results to each visit Last Documented On 10:54AM ; [facility] Work Phone: [phone]) 703-118211-02-2021 Instructions Includes: Instructions for all patient encounters Instructions to patient Maintain a healthy diet Last Documented On 4:43PM ; [facility] Maintain a healthy diet Last Documented On 10:54AM ; [facility] Education and Decision Aids were provided during visit for: Discussed nutritional needs teach healthy choices including fruits and vegetables Last Documented On 4 3:46PM ; [facility] Patient education about a pr oper diet Last Documented On 4 3:46PM ; [facility] Discussed concerns about exe rcise : promote physical activity ~ ~WILL REFER TO PT AND DISTRICT OR DISTRICT OFFICE DIRECTOR ~ ~LEVEMIR IS NOT AVAILABLE SO WILL START LANTUS ( LONG ACTING INSULIN) ~ ~GOAL OF INSULIN IS TO GET TO PREVIOUS DOSE OF 70 UNITS PER DAY ~ ~START LANTUS AT 20 UNITS TWO TIMES PER DAY, MAKE SURE BLOOD SUGARS ARE STABLE AND YOU ARE TOLERATING IT FOR AT LEAST THREE DAYS BEFORE INCREASING ~ ~ ~ ~ Last Documented On 4 4:51PM ; [facility] Referred Patient to a Diabet es Self-Management Program Last Documented On 4 4:21PM ; [facility] Not requesting contraception Last Documented On 4 3:46PM ; [facility] Discussed nutritional needs teach healthy choices including fruits and vegetables Last Documented On 1 11:33AM ; [facility] Patient education about a pr oper diet Last Documented On 11:33AM ; [facility] Discussed concerns about exe rcise : promote physical activity ~ ~Follow up in one month Last Documented On 1 3:30PM ; [facility] Discussed nutritional needs teach healthy choices including fruits and vegetables Last Documented On 1 4:34PM ; [facility] Patient education about a pr oper diet Last Documented On 1 4:34PM ; [facility] Patient education about a ho me blood glucose monitor with instructions to bring monitor to each visit Last Documented On 1 4:43PM ; [facility] Dietary counseling pertainin g to diabetes mellitus Last Documented On 1 4:43PM ; [facility] Patient education about diab etic foot care Last Documented On 1 4:43PM ; [facility] Inquiry and counseling about medication administration and compliance Last Documented On 1 4:43PM ; [facility] Discussed concerns about exe rcise : promote physical activity Last Documented On 1 4:34PM ; [facility] Patient goals discussed Last Documented On 4:43PM ; [facility] The patient's goal is to tonny t the blood sugars and bring in the results to each visit Last Documented On 1 4:43PM ; [facility] NOTE: pt reported any inform ation [facility] needed was available on the internet; she could access it. She did not intend to put any information in her medical record that was not necessary or otherwise avaiable. ~ ~Also, if she were depressed or anxious, she would tell someone. SHe is not. She did, however, answer questions that allowed [facility] to complete the PHQ9 Last Documented On 8:58PM ; [facility] Discussed nutritional needs teach healthy choices including fruits and vegetables Last Documented On 10:41AM ; [facility] Patient education about a pr oper diet Last Documented On 10:41AM ; [facility] Patient education about regu lar dental care Last Documented On 10:54AM ; [facility] Patient education about a ho me blood glucose monitor with instructions to bring monitor to each visit Last Documented On 10:54AM ; [facility] Dietary counseling pertainin g to diabetes mellitus Last Documented On 10:54AM ; [facility] Patient education about diab etic foot care Last Documented On 10:54AM ; [facility] Inquiry and counseling about medication administration and compliance Last Documented On 10:54AM ; [facility] Discussed concerns about exe rcise : promote physical activity Last Documented On 10:41AM ; [facility] Patient goals discussed Last Documented On 10:54AM ; [facility] The patient's goal is to tonny t the blood sugars and bring in the results to each visit Last Documented On 10:54AM ; [facility] Work Phone: 1([phone]) 493-462311-02-2021 Instructions Includes: Instructions for all patient encounters Instructions to patient Maintain a healthy diet Last Documented On 4:43PM ; [facility] Maintain a healthy diet Last Documented On 10:54AM ; [facility] Education and Decision Aids were provided during visit for: Discussed nutritional needs teach healthy choices including fruits and vegetables Last Documented On 4 2:49PM ; [facility] Patient education about a pr oper diet Last Documented On 4 2:49PM ; [facility] Discussed concerns about exe rcise : promote physical activity ~ ~Follow up in one month Last Documented On 4 8:14AM ; [facility] Referred Patient to a Diabet es Self-Management Program Last Documented On 4 2:55PM ; [facility] Discussed nutritional needs teach healthy choices including fruits and vegetables Last Documented On 4 3:46PM ; [facility] Patient education about a pr oper diet Last Documented On 4 3:46PM ; [facility] Discussed concerns about exe rcise : promote physical activity ~ ~WILL REFER TO PT AND DISTRICT OR DISTRICT OFFICE DIRECTOR ~ ~LEVEMIR IS NOT AVAILABLE SO WILL START LANTUS ( LONG ACTING INSULIN) ~ ~GOAL OF INSULIN IS TO GET TO PREVIOUS DOSE OF 70 UNITS PER DAY ~ ~START LANTUS AT 20 UNITS TWO TIMES PER DAY, MAKE SURE BLOOD SUGARS ARE STABLE AND YOU ARE TOLERATING IT FOR AT LEAST THREE DAYS BEFORE INCREASING ~ ~ ~ ~ Last Documented On 4 4:51PM ; [facility] Referred Patient to a Diabet es Self-Management Program Last Documented On 4 4:21PM ; [facility] Not requesting contraception Last Documented On 4 3:46PM ; [facility] Discussed nutritional needs teach healthy choices including fruits and vegetables Last Documented On 1 11:33AM ; [facility] Patient education about a pr oper diet Last Documented On 1 11:33AM ; [facility] Discussed concerns about exe rcise : promote physical activity ~ ~Follow up in one month Last Documented On 1 3:30PM ; [facility] Discussed nutritional needs teach healthy choices including fruits and vegetables Last Documented On 1 4:34PM ; [facility] Patient education about a pr oper diet Last Documented On 1 4:34PM ; [facility] Patient education about a ho nh blood glucose monitor with instructions to bring monitor to each visit Last Documented On 4:43PM ; [facility] Dietary counseling pertainin g to diabetes mellitus Last Documented On 4:43PM ; [facility] Patient education about diab etic foot care Last Documented On 4:43PM ; [facility] Inquiry and counseling about medication administration and compliance Last Documented On 4:43PM ; [facility] Discussed concerns about exe rcise : promote physical activity Last Documented On 4:34PM ; [facility] Patient goals discussed Last Documented On 4:43PM ; [facility] The patient's goal is to tonny t the blood sugars and bring in the results to each visit Last Documented On 4:43PM ; [facility] NOTE: pt reported any inform ation [facility] needed was available on the internet; she could access it. She did not intend to put any information in her medical record that was not necessary or otherwise avaiable. ~ ~Also, if she were depressed or anxious, she would tell someone. SHe is not. She did, however, answer questions that allowed [facility] to complete the PHQ9 Last Documented On 8:58PM ; [facility] Discussed nutritional needs teach healthy choices including fruits and vegetables Last Documented On 10:41AM ; [facility] Patient education about a pr oper diet Last Documented On 10:41AM ; [facility] Patient education about regu lar dental care Last Documented On 10:54AM ; [facility] Patient education about a ho nh blood glucose monitor with instructions to bring monitor to each visit Last Documented On 10:54AM ; [facility] Dietary counseling pertainin g to diabetes mellitus Last Documented On 10:54AM ; [facility] Patient education about diab etic foot care Last Documented On 10:54AM ; [facility] Inquiry and counseling about medication administration and compliance Last Documented On 10:54AM ; [facility] Discussed concerns about exe rcise : promote physical activity Last Documented On 10/06/202 1 10:41AM ; [facility] Patient goals discussed Last Documented On 1 10:54AM ; [facility] The patient's goal is to tonny t the blood sugars and bring in the results to each visit Last Documented On 1 10:54AM ; [facility] Work Phone: [phone]) [phone] Instructions Includes: Instructions for all patient encounters Instructions to patient Maintain a healthy diet Last Documented On 1 4:43PM ; [facility] Maintain a healthy diet Last Documented On 1 10:54AM ; [facility] Education and Decision Aids were provided during visit for: Discussed nutritional needs teach healthy choices including fruits and vegetables Last Documented On 5 3:16PM ; [facility] Patient education about a pr oper diet Last Documented On 5 3:16PM ; [facility] Discussed concerns about exe rcise : promote physical activity ~ ~Discussed following up with spinal specialist ~ ~Continue to take diabetic medication at same dose Last Documented On 5 9:28AM ; [facility] Not requesting contraception Last Documented On 5 3:16PM ; [facility] Discussed nutritional needs teach healthy choices including fruits and vegetables Last Documented On 4 2:49PM ; [facility] Patient education about a pr oper diet Last Documented On 4 2:49PM ; [facility] Discussed concerns about exe rcise : promote physical activity ~ ~Follow up in one month Last Documented On 4 8:14AM ; [facility] Referred Patient to a Diabet es Self-Management Program Last Documented On 4 2:55PM ; [facility] Discussed nutritional needs teach healthy choices including fruits and vegetables Last Documented On 4 3:46PM ; [facility] Patient education about a pr oper diet Last Documented On 4 3:46PM ; [facility] Discussed concerns about exe rcise : promote physical activity ~ ~WILL REFER TO PT AND DISTRICT OR DISTRICT OFFICE DIRECTOR ~ ~LEVEMIR IS NOT AVAILABLE SO WILL START LANTUS ( LONG ACTING INSULIN) ~ ~GOAL OF INSULIN IS TO GET TO PREVIOUS DOSE OF 70 UNITS PER DAY ~ ~START LANTUS AT 20 UNITS TWO TIMES PER DAY, MAKE SURE BLOOD SUGARS ARE STABLE AND YOU ARE TOLERATING IT FOR AT LEAST THREE DAYS BEFORE INCREASING ~ ~ ~ ~ Last Documented On 4 4:51PM ; [facility] Referred Patient to a Diabet es Self-Management Program Last Documented On 4 4:21PM ; [facility] Not requesting contraception Last Documented On 4 3:46PM ; [facility] Discussed nutritional needs teach healthy choices including fruits and vegetables Last Documented On 11:33AM ; [facility] Patient education about a pr oper diet Last Documented On 11:33AM ; [facility] Discussed concerns about exe rcise : promote physical activity ~ ~Follow up in one month Last Documented On 1 3:30PM ; [facility] Discussed nutritional needs teach healthy choices including fruits and vegetables Last Documented On 1 4:34PM ; [facility] Patient education about a pr oper diet Last Documented On 1 4:34PM ; [facility] Patient education about a ho me blood glucose monitor with instructions to bring monitor to each visit Last Documented On 1 4:43PM ; [facility] Dietary counseling pertainin g to diabetes mellitus Last Documented On 1 4:43PM ; [facility] Patient education about diab etic foot care Last Documented On 1 4:43PM ; [facility] Inquiry and counseling about medication administration and compliance Last Documented On 1 4:43PM ; [facility] Discussed concerns about exe rcise : promote physical activity Last Documented On 1 4:34PM ; [facility] Patient goals discussed Last Documented On 1 4:43PM ; [facility] The patient's goal is to tonny t the blood sugars and bring in the results to each visit Last Documented On 4:43PM ; [facility] NOTE: pt reported any inform ation [facility] needed was available on the internet; she could access it. She did not intend to put any information in her medical record that was not necessary or otherwise avaiable. ~ ~Also, if she were depressed or anxious, she would tell someone. SHe is not. She did, however, answer questions that allowed [facility] to complete the PHQ9 Last Documented On 8:58PM ; [facility] Discussed nutritional needs teach healthy choices including fruits and vegetables Last Documented On 10:41AM ; [facility] Patient education about a pr oper diet Last Documented On 10:41AM ; [facility] Patient education about regu lar dental care Last Documented On 10:54AM ; [facility] Patient education about a ho me blood glucose monitor with instructions to bring monitor to each visit Last Documented On 10:54AM ; [facility] Dietary counseling pertainin g to diabetes mellitus Last Documented On 10:54AM ; [facility] Patient education about diab etic foot care Last Documented On 10:54AM ; [facility] Inquiry and counseling about medication administration and compliance Last Documented On 10:54AM ; [facility] Discussed concerns about exe rcise : promote physical activity Last Documented On 10:41AM ; [facility] Patient goals discussed Last Documented On 10:54AM ; [facility] The patient's goal is to tonny t the blood sugars and bring in the results to each visit Last Documented On 10:54AM ; [facility] Work Phone: 1([phone]) 403-935811-02-2021 Instructions Includes: Instructions for all patient encounters Instructions to patient Maintain a healthy diet Last Documented On 4:43PM ; [facility] Maintain a healthy diet Last Documented On 10:54AM ; [facility] Education and Decision Aids were provided during visit for: Discussed nutritional needs teach healthy choices including fruits and vegetables Last Documented On 5 3:16PM ; [facility] Patient education about a pr oper diet Last Documented On 5 3:16PM ; [facility] Discussed concerns about exe rcise : promote physical activity ~ ~Discussed following up with spinal specialist ~ ~Continue to take diabetic medication at same dose Last Documented On 5 9:28AM ; [facility] Not requesting contraception Last Documented On 5 3:16PM ; [facility] Discussed nutritional needs teach healthy choices including fruits and vegetables Last Documented On 4 2:49PM ; [facility] Patient education about a pr oper diet Last Documented On 4 2:49PM ; [facility] Discussed concerns about exe rcise : promote physical activity ~ ~Follow up in one month Last Documented On 4 8:14AM ; [facility] Referred Patient to a Diabet es Self-Management Program Last Documented On 4 2:55PM ; [facility] Discussed nutritional needs teach healthy choices including fruits and vegetables Last Documented On 4 3:46PM ; [facility] Patient education about a pr oper diet Last Documented On 4 3:46PM ; [facility] Discussed concerns about exe rcise : promote physical activity ~ ~WILL REFER TO PT AND DISTRICT OR DISTRICT OFFICE DIRECTOR ~ ~LEVEMIR IS NOT AVAILABLE SO WILL START LANTUS ( LONG ACTING INSULIN) ~ ~GOAL OF INSULIN IS TO GET TO PREVIOUS DOSE OF 70 UNITS PER DAY ~ ~START LANTUS AT 20 UNITS TWO TIMES PER DAY, MAKE SURE BLOOD SUGARS ARE STABLE AND YOU ARE TOLERATING IT FOR AT LEAST THREE DAYS BEFORE INCREASING ~ ~ ~ ~ Last Documented On 4 4:51PM ; [facility] Referred Patient to a Diabet es Self-Management Program Last Documented On 4 4:21PM ; [facility] Not requesting contraception Last Documented On 4 3:46PM ; [facility] Discussed nutritional needs teach healthy choices including fruits and vegetables Last Documented On 1 11:33AM ; [facility] Patient education about a pr oper diet Last Documented On 1 11:33AM ; [facility] Discussed concerns about exe rcise : promote physical activity ~ ~Follow up in one month Last Documented On 3:30PM ; [facility] Discussed nutritional needs teach healthy choices including fruits and vegetables Last Documented On 4:34PM ; [facility] Patient education about a pr oper diet Last Documented On 4:34PM ; [facility] Patient education about a ho me blood glucose monitor with instructions to bring monitor to each visit Last Documented On 4:43PM ; [facility] Dietary counseling pertainin g to diabetes mellitus Last Documented On 4:43PM ; [facility] Patient education about diab etic foot care Last Documented On 4:43PM ; [facility] Inquiry and counseling about medication administration and compliance Last Documented On 4:43PM ; [facility] Discussed concerns about exe rcise : promote physical activity Last Documented On 4:34PM ; [facility] Patient goals discussed Last Documented On 4:43PM ; [facility] The patient's goal is to tonny t the blood sugars and bring in the results to each visit Last Documented On 4:43PM ; [facility] NOTE: pt reported any inform ation [facility] needed was available on the internet; she could access it. She did not intend to put any information in her medical record that was not necessary or otherwise avaiable. ~ ~Also, if she were depressed or anxious, she would tell someone. SHe is not. She did, however, answer questions that allowed [facility] to complete the PHQ9 Last Documented On 8:58PM ; [facility] Discussed nutritional needs teach healthy choices including fruits and vegetables Last Documented On 10:41AM ; [facility] Patient education about a pr oper diet Last Documented On 10:41AM ; [facility] Patient education about regu lar dental care Last Documented On 10:54AM ; [facility] Patient education about a ho me blood glucose monitor with instructions to bring monitor to each visit Last Documented On 10:54AM ; [facility] Dietary counseling pertainin g to diabetes mellitus Last Documented On 10:54AM ; [facility] Patient education about diab etic foot care Last Documented On 10:54AM ; [facility] Inquiry and counseling about medication administration and compliance Last Documented On 10:54AM ; [facility] Discussed concerns about exe rcise : promote physical activity Last Documented On 10:41AM ; [facility] Patient goals discussed Last Documented On 10:54AM ; [facility] The patient's goal is to tonny t the blood sugars and bring in the results to each visit Last Documented On 10:54AM ; [facility] Work Phone: 1([phone]) 413-543511-02-2021 Instructions Includes: Instructions for all patient encounters Instructions to patient Maintain a healthy diet Last Documented On 1 4:43PM ; [facility] Maintain a healthy diet Last Documented On 10:54AM ; [facility] Education and Decision Aids were provided during visit for: Discussed nutritional needs teach healthy choices including fruits and vegetables Last Documented On 5 3:11PM ; [facility] Patient education about a pr oper diet Last Documented On 5 3:11PM ; [facility] Discussed concerns about exe rcise : promote physical activity Last Documented On 5 3:11PM ; [facility] Discussed nutritional needs teach healthy choices including fruits and vegetables Last Documented On 5 3:16PM ; [facility] Patient education about a pr oper diet Last Documented On 5 3:16PM ; [facility] Discussed concerns about exe rcise : promote physical activity ~ ~Discussed following up with spinal specialist ~ ~Continue to take diabetic medication at same dose Last Documented On 5 9:28AM ; [facility] Referred Patient to a Diabet es Self-Management Program Last Documented On 5 3:43PM ; [facility] Not requesting contraception Last Documented On 5 3:16PM ; [facility] Discussed nutritional needs teach healthy choices including fruits and vegetables Last Documented On 4 2:49PM ; [facility] Patient education about a pr oper diet Last Documented On 4 2:49PM ; [facility] Discussed concerns about exe rcise : promote physical activity ~ ~Follow up in one month Last Documented On 4 8:14AM ; [facility] Referred Patient to a Diabet es Self-Management Program Last Documented On 4 2:55PM ; [facility] Discussed nutritional needs teach healthy choices including fruits and vegetables Last Documented On 4 3:46PM ; [facility] Patient education about a pr oper diet Last Documented On 4 3:46PM ; [facility] Discussed concerns about exe rcise : promote physical activity ~ ~WILL REFER TO PT AND DISTRICT OR DISTRICT OFFICE DIRECTOR ~ ~LEVEMIR IS NOT AVAILABLE SO WILL START LANTUS ( LONG ACTING INSULIN) ~ ~GOAL OF INSULIN IS TO GET TO PREVIOUS DOSE OF 70 UNITS PER DAY ~ ~START LANTUS AT 20 UNITS TWO TIMES PER DAY, MAKE SURE BLOOD SUGARS ARE STABLE AND YOU ARE TOLERATING IT FOR AT LEAST THREE DAYS BEFORE INCREASING ~ ~ ~ ~ Last Documented On 4 4:51PM ; [facility] Referred Patient to a Diabet es Self-Management Program Last Documented On 4 4:21PM ; [facility] Not requesting contraception Last Documented On 4 3:46PM ; [facility] Discussed nutritional needs teach healthy choices including fruits and vegetables Last Documented On 1 11:33AM ; [facility] Patient education about a pr oper diet Last Documented On 1 11:33AM ; [facility] Discussed concerns about exe rcise : promote physical activity ~ ~Follow up in one month Last Documented On 1 3:30PM ; [facility] Discussed nutritional needs teach healthy choices including fruits and vegetables Last Documented On 1 4:34PM ; [facility] Patient education about a pr oper diet Last Documented On 1 4:34PM ; [facility] Patient education about a ho me blood glucose monitor with instructions to bring monitor to each visit Last Documented On 4:43PM ; [facility] Dietary counseling pertainin g to diabetes mellitus Last Documented On 4:43PM ; [facility] Patient education about diab etic foot care Last Documented On 4:43PM ; [facility] Inquiry and counseling about medication administration and compliance Last Documented On 4:43PM ; [facility] Discussed concerns about exe rcise : promote physical activity Last Documented On 4:34PM ; [facility] Patient goals discussed Last Documented On 4:43PM ; [facility] The patient's goal is to tonny t the blood sugars and bring in the results to each visit Last Documented On 4:43PM ; [facility] NOTE: pt reported any inform ation [facility] needed was available on the internet; she could access it. She did not intend to put any information in her medical record that was not necessary or otherwise avaiable. ~ ~Also, if she were depressed or anxious, she would tell someone. SHe is not. She did, however, answer questions that allowed [facility] to complete the PHQ9 Last Documented On 8:58PM ; [facility] Discussed nutritional needs teach healthy choices including fruits and vegetables Last Documented On 10:41AM ; [facility] Patient education about a pr oper diet Last Documented On 10:41AM ; [facility] Patient education about regu lar dental care Last Documented On 10:54AM ; [facility] Patient education about a ho me blood glucose monitor with instructions to bring monitor to each visit Last Documented On 10:54AM ; [facility] Dietary counseling pertainin g to diabetes mellitus Last Documented On 10:54AM ; [facility] Patient education about diab etic foot care Last Documented On 10:54AM ; [facility] Inquiry and counseling about medication administration and compliance Last Documented On 10/06/202 1 10:54AM ; [facility] Discussed concerns about exe rcise : promote physical activity Last Documented On 1 10:41AM ; [facility] Patient goals discussed Last Documented On 1 10:54AM ; [facility] The patient's goal is to tonny t the blood sugars and bring in the results to each visit Last Documented On 1 10:54AM ; [facility] Work Phone: [phone]) 361-244911-02-2021 Instructions Includes: Instructions for all patient encounters Instructions to patient Maintain a healthy diet Last Documented On 1 4:43PM ; [facility] Maintain a healthy diet Last Documented On 1 10:54AM ; [facility] Education and Decision Aids were provided during visit for: Discussed nutritional needs teach healthy choices including fruits and vegetables Last Documented On 5 3:11PM ; [facility] Patient education about a pr oper diet Last Documented On 5 3:11PM ; [facility] Discussed concerns about exe rcise : promote physical activity Last Documented On 5 3:11PM ; [facility] Discussed nutritional needs teach healthy choices including fruits and vegetables Last Documented On 5 3:16PM ; [facility] Patient education about a pr oper diet Last Documented On 5 3:16PM ; [facility] Discussed concerns about exe rcise : promote physical activity ~ ~Discussed following up with spinal specialist ~ ~Continue to take diabetic medication at same dose Last Documented On 5 9:28AM ; [facility] Referred Patient to a Diabet es Self-Management Program Last Documented On 5 3:43PM ; [facility] Not requesting contraception Last Documented On 5 3:16PM ; [facility] Discussed nutritional needs teach healthy choices including fruits and vegetables Last Documented On 4 2:49PM ; [facility] Patient education about a pr oper diet Last Documented On 4 2:49PM ; [facility] Discussed concerns about exe rcise : promote physical activity ~ ~Follow up in one month Last Documented On 4 8:14AM ; [facility] Referred Patient to a Diabet es Self-Management Program Last Documented On 4 2:55PM ; [facility] Discussed nutritional needs teach healthy choices including fruits and vegetables Last Documented On 4 3:46PM ; [facility] Patient education about a pr oper diet Last Documented On 4 3:46PM ; [facility] Discussed concerns about exe rcise : promote physical activity ~ ~WILL REFER TO PT AND DISTRICT OR DISTRICT OFFICE DIRECTOR ~ ~LEVEMIR IS NOT AVAILABLE SO WILL START LANTUS ( LONG ACTING INSULIN) ~ ~GOAL OF INSULIN IS TO GET TO PREVIOUS DOSE OF 70 UNITS PER DAY ~ ~START LANTUS AT 20 UNITS TWO TIMES PER DAY, MAKE SURE BLOOD SUGARS ARE STABLE AND YOU ARE TOLERATING IT FOR AT LEAST THREE DAYS BEFORE INCREASING ~ ~ ~ ~ Last Documented On 4 4:51PM ; [facility] Referred Patient to a Diabet es Self-Management Program Last Documented On 4 4:21PM ; [facility] Not requesting contraception Last Documented On 4 3:46PM ; [facility] Discussed nutritional needs teach healthy choices including fruits and vegetables Last Documented On 1 11:33AM ; [facility] Patient education about a pr oper diet Last Documented On 1 11:33AM ; [facility] Discussed concerns about exe rcise : promote physical activity ~ ~Follow up in one month Last Documented On 1 3:30PM ; [facility] Discussed nutritional needs teach healthy choices including fruits and vegetables Last Documented On 1 4:34PM ; [facility] Patient education about a pr oper diet Last Documented On 1 4:34PM ; [facility] Patient education about a ho me blood glucose monitor with instructions to bring monitor to each visit Last Documented On 1 4:43PM ; [facility] Dietary counseling pertainin g to diabetes mellitus Last Documented On 1 4:43PM ; [facility] Patient education about diab etic foot care Last Documented On 4:43PM ; [facility] Inquiry and counseling about medication administration and compliance Last Documented On 4:43PM ; [facility] Discussed concerns about exe rcise : promote physical activity Last Documented On 4:34PM ; [facility] Patient goals discussed Last Documented On 4:43PM ; [facility] The patient's goal is to tonny t the blood sugars and bring in the results to each visit Last Documented On 4:43PM ; [facility] NOTE: pt reported any inform ation [facility] needed was available on the internet; she could access it. She did not intend to put any information in her medical record that was not necessary or otherwise avaiable. ~ ~Also, if she were depressed or anxious, she would tell someone. SHe is not. She did, however, answer questions that allowed [facility] to complete the PHQ9 Last Documented On 8:58PM ; [facility] Discussed nutritional needs teach healthy choices including fruits and vegetables Last Documented On 10:41AM ; [facility] Patient education about a pr oper diet Last Documented On 10:41AM ; [facility] Patient education about regu lar dental care Last Documented On 10:54AM ; [facility] Patient education about a ho me blood glucose monitor with instructions to bring monitor to each visit Last Documented On 10:54AM ; [facility] Dietary counseling pertainin g to diabetes mellitus Last Documented On 10:54AM ; [facility] Patient education about diab etic foot care Last Documented On 10:54AM ; [facility] Inquiry and counseling about medication administration and compliance Last Documented On 10:54AM ; [facility] Discussed concerns about exe rcise : promote physical activity Last Documented On 10:41AM ; [facility] Patient goals discussed Last Documented On 10:54AM ; [facility] The patient's goal is to tonny t the blood sugars and bring in the results to each visit Last Documented On 1 10:54AM ; [facility] Work Phone: [phone]) 459-177811-02-2021 Instructions Includes: Instructions for all patient encounters Instructions to patient Maintain a healthy diet Last Documented On 1 4:43PM ; [facility] Maintain a healthy diet Last Documented On 1 10:54AM ; [facility] Education and Decision Aids were provided during visit for: Discussed nutritional needs teach healthy choices including fruits and vegetables Last Documented On 5 3:11PM ; [facility] Patient education about a pr oper diet Last Documented On 5 3:11PM ; [facility] Discussed concerns about exe rcise : promote physical activity ~ ~Follow up after ER visit Last Documented On 5 4:59PM ; [facility] Discussed nutritional needs teach healthy choices including fruits and vegetables Last Documented On 5 3:16PM ; [facility] Patient education about a pr oper diet Last Documented On 5 3:16PM ; [facility] Discussed concerns about exe rcise : promote physical activity ~ ~Discussed following up with spinal specialist ~ ~Continue to take diabetic medication at same dose Last Documented On 5 9:28AM ; [facility] Referred Patient to a Diabet es Self-Management Program Last Documented On 5 3:43PM ; [facility] Not requesting contraception Last Documented On 5 3:16PM ; [facility] Discussed nutritional needs teach healthy choices including fruits and vegetables Last Documented On 4 2:49PM ; [facility] Patient education about a pr oper diet Last Documented On 4 2:49PM ; [facility] Discussed concerns about exe rcise : promote physical activity ~ ~Follow up in one month Last Documented On 4 8:14AM ; [facility] Referred Patient to a Diabet es Self-Management Program Last Documented On 4 2:55PM ; [facility] Discussed nutritional needs teach healthy choices including fruits and vegetables Last Documented On 4 3:46PM ; [facility] Patient education about a pr oper diet Last Documented On 4 3:46PM ; [facility] Discussed concerns about exe rcise : promote physical activity ~ ~WILL REFER TO PT AND DISTRICT OR DISTRICT OFFICE DIRECTOR ~ ~LEVEMIR IS NOT AVAILABLE SO WILL START LANTUS ( LONG ACTING INSULIN) ~ ~GOAL OF INSULIN IS TO GET TO PREVIOUS DOSE OF 70 UNITS PER DAY ~ ~START LANTUS AT 20 UNITS TWO TIMES PER DAY, MAKE SURE BLOOD SUGARS ARE STABLE AND YOU ARE TOLERATING IT FOR AT LEAST THREE DAYS BEFORE INCREASING ~ ~ ~ ~ Last Documented On 4 4:51PM ; [facility] Referred Patient to a Diabet es Self-Management Program Last Documented On 4 4:21PM ; [facility] Not requesting contraception Last Documented On 4 3:46PM ; [facility] Discussed nutritional needs teach healthy choices including fruits and vegetables Last Documented On 1 11:33AM ; [facility] Patient education about a pr oper diet Last Documented On 1 11:33AM ; [facility] Discussed concerns about exe rcise : promote physical activity ~ ~Follow up in one month Last Documented On 1 3:30PM ; [facility] Discussed nutritional needs teach healthy choices including fruits and vegetables Last Documented On 1 4:34PM ; [facility] Patient education about a pr oper diet Last Documented On 1 4:34PM ; [facility] Patient education about a [facility] blood glucose monitor with instructions to bring monitor to each visit Last Documented On 1 4:43PM ; [facility] Dietary counseling pertainin g to diabetes mellitus Last Documented On 1 4:43PM ; [facility] Patient education about diab etic foot care Last Documented On 1 4:43PM ; [facility] Inquiry and counseling about medication administration and compliance Last Documented On 1 4:43PM ; [facility] Discussed concerns about exe rcise : promote physical activity Last Documented On 1 4:34PM ; [facility] Patient goals discussed Last Documented On 4:43PM ; [facility] The patient's goal is to tonny t the blood sugars and bring in the results to each visit Last Documented On 4:43PM ; [facility] NOTE: pt reported any inform ation [facility] needed was available on the internet; she could access it. She did not intend to put any information in her medical record that was not necessary or otherwise avaiable. ~ ~Also, if she were depressed or anxious, she would tell someone. SHe is not. She did, however, answer questions that allowed [facility] to complete the PHQ9 Last Documented On 8:58PM ; [facility] Discussed nutritional needs teach healthy choices including fruits and vegetables Last Documented On 10:41AM ; [facility] Patient education about a pr oper diet Last Documented On 10:41AM ; [facility] Patient education about regu lar dental care Last Documented On 10:54AM ; [facility] Patient education about a [facility] [place] blood glucose monitor with instructions to bring monitor to each visit Last Documented On 10:54AM ; [facility] Dietary counseling pertainin g to diabetes mellitus Last Documented On 10:54AM ; [facility] Patient education about diab etic foot care Last Documented On 10:54AM ; [facility] Inquiry and counseling about medication administration and compliance Last Documented On 10:54AM ; [facility] Discussed concerns about exe rcise : promote physical activity Last Documented On 10:41AM ; [facility] Patient goals discussed Last Documented On 10:54AM ; [facility] The patient's goal is to tonny t the blood sugars and bring in the results to each visit Last Documented On 10:54AM ; [facility] Work Phone: 1(193) 261-797011-02-2021 Instructions Includes: Instructions for all patient encounters Instructions to patient Maintain a healthy diet Last Documented On 4:43PM ; [facility] Maintain a healthy diet Last Documented On 1 10:54AM ; [facility] Education and Decision Aids were provided during visit for: Discussed nutritional needs teach healthy choices including fruits and vegetables Last Documented On 5 12:19PM ; [facility] Patient education about a pr oper diet Last Documented On 5 12:19PM ; [facility] Discussed concerns about exe rcise : promote physical activity ~ ~Follow up after ER visit Last Documented On 5 2:10PM ; [facility] Discussed nutritional needs teach healthy choices including fruits and vegetables Last Documented On 5 3:11PM ; [facility] Patient education about a pr oper diet Last Documented On 5 3:11PM ; [facility] Discussed concerns about exe rcise : promote physical activity ~ ~Follow up after ER visit Last Documented On 5 4:59PM ; [facility] Discussed nutritional needs teach healthy choices including fruits and vegetables Last Documented On 5 3:16PM ; [facility] Patient education about a pr oper diet Last Documented On 5 3:16PM ; [facility] Discussed concerns about exe rcise : promote physical activity ~ ~Discussed following up with spinal specialist ~ ~Continue to take diabetic medication at same dose Last Documented On 5 9:28AM ; [facility] Referred Patient to a Diabet es Self-Management Program Last Documented On 5 3:43PM ; [facility] Not requesting contraception Last Documented On 5 3:16PM ; [facility] Discussed nutritional needs teach healthy choices including fruits and vegetables Last Documented On 4 2:49PM ; [facility] Patient education about a pr oper diet Last Documented On 4 2:49PM ; [facility] Discussed concerns about exe rcise : promote physical activity ~ ~Follow up in one month Last Documented On 4 8:14AM ; [facility] Referred Patient to a Diabet es Self-Management Program Last Documented On 4 2:55PM ; [facility] Discussed nutritional needs teach healthy choices including fruits and vegetables Last Documented On 4 3:46PM ; [facility] Patient education about a pr oper diet Last Documented On 4 3:46PM ; [facility] Discussed concerns about exe rcise : promote physical activity ~ ~WILL REFER TO PT AND DISTRICT OR DISTRICT OFFICE DIRECTOR ~ ~LEVEMIR IS NOT AVAILABLE SO WILL START LANTUS ( LONG ACTING INSULIN) ~ ~GOAL OF INSULIN IS TO GET TO PREVIOUS DOSE OF 70 UNITS PER DAY ~ ~START LANTUS AT 20 UNITS TWO TIMES PER DAY, MAKE SURE BLOOD SUGARS ARE STABLE AND YOU ARE TOLERATING IT FOR AT LEAST THREE DAYS BEFORE INCREASING ~ ~ ~ ~ Last Documented On 4 4:51PM ; [facility] Referred Patient to a Diabet es Self-Management Program Last Documented On 4 4:21PM ; [facility] Not requesting contraception Last Documented On 4 3:46PM ; [facility] Discussed nutritional needs teach healthy choices including fruits and vegetables Last Documented On 1 11:33AM ; [facility] Patient education about a pr oper diet Last Documented On 1 11:33AM ; [facility] Discussed concerns about exe rcise : promote physical activity ~ ~Follow up in one month Last Documented On 1 3:30PM ; [facility] Discussed nutritional needs teach healthy choices including fruits and vegetables Last Documented On 1 4:34PM ; [facility] Patient education about a pr oper diet Last Documented On 1 4:34PM ; [facility] Patient education about a [facility] blood glucose monitor with instructions to bring monitor to each visit Last Documented On 1 4:43PM ; [facility] Dietary counseling pertainin g to diabetes mellitus Last Documented On 1 4:43PM ; [facility] Patient education about diab etic foot care Last Documented On 1 4:43PM ; [facility] Inquiry and counseling about medication administration and compliance Last Documented On 1 4:43PM ; [facility] Discussed concerns about exe rcise : promote physical activity Last Documented On 4:34PM ; [facility] Patient goals discussed Last Documented On 4:43PM ; [facility] The patient's goal is to tonny t the blood sugars and bring in the results to each visit Last Documented On 4:43PM ; [facility] NOTE: pt reported any inform ation [facility] needed was available on the internet; she could access it. She did not intend to put any information in her medical record that was not necessary or otherwise avaiable. ~ ~Also, if she were depressed or anxious, she would tell someone. SHe is not. She did, however, answer questions that allowed [facility] to complete the PHQ9 Last Documented On 8:58PM ; [facility] Discussed nutritional needs teach healthy choices including fruits and vegetables Last Documented On 10:41AM ; [facility] Patient education about a pr oper diet Last Documented On 10:41AM ; [facility] Patient education about regu lar dental care Last Documented On 10:54AM ; [facility] Patient education about a ho me blood glucose monitor with instructions to bring monitor to each visit Last Documented On 10:54AM ; [facility] Dietary counseling pertainin g to diabetes mellitus Last Documented On 10:54AM ; [facility] Patient education about diab etic foot care Last Documented On 10:54AM ; [facility] Inquiry and counseling about medication administration and compliance Last Documented On 10:54AM ; [facility] Discussed concerns about exe rcise : promote physical activity Last Documented On 10:41AM ; [facility] Patient goals discussed Last Documented On 10:54AM ; [facility] The patient's goal is to tonny t the blood sugars and bring in the results to each visit Last Documented On 10:54AM ; [facility] Work Phone: [phone] 181-148811-02-2021 Instructions Includes: Instructions for all patient encounters Instructions to patient Maintain a healthy diet Last Documented On 1 4:43PM ; [facility] Maintain a healthy diet Last Documented On 1 10:54AM ; [facility] Education and Decision Aids were provided during visit for: Discussed nutritional needs teach healthy choices including fruits and vegetables Last Documented On 5 9:31AM ; [facility] Patient education about a pr oper diet Last Documented On 5 9:31AM ; [facility] Discussed concerns about exe rcise : promote physical activity Last Documented On 5 9:31AM ; [facility] Discussed nutritional needs teach healthy choices including fruits and vegetables Last Documented On 5 12:19PM ; [facility] Patient education about a pr oper diet Last Documented On 5 12:19PM ; [facility] Discussed concerns about exe rcise : promote physical activity ~ ~Follow up after ER visit Last Documented On 5 2:10PM ; [facility] Discussed nutritional needs teach healthy choices including fruits and vegetables Last Documented On 5 3:11PM ; [facility] Patient education about a pr oper diet Last Documented On 5 3:11PM ; [facility] Discussed concerns about exe rcise : promote physical activity ~ ~Follow up after ER visit Last Documented On 5 4:59PM ; [facility] Discussed nutritional needs teach healthy choices including fruits and vegetables Last Documented On 5 3:16PM ; [facility] Patient education about a pr oper diet Last Documented On 5 3:16PM ; [facility] Discussed concerns about exe rcise : promote physical activity ~ ~Discussed following up with spinal specialist ~ ~Continue to take diabetic medication at same dose Last Documented On 5 9:28AM ; [facility] Referred Patient to a Diabet es Self-Management Program Last Documented On 5 3:43PM ; [facility] Not requesting contraception Last Documented On 5 3:16PM ; [facility] Discussed nutritional needs teach healthy choices including fruits and vegetables Last Documented On 4 2:49PM ; [facility] Patient education about a pr oper diet Last Documented On 4 2:49PM ; [facility] Discussed concerns about exe rcise : promote physical activity ~ ~Follow up in one month Last Documented On 4 8:14AM ; [facility] Referred Patient to a Diabet es Self-Management Program Last Documented On 4 2:55PM ; [facility] Discussed nutritional needs teach healthy choices including fruits and vegetables Last Documented On 4 3:46PM ; [facility] Patient education about a pr oper diet Last Documented On 4 3:46PM ; [facility] Discussed concerns about exe rcise : promote physical activity ~ ~WILL REFER TO PT AND DISTRICT OR DISTRICT OFFICE DIRECTOR ~ ~LEVEMIR IS NOT AVAILABLE SO WILL START LANTUS ( LONG ACTING INSULIN) ~ ~GOAL OF INSULIN IS TO GET TO PREVIOUS DOSE OF 70 UNITS PER DAY ~ ~START LANTUS AT 20 UNITS TWO TIMES PER DAY, MAKE SURE BLOOD SUGARS ARE STABLE AND YOU ARE TOLERATING IT FOR AT LEAST THREE DAYS BEFORE INCREASING ~ ~ ~ ~ Last Documented On 4 4:51PM ; [facility] Referred Patient to a Diabet es Self-Management Program Last Documented On 4 4:21PM ; [facility] Not requesting contraception Last Documented On 4 3:46PM ; [facility] Discussed nutritional needs teach healthy choices including fruits and vegetables Last Documented On 1 11:33AM ; [facility] Patient education about a pr oper diet Last Documented On 1 11:33AM ; [facility] Discussed concerns about exe rcise : promote physical activity ~ ~Follow up in one month Last Documented On 1 3:30PM ; [facility] Discussed nutritional needs teach healthy choices including fruits and vegetables Last Documented On 1 4:34PM ; [facility] Patient education about a pr oper diet Last Documented On 1 4:34PM ; [facility] Patient education about a ho nh blood glucose monitor with instructions to bring monitor to each visit Last Documented On 1 4:43PM ; [facility] Dietary counseling pertainin g to diabetes mellitus Last Documented On 4:43PM ; [facility] Patient education about diab etic foot care Last Documented On 4:43PM ; [facility] Inquiry and counseling about medication administration and compliance Last Documented On 4:43PM ; [facility] Discussed concerns about exe rcise : promote physical activity Last Documented On 4:34PM ; [facility] Patient goals discussed Last Documented On 4:43PM ; [facility] The patient's goal is to tonny t the blood sugars and bring in the results to each visit Last Documented On 4:43PM ; [facility] NOTE: pt reported any inform ation [facility] needed was available on the internet; she could access it. She did not intend to put any information in her medical record that was not necessary or otherwise avaiable. ~ ~Also, if she were depressed or anxious, she would tell someone. SHe is not. She did, however, answer questions that allowed [facility] to complete the PHQ9 Last Documented On 8:58PM ; [facility] Discussed nutritional needs teach healthy choices including fruits and vegetables Last Documented On 10:41AM ; [facility] Patient education about a pr oper diet Last Documented On 10:41AM ; [facility] Patient education about regu lar dental care Last Documented On 10:54AM ; [facility] Patient education about a ho nh blood glucose monitor with instructions to bring monitor to each visit Last Documented On 10:54AM ; [facility] Dietary counseling pertainin g to diabetes mellitus Last Documented On 10:54AM ; [facility] Patient education about diab etic foot care Last Documented On 10:54AM ; [facility] Inquiry and counseling about medication administration and compliance Last Documented On 10:54AM ; [facility] Discussed concerns about exe rcise : promote physical activity Last Documented On 10:41AM ; [facility] Patient goals discussed Last Documented On 1 10:54AM ; [facility] The patient's goal is to tonny t the blood sugars and bring in the results to each visit Last Documented On 1 10:54AM ; [facility] Work Phone: [phone] 435-987711-02-2021 Instructions Includes: Instructions for all patient encounters Instructions to patient Maintain a healthy diet Last Documented On 1 4:43PM ; [facility] Maintain a healthy diet Last Documented On 1 10:54AM ; [facility] Education and Decision Aids were provided during visit for: Discussed nutritional needs teach healthy choices including fruits and vegetables Last Documented On 5 3:03PM ; [facility] Patient education about a pr oper diet Last Documented On 5 3:03PM ; [facility] Discussed concerns about exe rcise : promote physical activity ~ ~Continue to follow up with orthopedics ~ ~Follow up for hgba1c in one month Last Documented On 5 9:04PM ; [facility] Referred Patient to a Diabet es Self-Management Program Last Documented On 5 3:16PM ; [facility] Discussed nutritional needs teach healthy choices including fruits and vegetables Last Documented On 5 9:31AM ; [facility] Patient education about a pr oper diet Last Documented On 5 9:31AM ; [facility] Discussed concerns about exe rcise : promote physical activity Last Documented On 5 9:31AM ; [facility] Discussed nutritional needs teach healthy choices including fruits and vegetables Last Documented On 5 12:19PM ; [facility] Patient education about a pr oper diet Last Documented On 5 12:19PM ; [facility] Discussed concerns about exe rcise : promote physical activity ~ ~Follow up after ER visit Last Documented On 5 2:10PM ; [facility] Discussed nutritional needs teach healthy choices including fruits and vegetables Last Documented On 5 3:11PM ; [facility] Patient education about a pr oper diet Last Documented On 5 3:11PM ; [facility] Discussed concerns about exe rcise : promote physical activity ~ ~Follow up after ER visit Last Documented On 5 4:59PM ; [facility] Discussed nutritional needs teach healthy choices including fruits and vegetables Last Documented On 5 3:16PM ; [facility] Patient education about a pr oper diet Last Documented On 5 3:16PM ; [facility] Discussed concerns about exe rcise : promote physical activity ~ ~Discussed following up with spinal specialist ~ ~Continue to take diabetic medication at same dose Last Documented On 5 9:28AM ; [facility] Referred Patient to a Diabet es Self-Management Program Last Documented On 5 3:43PM ; [facility] Not requesting contraception Last Documented On 5 3:16PM ; [facility] Discussed nutritional needs teach healthy choices including fruits and vegetables Last Documented On 4 2:49PM ; [facility] Patient education about a pr oper diet Last Documented On 4 2:49PM ; [facility] Discussed concerns about exe rcise : promote physical activity ~ ~Follow up in one month Last Documented On 4 8:14AM ; [facility] Referred Patient to a Diabet es Self-Management Program Last Documented On 4 2:55PM ; [facility] Discussed nutritional needs teach healthy choices including fruits and vegetables Last Documented On 4 3:46PM ; [facility] Patient education about a pr oper diet Last Documented On 4 3:46PM ; [facility] Discussed concerns about exe rcise : promote physical activity ~ ~WILL REFER TO PT AND DISTRICT OR DISTRICT OFFICE DIRECTOR ~ ~LEVEMIR IS NOT AVAILABLE SO WILL START LANTUS ( LONG ACTING INSULIN) ~ ~GOAL OF INSULIN IS TO GET TO PREVIOUS DOSE OF 70 UNITS PER DAY ~ ~START LANTUS AT 20 UNITS TWO TIMES PER DAY, MAKE SURE BLOOD SUGARS ARE STABLE AND YOU ARE TOLERATING IT FOR AT LEAST THREE DAYS BEFORE INCREASING ~ ~ ~ ~ Last Documented On 4 4:51PM ; [facility] Referred Patient to a Diabet es Self-Management Program Last Documented On 4 4:21PM ; [facility] Not requesting contraception Last Documented On 4 3:46PM ; [facility] Discussed nutritional needs teach healthy choices including fruits and vegetables Last Documented On 1 11:33AM ; [facility] Patient education about a pr oper diet Last Documented On 1 11:33AM ; [facility] Discussed concerns about exe rcise : promote physical activity ~ ~Follow up in one month Last Documented On 1 3:30PM ; [facility] Discussed nutritional needs teach healthy choices including fruits and vegetables Last Documented On 1 4:34PM ; [facility] Patient education about a pr oper diet Last Documented On 4:34PM ; [facility] Patient education about a ho me blood glucose monitor with instructions to bring monitor to each visit Last Documented On 1 4:43PM ; [facility] Dietary counseling pertainin g to diabetes mellitus Last Documented On 1 4:43PM ; [facility] Patient education about diab etic foot care Last Documented On 1 4:43PM ; [facility] Inquiry and counseling about medication administration and compliance Last Documented On 1 4:43PM ; [facility] Discussed concerns about exe rcise : promote physical activity Last Documented On 1 4:34PM ; [facility] Patient goals discussed Last Documented On 1 4:43PM ; [facility] The patient's goal is to tonny t the blood sugars and bring in the results to each visit Last Documented On 1 4:43PM ; [facility] NOTE: pt reported any inform ation [facility] needed was available on the internet; she could access it. She did not intend to put any information in her medical record that was not necessary or otherwise avaiable. ~ ~Also, if she were depressed or anxious, she would tell someone. SHe is not. She did, however, answer questions that allowed [facility] to complete the PHQ9 Last Documented On 8:58PM ; [facility] Discussed nutritional needs teach healthy choices including fruits and vegetables Last Documented On 10:41AM ; [facility] Patient education about a pr oper diet Last Documented On 10:41AM ; [facility] Patient education about regu lar dental care Last Documented On 10:54AM ; [facility] Patient education about a ho nh blood glucose monitor with instructions to bring monitor to each visit Last Documented On 10:54AM ; [facility] Dietary counseling pertainin g to diabetes mellitus Last Documented On 10:54AM ; [facility] Patient education about diab etic foot care Last Documented On 10:54AM ; [facility] Inquiry and counseling about medication administration and compliance Last Documented On 10:54AM ; [facility] Discussed concerns about exe rcise : promote physical activity Last Documented On 10:41AM ; [facility] Patient goals discussed Last Documented On 10:54AM ; [facility] The patient's goal is to tonny t the blood sugars and bring in the results to each visit Last Documented On 10:54AM ; [facility] Work Phone: 1([phone]) 229-359011-02-2021 Instructions Includes: Instructions for all patient encounters Instructions to patient Maintain a healthy diet Last Documented On 4:43PM ; [facility] Maintain a healthy diet Last Documented On 10:54AM ; [facility] Education and Decision Aids were provided during visit for: Discussed nutritional needs teach healthy choices including fruits and vegetables Last Documented On 5 10:55AM ; [facility] Patient education about a pr oper diet Last Documented On 5 10:55AM ; [facility] Discussed concerns about exe rcise : promote physical activity ~ ~Follow up in one month for evaluation of symptoms ~ ~Will give tramadol to help with pain, take tylenol and motrin between doses Last Documented On 5 6:15AM ; [facility] Referred Patient to a Diabet es Self-Management Program Last Documented On 5 11:05AM ; [facility] Not requesting contraception Last Documented On 5 10:59AM ; [facility] Discussed nutritional needs teach healthy choices including fruits and vegetables Last Documented On 5 3:03PM ; [facility] Patient education about a pr oper diet Last Documented On 5 3:03PM ; [facility] Discussed concerns about exe rcise : promote physical activity ~ ~Continue to follow up with orthopedics ~ ~Follow up for hgba1c in one month Last Documented On 5 9:04PM ; [facility] Referred Patient to a Diabet es Self-Management Program Last Documented On 5 3:16PM ; [facility] Discussed nutritional needs teach healthy choices including fruits and vegetables Last Documented On 5 9:31AM ; [facility] Patient education about a pr oper diet Last Documented On 5 9:31AM ; [facility] Discussed concerns about exe rcise : promote physical activity Last Documented On 5 9:31AM ; [facility] Discussed nutritional needs teach healthy choices including fruits and vegetables Last Documented On 5 12:19PM ; [facility] Patient education about a pr oper diet Last Documented On 5 12:19PM ; [facility] Discussed concerns about exe rcise : promote physical activity ~ ~Follow up after ER visit Last Documented On 5 2:10PM ; [facility] Discussed nutritional needs teach healthy choices including fruits and vegetables Last Documented On 5 3:11PM ; [facility] Patient education about a pr oper diet Last Documented On 5 3:11PM ; [facility] Discussed concerns about exe rcise : promote physical activity ~ ~Follow up after ER visit Last Documented On 5 4:59PM ; [facility] Discussed nutritional needs teach healthy choices including fruits and vegetables Last Documented On 5 3:16PM ; [facility] Patient education about a pr oper diet Last Documented On 5 3:16PM ; [facility] Discussed concerns about exe rcise : promote physical activity ~ ~Discussed following up with spinal specialist ~ ~Continue to take diabetic medication at same dose Last Documented On 5 9:28AM ; [facility] Referred Patient to a Diabet es Self-Management Program Last Documented On 5 3:43PM ; [facility] Not requesting contraception Last Documented On 5 3:16PM ; [facility] Discussed nutritional needs teach healthy choices including fruits and vegetables Last Documented On 4 2:49PM ; [facility] Patient education about a pr oper diet Last Documented On 4 2:49PM ; [facility] Discussed concerns about exe rcise : promote physical activity ~ ~Follow up in one month Last Documented On 4 8:14AM ; [facility] Referred Patient to a Diabet es Self-Management Program Last Documented On 4 2:55PM ; [facility] Discussed nutritional needs teach healthy choices including fruits and vegetables Last Documented On 4 3:46PM ; [facility] Patient education about a pr oper diet Last Documented On 4 3:46PM ; [facility] Discussed concerns about exe rcise : promote physical activity ~ ~WILL REFER TO PT AND DISTRICT OR DISTRICT OFFICE DIRECTOR ~ ~LEVEMIR IS NOT AVAILABLE SO WILL START LANTUS ( LONG ACTING INSULIN) ~ ~GOAL OF INSULIN IS TO GET TO PREVIOUS DOSE OF 70 UNITS PER DAY ~ ~START LANTUS AT 20 UNITS TWO TIMES PER DAY, MAKE SURE BLOOD SUGARS ARE STABLE AND YOU ARE TOLERATING IT FOR AT LEAST THREE DAYS BEFORE INCREASING ~ ~ ~ ~ Last Documented On 4 4:51PM ; [facility] Referred Patient to a Diabet es Self-Management Program Last Documented On 4 4:21PM ; [facility] Not requesting contraception Last Documented On 4 3:46PM ; [facility] Discussed nutritional needs teach healthy choices including fruits and vegetables Last Documented On 1 11:33AM ; [facility] Patient education about a pr oper diet Last Documented On 11:33AM ; [facility] Discussed concerns about exe rcise : promote physical activity ~ ~Follow up in one month Last Documented On 3:30PM ; [facility] Discussed nutritional needs teach healthy choices including fruits and vegetables Last Documented On 4:34PM ; [facility] Patient education about a pr oper diet Last Documented On 4:34PM ; [facility] Patient education about a ho me blood glucose monitor with instructions to bring monitor to each visit Last Documented On 4:43PM ; [facility] Dietary counseling pertainin g to diabetes mellitus Last Documented On 4:43PM ; [facility] Patient education about diab etic foot care Last Documented On 4:43PM ; [facility] Inquiry and counseling about medication administration and compliance Last Documented On 4:43PM ; [facility] Discussed concerns about exe rcise : promote physical activity Last Documented On 4:34PM ; [facility] Patient goals discussed Last Documented On 4:43PM ; [facility] The patient's goal is to tonny t the blood sugars and bring in the results to each visit Last Documented On 4:43PM ; [facility] NOTE: pt reported any inform ation [facility] needed was available on the internet; she could access it. She did not intend to put any information in her medical record that was not necessary or otherwise avaiable. ~ ~Also, if she were depressed or anxious, she would tell someone. SHe is not. She did, however, answer questions that allowed [facility] to complete the PHQ9 Last Documented On 8:58PM ; [facility] Discussed nutritional needs teach healthy choices including fruits and vegetables Last Documented On 10:41AM ; [facility] Patient education about a pr oper diet Last Documented On 10:41AM ; [facility] Patient education about regu lar dental care Last Documented On 10:54AM ; [facility] Patient education about a ho nh blood glucose monitor with instructions to bring monitor to each visit Last Documented On 10:54AM ; [facility] Dietary counseling pertainin g to diabetes mellitus Last Documented On 10:54AM ; [facility] Patient education about diab etic foot care Last Documented On 10:54AM ; [facility] Inquiry and counseling about medication administration and compliance Last Documented On 10:54AM ; [facility] Discussed concerns about exe rcise : promote physical activity Last Documented On 10:41AM ; [facility] Patient goals discussed Last Documented On 10:54AM ; [facility] The patient's goal is to tonny t the blood sugars and bring in the results to each visit Last Documented On 10:54AM ; [facility] Work Phone: 1(779) 762-386011-02-2021 Instructions Includes: Instructions for all patient encounters Instructions to patient Maintain a healthy diet Last Documented On 4:43PM ; [facility] Maintain a healthy diet Last Documented On 10:54AM ; [facility] Education and Decision Aids were provided during visit for: Discussed nutritional needs teach healthy choices including fruits and vegetables Last Documented On 5 12:06PM ; [facility] Patient education about a pr oper diet Last Documented On 5 12:06PM ; [facility] Discussed concerns about exe rcise : promote physical activity ~ ~Follow up next week for BP check ~ ~Go to ER if blood pressure drops below 90 systolic and you are symptomatic ~ ~ Last Documented On 5 3:50PM ; [facility] Referred Patient to a Diabet es Self-Management Program Last Documented On 5 12:14PM ; [facility] Discussed nutritional needs teach healthy choices including fruits and vegetables Last Documented On 5 12:48PM ; [facility] Patient education about a pr oper diet Last Documented On 5 12:48PM ; [facility] Discussed concerns about exe rcise : promote physical activity ~ ~Will start duloxetine to help with nerve pain and mood ~ ~Start taking insulin as prescribed ~ ~Follow up in one month Last Documented On 5 1:57PM ; [facility] Referred Patient to a Diabet es Self-Management Program Last Documented On 5 12:48PM ; [facility] Discussed nutritional needs teach healthy choices including fruits and vegetables Last Documented On 5 10:55AM ; [facility] Patient education about a pr oper diet Last Documented On 5 10:55AM ; [facility] Discussed concerns about exe rcise : promote physical activity ~ ~Follow up in one month for evaluation of symptoms ~ ~Will give tramadol to help with pain, take tylenol and motrin between doses Last Documented On 5 6:15AM ; [facility] Referred Patient to a Diabet es Self-Management Program Last Documented On 5 11:05AM ; [facility] Not requesting contraception Last Documented On 5 10:59AM ; [facility] Discussed nutritional needs teach healthy choices including fruits and vegetables Last Documented On 5 3:03PM ; [facility] Patient education about a pr oper diet Last Documented On 5 3:03PM ; [facility] Discussed concerns about exe rcise : promote physical activity ~ ~Continue to follow up with orthopedics ~ ~Follow up for hgba1c in one month Last Documented On 5 9:04PM ; [facility] Referred Patient to a Diabet es Self-Management Program Last Documented On 5 3:16PM ; [facility] Discussed nutritional needs teach healthy choices including fruits and vegetables Last Documented On 5 9:31AM ; [facility] Patient education about a pr oper diet Last Documented On 5 9:31AM ; [facility] Discussed concerns about exe rcise : promote physical activity Last Documented On 5 9:31AM ; [facility] Discussed nutritional needs teach healthy choices including fruits and vegetables Last Documented On 5 12:19PM ; [facility] Patient education about a pr oper diet Last Documented On 5 12:19PM ; [facility] Discussed concerns about exe rcise : promote physical activity ~ ~Follow up after ER visit Last Documented On 5 2:10PM ; [facility] Discussed nutritional needs teach healthy choices including fruits and vegetables Last Documented On 5 3:11PM ; [facility] Patient education about a pr oper diet Last Documented On 5 3:11PM ; [facility] Discussed concerns about exe rcise : promote physical activity ~ ~Follow up after ER visit Last Documented On 5 4:59PM ; [facility] Discussed nutritional needs teach healthy choices including fruits and vegetables Last Documented On 5 3:16PM ; [facility] Patient education about a pr oper diet Last Documented On 5 3:16PM ; [facility] Discussed concerns about exe rcise : promote physical activity ~ ~Discussed following up with spinal specialist ~ ~Continue to take diabetic medication at same dose Last Documented On 5 9:28AM ; [facility] Referred Patient to a Diabet es Self-Management Program Last Documented On 5 3:43PM ; [facility] Not requesting contraception Last Documented On 5 3:16PM ; [facility] Discussed nutritional needs teach healthy choices including fruits and vegetables Last Documented On 4 2:49PM ; [facility] Patient education about a pr oper diet Last Documented On 4 2:49PM ; [facility] Discussed concerns about exe rcise : promote physical activity ~ ~Follow up in one month Last Documented On 4 8:14AM ; [facility] Referred Patient to a Diabet es Self-Management Program Last Documented On 4 2:55PM ; [facility] Discussed nutritional needs teach healthy choices including fruits and vegetables Last Documented On 4 3:46PM ; [facility] Patient education about a pr oper diet Last Documented On 4 3:46PM ; [facility] Discussed concerns about exe rcise : promote physical activity ~ ~WILL REFER TO PT AND DISTRICT OR DISTRICT OFFICE DIRECTOR ~ ~LEVEMIR IS NOT AVAILABLE SO WILL START LANTUS ( LONG ACTING INSULIN) ~ ~GOAL OF INSULIN IS TO GET TO PREVIOUS DOSE OF 70 UNITS PER DAY ~ ~START LANTUS AT 20 UNITS TWO TIMES PER DAY, MAKE SURE BLOOD SUGARS ARE STABLE AND YOU ARE TOLERATING IT FOR AT LEAST THREE DAYS BEFORE INCREASING ~ ~ ~ ~ Last Documented On 4 4:51PM ; [facility] Referred Patient to a Diabet es Self-Management Program Last Documented On 4 4:21PM ; [facility] Not requesting contraception Last Documented On 4 3:46PM ; [facility] Discussed nutritional needs teach healthy choices including fruits and vegetables Last Documented On 1 11:33AM ; [facility] Patient education about a pr oper diet Last Documented On 11:33AM ; [facility] Discussed concerns about exe rcise : promote physical activity ~ ~Follow up in one month Last Documented On 1 3:30PM ; [facility] Discussed nutritional needs teach healthy choices including fruits and vegetables Last Documented On 1 4:34PM ; [facility] Patient education about a pr oper diet Last Documented On 1 4:34PM ; [facility] Patient education about a ho me blood glucose monitor with instructions to bring monitor to each visit Last Documented On 1 4:43PM ; [facility] Dietary counseling pertainin g to diabetes mellitus Last Documented On 1 4:43PM ; [facility] Patient education about diab etic foot care Last Documented On 1 4:43PM ; [facility] Inquiry and counseling about medication administration and compliance Last Documented On 1 4:43PM ; [facility] Discussed concerns about exe rcise : promote physical activity Last Documented On 1 4:34PM ; [facility] Patient goals discussed Last Documented On 1 4:43PM ; [facility] The patient's goal is to tonny t the blood sugars and bring in the results to each visit Last Documented On 1 4:43PM ; [facility] NOTE: pt reported any inform ation P needed was available on the internet; she could access it. She did not intend to put any information in her medical record that was not necessary or otherwise avaiable. ~ ~Also, if she were depressed or anxious, she would tell someone. SHe is not. She did, however, answer questions that allowed P to complete the PHQ9 Last Documented On 8:58PM ; [facility] Discussed nutritional needs teach healthy choices including fruits and vegetables Last Documented On 10:41AM ; [facility] Patient education about a pr oper diet Last Documented On 10:41AM ; [facility] Patient education about regu lar dental care Last Documented On 10:54AM ; [facility] Patient education about a ho me blood glucose monitor with instructions to bring monitor to each visit Last Documented On 10:54AM ; [facility] Dietary counseling pertainin g to diabetes mellitus Last Documented On 10:54AM ; [facility] Patient education about diab etic foot care Last Documented On 10:54AM ; [facility] Inquiry and counseling about medication administration and compliance Last Documented On 10:54AM ; [facility] Discussed concerns about exe rcise : promote physical activity Last Documented On 10:41AM ; [facility] Patient goals discussed Last Documented On 10:54AM ; [facility] The patient's goal is to tonny t the blood sugars and bring in the results to each visit Last Documented On 10:54AM ; [facility] Work Phone: 1(564) 166-316211-02-2021 Evaluation note Includes: Assessments for all patient encounters Findings Encounter Date Assessment of body mass inde x [Body mass index [BMI] 31.0-31.9, adult] Medical Established Patient with Kavita Hardeep JIMENEZ 05/18/2021 Assessment of body mass inde x [Body mass index [BMI] 29.0-29.9, adult] Medical New Patient with Kavita Bryanter JEWELRY CASTING MODEL MAKER 04/21/2021 Type 2 diabetes mellitus Medical New Pat ient with Kavita Hardeep JEWELRY CASTING MODEL MAKER 04/21/2021 [facility] Work Phone: 1(545) 828-357910-06-2021 Evaluation note Includes: Assessments for all patient encounters Findings Encounter Date Assessment of body mass inde x [Body mass index [BMI] 29.0-29.9, adult] Medical New Patient with Kavita Hardeep JEWELRY CASTING MODEL MAKER 04/21/2021 Type 2 diabetes mellitus Medical New Pat ient with Kavita Hardeep JEWELRY CASTING MODEL MAKER 04/21/2021 [facility] Work Phone: 1(291) 616-310010-06-2021 History general Narrative - Reported Includes: Medical History in patient's chart Description Last Updated History of diabetes mellitus 04/21/2021 Previous hospitalizations [facility] 04-16-21 04/21/2021 [facility] Work Phone: 1(991) 611-570310-06-2021 History general Narrative - Reported Includes: Medical History in patient's chart Description Last Updated History of diabetes mellitus 04/21/2021 Last Documented On 1 12:10PM ; [facility] Previous hospitalizations [facility] 04-16-21 04/21/2021 Last Documented On 1 12:10PM ; [facility] Work Phone: 1(322) 182-822010-01-2021 History general Narrative - Reported Includes: Medical History in patient's chart Description Last Updated History of diabetes mellitus 04/21/2021 Previous hospitalizations [facility] 04-16-21 04/21/2021 [facility] Work Phone: 1(119) 659-723610-01-2021 History general Narrative - Reported Includes: Medical History in patient's chart Description Last Updated No previous hospitalizations [facility] 04-16-21 06/06/2024 Last Documented On 4 11:06AM ; [facility] History of diabetes mellitus 04/21/2021 Last Documented On 1 12:10PM ; [facility] Work Phone: 1(185) 779-351210-01-2021 History general Narrative - Reported Includes: Medical History in patient's chart Description Last Updated No previous hospitalizations [facility] 04-[facility] 06/06/2024 Last Documented On 4 11:06AM ; [facility] History of diabetes mellitus 04/21/2021 Last Documented On 1 12:10PM ; [facility] Work Phone: 1(108) 579-985610-01-2021 History general Narrative - Reported Includes: Medical History in patient's chart Description Last Updated No previous hospitalizations [facility] 04-[facility]-21 06/06/2024 Last Documented On 4 11:06AM ; [facility] History of diabetes mellitus 04/21/2021 Last Documented On 1 12:10PM ; [facility] Work Phone: 1(536) 554-999310-01-2021 History general Narrative - Reported Includes: Medical History in patient's chart Description Last Updated No previous hospitalizations [facility] 04-16-21 06/06/2024 Last Documented On 4 11:06AM ; [facility] History of diabetes mellitus 04/21/2021 Last Documented On 1 12:10PM ; [facility] Work Phone: 1(168) 761-676610-01-2021 History general Narrative - Reported Includes: Medical History in patient's chart Description Last Updated No previous hospitalizations [facility] 04-16-21 06/06/2024 Last Documented On 4 11:06AM ; [facility] History of diabetes mellitus 04/21/2021 Last Documented On 1 12:10PM ; [facility] Work Phone: 1(794) 754-451910-01-2021 History general Narrative - Reported Includes: Medical History in patient's chart Description Last Updated No previous hospitalizations [facility] 04-[facility] 06/06/2024 Last Documented On 4 11:06AM ; [facility] History of diabetes mellitus 04/21/2021 Last Documented On 1 12:10PM ; [facility] Work Phone: 1([phone]) 538-566810-01-2021 History general Narrative - Reported Includes: Medical History in patient's chart Description Last Updated No previous hospitalizations [facility] 04-16-21 06/06/2024 Last Documented On 4 11:06AM ; [facility] History of diabetes mellitus 04/21/2021 Last Documented On 1 12:10PM ; [facility] Work Phone: 1([phone]) 542-441510-01-2021 History general Narrative - Reported Includes: Medical History in patient's chart Description Last Updated No previous hospitalizations [facility] 04-16-21 06/06/2024 Last Documented On 4 11:06AM ; [facility] History of diabetes mellitus 04/21/2021 Last Documented On 1 12:10PM ; [facility] Work Phone: 1(120) 282-866110-01-2021 History general Narrative - Reported Includes: Medical History in patient's chart Description Last Updated No previous hospitalizations [facility] 04-16-21 06/06/2024 Last Documented On 4 11:06AM ; [facility] History of diabetes mellitus 04/21/2021 Last Documented On 1 12:10PM ; [facility] Work Phone: 1([phone]) 619-154310-01-2021 History of Present illness Narrative* Gali Knapp LSW - 04/16/2021 9:58 AM EDT Acknowledge pt discharge to home today. Glucometer prescription sent for pt and she has [employer] so meds should be covered well for her. No further discharge needs expressed by pt. Gali RECINOS 04/16/2021 * Angelika Bunch RN - 04/16/2021 8:47 AM EDT Discharge instructions provided; pt verbalizes understanding. Pt discharged to private vehicle withall documented belongings. * Roverto Barbour MD - 04/16/2021 6:22 AM EDT Hospitalist Progress Note 04/16/2021 6:22 AM Subjective: Admit Date: 04/13/2021 PCP: No primary care provider on file. Interval History: Casandra states she is feeling back to normal. [...] aortic stenosis on ECHO - discussed with Casandra. She was told she will need a [...] primary care provider on file. Interval History: Casandra states she is feeling much better. Nausea [...] am. 2. Saline lock IV. 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 4. Increase ambulation this am. 5. Will [...] diabetes mellitus (HCC) Roverto Barbour MD, MD [facility] Hospitalist * Juan Salamanca RN - 04/14/2021 [...] approx 25 minutes for inpatient diabetes education. Casandra has been diabetic since she was 30. [...] for People with Diabetes Abbie Falk RN [facility] Diabetes clinic educator 04/14/2021 4:54 PM * Gali Knapp LSW - 04/14/2021 11:39 AM EDT SW met with pt to complete assessment during quality rounds with automotive general sales manager. Pt is alert and oriented but not happy with visit because she is trying to sleep. Pt does cooperate with assessment. Pt lives alone in her home in [place]. Pt reports that she uses no DME or community services at home.Pt reports that her glucometer is outdated. Pt drives and is able to get herself to appointments. Pt is a full code and is currently without a PCP. automotive general sales manager to find a provider for her and [...] SW will follow and remain available. Gali Ortiz [facility] 04/14/2021 * Juan Salamanca RN - 04/14/2021 11:12 AM EDT Potassium level 2.9. Potassium being given per protocol. * Joe Oquendo RN - 04/14/2021 11:03 AM EDT RN phones [facility] to check if office would accept pt. Per Arnold, if one provider dismissesa patient then the dismissal stands for the entire office. Pt was dismissed from practice per Ashley. * Joe Oquendo RN - 04/14/2021 10:00 AM EDT Quality flow rounds held on 04/14/21 Casandra Gonzalez is admitted for DKA Length of [...] a living will or durable power of assistant county attorney for healthcare? denies If yes do we have a copy on file? n/a Do you or your family have any questions or concerns we haven't already discussed? Denies Lives alone. Pt states she has no PCP, states Ade fired me . Pt is agreeable to have fha underwriter setup a follow up appt with a new provider. Pt states she has no preference with who and either Katy Leyva is ok. Gali ALEMAN and fha underwriter present for rounding. 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 Ticket Taker Strength: Not Performed Estimated Daily Nutrient Needs: Energy (kcal): 9325-8624 (20-23/kg); Weight Used for Energy Requirements: Current Protein (g): 74-86g (1.3-1.5g/kg); Weight Used for Protein Requirements: [place] Fluid (ml/day): 1817 ml; Method Used for [...] but likely stated, lastPt wt 187# in 2020 historical weights) Usual Body Weight: 187 lb (84.8 kg) (03/04/2020) [place] Body Weight: 125 lbs; % [place] Body Weight 139.2 % BMI: 29 BMI Categories: Overweight (BMI 25.0-29.9) Nutrition Diagnosis: Altered nutrition-related lab values related to endocrine dysfuntion as evidenced by lab values Nutrition Interventions: Food and/or Nutrient Delivery: Continue Current Diet Nutrition Education/Counseling: Education initiated Coordination of Nutrition Care: Continue to monitor while inpatient Goals: PO > 75% of meals Recent Labs 04/13/21 18304/13/21 18304/13/21202804/13/21211904/14/210 04/14/21 0526 NA 130* -- -- -- [...] diet, Recommend pursue outpatient diabetes education Contact: [phone] * Juan Salamanca RN - 04/14/2021 7:44 [...] EDT Pt initially refuses BG finger stick. Property Accountant educates pt on importance of hourly checks. [...] appropriate mixing of sodium phosphate with [facility] pharmacist at [facility].Also verified X2 RN. * Vidhya Reyes RN [...] this time for safety. [facility] Phone: 1(338) 764-519409-30-2021 Hospital Discharge instructions* Instructions* Roverto Barbour MD - 04/15/2021 Discharge Instructions Admission Date: 04/13/2021 Discharge Date: 04/16/21 Disposition: Home Activity: As tolerated Diet: Diabetic Discharge Medication: Casandra Gonzalez Home Medication Instructions EVETTE:[id number] Printed on:04/16/21 0639 Medication Information blood glucose [...] 1 to 2 weeks. [facility]: evaluation note* Diagnosis Diabetic ketoacidosis without coma associated with diabetes mellitus due to underlying condition (HCC)- Primary Type 2 diabetes mellitus with complication, without long-term current use of insulin (HCC) Nephrolithiasis Calculus of kidney Diabetic ketoacidosis without coma associated with type 2 diabetes mellitus (HCC) documented in this encounter [employer] Phone: evaluation note Includes: Assessments for all patient encounters Findings Encounter Date Assessment of body mass inde x [Body mass index [BMI] 29.0-29.9, adult] Medical New Patient with Kavita Qureshi CNP 04/21/2021 Type 2 diabetes mellitus Medical New Pat ient with Kavita Qureshi CNP 04/21/2021 [facility] Work Phone: Evaluation note* Diagnosis Uncontrolled type 2 diabetes mellitus with hyperglycemia- Primary Mixed hyperlipidemia Obesity (BMI 30.0-34.9) Obesity, unspecified Alisia syndrome Alisia's syndrome [facility] Diagnosis Uncontrolled type 2 diabetes mellitus with hyperglycemia- [facility] Diagnosis Uncontrolled type 2 diabetes mellitus with hyperglycemia- Primary documented in this encounter [facility] note* Diagnosis Dysuria Acute cystitis with hematuria Acute cystitis documented in this encounter [employer] Phone: [email or web address] note* Diagnosis Uncontrolled type 2 diabetes mellitus with hyperglycemia- Primary documented in this encounter [facility] note* Diagnosis DKA (diabetic ketoacidosis)- Primary Type [...] 2 diabetes mellitus documented in this encounter [facility] note* Diagnosis Acute sinusitis, recurrence not specified, unspecified location- Primary documented in this encounter [employer] Phone: evalehwsyk note* Diagnosis Acute midline low back pain without sciatica- Primary documented in this encounter [facility] note* Diagnosis Pain in thoracic spine documented in this encounter [facility] note* Diagnosis Strain of thoracic back region- Primary documented in this encounter [facility] note* Diagnosis Hypotension due to hypovolemia- Primary Tachycardia Tachycardia, unspecified documented in this encounter [facility] note* Diagnosis Tachycardia Tachycardia, unspecified documented in this encounter [facility] note* Diagnosis Generalized abdominal pain Abdominal pain, generalized documented in this encounter [facility] note* Diagnosis Tachycardia- Primary Tachycardia, unspecified Dehydration documented in this encounter [facility] note* Diagnosis Dehydration- Primary Hyperglycemia due to diabetes mellitus (HCC) documented in this encounter [facility] note* Diagnosis Tachycardia- Primary Tachycardia, unspecified Mid back pain Backache, unspecified documented in this encounter [facility] note Includes: Assessments for all patient encounters Findings Encounter Date [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 Medical Established Patient with Sally Miles JEWELRY CASTING MODEL MAKER 09/19/2024 Last Documented On 1:29PM ; [facility] Assessment of body mass index Medical Es tablished Patient with Sally Miles JEWELRY CASTING MODEL MAKER 09/19/2024 Last Documented On 1:29PM ; [facility] Body mass index Medical Established Patient with Sallyflorecita Perkinsen JEWELRY CASTING MODEL MAKER 09/19/2024 Last Documented On 1:29PM ; [facility] Type 2 diabetes mellitus Medical Established Pat ient with Sally Miles JEWELRY CASTING MODEL MAKER 09/19/2024 Last Documented On 1:29PM ; [facility] Type 2 diabetes mellitus Medical Established Pat ient with Sally Ginger JEWELRY CASTING MODEL MAKER 09/19/2024 Last Documented On 1:29PM ; [facility] [Body mass index [BMI] 28.0- 28.9, adult] assessment of body mass index Open Access - Established with Kavita Hardeep JEWELRY CASTING MODEL MAKER 09/02/2024 Last Documented On 2:11PM ; [facility] Assessment of pain in the th oracic spine Open Access - Established with Kavita Hardeep JEWELRY CASTING MODEL MAKER 09/02/2024 Last Documented On 2:11PM ; [facility] Type 2 diabetes mellitus Open Access - Establish ed with Kavita Hardeep JEWELRY CASTING MODEL MAKER 09/02/2024 Last Documented On 2:11PM ; [facility] [Body mass index [BMI] 28.0- 28.9, adult] assessment of body mass index Open Access - Established with Kavita Hardeep JEWELRY CASTING MODEL MAKER 08/21/2024 Last Documented On 5 5:18PM ; [facility] Type 2 diabetes mellitus Open Access - Establish ed with Kavita Hardeep JEWELRY CASTING MODEL MAKER 08/21/2024 Last Documented On 5:18PM ; [facility] [Body mass index [BMI] 28.0- 28.9, adult] assessment of body mass index Medical Established Patient with Kavita Hardeep JEWELRY CASTING MODEL MAKER 08/08/2024 Last Documented On 4:23PM ; [facility] Type 2 diabetes mellitus Medical Established Pat ient with Kavita Hardeep JEWELRY CASTING MODEL MAKER 08/08/2024 Last Documented On 5 4:23PM ; [facility] [Body mass index [BMI] 30.0- 30.9, adult] assessment of body mass index Medical Established Patient with Kavita Hardeep JEWELRY CASTING MODEL MAKER 07/04/2024 Last Documented On 4 8:14AM ; [facility] Type 2 diabetes mellitus Medical Established Pat ient with Kavita Hardeep JEWELRY CASTING MODEL MAKER 07/04/2024 Last Documented On 4 8:14AM ; [facility] [Body mass index [BMI] 28.0- 28.9, adult] assessment of body mass index Open Access - Established with Kavita Hardeep JEWELRY CASTING MODEL MAKER 06/06/2024 Last Documented On 4 11:06AM ; [facility] Venipuncture was performed Open Access - Establi shed with Kavita Hardeep JEWELRY CASTING MODEL MAKER 06/06/2024 Last Documented On 4 11:06AM ; [facility] Assessment of body mass inde x [Body mass index [BMI] 31.0-31.9, adult] Medical Established Patient with Kavita Hardeep JEWELRY CASTING MODEL MAKER 06/02/2021 Last Documented On 1 5:19PM ; [facility] Type 2 diabetes mellitus Medical Established Pat ient with Kavita Hardeep JEWELRY CASTING MODEL MAKER 06/02/2021 Last Documented On 1 5:19PM ; [facility] Assessment of body mass inde x [Body mass index [BMI] 31.0-31.9, adult] Medical Established Patient with Kavita Hardeep JEWELRY CASTING MODEL MAKER 05/18/2021 Last Documented On 1 5:34PM ; [facility] Assessment of body mass inde x [Body mass index [BMI] 29.0-29.9, adult] Medical New Patient with Kavita Hardeep JEWELRY CASTING MODEL MAKER 04/21/2021 Last Documented On 1 12:10PM ; [facility] Type 2 diabetes mellitus Medical New Patient wit h Kavita Hardeep JEWELRY CASTING MODEL MAKER 04/21/2021 Last Documented On 1 12:10PM ; [facility] Work Phone: Evaluation note* Diagnosis Strain of lumbar region, initial encounter- Primary documented in this encounter [facility] note* Diagnosis Tachycardia- Primary Tachycardia, unspecified Mixed hyperlipidemia Nonrheumatic aortic valve stenosis Aortic valve disorders Bicuspid aortic valve Congenital insufficiency of aortic valve Uncontrolled type 2 diabetes mellitus with hyperglycemia (HCC) Abnormal EKG Nonspecific abnormal electrocardiogram (ECG) (EKG) Heart murmur Undiagnosed cardiac murmurs Chronic pain syndrome Tachycardia Tachycardia, unspecified Abnormal EKG Nonspecific abnormal electrocardiogram (ECG) (EKG) Heart murmur Undiagnosed cardiac murmurs documented in this encounter [facility] note* Diagnosis Tachycardia- Primary Tachycardia, unspecified Mixed hyperlipidemia Nonrheumatic aortic valve stenosis Aortic valve disorders Bicuspid aortic valve Congenital insufficiency of aortic valve Uncontrolled type 2 diabetes mellitus with hyperglycemia (HCC) Abnormal EKG Nonspecific abnormal electrocardiogram (ECG) (EKG) Heart murmur Undiagnosed cardiac murmurs Chronic pain syndrome Lumbar back pain Lumbago Spondylolisthesis of thoracic region Acquired spondylolisthesis documented in this encounter [facility] note* Diagnosis Tachycardia- Primary Tachycardia, unspecified Mixed hyperlipidemia Nonrheumatic aortic valve stenosis Aortic valve disorders Bicuspid aortic valve Congenital insufficiency of aortic valve Uncontrolled type 2 diabetes mellitus with hyperglycemia (HCC) Abnormal EKG Nonspecific abnormal electrocardiogram (ECG) (EKG) Heart murmur Undiagnosed cardiac murmurs Chronic pain syndrome Dehydration- Primary Nausea and vomiting, unspecified vomiting type [facility] N[facility] History of Present Illness not supported for this document type No History of [facility]ed[facility] Phone: Hospital Discharge instructions* Attachments The following attachments cannot be sent through Care Everywhere. * Sinusitis (Thai) [facility] Discharge instructions* Attachments The following attachments cannot be sent through Care Everywhere. * Back: Preventing Injuries (Thai) * Low Back Pain: Exercises (Thai) [facility]* Attachments The following attachments cannot be sent through Care Everywhere. * Cardiac Arrhythmia (Thai) * Oral Rehydration (Thai) [facility]* Attachments The following attachments cannot be sent through Care Everywhere. * Dehydration (Thai) * Diabetes: Type 2: General Info (Thai) [facility]* Attachments The following attachments cannot be sent through Care Everywhere. * Back Pain (Thai) [facility]* Attachments The following attachments cannot be sent through Care Everywhere. * Back: Strain (Thai) [facility]* Attachments The following attachments cannot be sent through Care Everywhere. * Nausea and Vomiting (Thai) [facility]ructions Instructions not supported for this document type No Instructions [facility] Work Phone: Patient problem outcome Narrative Includes: Evaluations & Outcomes for active Goals No Outcomes [facility] Work Phone: Reason for referral (narrative)No Reason for Referral [facility] Work Phone: Reason for visit Narrative* Imaging (Routine) - Closed Specialty Diagnoses / Procedures Referred By Contac t Referred To Contact Cardiology Diagnoses Tachycardia Abnormal EKG Heart murmur Procedures Echo (TTE) complete (PRN contrast/bubble/strain/3D) NJ ECHO TTHRC R-T 2D W/WOM-MODE COMPL SPEC&COLR D [place] TTE W OR WO FOL WCON,DOPPLER Javier Branham DO [address] [place] [address] Phone: tel: fax: Referral ID Status Reason Start Date Expiration Date Visits Re quested Visits Authorized [id number] Closed 10/08/2024 12/07/2024 1 1 [facility] for visit Narrative* Imaging (Routine) - Closed Specialty Diagnoses / Procedures Referred By Contac t Referred To Contact Radiology Diagnoses Lumbar back pain Spondylolisthesis of thoracic region Procedures MRI LUMBAR SPINE WO CONTRAST Juan Gerber PA [facility] [place] [address] Phone: tel: fax: Referral ID Status Reason Start Date Expiration Date Visits Re quested Visits Authorized [id number] Closed 11/27/2024 11/27/2025 1 1 [facility] N[facility]ative - Reported Review of Systems not supported for this document type No Review of Systems [facility] Work Phone: Assessments Diagnosis Renal colic Diagnosis Renal colic Advance Directives Includes: Current Advance Directives No Advance Directives Recorded Documents on File Type Date Recorded Patient Kiln Operator Helper Expl anation Advance Directives and Living Will Power of Client Services Associate Latest Code Status on File Code Status Date Activated Date Inactivated Comments Full Code 04/21/2016 9:39 AM 04/21/2016 12:42 PM Full Code 04/21/2016 7:07 AM 04/21/2016 9:39 AM Documents on File Type Date Recorded Patient Kiln Operator Helper Expl anation Advance Directives and Living Will Power of Client Services Associate Latest Code Status on File Code Status Date Activated Date Inactivated Comments Full Code 04/21/2016 9:39 AM 04/21/2016 12:42 PM Full Code 04/21/2016 7:07 AM 04/21/2016 9:39 AM Documents on File Type Date Recorded Patient Kiln Operator Helper Expl anation ACP-Advance Directive ACP-Power of Client Services Associate Latest Code Status on File Code Status Date Activated Date Inactivated Comments Full Code 04/13/2021 10:12 PM Full Code 04/21/2016 9:39 AM 04/21/2016 12:42 PM Healthcare Agents on File Name Relationship Healthcare Agent Relationshi p Communication Kong Gonzalez Child Primary Decision Maker Documents on File Type Date Recorded Patient Kiln Operator Helper Expl anation ACP-Advance Directive ACP-Power of Client Services Associate Latest Code Status on File Code Status [...] Communication Kong Gonzalez Child Primary Decision Maker Date Activated Date Inactivated Comments 04/13/2021 10:12 PM 04/16/2021 12:23 PM Date Activated Date Inactivated Comments 04/21/2016 9:39 AM 04/21/2016 12:42 PM Date Activated Date Inactivated Comments 04/21/2016 7:07 [...] Relationship Healthcare Agent Relationshi p Communication Call John Child Primary Decision Maker Healthcare Agents on File Name Relationship Healthcare Agent Relationshi p Communication Call John Child Primary Decision Maker Date Activated Date Inactivated Comments 04/13/2021 10:12 PM 04/16/2021 12:23 PM Date Activated Date Inactivated Comments 04/21/2016 9:39 AM 04/21/2016 12:42 PM Date Activated Date Inactivated Comments 04/21/2016 7:07 AM 04/21/2016 9:39 AM Healthcare Agents on File Name Relationship Healthcare Agent Relationshi p Communication Call Dont Child Primary Decision Maker Healthcare Agents on File Name Relationship Healthcare Agent Relationshi p Communication Call Dont Child Primary Decision Maker Healthcare Agents on File Name Relationship Healthcare Agent Relationshi p Communication Call Dont Child Primary Decision Maker Healthcare Agents on File Name Relationship Healthcare Agent Relationshi p Communication Call Dont Child Primary Decision Maker Healthcare Agents on File Name Relationship Healthcare Agent Relationshi p Communication Call Dont Child Primary Decision Maker Healthcare Agents on File Name Relationship Healthcare Agent Relationshi p Communication Call Dont Child Primary Decision Maker Healthcare Agents on File Name Relationship Healthcare Agent Relationshi p Communication Call Dont Child Primary Decision Maker Healthcare Agents on File Name Relationship Healthcare Agent Relationshi p Communication Call Dont Child Primary Decision Maker Healthcare Agents on File Name Relationship Healthcare Agent Relationshi p Communication Call Dont Child Primary Decision Maker Healthcare Agents on File Name Relationship Healthcare Agent Relationshi p Communication Call Dont Child Primary Decision Maker Healthcare Agents on File Name Relationship Healthcare Agent Relationshi p Communication Call Dont Child Primary Decision Maker Reason for Referral Status Reason Specialty Diagnoses / Procedures Referred By Contact Referred To Contact Pending Review Radiology Diagnoses Renal colic Procedures CT ABDOMEN PELVIS WO CONTRAST Additional Contrast? None Rosangela Gongora, PATIENT TRANSPORT OFFICER - JEWELRY CASTING MODEL MAKER [address] [facility] [address] [place] [address] [facility] [address] [place] [address] Status Reason Specialty Diagnoses / Procedures Referred By Contact Referred To Contact Open Specialty Services Required Urology Diagnoses Nephrolithiasis Roverto Barbour MD [address] [place] [address] Mason Monterroso MD [address] [facility], [address] [place] [address] Scheduling Instructions [facility] - Mason Monterroso MD [address] [place] [address] Specialty Diagnoses / Procedures Referred By Contac t Referred To Contact Procedures INPATIENT ADMISSION NOTIFICATION Cecilio Saucedo MD [address] [place] [address] Referral ID Status Reason Start Date Expiration Date V isits Requested Visits Authorized [id number] New Request 06/21/2022 07/16/2023 1 1 Specialty Diagnoses / Procedures Referred By Contac t Referred To Contact Procedures ECG Irvin Magana MD [address] [place] [address] Referral ID Status Reason Start Date Expiration Date V isits Requested Visits Authorized [id number] New Request 06/21/2022 07/16/2023 1 1 Specialty Diagnoses / Procedures Referred By Contac t Referred To Contact Cardiology Diagnoses Tachycardia Procedures Extended cardiac holter monitor (3 days-14 day) NJ EXTERNAL ECG REC>48HR<7D REVIEW & INTERPRETATION [place] EXTERNAL ECG REC>48HR<7D RECORDING [place] EXTERNAL ECG REC>7D<15D RECORDING [place] EXTERNAL ECG REC>7D<15D REVIEW & INTERPRETATION Ame Saldana, [address] [place] [address] Referral ID Status Reason Start Date Expiration Date Visits Re quested Visits Authorized [id number] Closed 08/22/2024 08/22/2025 1 1 Family History Description Last Updated Maternal history of endocrine disorder 1 Maternal history of type 2 diabetes marleen itus 04/21/2021 Paternal history of endocrine disorder 1 Paternal history of type 2 diabetes marleen itus 04/21/2021 Description Last Updated Maternal history of endocrine disorder 1 Last Documented On 12:10PM ; [facility] Maternal history of type 2 diabetes marleen itus 04/21/2021 Paternal history of endocrine disorder 1 Paternal history of type 2 diabetes marleen itus 04/21/2021 Description Last Updated Maternal history of endocrine disorder 1 Last Documented On 1 12:10PM ; [facility] Maternal history of type 2 diabetes marleen itus 04/21/2021 Paternal history of endocrine disorder 1 Paternal history of type 2 diabetes marleen itus 04/21/2021 Description Last Updated Maternal history of endocrine disorder 1 Last Documented On 1 12:10PM ; [facility] Maternal history of type 2 diabetes marleen itus 04/21/2021 Paternal history of endocrine disorder 1 Paternal history of type 2 diabetes marleen itus 04/21/2021 Description Last Updated Maternal history of endocrine disorder 1 Last Documented On 1 12:10PM ; [facility] Maternal history of type 2 diabetes marleen itus 04/21/2021 Paternal history of endocrine disorder 1 Paternal history of type 2 diabetes marleen itus 04/21/2021 Description Last Updated Maternal history of endocrine disorder 1 Last Documented On 1 12:10PM ; [facility] Maternal history of type 2 diabetes marleen itus 04/21/2021 Paternal history of endocrine disorder 1 Paternal history of type 2 diabetes marleen itus 04/21/2021 Description Last Updated Maternal history of endocrine disorder 1 Last Documented On 1 12:10PM ; [facility] Maternal history of type 2 diabetes marleen itus 04/21/2021 Paternal history of endocrine disorder 1 Paternal history of type 2 diabetes marleen itus 04/21/2021 Description Last Updated Maternal history of endocrine disorder 1 Last Documented On 1 12:10PM ; [facility] Maternal history of type 2 diabetes marleen itus 04/21/2021 Paternal history of endocrine disorder 1 Paternal history of type 2 diabetes marleen itus 04/21/2021 Description Last Updated Maternal history of endocrine disorder 1 Last Documented On 1 12:10PM ; [facility] Maternal history of type 2 diabetes marleen itus 04/21/2021 Paternal history of endocrine disorder 1 Paternal history of type 2 diabetes marleen itus 04/21/2021 Description Last Updated Maternal history of endocrine disorder 1 Last Documented On 1 12:10PM ; [facility] Maternal history of type 2 diabetes marleen itus 04/21/2021 Paternal history of endocrine disorder 1 Paternal history of type 2 diabetes marleen itus 04/21/2021 Description Last Updated Maternal history of endocrine disorder 1 Last Documented On 1 12:10PM ; [facility] Maternal history of type 2 diabetes marleen itus 04/21/2021 Paternal history of endocrine disorder 1 Paternal history of type 2 diabetes marleen itus 04/21/2021 Description Last Updated Maternal history of endocrine disorder 1 Last Documented On 1 12:10PM ; [facility] Maternal history of type 2 diabetes marleen itus 04/21/2021 Paternal history of endocrine disorder 1 Paternal history of type 2 diabetes marleen itus 04/21/2021 Description Last Updated Maternal history of endocrine disorder 1 Last Documented On 1 12:10PM ; [facility] Maternal history of type 2 diabetes marleen itus 04/21/2021 Paternal history of endocrine disorder 1 Paternal history of type 2 diabetes marleen itus 04/21/2021 Description Last Updated Maternal history of endocrine disorder 1 Last Documented On 1 12:10PM ; [facility] Maternal history of type 2 diabetes marleen itus 04/21/2021 Paternal history of endocrine disorder 1 Paternal history of type 2 diabetes marleen itus 04/21/2021 Description Last Updated Maternal history of endocrine disorder 1 Last Documented On 1 12:10PM ; [facility] Maternal history of type 2 diabetes marleen itus 04/21/2021 Paternal history of endocrine disorder 1 Paternal history of type 2 diabetes marleen itus 04/21/2021 Physical Exam Physical Exam not supported for [...] this document type No Physical Exam Recorded Summary Purpose Additional Source Comments Reason for Visit (unrecogniz ed section and content) Status Reason Specialty Diagnoses / Procedures Referred By Contact Referred To Contact Pending Review Radiology Diagnoses Renal colic Procedures CT ABDOMEN PELVIS WO CONTRAST Additional Contrast? None Rosangela Gongora, PATIENT TRANSPORT OFFICER - JEWELRY CASTING MODEL MAKER [address] [facility] [address] [id number] [place] [address] Reason Comments Flank Pain Left side flank pain for past 2 weeks. Status Reason Specialty Diagnoses / Procedures Referre d By Contact Referred To Contact Diagnoses Diabetic ketoacidosis without coma associated with type 2 diabetes mellitus (HCC) Diabetic ketoacidosis without coma associated with diabetes mellitus due to underlying condition (HCC) Roverto Barbour MD [address] [place] [address] [facility] Reason Comments Diabetes 3-4 week diabetic fo llow up, personal titus Reason Comments Follow-up Diabetes Reason Comments Diabetes Reason Comments Dizziness Fatigue Patient to the ED fo r c/o dizziness and weakness since Monday. States she hasn't been eating and she is a diabetic. BS was 376. Specialty Diagnoses / Procedures Referred By Contac t Referred To Contact Diagnoses Diabetic ketoacidosis without coma associated with type 2 diabetes mellitus Cecilio Saucedo MD [address] [place] [address] [facility] Referral ID Status Reason Start Date Expiration Date Visits Re quested Visits Authorized [id number] 1 1 Reason Comments Cough Patient complaint of cough and sinus drainage for 2 weeks. Sent by walk in Reason Comments Back Pain Left lower back pain rated 8/10. Onset May 2024. Currently seeing two different chiropractors for same pain. Reason Comments Back Pain Patient reports back pain since June that has been gradually worsening. No known injury. Has appt. with ortho doc on 08/23. Reason Comments Hypotension Pt was advised to co me to ER from PCP office d/t hypotension and tachycardia. Patient states while she was at office she felt dizzy but believes it was because of taking muscle relaxer around 1330 when she typically takes it at night. She currently denies lightheadedness /dizziness / SOB/Palpitations. Specialty Diagnoses / Procedures Referred By Contac t Referred To Contact Cardiology Diagnoses Tachycardia Procedures Extended cardiac holter monitor (3 days-14 day) NJ EXTERNAL ECG REC>48HR<7D REVIEW & INTERPRETATION NJ EXTERNAL ECG REC>48HR<7D RECORDING [place] EXTERNAL ECG REC>7D<15D RECORDING [place] EXTERNAL ECG REC>7D<15D REVIEW & INTERPRETATION Ame Saldana, DO [address] [place] [address] Referral ID Status Reason Start Date Expiration Date Visits Re quested Visits Authorized [id number] Closed 08/22/2024 08/22/2025 1 1 Specialty Diagnoses / Procedures Referred By Contac t Referred To Contact Radiology Diagnoses Generalized abdominal pain Procedures US RENAL COMPLETE US RETROPERITONEAL COMPLETE Kavita Qureshi, PATIENT TRANSPORT OFFICER - DOUBLE HEAD 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 [address] [place] [address] Referral ID Status Reason Start Date Expiration Date Visits Re quested Visits Authorized [id number] Open 08/19/2024 08/19/2025 1 1 Reason Comments Irregular Heart Beat Pt. Reports set by Kavita Qureshi NP for elevated HR. Pt. States just turned in holter monitor today Reason Comments Illness Pt reports she feels weak and dehydrated. Reports she was in [place] ED on Monday and they wanted to admit her but she refused admission. Reason Comments Back Pain C/o pain to her left side of her back. States this has been ongoing since June but the pain is still unmanaged. OTHER Patient states chris rn for high heart rate, decreased appetite, nausea, and fatigue. Reason Comments Back Pain Left sided lower patience k pain worsening yesterday after seeing the chiropractor. Reason Comments Dehydration Pt states she feels dehydrated, lightheaded, dizzy, nauseated and no appetite. States its been going on since beginning of January and not getting any better. Ordered Prescriptions (unrec ognized section and content) [...] 7 days 14 tablet 0 07/05/2022 07/12/2022 Prescription Sig Dispensed Refills Start Date End Da te HYDROcodone-acetaminophe n (NORCO) 5-325 MG per tabletIndications:Acute midline low back pain without sciatica Take 1 tablet by mouth every 8 hours as needed for Pain for up to 3 days. Intended supply: 3 days. Take lowest dose possible to manage pain Max Daily Amount: 3 tablets 6 tablet 08/04/2024 08/07/2024 ibuprofen (IBU) 600 MG tablet Take 1 tablet by mouth every 6 hours as needed for Pain 30 tablet 08/04/2024 cyclobenzaprine (FLEXERIL) 10 MG tablet Take 1 tablet by mouth 3 times daily as needed for Muscle spasms 15 tablet 08/04/2024 08/14/2024 predniSONE (DELTASONE) 20 MG tablet Take 3 tablets by mouth daily for 5 days 15 tablet 08/04/2024 08/09/2024 Prescription Sig Dispensed Refills Start Date End Da te metoprolol succinate (TOPROL XL) 25 MG extended release tablet Take 1 tablet by mouth daily 30 tablet 09/09/2024 Prescription Sig Dispense Quantity Refills Last Filled Start Date End Date lidocaine 4 % external patch Place 1 patch onto the skin daily 30 patch 09/29/2024 10/29/2024 naproxen (NAPROSYN) 375 MG tablet Take 1 tablet by mouth 2 times daily (with meals) 30 tablet 1 09/29/2024 cyclobenzaprine (FLEXERIL) 10 MG tablet Take 1 tablet by mouth 3 times daily as needed for Muscle spasms 10 tablet 09/29/2024 Prescription Sig Dispense Quantity Refills Last Filled Start Date End Date ondansetron (ZOFRAN-ODT) 4 MG disintegrating tablet Take 1 tablet by mouth 3 times daily as needed for Nausea or Vomiting 21 tablet 02/26/2025 Scheduled Active and Recently Administ ered Medications (unrecognized section and content) Medication Order 04/14/2021 04/15/2021 04/16/2021 aspirin EC tablet 81 mg 81 mg, Oral, DAILY, First dose on Mon04/14/21 at 0900, Do not crush or break. 0921 (Given - Provider: Juan Salamanca RN) 0803 (Given - Provider: Maria Guadalupe Wolfe RN) 0817 (Given - Provider: Angelika Bunch, YARELI) enoxaparin (LOVENOX) injection 40 mg 40 mg, SubCUTAneous, DAILY, First dose on Mon04/14/21 at 0900 0922 (Given - Provider: Juan Salamanca RN) 0803 (Given - Provider: Maria Guadalupe Wolfe RN) 0816 (Given - Provider: Angelika Bunch RN) insulin glargine (LANTUS) injection vial 20 Units (CANCELED) 20 Units, SubCUTAneous, DAILY BEFORE BREAKFAST, First dose on Siria 04/15/21 at 0700 0637 (Given - Provider: Nesha Perez RN) 0624 (Given - Provider: Nesha Perez RN) insulin glargine (LANTUS) injection vial 30 Units 30 Units, SubCUTAneous, DAILY BEFORE BREAKFAST, First dose (after last modification) on Mon04/17/21 at 0700 insulin glargine (LANTUS) injection vial 40 Units (CANCELED) 40 Units, SubCUTAneous, NIGHTLY, First dose on Mon04/14/21 at 1945 2127 (Given - Provider: Nesha Perez RN) 2028 (Given - Provider: Juan Salamanca RN) insulin glargine (LANTUS) injection vial 50 Units [...] 10 Units 400 and above 12 Units 1956 (Not Given - Provider: Nesha Perez RN - Reason: Other - Comment: just d/c'd insulin gtt) 0802 (Given - Provider: Maria Guadalupe Wolfe RN - Comment: [phone] (Given - Provider: Juan Salamanca RN) insulin lispro (HUMALOG) injection vial 0-18 Units [...] 5 Units 400 and above 6 Units 2130 (Given - Provider: Nesha Perez RN - [...] 7 Units 400 and above 9 Units 2030 (Given - Provider: Juan Salamanca RN) 2100 (Due) lidocaine 4 % external patch 1 patch 1 patch, TransDERmal, Administer over 12 Hours, DAILY, First dose on Mon04/14/21 at 0515, Apply patch to Left sacroiliac area. Patch may remain in place for up to 12 hours in any 24 hour period. 0608 (Patch Applied - Provider: Vidhya Reyes RN)1815 (Patch Removed - Provider: Juan Salamanca RN) 08 (Patch Applied - Provider: Maria Guadalupe Wolfe RN)2031 (Patch Removed - Provider: Juan Salamanca RN) 0816 (Patch Applied - Provider: Angelika Bunch, YARELI)2015 [...] 1 dose, Do not crush or break. 1653 (Given - Provider: Juan Salamanca, YARELI) potassium chloride (KLOR-CON) extended release tablet 40 mEq (COMPLETED) 40 mEq, Oral, ONCE, On Mon04/16/21 at 0630, For 1 dose, Do not crush or break. 0622 (Given - Provider: Nesha Perez RN) vitamin B-6 (PYRIDOXINE) tablet 50 mg 50 mg, Oral, DAILY, First dose on Mon04/14/21 at 0900 0921 (Given - Provider: Juan Salamanca RN) 0803 (Given - Provider: Maria Guadalupe Wolfe, RN) 0817 (Given - Provider: Angelika Bunch, YARELI) Vitamin D (CHOLECALCIFEROL) tablet 2,000 Units 2,000 Units, Oral, DAILY, First dose on Mon04/14/21 at 0900 0921 (Given - Provider: Juan Salamanca RN) 0803 (Given - Provider: Maria Guadalupe Wolfe, RN) 0817 (Given - Provider: Angelika Bunch, YARELI) Continuous Medication Order 04/14/2021 04/15/2021 04/16/2021 0.9% NaCl with KCl 20 mEq infusion (CANCELED) IntraVENous, at 100 mL/hr, CONTINUOUS, Starting on Mon04/14/21 at 1745 1734 (New Bag - Provider: Juan Salamanca RN)1957 (Stopped - Provider: Nesha Perez RN) 0.9% NaCl with KCl 20 mEq infusion (CANCELED) IntraVENous, at 75 mL/hr, CONTINUOUS, Starting on Mon04/14/21 at 1945 1956 (New Bag - Provider: Nesha Perez RN) 0639 (Stopped - Provider: Nesha Perez RN) dextrose 5 % and 0.45 % sodium chloride infusion (CANCELED) IntraVENous, at 100 mL/hr, CONTINUOUS, Starting on Mon04/13/21 at 2330 0908 (Stopped - Provider: Juan Salamanca RN)0922 (Rate/Dose Change - Provider: Juan Salamanca RN)1004 [...] Salamanca RN)0937 (New Bag - Provider: Juan Salamanca RN)1145 (Rate/Dose Change - Provider: Wendy Rogers RN)1655 (Rate/Dose Change - Provider: Juan Salamanca, RN)1742 (New Bag - Provider: Juan Salamanca, RN)1846 (Rate/Dose Change - Provider: Juan Salamanca, RN)1928 (Rate/Dose Change - Provider: Juan Salamanca RN)1932 (Stopped - Provider: Juan Salamanca RN) PRN [...] ALERT or NPO., Starting on Mon04/14/21 at 1927, If patient does not respond within 5 [...] have IV access., Starting on Mon04/14/21 at 1927, After administration, attempt intravenous access and start D5W at 100 mL/hr. Repeat blood glucose in 15 minutes x2 and notify provider. glucose (GLUTOSE) 40 % oral gel 15 g 15 g, Oral, PRN, Low blood sugar, Starting on Mon04/14/21 at 1927, If blood glucose less than 50 mg/dL [...] Reyes RN)0424 (New Bag - Provider: Vidhya Reyes RN)0549 (New Bag - Provider: Vidhya Reyes RN)0652 (New Bag - Provider: Vidhya Reyes RN)1004 (New Bag - Provider: Juan Salamanca RN)1110 (New Bag - Provider: Juan Salamanca, RN)1251 (New Bag - Provider: Juan Salamanca, RN)1409 (New Bag - Provider: Juan Salamanca, RN)1519 (New Bag - Provider: Juan Salamanca, RN)1643 (New Bag - Provider: Juan Salamanca, RN)1815 (New Bag - Provider: Juan Salamanca RN) sodium phosphate 15 mmol in dextrose 5 [...] hours 1447 (New Bag - Provider: Juan Salamanca RN)1958 (Stopped - Provider: Nesha Perez RN) No [...] to the hypoglycemia management protocol on Ell: [facility] Management Protocol Insulin regular (HUMULIN R;NOVOLIN R) [...] RN)2019 (Rate/Dose Change - Provider: Abbie Gibson, RN)2114 (Rate/Dose Change - Provider: Abbie Gibson, RN)221 (Rate/Dose Change - Provider: Abbie Gibson, RN)2311 (Rate/Dose Change - Provider: Abbie Gibson, RN) 0018 (Rate/Dose Change - Provider: Abbie Gibson, RN)0117 (Rate/Dose Verify - Provider: Abbie Gibson, RN)0222 (Rate/Dose Verify - Provider: Kwaku Tubbs RN)0323 (Rate/Dose Change - Provider: Abbie Gibson, RN)0420 (Rate/Dose Verify - Provider: Abbie Gibson RN)0527 (Rate/Dose Verify - Provider: Abbie Gibson RN)0629 (Rate/Dose Change - Provider: Abbie Gibson RN)0733 (Rate/Dose Verify - Provider: Alison Doherty RN)0839 (Rate/Dose Verify - Provider: Alison Doherty RN)0930 (Rate/Dose Verify - Provider: Alison Doherty RN)1055 (Stopped - Provider: Alison Doherty RN) sodium chloride 0.9% IV solution Intravenous, at 150 mL/hr, CONTINUOUS, Starting on Mon06/21/22 at 1730, Until Mon06/22/22 at 0529 192 ($$New Bag$$ - Provider: Abbie Gibson RN)2044 (Rate/Dose Change - Provider: Abbie Gibson RN)2134 (Stopped - Provider: Abbie Gibson RN - [...] less than 60 mg/ml. If unresponsive call BUSINESS SUPPORT MANAGER ondansetron 4mg/2ml (ZOFRAN) injection 4 mg 4 [...] to the hypoglycemia management protocol on [facility]: G-OC-[id number] Management Protocol
And dextrose 10% IV solution [...] less than 60 mg/ml. If unresponsive call BUSINESS SUPPORT MANAGER
And NOTIFY PHYSICIAN, Blood Glucose LESS THAN 70 mg/dl or greater than 400 mg/dl (CANCELED) Routine, CONTINUOUS, Starting on Mon06/22/22 at 1046, Until Specified
Who to Notify: DOUBLE HEAD 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/Physician
For all Blood Glucose LESS THAN 70 mg/dl, or greater than 400 mg/dl notify DOUBLE HEAD 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/Physician Scheduled Medication Order 07/03/2022 07/04/2022 07/05/2022 0.9 % sodium chloride bolus (COMPLETED) 1,000 mL (11.3 mL/kg), IntraVENous, at 495.9 mL/hr, Administer over 121 Minutes, ONCE, On Mon07/05/22 at 0945, For 1 dose 0948 (New Bag - Prov ider: Max Pisano RN)1049 (Stopped - Provider: Sparkle Rudd RN) Scheduled Medication Order 08/02/2024 08/03/2024 08/04/2024 dexAMETHasone (DECADRON) Oral 10 mg (COMPLETED) 10 mg, Oral, ONCE, On 08/04/24 at 1100, For 1 dose 1108 (Given - Provid er: Deondre Leo RN) ketorolac (TORADOL) injection 60 mg (COMPLETED) 60 mg, IntraMUSCular, ONCE, 1 dose, On 08/04/24 at 1100, Do not administer for more than 5 days. 1110 (Given - Provid er: Deondre Leo, RN) ondansetron (ZOFRAN-ODT) disintegrating tablet 4 mg (COMPLETED) 4 mg, Oral, ONCE, 1 dose, On 08/04/24 at 1100 1108 (Given - Provid er: Deondre Leo RN) orphenadrine (NORFLEX) injection 60 mg (COMPLETED) 60 mg, IntraMUSCular, ONCE, 1 dose, On 08/04/24 at 1100 1114 (Given - Provid er: Deondre Leo RN) Scheduled Medication Order 08/15/2024 08/16/2024 08/17/2024 ketorolac (TORADOL) injection 30 mg (COMPLETED) 30 mg, IntraMUSCular, ONCE, 1 dose, On 08/17/24 at 1045, Do not administer for more than 5 days. 1045 (Given - Provid er: Misa Reed RN) Scheduled Medication Order 08/19/2024 08/20/2024 08/21/2024 sodium chloride 0.9 % bolus 1,000 mL (COMPLETED) 1,000 mL (12 mL/kg), IntraVENous, at 2,000 mL/hr, Administer over 0.5 Hours, ONCE, On Mon08/21/24 at 1845, For 1 dose 183 (New Bag - Prov ider: Geneva Velez RN)1935 (Stopped - Provider: Geneva Velez RN) sodium chloride 0.9 % bolus 1,000 mL (COMPLETED) 1,000 mL (12 mL/kg), IntraVENous, at 983.6 mL/hr, Administer over 61 Minutes, ONCE, On 08/21/24 at 1945, For 1 dose, For adult patients weighing > 55 kg (120 lbs.) and less than <50 years of age initiate 0.9NS at 500 mL/ hr. All bolus orders are to be given over 10 to 15 minutes 1942 (New Bag - Prov ider: Geneva Velez RN)2035 (Stopped - Provider: Geneva Veelz RN) sodium chloride 0.9 % bolus 500 mL (COMPLETED) 500 mL (5.99 mL/kg), IntraVENous, at 967.7 mL/hr, Administer over 31 Minutes, ONCE, On Mon08/21/24 at 2100, For 1 dose, For adult patients weighing > 55 kg (120 lbs.) and less than <50 years of age initiate 0.9NS at 500 mL/ hr. All bolus orders are to be given over 10 to 15 minutes 2053 (New Bag - Prov ider: Geneva Velez, RN)2134 (Stopped - Provider: Geneva Velez RN) Scheduled Medication Order 08/31/2024 09/01/2024 09/02/2024 sodium chloride 0.9 % bolus 1,000 mL (COMPLETED) 1,000 mL (12.5 mL/kg), IntraVENous, at 1,000 mL/hr, Administer over 1 Hours, ONCE, On Mon09/02/24 at 1500, For 1 dose 1519 (New Bag - Prov ider: Genvea Demarco RN)1617 (Stopped - Provider: Goldie Starkey RN) sodium chloride 0.9 % bolus 1,000 mL (COMPLETED) 1,000 mL (12.5 mL/kg), IntraVENous, at 1,000 mL/hr, Administer over 1 Hours, ONCE, On Mon09/02/24 at 1715, For 1 dose 1722 (New Bag - Prov ider: Tali Ratliff RN)2000 (Stopped - Provider: Goldie Starkey RN) sodium chloride 0.9 % bolus 1,000 mL (COMPLETED) 1,000 mL (12.5 mL/kg), IntraVENous, at 1,000 mL/hr, Administer over 1 Hours, ONCE, On Mon09/02/24 at 1845, For 1 dose 1840 (New Bag - Prov ider: Gladis Baird RN)2000 (Stopped - Provider: Goldie Starkey RN) Scheduled Medication Order 09/02/2024 09/03/2024 09/04/2024 sodium chloride 0.9 % bolus 1,000 mL (COMPLETED) 1,000 mL (12.3 mL/kg), IntraVENous, at 1,000 mL/hr, Administer over 1 Hours, ONCE, On Mon09/04/24 at 0845, For 1 dose, For IV Hydration 0849 (New Bag - Prov ider: Nelly Reeves RN)0950 (Stopped - Provider: Nelly Reeves RN) sodium chloride 0.9 % bolus 1,000 mL (COMPLETED) 1,000 mL (12.3 mL/kg), IntraVENous, at 1,000 mL/hr, Administer over 1 Hours, ONCE, On Mon09/04/24 at 0945, For 1 dose, For IV Hydration 1005 (New Bag - Prov ider: Nelly Reeves RN)1101 (Stopped - Provider: Nelly Reeves RN) Scheduled Medication Order 09/07/2024 09/08/2024 09/09/2024 ketorolac (TORADOL) injection 30 mg (COMPLETED) 30 mg, IntraVENous, ONCE, 1 dose, On Mon09/09/24 at 0700, Do not administer for more than 5 days. 0734 (Given - Provid er: Maria Guadalupe Wolfe RN) metoprolol (LOPRESSOR) injection 5 mg (COMPLETED) 5 mg, IntraVENous, ONCE, 1 dose, On Mon09/09/24 at 0730 0735 (Given - Provid er: Maria Guadalupe Wolfe RN) orphenadrine (NORFLEX) injection 30 mg (COMPLETED) 30 mg, IntraVENous, ONCE, 1 dose, On Mon09/09/24 at 0700 0735 (Given - Provid er: Maria Guadalupe Wolfe RN) sodium chloride 0.9 % bolus 1,000 mL (COMPLETED) 1,000 mL (12.5 mL/kg), IntraVENous, at 1,000 mL/hr, Administer over 1 Hours, ONCE, On Mon09/09/24 at 0500, For 1 dose, For IV Hydration 0504 (New Bag - Prov ider: Karli Lopes RN)0554 (Stopped - Provider: Karli Lopes RN) Scheduled Medication Order 09/27/2024 09/28/2024 09/29/2024 lidocaine 4 % external patch 1 patch 1 patch, TransDERmal, Administer over 12 Hours, DAILY, First dose on Mon09/29/24 at 1400, Apply patch to left low back. The tube maker's recommendations for the number of patches that can be applied within a 24-hour period varies from 1 to 4 times daily and the duration of application varies from 8 to 24 hours; refer to the tube maker's labeling for product-specific recommendations. 1353 (Patch Applied - Provider: Max Pisano RN) orphenadrine (NORFLEX) injection 60 mg (COMPLETED) 60 mg, IntraMUSCular, ONCE, 1 dose, On Mon09/29/24 at 1400 1353 (Given - Provid er: Max Pisano RN) Scheduled Medication Order 02/24/2025 02/25/2025 02/26/2025 ondansetron (ZOFRAN) injection 4 mg 4 mg, IntraVENous, ONCE, 1 dose, On Mon02/26/25 at 1315 1311 (Not Given - Pr ovider: Maria Guadalupe Wolfe, YARELI - Reason: Patient/family refused) sodium chloride 0.9 % bolus 1,000 mL (COMPLETED) 1,000 mL (13.7 mL/kg), IntraVENous, at 2,000 mL/hr, Administer over 0.5 Hours, ONCE, On Mon02/26/25 at 1315, For 1 dose 1308 (New Bag - Prov ider: Maria Guadalupe Wolfe, RN)1330 (Stopped - Provider: Maria Guadalupe Wolfe RN) Care Teams (unrecognized sec tion and content) Cadd Instructor Relationship Specialty Start Date End Date Kavita Qureshi CNP [address] [place], [place] [phone] PCP - General Family Medicine 06/21/21 Cadd Instructor Relationship Specialty Start Date End Date Kavita Qureshi CNP [address] [place] [address] PCP - General Family Medicine 06/21/21 Cadd Instructor Relationship Specialty Start Date End Date Kavita Qureshi CNP [address] [place] [phone] PCP - General Family Medicine 06/21/21 Cadd Instructor Relationship Specialty Start Date End Date Kavita Qureshi CNP [address] [place] [phone] PCP - General Family Medicine 06/21/21 Cadd Instructor Relationship Specialty Start Date End Date Kavita Qureshi CNP [address] [place] [phone] PCP - General Family Medicine 06/21/21 Cadd Instructor Relationship Specialty Start Date End Date Kavita Qureshi APRN - DOUBLE HEAD 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 [address] [place] [address] PCP - General Certified Nurse Practitioner 08/04/24 Cadd Instructor Relationship Specialty Start Date End Date Kavita Qureshi APRN - DOUBLE HEAD 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 [address] [place] [address] PCP - General Certified Nurse Practitioner 08/04/24 Cadd Instructor Relationship Specialty Start Date End Date Kavita Qureshi APRN - DOUBLE HEAD 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 [address] [place] [address] PCP - General Certified Nurse Practitioner 08/04/24 Cadd Instructor Relationship Specialty Start Date End Date Kavita Qureshi APRN - DOUBLE HEAD 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 [address] [place] [address] PCP - General Certified Nurse Practitioner 08/04/24 Cadd Instructor Relationship Specialty Start Date End Date Kavita Qureshi APRN - DOUBLE HEAD 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 [address] [place] [address] PCP - General Certified Nurse Practitioner 08/04/24 Cadd Instructor Relationship Specialty Start Date End Date Kavita Qureshi APRN - DOUBLE HEAD 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 [address] [place] [address] PCP - General Certified Nurse Practitioner 08/04/24 Cadd Instructor Relationship Specialty Start Date End Date Kavita Qureshi APRN - DOUBLE HEAD 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 [address] [place] [address] PCP - General Certified Nurse Practitioner 08/04/24 Cadd Instructor Relationship Specialty Start Date End Date Kavita Qureshi PATIENT TRANSPORT OFFICER - DOUBLE HEAD 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 [address] [place] [address] PCP - General Certified Nurse Practitioner 08/04/24 Cadd Instructor Relationship Specialty Start Date End Date Kaviat Qureshi APRN - DOUBLE HEAD 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 [address] [place] [address] PCP - General Certified Nurse Practitioner 08/04/24 Cadd Instructor Relationship Specialty Start Date End Date Kavita Qureshi APRN - DOUBLE HEAD 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 [address] [place] [address] PCP - General Certified Nurse Practitioner 08/04/24 Cadd Instructor Relationship Specialty Start Date End Date Kavita Qureshi APRN - DOUBLE HEAD 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 [address] [place] [address] PCP - General Certified Nurse Practitioner 08/04/24 Cadd Instructor Relationship Specialty Start Date End Date Kavita Qureshi APRN - DOUBLE HEAD 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 [address] [place] [address] PCP - General Certified Nurse Practitioner 08/04/24 Cadd Instructor Relationship Specialty Start Date End Date Kavita Qureshi APRN - DOUBLE HEAD 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 [address] [place] [address] PCP - General Certified Nurse Practitioner 08/04/24 Cadd Instructor Relationship Specialty Start Date End Date Kavita Qureshi APRN - DOUBLE HEAD 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 [address] [place] [address] PCP - General Certified Nurse Practitioner 08/04/24 Cadd Instructor Relationship Specialty Start Date End Date Kavita Qureshi APRN - DOUBLE HEAD 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 [address] [place] [phone] PCP - General Certified Nurse Practitioner 08/04/24 Cadd Instructor Relationship Specialty Start Date End Date Kavita Qureshi, PATIENT TRANSPORT OFFICER - DOUBLE HEAD 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 [address] [place] [address] PCP - General Certified Nurse Practitioner 08/04/24 Cadd Instructor Relationship Specialty Start Date End Date Kavita Qureshi, PATIENT TRANSPORT OFFICER - DOUBLE HEAD 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 [address] [place] [address] PCP - General Certified Nurse Practitioner 08/04/24 INFORMATION SOURCE (unrecogn ized section and content) DATE CREATED AUTHOR 08/13/2022 [facility] DATE CREATED AUTHOR AUTHOR'S ORGANIZ ATION 09/08/2022 [facility] DATE CREATED AUTHOR AUTHOR'S ORGANIZ ATION 09/09/2024 [facility] DATE CREATED AUTHOR AUTHOR'S ORGANIZ ATION 02/28/2025 [facility] DATE CREATED AUTHOR AUTHOR'S ORGANIZ ATION 02/28/2025 [facility] FOR RECORDS PERTAINING TO PATIENTS WHO ARE [...] BE BASED ON THE PRIMARY CLINICAL RECORDS. [employer] [facility]. provides no warranty or guarantee of the accuracy or completeness of information in this document."
[2025-03-10 10:18] VITALS: BP 118/71; PULSE 114; TEMP 36.5; O2SAT 98
--- NOTE | 2025-03-10 10:21 | PC.NURSE ---
Pt advised to monitor FSBS today and next few days and treat with her sliding scale as directed.
[2025-03-10 11:00] VITALS: PULSE 102; O2SAT 96
[2025-03-10] MEDS: METHYLPREDNISOLONE ACETATE 40 MG/ML VIAL INJ (11:08)
[2025-03-10] MEDS: LIDOCAINE HCL 2% 400 MG/20 ML MDV INJ (11:08)
[2025-03-10] MEDS: BUPIVACAINE HCL 0.25% PF 25 MG/10 ML VIAL 2 ML INJ (11:08)
[2025-03-10 11:09] VITALS: PULSE 102; O2SAT 96
--- NOTE | 2025-03-10 11:10 | P.ON_ITS ---
Date of procedure: 03/10/25 Pre-op diagnosis: Pain due to lumbar spondylosis without myelopathy Procedure: Procedure: Left L4-5, L5-S1 radiofrequency ablation Medications: Bupivacaine 0.25% 3cc, depomedrol 40mg, lidocaine 2% 3cc The patient was seen and examined in the preoperative holding area.? The site was marked.? Written informed consent was obtained and placed on the chart.? The patient was brought to the medical procedure unit and placed in the prone position.? A timeout was completed verifying correct patient, procedure, positioning, and special requirements.? The skin overlying the target points, the designated medial branch, was prepped and draped in the usual sterile fashion.? The target point was achieved with a 20-gauge 15 cm with a 10 mm curved active tip radiofrequency cannula under direct fluoroscopic visualization.? The needle was inserted at level L4 on the left side. Needle tip position was confirmed with lateral fluoroscopic position.? Motor stimulation was carried out at 2 Hz up to 5 volts with the absence of extremity activity.? This was repeated at level L5, S1 on left side.?? Sensory stimulation was carried out.? Concordant pain was realized at the above- mentioned sites.? Then radiofrequency lesioning was carried out times 90 seconds at 80 degrees times 2 lesions at each level.? The radiofrequency probe was removed prior to cannula removal.? The above-mentioned injectate was placed in 1 mL increments.? The needle was removed.? Insertion sites were covered.? The patient was taken to the postoperative recovery area and monitored for an appropriate length of time before being found suitable for discharge in the company of a responsible adult. Anesthesia: Local Surgeon: Ivana Velasquez Pathology: none sent Condition: stable Disposition: no change
[2025-03-10 11:11] VITALS: BP 134/69
[2025-03-10 11:12] VITALS: BP 134/68
== END 2025-03-10 11:16 | disposition home or self-care (01) ==
LOC: SURGOUT 09:46
PROVIDERS: Visit Provider Anesthesiology
DX: M47.816 Spondylosis without myelopathy or radiculopathy, lumbar region (principal); M54.50 Low back pain, unspecified; E11.8 Type 2 diabetes mellitus with unspecified complications; Z79.85 Long-term (current) use of injectable non-insulin antidiabetic drugs
CPT/HCPCS: 36415; 64635; 64636; 82948; J0665; J1010

== ENCOUNTER 2025-03-19 10:43 | Outpatient (OUT) | payer OTHER, SELFPAY ==
--- OUTSIDE RECORDS SUMMARY | 2016-07-06 14:44 | XMS_ITS | Encounter Summary ---
Author Organization [facility] Address [address] [facility], [address] [place] [address] Care Team Providers Care Clerk Television Production Name Role Phone Ade Lloyd JOLENE - RESIDENTIAL COLLECTIONS Primary Care Provider Reason for Referral * Imaging (Routine) - Closed Specialty Diagnoses / Procedures Referred By James martinez Referred To Contact Radiology Diagnoses Abnormal CT scan Calcification of ovary Procedures MRI Pelvis W WO Contrast MRI Abdomen Pelvis W WO Contrast Grady Barrera MD Phone: tel: fax: Referral ID Status Reason Start Date Expiration Date Visits Re quested Visits Authorized [id number] Closed 06/27/2016 06/27/2017 1 1 Encounter Details Date Type Department Care Team (Latest Contact Info) Description 07/06/2016 1:44 PM EST Hospital Encounter [facility] MRI [address] [place] [address] Grady Barrera MD 27 [facility] [address] [place] [address] scan; Calcification of [...] Kidney failure: <15 mL/min/1.73sq m Performed at [facility] [address] [place] [address] ([phone] GFR Staging NOT REPORTED [facility] 07/06/2016 2:20 PM EST 07/06/2016 2:21 PM EST us Grady Barrera MD CHEMISTRY ORDERABLES Final Re sult [facility] [address] [place] [address], [facility] [phone] [facility] documented in this encounter Visit [...] documented as of this encounter Care Teams Clerk Television Production Relationship Specialty Start Date End Date Ade Lloyd, IN STORE DEMONSTRATOR - [place] [address] PCP - General Certified Nurse Practitioner 08/01/14 02/10/20 documented as of this encounter
--- OUTSIDE RECORDS SUMMARY | 2025-02-28 07:00 | XMS_ITS | Continuity of Care Document ---
Author Organization [facility] Address [address] [place] [address] Phone Care Team Providers Care Host/Hostess Name Role Phone David Trinidad MD Unavailable Unavailable Allergies, Adverse Reactions, Alerts Substance Reaction Status Criticality PENICILLIN Active No Information Ujirplh-LTG-CtL Reductase Inhibitors HivesHives Acti ve No Information gabapentin Low blood pressure Active No Inform ation Medications Medication Instructions Dosage Effective Dates (start - stop) Status Comments Lantus U-100 Insulin 100 unit/mL subcutaneous solution - Active insulin lispro (U-100) 100 unit/mL subcutaneous pen - Active Decara K 1,250 mcg-200 mcg capsule - Active magnesium 200 mg tablet - Active Procedures Procedure Date Intravitreal Inj Agent Sep Procedure Feb OCT Retina Intraocular Avastin Injection Ophth Serv: Med Exam; Comp Est Intravitreal Inj Agent Sep Procedure Dec OCT Retina Intraocular Avastin Injection 5 Offic/outpt E&m New Mod-hi 45 5 Advance Directives Directive Yes / No Effective Date File Name Other Directive No N/A N/A WARNING:The information contained in this section is historical and is provided for information only and does not constitute a legal document or any assurance that the information is still accurate. Please verify the information with the gutierrez of the legal document before using it for clinical purposes. Encounters Encounter Description Practice Location Reason(s) For Visit Diagnoses Date Provider Providers Copied on Encounter [facility], [address], [place], [place], [id number], [place] tel:[phone] [facility] [place] retina (chief complaint) Severe nonproliferative diabetic retinopathy of right eye with macular edema associated with type 2 diabetes mellitusSevere nonproliferative diabetic retinopathy of left eye without macular edema associated with type 2 diabetes mellitusAge-relat ed nuclear cataract, bilateralLong-ter m insulin useVitreous syneresis of both eyes Vivi Hernandez . [address] [facility], [place], [place], [id number] , . tel:[phone] Referring Provider: Michael Fay OD V, [address] [place], [address] . tel:[phone] Offic/outpt E&m New Mod-hi 45 [facility], [address], [place], [place], [id number], [place] tel:[phone] [facility] [place] retina (chief complaint) Severe nonproliferative diabetic retinopathy of right eye with macular edema associated with type 2 diabetes mellitusSevere nonproliferative diabetic retinopathy of left eye without macular edema associated with type 2 diabetes mellitusAge-relat ed nuclear cataract, bilateralLong-ter m insulin useVitreous syneresis of both eyes Vivi Hernandez . [address] [facility], [place], [place], [id number] , [place]. tel:[phone] Referring Provider: Michael Fay OD V, [address] [place], [address] . tel:[phone] Family History Family Member Type Diagnosis Age At Onset Mother Problem Asthma Sister Problem Diabetes mellitus Payers Payer name Insurance type Covered democrat ID Yamil byrdlam(s) [facility] [id number] Social History Type Description Quantity Date Captured Comments Alcohol Use Details Unknown Caffeine Use Details Unknown Tobacco Use Status Ex-cigarette smoker 025 Smoking Status Former smoker Smoking Tobacco Use Details Cigarette: Age Stopped: 48 Cigarette: 1.5 Packs per day Sex Female Chief Complaint And Reason For Visit From encounter dated '02/28/2025 11:00'. retina (chief complaint). Description: Patient present for Avastin injection OD/ OCT + exam OU per patient secondary to NPDR OD. Patient c/o blurry vision OD.Patient wants to know if the injection medication is actually helping her at all. Patient wants to know if the medication will cure her retinopathy or if it is just stopping it from getting worse. Patent states the medication is expensive and she doesn't know how long insurance will cover it and it is a long drive. Does she need tocontinue with treatment?If cataract surgery will make her retinopathy worse, will she ever be able to get cataract surgery? Reason For Referral Reason For Referral No Information Plan Of Treatment Date Type Action Status Appointment Casandra Gonzalez BOOKED History Of Present Illness Encounter Date Complaint History Of Prese nt Illness retina Patient present for Avastin injection OD/ OCT + exam OU per patient secondary to NPDR OD. Patient c/o blurry vision OD.Patient wants to know if the injection medication is actually helping her at all. Patient wants to know if the medication will cure her retinopathy or if it is just stopping it from getting worse. Patent states the medication is expensive and she doesn't know how long insurance will cover it and it is a long drive. Does she need to continue with treatment?If cataract surgery will make her retinopathy worse, will she ever be able to get cataract surgery? retina New patient pres ents in clinic for diabetic macular edema OD referred by Dr. Fay after pt noticed OD vision getting worse. Patient reports she started noticing vision changes in October and states OD vision is blurry and states she notices floaters only in bright light. Pt denies changes in OS vision, denies flashes of light OU, denies distortion or wavy vision OU, denies pain or irritation OU.Patient most recent AC was 9.9 on 12/31, diabetes is followed by PCP Javier Bell, PCP is not in system Functional Status Date Functional Assessmen t No Information Instructions Date Instruction Additional Infor rajesh - The edema in the r ight eye has improved, and patient is clear to proceed with cataract surgery at any time for the right eye. There is a small amount of swelling in the left eye, this is fine to monitor at this time. If the patient is considering cataract surgery in the left eye, we will need to do an injection first. Avastin OD injection performed today without complications. Patient knows to call with pain that is worsening or decrease in vision. Advised to use artificial tears and/or compresses throughout the day today and tomorrow for any irritation/discomfort. OCT ordered/completed today and reviewed with patient.RIGHT EYE -avastin 01/03/2025, 02/28/2025 (8 wks), next inj 04/25/2025 (8 wks) LEFT EYE - get injection prior to cataract surgery. Related to Diagnosis: Severe nonproliferative diabetic retinopathy of right eye with macular edema associated with type 2 diabetes mellitus. Code: E11.3411. Status: . Eye: OD. Impression: .Diagnosis: Severe nonproliferative diabetic retinopathy of left eye without - best vision will b e after treatment dme and cataract surgeryDiscussed has swelling in the right eye and needs injections. Will need to get swelling controlled before has cataract surgery. This is a reflection of how her diabetes is affecting the rest of the body. Her A1C was at a 14 when she was first diagnosed. We can treat the right eye today. Good blood sugar control. Emergent Avastin OD injection performed today without complications. Patient knows to call with pain that is worsening or decrease in vision. Advised to use artificial tears and/or compresses throughout the day today and tomorrow for any irritation/discomfort. OCT ordered/completed today and reviewed with patient. Related to Diagnosis: Severe nonproliferative diabetic retinopathy of right eye with macular edema associated with type 2 diabetes mellitus. Code: E11.3411. Status: . Eye: OD. Impression: .Diagnosis: Severe nonproliferative diabetic retinopathy of left eye without Assessments Type Assessment Date assessment Severe nonproliferat pinky diabetic retinopathy of right eye with macular edema associated with type 2 diabetes mellitus assessment Severe nonproliferat pinky diabetic retinopathy of left eye without macular edema associated with type 2 diabetes mellitus assessment Age-related nuclear cataract, bi lateral assessment Long-term insulin use assessment Vitreous syneresis of both eyes Patient Care Teams Name Effective Dates (start - stop) Status Members No Information
--- OUTSIDE RECORDS SUMMARY | 2025-03-19 10:45 | XMS_ITS | Encounter Summary ---
Author Organization [facility] Address [address], [address] [place] [address] Care Team Providers Care Livestock Auctioneer Name Role Phone Le Bell APRN - DRAGLINE OPERATOR Primary Care Provider Encounter Details Date Type Department Care Team (Late st Contact Info) Description 06/21/2021 Transcribe Orders [facility] [address] [place] [address] Le Bell APRN - DRAGLINE OPERATOR [address] [place] [address] Social History Tobacco Use Types [...] documented as of this encounter Care Teams Livestock Auctioneer Relationship Specialty Start Date End Date Le Bell APRN - NP [address] [place] [address] PCP - General Certified Nurse Practitioner 08/04/24 documented as of this encounter
--- OUTSIDE RECORDS SUMMARY | 2025-03-19 10:46 | XMS_ITS | Encounter Summary ---
Author Organization [facility] Address [address], [address] [place] [address] Care Team Providers Care Geophysics Scientist Name Role Phone Le Bell APRN - COMPUTER FORENSIC SPECIALIST Primary Care Provider Reason for Visit * Reason Comments Other Encounter Details Date Type Department Care Team ([facility] Contact Info) Description 10/26/2013 Refill [facility] [place] [address] [place] [phone] Kerri Lovelace, PAIman [address] [address] Other Social History Tobacco Use [...] documented as of this encounter Care Teams Geophysics Scientist Relationship Specialty Start Date End Date Le Bell APRN - NP [address] [place] [address] PCP - General Certified Nurse Practitioner 08/04/24 documented as of this encounter
--- OUTSIDE RECORDS SUMMARY | 2025-03-19 10:46 | XMS_ITS | Encounter Summary ---
Author Organization [facility] Address [address] [place] [address] Care Team Providers Care Die Storage Clerk Name Role Phone Unavailable Primary Care Provider Unavailabl e Reason for Visit * Reason Comments Med Refill Encounter Details Date Type Department Care Team (Latest Contact Info) Description 02/25/2024 Refill [facility] Shaikh Gil MD [address] [place] [phone] Social History Tobacco Use Types Packs/Day Years [...]
--- OUTSIDE RECORDS SUMMARY | 2025-03-19 10:46 | XMS_ITS | Encounter Summary ---
Author Organization [facility] Address [address], [address] [place] [address] Care Team Providers Care Activities Assistant Name Role Phone Le Bell APRN, NP Primary Care Provider Reason for Referral * Imaging (Routine) - Closed Specialty Diagnoses / Procedures Referred By James martinez Referred To Contact Radiology Diagnoses Chest pain, unspecified type Procedures NM MYOCARDIAL SPECT REST EXERCISE OR RX Le Bell APRN - NP [address] [place] [address] Phone: tel: fax: Referral ID Status Reason Start Date Expiration Date Visits Re quested Visits Authorized [id number] Closed 04/22/2021 04/22/2022 1 1 Encounter Details Date Type Department Care Team (Latest Contact Info) Description 04/22/2021 Transcribe Orders [facility] [address] [place] [address] Le Bell APRN - NP [address] [place] [address] Chest pain, unspecified type (Primary [...] documented as of this encounter Care Teams Activities Assistant Relationship Specialty Start Date End Date Le Bell APRN - DATABASE SPECIALIST [address] [place] [address] PCP - General Certified Nurse Practitioner 08/04/24 documented as of this encounter
--- OUTSIDE RECORDS SUMMARY | 2025-03-19 10:46 | XMS_ITS | Encounter Summary ---
Author Organization [facility] Address [address], [address] [place] [address] Care Team Providers Care Patent Law Specialist Name Role Phone Le Bell APRN - SENIOR BUSINESS CONSULTANT Primary Care Provider Reason for Visit * Reason Comments Medication Refill Encounter Details Date Type Department Care Team ([facility] Contact Info) Description 11/02/2016 Refill [facility] [place] [address] [place] [phone] Ade Lloyd, BOOKER - WOOL TAMPER [address] [place] [address] Medication Refill Social History Tobacco Use Types [...] documented as of this encounter Care Teams Patent Law Specialist Relationship Specialty Start Date End Date Le Bell APRN - NP [address] [place] [address] PCP - General Certified Nurse Practitioner 08/04/24 documented as of this encounter
--- OUTSIDE RECORDS SUMMARY | 2025-03-19 10:46 | XMS_ITS | Clinical Summary ---
Author Organization [facility] Address [address] [place] [address] Care Team Providers Care Multi Craft Maintenance Technician Name Role Phone Le Bell SAP BPC DEVELOPER Primary Care Provider [phone] Allergies Active Allergy Reactions Criticality Noted Date Comments Penicillins 04/21/2021 Pravastatin Hives 10/13/2010 Medications Aspirin Low Dose [address] tablet Take 81 mg by mouth daily. 1 Active Continuous Blood Gluc Principal Accounts Clerk ([employer] [facility] [employer]) DeviceIndications: Uncontrolled type 2 diabetes mellitus [...] 06/21/2022 8:00 PM EST Plan of Treatment Upcoming Encounters Date Type Department Care Team (Late st Contact Info) Description 04/10/2025 10:20 AM EDT Office Visit [facility] [address] [place] [address] Roger Elkins MD [address] [place] [address] Health Maintenance Due Date Last Done Comments [...] VACCINE ( - season) 2024 INFLUENZA VACCINE (#1) 2025 [...] or Most Recently Relevant to Health Maintenance Insurance [employer] Advance Directives For more information, please contact: [phone] (7:30 AM - 6PM [facility], Monday-Monday) * Full Code (Latest Code Status on File) Date Activated Date Inactivated Comments 06/21/2022 5:19 PM Care Teams Multi Craft Maintenance Technician Relationship Specialty Start Date End Date Le Bell CNP PCP - General Family Medicine 06/21/21
--- OUTSIDE RECORDS SUMMARY | 2025-03-19 10:46 | XMS_ITS | Patient Health Record ---
Author Organization [facility] Address [address] [place] [address] Care Team Providers Care Precision Aircraft Structure Assembler Name Role Phone ArabellaLe Primary Care Provider Juan Hayes Unavailable [phone] Camilla Wagoner Unavailable [phone] Results Component Value Reference Range Notes MRI LUMBAR SPINE WO CONTRAST Reviewed date:12/11/2024 07:25:46 AM Interpretation: Performing Lab: Notes/Report: EXAM: MRI LUMBAR SPINE WO CONTRAST Performed at: [address] [address] Reason For Referral Reason DENIED.............. .....................NOT SCHEDULED........................................[facility] MRI THORACIC TO BE DONE AT [place] Diagnosis 1 Mid back pain (M54.9 ) Referral Organization [facility] Referring Provider First Name Franci Referring Provider Last Name Cora Referring Provider Speciality Orthopedic Surgery Referred Organization [facility] Procedure 1 MRI Thoracic Spine w /o Dye ([id number]) General Notes Karli Gongora 2024 11:25:34 AM >, Clara Corona 08/23/2024 11:32:57 AM > WAITING ON TODAY'S OFFICE NOTE, Clara Corona 08/28/2024 12:34:53 PM > AUTHORIZATION REQUEST SUBMITTED WITH CLINICALS VIA [facility], TRACKING # [id number], Clara Corona 09/04/2024 07:53:03 AM > PENDING PER [facility].Chloe Kayla 09/04/2024 01:05:00 PM > CASE PENDING ADDITIONAL INFORMATION PER FAX BACK FROM [facility]. THEY'RE NEEDING NOTES SHOWING THAT PATIENT HAS TRIED AND FAILED 6 WEEKS OF PHYSICAL THERAPY WITHIN THE LAST 6 MONTHS., Clara Corona 09/05/2024 07:42:08 AM > CASE NOW DENIED PER FAX BACK FROM [facility]. SCANNED INTO CHART.Sybil Sara 09/05/2024 10:01:07 AM > faxed Referral Priority Routine Reason APPROVED............ .................NOT SCHEDULED..............................[facility] MRI LUMBAR TO BE DONE AT [place] Diagnosis 1 Lumbar back pain (M5 4.50) Referral Organization [facility] Referring Provider First Name Franci Referring Provider Last Name [facility] Referring Provider Speciality Orthopedic Surgery Referred Organization [facility] Procedure 1 MRI Lumbar Spine w/o Dye ([id number]) General Notes Karli Gongora 2024 11:42:03 AM >, Clara Corona 11/15/2024 11:43:25 AM > WAITING ON TODAY'S OFFICE NOTEChloe Kayla 11/20/2024 02:12:12 PM > AUTHORIZATION REQUEST SUBMITTED WITH CLINICALS [facility]IA [facility], TRACKING # [id number], Clara Corona 11/25/2024 11:31:33 AM > AUTHORIZATION # [id number] APPROVED AND VALID 11/20/24-01/19/25 PER FAX BACK FROM [facility]. SCANNED INTO CHART AND FAXED TO JUNIE [facility].Sybil Sara 11/25/2024 11:57:40 AM > order faxed Referral Priority Routine Reason [facility] Diagnosis 1 Lumbar stenosis with neurogenic claudication (M48.062) Referral Organization [facility] Referring Provider First Name Franci Referring Provider Last Name Cora Referring Provider Speciality Orthopedic Surgery Referred Organization [facility] Referred Address [address] [place] [address],[address], [address],[place],[address], General Notes Karli Gongora 2024 10:43:22 AM [...] Problem Status W/U Status Risk Notes Problem [id number] Thoracic radiculopathy (M54.14) Active confirmed Problem [id number] Spondylolisthesi s, 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 Problem 242339224 Thoracic spine p ain (M54.6) Active confirmed Problem 107553267 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 Problem 087884684 Neuroforaminal stenosis of lumbar spine (M48.061) Active confirmed Vital Signs Height 5'7 in 08/23/2024 Weight 178 lbs 08/23/2024 BMI 27.88 08/23/2024 Encounters Encounter Location Date Provider Diagnosis [facility] [address] [place] [address] 08/23/2024 Camilla [facility] Thoracic radiculopathy M54.14 and Thoracic spine pain M54.6 [place] [address] [address] [place] [address] 11/15/2024 Juan Diglio Lumbar back pain M54 .50 and Spondylolisthesis of thoracic region M43.14 [place] [address] [address] [place] [address] 12/20/[address] [place] [address] Neuroforaminal stenosis of lumbar spine M48.061 and [...] Date Medicaid [employer] [place] [address] [place] [address] [id number] ANU YEUNG Self - patient is the insured Medical (General) History Medical History History ICD Code Abnormal Heart Rhythm Liver Disease Diabetes Kidney stones Sleep apnea Do you have a CPAP machine? Yes
--- OUTSIDE RECORDS SUMMARY | 2025-03-19 10:46 | XMS_ITS | Encounter Summary ---
Author Organization [facility] Address [address], [address] [place] [address] Care Team Providers Care Oracle Fusion Consultant Name Role Phone Le Bell APRN - SUPERVISOR [employer] Primary Care Provider Reason for Visit * Reason Comments Medication Refill Encounter Details Date Type Department Care Team ([facility] Contact Info) Description 11/17/2016 Refill [facility] [place] [address] [place] [address] Ade Lloyd APRN - STORE PROMOTER [address] [place] [address] Medication Refill Social History Tobacco Use Types [...] documented as of this encounter Care Teams Oracle Fusion Consultant Relationship Specialty Start Date End Date Le Bell APRN - NP [address] [place] [phone] PCP - General Certified Nurse Practitioner 08/04/24 documented as of this encounter
--- OUTSIDE RECORDS SUMMARY | 2025-03-19 10:46 | XMS_ITS | Encounter Summary ---
Author Organization [facility] Address [address], [address] [place] [address] Care Team Providers Care Statistical Developer Name Role Phone Le Bell APRN - EASEMENT MAN Primary Care Provider Reason for Visit * Reason Comments Medication Refill Encounter Details Date Type Department Care Team ([facility] Contact Info) Description 08/17/2016 Refill [facility] [place] [address] [place] [address] Ade Lloyd APRN - [address] [address] Medication Refill Social History Tobacco Use Types [...] documented as of this encounter Care Teams Statistical Developer Relationship Specialty Start Date End Date Le Bell APRN - NP [address] [place] [phone] PCP - General Certified Nurse Practitioner 08/04/24 documented as of this encounter
--- OUTSIDE RECORDS SUMMARY | 2025-03-19 10:46 | XMS_ITS | Clinical Summary ---
Author Organization [facility] Address [address], [address] [place] [address] Care Team Providers Care Director Medical Writing Name Role Phone Le Bell Preet FACTORY SUPERVISOR - CONSTRUCTION PRODUCER Primary Care Provider Allergies Active Allergy Reactions [...] EDT - 02/26/2025 2:38 PM EDT Emergency [facility] Emergency Department [address] [place] [address] Eugenio Lan MD Dehydration (Primary Dx); Nausea and vomiting, unspecified vomiting type Discharge Disposition: Home or Self Care 02/26/2025 Travel from Last 3 Months Immunizations Immunization [...] you are drinking? Patient does not drink 03/16/202 5 Q3: How often do you have [...] 03/17, 03/29/2022, Additional history exists COVID-19 Vaccine (2023- season) 2024 Flu vaccine (#1) 02/14/2025 Lung [...] HEMOGLOBIN A1C Routine 07/04/2022 9:04 AM EST HOT DIP PLATING SUPERVISOR CYTOLOGY Routine 10/23/2018 10:00 AM EDT HUMAN PAPILLOMAVIRUS (HPV) DNA PROBE THIN PREP HIGH RISK Routine 02/25/2016 8:37 AM EDT HIV SCREEN Routine 06/23/2012 9:33 AM EST HEPATITIS C ANTIBODY Routine 06/23/2012 9:33 AM EST from Last 3 Months or Most Recently Relevant to Health Maintenance Results * EKG 12 Lead (02/26/2025 1:20 PM EDT) Ventricular Rate 95 BPM [facility] Atrial Rate 95 BPM [facility] P-R Interval 156 ms [facility] RADIOLOG[facility] QRS Duration 70 ms [facility] Q-T Interval 356 ms [facility] QTc Calculation (Bazett) 447 ms [facility] P Roundup 74 degrees [facility] R Roundup 77 degrees [facility] T Roundup 80 degrees [facility] 02/26/2025 1:20 PM EDT Narrative [facility] - 02/27/2025 8:46 AM EDT Normal sinus rhythm Cannot rule out Anterior infarct (cited on or before 13-Apr-2021) Abnormal ECG Procedure Note Roverto Barbour MD - 02/27/2025 Normal sinus rhythm Cannot rule out Anterior infarct (cited on or before 13-Apr-2021) Abnormal ECG us Eugenio Lan MD ECG ORDERABLES Final Result [facility] * (ABNORMAL) CBC with Auto Differential (02/26/2025 1:10 PM EDT) WBC 7.8 3.5 - 11.0 k/uL 02/26/2025 1:10 PM EDT [facility] RBC 5.76(H) 4.00 - 5.20 m/uL 02/26/2025 1:10 PM EDT [facility] Hemoglobin 16.3(H) 12.0 - 16.0 g/dL 02/26/2025 1:10 PM EDT [facility] Hematocrit 47.7(H) 36.0 - 46.0 % 02/26/2025 1:10 PM EDT [facility] MCV 82.8 80.0 - 100.0 fL 02/26/2025 1:10 PM EDT [facility] MCH 28.3 26.0 - 34.0 pg 02/26/2025 1:10 PM EDT [facility] MCHC 34.2 31.0 - 37.0 g/dL 02/26/2025 1:10 PM EDT [facility] RDW 12.4 12.1 - 15.2 % 02/26/2025 1:10 PM EDT [facility] Platelets 382 140 - 450 k/uL 02/26/2025 1:10 PM EDT [facility] MPV 9.7 6.0 - 12.0 fL 02/26/2025 1:10 PM EDT [facility] Neutrophils % 60 47 - 75 % 02/26/2025 1:10 PM EDT [facility] Lymphocytes % 30 15 - 40 % 02/26/2025 1:10 PM EDT [facility] Monocytes % 8 4 - 8 % 02/26/2025 1:10 PM EDT [facility] Eosinophils % 1 0 - 5 % 02/26/2025 1:10 PM EDT [facility] Basophils % 1 0 - 2 % 02/26/2025 1:10 PM EDT [facility] Immature Granulocytes % 0 0 - 5 % 02/26/2025 1:10 PM EDT [facility] Neutrophils Absolute 4.72 2.5 - 7.0 k/uL 02/26/2025 1:10 PM EDT [facility] Lymphocytes Absolute 2.35 1.00 - 4.80 k/uL 02/26/2025 1:10 PM EDT [facility] Monocytes Absolute 0.65 0.00 - 1.00 k/uL 02/26/2025 1:10 PM EDT [facility] Eosinophils Absolute 0.06 0.00 - 0.40 k/uL 02/26/2025 1:10 PM EDT [facility] Basophils Absolute 0.05 0.00 - 0.20 k/uL 02/26/2025 1:10 PM EDT [facility] Immature Granulocytes Absolute 0.01 0.00 - 0.30 k/uL 02/26/2025 1:10 PM EDT [facility] BLOOD SPECIMEN / Unknown 02/26/2025 1:10 PM EDT 02/26/2025 1:11 PM EDT us Eugenio Lan MD HEMATOLOGY ORDERABLES Final Re sult Performing Organization Address [facility]/ZIP Co de Phone Number [facility] [address] [phone] * (ABNORMAL) Troponin (02/26/2025 1:10 PM EDT) [facility] Troponin, High Sensitivity 18(H) 0 - 14 ng/L 02/26/2025 1:10 PM EDT [facility] Comment:High Sensitivity Tro ponin values cannot be compared with other Troponin methodologies. Blood BLOOD SPECIMEN / Unknown 02/26/2025 1:10 PM EDT 02/26/2025 1:11 PM EDT Eugenio Lan MD CHEMISTRY ORDERABLES Final Res ult Performing Organization Address [facility]/ZIP Co de Phone Number [facility] [address] [phone] * TSH (02/26/2025 1:10 PM EDT) [facility] TSH 0.75 0.27 - 4.20 uIU/mL 02/26/2025 1:10 PM EDT [facility] Blood BLOOD SPECIMEN / Unknown 02/26/2025 1:10 PM EDT 02/26/2025 1:11 PM EDT Eugenio Lan MD CHEMISTRY ORDERABLES Final Res ult Performing Organization Address City/[facility]/ZIP Co de Phone Number [facility] [address] [phone] * T4, Free (02/26/2025 1:10 PM EDT) [facility] T4 Free 1.7 0.9 - 1.7 ng/dL 02/26/2025 1:10 PM EDT [facility] Blood 02/26/2025 1:10 PM EDT 02/26/2025 1:11 PM EDT Eugenio Lan MD CHEMISTRY ORDERABLES Final Res ult Performing Organization Address [facility] Co de Phone Number [facility] [address] [place] [address], [facility] [phone] [address], [facility] [phone] * Magnesium (02/26/2025 1:10 PM EDT) Magnesium 2.1 1.6 - 2.6 mg/dL 02/26/2025 1:10 PM EDT [facility] BLOOD SPECIMEN / Unknown 02/26/2025 1:10 PM EDT 02/26/2025 1:11 PM EDT Eugenio Lan MD CHEMISTRY ORDERABLES Final Res ult Performing Organization Address [facility] Co de Phone Number [facility] [address] [place] [address], [facility] [phone] * (ABNORMAL) Lipase (02/26/2025 1:10 PM EDT) Lipase 96(H) 13 - 60 U/L 02/26/2025 1:10 PM EDT [facility] BLOOD SPECIMEN / Unknown 02/26/2025 1:10 PM EDT 02/26/2025 1:11 PM EDT Eugenio Lan MD CHEMISTRY ORDERABLES Final Res ult Performing Organization Address [facility]/ZIP Co de Phone Number [facility] [address] [place] [address], [facility] [phone] * (ABNORMAL) Comprehensive Metabolic Panel (02/26/2025 1:10 PM EDT) Sodium 133(L) 135 - 144 mmol/L 02/26/2025 1:10 PM EDT [facility] Potassium 4.1 3.7 - 5.3 mmol/L 02/26/2025 1:10 PM EDT [facility] Chloride 93(L) 98 - 107 mmol/L 02/26/2025 1:10 PM [facility] CO2 24 20 - 31 mmol/L 02/26/2025 1:10 PM [facility] Anion Gap 16 9 - 17 mmol/L 02/26/2025 1:10 PM [facility] Glucose 293(H) 70 - 99 mg/dL 02/26/2025 1:10 PM T [facility] BUN 15 6 - 20 mg/dL 02/26/2025 1:10 PM [facility] Creatinine 0.6 0.5 - 0.9 mg/dL 02/26/2025 1:10 PM [facility] Est, Glom Filt Rate >90 >60 mL/min/1.7 3m2 02/26/2025 1:10 PM [facility] Comment: These results are not intended [...] 8.6 - 10.4 mg/dL 02/26/2025 1:10 PM [facility] Total Protein 7.9 6.4 - 8.3 g/dL 02/26/2025 1:10 PM [facility] Albumin 4.6 3.5 - 5.2 g/dL 02/26/2025 1:10 PM [facility] Albumin/Globulin Ratio 1.4 1.0 - 2.5 02/26/2025 1:10 PM [facility] Total Bilirubin 0.8 0.3 - 1.2 mg/dL 02/26/2025 1:10 PM [facility] Alkaline Phosphatase 115(H) 35 - 104 U/L 02/26/2025 1:10 PM [facility] ALT 15 5 - 33 U/L 02/26/2025 1:10 PM EDT [facility] AST 17 <32 U/L 02/26/2025 1:10 PM EDT [facility] BLOOD SPECIMEN / Unknown 02/26/2025 1:10 PM EDT 02/26/2025 1:11 PM EDT us Eugenio Lan MD CHEMISTRY ORDERABLES Final Res ult [facility] [address] [place] [address], [facility] [phone] * CT CHEST WO CONTRAST (09/02/2024 5:54 [...] punctate left nephrolithiasis. Chaim Del Toro MD [facility] CT ORDERABLES Final Res ult * (ABNORMAL) Microalbumin, Ur (07/04/2022 9:04 AM EST) Albumin Urine 17 <21 mg/L 07/04/2022 9:04 AM EST [facility] Creatinine, Ur 61.0 28.0 - 217.0 mg/dL 07/04/2022 9:04 AM EST [employer] Microalb/Flat Sorter Processor. Ratio 28(H) <25 mcg/mg creat 07/04/2022 9:04 AM EST [facility] 07/04/2022 9:04 AM EST 07/04/2022 9:05 AM EST Omar Shea MD URINE ORDERABLES Final Result Performing Organization Address [facility]/ZIP Co de Phone Number [facility] [address] [place] [address], [facility] [phone] [employer] [address] [place] [address], [facility] [phone] * (ABNORMAL) Hemoglobin A1C (07/04/2022 9:04 AM EST) Hemoglobin A1C 13.6(H) 4.0 - 6.0 % 07/04/2022 9:04 AM EST [facility] Estimated Avg Glucose 344 mg/dL 07/04/2022 9:04 AM EST [facility] Comment: The ADA and AACC recommend providing the estimated average glucose result to permit better patient understanding of their HBA1c result. 07/04/2022 9:04 AM EST 07/04/2022 9:05 AM EST Omar Shea MD CHEMISTRY ORDERABLES Final Res ult Performing Organization Address [facility]/ZIP Co de Phone Number [facility] [address] [place] [address], [facility] [phone] [employer] [address] [place] [address], [facility] [phone] * (ABNORMAL) Lipid Panel (07/04/2022 9:04 AM EST) Cholesterol 338(H) <200 mg/dL 07/04/2022 9:04 AM EST [facility] Comment: Cholesterol Guidelines: <200 Desirable 200-240 Borderline >240 Undesirable HDL 37(L) >40 mg/dL 07/04/2022 9:04 AM EST [facility] Comment: HDL Guidelines: <40 Undesirable 40-59 Borderline >59 Desirable LDL Cholesterol 235(H) 0 - 130 mg/dL 07/04/2022 9:04 AM EST [facility] Comment: LDL Guidelines: <100 Desirable 100-129 Near to/above Desirable 130-159 Borderline >159 Undesirable Direct (measured) LDL and calculated LDL are not interchangeable tests. Chol/HDL Ratio 9.1(H) <5 07/04/2022 9:04 AM EST [facility] Comment: Triglycerides 330(H) <150 mg/dL 07/04/2022 9:04 AM EST [facility] Comment: Triglyceride Guidelines: <150 Desirable 150-199 Borderline 200-499 High >499 Very high Based on AHA Guidelines for fasting triglyceride, April 2012. 07/04/2022 9:04 AM EST 07/04/2022 9:05 AM EST Omar Shea MD CHEMISTRY ORDERABLES Final Res ult Performing Organization Address City/[facility]/ZIP Co de Phone Number [facility] [address] [place], [place] [address] [phone] [phone] * HOT DIP PLATING SUPERVISOR Cytology (10/23/2018 10:00 AM EDT) Cytology Report [id number] [facility] [employer] [facility] CONSULTING PATHOLOGISTS [facility] ANATOMIC PATHOLOGY [address] [place] [phone] GYNECOLOGIC CYTOLOGY REPORT Patient Name: CASANDRA GONZALEZ MR#: [id number] Specimen #[id number] Source: 1: Cervical material, (ThinPrep vial, Imaging-assisted review) Clinical History LEEP: 2016 Z12.4 Encounter for screening for malignant neoplasm of cervix High Risk HPV DNA testing is requested if the diagnosis is ASC-US LMP: ablation INTERPRETATION Cervical material, (ThinPrep vial, Imaging-assisted review): Specimen Adequacy: Satisfactory for evaluation. -Endocervical/tra nsformation zone component is absent. Descriptive Diagnosis: Negative for intraepithelial lesion or malignancy. Regional Operations Director: JENI Reynolds JD(ASCP) Electronically Signed Out trever/11/06/2018 [facility] 10/23/2018 10:0 0 AM EDT 10/25/2018 10:00 AM EDT Grady Barrera MD PATHOLOGY/CYTOLOGY ORDERABLES Final Result [facility] [address] [place] [address], [facility] [phone] [address] [phone] * (ABNORMAL) Human papillomavirus (HPV) DNA probe thin prep high risk (02/25/2016 8:37 AM EDT) [facility] Signature HPV SOURCE CERVICAL MATERIAL 03/16/2016 8:37 AM EDT [facility] HPV Sample .THIN PREP 03/16/2016 8:37 AM EDT [facility] HPV, Genotype 16 Not Detected NOTDET 2015 2:09 PM EDT [facility] HPV, Genotype 18 Not Detected NOTDET 2015 2:09 PM EDT [facility] HPV, High Risk Other DETECTED(A) NOTDET 03/16/2016 2:09 PM EDT [facility] HPV, Interpretation 03/16/2016 2:09 PM EDT [facility] Comment: This test amplifies and detects [...] or for other forensic purposes. Performed at [address] [address] ([phone] 02/25/2016 8:37 AM EDT 03/16/2016 8:37 AM EDT us Grady Barrera MD HEMATOLOGY ORDERABLES Final R esult [facility] [address] [place] [address], [facility] [phone] [facility] * Hepatitis C antibody (06/23/2012 9:33 AM EST) Pathologist [facility] Hepatitis C Ab NONREACTIVE NR [facility] Comment: The hepatitis C procedure used [...] ordering HCV RNA by PCR. Performed at [address] [address] 06/23/2012 9:33 AM EST 06/23/2012 9:34 AM EST Mkuund Olivares MD IMMUNOLOGY ORDERABLES Final Resu lt Performing Organization Address [facility] de Phone Number [facility] [address] [place], [place] [address] [phone] [facility] * HIV-1 and HIV-2 antibodies (06/23/2012 9:33 AM EST) Pathologist [facility] HIV 1/2 Antibody NONREACTIVE NR [facility] Comment: Interpretation: The presence of antibody to HIV and its association with the potential infectivity, transmission or diagnosis of AIDS has not been established. Furthermore, a 'Non-Reactive' test result does not exclude the possibility of exposure to or infection with HIV. If the above test result is 'Reactive', the Laboratory will order the confirmatory test. Performed at [address] [address] 06/23/2012 9:33 AM EST 06/23/2012 9:34 AM EST Mukund Olivares MD IMMUNOLOGY ORDERABLES Final Resu lt Performing Organization Address [facility] Co de Phone Number [facility] [address] [place] [address], [facility] [phone] [facility] from Last 3 Months or Most [...] Dont Child Primary Decision Maker Care Teams Director Medical Writing Relationship Specialty Start Date End Date Le Bell APRN - NP [address] [place] [id number] PCP - General Certified Nurse Practitioner 1/19/25
--- OUTSIDE RECORDS SUMMARY | 2025-03-19 10:46 | XMS_ITS | Encounter Summary ---
Author Organization [facility] Address [address], [address] [place] [address] Care Team Providers Care Licensed Weigher Name Role Phone Le Bell APRN - PHP MYSQL DEVELOPER Primary Care Provider Reason for Visit * Reason Comments Medication Refill Encounter Details Date Type Department Care Team ([facility] Contact Info) Description 07/27/2016 Refill [facility] Primary [facility] of [place] [address] [place] [address] Ade Lloyd APRN - PREASSEMBLER PRINTED CIRCUIT BOARD [address] [place] [phone] Medication Refill Social History Tobacco Use Types [...] documented as of this encounter Care Teams Licensed Weigher Relationship Specialty Start Date End Date Le Bell APRN - MK [address] [place] [phone] PCP - General Certified Nurse Practitioner 08/04/24 documented as of this encounter
--- OUTSIDE RECORDS SUMMARY | 2025-03-19 10:46 | XMS_ITS | Encounter Summary ---
Author Organization [facility] Address [address], [address] [place] [address] Care Team Providers Care Docketing Specialist Name Role Phone Le Bell APRN - SALES AND CUSTOMER RELATIONS REP Primary Care Provider Reason for Visit * Reason Comments Medication Refill Encounter Details Date Type Department Care Team ([facility] Contact Info) Description 11/10/2016 Refill [facility] [address] [place] [phone] Ade Lloyd, INFORMATION ASSURANCE - DEDICATED LOCAL TRUCK DRIVER [address] [place] [address] Medication Refill Social History Tobacco Use Types [...] documented as of this encounter Care Teams Docketing Specialist Relationship Specialty Start Date End Date Le Bell APRN - NP [address] [place] [address] PCP - General Certified Nurse Practitioner 08/04/24 documented as of this encounter
--- OUTSIDE RECORDS SUMMARY | 2025-03-19 10:46 | XMS_ITS | Encounter Summary ---
Author Organization [facility] Address [address], [address] [place] [address] Care Team Providers Care Visual Education Director Name Role Phone Le Bell APRN - SUSTAINABILITY COORDINATOR Primary Care Provider Reason for Visit * Reason Comments Medication Refill Encounter Details Date Type Department Care Team ([facility] Contact Info) Description 09/14/2016 Refill [facility] Primary [facility] of [place] [address] [place] [address] Ade Lloyd APRN - [address] [address] Medication Refill Social History Tobacco Use Types [...] documented as of this encounter Care Teams Visual Education Director Relationship Specialty Start Date End Date Le Bell APRN - NP [address] [place] [phone] PCP - General Certified Nurse Practitioner 08/04/24 documented as of this encounter
--- OUTSIDE RECORDS SUMMARY | 2025-03-19 10:46 | XMS_ITS | Encounter Summary ---
Author Organization [facility] Address [address], [address] [place] [address] Care Team Providers Care Insurance Claims Clerk Name Role Phone Le Bell APRN - MOBILE HOME TECHNICIAN Primary Care Provider Reason for Visit * Reason Comments Medication Refill Encounter Details Date Type Department Care Team ([facility] Contact Info) Description 09/06/2017 Refill [facility] [place] [address] [place] [phone] Ade Lloyd, AIRLINE ATTENDANT - METAL TEMPLATE MAKER [address] [place] [address] Medication Refill Social History Tobacco Use Types [...] documented as of this encounter Care Teams Insurance Claims Clerk Relationship Specialty Start Date End Date Le Bell APRN - NP [address] [place] [address] PCP - General Certified Nurse Practitioner 08/04/24 documented as of this encounter
--- OUTSIDE RECORDS SUMMARY | 2025-03-19 10:46 | XMS_ITS | Encounter Summary ---
Author Organization [facility] Address [address], [address] [place] [address] Care Team Providers Care Sprayer Operator Name Role Phone Le Bell APRN - RESIDENTIAL WORKER Primary Care Provider Reason for Visit * Reason Comments Medication Refill Encounter Details Date Type Department Care Team ([facility] Contact Info) Description 10/09/2016 Refill [facility] [place] [address] [place] [phone] Ade Lloyd, RETORT PRE COOKER - ARCHERY EQUIPMENT HAY SORTER [address] [place] [address] Medication Refill Social History Tobacco Use Types [...] documented as of this encounter Care Teams Sprayer Operator Relationship Specialty Start Date End Date Le Bell APRN - NP [address] [place] [address] PCP - General Certified Nurse Practitioner 08/04/24 documented as of this encounter
--- OUTSIDE RECORDS SUMMARY | 2025-03-19 10:46 | XMS_ITS | Encounter Summary ---
Author Organization [facility] Address [address], [address] [place] [address] Care Team Providers Care Green Building Engineer Name Role Phone Le Bell APRN - GALLERY OR MUSEUM CURATOR Primary Care Provider Reason for Visit * Reason Comments Medication Refill Encounter Details Date Type Department Care Team ([facility] Contact Info) Description 10/26/2016 Refill [facility] [place] [address] [place] [phone] Ade Lloyd, COSTUME SPECIALIST - DIAMOND SIZER [address] [place] [address] Medication Refill Social History Tobacco Use Types [...] documented as of this encounter Care Teams Green Building Engineer Relationship Specialty Start Date End Date Le Bell APRN - NP [address] [place] [address] PCP - General Certified Nurse Practitioner 08/04/24 documented as of this encounter
--- OUTSIDE RECORDS SUMMARY | 2025-03-19 10:46 | XMS_ITS | Encounter Summary ---
Author Organization [facility] Address [address], [address] [place] [address] Care Team Providers Care Roof Slater Name Role Phone Le Bell APRN - CREAM GATHERER Primary Care Provider Reason for Visit * Reason Comments Medication Refill Encounter Details Date Type Department Care Team ([facility] Contact Info) Description 01/11/2017 Refill [facility] [place] [address] [place] [phone] Ade Lloyd, CLERICAL AND ADMINISTRATIVE WORKERS - FISCAL OFFICER [address] [place] [address] Medication Refill Social History Tobacco Use Types [...] documented as of this encounter Care Teams Roof Slater Relationship Specialty Start Date End Date Le Bell APRN - NP [address] [place] [address] PCP - General Certified Nurse Practitioner 08/04/24 documented as of this encounter
--- OUTSIDE RECORDS SUMMARY | 2025-03-19 10:47 | XMS_ITS | Encounter Summary ---
Author Organization [facility] Address [address], [address] [place] [address] Care Team Providers Care Vacuum Closing Machine Operator Name Role Phone Arabella Ledima Oviedo APRN - SUBCONTRACT MANAGER Primary Care Provider Encounter Details Date Type Department Care Team ([facility] st Contact Info) Description 10/11/2012 PAT Telephone [facility] PRE ADMIT [address] [place], [place] [phone] Amy Wilson, RN Social History Tobacco Use [...] documented as of this encounter Care Teams Vacuum Closing Machine Operator Relationship Specialty Start Date End Date Le Bell, CLINICAL APPLICATION MANAGER - SUBCONTRACT MANAGER [address] [place] [address] PCP - General Certified Nurse Practitioner 08/04/24 documented as of this encounter
--- OUTSIDE RECORDS SUMMARY | 2025-03-19 10:47 | XMS_ITS | Clinical Summary ---
Author Organization [facility] Address [address] [place] [address] Care Team Providers Care Gas Scrubber Operator Name Role Phone Unavailable Primary Care Provider [...]
--- OUTSIDE RECORDS SUMMARY | 2025-03-19 10:47 | XMS_ITS | Encounter Summary ---
Author Organization [facility] Address [address], [address] [place] [address] Care Team Providers Care Wildlife Control Agent Name Role Phone Le Bell APRN - PURCHASING SUPERVISOR Primary Care Provider Encounter Details Date Type Department Care Team (Late st Contact Info) Description 04/22/2016 FollowUp Telephone Encounter [facility] General Surgery [address] [place] [address] Dandy Fulton, RN Social History Tobacco Use [...] documented as of this encounter Care Teams Wildlife Control Agent Relationship Specialty Start Date End Date Le Bell APRN - NP [address] [place] [phone] PCP - General Certified Nurse Practitioner 08/04/24 documented as of this encounter
--- NOTE | 2025-03-19 11:14 | P.CN_ITS ---
Consult Note: HPI Data of Consult Patient: known to practice within the last 3 years Requesting Physician: Jackie Swanson NP Primary Care Provider: Non-Staff Physician, Consult Narrative Reason for consult: chest wall pain Narrative: Casandra Gonzalez a 55 year old female with chronic pain post shingles in 2023. continues to endorse significant multidermatomal left thoracic and chest wall pain unresponsive to topical lidocaine, aspercreme, gabapentin, and not interested in duloxetine or other oral medications due to potential side effects. pt not interested in topical qutenza treatments. pt would like to trial intercostal nerve blocks in consideration of RFA per pt request. cc:: CC: Jackie Swanson NP [facility] Medical History Diabetes mellitus ?E11.9 - Type 2 diabetes mellitus without complications (ICD-10) Social History Smoking status: Never smoker Meds Home Medications and Allergies Home Medications ?Medication ?Instructions ?Recorded ?Confirmed ?Type insulin glargine 100 unit/mL 50 unit subcut BID 03/10/25 History subcutaneous solution (Lantus U-100 Insulin) insulin lispro 100 unit/mL 1 sliding scale dose subcut 12/25/24 03/10/25 History subcutaneous cartridge USEASDIRECTD diazepam 10 mg tablet (Valium) 10 mg PO ONCE PRN anxie ty #1 tab 03/04/25 03/10/25 Rx Allergies Allergy/AdvReac Type Severity Reaction Status Date / Time Sdcpzry-[id number]-DdG Reductase AdvReac Severe Hives Verified 03/10/25 10:21 Inhibitor Exam Constitutional Documenting provider has reviewed patient's vital signs: yes Common normals: no apparent distress, oriented x3, healthy appearing, alert and well nourished General appearance: cooperative [facility] Common normals: normocephalic, hearing grossly normal bilaterally and moist oral mucous membranes Head and scalp: normocephalic Eye Common normals: PERRL Pupil: PERRL Neck & C-Spine Common normals: full ROM General: normal visual inspection Chest Common normals: inspection of chest normal Respiratory Common normals: normal respiratory effort, no retractions and no use of accessory muscles Back & Pelvis Thoracic spine/upper back: ROM limited, pain with ROM, thoracic spinal tenderness and paraspinal muscle tenderness Other: pain following bilateral T5-9 dermatomal pattern post shingles without rash at this time Neuro Common normals: oriented x3 Sensorium/orientation: alert Psych Common normals: mental status grossly normal, thought process normal, cooperative, affect normal, speech normal and activity/motor behavior normal Speech: normal speech Thought process: normal thought process Results Additional Findings Additional findings: If on a controlled substance or opioids, I have checked an [place] report on this patient and there are no aberrancies noted in the prescribing history.??If on a controlled substance or opioid a drug screen was completed and reviewed within the last year, and if there has not been a drug screen completed we ordered one today to monitor higher risk, state monitored pain medication use. As part of providing excellent, safe, comprehensive care, the following was completed at our patient's visit: 1. A medication reconciliation and review to ensure accurate knowledge of current/active medications, including asking our patients to inform us about any [id number]-aogaapc medications or herbal remedies/nutritional supplements/alternative remedies. 2. A review to specifically ensure our patients have had annual screening for screening for depression, screening for tobacco use, and screening for unhealthy alcohol use. For concerning screenings had a discussion with the patient, provided patient education, and recommended follow-up with primary care provider when appropriate. If patient noted with a risk of falling, they received e ducation on strength, gait, and balance training to prevent future risk of falling. Portions of this note may have been carried over from the previous visit and updated as appropriate. Please note this office utilizes paper charting in addition to the electronic medical record. A list of current medications, vitals, and PMH is available there as the clinical staff outside of myself do not have access to [employer] charting during the clinic day operations. As part of providing quality comprehensive care the current medications, vitals, and PMH were reviewed in the paper chart. Assessment and Plan Assessment and Plan (1) Intercostal neuralgia: (2) Post herpetic neuralgia: Plan 55 year old female with moderate to severe rib and chest wall pain post shingles in 2023, as noted above pt has failed to benefit from topical lidocaine, aspercreme, gabapentin and is not interested in additional non opioid medications. she inquired today why we wont prescribe opioids, as discussed she utilizes THC products and that violates our pain treatment agreement. she does partake in her friends medications as reported today. proceed with bilateral T7,8,9 intercostal nerve block under fluoroscopy in consideration of RFA. as discussed with pt she reports numerous dermatome pain patterns and we can only target a few select levels. if pt fails to benefit from intercostal nerve blocks i recommend qutenza. f/u after nerve block
== END 2025-03-19 10:44 | disposition home or self-care (01) ==
LOC: PM 10:43
PROVIDERS: Visit Provider Nurse Practitioner
DX: G58.0 Intercostal neuropathy (principal); B02.29 Other postherpetic nervous system involvement
CPT/HCPCS: G0463

== ENCOUNTER 2025-03-31 07:40 | Day surgery (SDC) | payer OTHER, SELFPAY ==
--- OUTSIDE RECORDS SUMMARY | 2025-03-31 07:54 | XMS_ITS | CCD ---
Author Organization [facility] ion [facility] Care Team Providers Care Geodetic Computator Name Role Phone Roverto Barbour Primary Care Provider Unavailable Primary Care Provider Unavailabl e Hardeep Kavita JIMENEZ Primary Care Provider Hardeep Kavita JIMENEZ Primary Care Provider [phone] Hradeep Kavita JIMENEZ Primary Care Provider [phone] Hardeep Kavita JIMENEZ Primary Care Provider [phone] Unavailable Primary Care Provider Unavailabl e HARDEEP, [...] Unavailable Hardeep Kavita JIMENEZ Primary Care Provider [phone] HardeepKavita wylie CNP Unavailable Unavailable Primary Care Provider Unavailabl e Hardeep [employer] DRIVER - FORMER HANDKavita L Primary Care Provider AME SALDANA Attending Unavailable HARDEEP, KAVITA L Primary Care [...] Care Unavailable HARDEEP, KAVITA L Referring Unavailable RALF, BEKAH Davenport Attending Unavailable HARDEEP, KAVITA L Primary Care [...] Unavailable HARDEEP, KAVITA L Primary Care Unavailable DIGLIO, JUAN Referring Unavailable HARDEEP, KAVITA L Primary Care Unavailable HARDEEP, KAVITA L Referring Unavailable LORNA, VESELIN Attending Unavailable HARDEEP, KAVITA L Primary Care Unavailable LORNA, VESELIN Attending Unavailable HARDEEP, KAVITA L Primary Care Unavailable HARDEEP, KAVITA L Referring Unavailable HARDEEP, KAVITA L Primary Care Unavailable JAVIER BRANHAM Referring Unavailable JAVIER BRANHAM Attending Unavailable HARDEEP, KAVITA L Referring Unavailable Giedraitis , Andrius Patel Attending Unavailable Giedraitis , Andrius Amanda Attending Unavailable Giedraitis , Andrius Patel Attending Unavailable Allergies Allergy Classification Reported Allergen(s) Allergy Type Date of Onset Reaction(s) Facility (13 sources) Penicillins Propensity to adverse reactions to drug 1 Other (See Comments) [place] (20 sources) Pravastatin Drug Allergy 1 [place] (20 sources) Hmg-Coa Reductase Inhibitors (Statins); Translations: [Statins] Allergy to substance 10-06-202 1 Hives / Urticaria [facility] (6 sources) house dust allergenic extract Drug Allergy 1 [facility] Work Phone: (6 sources) Penicillins (Antibiotic) Allergy to substance 1 [facility] Work Phone: (20 sources) Penicillins Propensity to adverse reactions to drug 1 Other (See Comments), Hives / Urticaria [email or web address] Work Phone: (12 sources) gabapentin Drug Allergy 5 [facility] [employer] Medications Current Medications Medication Drug Class(es) Dates Sig (Normalized) Sig (Original) *CPAP SUPPLIES Miscellaneous (15 sources) Start: 06-02-2021 *CPAP SUPPLIES Miscellaneous 06/02/2021 Provider: Kavita Qureshi CNP [id number] 200 actuat albuterol 0.09 mg/actuat metered dose [...] Blood Gluc Receiv er (FreeStyle T[facility]) Device (5 sources) Start: 08-03-2021 Continuous [...] take 2 capsules by mouth once daily [place]-3 Fatty Acids (FISH OIL) 1000 MG CAPS [...] Glucose Meter w/Device Kit 07/04/2024 Provider: Kavita Quershi CNP insulin glargine 100 unt/ml injectable solution [...] Start: 09-09-2024 take 1 tablet by phuong th once daily metoprolol succinate (TOPROL XL) 25 [...] (Stop Taking at Discharge) polyethylene glycol 3350 [id number] mg powder for oral solution (1 source) [...] Oral Tablet 06/10/2024 - 03/03/2025 Provider: Juan CALVIN fluconazole 150 mg oral tablet (11 sources) [...] 30 mg, IntraVENous, ONCE, 1 dose, On 09/09/24 at 0700, Do not administer for more [...] 5% External Patch 12/31/2024 - 03/03/2025 Provider: Kavita Qureshi CNP Start: 09-29-2024 End: 10-29-2024 apply 1 dose transdermal route once daily lidocaine 4 % external patch Place 1 patch onto the skin daily 30 patch 09/29/2024 10/29/2024 Active Start: 09-29-2024 1 patch, Trans DERmal, Administer over 12 Hours, DAILY, First dose on 09/29/24 at 1400, Apply patch to left low back. The physical therapy coordinator's recommendations for the number of patches that can be applied within a 24-hour period varies from 1 to 4 times daily and the duration of application varies from 8 to 24 hours; refer to the physical therapy coordinator's labeling for product-specific recommendations. Start: 04-14-2021 lidocaine 4 % external patch 1 patch lisinopril 2.5 mg oral tablet (20 sources) Angiotensin Converting Enzyme Inhibitor Start: 04-16-2021 End: 09-04-2024 Lisinopril 2.5 MG Oral Tablet 04/16/2021 - 06/06/2024 Provider: Start: 04-15-2021 lisinopril ([place] INIVIL;ZESTRIL) tablet 2.5 mg Start: 04-14-2021 End: [...] Nasal Liquid 10/24/2024 - 03/03/2025 Provider: Kavita Hardeep PREPRINT ANALYST 2 ml orphenadrine citrate 30 mg/ml injection (3 sources) Muscle Relaxant Start: 09-29-2024 End: 09-29-2024 inject 1 dose by intramuscular injection once [...] Tablet 11/27/2024 - 12/31/2024 Provider: Kavita Qureshi PREPRINT ANALYST Problems Active Problems Problem Classification Problem Date [...] Other endocrine disorders (1 source) Hypercortisolism; 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, unspecified] Chronic Other nutritional; endocrine; and [...] Differentialon 02-26-2025 Basophils (Bld) [#/Vol] 0.05 10*3/uL [facility] Basophils/100 WBC (Bld) 1 % 0 - 2 % [facility] Eosinophils (Bld) [#/Vol] 0.06 10*3/uL [facility] Eosinophils/100 WBC (Bld) 1 % 0 - 5 % [facility] Erythrocyte distribution width (RBC) [Ratio] 12.4 % 12.1 - 15.2 % [facility] Hematocrit (Bld) [Volume fraction] 47.7 % High 36.0 - 46.0 % [facility] Hemoglobin (Bld) [Mass/Vol] 16.3 g/dL High 12.0 - 16.0 g/dL [facility] Immature granulocytes (Bld) [#/Vol] 0.01 10*3/uL [facility] Immature granulocytes/100 WBC (Bld) 0 % 0 - 5 % [facility] Interpretation and review of laboratory results Abnormal [facility] Lymphocytes/100 WBC (Bld) 30 % 15 - 40 % [facility] Lymphocytes/100 WBC (Bld) 2.35 % [facility] MCH (RBC) [Entitic mass] 28.3 pg 26.0 - 34.0 pg [facility] MCHC (RBC) [Mass/Vol] 34.2 g/dL 31.0 - 37.0 g/dL [facility] MCV (RBC) [Entitic vol] 82.8 fL 80.0 - 100.0 fL [facility] Monocytes/100 WBC (Bld) 8 % 4 - 8 % [facility] Monocytes/100 WBC (Bld) 0.65 % [facility] Neutrophils/100 WBC (Bld) 60 % 47 - 75 % [facility] Platelet mean volume (Bld) [Entitic vol] 9.7 fL 6.0 - 12.0 fL [facility] Platelets (Bld) [#/Vol] 382 10*3/uL [facility] RBC (Bld) [#/Vol] 5.76 10*6/uL High 4.00 - 5.2 0 m/uL [facility] Segmented neutrophils/100 WBC (Bld) 4.72 % [facility] WBC other (Bld) [#/Vol] 7.8 [facility] CBC with Diffon 02-26-2025 Abs. Basophil 0.05 k/uL Normal 0.00-0.20 [facility] Comment on above: Performed By: #### L IP, MG, CDP, TROPI, CP, TSH ####[facility] [address] [place] [address] Lab Director: Miller Shirley MD#### FT4 ####[facility] [address] [place] [address] Lab Director: Jin Louise MD Abs.Imm.Granulocyte 0.01 k/uL Normal 0.00-0.30 [facility] Comment on above: Performed By: #### L IP, MG, CDP, TROPI, CP, TSH ####[facility] Xda[address] [place], [place] [address])[phone] Director: Miller Shirley MD#### FT4 ####[place] [address] Lab Director: Jin Louise MD Abs.Neutrophil (Seg) 4.72 k/uL Normal 2.5-7.0 [facility] Comment on above: Performed By: #### L IP, MG, CDP, TROPI, CP, TSH ####[facility] Ugp64[address] [place], [place] [address])[phone] Director: Miller Shirley MD#### FT4 ####[place] [address] Lab Director: Jin Louise MD Basophils/100 WBC (Bld) 1 % Normal 0-2 [facility] Comment on above: Performed By: #### L IP, MG, CDP, TROPI, CP, TSH ####[facility] Kmj9237 [place], [place] [address])[phone] Director: Miller Shirley MD#### FT4 ####[place] [address] Lab Director: Jin Louise MD Eosinophils (Bld) [#/Vol] 0.06 10*3/uL Normal 0.00-0.40 [facility] Comment on above: Performed By: #### L IP, MG, CDP, TROPI, CP, TSH ####[facility] Cjt[address] [place] [address] Lab Director: Miller Shirley MD#### FT4 ####[address] [place] [address] Lab Director: Jin Louise MD Eosinophils/100 WBC (Bld) 1 % Normal 0-5 [facility] Comment on above: Performed By: #### L IP, MG, CDP, TROPI, CP, TSH ####[facility] [address]ig[address] [place], [place] [address])[phone] Director: Miller Shirley MD#### FT4 ####[place] [address] Lab Director: Jin Louise MD Erythrocyte distribution width (RBC) [Ratio] 12.4 % Normal 12.1-15.2 [facility] Comment on above: Performed By: #### L IP, MG, CDP, TROPI, CP, TSH ####[facility] Uvl[address] [place], [place] [address])[phone] Director: Miller Shirley MD#### FT4 ####[place] [address] Lab Director: Jin Louise MD Hematocrit (Bld) [Volume fraction] 47.7 % High 36.0-46.0 [facility] Comment on above: Performed By: #### L IP, MG, CDP, TROPI, CP, TSH ####[facility] Zsk8767 [place], [place] [address])[phone] Director: Miller Shirley MD#### FT4 ####[place] [address] Lab Director: Jin Louise MD Hemoglobin (Bld) [Mass/Vol] 16.3 g/dL High 12.0-16.0 [facility] Comment on above: Performed By: #### L IP, MG, CDP, TROPI, CP, TSH ####[facility] [address] [place], [place] [id number] Lab Director: Miller Shirley MD#### FT4 ####[address] [place], [place] 3217808 Lab Director: Jin Louise MD Immature granulocytes/100 WBC (Bld) 0 % Normal 0-5 [facility] Comment on above: Performed By: #### L IP, MG, CDP, TROPI, CP, TSH ####[facility] Zvd[address] [place], [place] 2417390 Lab Director: Miller Shirley MD#### FT4 ####[address] [address] Lab Director: Jin Louise MD Lymphocytes (Bld) [#/Vol] 2.35 10*3/uL Normal 1.00-4.80 [facility] Comment on above: Performed By: #### L IP, MG, CDP, TROPI, CP, TSH ####[facility] Sap[address] [place], [place] 2071290 Lab Director: Miller Shirley MD#### FT4 ####[address] [address] Lab Director: Jin Louise MD Lymphocytes/100 WBC (Bld) 30 % Normal 15-40 [facility] Comment on above: Performed By: #### L IP, MG, CDP, TROPI, CP, TSH ####[facility] Dha[address] [place], [place] 4455890 Lab Director: Miller Shirley MD#### FT4 ####[address] [address] Lab Director: Jin Louise MD MCH (RBC) [Entitic mass] 28.3 pg Normal 26.0-34.0 [facility] Comment on above: Performed By: #### L IP, MG, CDP, TROPI, CP, TSH ####[facility] Vmt[address] [place], [place] [address])[phone] Director: Miller Shirley MD#### FT4 ####[address] [address])[phone] Director: Jin Louise MD MCHC (RBC) [Mass/Vol] 34.2 g/dL Normal 31.0-37.0 [facility] Comment on above: Performed By: #### L IP, MG, CDP, TROPI, CP, TSH ####[facility] Jis[address] [place], [place] [address])[phone] Director: Miller Shirley MD#### FT4 ####[place], [place] [address])[phone] Director: Jin Louise MD MCV (RBC) [Entitic vol] 82.8 fL Normal 80.0-100.0 [facility] Comment on above: Performed By: #### L IP, MG, CDP, TROPI, CP, TSH ####[facility] [address] [place], [place] [address])[phone] Director: Miller Shirley MD#### FT4 ####[place], [place] [address])[phone] Director: Jin Louise MD Monocytes (Bld) [#/Vol] 0.65 10*3/uL Normal 0.00-1.00 [facility] Comment on above: Performed By: #### L IP, MG, CDP, TROPI, CP, TSH ####[facility] [address] [place], [place] [address])[phone] Director: Miller Shirley MD#### FT4 ####[place] [address] Lab Director: Jin Louise MD Monocytes/100 WBC (Bld) 8 % Normal 4-8 [facility] Comment on above: Performed By: #### L IP, MG, CDP, TROPI, CP, TSH ####[facility] [address] [place], [place] [id number])[phone] Director: Miller Shirley MD#### FT4 ####[address] [place] [address] Lab Director: Jin Louise MD Neutrophil (Seg) 60 % Normal 47-75 [facility] Comment on above: Performed By: #### L IP, MG, CDP, TROPI, CP, TSH ####[facility] Uyr[address] [place], [place] [id number])[phone] Director: Miller Shirley MD#### FT4 ####[address] [place] [address] Lab Director: Jin Louise MD Platelet mean volume (Bld) [Entitic vol] 9.7 fL Normal 6.0-12.0 [facility] Comment on above: Performed By: #### L IP, MG, CDP, TROPI, CP, TSH ####[facility] Qsc[address] [place] [address] Lab Director: Miller Shirley MD#### FT4 ####[address] [id number])[phone] Director: Jin Louise MD Platelets (Bld) [#/Vol] 382 10*3/uL Normal 140-450 [facility] Comment on above: Performed By: #### L IP, MG, CDP, TROPI, CP, TSH ####[facility] [address]ok[address] [place], [place] [id number])[phone] Director: Miller Shirley MD#### FT4 ####[address] [address] Lab Director: Jin Louise MD RBC (Bld) [#/Vol] 5.76 10*6/uL High 4.00-5.20 [facility] Comment on above: Performed By: #### L IP, MG, CDP, TROPI, CP, TSH ####[facility] Xvh[address] [place], [place] [address])[phone] Director: Miller Shirley MD#### FT4 ####[facility] [address] [place] [address] Lab Director: Jin Louise MD WBC (Bld) [#/Vol] 7.8 10*3/uL Normal 3.5-11.0 [facility] Comment on above: Performed By: #### L IP, MG, CDP, TROPI, CP, TSH ####[facility] Yyb[address] [place], [place] [address])[phone] Director: Miller Shirley MD#### FT4 ####[address] [address])[phone] Director: Jin Louise MD Comp Metabolic Profon 2024 Albumin [Mass/Vol] 4.6 g/dL Normal 3.5-5.2 [facility] Comment on above: Performed By: #### L IP, MG, CDP, TROPI, CP, TSH ####[facility] Xjb[address] [place], [place] [address])[phone] Director: Miller Shirley MD#### FT4 ####[facility] [address] [place], [place] [address])[phone] Director: Jin Louise MD Albumin/Glob Ratio 1.4 Normal 1.0-2.5 [facility] Comment on above: Performed By: #### L IP, MG, CDP, TROPI, CP, TSH ####[facility] [address] [place], [place] 1187190 lab Director: Miller Shirley MD#### FT4 ####[address] [place], [place] 1497[address] Lab Director: Jin Louise MD Alkaline Phos 115 U/L High 35-104 [facility] Comment on above: Performed By: #### L IP, MG, CDP, TROPI, CP, TSH ####[facility] Etv[address] [place], [place] 314[address] lab Director: Miller Shirley MD#### FT4 ####[address] [phone] Lab Director: Jin Louise MD ALT [Catalytic activity/Vol] 15 U/L Normal 5-33 [facility] Comment on above: Performed By: #### L IP, MG, CDP, TROPI, CP, TSH ####[facility] Avu[address] [place], [place] 3842090 lab Director: Miller Shirley MD#### FT4 ####[address] [address] Lab Director: Jin Louise MD Anion gap [Moles/Vol] 16 mmol/L Normal 9-17 [facility] Comment on above: Performed By: #### L IP, MG, CDP, TROPI, CP, TSH ####[facility] [address] [place], [place] 2491690 Lab Director: Miller Shirley MD#### FT4 ####[address] [place], [place] 5916808 Lab Director: Jin Louise MD AST [Catalytic activity/Vol] 17 U/L Normal <32 [facility] Comment on above: Performed By: #### L IP, MG, CDP, TROPI, CP, TSH ####[facility] [address] [place], [place] 2019[address] lab Director: Miller Shirley MD#### FT4 ####[address] [place] [address] Lab Director: Jin Louise MD Bilirubin [Mass/Vol] 0.8 mg/dL Normal 0.3-1.2 [facility] Comment on above: Performed By: #### L IP, MG, CDP, TROPI, CP, TSH ####[facility] Bir[address] [place], [place] 1428[address] lab Director: Miller Shirley MD#### FT4 ####[address] [address] Lab Director: Jin Louise MD Calcium [Mass/Vol] 10.0 mg/dL Normal 8.6-10.4 [facility] Comment on above: Performed By: #### L IP, MG, CDP, TROPI, CP, TSH ####[facility] Hke[address] [place], [place] 0789590 Lab Director: Miller Shirley MD#### FT4 ####[address] [address] Lab Director: Jin Louise MD Chloride [Moles/Vol] 93 mmol/L Low 98-107 [facility] Comment on above: Performed By: #### L IP, MG, CDP, TROPI, CP, TSH ####[facility] Bvo[address] [place], [place] 5108190 Lab Director: Miller Shirley MD#### FT4 ####[address] [address] Lab Director: Jin Louise MD CO2 [Moles/Vol] 24 mmol/L Normal 20-31 [facility] Comment on above: Performed By: #### L IP, MG, CDP, TROPI, CP, TSH ####[facility] [address] [place], [place] 3307790 Lab Director: Miller Shirley MD#### FT4 ####[address] [place], [place] 4275808 Lab Director: Jin Louise MD Creatinine [Mass/Vol] 0.6 mg/dL Normal 0.5-0.9 [facility] Comment on above: Performed By: #### L IP, MG, CDP, TROPI, CP, TSH ####[facility] Lzm30[address] [place], [place] 2054490 lab Director: Miller Shirley MD#### FT4 ####[address] 1573208 Lab Director: Jin Louise MD GFR/1.73 sq M.predicted among non-blacks MDRD (S/P/Bld) [Vol rate/Area] mL/min/{1.73_m2} Normal >60 [facility] Comment on above: Result Comment: These results [...] L IP, MG, CDP, TROPI, CP, TSH ####[facility] Qnl15[address] [place], [place] 88275[address] Lab Director: Miller Shirley MD#### FT4 ####[address] [place], [place] 456280[address] Lab Director: Jin Louise MD Glucose [Mass/Vol] 293 mg/dL High 70-99 [facility] Comment on above: Performed By: #### L IP, MG, CDP, TROPI, CP, TSH ####[facility] Xak[address] [place] [address] Lab Director: Miller Shirley MD#### FT4 ####[address] [place] [address] Lab Director: Jin Louise MD Potassium [Moles/Vol] 4.1 mmol/L Normal 3.7-5.3 [facility] Comment on above: Performed By: #### L IP, MG, CDP, TROPI, CP, TSH ####[facility] [address]xp[address] [place] [address] Lab Director: Miller Shirley MD#### FT4 ####[address] [address] Lab Director: Jin Louise MD Protein [Mass/Vol] 7.9 g/dL Normal 6.4-8.3 [facility] Comment on above: Performed By: #### L IP, MG, CDP, TROPI, CP, TSH ####[facility] Lnm[address] [place] [address] Lab Director: Miller Shirley MD#### FT4 ####[address] [place] [address] Lab Director: Jin Louise MD Sodium [Moles/Vol] 133 mmol/L Low 135-144 [facility] Comment on above: Performed By: #### L IP, MG, CDP, TROPI, CP, TSH ####[facility] Khv[address] [place] [address] Lab Director: Miller Shirley MD#### FT4 ####[address] [place] [address] Lab Director: Jin Louise MD Urea nitrogen [Mass/Vol] 15 mg/dL Normal 6-20 [facility] Comment on above: Performed By: #### L IP, MG, CDP, TROPI, CP, TSH ####[facility] [address] [place] [address] Lab Director: Miller Shirley MD#### FT4 ####[facility] [address] [place], [place] 7887108 Lab Director: Jin Louise MD Comprehensive Metabolic Pane [facility] 02-26-2025 Albumin [Mass/Vol] 4.6 g/dL 3.5 - 5.2 g/dL [facility] Albumin/Globulin [Mass ratio] 1.4 {ratio} 1.0 - 2.5 [facility] ALP [Catalytic activity/Vol] 115 U/L High 35 - 104 U/L [facility] ALT [Catalytic activity/Vol] 15 U/L 5 - 33 U/L [facility] Anion gap [Moles/Vol] 16 mmol/L 9 - 17 mmol/L [facility] AST [Catalytic activity/Vol] 17 U/L NINF - 32 U/L [facility] Bilirubin [Mass/Vol] 0.8 mg/dL 0.3 - 1 .2 mg/dL [facility] Calcium [Mass/Vol] 10.0 mg/dL 8.6 - 10. 4 mg/dL [facility] Chloride [Moles/Vol] 93 mmol/L Low 98 - 10 7 mmol/L [facility] CO2 [Moles/Vol] 24 mmol/L 20 - 31 mmol/L [facility] Creatinine [Mass/Vol] 0.6 mg/dL 0.5 - 0.9 mg/dL [facility] Est, Glom Filt Rate - PINF [facility] Comment on above: These results [...] 293 mg/dL High 70 - 99 mg/dL [facility] Potassium [Moles/Vol] 4.1 mmol/L 3.7 - 5.3 mmol/L [facility] Protein [Mass/Vol] 7.9 g/dL 6.4 - 8.3 g/dL [facility] Sodium [Moles/Vol] 133 mmol/L Low 135 - 144 mmol/L [facility] Urea nitrogen [Mass/Vol] 15 mg/dL 6 - 20 mg/dL [facility] Laboratory - Chemistry and C hemistry - challengeon 02-26-2025 Albumin [Mass/Vol] 4.6 g/dL (3.5-5.2 ) [facility] Comment on above: Note: Responsible Ob fast food server: [email or web address] AUTOFILE ([id number]) ALT [Catalytic activity/Vol] 15 U/L (5-33 ) [facility] Comment on above: Note: Responsible Ob fast food server: [email or web address] AUTOFILE ([id number]) Anion gap [Moles/Vol] 16 mmol/L (9-17 ) a [facility] Comment on above: Note: Responsible Ob fast food server: [email or web address] AUTOFILE ([id number]) AST [Catalytic activity/Vol] 17 U/L (<32 ) [facility] Comment on above: Note: Responsible Ob fast food server: [email or web address] AUTOFILE ([id number]) Bilirubin [Mass/Vol] 0.8 mg/dL (0.3-1.2 ) [facility] Comment on above: Note: Responsible Ob fast food server: [email or web address] AUTOFILE (5977) Calcium [Mass/Vol] 10.0 mg/dL (8.6-10.4 ) [facility] Comment on above: Note: Responsible Ob fast food server: [email or web address] AUTOFILE (5977) Chloride [Moles/Vol] 93 mmol/L Low (98-107 ) [facility] Comment on above: Note: Responsible Ob fast food server: [email or web address] AUTOFILE (5977) CO2 [Moles/Vol] 24 mmol/L (20-31 ) [facility] Comment on above: Note: Responsible Ob fast food server: [email or web address] AUTOFILE ([id number]) Creatinine [Mass/Vol] 0.6 mg/dL (0.5-0.9 ) [facility] Comment on above: Note: Responsible Ob fast food server: [email or web address] AUTOFILE (5977) GFR/1.73 sq M.predicted among non-blacks MDRD (S/P/Bld) [Vol rate/Area] mL/min/{1.73_m2} (>60 ) [facility] Comment on above: Note: These results [...] Glucose [Mass/Vol] 293 mg/dL High (70-99 ) [facility] Comment on above: Note: Responsible Ob fast food server: [email or web address] AUTOFILE ([id number]) Lipase [Catalytic activity/Vol] 96 U/L High (13-60 ) [facility] Comment on above: Note: Responsible Ob fast food server: [email or web address] AUTOFILE (5977) Magnesium [Mass/Vol] 2.1 mg/dL (1.6-2.6 ) [facility] Comment on above: Note: Responsible Ob fast food server: [email or web address] AUTOFILE (5977) Potassium [Moles/Vol] 4.1 mmol/L (3.7-5.3 ) [facility] Comment on above: Note: Responsible Ob fast food server: [email or web address] AUTOFILE (5977) Protein [Mass/Vol] 7.9 g/dL (6.4-8.3 ) [facility] Comment on above: Note: Responsible Ob fast food server: [email or web address] AUTOFILE (5977) Sodium [Moles/Vol] 133 mmol/L Low (135-144 ) [facility] Comment on above: Note: Responsible Ob fast food server: [email or web address] AUTOFILE (5977) Urea nitrogen [Mass/Vol] 15 mg/dL (6-20 ) [facility] Comment on above: Note: Responsible Ob fast food server: [email or web address] AUTOFILE ([id number]) Laboratory - Hematology and Cell countson 02-26-2025 Basophils/100 WBC (Bld) 1 % (0-2 ) [facility] Comment on above: Note: 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 ([id number]) Eosinophils (Bld) [#/Vol] 0.06 10*3/uL (0.00-0.40 ) [facility] Comment on above: Note: 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 ([id number]) Eosinophils/100 WBC (Bld) 1 % (0-5 ) [facility] Comment on above: Note: 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 (93812) Erythrocyte distribution width (RBC) [Ratio] 12.4 % (12.1-15.2 ) [facility] Comment on above: Note: 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 (76081) Hematocrit (Bld) [Volume fraction] 47.7 % High (36.0-46.0 ) [facility] Comment on above: Note: 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 (27601) Hemoglobin (Bld) [Mass/Vol] 16.3 g/dL High (12.0-16.0 ) [facility] Comment on above: Note: 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 (43147) Immature granulocytes/100 WBC (Bld) 0 % (0-5 ) [facility] Comment on above: Note: 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 (97536) Lymphocytes (Bld) [#/Vol] 2.35 10*3/uL (1.00-4.80 ) [facility] Comment on above: Note: 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 (77506) Lymphocytes/100 WBC (Bld) 30 % (15-40 ) [facility] Comment on above: Note: 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 (10445) MCH (RBC) [Entitic mass] 28.3 pg (26.0-34.0 ) [facility] Comment on above: Note: 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 (02573) MCHC (RBC) [Mass/Vol] 34.2 g/dL (31.0- 37.0 ) [facility] Comment on above: Note: 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 (70059) MCV (RBC) [Entitic vol] 82.8 fL (80.0-100.0 ) [facility] Comment on above: Note: 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 (36017) Monocytes (Bld) [#/Vol] 0.65 10*3/uL (0.00-1.00 ) [facility] Comment on above: Note: 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 (14086) Monocytes/100 WBC (Bld) 8 % (4-8 ) [facility] Comment on above: Note: 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 (86457) Platelet mean volume (Bld) [Entitic vol] 9.7 fL (6.0-12.0 ) [facility] Comment on above: Note: 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 (84782) Platelets (Bld) [#/Vol] 382 10*3/uL (140-450 ) [facility] Comment on above: Note: 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 (70976) RBC (Bld) [#/Vol] 5.76 10*6/uL High (4.00-5.20 ) [facility] Comment on above: Note: 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 (13156) Segmented neutrophils/100 WBC (Bld) 60 % (47-75 ) [facility] Comment on above: Note: 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 (37232) WBC (Bld) [#/Vol] 7.8 10*3/uL (3.5-11.0 ) [facility] Comment on above: Note: 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 (12023) Lipaseon 02-26-2025 Lipase [Catalytic activity/Vol] 96 U/L High 13 - 60 U/L [facility] Lipase [Catalytic activity/Vol] 96 U/L High 13-60 [facility] Comment on above: Performed By: #### L IP, MG, CDP, TROPI, CP, TSH ####[facility] [id number] [place] [place], [place] [address] lab Director: Miller Shirley MD#### FT4 ####[facility] [address] [place] [address] lab Director: Jin Louise MD Magnesiumon 6 Magnesium [Mass/Vol] 2.1 mg/dL 1.6 - 2 .6 mg/dL [facility] Magnesium [Mass/Vol] 2.1 mg/dL Normal 1.6-2.6 [facility] Comment on above: Performed By: #### L IP, MG, CDP, TROPI, CP, TSH ####[facility] [address] [place] [address] lab Director: Miller Shirley MD#### FT4 ####[facility] [address] [place], [place] [id number] lab Director: Jin Louise MD No Panel Informationon 02-26 Interpretation and review of laboratory results Abnormal [facility] Abs. Basophil 0.05 k/uL (0.00-0.20 ) [facility] Comment on above: Note: 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 ([id number]) Abs.Imm.Granulocyte 0.01 k/uL (0.00-0. 30 ) [facility] Comment on above: Note: 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 (90963) Abs.Neutrophil (Seg) 4.72 k/uL (2.5-7.0 ) [facility] Comment on above: Note: 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 (53921) Albumin/Glob Ratio 1.4 (1.0-2.5 ) [facility] Comment on above: Note: Responsible Ob fast food server: TWPUR1 AUTOFILE (5977) Alkaline Phos 115 U/L High (35-104 ) [facility] Comment on above: Note: Responsible Ob fast food server: TWPUR1 AUTOFILE (5977) Reported Physicians See Note [facility] Comment on above: Note: Reported Physi cians:Ordering: BEKAH LANAttending: RALF, JEROMYReferring: Kavita Qureshi Thyroid Stim. Horm. 0.75 uIU/mL (0.27-4. 20 ) [facility] Comment on above: Note: Responsible Ob fast food server: TWPUR1 AUTOFILE (0786) Thyroxine, Free 1.7 ng/dL (0.9-1.7 ) [facility] Comment on above: Note: Responsible Ob fast food server: TVPRO3 AUTOFILE (5786) Troponin, High Sens 18 ng/L High (0-14 ) [facility] Comment on above: Note: High Sensitivi ty Troponin values cannot be compared with other Troponinmethodologies.Responsible Observer: TWPUR1 AUTOFILE (1106) TSHon 02-26-2025 TSH Qn 0.75 m[IU]/L [facility] Thyroid Stim. Horm.on 2024 Thyroid Stim. Horm. 0.75 uIU/mL Normal 0.27-4.20 [facility] Comment on above: Performed By: #### L IP, MG, CDP, TROPI, CP, TSH ####[facility] [address] [place] [address] lab Director: Miller Shirley MD#### FT4 ####[address] [place] [address] lab Director: Jin Louise MD Thyroxine, Freeon 02-26-2025 Thyroxine, Free 1.7 ng/dL Normal 0.9-1.7 [facility] Comment on above: Performed By: #### L IP, MG, CDP, TROPI, CP, TSH ####[facility] [address] [place] [address] lab Director: Miller Shirley MD#### FT4 ####[address] [id number] lab Director: Jin Louise MD Troponinon 02-26-2025 Troponin I.cardiac High sensitivity method [Mass/Vol] 18 ng/L High 0 - 14 ng/L [facility] Comment on above: High Sensitivity Tro ponin values cannot be compared with other Troponin methodologies. Troponin, High Sens 18 ng/L High 0-14 [facility] Comment on above: Result Comment: High Sensitivity Troponin values cannot be compared with other Troponin methodologies. Performed By: #### L IP, MG, CDP, TROPI, CP, TSH ####[facility] [address] [place] [address] Lab Director: Miller Shirley MD#### FT4 ####[facility] [address] [place] [address] Lab Director: Jin Louise MD MRI LUMBAR SPINE [...] Juan Denney MD 12/09/24 Final result Normal [facility] Basic Metabolic Panelon 08-18 Anion gap [Moles/Vol] 13 mmol/L 9 - 17 mmol/L [facility] Calcium [Mass/Vol] 9.8 mg/dL 8.6 - 10. 4 mg/dL [facility] Chloride [Moles/Vol] 95 mmol/L Low 98 - 10 7 mmol/L [facility] CO2 [Moles/Vol] 26 mmol/L 20 - 31 mmol/L [facility] Creatinine [Mass/Vol] 0.5 mg/dL 0.5 - 0.9 mg/dL [facility] Est, Gloyu Matat Rate - PINF [facility] Comment on above: These results [...] 215 mg/dL High 70 - 99 mg/dL [facility] Potassium [Moles/Vol] 4.2 mmol/L 3.7 - 5.3 mmol/L [facility] Sodium [Moles/Vol] 134 mmol/L Low 135 - 144 mmol/L [facility] Urea nitrogen [Mass/Vol] 11 mg/dL 6 - 20 mg/dL [facility] Basic Metabolic Profon 09-09 -2024 Anion gap [Moles/Vol] 13 mmol/L Normal 9-17 [facility] Comment on above: Performed By: #### T LISSET SARGENT, BMP, CDP, BNP #### [facility] [address] [place] [address] Store Promoter: Miller Shirley MD Calcium [Mass/Vol] 9.8 mg/dL Normal 8.6-10.4 [facility] Comment on above: Performed By: #### T ROPI, DIME, BMP, CDP, BNP #### [facility] [address] [place], [place] [id number] Store Promoter: Miller Shirley MD Chloride [Moles/Vol] 95 mmol/L Low 98-107 [facility] Comment on above: Performed By: #### T ROPI, DIME, BMP, CDP, BNP #### [facility] [address] [place] [address] Store Promoter: Miller Shirley MD CO2 [Moles/Vol] 26 mmol/L Normal 20-31 [facility] Comment on above: Performed By: #### T ROPI, DIME, BMP, CDP, BNP #### [facility] [address] [place] [address] Store Promoter: Miller Shirley MD Creatinine [Mass/Vol] 0.5 mg/dL Normal 0.5-0.9 [facility] Comment on above: Performed By: #### T ROPI, DIME, BMP, CDP, BNP #### [facility] [address] [place] [address] Store Promoter: Miller Shirley MD GFR/1.73 sq M.predicted among non-blacks MDRD (S/P/Bld) [Vol rate/Area] mL/min/{1.73_m2} Normal >60 [facility] Comment on above: Result Comment: These results [...] T ROPI, DIME, BMP, CDP, BNP #### [facility] [address] [place], [place] [id number] Store Promoter: Miller Shirley MD Glucose [Mass/Vol] 215 mg/dL High 70-99 [facility] Comment on above: Performed By: #### T DEYAI, DIME, BMP, CDP, BNP #### [facility] [address] [place], [place] [id number] Store Promoter: Miller Shirley MD Potassium [Moles/Vol] 4.2 mmol/L Normal 3.7-5.3 [facility] Comment on above: Performed By: #### T ROSETTA, DIME, BMP, CDP, BNP #### [facility] [address] [place] [address] Store Promoter: Miller Shirley MD Sodium [Moles/Vol] 134 mmol/L Low 135-144 [facility] Comment on above: Performed By: #### T JOEL SARGENTE, BMP, CDP, BNP #### [facility] [address] [place] [id number] Store Promoter: Miller Shirley MD Urea nitrogen [Mass/Vol] 11 mg/dL Normal 6-20 [facility] Comment on above: Performed By: #### T ROSETTA, JOELE, BMP, CDP, BNP #### [facility] [address] [place] [id number] Store Promoter: Miller Shirley MD Brain Natri. Peptideon 09-09 Natriuretic peptide B (Bld) [Mass/Vol] 228 pg/mL Normal <300 [facility] Comment on above: Result Comment: An a ge-independent cutoff point of 300 pg/ml has a 98% negative predictive value excluding acute heart failure. Performed By: #### T ROSETTA, DIME, BMP, CDP, BNP #### [facility] [address] [place], [place] [id number] Store Promoter: Miller Shirley MD Brain Natriuretic Peptideon 09-09-2024 Natriuretic peptide B (Bld) [Mass/Vol] 228 pg/mL NINF - 300 pg/mL [facility] Comment on above: An age-independent c utoff point of 300 pg/ml has a 98% negative predictive value excluding acute heart failure. CBC with Auto Differentialon 09-09-2024 Basophils (Bld) [#/Vol] 0.02 10*3/uL [facility] Basophils/100 WBC (Bld) 0 % 0 - 2 % [facility] Eosinophils (Bld) [#/Vol] 0.06 10*3/uL [facility] Eosinophils/100 WBC (Bld) 1 % 0 - 5 % [facility] Erythrocyte distribution width (RBC) [Ratio] 12.4 % 12.1 - 15.2 % [facility] Hematocrit (Bld) [Volume fraction] 44.8 % 36.0 - 46.0 % [facility] Hemoglobin (Bld) [Mass/Vol] 15.2 g/dL 12.0 - 16.0 g/dL [facility] Immature granulocytes (Bld) [#/Vol] 0.02 10*3/uL [facility] Immature granulocytes/100 WBC (Bld) 0 % 0 - 5 % [facility] Interpretation and review of laboratory results Abnormal [facility] Lymphocytes/100 WBC (Bld) 28 % 15 - 40 % [facility] Lymphocytes/100 WBC (Bld) 2.07 % [facility] MCH (RBC) [Entitic mass] 28.6 pg 26.0 - 34.0 pg [facility] MCHC (RBC) [Mass/Vol] 33.9 g/dL 31.0 - 37.0 g/dL [facility] MCV (RBC) [Entitic vol] 84.4 fL 80.0 - 100.0 fL [facility] Monocytes/100 WBC (Bld) 8 % 4 - 8 % [facility] Monocytes/100 WBC (Bld) 0.60 % [facility] Neutrophils/100 WBC (Bld) 63 % 47 - 75 % [facility] Platelet mean volume (Bld) [Entitic vol] 9.7 fL 6.0 - 12.0 fL [facility] Platelets (Bld) [#/Vol] 340 10*3/uL [facility] RBC (Bld) [#/Vol] 5.31 10*6/uL High 4.00 - 5.2 0 m/uL [facility] Segmented neutrophils/100 WBC (Bld) 4.68 % [facility] WBC other (Bld) [#/Vol] 7.5 [facility] CBC with Diffon 09-09-2024 Abs. Basophil 0.02 k/uL Normal 0.00-0.20 [facility] Comment on above: Performed By: #### T ROPI, DIME, BMP, CDP, BNP #### [facility] [address] [place] [address] Store Promoter: Miller Shirley MD Abs.Imm.Granulocyte 0.02 k/uL Normal 0.00-0.30 [facility] Comment on above: Performed By: #### T ROPI, DIME, BMP, CDP, BNP #### [facility] [address] [place] [address] Store Promoter: Miller Shirley MD Abs.Neutrophil (Seg) 4.68 k/uL Normal 2.5-7.0 [facility] Comment on above: Performed By: #### T ROPI, DIME, BMP, CDP, BNP #### [facility] [address] [place] [address] Store Promoter: Miller Shirley MD Basophils/100 WBC (Bld) 0 % Normal 0-2 [facility] Comment on above: Performed By: #### T ROPI, DIME, BMP, CDP, BNP #### [facility] [address] [place] [address] Store Promoter: Miller Shirley MD Eosinophils (Bld) [#/Vol] 0.06 10*3/uL Normal 0.00-0.40 [facility] Comment on above: Performed By: #### T ROPI, DIME, BMP, CDP, BNP #### [facility] [address] [place], [place] [address] Store Promoter: Miller Shirley MD Eosinophils/100 WBC (Bld) 1 % Normal 0-5 [facility] Comment on above: Performed By: #### T ROPI, DIME, BMP, CDP, BNP #### [facility] [address] [place] [id number] Store Promoter: Miller Shirley MD Erythrocyte distribution width (RBC) [Ratio] 12.4 % Normal 12.1-15.2 [facility] Comment on above: Performed By: #### T ROPI, DIME, BMP, CDP, BNP #### [facility] [address] [place] [address] Store Promoter: Miller Shirley MD Hematocrit (Bld) [Volume fraction] 44.8 % Normal 36.0-46.0 [facility] Comment on above: Performed By: #### T ROPI, DIME, BMP, CDP, BNP #### [facility] [address] [place] [address] Store Promoter: Miller Shirley MD Hemoglobin (Bld) [Mass/Vol] 15.2 g/dL Normal 12.0-16.0 [facility] Comment on above: Performed By: #### T ROPI, DIME, BMP, CDP, BNP #### [facility] [address] [place] [id number] Store Promoter: Miller Shirley MD Immature granulocytes/100 WBC (Bld) 0 % Normal 0-5 [facility] Comment on above: Performed By: #### T ROPI, DIME, BMP, CDP, BNP #### [facility] [address] [place] [id number] Store Promoter: Miller Shirley MD Lymphocytes (Bld) [#/Vol] 2.07 10*3/uL Normal 1.00-4.80 [facility] Comment on above: Performed By: #### T ROPI, DIME, BMP, CDP, BNP #### [facility] [address] [place] [id number] Store Promoter: Miller Shirley MD Lymphocytes/100 WBC (Bld) 28 % Normal 15-40 [facility] Comment on above: Performed By: #### T ROPI, DIME, BMP, CDP, BNP #### [facility] [address] [place] [address] Store Promoter: Miller Shirley MD MCH (RBC) [Entitic mass] 28.6 pg Normal 26.0-34.0 [facility] Comment on above: Performed By: #### T ROPI, DIME, BMP, CDP, BNP #### [facility] [address] [place] [address] Store Promoter: Miller Shirley MD MCHC (RBC) [Mass/Vol] 33.9 g/dL Normal 31.0-37.0 [facility] Comment on above: Performed By: #### T ROPI, DIME, BMP, CDP, BNP #### [facility] [address] [place] [address] Store Promoter: Miller Shirley MD MCV (RBC) [Entitic vol] 84.4 fL Normal 80.0-100.0 [facility] Comment on above: Performed By: #### T ROPI, DIME, BMP, CDP, BNP #### [facility] [address] [place] [address] Store Promoter: Miller Shirley MD Monocytes (Bld) [#/Vol] 0.60 10*3/uL Normal 0.00-1.00 [facility] Comment on above: Performed By: #### T ROPI, DIME, BMP, CDP, BNP #### [facility] [address] [place] [id number] Store Promoter: Miller Shirley MD Monocytes/100 WBC (Bld) 8 % Normal 4-8 [facility] Comment on above: Performed By: #### T ROPI, DIME, BMP, CDP, BNP #### [facility] [address] [place], [place] [id number] [phone] Store Promoter: Miller Shirley MD Neutrophil (Seg) 63 % Normal 47-75 [facility] Comment on above: Performed By: #### T ROPI, DIME, BMP, CDP, BNP #### [facility] [address] [place] [address] Store Promoter: Miller Shirley MD Platelet mean volume (Bld) [Entitic vol] 9.7 fL Normal 6.0-12.0 [facility] Comment on above: Performed By: #### T ROPI, DIME, BMP, CDP, BNP #### [facility] [address] [place], [place] [phone] Store Promoter: Miller Shirley MD Platelets (Bld) [#/Vol] 340 10*3/uL Normal 140-450 [facility] Comment on above: Performed By: #### T ROPI, DIME, BMP, CDP, BNP #### [facility] [address] [place], [place] [phone] ([phone]) Store Promoter: Miller Shirley MD RBC (Bld) [#/Vol] 5.31 10*6/uL High 4.00-5.20 [facility] Comment on above: Performed By: #### T ROPI, DIME, BMP, CDP, BNP #### [facility] [address] [place], [place] [id number] Store Promoter: Miller Shirley MD WBC (Bld) [#/Vol] 7.5 10*3/uL Normal 3.5-11.0 [facility] Comment on above: Performed By: #### T ROPI, DIME, BMP, CDP, BNP #### [facility] [address] [place] [address] Store Promoter: Miller Shirley MD Cult, Bloodon 09-09-2024 Cult, Blood Specimen Description .BLOOD Special Requests 20ML LAC Culture NO GROWTH 7 DAYS Report Status FINAL 09/09/2024 Normal [facility] Comment on above: Performed By: #### L IP, LIVP, MG, BMP, TROPI, CDP #### [facility] [address] [place] [address] Store Promoter: Miller Shirley MD D-Dimer Teston 09-09-2024 D-Dimer Test <0.27 Normal 0.00-0.59 [facility] Comment on above: Result Comment: When [...] T ROPI, DIME, BMP, CDP, BNP #### [facility] [address] [place], [place] [phone] Store Promoter: Miller Shirley MD D-Dimer, Quantitativeon 08-18 Fibrin D-dimer FEU (PPP) [Mass/Vol] [facility] Comment on above: When combined with a [...] more prevalent in patients with distal DVT. [facility] EKG 12 Leadon 09-09-2024 Atrial Rate 123 BPM [facility] P [place] 75 degrees [facility] P-R Interval 156 ms [facility] Q-T Interval 308 ms [facility] QRS Duration 66 ms [facility] [employer] [facility] QTc Calculation (Bazett) 440 ms [facility] R [place] 72 degrees [facility] T [place] 104 degrees [facility] Ventricular Rate [address] [facility] Sinus tachycardia Anterior infarct (cited on or before 13-APR-2021) Nonspecific ST & T wave changes Abnormal [facility] Roverto Barbour MD - 09/09/2024 Sinus tachycardia Anterior infarct (cited on or before 13-APR-2021) Nonspecific ST & T wave changes Abnormal ECG [facility] Laboratory - Chemistry and C hemistry - challengeon 09-09-2024 Anion gap [Moles/Vol] 13 mmol/L (9-17 ) [facility] Comment on above: Note: Responsible Ob fast food server: TWPUR1 AUTOFILE ([id number]) Calcium [Mass/Vol] 9.8 mg/dL (8.6-10.4 ) [facility] Comment on above: Note: Responsible Ob fast food server: TWPUR1 AUTOFILE (5977) Chloride [Moles/Vol] 95 mmol/L Low (98-107 ) [facility] Comment on above: Note: Responsible Ob fast food server: TWPUR1 AUTOFILE (5977) CO2 [Moles/Vol] 26 mmol/L (20-31 ) [facility] Comment on above: Note: Responsible Ob fast food server: TWPUR1 AUTOFILE (5977) Creatinine [Mass/Vol] 0.5 mg/dL (0.5-0.9 ) [facility] Comment on above: Note: Responsible Ob fast food server: TWPUR1 AUTOFILE (5977) GFR/1.73 sq M.predicted among non-blacks MDRD (S/P/Bld) [Vol rate/Area] mL/min/{1.73_m2} (>60 ) [facility] Comment on above: Note: These results [...] Glucose [Mass/Vol] 215 mg/dL High (70-99 ) [facility] Comment on above: Note: Responsible Ob fast food server: TWPUR1 AUTOFILE ([id number]) Natriuretic peptide B (Bld) [Mass/Vol] 228 pg/mL (<300 ) [facility] Comment on above: Note: An age-indepen dent cutoff point of 300 pg/ml has a 98% negative predictive valueexcluding acute heart failure.Responsible Observer: TWPUR1 AUTOFILE ([id number]) Potassium [Moles/Vol] 4.2 mmol/L (3.7-5.3 ) [facility] Comment on above: Note: Responsible Ob fast food server: TWPUR1 AUTOFILE (5977) Sodium [Moles/Vol] 134 mmol/L Low (135-144 ) [facility] Comment on above: Note: Responsible Ob fast food server: TWPUR1 AUTOFILE (5977) Urea nitrogen [Mass/Vol] 11 mg/dL (6-20 ) [facility] Comment on above: Note: Responsible Ob fast food server: TWPUR1 AUTOFILE (5977) Laboratory - Hematology and Cell countson 09-09-2024 Basophils/100 WBC (Bld) 0 % (0-2 ) [facility] Comment on above: Note: 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 (70984) Eosinophils (Bld) [#/Vol] 0.06 10*3/uL (0.00-0.40 ) [facility] Comment on above: Note: 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 (53051) Eosinophils/100 WBC (Bld) 1 % (0-5 ) [facility] Comment on above: Note: 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 (73035) Erythrocyte distribution width (RBC) [Ratio] 12.4 % (12.1-15.2 ) [facility] Comment on above: Note: 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 (39513) Hematocrit (Bld) [Volume fraction] 44.8 % (36.0-46.0 ) [facility] Comment on above: Note: 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 (18251) Hemoglobin (Bld) [Mass/Vol] 15.2 g/dL (12.0-16.0 ) [facility] Comment on above: Note: 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 (15225) Immature granulocytes/100 WBC (Bld) 0 % (0-5 ) [facility] Comment on above: Note: 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 (10832) Lymphocytes (Bld) [#/Vol] 2.07 10*3/uL (1.00-4.80 ) [facility] Comment on above: Note: 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 (09773) Lymphocytes/100 WBC (Bld) 28 % (15-40 ) [facility] Comment on above: Note: 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 (70146) MCH (RBC) [Entitic mass] 28.6 pg (26.0-34.0 ) [facility] Comment on above: Note: 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 (81521) MCHC (RBC) [Mass/Vol] 33.9 g/dL (31.0- 37.0 ) [facility] Comment on above: Note: 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 (42788) MCV (RBC) [Entitic vol] 84.4 fL (80.0-100.0 ) [facility] Comment on above: Note: 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 ([id number]) Monocytes (Bld) [#/Vol] 0.60 10*3/uL (0.00-1.00 ) [facility] Comment on above: Note: 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 ([id number]) Monocytes/100 WBC (Bld) 8 % (4-8 ) [facility] Comment on above: Note: 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 ([id number]) Platelet mean volume (Bld) [Entitic vol] 9.7 fL (6.0-12.0 ) [facility] Comment on above: Note: 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 ([id number]) Platelets (Bld) [#/Vol] 340 10*3/uL (140-450 ) [facility] Comment on above: Note: 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 ([id number]) RBC (Bld) [#/Vol] 5.31 10*6/uL High (4.00-5.20 ) [facility] Comment on above: Note: 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 ([id number]) Segmented neutrophils/100 WBC (Bld) 63 % (47-75 ) [facility] Comment on above: Note: 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 ([id number]) WBC (Bld) [#/Vol] 7.5 10*3/uL (3.5-11.0 ) [facility] Comment on above: Note: 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 ([id number]) No Panel Informationon 09-09 Interpretation and review of laboratory results Abnormal [facility] Abs. Basophil 0.02 k/uL (0.00-0.20 ) [facility] Comment on above: Note: 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 ([id number]) Abs.Imm.Granulocyte 0.02 k/uL (0.00-0. 30 ) [facility] Comment on above: Note: 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 ([id number]) Abs.Neutrophil (Seg) 4.68 k/uL (2.5-7.0 ) [facility] Comment on above: Note: 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 ([id number]) D-Dimer Test <0.27 ug/mL_FEU (0.00-0.59 ) [facility] Comment on above: Note: When combined [...] patients withdistal DVT.Responsible Observer: UMM Hwang TOÑO ([id number]) Reported Physicians See Note [facility] Comment on above: Note: Reported Physi cians:Ordering: LORNA, VESELINAttending: LORNA, VESELINReferring: Kavita Qureshi Troponin, High Sens 18 ng/L High (0-14 ) [facility] Comment on above: Note: High Sensitivi ty Troponin values cannot be compared with other Troponinmethodologies.Responsible Observer: CORA AUTOFILE ([id number]) Troponinon 09-09-2024 Troponin I.cardiac High sensitivity method [Mass/Vol] 18 ng/L High 0 - 14 ng/L [facility] Comment on above: High Sensitivity Tro ponin values cannot be compared with other Troponin methodologies. Troponin, High Sens 18 ng/L High 0-14 [facility] Comment on above: Result Comment: High Sensitivity Troponin values cannot be compared with other Troponin methodologies. Performed By: #### T ROSETTA, LISSET, BMP, CDP, BNP #### [facility] [address] [place] [address] Store Promoter: Miller Shirley MD XR CHEST (2 VW)on [...] Brijesh Lozoya MD 09/09/24 Final result Normal [facility] XR Chest 2 Viewson 1. No acute findings to account for patient's symptoms. 2. Stable density within lateral left midlung favoring benign etiology; possible granuloma. 3. Sclerotic focus within lateral right humeral head. This area was not included on prior studies. Consider nonemergent right shoulder radiographs. [facility] EXAMINATION: XR CHES T (2 VW) [...] aspect of right humeral head. OTHER: Negative. [facility] Brijesh Lozoya MD - 09/09/2024 EXAMINATION: [...] prior studies. Consider nonemergent right shoulder radiographs. [facility] Radiology Study observation (narrative) [facility] XR Chest 2 ViewsOrdered By: Brijesh Lozoya on 09-09-2024 [facility] CBCon 09-04-2024 Erythrocyte distribution width (RBC) [Ratio] 11.9 % Low 12.1 - 15.2 % [facility] Hematocrit (Bld) [Volume fraction] 44.9 % 36.0 - 46.0 % [facility] Hemoglobin (Bld) [Mass/Vol] 15.8 g/dL 12.0 - 16.0 g/dL [facility] Interpretation and review of laboratory results Abnormal [facility] MCH (RBC) [Entitic mass] 28.8 pg 26.0 - 34.0 pg [facility] MCHC (RBC) [Mass/Vol] 35.2 g/dL 31.0 - 37.0 g/dL [facility] MCV (RBC) [Entitic vol] 81.8 fL 80.0 - 100.0 fL [facility] Platelet mean volume (Bld) [Entitic vol] 9.7 fL 6.0 - 12.0 fL [facility] Platelets (Bld) [#/Vol] 354 10*3/uL [facility] RBC (Bld) [#/Vol] 5.49 10*6/uL High 4.00 - 5.2 0 m/uL [facility] WBC other (Bld) [#/Vol] 6.4 [facility] Erythrocyte distribution width (RBC) [Ratio] 11.9 % Low 12.1-15.2 [facility] Comment on above: Performed By: #### T ROPI, CBC, LACTIC, CP, DIME ####[facility] [address] [place] [address] lab Director: Miller Shirley MD Hematocrit (Bld) [Volume fraction] 44.9 % Normal 36.0-46.0 [facility] Comment on above: Performed By: #### T ROPI, CBC, LACTIC, CP, DIME ####[facility] [address] [place] [address] lab Director: Miller Shirley MD Hemoglobin (Bld) [Mass/Vol] 15.8 g/dL Normal 12.0-16.0 [facility] Comment on above: Performed By: #### T ROPI, CBC, LACTIC, CP, DIME ####[facility] [address] [place] [address] Lab Director: Miller Shirley MD MCH (RBC) [Entitic mass] 28.8 pg Normal 26.0-34.0 [facility] Comment on above: Performed By: #### T ROPI, CBC, LACTIC, CP, DIME ####[facility] [address] [place] [address] Lab Director: Miller Shirley MD MCHC (RBC) [Mass/Vol] 35.2 g/dL Normal 31.0-37.0 [facility] Comment on above: Performed By: #### T ROPI, CBC, LACTIC, CP, DIME ####[facility] [address] [place] [address] lab Director: Miller Shirley MD MCV (RBC) [Entitic vol] 81.8 fL Normal 80.0-100.0 [facility] Comment on above: Performed By: #### T ROPI, CBC, LACTIC, CP, DIME ####[facility] [id number] [place] [address] Lab Director: Miller Shirley MD Platelet mean volume (Bld) [Entitic vol] 9.7 fL Normal 6.0-12.0 [facility] Comment on above: Performed By: #### T ROPI, CBC, LACTIC, CP, DIME ####[facility] [address] [place] [address] Lab Director: Miller Shirley MD Platelets (Bld) [#/Vol] 354 10*3/uL Normal 140-450 [facility] Comment on above: Performed By: #### T ROPI, CBC, LACTIC, CP, DIME ####[facility] [id number] [place] [address] Lab Director: Miller Shirley MD RBC (Bld) [#/Vol] 5.49 10*6/uL High 4.00-5.20 [facility] Comment on above: Performed By: #### T ROPI, CBC, LACTIC, CP, DIME ####[facility] [id number] [place], [place] [id number])[phone] Director: Miller Shirley MD WBC (Bld) [#/Vol] 6.4 10*3/uL Normal 3.5-11.0 [facility] Comment on above: Performed By: #### T ROPI, CBC, LACTIC, CP, DIME ####[facility] [address], [place] [id number])[phone] Director: Millre Shirley MD Comp Metabolic Profon 2024 Albumin [Mass/Vol] 4.0 g/dL Normal 3.5-5.2 [facility] Comment on above: Performed By: #### T ROPI, CBC, LACTIC, CP, DIME ####[facility] [id number], [place] [phone])[phone] Director: Miller Shirley MD Albumin/Glob Ratio 1.5 Normal 1.0-2.5 [facility] Comment on above: Performed By: #### T ROPI, CBC, LACTIC, CP, DIME ####[facility] [id number], [place] [id number])[phone] Director: Miller Shirley MD Alkaline Phos 99 U/L Normal 35-104 [facility] Comment on above: Performed By: #### T ROPI, CBC, LACTIC, CP, DIME ####[facility] [id number] [place], [place] [id number] Director: Miller Shirley MD ALT [Catalytic activity/Vol] 13 U/L Normal 5-33 [facility] Comment on above: Performed By: #### T ROPI, CBC, LACTIC, CP, DIME ####[facility] [id number] [place], [place] [phone])[phone] Director: Miller Shirley MD Anion gap [Moles/Vol] 12 mmol/L Normal 9-17 [facility] Comment on above: Performed By: #### T ROPI, CBC, LACTIC, CP, DIME ####[facility] [address] [place] [address] lab Director: Miller Shirley MD AST [Catalytic activity/Vol] 14 U/L Normal <32 [facility] Comment on above: Performed By: #### T ROPI, CBC, LACTIC, CP, DIME ####[facility] [address] [place] [address] lab Director: Miller Shirley MD Bilirubin [Mass/Vol] 0.3 mg/dL Normal 0.3-1.2 [facility] Comment on above: Performed By: #### T ROPI, CBC, LACTIC, CP, DIME ####[facility] [address] [place] [address] lab Director: Miller Shirley MD Calcium [Mass/Vol] 9.0 mg/dL Normal 8.6-10.4 [facility] Comment on above: Performed By: #### T ROPI, CBC, LACTIC, CP, DIME ####[facility] [address] [place] [address] Lab Director: Miller Shirley MD Chloride [Moles/Vol] 96 mmol/L Low 98-107 [facility] Comment on above: Performed By: #### T ROPI, CBC, LACTIC, CP, DIME ####[facility] [address] [place] [address] Lab Director: Miller Shirley MD CO2 [Moles/Vol] 24 mmol/L Normal 20-31 [facility] Comment on above: Performed By: #### T ROPI, CBC, LACTIC, CP, DIME ####[facility] [address] [place] [address] lab Director: Miller Shirley MD Creatinine [Mass/Vol] 0.4 mg/dL Low 0.5-0.9 [facility] Comment on above: Performed By: #### T ROPI, CBC, LACTIC, CP, DIME ####[facility] [address] [place] [address] lab Director: Miller Shirley MD GFR/1.73 sq M.predicted among non-blacks MDRD (S/P/Bld) [Vol rate/Area] mL/min/{1.73_m2} Normal >60 [facility] Comment on above: Result Comment: These results [...] #### T DEYAI, CBC, LACTIC, CP, DIME ####[facility] [address] [place] [address] lab Director: Miller Shirley MD Glucose [Mass/Vol] 310 mg/dL High 70-99 [facility] Comment on above: Performed By: #### T DEYAI, CBC, LACTIC, CP, DIME ####[facility] [address] [place] [address] lab Director: Miller Shirley MD Potassium [Moles/Vol] 4.1 mmol/L Normal 3.7-5.3 [facility] Comment on above: Performed By: #### T ROPI, CBC, LACTIC, CP, DIME ####[facility] [address] [place] [address] lab Director: Miller Shirley MD Protein [Mass/Vol] 6.6 g/dL Normal 6.4-8.3 [facility] Comment on above: Performed By: #### T ROPI, CBC, LACTIC, CP, DIME ####[facility] [address] [place], [place] [id number] lab Director: Miller Shirley MD Sodium [Moles/Vol] 132 mmol/L Low 135-144 [facility] Comment on above: Performed By: #### T ROPI, CBC, LACTIC, CP, DIME ####[facility] [address] [place], [place] [id number] lab Director: Miller Shirley MD Urea nitrogen [Mass/Vol] 13 mg/dL Normal 6-20 [facility] Comment on above: Performed By: #### T DEYAI, CBC, LACTIC, CP, DIME ####[facility] [address] [place], [place] [id number] lab Director: Miller Shirley MD Comprehensive Metabolic Pane [facility] 09-04-2024 Albumin [Mass/Vol] 4.0 g/dL 3.5 - 5.2 g/dL [facility] Albumin/Globulin [Mass ratio] 1.5 {ratio} 1.0 - 2.5 [facility] ALP [Catalytic activity/Vol] 99 U/L 35 - 104 U/L [facility] ALT [Catalytic activity/Vol] 13 U/L 5 - 33 U/L [facility] Anion gap [Moles/Vol] 12 mmol/L 9 - 17 mmol/L [facility] AST [Catalytic activity/Vol] 14 U/L NINF - 32 U/L [facility] Bilirubin [Mass/Vol] 0.3 mg/dL 0.3 - 1 .2 mg/dL [facility] Calcium [Mass/Vol] 9.0 mg/dL 8.6 - 10. 4 mg/dL [facility] Chloride [Moles/Vol] 96 mmol/L Low 98 - 10 7 mmol/L [facility] CO2 [Moles/Vol] 24 mmol/L 20 - 31 mmol/L [facility] Creatinine [Mass/Vol] 0.4 mg/dL Low 0.5 - 0.9 mg/dL [facility]it Krueger [facility] Comment on above: These results [...] 310 mg/dL High 70 - 99 mg/dL [facility] Interpretation and review of laboratory results Abnormal [facility] Potassium [Moles/Vol] 4.1 mmol/L 3.7 - 5.3 mmol/L [facility] Protein [Mass/Vol] 6.6 g/dL 6.4 - 8.3 g/dL [facility] Sodium [Moles/Vol] 132 mmol/L Low 135 - 144 mmol/L [facility] Urea nitrogen [Mass/Vol] 13 mg/dL 6 - 20 mg/dL [facility] D-Dimer Teston 09-04-2024 D-Dimer Test <0.27 Normal 0.00-0.59 [facility] Comment on above: Result Comment: When [...] #### T ROPI, CBC, LACTIC, CP, DIME ####[facility] [address] [place] [address] lab Director: Miller Shirley MD D-Dimer, Quantitativeon 08-17 Fibrin D-dimer FEU (PPP) [Mass/Vol] [facility] Comment on above: When combined with [...] more prevalent in patients with distal DVT. [facility] Laboratory - Chemistry and C hemistry - challengeon 09-04-2024 Ketones Ql (U) Negative (NEG ) [facility] Comment on above: Note: Responsible Ob fast food server: SAMIRA HwangKristin WATERMAN ([id number]) Albumin [Mass/Vol] 4.0 g/dL (3.5-5.2 ) [facility] Comment on above: Note: Responsible Ob fast food server: [id number] AUTOFILE ([id number]) ALT [Catalytic activity/Vol] 13 U/L (5-33 ) [facility] Comment on above: Note: Responsible Ob fast food server: TWPUR1 AUTOFILE ([id number]) Anion gap [Moles/Vol] 12 mmol/L (9-17 ) [facility] Comment on above: Note: Responsible Ob fast food server: TWPUR1 AUTOFILE ([id number]) AST [Catalytic activity/Vol] 14 U/L (<32 ) [facility] Comment on above: Note: Responsible Ob fast food server: TWPUR1 AUTOFILE ([id number]) Bilirubin [Mass/Vol] 0.3 mg/dL (0.3-1.2 ) [facility] Comment on above: Note: Responsible Ob fast food server: TWPUR1 AUTOFILE ([id number]) Calcium [Mass/Vol] 9.0 mg/dL (8.6-10.4 ) [facility] Comment on above: Note: Responsible Ob fast food server: TWPUR1 AUTOFILE ([id number]) Chloride [Moles/Vol] 96 mmol/L Low (98-107 ) [facility] Comment on above: Note: Responsible Ob fast food server: TWPUR1 AUTOFILE ([id number]) CO2 [Moles/Vol] 24 mmol/L (20-31 ) [facility] Comment on above: Note: Responsible Ob fast food server: TWPUR1 AUTOFILE ([id number]) Creatinine [Mass/Vol] 0.4 mg/dL Low (0.5-0.9 ) [facility] Comment on above: Note: Responsible Ob fast food server: TWPUR1 AUTOFILE ([id number]) GFR/1.73 sq M.predicted among non-blacks MDRD (S/P/Bld) [Vol rate/Area] mL/min/{1.73_m2} (>60 ) [facility] Comment on above: Note: These results [...] Glucose [Mass/Vol] 310 mg/dL High (70-99 ) [facility] Comment on above: Note: Responsible Ob fast food server: TWPUR1 AUTOFILE (5977) Potassium [Moles/Vol] 4.1 mmol/L (3.7-5.3 ) [facility] Comment on above: Note: Responsible Ob fast food server: TWPUR1 AUTOFILE (5977) Protein [Mass/Vol] 6.6 g/dL (6.4-8.3 ) [facility] Comment on above: Note: Responsible Ob fast food server: TWPUR1 AUTOFILE (5977) Sodium [Moles/Vol] 132 mmol/L Low (135-144 ) [facility] Comment on above: Note: Responsible Ob fast food server: TWPUR1 AUTOFILE ([id number]) Urea nitrogen [Mass/Vol] 13 mg/dL (6-20 ) [facility] Comment on above: Note: Responsible Ob fast food server: TWPUR1 AUTOFILE ([id number]) Laboratory - Hematology and Cell countson 09-04-2024 Erythrocyte distribution width (RBC) [Ratio] 11.9 % Low (12.1-15.2 ) [facility] Comment on above: Note: 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 (47907) Hematocrit (Bld) [Volume fraction] 44.9 % (36.0-46.0 ) [facility] Comment on above: Note: 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 (28031) Hemoglobin (Bld) [Mass/Vol] 15.8 g/dL (12.0-16.0 ) [facility] Comment on above: Note: 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 (02374) MCH (RBC) [Entitic mass] 28.8 pg (26.0-34.0 ) [facility] Comment on above: Note: 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 (33282) MCHC (RBC) [Mass/Vol] 35.2 g/dL (31.0- 37.0 ) [facility] Comment on above: Note: 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 (57363) MCV (RBC) [Entitic vol] 81.8 fL (80.0-100.0 ) [facility] Comment on above: Note: 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 (34270) Platelet mean volume (Bld) [Entitic vol] 9.7 fL (6.0-12.0 ) [facility] Comment on above: Note: 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 (24087) Platelets (Bld) [#/Vol] 354 10*3/uL (140-450 ) [facility] Comment on above: Note: 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 (87755) RBC (Bld) [#/Vol] 5.49 10*6/uL High (4.00-5.20 ) [facility] Comment on above: Note: 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 ([id number]) WBC (Bld) [#/Vol] 6.4 10*3/uL (3.5-11.0 ) [facility] Comment on above: Note: 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 (27843) Laboratory - Specimen inform ationon 09-04-2024 Clarity (U) Clear (CLEAR ) [facility] Comment on above: Note: Responsible Ob fast food server: SMAIRA ([facility] (2218) Color (U) Yellow (YEL ) [facility] Comment on above: Note: Responsible Ob fast food server: SAMIRA ([facility] (2218) Laboratory - Urinalysison Leukocyte esterase Test strip Ql (U) Negative (NEG ) [facility] Comment on above: Note: Responsible Ob fast food server: SAMIRA ([facility] (2218) Lactic Acidon 09-04-2024 Lactate (BldV) [Moles/Vol] 1.6 mmol/L 0.5 - 2.2 mmol/L [facility] Lactate [Moles/Vol] 1.6 mmol/L (0.5-2.2 ) [facility] Comment on above: Note: Responsible Ob fast food server: TWPUR1 AUTOFILE (5977) Performed By: #### T ROPI, CBC, LACTIC, CP, DIME ####[facility] [address] [place] [address] lab Director: Miller Shirley MD No Panel Informationon 09-04 Bilirubin, SemiQt,Ur Negative (NEG ) [facility] Comment on above: Note: Responsible Ob fast food server: SAMIRA ([facility] (2217) Blood, Urine Negative (NEG ) [facility] Comment on above: Note: Responsible Ob fast food server: SAMIRA ([facility] (2217) Comment See Note [facility] Comment on above: Note: Responsible Ob fast food server: SAMIRA ([facility] (2217) Glucose,Semi-qnt,Ur 1000 mg/dL mg/dL Abnormal (NEG ) [facility] Comment on above: Note: Responsible Ob fast food server: SAMIRA ([facility] (2217) Nitrite,Ur Negative (NEG ) [facility] Comment on above: Note: Responsible Ob fast food server: SAMIRA ([facility] (2217) PH,Ur 6.0 (5.0-8.0 ) [facility] Comment on above: Note: Responsible Ob fast food server: SAMIRA ([facility] (2217) Protein, Semi-qnt,Ur TRACE mg/dL Abnormal (NEG ) [facility] Comment on above: Note: Responsible Ob fast food server: SAMIRA ([facility] (2217) Reported Physicians See Note [facility] Comment on above: Note: Reported Physi cians:Ordering: LORNA, VESELINAttending: LORNA, VESELINReferring: Kavita Qureshi Spec. [place],Ur 1.015 (1.005-1.03 0 ) [facility] Comment on above: Note: Responsible Ob fast food server: SAMIRA ([facility] ([id number]) Urobilinogen,Ur Normal EU/dL (0.0-1.0 ) [facility] Comment on above: Note: Responsible Ob fast food server: SAMIRA ([facility] (2217) Albumin/Glob Ratio 1.5 (1.0-2.5 ) [facility] Comment on above: Note: Responsible Ob fast food server: TWPUR1 AUTOFILE (5977) Alkaline Phos 99 U/L (35-104 ) [facility] Comment on above: Note: Responsible Ob fast food server: [facility] AUTOFILE (4688) D-Dimer Test <0.27 ug/mL_FEU (0.00-0.59 ) [facility] Comment on above: Note: When combined [...] prevalent in patients withdistal DVT.Responsible Observer: BENSON HwangWOODHULL MEDICAL CENTERLuis Angel THOMPSON (2110) Reported Physicians See Note [facility] Comment on above: Note: Reported Physi cians:Ordering: LORNA, VESELINAttending: LORNA, VESELINReferring: Kavita Qureshi Troponin, High Sens 19 ng/L High (0-14 ) [facility] Comment on above: Note: High Sensitivi ty Troponin values cannot be compared with other Troponinmethodologies.Responsible Observer: [facility] AUTOFILE ([id number]) Reported Physicians See Note [facility] Comment on above: Note: Reported Physi cians:Ordering: LORNA, VESELINAttending: LORNA, VESELINReferring: Hardeep, Kavita Troponinon 09-04-2024 Interpretation and review of laboratory results Abnormal [facility] Troponin I.cardiac High sensitivity method [Mass/Vol] 19 ng/L High 0 - 14 ng/L [facility] Comment on above: High Sensitivity Tro ponin values cannot be compared with other Troponin methodologies. [facility] Troponin, High Sens 19 ng/L High 0-14 [facility] Comment on above: Result Comment: High Sensitivity Troponin values cannot be compared with other Troponin methodologies. Performed By: #### T ROPI, CBC, LACTIC, CP, DIME ####[facility] [id number] [place] [address] Lab Director: Miller Shirley MD UA w/Reflex Cultureon 2024 Bilirubin, SemiQt,Ur Negative Normal NEG [facility] Comment on above: Performed By: #### U AX ####[facility] [address] [place] [address] Lab Director: Miller Shirley MD Blood, Urine Negative Normal NEG [facility] Comment on above: Performed By: #### U AX ####[facility] [address] [place] [address] Lab Director: Miller Shirley MD Clarity (U) Clear Normal CLEAR [facility] Comment on above: Performed By: #### U AX ####[facility] [address] [place] [address] Lab Director: Miller Shirley MD Color (U) Yellow Normal YEL [facility] Comment on above: Performed By: #### U AX ####[facility] [address] [place] [address] Lab Director: Miller Shirley MD Comment Normal [facility] Comment on above: Performed By: #### U AX ####[facility] [address] [place] [address] Lab Director: Miller Shirley MD Glucose Ql (U) 1000 mg/dL Abnormal NEG [facility] Comment on above: Performed By: #### U AX ####[facility] [address] [place] [address] lab Director: Miller Shirley MD Ketones Ql (U) Negative Normal NEG [facility] Comment on above: Performed By: #### U AX ####[facility] [id number] [facility] [place] [address] lab Director: Miller Shirley MD Leukocyte esterase Test strip Ql (U) Negative Normal NEG [facility] Comment on above: Performed By: #### U AX ####[facility] [address] [place] [address] lab Director: Miller Shirley MD Nitrite,Ur Negative Normal NEG [facility] Comment on above: Performed By: #### U AX ####[facility] [address] [facility] [place] [address] lab Director: Miller Shirley MD PH,Ur 6.0 Normal 5.0-8.0 [facility] Comment on above: Performed By: #### U AX ####[facility] [id number] [facility] [place] [address] lab Director: Miller Shirley MD Protein Ql (U) TRACE Abnormal NEG [facility] Comment on above: Performed By: #### U AX ####[facility] [id number] [place] [address] Lab Director: Miller Shirley MD Spec. [place],Ur 1.015 Normal 1.005-1.030 [facility] Comment on above: Performed By: #### U AX ####[facility] [id number] [place] [address] lab Director: Miller Shirley MD Urobilinogen,Ur Normal Normal 0.0-1.0 [facility] Comment on above: Performed By: #### U AX ####[facility] [id number] [place] [address] lab Director: Miller Shirley MD Urinalysis with Reflex to Cu ltureon 09-04-2024 Bilirubin Ql (U) Negative NEGATIVE [facility] Clarity (U) Clear Clear [facility] Color (U) Yellow Yellow [facility] Comment [facility] Glucose Test strip (U) [Mass/Vol] 1000 mg/dL Abnormal NEGATIVE mg/dL [facility] Hemoglobin Auto test strip Ql (U) Negative NEGATIVE [facility] Interpretation and review of laboratory results Abnormal [facility] Ketones (U) [Mass/Vol] Negative NEGATIVE mg/dL [facility] Leukocyte esterase Test strip Ql (U) Negative NEGATIVE [facility] Nitrite Ql (U) Negative NEGATIVE [facility] pH (U) 6.0 [pH] 5.0 - 8.0 [facility] Protein (U) [Mass/Vol] TRACE Abnormal NEGATIVE mg/dL [facility] Specific gravity (U) [Rel density] 1.015 1.005 - 1.030 [facility] Urobilinogen Qn (U) Normal 0.0 - 1. 0 EU/dL [facility] CT CHEST WO CONTRASTon 09-03 CT CHEST [...] Pia Ortiz MD 09/03/24 Final result Normal [facility] Basic Metabolic Panelon 08-17 Anion gap [Moles/Vol] 13 mmol/L 9 - 16 mmol/L [facility] Calcium [Mass/Vol] 9.5 mg/dL 8.6 - 10. 4 mg/dL [facility] Chloride [Moles/Vol] 97 mmol/L Low 98 - 10 7 mmol/L [facility] CO2 [Moles/Vol] 26 mmol/L 20 - 31 mmol/L [facility] Creatinine [Mass/Vol] 0.6 mg/dL 0.50 - 0.90 mg/dL [facility] Est, Glom Filt Rate - PINF [facility] Comment on above: These results are not [...] 298 mg/dL High 74 - 99 mg/dL [facility] Potassium [Moles/Vol] 4.1 mmol/L 3.7 - 5.3 mmol/L [facility] Sodium [Moles/Vol] 136 mmol/L 136 - 145 mmol/L [facility] [employer] Urea nitrogen [Mass/Vol] 16 mg/dL 6 - 20 mg/dL [facility] Urea nitrogen/Creatinine [Mass ratio] 27 mg/mg High 9 - 20 [facility] Basic Metabolic Profon 09-02 Anion gap [Moles/Vol] 13 mmol/L Normal 9-16 [facility] Comment on above: Performed By: #### L IP, LIVP, MG, BMP, TROPI, CDP #### [facility] [address] [place] [address] Store Promoter: Miller Shirley MD BUN/CRE Ratio 27 High 9-20 [facility] Comment on above: Performed By: #### L IP, LIVP, MG, BMP, TROPI, CDP #### [facility] [address] [place] [address] Store Promoter: Miller Shirley MD Calcium [Mass/Vol] 9.5 mg/dL Normal 8.6-10.4 [facility] Comment on above: Performed By: #### L IP, LIVP, MG, BMP, TROPI, CDP #### [facility] [address] [place] [address] Store Promoter: Miller Shirley MD Chloride [Moles/Vol] 97 mmol/L Low 98-107 [facility] Comment on above: Performed By: #### L IP, LIVP, MG, BMP, TROPI, CDP #### [facility] [address] [place] [address] [place] [address] Store Promoter: Miller Shirley MD CO2 [Moles/Vol] 26 mmol/L Normal 20-31 [facility] Comment on above: Performed By: #### L IP, LIVP, MG, BMP, TROPI, CDP #### [facility] [address] [place] [address] Store Promoter: Miller Shirley MD Creatinine [Mass/Vol] 0.6 mg/dL Normal 0.50-0.90 [facility] Comment on above: Performed By: #### L IP, LIVP, MG, BMP, TROPI, CDP #### [address] [place] [address] Store Promoter: Miller Shirlye MD GFR/1.73 sq M.predicted among non-blacks MDRD (S/P/Bld) [Vol rate/Area] mL/min/{1.73_m2} Normal >60 [facility] Comment on above: Result Comment: These [...] IP, LIVP, MG, BMP, TROPI, CDP #### [address] [place] [address] Store Promoter: Miller Shirley MD Glucose [Mass/Vol] 298 mg/dL High 74-99 [facility] Comment on above: Performed By: #### L IP, LIVP, MG, BMP, TROPI, CDP #### [address] [place] [address] Store Promoter: Miller Shirley MD Potassium [Moles/Vol] 4.1 mmol/L Normal 3.7-5.3 [facility] Comment on above: Performed By: #### L IP, LIVP, MG, BMP, TROPI, CDP #### [address] [place] [address] Store Promoter: Miller Shirley MD Sodium [Moles/Vol] 136 mmol/L Normal 136-145 [facility] Comment on above: Performed By: #### L IP, LIVP, MG, BMP, TROPI, CDP #### [address] [place] [address] Store Promoter: Miller Shirley MD Urea nitrogen [Mass/Vol] 16 mg/dL Normal 6-20 [facility] Comment on above: Performed By: #### L IP, LIVP, MG, BMP, TROPI, CDP #### [facility] [address] [place] [address] [place] [address] Store Promoter: Miller Shirley MD CBC with Auto Differentialon 09-02-2024 Basophils (Bld) [#/Vol] 0.04 10*3/uL [facility] Immature granulocytes (Bld) [#/Vol] [facility] Interpretation and review of laboratory results Abnormal [facility] Lymphocytes/100 WBC (Bld) 2.16 % [facility] Monocytes/100 WBC (Bld) 0.59 % [facility] Neutrophils/100 WBC (Bld) 54 % 36 - 65 % [facility] Nucleated RBC/100 WBC (Bld) [Ratio] 0.0 % 0.0 per 100 WBC [facility] Segmented neutrophils/100 WBC (Bld) 3.39 % [facility] WBC other (Bld) [#/Vol] 6.3 [facility] CBC with Diffon 09-02-2024 Basophils/100 WBC (Bld) 1 % Normal 0-2 [facility] Comment on above: Performed By: #### L IP, LIVP, MG, BMP, TROPI, CDP #### [facility] [address] [place] [address] [place] [address] Store Promoter: Miller Shirley MD Eosinophils (Bld) [#/Vol] 0.11 10*3/uL Normal 0.00-0.44 [facility] Comment on above: Performed By: #### L IP, LIVP, MG, BMP, TROPI, CDP #### [address] [place] [address] Store Promoter: Miller Shirley MD Eosinophils/100 WBC (Bld) 2 % Normal 1-4 [facility] Comment on above: Performed By: #### L IP, LIVP, MG, BMP, TROPI, CDP #### [address] [place] [address] Store Promoter: Miller Shirley MD Erythrocyte distribution width (RBC) [Ratio] 12.4 % Normal 11.8-14.4 [facility] Comment on above: Performed By: #### L IP, LIVP, MG, BMP, TROPI, CDP #### [address] [place] [id number] Store Promoter: Miller Shirley MD Hematocrit (Bld) [Volume fraction] 42.8 % Normal 36.3-47.1 [facility] Comment on above: Performed By: #### L IP, LIVP, MG, BMP, TROPI, CDP #### [address] [place] [id number] Store Promoter: Miller Shirley MD Hemoglobin (Bld) [Mass/Vol] 15.0 g/dL Normal 11.9-15.1 [facility] Comment on above: Performed By: #### L IP, LIVP, MG, BMP, TROPI, CDP #### [address] [place], [facility]83 Store Promoter: Miller Shirley MD Immature granulocytes/100 WBC (Bld) 0 % Normal 0 [facility] Comment on above: Performed By: #### L IP, LIVP, MG, BMP, TROPI, CDP #### [address] [place], [facility]83 Store Promoter: Miller Shirley MD Lymphocytes/100 WBC (Bld) 34 % Normal 24-43 [facility] Comment on above: Performed By: #### L IP, LIVP, MG, BMP, TROPI, CDP #### [address] [place] [address] Store Promoter: Miller Shirley MD MCH (RBC) [Entitic mass] 29.6 pg Normal 25.2-33.5 [facility] Comment on above: Performed By: #### L IP, LIVP, MG, BMP, TROPI, CDP #### [address] [place] [id number] Store Promoter: Miller Shirley MD MCHC (RBC) [Mass/Vol] 35.0 g/dL High 28.4-34.8 [facility] Comment on above: Performed By: #### L IP, LIVP, MG, BMP, TROPI, CDP #### [address] [place] [phone] Store Promoter: Miller Shirley MD MCV (RBC) [Entitic vol] 84.6 fL Normal 82.6-102.9 [facility] Comment on above: Performed By: #### L IP, LIVP, MG, BMP, TROPI, CDP #### [address] [place], [facility]83 Store Promoter: Miller Shirley MD Monocytes/100 WBC (Bld) 9 % Normal 3-12 [facility] Comment on above: Performed By: #### L IP, LIVP, MG, BMP, TROPI, CDP #### [address] [place], [facility]83 Store Promoter: Miller Shirley MD Platelet mean volume (Bld) [Entitic vol] 9.7 fL Normal 8.1-13.5 [facility] Comment on above: Performed By: #### L IP, LIVP, MG, BMP, TROPI, CDP #### [address] [place] [id number] Store Promoter: Miller Shirley MD Platelets (Bld) [#/Vol] 353 10*3/uL Normal 138-453 [facility] Comment on above: Performed By: #### L IP, LIVP, MG, BMP, TROPI, CDP #### [facility] [address] [place] [address] Store Promoter: Miller Shirley MD RBC (Bld) [#/Vol] 5.06 10*6/uL Normal 3.95-5.11 [facility] Comment on above: Performed By: #### L IP, LIVP, MG, BMP, TROPI, CDP #### [address] [place], [facility]83 Store Promoter: Miller Shirley MD Abs. Basophil 0.04 k/uL Normal 0.00-0.20 [facility] Comment on above: Performed By: #### L IP, LIVP, MG, BMP, TROPI, CDP #### [address] [place] [address] Store Promoter: Miller Shirley MD Abs.Imm.Granulocyte <0.03 Normal 0.00-0.30 [facility] Comment on above: Performed By: #### L IP, LIVP, MG, BMP, TROPI, CDP #### [address] [place], [place] [address] Store Promoter: Miller Shirley MD Abs.Neutrophil (Seg) 3.39 k/uL Normal 1.50-8.10 [facility] Comment on above: Performed By: #### L IP, LIVP, MG, BMP, TROPI, CDP #### [address] [place], [place] [address] Store Promoter: Miller Shirley MD Lymphocytes (Bld) [#/Vol] 2.16 10*3/uL Normal 1.10-3.70 [facility] Comment on above: Performed By: #### L IP, LIVP, MG, BMP, TROPI, CDP #### [address] [place], [facility]83 Store Promoter: Miller Shirley MD Monocytes (Bld) [#/Vol] 0.59 10*3/uL Normal 0.10-1.20 [facility] Comment on above: Performed By: #### L IP, LIVP, MG, BMP, TROPI, CDP #### [facility] [address] [place], [place] [id number] Store Promoter: Miller Shirley MD Neutrophil (Seg) 54 % Normal 36-65 [facility] Comment on above: Performed By: #### L IP, LIVP, MG, BMP, TROPI, CDP #### [facility] [address] [place], [place] [id number] Store Promoter: Miller Shirley MD NRBC Automated 0.0 per 100 WBC Normal 0.0 [facility] Comment on above: Performed By: #### L IP, LIVP, MG, BMP, TROPI, CDP #### [facility] [address] [place] [address] [place], [place] [id number] Store Promoter: Miller Shirley MD WBC (Bld) [#/Vol] 6.3 10*3/uL Normal 3.5-11.3 [facility] Comment on above: Performed By: #### L IP, LIVP, MG, BMP, TROPI, CDP #### [address] [place], [place] [id number] Store Promoter: Miller Shirley MD CT ABDOMEN PELVIS WO [...] Yonatan Gupta MD 09/02/24 Final result Normal [facility] CT Abdomen and Pelvis WO con traston [...] There are shotty inguinal lymph nodes noted. [facility] RIS CONSOLIDATED Yonatan Gupta MD - 09/02/2024 EXAMINATION: CT OF THE [...] amount of stool seen throughout the colon. [facility] Radiology Study observation (narrative) [facility] CT Abdomen and Pelvis WO con trastOrdered By: Yonatan Gupta on 09-02-2024 [facility] Work Phone: D-Dimer Teston 09-02-2024 D-Dimer Test <0.27 Normal 0.00-0.59 [facility] Comment on above: Result Comment: When [...] IP, LIVP, MG, BMP, TROPI, CDP #### [facility] [address] [place] [address] Store Promoter: Miller Shirley MD D-Dimer, Quantitativeon 08-17 Fibrin D-dimer FEU (PPP) [Mass/Vol] [facility] Comment on above: When combined with [...] more prevalent in patients with distal DVT. [facility] Hepatic Function Panelon Albumin [Mass/Vol] 3.9 g/dL 3.5 - 5.2 g/dL [facility] Albumin/Globulin [Mass ratio] 1.6 {ratio} 1.0 - 2.5 [facility] ALP [Catalytic activity/Vol] 106 U/L High 35 - 104 U/L [facility] ALT [Catalytic activity/Vol] 19 U/L 10 - 35 U/L [facility] AST [Catalytic activity/Vol] 16 U/L 10 - 35 U/L [facility] Bilirubin [Mass/Vol] 0.2 mg/dL 0.00 - 1.20 mg/dL [facility] Bilirubin.direct [Mass/Vol] mg/dL 0.00 - 0.30 mg/dL [facility] Bilirubin.indirect [Mass/Vol] Can not be calculated 0.0 - 1.0 mg/dL [facility] Protein [Mass/Vol] 6.4 g/dL Low 6.6 - 8.7 g/dL [facility] Laboratory - Chemistry and C hemistry - challengeon 09-02-2024 Ketones Ql (U) TRACE mg/dL Abnormal (NEG ) [facility] Comment on above: Note: Responsible Ob fast food server: ASHA SERRANO ([id number]) Albumin [Mass/Vol] 3.9 g/dL (3.5-5.2 ) [facility] Comment on above: Note: Responsible Ob fast food server: EMPLOYEE NON-LAB (224) ALT [Catalytic activity/Vol] 19 U/L (10-35 ) [facility] Comment on above: Note: Responsible Ob fast food server: EMPLOYEE NON-LAB (224) Anion gap [Moles/Vol] 13 mmol/L (9-16 ) [facility] Comment on above: Note: Responsible Ob fast food server: EMPLOYEE NON-LAB (224) AST [Catalytic activity/Vol] 16 U/L (10-35 ) [facility] Comment on above: Note: Responsible Ob fast food server: EMPLOYEE NON-LAB (224) Bilirubin [Mass/Vol] 0.2 mg/dL (0.00-1 .20 ) [facility] Comment on above: Note: Responsible Ob fast food server: EMPLOYEE NON-LAB (224) Bilirubin.indirect [Mass/Vol] mg/dL (0.00-0.30 ) [facility] Comment on above: Note: Responsible Ob fast food server: EMPLOYEE NON-LAB (224) Calcium [Mass/Vol] 9.5 mg/dL (8.6-10.4 ) [facility] Comment on above: Note: Responsible Ob fast food server: EMPLOYEE NON-LAB (224) Chloride [Moles/Vol] 97 mmol/L Low (98-107 ) [facility] Comment on above: Note: Responsible Ob fast food server: EMPLOYEE NON-LAB (224) CO2 [Moles/Vol] 26 mmol/L (20-31 ) [facility] Comment on above: Note: Responsible Ob fast food server: EMPLOYEE NON-LAB (224) Creatinine [Mass/Vol] 0.6 mg/dL (0.50- 0.90 ) [facility] Comment on above: Note: Responsible Ob fast food server: EMPLOYEE NON-LAB (224) GFR/1.73 sq M.predicted among non-blacks MDRD (S/P/Bld) [Vol rate/Area] mL/min/{1.73_m2} (>60 ) [facility] Comment on above: Note: These results [...] Glucose [Mass/Vol] 298 mg/dL High (74-99 ) [facility] Comment on above: Note: Responsible Ob fast food server: EMPLOYEE NON-LAB (224) Lipase [Catalytic activity/Vol] 20 U/L (13-60 ) [facility] Comment on above: Note: Responsible Ob fast food server: EMPLOYEE NON-LAB (224) Magnesium [Mass/Vol] 1.9 mg/dL (1.6-2.6 ) [facility] Comment on above: Note: Responsible Ob fast food server: EMPLOYEE NON-LAB (224) Potassium [Moles/Vol] 4.1 mmol/L (3.7-5.3 ) [facility] Comment on above: Note: Responsible Ob fast food server: EMPLOYEE NON-LAB (224) Protein [Mass/Vol] 6.4 g/dL Low (6.6-8.7 ) [facility] Comment on above: Note: Responsible Ob fast food server: EMPLOYEE NON-LAB (224) Sodium [Moles/Vol] 136 mmol/L (136-145 ) [facility] Comment on above: Note: Responsible Ob fast food server: EMPLOYEE NON-LAB (224) Urea nitrogen [Mass/Vol] 16 mg/dL (6-20 ) [facility] Comment on above: Note: Responsible Ob fast food server: EMPLOYEE NON-LAB (224) Laboratory - Hematology and Cell countson 09-02-2024 Basophils/100 WBC (Bld) 1 % (0-2 ) [facility] Comment on above: Note: Responsible Ob fast food server: [employer] (3019) Eosinophils (Bld) [#/Vol] 0.11 10*3/uL (0.00-0.44 ) [facility] Comment on above: Note: Responsible Ob fast food server: [employer] (3019) Eosinophils/100 WBC (Bld) 2 % (1-4 ) [facility] Comment on above: Note: Responsible Ob fast food server: [employer] (3019) Erythrocyte distribution width (RBC) [Ratio] 12.4 % (11.8-14.4 ) [facility] Comment on above: Note: Responsible Ob fast food server: [employer] (3019) Hematocrit (Bld) [Volume fraction] 42.8 % (36.3-47.1 ) [facility] Comment on above: Note: Responsible Ob fast food server: [employer] (3019) Hemoglobin (Bld) [Mass/Vol] 15.0 g/dL (11.9-15.1 ) [facility] Comment on above: Note: Responsible Ob fast food server: [employer] (3019) Immature granulocytes/100 WBC (Bld) 0 % (0 ) [facility] Comment on above: Note: Responsible Ob fast food server: [employer] (3019) Lymphocytes (Bld) [#/Vol] 2.16 10*3/uL (1.10-3.70 ) [facility] Comment on above: Note: Responsible Ob fast food server: [employer] (3019) Lymphocytes/100 WBC (Bld) 34 % (24-43 ) [facility] Comment on above: Note: Responsible Ob fast food server: [employer] (3019) MCH (RBC) [Entitic mass] 29.6 pg (25.2-33.5 ) [facility] Comment on above: Note: Responsible Ob fast food server: [employer] (3019) MCHC (RBC) [Mass/Vol] 35.0 g/dL High (28.4- 34.8 ) [facility] Comment on above: Note: Responsible Ob fast food server: [employer] (3019) MCV (RBC) [Entitic vol] 84.6 fL (82.6-102.9 ) [facility] Comment on above: Note: Responsible Ob fast food server: [employer] (3019) Monocytes (Bld) [#/Vol] 0.59 10*3/uL (0.10-1.20 ) [facility] Comment on above: Note: Responsible Ob fast food server: [employer] (3019) Monocytes/100 WBC (Bld) 9 % (3-12 ) [facility] Comment on above: Note: Responsible Ob fast food server: [employer] (3019) Platelet mean volume (Bld) [Entitic vol] 9.7 fL (8.1-13.5 ) [facility] Comment on above: Note: Responsible Ob fast food server: [employer] (3019) Platelets (Bld) [#/Vol] 353 10*3/uL (138-453 ) [facility] Comment on above: Note: Responsible Ob fast food server: [employer] (3019) RBC (Bld) [#/Vol] 5.06 10*6/uL (3.95-5.11 ) [facility] Comment on above: Note: Responsible Ob fast food server: [employer] (3019) Segmented neutrophils/100 WBC (Bld) 54 % (36-65 ) [facility] Comment on above: Note: Responsible Ob fast food server: [employer] (3019) WBC (Bld) [#/Vol] 6.3 10*3/uL (3.5-11.3 ) [facility] Comment on above: Note: Responsible Ob fast food server: [employer] (3019) Laboratory - Specimen inform ationon 09-02-2024 Clarity (U) Clear (CLEAR ) [facility] Comment on above: Note: Responsible Ob fast food server: ASHA SERRANO ([id number]) Color (U) Yellow (YEL ) [facility] Comment on above: Note: Responsible Ob fast food server: ASHA SERRANO ([id number]) Laboratory - Urinalysison Epithelial cells LM Ql (Urine sed) 0 TO 2 /HPF (0-25 ) [facility] Comment on above: Note: Responsible Ob fast food server: ASHA SERRANO ([id number]) Leukocyte esterase Test strip Ql (U) Negative (NEG ) [facility] Comment on above: Note: Responsible Ob fast food server: ASHA SERRANO ([id number]) Lactate, Sepsison 09-02-2024 Interpretation and review of laboratory results Abnormal [facility] Lactate (BldV) [Moles/Vol] 3.6 mmol/L High 0.5 - 1.9 mmol/L [facility] Lactic Acid, Sepsis 3.6 mmol/L High 0.5-1.9 [facility] Comment on above: Performed By: #### L IP, LIVP, MG, BMP, TROPI, CDP #### [facility] [address] [place] [address] Store Promoter: Miller Shirley MD Interpretation and review of laboratory results Abnormal [facility] Lactate (BldV) [Moles/Vol] 4.0 mmol/L High 0.5 - 1.9 mmol/L [facility] Lactic Acid, Sepsis 4.0 mmol/L High 0.5-1.9 [facility] Comment on above: Performed By: #### L IP, LIVP, MG, BMP, TROPI, CDP #### [facility] [address] [place] [address] Store Promoter: Miller Shirley MD Lipaseon 09-02-2024 Lipase [Catalytic activity/Vol] 20 U/L 13 - 60 U/L [facility] Lipase [Catalytic activity/Vol] 20 U/L Normal 13-60 [facility] Comment on above: Performed By: #### L IP, LIVP, MG, BMP, TROPI, CDP #### [facility] [address] [place] [address] Store Promoter: Miller Shirley MD Liver Profileon 09-02-2024 Albumin [Mass/Vol] 3.9 g/dL Normal 3.5-5.2 [facility] Comment on above: Performed By: #### L IP, LIVP, MG, BMP, TROPI, CDP #### [facility] [address] [place] [address] Store Promoter: Miller Shirley MD Albumin/Glob Ratio 1.6 Normal 1.0-2.5 [facility] Comment on above: Performed By: #### L IP, LIVP, MG, BMP, TROPI, CDP #### [facility] [address] [place], [place] [id number] Store Promoter: Miller Shirley MD Alkaline Phos 106 U/L High 35-104 [facility] Comment on above: Performed By: #### L IP, LIVP, MG, BMP, TROPI, CDP #### [facility] [address] [place], [place] [id number] Store Promoter: Miller Shirley MD ALT [Catalytic activity/Vol] 19 U/L Normal 10-35 [facility] Comment on above: Performed By: #### L IP, LIVP, MG, BMP, TROPI, CDP #### [facility] [address] [place], [place] [id number] Store Promoter: Miller Shirley MD AST [Catalytic activity/Vol] 16 U/L Normal 10-35 [facility] Comment on above: Performed By: #### L IP, LIVP, MG, BMP, TROPI, CDP #### [facility] [address] [place], [place] [id number] Store Promoter: Miller Shirley MD Bilirubin [Mass/Vol] 0.2 mg/dL Normal 0.00-1.20 [facility] Comment on above: Performed By: #### L IP, LIVP, MG, BMP, TROPI, CDP #### [facility] [address] [place], [place] [id number] Store Promoter: Miller Shirley MD Bilirubin, Indirect Can not be calculated Normal 0.0-1 .0 [facility] Comment on above: Performed By: #### L IP, LIVP, MG, BMP, TROPI, CDP #### [facility] [address] [place] [address] Store Promoter: Miller Shirley MD Bilirubin.indirect [Mass/Vol] mg/dL Normal 0.00-0.30 [facility] Comment on above: Performed By: #### L IP, LIVP, MG, BMP, TROPI, CDP #### [facility] [address] [place] [address] Store Promoter: Miller Shirley MD Protein [Mass/Vol] 6.4 g/dL Low 6.6-8.7 [facility] Comment on above: Performed By: #### L IP, LIVP, MG, BMP, TROPI, CDP #### [facility] [address] [place] [address] Store Promoter: Miller Shirley MD Magnesiumon 09-02-2024 Magnesium [Mass/Vol] 1.9 mg/dL 1.6 - 2 .6 mg/dL [facility] Magnesium [Mass/Vol] 1.9 mg/dL Normal 1.6-2.6 [facility] Comment on above: Performed By: #### L IP, LIVP, MG, BMP, TROPI, CDP #### [facility] [address] [place] [address] Store Promoter: Miller Shirley MD Microscopic Urinalysison Casts LM.LPF (Urine sed) [#/Area] 0 TO 2 HYALINE /LPF [facility] Epithelial cells LM.HPF (Urine sed) [#/Area] 0 TO 2 [facility] Interpretation and review of laboratory results Abnormal [facility] Mucus Ql (Urine sed) 1+ Abnormal None [facility] RBC LM.HPF (Urine sed) [#/Area] None [facility] WBC LM.HPF (Urine sed) [#/Area] 0 TO 2 [facility] No Panel Informationon 09-02 Lactic Acid, Sepsis 3.6 mmol/L High (0.5-1.9 ) [facility] Comment on above: Note: Responsible Ob fast food server: EMPLOYEE NON-LAB (224) Reported Physicians See Note [facility] Comment on above: Note: Reported Physi cians:Ordering: STRUGALSKI, CHAIM TAttending: STRUGALSKI, RORYReferring: Kavita Qureshi Troponin, High Sens 8 ng/L (0-14 ) [facility] Comment on above: Note: High Sensitivi ty Troponin values cannot be compared with other Troponinmethodologies.Responsible Observer: EMPLOYEE NON-LAB (224) Bilirubin, SemiQt,Ur Negative (NEG ) [facility] Comment on above: Note: Responsible Ob fast food server: ASHA SERRANO ([id number]) Blood, Urine Negative (NEG ) [facility] Comment on above: Note: Responsible Ob fast food server: ASHA SERRANO ([id number]) Casts 0 TO 2 /LPF [facility] Comment on above: Note: HYALINERespons ible Observer: ASHA SERRANO ([id number]) Glucose,Semi-qnt,Ur 3+ mg/dL Abnormal (NEG ) [facility] Comment on above: Note: Responsible Ob fast food server: ASHA SERRANO ([id number]) Mucus Strands 1+ Abnormal (NONE ) [facility] Comment on above: Note: Responsible Ob fast food server: ASHA SERRANO (57) Nitrite,Ur Negative (NEG ) [facility] Comment on above: Note: Responsible Ob fast food server: ASHA SERRANO (57) PH,Ur 6.0 (5.0-9.0 ) [facility] Comment on above: Note: Responsible Ob fast food server: ASHA SERRANO ([id number]) Protein, Semi-qnt,Ur Negative (NEG ) [facility] Comment on above: Note: Responsible Ob fast food server: ASHA SERRANO ([id number]) Reported Physicians See Note [facility] Comment on above: Note: Reported Physi cians:Ordering: STRUGALSKI, CHAIM TAttending: STRUGALSKI, RORYReferring: Kavita Qureshi Spec. [place],Ur 1.025 High (1.010-1.02 0 ) [facility] Comment on above: Note: Responsible Ob fast food server: ASHA SERRANO ([id number]) Urine RBC's None /HPF (0-2 ) [facility] Comment on above: Note: Responsible Ob fast food server: ASHA SERRANO (57) Urine WBC's 0 TO 2 /HPF (0-5 ) [facility] Comment on above: Note: Responsible Ob fast food server: ASHA SERRANO ([id number]) Urobilinogen,Ur Normal EU/dL (0.0-1.0 ) [facility] Comment on above: Note: Responsible Ob fast food server: ASHA SERRANO ([id number]) Interpretation and review of laboratory results Abnormal [facility] Abs. Basophil 0.04 k/uL (0.00-0.20 ) [facility] Comment on above: Note: Responsible Ob fast food server: XNT AUTOFILE ([id number]) Abs.Imm.Granulocyte <0.03 k/uL (0.00-0. 30 ) [facility] Comment on above: Note: Responsible Ob fast food server: XNT AUTOFILE ([id number]) Abs.Neutrophil (Seg) 3.39 k/uL (1.50-8 .10 ) [facility] Comment on above: Note: Responsible Ob fast food server: XNT AUTOFILE (3019) Albumin/Glob Ratio 1.6 (1.0-2.5 ) [facility] Comment on above: Note: Responsible Ob fast food server: EMPLOYEE NON-LAB (224) Alkaline Phos 106 U/L High (35-104 ) [facility] Comment on above: Note: Responsible Ob fast food server: EMPLOYEE NON-LAB (224) Bilirubin, Indirect Can not be calculate d mg/dL (0.0-1.0 ) [facility] Comment on above: Note: Responsible Ob fast food server: EMPLOYEE NON-LAB (224) BUN/CRE Ratio 27 High (9-20 ) [facility] Comment on above: Note: Responsible Ob fast food server: EMPLOYEE NON-LAB (224) Cult, Blood See Note [facility] Comment on above: Note: Specimen Descr iption .BLOODSpecial Requests 20ML LACCulture NO GROWTH 7 DAYSReport Status FINAL 09/09/2024 D-Dimer Test <0.27 ug/mL_FEU (0.00-0.59 ) [facility] Comment on above: Note: When combined [...] in patients withdistal DVT.Responsible Observer: ALISON COHEN ([id number]) Lactic Acid, Sepsis 4.0 mmol/L High (0.5-1.9 ) [facility] Comment on above: Note: Responsible Ob fast food server: EMPLOYEE NON-LAB (224) NRBC Automated 0.0 per_100_WBC (0.0 ) [facility] Comment on above: Note: Responsible Ob fast food server: XNT AUTOFILE (6008) Reported Physicians See Note [facility] Comment on above: Note: Reported Physi cians:Ordering: STRUGALSKI, RORYAttending: CINTRA, THAISReferring: Kavita Qureshi Note: Reported Physi cians:Ordering: STRUGALSKI, CHAIM TAttending: STRUGALSKI, RORYReferring: Kavita Qureshi Thyroid Stim. Horm. 0.85 uIU/mL (0.27-4. 20 ) [facility] Comment on above: Note: Responsible Ob fast food server: EMPLOYEE NON-LAB (224) Troponin, High Sens 9 ng/L (0-14 ) [facility] Comment on above: Note: High Sensitivi ty Troponin values cannot be compared with other Troponinmethodologies.Responsible Observer: EMPLOYEE NON-LAB (224) TSHon 09-02-2024 TSH Qn 0.85 m[IU]/L [facility] Thyroid Stim. Horm.on 2024 Thyroid Stim. Horm. 0.85 uIU/mL Normal 0.27-4.20 [facility] Comment on above: Performed By: #### L IP, LIVP, MG, BMP, TROPI, CDP #### [facility] [address] [place] [address] Store Promoter: Miller Shirley MD Troponinon 09-02-2024 Troponin I.cardiac High sensitivity method [Mass/Vol] 8 ng/L 0 - 14 ng/L [facility] Comment on above: High Sensitivity Tro ponin values cannot be compared with other Troponin methodologies. [facility] Troponin, High Sens 8 ng/L Normal 0-14 [facility] Comment on above: Result Comment: High Sensitivity Troponin values cannot be compared with other Troponin methodologies. Performed By: #### L IP, LIVP, MG, BMP, TROPI, CDP #### [facility] [address] [place] [address] Store Promoter: Miller Shirley MD Troponin I.cardiac High sensitivity method [Mass/Vol] 9 ng/L 0 - 14 ng/L [facility] Comment on above: High Sensitivity Tro ponin values cannot be compared with other Troponin methodologies. Troponin, High Sens 9 ng/L Normal 0-14 [facility] Comment on above: Result Comment: High Sensitivity Troponin values cannot be compared with other Troponin methodologies. Performed By: #### L IP, LIVP, MG, BMP, TROPI, CDP #### [facility] [address] [place] [address] Store Promoter: Miller Shirley MD Urinalysison 09-02-2024 Bilirubin Ql (U) Negative NEGATIVE [facility] Clarity (U) Clear Clear [facility] Color (U) Yellow Yellow [facility] Glucose Test strip (U) [Mass/Vol] 3+ Abnormal NEGATIVE mg/dL [facility] Hemoglobin Auto test strip Ql (U) Negative NEGATIVE [facility] Interpretation and review of laboratory results Abnormal [facility] Ketones (U) [Mass/Vol] TRACE Abnormal NEGATIVE mg/dL [facility] Leukocyte esterase Test strip Ql (U) Negative NEGATIVE [facility] Nitrite Ql (U) Negative NEGATIVE [facility] pH (U) 6.0 [pH] 5.0 - 9.0 [facility] Protein (U) [Mass/Vol] Negative NEGATIVE mg/dL [facility] Specific gravity (U) [Rel density] 1.025 High 1.010 - 1.020 [facility] Urobilinogen Qn (U) Normal 0.0 - 1. 0 EU/dL [facility] Urinalysis, Routineon 2024 Bilirubin, SemiQt,Ur Negative Normal NEG [facility] Comment on above: Performed By: #### L IP, LIVP, MG, BMP, TROPI, CDP #### [facility] [address] [place] [address] [place] [address] Store Promoter: Miller Shirley MD Blood, Urine Negative Normal NEG [facility] Comment on above: Performed By: #### L IP, LIVP, MG, BMP, TROPI, CDP #### [address] [place] [address] Store Promoter: Miller Shirley MD Clarity (U) Clear Normal CLEAR [facility] Comment on above: Performed By: #### L IP, LIVP, MG, BMP, TROPI, CDP #### [facility] [address] [place] [address] Store Promoter: Miller Shirley MD Color (U) Yellow Normal YEL [facility] Comment on above: Performed By: #### L IP, LIVP, MG, BMP, TROPI, CDP #### [facility] [address] [place] [address] [place] [address] Store Promoter: Miller Shirley MD Glucose Ql (U) 3+ mg/dL Abnormal NEG [facility] in Hospital Comment on above: Performed By: #### L IP, LIVP, MG, BMP, TROPI, CDP #### [address] [place] [address] Store Promoter: Miller Shirley MD Ketones Ql (U) TRACE Abnormal NEG [facility] in Hospital Comment on above: Performed By: #### L IP, LIVP, MG, BMP, TROPI, CDP #### [address] [place], [place] [id number] Store Promoter: Miller Shirley MD Leukocyte esterase Test strip Ql (U) Negative Normal NEG [facility] Comment on above: Performed By: #### L IP, LIVP, MG, BMP, TROPI, CDP #### [address] [place], [facility]83 Store Promoter: Miller Shirley MD Nitrite,Ur Negative Normal [facility] Comment on above: Performed By: #### L IP, LIVP, MG, BMP, TROPI, CDP #### [address] [place], [facility]83 Store Promoter: Miller Shirley MD PH,Ur 6.0 Normal 5.0-9.0 [facility] Comment on above: Performed By: #### L IP, LIVP, MG, BMP, TROPI, CDP #### [address] [place], [facility]83 Store Promoter: Miller Shirley MD Protein Ql (U) Negative Normal NEG [facility] in [facility] Comment on above: Performed By: #### L IP, LIVP, MG, BMP, TROPI, CDP #### [address] [place] [address] Store Promoter: Miller Shirley MD Spec. [place],Ur 1.025 High 1.010-1.020 [facility] Comment on above: Performed By: #### L IP, LIVP, MG, BMP, TROPI, CDP #### [facility] [address] [place] [address] Store Promoter: Miller Shirley MD Urobilinogen,Ur Normal Normal 0.0-1.0 [facility] Comment on above: Performed By: #### L IP, LIVP, MG, BMP, TROPI, CDP #### [facility] [address] [place], [place] [id number] Store Promoter: Miller Shirley MD Urinalysis,Microon 5 Casts 0 TO 2 Normal [facility] Comment on above: Result Comment: HYAL INE Performed By: #### L IP, LIVP, MG, BMP, TROPI, CDP #### [address] [place] [address] Store Promoter: Miller Shirley MD Epithelial cells LM Ql (Urine sed) 0 TO 2 Normal 0-25 [facility] Comment on above: Performed By: #### L IP, LIVP, MG, BMP, TROPI, CDP #### [address] [place] [address] Store Promoter: Miller Shirley MD Mucus Strands 1+ Abnormal NONE [facility] Comment on above: Performed By: #### L IP, LIVP, MG, BMP, TROPI, CDP #### [facility] [address] [place], [place] [id number] Store Promoter: Miller Shirley MD Urine RBC's None Normal 0-2 [facility] Comment on above: Performed By: #### L IP, LIVP, MG, BMP, TROPI, CDP #### [facility] [address] [place] [address] Store Promoter: Miller Shirley MD Urine WBC's 0 TO 2 Normal 0-5 [facility] Comment on above: Performed By: #### L IP, LIVP, MG, BMP, TROPI, CDP #### [facility] [address] [place] [address] Store Promoter: Miller Shirley MD US Kidneyon 08-30-2024 Benign left renal cyst. [facility] EXAM: US RENAL COMPL ETE HISTORY: Generalized [...] the bladder with no significant postvoid residual. [facility] Eduar Lawton Jr., MD - 08/30/2024 EXAM: US RENAL [...] postvoid residual. IMPRESSION: Benign left renal cyst. [facility] Radiology Study observation (narrative) [facility] US KidneyOrdered By: Eduar Lawton on 08-30-2024 [facility] Work Phone: US RENAL COMPLETEon 08-30-19 US RENAL COMPLETE EXAM: US RENAL COMPL [...] Lawton Jr., MD 08/30/24 Final result Normal [facility] Cult,Bloodon 08-26-2024 Cult,Blood Specimen Description .BLOOD Special Requests 20ML LAC Culture NO GROWTH 5 DAYS Report Status FINAL 08/26/2024 Normal [facility] Comment on above: Performed By: #### L IP, LIVP, MG, BMP, TROPI, CDP #### [facility] [address] [place] [address] Store Promoter: Miller Shirley MD Basic Metabolic Panelon Anion gap [Moles/Vol] 13 mmol/L 9 - 16 mmol/L [facility] Calcium [Mass/Vol] 9.8 mg/dL 8.6 - 10. 4 mg/dL [facility] Chloride [Moles/Vol] 93 mmol/L Low 98 - 10 7 mmol/L [facility] CO2 [Moles/Vol] 25 mmol/L 20 - 31 mmol/L [facility] Creatinine [Mass/Vol] 0.8 mg/dL 0.50 - 0.90 mg/dL [facility] Est, Glom Filt Rate 88 - PINF [facility] Comment on above: These results [...] 239 mg/dL High 74 - 99 mg/dL [facility] Potassium [Moles/Vol] 4.0 mmol/L 3.7 - 5.3 mmol/L [facility] Sodium [Moles/Vol] 131 mmol/L Low 136 - 145 mmol/L [facility] Urea nitrogen [Mass/Vol] 28 mg/dL High 6 - 20 mg/dL [facility] Urea nitrogen/Creatinine [Mass ratio] 35 mg/mg High 9 - 20 [facility] Basic Metabolic Profon 08-21 Anion gap [Moles/Vol] 13 mmol/L Normal 9-16 [facility] Comment on above: Performed By: #### M G, CDP, TROPI, LIVP, BMP, LIP #### [facility] [address] [place] [address] Store Promoter: Miller Shirley MD BUN/CRE Ratio 35 High 9-20 [facility] Comment on above: Performed By: #### M G, CDP, TROPI, LIVP, BMP, LIP #### [facility] [address] [place] [address] Store Promoter: Miller Shirley MD Calcium [Mass/Vol] 9.8 mg/dL Normal 8.6-10.4 [facility] Comment on above: Performed By: #### M G, CDP, TROPI, LIVP, BMP, LIP #### [facility] [address] [place] [address] Store Promoter: Miller Shirley MD Chloride [Moles/Vol] 93 mmol/L Low 98-107 [facility] Comment on above: Performed By: #### M G, CDP, TROPI, LIVP, BMP, LIP #### [facility] [address] [place] [address] Store Promoter: Miller Shirley MD CO2 [Moles/Vol] 25 mmol/L Normal 20-31 [facility] Comment on above: Performed By: #### M G, CDP, TROPI, LIVP, BMP, LIP #### [facility] [address] [place] [address] Store Promoter: Miller Shirley MD Creatinine [Mass/Vol] 0.8 mg/dL Normal 0.50-0.90 [facility] Comment on above: Performed By: #### M G, CDP, TROPI, LIVP, BMP, LIP #### [facility] [address] [place] [address] Store Promoter: Miller Shirley MD GFR/1.73 sq M.predicted among non-blacks MDRD (S/P/Bld) [Vol rate/Area] 88 mL/min/{1.73_m2} Normal >60 [facility] Comment on above: Result Comment: These [...] G, CDP, TROPI, LIVP, BMP, LIP #### [facility] [address] [place] [address] Store Promoter: Miller Shirley MD Glucose [Mass/Vol] 239 mg/dL High 74-99 [facility] Comment on above: Performed By: #### M G, CDP, TROPI, LIVP, BMP, LIP #### [facility] [address] [place] [address] Store Promoter: Miller Shirley MD Potassium [Moles/Vol] 4.0 mmol/L Normal 3.7-5.3 [facility] Comment on above: Performed By: #### M G, CDP, TROPI, LIVP, BMP, LIP #### [facility] [address] [place] [address] Store Promoter: Miller Shirley MD Sodium [Moles/Vol] 131 mmol/L Low 136-145 [facility] Comment on above: Performed By: #### M G, CDP, TROPI, LIVP, BMP, LIP #### [facility] [address] [place] [address] Store Promoter: Miller Shirley MD Urea nitrogen [Mass/Vol] 28 mg/dL High 6-20 [facility] Comment on above: Performed By: #### M G, CDP, TROPI, LIVP, BMP, LIP #### [facility] [address] [place] [address] Store Promoter: Miller Shirley MD CBC with Auto Differentialon 08-21-2024 Basophils (Bld) [#/Vol] 0.05 10*3/uL [facility] Basophils/100 WBC (Bld) 1 % 0 - 2 % [facility] Eosinophils (Bld) [#/Vol] 0.11 10*3/uL [facility] Eosinophils/100 WBC (Bld) 1 % 1 - 4 % [facility] Erythrocyte distribution width (RBC) [Ratio] 12.1 % 11.8 - 14.4 % [facility] Hematocrit (Bld) [Volume fraction] 43.7 % 36.3 - 47.1 % [facility] Hemoglobin (Bld) [Mass/Vol] 15.0 g/dL 11.9 - 15.1 g/dL [facility] Immature granulocytes (Bld) [#/Vol] 0.04 10*3/uL [facility] Immature granulocytes/100 WBC (Bld) 0 % 0 [facility] Interpretation and review of laboratory results Abnormal [facility] Lymphocytes/100 WBC (Bld) 25 % 24 - 43 % [facility] Lymphocytes/100 WBC (Bld) 2.70 % [facility] MCH (RBC) [Entitic mass] 28.9 pg 25.2 - 33.5 pg [facility] MCHC (RBC) [Mass/Vol] 34.3 g/dL 28.4 - 34.8 g/dL [facility] MCV (RBC) [Entitic vol] 84.2 fL 82.6 - 102.9 fL [facility] Monocytes/100 WBC (Bld) 8 % 3 - 12 % [facility] Monocytes/100 WBC (Bld) 0.84 % [facility] Neutrophils/100 WBC (Bld) 65 % 36 - 65 % [facility] Nucleated RBC/100 WBC (Bld) [Ratio] 0.0 % 0.0 per 100 WBC [facility] Platelet mean volume (Bld) [Entitic vol] 9.8 fL 8.1 - 13.5 fL [facility] Platelets (Bld) [#/Vol] 352 10*3/uL [facility] RBC (Bld) [#/Vol] 5.19 10*6/uL High 3.95 - 5.1 1 m/uL [facility] Segmented neutrophils/100 WBC (Bld) 7.25 % [facility] WBC other (Bld) [#/Vol] 11.0 [facility] CBC with Diffon 08-21-2024 Abs. Basophil 0.05 k/uL Normal 0.00-0.20 [facility] Comment on above: Performed By: #### M G, CDP, TROPI, LIVP, BMP, LIP #### [address] [place] [address] Store Promoter: Miller Shirley MD Abs.Imm.Granulocyte 0.04 k/uL Normal 0.00-0.30 [facility] Comment on above: Performed By: #### M G, CDP, TROPI, LIVP, BMP, LIP #### [facility] [address] [place], [place] [id number] Store Promoter: Miller Shirley MD Abs.Neutrophil (Seg) 7.25 k/uL Normal 1.50-8.10 [facility] Comment on above: Performed By: #### M G, CDP, TROPI, LIVP, BMP, LIP #### [facility] [address] [place] [address] Store Promoter: Miller Shirley MD Basophils/100 WBC (Bld) 1 % Normal 0-2 [facility] Comment on above: Performed By: #### M G, CDP, TROPI, LIVP, BMP, LIP #### [facility] [address] [place] [id number] Store Promoter: Miller Shirley MD Eosinophils (Bld) [#/Vol] 0.11 10*3/uL Normal 0.00-0.44 [facility] Comment on above: Performed By: #### M G, CDP, TROPI, LIVP, BMP, LIP #### [address] [place] [phone] Store Promoter: Millre Shirley MD Eosinophils/100 WBC (Bld) 1 % Normal 1-4 [facility] Comment on above: Performed By: #### M G, CDP, TROPI, LIVP, BMP, LIP #### [address] [place], [place] [address] Store Promoter: Miller Shirley MD Erythrocyte distribution width (RBC) [Ratio] 12.1 % Normal 11.8-14.4 [facility] Comment on above: Performed By: #### M G, CDP, TROPI, LIVP, BMP, LIP #### [address] [place] [phone] Store Promoter: Miller Shirley MD Hematocrit (Bld) [Volume fraction] 43.7 % Normal 36.3-47.1 [facility] Comment on above: Performed By: #### M G, CDP, TROPI, LIVP, BMP, LIP #### [address] [place] [phone] Store Promoter: Miller Shriley MD Hemoglobin (Bld) [Mass/Vol] 15.0 g/dL Normal 11.9-15.1 [facility] Comment on above: Performed By: #### M G, CDP, TROPI, LIVP, BMP, LIP #### [facility] [address] [place], [place] [phone] Store Promoter: Miller Shirley MD Immature granulocytes/100 WBC (Bld) 0 % Normal 0 [facility] Comment on above: Performed By: #### M G, CDP, TROPI, LIVP, BMP, LIP #### [facility] [address] [place], [place] 0898683 Store Promoter: Miller Shirley MD Lymphocytes (Bld) [#/Vol] 2.70 10*3/uL Normal 1.10-3.70 [facility] Comment on above: Performed By: #### M G, CDP, TROPI, LIVP, BMP, LIP #### [facility] [address] [place], [facility]83 Store Promoter: Miller Shirley MD Lymphocytes/100 WBC (Bld) 25 % Normal 24-43 [facility] Comment on above: Performed By: #### M G, CDP, TROPI, LIVP, BMP, LIP #### [facility] [address] [place], [place] [id number] Store Promoter: Miller Shirley MD MCH (RBC) [Entitic mass] 28.9 pg Normal 25.2-33.5 [facility] Comment on above: Performed By: #### M G, CDP, TROPI, LIVP, BMP, LIP #### [facility] [address] [place], [facility]83 Store Promoter: Miller Shirley MD MCHC (RBC) [Mass/Vol] 34.3 g/dL Normal 28.4-34.8 [facility] Comment on above: Performed By: #### M G, CDP, TROPI, LIVP, BMP, LIP #### [facility] [address] [place] [address] Store Promoter: Miller Shirley MD MCV (RBC) [Entitic vol] 84.2 fL Normal 82.6-102.9 [facility] Comment on above: Performed By: #### M G, CDP, TROPI, LIVP, BMP, LIP #### [address] [place], [place] [id number] Store Promoter: Miller Shirley MD Monocytes (Bld) [#/Vol] 0.84 10*3/uL Normal 0.10-1.20 [facility] Comment on above: Performed By: #### M G, CDP, TROPI, LIVP, BMP, LIP #### [address] [place] [address] Store Promoter: Miller Shirley MD Monocytes/100 WBC (Bld) 8 % Normal 3-12 [facility] Comment on above: Performed By: #### M G, CDP, TROPI, LIVP, BMP, LIP #### [address] [place], [place] [address] Store Promoter: Miller Shirley MD Neutrophil (Seg) 65 % Normal 36-65 [facility] Comment on above: Performed By: #### M G, CDP, TROPI, LIVP, BMP, LIP #### [address] [place], [place] 8627183 Store Promoter: Miller Shirley MD NRBC Automated 0.0 per 100 WBC Normal 0.0 [facility] Comment on above: Performed By: #### M G, CDP, TROPI, LIVP, BMP, LIP #### [address] [place], [place] 2060583 Store Promoter: Miller Shirley MD Platelet mean volume (Bld) [Entitic vol] 9.8 fL Normal 8.1-13.5 [facility] Comment on above: Performed By: #### M G, CDP, TROPI, LIVP, BMP, LIP #### [address] [place], [place] 84[address]83 Store Promoter: Miller Shirley MD Platelets (Bld) [#/Vol] 352 10*3/uL Normal 138-453 [facility] Comment on above: Performed By: #### M G, CDP, TROPI, LIVP, BMP, LIP #### [facility] [address] [place], [place] 457[address]83 Store Promoter: Miller Shirley MD RBC (Bld) [#/Vol] 5.19 10*6/uL High 3.95-5.11 [facility] Comment on above: Performed By: #### M G, CDP, TROPI, LIVP, BMP, LIP #### [facility] [address] [place], [place] [id number] Store Promoter: Miller Shirley MD WBC (Bld) [#/Vol] 11.0 10*3/uL Normal 3.5-11.3 [facility] Comment on above: Performed By: #### M G, CDP, TROPI, LIVP, BMP, LIP #### [address] [place], [place] 890[address]83 Store Promoter: Miller Shirley MD Drug Scr, Abuse, Uron 2024 Amphetamine(s),Ur Negative Normal NEG [facility] Comment on above: Result Comment: Cuto ff: 1000 ng/mL Performed By: #### L IP, LIVP, MG, BMP, TROPI, CDP #### [address] [place], [place] 884[address]83 Store Promoter: Miller Shirley MD Barbiturate(s),Ur Negative Normal NEG [facility] Comment on above: Result Comment: Cuto ff: 200 ng/ml Performed By: #### L IP, LIVP, MG, BMP, TROPI, CDP #### [address] [place] [address] Store Promoter: Miller Shirley MD Benzodiazepine(s) Negative Normal NEG [facility] Comment on above: Result Comment: Cuto ff: 200 ng/ml Performed By: #### L IP, LIVP, MG, BMP, TROPI, CDP #### [facility] [address] [place] [address] [place], [place] 1459283 Store Promoter: Miller Shirley MD Buprenorphrine, Ur Negative Normal NEG [facility] Comment on above: Result Comment: Cuto ff: 5 ng/ml Performed By: #### L IP, LIVP, MG, BMP, TROPI, CDP #### [facility] [address] [place] [address] [place] [place], [place] 3852783 Store Promoter: Miller Shirley MD Cannabinoid(s),Ur Negative Normal NEG [facility] Comment on above: Result Comment: Cuto ff: 50 ng/ml Performed By: #### L IP, LIVP, MG, BMP, TROPI, CDP #### [address] [place], [place] 814[address]83 Store Promoter: Miller Shirley MD Cocaine Metabolite Negative [facility] Comment on above: Result Comment: Cuto ff: 300 ng/ml Performed By: #### L IP, LIVP, MG, BMP, TROPI, CDP #### [address] [place], [place] [id number] Store Promoter: Miller Shirley MD Fentanyl, Urine Negative Normal [facility] Comment on above: Result Comment: Cuto ff: 5 ng/ml Performed By: #### L IP, LIVP, MG, BMP, TROPI, CDP #### [facility] [address] [place] [address] [place] [place], [place] [id number] Store Promoter: Miller Shirley MD Interpretive Info This method is a screening test to detect only these drug classes as part of a Normal [facility] Comment on above: Result Comment: medi onofre workup. Confirmatory testing by another method should be ordered if clinically indicated. Performed By: #### L IP, LIVP, MG, BMP, TROPI, CDP #### [address] [place] [address] Store Promoter: Miller Shirley MD Methadone Ql (U) Negative Normal NEG [facility] Comment on above: Result Comment: Cuto ff: 300 ng/ml Performed By: #### L IP, LIVP, MG, BMP, TROPI, CDP #### [facility] [address] [place] [address] [place], [place] [id number] Store Promoter: Miller Shirley MD Opiate(s), Ur Negative Normal NEG [facility] Comment on above: Result Comment: Cuto ff: 300 ng/ml Note: The Opiate screen is not intended to detect Oxycodone. Performed By: #### L IP, LIVP, MG, BMP, TROPI, CDP #### [address] [place] [address] Store Promoter: Miller Shirley MD Oxycodone, Urine Negative Normal NEG [facility] Comment on above: Result Comment: Cuto ff: 100 ng/ml Performed By: #### L IP, LIVP, MG, BMP, TROPI, CDP #### [address] [place] [address] Store Promoter: Miller Shirley MD Phencyclidine, Ur Negative Normal [facility] Comment on above: Result Comment: Cuto ff: 25 ng/ml Performed By: #### L IP, LIVP, MG, BMP, TROPI, CDP #### [facility] [address] [place] [address] [place] [address] Store Promoter: Miller Shirley MD EKG 12 LeadOrdered By: Yassine benavides on 08-21-2024 Atrial Rate 136 BPM [facility] Work Phone: P [place] 63 degrees [facility] Work Phone: P-R Interval 140 ms [facility] Work Phone: Q-T Interval 296 ms [facility] Work Phone: QRS Duration 70 ms [facility] [employer] Work Phone: QTc Calculation (Bazett) 445 ms [employer] Work Phone: R [place] 29 degrees [facility] [employer] Work Phone: T [place] 94 degrees [employer] Work Phone: Ventricular Rate 136 BPM [facility] [employer] Work Phone: [facility] [employer] Work Phone: EKG 12 Leadon 08-21-2024 Sinus tachycardia Septal infarct , age undetermined Abnormal ECG No previous ECGs available Confirmed by Yassine Rendon MD ([id number]) on 08/21/2024 7:41:19 PM [facility] Yassine Rendon MD - 08/21/2024 Sinus tachycardia Septal infarct , age undetermined Abnormal ECG No previous ECGs available Confirmed by Yassine Rendon MD ([id number]) on 08/21/2024 7:41:19 PM [facility] Hepatic Function Panelon Albumin [Mass/Vol] 4.2 g/dL 3.5 - 5.2 g/dL [facility] Albumin/Globulin [Mass ratio] 1.5 {ratio} 1.0 - 2.5 [facility] ALP [Catalytic activity/Vol] 95 U/L 35 - 104 U/L [facility] ALT [Catalytic activity/Vol] 21 U/L 10 - 35 U/L [facility] AST [Catalytic activity/Vol] 17 U/L 10 - 35 U/L [facility] Bilirubin [Mass/Vol] 0.3 mg/dL 0.00 - 1.20 mg/dL [facility] Bilirubin.direct [Mass/Vol] mg/dL 0.00 - 0.30 mg/dL [facility] Bilirubin.indirect [Mass/Vol] Can not be calculated 0.0 - 1.0 mg/dL [facility] Protein [Mass/Vol] 7.0 g/dL 6.6 - 8.7 g/dL [facility] Lactate, Sepsison 08-21-2024 Interpretation and review of laboratory results Abnormal [facility] Lactate (BldV) [Moles/Vol] 2.1 mmol/L High 0.5 - 1.9 mmol/L [facility] Lactic Acid, Sepsis 2.1 mmol/L High 0.5-1.9 [facility] Comment on above: Performed By: #### L IP, LIVP, MG, BMP, TROPI, CDP #### [facility] [address] [place] [address] Store Promoter: Miller Shirley MD Lipaseon 08-21-2024 Lipase [Catalytic activity/Vol] 18 U/L 13 - 60 U/L [facility] Lipase [Catalytic activity/Vol] 18 U/L Normal 13-60 [facility] Comment on above: Performed By: #### M G, CDP, TROPI, LIVP, BMP, LIP #### [facility] [address] [place] [address] Store Promoter: Miller Shirley MD Liver Profileon 08-21-2024 Albumin [Mass/Vol] 4.2 g/dL Normal 3.5-5.2 [facility] Comment on above: Performed By: #### M G, CDP, TROPI, LIVP, BMP, LIP #### [facility] [address] [place] [address] Store Promoter: Miller Shirley MD Albumin/Glob Ratio 1.5 Normal 1.0-2.5 [facility] Comment on above: Performed By: #### M G, CDP, TROPI, LIVP, BMP, LIP #### [facility] [address] [place] [address] Store Promoter: Miller Shirley MD Alkaline Phos 95 U/L Normal 35-104 [facility] Comment on above: Performed By: #### M G, CDP, TROPI, LIVP, BMP, LIP #### [facility] [address] [place], [place] [id number] Store Promoter: Miller Shirley MD ALT [Catalytic activity/Vol] 21 U/L Normal [address] [place] [address] Comment on above: Performed By: #### M G, CDP, TROPI, LIVP, BMP, LIP #### [facility] [address] [place], [place] [id number] Store Promoter: Miller Shirley MD AST [Catalytic activity/Vol] 17 U/L Normal [address] [place] [address] Comment on above: Performed By: #### M G, CDP, TROPI, LIVP, BMP, LIP #### [address] [place], [place] [id number] Store Promoter: Miller Shirley MD Bilirubin [Mass/Vol] 0.3 mg/dL Normal 0.00-1.20 [facility] Comment on above: Performed By: #### M G, CDP, TROPI, LIVP, BMP, LIP #### [address] [place] [address] Store Promoter: Miller Shirley MD Bilirubin, Indirect Can not be calculated Normal 0.0-1 .0 [facility] Comment on above: Performed By: #### M G, CDP, TROPI, LIVP, BMP, LIP #### [address] [place], [place] [phone] Store Promoter: Miller Shirley MD Bilirubin.indirect [Mass/Vol] mg/dL Normal 0.00-0.30 [facility] Comment on above: Performed By: #### M G, CDP, TROPI, LIVP, BMP, LIP #### [address] [place] [address] Store Promoter: Miller Shirley MD Protein [Mass/Vol] 7.0 g/dL Normal 6.6-8.7 [facility] Comment on above: Performed By: #### M G, CDP, TROPI, LIVP, BMP, LIP #### [facility] [address] [place] [address] Store Promoter: Miller Shirley MD Magnesiumon 08-21-2024 Magnesium [Mass/Vol] 2.0 mg/dL 1.6 - 2 .6 mg/dL [facility] Magnesium [Mass/Vol] 2.0 mg/dL Normal 1.6-2.6 [facility] Comment on above: Performed By: #### L IP, LIVP, MG, BMP, TROPI, CDP #### [facility] [address] [place] [address] Store Promoter: Miller Shirley MD No Panel Informationon 08-21 Interpretation and review of laboratory results Abnormal [facility] Portable XR Chest AP single viewon 08-21-2024 No acute cardiopulmo nary process. [facility] RIS CONSOLIDATED EXAMINATION: ONE XRAY VIEW OF THE [...] noted. Osseous and mediastinal structures are age-appropriate. [facility] RIS CONSOLIDATED Nesha Francisco MD - 08/21/2024 [...] are age-appropriate. IMPRESSION: No acute cardiopulmonary process. [facility] Radiology Study observation (narrative) [facility] Portable XR Chest AP single viewOrdered By: Nesha Francisco on 08-21-2024 [facility] Work Phone: Troponinon 08-21-2024 Troponin I.cardiac High sensitivity method [Mass/Vol] 14 ng/L 0 - 14 ng/L [facility] Comment on above: High Sensitivity Tro ponin values cannot be compared with other Troponin methodologies. [facility] Troponin, High Sens 14 ng/L Normal 0-14 [facility] Comment on above: Result Comment: High Sensitivity Troponin values cannot be compared with other Troponin methodologies. Performed By: #### L IP, LIVP, MG, BMP, TROPI, CDP #### [facility] [address] [place] [address] Store Promoter: Miller Shirley MD Troponin I.cardiac High sensitivity method [Mass/Vol] 17 ng/L High 0 - 14 ng/L [facility] Comment on above: High Sensitivity Tro ponin values cannot be compared with other Troponin methodologies. Troponin, High Sens 17 ng/L High 0-14 [facility] Comment on above: Result Comment: High Sensitivity Troponin values cannot be compared with other Troponin methodologies. Performed By: #### L IP, LIVP, MG, BMP, TROPI, CDP #### [facility] [address] [place] [address] Store Promoter: Miller Shirley MD Urinalysison 08-21-2024 Bilirubin Ql (U) Negative NEGATIVE [facility] Clarity (U) Clear Clear [facility] Color (U) Yellow Yellow [facility] Glucose Test strip (U) [Mass/Vol] Negative NEGATIVE mg/dL [facility] Hemoglobin Auto test strip Ql (U) Negative NEGATIVE [facility] Interpretation and review of laboratory results Abnormal [facility] Ketones (U) [Mass/Vol] Negative NEGATIVE mg/dL [facility] Leukocyte esterase Test strip Ql (U) Negative NEGATIVE [facility] Nitrite Ql (U) Negative NEGATIVE [facility] pH (U) 6.0 [pH] 5.0 - 9.0 [facility] Protein (U) [Mass/Vol] Negative NEGATIVE mg/dL [facility] Specific gravity (U) [Rel density] Low 1.010 - 1.020 [facility] Urobilinogen Qn (U) Normal 0.0 - 1. 0 EU/dL [facility] Urinalysis, Routineon 2024 Bilirubin, SemiQt,Ur Negative Normal NEG [facility] Comment on above: Performed By: #### L IP, LIVP, MG, BMP, TROPI, CDP #### [facility] [address] [place] [address] [place], [place] [id number] Store Promoter: Miller Shirley MD Blood, Urine Negative Normal NEG [facility] Comment on above: Performed By: #### L IP, LIVP, MG, BMP, TROPI, CDP #### [address] [place], [place] [phone] Store Promoter: Miller Shirley MD Clarity (U) Clear Normal CLEAR [facility] Comment on above: Performed By: #### L IP, LIVP, MG, BMP, TROPI, CDP #### [address] [place], [place] [phone] Store Promoter: Miller Shirley MD Color (U) Yellow Normal YEL [facility] Comment on above: Performed By: #### L IP, LIVP, MG, BMP, TROPI, CDP #### [address] [place], [place] [phone] Store Promoter: Miller Shirley MD Glucose Ql (U) Negative Normal NEG [facility] in Hospital Comment on above: Performed By: #### L IP, LIVP, MG, BMP, TROPI, CDP #### [address] [place] [address] Store Promoter: Miller Shirley MD Ketones Ql (U) Negative Normal NEG [facility] in Hospital Comment on above: Performed By: #### L IP, LIVP, MG, BMP, TROPI, CDP #### [facility] [address] [place] [address] [place], [place] [phone] Store Promoter: Miller Shirley MD Leukocyte esterase Test strip Ql (U) Negative Normal NEG [facility] Comment on above: Performed By: #### L IP, LIVP, MG, BMP, TROPI, CDP #### [address] [place], [place] [phone] Store Promoter: Miller Shirley MD Nitrite,Ur Negative Normal NEG [facility] Comment on above: Performed By: #### L IP, LIVP, MG, BMP, TROPI, CDP #### [address] [place] [address] Store Promoter: Miller Shirley MD PH,Ur 6.0 Normal 5.0-9.0 [facility] Comment on above: Performed By: #### L IP, LIVP, MG, BMP, TROPI, CDP #### [address] [place] [address] Store Promoter: Miller Shirley MD Protein Ql (U) Negative Normal NEG [facility] Comment on above: Performed By: #### L IP, LIVP, MG, BMP, TROPI, CDP #### [address] [place], [place] 55[address]83 Store Promoter: Miller Shirley MD Spec. [place],Ur <1.005 Low 1.010-1.020 [facility] Comment on above: Performed By: #### L IP, LIVP, MG, BMP, TROPI, CDP #### [address] [place], [place] [phone] Store Promoter: Miller Shirley MD Urobilinogen,Ur Normal Normal 0.0-1.0 [facility] Comment on above: Performed By: #### L IP, LIVP, MG, BMP, TROPI, CDP #### [address] [place] [address] Store Promoter: Miller Shirley MD Urine Drug Screenon 08-21-19 25 Amphetamines Ql (U) Negative NEGATIVE [facility] Comment on above: Cutoff: 1000 ng/mL Barbiturates Screen Ql (U) Negative NEGATIVE [facility] Comment on above: Cutoff: 200 ng/ml Benzodiazepines Ql (U) Negative NEGATIVE [facility] Comment on above: Cutoff: 200 ng/ml Buprenorphine Ql (U) Negative NEGATIVE [facility] Comment on above: Cutoff: 5 ng/ml Cannabinoids Screen Ql (U) Negative NEGATIVE [facility] Comment on above: Cutoff: 50 ng/ml Cocaine Ql (U) Negative NEGATIVE [facility] Comment on above: Cutoff: 300 ng/ml fentaNYL Ql (U) Negative NEGATIVE [facility] Comment on above: Cutoff: 5 ng/ml Methadone Ql (U) Negative NEGATIVE [facility] Comment on above: Cutoff: 300 ng/ml Opiates Screen Ql (U) Negative NEGATIVE [facility] Comment on above: Cutoff: 300 ng/ml Note: The Opiate screen is not intended to detect Oxycodone. oxyCODONE Ql (U) Negative NEGATIVE [facility] Comment on above: Cutoff: 100 ng/ml Phencyclidine Ql (U) Negative NEGATIVE [facility] Comment on above: Cutoff: 25 ng/ml Test Information This method is a screening test to detect only these drug classes as part of a medical workup. Confirmatory testing by another method should be ordered if clinically indicated. [facility] [employer] [facility] XR CHEST PORTABLEon 08-21-19 25 XR CHEST PORTABLE EXAMINATION: ONE XRAY VIEW [...] Nesha Francisco MD 08/21/24 Final result Normal [facility] XR CERVICAL SPINE (4-5 VIEWS )on 08-12-2024 [...] Lawton Jr., MD 08/12/24 Final result Normal [facility] XR Cervical spine 4 or 5 Vie wson 08-12-2024 FINDINGS/IMPRESSION: 1. Normal cervical vertebral body and disc space heights. 2. Intervertebral foramina are patent. 3. No fracture. 4. No acute or suspicious findings. [facility] CONSOLID[facility] EXAM: XR CERVICAL SP INE (4-5 VIEWS) HISTORY: Pain in thoracic spine COMPARISON: None. [facility] Eduar Lawton Jr., MD - 08/12/2024 EXAM: XR CERVICAL SPINE (4-5 VIEWS) HISTORY: Pain in thoracic spine COMPARISON: None. IMPRESSION: FINDINGS/IMPRESSION: 1. Normal cervical vertebral body and disc space heights. 2. Intervertebral foramina are patent. 3. No fracture. 4. No acute or suspicious findings. [facility] Radiology Study observation (narrative) [facility] XR Cervical spine 4 or 5 Vie wsOrdered By: Eduar Lawton on 08-12-2024 [facility] Work Phone: XR THORACIC SPINE (3 [...] Lawton Jr., MD 08/12/24 Final result Normal [facility] XR Thoracic spine 3 Viewson 08-12-2024 FINDINGS/IMPRESSION: 1. Minimal convex left lower lumbar curve. 2. Mild age-expected degenerative change. 3. No fracture, lytic or blastic lesion. [facility] CONSOL[facility] EXAM: XR THORACIC SP INE (3 VIEWS). HISTORY: Pain in thoracic spine. COMPARISON: None. [facility] Eduar Lawton Jr., MD - 08/12/2024 EXAM: XR THORACIC SPINE (3 VIEWS). HISTORY: Pain in thoracic spine. COMPARISON: None. IMPRESSION: FINDINGS/IMPRESSION: 1. Minimal convex left lower lumbar curve. 2. Mild age-expected degenerative change. 3. No fracture, lytic or blastic lesion. [facility] Radiology Study observation (narrative) [facility] XR Thoracic spine 3 ViewsOrd ered By: Eduar Lawton on 08-12-2024 [facility] Work Phone: XR LUMBAR SPINE (MIN [...] Cris Peterson MD 08/04/24 Final result Normal [facility] Laboratory - Chemistry and C hemistry - challengeon 06-06-2024 Albumin [Mass/Vol] 4.1 g/dL (3.8-4.9 ) [facility] ALP [Catalytic activity/Vol] 114 U/L (44-121 ) [facility] ALT [Catalytic activity/Vol] 16 U/L (0-32 ) [facility] AST [Catalytic activity/Vol] 10 U/L (0-40 ) [facility] Average glucose Estimated from glycated hemoglobin (Bld) [Mass/Vol] FORMER HAND [facility] Bilirubin [Mass/Vol] mg/dL (0.0-1.2 ) [facility] Calcium [Mass/Vol] 9.9 mg/dL (8.7-10.2 ) [facility] Chloride [Moles/Vol] 93 mmol/L Low (96-106 ) [facility] th [facility] Cholesterol [Mass/Vol] 438 mg/dL High (100-199 ) [facility] Cholesterol in HDL [Mass/Vol] 34 mg/dL Low (>39 ) [facility] Cholesterol in LDL [Mass/Vol] Comment mg/dL Abnormal (0-99 ) [facility] Comment on above: Note: Triglyceride r esult indicated is too high for an accurateLDL cholesterol estimation. Cholesterol in LDL/Cholesterol in HDL [Mass ratio] TNP ratio [facility] Comment on above: Note: Unable to calc ulate result since non-numeric resultobtained for component test. . LDL/HDL Ratio Men Women 1/2 Avg.Risk 1.0 1.5 Avg.Risk 3.6 3.2 2X Avg.Risk 6.2 5.0 3X Avg.Risk 8.0 6.1 Cholesterol in VLDL [Mass/Vol] TNP mg/dL [facility] Comment on above: Note: Unable to calc ulate result since non-numeric resultobtained for component test. CO2 [Moles/Vol] 20 mmol/L (20-29 ) [facility] Creatinine [Mass/Vol] 0.49 mg/dL Low (0.57- 1.00 ) [facility] Free T4 [Mass/Vol] 1.30 ng/dL (0.82-1.7 7 ) [facility] GFR/1.73 sq M.predicted among non-blacks MDRD (S/P/Bld) [Vol rate/Area] 111 mL/min/{1.73_m2} (>59 ) [facility] Globulin (S) [Mass/Vol] 2.3 g/dL (1.5-4.5 ) [facility] Glucose [Mass/Vol] 468 mg/dL High (70-99 ) [facility] Potassium [Moles/Vol] 5.1 mmol/L (3.5-5.2 ) [facility] Protein [Mass/Vol] 6.4 g/dL (6.0-8.5 ) [facility] Sodium [Moles/Vol] 130 mmol/L Low (134-144 ) [facility] Triglyceride [Mass/Vol] 895 mg/dL Critically high (0-149 ) [facility] Comment on above: Note: Results confir med ondilution. TSH Qn 1.180 uIU/mL (0.450-4.50 0 ) [facility] Urea nitrogen [Mass/Vol] 16 mg/dL (6-24 ) [facility] Urea nitrogen/Creatinine [Mass ratio] 33 mg/mg High (9-23 ) [facility] Laboratory - Hematology and Cell countson 06-06-2024 Basophils (Bld) [#/Vol] 0.1 10*3/uL (0.0-0.2 ) [facility] Basophils/100 WBC (Bld) 1 % (Not Estab. ) [facility] Eosinophils (Bld) [#/Vol] 0.1 10*3/uL (0.0-0.4 ) [facility] Eosinophils/100 WBC (Bld) 1 % (Not Estab. ) [facility] Erythrocyte distribution width (RBC) [Ratio] 12.6 % (11.7-15.4 ) [facility] HbA1c (Bld) [Mass fraction] TNP % [facility] Comment on above: Note: Test not perfo rmed. Insufficient specimen to perform orcomplete analysis. . . Prediabetes: 5.7 - 6.4 Diabetes: >6.4 Glycemic control for adults with diabetes: <7.0 Hematocrit (Bld) [Volume fraction] 46.0 % (34.0-46.6 ) [facility] Hemoglobin (Bld) [Mass/Vol] 15.3 g/dL (11.1-15.9 ) [facility] Immature granulocytes (Bld) [#/Vol] 0.0 10*3/uL (0.0-0.1 ) [facility] Immature granulocytes/100 WBC (Bld) 1 % (Not Estab. ) [facility] Lymphocytes (Bld) [#/Vol] 1.7 10*3/uL (0.7-3.1 ) [facility] Lymphocytes/100 WBC (Bld) 30 % (Not Estab. ) [facility] MCH (RBC) [Entitic mass] 30.1 pg (26.6-33.0 ) [facility] MCHC (RBC) [Mass/Vol] 33.3 g/dL (31.5- 35.7 ) [facility] MCV (RBC) [Entitic vol] 90 fL (79-97 ) [facility] Monocytes (Bld) [#/Vol] 0.5 10*3/uL (0.1-0.9 ) [facility] Monocytes/100 WBC (Bld) 9 % (Not Estab. ) [facility] Morphology Brian (Bld) [Interp] FORMER HAND [facility] Neutrophils (Bld) [#/Vol] 3.3 10*3/uL (1.4-7.0 ) [facility] Neutrophils/100 WBC (Bld) 58 % (Not Estab. ) [facility] Nucleated RBC/100 WBC (Bld) [Ratio] FORMER HAND [facility] Platelets (Bld) [#/Vol] 289 10*3/uL (150-450 ) [facility] RBC (Bld) [#/Vol] 5.09 10*6/uL (3.77-5.28 ) [facility] WBC (Bld) [#/Vol] 5.6 10*3/uL (3.4-10.8 ) [facility] Comment on above: Note: Effective De cember 2023 profile [id number] WBC will bemade non-orderable as a stand-alone order code. No Panel Informationon 06-06 Immature Cells FORMER HAND [facility] LDL Calc Comment: Comment [facility] Comment on above: Note: In the absence of the LDL-c value, if the Total Cholesterol(TC) is >260 mg/dL for those <16 years old or >290 forthose >/=16 years old, consider evaluating for FamilialHypercholesterolemia(FH) if clinically indicated.If the TC is below these limits, the probability of FHcannot be determined. Reported Physicians See Note [facility] Comment on above: Note: Reported Physi cians:Ordering: Kavita Qureshi Specimen Status Report [facility] Comment on above: Note: Test not perfo rmed. Insufficient specimen to perform orcomplete analysis. TEST: [id number] Hgb A1c with eAG Estimation Glucose, Whole Bloodon 07-05 Glucose [Mass/Vol] 350 mg/dL High 65 - 99 mg/dL [facility] Interpretation and review of laboratory results Abnormal [facility] CBC with Auto Differentialon 07-04-2022 Absolute Eos # 0.10 [facility] Absolute Lymph # 0.80 Low [facility] Absolute [place] # 0.60 [facility] Basophils (Bld) [#/Vol] 0.00 10*3/uL [facility] Basophils/100 WBC (Bld) 1 % 0 - 2 % [facility] Differential Type YES [facility] Eosinophils/100 WBC (Bld) 2 % 0 - 5 % [facility] Hematocrit (Bld) [Volume fraction] 43.2 % 36 - 46 % [facility] Hemoglobin (Bld) [Mass/Vol] 14.2 g/dL 12.0 - 16.0 g/dL [facility] Interpretation and review of laboratory results Abnormal [facility] Lymphocytes/100 WBC (Bld) 14 % Low 15 - 40 % [facility] MCH (RBC) [Entitic mass] 28.3 pg 26 - 34 pg [facility] MCHC (RBC) [Mass/Vol] 32.8 g/dL 31 - 3 7 g/dL [facility] MCV (RBC) [Entitic vol] 86.3 fL 80 - 100 fL [facility] Monocytes/100 WBC (Bld) 11 % High 4 - 8 % [facility] Platelet distribution width (Bld) [Ratio] 13.4 % 12.1 - 15.2 % [facility] Platelets (Bld) [#/Vol] 382 10*3/uL [facility] RBC (Bld) [#/Vol] 5.01 10*6/uL 4.0 - 5.2 m/uL [facility] Segmented neutrophils/100 WBC (Bld) 72 % 47 - 75 % [facility] Segs Absolute 4.20 [facility] WBC (Bld) [#/Vol] 5.8 10*3/uL [facility] Comprehensive Metabolic Pane karthikeyan 07-04-2022 Albumin [Mass/Vol] 3.7 g/dL 3.5 - 5.2 g/dL [facility] ALP (Bld) [Catalytic activity/Vol] 120 U/L High 35 - 104 U/L [facility] ALT [Catalytic activity/Vol] 26 U/L 5 - 33 U/L [facility] Anion gap [Moles/Vol] 12 mmol/L 9 - 17 mmol/L [facility] AST [Catalytic activity/Vol] 22 U/L NINF - 32 U/L [facility] Bilirubin [Mass/Vol] 0.3 mg/dL 0.3 - 1 .2 mg/dL [facility] Calcium [Mass/Vol] 9.3 mg/dL 8.6 - 10. 4 mg/dL [facility] Chloride [Moles/Vol] 93 mmol/L Low 98 - 10 7 mmol/L [facility] CO2 [Moles/Vol] 26 mmol/L 20 - 31 mmol/L [facility] Creatinine [Mass/Vol] 0.42 mg/dL Low 0.50 - 0.90 mg/dL [facility] GFR/1.73 sq M.predicted MDRD (S/P/Bld) [Vol rate/Area] - PINF [facility] Comment on above: Effective Apr 18, 2022 [...] 382 mg/dL High 70 - 99 mg/dL [facility] Interpretation and review of laboratory results Abnormal [facility] Potassium [Moles/Vol] 4.9 mmol/L 3.7 - 5.3 mmol/L [facility] Protein [Mass/Vol] 7.1 g/dL 6.4 - 8.3 g/dL [facility] Sodium [Moles/Vol] 131 mmol/L Low 135 - 144 mmol/L [facility] Urea nitrogen (BldV) [Mass/Vol] 10 mg/dL 6 - 20 mg/dL [facility] Urea nitrogen/Creatinine (Bld) [Mass ratio] 24 High 9 - 20 [facility] Hemoglobin A1Con 07-04-2022 Glucose [Mass/Vol] 344 mg/dL [facility] Comment on above: The ADA and AACC rec ommend providing the estimated average glucose result to permit better patient understanding of their HBA1c result. HbA1c (Bld) [Mass fraction] 13.6 % High 4.0 - 6.0 % [facility] Interpretation and review of laboratory results Abnormal [facility] Lipid Panelon 07-04-2022 Cholesterol [Mass/Vol] 338 mg/dL High NINF - 200 mg/dL [facility] Comment on above: Cholesterol Guidelines: <200 Desirable 200-240 Borderline >240 Undesirable Cholesterol in HDL [Mass/Vol] 37 mg/dL Low 40 - PINF mg/dL [facility] Comment on above: HDL Guidelines: <40 Undesirable 40-59 Borderline >59 Desirable Cholesterol in LDL [Mass/Vol] 235 mg/dL High 0 - 130 mg/dL [facility] Comment on above: LDL Guidelines: <100 Desirable 100-129 Near to/above Desirable 130-159 Borderline >159 Undesirable Direct (measured) LDL and calculated LDL are not interchangeable tests. Cholesterol.total/Cho lesterol in HDL [Mass ratio] 9.1 {ratio} High NINF - 5 [facility] Interpretation and review of laboratory results Abnormal [facility] Triglyceride [Mass/Vol] 330 mg/dL High NINF - 150 mg/dL [facility] Comment on above: Triglyceride Guidelines: <150 Desirable 150-199 Borderline 200-499 High >499 Very high Based on AHA Guidelines for fasting triglyceride, April 2012. [facility] Microalbumin, Uron 2 Albumin/Creatinine DL <= 20 mg/L (24H U) [Mass ratio] 17 mg/L NINF - 21 mg/L [facility] Albumin/Creatinine DL <= 20 mg/L (U) [Ratio] 28 High NINF [facility] Creatinine [Mass/Vol] 61.0 mg/dL 28.0 - 217.0 mg/dL [facility] Interpretation and review of laboratory results Abnormal [facility] Patient Fasting?on 2 Patient Fasting? YES [facility] B HYDROXYBUTYRATEon 06-22-20 22 B HYDROXYBUTYRATE 2.66 MMOL/L High 0.02-0.27 [facility] CBCon 06-22-2022 ABSOLUTE BAS 0.1 10*3/uL Normal 0.0-0.2 [facility] ABSOLUTE EOS 0.1 10*3/uL Normal 0.0-0.7 [facility] ABSOLUTE NEUTROPHIL COUNT 4.7 10*3/uL Normal 1.4-6.5 [facility] Basophils/100 WBC (Bld) 1.3 % Normal 0.0-2.0 [facility] DTYPE AUTO DIFF Normal [facility] Eosinophils/100 WBC (Bld) 0.9 % Normal 0.0-11.0 [facility] Lymphocytes (Bld) [#/Vol] 1.4 10*3/uL Normal 1.2-3.4 [facility] Lymphocytes/100 WBC (Bld) 19.9 % Low 20.0-55.0 [facility] Monocytes (Bld) [#/Vol] 0.7 10*3/uL Normal 0.0-0.7 [facility] Monocytes/100 WBC (Bld) 10.1 % High 0.0-10.0 [facility] Neutrophils/100 WBC (Bld) 67.8 % Normal 37.0-75.0 [facility] Erythrocyte distribution width (RBC) [Ratio] 13.7 % Normal 11.5-14.5 [facility] Hematocrit (Bld) [Volume fraction] 39.8 % Normal 36.0-48.0 [facility] Comment on above: Result Comment: IV F LUIDS Hemoglobin (Bld) [Mass/Vol] 13.4 g/dL Normal 12.0-16.0 [facility] Comment on above: Result Comment: iv f luids MCH (RBC) [Entitic mass] 29.2 pg Normal 26.0-35.0 [facility] MCHC (RBC) [Mass/Vol] 33.8 g/dL Normal 27.0-37.0 [facility] MCV (RBC) [Entitic vol] 86.4 fL Normal 80.0-100.0 [facility] Comment on above: Result Comment: IV F LUIDS Platelet mean volume (Bld) [Entitic vol] 8.9 fL Normal 7.4-11.0 [facility] Platelets (Bld) [#/Vol] 319 10*3/uL Normal 130.0-400.0 [facility] RBC (Bld) [#/Vol] 4.61 10*6/uL Normal 4.0-5.4 [facility] WBC (Bld) [#/Vol] 6.9 10*3/uL Normal 3.6-11.0 [facility] CBC, EDIF, PLATELETon 2021 ABSOLUTE BASOPHIL COUNT 0.1 10*3/uL 0.0 - 0.2 10*3/uL [facility] Basophils/100 WBC (Bld) 1.3 % 0.0 - 2.0 % [facility] Differential cell count method Nom (Bld) AUTO DIFF % [facility] Eosinophils (Bld) [#/Vol] 0.1 10*3/uL 0.0 - 0.7 10*3/uL [facility] Eosinophils/100 WBC (Bld) 0.9 % 0.0 - 11.0 % [facility] Erythrocyte distribution width (RBC) [Ratio] 13.7 % 11.5 - 14.5 % [facility] Hematocrit (Bld) [Volume fraction] 39.8 % 36.0 - 48.0 % [facility] Comment on above: IV FLUIDS Hemoglobin (Bld) [Mass/Vol] 13.4 g/dL [facility] Comment on above: iv fluids Interpretation and review of laboratory results Abnormal [facility] Lymphocytes (Bld) [#/Vol] 1.4 10*3/uL 1.2 - 3.4 10*3/uL [facility] Lymphocytes/100 WBC (Bld) 19.9 % Low 20.0 - 55.0 % [facility] MCH (RBC) [Entitic mass] 29.2 pg 26.0 - 35.0 PG [facility] MCHC (RBC) [Mass/Vol] 33.8 g/dL [facility] MCV (RBC) [Entitic vol] 86.4 fL [facility] Comment on above: IV FLUIDS Monocytes (Bld) [#/Vol] 0.7 10*3/uL 0.0 - 0.7 10*3/uL [facility] Monocytes/100 WBC (Bld) 10.1 % High 0.0 - 10.0 % [facility] Neutrophils (Bld) [#/Vol] 4.7 10*3/uL 1.4 - 6.5 10*3/uL [facility] Neutrophils/100 WBC (Bld) 67.8 % 37.0 - 75.0 % [facility] Platelet mean volume (Bld) [Entitic vol] 8.9 fL [facility] Platelets (Bld) [#/Vol] 319 10*3/uL 130.0 - 400.0 10*3/uL [facility] RBC (Bld) [#/Vol] 4.61 10*6/uL 4.0 - 5.4 10*6/uL [facility] WBC (Bld) [#/Vol] 6.9 10*3/uL 3.6 - 11.0 10*3/uL [facility] GLUCOSE (POC DEVICE)on 06-22 GLUCOSE, POINT OF CARE 190 [facility] Interpretation and review of laboratory results Abnormal [facility] [employer] [phone] [facility] GLUCOSE, POINT OF CARE 323 [facility] Interpretation and review of laboratory results Abnormal [facility] [employer] [phone] [facility] GLUCOSE, POINT OF CARE 340 High [facility] Interpretation and review of laboratory results Abnormal [facility] [employer] [phone] [facility] GLUCOSE, POINT OF CARE 214 [facility] Interpretation and review of laboratory results Abnormal [facility] [employer] [phone] [facility] GLUCOSE, POINT OF CARE 213 High [facility] Interpretation and review of laboratory results Abnormal [facility] [employer] [phone] [facility] GLUCOSE, POINT OF CARE 230 [facility] Interpretation and review of laboratory results Abnormal [facility] [employer] [phone] [facility] GLUCOSE, POINT OF CARE 234 [facility] Interpretation and review of laboratory results Abnormal [facility] [employer] [phone] [facility] GLUCOSE, POINT OF CARE 252 [facility] Interpretation and review of laboratory results Abnormal [facility] [employer] [phone] [facility] GLUCOSE, POINT OF CARE 242 [facility] Interpretation and review of laboratory results Abnormal [facility] [employer] [phone] [facility] GLUCOSE, POINT OF CARE 245 [facility] Interpretation and review of laboratory results Abnormal [facility] [employer] [phone] [facility] GLUCOSE, POINT OF CARE 214 [facility] Interpretation and review of laboratory results Abnormal [facility] [employer] [facility] GLUCOSE, POINT OF CARE 212 [facility] Interpretation and review of laboratory results Abnormal [facility] [employer] [phone] [facility] GLUCOSE, POINT OF CARE 221 [facility] Interpretation and review of laboratory results Abnormal [facility] [employer] [id number] [facility] KETONES (BLOOD)on 06-22-2022 Beta hydroxybutyrate [Moles/Vol] 2.66 [facility] Interpretation and review of laboratory results Abnormal [facility] MAGNESIUMon 06-22-2022 Magnesium [Mass/Vol] 1.9 mg/dL Normal 1.6-2.3 [facility] Magnesium [Mass/Vol] 1.9 mg/dL [facility] Magnesium [Mass/Vol] 2.0 mg/dL Normal 1.6-2.3 [facility] Comment on above: Performed By: #### A CBC #### Testing performed at [facility] [address] [place] [address] Magnesium [Mass/Vol] 2.0 mg/dL [facility] MRSA SCREENon 06-22-2022 MRSA DNA ESPERANZA+probe Ql (Unsp spec) Not detected Normal NOT DETECTED [facility] Comment on above: Performed By: #### M RSAST #### Testing performed at [facility] [address] [place] [address] STAPH AUREUS SCREEN Detected Abnormal NOT DETECTED [facility] Comment on above: Result Comment: Test ing performed at [place] [address] Performed By: #### M RSAST #### Testing performed at [facility] [address] [place] [address] No Panel Informationon 06-22 [facility] POCT GLUCOSEon 06-22-2022 Glucose [Mass/Vol] 190 mg/dL High 70-100 [facility] TRAINING LEAD [id number] Normal [facility] Glucose [Mass/Vol] 323 mg/dL High 70-100 [facility] TRA[employer]ING LEAD [id number] Normal [facility] Glucose [Mass/Vol] 340 mg/dL High 70-100 [facility] TRAINING LEAD [id number] Normal [facility] Glucose [Mass/Vol] 214 mg/dL High 70-100 [facility] TRAINING LEAD [id number] Normal [facility] Glucose [Mass/Vol] 213 mg/dL High 70-100 [facility] TRAINING LEAD [id number] Normal [facility] Glucose [Mass/Vol] 230 mg/dL High 70-100 [facility] TRAINING LEAD [id number] Normal [facility] Glucose [Mass/Vol] 234 mg/dL High 70-100 [facility] TRAINING LEAD [id number] Normal [facility] Glucose [Mass/Vol] 252 mg/dL High 70-100 [facility] TRAINING LEAD Normal [facility] Glucose [Mass/Vol] 242 mg/dL High 70-100 [facility] TRAINING LEAD [id number] Normal [facility] Glucose [Mass/Vol] 245 mg/dL High 70-100 [facility] TRAINING LEAD Normal [facility] Glucose [Mass/Vol] 214 mg/dL High 70-100 [facility] TRAINING LEAD Normal [facility] Glucose [Mass/Vol] 212 mg/dL High 70-100 [facility] TRAINING LEAD Normal [facility] Glucose [Mass/Vol] 221 mg/dL High 70-100 [facility] TRAINING LEAD [id number] Normal [facility] Glucose [Mass/Vol] 192 mg/dL High 70-100 [facility] TRAINING LEAD [id number] Normal [facility] Glucose [Mass/Vol] 175 mg/dL High 70-100 [facility] TRAINING LEAD Normal [facility] RENAL FUNCTION PANELon 06-22 Albumin [Mass/Vol] 3.5 G/dl 3.5 - 5.0 G/dl [facility] Calcium [Mass/Vol] 8.9 mg/dL [facility] Chloride [Moles/Vol] 106 mmol/L [facility] Comment on above: Please note: Triglyc eride levels of 600mg/dL or higher may positively bias chloride results by approximately 2.1 mmol CO2 [Moles/Vol] 20 mmol/L Low [facility] Creatinine [Mass/Vol] 0.35 mg/dL Low [facility] GFR COMMENT Average GFR for 50-5 9 years old = 93. [facility] Comment on above: Chronic Kidney disea se, GFR = <60. Kidney failure, GFR = <15. The GFR estimate is not adjusted for extreme body surface area or acute process, nor has it been validated for women or ethnic groups other than and . GFR/1.73 sq M.predicted among blacks MDRD (S/P/Bld) [Vol rate/Area] 250 mL/min/{1.73_m2} ml/min/1.73 sq.m [facility] GFR/1.73 sq M.predicted among non-blacks MDRD (S/P/Bld) [Vol rate/Area] 206 mL/min/{1.73_m2} ml/min/1.73 sq.m [facility] Glucose post fast [Mass/Vol] 204 mg/dL High [facility] Comment on above: NORMAL <100 mg/dL PREDIABETES 101-126 mg/dL DIABETES 126 mg/dL or higher Interpretation and review of laboratory results Abnormal [facility] Phosphate [Mass/Vol] 2.0 mg/dL Low [facility] Potassium [Moles/Vol] 3.7 mmol/L [facility] Sodium [Moles/Vol] 135 mmol/L Low [facility] Urea nitrogen [Mass/Vol] 10 mg/dL [facility] Albumin [Mass/Vol] 3.3 G/dl Low 3.5 - 5.0 G/dl [facility] Calcium [Mass/Vol] 8.9 mg/dL [facility] Chloride [Moles/Vol] 106 mmol/L [facility] Comment on above: Please note: Triglyc eride levels of 600mg/dL or higher may positively bias chloride results by approximately 2.1 mmol CO2 [Moles/Vol] 17 mmol/L Critically low [facility] Comment on above: CALLED TO AND READ B ACK BY ALISON DOHERTY 06.22.22 @[address] [place] [address] Creatinine [Mass/Vol] 0.36 mg/dL Low [facility] GFR COMMENT Average GFR for 50-5 9 years old = 93. [facility] Comment on above: Chronic Kidney disea se, GFR = <60. Kidney failure, GFR = <15. The GFR estimate is not adjusted for extreme body surface area or acute process, nor has it been validated for women or ethnic groups other than and . GFR/1.73 sq M.predicted among blacks MDRD (S/P/Bld) [Vol rate/Area] 242 mL/min/{1.73_m2} ml/min/1.73 sq.m [facility] GFR/1.73 sq M.predicted among non-blacks MDRD (S/P/Bld) [Vol rate/Area] 200 mL/min/{1.73_m2} ml/min/1.73 sq.m [facility] Glucose post fast [Mass/Vol] 338 mg/dL High [facility] Comment on above: NORMAL <100 mg/dL PREDIABETES 101-126 mg/dL DIABETES 126 mg/dL or higher Interpretation and review of laboratory results Abnormal [facility] Phosphate [Mass/Vol] 2.2 mg/dL Low [facility] Potassium [Moles/Vol] 3.1 mmol/L Low [facility] Sodium [Moles/Vol] 134 mmol/L Low [facility] Urea nitrogen [Mass/Vol] 10 mg/dL [facility] Albumin [Mass/Vol] 3.4 G/dl Low 3.5 - 5.0 G/dl [facility] Calcium [Mass/Vol] 8.8 mg/dL [facility] Chloride [Moles/Vol] 108 mmol/L High [facility] Comment on above: Please note: Triglyc eride levels of 600mg/dL or higher may positively bias chloride results by approximately 2.1 mmol CO2 [Moles/Vol] 15 mmol/L Critically low [facility] Comment on above: CALLED TO AND READ B ACK BY ABBIE BEE IN ICU 06.22.2022 AT 05:58 TLA Creatinine [Mass/Vol] 0.37 mg/dL Low [facility] GFR COMMENT Average GFR for 50-5 9 years old = 93. [facility] Comment on above: Chronic Kidney disea se, GFR = <60. Kidney failure, GFR = <15. The GFR estimate is not adjusted for extreme body surface area or acute process, nor has it been validated for women or ethnic groups other than and . GFR/1.73 sq M.predicted among blacks MDRD (S/P/Bld) [Vol rate/Area] 234 mL/min/{1.73_m2} ml/min/1.73 sq.m [facility] GFR/1.73 sq M.predicted among non-blacks MDRD (S/P/Bld) [Vol rate/Area] 193 mL/min/{1.73_m2} ml/min/1.73 sq.m [facility] Glucose post fast [Mass/Vol] 254 mg/dL High [facility] Comment on above: NORMAL <100 mg/dL PREDIABETES 101-126 mg/dL DIABETES 126 mg/dL or higher Interpretation and review of laboratory results Abnormal [facility] Phosphate [Mass/Vol] 1.6 mg/dL Critically low [facility] Comment on above: CALLED TO AND READ B ACK BY ABBIE BEE IN ICU 06.22.2022 AT 05:58 T[facility] Potassium [Moles/Vol] 3.1 mmol/L Low [facility] Sodium [Moles/Vol] 135 mmol/L Low [facility] Urea nitrogen [Mass/Vol] 11 mg/dL [facility] Albumin [Mass/Vol] 3.4 G/dl Low 3.5 - 5.0 G/dl [facility] Calcium [Mass/Vol] 8.8 mg/dL [facility] Chloride [Moles/Vol] 111 mmol/L High [facility] Comment on above: Please note: Triglyc eride levels of 600mg/dL or higher may positively bias chloride results by approximately 2.1 mmol CO2 [Moles/Vol] 9 mmol/L Critically low [facility] Comment on above: CALLED TO AND READ B ACK BY KWAKU COCHRAN IN ICU 06.22.2022 AT 01:51 TLA Creatinine [Mass/Vol] 0.44 mg/dL Low [facility] GFR COMMENT Average GFR for 50-5 9 years old = 93. [facility] Comment on above: Chronic Kidney disea se, GFR = <60. Kidney failure, GFR = <15. The GFR estimate is not adjusted for extreme body surface area or acute process, nor has it been validated for women or ethnic groups other than and . GFR/1.73 sq M.predicted among blacks MDRD (S/P/Bld) [Vol rate/Area] 192 mL/min/{1.73_m2} ml/min/1.73 sq.m [facility] GFR/1.73 sq M.predicted among non-blacks MDRD (S/P/Bld) [Vol rate/Area] 158 mL/min/{1.73_m2} ml/min/1.73 sq.m [facility] Glucose post fast [Mass/Vol] 234 mg/dL High [facility] Comment on above: NORMAL <100 mg/dL PREDIABETES 101-126 mg/dL DIABETES 126 mg/dL or higher Interpretation and review of laboratory results Abnormal [facility] Phosphate [Mass/Vol] 1.7 mg/dL Critically low [facility] Comment on above: CALLED TO AND READ B ACK BY KWAKU COCHRAN IN ICU 06.22.2022 AT 01:50 TLA Potassium [Moles/Vol] 3.4 mmol/L Low [facility] Sodium [Moles/Vol] 135 mmol/L Low [facility] Urea nitrogen [Mass/Vol] 12 mg/dL [facility] RENAL PANEL,FASTINGon 2021 ALBUMIN 3.5 G/dl Normal 3.5-5.0 [facility] Calcium [Mass/Vol] 8.9 mg/dL Normal 8.4-10.2 [facility] Chloride [Moles/Vol] 106 mmol/L Normal 98-107 [facility] Comment on above: Result Comment: Sandip collins note: Triglyceride levels of 600mg/dL or higher may positively bias chloride results by approximately 2.1 mmol CO2 [Moles/Vol] 20 mmol/L Low 22-30 [facility] Creatinine [Mass/Vol] 0.35 mg/dL Low 0.7-1.2 [facility] EST. GFR, 250 ml/min/1.73sq.m [facility] EST. GFR,Non 206 ml/min/1.73sq.m [facility] GFR Information Average GFR for 50-5 9 years old = 93. Normal [facility] Comment on above: Result Comment: [employer] Wirer yaneth Kidney disease, GFR = <60. Kidney failure, GFR = <15. The GFR estimate is not adjusted for extreme body surface area or acute process, nor has it been validated for women or ethnic groups other than and . Glucose [Mass/Vol] 204 mg/dL High 70-100 [facility] Comment on above: Result Comment: NORMAL <100 mg/dL PREDIABETES 101-126 mg/dL DIABETES 126 mg/dL or higher PHOSPHOROUS 2.0 MG/DL Low 2.5-4.5 [facility] Potassium [Moles/Vol] 3.7 mmol/L Normal 3.5-5.1 [facility] Sodium [Moles/Vol] 135 mmol/L Low 137-145 [facility] Urea nitrogen [Mass/Vol] 10 mg/dL Normal 7-20 [facility] ALBUMIN 3.3 G/dl Low 3.5-5.0 [facility] Calcium [Mass/Vol] 8.9 mg/dL Normal 8.4-10.2 [facility] Chloride [Moles/Vol] 106 mmol/L Normal 98-107 [facility] Comment on above: Result Comment: Sandip collins note: Triglyceride levels of 600mg/dL or higher may positively bias chloride results by approximately 2.1 mmol CO2 [Moles/Vol] 17 mmol/L Critically low 22-30 [facility] Comment on above: Result Comment: CALL ED TO AND READ BACK BY ALISON DOHERTY 06.22.22 @[address] [place] [address] Creatinine [Mass/Vol] 0.36 mg/dL Low 0.7-1.2 [facility] EST. GFR, 242 ml/min/1.73sq.m Normal [facility] EST. GFR,Non 200 ml/min/1.73sq.m Normal [facility] GFR Information Average GFR for 50-5 9 years old = 93. Normal [facility] Comment on above: Result Comment: [employer] yaneth Kidney disease, GFR = <60. Kidney failure, GFR = <15. The GFR estimate is not adjusted for extreme body surface area or acute process, nor has it been validated for women or ethnic groups other than and . Glucose [Mass/Vol] 338 mg/dL High 70-100 [facility] Comment on above: Result Comment: NORMAL <100 mg/dL PREDIABETES 101-126 mg/dL DIABETES 126 mg/dL or higher PHOSPHOROUS 2.2 MG/DL Low 2.5-4.5 [facility] Potassium [Moles/Vol] 3.1 mmol/L Low 3.5-5.1 [facility] Sodium [Moles/Vol] 134 mmol/L Low 137-145 [facility] Urea nitrogen [Mass/Vol] 10 mg/dL Normal 7-20 [facility] ALBUMIN 3.4 G/dl Low 3.5-5.0 [facility] Calcium [Mass/Vol] 8.8 mg/dL Normal 8.4-10.2 [facility] Chloride [Moles/Vol] 108 mmol/L High 98-107 [facility] Comment on above: Result Comment: Sandip collins note: Triglyceride levels of 600mg/dL or higher may positively bias chloride results by approximately 2.1 mmol CO2 [Moles/Vol] 15 mmol/L Critically low 22-30 [facility] Comment on above: Result Comment: CALL ED TO AND READ BACK BY ABBIE BEE IN ICU 06.22.2022 AT 05:58 TLA Creatinine [Mass/Vol] 0.37 mg/dL Low 0.7-1.2 [facility] EST. GFR, 234 ml/min/1.73sq.m Normal [facility] EST. GFR,Non 193 ml/min/1.73sq.m [facility] GFR Information Average GFR for 50-5 9 years old = 93. Normal [facility] Comment on above: Result Comment: Electric [employer] yaneth Kidney disease, GFR = <60. Kidney failure, GFR = <15. The GFR estimate is not adjusted for extreme body surface area or acute process, nor has it been validated for women or ethnic groups other than and . Glucose [Mass/Vol] 254 mg/dL High 70-100 [facility] Comment on above: Result Comment: NORMAL <100 mg/dL PREDIABETES 101-126 mg/dL DIABETES 126 mg/dL or higher PHOSPHOROUS 1.6 MG/DL Critically low 2.5-4.5 [facility] Comment on above: Result Comment: CALL ED TO AND READ BACK BY ABBIE BEE IN ICU 06.22.2022 AT 05:58 TLA Potassium [Moles/Vol] 3.1 mmol/L Low 3.5-5.1 [facility] Sodium [Moles/Vol] 135 mmol/L Low 137-145 [facility] Urea nitrogen [Mass/Vol] 11 mg/dL Normal 7-20 [facility] CO2 [Moles/Vol] 9 mmol/L Critically low 22-30 [facility] Comment on above: Result Comment: CALL ED TO AND READ BACK BY KWAKU COCHRAN IN ICU 06.22.2022 AT 01:51 TLA Performed By: #### A CBC #### Testing performed at [address] [place] [address] ALBUMIN 3.4 G/dl Low 3.5-5.0 [facility] Comment on above: Performed By: #### A CBC #### [place] [address] Calcium [Mass/Vol] 8.8 mg/dL Normal 8.4-10.2 [facility] Comment on above: Performed By: #### A CBC #### [place] [address] Chloride [Moles/Vol] 111 mmol/L High 98-107 [facility] Comment on above: Result Comment: Sandip collins note: Triglyceride levels of 600mg/dL or higher may positively bias chloride results by approximately 2.1 mmol Performed By: #### A CBC #### [place] [address] Creatinine [Mass/Vol] 0.44 mg/dL Low 0.7-1.2 [facility] Comment on above: Performed By: #### A CBC #### Testing performed at [place] [id number] EST. GFR, 192 ml/min/1.73sq.m [facility] Comment on above: Performed By: #### A CBC #### [place] [address] EST. GFR,Non 158 ml/min/1.73sq.m [facility] Comment on above: Performed By: #### A CBC #### [place] [address] GFR Information Average GFR for 50-5 9 years old = 93. [facility] Comment on above: Result Comment: Electric Sign Wirer yaneth Kidney disease, GFR = <60. Kidney failure, GFR = <15. The GFR estimate is not adjusted for extreme body surface area or acute process, nor has it been validated for women or ethnic groups other than and . Performed By: #### A CBC #### Testing performed at [address] [address] Glucose [Mass/Vol] 234 mg/dL High 70-100 [facility] Comment on above: Result Comment: NORMAL <100 mg/dL PREDIABETES 101-126 mg/dL DIABETES 126 mg/dL or higher Performed By: #### A CBC #### Testing performed at [address] [address] PHOSPHOROUS 1.7 MG/DL Critically low 2.5-4.5 [facility] Comment on above: Result Comment: CALL ED TO AND READ BACK BY KWAKU COCHRAN IN ICU 06.22.2022 AT 01:50 TLA Performed By: #### A CBC #### Testing performed at [address] [address] Potassium [Moles/Vol] 3.4 mmol/L Low 3.5-5.1 [facility] Comment on above: Performed By: #### A CBC #### Testing performed at [address] [address] Sodium [Moles/Vol] 135 mmol/L Low 137-145 [facility] Comment on above: Performed By: #### A CBC #### Testing performed at [address] [address] Urea nitrogen [Mass/Vol] 12 mg/dL Normal 7-20 [facility] Comment on above: Performed By: #### A CBC #### Testing performed at [address] [place] [address] SCREEN: MRSA ONLY, NARES (IS OLATION SCREEN)on 06-22-2022 Interpretation and review of laboratory results Abnormal [facility] MRSA isol Org specific cx Ql (Nose) Not detected NOT DETECTED [facility] STAPHYOCOCCUS AUREUS BY PCR Detected Abnormal NOT DETECTED [facility] Comment on above: Testing performed at [address] B HYDROXYBUTYRATEon 06-21-20 22 B HYDROXYBUTYRATE 9.44 MMOL/L High 0.02-0.27 [facility] BLOOD GAS VENOUSon 2 Base deficit (BldV) [Moles/Vol] 21.3 High [facility] Carboxyhemoglobin (Bld) [Mass fraction] 0.6 % [facility] CO2 (BldC) [Partial pressure] 21 Low [facility] HCO3 (Bld) [Moles/Vol] 6.5 mmol/L Low [facility] Hemoglobin (Bld) [Mass/Vol] 17.1 g/dL [facility] Interpretation and review of laboratory results Abnormal [facility] Methemoglobin (BldC) [Mass fraction] 0.0 % [facility] Oxygen (BldC) [Partial pressure] 39 [facility] Oxyhemoglobin (Bld) [Mass fraction] 68.0 % [facility] pH (BldC) 7.10 Critically low 7.31 - 7.41 [facility] Comment on above: CALLED TO AND READ B ACK BY Lonnie CHO 06.21. @[address] [place] [address] CBCon 06-21-2022 ABSOLUTE BAS 0.1 10*3/uL Normal 0.0-0.2 [facility] Comment on above: Performed By: #### A CBC #### [place] [address] ABSOLUTE EOS 0.0 10*3/uL Normal 0.0-0.7 [facility] Comment on above: Performed By: #### A CBC #### Testing performed at [place] [id number] ABSOLUTE NEUTROPHIL COUNT 9.1 10*3/uL High 1.4-6.5 [facility] Comment on above: Performed By: #### A CBC #### Testing performed at [place] [id number] Basophils/100 WBC (Bld) 0.7 % Normal 0.0-2.0 [facility] Comment on above: Performed By: #### A CBC #### Testing performed at [place] [address] [place] [address] DTYPE AUTO DIFF Normal [facility] Comment on above: Performed By: #### A CBC #### Testing performed at [place] [address] [place] [facility] [place] [place] [address] Eosinophils/100 WBC (Bld) 0.0 % Normal 0.0-11.0 [facility] Comment on above: Performed By: #### A CBC #### Testing performed at [place] [address] [place] [facility] [place] [place] [address] Lymphocytes (Bld) [#/Vol] 1.1 10*3/uL Low 1.2-3.4 [facility] Comment on above: Performed By: #### A CBC #### Testing performed at [address] [place] [address] Lymphocytes/100 WBC (Bld) 9.8 % Low 20.0-55.0 [facility] Comment on above: Performed By: #### A CBC #### Testing performed at [place] [address] [place] [facility] [address] Monocytes (Bld) [#/Vol] 0.6 10*3/uL Normal 0.0-0.7 [facility] Comment on above: Performed By: #### A CBC #### Testing performed at [place] [address] [place] [facility] [place] [place] [address] Monocytes/100 WBC (Bld) 5.5 % Normal 0.0-10.0 [facility] Comment on above: Performed By: #### A CBC #### Testing performed at [address] [place] [address] Neutrophils/100 WBC (Bld) 84.0 % High 37.0-75.0 [facility] Comment on above: Performed By: #### A CBC #### Testing performed at [address] [place] [address] Erythrocyte distribution width (RBC) [Ratio] 14.4 % Normal 11.5-14.5 [facility] Comment on above: Performed By: #### A CBC #### Testing performed at [address] [address] Hematocrit (Bld) [Volume fraction] 52.8 % High 36.0-48.0 [facility] Comment on above: Performed By: #### A CBC #### Testing performed at [address] [address] Hemoglobin (Bld) [Mass/Vol] 17.3 g/dL High 12.0-16.0 [facility] Comment on above: Performed By: #### A CBC #### Testing performed at [address] [address] MCH (RBC) [Entitic mass] 29.4 pg Normal 26.0-35.0 [facility] Comment on above: Performed By: #### A CBC #### Testing performed at [address] [address] MCHC (RBC) [Mass/Vol] 32.8 g/dL Normal 27.0-37.0 [facility] Comment on above: Performed By: #### A CBC #### Testing performed at [address] [address] MCV (RBC) [Entitic vol] 89.7 fL Normal 80.0-100.0 [facility] Comment on above: Performed By: #### A CBC #### Testing performed at [address] [address] Platelet mean volume (Bld) [Entitic vol] 8.4 fL Normal 7.4-11.0 [facility] Comment on above: Performed By: #### A CBC #### Testing performed at [address] [address] Platelets (Bld) [#/Vol] 390 10*3/uL Normal 130.0-400.0 [facility] Comment on above: Performed By: #### A CBC #### Testing performed at [facility] [address] [place] [facility] [place] [address] RBC (Bld) [#/Vol] 5.88 10*6/uL High 4.0-5.4 [facility] Comment on above: Performed By: #### A CBC #### Testing performed at [facility] [address] [place] [address] WBC (Bld) [#/Vol] 10.9 10*3/uL Normal 3.6-11.0 [facility] Comment on above: Performed By: #### A CBC #### Testing performed at [place] [address] [place] [address] CBC, EDIF, PLATELETon 2021 ABSOLUTE BASOPHIL COUNT 0.1 10*3/uL 0.0 - 0.2 10*3/uL [facility] Basophils/100 WBC (Bld) 0.7 % 0.0 - 2.0 % [facility] Differential cell count method Nom (Bld) AUTO DIFF % [facility] Eosinophils (Bld) [#/Vol] 0.0 10*3/uL 0.0 - 0.7 10*3/uL [facility] Eosinophils/100 WBC (Bld) 0.0 % 0.0 - 11.0 % [facility] Erythrocyte distribution width (RBC) [Ratio] 14.4 % 11.5 - 14.5 % [facility] Hematocrit (Bld) [Volume fraction] 52.8 % High 36.0 - 48.0 % [facility] Hemoglobin (Bld) [Mass/Vol] 17.3 g/dL High [facility] Interpretation and review of laboratory results Abnormal [facility] Lymphocytes (Bld) [#/Vol] 1.1 10*3/uL Low 1.2 - 3.4 10*3/uL [facility] Lymphocytes/100 WBC (Bld) 9.8 % Low 20.0 - 55.0 % [facility] MCH (RBC) [Entitic mass] 29.4 pg 26.0 - 35.0 PG [facility] MCHC (RBC) [Mass/Vol] 32.8 g/dL [facility] MCV (RBC) [Entitic vol] 89.7 fL [facility] Monocytes (Bld) [#/Vol] 0.6 10*3/uL 0.0 - 0.7 10*3/uL [facility] Monocytes/100 WBC (Bld) 5.5 % 0.0 - 10.0 % [facility] Neutrophils (Bld) [#/Vol] 9.1 10*3/uL High 1.4 - 6.5 10*3/uL [facility] Neutrophils/100 WBC (Bld) 84.0 % High 37.0 - 75.0 % [facility] Platelet mean volume (Bld) [Entitic vol] 8.4 fL [facility] Platelets (Bld) [#/Vol] 390 10*3/uL 130.0 - 400.0 10*3/uL [facility] RBC (Bld) [#/Vol] 5.88 10*6/uL High 4.0 - 5.4 10*6/uL [facility] WBC (Bld) [#/Vol] 10.9 10*3/uL 3.6 - 11.0 10*3/uL [facility] CMP FASTINGon 06-21-2022 A:G RATIO 1.1 RATIO Low 1.3-2.2 [facility] Comment on above: Performed By: #### A CBC #### [place] [address] ALBUMIN 4.8 G/dl Normal 3.5-5.0 [facility] Comment on above: Performed By: #### A CBC #### Testing performed at [address] [address] ALP [Catalytic activity/Vol] 175 U/L High 38-126 [facility] Comment on above: Performed By: #### A CBC #### Testing performed at [address] [address] ALT [Catalytic activity/Vol] 23 U/L Normal <35 [facility] Comment on above: Performed By: #### A CBC #### Testing performed at [address] [place] [address] AST [Catalytic activity/Vol] 28 U/L Normal 14-36 [facility] Comment on above: Performed By: #### A CBC #### Testing performed at [address] [address] Bilirubin [Mass/Vol] 0.7 mg/dL Normal 0.2-1.3 [facility] Comment on above: Performed By: #### A CBC #### Testing performed at [address] [address] Calcium [Mass/Vol] 10.4 mg/dL High 8.4-10.2 [facility] Comment on above: Performed By: #### A CBC #### Testing performed at [address] [address] Chloride [Moles/Vol] 102 mmol/L Normal 98-107 [facility] Comment on above: Result Comment: Sandip collins note: Triglyceride levels of 600mg/dL or higher may positively bias chloride results by approximately 2.1 mmol Performed By: #### A CBC #### Testing performed at [address] [address] CO2 [Moles/Vol] mmol/L Critically low 22-30 [facility] Comment on above: Result Comment: CALL ED TO AND READ BACK BY Chiki FERRARI 12.6.22 @[address] [place] [address] Performed By: #### A CBC #### Testing performed at [address] [address] Creatinine [Mass/Vol] 0.72 mg/dL Normal 0.7-1.2 [facility] Comment on above: Performed By: #### A CBC #### Testing performed at [address] [address] EST. GFR, 109 ml/min/1.73sq.m Normal [facility] Comment on above: Performed By: #### A CBC #### Testing performed at [address] [place] [address] EST. GFR,Non 90 ml/min/1.73sq.m Normal [facility] Comment on above: Performed By: #### A CBC #### Testing performed at [address] [address] GFR Information Average GFR for 50-5 9 years old = 93. Normal [facility] Comment on above: Result Comment: Electric Sign Wirer yaneth Kidney disease, GFR = <60. Kidney failure, GFR = <15. The GFR estimate is not adjusted for extreme body surface area or acute process, nor has it been validated for women or ethnic groups other than and . Performed By: #### A CBC #### Testing performed at [address] [address] Glucose [Mass/Vol] 428 mg/dL Critically high 70-100 [facility] Comment on above: Result Comment: NORMAL <100 mg/dL PREDIABETES 101-126 mg/dL DIABETES 126 mg/dL or higher CALLED TO AND READ BACK BY Chiki FERRARI 12.6.22 @[facility] Performed By: #### A CBC #### Testing performed at [address] [address] Potassium [Moles/Vol] 4.7 mmol/L Normal 3.5-5.1 [facility] Comment on above: Performed By: #### A CBC #### Testing performed at [address] [address] Protein [Mass/Vol] 9.3 g/dL High 6.3-8.2 [facility] Comment on above: Performed By: #### A CBC #### Testing performed at [address] [address] Sodium [Moles/Vol] 131 mmol/L Low 137-145 [facility] Comment on above: Performed By: #### A CBC #### Testing performed at [address] [address] Urea nitrogen [Mass/Vol] 15 mg/dL Normal 7-20 [facility] Comment on above: Performed By: #### A CBC #### Testing performed at [place] [address] [place] [address] COMPREHENSIVE METABOLIC PANE Karthikeyan 06-21-2022 Albumin [Mass/Vol] 4.8 G/dl 3.5 - 5.0 G/dl [facility] Albumin/Globulin [Mass ratio] 1.1 {ratio} Low [facility] ALP [Catalytic activity/Vol] 175 U/L High [facility] ALT [Catalytic activity/Vol] 23 U/L NINF [facility] AST [Catalytic activity/Vol] 28 U/L [facility] Bilirubin [Mass/Vol] 0.7 mg/dL [facility] Calcium [Mass/Vol] 10.4 mg/dL High [facility] Chloride [Moles/Vol] 102 mmol/L [facility] Comment on above: Please note: Triglyc eride levels of 600mg/dL or higher may positively bias chloride results by approximately 2.1 mmol CO2 [Moles/Vol] Critically low [facility] Comment on above: CALLED TO AND READ B ACK BY Chiki FERRARI 12.6.22 @[address] [place] [address] Creatinine [Mass/Vol] 0.72 mg/dL [facility] GFR COMMENT Average GFR for 50-5 9 years old = 93. [facility] Comment on above: Chronic Kidney disea se, GFR = <60. Kidney failure, GFR = <15. The GFR estimate is not adjusted for extreme body surface area or acute process, nor has it been validated for women or ethnic groups other than and . GFR/1.73 sq M.predicted among blacks MDRD (S/P/Bld) [Vol rate/Area] 109 mL/min/{1.73_m2} ml/min/1.73 sq.m [facility] GFR/1.73 sq M.predicted among non-blacks MDRD (S/P/Bld) [Vol rate/Area] 90 mL/min/{1.73_m2} ml/min/1.73 sq.m [facility] Glucose post fast [Mass/Vol] 428 mg/dL Critically high [facility] Comment on above: NORMAL <100 mg/dL PREDIABETES 101-126 mg/dL DIABETES 126 mg/dL or higher CALLED TO AND READ BACK BY Chiki FERRARI 12.6.22 @[address] [place] [address] Interpretation and review of laboratory results Abnormal [facility] Potassium [Moles/Vol] 4.7 mmol/L [facility] Protein [Mass/Vol] 9.3 g/dL High [facility] Sodium [Moles/Vol] 131 mmol/L Low [facility] Urea nitrogen [Mass/Vol] 15 mg/dL [facility] ECG (SCANNED)Ordered By: Laura Mcdonough on 06-21-2022 [facility] GLUCOSE (POC DEVICE)on 06-21 GLUCOSE, POINT OF CARE [facility] Interpretation and review of laboratory results Abnormal [facility] Operator [id number] [facility] GLUCOSE, POINT OF CARE [facility] Interpretation and review of laboratory results Abnormal [facility] [employer] [id number] [facility] GLUCOSE, POINT OF CARE [facility] Interpretation and review of laboratory results Abnormal [facility] [employer] [phone] [facility] GLUCOSE, POINT OF CARE [facility] Interpretation and review of laboratory results Abnormal [facility] Operator [phone] [facility] GLUCOSE, POINT OF CARE [facility] Interpretation and review of laboratory results Abnormal [facility] Operator [id number] [facility] GLUCOSE, POINT OF CARE [facility] Interpretation and review of laboratory results Abnormal [facility] Operator [phone] [facility] INFLUENZA A AND B, PCRon FLUAV and FLUBV Ag IF Nom (Unsp spec) Negative NEGATIVE [facility] FLUBV Ag IA Ql (Unsp spec) Negative NEGATIVE [facility] Comment on above: TESTING PERFORMED BY [facility] KETONES (BLOOD)on 06-21-2022 Beta hydroxybutyrate [Moles/Vol] 9.44 [facility] Interpretation and review of laboratory results Abnormal [facility] MAGNESIUMon 06-21-2022 Magnesium [Mass/Vol] 2.1 mg/dL Normal 1.6-2.3 [facility] Magnesium [Mass/Vol] 2.1 mg/dL [facility] NOVEL CORONAVIRUSon 06-21-20 22 NARRATIVE This test was perfor med using isothermal ESPERANZA and has been approved as Emergency Use Authorization (EUA) for the qualitative detection [id number] nucleic acid. Normal [facility] SARS-CoV-2 (COVID-19) RNA ESPERANZA+probe Ql (Unsp spec) Not detected Normal NOT DETECTED [facility] Comment on above: Result Comment: Nega tive [...] Use Authorization (EUA) for the qualitative detection [id number] nucleic acid. [facility] SARS-CoV-2 (COVID-19) RNA ESPERANZA+probe Ql (Unsp spec) Not detected NOT DETECTED [facility] Comment on above: Negative results do not [...] patient is critically ill or clinically deteriorating. [facility] No Panel Informationon 06-21 [facility] POCT GLUCOSEon 06-21-2022 Glucose [Mass/Vol] 210 mg/dL High 70-100 [facility] TRAINING LEAD Normal [facility] Glucose [Mass/Vol] 280 mg/dL High 70-100 [facility] TRAINING LEAD [id number] Normal [facility] Glucose [Mass/Vol] 393 mg/dL High 70-100 [facility] TRAINING LEAD [id number] Normal [facility] Glucose [Mass/Vol] 400 mg/dL High 70-100 [facility] TRAINING LEAD [id number] Normal [facility] RAPID FLU Aon 06-21-2022 INFLUENZA A Negative Normal NEGATIVE [facility] INFLUENZA B Negative Normal NEGATIVE [facility] Comment on above: Result Comment: TEST ING PERFORMED BY [facility] RENAL FUNCTION PANELon 06-21 Albumin [Mass/Vol] 4.4 G/dl 3.5 - 5.0 G/dl [facility] Calcium [Mass/Vol] 9.7 mg/dL [facility] Chloride [Moles/Vol] 104 mmol/L [facility] Comment on above: Please note: Triglyc eride levels of 600mg/dL or higher may positively bias chloride results by approximately 2.1 mmol CO2 [Moles/Vol] Critically low [facility] Comment on above: CALLED TO AND READ B ACK BY ABBIE BEE IN ICU 06.21.2022 AT 19:52 TLA Creatinine [Mass/Vol] 0.66 mg/dL Low [facility] GFR COMMENT Average GFR for 50-5 9 years old = 93. [facility] Comment on above: Chronic Kidney disea se, GFR = <60. Kidney failure, GFR = <15. The GFR estimate is not adjusted for extreme body surface area or acute process, nor has it been validated for women or ethnic groups other than and . GFR/1.73 sq M.predicted among blacks MDRD (S/P/Bld) [Vol rate/Area] 120 mL/min/{1.73_m2} ml/min/1.73 sq.m [facility] GFR/1.73 sq M.predicted among non-blacks MDRD (S/P/Bld) [Vol rate/Area] 99 mL/min/{1.73_m2} ml/min/1.73 sq.m [facility] Glucose post fast [Mass/Vol] 369 mg/dL High [facility] Comment on above: NORMAL <100 mg/dL PREDIABETES 101-126 mg/dL DIABETES 126 mg/dL or higher Interpretation and review of laboratory results Abnormal [facility] Phosphate [Mass/Vol] 3.5 mg/dL [facility] Potassium [Moles/Vol] 4.2 mmol/L [facility] Sodium [Moles/Vol] 133 mmol/L Low [facility] Urea nitrogen [Mass/Vol] 16 mg/dL [facility] RENAL PANEL,FASTINGon 2021 ALBUMIN 4.4 G/dl Normal 3.5-5.0 [facility] Calcium [Mass/Vol] 9.7 mg/dL Normal 8.4-10.2 [facility] Chloride [Moles/Vol] 104 mmol/L Normal 98-107 [facility] Comment on above: Result Comment: Plebrendan se note: Triglyceride levels of 600mg/dL or higher may positively bias chloride results by approximately 2.1 mmol CO2 [Moles/Vol] mmol/L Critically low 22-30 [facility] Comment on above: Result Comment: CALL ED TO AND READ BACK BY ABBIE BEE IN ICU 06.21.2022 AT 19:52 TLA Creatinine [Mass/Vol] 0.66 mg/dL Low 0.7-1.2 [facility] EST. GFR, 120 ml/min/1.73sq.m [facility] EST. GFR,Non 99 ml/min/1.73sq.m [facility] GFR Information Average GFR for 50-5 9 years old = 93. Normal [facility] Comment on above: Result Comment: Electric [employer] yaneth Kidney disease, GFR = <60. Kidney failure, GFR = <15. The GFR estimate is not adjusted for extreme body surface area or acute process, nor has it been validated for women or ethnic groups other than and . Glucose [Mass/Vol] 369 mg/dL High 70-100 [facility] Comment on above: Result Comment: NORMAL <100 mg/dL PREDIABETES 101-126 mg/dL DIABETES 126 mg/dL or higher PHOSPHOROUS 3.5 MG/DL Normal 2.5-4.5 [facility] Potassium [Moles/Vol] 4.2 mmol/L Normal 3.5-5.1 [facility] Sodium [Moles/Vol] 133 mmol/L Low 137-145 [facility] Urea nitrogen [Mass/Vol] 16 mg/dL Normal 7-20 [facility] TROPONIN I, HIGH SENSITIVITY on 06-21-2022 TROPONIN I, HIGH SENSITIVITY 9 pg/mL Normal 0-12 [facility] Comment on above: Result Comment: Indeterminant: >12 to 100 pg/mL female >20 to 100 pg/mL male Indicative of myocardial injury. Serial sampling is recommended, a change of greater than or equal to 20 pg/mL is indicative of acute coronary syndrome. TROPONIN I, HIGH SENSITIVITY 9 pg/mL 0 - 12 pg/mL [facility] Comment on above: Indeterminant: >12 to 100 pg/mL female >20 to 100 pg/mL male Indicative of myocardial injury. Serial sampling is recommended, a change of greater than or equal to 20 pg/mL is indicative of acute coronary syndrome. [facility] URINALYSIS, MACROon 06-21-20 22 Bilirubin Ql (U) SMALL Abnormal NEGATIVE [facility] Clarity (U) CLEAR CLEAR [facility] Color (U) YELLOW YELLOW [facility] Glucose Test strip (U) [Mass/Vol] 500 mg/dl Abnormal NEGATIVE [facility] Hemoglobin Ql (U) SMALL Abnormal NEGATIVE [facility] Interpretation and review of laboratory results Abnormal [facility] Ketones (U) [Mass/Vol] mg/dL Abnormal NEGATIVE mg/dl [facility] Leukocyte esterase Test strip Ql (U) Negative NEGATIVE [facility] Nitrite Ql (U) Negative NEGATIVE [facility] pH (U) 5.5 [pH] 5.0 - 7.0 [facility] Protein Ql (U) 100 mg/dl Abnormal NEGATIVE [facility] Specific gravity (U) [Rel density] >1.030 High 1.010 - 1.025 [facility] Urobilinogen (U) [Mass/Vol] 0.2 mg/dL [facility] URINE MACROSCOPICon 06-21-20 22 Bilirubin Ql (U) SMALL Abnormal NEGATIVE [facility] Clarity (U) CLEAR Normal CLEAR [facility] Color (U) YELLOW Normal YELLOW [facility] Glucose Ql (U) 500 mg/dl Abnormal NEGATIVE [facility] pH (U) 5.5 [pH] Normal 5.0-7.0 [facility] Protein (U) [Mass/Vol] 100 mg/dL Abnormal NEGATIVE [facility] URINE HEMOGLOBIN SMALL Abnormal NEGATIVE [facility] URINE KETONE >160 Abnormal NEGATIVE [facility] URINE LEUKOTEST Negative Normal NEGATIVE [facility] URINE NITRATES Negative Normal NEGATIVE [facility] URINE SPEC GRAVITY >1.030 High 1.010-1.025 [facility] Urobilinogen Qn (U) 0.2 {Vereince'U}/dL Normal 0.2-1.0 [facility] URINE MICROSCOPICon 06-21-20 22 Bacteria LM.HPF (Urine sed) [#/Area] Negative Normal NEGATIVE [facility] CASTS NONE Normal NONE [facility] CRYSTAL NONE Normal NONE [facility] Epithelial cells LM Ql (Urine sed) 1 TO 5 Normal [facility] Mucus Ql (Urine sed) Negative Normal NEGATIVE [facility] URINE COMMENT CULTURE CRITERIA NOT MET, NO CULTURE PERFORMED. Normal [facility] URINE RBC'S 1 TO 5 Normal NEGATIVE [facility] URINE WBC'S 1 TO 5 Normal NEGATIVE [facility] Bacteria LM.HPF (Urine sed) [#/Area] Negative NEGATIVE [facility] Casts LM.LPF (Urine sed) [#/Area] NONE NONE /LPF [facility] Crystals LM Nom (Urine sed) NONE NONE [facility] Epithelial cells LM Ql (Urine sed) 1 TO 5 /HPF [facility] Mucus Ql (Urine sed) Negative NEGATIVE [facility] RBC LM.HPF (Urine sed) [#/Area] 1 TO 5 NEGATIVE /HPF [facility] Urine sediment comments LM Brian (Urine sed) CULTURE CRITERIA NOT MET, NO CULTURE PERFORMED. [facility] WBC LM.HPF (Urine sed) [#/Area] 1 TO 5 NEGATIVE /HPF [facility] VENOUS BLOOD GASon 2 BASE DEFICIT 21.3 mEq/L High 0-2 [facility] cHCO3 (P,ST)C 6.5 mEq/L Low 22-26 [facility] ctHb 17.1 g/dl Normal [facility] FCOHb 0.6 % Normal [facility] FMetHb 0.0 % Normal [facility] FO2Hb 68.0 % Normal [facility] pCO2, venous or cap 21 mmHg Low 41-51 [facility] pH,venous or cap 7.10 Critically low 7.31-7.41 [facility] Comment on above: Result Comment: CALL ED TO AND READ BACK BY Lonnie CHO 12.01.05 @1883 [facility] pO2,venous or cap 39 mmHg Normal 35-42 [facility] sO2,venous or cap 68.4 % Normal 68-77 [facility] [place] CONTINUOUS GLUCOSE MONITO RING ANALYSIS I&Henrique 04-07-2022 Manish Shea MD 04/07/2022 3:20 PM CGM download shows 0% of blood sugars at target range, 2% high, 98% very high, GMI = 12.1%. Hyperglycemia at all timeframes. Lowest blood sugars approximately 200 mg/dL. This CGM download, we discussed insulin therapy versus bariatric surgery. [facility] Manish Shea MD - 04/07/2022 2:15 PM EDT CGM download shows 0% of blood sugars at target range, 2% high, 98% very high, GMI = 12.1%. Hyperglycemia at all timeframes. Lowest blood sugars approximately 200 mg/dL. This CGM download, we discussed insulin therapy versus bariatric surgery. [facility] [place] CONTINUOUS GLUCOSE MONITO RING ANALYSIS I&ROrdered By: Maylin Stone on 04-07-2022 [facility] C-Peptideon 03-29-2022 C-Peptide 2.4 ng/mL 1.1 - 4.4 ng/mL [facility] CBC with Auto Differentialon 03-29-2022 Absolute Eos # 0.10 [facility] Absolute Lymph # 1.40 [facility] Absolute [place] # 0.40 [facility] Basophils (Bld) [#/Vol] 0.00 10*3/uL [facility] Basophils/100 WBC (Bld) 1 % 0 - 2 % [facility] Differential Type YES [facility] Eosinophils/100 WBC (Bld) 2 % 0 - 5 % [facility] Hematocrit (Bld) [Volume fraction] 44.7 % 36 - 46 % [facility] Hemoglobin (Bld) [Mass/Vol] 14.7 g/dL 12 - 16 g/dL [facility] Interpretation and review of laboratory results Abnormal [facility] Lymphocytes/100 WBC (Bld) 29 % 15 - 40 % [facility] MCH (RBC) [Entitic mass] 28.0 pg 26 - 34 pg [facility] MCHC (RBC) [Mass/Vol] 33.0 g/dL 31 - 3 7 g/dL [facility] MCV (RBC) [Entitic vol] 85.1 fL 80 - 100 fL [facility] Monocytes/100 WBC (Bld) 9 % High 4 - 8 % [facility] Platelet distribution width (Bld) [Ratio] 13.9 % 12.1 - 15.2 % [facility] Platelets (Bld) [#/Vol] 291 10*3/uL [facility] RBC (Bld) [#/Vol] 5.25 10*6/uL High 4 - 5.2 m/uL [facility] Segmented neutrophils/100 WBC (Bld) 59 % 47 - 75 % [facility] Segs Absolute 2.80 [facility] WBC (Bld) [#/Vol] 4.7 10*3/uL [facility] Comprehensive Metabolic Pane karthikeyan 03-29-2022 Albumin [Mass/Vol] 4.1 g/dL 3.5 - 5.2 g/dL [facility] ALP (Bld) [Catalytic activity/Vol] 87 U/L 35 - 104 U/L [facility] ALT [Catalytic activity/Vol] 44 U/L High 5 - 33 U/L [facility] Anion gap [Moles/Vol] 12 mmol/L 9 - 17 mmol/L [facility] AST [Catalytic activity/Vol] 23 U/L NINF - 32 U/L [facility] Bilirubin [Mass/Vol] 0.2 mg/dL Low 0.3 - 1 .2 mg/dL [facility] Calcium [Mass/Vol] 9.8 mg/dL 8.6 - 10. 4 mg/dL [facility] Chloride [Moles/Vol] 95 mmol/L Low 98 - 10 7 mmol/L [facility] CO2 [Moles/Vol] 29 mmol/L 20 - 31 mmol/L [facility] Creatinine [Mass/Vol] mg/dL Low 0.5 - 0.9 mg/dL [facility] Free PSA/Total PSA [Mass fraction] 6.9 g/dL 6.4 - 8.3 g/dL [facility] GFR Can not be calculated 60 - PINF mL/min [facility] GFR Non- Can not be calculated 60 - PINF mL/min [facility] GFR/1.73 sq M.predicted MDRD (S/P/Bld) [Vol rate/Area] [facility] Comment on above: Average GFR for 50-5 9 years old: 93 mL/min/1.73sq m Chronic Kidney Disease: <60 mL/min/1.73sq m Kidney failure: <15 mL/min/1.73sq m eGFR calculated using average adult body mass. Additional eGFR calculator available at: http://www.Health Informatics.NeoDiagnostix/multiple_crcl_2011.htm Glucose [Mass/Vol] 383 mg/dL High 70 - 99 mg/dL [facility] Interpretation and review of laboratory results Abnormal [facility] Potassium [Moles/Vol] 4.9 mmol/L 3.7 - 5.3 mmol/L [facility] Sodium [Moles/Vol] 136 mmol/L 135 - 144 mmol/L [facility] Urea nitrogen (BldV) [Mass/Vol] 10 mg/dL 6 - 20 mg/dL [facility] Urea nitrogen/Creatinine (Bld) [Mass ratio] Result cannot be calculated, Creatinine below linear range. 9 - 20 [facility] Hemoglobin A1Con 03-29-2022 Glucose [Mass/Vol] 306 mg/dL [facility] Comment on above: The ADA and AACC rec ommend providing the estimated average glucose result to permit better patient understanding of their HBA1c result. HbA1c (Bld) [Mass fraction] 12.3 % High 4 - 6 % [facility] Interpretation and review of laboratory results Abnormal [facility] Insulin, totalon 03-29-2022 Insulin 7.9 mU/L [facility] Insulin Comment FASTING [facility] Insulin Reference Range: [facility] Comment on above: Fastin.6-24.9 30 min: 20-112 60 min: 29-88 90 min: 26-84 120 min: 22-79 LDL Cholesterol, Directon Cholesterol in LDL [Mass/Vol] 235 mg/dL High NINF - 100 mg/dL [facility] Interpretation and review of laboratory results Abnormal [facility] Lipid Panelon 03-29-2022 Cholesterol [Mass/Vol] 360 mg/dL High NINF - 200 mg/dL [facility] Comment on above: Cholesterol Guidelines: <200 Desirable 200-240 Borderline >240 Undesirable Cholesterol in HDL [Mass/Vol] 46 mg/dL 40 - PINF mg/dL [facility] Comment on above: HDL Guidelines: <40 Undesirable 40-59 Borderline >59 Desirable Cholesterol.total/Cho lesterol in HDL [Mass ratio] 7.8 {ratio} High NINF - 5 [facility] Interpretation and review of laboratory results Abnormal [facility] LDL Cholesterol 0 - 130 mg/dL [facility] Comment on above: Calculation not sonia d for Triglyceride value greater than 400 mg/dL. Direct LDL reflexed LDL Guidelines: <100 Desirable 100-129 Near to/above Desirable 130-159 Borderline >159 Undesirable Direct (measured) LDL and calculated LDL are not interchangeable tests. Triglyceride [Mass/Vol] 475 mg/dL High NINF - 150 mg/dL [facility] Comment on above: Triglyceride Guidelines: <150 Desirable 150-199 Borderline 200-499 High >499 Very high Based on AHA Guidelines for fasting triglyceride, April 2012. [facility] No Panel Informationon 03-29 [facility] Patient Fasting?on 2 Patient Fasting? YES [facility] [place] CONTINUOUS GLUCOSE MONITO RING ANALYSIS I&Henrique 02-03-2022 Manish Shea MD 02/03/2022 4:05 PM CGM download her showing 0% of blood sugars at target range, 6% high, 94% very high, GMI = 11.3%, no hypoglycemia. There is hyperglycemia at all timeframes. Small response to medications last visit, we will increased doses of GLP-1 and sulfonylurea. Insulin therapy recommended, but declined by patient. [facility] [place] CONTINUOUS GLUCOSE MONITO RING ANALYSIS I&Henrique 12-09-2021 Manish Shea MD 12/09/2021 3:17 PM CGM download shows 0% of blood sugars at target, 1% high, 99% very high. Based on CGM download, we need to intensify pharmacologic therapy. She is already on a low-carb diet. [facility] Manish Shea MD - 12/09/2021 2:30 PM EDT CGM download shows 0% of blood sugars at target, 1% high, 99% very high. Based on CGM download, we need to intensify pharmacologic therapy. She is already on a low-carb diet. [facility] [place] CONTINUOUS GLUCOSE MONITO RING ANALYSIS I&ROrdered By: Maylin Stone on 12-09-2021 [facility] CBCon 08-11-2021 Hematocrit (Bld) [Volume fraction] 44.9 % 36 - 46 % [facility] Hemoglobin.gastrointe stinal spec 1 Ql (Stl) 15.0 g/dL 12.0 - 16.0 g/dL [facility] Interpretation and review of laboratory results Abnormal [facility] MCH (RBC) [Entitic mass] 28.4 pg 26 - 34 pg [facility] MCHC (RBC) [Mass/Vol] 33.5 g/dL 31 - 3 7 g/dL [facility] MCV (RBC) [Entitic vol] 84.9 fL 80 - 100 fL [facility] NRBC Automated NOT REPORTED per 100 WBC [facility] ealt Platelet distribution width (Bld) [Ratio] 12.9 % 12.1 - 15.2 % [facility] Platelet mean volume (Bld) [Entitic vol] NOT REPORTED 6.0 - 12.0 fL [facility] Platelets (Bld) [#/Vol] 369 10*3/uL [facility] RBC (Bld) [#/Vol] 5.29 10*6/uL High 4.0 - 5.2 m/uL [facility] WBC (Bld) [#/Vol] 5.6 10*3/uL [facility] Comprehensive Metabolic Pane karthikeyan 08-11-2021 Albumin [Mass/Vol] 4.1 g/dL 3.5 - 5.2 g/dL [facility] Albumin/Globulin Ratio NOT REPORTED [facility] ALP (Bld) [Catalytic activity/Vol] 102 U/L 35 - 104 U/L [facility] ALT [Catalytic activity/Vol] 24 U/L 5 - 33 U/L [facility] Anion gap [Moles/Vol] 14 mmol/L 9 - 17 mmol/L [facility] AST [Catalytic activity/Vol] 16 U/L <32 [facility] Bilirubin [Mass/Vol] 0.20 mg/dL Low 0.30 - 1.20 mg/dL [facility] Calcium [Mass/Vol] 9.6 mg/dL 8.6 - 10. 4 mg/dL [facility] Chloride [Moles/Vol] 97 mmol/L Low 98 - 10 7 mmol/L [facility] CO2 [Moles/Vol] 23 mmol/L 20 - 31 mmol/L [facility] Creatinine [Mass/Vol] mg/dL Low 0.50 - 0.90 mg/dL [facility] Free PSA/Total PSA [Mass fraction] 6.9 g/dL 6.4 - 8.3 g/dL [facility] GFR Can not be calculated >60 mL/min [facility] GFR Non- Can not be calculated >60 mL/min [facility] th GFR/1.73 sq M.predicted MDRD (S/P/Bld) [Vol rate/Area] [facility] Comment on above: Average GFR for 50-5 9 years old: 93 mL/min/1.73sq m Chronic Kidney Disease: <60 mL/min/1.73sq m Kidney failure: <15 mL/min/1.73sq m eGFR calculated using average adult body mass. Additional eGFR calculator available at: http://www.Health Informatics.NeoDiagnostix/multiple_crcl_2012.htm GFR/1.73 sq M.predicted MDRD (S/P/Bld) [Vol rate/Area] NOT REPORTED [facility] Glucose [Mass/Vol] 386 mg/dL Critically high 70 - 9 9 mg/dL [facility] Interpretation and review of laboratory results Abnormal [facility] Potassium [Moles/Vol] 4.5 mmol/L 3.7 - 5.3 mmol/L [facility] Sodium [Moles/Vol] 134 mmol/L Low 135 - 144 mmol/L [facility] Urea nitrogen (BldV) [Mass/Vol] 14 mg/dL 6 - 20 mg/dL [facility] Urea nitrogen/Creatinine (Bld) [Mass ratio] Result cannot be calculated, Creatinine below linear range. [facility] [employer] Microalbumin, Uron 2 Albumin/Creatinine DL <= 20 mg/L (24H U) [Mass ratio] 37 mg/L High <21 [facility] Albumin/Creatinine DL <= 20 mg/L (U) [Ratio] 30 High <25 mcg/mg creat [facility] Creatinine [Mass/Vol] 124.8 mg/dL 28.0 - 217.0 mg/dL [facility] Interpretation and review of laboratory results Abnormal [facility] Patient Fasting?on 2 Patient Fasting? yes [facility] alth [employer] Basic Metabolic PanelOrdered By: Roverto Barbour on 04-16-2021 Anion gap [Moles/Vol] 10 mmol/L 9 - 17 mmol/L [employer] Work Phone: Calcium [Mass/Vol] 9.4 mg/dL 8.6 - 10. 4 mg/dL [employer] Phone: Chloride [Moles/Vol] 103 mmol/L 98 - 10 7 mmol/L [facility] Work Phone: CO2 [Moles/Vol] 25 mmol/L 20 - 31 mmol/L [facility] Work Phone: Creatinine [Mass/Vol] 0.44 mg/dL Low 0.50 - 0.90 mg/dL [employer] Phone: GFR >60 >60 mL/min [employer] Phone: GFR Non- >60 >60 mL/min [employer] Phone: GFR/1.73 sq M.predicted MDRD (S/P/Bld) [Vol rate/Area] [employer] Phone: Comment on above: Average GFR for 50-5 9 years old: 93 mL/min/1.73sq m Chronic Kidney Disease: <60 mL/min/1.73sq m Kidney failure: <15 mL/min/1.73sq m eGFR calculated using average adult body mass. Additional eGFR calculator available at: http://www.[employer]/multiple_crcl_2012.htm GFR/1.73 sq M.predicted MDRD (S/P/Bld) [Vol rate/Area] NOT REPORTED [employer] Phone: Glucose [Mass/Vol] 303 mg/dL High 70 - 99 mg/dL [employer] Phone: Interpretation and review of laboratory results Abnormal [employer] Phone: Potassium [Moles/Vol] 3.5 mmol/L Low 3.7 - 5.3 mmol/L [employer] Phone: Sodium [Moles/Vol] 138 mmol/L 135 - 144 mmol/L [employer] Phone: Urea nitrogen (BldV) [Mass/Vol] 8 mg/dL 6 - 20 mg/dL [employer] Phone: Urea nitrogen/Creatinine (Bld) [Mass ratio] 18 [employer] Phone: [employer] Phone: Glucose, Whole BloodOrdered By: Roverto Barbour on 04-16-2021 Glucose [Mass/Vol] 221 mg/dL High 65 - 99 mg/dL [employer] Phone: Interpretation and review of laboratory results Abnormal [employer] Phone: [employer] Phone: Basic Metabolic PanelOrdered By: Roverto Barbour on 04-15-2021 Anion gap [Moles/Vol] 10 mmol/L 9 - 17 mmol/L [employer] Phone: Calcium [Mass/Vol] 9.3 mg/dL 8.6 - 10. 4 mg/dL [facility] Phone: Chloride [Moles/Vol] 106 mmol/L 98 - 10 7 mmol/L [employer] Phone: CO2 [Moles/Vol] 19 mmol/L Low 20 - 31 mmol/L [employer] Phone: Creatinine [Mass/Vol] 0.45 mg/dL Low 0.50 - 0.90 mg/dL [employer] Phone: GFR >60 >60 mL/min [employer] Phone: GFR Non- >60 >60 mL/min [employer] Phone: GFR/1.73 sq M.predicted MDRD (S/P/Bld) [Vol rate/Area] [employer] Phone: Comment on above: Average GFR for 50-5 9 years old: 93 mL/min/1.73sq m Chronic Kidney Disease: <60 mL/min/1.73sq m Kidney failure: <15 mL/min/1.73sq m eGFR calculated using average adult body mass. Additional eGFR calculator available at: http://www.Health Informatics.com/multiple_crcl_2012.htm GFR/1.73 sq M.predicted MDRD (S/P/Bld) [Vol rate/Area] NOT REPORTED [facility] Phone: Glucose [Mass/Vol] 261 mg/dL High 70 - 99 mg/dL [facility] Phone: Potassium [Moles/Vol] 3.4 mmol/L Low 3.7 - 5.3 mmol/L [facility] Phone: Sodium [Moles/Vol] 135 mmol/L 135 - 144 mmol/L [facility] Phone: Urea nitrogen (BldV) [Mass/Vol] 7 mg/dL 6 - 20 mg/dL [facility] Phone: Urea nitrogen/Creatinine (Bld) [Mass ratio] 16 [employer] Phone: Beta-HydroxybuterateOrdered By: Roverto Barbour on 04-15-2021 Beta-Hydroxybutyrate 1.45 mmol/L High 0.02 - 0.27 mmol/L [facility] Phone: ECHO Complete 2D W Doppler W ColorOrdered By: Roverto Barbour on 04-15-2021 [facility] Transthoracic Echocardiography Report (TTE) Patient Name GAMAL BRENNAN Date of Study 04/14/2021 L Date of 1970 Gender Female Age 51 year(s) Race Room Number 0263 Height: 65 inch, 165.1 cm Corporate ID [id number] Weight: 177 pounds, 80.3 kg # Patient Acct [id number] BSA: 1.88 m^2 BMI: 29.46 kg/m^2 # MR # [id number] Informatics Developer Debra Steiner, RT Interpreting Physician Jori Rodriguez Fellow Referring Nurse Practitioner Interpreting Referring Physician Roverto Barbour Type of Study TTE procedure:2D Echocardiogram, M-Mode, Doppler, Color Doppler. Procedure Date Date: 04/14/2021 Start: 08:44 AM Study Location: [facility] Indications:Heart murmur and Abnormal ECG. Patient Status: [...] Peak Gradient: 5.6 mmHg Peak TR Gradient: 26.88429 mmHg Estimated RA Pressure: 5 mmHg Estimated PASP: 31.72 mmHg Diastology / Tissue Doppler Septal Wall E' velocity:0.06 m/s Lateral Wall E' velocity:0.06 m/s Lateral Wall E/E':14.77 [employer] Work Phone: [place], pn Incoming Cardio Results From [facility]/Ge - 04/15/2021 6:13 AM EDT [facility] Transthoracic Echocardiography Report (TTE) Patient Name GAMAL BRENNAN Date of Study 04/14/2021 L Date of 1970 Gender Female Age 51 year(s) Race Room Number 0263 Height: 65 inch, 165.1 cm Corporate ID [id number] Weight: 177 pounds, 80.3 kg # Patient Acct [id number] BSA: 1.88 m^2 BMI: 29.46 kg/m^2 # MR # [id number] Informatics Developer Debra Steiner, RT Interpreting Physician Jori Rodriguez Fellow Referring Nurse Practitioner Interpreting Referring Physician Roverto Barbour Type of Study TTE procedure:2D Echocardiogram, M-Mode, Doppler, Color Doppler. Procedure Date Date: 04/14/2021 Start: 08:44 AM Study Location: [facility] Indications:Heart murmur and Abnormal ECG. Patient Status: [...] echo in 1 year. Signature --- - Electronically signed by AKOSUA Doty)Marko)(JENI)([facility] [[email or web address])(Sonog rapher) on 04/14/2021 09:29 AM --- - --- - --- - FINDINGS [...] Peak Gradient: 5.6 mmHg Peak TR Gradient: 26.39134 mmHg Estimated RA Pressure: 5 mmHg Estimated PASP: 31.72 mmHg Diastology / Tissue Doppler Septal Wall E' velocity:0.06 m/s Lateral Wall E' velocity:0.06 m/s Lateral Wall E/E':14.77 [facility] Phone: [facility] Phone: Glucose, Whole BloodOrdered By: Roverto Barbour on 04-15-2021 Glucose [Mass/Vol] 309 mg/dL High 65 - 99 mg/dL [facility] Phone: Interpretation and review of laboratory results Abnormal [facility] Phone: [facility] Phone: Glucose [Mass/Vol] 247 mg/dL High 65 - 99 mg/dL [facility] Phone: Interpretation and review of laboratory results Abnormal [facility] Phone: [facility] Phone: Glucose [Mass/Vol] 262 mg/dL High 65 - 99 mg/dL [facility] Phone: Interpretation and review of laboratory results Abnormal [facility] Phone: [employer] Work Phone: Glucose [Mass/Vol] 306 mg/dL High 65 - 99 mg/dL [facility] Phone: Interpretation and review of laboratory results Abnormal [facility] Phone: [facility] Phone: Hemoglobin [id number] By: Juan Jose Barbour on 04-15-2021 Glucose [Mass/Vol] 395 mg/dL [facility] Phone: Comment on above: The ADA and AACC rec ommend providing the estimated average glucose result to permit better patient understanding of their HBA1c result. HbA1c (Bld) [Mass fraction] 15.4 % High 4.0 - 6.0 % [facility] Phone: Interpretation and review of laboratory results Abnormal [facility] Phone: [facility] Phone: MagnesiumOrdered By: Roverto dozier on 04-15-2021 Magnesium [Mass/Vol] 1.8 mg/dL 1.6 - 2 .6 mg/dL [facility] Phone: No Panel InformationOrdered By: Roverto Barbour on 04-15-2021 Interpretation and review of laboratory results Abnormal [facility] Phone: [facility] Phone: PhosphorusOrdered By: Roverto Barbour on 04-15-2021 Phosphate [Mass/Vol] 2.4 mg/dL Low 2.6 - 4 .5 mg/dL [facility] Phone: Basic Metabolic PanelOrdered By: Roverto Barbour on 04-14-2021 Anion gap [Moles/Vol] 11 mmol/L 9 - 17 mmol/L [facility] Phone: Calcium [Mass/Vol] 9.2 mg/dL 8.6 - 10. 4 mg/dL [facility] Phone: Chloride [Moles/Vol] 104 mmol/L 98 - 10 7 mmol/L [facility] Phone: CO2 [Moles/Vol] 17 mmol/L Low 20 - 31 mmol/L [facility] Phone: Creatinine [Mass/Vol] 0.53 mg/dL 0.50 - 0.90 mg/dL [facility] Phone: GFR >60 >60 mL/min [facility] Phone: GFR Non- >60 >60 mL/min [facility] Phone: GFR/1.73 sq M.predicted MDRD (S/P/Bld) [Vol rate/Area] [facility] Phone: Comment on above: Average GFR for 50-5 9 years old: 93 mL/min/1.73sq m Chronic Kidney Disease: <60 mL/min/1.73sq m Kidney failure: <15 mL/min/1.73sq m eGFR calculated using average adult body mass. Additional eGFR calculator available at: http://www.Health Informatics.[employer]/multiple_crcl_2012.htm GFR/1.73 sq M.predicted MDRD (S/P/Bld) [Vol rate/Area] NOT REPORTED [facility] Phone: Glucose [Mass/Vol] 243 mg/dL High 70 - 99 mg/dL [facility] Phone: Potassium [Moles/Vol] 3.2 mmol/L Low 3.7 - 5.3 mmol/L [facility] Phone: Sodium [Moles/Vol] 132 mmol/L Low 135 - 144 mmol/L [facility] Phone: Urea nitrogen (BldV) [Mass/Vol] 9 mg/dL 6 - 20 mg/dL [facility] Phone: Urea nitrogen/Creatinine (Bld) [Mass ratio] 17 [facility] Phone: Anion gap [Moles/Vol] 12 mmol/L 9 - 17 mmol/L [facility] Phone: Calcium [Mass/Vol] 9.8 mg/dL 8.6 - 10. 4 mg/dL [facility] Phone: Chloride [Moles/Vol] 103 mmol/L 98 - 10 7 mmol/L [facility] Phone: CO2 [Moles/Vol] 17 mmol/L Low 20 - 31 mmol/L [facility] Phone: Creatinine [Mass/Vol] 0.61 mg/dL 0.50 - 0.90 mg/dL [facility] Phone: GFR >60 >60 mL/min [employer] Phone: GFR Non- >60 >60 mL/min [facility] Phone: GFR/1.73 sq M.predicted MDRD (S/P/Bld) [Vol rate/Area] [facility] Phone: Comment on above: Average GFR for 50-5 9 years old: 93 mL/min/1.73sq m Chronic Kidney Disease: <60 mL/min/1.73sq m Kidney failure: <15 mL/min/1.73sq m eGFR calculated using average adult body mass. Additional eGFR calculator available at: http://www.Health Informatics.[employer]/multiple_crcl_2012.htm GFR/1.73 sq M.predicted MDRD (S/P/Bld) [Vol rate/Area] NOT REPORTED [facility] Phone: Glucose [Mass/Vol] 158 mg/dL High 70 - 99 mg/dL [facility] Phone: Potassium [Moles/Vol] 3.2 mmol/L Low 3.7 - 5.3 mmol/L [facility] Phone: Sodium [Moles/Vol] 132 mmol/L Low 135 - 144 mmol/L [facility] Phone: Urea nitrogen (BldV) [Mass/Vol] 12 mg/dL 6 - 20 mg/dL [facility] Phone: Urea nitrogen/Creatinine (Bld) [Mass ratio] 20 [facility] Phone: Anion gap [Moles/Vol] 10 mmol/L 9 - 17 mmol/L [facility] Phone: Calcium [Mass/Vol] 9.0 mg/dL 8.6 - 10. 4 mg/dL [facility] Phone: Chloride [Moles/Vol] 105 mmol/L 98 - 10 7 mmol/L [facility] Phone: CO2 [Moles/Vol] 17 mmol/L Low 20 - 31 mmol/L [facility] Phone: Creatinine [Mass/Vol] 0.6 mg/dL 0.50 - 0.90 mg/dL [facility] Phone: GFR >60 >60 mL/min [employer] Phone: GFR Non- >60 >60 mL/min [facility] Phone: GFR/1.73 sq M.predicted MDRD (S/P/Bld) [Vol rate/Area] [facility] Phone: Comment on above: Average GFR for 50-5 9 years old: 93 mL/min/1.73sq m Chronic Kidney Disease: <60 mL/min/1.73sq m Kidney failure: <15 mL/min/1.73sq m eGFR calculated using average adult body mass. Additional eGFR calculator available at: http://www.[employer]/multiple_crcl_2012.htm GFR/1.73 sq M.predicted MDRD (S/P/Bld) [Vol rate/Area] NOT REPORTED [facility] Phone: Glucose [Mass/Vol] 254 mg/dL High 70 - 99 mg/dL [facility] Phone: Potassium [Moles/Vol] 2.9 mmol/L Critically low 3.7 - 5.3 mmol/L [facility] Phone: Sodium [Moles/Vol] 132 mmol/L Low 135 - 144 mmol/L [facility] Phone: Urea nitrogen (BldV) [Mass/Vol] 10 mg/dL 6 - 20 mg/dL [facility] Phone: Urea nitrogen/Creatinine (Bld) [Mass ratio] 17 [employer] Phone: Anion gap [Moles/Vol] 11 mmol/L 9 - 17 mmol/L [facility] Phone: Calcium [Mass/Vol] 8.8 mg/dL 8.6 - 10. 4 mg/dL [facility] Phone: Chloride [Moles/Vol] 105 mmol/L 98 - 10 7 mmol/L [facility] Phone: CO2 [Moles/Vol] 16 mmol/L Low 20 - 31 mmol/L [facility] Phone: Creatinine [Mass/Vol] 0.51 mg/dL 0.50 - 0.90 mg/dL [facility] Phone: GFR >60 >60 mL/min [facility] Phone: GFR Non- >60 >60 mL/min [facility] Phone: GFR/1.73 sq M.predicted MDRD (S/P/Bld) [Vol rate/Area] [facility] Phone: Comment on above: Average GFR for 50-5 9 years old: 93 mL/min/1.73sq m Chronic Kidney Disease: <60 mL/min/1.73sq m Kidney failure: <15 mL/min/1.73sq m eGFR calculated using average adult body mass. Additional eGFR calculator available at: http://www.[employer]/multiple_crcl_2012.htm GFR/1.73 sq M.predicted MDRD (S/P/Bld) [Vol rate/Area] NOT REPORTED [facility] Phone: Glucose [Mass/Vol] 215 mg/dL High 70 - 99 mg/dL [facility] Phone: Potassium [Moles/Vol] 3.2 mmol/L Low 3.7 - 5.3 mmol/L [facility] Phone: Sodium [Moles/Vol] 132 mmol/L Low 135 - 144 mmol/L [facility] Phone: Urea nitrogen (BldV) [Mass/Vol] 11 mg/dL 6 - 20 mg/dL [facility] Phone: Urea nitrogen/Creatinine (Bld) [Mass ratio] 22 High [facility] Phone: Anion gap [Moles/Vol] 17 mmol/L 9 - 17 mmol/L [facility] Phone: Calcium [Mass/Vol] 8.9 mg/dL 8.6 - 10. 4 mg/dL [facility] Phone: Chloride [Moles/Vol] 105 mmol/L 98 - 10 7 mmol/L [facility] Phone: CO2 [Moles/Vol] 11 mmol/L Low 20 - 31 mmol/L [facility] Phone: Creatinine [Mass/Vol] 0.56 mg/dL 0.50 - 0.90 mg/dL [facility] Phone: GFR >60 >60 mL/min [facility] Phone: GFR Non- >60 >60 mL/min [facility] Phone: GFR/1.73 sq M.predicted MDRD (S/P/Bld) [Vol rate/Area] [facility] Phone: Comment on above: Average GFR for 50-5 9 years old: 93 mL/min/1.73sq m Chronic Kidney Disease: <60 mL/min/1.73sq m Kidney failure: <15 mL/min/1.73sq m eGFR calculated using average adult body mass. Additional eGFR calculator available at: http://www.[employer]/multiple_crcl_2012.htm GFR/1.73 sq M.predicted MDRD (S/P/Bld) [Vol rate/Area] NOT REPORTED [facility] Phone: Glucose [Mass/Vol] 207 mg/dL High 70 - 99 mg/dL [facility] Phone: Potassium [Moles/Vol] 3.2 mmol/L Low 3.7 - 5.3 mmol/L [facility] Phone: Sodium [Moles/Vol] 133 mmol/L Low 135 - 144 mmol/L [facility] Phone: Urea nitrogen (BldV) [Mass/Vol] 13 mg/dL 6 - 20 mg/dL [facility] Phone: Urea nitrogen/Creatinine (Bld) [Mass ratio] 23 High [facility] Phone: Beta-HydroxybuterateOrdered By: Roverto Barbour on 04-14-2021 Beta-Hydroxybutyrate 1.58 mmol/L High 0.02 - 0.27 mmol/L [facility] Phone: Beta-HydroxybutyrateOrdered By: Roverto Back on 04-14-2021 Beta-Hydroxybutyrate 0.64 mmol/L High 0.02 - 0.27 mmol/L [employer] Work Phone: Beta-Hydroxybutyrate 1.21 mmol/L High 0.02 - 0.27 mmol/L [employer] Work Phone: Interpretation and review of laboratory results Abnormal [facility] Work Phone: [employer] Work Phone: CBC auto differentialOrdered By: Roverto Back on 04-14-2021 Absolute Eos # 0.00 [employer] [facility] Work Phone: Absolute Immature Granulocyte NOT REPORTED [facility] Work Phone: Absolute Lymph # 1.40 [facility] Work Phone: Absolute [place] # 1.10 High [facility] Work Phone: Basophils (Bld) [#/Vol] 0.00 10*3/uL [facility] Work Phone: Basophils/100 WBC (Bld) 0 % 0 - 2 % [facility] Work Phone: Differential Type YES [facility] Work Phone: Eosinophils/100 WBC (Bld) 0 % 0 - 5 % [facility] Work Phone: Hematocrit (Bld) [Volume fraction] 39.6 % 36 - 46 % [facility] Work Phone: Hemoglobin.gastrointe stinal spec 1 Ql (Stl) 13.6 g/dL 12.0 - 16.0 g/dL [facility] Work Phone: Immature Granulocytes NOT REPORTED 0 % [facility] Work Phone: Interpretation and review of laboratory results Abnormal [employer] Work Phone: Lymphocytes/100 WBC (Bld) 18 % 15 - 40 % [employer] Work Phone: MCH (RBC) [Entitic mass] 30.4 pg 26 - 34 pg [facility] Work Phone: MCHC (RBC) [Mass/Vol] 34.4 g/dL 31 - 3 7 g/dL [facility] Work Phone: MCV (RBC) [Entitic vol] 88.4 fL 80 - 100 fL [facility] Work Phone: Monocytes/100 WBC (Bld) 13 % High 4 - 8 % [facility] Work Phone: NRBC Automated NOT REPORTED per 100 WBC [employer] [place] [facility] Work Phone: Platelet distribution width (Bld) [Ratio] 13.4 % 12.1 - 15.2 % [facility] Phone: Platelet Estimate NOT REPORTED [facility] Phone: Platelet mean volume (Bld) [Entitic vol] NOT REPORTED 6.0 - 12.0 fL [facility] Work Phone: Platelets (Bld) [#/Vol] 285 10*3/uL [facility] Phone: RBC (Bld) [#/Vol] 4.48 10*6/uL 4.0 - 5.2 m/uL [facility] Phone: RBC (Bld) [#/Vol] NOT REPORTED [facility] Work Phone: Segmented neutrophils/100 WBC (Bld) 69 % 47 - 75 % [facility] Work Phone: Segs Absolute 5.70 [facility] Work Phone: WBC (Bld) [#/Vol] 8.2 10*3/uL [employer] Work Phone: WBC (Bld) [#/Vol] NOT REPORTED [employer] Work Phone: [facility] Work Phone: EKG 12 LeadOrdered By: Reji Rondon on 04-14-2021 Atrial Rate 132 BPM [employer] Phone: P [place] 77 degrees [employer] Work Phone: P-R Interval 150 ms [facility] Phone: Q-T Interval 282 ms [facility] Phone: QRS Duration 66 ms [facility] Work Phone: QTc Calculation (Bazett) 417 ms [facility] Phone: R [place] 73 degrees [facility] Phone: T [place] 119 degrees [facility] Phone: Ventricular Rate 132 BPM [employer] Work Phone: Sinus tachycardia Possible Left atrial enlargement Anteroseptal infarct , age undetermined T wave abnormality, consider inferior ischemia Abnormal ECG [facility] Phone: [place], Mhpn Incoming E kg Results From [employer] - 04/14/2021 6:49 AM EDT Sinus tachycardia Possible Left atrial enlargement Anteroseptal infarct , age undetermined T wave abnormality, consider inferior ischemia Abnormal ECG [facility] Phone: [facility] Phone: Glucose, Whole BloodOrdered By: Roverto Barbour on 04-14-2021 Glucose [Mass/Vol] 219 mg/dL High 65 - 99 mg/dL [facility] Phone: Glucose [Mass/Vol] 161 mg/dL High 65 - 99 mg/dL [facility] Phone: Glucose [Mass/Vol] 211 mg/dL High 65 - 99 mg/dL [facility] Phone: Interpretation and review of laboratory results Abnormal [facility] Phone: [facility] Phone: Glucose [Mass/Vol] 212 mg/dL High 65 - 99 mg/dL [facility] Work Phone: Interpretation and review of laboratory results Abnormal [facility] Work Phone: [facility] Work Phone: Glucose [Mass/Vol] 221 mg/dL High 65 - 99 mg/dL [facility] Work Phone: Interpretation and review of laboratory results Abnormal [facility] Work Phone: [facility] Work Phone: Glucose [Mass/Vol] 172 mg/dL High 65 - 99 mg/dL [facility] Work Phone: Interpretation and review of laboratory results Abnormal [facility] Phone: [employer] Work Phone: Glucose [Mass/Vol] 176 mg/dL High 65 - 99 mg/dL [facility] Work Phone: Interpretation and review of laboratory results Abnormal [facility] Phone: [employer] Work Phone: Glucose [Mass/Vol] 152 mg/dL High 65 - 99 mg/dL [facility] Phone: Interpretation and review of laboratory results Abnormal [facility] Phone: [employer] Work Phone: Glucose [Mass/Vol] 106 mg/dL High 65 - 99 mg/dL [facility] Work Phone: Interpretation and review of laboratory results Abnormal [employer] Work Phone: [employer] Work Phone: Glucose [Mass/Vol] 157 mg/dL High 65 - 99 mg/dL [employer] Work Phone: Interpretation and review of laboratory results Abnormal [employer] Work Phone: [employer] Work Phone: Glucose [Mass/Vol] 253 mg/dL High 65 - 99 mg/dL [employer] Work Phone: Interpretation and review of laboratory results Abnormal [employer] Work Phone: [employer] Work Phone: Glucose [Mass/Vol] 237 mg/dL High 65 - 99 mg/dL [facility] Work Phone: Interpretation and review of laboratory results Abnormal [employer] Work Phone: [employer] Work Phone: Glucose [Mass/Vol] 173 mg/dL High 65 - 99 mg/dL [facility] Work Phone: Interpretation and review of laboratory results Abnormal [facility] Phone: [employer] Work Phone: Glucose [Mass/Vol] 187 mg/dL High 65 - 99 mg/dL [facility] Phone: Interpretation and review of laboratory results Abnormal [facility] Phone: [employer] Work Phone: Glucose [Mass/Vol] 211 mg/dL High 65 - 99 mg/dL [facility] Phone: Interpretation and review of laboratory results Abnormal [facility] Phone: [employer] Work Phone: Glucose [Mass/Vol] 203 mg/dL High 65 - 99 mg/dL [facility] Work Phone: Interpretation and review of laboratory results Abnormal [facility] Work Phone: [facility] Work Phone: Glucose [Mass/Vol] 205 mg/dL High 65 - 99 mg/dL [facility] Work Phone: Interpretation and review of laboratory results Abnormal [facility] Work Phone: [employer] Phone: Glucose [Mass/Vol] 168 mg/dL High 65 - 99 mg/dL [facility] Phone: Interpretation and review of laboratory results Abnormal [facility] Phone: [facility] Phone: Hemoglobin [id number] By: Juan Jose Barbour on 04-14-2021 Glucose [Mass/Vol] 378 mg/dL [facility] Phone: Comment on above: The ADA and AACC rec ommend providing the estimated average glucose result to permit better patient understanding of their HBA1c result. HbA1c (Bld) [Mass fraction] 14.8 % High 4.0 - 6.0 % [facility] Phone: Interpretation and review of laboratory results Abnormal [facility] Phone: [facility] Phone: MagnesiumOrdered By: Roverto dozier on 04-14-2021 Magnesium [Mass/Vol] 1.7 mg/dL 1.6 - 2 .6 mg/dL [facility] Phone: Magnesium [Mass/Vol] 1.8 mg/dL 1.6 - 2 .6 mg/dL [facility] Phone: Magnesium [Mass/Vol] 1.6 mg/dL 1.6 - 2 .6 mg/dL [facility] Phone: Magnesium [Mass/Vol] 1.7 mg/dL 1.6 - 2 .6 mg/dL [facility] Phone: Magnesium [Mass/Vol] 1.8 mg/dL 1.6 - 2 .6 mg/dL [facility] Phone: No Panel InformationOrdered By: Roverto Barbour on 04-14-2021 Interpretation and review of laboratory results Abnormal [facility] Phone: [facility] Phone: Interpretation and review of laboratory results Abnormal [facility] Phone: [facility] Phone: Interpretation and review of laboratory results Abnormal [employer] Work Phone: [facility] Work Phone: Interpretation and review of laboratory results Abnormal [facility] Phone: [employer] Work Phone: Interpretation and review of laboratory results Abnormal [facility] Phone: [facility] Phone: PhosphorusOrdered By: Roverto Barbour on 04-14-2021 Phosphate [Mass/Vol] 2.5 mg/dL Low 2.6 - 4 .5 mg/dL [facility] Phone: Phosphate [Mass/Vol] 2.2 mg/dL Low 2.6 - 4 .5 mg/dL [facility] Phone: Phosphate [Mass/Vol] 1.9 mg/dL Low 2.6 - 4 .5 mg/dL [facility] Phone: Phosphate [Mass/Vol] 2.0 mg/dL Low 2.6 - 4 .5 mg/dL [facility] Phone: Phosphate [Mass/Vol] 2.1 mg/dL Low 2.6 - 4 .5 mg/dL [facility] Phone: TroponinOrdered By: Roverto fink on 04-14-2021 Troponin Interp NOT REPORTED [facility] [place] [facility] Work Phone: Troponin T NOT REPORTED <0.03 ng/mL Portr [facility] [employer] Work Phone: Troponin, High Sensitivity 7 ng/L 0 - 14 ng/L [facility] Work Phone: Comment on above: High Sensitivity Troponin values cannot be compared with other Troponin methodologies. Patients with high levels of Biotin oral intake (i.e >5mg/day) may have falsely decreased Troponin levels. Samples collected within 8 hours of biotin intake may require additional information for diagnosis. [facility] Work Phone: Beta-HydroxybutyrateOrdered By: Reji Rondon on 04-13-2021 Beta-Hydroxybutyrate 9.79 mmol/L High 0.02 - 0.27 mmol/L [facility] Work Phone: Interpretation and review of laboratory results Abnormal [facility] Work Phone: [employer] Work Phone: CBC Auto DifferentialOrdered By: Reji Rondon on 04-13-2021 Absolute Eos # 0.[address] [facility] Work Phone: Absolute Immature Granulocyte NOT REPORTED [facility] Work Phone: Absolute Lymph # 0.80 Low [employer] [facility] Work Phone: Absolute [place] # 0.[address] [facility] Work Phone: Basophils (Bld) [#/Vol] 0.00 10*3/uL [facility] Work Phone: Basophils/100 WBC (Bld) 0 % 0 - 2 % [facility] Work Phone: Differential Type YES [facility] Work Phone: Eosinophils/100 WBC (Bld) 0 % 0 - 5 % [facility] Work Phone: Hematocrit (Bld) [Volume fraction] 51.4 % High 36 - 46 % [facility] Work Phone: Hemoglobin.gastrointe stinal spec 1 Ql (Stl) 17.0 g/dL High 12.0 - 16.0 g/dL [facility] Work Phone: Immature Granulocytes NOT REPORTED 0 % [facility] Work Phone: Interpretation and review of laboratory results Abnormal [facility] Work Phone: Lymphocytes/100 WBC (Bld) 7 % Low 15 - 40 % [facility] Work Phone: MCH (RBC) [Entitic mass] 30.2 pg 26 - 34 pg [facility] Work Phone: MCHC (RBC) [Mass/Vol] 33.1 g/dL 31 - 3 7 g/dL [facility] Work Phone: MCV (RBC) [Entitic vol] 91.3 fL 80 - 100 fL [facility] Work Phone: Monocytes/100 WBC (Bld) 5 % 4 - 8 % [facility] Work Phone: NRBC Automated NOT REPORTED per 100 WBC [place] [employer] Work Phone: Platelet distribution width (Bld) [Ratio] 13.8 % 12.1 - 15.2 % [facility] Phone: Platelet Estimate NOT REPORTED [facility] Phone: Platelet mean volume (Bld) [Entitic vol] NOT REPORTED 6.0 - 12.0 fL [facility] Work Phone: Platelets (Bld) [#/Vol] 355 10*3/uL [facility] Phone: RBC (Bld) [#/Vol] 5.63 10*6/uL High 4.0 - 5.2 m/uL [facility] Work Phone: RBC (Bld) [#/Vol] NOT REPORTED [facility] Work Phone: Segmented neutrophils/100 WBC (Bld) 88 % High 47 - 75 % [employer] Work Phone: Segs Absolute 10.40 High [facility] Work Phone: WBC (Bld) [#/Vol] 11.6 10*3/uL High [facility] Work Phone: WBC (Bld) [#/Vol] NOT REPORTED [employer] Work Phone: [employer] Phone: COVID-19, RapidOrdered By: Yu molinamatheus Nela on 04-13-2021 SARS-CoV-2 (COVID-19) RNA ESPERANZA+probe Ql (Unsp spec) Not detected Not Detected [facility] Phone: Comment on above: Rapid NAAT: The [...] management decisions. Fact sheet for Healthcare Providers: https://www.fda.gov/media/746107/download Fact sheet for Patients: https://www.fda.gov/media/644954/download Methodology: Isothermal Nucleic Acid Amplification Specimen Description .NASOPHARYNGEAL SWAB [facility] Phone: [facility] Phone: CT ABDOMEN PELVIS WO CONTRAS T Additional Contrast? NoneOrdered By: Reji Nela on 04-13-2021 1. Bilateral nonobstructing renal calculi. No ureteral calculi. 2. Left renal cysts which are not optimally assessed on this unenhanced study. 3. Hepatic steatosis. [facility] Phone: EXAMINATION: CT ABDO MEN PELVIS WO [...] No ascites or focal intraperitoneal fluid collections. [facility] Phone: [place], pn Incoming Radiant Results From [employer] - 04/13/2021 5:00 PM EDT EXAMINATION: CT [...] on this unenhanced study. 3. Hepatic steatosis. [facility] Phone: [facility] Phone: Comprehensive Metabolic Pane l w/ Reflex to MGOrdered By: Reji Rondon on 04-13-2021 Albumin [Mass/Vol] 4.5 g/dL 3.5 - 5.2 g/dL [facility] Phone: Albumin/Globulin Ratio NOT REPORTED [facility] Phone: ALP (Bld) [Catalytic activity/Vol] 144 U/L High 35 - 104 U/L [facility] Phone: ALT [Catalytic activity/Vol] 15 U/L 5 - 33 U/L [facility] Phone: Anion gap [Moles/Vol] 33 mmol/L High 9 - 17 mmol/L [facility] Phone: AST [Catalytic activity/Vol] 11 U/L <32 [facility] Phone: Bilirubin [Mass/Vol] 0.22 mg/dL Low 0.30 - 1.20 mg/dL [facility] Phone: Calcium [Mass/Vol] 10.3 mg/dL 8.6 - 10. 4 mg/dL [facility] Phone: Chloride [Moles/Vol] 91 mmol/L Low 98 - 10 7 mmol/L [facility] Phone: CO2 [Moles/Vol] 6 mmol/L Critically low 20 - 31 mmol/L [facility] Phone: Creatinine [Mass/Vol] 0.89 mg/dL 0.50 - 0.90 mg/dL [facility] Phone: Free PSA/Total PSA [Mass fraction] 8.2 g/dL 6.4 - 8.3 g/dL [facility] Phone: GFR >60 >60 mL/min [facility] Phone: GFR Non- >60 >60 mL/min [facility] Phone: GFR/1.73 sq M.predicted MDRD (S/P/Bld) [Vol rate/Area] [facility] Phone: Comment on above: Average GFR for 50-5 9 years old: 93 mL/min/1.73sq m Chronic Kidney Disease: <60 mL/min/1.73sq m Kidney failure: <15 mL/min/1.73sq m eGFR calculated using average adult body mass. Additional eGFR calculator available at: http://www.[employer]/multiple_crcl_2012.htm GFR/1.73 sq M.predicted MDRD (S/P/Bld) [Vol rate/Area] NOT REPORTED [facility] Phone: Glucose [Mass/Vol] 437 mg/dL Critically high 70 - 9 9 mg/dL [facility] Phone: Interpretation and review of laboratory results Abnormal [facility] Phone: Potassium [Moles/Vol] 4.4 mmol/L 3.7 - 5.3 mmol/L [facility] Phone: Sodium [Moles/Vol] 130 mmol/L Low 135 - 144 mmol/L [facility] Phone: Urea nitrogen (BldV) [Mass/Vol] 21 mg/dL High 6 - 20 mg/dL [facility] Phone: Urea nitrogen/Creatinine (Bld) [Mass ratio] 24 High [facility] Phone: Glucose, Whole BloodOrdered By: Roverto Barbour on 04-13-2021 Glucose [Mass/Vol] 186 mg/dL High 65 - 99 mg/dL [facility] Phone: Interpretation and review of laboratory results Abnormal [facility] Phone: [facility] Phone: Glucose [Mass/Vol] 219 mg/dL High 65 - 99 mg/dL [facility] Phone: Interpretation and review of laboratory results Abnormal [facility] Phone: [facility] Phone: Glucose, Whole BloodOrdered By: Reji Rondon on 04-13-2021 Glucose [Mass/Vol] 239 mg/dL High 65 - 99 mg/dL [facility] [employer] Work Phone: Interpretation and review of laboratory results Abnormal [facility] [employer] Work Phone: [facility] [employer] Work Phone: Glucose [Mass/Vol] 383 mg/dL High 65 - 99 mg/dL [facility] [employer] Work Phone: Interpretation and review of laboratory results Abnormal [facility] [employer] Work Phone: [facility] Work Phone: LipaseOrdered By: Reji galvan on 04-13-2021 Lipase [Catalytic activity/Vol] 26 U/L 13 - 60 U/L [facility] [employer] Work Phone: Microscopic UrinalysisOrdere d By: Reji Rondon on 04-13-2021 - [facility] [employer] Work Phone: Amorphous, UA NOT REPORTED None [facility] Work Phone: Bacteria, UA NOT REPORTED None [facility] Work Phone: Casts UA NOT REPORTED /LPF [facility] Work Phone: Crystals, UA NOT REPORTED None /HPF [facility] Work Phone: Epithelial Cells UA NOT REPORTED /HPF [facility] Work Phone: Interpretation and review of laboratory results Abnormal [facility] Work Phone: Mucus, UA RARE Abnormal None [facility] Work Phone: Other Observations UA NOT REPORTED NOT REQ. M [facility] Work Phone: RBC, UA NOT REPORTED [facility] Work Phone: Renal Epithelial, UA NOT REPORTED 0 /HPF [facility] Work Phone: Trichomonas, UA NOT REPORTED None [facility] Work Phone: WBC, UA 0 TO 2 0 /HPF [employer] Work Phone: Yeast, UA NOT REPORTED None [employer] Work Phone: [employer] Work Phone: No Panel InformationOrdered By: Reji Rondon on 04-13-2021 [employer] Work Phone: POCT Glucose - every hourOrd ered By: Reji Rondon on 04-13-2021 Glucose [Mass/Vol] 239 mg/dL [employer] Work Phone: Interpretation and review of laboratory results Normal [employer] Work Phone: QC OK? yes [employer] Work Phone: [employer] Work Phone: Glucose [Mass/Vol] 383 mg/dL [employer] Work Phone: Interpretation and review of laboratory results Normal [employer] Work Phone: QC OK? yes [employer] Work Phone: [employer] Work Phone: Urinalysis, reflex to micros copicOrdered By: Reji Rondon on 04-13-2021 Bilirubin Urine Negative NEGATIVE [facility] Work Phone: Color, UA Yellow Yellow [employer] Work Phone: Glucose, Ur 1000 mg/dL Abnormal NEGATIVE [facility] Work Phone: Interpretation and review of laboratory results Abnormal [employer] Work Phone: Ketones Ql (U) LARGE Abnormal NEGATIVE [employer] Work Phone: Leukocyte esterase Test strip Ql (U) Negative NEGATIVE [employer] Work Phone: Nitrite, Urine Negative NEGATIVE [facility]r [facility] Work Phone: pH, UA 5.0 [facility] Phone: Protein, UA 2+ Abnormal NEGATIVE [facility] Phone: Specific [place], UA 1.025 [facility] Phone: Turbidity UA Clear Clear [facility] Phone: Urinalysis Comments [facility] Phone: Urine Hgb TRACE Abnormal NEGATIVE [facility] Phone: Urobilinogen, Urine Normal Normal [facility] Phone: [facility] Phone: Basic Metabolic Panelon 01-15 Anion gap [Moles/Vol] 16 mmol/L 9 - 17 mmol/L [place] Bun/Cre Ratio 27 High [place] Calcium [Mass/Vol] 9.4 mg/dL 8.6 - 10. 4 mg/dL [place] Chloride [Moles/Vol] 94 mmol/L Low 98 - 10 7 mmol/L [place] CO2 [Moles/Vol] 18 mmol/L Low 20 - 31 mmol/L [place] Creatinine [Mass/Vol] 0.52 mg/dL 0.5 - 0.9 mg/dL [place] GFR >60 >60 mL/min [place] GFR Non- >60 >60 mL/min [place] Glucose [Mass/Vol] 535 mg/dL Critically high 70 - 9 9 mg/dL [place] Interpretation and review of laboratory results Abnormal [place] Potassium [Moles/Vol] 4.6 mmol/L 3.7 - 5.3 mmol/L [place] Sodium [Moles/Vol] 128 mmol/L Low 135 - 144 mmol/L [place] Urea nitrogen [Mass/Vol] 14 mg/dL 6 - 20 mg/dL [place] CBC Auto Differentialon 01-15 Basophils (Bld) [#/Vol] 0.04 10*3/uL [place] Basophils/100 WBC (Bld) 1 % 0 - 2 % [place] Differential Type NOT REPORTED [place] Eosinophils (Bld) [#/Vol] 0.07 10*3/uL [place] Eosinophils/100 WBC (Bld) 1 % 1 - 4 % [place] Erythrocyte distribution width (RBC) [Ratio] 12.7 % 11.8 - 14.4 % [place] Hematocrit (Bld) [Volume fraction] 45.4 % 36.3 - 47.1 % [place] Hemoglobin (Bld) [Mass/Vol] 15.3 g/dL High 11.9 - 15.1 g/dL [place] Immature granulocytes (Bld) [#/Vol] 10*3/uL [place] Immature granulocytes (Bld) [#/Vol] 0 % 0 [place] Interpretation and review of laboratory results Abnormal [place] Lymphocytes (Bld) [#/Vol] 1.25 10*3/uL [place] Lymphocytes/100 WBC (Bld) 21 % Low 24 - 43 % [place] MCH (RBC) [Entitic mass] 30.1 pg 25.2 - 33.5 pg [place] MCHC (RBC) [Mass/Vol] 33.7 g/dL 28.4 - 34.8 g/dL [place] MCV (RBC) [Entitic vol] 89.4 fL 82.6 - 102.9 fL [place] Monocytes (Bld) [#/Vol] 0.66 10*3/uL [place] Monocytes/100 WBC (Bld) 11 % 3 - 12 % [place] Platelet mean volume (Bld) [Entitic vol] 10.9 fL 8.1 - 13.5 fL [place] Platelets (Bld) [#/Vol] NOT REPORTED [place] Platelets (Bld) [#/Vol] 247 10*3/uL [place] RBC (Bld) [#/Vol] 5.08 10*6/uL 3.95 - 5.1 1 m/uL [place] RBC morphology finding Nom (Bld) NOT REPORTED [place] Segmented neutrophils/100 WBC (Bld) 66 % High 36 - 65 % [place] Segs Absolute 3.83 [facility] [place] [place] WBC (Bld) [#/Vol] 5.9 10*3/uL [place] WBC (Bld) [#/Vol] 0.0 10*3/uL 0.0 per 10 0 WBC [place] WBC Morphology NOT REPORTED [place] CT ABDOMEN PELVIS WO CONTRAS T [...] diverticulitis. Other incidental stable findings as above. [place] EXAMINATION: CT OF T ABDOMEN AND PELVIS WITHOUT CONTRAST 02/11/2020 10:45 [...] seen. No destructive osseous process is identified. [facility] [place], [place] Temo, Mhpn Incoming Radiant Results From [employer] - 02/11/2020 10:58 AM EDT EXAMINATION: CT [...] diverticulitis. Other incidental stable findings as above. [place] Metabolic Panelon 02-11-2020 GFR/1.73 sq M predicted among non-blacks MDRD (S/P/Bld) [Vol rate/Area] [place] Comment on above: Average GFR for 50-5 9 years old: 93 mL/min/1.73sq m Chronic Kidney Disease: <60 mL/min/1.73sq m Kidney failure: <15 mL/min/1.73sq m eGFR calculated using average adult body mass. Additional eGFR calculator available at: http://www.[employer]/multiple_crcl_2012.htm Stage 1: Some kidney damage normal GFR Stage 2: Mild kidney damage GFR 60-89 Stage 3: Moderate kidney damage GFR 30-59 Stage 4: Severe kidney damage GFR 15-29 Stage 5: Severe kidney damage GFR <15 ESRD - chronic treatment by dialysis or transplant Urinalysis with Microscopico n 02-11-2020 Amorphous, UA NOT REPORTED None [place], [place] Bacteria, UA TRACE Abnormal None [place] Bilirubin Urine SMALL Abnormal NEGATIVE [place] Casts UA NOT REPORTED /LPF [place] Color, UA YELLOW YELLOW [place] Crystals, UA NOT REPORTED None /HPF [place] Epithelial Cells UA 2 TO 5 [place] Glucose, Ur 3+ Abnormal NEGATIVE [place] Interpretation and review of laboratory results Abnormal [place] Ketones Ql (U) 4+ Abnormal NEGATIVE [place] Leukocyte esterase Test strip Ql (U) Negative NEGATIVE [facility], [place] Mucus, UA NOT REPORTED None [place], [place] Nitrite, Urine Negative NEGATIVE [place], [place] Other Observations UA NOT REPORTED NOT REQ. M [facility], [place] pH, UA 6.0 [place], [place] Protein (U) [Mass/Vol] TRACE Abnormal NEGATIVE [place], [place] RBC (U) [#/Vol] None [facility] [place] Renal Epithelial, UA NOT REPORTED 0 /HPF Me [facility], [place] Specific [place], UA 1.020 [place], [place] Trichomonas, UA NOT REPORTED None [facility] [place] Turbidity UA CLEAR CLEAR [place] Urinalysis Comments NOT REPORTED [place], [place] Urine Hgb Negative NEGATIVE [place] Urobilinogen, Urine Normal Normal [place] WBC, UA 2 TO 5 [place] Yeast, UA NOT REPORTED None [facility], [place] - [place] Vital Signs Date Time Vital Sign Value Performing Clinician Tari cabral 03-03-2025 13:10-0400 Diastolic blood pressure 67 mm[Hg] Kavita Qureshi CNP Work Phone: [facility] 03-03-2025 13:10-0400 Systolic blood pressure 98 mm[Hg] Kavita Qureshi CNP Work Phone: [facility] 03-03-2025 12:45-0400 Diastolic blood pressure 55 mm[Hg] Kavita Qureshi CNP Work Phone: [facility] 03-03-2025 12:45-0400 Systolic blood pressure 84 mm[Hg] Kavita Qureshi CNP Work Phone: [facility] 03-03-2025 12:00-0400 Diastolic blood pressure 52 mm[Hg] Kavita Qureshi CNP Work Phone: [facility] Work Phone: 03-03-2025 12:00-0400 Systolic blood pressure 73 mm[Hg] Kavita Qureshi CNP Work Phone: [facility] Work Phone: 03-03-2025 11:56-0400 Body height 167.64 cm Kavita Qureshi CNP Work Phone: [facility] Work Phone: 03-03-2025 11:56-0400 Body mass index (BMI) [Ratio] 27.6 kg/m2 Kavita Qureshi CNP Work Phone: [facility] Work Phone: 03-03-2025 11:56-0400 Body surface area Derived from formula 1.9 m2 Kavita Qureshi CNP Work Phone: [facility] Work Phone: 03-03-2025 11:56-0400 Body temperature 98.4 [degF] Kavita Qureshi CNP Work Phone: [facility] Work Phone: 03-03-2025 11:56-0400 Body weight 77.47 kg Kavita Qureshi CNP Work Phone: [facility] Work Phone: 03-03-2025 11:56-0400 Diastolic blood pressure 51 mm[Hg] Kavita Qureshi CNP Work Phone: [facility] Work Phone: 03-03-2025 11:56-0400 Heart rate 111 /min Kavita Qureshi CNP Work Phone: [facility] Work Phone: 03-03-2025 11:56-0400 Inhaled oxygen concentration 21 % Kavita Qureshi CNP Work Phone: [facility] Work Phone: 03-03-2025 11:56-0400 Inhaled oxygen flow rate 0 L/min Kavita Qureshi CNP Work Phone: [facility] Work Phone: 03-03-2025 11:56-0400 Respiratory rate 18 /min Kavita Qureshi CNP Work Phone: [facility] Work Phone: 03-03-2025 11:56-0400 SaO2% (BldA) [Mass fraction] 96 % Kavita Qureshi CNP Work Phone: [facility] Work Phone: 03-03-2025 11:56-0400 Systolic blood pressure 78 mm[Hg] Kavita Qureshi CNP Work Phone: [facility] Work Phone: 02-26-2025 14:30-0400 Diastolic blood pressure 63 mm[Hg] Bekah Lan MD Work Phone: [facility] [employer] 02-26-2025 14:30-0400 Systolic blood pressure 90 mm[Hg] Bekah Lan MD Work Phone: [employer] 02-26-2025 13:15-0400 SaO2% (BldA) [Mass fraction] 93 % Bekah Lan MD Work Phone: [employer] 02-26-2025 13:01-0400 Body height 167.6 cm Bekah Lan MD Work Phone: [facility] [employer] 02-26-2025 13:01-0400 Body mass index (BMI) [Ratio] 25.99 kg/m2 Bekah Lan MD Work Phone: [employer] 02-26-2025 13:01-0400 Body temperature 97.81 [degF] Bekah Lan MD Work Phone: [facility] [employer] 02-26-2025 13:01-0400 Body weight 73.03 kg Bekah Lan MD Work Phone: [facility] 02-26-2025 13:01-0400 Heart rate 105 /min Bekah Lan MD Work Phone: [facility] 02-26-2025 13:01-0400 Respiratory rate 18 /min Bekah Lan MD Work Phone: [facility] 12-31-2024 12:41-0400 Diastolic blood pressure 62 mm[Hg] Kavita Qureshi CNP Work Phone: [facility] 12-31-2024 12:41-0400 Systolic blood pressure 92 mm[Hg] Kavita Qureshi CNP Work Phone: [facility] 12-31-2024 12:33-0400 Body height 167.64 cm Kavita Qureshi CNP Work Phone: [facility] 12-31-2024 12:33-0400 Body mass index (BMI) [Ratio] 28.1 kg/m2 Kavita Qureshi CNP Work Phone: [facility] 12-31-2024 12:33-0400 Body surface area Derived from formula 1.9 m2 Kavita Qureshi CNP Work Phone: [facility] 12-31-2024 12:33-0400 Body temperature 98.3 [degF] Kavita Qureshi CNP Work Phone: [facility] 12-31-2024 12:33-0400 Body weight 78.93 kg Kavita Qureshi CNP Work Phone: [facility] 12-31-2024 12:33-0400 Diastolic blood pressure 61 mm[Hg] Kavita Qureshi CNP Work Phone: [facility] 12-31-2024 12:33-0400 Heart rate 114 /min Kavita Qureshi CNP Work Phone: [facility] 12-31-2024 12:33-0400 Respiratory rate 20 /min Kavita Qureshi CNP Work Phone: [facility] 12-31-2024 12:33-0400 SaO2% (BldA) [Mass fraction] 94 % Kavita Hardeep PREPRINT ANALYST Work Phone: [facility] 12-31-2024 12:33-0400 Systolic blood pressure 88 mm[Hg] Kavita Hardeep PREPRINT ANALYST Work Phone: [facility] 11-27-2024 10:55-0400 Diastolic blood pressure 69 mm[Hg] Kavita Hardeep PREPRINT ANALYST Work Phone: [facility] 11-27-2024 10:55-0400 Systolic blood pressure 101 mm[Hg] Kavita Hardeep PREPRINT ANALYST Work Phone: [facility] 11-27-2024 10:52-0400 Body height 167.64 cm Kavita Hardeep PREPRINT ANALYST Work Phone: [facility] 11-27-2024 10:52-0400 Body mass index (BMI) [Ratio] 27.8 kg/m2 Kavitadima Qureshi PREPRINT ANALYST Work Phone: [facility] 11-27-2024 10:52-0400 Body surface area Derived from formula 1.9 m2 Kavita Hardeep PREPRINT ANALYST Work Phone: [facility] 11-27-2024 10:52-0400 Body weight 78.02 kg Kavitadima Qureshi PREPRINT ANALYST Work Phone: [facility] 11-27-2024 10:52-0400 Diastolic blood pressure 73 mm[Hg] Kavita Hardeep PREPRINT ANALYST Work Phone: [facility] 11-27-2024 10:52-0400 Heart rate 114 /min Kavita Hardeep PREPRINT ANALYST Work Phone: [facility] 11-27-2024 10:52-0400 SaO2% (BldA) [Mass fraction] 95 % Kavita Hardeep PREPRINT ANALYST Work Phone: [facility] 11-27-2024 10:52-0400 Systolic blood pressure 108 mm[Hg] Kavita Bryanter PREPRINT ANALYST Work Phone: [facility] 10-24-2024 15:03-0400 Diastolic blood pressure 68 mm[Hg] Kavita Bryanter PREPRINT ANALYST Work Phone: [facility] 10-24-2024 15:03-0400 Systolic blood pressure 114 mm[Hg] Kavita Hardeep PREPRINT ANALYST Work Phone: [facility] 10-24-2024 14:55-0400 Body height 167.64 cm Kavita Bryanter PREPRINT ANALYST Work Phone: [facility] 10-24-2024 14:55-0400 Body mass index (BMI) [Ratio] 27.7 kg/m2 Kavita Bryanter PREPRINT ANALYST Work Phone: [facility] 10-24-2024 14:55-0400 Body surface area Derived from formula 1.9 m2 Kavita Bryanter PREPRINT ANALYST Work Phone: [facility] 10-24-2024 14:55-0400 Body weight 77.93 kg Kavita Bryanter PREPRINT ANALYST Work Phone: [facility] 10-24-2024 14:55-0400 Diastolic blood pressure 72 mm[Hg] Kavita Hardeep PREPRINT ANALYST Work Phone: [facility] 10-24-2024 14:55-0400 Heart rate 113 /min Kavita Bryanter PREPRINT ANALYST Work Phone: [facility] 10-24-2024 14:55-0400 SaO2% (BldA) [Mass fraction] 95 % Kavita Hardeep PREPRINT ANALYST Work Phone: [facility] 10-24-2024 14:55-0400 Systolic blood pressure 123 mm[Hg] Kavita Hardeep PREPRINT ANALYST Work Phone: [facility] 09-29-2024 13:45-0400 Diastolic blood pressure 82 mm[Hg] Cris Herring MD Work Phone: [employer] 09-29-2024 13:45-0400 Heart rate 115 /min Cris Herring MD Work Phone: [employer] 09-29-2024 13:45-0400 Respiratory rate 18 /min Cris Herring MD Work Phone: [employer] 09-29-2024 13:45-0400 SaO2% (BldA) [Mass fraction] 98 % Cris Herring MD Work Phone: [employer] 09-29-2024 13:45-0400 Systolic blood pressure 115 mm[Hg] Cris Herring MD Work Phone: [employer] 09-29-2024 13:44-0400 Body height 170.2 cm Cris Herring MD Work Phone: [employer] 09-29-2024 13:44-0400 Body mass index (BMI) [Ratio] 27.57 kg/m2 Cris Herring MD Work Phone: [employer] 09-29-2024 13:44-0400 Body weight 79.83 kg Cris Herring MD Work Phone: [employer] 09-19-2024 09:36-0500 Diastolic blood pressure 72 mm[Hg] Kavita Qureshi CNP Work Phone: [facility] 09-19-2024 09:36-0500 Systolic blood pressure 116 mm[Hg] Kavita Qureshi PREPRINT ANALYST Work Phone: [facility] 09-19-2024 09:24-0500 Body height 167.64 cm Kavita Qureshi PREPRINT ANALYST Work Phone: [facility] 09-19-2024 09:24-0500 Body mass index (BMI) [Ratio] 28.9 kg/m2 Kavita Qureshi PREPRINT ANALYST Work Phone: [facility] 09-19-2024 09:24-0500 Body surface area Derived from formula 1.9 m2 Kavita Qureshi CNP Work Phone: [facility] 09-19-2024 09:24-0500 Body temperature 98.4 [degF] Kavita Qureshi PREPRINT ANALYST Work Phone: [facility] 09-19-2024 09:24-0500 Body weight 81.1 kg Kavita Qureshi CNP Work Phone: [facility] 09-19-2024 09:24-0500 Diastolic blood pressure 63 mm[Hg] Kavita Qureshi PREPRINT ANALYST Work Phone: [facility] 09-19-2024 09:24-0500 Heart rate 122 /min Kavita Qureshi PREPRINT ANALYST Work Phone: [facility] 09-19-2024 09:24-0500 Respiratory rate 18 /min Kavita Qureshi PREPRINT ANALYST Work Phone: [facility] 09-19-2024 09:24-0500 SaO2% (BldA) [Mass fraction] 95 % Kavita Qureshi CNP Work Phone: [facility] 09-19-2024 09:24-0500 Systolic blood pressure 131 mm[Hg] Kavita Qureshi PREPRINT ANALYST Work Phone: [facility] 09-09-2024 06:34-0500 Diastolic blood pressure 81 mm[Hg] Mallory Aleman MD Work Phone: [facility] [employer] 09-09-2024 06:34-0500 Heart rate 123 /min Mallory Aleman MD Work Phone: [facility] [employer] 09-09-2024 06:34-0500 Respiratory rate 21 /min Mallory Aleman MD Work Phone: [facility] [employer] 09-09-2024 06:34-0500 SaO2% (BldA) [Mass fraction] 98 % Mallory Aleman MD Work Phone: [facility] [employer] 09-09-2024 06:34-0500 Systolic blood pressure 107 mm[Hg] Mallory Aleman MD Work Phone: [facility] [employer] 09-09-2024 04:20-0500 Body height 170.2 cm Mallory Aleman MD Work Phone: [facility] [employer] 09-09-2024 04:20-0500 Body mass index (BMI) [Ratio] 27.57 kg/m2 Mallory Aleman MD Work Phone: [facility] [employer] 09-09-2024 04:20-0500 Body temperature 97.81 [degF] Mallory Aleman MD Work Phone: [facility] [employer] 09-09-2024 04:20-0500 Body weight 79.83 kg Mallory Aleman MD Work Phone: [facility] [employer] 09-04-2024 10:45-0500 Diastolic blood pressure 75 mm[Hg] Mallory Aleman MD Work Phone: [facility] [employer] 09-04-2024 10:45-0500 Heart rate 115 /min Mallory Aleman MD Work Phone: [facility] [employer] 09-04-2024 10:45-0500 Respiratory rate 25 /min Mallory Aleman MD Work Phone: [facility] [employer] 09-04-2024 10:45-0500 SaO2% (BldA) [Mass fraction] 97 % Mallory Aleman MD Work Phone: [facility] [employer] 09-04-2024 10:45-0500 Systolic blood pressure 99 mm[Hg] Mallory Aleman MD Work Phone: [facility] [employer] 09-04-2024 08:07-0500 Body height 170.2 cm Mallory Aleman MD Work Phone: [facility] [employer] 09-04-2024 08:07-0500 Body mass index (BMI) [Ratio] 28.04 kg/m2 Mallory Aleman MD Work Phone: [facility] [employer] 09-04-2024 08:07-0500 Body temperature 97.7 [degF] Mallory Aleman MD Work Phone: [facility] [employer] 09-04-2024 08:07-0500 Body weight 81.19 kg Mallory Aleman MD Work Phone: [facility] [employer] 09-02-2024 20:00-0500 Diastolic blood pressure 87 mm[Hg] Chaim Del Toro MD [facility] Phone: [facility] 09-02-2024 20:00-0500 Heart rate 119 /min [facility] 09-02-[facility]24 20:00-0500 SaO2% (BldA) [Mass fraction] 98 % Chaim Del Toro MD Work Phone: [facility] 09-02-2024 20:00-0500 Systolic blood pressure 118 mm[Hg] Chaim Del Toro MD Work [facility] [employer] 09-02-2024 14:13-0500 Body mass index (BMI) [Ratio] 27.57 kg/m2 Chaim Del Toro MD Work Phone: [facility] 09-02-2024 14:13-0500 Body temperature 98.01 [degF] Chaim Del Toro MD Work Phone: [facility] 09-02-2024 14:13-0500 Body weight 79.83 kg Chaim Del Toro MD [facility] [employer] 09-02-2024 14:13-0500 Respiratory rate 16 /min Chaim Del Toro MD [facility] 09-02-2024 13:06-0500 Diastolic blood pressure 68 mm[Hg] Kavita Qureshi CNP Work Phone: [facility] 09-02-2024 13:06-0500 Heart rate 123 /min Kavita Qureshi PREPRINT ANALYST Work Phone: [facility] 09-02-2024 13:06-0500 Systolic blood pressure 94 mm[Hg] Kavita Qureshi PREPRINT ANALYST Work Phone: [facility] 09-02-2024 12:24-0500 Diastolic blood pressure 60 mm[Hg] Kavita Qureshi CNP Work Phone: [facility] 09-02-2024 12:24-0500 Systolic blood pressure 83 mm[Hg] Kavita Bryanter PREPRINT ANALYST Work Phone: [facility] 09-02-2024 12:21-0500 Diastolic blood pressure 62 mm[Hg] Kavita Qureshi PREPRINT ANALYST Work Phone: [facility] 09-02-2024 12:21-0500 Systolic blood pressure 84 mm[Hg] Kavita Qureshi PREPRINT ANALYST Work Phone: [facility] 09-02-2024 12:14-0500 Body height 167.64 cm Kavita Qureshi CNP Work Phone: [facility] 09-02-2024 12:14-0500 Body mass index (BMI) [Ratio] 28.4 kg/m2 Kavita Hardeepalina JIMENEZ Work Phone: [facility] 09-02-2024 12:14-0500 Body surface area Derived from formula 1.9 m2 Kavita Qureshi CNP Work Phone: [facility] 09-02-2024 12:14-0500 Body temperature 97.9 [degF] Kavita Hardeep JIMENEZ Work Phone: [facility] 09-02-2024 12:14-0500 Body weight 79.83 kg Kavita Qureshi CNP Work Phone: [facility] 09-02-2024 12:14-0500 Diastolic blood pressure 73 mm[Hg] Kavita Qureshi PREPRINT ANALYST Work Phone: [facility] 09-02-2024 12:14-0500 Heart rate 133 /min Kavita Qureshi PREPRINT ANALYST Work Phone: [facility] 09-02-2024 12:14-0500 SaO2% (BldA) [Mass fraction] 95 % Kavita Qureshi PREPRINT ANALYST Work Phone: [facility] 09-02-2024 12:14-0500 Systolic blood pressure 104 mm[Hg] Kavita Qureshi CNP Work Phone: [facility] 08-21-2024 20:45-0500 Diastolic blood pressure 65 mm[Hg] Chaim Del Toro MD Work Phone: [facility] 08-21-2024 20:45-0500 Heart rate 122 /min Chaim Del Toro MD Work Phone: [facility] [employer] 08-21-2024 20:45-0500 Respiratory rate 21 /min Chaim Del Toro MD Work Phone: [facility] [employer] 08-21-2024 20:45-0500 SaO2% (BldA) [Mass fraction] 98 % Chaim Del Toro MD Work Phone: [facility] [employer] 08-21-2024 20:45-0500 Systolic blood pressure 119 mm[Hg] Chaim Del Toro MD Work Phone: [facility] [employer] 08-21-2024 18:20-0500 Body temperature 98.8 [degF] Chaim Del Toro MD Work Phone: [facility] [employer] 08-21-2024 16:02-0500 Diastolic blood pressure 64 mm[Hg] Kavita Qureshi CNP Work Phone: [facility] 08-21-2024 16:02-0500 Systolic blood pressure 88 mm[Hg] Kavita Qureshi PREPRINT ANALYST Work Phone: [facility] 08-21-2024 15:17-0500 Diastolic blood pressure 49 mm[Hg] Kavita Qureshi PREPRINT ANALYST Work Phone: [facility] 08-21-2024 15:17-0500 Systolic blood pressure 77 mm[Hg] Kavita Qureshi PREPRINT ANALYST Work Phone: [facility] 08-21-2024 15:01-0500 Body height 167.64 cm Kavita Qureshi CNP Work Phone: [facility] 08-21-2024 15:01-0500 Body mass index (BMI) [Ratio] 28.7 kg/m2 Kavita Qureshi CNP Work Phone: [facility] 08-21-2024 15:01-0500 Body surface area Derived from formula 1.9 m2 Kavita Qursehi CNP Work Phone: [facility] 08-21-2024 15:01-0500 Body temperature 97.7 [degF] Kavita Qureshi CNP Work Phone: [facility] 08-21-2024 15:01-0500 Body weight 80.74 kg Kavita Qureshi CNP Work Phone: [facility] 08-21-2024 15:01-0500 Diastolic blood pressure 60 mm[Hg] Kavita Qureshi CNP Work Phone: [facility] 08-21-2024 15:01-0500 Heart rate 133 /min Kavita Qureshi CNP Work Phone: [facility] 08-21-2024 15:01-0500 SaO2% (BldA) [Mass fraction] 95 % Kavita Qureshi CNP Work Phone: [facility] 08-21-2024 15:01-0500 Systolic blood pressure 80 mm[Hg] Kavita Qureshi CNP Work Phone: [facility] 08-17-2024 10:16-0500 Body height 170.2 cm Lukas Lopez MD Work Phone: [employer] 08-17-2024 10:16-0500 Body mass index (BMI) [Ratio] 28.82 kg/m2 Lukas Lopez MD Work Phone: [employer] 08-17-2024 10:16-0500 Body temperature 98.1 [degF] Lukas Lopez MD Work Phone: [employer] 08-17-2024 10:16-0500 Body weight 83.46 kg Lukas Lopez MD Work Phone: [employer] 08-17-2024 10:16-0500 Diastolic blood pressure 86 mm[Hg] Lukas Lopez MD Work Phone: [employer] 08-17-2024 10:16-0500 Heart rate 133 /min Lukas Lopez MD Work Phone: [employer] 08-17-2024 10:16-0500 Respiratory rate 18 /min Lukas Lopez MD Work Phone: [employer] 08-17-2024 10:16-0500 SaO2% (BldA) [Mass fraction] 96 % Lukas Lopez MD Work Phone: [employer] 08-17-2024 10:16-0500 Systolic blood pressure 156 mm[Hg] Lukas Lopez MD Work Phone: [employer] 08-08-2024 15:13-0500 Body height 167.64 cm Kavita Hardeep JIMENEZ Work Phone: [facility] 08-08-2024 15:13-0500 Body mass index (BMI) [Ratio] 28.7 kg/m2 Kavita Hardeep JIMENEZ Work Phone: [facility] 08-08-2024 15:13-0500 Body surface area Derived from formula 1.9 m2 Kavita Qureshi CNP Work Phone: [facility] 08-08-2024 15:13-0500 Body temperature 98.3 [degF] Kavita Qureshi CNP Work Phone: [facility] 08-08-2024 15:13-0500 Body weight 80.74 kg Kavita Qureshi CNP Work Phone: [facility] 08-08-2024 15:13-0500 Diastolic blood pressure 66 mm[Hg] Kavita Qureshi CNP Work Phone: [facility] 01-23-2025 15:13-0500 Heart rate 120 /min Kavita Qureshi PREPRINT ANALYST Work Phone: [facility] 08-08-2024 15:13-0500 Respiratory rate 18 /min Kavita Qureshi PREPRINT ANALYST Work Phone: [facility] 08-08-2024 15:13-0500 SaO2% (BldA) [Mass fraction] 93 % Kavita Qureshi PREPRINT ANALYST Work Phone: [facility] 08-08-2024 15:13-0500 Systolic blood pressure 134 mm[Hg] Kavita Bryanter PREPRINT ANALYST Work Phone: [facility] 08-04-2024 11:44-0500 Diastolic blood pressure 84 mm[Hg] Namita Rizzo MD Work Phone: [employer] 08-04-2024 11:44-0500 Heart rate 110 /min Namita Rizzo MD Work Phone: [employer] 08-04-2024 11:44-0500 Respiratory rate 16 /min Namita Rizzo MD Work Phone: [employer] 08-04-2024 11:44-0500 SaO2% (BldA) [Mass fraction] 96 % Namita Rizzo MD Work Phone: [employer] 08-04-2024 11:44-0500 Systolic blood pressure 167 mm[Hg] Namita Rizzo MD Work Phone: [employer] 08-04-2024 10:24-0500 Body height 170.2 cm Namita Rizzo MD Work Phone: [employer] 08-04-2024 10:24-0500 Body mass index (BMI) [Ratio] 30.38 kg/m2 Namita Rizzo MD Work Phone: [employer] 08-04-2024 10:24-0500 Body temperature 97.81 [degF] Namita Rizzo MD Work Phone: [employer] 08-04-2024 10:24-0500 Body weight 88 kg Namita Rizzo MD Work Phone: [facility] 07-04-2024 14:48-0500 Diastolic blood pressure 82 mm[Hg] Kavita Qureshi CNP Work Phone: [facility] 07-04-2024 14:48-0500 Systolic blood pressure 117 mm[Hg] Kavita Qureshi CNP Work Phone: [facility] 07-04-2024 14:40-0500 Body height 167.64 cm Kavita Qureshi CNP Work Phone: [facility] 07-04-2024 14:40-0500 Body mass index (BMI) [Ratio] 30.9 kg/m2 Kavita Hardeep JIMENEZ Work Phone: [facility] 07-04-2024 14:40-0500 Body surface area Derived from formula 2 m2 Kavita Qureshi CNP Work Phone: [facility] 07-04-2024 14:40-0500 Body temperature 98.1 [degF] Kavita Hardeep JIMENEZ Work Phone: [facility] 07-04-2024 14:40-0500 Body weight 86.73 kg Kavita Hardeep JIMENEZ Work Phone: [facility] 07-04-2024 14:40-0500 Diastolic blood pressure 81 mm[Hg] Kavita Qureshi CNP Work Phone: [facility] 07-04-2024 14:40-0500 Heart rate 117 /min Kavita Qureshi CNP Work Phone: [facility] 07-04-2024 14:40-0500 SaO2% (BldA) [Mass fraction] 94 % Kavita Qureshi CNP Work Phone: [facility] 07-04-2024 14:40-0500 Systolic blood pressure 121 mm[Hg] Kavita Qureshi CNP Work Phone: [facility] 06-06-2024 15:43-0500 Body height 167.64 cm Kavita Qureshi CNP Work Phone: [facility] 06-06-2024 15:43-0500 Body mass index (BMI) [Ratio] 28.1 kg/m2 Kavita Qureshi CNP Work Phone: [facility] 06-06-2024 15:43-0500 Body surface area Derived from formula 1.9 m2 Kavita Qureshi CNP Work Phone: [facility] 06-06-2024 15:43-0500 Body temperature 98.1 [degF] Kavita Qureshi CNP Work Phone: [facility] 06-06-2024 15:43-0500 Body weight 79.11 kg Kavita Qureshi CNP Work Phone: [facility] 06-06-2024 15:43-0500 Diastolic blood pressure 78 mm[Hg] Kavita Qureshi CNP Work Phone: [facility] 06-06-2024 15:43-0500 Heart rate 112 /min Kavita Qureshi CNP Work Phone: [facility] 06-06-2024 15:43-0500 Respiratory rate 18 /min Kavita Qureshi CNP Work Phone: [facility] 06-06-2024 15:43-0500 SaO2% (BldA) [Mass fraction] 94 % Kavita Qureshi CNP Work Phone: [facility] 06-06-2024 15:43-0500 Systolic blood pressure 115 mm[Hg] Kavita Qureshi CNP Work Phone: [facility] 07-05-2022 10:20-0500 SaO2% (BldA) [Mass fraction] 95 % Talita Crouch DO Work Phone: [email or web address] 07-05-2022 10:18-0500 Heart rate 103 /min Talita Crouch DO Work Phone: [email or web address] 07-05-2022 09:30-0500 Body temperature 99.19 [degF] Talita Crouch DO Work Phone: [email or web address] 07-05-2022 09:30-0500 Diastolic blood pressure 73 mm[Hg] Talita Crouch DO Work Phone: [email or web address] 07-05-2022 09:30-0500 Respiratory rate 20 /min Talita Crouch DO Work Phone: [email or web address] 07-05-2022 09:30-0500 Systolic blood pressure 167 mm[Hg] Talita Crouch DO Work Phone: [email or web address] 06-22-2022 17:40-0500 Diastolic blood pressure 58 mm[Hg] Irvin Magana MD Work Phone: [employer] 06-22-2022 17:40-0500 Heart rate 108 /min Irvin Magana MD Work Phone: [employer] 06-22-2022 17:40-0500 Respiratory rate 24 /min Irvin Magana MD Work Phone: [employer] 06-22-2022 17:40-0500 SaO2% (BldA) [Mass fraction] 99 % Irvin Magana MD Work Phone: [employer] 06-22-2022 17:40-0500 Systolic blood pressure 129 mm[Hg] Irvin Magana MD Work Phone: [employer] 06-22-2022 16:08-0500 Body temperature 97.2 [degF] Irvin Magana MD Work Phone: [employer] 06-21-2022 20:00-0500 Body height 170.2 cm Irvin Magana MD Work Phone: [employer] 06-21-2022 20:00-0500 Body mass index (BMI) [Ratio] 29.76 kg/m2 Irvin Magana MD Work Phone: [employer] 06-21-2022 20:00-0500 Body weight 86.18 kg Irvin Magana MD [facility]: [facility] 06-21-2022 16:58-0500 SaO2% (BldA) [Mass fraction] 68.4 % Irvin Magana MD Work Phone: [facility] [employer] [facility] 04-07-2022 14:05-0400 Body height 170.2 cm Manish Shea MD Work Phone: [facility] [employer] [facility] 04-07-2022 14:05-0400 Body mass index (BMI) [Ratio] 32.72 kg/m2 Manish Shea MD Work Phone: [employer] [facility] 04-07-2022 14:05-0400 Body weight 94.8 kg Manish Shea MD Work Phone: [employer] [facility] 04-07-2022 14:05-0400 Diastolic blood pressure 88 mm[Hg] Manish Shea MD Work Phone: [facility] [employer] [facility] 04-07-2022 14:05-0400 Heart rate 112 /min Manish Shea MD Work Phone: [employer] [facility] 04-07-2022 14:05-0400 Respiratory rate 16 /min Manish Shea MD Work Phone: [facility] [employer] [facility] 04-07-2022 14:05-0400 Systolic blood pressure 126 mm[Hg] Manish Shea MD Work Phone: [facility] [employer] [facility] 02-03-2022 14:54-0400 Body mass index (BMI) [Ratio] 32.32 kg/m2 Manish Shea MD Work Phone: [employer] [facility] 02-03-2022 14:54-0400 Body weight 93.62 kg Manish Shea MD Work Phone: [employer] [facility] 02-03-2022 14:54-0400 Diastolic blood pressure 65 mm[Hg] Manish Shea MD Work Phone: [facility] 02-03-2022 14:54-0400 Heart rate 112 /min Manish Shea MD Work Phone: [facility] 02-03-2022 14:54-0400 Systolic blood pressure 141 mm[Hg] Manish Shea MD Work Phone: [facility] 12-09-2021 14:23-0400 Body height 170.2 cm Manish Shea MD Work Phone: [facility] 12-09-2021 14:23-0400 Body mass index (BMI) [Ratio] 33.04 kg/m2 Manish Shea MD Work Phone: [facility] 12-09-2021 14:23-0400 Body weight 95.71 kg Manish Shea MD Work Phone: [facility] 12-09-2021 14:23-0400 Diastolic blood pressure 80 mm[Hg] Manish Shea MD Work Phone: [facility] 12-09-2021 14:23-0400 Respiratory rate 16 /min Manish Shea MD Work Phone: [facility] 12-09-2021 14:23-0400 Systolic blood pressure 120 mm[Hg] Manish Shea MD Work Phone: [facility] 10-28-2021 13:11-0400 Body height 170.2 cm Safia [place] [employer]PRINT ANALYST Work Phone: [facility] 10-28-2021 13:11-0400 Body mass index (BMI) [Ratio] 33.88 kg/m2 Safia [place] PREPRINT ANALYST Work Phone: [facility] 10-28-2021 13:11-0400 Body weight 98.16 kg Safia [place] PREPRINT ANALYST Work Phone: [facility] 10-28-2021 13:11-0400 Diastolic blood pressure 80 mm[Hg] Safia [place] PREPRINT ANALYST Work Phone: [facility] 10-28-2021 13:11-0400 Heart rate 93 /min Safia Anan PREPRINT ANALYST Work Phone: [facility] 10-28-2021 13:11-0400 Respiratory rate 18 /min Safia Castillo CNP Work Phone: [facility] 10-28-2021 13:11-0400 Systolic blood pressure 118 mm[Hg] Safia Castillo CNP Work Phone: [facility] 06-02-2021 12:15-0500 Diastolic blood pressure 88 mm[Hg] Kavita Qureshi PREPRINT ANALYST Work Phone: [facility] Work Phone: 06-02-2021 12:15-0500 Systolic blood pressure 132 mm[Hg] Kavita Qureshi PREPRINT ANALYST Work Phone: [facility] Work Phone: 06-02-2021 11:28-0500 Body height 168.91 cm Kavita Qureshi CNP Work Phone: [facility] Work Phone: 06-02-2021 11:28-0500 Body mass index (BMI) [Ratio] 31.2 kg/m2 Kavita Qureshi CNP Work Phone: [facility] Work Phone: 06-02-2021 11:28-0500 Body surface area Derived from formula 1.99 m2 Kavita Qureshi CNP Work Phone: [facility] Work Phone: 06-02-2021 11:28-0500 Body temperature 96.6 [degF] Kavita Qureshi CNP Work Phone: [facility] Work Phone: 06-02-2021 11:28-0500 Body weight 89 kg Kavita Qureshi PREPRINT ANALYST Work Phone: [facility] Work Phone: 06-02-2021 11:28-0500 Diastolic blood pressure 78 mm[Hg] Kavita Bryanter PREPRINT ANALYST Work Phone: [facility] Work Phone: 06-02-2021 11:28-0500 Heart rate 118 /min Kavita Qureshi CNP Work Phone: [facility] Work Phone: 06-02-2021 11:28-0500 SaO2% (BldA) [Mass fraction] 96 % Kavita Qureshi CNP Work Phone: [facility] Work Phone: 06-02-2021 11:28-0500 Systolic blood pressure 142 mm[Hg] Kavitadima Qureshi PREPRINT ANALYST Work Phone: [facility] Work Phone: 05-18-2021 16:27-0400 Body height 168.91 cm Kavitadima Qureshi PREPRINT ANALYST Work Phone: [facility] Work Phone: 05-18-2021 16:27-0400 Body mass index (BMI) [Ratio] 31.2 kg/m2 Kavitadima Qureshi CNP Work Phone: [facility] Work Phone: 05-18-2021 16:27-0400 Body surface area Derived from formula 1.99 m2 Kavitadima Qureshi TONY Work Phone: [facility] Work Phone: 05-18-2021 16:27-0400 Body temperature 97.6 [degF] Kavita Qureshi PREPRINT ANALYST Work Phone: [facility] Work Phone: 05-18-2021 16:27-0400 Body weight 88.91 kg Kavitadima Qureshi PREPRINT ANALYST Work Phone: [facility] Work Phone: 05-18-2021 16:27-0400 Diastolic blood pressure 76 mm[Hg] Kavita Qureshi CNP Work Phone: [facility] Work Phone: 05-18-2021 16:27-0400 Heart rate 120 /min Kavita Qureshi CNP Work Phone: [facility] Work Phone: 05-18-2021 16:27-0400 Respiratory rate 20 /min Kavita Qureshi CNP Work Phone: [facility] Work Phone: 05-18-2021 16:27-0400 SaO2% (BldA) [Mass fraction] 95 % Kavita Qureshi CNP Work Phone: [facility] Work Phone: 05-18-2021 16:27-0400 Systolic blood pressure 136 mm[Hg] Kavita Qureshi CNP Work Phone: [facility] Work Phone: 04-21-2021 10:31-0400 Body height 168.91 cm Kavita Qureshi CNP Work Phone: [facility] Work Phone: 04-21-2021 10:31-0400 Body mass index (BMI) [Ratio] 29.3 kg/m2 Kavita Qureshi CNP Work Phone: [facility] Work Phone: 04-21-2021 10:31-0400 Body surface area Derived from formula 1.94 m2 Kavita Qureshi CNP Work Phone: [facility] Work Phone: 04-21-2021 10:31-0400 Body temperature 97.4 [degF] Kavita Qureshi CNP Work Phone: [facility] Work Phone: 04-21-2021 10:31-0400 Body weight 83.73 kg Kavita Qureshi CNP Work Phone: [facility] Work Phone: 04-21-2021 10:31-0400 Diastolic blood pressure 76 mm[Hg] Kavita Qureshi PREPRINT ANALYST Work Phone: [facility] Work Phone: 04-21-2021 10:31-0400 Heart rate 107 /min Kavita Qureshi CNP Work Phone: [facility] Work Phone: 04-21-2021 10:31-0400 SaO2% (BldA) [Mass fraction] 96 % Kavita Qureshi CNP Work Phone: [facility] Work Phone: 04-21-2021 10:31-0400 Systolic blood pressure 124 mm[Hg] Kavita Qureshi CNP Work Phone: [facility] Work Phone: 04-16-2021 07:30-0400 Body temperature 98.01 [degF] Reji Rondon MD Work Phone: [employer] Work Phone: 04-16-2021 07:30-0400 Diastolic blood pressure 84 mm[Hg] Reji Rondon MD Work Phone: [employer] Work Phone: 04-16-2021 07:30-0400 Heart rate 99 /min Reji Rondon MD Work Phone: [employer] Work Phone: 04-16-2021 07:30-0400 Respiratory rate 16 /min Reji Rondon MD Work Phone: [employer] Work Phone: 04-16-2021 07:30-0400 SaO2% (BldA) [Mass fraction] 97 % Reji Rondon MD Work Phone: [employer] Work Phone: 04-16-2021 07:30-0400 Systolic blood pressure 164 mm[Hg] Reji Rondon MD Work Phone: [employer] Work Phone: 04-16-2021 06:00-0400 Body mass index (BMI) [Ratio] 30.62 kg/m2 Reji Rondon MD Work Phone: [employer] Work Phone: 04-16-2021 06:00-0400 Body weight 83.46 kg Reji Rondon MD Work Phone: [employer] Work Phone: 04-14-2021 08:09-0400 Body height 165.1 cm Reji Rondon MD Work Phone: [employer] Work Phone: Encounters Encounter Date Encounter Type Care Provider Facility Start: 03-10-2025 End: 03-10-2025 ambulatory Ivana Velasquez MD Facility: [facility] Start: 03-03-2025 End: 03-03-2025 [facility] visit, estab pt Kavita Qureshi CNP Work Phone: [facility] Work Phone: Start: 02-26-2025 End: 02-26-2025 Emergency department patient visit Bekah Lan MD Work Phone: [facility] Emergency Department Comment on above: Dehydration (Primary Dx); Nausea and vomiting, unspecified vomiting type Start: 02-17-2025 End: 02-17-2025 ambulatory Ivana Velasquez MD Facility:[facility] Start: 01-13-2025 End: 01-13-2025 ambulatory Ivana Velasquez MD Facility:[facility] Start: 12-31-2024 End: 12-31-2024 [facility] visit, estab pt Kavita Hardeep PREPRINT ANALYST Work Phone: [facility] Work Phone: Start: 12-06-2024 End: 12-08-2024 ambulatory [facility] Start: 12-06-2024 End: 12-08-2024 Subsequent hospital visit by physician [facility] Mri Scanner [facility] MRI Comment on above: Lumbar back pain; Spondylolisthesis of thoracic region Start: 11-27-2024 End: 11-27-2024 [facility] visit, estab pt Kavita Qureshi PREPRINT ANALYST Work Phone: [facility] Work Phone: Start: 10-24-2024 End: 10-24-2024 [facility] visit, estab pt Kavita Qureshi PREPRINT ANALYST Work Phone: [facility] Work Phone: Start: 10-17-2024 End: 10-19-2024 ambulatory [facility] Start: 10-17-2024 End: 10-19-2024 Subsequent hospital visit by physician Javier Branham DO Work Phone: [facility] Non-Invasive Cardiology Comment on above: Tachycardia; Abnormal EKG; Heart murmur Start: 10-14-2024 End: 10-14-2024 ambulatory [facility] Start: 10-14-2024 End: 10-14-2024 Subsequent hospital visit by physician Fabiana Reynolds PT [facility] Comment on above: Arrived Start: 10-11-2024 End: 10-11-2024 ambulatory [facility]ITA [facility] Start: 10-11-2024 End: 10-11-2024 Subsequent hospital visit by physician Darren Lazo PTA [facility] Comment on above: Arrived Start: 10-08-2024 End: 10-08-2024 ambulatory [facility] Start: 10-08-2024 End: 10-08-2024 Subsequent hospital visit by physician Fabiana Reynolds PT [facility] Comment on above: Arrived Start: 09-29-2024 End: 09-29-2024 Emergency department patient visit Cris Herring MD Work Phone: [facility] Emergency Department Comment on above: Strain of lumbar reg ion, initial encounter (Primary Dx) Start: 09-19-2024 End: 09-19-2024 FQ visit, estab pt Sally Miles PREPRINT ANALYST Work Phone: [facility] Work Phone: Start: 09-09-2024 End: 09-09-2024 Emergency department patient visit Mallory Aleman MD Work Phone: [facility] Emergency Department Comment on above: Tachycardia (Primary Dx); Mid back pain Start: 09-04-2024 End: 09-04-2024 Emergency department patient visit Mallory Aleman MD Work Phone: [facility] Emergency Department Comment on above: Dehydration (Primary Dx); Hyperglycemia due to diabetes mellitus (HCC) Start: 09-03-2024 End: 09-03-2024 Subsequent hospital visit by physician Fabiana Reynolds PT [facility] Start: 09-02-2024 End: 09-02-2024 Subsequent hospital visit by physician Fabiana Reynolds PT [facility] Start: 09-02-2024 End: 09-02-2024 Emergency department patient visit Chaim Del Toro MD Work Phone: [facility] Emergency Department Comment on above: Tachycardia (Primary Dx); Dehydration Start: 09-02-2024 End: 09-02-2024 ambulatory Kavita Qureshi PREPRINT ANALYST Work Phone: [facility] Work Phone: Start: 08-30-2024 End: 09-01-2024 [facility] Start: 08-30-2024 End: 09-01-2024 Subsequent hospital visit by physician [facility] Ultrasound Room [facility] Ultrasound Comment on above: Generalized abdomina l pain Start: 08-22-2024 End: 08-22-2024 Subsequent hospital visit by physician Fabiana Reynolds PT [facility] Start: 08-21-2024 End: 08-21-2024 Emergency department patient visit Chaim Del Toro MD Work Phone: [facility] Emergency Department Comment on above: Hypotension due to h ypovolemia (Primary Dx); Tachycardia Start: 08-21-2024 End: 08-21-2024 Emergency department patient visit [facility] Start: 08-21-2024 End: 08-23-2024 ambulatory Kavita Qureshi PREPRINT ANALYST Work Phone: [facility] Non-Invasive Cardiology Comment on above: Tachycardia Start: 08-21-2024 End: 08-21-2024 Patient encounter procedure Kavita Qureshi PREPRINT ANALYST Work Phone: [facility] Work Phone: Start: 08-20-2024 End: 08-20-2024 Subsequent hospital visit by physician Junior Wayne PTA [facility] Start: [facility]20-[facility] Start: 08-17-2024 End: 08-17-2024 Emergency department patient visit Lukas Lopez MD Work Phone: [facility] Emergency Department Comment on above: Strain of thoracic b ack region (Primary Dx) Start: 08-15-2024 End: 08-15-2024 [facility] Start: 08-15-2024 End: 08-15-2024 Subsequent hospital visit by physician Junior Wayne PTA [facility] Comment on above: Arrived Start: 08-13-2024 End: 08-13-2024 [facility]ulatory [facility] Start: 08-13-2024 End: 08-13-2024 Subsequent hospital visit by physician Fabiana Reynolds PT [facility] Comment on above: Arrived Start: 08-12-2024 End: 08-14-[address] [facility] Start: 08-12-2024 End: 08-14-2024 Subsequent hospital visit by physician Nevaeh Additional Xray [facility] Comment on above: Pain in thoracic spi ne Start: 08-08-2024 End: 08-08-2024 Subsequent hospital visit by physician Samira Yoo [facility] Start: 08-08-2024 End: 08-08-2024 [facility] visit, estab pt Kavita Qureshi PREPRINT ANALYST Work Phone: [facility] Work Phone: Start: 08-08-2024 End: 08-08-2024 Patient encounter procedure Kavita Qureshi PREPRINT ANALYST Work Phone: [facility] Work Phone: Start: 08-06-2024 End: 08-06-2024 Subsequent hospital visit by physician Fabiana Reynolds PT [facility] Start: 08-04-2024 End: 08-04-2024 Emergency department patient visit Namita Rizzo MD Work Phone: [facility] Emergency Department Comment on above: Acute midline low ba ck pain without sciatica (Primary Dx) Start: 08-01-2024 End: 08-01-2024 ambulatory [facility] Start: 08-01-2024 End: 08-01-2024 Subsequent hospital visit by physician Samira Yoo [facility] Comment on above: Arrived Start: 07-30-2024 End: 07-30-2024 ambulatory [facility] Start: 07-30-2024 End: 07-30-2024 Subsequent hospital visit by physician Samira Yoo [facility] Comment on above: Arrived Start: 07-25-2024 End: 07-25-2024 ambulatory [facility] Start: 07-25-2024 End: 07-25-2024 Subsequent hospital visit by physician Samira Yoo [facility] Comment on above: Arrived Start: 07-18-2024 End: 07-18-2024 ambulatory [facility] Start: 07-18-2024 End: 07-18-2024 Subsequent hospital visit by physician Darren Lazo PTA [facility] Comment on above: Arrived Start: 07-16-2024 End: 07-16-2024 Subsequent hospital visit by physician Judy Miller PT [facility] Start: 07-04-2024 End: 07-04-2024 [facility] visit, estab pt Kavita Qureshi CNP Work Phone: [facility] Work Phone: Start: 06-27-2024 End: 06-27-2024 ambulatory KAVITA QURESHI [facility] Start: 06-27-2024 End: 06-27-2024 Subsequent hospital visit by physician Jduy Miller PT [facility] Comment on above: Arrived Start: 06-06-2024 End: 06-06-2024 ambulatory Kavita Qureshi CNP Work Phone: [facility] Work Phone: Start: 06-06-2024 End: 06-06-2024 Encounter for preprocedural laboratory examination Kavita Qureshi CNP Work Phone: [facility] Work Phone: Start: 06-06-2024 End: 06-06-2024 Patient encounter procedure Kavita Qureshi CNP Work Phone: [facility] Work Phone: Start: 06-06-2024 End: 06-06-2024 General Juan Choudhary [facility] Work Phone: [facility] Work Phone: Start: 06-06-2024 End: 06-06-2024 Patient encounter procedure Kavita Qureshi CNP Work Phone: [facility] Work Phone: Start: 09-02-2022 ambulatory [facility] Start: 07-05-2022 End: 07-05-2022 Emergency department patient visit Talita Crouch DO Work Phone: [facility] ED Comment on above: Acute sinusitis, rec urrence not specified, unspecified location (Primary Dx) Start: 07-04-2022 End: 07-04-2022 Subsequent hospital visit by physician [facility] Laboratory Start: 06-21-2022 End: 06-22-2022 [facility] Start: 06-21-2022 End: 06-22-2022 Emergency department patient visit Irvin Magana MD Work Phone: [facility] Comment on above: DKA (diabetic ketoac idosis) Start: 04-07-2022 ambulatory [facility] Start: 04-07-2022 End: 04-07-2022 Office outpatient visit 25 minutes Manish Shea MD Work Phone: [facility] Endocrinology Comment on above: Uncontrolled type 2 diabetes mellitus with hyperglycemia (Primary Dx) Start: 03-29-2022 End: 03-29-2022 Subsequent hospital visit by physician [facility] Start: 03-23-2022 ambulatory [facility] Start: 02-22-2022 End: 02-22-2022 Subsequent hospital visit by physician [facility] Laboratory Comment on above: Dysuria; Acute cystitis with hematuria Start: 02-03-2022 ambulatory [facility] Start: 02-03-2022 End: 02-03-2022 Office outpatient visit 25 minutes Manish Shea MD Work Phone: [facility] Endocrinology Comment on above: Uncontrolled type 2 diabetes mellitus with hyperglycemia (Primary Dx) Start: 12-09-2021 ambulatory [facility] Start: 12-09-2021 End: 12-09-2021 Office outpatient visit 25 minutes Manish Shea MD Work Phone: [facility] [employer] [facility] Comment on above: Uncontrolled type 2 diabetes mellitus with hyperglycemia (Primary Dx) Start: 11-18-2021 ambulatory [facility] Start: 10-28-2021 ambulatory [facility] Start: 10-28-2021 End: 10-28-2021 Office outpatient visit 25 minutes Safia Castillo CNP Work Phone: [facility] Endocrinology Comment on above: Uncontrolled type 2 diabetes mellitus with hyperglycemia (Primary Dx); Mixed hyperlipidemia; Obesity (BMI 30.0-34.9); Alisia syndrome Start: 10-11-2021 End: 10-11-2021 Subsequent hospital visit by physician [facility] Start: 09-30-2021 ambulatory KAVITA [facility] Start: 08-11-2021 End: 08-11-2021 Subsequent hospital visit by physician [facility] Start: 06-02-2021 End: 06-02-2021 [facility] visit, estab pt Kavita Hardeep JIMENEZ Work Phone: [facility] Work Phone: Start: 06-02-2021 End: 06-02-2021 General Kavita Hardeep JIMENEZ Work Phone: [facility] Work Phone: Start: 05-18-2021 End: 05-18-2021 [facility] visit, estab pt Kavita Qureshi PREPRINT ANALYST Work Phone: [facility] Work Phone: Start: 04-21-2021 End: 04-21-2021 [facility] visit, estab pt [facility] Work Phone: [facility] Work Phone: Start: 04-21-2021 End: 04-21-2021 [facility] visit new patient Kavita Bryantalina JIMENEZ Work Phone: [facility] Work Phone: Start: 04-13-2021 End: 04-16-2021 Evaluation and management of inpatient Reij Rondon MD Work Phone: [facility] Comment on above: Diabetic ketoacidosi s without coma associated with diabetes mellitus due to underlying condition (HCC) (Primary Dx); Type 2 diabetes mellitus with complication, without long-term current use of insulin (HCC); Nephrolithiasis Start: 02-11-2020 End: 02-13-2020 Subsequent hospital visit by physician [facility] Cat Scan Room [facility] Laboratory Comment on above: Renal colic Start: 02-11-2020 End: 02-11-2020 Subsequent hospital visit by physician [facility] Lab Drawing Room [facility] Laboratory Comment on above: Renal colic End: 02-27-2017 Patient encounter status Reji Rondon MD Work Phone: [facility] Work Phone: Procedures Date Procedure Procedure Detail Performing Clinician Start: 03-03-2025 Current tobacco non- user cad cap copd pv dm Kavita Qureshi PREPRINT ANALYST Work Phone: Start: 03-03-2025 Foot examination performed Kavita Bryantalina JIMENEZ Work Phone: Start: 03-03-2025 Hemoglobin glycosylated a1c Kavita Qureshi PREPRINT ANALYST Work Phone: Start: 03-03-2025 Most recent diastoli c blood pressure < 80 mm hg Kavita Bryantalina JIMENEZ Work Phone: Start: 03-03-2025 Most recent hemoglob in a1c level >9.0% Kavita Qureshi TONY Work Phone: Start: 03-03-2025 Most recent systolic blood pressure <130 mm hg Kavita Qureshi TONY Work Phone: Start: 02-26-2025 Ecg routine ecg w/le ast 12 lds w/i&r Bekah Lan MD Work Phone: Start: 02-26-2025 Comprehensive metabolic panel Bekah Lan MD Work Phone: Start: 12-31-2024 Hemoglobin glycosylated a1c Kavita Qureshi TONY Work Phone: Start: 12-31-2024 Most recent hemoglob in a1c level >9.0% Kavita Bryantalina JIMENEZ Work Phone: Start: 11-27-2024 Current tobacco non- user cad cap copd pv dm Kavita Hardeepalina JIMENEZ Work Phone: Start: 11-27-2024 Gluc bld gluc mntr d ev cleared fda spec home use Kavita Qureshi PREPRINT ANALYST Work Phone: Start: 11-27-2024 Most recent diastoli [...] recent hg a1c>e qual to 8.0%& Kavita Qureshi CNP Work Phone: Start: 10-24-2024 [...] abdomen & pelvis w/o contrast material Chaim eDl Toro MD Work Phone: Start: 09-02-2024 Ct [...] pressure < 80 mm hg Kavita Qureshi PREPRINT ANALYST Work Phone: Start: 09-02-2024 Most recent systolic blood pressure <130 mm hg Kavita Qureshi PREPRINT ANALYST Work Phone: Start: 08-30-2024 Us retroperitoneal r eal time w/image complete Kavita Qureshi [employer] Work Phone: Start: 08-21-2024 Drug tst prsmv instr mnt chem analyzers pr date Ame J Saldana DO Work Phone: Start: 08-21-2024 Urnls [...] cad cap copd pv dm Kavita Qureshi PREPRINT ANALYST Work Phone: Start: 08-21-2024 Most recent diastoli c blood pressure < 80 mm hg Kavita Qureshi PREPRINT ANALYST Work Phone: Start: 08-21-2024 Most recent systolic blood pressure <130 mm hg Kavita Qureshi PREPRINT ANALYST Work Phone: Start: 08-12-2024 End: 08-12-2024 Radex spine cervical 4 or 5 views Kavita Qureshi [employer] Work Phone: Start: 08-08-2024 Creatinine other source Kavita Qureshi CNP Work Phone: Start: 08-08-2024 Current tobacco non- user cad cap copd pv dm Kaviat Qureshi CNP Work Phone: Start: 08-08-2024 Drug test prsmv [...] Therapeutic prophyla ctic/dx injection subq/im Kavita Qureshi [employer]PRINT ANALYST Work Phone: Start: 08-08-2024 Urine albumin quantitative Kavita Qureshi [employer]PRINT ANALYST Work Phone: Start: 08-08-2024 Urnls dip stick/tabl et rgnt non-auto w/o micrscp Kavita Qureshi PREPRINT ANALYST Work Phone: Start: 07-04-2024 Current tobacco non- user cad cap copd pv dm Kavita Qureshi CNP Work Phone: Start: 07-04-2024 Hemoglobin glycosylated a1c Kavita Hardeepalina JIMENEZ Work Phone: Start: 07-04-2024 Most recent diastoli c blood pressure 80-89 mm hg Kavita Qureshi [employer]PRINT ANALYST Work Phone: Start: 07-04-2024 Most recent hemoglob in a1c level >9.0% Kavita Bryantalina JIMENEZ Work Phone: Start: 07-04-2024 Most recent systolic blood pressure <130 mm hg Kavitadima Qureshi CNP Work Phone: Start: 06-06-2024 Current tobacco non- user cad cap copd pv dm Kavita Qureshi CNP Work Phone: Start: 06-06-2024 Most recent diastoli c blood pressure < 80 mm hg Kavita Hardeep PREPRINT ANALYST Work Phone: Start: 06-06-2024 Most recent systolic blood pressure <130 mm hg Kavita Hardeep PREPRINT ANALYST Work Phone: Start: 07-05-2022 Gluc bld gluc mntr d ev cleared fda spec home use Talita Crouch Work Phone: Start: 07-04-2022 Comprehensive metabolic panel Manish Shea MD Work Phone: Start: 07-04-2022 Lipid panel Manish granados MD Work Phone: Start: 07-04-2022 PATIENT FASTING? Manish Shea MD Work Phone: Start: 07-04-2022 Urine albumin quantitative Manish Shea MD Work Phone: Start: 06-22-2022 End: 06-22-2022 Renal function panel Brijesh Taveras PUTAWAY DRIVER-PREPRINT ANALYST Work Phone: Start: 06-22-2022 End: 06-22-2022 Renal function panel Brijesh Taveras PUTAWAY DRIVER-PREPRINT ANALYST Work Phone: Start: 06-22-2022 Gluc bld gluc [...] with white cell differential, automated Brijesh Taveras PUTAWAY DRIVER-PREPRINT ANALYST Work Phone: Start: 06-22-2022 End: 06-22-2022 Renal [...] Start: 05-18-2021 FQHC visit, estab pt Ca yves Qureshi CNP Work Phone: Start: 05-18-2021 Gluc bld gluc [...] use Kavita Qureshi CNP Work Phone: Start: 04-21-2021 Most recent diastoli c blood pressure < 80 mm hg Kavita Qureshi CNP Work Phone: Start: 04-21-2021 Most recent systolic blood pressure <130 mm hg Kavita Qureshi CNP Work Phone: Start: 04-21-2021 Urine albumin semiquantitative Kavita Qureshi CNP Work Phone: Start: 04-16-2021 End: 04-16-2021 Basic [...] abdomen & pelvis w/o contrast material Rosangela Gongora Work Phone: Start: 02-11-2020 Basic metabolic pane l calcium total Rosangela Foster [employer] Work Phone: Start: 02-11-2020 Blood count complete auto&auto difrntl wbc Rosangela Gongora Work Phone: Start: 02-11-2020 Urnls dip stick/tabl et reagent auto microscopy Rosangela Gongora Work Phone: Start: 10-23-2018 Microscopic observat ion [Identifier] in Cervix by Cyto stain Reji Rondon MD Work Phone: Plan of Treatment Date Care Activity Detail Author Start: 02-26-2026 GFR test (Diabetes, CKD 3-4, OR last GFR 15-59) GFR test (Diabetes, CKD 3-4, OR last GFR 15-59) [facility] Start: 09-09-2025 GFR test (Diabetes, CKD 3-4, OR last GFR 15-59) GFR test (Diabetes, CKD 3-4, OR last GFR 15-59) [facility] Start: 09-04-2025 GFR test (Diabetes, CKD 3-4, OR last GFR 15-59) GFR test (Diabetes, CKD 3-4, OR last GFR 15-59) [facility] Start: 09-02-2025 GFR test (Diabetes, CKD 3-4, OR last GFR 15-59) GFR test (Diabetes, CKD 3-4, OR last GFR 15-59) [facility] [employer] Start: 09-02-2025 Screening for malignant neoplasm of lung Lung Cancer Screening &/or Counseling [facility] Start: 08-21-2025 GFR test (Diabetes, CKD 3-4, OR last GFR 15-59) GFR test (Diabetes, CKD 3-4, OR last GFR 15-59) [facility] Start: 03-03-2025 End: 03-03-2025 Patient education based on identified need [facility] Start: 02-14-2025 [facility] Start: 01-27-2025 End: 01-27-2025 Patient encounter procedure 01/27/2025 9:20 AM EDT Office Visit [facility] [employer] [facility] [address] [place] [address] Waylon Moy MD [address] [place] [address] [place] [address] Postherpetic polyneuropathy [facility] Comment on above: Postherpetic polyneuropathy Start: 12-31-2024 FQHC visit, estab pt Medical Established Patient [facility] Work Phone: Start: 12-31-2024 End: 12-31-2024 Patient education based on identified need [facility] Start: 11-27-2024 [facility] Work Phone: Comment on above: Note: Please make a referral to: Start: 11-27-2024 End: 11-27-2024 Patient education based on identified need [facility] Start: 11-21-2024 FQHC visit, estab pt Medical Established Patient [facility] Work Phone: Start: 11-19-2024 End: 11-19-2024 Patient encounter procedure 11/19/2024 11:00 AM EDT Office Visit [facility] Senior Accounting Clerk [address] [place] [id number] Javier Branham DO [address] [place] [address] 6 week f/u no testing [facility] Senior Accounting Clerk Comment on above: 6 week f/u no testing Start: 10-24-2024 End: 10-24-2024 Patient education based on identified need [facility] Start: 10-17-2024 End: 10-17-2024 Patient encounter procedure 10/17/2024 10:00 AM EDT Appointment [facility] [address] [place] [address] Javier Branham DO [address] [place] [address] EPIC//PT [facility] Comment on above: EPIC//PT Start: 10-14-2024 End: 10-14-2024 Patient encounter procedure 10/14/2024 10:30 AM EDT Appointment [facility] Physical Therapy [address] [place] [address] Fabiana Reynolds, PT *[employer] 9 of 30 Muscle Weak[facility] Comment on above: *[employer] 9 of 30 Muscle Weakness Start: 10-11-2024 End: 10-11-2024 Patient encounter procedure 10/11/2024 10:30 AM EDT Appointment [facility] [address] [place] [address] Darren Lazo PTA *[employer] 8 of 30 Muscle Weakness [facility] Comment on above: *[employer] 8 of 30 Muscle Weakness Start: 10-01-2024 End: 10-01-2024 Patient encounter procedure 10/01/2024 10:30 AM EDT Office Visit [facility] Senior Accounting Clerk [address] [place] [address] Javier Branham DO [address] [place] [address] New patient--Referral from [facility] and [facility] ED --Elevated BP, tachycardia, --(saw Dr. Hsieh years ago for a surgery clearance-)-no other associate dentist-- f/u ED --f/u monitor ordered by ED--EKG done [facility] Senior Accounting Clerk Comment on above: New patient--Referral from [facility] ED --Elevated BP, tachycardia, --(saw Dr. Hsieh years ago for a surgery clearance-)-no other associate dentist-- f/u ED --f/u monitor ordered by ED--EKG done Start: 09-29-2024 US Retroperitoneal Compl. (Renal/Bladder) (48760) [facility] Start: 09-19-2024 End: 09-19-2024 Patient education based on identified need [facility] Start: 09-18-2024 US Retroperitoneal Compl. (Renal/Bladder) ([id number]) [facility] Start: 09-10-2024 FQHC visit, estab pt Medical Established Patient [facility] Work Phone: Start: 09-07-2024 [facility] Start: 09-04-2024 FQHC visit, estab pt Medical Established Patient [facility] Work Phone: Start: 09-03-2024 End: 09-03-2024 Patient encounter procedure [facility] Comment on above: *[employer] 8 of 30 Muscle Weakness *[employer] 7 of 30 Muscle Weakness Start: 09-02-2024 End: 09-02-2024 Patient encounter procedure 09/02/2024 2:00 PM EST Appointment [facility] [address] [place] [address] Fabiana Reynolds, PT *[employer] 7 of 30 Muscle Weakness [facility] Comment on above: *[employer] 7 of 30 Muscle Weakness Start: 09-02-2024 End: 09-02-2024 Patient education based on identified need [facility] Start: 09-02-2024 Open Access - Established [facility] Work Phone: Start: 08-29-2024 End: 08-29-2024 Patient encounter procedure 08/29/2024 1:00 PM EST Appointment [employer] [place] [facility] [address] [place] [address] media/pt [facility] [employer] [facility] Comment on above: media/pt Start: 08-22-2024 End: 08-22-2024 Patient encounter procedure [facility] Comment on above: *[employer] 8 of 30 Muscle Weakness *[employer] 7 of 30 Muscle Weakness Start: 08-21-2024 End: 08-21-2024 Patient education based on identified need [facility] Start: 08-20-2024 End: 08-20-2024 Patient encounter procedure [facility] Comment on above: *[employer] 7 of 30 Muscle Weakness Start: 08-15-2024 End: 08-15-2024 Patient encounter procedure 08/15/2024 1:30 PM EST Appointment [facility] [address] [place] [address] Junior Wayne PTA [facility] Start: 08-15-2024 Subsequent hospital visit by physician 08/15/2024 1:30 PM EST Hospital Encounter [facility] [address] [place] [address] Junior Wayne PTA [facility] Start: 08-13-2024 End: 08-13-2024 Patient encounter procedure 08/13/2024 3:30 PM EST Appointment [facility] [address] [place] [address] Fabiana Reynolds, PT *[employer] 5 of 30 Muscle Weakness [facility] Comment on above: *[employer] 5 of 30 Muscle Weakness Start: 08-08-2024 End: 08-08-2024 Patient education based on identified need [facility] Start: 08-08-2024 FQ visit, estab pt [facility] Comment on above: Note: Please make a referral to:[facility] Start: 08-08-2024 End: 08-08-2024 Patient encounter procedure [...] PM EST Appointment [facility] [address] [place] [address] Samira Yoo [facility] Start: 07-25-2024 End: 07-25-2024 Patient encounter procedure 07/25/2024 1:30 PM EST Appointment [facility] [address] [place] [address] Samira Yoo [facility] Start: 07-04-2024 [facility] visit, estab pt Medical Established Patient [facility] Work Phone: Start: 07-04-2024 End: 07-04-2024 Patient education based on identified need [facility] Start: 07-04-2024 End: 07-04-2024 Patient encounter procedure 07/04/2024 1:45 PM EST Appointment [facility] [address] [place] [address] Judy Miller, PT Muscle Weakness [facility] Therapy Comment on above: Muscle Weakness Start: 07-02-2024 End: 07-02-2024 Patient encounter procedure 07/02/2024 1:00 PM EST Appointment [facility] Physical Therapy [address] [place] [address] Anaya Chandni Rickey Muscle Weakness [facility] Physical Therapy Comment on above: Muscle Weakness Start: 06-06-2024 End: 06-06-2024 Patient education based on identified need [facility] Start: 06-06-2024 CBC W Auto Differential panel - Blood [facility] Comment on above: Note: Please make a referral to:[facility] Fax [phone] Note: Please make a referral to:Dr. Michael Hsieh Start: 06-06-2024 Thyrotropin [Units/volume] in Serum or Plasma TSH+Free T4 [facility] Start: 03-17-2024 COVID-19 Vaccine ( season) COVID-19 Vaccine ( season) [facility] Start: 03-17-2024 COVID-19 Vaccine ( season) COVID-19 Vaccine ( season) [facility] Start: 02-15-2024 Influenza vaccination Flu vaccine (#1) [facility] Start: 10-24-2023 Screening for malignant neoplasm of cervix Cervical cancer screen [place], [place] Start: 07-04-2023 GFR test (Diabetes, CKD 3-4, OR last GFR 15-59) GFR test (Diabetes, CKD 3-4, OR last GFR 15-59) [facility] Start: 07-04-2023 Hemoglobin A1c measurement A1C test (Diabetic or Prediabetic) [facility] Start: 07-04-2023 Lipid panel Lipids [facility] Start: 07-04-2023 Urine screening for protein [facility] Start: 03-29-2023 Lipid panel Lipids [facility] Start: 03-29-2023 Urine screening for protein Diabetic microalbuminuria test [facility] Start: 10-08-2022 Creatinine measurement Creatinine monitoring [facility] Start: 10-08-2022 Lipid panel [facility] Start: 10-08-2022 Potassium monitoring Potassium monitoring [facility] Start: 10-08-2022 Urine screening for protein Diabetic microalbuminuria test [facility] Start: 10-02-2022 Hemoglobin A1c measurement A1C test (Diabetic or Prediabetic) [facility] Start: 07-07-2022 End: 07-07-2022 Patient encounter procedure 07/07/2022 Office Visit Endocrinology, Diabetes & Metabolism Manish Shea MD [address] [place] [address] [facility] Start: 06-28-2022 Hemoglobin A1c measurement A1C test (Diabetic or Prediabetic) [facility] Start: 04-16-2022 Creatinine measurement Creatinine monitoring [facility] Start: 04-16-2022 Potassium monitoring Potassium monitoring [facility] Start: 04-07-2022 End: 04-07-2022 Patient encounter procedure 04/07/2022 Office Visit Endocrinology, Diabetes & Metabolism Manish Shea MD [address] [place] [address] [facility] [employer] [facility] Start: 03-17-2022 Influenza vaccination [facility] [employer] [facility] Start: 02-14-2022 Influenza vaccination Flu vaccine (#1) [facility] Start: 02-03-2022 End: 02-03-2022 Patient encounter procedure 02/03/2022 Office Visit Endocrinology, Diabetes & Metabolism Manish Shea MD [address] [place] [address] [facility] [employer] [facility] Start: 01-08-2022 Hemoglobin A1c measurement A1C test (Diabetic or Prediabetic) [facility] Start: 12-09-2021 End: 12-09-2021 Patient encounter procedure 12/09/2021 Office Visit Endocrinology, Diabetes & Metabolism Manish Shea MD [address] [place] [address] [facility] [employer] [facility] Start: 10-28-2021 End: 10-28-2022 CORTISOL CORTISOL Lab Routine Willernie syndrome Expected: 10/28/2021, Expires: 10/28/2022 [facility] Comment on above: Expected: 10/28/2021, Expires: Start: 10-23-2021 Screening for malignant neoplasm of cervix [facility] Start: 07-14-2021 Hemoglobin A1c measurement A1C test (Diabetic or Prediabetic) [facility] Start: 07-02-2021 Other Diagnostic Test: [facility] Start: 06-30-2021 FQHC visit, estab pt Medical Established Patient [facility] Work Phone: Start: 06-02-2021 FQHC visit, estab pt Medical Established Patient [facility] Work Phone: Start: 06-02-2021 End: 06-02-2021 Patient education based on identified need [facility] Start: 05-21-2021 Cardiovascular Stress Test (49933) [facility] Start: 05-18-2021 End: 05-18-2021 Patient education based on identified need [facility] Start: 05-18-2021 End: 05-18-2021 Provider instructions for treatment Maintain a healthy diet [facility] Start: 05-05-2021 FQHC visit, estab pt Medical Established Patient [facility] Work Phone: Start: 04-23-2021 End: 04-23-2021 Patient encounter procedure 04/23/2021 Office Visit Urology Mason Monterroso MD [address] [place] [address], [address] [place] [id number] [phone] [facility] Start: 04-22-2021 [facility] Start: 04-21-2021 Endocrinology [facility] Work Phone: Comment on above: Note: Please make a referral to:[facility] Start: 04-21-2021 End: 04-21-2021 Patient education based on identified need [facility] Start: 04-21-2021 End: 04-21-2021 Provider instructions for treatment Maintain a healthy diet [facility] Start: 03-17-2021 Influenza vaccination Flu vaccine (#1) [facility] Start: 02-24-2021 Screening for malignant neoplasm of cervix HPV (without or with Pap) [facility] Start: 03-17-2020 Influenza vaccination Flu vaccine (#1) [place], [place] Start: 03-04-2020 End: 03-04-2020 Office Visit 03/04/2020 Office Visit General Surgery Robyn Coronado I, DO [address] [place] [address] [address] [place] [address] [facility] Start: 10-18-2019 HbA1c (Bld) [Mass fraction] A1C test (Diabetic or Prediabetic) [place], [place] Start: 06-16-2019 Diabetic microalbuminuria test Diabetic microalbuminuria test [place] Start: 06-16-2019 Lipid panel Lipid screen [facility] Start: 06-16-2019 Urine screening for protein Diabetic microalbuminuria test [facility] Start: 02-28-2018 Diabetic foot examination Diabetic foot exam [facility] Start: 01-04-2018 Screening for malignant neoplasm of breast Breast cancer screen [facility] Start: 01-04-2018 Screening for malignant neoplasm of colon Colon cancer screen colonoscopy [place], [place] Start: 01-04-2018 Screening for malignant neoplasm of lung [facility] Start: 01-04-2018 Shingles Vaccine (1 of 2) Shingles Vaccine (1 of 2) [facility] Start: 01-04-2018 Zoster vaccine hzv live for subcutaneous use ZOSTER (SHINGLES) VACCINE (1 of 2) [facility] Start: 10-22-2016 Screening for malignant neoplasm of breast Breast cancer screen [facility] [employer] Start: 10-15-2014 Diabetic retinal exam Diabetic retinal exam [facility] Start: 10-15-2014 Glaucoma screening Diabetic retinal exam [facility] Start: 01-04-2013 Colonoscopy COLORECTAL CANCER SCREENING DISCUSSION [facility] Start: 01-04-2013 Screening for malignant neoplasm of colon [facility] Start: 2008 Fasting lipid profile [facility]IPID SCREENING [facility] Start: 2008 Lipid panel LIPID SCREENING [facility] Start: 2008 Screening for malignant neoplasm of breast MAMMOGRAM SCREENING DISCUSSION [facility] Start: 2008 Screening mammography MAMMOGRAM SCREENING DISCUSSION [facility] Start: 01-04-1989 Screening for malignant neoplasm of cervix CERVICAL CANCER SCREENING DISCUSSION [facility] Start: 01-04-1987 DTaP/Tdap/Td vaccine (1 - Tdap) DTaP/Tdap/Td vaccine (1 - Tdap) [facility] Start: 01-04-1987 Hepatitis B vaccine (1 of 3 - 19+ 3-dose series) Hepatitis B vaccine (1 of 3 - 19+ 3-dose series) [facility] Start: 01-04-1987 Hepatitis B vaccine (1 of 3 - Risk 3-dose series) Hepatitis B vaccine (1 of 3 - Risk 3-dose series) [facility] Start: 01-04-1987 Pneumococcal 50+ years Vaccine (1 of 2 - PCV) Pneumococcal 50+ years Vaccine (1 of 2 - PCV) [facility] Start: 01-04-1987 Third diphtheria, tetanus and acellular pertussis (DTaP) vaccination TDAP (ADULT) [facility] Start: 01-04-1986 Tetanus vaccination TETANUS [facility] Start: 01-04-1983 HIV screening HIV SCREENING DISCUSSION [facility] Start: 1980 COVID-19 Vaccine (1) COVID-19 Vaccine (1) [facility] Work Phone: Start: 1980 Depression Screen Depression Screen [facility] Start: 01-04-1974 Pneumococcal 0-64 years Vaccine (1 - PCV) Pneumococcal 0-64 years Vaccine (1 - PCV) [facility] Start: 01-04-1974 Pneumococcal 0-64 years Vaccine (1 of 1 - PPSV23) Pneumococcal 0-64 years Vaccine (1 of 1 - PPSV23) [facility] [place] Start: 01-04-1974 Pneumococcal 0-64 years Vaccine (1 of 2 - PCV) Pneumococcal 0-64 years Vaccine (1 of 2 - PCV) [facility] Start: 01-04-1974 Pneumococcal 0-64 years Vaccine (1 of 2 - PPSV23) Pneumococcal 0-64 years Vaccine (1 of 2 - PPSV23) [facility] Start: 01-04-1973 COVID-19 VACCINE (#1) COVID-19 VACCINE (#1) [facility] Start: 01-04-1973 COVID-19 Vaccine (1) COVID-19 Vaccine (1) [facility] Start: 1968 COVID-19 VACCINE (#1) COVID-19 VACCINE (#1) [facility] Start: 1968 Hepatitis C antibody, confirmatory test HEPATITIS C VIRUS SCREENING [facility] Start: 1968 Hepatitis C screening HEPATITIS C VIRUS SCREENING [facility] Start: 1968 Tetanus vaccination TETANUS [facility] End: 08-11-2021 C-Peptide [facility] [employer] Phone: Comment on above: Once for 1 Occurrences starting 08/11/19 until 08/11/2021 C-PEPTIDE C-PEPTIDE Lab Ro utitx Uncontrolled type 2 diabetes mellitus with hyperglycemia Ordered: 02/03/2022 [facility] Comment on above: Ordered: 02/03/2022 End: 04-14-2021 Clostridium Difficile Toxin/Antigen Clostridium Difficile Toxin/Antigen Microbiology Routine 48 HRS for 48 Hours starting 04/14/2021 until 04/14/2021 [facility] [employer] Phone: Comment on above: 48 HRS for 48 Hours starting 03/18 until 04/14/2021 Complete blood count with white cell differential, automated CBC, EDIF, PLATELET Lab Routine Uncontrolled type 2 diabetes mellitus with hyperglycemia Ordered: 02/03/2022 [facility] Comment on above: Ordered: 02/03/2022 Comprehensive metabo lic 2000 panel - Serum or Plasma COMPREHENSIVE METABOLIC PANEL Lab Routine Uncontrolled type 2 diabetes mellitus with hyperglycemia Ordered: 02/03/2022 [facility] Comment on above: Ordered: 02/03/2022 CT Chest WO contrast CT CHEST WO CONTRAST Imaging STAT 09/02/2024 5:54 PM EST [facility] End: 08-21-2024 Culture, Blood 1 [facility] Comment on above: One Time for 1 Occurrences starting 11/2024 until 08/21/2024 End: 09-02-2024 Culture, Blood 2 [employer] Work Phone: Comment on above: One Time for 1 Occurrences starting 08/17 until 09/02/2024 End: 02-11-2020 Culture, Urine Culture, Urine Microbiology Routine Renal colic 1 Occurrences starting 02/11/2020 until 02/11/2020 [employer] [facility] Comment on above: 1 Occurrences starting 02/11/2020 until 02/11/2020 Culture, Urine Culture, Urine Microbiology Routine Renal colic 02/11/2020 9:20 AM EDT [facility] End: 02-22-2022 Culture, Urine [email or web address] Work Phone: Comment on above: 1 Occurrences starting 02/22/2022 until 02/22/2022 End: 10-17-2024 Echo (TTE) complete (PRN contrast/bubble/strain/3 D) [facility] Comment on above: 1 Occurrences starting 10/17/2024 until 10/17/2024 EKG 12 Lead EKG 12 Lead ECG Routine 09/02/2024 2:12 PM EST [facility] EKG 12 Lead EKG 12 Lead ECG STAT 09/04/2024 8:24 AM EST [facility] EKG 12 Lead EKG 12 Lead ECG STAT 02/26/2025 1:20 PM EDT [employer] End: 08-21-2024 Extended cardiac holter monitor (3 day-14 day) Extended cardiac holter monitor (3 day-14 day) [facility] Routine One Time for 1 Occurrences starting 08/21/2024 until 08/21/2024 [employer] Comment on above: One Time for 1 Occurrences starting 11/2024 until 08/21/2024 End: 08-22-2024 Extended cardiac holter monitor (3 days-14 day) [employer] Work Phone: Comment on above: 1 Occurrences starting 08/22/2024 until 08/22/2024 Glucose [Mass/volume ] in Serum or Plasma [employer] Phone: Comment on above: 4X Daily (AC & HS) until discontinued st arting 04/14/2021 As Needed until disc ontinued starting 04/14/2021 Hemoglobin A1c/Hemoglobin.total in Blood HEMOGLOBIN A1C Lab Routine Uncontrolled type 2 diabetes mellitus with hyperglycemia Ordered: 02/03/2022 [facility] Comment on above: Ordered: 02/03/2022 INSULIN INSULIN Lab Rout ine Uncontrolled type 2 diabetes mellitus with hyperglycemia Ordered: 02/03/2022 [facility] Comment on above: Ordered: 02/03/2022 End: 08-21-2024 Lactate, Sepsis Lactate, Sepsis Lab Timed Every 2 Hours (Lab) for 2 Occurrences starting 08/21/2024 until 08/21/2024, 1 completed [employer] Phone: Comment on above: Every 2 Hours (Lab) for [address] arting 08/21/2024 until 08/21/2024, 1 completed End: 08-11-2021 Lipid panel [employer] Phone: Comment on above: Once for 1 Occurrences starting 08/11/19 until 08/11/2021 LIPID PANEL W CALCUL ATED LDL LIPID PANEL W CALCULATED LDL Lab Routine Uncontrolled type 2 diabetes mellitus with hyperglycemia Ordered: 02/03/2022 [facility] Comment on above: Ordered: 02/03/2022 End: 03-29-2022 Microalbumin, Ur [employer] Phone: Comment on above: Once for 1 Occurrences starting 03/29/20 until 03/29/2022 MICROALBUMIN/CREATIN INE RATIO MICROALBUMIN/CREATININE RATIO Fluids Routine Uncontrolled type 2 diabetes mellitus with hyperglycemia Ordered: 02/03/2022 [employer] Comment on above: Ordered: 02/03/2022 End: 12-06-2024 MR Lumbar spine WO contrast [employer] Comment on above: 1 Occurrences starting 12/06/2024 until 12/06/2024 Oxygen therapy [[facility] Data Set] Initiate Oxygen Therapy Protocol Respiratory Care Routine Daily until discontinued starting 04/13/2021 [employer] Phone: Comment on above: Daily until discontinued starting 2020 End: 04-13-2021 pH, venous pH, venous Lab STAT One Time for 1 Occurrences starting 04/13/2021 until 04/13/2021 [employer] Phone: Comment on above: One Time for 1 Occurrences starting 03/18 until 04/13/2021 pH, venous pH, venous Lab S TAT 04/13/2021 7:35 PM EDT [facility] Work Phone: End: 10-10-2021 Salivary [facility] Comment on above: Once for 1 Occurrences starting 10/11/19 22 until 10/10/2021 Standard ECG ECG ECG STAT 12/2021 3:51 PM [facility] End: 02-26-2025 Thyroxine (T4) free [Mass/volume] in Serum or Plasma [facility] Comment on above: One Time for 1 Occurrences starting 02/14 until 02/26/2025 End: 08-04-2024 XR Lumbar spine 4 Views [facility] Comment on above: Once for 1 Occurrences starting 08/04/19 until 08/04/2024 Immunizations Immunization Date Immunization Notes Care Provider Jeff francisco 12-15-2004 measles, mumps and r ubella virus vaccine [facility], [place] 02-09-2001 measles, mumps and r ubella virus vaccine [facility] Payers Date Payer Category Payer Unknown [id number] 2014 Unknown [facility] MEDICAID [id number] 2014-Present [phone] CLAIMS DEPARTMENT [address] [place] [address] [id number]. [id number] 2014 Unknown [id number] 1.2.840.130031.1.13.239.2. 7.3.433514.315 2014 Unknown [id number] 2.16840.1.734668.3.140.1. 30260.5.10.6.3 1968 Unknown [id number] 2.840.1.767612.3.579.2. 983 1968 Unknown [id number] 2.16.840.1.614988.3.579.2. 983 1968 Unknown [id number] 2.16.840.1.699378.3.579.2. 983 1968 Unknown [id number] 2.16.840.1.371977.3.579.2. 983 1968 Unknown [id number] 2.16.840.1.178861.3.579.2. 983 1968 Unknown [id number] 2.16.840.1.989638.3.579.2. 983 1968 Unknown [id number] 2.16.840.1.413722.3.579.2. 983 1968 Unknown [id number] 2.840.1.076597.3.579.2. 983 1968 Unknown [id number] 2.840.1.828910.3.579.2. 983 1968 Unknown [id number] 2.16.840.1.023126.3.579.2. 173 1968 Unknown [id number] 2.840.1.501938.3.579.2. 173 1968 Unknown [id number] 2.840.1.022040.3.579.2. 173 1968 Unknown [id number] 2.840.1.683803.3.579.2. 173 1968 Unknown [id number] 2.16.840.1.740743.3.579.2. 174 1968 Unknown [id number] 2.16.840.1.946689.3.579.2. 174 1968 Unknown [id number] 2.16.840.1.216059.3.579.2. 174 1968 Unknown [id number] 2.16.840.1.776714.3.579.2. 174 1968 Unknown [id number] 2.16.840.1.768425.3.579.2. 174 1968 Unknown [id number] 2.16.840.1.292274.3.579.2. 174 1968 Unknown [id number] 2.16.840.1.825076.3.579.2. 174 1968 Unknown [id number] 2.16.840.1.892634.3.579.2. 174 1968 Unknown [id number] 2.16.840.1.451442.3.579.2. 174 1968 Unknown [id number] 2.16.840.1.542945.3.579.2. 174 1968 Unknown [id number] 2.16.840.1.517760.3.579.2. 174 1968 Unknown [id number] 2.16.840.1.252735.3.579.2. 174 1968 Unknown [id number] 2.16.840.1.244911.3.579.2. 174 1968 Unknown [id number] 2.16.840.1.185837.3.579.2. 174 1968 Unknown [id number] 2.16.840.1.348447.3.579.2. 174 1968 Unknown [id number] 2.16.840.1.414545.3.579.2. 174 1968 Unknown [id number] 2.16.840.1.521438.3.579.2. 174 1968 Unknown [id number] 2.16.840.1.122347.3.579.2. 1968 Unknown [id number] 2.16.840.1.974376.3.579.2. 174 1968 Unknown [id number] 2.16.840.1.745313.3.579.2. 174 1968 Unknown [id number] 2.16.840.1.251744.3.579.2. 174 1968 Unknown [id number] 2.16.840.1.519028.3.579.2. 174 1968 Unknown [id number] 2.16.840.1.402011.3.579.2. 174 1968 Unknown [id number] 2.16.840.1.236406.3.579.2. 196 1968 Unknown [id number] 2.16.840.1.182772.3.579.2. 196 1968 Unknown [id number] 2.16.840.1.739097.3.579.2. 196 Private Health Insurance 1 - Car [facility] Advantage Medicare [id number] 2.16.840.1.174596.3.140.1. 23314.5.10.6.3 Social History Date Type Detail Facility Start: 02-11-2020 End: 02-22-2022 Tobacco smoking status NHIS Former smoker [facility] Start: 07-25-1987 End: 07-25-2017 History of tobacco use Current smoker [place] Start: 07-25-1987 End: 07-25-2017 History of tobacco use Cigarette Smoker [place] Start: 02-11-2020 End: 09-09-2024 Cigarettes smoked current (pack per day) - Reported [place] Start: 02-11-2020 End: 02-22-2022 Tobacco use and exposure Never used [place] Start: 02-11-2020 End: 09-29-2024 Alcohol intake Current non-drinker of alcohol (finding) [place] Start: 04-21-2016 [place] Start: 1970 Sex Assigned At Not on file [place] Start: 01-24-2022 End: 07-05-2022 Exposure to SARS-CoV-2 (event) Not sure [place] Assertion Currently not se xually active (finding) [facility] Assertion Gender identity finding (finding) [facility] Assertion Finding of sexua l orientation (finding) [facility] Tobacco smoking status Unknown if ever smoked [facility] Work Phone: Start: 05-10-2018 End: 07-17-2018 Assertion [facility] Start: 08-03-2021 Tobacco smoking status NHIS Never smoked tobacco [facility] Start: 10-28-2021 End: 06-21-2022 Alcohol intake Ex-drinker (finding) [facility] Start: 07-05-2022 End: 09-09-2024 Tobacco use panel [facility] How often to you hav e a drink containing alcohol? Never [facility] Start: 08-26-2012 Sex Female (finding) [facility] Start: 02-26-2025 Alcoholic beverage intake Lifetime non-drinker (finding) [employer] NEGATED: Highlighted row Assertion Current drinker of alcohol (finding) [facility] NEGATED: Highlighted row Assertion Finding relating to drug misuse behavior (finding) [facility] NEGATED: Highlighted row Assertion Exposure to pollution (event) [facility] NEGATED: Highlighted row Assertion [facility] NEGATED: Highlighted row Assertion Tobacco user (finding) [facility] NEGATED: Highlighted row Assertion Sexually active (finding) [facility] Medical Equipment Procedure Code Equipment Code Equipment Origin al Text Equipment Identifier Dates 1 each by Does n ot apply route daily [id number] Start: 10-23-2018 End: 04-16-2021 1 each by Does n ot apply route 5 times daily Dx: IDDM. 5 injections daily. [id number] Start: 11-13-2017 End: 04-16-2021 Test 4 times a d ay & as needed for symptoms of irregular blood glucose. Dispense sufficient amount for indicated testing frequency plus additional to accommodate PRN testing needs. [id number] Start: 04-16-2021 End: 09-04-2024 1 each by Does n ot apply route 4 times daily [id number] Start: 04-16-2021 End: 09-04-2024 Injection 5 time s a day. [id number] Start: 04-16-2021 End: 09-04-2024 Pen [place] 32G X 5 MM Miscellaneous [id number] Start: 04-21-2021 End: 07-05-2022 Pen [place] 32G X 5 MM Miscellaneous [id number] Start: 06-06-2024 Pen [place] 32G X 5 MM Miscellaneous [id number] Start: 07-05-2022 End: 06-06-2024 BD Lancet Ultraf ine 33G Miscellaneous [id number] Start: 07-04-2024 True Metrix Bloo d Glucose Test In Vitro Strip [id number] Start: 07-04-2024 Insulin Syringe 31G X 5/16 1 ML Miscellaneous [id number] Start: 08-08-2024 Functional Status Date Assessment Result Facility [facility] Mental Status Date Assessment Result Facility Cognitive function Cognitive fun ctioning was normal Cognitive function finding (finding) [facility] Work Phone: Clinical Notes 04-15-2021 to 03-03-2025 Note Date & Type Note Facility 03-03-2025 Evaluation note Includes: Assessments for all patient encounters Findings [Body mass index [BMI] 27.0-27.9, adult] assessment of body mass index Medical Established Patient with Kavita Hardeep PREPRINT ANALYST 03/03/2025 Last Documented On 5 3:50PM ; [facility] Assessment of pain in the th oracic spine Medical Established Patient with Kavita Hardeep PREPRINT ANALYST 03/03/2025 Last Documented On 5 3:50PM ; [facility] Type 2 diabetes mellitus Medical Established Pat ient with Kavita Hardeep PREPRINT ANALYST 03/03/2025 Last Documented On 5 3:50PM ; [facility] Body mass index Medical Established Patient with Kavita Hardeep PREPRINT ANALYST 12/31/2024 Last Documented On 5 2:02PM ; [facility] Type 2 diabetes mellitus Medical Established Pat ient with Kavita Hardeep PREPRINT ANALYST 12/31/2024 Last Documented On 5 2:02PM ; [facility] [Body mass index [BMI] 27.0- 27.9, adult] assessment of body mass index Medical Established Patient with Kavita Hardeep PREPRINT ANALYST 11/27/2024 Last Documented On 5 6:16AM ; [facility] Assessment of pain in the th oracic spine Medical Established Patient with Kavita Hardeep PREPRINT ANALYST 11/27/2024 Last Documented On 5 6:16AM ; [facility] Postherpetic polyneuropathy Medical Esta blished Patient with Kavita Hardeep PREPRINT ANALYST 11/27/2024 Last Documented On 5 6:16AM ; [facility] Type 2 diabetes mellitus Medical Established Pat ient with Kavita Hardeep PREPRINT ANALYST 11/27/2024 Last Documented On 5 6:16AM ; [facility] [Body mass index [BMI] 27.0- 27.9, adult] assessment of body mass index Medical Established Patient with Kavita Hardeep PREPRINT ANALYST 10/24/2024 Last Documented On 5 9:04PM ; [facility] Type 2 diabetes mellitus Medical Established Pat ient with Kavita Hardeep PREPRINT ANALYST 10/24/2024 Last Documented On 5 9:04PM ; [facility] [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 Medical Established Patient with Sally Ginger PREPRINT ANALYST 09/19/2024 Last Documented On 5 1:29PM ; [facility] Assessment of body mass index Medical Es tablished Patient with Sally Ginger PREPRINT ANALYST 09/19/2024 Last Documented On 5 1:29PM ; [facility] Body mass index Medical Established Patient with Sally Ginger PREPRINT ANALYST 09/19/2024 Last Documented On 5 1:29PM ; [facility] Type 2 diabetes mellitus Medical Established Pat ient with Sally Ginger PREPRINT ANALYST 09/19/2024 Last Documented On 5 1:29PM ; [facility] Type 2 diabetes mellitus Medical Established Pat ient with Sally Ginger PREPRINT ANALYST 09/19/2024 Last Documented On 5 1:29PM ; [facility] [Body mass index [BMI] 28.0- 28.9, adult] assessment of body mass index Open Access - Established with Kavita Hardeep PREPRINT ANALYST 09/02/2024 Last Documented On 5 2:11PM ; [facility] Assessment of pain in the th oracic spine Open Access - Established with Kavita Hardeep PREPRINT ANALYST 09/02/2024 Last Documented On 5 2:11PM ; [facility] Type 2 diabetes mellitus Open Access - Establish ed with Kavita Hardeep PREPRINT ANALYST 09/02/2024 Last Documented On 5 2:11PM ; [facility] [Body mass index [BMI] 28.0- 28.9, adult] assessment of body mass index Open Access - Established with Kavita Hardeep PREPRINT ANALYST 08/21/2024 Last Documented On 5 5:18PM ; [facility] Type 2 diabetes mellitus Open Access - Establish ed with Kavita Hardeep PREPRINT ANALYST 08/21/2024 Last Documented On 5 5:18PM ; [facility] [Body mass index [BMI] 28.0- 28.9, adult] assessment of body mass index Medical Established Patient with Kavita Hardeep PREPRINT ANALYST 08/08/2024 Last Documented On 5 4:23PM ; [facility] Type 2 diabetes mellitus Medical Established Pat ient with Kavita Hardeep PREPRINT ANALYST 08/08/2024 Last Documented On 5 4:23PM ; [facility] [Body mass index [BMI] 30.0- 30.9, adult] assessment of body mass index Medical Established Patient with Kavita Hardeep PREPRINT ANALYST 07/04/2024 Last Documented On 4 8:14AM ; [facility] Type 2 diabetes mellitus Medical Established Pat ient with Kavita Hardeep PREPRINT ANALYST 07/04/2024 Last Documented On 4 8:14AM ; [facility] [Body mass index [BMI] 28.0- 28.9, adult] assessment of body mass index Open Access - Established with Kavita Hardeep PREPRINT ANALYST 06/06/2024 Last Documented On 4 11:06AM ; [facility] Venipuncture was performed Open Access - Establi shed with Kavita Hardeep PREPRINT ANALYST 06/06/2024 Last Documented On 4 11:06AM ; [facility] Assessment of body mass inde x [Body mass index [BMI] 31.0-31.9, adult] Medical Established Patient with Kavita Hardeep PREPRINT ANALYST 06/02/2021 Last Documented On 1 5:19PM ; [facility] Type 2 diabetes mellitus Medical Established Pat ient with Kavita Hardeep PREPRINT ANALYST 06/02/2021 Last Documented On 1 5:19PM ; [facility] Assessment of body mass inde x [Body mass index [BMI] 31.0-31.9, adult] Medical Established Patient with Kavita Hardeep PREPRINT ANALYST 05/18/2021 Last Documented On 1 5:34PM ; [facility] Assessment of body mass inde x [Body mass index [BMI] 29.0-29.9, adult] Medical New Patient with Kavita Hardeep PREPRINT ANALYST 04/21/2021 Last Documented On 1 12:10PM ; [facility] Type 2 diabetes mellitus Medical New Patient wit h Kavita Hardeep PREPRINT ANALYST 04/21/2021 Last Documented On 1 12:10PM ; [facility] Work Phone: 1(591) 434-780808-18-2025 Progress note* Progress note Date Encounter Last Documented by 03/03/2025 Medical Established Patient Last documented on 03/04/2025; 3:50 PM, Kavitadima Qureshi CNP; [facility] Active Problems & Conditions - E11.65 [...] fluid Discussed importance of following up with associate dentist Patient drank 2 bottles of water in [...] Sliding scale 3 times a day before nrony455-981 3units, 201-250- 6 units, 387-604-5gcctx, 206-288-48szabt, 351-400-15 units, > 400 18 units, 30 days, 0 refills - Insulin Syringe 31G X 5/16 1 ML Miscellaneous use to inject insulin two times per day, 30 days, 3 refills - Lantus 100 UNIT/ML Subcutaneous Solution Inject subcutaneouly 50 units in the morning, and 50 units before bed every day, 90 days, 1 refills - Pen [place] 32G X 5 MM Miscellaneous 32G X 5 MM Use with insulin two times per day, 30 days, 11 refills - True Metrix Blood Glucose Test In Vitro Strip Use to monitor blood sugars three times a day, 30 days, 11 refills Past Medical/Surgical History Reported: Medical: No previous hospitalizations [facility] 04-16-21. Previous hospitalizations or recent [...] BP-Sitting R78/51 mmHg BP Cuff SizeRegular Pulse Rate-Hztfqus663 bpm Respiration Rate18 per min Temp-Oral98.4 F Jqkvsi91 in Lnpvcw683 lbs 12.8 oz Body Mass Index27.6 kg/m2 Body Surface Area1.9 m2 Oxygen Wcbohcjibd39 % O2 DeviceNone (Room Air) YlE677 % - Vitals taken 03/03/2025 12:00 pm BP-Pttivja38/52 mmHg - Vitals taken 03/03/2025 12:45 pm BP-Oobtooc79/55 mmHg - Vitals taken 03/03/2025 01:10 pm BP-Jcvkapy41/67 mmHg Vital Signs: - Systolic blood pressure [...] the next year. Bottom of Document Illustration [facility]08-13-2025 History general Narrative - Reported Includes: Medical History in patient's chart Description Last Updated Previous hospitalizations or recent ER v isits 02/26/25 03/03/2025 Last Documented On 5 3:50PM ; [facility] No previous hospitalizations [facility] 04-16-21 06/06/2024 Last Documented On 4 11:06AM ; [facility] History of diabetes mellitus 04/21/2021 Last Documented On 1 12:10PM ; [facility] Work Phone: 1(799) 767-614006-17-2025 Progress note* Progress note Date Encounter Last Documented by 12/31/2024 Medical Established Patient Last documented on 12/31/2024; 2:02 PM, Kavita Qureshi CNP; [facility] Active Problems & Conditions - E11.65 [...] Sliding scale 3 times a day before -822 3units, 201-250- 6 units, 214-506-6hpakx, 444-315-38elhug, 351-400-15 units, > 400 18 units, 30 [...] dose, 30 days, 3 refills - Pen [place] 32G X 5 MM Miscellaneous 32G X 5 MM Use with insulin two times per day, 30 days, 11 refills - True Metrix Blood Glucose Test In Vitro Strip Use to monitor blood sugars three times a day, 30 days, 11 refills Past Medical/Surgical History Reported: Medical: No previous hospitalizations [facility] 04-16-21 and no Previous hospitalizations [...] BP-Sitting R88/61 mmHg BP Cuff SizeRegular Pulse Rate-Pzvmtnn522 bpm Respiration Rate20 per min Temp-Oral98.3 F Tjeefj64 in Dcceip657 lbs Body Mass Index28.1 kg/m2 Body Surface Area1.9 m2 Oxygen Jcudvzmlcv86 % - Vitals taken 12/31/2024 12:41 pm [...] Sliding scale 3 times a day before -651 3units, 201-250- 6 units, 441-138-6xmxyh, 424-070-28pqtua, 351-400-15 units, > 400 18 units, 30 days, 0 refills Lantus 100 UNIT/ML mL Inject subcutaneouly 50 units in the morning, and 50 units before bed every day, 90 days, 1 refills EndCited Care Team - Kavita Qureshi CNP - Family User Defined 1 Not planning a in the next year. [facility]05-14-2025 Evaluation note Includes: Assessments for all patient encounters Findings Encounter Date [Body mass index [BMI] 27.0- 27.9, adult] assessment of body mass index Medical Established Patient with Kavita Qureshi CNP 11/27/2024 Last Documented On 5 6:16AM ; [facility] Assessment of pain in the th oracic spine Medical Established Patient with Kavita Qureshi CNP 11/27/2024 Last Documented On 5 6:16AM ; [facility] Postherpetic polyneuropathy Medical Esta blished Patient with Kavita Qureshi CNP 11/27/2024 Last Documented On 5 6:16AM ; [facility] Type 2 diabetes mellitus Medical Established Pat ient with Kavita Hardeep PREPRINT ANALYST 11/27/2024 Last Documented On 5 6:16AM ; [facility] [Body mass index [BMI] 27.0- 27.9, adult] assessment of body mass index Medical Established Patient with Kavita Hardeep PREPRINT ANALYST 10/24/2024 Last Documented On 5 9:04PM ; [facility] Type 2 diabetes mellitus Medical Established Pat ient with Kavita Hardeep PREPRINT ANALYST 10/24/2024 Last Documented On 5 9:04PM ; [facility] [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 Medical Established Patient with Sally Ginger PREPRINT ANALYST 09/19/2024 Last Documented On 5 1:29PM ; [facility] Assessment of body mass index Medical Es tablished Patient with Sally Ginger PREPRINT ANALYST 09/19/2024 Last Documented On 5 1:29PM ; [facility] Body mass index Medical Established Patient with Sally Ginger PREPRINT ANALYST 09/19/2024 Last Documented On 5 1:29PM ; [facility] Type 2 diabetes mellitus Medical Established Pat ient with Sally Ginger PREPRINT ANALYST 09/19/2024 Last Documented On 5 1:29PM ; [facility] Type 2 diabetes mellitus Medical Established Pat ient with Sally Ginger PREPRINT ANALYST 09/19/2024 Last Documented On 5 1:29PM ; [facility] [Body mass index [BMI] 28.0- 28.9, adult] assessment of body mass index Open Access - Established with Kavita Hardeep PREPRINT ANALYST 09/02/2024 Last Documented On 5 2:11PM ; [facility] Assessment of pain in the th oracic spine Open Access - Established with Kavita Hardeep PREPRINT ANALYST 09/02/2024 Last Documented On 5 2:11PM ; [facility] Type 2 diabetes mellitus Open Access - Establish ed with Kavita Hardeep PREPRINT ANALYST 09/02/2024 Last Documented On 5 2:11PM ; [facility] [Body mass index [BMI] 28.0- 28.9, adult] assessment of body mass index Open Access - Established with Kavita Qureshi PREPRINT ANALYST 08/21/2024 Last Documented On 5 5:18PM ; [facility] Type 2 diabetes mellitus Open Access - Establish ed with Kavita Hardeep PREPRINT ANALYST 08/21/2024 Last Documented On 5 5:18PM ; [facility] [Body mass index [BMI] 28.0- 28.9, adult] assessment of body mass index Medical Established Patient with Kavita Hardeep PREPRINT ANALYST 08/08/2024 Last Documented On 5 4:23PM ; [facility] Type 2 diabetes mellitus Medical Established Pat ient with Kavita Hardeep PREPRINT ANALYST 08/08/2024 Last Documented On 5 4:23PM ; [facility] [Body mass index [BMI] 30.0- 30.9, adult] assessment of body mass index Medical Established Patient with Kavita Hardeep PREPRINT ANALYST 07/04/2024 Last Documented On 4 8:14AM ; [facility] Type 2 diabetes mellitus Medical Established Pat ient with Kavita Hardeep PREPRINT ANALYST 07/04/2024 Last Documented On 4 8:14AM ; [facility] [Body mass index [BMI] 28.0- 28.9, adult] assessment of body mass index Open Access - Established with Kavita Qureshi PREPRINT ANALYST 06/06/2024 Last Documented On 4 11:06AM ; [facility] Venipuncture was performed Open Access - Establi shed with Kavita Hardeep PREPRINT ANALYST 06/06/2024 Last Documented On 4 11:06AM ; [facility] Assessment of body mass inde x [Body mass index [BMI] 31.0-31.9, adult] Medical Established Patient with Kavita Hardeep PREPRINT ANALYST 06/02/2021 Last Documented On 1 5:19PM ; [facility] Type 2 diabetes mellitus Medical Established Pat ient with Kavita Hardeep PREPRINT ANALYST 06/02/2021 Last Documented On 1 5:19PM ; [facility] Assessment of body mass inde x [Body mass index [BMI] 31.0-31.9, adult] Medical Established Patient with Kavita Qureshi CNP 05/18/2021 Last Documented On 1 5:34PM ; [facility] Assessment of body mass inde x [Body mass index [BMI] 29.0-29.9, adult] Medical New Patient with Kavita Qureshi PREPRINT ANALYST 04/21/2021 Last Documented On 1 12:10PM ; [facility] Type 2 diabetes mellitus Medical New Patient wit h Kavita Qureshi PREPRINT ANALYST 04/21/2021 Last Documented On 1 12:10PM ; [facility] Work Phone: 1(548) 590-289005-14-2025 Progress note* Progress note Date Encounter Last Documented by 11/27/2024 Medical Established Patient Last documented on 12/02/2024; 6:16 AM, Kavita Qureshi TONY; [facility] Active Problems & Conditions - E11.65 [...] Sliding scale 3 times a day before bukfn073-189 3units, 201-250- 6 units, 800-121-5kgpqw, 603-064-90jhfcx, 351-400-15 units, > 400 18 units, 30 [...] dose, 30 days, 3 refills - Pen [place] 32G X 5 MM Miscellaneous 32G X 5 MM Use with insulin two times per day, 30 days, 11 refills - True Metrix Blood Glucose Test In Vitro Strip Use to monitor blood sugars three times a day, 30 days, 11 refills Past Medical/Surgical History Reported: Medical: No previous hospitalizations [facility] 04-16-21 and no Previous hospitalizations [...] BP-Sitting R108/73 mmHg BP Cuff SizeRegular Pulse Rate-Zrsrnjl830 bpm Romyts08 in Chjjuz597 lbs Body Mass Index27.8 kg/m2 Body Surface Area1.9 m2 Oxygen Aabmtsixwq77 % - Vitals taken 11/27/2024 10:55 am BP-Lixgyne477/69 mmHg Vital Signs: - Systolic blood pressure [...] and <= 9.0%. Care Team - Kavita Qureshi, TONY - Family User Defined 1 Not planning a in the next year. [facility]04-10-2025 Evaluation note Includes: Assessments for all patient encounters Findings Encounter Date [Body mass index [BMI] 27.0- 27.9, adult] assessment of body mass index Medical Established Patient with Kavita Qureshi PREPRINT ANALYST 10/24/2024 Last Documented On 5 9:04PM ; [facility] Type 2 diabetes mellitus Medical Established Pat ient with Kavita Qureshi CNP 10/24/2024 Last Documented On 5 9:04PM ; [facility] [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 Medical Established Patient with Sally Miles CNP 09/19/2024 Last Documented On 5 1:29PM ; [facility] Assessment of body mass index Medical Es tablished Patient with Sally Miles PREPRINT ANALYST 09/19/2024 Last Documented On 5 1:29PM ; [facility] Body mass index Medical Established Patient with Sally Miles CNP 09/19/2024 Last Documented On 5 1:29PM ; [facility] Type 2 diabetes mellitus Medical Established Pat ient with Sally Miles CNP 09/19/2024 Last Documented On 5 1:29PM ; [facility] Type 2 diabetes mellitus Medical Established Pat ient with Sally Miles PREPRINT ANALYST 09/19/2024 Last Documented On 5 1:29PM ; [facility] [Body mass index [BMI] 28.0- 28.9, adult] assessment of body mass index Open Access - Established with Kavita Hardeep PREPRINT ANALYST 09/02/2024 Last Documented On 5 2:11PM ; [facility] Assessment of pain in the th oracic spine Open Access - Established with Kavita Hardeep PREPRINT ANALYST 09/02/2024 Last Documented On 5 2:11PM ; [facility] Type 2 diabetes mellitus Open Access - Establish ed with Kavita Hardeep PREPRINT ANALYST 09/02/2024 Last Documented On 5 2:11PM ; [facility] [Body mass index [BMI] 28.0- 28.9, adult] assessment of body mass index Open Access - Established with Kavita Hardeep PREPRINT ANALYST 08/21/2024 Last Documented On 5 5:18PM ; [facility] Type 2 diabetes mellitus Open Access - Establish ed with Kavita Hardeep PREPRINT ANALYST 08/21/2024 Last Documented On 5 5:18PM ; [facility] [Body mass index [BMI] 28.0- 28.9, adult] assessment of body mass index Medical Established Patient with Kavita Hardeep PREPRINT ANALYST 08/08/2024 Last Documented On 5 4:23PM ; [facility] Type 2 diabetes mellitus Medical Established Pat ient with Kavita Hardeep PREPRINT ANALYST 08/08/2024 Last Documented On 5 4:23PM ; [facility] [Body mass index [BMI] 30.0- 30.9, adult] assessment of body mass index Medical Established Patient with Kavita Hardeep PREPRINT ANALYST 07/04/2024 Last Documented On 4 8:14AM ; [facility] Type 2 diabetes mellitus Medical Established Pat ient with Kavita Hardeep PREPRINT ANALYST 07/04/2024 Last Documented On 4 8:14AM ; [facility] [Body mass index [BMI] 28.0- 28.9, adult] assessment of body mass index Open Access - Established with Kavita Hardeep PREPRINT ANALYST 06/06/2024 Last Documented On 4 11:06AM ; [facility] Venipuncture was performed Open Access - Establi shed with Kavita Bryanter PREPRINT ANALYST 06/06/2024 Last Documented On 4 11:06AM ; [facility] Assessment of body mass inde x [Body mass index [BMI] 31.0-31.9, adult] Medical Established Patient with Kavita Hardeep PREPRINT ANALYST 06/02/2021 Last Documented On 1 5:19PM ; [facility] Type 2 diabetes mellitus Medical Established Pat ient with Kavita Hardeep PREPRINT ANALYST 06/02/2021 Last Documented On 1 5:19PM ; [facility] Assessment of body mass inde x [Body mass index [BMI] 31.0-31.9, adult] Medical Established Patient with Kavita Hardeep PREPRINT ANALYST 05/18/2021 Last Documented On 1 5:34PM ; [facility] Assessment of body mass inde x [Body mass index [BMI] 29.0-29.9, adult] Medical New Patient with Kavita Hardeep PREPRINT ANALYST 04/21/2021 Last Documented On 1 12:10PM ; [facility] Type 2 diabetes mellitus Medical New Patient wit h Kavita Hardeep PREPRINT ANALYST 04/21/2021 Last Documented On 1 12:10PM ; [facility] Work Phone: [phone]) 813-942304-10-2025 History general Narrative - Reported Includes: Medical History in patient's chart Description Last Updated No Previous hospitalizations or recent E R visits 10/24/2024 Last Documented On 5 9:04PM ; [facility] No previous hospitalizations Deane Padmini pital 04-16-21 06/06/2024 Last Documented On 4 11:06AM ; [facility] History of diabetes mellitus 04/21/2021 Last Documented On 1 12:10PM ; [facility] Work Phone: [phone]) 410-533204-10-2025 History general Narrative - Reported Includes: Medical History in patient's chart Description Last Updated No Previous hospitalizations or recent E R visits 10/24/2024 Last Documented On 5 9:04PM ; [facility] No previous hospitalizations Gordon boo 04-16-21 06/06/2024 Last Documented On 4 11:06AM ; [facility] History of diabetes mellitus 04/21/2021 Last Documented On 1 12:10PM ; [facility] Work Phone: 1(733) 587-766804-10-2025 Progress note* Progress note Date Encounter Last Documented by 10/24/2024 Medical Established Patient Last documented on 10/26/2024; 9:04 PM, Kavita Qureshi PREPRINT ANALYST; [facility] Active Problems & Conditions - E11.65 [...] most of the day it is a and she is unable to eat because [...] Sliding scale 3 times a day before glboh469-714 3units, 201-250- 6 units, 580-739-8jtgoa, 717-411-19bjjoe, 351-400-15 units, > 400 18 units, 30 days, 0 refills - Insulin Syringe 31G X 5/16 1 ML Miscellaneous use to inject insulin two times per day, 30 days, 3 refills - Lantus 100 UNIT/ML Subcutaneous Solution Inject subcutaneouly 50 units in the morning, and 50 units before bed every day, 30 days, 5 refills - Pen [place] 32G X 5 MM Miscellaneous 32G X 5 MM Use with insulin two times per day, 30 days, 11 refills - True Metrix Blood Glucose Test In Vitro Strip Use to monitor blood sugars three times a day, 30 days, 11 refills Past Medical/Surgical History Reported: Medical: No previous hospitalizations [facility] 04-16-21 and no Previous hospitalizations [...] BP-Sitting L123/72 mmHg BP Cuff SizeRegular Pulse Rate-Jrwgdsb022 bpm Igdgge82 in Onxehf895 lbs 12.8 oz Body Mass Index27.7 kg/m2 Body Surface Area1.9 m2 Oxygen Jidnfojgpy69 % - Vitals taken 10/24/2024 03:03 pm BP-Fzusdgy012/68 mmHg Vital Signs: - Systolic blood pressure [...] Kavita Qureshi CNP - [facility]03-31-2025 History of Present illness Narrative* Fabiana Reynolds, PT - 10/14/2024 10:30 AM EDT Images from the original note were not included. [facility] Out[facility] Physical Therapy Daily Note Date: 10/14/2024 Patient Name: Casandra Gonzalez : 1970 (54 y.o.) Referring Provider (secondary): Dr. Shepherd ([place]) Diagnosis: Muscle Weakness Treatment Diagnosis: Back pain, Weakness PT Insurance Information: [facility] Total # of Visits Approved: 10 Per Physician Order Total # of Visits to Date: 10 No Show: 1 Canceled Appointment: 0 Plan of Care/Certification Expiration Date: 10/18/24 Pre-Treatment Pain: 310 Assessment Assessment: Per patient, the pain is 3/10, saw chiropractor which has decreased pain. Completed therex and manual therapy per Doc flow. Strength B shld horizontal abd 4+/5.T andom stance balance 10 sec 2 of 3 trials. LEFS score 57/80. Discharge. Plan Discharge Exercises/Modalities/Manual: See DocFlow Sheet Education: On continuation of HEP Access Code: [email or web address] URL: [email or web address] Date: 10/14/2024 Prepared by: Fabiana Reynolds Exercises [...] with HEP for ROM and glut strengthening.-Met Skilled Nursing Goals Time Frame for Skilled Nursing Goals : 10 visits Bobbin Winder Goal 1: Pt to improve LEFS from 38/80 to >48/80 to improve pt ADL carlos.- [facility] Skilled Nursing Goal 2: Pt to have 4/5 horiz ABD strength to improve posture and reduce LBP.-MET Bobbin Winder Goal 3: Pt to maintain tandum stance 10sec 2:3 B/L to improve amb and stair safety.-Met Skilled Nursing Goal 4: Pt to report worst pain in back 3/10 x 4 consecutive days to improve work carlos-NotMet Bobbin Winder Goal 5: Pt to complete 20# crate lift floor to waist x10 with proper mechanics and no increased pain.-Met Treatment Tolerance: Treatment Tolerance: Tolerated treatment well. Post Treatment Pain: 2/10 Time In: 10:36 Time Out : 11:11 Timed Code Treatment Minutes: 30 Minutes Total Treatment Time: 35 Minutes Fabiana Reynolds, PT Date: 10/14/2024 documented in this encounterBon [facility]03[facility] Hospital course Narrative* Fabiana Reynolds, PT - 10/14/2024 10:30 AM EDT Images from the original note were not included. [facility] Out[facility] Physical Therapy Discharge Summary Patient: Casandra Gonzalez : 1970 Referring Provider (secondary): Dr. Shepherd ([place]) Diagnosis: Muscle Weakness Date Treatment Initiated: 06/27/24 Date of Last Treatment: 10/14/24 PT Visit Information PT Insurance Information: [facility] Total # of Visits Approved: 10 Total [...] with HEP for ROM and glut strengthening.-[facility] Skilled Nursing Goals Time Frame for Skilled Nursing Goals : 10 visits Skilled Nursing Goal 1: Pt to improve LEFS from 38/80 to >48/80 to improve pt ADL carlos.- Met Bobbin Winder Goal 2: Pt to have 4/5 horiz ABD strength to improve posture and reduce LBP.-MET Skilled Nursing Goal 3: Pt to maintain tandum stance 10sec 2:3 B/L to improve amb and stair safety.-Met Bobbin Winder Goal 4: Pt to report worst pain in back 3/10 x 4 consecutive days to improve work carlos-NotMet Bobbin Winder Goal 5: Pt to complete 20# crate lift floor to waist x10 with proper mechanics and no increased pain.-Met Reason for Discharge Completion of Prescribed visits and Optimal Function Achieved Comments: Thank you for this referral Fabiana Reynolds, PT Date: 10/14/2024 documented in this encounterBon [facility]03-28[facility] History of Present illness Narrative* Darren Lazo, MAKENZIE - 10/11/2024 10:30 AM EDT Images from the original note were not included. [facility] Out[facility] Physical Therapy Daily Note Date: 10/11/2024 Patient Name: Casandra Gonzalez : 1970 (54 y.o.) Referring Provider (secondary): Dr. Shepherd ([place]) Diagnosis: Muscle Weakness Treatment Diagnosis: Back pain, Weakness PT Insurance Information: [facility] Total # of Visits Approved: 10 [...] with HEP for ROM and glut strengthening.-Met Bobbin Winder Goals Time Frame for Bobbin Winder Goals : 10 visits Bobbin Winder Goal 1: Pt to improve LEFS from 38/80 to >48/80 to improve pt ADL carlos. Bobbin Winder Goal 2: Pt to have 4/5 horiz ABD strength to improve posture and reduce LBP.-MET Skilled Nursing Goal 3: Pt to maintain tandum stance 10sec 2:3 B/L to improve amb and stair safety.-Met Bobbin Winder Goal 4: Pt to report worst pain in back 09/23 x 4 consecutive days to improve work carlos Skilled Nursing Goal 5: Pt to complete 20# crate [...] 12:11 PM EDT documented in this encounterBon [facility]03-25-[facility] History of Present illness Narrative* Fabiana Reynolds, PT - 10/08/2024 9:45 AM EDT Images from the original note were not included. [facility] Out[facility] Physical Therapy Daily Note Date: 10/08/2024 Patient Name: Casandra Gonzalez : 1970 (54 y.o.) Referring Provider (secondary): Dr. Shepherd ([place]) Diagnosis: Muscle Weakness Treatment Diagnosis: Back pain, Weakness PT Insurance Information: [facility] Total # of Visits Approved: 10 [...] with HEP for ROM and glut strengthening.-Met Bobbin Winder Goals Time Frame for Skilled Nursing Goals : 10 visits Bobbin Winder Goal 1: Pt to improve LEFS from 38/80 to >48/80 to improve pt ADL carlos. Skilled Nursing Goal 2: Pt to have 4/5 horiz ABD strength to improve posture and reduce LBP.-MET Skilled Nursing Goal 3: Pt to maintain tandum stance 10sec 2:3 B/L to improve amb and stair safety.-Met Bobbin Winder Goal 4: Pt to report worst pain in back 3/10 x 4 consecutive days to improve work carlos Bobbin Winder Goal 5: Pt to complete 20# crate lift floor to waist x10 with proper mechanics and no increased pain. Treatment Tolerance: Treatment Tolerance: Tolerated treatment well. Post Treatment Pain: 5/10 Time In: 9:50 Time Out : 10:35 Timed Code Treatment Minutes: 45 Minutes Total Treatment Time: 45 Minutes Fabiana Reynolds, PT Date: 10/08/2024 documented in this encounterBon [facility]03-06-2025 Progress note* Progress note Date Encounter Last Documented by 09/19/2024 Medical Established Patient Last documented on 09/19/2024; 1:29 PM, Sally Miles CNP; [facility] Active Problems & Conditions - E11.65 [...] reviewed Presents normally seen by kavita qureshi respiratory therapy assistant requesting [place] for pain , reports developed symptoms of postherpetic neuralgia in june after having shingles in January . 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 and I am sending in [...] Sliding scale 3 times a day before engfr477-583 3units, 201-250- 6 units, 024-432-1dgyki, 534-203-05qssjc, 351-400-15 units, > 400 18 units, 30 days, 0 refills - Insulin Syringe 31G X 5/16 1 ML Miscellaneous use to inject insulin two times per day, 30 days, 3 refills - Lantus 100 UNIT/ML Subcutaneous Solution Inject subcutaneouly 50 units in the morning, and 50 units before bed every day, 30 days, 5 refills - Pen [place] 32G X 5 MM Miscellaneous 32G X 5 MM Use with insulin two times per day, 30 days, 11 refills - True Metrix Blood Glucose Test In Vitro Strip Use to monitor blood sugars three times a day, 30 days, 11 refills Past Medical/Surgical History Reported: Medical: No previous hospitalizations [facility] 04-16-21 and no Previous hospitalizations [...] BP-Sitting L131/63 mmHg BP Cuff SizeRegular Pulse Rate-Dddmkpb550 bpm Respiration Rate18 per min Temp-Oral98.4 F Blgvmp56 in Mpxveo809 lbs 12.8 oz Body Mass Index28.9 kg/m2 Body Surface Area1.9 m2 Oxygen Qgcaqyymwx63 % - Vitals taken 09/19/2024 09:36 am [...] Plan StartCited- Other Follow-up Appointment 2 weeks [facility] follow up EndCited StartCited- Postherpetic polyneuropathy Amitriptyline [...] a in the next year. [facility]02-19-2025 History of Present illness Narrative* Nelly [...] that answer is fine. documented in this encounterBon [facility]02-18-[facility]25 History of Present illness Narrative* Shock, Bette S - 09/03/2024 2:15 PM EST Physical Therapy [facility] Date: 09/03/2024 Patient Name: Casandra Gonzalez : 1970 Patient called and said it was too cold and the weather was too bad to come out. Bette S Shock Date: 09/03/2024 documented in this encounterBon [facility]02-17-2025 Evaluation note Includes: Assessments for all patient encounters Findings Encounter Date [Body mass index [BMI] 28.0- 28.9, adult] assessment of body mass index Open Access - Established with Kavita Hardeep PREPRINT ANALYST 09/02/2024 Last Documented On 5 2:11PM ; [facility] Assessment of pain in the th oracic spine Open Access - Established with Kavita Hardeep PREPRINT ANALYST 09/02/2024 Last Documented On 5 2:11PM ; [facility] Type 2 diabetes mellitus Open Access - Establish ed with Kavita Hardeep PREPRINT ANALYST 09/02/2024 Last Documented On 5 2:11PM ; [facility] [Body mass index [BMI] 28.0- 28.9, adult] assessment of body mass index Open Access - Established with Kavita Hardeep PREPRINT ANALYST 08/21/2024 Last Documented On 5 5:18PM ; [facility] Type 2 diabetes mellitus Open Access - Establish ed with Kavita Hardeep PREPRINT ANALYST 08/21/2024 Last Documented On 5 5:18PM ; [facility] [Body mass index [BMI] 28.0- 28.9, adult] assessment of body mass index Medical Established Patient with Kavita Hardeep PREPRINT ANALYST 08/08/2024 Last Documented On 5 4:23PM ; [facility] Type 2 diabetes mellitus Medical Established Pat ient with Kavita Hardeep PREPRINT ANALYST 08/08/2024 Last Documented On 5 4:23PM ; [facility] [Body mass index [BMI] 30.0- 30.9, adult] assessment of body mass index Medical Established Patient with Kavita Hardeep PREPRINT ANALYST 07/04/2024 Last Documented On 4 8:14AM ; [facility] Type 2 diabetes mellitus Medical Established Pat ient with Kavita Hardeep PREPRINT ANALYST 07/04/2024 Last Documented On 4 8:14AM ; [facility] [Body mass index [BMI] 28.0- 28.9, adult] assessment of body mass index Open Access - Established with Kavita Hardeep PREPRINT ANALYST 06/06/2024 Last Documented On 4 11:06AM ; [facility] Venipuncture was performed Open Access - Establi shed with Kavita Hardeep PREPRINT ANALYST 06/06/2024 Last Documented On 4 11:06AM ; [facility] Assessment of body mass inde x [Body mass index [BMI] 31.0-31.9, adult] Medical Established Patient with Kavita Hardeep PREPRINT ANALYST 06/02/2021 Last Documented On 1 5:19PM ; [facility] Type 2 diabetes mellitus Medical Established Pat ient with Kavita Hardeep PREPRINT ANALYST 06/02/2021 Last Documented On 1 5:19PM ; [facility] Assessment of body mass inde x [Body mass index [BMI] 31.0-31.9, adult] Medical Established Patient with Kavita Hardeep PREPRINT ANALYST 05/18/2021 Last Documented On 1 5:34PM ; [facility] Assessment of body mass inde x [Body mass index [BMI] 29.0-29.9, adult] Medical New Patient with Kavita Hardeep PREPRINT ANALYST 04/21/2021 Last Documented On 1 12:10PM ; [facility] Type 2 diabetes mellitus Medical New Patient wit h Kavita Hardeep PREPRINT ANALYST 04/21/2021 Last Documented On 1 12:10PM ; [facility] Work Phone: 1([phone]) 748-421602-17-2025 History general Narrative - Reported Includes: Medical History in patient's chart Description Last Updated No Previous hospitalizations or recent E R visits 09/02/2024 Last Documented On 5 2:11PM ; [facility] No previous hospitalizations [facility] 04-16-21 06/06/2024 Last Documented On 4 11:06AM ; [facility] History of diabetes mellitus 04/21/2021 Last Documented On 1 12:10PM ; [facility] Work Phone: 1(855) 431-559602-17-2025 History of Present illness Narrative* Samira Gonzalez - 09/02/2024 2:00 PM EST [facility] Date: 09/02/2024 Patient Name: Casandra Gonzalez : 1970 Pt Cancelled Appt due to left voice mail with no reason for cancel Samira Gonzalez Date: 09/02/2024 documented in this encounterBon [facility]02-17-2025 Progress note* Progress note Date Encounter Last Documented by 09/02/2024 Open Access - Established Last d ocumented on 09/02/2024; 2:11 PM, Kavita Qureshi PREPRINT ANALYST; [facility] Active Problems & Conditions - E11.65 [...] EKG and importance of following up with associate dentist Current Medication - *CPAP SUPPLIES Miscellaneous Use [...] Sliding scale 3 times a day before clwto304-475 3units, 201-250- 6 units, 178-631-1rbbpy, 737-956-20alhos, 351-400-15 units, > 400 18 units, 30 days, 0 refills - Insulin Syringe 31G X 5/16 1 ML Miscellaneous use to inject insulin two times per day, 30 days, 3 refills - Lantus 100 UNIT/ML Subcutaneous Solution Inject subcutaneouly 50 units in the morning, and 50 units before bed every day, 30 days, 5 refills - Pen [place] 32G X 5 MM Miscellaneous 32G X 5 MM Use with insulin two times per day, 30 days, 11 refills - True Metrix Blood Glucose Test In Vitro Strip Use to monitor blood sugars three times a day, 30 days, 11 refills Past Medical/Surgical History Reported: Medical: No previous hospitalizations [facility] 04-16-21 and no Previous hospitalizations [...] BP-Sitting R104/73 mmHg BP Cuff SizeRegular Pulse Rate-Vyknogm899 bpm Temp-Oral97.9 F Qpkqyw06 in Wiphxu531 lbs Body Mass Index28.4 kg/m2 Body Surface Area1.9 m2 Oxygen Eanuwhysbm87 % - Vitals taken 09/02/2024 12:21 pm BP-Rewtndm32/62 mmHg - Vitals taken 09/02/2024 12:24 pm BP-Isjwikc62/60 mmHg - Vitals taken 09/02/2024 01:06 pm BP-Jypxmvi93/68 mmHg Pulse Rate-Seroprl718 bpm Vital Signs: - Systolic blood pressure [...] Sliding scale 3 times a day before viwmf796-384 3units, 201-250- 6 units, 028-035-2pqcka, 265-779-26aripk, 351-400-15 units, > 400 18 units, 30 days, 0 refills [facility] [id number] History of Present illness Narrative* Shock, Bette S - 08/22/2024 1:45 PM EST Physical Therapy [facility] Date: 08/22/2024 Patient Name: Casandra Gonzalez : 1970 Patient is not feeling well and will not be able to make this appointment.She will return on the next appt. Bette Galvan Shock Date: 08/22/2024 documented in this encounterBon [facility] Hospital Discharge instructions* Discharge Instructions* Ame Saldana DO - 08/21/2024 9:22 PM EST Make sure to drink at least 80 to 90 ounces of water every day. Do not take the gabapentin and Flexeril together. Close follow-up with your family doctor next week. Return to the emergency departmentif symptoms get worse. Return your threat monitoring analyst next week. * Attachments The following attachments cannot be sent through Care Everywhere. * Dizziness (Cameroonian) [facility] Evaluation note Includes: Assessments for all patient encounters Findings Encounter Date [Body mass index [BMI] 28.0- 28.9, adult] assessment of body mass index Open Access - Established with Kavita Qureshi CNP 08/21/2024 Last Documented On 4:06PM ; [facility] Type 2 diabetes mellitus Open Access - Establish ed with Kavita Qureshi CNP 08/21/2024 Last Documented On 4:06PM ; [facility] [Body mass index [BMI] 28.0- 28.9, adult] assessment of body mass index Medical Established Patient with Kavita Qureshi CNP 08/08/2024 Last Documented On 4:23PM ; [facility] Type 2 diabetes mellitus Medical Established Pat ient with Kavita Qureshi CNP 08/08/2024 Last Documented On 5 4:23PM ; [facility] [Body mass index [BMI] 30.0- 30.9, adult] assessment of body mass index Medical Established Patient with Kavita Hardeep PREPRINT ANALYST 07/04/2024 Last Documented On 4 8:14AM ; [facility] Type 2 diabetes mellitus Medical Established Pat ient with Kavita Hardeep PREPRINT ANALYST 07/04/2024 Last Documented On 4 8:14AM ; [facility] [Body mass index [BMI] 28.0- 28.9, adult] assessment of body mass index Open Access - Established with Kavita Hardeep PREPRINT ANALYST 06/06/2024 Last Documented On 4 11:06AM ; [facility] Venipuncture was performed Open Access - Establi shed with Kavita Hardeep PREPRINT ANALYST 06/06/2024 Last Documented On 4 11:06AM ; [facility] Assessment of body mass inde x [Body mass index [BMI] 31.0-31.9, adult] Medical Established Patient with Kavita Hardeep PREPRINT ANALYST 06/02/2021 Last Documented On 1 5:19PM ; [facility] Type 2 diabetes mellitus Medical Established Pat ient with Kavita Hardeep PREPRINT ANALYST 06/02/2021 Last Documented On 1 5:19PM ; [facility] Assessment of body mass inde x [Body mass index [BMI] 31.0-31.9, adult] Medical Established Patient with Kavita Hardeep PREPRINT ANALYST 05/18/2021 Last Documented On 1 5:34PM ; [facility] Assessment of body mass inde x [Body mass index [BMI] 29.0-29.9, adult] Medical New Patient with Kavita Hardeep PREPRINT ANALYST 04/21/2021 Last Documented On 1 12:10PM ; [facility] Type 2 diabetes mellitus Medical New Patient wit h Kavita Hardeep PREPRINT ANALYST 04/21/2021 Last Documented On 1 12:10PM ; [facility] Work Phone: 1(253) 260-411102-05-2025 Evaluation note Includes: Assessments for all patient encounters Findings Encounter Date [Body mass index [BMI] 28.0- 28.9, adult] assessment of body mass index Open Access - Established with Kavita Hardeep PREPRINT ANALYST 08/21/2024 Last Documented On 5 4:06PM ; [facility] Type 2 diabetes mellitus Open Access - Establish ed with Kavita Hardeep PREPRINT ANALYST 08/21/2024 Last Documented On 5 4:06PM ; [facility] [Body mass index [BMI] 28.0- 28.9, adult] assessment of body mass index Medical Established Patient with Kavita Hardeep PREPRINT ANALYST 08/08/2024 Last Documented On 5 4:22PM ; [facility] Type 2 diabetes mellitus Medical Established Pat ient with Kavita Hardeep PREPRINT ANALYST 08/08/2024 Last Documented On 5 4:22PM ; [facility] [Body mass index [BMI] 30.0- 30.9, adult] assessment of body mass index Medical Established Patient with Kavita Hardeep PREPRINT ANALYST 07/04/2024 Last Documented On 4 8:14AM ; [facility] Type 2 diabetes mellitus Medical Established Pat ient with Kavita Hardeep PREPRINT ANALYST 07/04/2024 Last Documented On 4 8:14AM ; [facility] [Body mass index [BMI] 28.0- 28.9, adult] assessment of body mass index Open Access - Established with Kavita Hardeep PREPRINT ANALYST 06/06/2024 Last Documented On 4 11:06AM ; [facility] Venipuncture was performed Open Access - Establi shed with Kavita Hardeep PREPRINT ANALYST 06/06/2024 Last Documented On 4 11:06AM ; [facility] Assessment of body mass inde x [Body mass index [BMI] 31.0-31.9, adult] Medical Established Patient with Kavita Hardeep PREPRINT ANALYST 06/02/2021 Last Documented On 1 5:19PM ; [facility] Type 2 diabetes mellitus Medical Established Pat ient with Kavita Hardeep PREPRINT ANALYST 06/02/2021 Last Documented On 1 5:19PM ; [facility] Assessment of body mass inde x [Body mass index [BMI] 31.0-31.9, adult] Medical Established Patient with Kavita Hardeep PREPRINT ANALYST 05/18/2021 Last Documented On 1 5:34PM ; [facility] Assessment of body mass inde x [Body mass index [BMI] 29.0-29.9, adult] Medical New Patient with Kavita Hardeep PREPRINT ANALYST 04/21/2021 Last Documented On 1 12:10PM ; [facility] Type 2 diabetes mellitus Medical New Patient wit h Kavita Hardeep PREPRINT ANALYST 04/21/2021 Last Documented On 1 12:10PM ; [facility] Work Phone: 1(855) 297-687002-05-2025 Evaluation note Includes: Assessments for all patient encounters Findings Encounter Date [Body mass index [BMI] 28.0- 28.9, adult] assessment of body mass index Open Access - Established with Kavita Hardeep PREPRINT ANALYST 08/21/2024 Last Documented On 5 5:18PM ; [facility] Type 2 diabetes mellitus Open Access - Establish ed with Kavita Hardeep PREPRINT ANALYST 08/21/2024 Last Documented On 5 5:18PM ; [facility] [Body mass index [BMI] 28.0- 28.9, adult] assessment of body mass index Medical Established Patient with Kavita Hardeep PREPRINT ANALYST 08/08/2024 Last Documented On 5 4:23PM ; [facility] Type 2 diabetes mellitus Medical Established Pat ient with Kavita Hardeep PREPRINT ANALYST 08/08/2024 Last Documented On 5 4:23PM ; [facility] [Body mass index [BMI] 30.0- 30.9, adult] assessment of body mass index Medical Established Patient with Kavita Hardeep PREPRINT ANALYST 07/04/2024 Last Documented On 4 8:14AM ; [facility] Type 2 diabetes mellitus Medical Established Pat ient with Kavita Hardeep PREPRINT ANALYST 07/04/2024 Last Documented On 4 8:14AM ; [facility] [Body mass index [BMI] 28.0- 28.9, adult] assessment of body mass index Open Access - Established with Kavita Hardeep PREPRINT ANALYST 06/06/2024 Last Documented On 4 11:06AM ; [facility] Venipuncture was performed Open Access - Establi shed with Kavita Hardeep PREPRINT ANALYST 06/06/2024 Last Documented On 4 11:06AM ; [facility] Assessment of body mass inde x [Body mass index [BMI] 31.0-31.9, adult] Medical Established Patient with Kavita Hardeep PREPRINT ANALYST 06/02/2021 Last Documented On 1 5:19PM ; [facility] Type 2 diabetes mellitus Medical Established Pat ient with Kavita Hardeep PREPRINT ANALYST 06/02/2021 Last Documented On 1 5:19PM ; [facility] Assessment of body mass inde x [Body mass index [BMI] 31.0-31.9, adult] Medical Established Patient with Kavita Hardeep PREPRINT ANALYST 05/18/2021 Last Documented On 1 5:34PM ; [facility] Assessment of body mass inde x [Body mass index [BMI] 29.0-29.9, adult] Medical New Patient with Kavita Hardeep PREPRINT ANALYST 04/21/2021 Last Documented On 1 12:10PM ; [facility] Type 2 diabetes mellitus Medical New Patient wit h Kavita Hardeep PREPRINT ANALYST 04/21/2021 Last Documented On 1 12:10PM ; [facility] Work Phone: 1(395) 623-380002-05-2025 Progress note* Progress note Date Encounter Last Documented by 08/21/2024 Open Access - Established Last d ocumented on 08/30/2024; 5:18 PM, Kavita Hardeep JIMENEZ; [facility] Active Problems & Conditions - E11.65 [...] Patient presents for follow up States that ER sail that thought it was more muscular/nerve pain [...] her car Report call at 1645 to [facility] . Current Medication - *CPAP SUPPLIES [...] Sliding scale 3 times a day before imppy015-060 3units, 201-250- 6 units, 342-739-5lmbgf, 145-501-45xylro, 351-400-15 units, > 400 18 units, 30 [...] day, 30 days, 5 refills - Pen [place] 32G X 5 MM Miscellaneous 32G X 5 MM Use with insulin two times per day, 30 days, 11 refills - predniSONE 20 MG Oral Tablet 5 days, 0 refills - True Metrix Blood Glucose Test In Vitro Strip Use to monitor blood sugars three times a day, 30 days, 11 refills Past Medical/Surgical History Reported: Medical: No previous hospitalizations [facility] 04-16-21. Diagnoses: Diabetes mellitus Social [...] BP-Sitting R80/60 mmHg BP Cuff SizeRegular Pulse Rate-Mgkjnhk684 bpm Temp-Oral97.7 F Uamtac89 in Pnfdab472 lbs Body Mass Index28.7 kg/m2 Body Surface Area1.9 m2 Oxygen Grsuwksphw45 % - Vitals taken 08/21/2024 03:17 pm BP-Anxejoz59/49 mmHg - Vitals taken 08/21/2024 04:02 pm BP-Yflkmay81/64 mmHg - Vitals taken 08/21/2024 04:41 pm [...] day, 14 days, 0 [facility] [id number] History of Present illness Narrative* Arthur, Bette Galvan - 08/20/2024 3:45 PM EST Physical Therapy [facility] Date: 08/20/2024 Patient Name: Casandra Gonzalez : 1970 Patient called she is not feeling well. Will try and make . Bette Galvan Shock Date: 08/20/2024 documented in this encounterBon [facility] Progress note* Progress note Date Encounter Last Documented by 08/19/2024 [Patient Encounter] Last shorty lam on 08/19/2024; 10:23 AM, Kavita Qureshi PREPRINT ANALYST; [facility] Active Problems & Conditions - E11.65 [...] Sliding scale 3 times a day before pogia690-771 3units, 201-250- 6 units, 585-859-3ocrof, 423-627-40bhrpg, 351-400-15 units, > 400 18 units, 30 [...] day, 30 days, 5 refills - Pen [place] 32G X 5 MM Miscellaneous 32G X 5 MM Use with insulin two times per day, 30 days, 11 refills - predniSONE 20 MG Oral Tablet 5 days, 0 refills - True Metrix Blood Glucose Test In Vitro Strip Use to monitor blood sugars three times a day, 30 days, 11 refills Past Medical/Surgical History Reported: Medical: No previous hospitalizations [facility] 04-16-21. Diagnoses: Diabetes mellitus Allergies - NO KNOWN ENVIRONMENTAL ALLERGIES - NO KNOWN FOOD ALLERGIES - Penicillins Reaction: Hives / Urticaria - Statins Reaction: Hives / Urticaria Family History Paternal: Type 2 diabetes mellitus Maternal: Type 2 diabetes mellitus Plan StartCited- Generalized abdominal pain Outside Diagn Tests/Ultrasound: US Retroperitoneal Compl. (Renal/Bladder) (04452) [facility] Discharge instructions* Discharge Instructions* Lukas Lopez MD - 08/17/2024 10:46 AM EST Please continue taking medications that you have at home as directed. * Attachments The following attachments cannot be sent through Care Everywhere. * Thoracic Strain (Cameroonian) documented in this encounterBon [facility] History of Present illness Narrative* Fabiana Reynolds, PT - 08/13/2024 3:30 PM EST Images from the original note were not included. [facility] Daily Note Date: 08/13/2024 Patient Name: Casandra Gonzalez : 1970 (54 y.o.) Referring Provider (secondary): Dr. Shepherd ([place]) Diagnosis: Muscle Weakness Treatment Diagnosis: Back pain, Weakness PT Insurance Information: [facility] Total # of Visits Approved: 10 Per Physician Order Total # of Visits to Date: 6 No Show: 1 Canceled Appointment: 0 Pre-Treatment Pain: 12/24 Assessment Assessment: Pain 6/10 in mid back, [...] with HEP for ROM and glut strengthening.-Met Skilled Nursing Goals Time Frame for Skilled Nursing Goals : 10 visits Bobbin Winder Goal 1: Pt to improve LEFS from 38/80 to >48/80 to improve pt ADL carlos. Bobbin Winder Goal 2: Pt to have 4/5 horiz ABD strength to improve posture and reduce LBP.-MET Bobbin Winder Goal 3: Pt to maintain tandum stance 10sec 2:3 B/L to improve amb and stair safety.-Met Bobbin Winder Goal 4: Pt to report worst pain in back 3/10 x 4 consecutive days to improve work carlos Bobbin Winder Goal 5: Pt to complete 20# crate lift floor to waist x10 with proper mechanics and no increased pain. Treatment Tolerance: Treatment Tolerance: Tolerated treatment well. Post Treatment Pain: 610 Time In: 15:20 Time Out : 16:00 Timed Code Treatment Minutes: 40 Minutes Total Treatment Time: 40 Minutes Fabiana Reynolds, PT Date: 08/13/2024 documented in this encounterBon [facility] Evaluation note Includes: Assessments for all patient encounters Findings Encounter Date [Body mass index [BMI] 28.0- 28.9, adult] assessment of body mass index Medical Established Patient with Kavita Hardeep PREPRINT ANALYST 08/08/2024 Last Documented On 5 9:31AM ; [facility] Type 2 diabetes mellitus Medical Established Pat ient with Kavita Hardeep PREPRINT ANALYST 08/08/2024 Last Documented On 5 9:31AM ; [facility] [Body mass index [BMI] 30.0- 30.9, adult] assessment of body mass index Medical Established Patient with Kavita Hardeep PREPRINT ANALYST 07/04/2024 Last Documented On 4 8:14AM ; [facility] Type 2 diabetes mellitus Medical Established Pat ient with Kavita Hardeep PREPRINT ANALYST 07/04/2024 Last Documented On 4 8:14AM ; [facility] [Body mass index [BMI] 28.0- 28.9, adult] assessment of body mass index Open Access - Established with Kavita Hardeep PREPRINT ANALYST 06/06/2024 Last Documented On 4 11:06AM ; [facility] Venipuncture was performed Open Access - Establi shed with Kavita Hardeep PREPRINT ANALYST 06/06/2024 Last Documented On 4 11:06AM ; [facility] Assessment of body mass inde x [Body mass index [BMI] 31.0-31.9, adult] Medical Established Patient with Kavita Hardeep PREPRINT ANALYST 06/02/2021 Last Documented On 1 5:19PM ; [facility] Type 2 diabetes mellitus Medical Established Pat ient with Kavita Hardeep PREPRINT ANALYST 06/02/2021 Last Documented On 1 5:19PM ; [facility] Assessment of body mass inde x [Body mass index [BMI] 31.0-31.9, adult] Medical Established Patient with Kavita Hardeep PREPRINT ANALYST 05/18/2021 Last Documented On 1 5:34PM ; [facility] Assessment of body mass inde x [Body mass index [BMI] 29.0-29.9, adult] Medical New Patient with Kavita Hardeep PREPRINT ANALYST 04/21/2021 Last Documented On 1 12:10PM ; [facility] Type 2 diabetes mellitus Medical New Patient wit h Kavita Hardeep PREPRINT ANALYST 04/21/2021 Last Documented On 1 12:10PM ; [facility] Work Phone: 1(263) 835-349401-23-2025 Evaluation note Includes: Assessments for all patient encounters Findings Encounter Date [Body mass index [BMI] 28.0- 28.9, adult] assessment of body mass index Medical Established Patient with Kavita Hardeep PREPRINT ANALYST 08/08/2024 Last Documented On 5 9:31AM ; [facility] Type 2 diabetes mellitus Medical Established Pat ient with Kavita Hardeep PREPRINT ANALYST 08/08/2024 Last Documented On 5 9:31AM ; [facility] [Body mass index [BMI] 30.0- 30.9, adult] assessment of body mass index Medical Established Patient with Kavita Hardeep PREPRINT ANALYST 07/04/2024 Last Documented On 4 8:14AM ; [facility] Type 2 diabetes mellitus Medical Established Pat ient with Kavita Hardeep PREPRINT ANALYST 07/04/2024 Last Documented On 4 8:14AM ; [facility] [Body mass index [BMI] 28.0- 28.9, adult] assessment of body mass index Open Access - Established with Kavita Hardeep PREPRINT ANALYST 06/06/2024 Last Documented On 4 11:06AM ; [facility] Venipuncture was performed Open Access - Establi shed with Kavita Hardeep PREPRINT ANALYST 06/06/2024 Last Documented On 4 11:06AM ; [facility] Assessment of body mass inde x [Body mass index [BMI] 31.0-31.9, adult] Medical Established Patient with Kavita Hardeep PREPRINT ANALYST 06/02/2021 Last Documented On 1 5:19PM ; [facility] Type 2 diabetes mellitus Medical Established Pat ient with Kavita Hardeep PREPRINT ANALYST 06/02/2021 Last Documented On 1 5:19PM ; [facility] Assessment of body mass inde x [Body mass index [BMI] 31.0-31.9, adult] Medical Established Patient with Kavita Qureshi PREPRINT ANALYST 05/18/2021 Last Documented On 1 5:34PM ; [facility] Assessment of body mass inde x [Body mass index [BMI] 29.0-29.9, adult] Medical New Patient with Kavita Qureshi PREPRINT ANALYST 04/21/2021 Last Documented On 1 12:10PM ; [facility] Type 2 diabetes mellitus Medical New Patient wit h Kavita Qureshi PREPRINT ANALYST 04/21/2021 Last Documented On 1 12:10PM ; [facility] Work Phone: 1(638) 366-206701-23-2025 Progress note* Progress note Date Encounter Last Documented by 08/08/2024 Medical Established Patient Last documented on 08/13/2024; 9:31 AM, Kavita Hardeep JIMENEZ; [facility] Active Problems & Conditions - E11.65 [...] Sliding scale 3 times a day before evghu146-418 3units, 201-250- 6 units, 903-507-2ehaib, 639-890-71mcbud, 351-400-15 units, > 400 18 units, 30 days, 0 refills - Lantus SoloStar 100 UNIT/ML Subcutaneous Solution Pen-injector Inject subcutaneouly 50 units in the morning, and 50 units before bed every day, 30 days, 5 refills - Pen [place] 32G X 5 MM Miscellaneous 32G X 5 MM Use with insulin two times per day, 30 days, 11 refills - predniSONE 20 MG Oral Tablet 5 days, 0 refills - True Metrix Blood Glucose Test In Vitro Strip Use to monitor blood sugars three times a day, 30 days, 11 refills Past Medical/Surgical History Reported: Medical: No previous hospitalizations [facility] 04-16-21. Diagnoses: Diabetes mellitus Social [...] BP-Sitting L134/66 mmHg BP Cuff SizeRegular Pulse Rate-Hjawwxd714 bpm Respiration Rate18 per min Temp-Oral98.3 F Esgmaw15 in Qmudeo068 lbs Body Mass Index28.7 kg/m2 Body Surface Area1.9 m2 Oxygen Xmnkxfshwm74 % Vital Signs: - Systolic blood pressure [...] Leukocyte Estrase Negative and Blood Negative. Specific [place] 1.015 and pH 5.5. Blood Analysis: Blood Endocrine Laboratory Tests: Value Blood glucose level by fingerstick Non-fasting 456 mg/dl Laboratory-based Chemistry: Urine Tests: Value Urine microalbumin dipstick test was 10 + Urine albumin/creatinine by test strip 30-300. Drug Screen: Urine drug screen by multiple class procedure. THC Not Present, PCP Not Present, OXY Not Present, [id number] Not Present, MTD Not Present, MET Not [...] back pain, unspecified In House Medications/Inject/Aerosol Codes: 99613 Therapeutic Prophy or Diag Injection, EACH In House Medications/Meds: Ketorolac 60 mg/2ml INJ (Toradol) Cyclobenzaprine HCl 10 MG tablet Take one tablet three times per day as needed for pain, 10 days, 0 refills EndCited StartCited- Pain in thoracic spine Outside Diagn Tests/X-RAY: XR Spine Thoracic 4+ Views (30351), XR Spine Cervical 3 Views or less (95141) Referrals: Orthopedics Instructions: Please make a referral to:[facility] [place] Gabapentin 300 MG capsule Take one tablet [...] Not planning a in the next year. [facility]01-23-2025 Progress note* Progress note Date Encounter Last Documented by 08/08/2024 Medical Established Patient Last documented on 08/21/2024; 4:23 PM, Kavita Qureshi PREPRINT ANALYST; [facility] Active Problems & Conditions - E11.65 [...] Sliding scale 3 times a day before zkayp188-917 3units, 201-250- 6 units, 768-600-3urysu, 263-712-33isdks, 351-400-15 units, > 400 18 units, 30 days, 0 refills - Lantus SoloStar 100 UNIT/ML Subcutaneous Solution Pen-injector Inject subcutaneouly 50 units in the morning, and 50 units before bed every day, 30 days, 5 refills - Pen [place] 32G X 5 MM Miscellaneous 32G X 5 MM Use with insulin two times per day, 30 days, 11 refills - predniSONE 20 MG Oral Tablet 5 days, 0 refills - True Metrix Blood Glucose Test In Vitro Strip Use to monitor blood sugars three times a day, 30 days, 11 refills Past Medical/Surgical History Reported: Medical: No previous hospitalizations [facility] 04-16-21. Diagnoses: Diabetes mellitus Social [...] BP-Sitting L134/66 mmHg BP Cuff SizeRegular Pulse Rate-Ziotqth298 bpm Respiration Rate18 per min Temp-Oral98.3 F Upglkb31 in Tzoauf062 lbs Body Mass Index28.7 kg/m2 Body Surface Area1.9 m2 Oxygen Lhzolbybut78 % Vital Signs: - Systolic blood pressure [...] Leukocyte Estrase Negative and Blood Negative. Specific [place] 1.015 and pH 5.5. Blood Analysis: Hemoglobin [...] Present, PCP Not Present, OXY Not Present, [id number] Not Present, MTD Not Present, MET Not [...] back pain, unspecified In House Medications/Inject/Aerosol Codes: 75538 Therapeutic Prophy or Diag Injection, EACH In House Medications/Meds: Ketorolac 60 mg/2ml INJ (Toradol) Cyclobenzaprine HCl 10 MG tablet Take one tablet three times per day as needed for pain, 10 days, 0 refills EndCited StartCited- Pain in thoracic spine Outside Diagn Tests/X-RAY: XR Spine Thoracic 4+ Views (77921), XR Spine Cervical 3 Views or less (06078) Referrals: Orthopedics Instructions: Please make a referral to:[facility] [place] Gabapentin 300 MG [...] Not planning a in the next year. [facility]01-23-2025 Progress note* Progress note Date Encounter Last Documented by 08/08/2024 Medical Established Patient Last documented on 08/21/2024; 4:22 PM, Kavita Qureshi CNP; [facility] Active Problems & Conditions - E11.65 [...] Sliding scale 3 times a day before necrz966-221 3units, 201-250- 6 units, 823-931-7jhtkk, 167-439-12lxzzd, 351-400-15 units, > 400 18 units, 30 days, 0 refills - Lantus SoloStar 100 UNIT/ML Subcutaneous Solution Pen-injector Inject subcutaneouly 50 units in the morning, and 50 units before bed every day, 30 days, 5 refills - Pen [place] 32G X 5 MM Miscellaneous 32G X 5 MM Use with insulin two times per day, 30 days, 11 refills - predniSONE 20 MG Oral Tablet 5 days, 0 refills - True Metrix Blood Glucose Test In Vitro Strip Use to monitor blood sugars three times a day, 30 days, 11 refills Past Medical/Surgical History Reported: Medical: No previous hospitalizations [facility] 04-16-21. Diagnoses: Diabetes mellitus Social [...] BP-Sitting L134/66 mmHg BP Cuff SizeRegular Pulse Rate-Sjllica771 bpm Respiration Rate18 per min Temp-Oral98.3 F Ovmwwk08 in Vpcssc202 lbs Body Mass Index28.7 kg/m2 Body Surface Area1.9 m2 Oxygen Vieizmfsdt01 % Vital Signs: - Systolic blood pressure [...] Leukocyte Estrase Negative and Blood Negative. Specific [place] 1.015 and pH 5.5. Blood Analysis: Hemoglobin [...] Present, PCP Not Present, OXY Not Present, [id number] Not Present, MTD Not Present, MET Not [...] back pain, unspecified In House Medications/Inject/Aerosol Codes: 45352 Therapeutic Prophy or Diag Injection, EACH In House Medications/Meds: Ketorolac 60 mg/2ml INJ (Toradol) Cyclobenzaprine HCl 10 MG tablet Take one tablet three times per day as needed for pain, 10 days, 0 refills EndCited StartCited- Pain in thoracic spine Outside Diagn Tests/X-RAY: XR Spine Thoracic 4+ Views (37352), XR Spine Cervical 3 Views or less (11592) Referrals: Orthopedics Instructions: Please make a referral to:[facility] [place] Gabapentin 300 MG [...] a in the next year. [facility]01-14-2025 History of Present illness Narrative* Samira Yoo Hans - 07/30/2024 1:45 PM EST Images from the original note were not included. [facility] Daily Note Date: 07/30/2024 Patient Name: Casandra Gonzalez : 1970 (54 y.o.) Referring Provider (secondary): Kavita Qureshi CNP Diagnosis: Muscle Weakness Treatment Diagnosis: Back pain, Weakness PT Insurance Information: [facility] Total # of Visits Approved: 10 [...] with HEP for ROM and glut strengthening. Skilled Nursing Goals Time Frame for Skilled Nursing Goals : 10 visits Bobbin Winder Goal 1: Pt to improve LEFS from 38/80 to >48/80 to improve pt ADL carlos. Bobbin Winder Goal 2: Pt to have 4/5 horiz ABD strength to improve posture and reduce LBP. Skilled Nursing Goal 3: Pt to maintain tandum stance 10sec 2:3 B/L to improve amb and stair safety. Skilled Nursing Goal 4: Pt to report worst pain in back 3/10 x 4 consecutive days to improve work cralos Bobbin Winder Goal 5: Pt to complete 20# crate lift floor to waist x10 with proper mechanics and no increased pain. Treatment Tolerance: Carlos well Post Treatment Pain: 5/10 Time In: 1345 Time Out : 1425 Timed Code Treatment Minutes: 40 Minutes Total Treatment Time: 40 Minutes Samira Yoo QUALITY RN Date: 07/30/2024 documented in this encounterBon [facility] History of Present illness Narrative* Samira Yoo - 07/25/2024 1:30 PM EST Images from the original note were not included. [facility] Therapy Daily Note Date: 07/25/2024 Patient Name: Casandra Gonzalez : 1970 (54 y.o.) Referring Provider (secondary): Kavita Qureshi CNP Diagnosis: Muscle Weakness Treatment Diagnosis: Back pain, Weakness PT [facility] Total # of Visits Approved: 10 Per Physician Order Total # of Visits to Date: 3 No Show: 1 Canceled Appointment: 0 Pre-Treatment Pain: 5/10 Assessment Assessment: Pt reports pain /10 today. Performed ex/NMR as outlined. Progressed with [...] with HEP for ROM and glut strengthening. Skilled Nursing Goals Time Frame for Bobbin Winder Goals : 10 visits Bobbin Winder Goal 1: Pt to improve LEFS from 38/80 to >48/80 to improve pt ADL carlos. Bobbin Winder Goal 2: Pt to have 4/5 horiz ABD strength to improve posture and reduce LBP. Skilled Nursing Goal 3: Pt to maintain tandum stance 10sec 2:3 B/L to improve amb and stair safety. Skilled Nursing Goal 4: Pt to report worst pain in back 3/10 x 4 consecutive days to improve work carlos Skilled Nursing Goal 5: Pt to complete 20# crate lift floor to waist x10 with proper mechanics and no increased pain. Post Treatment Pain: 09/23 Time In: 1330 Time Out : 1415 Timed and total 45 min Samira Yoo QUALITY RN Date: 07/25/2024 [facility] History of Present illness Narrative* Judy Miller, PT - 07/16/2024 1:00 PM EST [facility] Date: 07/16/2024 Patient Name: Casandra Gonzalez : 1970 Pt No Showed Appt - called and spoke to pt. She did not relies today's date. Pt confirmed her appt for 07/18/23 at 1:45pm Judy Miller, PT Date: 07/16/2024 [facility] Evaluation note Includes: Assessments for all patient encounters Findings Encounter Date [Body mass index [BMI] 30.0- 30.9, adult] assessment of body mass index Medical Established Patient with Kavita Qureshi CNP 07/04/2024 Last Documented On 4 8:14AM ; [facility] Type 2 diabetes mellitus Medical Established Pat ient with Kavita Qureshi PREPRINT ANALYST 07/04/2024 Last Documented On 4 8:14AM ; [facility] [Body mass index [BMI] 28.0- 28.9, adult] assessment of body mass index Open Access - Established with Kavita Qureshi CNP 06/06/2024 Last Documented On 4 11:06AM ; [facility] Venipuncture was performed Open Access - Establi shed with Kavita Qureshi CNP 06/06/2024 Last Documented On 4 11:06AM ; [facility] Assessment of body mass inde x [Body mass index [BMI] 31.0-31.9, adult] Medical Established Patient with Kavita Hardeep PREPRINT ANALYST 06/02/2021 Last Documented On 1 5:19PM ; [facility] Type 2 diabetes mellitus Medical Established Pat ient with Kavita Hardeep PREPRINT ANALYST 06/02/2021 Last Documented On 1 5:19PM ; [facility] Assessment of body mass inde x [Body mass index [BMI] 31.0-31.9, adult] Medical Established Patient with Kavita Bryanter PREPRINT ANALYST 05/18/2021 Last Documented On 1 5:34PM ; [facility] Assessment of body mass inde x [Body mass index [BMI] 29.0-29.9, adult] Medical New Patient with Kavita Hardeep PREPRINT ANALYST 04/21/2021 Last Documented On 1 12:10PM ; [facility] Type 2 diabetes mellitus Medical New Patient wit h Kavita Qureshi CNP 04/21/2021 Last Documented On 1 12:10PM ; [facility] Work Phone: 1(743) 161-695512-19-2024 Progress note* Progress note Date Encounter Last Documented by 07/04/2024 Medical Established Patient Last documented on 07/08/2024; 8:14 AM, Kavita Qureshi CNP; [facility] Active Problems & Conditions - E11.65 [...] day, 30 days, 0 refills - Pen [place] 32G X 5 MM Miscellaneous 32G X 5 MM Use with insulin two times per day, 30 days, 11 refills Past Medical/Surgical History Reported: Medical: No previous hospitalizations [facility] 04-16-21. Diagnoses: Diabetes mellitus Social [...] BP-Sitting R121/81 mmHg BP Cuff SizeRegular Pulse Rate-Uxvlmlq713 bpm Temp-Oral98.1 F Vqpsje35 in Rwfttj553 lbs 3.2 oz Body Mass Index30.9 kg/m2 Body Surface Area2 m2 Oxygen Fhlukdslwm24 % - Vitals taken 07/04/2024 02:48 pm BP-Vciygaa109/82 mmHg Vital Signs: - Systolic blood pressure [...] Sliding scale 3 times a day before orjwi997-921 3units, 201-250- 6 units, 918-467-5jlyyx, 633-228-61ypoym, 351-400-15 units, > 400 18 units, 30 days, 0 refills True Metrix Blood Glucose Test strip Use to monitor blood sugars three times a day, 30 days, [address] [facility] True Metrix Glucose Meter w/Device Kit Use to monitor blood sugars daily, 30 days, 0 refills BD Lancet Ultrafine 33G unspecified use to monitor blood sugars up to 3 times per day, 30 days, 11 refills [facility]12-09-2024 Progress note* Progress note Date Encounter Last Documented by 06/24/2024 [Patient Encounter] Last shorty lam on 06/24/2024; 1:46 PM, Kavita Qureshi PREPRINT ANALYST; [facility] Active Problems & Conditions - E11.65 [...] day, 30 days, 0 refills - Pen [place] 32G X 5 MM Miscellaneous 32G X 5 MM Use with insulin two times per day, 30 days, 11 refills Past Medical/Surgical History Reported: Medical: No previous hospitalizations [facility] 04-16-21. Diagnoses: Diabetes mellitus Allergies [...] daily. E10.65, 28 days, 6 refills EndCited [facility]11-25-2024 Progress note* Progress note Date Encounter Last Documented by 06/10/2024 Chart Update Last documented on 06/10/2024; 9:45 AM, Juan MALONEP; [facility] Active Problems & Conditions - E11.65 [...] day, 30 days, 0 refills - Pen [place] 32G X 5 MM Miscellaneous 32G X 5 MM Use with insulin two times per day, 30 days, 11 refills Past Medical/Surgical History Reported: Medical: Previous hospitalizations [facility] 04-16-21. Diagnoses: Diabetes mellitus Allergies - NO KNOWN ENVIRONMENTAL ALLERGIES - NO KNOWN FOOD ALLERGIES - Penicillins Reaction: Hives / Urticaria - Statins Reaction: Hives / Urticaria Family History Paternal: Type 2 diabetes mellitus Maternal: Type 2 diabetes mellitus Plan StartCited- Other Fenofibrate 160 MG tablet 1 tab daily, 90 days, 1 refills EndCited [facility]11-21-2024 Evaluation note Includes: Assessments for all patient encounters Findings Encounter Date [Body mass index [BMI] 28.0- 28.9, adult] assessment of body mass index Open Access - Established with Kavita Qureshi [facility] 06/06/2024 Last Documented On 4 2:03PM ; [facility] Venipuncture was performed Open Access - Establi shed with Kavita Qureshi [facility] 06/06/2024 Last Documented On 4 2:03PM ; [facility] Assessment of body mass inde x [Body mass index [BMI] 31.0-31.9, adult] Medical Established Patient with Kavita Qureshi PREPRINT ANALYST 06/02/2021 Last Documented On 1 5:19PM ; [facility] Type 2 diabetes mellitus Medical Established Pat ient with Kavita Qureshi [facility] 06/02/2021 Last Documented On 1 5:19PM ; [facility] Assessment of body mass inde x [Body mass index [BMI] 31.0-31.9, adult] Medical Established Patient with Kavita Qureshi PREPRINT ANALYST 05/18/2021 Last Documented On 1 5:34PM ; [facility] Assessment of body mass inde x [Body mass index [BMI] 29.0-29.9, adult] Medical New Patient with Kavita Hardeep PREPRINT ANALYST 04/21/2021 Last Documented On 1 12:10PM ; [facility] Type 2 diabetes mellitus Medical New Patient wit thomas Lujan Hardeep PREPRINT ANALYST 04/21/2021 Last Documented On 1 12:10PM ; [facility] Work Phone: 1(337) 185-386111-21-2024 Evaluation note Includes: Assessments for all patient encounters Findings Encounter Date [Body mass index [BMI] 28.0- 28.9, adult] assessment of body mass index Open Access - Established with Kavita Hardeep PREPRINT ANALYST 06/06/2024 Last Documented On 4 11:06AM ; [facility] Venipuncture was performed Open Access - Establi shed with Kavita Hardeep PREPRINT ANALYST 06/06/2024 Last Documented On 4 11:06AM ; [facility] Assessment of body mass inde x [Body mass index [BMI] 31.0-31.9, adult] Medical Established Patient with Kavita Hardeep PREPRINT ANALYST 06/02/2021 Last Documented On 1 5:19PM ; [facility] Type 2 diabetes mellitus Medical Established Pat ient with Kavita Hardeep PREPRINT ANALYST 06/02/2021 Last Documented On 1 5:19PM ; [facility] Assessment of body mass inde x [Body mass index [BMI] 31.0-31.9, adult] Medical Established Patient with Kavita Hardeep PREPRINT ANALYST 05/18/2021 Last Documented On 1 5:34PM ; [facility] Assessment of body mass inde x [Body mass index [BMI] 29.0-29.9, adult] Medical New Patient with Kavita Hardeep PREPRINT ANALYST 04/21/2021 Last Documented On 1 12:10PM ; [facility] Type 2 diabetes mellitus Medical New Patient sylvia alba Kavita Hardeep PREPRINT ANALYST 04/21/2021 Last Documented On 1 12:10PM ; [facility] Work Phone: 1(297) 567-150011-21-2024 Evaluation note Includes: Assessments for all patient encounters Findings Encounter Date [Body mass index [BMI] 28.0- 28.9, adult] assessment of body mass index Open Access - Established with Kavita Qureshi CNP 06/06/2024 Last Documented On 4 11:06AM ; [facility] Venipuncture was performed Open Access - Establi shed with Kavita Qureshi CNP 06/06/2024 Last Documented On 4 11:06AM ; [facility] Assessment of body mass inde x [Body mass index [BMI] 31.0-31.9, adult] Medical Established Patient with Kavita Qureshi CNP 06/02/2021 Last Documented On 1 5:19PM ; [facility] Type 2 diabetes mellitus Medical Established Pat ient with Kavita Qureshi CNP 06/02/2021 Last Documented On 1 5:19PM ; [facility] Assessment of body mass inde x [Body mass index [BMI] 31.0-31.9, adult] Medical Established Patient with Kavita Qureshi CNP 05/18/2021 Last Documented On 1 5:34PM ; [facility] Assessment of body mass inde x [Body mass index [BMI] 29.0-29.9, adult] Medical New Patient with Kavita Qureshi CNP 04/21/2021 Last Documented On 1 12:10PM ; [facility] Type 2 diabetes mellitus Medical New Patient wit h Kavita Qureshi CNP 04/21/2021 Last Documented On 1 12:10PM ; [facility] Work Phone: 1(203) 194-433911-21-2024 Progress note* Progress note Date Encounter Last Documented by 06/06/2024 Open Access - Established Last d ocumented on 06/16/2024; 11:06 AM, Kavita Qureshi CNP; [facility] Active Problems & Conditions - E11.65 [...] Medical/Surgical History Reported: Medical: No previous hospitalizations [facility] 04-16-21. 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 IS NOT AVAILABLE SO WILL START [...] Therapy Instructions: Please make a referral to:PT [facility] rehab and wellness Fax [phone] EndCited StartCited- Type 2 diabetes mellitus with hyperglycemia Lab: Hgb A1c with eAG Estimation Lantus SoloStar 100 UNIT/ML mL Inject subcutaneouly 20 units in the morning, and 20 units before bed every day, 30 days, 0 refills EndCited StartCited- Type 2 diabetes mellitus without complications Pen [place] 32G X 5 MM each Use with insulin two times per day, 30 days, 11 refills EndCited Other - Patient tolerated venipuncture well; - Number of attempts for venipuncture two User Defined 1 Not planning a in the next year. [facility]12-07-2022 Miscellaneous Notes* Certification - Cecilio Saucedo MD - 06/22/2022 6:10 PM EST I certify that this patient does not requires inpatient services at this time. Plans for post hospitalization care will be discharge to home. * Nursing Notes - Alison Doherty RN - 06/22/2022 6:06 PM EST Patient wheeled out by DIRECTOR OF GROUP COUNSELING PROGRAM * Nursing Notes - Alison Doherty RN - 06/22/2022 5:00 PM EST Patient educated on discharge instructions and medications Patient eating dinner prior to leaving * Nursing Notes - Alison Doherty RN - 06/22/2022 4:54 PM EST Notified [place] FORMER HAND of CO2 - 20 K - 3.7 Phos - 2.0 Glucose - 190 OK to discharge per FORMER HAND * Nursing Notes - Alison Doherty RN [...] bolus. [facility] to pharmacy [facility]* Certification - Cecilio Saucedo MD - 06/22/2022 6:10 PM EST I certify that this patient does not requires inpatient services at this time. Plans for post hospitalization care will be discharge to home. [facility] Work Phone: 1(621) 348-920912-07-2022 Note* Nursing Notes - Alison Doherty RN - 06/22/2022 6:06 PM EST Patient wheeled out by DIRECTOR OF GROUP COUNSELING PROGRAM [facility]* Nursing Notes - Alison Doherty RN - 06/22/2022 5:00 PM EST Patient educated on discharge instructions and medications Patient eating dinner prior to leaving [facility] [employer] [id number] Note* Nursing Notes - Alison Doherty RN - 06/22/2022 4:54 PM EST Notified [facility] FORMER HAND of CO2 - 20 K - 3.7 Phos - 2.0 Glucose - 190 OK to discharge per FORMER HAND [facility]* Nursing Notes - Alison Doherty RN - 06/22/2022 4:31 PM EST Assessment unchanged unless otherwise charted Call light within reach No denies pain Patient is up in the chair Waiting of 4pm renal panel to result to determine is patient is eligible for discharge [facility]* Nursing Notes - Alison Doherty RN - 06/22/2022 1:00 PM EST Assessment unchanged unless otherwise charted Call light within reach No denies pain [facility] History of Present illness Narrative* ASH Sanches - 06/22/2022 11:27 AM ESTSummary: Social Service Assessment 06/22/22 0766 Information Source Information Source patient ;review of medical record Information Source Name Casandra Gonzalez Information Source Number [phone] Contact Information 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 Patient was admitted to [facility] ICU for DKA on an insulin drip. Visit with patient Casandra Gonzalez and daughter at bedside. Patient was laying flat, awake in bed and agreeable to talk with this TERRAPIN FISHER. Casandra states that she is current with [...] states that she checks hersugars with a ScaleIOyle Titus but does not think that it [...] better blood sugar control and options. Mekhi Clinical Psychology Professor provided glucometer for home going. documented in this [facility]12-07-2022 Hospital course Narrative* Brijesh Taveras APRN-TONY - 06/22/2022 10:54 AM EST Discharge Summary [...] daily. Generic drug: Aspirin FreeStyle Titus 2 [place]vue Systm NISH 1 Each by Unknown route [...] Discharge Follow-up: Kavita Qureshi CNP [address] [facility] [id number] Call Post-Hospital Follow Up Manish Shea MD [address] [place] [phone] Call Post-Hospital Follow Up Discharge Disposition: Patient will be discharged in stable condition. Discharge Time: Including assessment, planning, and medication reconciliation was 13 min of PREPRINT ANALYST time. Brijesh Taveras CNP completing Discharge Summary for Dr. Saucedo Please note Portions of this note utilized [employer] dictation software, please excuse any typographical or grammatical errors Associated attestation - Cecilio Saucedo MD - 06/22/2022 8:47 PM EST I have independently interviewed and examined the patient. I have discussed nj elements of the care plan with the FORMER HAND and I agree with the findings and care plan as stated above. [facility] History and physical note* Brijesh Taveras APRN-TONY [...] mouth daily. Past Week Continuous Blood Gluc Refrigeration Engineer (FreeStyle Titus 2 Belvue Systm) Device 1 Each by Unknown route [...] Use Authorization (EUA) for the qualitative detection [id number]-RrF-2 nucleic acid. COLOR, URINE 06/21/2022 YELLOW APPEARANCE, URINE 06/21/2022 CLEAR Specific [place], Urine 06/21/2022 >1.030 (H) PH URINE 06/21/2022 [...] GLUCOSE, POINT OF CARE 06/21/2022 400 (H) Job Forwarder 06/21/2022 205,067 MAGNESIUM 06/22/2022 2.0 GLUCOSE 06/22/2022 [...] GLUCOSE, POINT OF CARE 06/21/2022 393 (H) Job Forwarder 06/21/2022 206,278 GLUCOSE, POINT OF CARE 06/21/2022 280 (H) Job Forwarder 06/21/2022 204,702 GLUCOSE, POINT OF CARE 06/21/2022 210 (H) Job Forwarder 06/21/2022 204,702 GLUCOSE, POINT OF CARE 06/21/2022 175 (H) Job Forwarder 06/21/2022 204,702 GLUCOSE, POINT OF CARE 06/21/2022 192 (H) Job Forwarder 06/21/2022 204,702 GLUCOSE, POINT OF CARE 06/22/2022 221 (H) Job Forwarder 06/22/2022 204,702 GLUCOSE, POINT OF CARE 06/22/2022 212 (H) Job Forwarder 06/22/2022 204,702 GLUCOSE, POINT OF CARE 06/22/2022 214 (H) Job Forwarder 06/22/2022 206,907 MAGNESIUM 06/22/2022 1.9 GLUCOSE 06/22/2022 [...] GLUCOSE, POINT OF CARE 06/22/2022 245 (H) Job Forwarder 06/22/2022 204,702 GLUCOSE, POINT OF CARE 06/22/2022 242 (H) Job Forwarder 06/22/2022 207,486 GLUCOSE, POINT OF CARE 06/22/2022 252 (H) Job Forwarder 06/22/2022 204,702 GLUCOSE, POINT OF CARE 06/22/2022 234 (H) Job Forwarder 06/22/2022 207,019 GLUCOSE, POINT OF CARE 06/22/2022 230 (H) Job Forwarder 06/22/2022 207,019 WBC (WHITE BLOOD COUNT) 06/22/2022 [...] GLUCOSE, POINT OF CARE 06/22/2022 213 (H) Job Forwarder 06/22/2022 207,019 GLUCOSE, POINT OF CARE 06/22/2022 214 (H) Job Forwarder 06/22/2022 207,019 GLUCOSE, POINT OF CARE 06/22/2022 340 (H) Job Forwarder 06/22/2022 207,019 Impression and Plan: Principal Problem: [...] for Dr. Saucedo 21 minutes spent of PREPRINT ANALYST time including assessment, planning, and discussion with nursing staff and patient Please note Portions of this note utilized InfraReDx dictation software, please excuse any typographical or grammatical errors Associated attestation - Cecilio Saucedo MD - 06/22/2022 8:49 PM EST I have independently interviewed and examined the patient. I have discussed nj elements of the care plan with the FORMER HAND and I agree with the findings and [...] follow w pmd as outpt See orders [facility] Evaluation + Plan note* Assessment & Plan Note - TEODORO Ruiz - 06/22/2022 10:50 AM ESTAssociated Problem(s): Mixed hyperlipidemia Resume home medications Follow-up with PCP after discharge [facility]12-07-2022 Evaluation + Plan note* Assessment & Plan Note - TEODORO Ruiz - 06/22/2022 10:50 AM ESTAssociated Problem(s): Metabolic acidosis Secondary to DKA Volume expand Trend labs [facility]12-07-2022 Evaluation + Plan note* Assessment & Plan Note - TEODORO Ruiz - 06/22/2022 10:50 AM ESTAssociated Problem(s): Medical non-compliance Importance of medical compliance discussed with patient [facility]12-07-2022 Evaluation + Plan note* Assessment & Plan Note - TEODORO Ruiz - 06/22/2022 10:50 AM ESTAssociated Problem(s): Electrolyte imbalance Replace potassium and phosphorus Trend labs [facility]12-07-2022 History and physical note* TEODORO Ruiz - 06/22/2022 10:50 AM EST History and [...] mouth daily. Past Week Continuous Blood Gluc Refrigeration Engineer (FreeStyle Titus 2 Belvue Systm) Device 1 Each by Unknown route [...] Use Authorization (EUA) for the qualitative detection [id number] nucleic acid. COLOR, URINE 06/21/2022 YELLOW APPEARANCE, URINE 06/21/2022 CLEAR Specific [place], Urine 06/21/2022 >1.030 (H) PH URINE 06/21/2022 [...] GLUCOSE, POINT OF CARE 06/21/2022 400 (H) Job Forwarder 06/21/2022 205,067 MAGNESIUM 06/22/2022 2.0 GLUCOSE 06/22/2022 [...] GLUCOSE, POINT OF CARE 06/21/2022 393 (H) Job Forwarder 06/21/2022 206,278 GLUCOSE, POINT OF CARE 06/21/2022 280 (H) Job Forwarder 06/21/2022 204,702 GLUCOSE, POINT OF CARE 06/21/2022 210 (H) Job Forwarder 06/21/2022 204,702 GLUCOSE, POINT OF CARE 06/21/2022 175 (H) Job Forwarder 06/21/2022 204,702 GLUCOSE, POINT OF CARE 06/21/2022 192 (H) Job Forwarder 06/21/2022 204,702 GLUCOSE, POINT OF CARE 06/22/2022 221 (H) Job Forwarder 06/22/2022 204,702 GLUCOSE, POINT OF CARE 06/22/2022 212 (H) Job Forwarder 06/22/2022 204,702 GLUCOSE, POINT OF CARE 06/22/2022 214 (H) Job Forwarder 06/22/2022 206,907 MAGNESIUM 06/22/2022 1.9 GLUCOSE 06/22/2022 [...] GLUCOSE, POINT OF CARE 06/22/2022 245 (H) Job Forwarder 06/22/2022 204,702 GLUCOSE, POINT OF CARE 06/22/2022 242 (H) Job Forwarder 06/22/2022 207,486 GLUCOSE, POINT OF CARE 06/22/2022 252 (H) Job Forwarder 06/22/2022 204,702 GLUCOSE, POINT OF CARE 06/22/2022 234 (H) Job Forwarder 06/22/2022 207,019 GLUCOSE, POINT OF CARE 06/22/2022 230 (H) Job Forwarder 06/22/2022 207,019 WBC (WHITE BLOOD COUNT) 06/22/2022 [...] GLUCOSE, POINT OF CARE 06/22/2022 213 (H) Job Forwarder 06/22/2022 207,019 GLUCOSE, POINT OF CARE 06/22/2022 214 (H) Job Forwarder 06/22/2022 207,019 GLUCOSE, POINT OF CARE 06/22/2022 340 (H) Job Forwarder 06/22/2022 207,019 Impression and Plan: Principal Problem: [...] for Dr. Saucedo 21 minutes spent of PREPRINT ANALYST time including assessment, planning, and discussion with nursing staff and patient Please note Portions of this note utilized InfraReDx dictation software, please excuse any typographical or grammatical errors Associated attestation - Cecilio Saucedo MD - 06/22/2022 8:49 PM EST I have independently interviewed and examined the patient. I have discussed nj elements of the care plan with the FORMER HAND and I agree with the findings and [...] as outpt See orders [facility] [employer] [id number] Evaluation + Plan note * Assessment & Plan Note - TEODORO Ruiz - 06/22/2022 10:49 AM ESTAssociated Problem(s): DKA (diabetic ketoacidosis) Resolving - Gap closing Volume expand Serial labs [facility]12-07-2022 Evaluation + Plan note* Assessment & Plan Note - TEODORO Ruiz - 06/22/2022 10:49 AM ESTAssociated Problem(s): Diabetes mellitus, type 2 Recent A1c 12.3 Follows with Endocrinology Resume home medications Accuchecks with [facility] [employer] [id number] Note* Nursing Notes - Abbie Gibson RN - 06/22/2022 3:05 AM EST 2nd attempt to page Dr Saucedo [facility]12-07-2022 Note* Nursing Notes - Abbie Gibson RN - 06/22/2022 2:35 AM EST Attempt to page Dr Saucedo for critical labs [facility]12-06-2022 Note* Nursing Notes - Abbie Gibson RN - 06/21/2022 8:32 PM EST Critical CO2 <7 reported to Rickey Taveras CNP new order to increase cont NS to 150 mL/hr and give 2L LR bolus. Faxed to pharmacy [facility]12-06-2022 Emergency department Note* Mason Dooley RN - 06/21/2022 3:36 PM EST Patient refuses covid test stating she took a home test last night that was negative. Patient refuses and all imaging, stating I don't want to be radiated. [facility]12-06-2022 Emergency department Note* Mason Dooley RN - 06/21/2022 3:36 PM EST Patient refuses covid test stating she took a home test last night that was negative. Patient refuses and all imaging, stating I don't want to be radiated. * Irvin Magana MD - 06/21/2022 3:29 PM EST EMERGENCY DEPARTMENT REPORT [facility] ICU SERVICE DATE: 06/22/22 PCP: Kavita Qureshi [...] mg by mouth daily. Continuous Blood Gluc Refrigeration Engineer (FreeStyle Titus 2 Belvue Systm) Device 1 Each by Unknown route [...] Use Authorization (EUA) for the qualitative detection [id number]-5 nucleic acid. SCREEN: MRSA ONLY, NARES (ISOLATION [...] CARE 400 (H) 70 - 100 MG/DL Job Forwarder 205,067 GLUCOSE (POC DEVICE) Result Value Ref Range GLUCOSE, POINT OF CARE 393 (H) 70 - 100 MG/DL Job Forwarder 206,278 GLUCOSE (POC DEVICE) Result Value Ref Range GLUCOSE, POINT OF CARE 280 (H) 70 - 100 MG/DL Job Forwarder 204,702 GLUCOSE (POC DEVICE) Result Value Ref Range GLUCOSE, POINT OF CARE 210 (H) 70 - 100 MG/DL Job Forwarder 204,702 GLUCOSE (POC DEVICE) Result Value Ref Range GLUCOSE, POINT OF CARE 175 (H) 70 - 100 MG/DL Job Forwarder 204,702 GLUCOSE (POC DEVICE) Result Value Ref Range GLUCOSE, POINT OF CARE 192 (H) 70 - 100 MG/DL Job Forwarder 204,702 GLUCOSE (POC DEVICE) Result Value Ref Range GLUCOSE, POINT OF CARE 221 (H) 70 - 100 MG/DL Job Forwarder 204,702 GLUCOSE (POC DEVICE) Result Value Ref Range GLUCOSE, POINT OF CARE 212 (H) 70 - 100 MG/DL Job Forwarder 204,702 GLUCOSE (POC DEVICE) Result Value Ref Range GLUCOSE, POINT OF CARE 214 (H) 70 - 100 MG/DL Job Forwarder 206,907 GLUCOSE (POC DEVICE) Result Value Ref Range GLUCOSE, POINT OF CARE 245 (H) 70 - 100 MG/DL Job Forwarder 204,702 GLUCOSE (POC DEVICE) Result Value Ref Range GLUCOSE, POINT OF CARE 242 (H) 70 - 100 MG/DL Job Forwarder 207,486 GLUCOSE (POC DEVICE) Result Value Ref Range GLUCOSE, POINT OF CARE 252 (H) 70 - 100 MG/DL Job Forwarder 204,702 GLUCOSE (POC DEVICE) Result Value Ref Range GLUCOSE, POINT OF CARE 234 (H) 70 - 100 MG/DL Job Forwarder 207,019 GLUCOSE (POC DEVICE) Result Value Ref Range GLUCOSE, POINT OF CARE 230 (H) 70 - 100 MG/DL Job Forwarder 207,019 GLUCOSE (POC DEVICE) Result Value Ref Range GLUCOSE, POINT OF CARE 213 (H) 70 - 100 MG/DL Job Forwarder 207,019 GLUCOSE (POC DEVICE) Result Value Ref Range GLUCOSE, POINT OF CARE 214 (H) 70 - 100 MG/DL Job Forwarder 207,019 GLUCOSE (POC DEVICE) Result Value Ref Range GLUCOSE, POINT OF CARE 340 (H) 70 - 100 MG/DL Job Forwarder 207,019 URINALYSIS, MACRO Result Value Ref Range COLOR, URINE YELLOW YELLOW APPEARANCE, URINE CLEAR CLEAR Specific [place], Urine >1.030 (H) 1.010 - 1.025 PH [...] Portions of this chart were created using [employer] electronic dictation. Please excuse any typographical or grammatical errors contained herein. Irvin Magana MD 06/22/22 1055 documented in this [facility]12-06-2022 Physician Emergency department Note* Irvin Magana MD - 06/21/2022 3:29 PM EST EMERGENCY DEPARTMENT REPORT [facility] SERVICE DATE: 06/22/22 PCP: Kavita Qureshi [...] mg by mouth daily. Continuous Blood Gluc Refrigeration Engineer (FreeStyle Titus 2 [employer] Sy[employer]m) Device 1 Each by Unknown route [...] Use Authorization (EUA) for the qualitative detection [id number] nucleic acid. SCREEN: MRSA ONLY, NARES (ISOLATION [...] CARE 400 (H) 70 - 100 MG/DL Job Forwarder 205,067 GLUCOSE (POC DEVICE) Result Value Ref Range GLUCOSE, POINT OF CARE 393 (H) 70 - 100 MG/DL Job Forwarder 206,278 GLUCOSE (POC DEVICE) Result Value Ref Range GLUCOSE, POINT OF CARE 280 (H) 70 - 100 MG/DL Job Forwarder 204,702 GLUCOSE (POC DEVICE) Result Value Ref Range GLUCOSE, POINT OF CARE 210 (H) 70 - 100 MG/DL Job Forwarder 204,702 GLUCOSE (POC DEVICE) Result Value Ref Range GLUCOSE, POINT OF CARE 175 (H) 70 - 100 MG/DL Job Forwarder 204,702 GLUCOSE (POC DEVICE) Result Value Ref Range GLUCOSE, POINT OF CARE 192 (H) 70 - 100 MG/DL Job Forwarder 204,702 GLUCOSE (POC DEVICE) Result Value Ref Range GLUCOSE, POINT OF CARE 221 (H) 70 - 100 MG/DL Job Forwarder 204,702 GLUCOSE (POC DEVICE) Result Value Ref Range GLUCOSE, POINT OF CARE 212 (H) 70 - 100 MG/DL Job Forwarder 204,702 GLUCOSE (POC DEVICE) Result Value Ref Range GLUCOSE, POINT OF CARE 214 (H) 70 - 100 MG/DL Job Forwarder 206,907 GLUCOSE (POC DEVICE) Result Value Ref Range GLUCOSE, POINT OF CARE 245 (H) 70 - 100 MG/DL Job Forwarder 204,702 GLUCOSE (POC DEVICE) Result Value Ref Range GLUCOSE, POINT OF CARE 242 (H) 70 - 100 MG/DL Job Forwarder 207,486 GLUCOSE (POC DEVICE) Result Value Ref Range GLUCOSE, POINT OF CARE 252 (H) 70 - 100 MG/DL Job Forwarder 204,702 GLUCOSE (POC DEVICE) Result Value Ref Range GLUCOSE, POINT OF CARE 234 (H) 70 - 100 MG/DL Job Forwarder 207,019 GLUCOSE (POC DEVICE) Result Value Ref Range GLUCOSE, POINT OF CARE 230 (H) 70 - 100 MG/DL Job Forwarder 207,019 GLUCOSE (POC DEVICE) Result Value Ref Range GLUCOSE, POINT OF CARE 213 (H) 70 - 100 MG/DL Job Forwarder 207,019 GLUCOSE (POC DEVICE) Result Value Ref Range GLUCOSE, POINT OF CARE 214 (H) 70 - 100 MG/DL Job Forwarder 207,019 GLUCOSE (POC DEVICE) Result Value Ref Range GLUCOSE, POINT OF CARE 340 (H) 70 - 100 MG/DL Job Forwarder 207,019 URINALYSIS, MACRO Result Value Ref Range COLOR, URINE YELLOW YELLOW APPEARANCE, URINE CLEAR CLEAR Specific [place], Urine >1.030 (H) 1.010 - 1.025 PH [...] Portions of this chart were created using [employer] electronic dictation. Please excuse any typographical or grammatical errors contained herein. Irvin Magana MD 06/22/22 [address] [facility] Work Phone: 1(992) 927-589809-22-2022 History of Present illness Narrative* Bart Stone [...] follow with podiatry. Last met with a inclusion special educator a few years ago. She reports [...] taking lisinopril 2.5 mg daily. 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 [facility]* Manish Shea MD - 04/07/2022 2:15 PM EDTAssociated Order(s): [place] CONTINUOUS GLUCOSE MONITORING ANALYSIS I&R CGM download shows 0% of blood sugars at target range, 2% high, 98% very high, GMI = 12.1%. Hyperglycemia at all timeframes. Lowest blood sugars approximately 200 mg/dL. This CGM download, we discussed insulin therapy versus bariatric surgery. [facility] Procedure note* Manish Shea MD - 04/07/2022 2:15 PM EDTAssociated Order(s): [place] CONTINUOUS GLUCOSE MONITORING ANALYSIS I&R CGM download shows 0% of blood sugars at target range, 2% high, 98% very high, GMI = 12.1%. Hyperglycemia at all timeframes. Lowest blood sugars approximately 200 mg/dL. This CGM download, we discussed insulin therapy versus bariatric surgery. [facility] History of Present illness Narrative* Kednall Steiner LPN - 02/03/2022 3:45 PM EDT [...] The patient is not nervous/anxious. Last saw hospice educator in [place] unsure of when Nursing Assessment: Physical Exam [...] follow with podiatry. Last met with a inclusion special educator a few years ago. She reports [...] blood sugars. GMI = 11.3 concerns for Alisia syndrome: Dexamethasone suppression test [...] The patient is not nervous/anxious. Last saw hospice educator in [place] unsure of when Nursing Assessment: Physical Exam [...] to research these options. [facility] Procedure note* Manish Shea MD - 02/03/2022 3:45 PM EDTAssociated Order(s): [place] CONTINUOUS GLUCOSE MONITORING ANALYSIS I&R CGM download her showing 0% of blood sugars at target range, 6% high, 94% very high, GMI = 11.3%, no hypoglycemia. There is hyperglycemia at all timeframes. Small response to medications last visit, we will increased doses of GLP-1 and sulfonylurea. Insulin therapy recommended, but declined by patient. [facility] Procedure note* Manish Shea MD - 02/03/2022 3:45 PM EDTAssociated Order(s): [place] CONTINUOUS GLUCOSE MONITORING ANALYSIS I&R CGM download her showing 0% of blood sugars at target range, 6% high, 94% very high, GMI = 11.3%, no hypoglycemia. There is hyperglycemia at all timeframes. Small response to medications last visit, we will increased doses of GLP-1 and sulfonylurea. Insulin therapy recommended, but declined by patient. [facility] History and physical note* Manish Shea MD - 12/09/2021 2:30 PM EDT dirk [facility] History and physical note* Manish Shea MD - 12/09/2021 2:30 PM EDT dirk [facility] History of Present illness Narrative* Bart Stone [...] Positive for sleep disturbance (occasionally). Last saw hospice educator in [place] unsure of when Nursing Assessment: Physical Exam [...] follow with podiatry. Last met with a inclusion special educator a few years ago. She reports [...] Positive for sleep disturbance (occasionally). Last saw hospice educator in [place] unsure of when Nursing Assessment: Physical Exam [...] to research these options. documented [facility]05-26-[facility]22 Miscellaneous Notes* Addendum Note - Karli Farmer - 12/09/2021 2:30 PM EDTAddended by: KARLI FARMER on: 12/09/2021 03:49 PM Modules accepted: Orders documented [facility]05-26-2022 Note* Addendum Note - Karli Farmer - 12/09/2021 2:30 PM EDTAddended by: KARLI FARMER on: 12/09/2021 03:49 PM Modules accepted: Orders [facility] Procedure note* Manish Shea MD - 12/09/2021 2:30 PM EDTAssociated Order(s): [place] CONTINUOUS GLUCOSE MONITORING ANALYSIS I&R CGM download shows 0% of blood sugars at target, 1% high, 99% very high. Based on CGM download, we need to intensify pharmacologic therapy. She is already on a low-carb diet. [facility] Procedure note* Manish Shea MD - 12/09/2021 2:30 PM EDTAssociated Order(s): [place] CONTINUOUS GLUCOSE MONITORING ANALYSIS I&R CGM download shows 0% of blood sugars at target, 1% high, 99% very high. Based on CGM download, we need to intensify pharmacologic therapy. She is already on a low-carb diet. [facility] History of Present illness Narrative* Landy Miranda [...] for sleep disturbance. Patient has seen a hospice educator in [place] 10 years ago Nursing Assessment: Physical Exam [...] follow with podiatry. Last met with a inclusion special educator a few years ago. She reports [...] for sleep disturbance. Patient has seen a hospice educator in [place] 10 years ago Nursing Assessment: Physical Exam [...] diabetes, insulin resistance we will screen for Willernie's syndrome with dexamethasone suppression test as her [...] to research these options. [facility] Evaluation note Includes: Assessments for all patient [...] Pat ient with Kavita Qureshi CNP 04/21/2021 [facility] Work Phone: [phone]) 365-896411-02-2021 Instructions Includes: Instructions for all patient encounters Instructions to patient Maintain a healthy diet Last Documented On 1 4:43PM ; [facility] Maintain a healthy diet Last Documented On 1 10:54AM ; [facility] Education and Decision Aids were provided during visit for: Discussed nutritional needs teach healthy choices including fruits and vegetables Last Documented On 4 3:46PM ; [facility] Patient education about a pr oper diet Last Documented On 4 3:46PM ; [facility] Discussed concerns about exe rcise : promote physical activity ~ ~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 ~ ~LEVEMIR IS NOT AVAILABLE SO WILL [...] ~ Last Documented On 4 4:51PM ; [facility] Referred Patient to a Diabet es Self-Management Program Last Documented On 4 4:21PM ; [facility] Not requesting contraception Last Documented On 4 3:46PM ; [facility] Discussed nutritional needs teach healthy choices including fruits and vegetables Last Documented On 11:33AM ; [facility] Patient education about a pr oper diet Last Documented On 1 11:33AM ; [facility] Discussed concerns about exe rcise : promote physical activity ~ ~Follow up in one month Last Documented On 1 3:30PM ; [facility] Discussed nutritional needs teach healthy choices including fruits and vegetables Last Documented On 1 4:34PM ; [facility] Patient education about a pr oper diet Last Documented On 1 4:34PM ; [facility] Patient education about a ho me blood glucose monitor with instructions to bring monitor to each visit Last Documented On 1 4:43PM ; [facility] Dietary counseling pertainin g to diabetes mellitus Last Documented On 4:43PM ; [facility] Patient education about diab etic foot care Last Documented On 1 4:43PM ; [facility] Inquiry and counseling about medication administration and compliance Last Documented On 1 4:43PM ; [facility] Discussed concerns about exe rcise : promote physical activity Last Documented On 1 4:34PM ; [facility] Patient goals discussed Last Documented On 4:43PM ; [facility] The patient's goal is to tonny t the blood sugars and bring in the results to each visit Last Documented On 4:43PM ; [facility] NOTE: pt reported any inform ation [...] the PHQ9 Last Documented On 8:58PM ; [facility] Discussed nutritional needs teach healthy choices including fruits and vegetables Last Documented On 10:41AM ; [facility] Patient education about a pr oper diet Last Documented On 10:41AM ; [facility] Patient education about regu lar dental care Last Documented On 10:54AM ; [facility] Patient education about a ho me blood glucose monitor with instructions to bring monitor to each visit Last Documented On 10:54AM ; [facility] Dietary counseling pertainin g to diabetes mellitus Last Documented On 10:54AM ; [facility] Patient education about diab etic foot care Last Documented On 10:54AM ; [facility] Inquiry and counseling about medication administration and compliance Last Documented On 10:54AM ; [facility] Discussed concerns about exe rcise : promote physical activity Last Documented On 10:41AM ; [facility] Patient goals discussed Last Documented On 10:54AM ; [facility] The patient's goal is to tonny t the blood sugars and bring in the results to each visit Last Documented On 10:54AM ; [facility] Work Phone: [phone]) 909-906411-02-2021 Instructions Includes: Instructions for all patient encounters Instructions to patient Maintain a healthy diet Last Documented On 4:43PM ; [facility] Maintain a healthy diet Last Documented On 10:54AM ; [facility] Education and Decision Aids were provided during visit for: Discussed nutritional needs teach healthy choices including fruits and vegetables Last Documented On 4 3:46PM ; [facility] Patient education about a pr oper diet Last Documented On 4 3:46PM ; [facility] Discussed concerns about exe rcise : promote physical activity ~ ~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 ~ ~LEVEMIR IS NOT AVAILABLE SO WILL [...] ~ Last Documented On 4 4:51PM ; [facility] Referred Patient to a Diabet es Self-Management Program Last Documented On 4 4:21PM ; [facility] Not requesting contraception Last Documented On 4 3:46PM ; [facility] Discussed nutritional needs teach healthy choices including fruits and vegetables Last Documented On 1 11:33AM ; [facility] Patient education about a pr oper diet Last Documented On 1 11:33AM ; [facility] Discussed concerns about exe rcise : promote physical activity ~ ~Follow up in one month Last Documented On 1 3:30PM ; [facility] Discussed nutritional needs teach healthy choices including fruits and vegetables Last Documented On 1 4:34PM ; [facility] Patient education about a pr oper diet Last Documented On 1 4:34PM ; [facility] Patient education about a ho me blood glucose monitor with instructions to bring monitor to each visit Last Documented On 1 4:43PM ; [facility] Dietary counseling pertainin g to diabetes mellitus Last Documented On 1 4:43PM ; [facility] Patient education about diab etic foot care Last Documented On 1 4:43PM ; [facility] Inquiry and counseling about medication administration and compliance Last Documented On 1 4:43PM ; [facility] Discussed concerns about exe rcise : promote physical activity Last Documented On 1 4:34PM ; [facility] Patient goals discussed Last Documented On 4:43PM ; [facility] The patient's goal is to tonny t the blood sugars and bring in the results to each visit Last Documented On 4:43PM ; [facility] NOTE: pt reported any inform ation [facility] needed was available on the internet; she could access it. She did not intend to put any information in her medical record that was not necessary or otherwise avaiable. ~ ~Also, if she were depressed or anxious, she would tell someone. SHe is not. She did, however, answer questions that allowed [facility] to complete the PHQ9 Last Documented On 8:58PM ; [facility] Discussed nutritional needs teach healthy choices including fruits and vegetables Last Documented On 10:41AM ; [facility] Patient education about a pr oper diet Last Documented On 10:41AM ; [facility] Patient education about regu lar dental care Last Documented On 10:54AM ; [facility] Patient education about a ho nm blood glucose monitor with instructions to bring monitor to each visit Last Documented On 10:54AM ; [facility] Dietary counseling pertainin g to diabetes mellitus Last Documented On 10:54AM ; [facility] Patient education about diab etic foot care Last Documented On 10:54AM ; [facility] Inquiry and counseling about medication administration and compliance Last Documented On 10:54AM ; [facility] Discussed concerns about exe rcise : promote physical activity Last Documented On 10:41AM ; [facility] Patient goals discussed Last Documented On 10:54AM ; [facility] The patient's goal is to tonny t the blood sugars and bring in the results to each visit Last Documented On 10:54AM ; [facility] Work Phone: 1([phone]) 562-518811-02-2021 Instructions Includes: Instructions for all patient encounters Instructions to patient Maintain a healthy diet Last Documented On 4:43PM ; [facility] Maintain a healthy diet Last Documented On 1 10:54AM ; [facility] Education and Decision Aids were provided during visit for: Discussed nutritional needs teach healthy choices including fruits and vegetables Last Documented On 4 3:46PM ; [facility] Patient education about a pr oper diet Last Documented On 4 3:46PM ; [facility] Discussed concerns about exe rcise : promote physical activity ~ ~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 ~ ~LEVEMIR IS NOT AVAILABLE SO WILL [...] ~ Last Documented On 4 4:51PM ; [facility] Referred Patient to a Diabet es Self-Management Program Last Documented On 4 4:21PM ; [facility] Not requesting contraception Last Documented On 4 3:46PM ; [facility] Discussed nutritional needs teach healthy choices including fruits and vegetables Last Documented On 1 11:33AM ; [facility] Patient education about a pr oper diet Last Documented On 1 11:33AM ; [facility] Discussed concerns about exe rcise : promote physical activity ~ ~Follow up in one month Last Documented On 1 3:30PM ; [facility] Discussed nutritional needs teach healthy choices including fruits and vegetables Last Documented On 1 4:34PM ; [facility] Patient education about a pr oper diet Last Documented On 1 4:34PM ; [facility] Patient education about a ho nm blood glucose monitor with instructions to bring monitor to each visit Last Documented On 1 4:43PM ; [facility] Dietary counseling pertainin g to diabetes mellitus Last Documented On 1 4:43PM ; [facility] Patient education about diab etic foot care Last Documented On 1 4:43PM ; [facility] Inquiry and counseling about medication administration and compliance Last Documented On 4:43PM ; [facility] Discussed concerns about exe rcise : promote physical activity Last Documented On 4:34PM ; [facility] Patient goals discussed Last Documented On 4:43PM ; [facility] The patient's goal is to tonny t the blood sugars and bring in the results to each visit Last Documented On 4:43PM ; [facility] NOTE: pt reported any inform ation [facility] needed was available on the internet; she could access it. She did not intend to put any information in her medical record that was not necessary or otherwise avaiable. ~ ~Also, if she were depressed or anxious, she would tell someone. SHe is not. She did, however, answer questions that allowed [facility] to complete the PHQ9 Last Documented On 8:58PM ; [facility] Discussed nutritional needs teach healthy choices including fruits and vegetables Last Documented On 10:41AM ; [facility] Patient education about a pr oper diet Last Documented On 10:41AM ; [facility] Patient education about regu lar dental care Last Documented On 10:54AM ; [facility] Patient education about a ho me blood glucose monitor with instructions to bring monitor to each visit Last Documented On 10:54AM ; [facility] Dietary counseling pertainin g to diabetes mellitus Last Documented On 10:54AM ; [facility] Patient education about diab etic foot care Last Documented On 10:54AM ; [facility] Inquiry and counseling about medication administration and compliance Last Documented On 10:54AM ; [facility] Discussed concerns about exe rcise : promote physical activity Last Documented On 10:41AM ; [facility] Patient goals discussed Last Documented On 10:54AM ; [facility] The patient's goal is to tonny t the blood sugars and bring in the results to each visit Last Documented On 10:54AM ; [facility] Work Phone: 1([phone]) 412-379011-02-2021 Instructions Includes: Instructions for all patient encounters Instructions to patient Maintain a healthy diet Last Documented On 1 4:43PM ; [facility] Maintain a healthy diet Last Documented On 1 10:54AM ; [facility] Education and Decision Aids were provided during visit for: Discussed nutritional needs teach healthy choices including fruits and vegetables Last Documented On 4 2:49PM ; [facility] Patient education about a pr oper diet Last Documented On 4 2:49PM ; [facility] Discussed concerns about exe rcise : promote physical activity ~ ~Follow up in one month Last Documented On 4 8:14AM ; [facility] Referred Patient to a Diabet es Self-Management Program Last Documented On 4 2:55PM ; [facility] Discussed nutritional needs teach healthy choices including fruits and vegetables Last Documented On 4 3:46PM ; [facility] Patient education about a pr oper diet Last Documented On 4 3:46PM ; [facility] Discussed concerns about exe rcise : promote physical activity ~ ~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 ~ ~LEVEMIR IS NOT AVAILABLE SO WILL [...] ~ Last Documented On 4 4:51PM ; [facility] Referred Patient to a Diabet es Self-Management Program Last Documented On 4 4:21PM ; [facility] Not requesting contraception Last Documented On 4 3:46PM ; [facility] Discussed nutritional needs teach healthy choices including fruits and vegetables Last Documented On 1 11:33AM ; [facility] Patient education about a pr oper diet Last Documented On 1 11:33AM ; [facility] Discussed concerns about exe rcise : promote physical activity ~ ~Follow up in one month Last Documented On 3:30PM ; [facility] Discussed nutritional needs teach healthy choices including fruits and vegetables Last Documented On 4:34PM ; [facility] Patient education about a pr oper diet Last Documented On 4:34PM ; [facility] Patient education about a ho me blood glucose monitor with instructions to bring monitor to each visit Last Documented On 4:43PM ; [facility] Dietary counseling pertainin g to diabetes mellitus Last Documented On 4:43PM ; [facility] Patient education about diab etic foot care Last Documented On 4:43PM ; [facility] Inquiry and counseling about medication administration and compliance Last Documented On 4:43PM ; [facility] Discussed concerns about exe rcise : promote physical activity Last Documented On 4:34PM ; [facility] Patient goals discussed Last Documented On 4:43PM ; [facility] The patient's goal is to tonny t the blood sugars and bring in the results to each visit Last Documented On 4:43PM ; [facility] NOTE: pt reported any inform ation [facility] needed was available on the internet; she could access it. She did not intend to put any information in her medical record that was not necessary or otherwise avaiable. ~ ~Also, if she were depressed or anxious, she would tell someone. SHe is not. She did, however, answer questions that allowed [facility] to complete the PHQ9 Last Documented On 8:58PM ; [facility] Discussed nutritional needs teach healthy choices including fruits and vegetables Last Documented On 10:41AM ; [facility] Patient education about a pr oper diet Last Documented On 10:41AM ; [facility] Patient education about regu lar dental care Last Documented On 10:54AM ; [facility] Patient education about a ho me blood glucose monitor with instructions to bring monitor to each visit Last Documented On 10:54AM ; [facility] Dietary counseling pertainin g to diabetes mellitus Last Documented On 1 10:54AM ; [facility] Patient education about diab etic foot care Last Documented On 10:54AM ; [facility] Inquiry and counseling about medication administration and compliance Last Documented On 10:54AM ; [facility] Discussed concerns about exe rcise : promote physical activity Last Documented On 10:41AM ; [facility] Patient goals discussed Last Documented On 10:54AM ; [facility] The patient's goal is to tonny t the blood sugars and bring in the results to each visit Last Documented On 10:54AM ; [facility] Work Phone: [phone] 163-462011-02-2021 Instructions Includes: Instructions for all patient encounters Instructions to patient Maintain a healthy diet Last Documented On 1 4:43PM ; [facility] Maintain a healthy diet Last Documented On 10:54AM ; [facility] Education and Decision Aids were provided during visit for: Discussed nutritional needs teach healthy choices including fruits and vegetables Last Documented On 5 3:16PM ; [facility] Patient education about a pr oper diet Last Documented On 5 3:16PM ; [facility] Discussed concerns about exe rcise : promote physical activity ~ ~Discussed following up with spinal specialist ~ ~Continue to take diabetic medication at same dose Last Documented On 5 9:28AM ; [facility] Not requesting contraception Last Documented On 5 3:16PM ; [facility] Discussed nutritional needs teach healthy choices including fruits and vegetables Last Documented On 4 2:49PM ; [facility] Patient education about a pr oper diet Last Documented On 4 2:49PM ; [facility] Discussed concerns about exe rcise : promote physical activity ~ ~Follow up in one month Last Documented On 4 8:14AM ; [facility] Referred Patient to a Diabet es Self-Management Program Last Documented On 4 2:55PM ; [facility] Discussed nutritional needs teach healthy choices including fruits and vegetables Last Documented On 4 3:46PM ; [facility] Patient education about a pr oper diet Last Documented On 4 3:46PM ; [facility] Discussed concerns about exe rcise : promote physical activity ~ ~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 ~ ~LEVEMIR IS NOT AVAILABLE SO WILL [...] ~ Last Documented On 4 4:51PM ; [facility] Referred Patient to a Diabet es Self-Management Program Last Documented On 4 4:21PM ; [facility] Not requesting contraception Last Documented On 4 3:46PM ; [facility] Discussed nutritional needs teach healthy choices including fruits and vegetables Last Documented On 1 11:33AM ; [facility] Patient education about a pr oper diet Last Documented On 1 11:33AM ; [facility] Discussed concerns about exe rcise : promote physical activity ~ ~Follow up in one month Last Documented On 1 3:30PM ; [facility] Discussed nutritional needs teach healthy choices including fruits and vegetables Last Documented On 1 4:34PM ; [facility] Patient education about a pr oper diet Last Documented On 1 4:34PM ; [facility] Patient education about a ho me blood glucose monitor with instructions to bring monitor to each visit Last Documented On 1 4:43PM ; [facility] Dietary counseling pertainin g to diabetes mellitus Last Documented On 1 4:43PM ; [facility] Patient education about diab etic foot care Last Documented On 1 4:43PM ; [facility] Inquiry and counseling about medication administration and compliance Last Documented On 1 4:43PM ; [facility] Discussed concerns about exe rcise : promote physical activity Last Documented On 4:34PM ; [facility] Patient goals discussed Last Documented On 4:43PM ; [facility] The patient's goal is to tonny t the blood sugars and bring in the results to each visit Last Documented On 4:43PM ; [facility] NOTE: pt reported any inform ation [facility] needed was available on the internet; she could access it. She did not intend to put any information in her medical record that was not necessary or otherwise avaiable. ~ ~Also, if she were depressed or anxious, she would tell someone. SHe is not. She did, however, answer questions that allowed [facility] to complete the PHQ9 Last Documented On 8:58PM ; [facility] Discussed nutritional needs teach healthy choices including fruits and vegetables Last Documented On 10:41AM ; [facility] Patient education about a pr oper diet Last Documented On 10:41AM ; [facility] Patient education about regu lar dental care Last Documented On 10:54AM ; [facility] Patient education about a ho me blood glucose monitor with instructions to bring monitor to each visit Last Documented On 10:54AM ; [facility] Dietary counseling pertainin g to diabetes mellitus Last Documented On 10:54AM ; [facility] Patient education about diab etic foot care Last Documented On 10:54AM ; [facility] Inquiry and counseling about medication administration and compliance Last Documented On 10:54AM ; [facility] Discussed concerns about exe rcise : promote physical activity Last Documented On 10:41AM ; [facility] Patient goals discussed Last Documented On 10:54AM ; [facility] The patient's goal is to tonny t the blood sugars and bring in the results to each visit Last Documented On 10:54AM ; [facility] Work Phone: [phone] 825-857811-02-2021 Instructions Includes: Instructions for all patient encounters Instructions to patient Maintain a healthy diet Last Documented On 1 4:43PM ; [facility] Maintain a healthy diet Last Documented On 1 10:54AM ; [facility] Education and Decision Aids were provided during visit for: Discussed nutritional needs teach healthy choices including fruits and vegetables Last Documented On 5 3:16PM ; [facility] Patient education about a pr oper diet Last Documented On 5 3:16PM ; [facility] Discussed concerns about exe rcise : promote physical activity ~ ~Discussed following up with spinal specialist ~ ~Continue to take diabetic medication at same dose Last Documented On 5 9:28AM ; [facility] Not requesting contraception Last Documented On 5 3:16PM ; [facility] Discussed nutritional needs teach healthy choices including fruits and vegetables Last Documented On 4 2:49PM ; [facility] Patient education about a pr oper diet Last Documented On 4 2:49PM ; [facility] Discussed concerns about exe rcise : promote physical activity ~ ~Follow up in one month Last Documented On 4 8:14AM ; [facility] Referred Patient to a Diabet es Self-Management Program Last Documented On 4 2:55PM ; [facility] Discussed nutritional needs teach healthy choices including fruits and vegetables Last Documented On 4 3:46PM ; [facility] Patient education about a pr oper diet Last Documented On 4 3:46PM ; [facility] Discussed concerns about exe rcise : promote physical activity ~ ~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 ~ ~LEVEMIR IS NOT AVAILABLE SO WILL [...] ~ Last Documented On 4 4:51PM ; [facility] Referred Patient to a Diabet es Self-Management Program Last Documented On 4 4:21PM ; [facility] Not requesting contraception Last Documented On 4 3:46PM ; [facility] Discussed nutritional needs teach healthy choices including fruits and vegetables Last Documented On 1 11:33AM ; [facility] Patient education about a pr oper diet Last Documented On 11:33AM ; [facility] Discussed concerns about exe rcise : promote physical activity ~ ~Follow up in one month Last Documented On 1 3:30PM ; [facility] Discussed nutritional needs teach healthy choices including fruits and vegetables Last Documented On 4:34PM ; [facility] Patient education about a pr oper diet Last Documented On 4:34PM ; [facility] Patient education about a ho me blood glucose monitor with instructions to bring monitor to each visit Last Documented On 4:43PM ; [facility] Dietary counseling pertainin g to diabetes mellitus Last Documented On 4:43PM ; [facility] Patient education about diab etic foot care Last Documented On 1 4:43PM ; [facility] Inquiry and counseling about medication administration and compliance Last Documented On 4:43PM ; [facility] Discussed concerns about exe rcise : promote physical activity Last Documented On 4:34PM ; [facility] Patient goals discussed Last Documented On 4:43PM ; [facility] The patient's goal is to tonny t the blood sugars and bring in the results to each visit Last Documented On 4:43PM ; [facility] NOTE: pt reported any inform ation [facility] needed was available on the internet; she could access it. She did not intend to put any information in her medical record that was not necessary or otherwise avaiable. ~ ~Also, if she were depressed or anxious, she would tell someone. SHe is not. She did, however, answer questions that allowed [facility] to complete the PHQ9 Last Documented On 1 8:58PM ; [facility] Discussed nutritional needs teach healthy choices including fruits and vegetables Last Documented On 10:41AM ; [facility] Patient education about a pr oper diet Last Documented On 10:41AM ; [facility] Patient education about regu lar dental care Last Documented On 10:54AM ; [facility] Patient education about a ho me blood glucose monitor with instructions to bring monitor to each visit Last Documented On 10:54AM ; [facility] Dietary counseling pertainin g to diabetes mellitus Last Documented On 10:54AM ; [facility] Patient education about diab etic foot care Last Documented On 10:54AM ; [facility] Inquiry and counseling about medication administration and compliance Last Documented On 10:54AM ; [facility] Discussed concerns about exe rcise : promote physical activity Last Documented On 10:41AM ; [facility] Patient goals discussed Last Documented On 10:54AM ; [facility] The patient's goal is to tonny t the blood sugars and bring in the results to each visit Last Documented On 10:54AM ; [facility] Work Phone: [phone]) 887-795411-02-2021 Instructions Includes: Instructions for all patient encounters Instructions to patient Maintain a healthy diet Last Documented On 4:43PM ; [facility] Maintain a healthy diet Last Documented On 10:54AM ; [facility] Education and Decision Aids were provided during visit for: Discussed nutritional needs teach healthy choices including fruits and vegetables Last Documented On 5 3:11PM ; [facility] Patient education about a pr oper diet Last Documented On 5 3:11PM ; [facility] Discussed concerns about exe rcise : promote physical activity Last Documented On 5 3:11PM ; [facility] Discussed nutritional needs teach healthy choices including fruits and vegetables Last Documented On 5 3:16PM ; [facility] Patient education about a pr oper diet Last Documented On 5 3:16PM ; [facility] Discussed concerns about exe rcise : promote physical activity ~ ~Discussed following up with spinal specialist ~ ~Continue to take diabetic medication at same dose Last Documented On 5 9:28AM ; [facility] Referred Patient to a Diabet es Self-Management Program Last Documented On 5 3:43PM ; [facility] Not requesting contraception Last Documented On 5 3:16PM ; [facility] Discussed nutritional needs teach healthy choices including fruits and vegetables Last Documented On 4 2:49PM ; [facility] Patient education about a pr oper diet Last Documented On 4 2:49PM ; [facility] Discussed concerns about exe rcise : promote physical activity ~ ~Follow up in one month Last Documented On 4 8:14AM ; [facility] Referred Patient to a Diabet es Self-Management Program Last Documented On 4 2:55PM ; [facility] Discussed nutritional needs teach healthy choices including fruits and vegetables Last Documented On 4 3:46PM ; [facility] Patient education about a pr oper diet Last Documented On 4 3:46PM ; [facility] Discussed concerns about exe rcise : promote physical activity ~ ~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 ~ ~LEVEMIR IS NOT AVAILABLE SO WILL [...] ~ Last Documented On 4 4:51PM ; [facility] Referred Patient to a Diabet es Self-Management Program Last Documented On 4 4:21PM ; [facility] Not requesting contraception Last Documented On 4 3:46PM ; [facility] Discussed nutritional needs teach healthy choices including fruits and vegetables Last Documented On 1 11:33AM ; [facility] Patient education about a pr oper diet Last Documented On 11:33AM ; [facility] Discussed concerns about exe rcise : promote physical activity ~ ~Follow up in one month Last Documented On 3:30PM ; [facility] Discussed nutritional needs teach healthy choices including fruits and vegetables Last Documented On 4:34PM ; [facility] Patient education about a pr oper diet Last Documented On 4:34PM ; [facility] Patient education about a ho me blood glucose monitor with instructions to bring monitor to each visit Last Documented On 4:43PM ; [facility] Dietary counseling pertainin g to diabetes mellitus Last Documented On 4:43PM ; [facility] Patient education about diab etic foot care Last Documented On 4:43PM ; [facility] Inquiry and counseling about medication administration and compliance Last Documented On 4:43PM ; [facility] Discussed concerns about exe rcise : promote physical activity Last Documented On 4:34PM ; [facility] Patient goals discussed Last Documented On 4:43PM ; [facility] The patient's goal is to tonny t the blood sugars and bring in the results to each visit Last Documented On 4:43PM ; [facility] NOTE: pt reported any inform ation [facility] needed was available on the internet; she could access it. She did not intend to put any information in her medical record that was not necessary or otherwise avaiable. ~ ~Also, if she were depressed or anxious, she would tell someone. SHe is not. She did, however, answer questions that allowed [facility] to complete the PHQ9 Last Documented On 8:58PM ; [facility] Discussed nutritional needs teach healthy choices including fruits and vegetables Last Documented On 10:41AM ; [facility] Patient education about a pr oper diet Last Documented On 10:41AM ; [facility] Patient education about regu lar dental care Last Documented On 10:54AM ; [facility] Patient education about a ho me blood glucose monitor with instructions to bring monitor to each visit Last Documented On 10:54AM ; [facility] Dietary counseling pertainin g to diabetes mellitus Last Documented On 10:54AM ; [facility] Patient education about diab etic foot care Last Documented On 10:54AM ; [facility] Inquiry and counseling about medication administration and compliance Last Documented On 10:54AM ; [facility] Discussed concerns about exe rcise : promote physical activity Last Documented On 10:41AM ; [facility] Patient goals discussed Last Documented On 10:54AM ; [facility] The patient's goal is to tonny t the blood sugars and bring in the results to each visit Last Documented On 10:54AM ; [facility] Work Phone: [phone]) 999-622311-02-2021 Instructions Includes: Instructions for all patient encounters Instructions to patient Maintain a healthy diet Last Documented On 1 4:43PM ; [facility] Maintain a healthy diet Last Documented On 10:54AM ; [facility] Education and Decision Aids were provided during visit for: Discussed nutritional needs teach healthy choices including fruits and vegetables Last Documented On 5 3:11PM ; [facility] Patient education about a pr oper diet Last Documented On 5 3:11PM ; [facility] Discussed concerns about exe rcise : promote physical activity Last Documented On 5 3:11PM ; [facility] Discussed nutritional needs teach healthy choices including fruits and vegetables Last Documented On 5 3:16PM ; [facility] Patient education about a pr oper diet Last Documented On 5 3:16PM ; [facility] Discussed concerns about exe rcise : promote physical activity ~ ~Discussed following up with spinal specialist ~ ~Continue to take diabetic medication at same dose Last Documented On 5 9:28AM ; [facility] Referred Patient to a Diabet es Self-Management Program Last Documented On 5 3:43PM ; [facility] Not requesting contraception Last Documented On 5 3:16PM ; [facility] Discussed nutritional needs teach healthy choices including fruits and vegetables Last Documented On 4 2:49PM ; [facility] Patient education about a pr oper diet Last Documented On 4 2:49PM ; [facility] Discussed concerns about exe rcise : promote physical activity ~ ~Follow up in one month Last Documented On 4 8:14AM ; [facility] Referred Patient to a Diabet es Self-Management Program Last Documented On 4 2:55PM ; [facility] Discussed nutritional needs teach healthy choices including fruits and vegetables Last Documented On 4 3:46PM ; [facility] Patient education about a pr oper diet Last Documented On 4 3:46PM ; [facility] Discussed concerns about exe rcise : promote physical activity ~ ~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 ~ ~LEVEMIR IS NOT AVAILABLE SO WILL [...] ~ Last Documented On 4 4:51PM ; [facility] Referred Patient to a Diabet es Self-Management Program Last Documented On 4 4:21PM ; [facility] Not requesting contraception Last Documented On 4 3:46PM ; [facility] Discussed nutritional needs teach healthy choices including fruits and vegetables Last Documented On 1 11:33AM ; [facility] Patient education about a pr oper diet Last Documented On 1 11:33AM ; [facility] Discussed concerns about exe rcise : promote physical activity ~ ~Follow up in one month Last Documented On 1 3:30PM ; [facility] Discussed nutritional needs teach healthy choices including fruits and vegetables Last Documented On 1 4:34PM ; [facility] Patient education about a pr oper diet Last Documented On 4:34PM ; [facility] Patient education about a ho me blood glucose monitor with instructions to bring monitor to each visit Last Documented On 4:43PM ; [facility] Dietary counseling pertainin g to diabetes mellitus Last Documented On 4:43PM ; [facility] Patient education about diab etic foot care Last Documented On 4:43PM ; [facility] Inquiry and counseling about medication administration and compliance Last Documented On 4:43PM ; [facility] Discussed concerns about exe rcise : promote physical activity Last Documented On 4:34PM ; [facility] Patient goals discussed Last Documented On 4:43PM ; [facility] The patient's goal is to tonny t the blood sugars and bring in the results to each visit Last Documented On 4:43PM ; [facility] NOTE: pt reported any inform ation [facility] needed was available on the internet; she could access it. She did not intend to put any information in her medical record that was not necessary or otherwise avaiable. ~ ~Also, if she were depressed or anxious, she would tell someone. SHe is not. She did, however, answer questions that allowed [facility] to complete the PHQ9 Last Documented On 8:58PM ; [facility] Discussed nutritional needs teach healthy choices including fruits and vegetables Last Documented On 10:41AM ; [facility] Patient education about a pr oper diet Last Documented On 10:41AM ; [facility] Patient education about regu lar dental care Last Documented On 10:54AM ; [facility] Patient education about a ho me blood glucose monitor with instructions to bring monitor to each visit Last Documented On 10:54AM ; [facility] Dietary counseling pertainin g to diabetes mellitus Last Documented On 10:54AM ; [facility] Patient education about diab etic foot care Last Documented On 10:54AM ; [facility] Inquiry and counseling about medication administration and compliance Last Documented On 1 10:54AM ; [facility] Discussed concerns about exe rcise : promote physical activity Last Documented On 1 10:41AM ; [facility] Patient goals discussed Last Documented On 1 10:54AM ; [facility] The patient's goal is to tonny t the blood sugars and bring in the results to each visit Last Documented On 1 10:54AM ; [facility] Work Phone: [phone] 832-412711-02-2021 Instructions Includes: Instructions for all patient encounters Instructions to patient Maintain a healthy diet Last Documented On 1 4:43PM ; [facility] Maintain a healthy diet Last Documented On 1 10:54AM ; [facility] Education and Decision Aids were provided during visit for: Discussed nutritional needs teach healthy choices including fruits and vegetables Last Documented On 5 3:11PM ; [facility] Patient education about a pr oper diet Last Documented On 5 3:11PM ; [facility] Discussed concerns about exe rcise : promote physical activity ~ ~Follow up after ER visit Last Documented On 5 4:59PM ; [facility] Discussed nutritional needs teach healthy choices including fruits and vegetables Last Documented On 5 3:16PM ; [facility] Patient education about a pr oper diet Last Documented On 5 3:16PM ; [facility] Discussed concerns about exe rcise : promote physical activity ~ ~Discussed following up with spinal specialist ~ ~Continue to take diabetic medication at same dose Last Documented On 5 9:28AM ; [facility] Referred Patient to a Diabet es Self-Management Program Last Documented On 5 3:43PM ; [facility] Not requesting contraception Last Documented On 5 3:16PM ; [facility] Discussed nutritional needs teach healthy choices including fruits and vegetables Last Documented On 4 2:49PM ; [facility] Patient education about a pr oper diet Last Documented On 4 2:49PM ; [facility] Discussed concerns about exe rcise : promote physical activity ~ ~Follow up in one month Last Documented On 4 8:14AM ; [facility] Referred Patient to a Diabet es Self-Management Program Last Documented On 4 2:55PM ; [facility] Discussed nutritional needs teach healthy choices including fruits and vegetables Last Documented On 4 3:46PM ; [facility] Patient education about a pr oper diet Last Documented On 4 3:46PM ; [facility] Discussed concerns about exe rcise : promote physical activity ~ ~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 ~ ~LEVEMIR IS NOT AVAILABLE SO WILL [...] ~ Last Documented On 4 4:51PM ; [facility] Referred Patient to a Diabet es Self-Management Program Last Documented On 4 4:21PM ; [facility] Not requesting contraception Last Documented On 4 3:46PM ; [facility] Discussed nutritional needs teach healthy choices including fruits and vegetables Last Documented On 1 11:33AM ; [facility] Patient education about a pr oper diet Last Documented On 1 11:33AM ; [facility] Discussed concerns about exe rcise : promote physical activity ~ ~Follow up in one month Last Documented On 1 3:30PM ; [facility] Discussed nutritional needs teach healthy choices including fruits and vegetables Last Documented On 1 4:34PM ; [facility] [facility] Patient education about a pr oper diet Last Documented On 1 4:34PM ; [facility] Patient education about a ho me blood glucose monitor with instructions to bring monitor to each visit Last Documented On 1 4:43PM ; [facility] Dietary counseling pertainin g to diabetes mellitus Last Documented On 4:43PM ; [facility] Patient education about diab etic foot care Last Documented On 4:43PM ; [facility] Inquiry and counseling about medication administration and compliance Last Documented On 4:43PM ; [facility] Discussed concerns about exe rcise : promote physical activity Last Documented On 4:34PM ; [facility] Patient goals discussed Last Documented On 4:43PM ; [facility] The patient's goal is to tonny t the blood sugars and bring in the results to each visit Last Documented On 4:43PM ; [facility] NOTE: pt reported any inform ation [facility] needed was available on the internet; she could access it. She did not intend to put any information in her medical record that was not necessary or otherwise avaiable. ~ ~Also, if she were depressed or anxious, she would tell someone. SHe is not. She did, however, answer questions that allowed [facility] to complete the PHQ9 Last Documented On 8:58PM ; [facility] Discussed nutritional needs teach healthy choices including fruits and vegetables Last Documented On 10:41AM ; [facility] Patient education about a pr oper diet Last Documented On 10:41AM ; [facility] Patient education about regu lar dental care Last Documented On 10:54AM ; [facility] Patient education about a ho nm blood glucose monitor with instructions to bring monitor to each visit Last Documented On 10:54AM ; [facility] Dietary counseling pertainin g to diabetes mellitus Last Documented On 10:54AM ; [facility] Patient education about diab etic foot care Last Documented On 10:54AM ; [facility] Inquiry and counseling about medication administration and compliance Last Documented On 10:54AM ; [facility] Discussed concerns about exe rcise : promote physical activity Last Documented On 10:41AM ; [facility] Patient goals discussed Last Documented On 10:54AM ; [facility] The patient's goal is to tonny t the blood sugars and bring in the results to each visit Last Documented On 1 10:54AM ; [facility] Work Phone: [phone]) 720-811511-02-2021 Instructions Includes: Instructions for all patient encounters Instructions to patient Maintain a healthy diet Last Documented On 1 4:43PM ; [facility] Maintain a healthy diet Last Documented On 1 10:54AM ; [facility] Education and Decision Aids were provided during visit for: Discussed nutritional needs teach healthy choices including fruits and vegetables Last Documented On 5 12:19PM ; [facility] Patient education about a pr oper diet Last Documented On 5 12:19PM ; [facility] Discussed concerns about exe rcise : promote physical activity ~ ~Follow up after ER visit Last Documented On 5 2:10PM ; [facility] Discussed nutritional needs teach healthy choices including fruits and vegetables Last Documented On 5 3:11PM ; [facility] Patient education about a pr oper diet Last Documented On 5 3:11PM ; [facility] Discussed concerns about exe rcise : promote physical activity ~ ~Follow up after ER visit Last Documented On 5 4:59PM ; [facility] Discussed nutritional needs teach healthy choices including fruits and vegetables Last Documented On 5 3:16PM ; [facility] Patient education about a pr oper diet Last Documented On 5 3:16PM ; [facility] Discussed concerns about exe rcise : promote physical activity ~ ~Discussed following up with spinal specialist ~ ~Continue to take diabetic medication at same dose Last Documented On 5 9:28AM ; [facility] Referred Patient to a Diabet es Self-Management Program Last Documented On 5 3:43PM ; [facility] Not requesting contraception Last Documented On 5 3:16PM ; [facility] Discussed nutritional needs teach healthy choices including fruits and vegetables Last Documented On 4 2:49PM ; [facility] Patient education about a pr oper diet Last Documented On 4 2:49PM ; [facility] Discussed concerns about exe rcise : promote physical activity ~ ~Follow up in one month Last Documented On 4 8:14AM ; [facility] Referred Patient to a Diabet es Self-Management Program Last Documented On 4 2:55PM ; [facility] Discussed nutritional needs teach healthy choices including fruits and vegetables Last Documented On 4 3:46PM ; [facility] Patient education about a pr oper diet Last Documented On 4 3:46PM ; [facility] Discussed concerns about exe rcise : promote physical activity ~ ~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 ~ ~LEVEMIR IS NOT AVAILABLE SO WILL [...] ~ Last Documented On 4 4:51PM ; [facility] Referred Patient to a Diabet es Self-Management Program Last Documented On 4 4:21PM ; [facility] Not requesting contraception Last Documented On 4 3:46PM ; [facility] Discussed nutritional needs teach healthy choices including fruits and vegetables Last Documented On 1 11:33AM ; [facility] Patient education about a pr oper diet Last Documented On 1 11:33AM ; [facility] Discussed concerns about exe rcise : promote physical activity ~ ~Follow up in one month Last Documented On 1 3:30PM ; [facility] Discussed nutritional needs teach healthy choices including fruits and vegetables Last Documented On 1 4:34PM ; [facility] Patient education about a pr oper diet Last Documented On 1 4:34PM ; [facility] Patient education about a ho nm blood glucose monitor with instructions to bring monitor to each visit Last Documented On 1 4:43PM ; [facility] Dietary counseling pertainin g to diabetes mellitus Last Documented On 4:43PM ; [facility] Patient education about diab etic foot care Last Documented On 4:43PM ; [facility] Inquiry and counseling about medication administration and compliance Last Documented On 4:43PM ; [facility] Discussed concerns about exe rcise : promote physical activity Last Documented On 4:34PM ; [facility] Patient goals discussed Last Documented On 4:43PM ; [facility] The patient's goal is to tonny t the blood sugars and bring in the results to each visit Last Documented On 4:43PM ; [facility] NOTE: pt reported any inform ation [facility] needed was available on the internet; she could access it. She did not intend to put any information in her medical record that was not necessary or otherwise avaiable. ~ ~Also, if she were depressed or anxious, she would tell someone. SHe is not. She did, however, answer questions that allowed [facility] to complete the PHQ9 Last Documented On 8:58PM ; [facility] Discussed nutritional needs teach healthy choices including fruits and vegetables Last Documented On 10:41AM ; [facility] Patient education about a pr oper diet Last Documented On 10:41AM ; [facility] Patient education about regu lar dental care Last Documented On 10:54AM ; [facility] Patient education about a ho nm blood glucose monitor with instructions to bring monitor to each visit Last Documented On 10:54AM ; [facility] Dietary counseling pertainin g to diabetes mellitus Last Documented On 10:54AM ; [facility] Patient education about diab etic foot care Last Documented On 10:54AM ; [facility] Inquiry and counseling about medication administration and compliance Last Documented On 10:54AM ; [facility] Discussed concerns about exe rcise : promote physical activity Last Documented On 10:41AM ; [facility] Patient goals discussed Last Documented On 1 10:54AM ; [facility] The patient's goal is to tonny t the blood sugars and bring in the results to each visit Last Documented On 1 10:54AM ; [facility] Work Phone: [phone] 484-869911-02-2021 Instructions Includes: Instructions for all patient encounters Instructions to patient Maintain a healthy diet Last Documented On 1 4:43PM ; [facility] Maintain a healthy diet Last Documented On 1 10:54AM ; [facility] Education and Decision Aids were provided during visit for: Discussed nutritional needs teach healthy choices including fruits and vegetables Last Documented On 5 9:31AM ; [facility] Patient education about a pr oper diet Last Documented On 5 9:31AM ; [facility] Discussed concerns about exe rcise : promote physical activity Last Documented On 5 9:31AM ; [facility] Discussed nutritional needs teach healthy choices including fruits and vegetables Last Documented On 5 12:19PM ; [facility] Patient education about a pr oper diet Last Documented On 5 12:19PM ; [facility] Discussed concerns about exe rcise : promote physical activity ~ ~Follow up after ER visit Last Documented On 5 2:10PM ; [facility] Discussed nutritional needs teach healthy choices including fruits and vegetables Last Documented On 5 3:11PM ; [facility] Patient education about a pr oper diet Last Documented On 5 3:11PM ; [facility] Discussed concerns about exe rcise : promote physical activity ~ ~Follow up after ER visit Last Documented On 5 4:59PM ; [facility] Discussed nutritional needs teach healthy choices including fruits and vegetables Last Documented On 5 3:16PM ; [facility] Patient education about a pr oper diet Last Documented On 5 3:16PM ; [facility] Discussed concerns about exe rcise : promote physical activity ~ ~Discussed following up with spinal specialist ~ ~Continue to take diabetic medication at same dose Last Documented On 5 9:28AM ; [facility] Referred Patient to a Diabet es Self-Management Program Last Documented On 5 3:43PM ; [facility] Not requesting contraception Last Documented On 5 3:16PM ; [facility] Discussed nutritional needs teach healthy choices including fruits and vegetables Last Documented On 4 2:49PM ; [facility] Patient education about a pr oper diet Last Documented On 4 2:49PM ; [facility] Discussed concerns about exe rcise : promote physical activity ~ ~Follow up in one month Last Documented On 4 8:14AM ; [facility] Referred Patient to a Diabet es Self-Management Program Last Documented On 4 2:55PM ; [facility] Discussed nutritional needs teach healthy choices including fruits and vegetables Last Documented On 4 3:46PM ; [facility] Patient education about a pr oper diet Last Documented On 4 3:46PM ; [facility] Discussed concerns about exe rcise : promote physical activity ~ ~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 ~ ~LEVEMIR IS NOT AVAILABLE SO WILL [...] ~ Last Documented On 4 4:51PM ; [facility] Referred Patient to a Diabet es Self-Management Program Last Documented On 4 4:21PM ; [facility] Not requesting contraception Last Documented On 4 3:46PM ; [facility] Discussed nutritional needs teach healthy choices including fruits and vegetables Last Documented On 1 11:33AM ; [facility] Patient education about a pr oper diet Last Documented On 1 11:33AM ; [facility] Discussed concerns about exe rcise : promote physical activity ~ ~Follow up in one month Last Documented On 3:30PM ; [facility] Discussed nutritional needs teach healthy choices including fruits and vegetables Last Documented On 4:34PM ; [facility] Patient education about a pr oper diet Last Documented On 4:34PM ; [facility] Patient education about a ho me blood glucose monitor with instructions to bring monitor to each visit Last Documented On 4:43PM ; [facility] Dietary counseling pertainin g to diabetes mellitus Last Documented On 4:43PM ; [facility] Patient education about diab etic foot care Last Documented On 4:43PM ; [facility] Inquiry and counseling about medication administration and compliance Last Documented On 4:43PM ; [facility] Discussed concerns about exe rcise : promote physical activity Last Documented On 4:34PM ; [facility] Patient goals discussed Last Documented On 4:43PM ; [facility] The patient's goal is to tonny t the blood sugars and bring in the results to each visit Last Documented On 4:43PM ; [facility] NOTE: pt reported any inform ation [facility] needed was available on the internet; she could access it. She did not intend to put any information in her medical record that was not necessary or otherwise avaiable. ~ ~Also, if she were depressed or anxious, she would tell someone. SHe is not. She did, however, answer questions that allowed [facility] to complete the PHQ9 Last Documented On 8:58PM ; [facility] Discussed nutritional needs teach healthy choices including fruits and vegetables Last Documented On 10:41AM ; [facility] Patient education about a pr oper diet Last Documented On 10:41AM ; [facility] Patient education about regu lar dental care Last Documented On 10:54AM ; [facility] Patient education about a ho me blood glucose monitor with instructions to bring monitor to each visit Last Documented On 10:54AM ; [facility] Dietary counseling pertainin g to diabetes mellitus Last Documented On 10:54AM ; [facility] Patient education about diab etic foot care Last Documented On 10:54AM ; [facility] Inquiry and counseling about medication administration and compliance Last Documented On 10:54AM ; [facility] Discussed concerns about exe rcise : promote physical activity Last Documented On 10:41AM ; [facility] Patient goals discussed Last Documented On 10:54AM ; [facility] The patient's goal is to tonny t the blood sugars and bring in the results to each visit Last Documented On 10:54AM ; [facility] Work Phone: [phone] 686-305211-02-2021 Instructions Includes: Instructions for all patient encounters Instructions to patient Maintain a healthy diet Last Documented On 4:43PM ; [facility] Maintain a healthy diet Last Documented On 10:54AM ; [facility] Education and Decision Aids were provided during visit for: Discussed nutritional needs teach healthy choices including fruits and vegetables Last Documented On 5 3:03PM ; [facility] Patient education about a pr oper diet Last Documented On 5 3:03PM ; [facility] Discussed concerns about exe rcise : promote physical activity ~ ~Continue to follow up with orthopedics ~ ~Follow up for hgba1c in one month Last Documented On 5 9:04PM ; [facility] Referred Patient to a Diabet es Self-Management Program Last Documented On 5 3:16PM ; [facility] Discussed nutritional needs teach healthy choices including fruits and vegetables Last Documented On 5 9:31AM ; [facility] Patient education about a pr oper diet Last Documented On 5 9:31AM ; [facility] Discussed concerns about exe rcise : promote physical activity Last Documented On 5 9:31AM ; [facility] Discussed nutritional needs teach healthy choices including fruits and vegetables Last Documented On 5 12:19PM ; [facility] Patient education about a pr oper diet Last Documented On 5 12:19PM ; [facility] Discussed concerns about exe rcise : promote physical activity ~ ~Follow up after ER visit Last Documented On 5 2:10PM ; [facility] Discussed nutritional needs teach healthy choices including fruits and vegetables Last Documented On 5 3:11PM ; [facility] Patient education about a pr oper diet Last Documented On 5 3:11PM ; [facility] Discussed concerns about exe rcise : promote physical activity ~ ~Follow up after ER visit Last Documented On 5 4:59PM ; [facility] Discussed nutritional needs teach healthy choices including fruits and vegetables Last Documented On 5 3:16PM ; [facility] Patient education about a pr oper diet Last Documented On 5 3:16PM ; [facility] Discussed concerns about exe rcise : promote physical activity ~ ~Discussed following up with spinal specialist ~ ~Continue to take diabetic medication at same dose Last Documented On 5 9:28AM ; [facility] Referred Patient to a Diabet es Self-Management Program Last Documented On 5 3:43PM ; [facility] Not requesting contraception Last Documented On 5 3:16PM ; [facility] Discussed nutritional needs teach healthy choices including fruits and vegetables Last Documented On 4 2:49PM ; [facility] Patient education about a pr oper diet Last Documented On 4 2:49PM ; [facility] Discussed concerns about exe rcise : promote physical activity ~ ~Follow up in one month Last Documented On 4 8:14AM ; [facility] Referred Patient to a Diabet es Self-Management Program Last Documented On 4 2:55PM ; [facility] Discussed nutritional needs teach healthy choices including fruits and vegetables Last Documented On 4 3:46PM ; [facility] Patient education about a pr oper diet Last Documented On 4 3:46PM ; [facility] Discussed concerns about exe rcise : promote physical activity ~ ~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 ~ ~LEVEMIR IS NOT AVAILABLE SO WILL [...] ~ Last Documented On 4 4:51PM ; [facility] Referred Patient to a Diabet es Self-Management Program Last Documented On 4 4:21PM ; [facility] Not requesting contraception Last Documented On 4 3:46PM ; [facility] Discussed nutritional needs teach healthy choices including fruits and vegetables Last Documented On 1 11:33AM ; [facility] Patient education about a pr oper diet Last Documented On 1 11:33AM ; [facility] Discussed concerns about exe rcise : promote physical activity ~ ~Follow up in one month Last Documented On 1 3:30PM ; [facility] Discussed nutritional needs teach healthy choices including fruits and vegetables Last Documented On 1 4:34PM ; [facility] Patient education about a pr oper diet Last Documented On 1 4:34PM ; [facility] Patient education about a ho me blood glucose monitor with instructions to bring monitor to each visit Last Documented On 1 4:43PM ; [facility] Dietary counseling pertainin g to diabetes mellitus Last Documented On 1 4:43PM ; [facility] Patient education about diab etic foot care Last Documented On 1 4:43PM ; [facility] Inquiry and counseling about medication administration and compliance Last Documented On 1 4:43PM ; [facility] Discussed concerns about exe rcise : promote physical activity Last Documented On 1 4:34PM ; [facility] Patient goals discussed Last Documented On 1 4:43PM ; [facility] The patient's goal is to tonny t the blood sugars and bring in the results to each visit Last Documented On 4:43PM ; [facility] NOTE: pt reported any inform ation [facility] needed was available on the internet; she could access it. She did not intend to put any information in her medical record that was not necessary or otherwise avaiable. ~ ~Also, if she were depressed or anxious, she would tell someone. SHe is not. She did, however, answer questions that allowed P to complete the PHQ9 Last Documented On 8:58PM ; [facility] Discussed nutritional needs teach healthy choices including fruits and vegetables Last Documented On 10:41AM ; [facility] Patient education about a pr oper diet Last Documented On 10:41AM ; [facility] Patient education about regu lar dental care Last Documented On 10:54AM ; [facility] Patient education about a ho me blood glucose monitor with instructions to bring monitor to each visit Last Documented On 10:54AM ; [facility] Dietary counseling pertainin g to diabetes mellitus Last Documented On 10:54AM ; [facility] Patient education about diab etic foot care Last Documented On 10:54AM ; [facility] Inquiry and counseling about medication administration and compliance Last Documented On 10:54AM ; [facility] Discussed concerns about exe rcise : promote physical activity Last Documented On 10:41AM ; [facility] Patient goals discussed Last Documented On 10:54AM ; [facility] The patient's goal is to tonny t the blood sugars and bring in the results to each visit Last Documented On 10:54AM ; [facility] Work Phone: [phone] Instructions Includes: Instructions for all patient encounters Instructions to patient Maintain a healthy diet Last Documented On 4:43PM ; [facility] Maintain a healthy diet Last Documented On 10:54AM ; [facility] Education and Decision Aids were provided during visit for: Discussed nutritional needs teach healthy choices including fruits and vegetables Last Documented On 5 10:55AM ; [facility] Patient education about a pr oper diet Last Documented On 5 10:55AM ; [facility] Discussed concerns about exe rcise : promote physical activity ~ ~Follow up in one month for evaluation of symptoms ~ ~Will give tramadol to help with pain, take tylenol and motrin between doses Last Documented On 5 6:15AM ; [facility] Referred Patient to a Diabet es Self-Management Program Last Documented On 5 11:05AM ; [facility] Not requesting contraception Last Documented On 5 10:59AM ; [facility] Discussed nutritional needs teach healthy choices including fruits and vegetables Last Documented On 5 3:03PM ; [facility] Patient education about a pr oper diet Last Documented On 5 3:03PM ; [facility] Discussed concerns about exe rcise : promote physical activity ~ ~Continue to follow up with orthopedics ~ ~Follow up for hgba1c in one month Last Documented On 5 9:04PM ; [facility] Referred Patient to a Diabet es Self-Management Program Last Documented On 5 3:16PM ; [facility] Discussed nutritional needs teach healthy choices including fruits and vegetables Last Documented On 5 9:31AM ; [facility] Patient education about a pr oper diet Last Documented On 5 9:31AM ; [facility] Discussed concerns about exe rcise : promote physical activity Last Documented On 5 9:31AM ; [facility] Discussed nutritional needs teach healthy choices including fruits and vegetables Last Documented On 5 12:19PM ; [facility] Patient education about a pr oper diet Last Documented On 5 12:19PM ; [facility] Discussed concerns about exe rcise : promote physical activity ~ ~Follow up after ER visit Last Documented On 5 2:10PM ; [facility] Discussed nutritional needs teach healthy choices including fruits and vegetables Last Documented On 5 3:11PM ; [facility] Patient education about a pr oper diet Last Documented On 5 3:11PM ; [facility] Discussed concerns about exe rcise : promote physical activity ~ ~Follow up after ER visit Last Documented On 5 4:59PM ; [facility] Discussed nutritional needs teach healthy choices including fruits and vegetables Last Documented On 5 3:16PM ; [facility] Patient education about a pr oper diet Last Documented On 5 3:16PM ; [facility] Discussed concerns about exe rcise : promote physical activity ~ ~Discussed following up with spinal specialist ~ ~Continue to take diabetic medication at same dose Last Documented On 5 9:28AM ; [facility] Referred Patient to a Diabet es Self-Management Program Last Documented On 5 3:43PM ; [facility] Not requesting contraception Last Documented On 5 3:16PM ; [facility] Discussed nutritional needs teach healthy choices including fruits and vegetables Last Documented On 4 2:49PM ; [facility] Patient education about a pr oper diet Last Documented On 4 2:49PM ; [facility] Discussed concerns about exe rcise : promote physical activity ~ ~Follow up in one month Last Documented On 4 8:14AM ; [facility] Referred Patient to a Diabet es Self-Management Program Last Documented On 4 2:55PM ; [facility] Discussed nutritional needs teach healthy choices including fruits and vegetables Last Documented On 4 3:46PM ; [facility] Patient education about a pr oper diet Last Documented On 4 3:46PM ; [facility] Discussed concerns about exe rcise : promote physical activity ~ ~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 ~ ~LEVEMIR IS NOT AVAILABLE SO WILL [...] ~ Last Documented On 4 4:51PM ; [facility] Referred Patient to a Diabet es Self-Management Program Last Documented On 4 4:21PM ; [facility] Not requesting contraception Last Documented On 4 3:46PM ; [facility] Discussed nutritional needs teach healthy choices including fruits and vegetables Last Documented On 1 11:33AM ; [facility] Patient education about a pr oper diet Last Documented On 1 11:33AM ; [facility] Discussed concerns about exe rcise : promote physical activity ~ ~Follow up in one month Last Documented On 1 3:30PM ; [facility] Discussed nutritional needs teach healthy choices including fruits and vegetables Last Documented On 1 4:34PM ; [facility] Patient education about a pr oper diet Last Documented On 1 4:34PM ; [facility] Patient education about a ho nm blood glucose monitor with instructions to bring monitor to each visit Last Documented On 1 4:43PM ; [facility] Dietary counseling pertainin g to diabetes mellitus Last Documented On 1 4:43PM ; [facility] Patient education about diab etic foot care Last Documented On 1 4:43PM ; [facility] Inquiry and counseling about medication administration and compliance Last Documented On 1 4:43PM ; [facility] Discussed concerns about exe rcise : promote physical activity Last Documented On 1 4:34PM ; [facility] Patient goals discussed Last Documented On 1 4:43PM ; [facility] The patient's goal is to tonny t the blood sugars and bring in the results to each visit Last Documented On 1 4:43PM ; [facility] NOTE: pt reported any inform ation [facility] needed was available on the internet; she could access it. She did not intend to put any information in her medical record that was not necessary or otherwise avaiable. ~ ~Also, if she were depressed or anxious, she would tell someone. SHe is not. She did, however, answer questions that allowed [facility] to complete the PHQ9 Last Documented On 8:58PM ; [facility] Discussed nutritional needs teach healthy choices including fruits and vegetables Last Documented On 10:41AM ; [facility] Patient education about a pr oper diet Last Documented On 10:41AM ; [facility] Patient education about regu lar dental care Last Documented On 10:54AM ; [facility] Patient education about a ho nm blood glucose monitor with instructions to bring monitor to each visit Last Documented On 10:54AM ; [facility] Dietary counseling pertainin g to diabetes mellitus Last Documented On 10:54AM ; [facility] Patient education about diab etic foot care Last Documented On 10:54AM ; [facility] Inquiry and counseling about medication administration and compliance Last Documented On 10:54AM ; [facility] Discussed concerns about exe rcise : promote physical activity Last Documented On 10:41AM ; [facility] Patient goals discussed Last Documented On 10:54AM ; [facility] The patient's goal is to tonny t the blood sugars and bring in the results to each visit Last Documented On 10:54AM ; [facility] Work Phone: 1(457) 599-519411-02-2021 Instructions Includes: Instructions for all patient encounters Instructions to patient Maintain a healthy diet Last Documented On 4:43PM ; [facility] Maintain a healthy diet Last Documented On 10:54AM ; [facility] Education and Decision Aids were provided during visit for: Discussed nutritional needs teach healthy choices including fruits and vegetables Last Documented On 5 12:06PM ; [facility] Patient education about a pr oper diet Last Documented On 5 12:06PM ; [facility] Discussed concerns about exe rcise : promote physical activity ~ ~Follow up next week for BP check ~ ~Go to ER if blood pressure drops below 90 systolic and you are symptomatic ~ ~ Last Documented On 5 3:50PM ; [facility] Referred Patient to a Diabet es Self-Management Program Last Documented On 5 12:14PM ; [facility] Discussed nutritional needs teach healthy choices including fruits and vegetables Last Documented On 5 12:48PM ; [facility] Patient education about a pr oper diet Last Documented On 5 12:48PM ; [facility] Discussed concerns about exe rcise : promote physical activity ~ ~Will start duloxetine to help with nerve pain and mood ~ ~Start taking insulin as prescribed ~ ~Follow up in one month Last Documented On 5 1:57PM ; [facility] Referred Patient to a Diabet es Self-Management Program Last Documented On 5 12:48PM ; [facility] Discussed nutritional needs teach healthy choices including fruits and vegetables Last Documented On 5 10:55AM ; [facility] Patient education about a pr oper diet Last Documented On 5 10:55AM ; [facility] Discussed concerns about exe rcise : promote physical activity ~ ~Follow up in one month for evaluation of symptoms ~ ~Will give tramadol to help with pain, take tylenol and motrin between doses Last Documented On 5 6:15AM ; [facility] Referred Patient to a Diabet es Self-Management Program Last Documented On 5 11:05AM ; [facility] Not requesting contraception Last Documented On 5 10:59AM ; [facility] Discussed nutritional needs teach healthy choices including fruits and vegetables Last Documented On 5 3:03PM ; [facility] Patient education about a pr oper diet Last Documented On 5 3:03PM ; [facility] Discussed concerns about exe rcise : promote physical activity ~ ~Continue to follow up with orthopedics ~ ~Follow up for [id number] in one month Last Documented On 5 9:04PM ; [facility] Referred Patient to a Diabet es Self-Management Program Last Documented On 5 3:16PM ; [facility] Discussed nutritional needs teach healthy choices including fruits and vegetables Last Documented On 5 9:31AM ; [facility] Patient education about a pr oper diet Last Documented On 5 9:31AM ; [facility] Discussed concerns about exe rcise : promote physical activity Last Documented On 5 9:31AM ; [facility] Discussed nutritional needs teach healthy choices including fruits and vegetables Last Documented On 5 12:19PM ; [facility] Patient education about a pr oper diet Last Documented On 5 12:19PM ; [facility] Discussed concerns about exe rcise : promote physical activity ~ ~Follow up after ER visit Last Documented On 5 2:10PM ; [facility] Discussed nutritional needs teach healthy choices including fruits and vegetables Last Documented On 5 3:11PM ; [facility] Patient education about a pr oper diet Last Documented On 5 3:11PM ; [facility] Discussed concerns about exe rcise : promote physical activity ~ ~Follow up after ER visit Last Documented On 5 4:59PM ; [facility] Discussed nutritional needs teach healthy choices including fruits and vegetables Last Documented On 5 3:16PM ; [facility] Patient education about a pr oper diet Last Documented On 5 3:16PM ; [facility] Discussed concerns about exe rcise : promote physical activity ~ ~Discussed following up with spinal specialist ~ ~Continue to take diabetic medication at same dose Last Documented On 5 9:28AM ; [facility] Referred Patient to a Diabet es Self-Management Program Last Documented On 5 3:43PM ; [facility] Not requesting contraception Last Documented On 5 3:16PM ; [facility] Discussed nutritional needs teach healthy choices including fruits and vegetables Last Documented On 4 2:49PM ; [facility] Patient education about a pr oper diet Last Documented On 4 2:49PM ; [facility] Discussed concerns about exe rcise : promote physical activity ~ ~Follow up in one month Last Documented On 4 8:14AM ; [facility] Referred Patient to a Diabet es Self-Management Program Last Documented On 4 2:55PM ; [facility] Discussed nutritional needs teach healthy choices including fruits and vegetables Last Documented On 4 3:46PM ; [facility] Patient education about a pr oper diet Last Documented On 4 3:46PM ; [facility] Discussed concerns about exe rcise : promote physical activity ~ ~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 ~ ~LEVEMIR IS NOT AVAILABLE SO WILL [...] ~ Last Documented On 4 4:51PM ; [facility] Referred Patient to a Diabet es Self-Management Program Last Documented On 4 4:21PM ; [facility] Not requesting contraception Last Documented On 4 3:46PM ; [facility] Discussed nutritional needs teach healthy choices including fruits and vegetables Last Documented On 1 11:33AM ; [facility] Patient education about a pr oper diet Last Documented On 1 11:33AM ; [facility] Discussed concerns about exe rcise : promote physical activity ~ ~Follow up in one month Last Documented On 1 3:30PM ; [facility] Discussed nutritional needs teach healthy choices including fruits and vegetables Last Documented On 1 4:34PM ; [facility] Patient education about a pr oper diet Last Documented On 1 4:34PM ; [facility] Patient education about a ho me blood glucose monitor with instructions to bring monitor to each visit Last Documented On 1 4:43PM ; [facility] Dietary counseling pertainin g to diabetes mellitus Last Documented On 1 4:43PM ; [facility] Patient education about diab etic foot care Last Documented On 1 4:43PM ; [facility] Inquiry and counseling about medication administration and compliance Last Documented On 4:43PM ; [facility] Discussed concerns about exe rcise : promote physical activity Last Documented On 4:34PM ; [facility] Patient goals discussed Last Documented On 4:43PM ; [facility] The patient's goal is to tonny t the blood sugars and bring in the results to each visit Last Documented On 4:43PM ; [facility] NOTE: pt reported any inform ation P needed was available on the internet; she could access it. She did not intend to put any information in her medical record that was not necessary or otherwise avaiable. ~ ~Also, if she were depressed or anxious, she would tell someone. SHe is not. She did, however, answer questions that allowed [facility] to complete the PHQ9 Last Documented On 8:58PM ; [facility] Discussed nutritional needs teach healthy choices including fruits and vegetables Last Documented On 10:41AM ; [facility] Patient education about a pr oper diet Last Documented On 10:41AM ; [facility] Patient education about regu lar dental care Last Documented On 10:54AM ; [facility] Patient education about a ho me blood glucose monitor with instructions to bring monitor to each visit Last Documented On 10:54AM ; [facility] Dietary counseling pertainin g to diabetes mellitus Last Documented On 10:54AM ; [facility] Patient education about diab etic foot care Last Documented On 10:54AM ; [facility] Inquiry and counseling about medication administration and compliance Last Documented On 10:54AM ; [facility] Discussed concerns about exe rcise : promote physical activity Last Documented On 10:41AM ; [facility] Patient goals discussed Last Documented On 10:54AM ; [facility] The patient's goal is to tonny t the blood sugars and bring in the results to each visit Last Documented On 10:54AM ; [facility] Work Phone: 1(514) 472-923111-02-2021 Evaluation note Includes: Assessments for all patient encounters Findings Encounter Date Assessment of body mass inde x [Body mass index [BMI] 31.0-31.9, adult] Medical Established Patient with Kavita Hardeep PREPRINT ANALYST 05/18/2021 Assessment of body mass inde x [Body mass index [BMI] 29.0-29.9, adult] Medical New Patient with Kavita Hardeep PREPRINT ANALYST 04/21/2021 Type 2 diabetes mellitus Medical New Pat ient with Kavita Hardeep PREPRINT ANALYST 04/21/2021 [facility] Work Phone: [phone]) 430-769310-06-2021 Evaluation note Includes: Assessments for all patient encounters Findings Encounter Date Assessment of body mass inde x [Body mass index [BMI] 29.0-29.9, adult] Medical New Patient with Kavita Hardeep PREPRINT ANALYST 04/21/2021 Type 2 diabetes mellitus Medical New Pat ient with Kavita Hardeep PREPRINT ANALYST 04/21/2021 [facility] Work Phone: 1([phone]) 799-794710-06-2021 History general Narrative - Reported Includes: Medical History in patient's chart Description Last Updated History of diabetes mellitus 04/21/2021 Previous hospitalizations [facility] 04-16-21 04/21/2021 [facility] Work Phone: [phone]) 543-454410-06-2021 History general Narrative - Reported Includes: Medical History in patient's chart Description Last Updated History of diabetes mellitus 04/21/2021 Last Documented On 1 12:10PM ; [facility] Previous hospitalizations [facility] 04-16-21 04/21/2021 Last Documented On 1 12:10PM ; [facility] Work Phone: 1([phone]) 404-201810-01-2021 History general Narrative - Reported Includes: Medical History in patient's chart Description Last Updated History of diabetes mellitus 04/21/2021 Previous hospitalizations [facility] 04-16-21 04/21/2021 [facility] Work Phone: 1([phone]) 697-395310-01-2021 History general Narrative - Reported Includes: Medical History in patient's chart Description Last Updated No previous hospitalizations [facility] 04-16-21 06/06/2024 Last Documented On 4 11:06AM ; [facility] History of diabetes mellitus 04/21/2021 Last Documented On 1 12:10PM ; [facility] Work Phone: [phone]) 436-640610-01-2021 History general Narrative - Reported Includes: Medical History in patient's chart Description Last Updated No previous hospitalizations [facility] 04-16-21 06/06/2024 Last Documented On 4 11:06AM ; [facility] History of diabetes mellitus 04/21/2021 Last Documented On 1 12:10PM ; [facility] Work Phone: 1([phone]) 753-979710-01-2021 History general Narrative - Reported Includes: Medical History in patient's chart Description Last Updated No previous hospitalizations [facility] 04-16-21 06/06/2024 Last Documented On 4 11:06AM ; [facility] History of diabetes mellitus 04/21/2021 Last Documented On 1 12:10PM ; [facility] Work Phone: [phone]) 794-731110-01-2021 History general Narrative - Reported Includes: Medical History in patient's chart Description Last Updated No previous hospitalizations [facility] 04-16-21 06/06/2024 Last Documented On 4 11:06AM ; [facility] History of diabetes mellitus 04/21/2021 Last Documented On 1 12:10PM ; [facility] Work Phone: [phone]) 703-488910-01-2021 History general Narrative - Reported Includes: Medical History in patient's chart Description Last Updated No previous hospitalizations [facility] 04-16-21 06/06/2024 Last Documented On 4 11:06AM ; [facility] History of diabetes mellitus 04/21/2021 Last Documented On 1 12:10PM ; [facility] Work Phone: [phone]) 924-415010-01-2021 History general Narrative - Reported Includes: Medical History in patient's chart Description Last Updated No previous hospitalizations [facility] 04-16-21 06/06/2024 Last Documented On 4 11:06AM ; [facility] History of diabetes mellitus 04/21/2021 Last Documented On 1 12:10PM ; [facility] Work Phone: [phone]) 871-661210-01-2021 History general Narrative - Reported Includes: Medical History in patient's chart Description Last Updated No previous hospitalizations [facility] 04-16-21 06/06/2024 Last Documented On 4 11:06AM ; [facility] History of diabetes mellitus 04/21/2021 Last Documented On 1 12:10PM ; [facility] Work Phone: [phone]) [phone] History general Narrative - Reported Includes: Medical History in patient's chart Description Last Updated No previous hospitalizations [facility] 04-16-21 06/06/2024 Last Documented On 4 11:06AM ; [facility] History of diabetes mellitus 04/21/2021 Last Documented On 1 12:10PM ; [facility] Work Phone: [phone]) [phone] History general Narrative - Reported Includes: Medical History in patient's chart Description Last Updated No previous hospitalizations [facility] 04-16-21 06/06/2024 Last Documented On 4 11:06AM ; [facility] History of diabetes mellitus 04/21/2021 Last Documented On 1 12:10PM ; [facility] Work Phone: [phone]) 932-991010-01-2021 History of Present illness Narrative* Gali Knapp [...] am. 2. Saline lock IV. 3. DC threat monitoring analyst. 4. Increase ambulation this am. 5. Will [...] diabetes mellitus (HCC) Roverto Barbour MD, MD [facility] Hospitalist * Juan Salamanca RN - [...] for People with Diabetes Abbie Falk RN [facility] Diabetes clinic educator 04/14/2021 4:54 PM * Gali Knapp LSW - 04/14/2021 11:39 AM EDT SW met with pt to complete assessment during quality rounds with truck sales manager. Pt is alert and oriented but not happy with visit because she is trying to sleep. Pt does cooperate with assessment. Pt lives alone in her home in [place]. Pt reports that she uses no DME or community services at home.Pt reports that her glucometer is outdated. Pt drives and is able to get herself to appointments. Pt is a full code and is currently without a PCP. truck sales manager to find a provider for [...] will follow and remain available. Gali Ortiz [facility] 04/14/2021 * Juan Salamanca RN - [...] a living will or durable power of managing attorney for healthcare? denies If yes do we have a copy on file? n/a Do you or your family have any questions or concerns we haven't already discussed? Denies Lives alone. Pt states she has no PCP, states [facility] fired me . Pt is agreeable to have advertising copy writer setup a follow up appt with a new provider. Pt states she has no preference with who and either Katy Leyva is ok. Gali ALEMAN and advertising copy writer present for rounding. 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 Strength: Not Performed Estimated Daily Nutrient Needs: Energy (kcal): 3634-6643 (20-23/kg); Weight Used for Energy Requirements: Current Protein (g): 74-86g (1.3-1.5g/kg); Weight Used for Protein Requirements: [place] Fluid (ml/day): 1817 ml; Method Used for [...] Body Weight: 187 lb (84.8 kg) (03/04/2020) [place] Body Weight: 125 lbs; % [place] Body Weight 139.2 % BMI: 29 BMI Categories: Overweight (BMI 25.0-29.9) Nutrition Diagnosis: Altered nutrition-related lab values related to endocrine dysfuntion as evidenced by lab values Nutrition Interventions: Food and/or Nutrient Delivery: Continue Current Diet Nutrition Education/Counseling: Education initiated Coordination of Nutrition Care: Continue to monitor while inpatient Goals: PO > 75% of meals Recent Labs 04/13/21 18304/13/21 18304/13/21202804/13/21211904/14/21 0130 04/14/21 0526 NA 130* -- -- [...] diet, Recommend pursue outpatient diabetes education Contact: [phone] * Juan Salamanca RN - 04/14/2021 7:44 [...] EDT Pt initially refuses BG finger stick. Computational Mathematician educates pt on importance of hourly checks. [...] of sodium phosphate with Bernard[place] pharmacist at [facility].Also verified X2 RN. * Vidhya Reyes RN [...] this time for safety. documented [facility] Work Phone: 1(833) 933-248709-30-2021 Hospital Discharge instructions* Instructions* Roverto Barbour MD - 04/15/2021 Discharge Instructions Admission Date: 04/13/2021 Discharge Date: 04/16/21 Disposition: Home Activity: As tolerated Diet: Diabetic Discharge Medication: Casandra Gonzalez Home Medication Instructions EVETTE:[id number] Printed on:04/16/21 0639 Medication Information blood glucose [...] 1 to 2 weeks. documented in this [facility] Phone: evaluation note* Diagnosis Diabetic ketoacidosis without coma associated with diabetes mellitus due to underlying condition (HCC)- Primary Type 2 diabetes mellitus with complication, without long-term current use of insulin (HCC) Nephrolithiasis Calculus of kidney Diabetic ketoacidosis without coma associated with type 2 diabetes mellitus (HCC) documented in this encounter [facility] Phone: evaluation note Includes: Assessments for all patient encounters Findings Encounter Date Assessment of body mass inde x [Body mass index [BMI] 29.0-29.9, adult] Medical New Patient with Kavita Qureshi CNP 04/21/2021 Type 2 diabetes mellitus Medical New Pat ient with Kavita Qureshi CNP 04/21/2021 [facility] Work Phone: Evaluation note* Diagnosis Uncontrolled type 2 diabetes mellitus with hyperglycemia- Primary Mixed hyperlipidemia Obesity (BMI 30.0-34.9) Obesity, unspecified Alisia syndrome Alisia's syndrome documented in this encounter [facility] note* Diagnosis Uncontrolled type 2 diabetes mellitus with hyperglycemia- Primary documented in this encounter [facility] note* Diagnosis Uncontrolled type 2 diabetes mellitus with hyperglycemia- Primary documented in this encounter [facility] note* Diagnosis Dysuria Acute cystitis with hematuria Acute cystitis documented [facility] encounter [facility] Work Phone: evaluation note* Diagnosis Uncontrolled type 2 diabetes mellitus with hyperglycemia- Primary [facility] Diagnosis DKA (diabetic ketoacidosis)- Primary Type [...] 2 diabetes mellitus documented in this encounter [facility] note* Diagnosis Acute sinusitis, recurrence not specified, unspecified location- Primary documented in this encounter [facility] Work Phone: evaluation note* Diagnosis Acute midline low back pain without sciatica- Primary [facility] [facility]* Diagnosis Pain in thoracic spine documented in this encounter [facility]* Diagnosis Strain of thoracic back region- Primary [facility]* Diagnosis Hypotension due to hypovolemia- Primary Tachycardia Tachycardia, unspecified [facility]* Diagnosis Tachycardia Tachycardia, unspecified documented in this encounter [facility]* Diagnosis Generalized abdominal pain Abdominal pain, generalized documented in this encounter [facility]* Diagnosis Tachycardia- Primary Tachycardia, unspecified Dehydration documented in this encounter [facility]* Diagnosis Dehydration- Primary Hyperglycemia due to diabetes mellitus (HCC) documented in this encounter [facility]* Diagnosis Tachycardia- Primary Tachycardia, unspecified Mid back pain Backache, unspecified documented in this encounter [facility] Includes: Assessments for all patient encounters Findings Encounter Date [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 Medical Established Patient with Sallyflorecita Perkinsiraj JIMENEZ 09/19/2024 Last Documented On 1:29PM ; [facility] Assessment of body mass index Medical Es tablished Patient with Sally Ginger JIMENEZ 09/19/2024 Last Documented On 1:29PM ; [facility] Body mass index Medical Established Patient with Sallyflorecita Miles CNP 09/19/2024 Last Documented On 1:29PM ; [facility] Type 2 diabetes mellitus Medical Established Pat ient with Sally Miles CNP 09/19/2024 Last Documented On 1:29PM ; [facility] Type 2 diabetes mellitus Medical Established Pat ient with Sally Ginger JIMENEZ 09/19/2024 Last Documented On 1:29PM ; [facility] [Body mass index [BMI] 28.0- 28.9, adult] assessment of body mass index Open Access - Established with Kavita Qureshi CNP 09/02/2024 Last Documented On 5 2:11PM ; [facility] Assessment of pain in the th oracic spine Open Access - Established with Kavita Qureshi CNP 09/02/2024 Last Documented On 5 2:11PM ; [facility] Type 2 diabetes mellitus Open Access - Establish ed with Kavita Qureshi CNP 09/02/2024 Last Documented On 5 2:11PM ; [facility] [Body mass index [BMI] 28.0- 28.9, adult] assessment of body mass index Open Access - Established with Kavita Qureshi CNP 08/21/2024 Last Documented On 5 5:18PM ; [facility] Type 2 diabetes mellitus Open Access - Establish ed with Kavita Hardeep PREPRINT ANALYST 08/21/2024 Last Documented On 5 5:18PM ; [facility] [Body mass index [BMI] 28.0- 28.9, adult] assessment of body mass index Medical Established Patient with Kavita Hardeep PREPRINT ANALYST 08/08/2024 Last Documented On 5 4:23PM ; [facility] Type 2 diabetes mellitus Medical Established Pat ient with Kavita Hardeep PREPRINT ANALYST 08/08/2024 Last Documented On 5 4:23PM ; [facility] [Body mass index [BMI] 30.0- 30.9, adult] assessment of body mass index Medical Established Patient with Kavita Hardeep PREPRINT ANALYST 07/04/2024 Last Documented On 4 8:14AM ; [facility] Type 2 diabetes mellitus Medical Established Pat ient with Kavita Hardeep PREPRINT ANALYST 07/04/2024 Last Documented On 4 8:14AM ; [facility] [Body mass index [BMI] 28.0- 28.9, adult] assessment of body mass index Open Access - Established with Kavita Hardeep PREPRINT ANALYST 06/06/2024 Last Documented On 4 11:06AM ; [facility] Venipuncture was performed Open Access - Establi shed with Kavita Hardeep PREPRINT ANALYST 06/06/2024 Last Documented On 4 11:06AM ; [facility] Assessment of body mass inde x [Body mass index [BMI] 31.0-31.9, adult] Medical Established Patient with Kavita Hardeep PREPRINT ANALYST 06/02/2021 Last Documented On 1 5:19PM ; [facility] Type 2 diabetes mellitus Medical Established Pat ient with Kavita Hardeep PREPRINT ANALYST 06/02/2021 Last Documented On 1 5:19PM ; [facility] Assessment of body mass inde x [Body mass index [BMI] 31.0-31.9, adult] Medical Established Patient with Kavita Hardeep PREPRINT ANALYST 05/18/2021 Last Documented On 1 5:34PM ; [facility] Assessment of body mass inde x [Body mass index [BMI] 29.0-29.9, adult] Medical New Patient with Kavita Qureshi PREPRINT ANALYST 04/21/2021 Last Documented On 1 12:10PM ; [facility] Type 2 diabetes mellitus Medical New Patient wit thomas Qureshi PREPRINT ANALYST 04/21/2021 Last Documented On 1 12:10PM ; [facility] Work Phone: Evaluation note* Diagnosis Strain of lumbar region, initial encounter- Primary [facility] this [facility]* Diagnosis Tachycardia- Primary Tachycardia, unspecified Mixed [...] Undiagnosed cardiac murmurs documented in this [facility]* Diagnosis Tachycardia- Primary Tachycardia, unspecified Mixed hyperlipidemia Nonrheumatic aortic valve stenosis Aortic valve disorders Bicuspid aortic valve Congenital insufficiency of aortic valve Uncontrolled type 2 diabetes mellitus with hyperglycemia (HCC) Abnormal EKG Nonspecific abnormal electrocardiogram (ECG) (EKG) Heart murmur Undiagnosed cardiac murmurs Chronic pain syndrome Lumbar back pain Lumbago Spondylolisthesis of thoracic region Acquired spondylolisthesis documented in this encounter [facility]* Diagnosis Tachycardia- Primary Tachycardia, unspecified Mixed hyperlipidemia Nonrheumatic aortic valve stenosis Aortic valve disorders Bicuspid aortic valve Congenital insufficiency of aortic valve Uncontrolled type 2 diabetes mellitus with hyperglycemia (HCC) Abnormal EKG Nonspecific abnormal electrocardiogram (ECG) (EKG) Heart murmur Undiagnosed cardiac murmurs Chronic pain syndrome Dehydration- Primary Nausea and vomiting, unspecified vomiting type documented [facility] this encounter [facility] Present illness Narrative History of Present Illness not supported for this document type No [facility] of [facility] Work Phone: Hospital Discharge instructions* Attachments The following attachments cannot be sent through Care Everywhere. * Sinusitis (Cameroonian) [facility] Work Phone: Hospital Discharge instructions* Attachments The following attachments cannot be sent through Care Everywhere. * Back: Preventing Injuries (Cameroonian) * Low Back Pain: Exercises (Cameroonian) [facility] Attachments The following attachments cannot be sent through Care Everywhere. * Cardiac Arrhythmia (Cameroonian) * Oral Rehydration (Cameroonian) [facility]* Attachments The following attachments cannot be sent through Care Everywhere. * Dehydration (Cameroonian) * Diabetes: Type 2: General Info (Cameroonian) [facility]* Attachments The following attachments cannot be sent through Care Everywhere. * Back Pain (Cameroonian) [facility]* Attachments The following attachments cannot be sent through Care Everywhere. * Back: Strain (Cameroonian) [facility]* Attachments The following attachments cannot be sent through Care Everywhere. * Nausea and Vomiting (Cameroonian) [facility] Instructions not supported for this document type No Instructions [facility] Work Phone: Patient problem outcome Narrative Includes: Evaluations & Outcomes for active Goals No Outcomes [facility] Work Phone: Reason for referral (narrative)No Reason for Referral [facility] Work Phone: Reason for visit Narrative* Imaging (Routine) - Closed Specialty Diagnoses / Procedures Referred By Contac t Referred To Contact Cardiology Diagnoses Tachycardia Abnormal EKG Heart murmur Procedures Echo (TTE) complete (PRN contrast/bubble/strain/3D) [place] ECHO TTHRC R-T 2D W/WOM-MODE COMPL SPEC&COLR D [place] TTE W OR WO FOL WCON,Javier Flowers DO [address] [place] [address] Phone: tel: fax: Referral ID Status Reason Start Date Expiration Date Visits Re quested Visits Authorized [id number] Closed 10/08/2024 12/07/[address] [facility] for visit Narrative* Imaging (Routine) - Closed Specialty Diagnoses / Procedures Referred By Contac t Referred To Contact Radiology Diagnoses Lumbar back pain Spondylolisthesis of thoracic region Procedures MRI LUMBAR SPINE WO CONTRAST Juan Gerber PA [address] [place] [address] Phone: tel: fax: Referral ID Status Reason Start Date Expiration Date Visits Re quested Visits Authorized [id number] Closed 11/27/2024 11/27/2025 1 1 [facility] systems Narrative - Reported Review of Systems not supported for this document type No Review of Systems [facility] Work Phone: Assessments Diagnosis Renal colic Diagnosis Renal colic Advance Directives No Advanced Directives Records FoundDocuments on File Type Date Recorded 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 Advance Directives and Living Will Power of Welding Machine Operator Submerged Arc Latest Code Status on File Code Status Date Activated Date Inactivated Comments Full Code 04/21/2016 9:39 AM 04/21/2016 12:42 PM Full Code 04/21/2016 7:07 AM 04/21/2016 9:39 AM Documents on File Type Date Recorded 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 Advance Directives and Living Will Power of Welding Machine Operator Submerged Arc Latest Code Status on File Code Status Date Activated Date Inactivated Comments Full Code 04/21/2016 9:39 AM 04/21/2016 12:42 PM Full Code 04/21/2016 7:07 AM 04/21/2016 9:39 AM Documents on File Type Date Recorded 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 ACP-Advance Directive ACP-Power of Welding Machine Operator Submerged Arc Latest Code Status on File Code Status Date Activated Date Inactivated Comments Full Code 04/13/2021 10:12 PM Full Code 04/21/2016 9:39 AM 04/21/2016 12:42 PM Healthcare Agents on File Name Relationship Healthcare Agent [facility] Communication Kong Gonzalez Child Primary Decision Maker Documents on File Type Date Recorded 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 None Rosangela Gongora, PUTAWAY DRIVER - PREPRINT ANALYST [address] [facility] [address] [place] [address] [facility] [address] [facility] [place] [address] Status Reason Specialty Diagnoses / Procedures Referred By Contact Referred To Contact Open Specialty Services Required Urology Diagnoses Nephrolithiasis Roverto Barbour MD [address] [place] [address] Mason Monterroso MD [address] [facility], [address] [place] [address] Scheduling Instructions [facility] - Mason Monterroso MD [address] [place] [address] Specialty Diagnoses / Procedures Referred By Contac t Referred To Contact Procedures INPATIENT ADMISSION NOTIFICATION Cecilio Saucedo MD [address] [place] [address] Referral ID Status Reason Start Date Expiration Date V isits Requested Visits Authorized [id number] New Request 06/21/2022 07/16/2023 1 1 Specialty Diagnoses / Procedures Referred By Contac t Referred To Contact Procedures ECG Irvin Magana MD [address] [place] [address] Referral ID Status Reason Start Date Expiration Date V isits Requested Visits Authorized [id number] New Request 06/21/2022 07/16/2023 1 1 Specialty Diagnoses / Procedures Referred By Contac t Referred To Contact Cardiology Diagnoses Tachycardia Procedures Extended cardiac holter monitor (3 days-14 day) [place] EXTERNAL ECG REC>48HR<7D REVIEW & INTERPRETATION [place] EXTERNAL ECG REC>48HR<7D RECORDING [place] EXTERNAL ECG REC>7D<15D RECORDING [place] EXTERNAL ECG REC>7D<15D REVIEW & INTERPRETATION Ame Saldana, [address] [facility] [place] [address] Referral ID Status Reason Start Date Expiration Date Visits Re quested Visits Authorized [id number] Closed 08/22/2024 08/22/2025 1 1 Family History No Family History Records Found Description Last Updated Maternal history of endocrine disorder 1 Maternal history of type 2 diabetes marleen itus 04/21/2021 Paternal history of endocrine disorder 1 Paternal history of type 2 diabetes marleen itus 04/21/2021 Description Last Updated Maternal history of endocrine disorder 1 Last Documented On 1 12:10PM ; [facility] Maternal history of type 2 diabetes marleen itus 04/21/2021 Paternal history of endocrine disorder 1 Paternal history of type 2 diabetes marleen itus 04/21/2021 Description Last Updated Maternal history of endocrine disorder 1 Last Documented On 1 12:10PM ; [facility] Maternal history of type 2 diabetes marleen itus 04/21/2021 Paternal history of endocrine disorder 1 Paternal history of type 2 diabetes marleen itus 04/21/2021 Description Last Updated Maternal history of endocrine disorder 1 Last Documented On 1 12:10PM ; [facility] Maternal history of type 2 diabetes marleen itus 04/21/2021 Paternal history of endocrine disorder 1 Paternal history of type 2 diabetes marleen itus 04/21/2021 Description Last Updated Maternal history of endocrine disorder 1 Last Documented On 1 12:10PM ; [facility] Maternal history of type 2 diabetes marleen itus 04/21/2021 Paternal history of endocrine disorder 1 Paternal history of type 2 diabetes marleen itus 04/21/2021 Description Last Updated Maternal history of endocrine disorder 1 Last Documented On 1 12:10PM ; [facility] Maternal history of type 2 diabetes marleen itus 04/21/2021 Paternal history of endocrine disorder 1 Paternal history of type 2 diabetes marleen itus 04/21/2021 Description Last Updated Maternal history of endocrine disorder 1 Last Documented On 1 12:10PM ; [facility] Maternal history of type 2 diabetes marleen itus 04/21/2021 Paternal history of endocrine disorder 1 Paternal history of type 2 diabetes marleen itus 04/21/2021 Description Last Updated Maternal history of endocrine disorder 1 Last Documented On 1 12:10PM ; [facility] Maternal history of type 2 diabetes marleen itus 04/21/2021 Paternal history of endocrine disorder 1 Paternal history of type 2 diabetes marleen itus 04/21/2021 Description Last Updated Maternal history of endocrine disorder 1 Last Documented On 1 12:10PM ; [facility] Maternal history of type 2 diabetes marleen itus 04/21/2021 Paternal history of endocrine disorder 1 Paternal history of type 2 diabetes marleen itus 04/21/2021 Description Last Updated Maternal history of endocrine disorder 1 Last Documented On 1 12:10PM ; [facility] Maternal history of type 2 diabetes marleen itus 04/21/2021 Paternal history of endocrine disorder 1 Paternal history of type 2 diabetes marleen itus 04/21/2021 Description Last Updated Maternal history of endocrine disorder 1 Last Documented On 1 12:10PM ; [facility] Maternal history of type 2 diabetes marleen itus 04/21/2021 Paternal history of endocrine disorder 1 Paternal history of type 2 diabetes marleen itus 04/21/2021 Description Last Updated Maternal history of endocrine disorder 1 Last Documented On 1 12:10PM ; [facility] Maternal history of type 2 diabetes marleen itus 04/21/2021 Paternal history of endocrine disorder 1 Paternal history of type 2 diabetes marleen itus 04/21/2021 Description Last Updated Maternal history of endocrine disorder 1 Last Documented On 1 12:10PM ; [facility] Maternal history of type 2 diabetes marleen itus 04/21/2021 Paternal history of endocrine disorder 1 Paternal history of type 2 diabetes marleen itus 04/21/2021 Description Last Updated Maternal history of endocrine disorder 1 Last Documented On 1 12:10PM ; [facility] Maternal history of type 2 diabetes marleen itus 04/21/2021 Paternal history of endocrine disorder 1 Paternal history of type 2 diabetes marleen itus 04/21/2021 Description Last Updated Maternal history of endocrine disorder 1 Last Documented On 1 12:10PM ; [facility] Maternal history of type 2 diabetes [...] PELVIS WO CONTRAST Additional Contrast? None Rosangela Gnogora, PUTAWAY DRIVER - PREPRINT ANALYST [address] [place] [address] [facility] [address] [place] [address] Reason Comments Flank Pain Left side flank pain for past 2 weeks. Status Reason Specialty Diagnoses / Procedures Referre d By Contact Referred To Contact Diagnoses Diabetic ketoacidosis without coma associated with type 2 diabetes mellitus (HCC) Diabetic ketoacidosis without coma associated with diabetes mellitus due to underlying condition (HCC) Roverto Barbour MD [address] [place] [address] [facility] Reason Comments Diabetes 3-4 week diabetic fo llow up, personal titus Reason Comments Follow-up Diabetes Reason Comments Diabetes Reason Comments Dizziness Fatigue Patient to the ED fo r c/o dizziness and weakness since Monday. States she hasn't been eating and she is a diabetic. BS was 376. Specialty Diagnoses / Procedures Referred By Contluis t Referred To Contact Diagnoses Diabetic ketoacidosis without coma associated with type 2 diabetes mellitus Cecilio Saucedo MD [address] [place] [id number] [employer] Referral ID Status Reason Start Date Expiration Date Visits Re quested Visits Authorized [id number] 1 1 Reason Comments Cough Patient complaint [...] Extended cardiac holter monitor (3 days-14 day) [place] EXTERNAL ECG REC>48HR<7D REVIEW & INTERPRETATION [place] EXTERNAL ECG REC>48HR<7D RECORDING [place] EXTERNAL ECG REC>7D<15D RECORDING [place] EXTERNAL ECG REC>7D<15D REVIEW & INTERPRETATION Ame Saldana, DO [address] [facility] [place] [address] Referral ID Status Reason Start Date Expiration Date Visits Re quested Visits Authorized [id number] Closed 08/22/2024 08/22/2025 1 1 Specialty Diagnoses / Procedures Referred By James martinez Referred To Contact Radiology Diagnoses Generalized abdominal pain Procedures US RENAL COMPLETE US RETROPERITONEAL COMPLETE Kavita Qureshi APRN - [place] [address] [place] [address] Referral ID Status Reason Start Date Expiration Date Visits Re quested Visits Authorized [id number] Open 08/19/2024 08/19/2025 1 1 Reason Comments Irregular Heart Beat Pt. Reports set by Kavita Qureshi NP for elevated HR. Pt. States just turned in holter monitor today Reason Comments Illness Pt reports she feels weak and dehydrated. Reports she was in [place] ED on Monday and they wanted to [...] SubCUTAneous, DAILY BEFORE BREAKFAST, First dose on Mon04/15/21 at 0700 0637 (Given - Provider: Nesha [...] Juan Salamanca RN) 0817 (Given - Provider: Angeliak Bunch RN)1200 (Due)1700 (Due) insulin lispro (HUMALOG) [...] 6 Units 2130 (Given - Provider: Nesha Perez, YARELI - Comment: 211) insulin lispro (HUMALOG) injection [...] 9 Units 2030 (Given - Provider: Juan Salamanca, YARELI) 2100 (Due) lidocaine 4 % external patch 1 patch 1 patch, TransDERmal, Administer over 12 Hours, DAILY, First dose on Mon04/14/21 at 0515, Apply patch to Left sacroiliac area. Patch may remain in place for up to 12 hours in any 24 hour period. 0608 (Patch Applied - Provider: Vidhya Reyes RN)1816 (Patch Removed - Provider: Juan Salamanca RN) 0803 (Patch Applied - Provider: Maria Guadalupe Wolfe, YARELI)2031 (Patch Removed - Provider: Juan Salamanca, YARELI) 0816 (Patch Applied - Provider: Angelika Bunch, YARELI)2015 (Due: Patch Removed - Provider: Angelika Bunch, YARELI) lisinopril (PRINIVIL;ZESTRIL) tablet 10 mg (CANCELED) 10 mg, Oral, DAILY, First dose on Mon04/14/21 at 0500 0608 (Given - Provider: Vidhya Reyes RN) lisinopril (PRINIVIL;ZESTRIL) tablet 2.5 mg 2.5 mg, Oral, DAILY, First dose (after last modification) on Mon04/15/21 at 0900, Hold for SBP < 110 0803 (Given - Provider: Maria Guadalupe Wolfe, YARELI) 0817 (Given - Provider: Angelika Bunch, YARELI) phosphorus (K PHOS NEUTRAL) tablet 1 tablet (COMPLETED) 1 tablet (250 mg), Oral, ONCE, On Mon04/15/21 at 0630, For 1 dose 0636 (Given - Provider: Nesha Perez, RN) potassium chloride (KLOR-CON) extended release tablet 20 mEq (COMPLETED) 20 mEq, Oral, ONCE, On Mon04/15/21 at 0630, For 1 dose, Do not crush or break. 0636 (Given - Provider: Nesha Perez, YARELI) potassium chloride (KLOR-CON) extended release tablet 20 mEq (COMPLETED) 20 mEq, Oral, ONCE, On Mon04/15/21 at 1700, For 1 dose, Do not crush or break. 1653 (Given - Provider: Juan Salamanca RN) potassium [...] Juan Salamanca RN)1004 (New Bag - Provider: Jaun Salamanca RN) insulin regular (HUMULIN R;NOVOLIN R) [...] Salamanca RN)1742 (New Bag - Provider: Juan Salamanca RN)1846 (Rate/Dose Change - Provider: Juan Salamanca RN)1928 (Rate/Dose Change - Provider: Juan Salamanca [...] Salamanca RN)1110 (New Bag - Provider: Juan Salamanca RN)1251 (New Bag - Provider: Juan Salamanca, YARELI)1409 (New Bag - Provider: Juan Salamanca, YARELI)1519 (New Bag - Provider: Juan Salamanca, YARELI)1643 (New Bag - Provider: Juan Salamanca, YARELI)1815 (New Bag - Provider: Juan Salamanca, YARELI) [...] at 0216, For 1 dose, Vidhya Reyes: joannet override 0243 (Given - Provider: Vidhya Reyes [...] to the hypoglycemia management protocol on Ellucid: W-DW-Gyahtndfebsi Management Protocol Insulin regular (HUMULIN R;NOVOLIN R) [...] Alison Doherty RN)1215 (Stopped - Provider: Alison Doehrty RN) pioglitazone (ACTOS) tablet 30 mg 30 [...] Gibson, RN)211 (Rate/Dose Change - Provider: Abbie Gibson, RN)221 (Rate/Dose Change - Provider: Abbie Gibson, RN)2311 (Rate/Dose Change - Provider: Abbie Gibson, RN) 0018 (Rate/Dose Change - Provider: Abbie Gibson, RN)0117 (Rate/Dose Verify - Provider: Abbie Gibson RN)0222 (Rate/Dose Verify - Provider: Kwaku Tubbs RN)0323 (Rate/Dose Change - Provider: Abbie Gbison, RN)0420 (Rate/Dose Verify - Provider: Abbie Gibson, RN)0527 (Rate/Dose Verify - Provider: Abbie Gibson [...] 1928 ($$New Bag$$ - Provider: Abbie Gibson, YARELI)2044 (Rate/Dose Change - Provider: Abbie Gibson, RN)213 (Stopped - Provider: Abbie Gibson RN - Comment: D5NS started per order) PRN Medication Order 06/20/2022 06/21/202206/2206/22/2022 acetaminophen (TYLENOL) tablet 650 mg 650 mg, [...] less than 60 mg/ml. If unresponsive call MIXER CRANE OPERATOR ondansetron 4mg/2ml (ZOFRAN) injection 4 mg 4 mg, Intravenous, EVERY 6 HOURS NEEDED, Starting on Mon06/21/22 at 1718, Until Mon06/22/22 at 2023, Nausea / Vomiting 2021 (Given - Provider: Abbie Gibson, YARELI) 324 (Given - Provider: Abbie Gibson, YARELI) Linked Groups Order Group 1: Insulin regular [...] to the hypoglycemia management protocol on Ell: U-KV-Ehfngiooeivd Management Protocol
And dextrose 10% IV solution [...] less than 60 mg/ml. If unresponsive call MIXER CRANE OPERATOR
And NOTIFY PHYSICIAN, Blood Glucose LESS THAN 70 mg/dl or greater than 400 mg/dl (CANCELED) Routine, CONTINUOUS, Starting on Mon06/22/22 at 1046, Until Specified
Who to Notify: FORMER HAND/Physician
For all Blood Glucose LESS THAN 70 mg/dl, or greater than 400 mg/dl notify FORMER HAND/Physician Scheduled Medication Order 07/03/2022 07/04/2022 07/05/2022 0.9 [...] mg (COMPLETED) 10 mg, Oral, ONCE, On Mon08/04/24 at 1100, For 1 dose 1108 (Given - Provid er: Deondre Leo RN) ketorolac (TORADOL) injection 60 mg (COMPLETED) 60 mg, IntraMUSCular, ONCE, 1 dose, On 08/04/24 at 1100, Do not administer for more than 5 days. 1110 (Given - Provid er: Deondre Leo RN) ondansetron (ZOFRAN-ODT) disintegrating tablet 4 mg [...] Geneva Velez RN)2035 (Stopped - Provider: Geneva Velez RN) sodium chloride 0.9 % bolus 500 [...] given over 10 to 15 minutes 2053 (Fred Bag - Prov ider: Geneva Velez RN)2133 (Stopped - Provider: Geneva Velez RN) Scheduled Medication Order 08/31/2024 09/01/2024 09/02/2024 sodium chloride 0.9 % bolus 1,000 mL (COMPLETED) 1,000 mL (12.5 mL/kg), IntraVENous, at 1,000 mL/hr, Administer over 1 Hours, ONCE, On Mon09/02/24 at 1500, For 1 dose 1519 (New Bag - Prov ider: Geneva Demarco RN)1617 (Stopped - Provider: Goldie Starkey [...] Gladis Baird RN)2000 (Stopped - Provider: Goldie Starkey, YARELI) Scheduled Medication Order 09/02/2024 09/03/2024 09/04/2024 sodium [...] Apply patch to left low back. The physical therapy coordinator's recommendations for the number of patches that can be applied within a 24-hour period varies from 1 to 4 times daily and the duration of application varies from 8 to 24 hours; refer to the physical therapy coordinator's labeling for product-specific recommendations. 1353 (Patch Applied [...] Wolfe RN)1330 (Stopped - Provider: Maria Guadalupe Wolfe, RN) Care Teams (unrecognized sec tion and content) [employer] Relationship Specialty Start Date End Date Kavita Qureshi CNP [address] [place], [place] [phone] PCP - General Family Medicine 06/21/21 Geodetic Computator Relationship Specialty Start Date End Date Kavita Qureshi CNP [address] [place], [place] [id number] PCP - General Family Medicine 06/21/21 Geodetic Computator Relationship Specialty Start Date End Date Kavita Qureshi CNP [address] [place] [id number] PCP - General Family Medicine 06/21/21 Geodetic Computator Relationship Specialty Start Date End Date Kavita Qureshi CNP [address] [place] [phone] PCP - General Family Medicine 06/21/21 Ge[employer]etic Computator Relationship Specialty Start Date End Date Hardeep, Kavita, PREPRINT ANALYST [address] [place] [address] PCP - General Family Medicine 06/21/21 [employer]etic Computator Relationship Specialty Start Date End Date Kavita Qureshi APRN - FORMER HAND [address] [place] [address] PCP - General Certified Nurse Practitioner 08/04/24 Ge[employer]etic Computator Relationship Specialty Start Date End Date Kavita Qureshi APRN - FORMER HAND [address] [place] [address] PCP - General Certified Nurse Practitioner 08/04/24 Ge[employer]etic Computator Relationship Specialty Start Date End Date Kavita Qureshi APRN - FORMER HAND [address] [place] [address] PCP - General Certified Nurse Practitioner 08/04/24 Geodetic Computator Relationship Specialty Start Date End Date Kavita Qureshi APRN - FORMER HAND [address] [place] [address] PCP - General Certified Nurse Practitioner 08/04/24 Geodetic Computator Relationship Specialty Start Date End Date Kavita Qureshi APRN - FORMER HAND [address] [place] [address] PCP - General Certified Nurse Practitioner 08/04/24 Geodetic Computator Relationship Specialty Start Date End Date Kavita Qureshi APRN - FORMER HAND [address] [place] [address] PCP - General Certified Nurse Practitioner 08/04/24 Geodetic Computator Relationship Specialty Start Date End Date Kavita Qureshi PUTAWAY DRIVER - FORMER HAND [address] [place] [address] PCP - General Certified Nurse Practitioner 08/04/24 Geodetic Computator Relationship Specialty Start Date End Date Kavita Qureshi PUTAWAY DRIVER - FORMER HAND [address] [place] [address] PCP - General Certified Nurse Practitioner 08/04/24 Geodetic Computator Relationship Specialty Start Date End Date Kavita Qureshi PUTAWAY DRIVER - FORMER HAND [address] [place] [address] PCP - General Certified Nurse Practitioner 08/04/24 Geodetic Computator Relationship Specialty Start Date End Date Kavita Qureshi PUTAWAY DRIVER - FORMER HAND [address] [place] [address] PCP - General Certified Nurse Practitioner 08/04/24 Geodetic Computator Relationship Specialty Start Date End Date Kavita Qureshi PUTAWAY DRIVER - FORMER HAND [address] [place] [address] PCP - General Certified Nurse Practitioner 08/04/24 Geodetic Computator Relationship Specialty Start Date End Date Kavita Qureshi PUTAWAY DRIVER - FORMER HAND [address] [place] [address] PCP - General Certified Nurse Practitioner 08/04/24 Geodetic Computator Relationship Specialty Start Date End Date Kavita Qureshi PUTAWAY DRIVER - FORMER HAND [address] [place] [address] PCP - General Certified Nurse Practitioner 08/04/24 Geodetic Computator Relationship Specialty Start Date End Date Kavita QureshiRICHARDSONN - FORMER HAND [address] [place] [address] PCP - General Certified Nurse Practitioner 08/04/24 Geodetic Computator Relationship Specialty Start Date End Date HardeepKavita APRN - FORMER HAND [address] [place] [address] PCP - General Certified Nurse Practitioner 08/04/24 Geodetic Computator Relationship Specialty Start Date End Date HardeepNadineie JOLENE [place] - FORMER HAND [address] [place] [address] PCP - General Certified Nurse Practitioner 08/04/24 Ge[employer]etic Computator Relationship Specialty Start Date End Date HardeepNadineie Preet PUTAWAY DRIVER - FORMER HAND [address] [place] [address] PCP - General Certified Nurse Practitioner 08/04/24 INFORMATION SOURCE (unrecogn ized section and content) DATE CREATED AUTHOR 08/13/2022 [facility] DATE CREATED AUTHOR AUTHOR'S ORGANIZ ATION 09/08/2022 [facility] DATE CREATED AUTHOR AUTHOR'S ORGANIZ ATION 09/09/2024 [facility] DATE CREATED AUTHOR AUTHOR'S ORGANIZ ATION 02/28/2025 [facility] DATE CREATED AUTHOR AUTHOR'S ORGANIZ ATION 03/15/2025 [facility] FOR RECORDS PERTAINING TO PATIENTS WHO [...] BE BASED ON THE PRIMARY CLINICAL RECORDS. [facility] [employer] [facility]. provides no warranty or guarantee of the accuracy or completeness of information in this document.
[2025-03-31 07:58] VITALS: BP 108/66; PULSE 109; TEMP 37; O2SAT 97
[2025-03-31 08:37] VITALS: BP 134/70; PULSE 108; O2SAT 96
[2025-03-31 08:39] VITALS: BP 134/71; PULSE 106; O2SAT 96
[2025-03-31] MEDS: LIDOCAINE HCL 2% 400 MG/20 ML MDV INJ (08:46)
[2025-03-31] MEDS: BUPIVACAINE HCL 0.25% PF 25 MG/10 ML VIAL 18 ML INJ (08:46)
[2025-03-31] MEDS: IOHEXOL 240 MG/ML - 10 ML VIAL 24 MG INJ (08:46)
[2025-03-31] MEDS: METHYLPREDNISOLONE ACETATE 40 MG/ML VIAL 80 MG IM (08:47)
--- NOTE | 2025-03-31 08:48 | W.PM.PROCNOT ---
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 A timeout was completed verifying the correct patient, procedure site, position, and special equipment.? The right T7 rib was contacted with the needle tip 1 cm lateral to the costotransverse junction and the needle tip was walked caudally.? Omnipaque dye was injected to show adequate spread.? The above-mentioned injectate was placed in 1 mL aliquots and the procedure was repeated at right T8, 9 ribs. The same procedure was then completed on the opposite side.? The patient tolerated the procedures well and was found suitable for discharge in the accompaniment of a responsible adult. Anesthesia: Local Surgeon: Ivana Velasquez Pathology: none sent Condition: stable Disposition: no change
--- NOTE | 2025-03-31 08:51 | PC.NURSE ---
PAIN 4/10 UPON D/C
== END 2025-03-31 08:50 | disposition home or self-care (01) ==
PROVIDERS: Visit Provider Anesthesiology
DX: G58.0 Intercostal neuropathy (principal); E11.8 Type 2 diabetes mellitus with unspecified complications; Z79.85 Long-term (current) use of injectable non-insulin antidiabetic drugs
CPT/HCPCS: 36415; 64420; 64421; 82948; J0665; J1010; Q9966

== ENCOUNTER 2025-04-09 09:46 | Outpatient (OUT) | payer OTHER, SELFPAY ==
--- OUTSIDE RECORDS SUMMARY | 2025-04-09 09:55 | XMS_ITS | CCD ---
Author Organization [facility] ion [facility] Care Team Providers Care Director [employer] Name Role Phone Roverto Barbour Primary Care Provider [phone] Unavailable Primary Care Provider Unavailabl e Hardeep Kavita JIMENEZ Primary Care Provider Hardeep Kavita JIMENEZ Primary Care Provider [phone] Hardeep Kavita JIMENEZ Primary Care Provider [phone] Hardeep Kavita JIMENEZ Primary Care Provider [phone] Unavailable Primary Care Provider Unavailabl e [...] Hardeep Kavita JIMENEZ Primary Care Provider [phone] HardeepKavita wylie CNP Unavailable Unavailable Primary Care Provider Unavailabl e Hardeep FACIAL OPERATOR - SENIOR ELECTRICAL CONTROLS ENGINEERKavita L Primary Care Provider AME SALDANA Attending [...] Andrius Patel Attending Unavailable Giedraitis , Andrius Vjess Attending Unavailable Giedraitis , Andrius Vyttong Attending Unavailable Gieditis , Andrius Vyttong Attending Unavailable Allergies Allergy Classification Reported Allergen(s) Allergy Type Date of Onset Reaction(s) Facility (13 sources) Penicillins Propensity to adverse reactions to drug 1 Other (See Comments) [place], [place] (20 sources) Pravastatin Drug Allergy 1 Hives [facility] [place], [place] (20 sources) Hmg-Coa Reductase Inhibitors (Statins); Translations: [Statins] Allergy to substance 1 Hives / Urticaria [facility] (6 sources) house dust allergenic extract Drug Allergy 1 [facility] Work Phone: (6 sources) Penicillins (Antibiotic) Allergy to substance 1 [facility] Work Phone: (20 sources) Penicillins Propensity to adverse reactions to drug 1 Other (See Comments), Hives / Urticaria [facility] Work Phone: (12 sources) gabapentin Drug Allergy 5 Compliance 360 Medications Current Medications Medication Drug Class(es) Dates Sig (Normalized) Sig (Original) *CPAP SUPPLIES Miscellaneous (15 sources) Start: 06-02-2021 *CPAP SUPPLIES Miscellaneous 06/02/2021 Provider: Kavita Qureshi [facility] [id number] 200 actuat albuterol 0.09 mg/actuat metered dose [...] Blood Gluc Receiv er (FreeStyle Titus 2 [place] [employer]) Device (5 sources) Start: 08-03-2021 Continuous [...] take 2 capsules by mouth once daily [place]-3 Fatty Acids (FISH OIL) 1000 MG CAPS [...] (Stop Taking at Discharge) polyethylene glycol 3350 41665 mg powder for oral solution (1 source) [...] Apply patch to left low back. The medical assembler's recommendations for the number of patches that can be applied within a 24-hour period varies from 1 to 4 times daily and the duration of application varies from 8 to 24 hours; refer to the medical assembler's labeling for product-specific recommendations. Start: 04-14-2021 lidocaine 4 % external patch 1 patch lisinopril 2.5 mg oral tablet (20 sources) Angiotensin Converting Enzyme Inhibitor Start: 04-16-2021 End: 09-04-2024 Lisinopril 2.5 MG Oral Tablet 04/16/2021 - 06/06/2024 Provider: Start: 04-15-2021 lisinopril (MD INIVIL;ZESTRIL) tablet 2.5 mg Start: 04-14-2021 End: [...] Tablet 11/27/2024 - 12/31/2024 Provider: Kavita Qureshi SPOILAGE WORKER Problems Active Problems Problem Classification Problem Date [...] Differentialon 02-26-2025 Basophils (Bld) [#/Vol] 0.05 10*3/uL Compliance 360 Basophils/100 WBC (Bld) 1 % 0 - 2 % Compliance 360 Eosinophils (Bld) [#/Vol] 0.06 10*3/uL Compliance 360 Eosinophils/100 WBC (Bld) 1 % 0 - 5 % [employer] [facility] Erythrocyte distribution width (RBC) [Ratio] 12.4 % 12.1 - 15.2 % Compliance 360 Hematocrit (Bld) [Volume fraction] 47.7 % High 36.0 - 46.0 % Compliance 360 Hemoglobin (Bld) [Mass/Vol] 16.3 g/dL High 12.0 - 16.0 g/dL [facility] Immature granulocytes (Bld) [#/Vol] 0.01 10*3/uL [facility] Immature granulocytes/100 WBC (Bld) 0 % 0 - 5 % [facility] Interpretation and review of laboratory results Abnormal [facility] Lymphocytes/100 WBC (Bld) 30 % 15 - 40 % [facility] Lymphocytes/100 WBC (Bld) 2.35 % [facility] MCH (RBC) [Entitic mass] 28.3 pg 26.0 - 34.0 pg [facility] MCHC (RBC) [Mass/Vol] 34.2 g/dL 31.0 - 37.0 g/dL [facility] MCV (RBC) [Entitic vol] 82.8 fL 80.0 - 100.0 fL [facility] Monocytes/100 WBC (Bld) 8 % 4 - 8 % [facility] Monocytes/100 WBC (Bld) 0.65 % [facility] Neutrophils/100 WBC (Bld) 60 % 47 - 75 % [facility] Platelet mean volume (Bld) [Entitic vol] 9.7 fL 6.0 - 12.0 fL [facility] Platelets (Bld) [#/Vol] 382 10*3/uL [facility] RBC (Bld) [#/Vol] 5.76 10*6/uL High 4.00 - 5.2 0 m/uL [facility] Segmented neutrophils/100 WBC (Bld) 4.72 % [facility] WBC other (Bld) [#/Vol] 7.8 [facility] CBC with Diffon 02-26-2025 Abs. Basophil 0.05 k/uL Normal 0.00-0.20 [facility] Comment on above: Performed By: #### L IP, MG, CDP, TROPI, CP, TSH ####[facility] [address] [place] [address] lab Director: Miller Shirley MD#### FT4 ####[address] [place], [place] [address])[phone] Director: Jin Louise MD Abs.Imm.Granulocyte 0.01 k/uL Normal 0.00-0.30 [facility] Comment on above: Performed By: #### L IP, MG, CDP, TROPI, CP, TSH ####[facility] [address] [place], [place] [address])[phone] Director: Miller Shirley MD#### FT4 ####[place] [address] Lab Director: Jin Louise MD Abs.Neutrophil (Seg) 4.72 k/uL Normal 2.5-7.0 [facility] Comment on above: Performed By: #### L IP, MG, CDP, TROPI, CP, TSH ####[facility] [id number] [place], [place] [address])[phone] Director: Miller Shirley MD#### FT4 ####[place] [address] Lab Director: Jin Louise MD Basophils/100 WBC (Bld) 1 % Normal 0-2 [facility] Comment on above: Performed By: #### L IP, MG, CDP, TROPI, CP, TSH ####[facility] [address] [place], [place] [address])[phone] Director: Miller Shirley MD#### FT4 ####[place], [place] [address])[phone] Director: Jin Louise MD Eosinophils (Bld) [#/Vol] 0.06 10*3/uL Normal 0.00-0.40 [facility] Comment on above: Performed By: #### L IP, MG, CDP, TROPI, CP, TSH ####[facility] [address] [place] [address] Ewq Director: Miller Shirley MD#### FT4 ####[place] [address] Lab Director: Jin Louise MD Eosinophils/100 WBC (Bld) 1 % Normal 0-5 [facility] Comment on above: Performed By: #### L IP, MG, CDP, TROPI, CP, TSH ####[facility] [id number]([facility])[phone] Director: Miller Shirley MD#### FT4 ####[place] [address] lab Director: Jin Louise MD Erythrocyte distribution width (RBC) [Ratio] 12.4 % Normal 12.1-15.2 [facility] Comment on above: Performed By: #### L IP, MG, CDP, TROPI, CP, TSH ####[facility] [phone] lab Director: Miller Shirley MD#### FT4 ####[place] [address] Lab Director: Jin Louise MD Hematocrit (Bld) [Volume fraction] 47.7 % High 36.0-46.0 [facility] Comment on above: Performed By: #### L IP, MG, CDP, TROPI, CP, TSH ####[facility] [phone] Lab Director: Miller Shirley MD#### FT4 ####[place] [address] Lab Director: Jin Louise MD Hemoglobin (Bld) [Mass/Vol] 16.3 g/dL High 12.0-16.0 [facility] Comment on above: Performed By: #### L IP, MG, CDP, TROPI, CP, TSH ####[facility] [address] [place] [address] Lab Director: Miller Shirley MD#### FT4 ####[address] [place], [place] [phone] Director: Jin Louise MD Immature granulocytes/100 WBC (Bld) 0 % Normal 0-5 [facility] Comment on above: Performed By: #### L IP, MG, CDP, TROPI, CP, TSH ####[facility] [address]fs[address] [place] [address] Lab Director: Miller Shirley MD#### FT4 ####[address] [address] Lab Director: Jin Louise MD Lymphocytes (Bld) [#/Vol] 2.35 10*3/uL Normal 1.00-4.80 [facility] Comment on above: Performed By: #### L IP, MG, CDP, TROPI, CP, TSH ####[facility] [address] [place] [address] Lab Director: Miller Shirley MD#### FT4 ####[address] [address] Lab Director: Jin Louise MD Lymphocytes/100 WBC (Bld) 30 % Normal 15-40 [facility] Comment on above: Performed By: #### L IP, MG, CDP, TROPI, CP, TSH ####[facility] [address] [place] [address] Lab Director: Miller Shirley MD#### FT4 ####[address] [place], [place] [phone] Director: Jin Louise MD MCH (RBC) [Entitic mass] 28.3 pg Normal 26.0-34.0 [facility] Comment on above: Performed By: #### L IP, MG, CDP, TROPI, CP, TSH ####[facility] [address] [place], [place] [address])[phone] Director: Miller Shirley MD#### FT4 ####[place] [address] Lab Director: Jin Louise MD MCHC (RBC) [Mass/Vol] 34.2 g/dL Normal 31.0-37.0 [facility] Comment on above: Performed By: #### L IP, MG, CDP, TROPI, CP, TSH ####[facility] [address] [place], [place] [address])[phone] Director: Miller Shirley MD#### FT4 ####[place], [place] [address])[phone] Director: Jin Louise MD MCV (RBC) [Entitic vol] 82.8 fL Normal 80.0-100.0 [facility] Comment on above: Performed By: #### L IP, MG, CDP, TROPI, CP, TSH ####[facility] [address] [place] [address] Lab Director: Miller Shirley MD#### FT4 ####[place] [address] Lab Director: Jin Louise MD Monocytes (Bld) [#/Vol] 0.65 10*3/uL Normal 0.00-1.00 [facility] Comment on above: Performed By: #### L IP, MG, CDP, TROPI, CP, TSH ####[facility] [address] [place], [place] [address])[phone] Director: Miller Shirley MD#### FT4 ####[place] [address] Lab Director: Jin Louise MD Monocytes/100 WBC (Bld) 8 % Normal 4-8 [facility] Comment on above: Performed By: #### L IP, MG, CDP, TROPI, CP, TSH ####[facility] [address] [place] [address] Lab Director: Miller Shirley MD#### FT4 ####[address] [address] Lab Director: Jin Louise MD Neutrophil (Seg) 60 % Normal 47-75 [facility] Comment on above: Performed By: #### L IP, MG, CDP, TROPI, CP, TSH ####[facility] [address] [place] [address] Lab Director: Miller Shirley MD#### FT4 ####[address] [address] Lab Director: Jin Louise MD Platelet mean volume (Bld) [Entitic vol] 9.7 fL Normal 6.0-12.0 [facility] Comment on above: Performed By: #### L IP, MG, CDP, TROPI, CP, TSH ####[facility] [address] [place] [address] Lab Director: Miller Shirley MD#### FT4 ####[address] [address] Lab Director: Jin Louise MD Platelets (Bld) [#/Vol] 382 10*3/uL Normal 140-450 [facility] Comment on above: Performed By: #### L IP, MG, CDP, TROPI, CP, TSH ####[facility] [address] [place] [address] Lab Director: Miller Shirley MD#### FT4 ####[facility] [address] [place], [place] [phone] Director: Jin Louise MD RBC (Bld) [#/Vol] 5.76 10*6/uL High 4.00-5.20 [facility] Comment on above: Performed By: #### L IP, MG, CDP, TROPI, CP, TSH ####[facility] [address] [place], [place] [phone])[phone] Director: Miller Shirley MD#### FT4 ####[address] [place], [place] [phone])[phone] Director: Jin Louise MD WBC (Bld) [#/Vol] 7.8 10*3/uL Normal 3.5-11.0 [facility] Comment on above: Performed By: #### L IP, MG, CDP, TROPI, CP, TSH ####[facility] [address] [place], [place] [address])[phone] Director: Miller Shirley MD#### FT4 ####[address] [address])[phone] Director: Jin Louise MD Comp Metabolic Profon 2024 Albumin [Mass/Vol] 4.6 g/dL Normal 3.5-5.2 [facility] Comment on above: Performed By: #### L IP, MG, CDP, TROPI, CP, TSH ####[facility] [address] [place], [place] [phone])[phone] Director: Miller Shirley MD#### FT4 ####[address] [phone] Director: Jin Louise MD Albumin/Glob Ratio 1.4 Normal 1.0-2.5 [facility] Comment on above: Performed By: #### L IP, MG, CDP, TROPI, CP, TSH ####[facility] [address] [place], [place] [phone] Lab Director: Miller Shirley MD#### FT4 ####[address] [place] [address] Lab Director: Jin Louise MD Alkaline Phos 115 U/L High 35-104 [facility] Comment on above: Performed By: #### L IP, MG, CDP, TROPI, CP, TSH ####[facility] [address] [place], [place] [phone] Lab Director: Miller Shirley MD#### FT4 ####[address] [address] Lab Director: Jin Louise MD ALT [Catalytic activity/Vol] 15 U/L Normal 5-33 [facility] Comment on above: Performed By: #### L IP, MG, CDP, TROPI, CP, TSH ####[facility] [address] [place], [place] [phone] Lab Director: Miller Shirley MD#### FT4 ####[address] [address] Lab Director: Jin Louise MD Anion gap [Moles/Vol] 16 mmol/L Normal 9-17 [facility] Comment on above: Performed By: #### L IP, MG, CDP, TROPI, CP, TSH ####[facility] [address] [place], [place] [phone] Lab Director: Miller Shirley MD#### FT4 ####[address] [address] Lab Director: Jin Louise MD AST [Catalytic activity/Vol] 17 U/L Normal <32 [facility] Comment on above: Performed By: #### L IP, MG, CDP, TROPI, CP, TSH ####[facility] [address] [place] [address] Lab Director: Miller Shirley MD#### FT4 ####[facility] [place] [address] Lab Director: Jin Louise MD Bilirubin [Mass/Vol] 0.8 mg/dL Normal 0.3-1.2 [facility] Comment on above: Performed By: #### L IP, MG, CDP, TROPI, CP, TSH ####[facility] Q[address] [place], [place] [phone] Lab Director: Miller Shirley MD#### FT4 ####[address] [address] Lab Director: Jin Louise MD Calcium [Mass/Vol] 10.0 mg/dL Normal 8.6-10.4 [facility] Comment on above: Performed By: #### L IP, MG, CDP, TROPI, CP, TSH ####[facility] [address] [place] [address] Lab Director: Miller Shirley MD#### FT4 ####[address] [place] [address] Lab Director: Jin Louise MD Chloride [Moles/Vol] 93 mmol/L Low 98-107 [facility] Comment on above: Performed By: #### L IP, MG, CDP, TROPI, CP, TSH ####[facility] [address] [place] [address] Lab Director: Miller Shirley MD#### FT4 ####[facility] [place] [address] Lab Director: Jin Louise MD CO2 [Moles/Vol] 24 mmol/L Normal 20-31 [place] Comment on above: Performed By: #### L IP, MG, CDP, TROPI, CP, TSH ####[facility] [address] [place] [address] Lab Director: Miller Shirley MD#### FT4 ####[address] [place] [address] Lab Director: Jin Louise MD Creatinine [Mass/Vol] 0.6 mg/dL Normal 0.5-0.9 [facility] Comment on above: Performed By: #### L IP, MG, CDP, TROPI, CP, TSH ####[facility] [address]ss[address] [place], [place] [phone] lab Director: Miller Shirley MD#### FT4 ####[address] [phone] Lab Director: Jin Louise MD GFR/1.73 sq M.predicted among non-blacks MDRD (S/P/Bld) [Vol rate/Area] mL/min/{1.73_m2} Normal >60 [facility] Comment on above: Result Comment: These [...] L IP, MG, CDP, TROPI, CP, TSH ####[facility] [address] [place] [address] Lab Director: Miller Shirley MD#### FT4 ####[facility] [place] [address] Lab Director: Jin Louise MD Glucose [Mass/Vol] 293 mg/dL High 70-99 [facility] Comment on above: Performed By: #### L IP, MG, CDP, TROPI, CP, TSH ####[facility] [address] [place] [address] Lab Director: Miller Shirley MD#### FT4 ####[address] [place] [address] Lab Director: Jin Louise MD Potassium [Moles/Vol] 4.1 mmol/L Normal 3.7-5.3 [facility] Comment on above: Performed By: #### L IP, MG, CDP, TROPI, CP, TSH ####[facility] [address] [place] [address] Lab Director: Miller Shirley MD#### FT4 ####[address] [place] [address] Lab Director: Jin Louise MD Protein [Mass/Vol] 7.9 g/dL Normal 6.4-8.3 [facility] Comment on above: Performed By: #### L IP, MG, CDP, TROPI, CP, TSH ####[facility] [address] [place] [address] Lab Director: Miller Shirley MD#### FT4 ####[address] [place] [address] Lab Director: Jin Louise MD Sodium [Moles/Vol] 133 mmol/L Low 135-144 [facility] Comment on above: Performed By: #### L IP, MG, CDP, TROPI, CP, TSH ####[facility] [address] [place], [place] [phone] Lab Director: Miller Shirley MD#### FT4 ####[address] [place], [place] 5822[address] Lab Director: Jin Louise MD Urea nitrogen [Mass/Vol] 15 mg/dL Normal 6-20 [facility] Comment on above: Performed By: #### L IP, MG, CDP, TROPI, CP, TSH ####[facility] [address] [place] [address] lab Director: Miller Shirley MD#### FT4 ####[facility] [address] [place], [place] 1151208 lab Director: Jin Louise MD Comprehensive Metabolic Pane [facility] 02-26-2025 Albumin [Mass/Vol] 4.6 g/dL 3.5 - 5.2 g/dL [facility] Albumin/Globulin [Mass ratio] 1.4 {ratio} 1.0 - 2.5 [facility] ALP [Catalytic activity/Vol] 115 U/L High 35 - 104 U/L [facility] ALT [Catalytic activity/Vol] 15 U/L 5 - 33 U/L [facility] Anion gap [Moles/Vol] 16 mmol/L 9 - 17 mmol/L [facility] AST [Catalytic activity/Vol] 17 U/L NINF - 32 U/L [facility] Bilirubin [Mass/Vol] 0.8 mg/dL 0.3 - 1 .2 mg/dL [facility] Calcium [Mass/Vol] 10.0 mg/dL 8.6 - 10. 4 mg/dL [facility] Chloride [Moles/Vol] 93 mmol/L Low 98 - 10 7 mmol/L [facility] CO2 [Moles/Vol] 24 mmol/L 20 - 31 mmol/L [facility] Creatinine [Mass/Vol] 0.6 mg/dL 0.5 - 0.9 mg/dL [facility] Est, Glom Filt Rate - PINF [facility] Comment on above: These results are not [...] 293 mg/dL High 70 - 99 mg/dL [facility] Potassium [Moles/Vol] 4.1 mmol/L 3.7 - 5.3 mmol/L [facility] Protein [Mass/Vol] 7.9 g/dL 6.4 - 8.3 g/dL [facility] Sodium [Moles/Vol] 133 mmol/L Low 135 - 144 mmol/L [facility] Urea nitrogen [Mass/Vol] 15 mg/dL 6 - 20 mg/dL [facility] Laboratory - Chemistry and C hemistry - challengeon 02-26-2025 Albumin [Mass/Vol] 4.6 g/dL (3.5-5.2 ) [facility] Comment on above: Note: Responsible Ob sql server bi developer: [email or web address] AUTOFILE ([id number]) ALT [Catalytic activity/Vol] 15 U/L (5-33 ) [facility] Comment on above: Note: Responsible Ob sql server bi developer: [email or web address] AUTOFILE ([id number]) Anion gap [Moles/Vol] 16 mmol/L (9-17 ) [facility] Comment on above: Note: Responsible Ob sql server bi developer: [email or web address] AUTOFILE ([id number]) AST [Catalytic activity/Vol] 17 U/L (<32 ) [facility] Comment on above: Note: Responsible Ob sql server bi developer: [email or web address] AUTOFILE ([id number]) Bilirubin [Mass/Vol] 0.8 mg/dL (0.3-1.2 ) [facility] Comment on above: Note: Responsible Ob sql server bi developer: [email or web address] AUTOFILE ([id number]) Calcium [Mass/Vol] 10.0 mg/dL (8.6-10.4 ) [facility] Comment on above: Note: Responsible Ob sql server bi developer: [email or web address] AUTOFILE ([id number]) Chloride [Moles/Vol] 93 mmol/L Low (98-107 ) [facility] Comment on above: Note: Responsible Ob sql server bi developer: [email or web address] AUTOFILE ([id number]) CO2 [Moles/Vol] 24 mmol/L (20-31 ) [facility] Comment on above: Note: Responsible Ob sql server bi developer: [email or web address] AUTOFILE ([id number]) Creatinine [Mass/Vol] 0.6 mg/dL (0.5-0.9 ) [facility] Comment on above: Note: Responsible Ob sql server bi developer: [email or web address] AUTOFILE ([id number]) GFR/1.73 sq M.predicted among non-blacks MDRD (S/P/Bld) [Vol rate/Area] mL/min/{1.73_m2} (>60 ) [facility] Comment on above: Note: These results are [...] Glucose [Mass/Vol] 293 mg/dL High (70-99 ) [facility] Comment on above: Note: Responsible Ob sql server bi developer: [email or web address] AUTOFILE ([id number]) Lipase [Catalytic activity/Vol] 96 U/L High (13-60 ) [facility] Comment on above: Note: Responsible Ob sql server bi developer: [email or web address] AUTOFILE ([id number]) Magnesium [Mass/Vol] 2.1 mg/dL (1.6-2.6 ) [facility] Comment on above: Note: Responsible Ob sql server bi developer: [email or web address] AUTOFILE ([id number]) Potassium [Moles/Vol] 4.1 mmol/L (3.7-5.3 ) [facility] Comment on above: Note: Responsible Ob sql server bi developer: [email or web address] AUTOFILE ([id number]) Protein [Mass/Vol] 7.9 g/dL (6.4-8.3 ) [facility] Comment on above: Note: Responsible Ob sql server bi developer: [email or web address] AUTOFILE ([id number]) Sodium [Moles/Vol] 133 mmol/L Low (135-144 ) [facility] Comment on above: Note: Responsible Ob sql server bi developer: [email or web address] AUTOFILE ([id number]) Urea nitrogen [Mass/Vol] 15 mg/dL (6-20 ) [facility] Comment on above: Note: Responsible Ob sql server bi developer: [email or web address] AUTOFILE ([id number]) Laboratory - Hematology and Cell countson 02-26-2025 Basophils/100 WBC (Bld) 1 % (0-2 ) [facility] Comment on above: Note: Responsible Ob sql server bi developer: LIVE AUTOFILE ([id number]) Eosinophils (Bld) [#/Vol] 0.06 10*3/uL (0.00-0.40 ) [facility] Comment on above: Note: Responsible Ob sql server bi developer: LIVE AUTOFILE ([id number]) Eosinophils/100 WBC (Bld) 1 % (0-5 ) [facility] Comment on above: Note: Responsible Ob sql server bi developer: LIVE AUTOFILE ([id number]) Erythrocyte distribution width (RBC) [Ratio] 12.4 % (12.1-15.2 ) [facility] Comment on above: Note: Responsible Ob sql server bi developer: LIVE AUTOFILE ([id number]) Hematocrit (Bld) [Volume fraction] 47.7 % High (36.0-46.0 ) [facility] Comment on above: Note: Responsible Ob sql server bi developer: LIVE AUTOFILE ([id number]) Hemoglobin (Bld) [Mass/Vol] 16.3 g/dL High (12.0-16.0 ) [facility] Comment on above: Note: Responsible Ob sql server bi developer: LIVE AUTOFILE ([id number]) Immature granulocytes/100 WBC (Bld) 0 % (0-5 ) [facility] Comment on above: Note: Responsible Ob sql server bi developer: LIVE AUTOFILE ([id number]) Lymphocytes (Bld) [#/Vol] 2.35 10*3/uL (1.00-4.80 ) [facility] Comment on above: Note: Responsible Ob sql server bi developer: LIVE AUTOFILE ([id number]) Lymphocytes/100 WBC (Bld) 30 % (15-40 ) [facility] Comment on above: Note: Responsible Ob sql server bi developer: LIVE AUTOFILE ([id number]) MCH (RBC) [Entitic mass] 28.3 pg (26.0-34.0 ) [facility] Comment on above: Note: Responsible Ob sql server bi developer: LIVE AUTOFILE ([id number]) MCHC (RBC) [Mass/Vol] 34.2 g/dL (31.0- 37.0 ) [facility] Comment on above: Note: Responsible Ob sql server bi developer: LIVE AUTOFILE ([id number]) MCV (RBC) [Entitic vol] 82.8 fL (80.0-100.0 ) [facility] Comment on above: Note: Responsible Ob sql server bi developer: LIVE AUTOFILE ([id number]) Monocytes (Bld) [#/Vol] 0.65 10*3/uL (0.00-1.00 ) [facility] Comment on above: Note: Responsible Ob sql server bi developer: LIVE AUTOFILE ([id number]) Monocytes/100 WBC (Bld) 8 % (4-8 ) [facility] Comment on above: Note: Responsible Ob sql server bi developer: LIVE AUTOFILE ([id number]) Platelet mean volume (Bld) [Entitic vol] 9.7 fL (6.0-12.0 ) [facility] Comment on above: Note: Responsible Ob sql server bi developer: LIVE AUTOFILE ([id number]) Platelets (Bld) [#/Vol] 382 10*3/uL (140-450 ) [facility] Comment on above: Note: Responsible Ob sql server bi developer: LIVE AUTOFILE ([id number]) RBC (Bld) [#/Vol] 5.76 10*6/uL High (4.00-5.20 ) [facility] Comment on above: Note: Responsible Ob sql server bi developer: LIVE AUTOFILE ([id number]) Segmented neutrophils/100 WBC (Bld) 60 % (47-75 ) [facility] Comment on above: Note: Responsible Ob sql server bi developer: LIVE AUTOFILE ([id number]) WBC (Bld) [#/Vol] 7.8 10*3/uL (3.5-11.0 ) [facility] Comment on above: Note: Responsible Ob sql server bi developer: LIVE AUTOFILE ([id number]) Lipaseon 02-26-2025 Lipase [Catalytic activity/Vol] 96 U/L High 13 - 60 U/L [facility] Lipase [Catalytic activity/Vol] 96 U/L High 13-60 [facility] Comment on above: Performed By: #### L IP, MG, CDP, TROPI, CP, TSH ####[facility] [id number] [place] [address] lab Director: Milelr Shirley MD#### FT4 ####[facility] [place], [place] [id number] lab Director: Jin Louise MD Magnesiumon 02-26-2025 Magnesium [Mass/Vol] 2.1 mg/dL 1.6 - 2 .6 mg/dL [facility] Magnesium [Mass/Vol] 2.1 mg/dL Normal 1.6-2.6 [facility] Comment on above: Performed By: #### L IP, MG, CDP, TROPI, CP, TSH ####[facility] [id number] [facility] [place], [place] [id number] lab Director: Miller Shirley MD#### FT4 ####[place] [address] [place] [id number] lab Director: Jin Louise MD No Panel Informationon 02-26 Interpretation and review of laboratory results Abnormal [facility] Abs. Basophil 0.05 k/uL (0.00-0.20 ) [facility] Comment on above: Note: Responsible Ob sql server bi developer: LIVE AUTOFILE ([id number]) Abs.Imm.Granulocyte 0.01 k/uL (0.00-0. 30 ) [facility] Comment on above: Note: Responsible Ob sql server bi developer: LIVE AUTOFILE ([id number]) Abs.Neutrophil (Seg) 4.72 k/uL (2.5-7.0 ) [facility] Comment on above: Note: Responsible Ob sql server bi developer: LIVE AUTOFILE ([id number]) Albumin/Glob Ratio 1.4 (1.0-2.5 ) [facility] Comment on above: Note: Responsible Ob sql server bi developer: [email or web address] AUTOFILE ([id number]) Alkaline Phos 115 U/L High (35-104 ) [facility] Comment on above: Note: Responsible Ob sql server bi developer: [email or web address] AUTOFILE ([id number]) Reported Physicians See Note [facility] Comment on above: Note: Reported Physi cians:Ordering: Génesis LANending: BEKAH LANReferring: Kavita Qureshi Thyroid Stim. Horm. 0.75 uIU/mL (0.27-4. 20 ) [facility] Comment on above: Note: Responsible Ob sql server bi developer: [email or web address] AUTOFILE ([id number]) Thyroxine, Free 1.7 ng/dL (0.9-1.7 ) [facility] Comment on above: Note: Responsible Ob sql server bi developer: [id number] AUTOFILE ([id number]) Troponin, High Sens 18 ng/L High (0-14 ) [facility]alt [facility] Comment on above: Note: High Sensitivi ty Troponin values cannot be compared with other Troponinmethodologies.Responsible Observer: [email or web address] AUTOFILE ([id number]) TSHon 02-26-2025 TSH Qn 0.75 m[IU]/L [facility] Thyroid Stim. Horm.on 2024 Thyroid Stim. Horm. 0.75 uIU/mL Normal 0.27-4.20 [facility] Comment on above: Performed By: #### L IP, MG, CDP, TROPI, CP, TSH ####[facility] [id number] [place], [place] [id number] lab Director: Miller Shirley MD#### FT4 ####[address] [id number] lab Director: Jin Louise MD Thyroxine, Freeon 02-26-2025 Thyroxine, Free 1.7 ng/dL Normal 0.9-1.7 [place] Comment on above: Performed By: #### L IP, MG, CDP, TROPI, CP, TSH ####[facility] [address] [place], [place] [address] lab Director: Miller Shirley MD#### FT4 ####[place] [address] [place], [place] [id number] lab Director: Jin Louise MD Troponinon 02-26-2025 Troponin I.cardiac High sensitivity method [Mass/Vol] 18 ng/L High 0 - 14 ng/L [facility] Comment on above: High Sensitivity Tro ponin values cannot be compared with other Troponin methodologies. Troponin, High Sens 18 ng/L High 0-14 [facility] Comment on above: Result Comment: High Sensitivity Troponin values cannot be compared with other Troponin methodologies. Performed By: #### L IP, MG, CDP, TROPI, CP, TSH ####[facility] [address] [place] [address] Lab Director: Miller Shirley MD#### FT4 ####[facility] [address] [place] [address] Lab Director: Jin Louise MD MRI LUMBAR [...] Juan Denney MD 12/09/24 Final result Normal [facility] Basic Metabolic Panelon 08-18 Anion gap [Moles/Vol] 13 mmol/L 9 - 17 mmol/L [facility] Calcium [Mass/Vol] 9.8 mg/dL 8.6 - 10. 4 mg/dL [facility] Chloride [Moles/Vol] 95 mmol/L Low 98 - 10 7 mmol/L [facility] CO2 [Moles/Vol] 26 mmol/L 20 - 31 mmol/L [facility] Creatinine [Mass/Vol] 0.5 mg/dL 0.5 - 0.9 mg/dL [facility] Est, Glom Filt Rate - PINF [facility] Comment on above: These results are not [...] 215 mg/dL High 70 - 99 mg/dL [facility] Potassium [Moles/Vol] 4.2 mmol/L 3.7 - 5.3 mmol/L [facility] Sodium [Moles/Vol] 134 mmol/L Low 135 - 144 mmol/L [facility] Urea nitrogen [Mass/Vol] 11 mg/dL 6 - 20 mg/dL [facility] Basic Metabolic Profon 09-09 Anion gap [Moles/Vol] 13 mmol/L Normal 9-17 [facility] Comment on above: Performed By: #### T ROSETTA, LISSET, BMP, CDP, BNP #### [facility] [address] [place] [address] Early Childhood: Mliler Shirley MD Calcium [Mass/Vol] 9.8 mg/dL Normal 8.6-10.4 [facility] Comment on above: Performed By: #### T ROPI, DIME, BMP, CDP, BNP #### [facility] [address] [place], [place] [id number] Early Childhood: Miller Shirley MD Chloride [Moles/Vol] 95 mmol/L Low 98-107 [facility] Comment on above: Performed By: #### T ROPI, DIME, BMP, CDP, BNP #### [facility] [address] [place] [address] Early Childhood: Miller Shirley MD CO2 [Moles/Vol] 26 mmol/L Normal 20-31 [place] Comment on above: Performed By: #### T ROSETTA, DIME, BMP, CDP, BNP #### [facility] [address] [place] [address] Early Childhood: Miller Shirley MD Creatinine [Mass/Vol] 0.5 mg/dL Normal 0.5-0.9 [facility] Comment on above: Performed By: #### T ROSETTA, DIME, BMP, CDP, BNP #### [facility] [address] [place] [address] Early Childhood: Miller Shirley MD GFR/1.73 sq M.predicted among non-blacks MDRD (S/P/Bld) [Vol rate/Area] mL/min/{1.73_m2} Normal >60 [facility] Comment on above: Result Comment: These [...] T ROPI, DIME, BMP, CDP, BNP #### [facility] [address] [place], [place] [id number] Early Childhood: Miller Shirley MD Glucose [Mass/Vol] 215 mg/dL High 70-99 [facility] Comment on above: Performed By: #### T ROPI, DIME, BMP, CDP, BNP #### [facility] [address] [place], [place] [id number] Early Childhood: Miller Shirley MD Potassium [Moles/Vol] 4.2 mmol/L Normal 3.7-5.3 [facility] Comment on above: Performed By: #### T ROPI, DIME, BMP, CDP, BNP #### [facility] [address] [place], [place] [id number] Early Childhood: Miller Shirley MD Sodium [Moles/Vol] 134 mmol/L Low 135-144 [facility] Comment on above: Performed By: #### T ROPI, DIME, BMP, CDP, BNP #### [facility] [address] [place] [address] Early Childhood: Miller Shirley MD Urea nitrogen [Mass/Vol] 11 mg/dL Normal 6-20 [facility] Comment on above: Performed By: #### T ROPI, DIME, BMP, CDP, BNP #### [facility] [address] [place] [address] Early Childhood: Miller Shirley MD Brain Natri. Peptideon 09-09 Natriuretic peptide B (Bld) [Mass/Vol] 228 pg/mL Normal <300 [facility] Comment on above: Result Comment: An a ge-independent cutoff point of 300 pg/ml has a 98% negative predictive value excluding acute heart failure. Performed By: #### T ROPI, DIME, BMP, CDP, BNP #### [facility] [address] [place], [place] [id number] Early Childhood: Miller Shirley MD Brain Natriuretic Peptideon 09-09-2024 Natriuretic peptide B (Bld) [Mass/Vol] 228 pg/mL NINF - 300 pg/mL [facility] Comment on above: An age-independent c utoff point of 300 pg/ml has a 98% negative predictive value excluding acute heart failure. CBC with Auto Differentialon 09-09-2024 Basophils (Bld) [#/Vol] 0.02 10*3/uL [facility] Basophils/100 WBC (Bld) 0 % 0 - 2 % [facility] Eosinophils (Bld) [#/Vol] 0.06 10*3/uL [facility] Eosinophils/100 WBC (Bld) 1 % 0 - 5 % [facility] Erythrocyte distribution width (RBC) [Ratio] 12.4 % 12.1 - 15.2 % [facility] Hematocrit (Bld) [Volume fraction] 44.8 % 36.0 - 46.0 % [facility] Hemoglobin (Bld) [Mass/Vol] 15.2 g/dL 12.0 - 16.0 g/dL [facility] Immature granulocytes (Bld) [#/Vol] 0.02 10*3/uL [facility] Immature granulocytes/100 WBC (Bld) 0 % 0 - 5 % [facility] Interpretation and review of laboratory results Abnormal [facility] Lymphocytes/100 WBC (Bld) 28 % 15 - 40 % [facility] Lymphocytes/100 WBC (Bld) 2.07 % [facility] MCH (RBC) [Entitic mass] 28.6 pg 26.0 - 34.0 pg [facility] MCHC (RBC) [Mass/Vol] 33.9 g/dL 31.0 - 37.0 g/dL [facility] MCV (RBC) [Entitic vol] 84.4 fL 80.0 - 100.0 fL [facility] Monocytes/100 WBC (Bld) 8 % 4 - 8 % [facility] Monocytes/100 WBC (Bld) 0.60 % [facility] Neutrophils/100 WBC (Bld) 63 % 47 - 75 % [facility] Platelet mean volume (Bld) [Entitic vol] 9.7 fL 6.0 - 12.0 fL [facility] Platelets (Bld) [#/Vol] 340 10*3/uL [facility] RBC (Bld) [#/Vol] 5.31 10*6/uL High 4.00 - 5.2 0 m/uL [facility] Segmented neutrophils/100 WBC (Bld) 4.68 % [facility] WBC other (Bld) [#/Vol] 7.5 [facility] CBC with Diffon 09-09-2024 Abs. Basophil 0.02 k/uL Normal 0.00-0.20 [facility] Comment on above: Performed By: #### T ROPI, DIME, BMP, CDP, BNP #### [facility] [address] [place] [address] Early Childhood: Miller Shirley MD Abs.Imm.Granulocyte 0.02 k/uL Normal 0.00-0.30 [facility] Comment on above: Performed By: #### T ROPI, DIME, BMP, CDP, BNP #### [facility] [address] [place] [id number] Early Childhood: Miller Shirley MD Abs.Neutrophil (Seg) 4.68 k/uL Normal 2.5-7.0 [facility] Comment on above: Performed By: #### T ROPJosephine, DIME, BMP, CDP, BNP #### [facility] [address] [place] [address] Early Childhood: Miller Shirley MD Basophils/100 WBC (Bld) 0 % Normal 0-2 [facility] Comment on above: Performed By: #### T ROPI, DIME, BMP, CDP, BNP #### [facility] [address] [place] [address] Early Childhood: Miller Shirley MD Eosinophils (Bld) [#/Vol] 0.06 10*3/uL Normal 0.00-0.40 [facility] Comment on above: Performed By: #### T ROPI, DIME, BMP, CDP, BNP #### [facility] [address] [place], [place] [id number] Early Childhood: Miller Shirley MD Eosinophils/100 WBC (Bld) 1 % Normal 0-5 [facility] Comment on above: Performed By: #### T ROPI, DIME, BMP, CDP, BNP #### [facility] [address] [place] [address] Early Childhood: Miller Shirley MD Erythrocyte distribution width (RBC) [Ratio] 12.4 % Normal 12.1-15.2 [facility] Comment on above: Performed By: #### T ROPI, DIME, BMP, CDP, BNP #### [facility] [address] [place] [address] Early Childhood: Miller Shirley MD Hematocrit (Bld) [Volume fraction] 44.8 % Normal 36.0-46.0 [facility] Comment on above: Performed By: #### T ROPI, DIME, BMP, CDP, BNP #### [facility] [address] [place] [address] Early Childhood: Miller Shirley MD Hemoglobin (Bld) [Mass/Vol] 15.2 g/dL Normal 12.0-16.0 [facility] Comment on above: Performed By: #### T ROPI, DIME, BMP, CDP, BNP #### [facility] [address] [place] [phone] Early Childhood: Miller Shirley MD Immature granulocytes/100 WBC (Bld) 0 % Normal 0-5 [facility] Comment on above: Performed By: #### T ROPI, DIME, BMP, CDP, BNP #### [facility] [address] [place] [phone] Early Childhood: Miller Shirley MD Lymphocytes (Bld) [#/Vol] 2.07 10*3/uL Normal 1.00-4.80 [facility] Comment on above: Performed By: #### T ROPI, DIME, BMP, CDP, BNP #### [facility] [address] [place] [phone] Early Childhood: Miller Shirley MD Lymphocytes/100 WBC (Bld) 28 % Normal 15-40 [facility] Comment on above: Performed By: #### T ROPI, DIME, BMP, CDP, BNP #### [facility] [address] [place] [address] Early Childhood: Miller Shirley MD MCH (RBC) [Entitic mass] 28.6 pg Normal 26.0-34.0 [facility] Comment on above: Performed By: #### T ROPI, DIME, BMP, CDP, BNP #### [facility] [address] [place] [address] Early Childhood: Miller Shirley MD MCHC (RBC) [Mass/Vol] 33.9 g/dL Normal 31.0-37.0 [facility] Comment on above: Performed By: #### T ROPI, DIME, BMP, CDP, BNP #### [facility] [address] [place] [address] Early Childhood: Miller Shirley MD MCV (RBC) [Entitic vol] 84.4 fL Normal 80.0-100.0 [facility] Comment on above: Performed By: #### T ROPI, DIME, BMP, CDP, BNP #### [facility] [address] [place] [address] Early Childhood: Miller Shirley MD Monocytes (Bld) [#/Vol] 0.60 10*3/uL Normal 0.00-1.00 [facility] Comment on above: Performed By: #### T ROPI, DIME, BMP, CDP, BNP #### [facility] [address] [place] [address] Early Childhood: Miller Shirley MD Monocytes/100 WBC (Bld) 8 % Normal 4-8 [facility] Comment on above: Performed By: #### T ROPI, DIME, BMP, CDP, BNP #### [facility] [address] [place], [place] [phone] ([phone]) Early Childhood: Miller Shirley MD Neutrophil (Seg) 63 % Normal 47-75 [facility] Comment on above: Performed By: #### T ROPI, DIME, BMP, CDP, BNP #### [facility] [address] [place] [address] ([phone]) Early Childhood: Miller Shirley MD Platelet mean volume (Bld) [Entitic vol] 9.7 fL Normal 6.0-12.0 [facility] Comment on above: Performed By: #### T ROPI, DIME, BMP, CDP, BNP #### [facility] [address] [place] [address] (210) Early Childhood: Miller Shirley MD Platelets (Bld) [#/Vol] 340 10*3/uL Normal 140-450 [facility] Comment on above: Performed By: #### T ROPI, DIME, BMP, CDP, BNP #### [facility] [address] [place] [address] (189) Early Childhood: Miller Shirley MD RBC (Bld) [#/Vol] 5.31 10*6/uL High 4.00-5.20 [facility] Comment on above: Performed By: #### T ROPI, DIME, BMP, CDP, BNP #### [facility] [address] [place] [address] Early Childhood: Miller Shirley MD WBC (Bld) [#/Vol] 7.5 10*3/uL Normal 3.5-11.0 [facility] Comment on above: Performed By: #### T ROPI, DIME, BMP, CDP, BNP #### [facility] [address] [place] [address] Early Childhood: Miller Shirley MD Cult, Bloodon 09-09-2024 Cult, Blood Specimen Description .BLOOD Special Requests 20ML LAC Culture NO GROWTH 7 DAYS Report Status FINAL 09/09/2024 Normal [facility] Comment on above: Performed By: #### L IP, LIVP, MG, BMP, TROPI, CDP #### [facility] [address] [place] [address] Early Childhood: Miller Shirley MD D-Dimer Teston 09-09-2024 D-Dimer Test <0.27 Normal 0.00-0.59 [facility] Comment on above: Result Comment: When combined [...] T ROPI, DIME, BMP, CDP, BNP #### [facility] [address] [place] [address] Early Childhood: Miller Shirley MD D-Dimer, Quantitativeon 08-18 Fibrin D-dimer FEU (PPP) [Mass/Vol] [facility] Comment on above: When combined with a [...] more prevalent in patients with distal DVT. [facility] EKG 12 Leadon 09-09-2024 Atrial Rate 123 BPM [facility] P [place] 75 degrees [facility] P-R Interval 156 ms [facility] Q-T Interval 308 ms [facility] QRS Duration 66 ms [facility] QTc Calculation (Bazett) 440 ms [facility] R [place] 72 degrees [facility] T [place] 104 degrees [facility] Ventricular Rate 123 BPM [facility] Sinus tachycardia Anterior infarct (cited on or before 13-APR-2021) Nonspecific ST & T wave changes Abnormal [facility] BackRoverto MD - 09/09/2024 Sinus tachycardia Anterior infarct (cited on or before 13-APR-2021) Nonspecific ST & T wave changes Abnormal ECG [facility] Laboratory - Chemistry and C hemistry - challengeon 09-09-2024 Anion gap [Moles/Vol] 13 mmol/L (9-17 ) [facility] Comment on above: Note: Responsible Ob sql server bi developer: [email or web address] AUTOFILE ([id number]) Calcium [Mass/Vol] 9.8 mg/dL (8.6-10.4 ) [facility] Comment on above: Note: Responsible Ob sql server bi developer: [email or web address] AUTOFILE ([id number]) Chloride [Moles/Vol] 95 mmol/L Low (98-107 ) [facility] Comment on above: Note: Responsible Ob sql server bi developer: [email or web address] AUTOFILE ([id number]) CO2 [Moles/Vol] 26 mmol/L (20-31 ) [facility] Comment on above: Note: Responsible Ob sql server bi developer: [email or web address] AUTOFILE ([id number]) Creatinine [Mass/Vol] 0.5 mg/dL (0.5-0.9 ) [facility] Comment on above: Note: Responsible Ob sql server bi developer: [email or web address] AUTOFILE ([id number]) GFR/1.73 sq M.predicted among non-blacks MDRD (S/P/Bld) [Vol rate/Area] mL/min/{1.73_m2} (>60 ) [facility] Comment on above: Note: These results are [...] Glucose [Mass/Vol] 215 mg/dL High (70-99 ) [facility] Comment on above: Note: Responsible Ob sql server bi developer: [email or web address] AUTOFILE ([id number]) Natriuretic peptide B (Bld) [Mass/Vol] 228 pg/mL (<300 ) [facility] Comment on above: Note: An age-indepen dent cutoff point of 300 pg/ml has a 98% negative predictive valueexcluding acute heart failure.Responsible Observer: [email or web address] AUTOFILE ([id number]) Potassium [Moles/Vol] 4.2 mmol/L (3.7-5.3 ) [facility] Comment on above: Note: Responsible Ob sql server bi developer: [email or web address] AUTOFILE ([id number]) Sodium [Moles/Vol] 134 mmol/L Low (135-144 ) [facility] Comment on above: Note: Responsible Ob sql server bi developer: [email or web address] AUTOFILE ([id number]) Urea nitrogen [Mass/Vol] 11 mg/dL (6-20 ) [facility] Comment on above: Note: Responsible Ob sql server bi developer: [email or web address] AUTOFILE ([id number]) Laboratory - Hematology and Cell countson 09-09-2024 Basophils/100 WBC (Bld) 0 % (0-2 ) [facility] Comment on above: Note: Responsible Ob sql server bi developer: LIVE AUTOFILE ([id number]) Eosinophils (Bld) [#/Vol] 0.06 10*3/uL (0.00-0.40 ) [facility] Comment on above: Note: Responsible Ob sql server bi developer: LIVE AUTOFILE ([id number]) Eosinophils/100 WBC (Bld) 1 % (0-5 ) [facility] Comment on above: Note: Responsible Ob sql server bi developer: LIVE AUTOFILE ([id number]) Erythrocyte distribution width (RBC) [Ratio] 12.4 % (12.1-15.2 ) [facility] Comment on above: Note: Responsible Ob sql server bi developer: LIVE AUTOFILE ([id number]) Hematocrit (Bld) [Volume fraction] 44.8 % (36.0-46.0 ) [facility] Comment on above: Note: Responsible Ob sql server bi developer: LIVE AUTOFILE ([id number]) Hemoglobin (Bld) [Mass/Vol] 15.2 g/dL (12.0-16.0 ) [facility] Comment on above: Note: Responsible Ob sql server bi developer: LIVE AUTOFILE ([id number]) Immature granulocytes/100 WBC (Bld) 0 % (0-5 ) [facility] Comment on above: Note: Responsible Ob sql server bi developer: LIVE AUTOFILE ([id number]) Lymphocytes (Bld) [#/Vol] 2.07 10*3/uL (1.00-4.80 ) [facility] Comment on above: Note: Responsible Ob sql server bi developer: LIVE AUTOFILE ([id number]) Lymphocytes/100 WBC (Bld) 28 % (15-40 ) [facility] Comment on above: Note: Responsible Ob sql server bi developer: LIVE AUTOFILE ([id number]) MCH (RBC) [Entitic mass] 28.6 pg (26.0-34.0 ) [facility] Comment on above: Note: Responsible Ob sql server bi developer: LIVE AUTOFILE ([id number]) MCHC (RBC) [Mass/Vol] 33.9 g/dL (31.0- 37.0 ) [facility] Comment on above: Note: Responsible Ob sql server bi developer: LIVE AUTOFILE ([id number]) MCV (RBC) [Entitic vol] 84.4 fL (80.0-100.0 ) [facility] Comment on above: Note: Responsible Ob sql server bi developer: LIVE AUTOFILE ([id number]) Monocytes (Bld) [#/Vol] 0.60 10*3/uL (0.00-1.00 ) [facility] Comment on above: Note: Responsible Ob sql server bi developer: LIVE AUTOFILE ([id number]) Monocytes/100 WBC (Bld) 8 % (4-8 ) [facility] Comment on above: Note: Responsible Ob sql server bi developer: LIVE AUTOFILE ([id number]) Platelet mean volume (Bld) [Entitic vol] 9.7 fL (6.0-12.0 ) [facility] Comment on above: Note: Responsible Ob sql server bi developer: LIVE AUTOFILE ([id number]) Platelets (Bld) [#/Vol] 340 10*3/uL (140-450 ) [facility] Comment on above: Note: Responsible Ob sql server bi developer: LIVE AUTOFILE ([id number]) RBC (Bld) [#/Vol] 5.31 10*6/uL High (4.00-5.20 ) [facility] Comment on above: Note: Responsible Ob sql server bi developer: LIVE AUTOFILE ([id number]) Segmented neutrophils/100 WBC (Bld) 63 % (47-75 ) [facility] Comment on above: Note: Responsible Ob sql server bi developer: LIVE AUTOFILE ([id number]) WBC (Bld) [#/Vol] 7.5 10*3/uL (3.5-11.0 ) [facility] Comment on above: Note: Responsible Ob sql server bi developer: LIVE AUTOFILE ([id number]) No Panel Informationon 09-09 Interpretation and review of laboratory results Abnormal [facility] Abs. Basophil 0.02 k/uL (0.00-0.20 ) [facility] Comment on above: Note: Responsible Ob sql server bi developer: LIVE AUTOFILE ([id number]) Abs.Imm.Granulocyte 0.02 k/uL (0.00-0. 30 ) [facility] Comment on above: Note: Responsible Ob sql server bi developer: LIVE AUTOFILE ([id number]) Abs.Neutrophil (Seg) 4.68 k/uL (2.5-7.0 ) [facility] Comment on above: Note: Responsible Ob sql server bi developer: LIVE AUTOFILE ([id number]) D-Dimer Test <0.27 ug/mL_FEU (0.00-0.59 ) [facility] Comment on above: Note: When combined with [...] prevalent in patients withdistal DVT.Responsible Observer: UMM LUNDBERG ([id number]) Reported Physicians See Note [facility] Comment on above: Note: Reported Physi cians:Ordering: LORNA, VESELINAttending: LORNA, VESELINReferring: Kavita Qureshi Troponin, High Sens 18 ng/L High (0-14 ) [facility]alt [facility] Comment on above: Note: High Sensitivi ty Troponin values cannot be compared with other Troponinmethodologies.Responsible Observer: CORA AUTOFILE ([id number]) Troponinon 09-09-2024 Troponin I.cardiac High sensitivity method [Mass/Vol] 18 ng/L High 0 - 14 ng/L [facility] Comment on above: High Sensitivity Tro ponin values cannot be compared with other Troponin methodologies. Troponin, High Sens 18 ng/L High 0-14 [facility] Comment on above: Result Comment: High Sensitivity Troponin values cannot be compared with other Troponin methodologies. Performed By: #### T ROSETTA, LISSET, BMP, CDP, BNP #### [facility] [address] [place] [address] Early Childhood: Miller Shirley MD XR CHEST (2 VW)on [...] Brijesh Lozoya MD 09/09/24 Final result Normal [facility] XR Chest 2 Viewson 1. No acute findings to account for patient's symptoms. 2. Stable density within lateral left midlung favoring benign etiology; possible granuloma. 3. Sclerotic focus within lateral right humeral head. This area was not included on prior studies. Consider nonemergent right shoulder radiographs. [facility] EXAMINATION: XR CHES T (2 VW) HISTORY: [...] aspect of right humeral head. OTHER: Negative. [facility] Brijesh Lozoya MD - 09/09/2024 EXAMINATION: XR [...] prior studies. Consider nonemergent right shoulder radiographs. [facility] Radiology Study observation (narrative) [facility] XR Chest 2 ViewsOrdered By: Brijesh Lozoya on 09-09-2024 [facility] CBCon 09-04-2024 Erythrocyte distribution width (RBC) [Ratio] 11.9 % Low 12.1 - 15.2 % [facility] Hematocrit (Bld) [Volume fraction] 44.9 % 36.0 - 46.0 % [facility] Hemoglobin (Bld) [Mass/Vol] 15.8 g/dL 12.0 - 16.0 g/dL [facility] Interpretation and review of laboratory results Abnormal [facility] MCH (RBC) [Entitic mass] 28.8 pg 26.0 - 34.0 pg [facility] MCHC (RBC) [Mass/Vol] 35.2 g/dL 31.0 - 37.0 g/dL [facility] MCV (RBC) [Entitic vol] 81.8 fL 80.0 - 100.0 fL [facility] Platelet mean volume (Bld) [Entitic vol] 9.7 fL 6.0 - 12.0 fL [facility] Platelets (Bld) [#/Vol] 354 10*3/uL [facility] RBC (Bld) [#/Vol] 5.49 10*6/uL High 4.00 - 5.2 0 m/uL [facility] WBC other (Bld) [#/Vol] 6.4 [facility] Erythrocyte distribution width (RBC) [Ratio] 11.9 % Low 12.1-15.2 [facility] Comment on above: Performed By: #### T ROPI, CBC, LACTIC, CP, DIME ####[facility] [id number] [place] [address] lab Director: Miller Shirley MD Hematocrit (Bld) [Volume fraction] 44.9 % Normal 36.0-46.0 [facility] Comment on above: Performed By: #### T ROPI, CBC, LACTIC, CP, DIME ####[facility] [id number] [place] [address] lab Director: Miller Shirley MD Hemoglobin (Bld) [Mass/Vol] 15.8 g/dL Normal 12.0-16.0 [facility] Comment on above: Performed By: #### T ROPI, CBC, LACTIC, CP, DIME ####[facility] [id number] [place] [address] Lab Director: Miller Shirley MD MCH (RBC) [Entitic mass] 28.8 pg Normal 26.0-34.0 [facility] Comment on above: Performed By: #### T ROPI, CBC, LACTIC, CP, DIME ####[facility] [id number] [place] [address] Lab Director: Miller Shirley MD MCHC (RBC) [Mass/Vol] 35.2 g/dL Normal 31.0-37.0 [facility] Comment on above: Performed By: #### T ROPI, CBC, LACTIC, CP, DIME ####[facility] [id number] [place] [address] Lab Director: Miller Shirley MD MCV (RBC) [Entitic vol] 81.8 fL Normal 80.0-100.0 [facility] Comment on above: Performed By: #### T ROPI, CBC, LACTIC, CP, DIME ####[facility] [id number] [facility] [place] [address] Lab Director: Miller Shirley MD Platelet mean volume (Bld) [Entitic vol] 9.7 fL Normal 6.0-12.0 [facility] Comment on above: Performed By: #### T ROPI, CBC, LACTIC, CP, DIME ####[facility] [id number] [facility] [place] [address] Lab Director: Miller Shirley MD Platelets (Bld) [#/Vol] 354 10*3/uL Normal 140-450 [facility] Comment on above: Performed By: #### T ROPI, CBC, LACTIC, CP, DIME ####[facility] [id number] [place] [address] Lab Director: Miller Shirley MD RBC (Bld) [#/Vol] 5.49 10*6/uL High 4.00-5.20 [facility] Comment on above: Performed By: #### T ROPI, CBC, LACTIC, CP, DIME ####[facility] [id number] [place] [address] lab Director: Miller Shirley MD WBC (Bld) [#/Vol] 6.4 10*3/uL Normal 3.5-11.0 [facility] Comment on above: Performed By: #### T ROPI, CBC, LACTIC, CP, DIME ####[facility] [id number] [place] [address] lab Director: Miller Shirley MD Comp Metabolic Profon 2024 Albumin [Mass/Vol] 4.0 g/dL Normal 3.5-5.2 [facility] Comment on above: Performed By: #### T ROPI, CBC, LACTIC, CP, DIME ####[facility] [id number] [place] [address] lab Director: Miller Shirley MD Albumin/Glob Ratio 1.5 Normal 1.0-2.5 [facility] Comment on above: Performed By: #### T ROPI, CBC, LACTIC, CP, DIME ####[facility] [id number] [place] [address] Lab Director: Miller Shirley MD Alkaline Phos 99 U/L Normal 35-104 [facility] Comment on above: Performed By: #### T ROPI, CBC, LACTIC, CP, DIME ####[facility] [id number] [place] [address] Lab Director: Miller Shirley MD ALT [Catalytic activity/Vol] 13 U/L Normal 5-33 [facility] Comment on above: Performed By: #### T ROPI, CBC, LACTIC, CP, DIME ####[facility] [id number] [facility] [place] [address] lab Director: Miller Shirley MD Anion gap [Moles/Vol] 12 mmol/L Normal 9-17 [facility] Comment on above: Performed By: #### T ROPI, CBC, LACTIC, CP, DIME ####[facility] [id number] [facility] [place] [address] lab Director: Miller Shirley MD AST [Catalytic activity/Vol] 14 U/L Normal <32 [facility] Comment on above: Performed By: #### T ROPI, CBC, LACTIC, CP, DIME ####[facility] [id number] [place] [address] lab Director: Miller Shirley MD Bilirubin [Mass/Vol] 0.3 mg/dL Normal 0.3-1.2 [facility] Comment on above: Performed By: #### T ROPI, CBC, LACTIC, CP, DIME ####[facility] [id number] [facility] [place] [address] lab Director: Miller Shirley MD Calcium [Mass/Vol] 9.0 mg/dL Normal 8.6-10.4 [facility] Comment on above: Performed By: #### T ROPI, CBC, LACTIC, CP, DIME ####[facility] [id number] [facility] [place] [address] Lab Director: Miller Shirley MD Chloride [Moles/Vol] 96 mmol/L Low 98-107 [facility] Comment on above: Performed By: #### T ROPI, CBC, LACTIC, CP, DIME ####[facility] [id number] [place] [address] lab Director: Miller Shirley MD CO2 [Moles/Vol] 24 mmol/L Normal 20-31 [place] Comment on above: Performed By: #### T ROPI, CBC, LACTIC, CP, DIME ####[facility] [address] [place] [address] lab Director: Miller Shirley MD Creatinine [Mass/Vol] 0.4 mg/dL Low 0.5-0.9 [facility] Comment on above: Performed By: #### T ROPI, CBC, LACTIC, CP, DIME ####[facility] [id number] [place] [address] lab Director: Miller Shirley MD GFR/1.73 sq M.predicted among non-blacks MDRD (S/P/Bld) [Vol rate/Area] mL/min/{1.73_m2} Normal >60 [facility] Comment on above: Result Comment: These [...] #### T DEYAI, CBC, LACTIC, CP, DIME ####[facility] [id number] [place] [address] lab Director: Miller Shirley MD Glucose [Mass/Vol] 310 mg/dL High 70-99 [facility] Comment on above: Performed By: #### T ROPI, CBC, LACTIC, CP, DIME ####[facility] [id number] [place] [address] lab Director: Miller Shirley MD Potassium [Moles/Vol] 4.1 mmol/L Normal 3.7-5.3 [facility] Comment on above: Performed By: #### T ROPI, CBC, LACTIC, CP, DIME ####[facility] [id number] [place] [address] lab Director: Miller Shirley MD Protein [Mass/Vol] 6.6 g/dL Normal 6.4-8.3 [facility] Comment on above: Performed By: #### T DEYAI, CBC, LACTIC, CP, DIME ####[facility] [id number] [place] [address] lab Director: Miller Shirley MD Sodium [Moles/Vol] 132 mmol/L Low 135-144 [facility] Comment on above: Performed By: #### T DEYAI, CBC, LACTIC, CP, DIME ####[facility] [address] [place] [address] lab Director: Miller Shirley MD Urea nitrogen [Mass/Vol] 13 mg/dL Normal 6-20 [facility] Comment on above: Performed By: #### T ROSETTA, CBC, LACTIC, CP, DIME ####[facility] [id number] [place] [address] lab Director: Miller Shirley MD Comprehensive Metabolic [facility] 09-04-2024 Albumin [Mass/Vol] 4.0 g/dL 3.5 - 5.2 g/dL [facility] Albumin/Globulin [Mass ratio] 1.5 {ratio} 1.0 - 2.5 [facility] ALP [Catalytic activity/Vol] 99 U/L 35 - 104 U/L [facility] ALT [Catalytic activity/Vol] 13 U/L 5 - 33 U/L [facility] Anion gap [Moles/Vol] 12 mmol/L 9 - 17 mmol/L [facility] AST [Catalytic activity/Vol] 14 U/L NINF - 32 U/L [facility] Bilirubin [Mass/Vol] 0.3 mg/dL 0.3 - 1 .2 mg/dL [facility] Calcium [Mass/Vol] 9.0 mg/dL 8.6 - 10. 4 mg/dL [facility] Chloride [Moles/Vol] 96 mmol/L Low 98 - 10 7 mmol/L [facility] CO2 [Moles/Vol] 24 mmol/L 20 - 31 mmol/L [facility] Creatinine [Mass/Vol] 0.4 mg/dL Low 0.5 - 0.9 mg/dL [facility] Mohit Krueger - TIFFANY [facility] Comment on above: These results are not [...] 310 mg/dL High 70 - 99 mg/dL [facility] Interpretation and review of laboratory results Abnormal [facility] Potassium [Moles/Vol] 4.1 mmol/L 3.7 - 5.3 mmol/L [facility] Protein [Mass/Vol] 6.6 g/dL 6.4 - 8.3 g/dL [facility] Sodium [Moles/Vol] 132 mmol/L Low 135 - 144 mmol/L [facility] Urea nitrogen [Mass/Vol] 13 mg/dL 6 - 20 mg/dL [facility] D-Dimer Teston 09-04-2024 D-Dimer Test <0.27 Normal 0.00-0.59 [facility] Comment on above: Result Comment: When combined [...] #### T ROPI, CBC, LACTIC, CP, DIME ####[facility] [id number] [place] [address] lab Director: Miller Shirley MD D-Dimer, Quantitativeon 08-17 Fibrin D-dimer FEU (PPP) [Mass/Vol] [facility] Comment on above: When combined with a [...] more prevalent in patients with distal DVT. [facility] Laboratory - Chemistry and C hemistry - challengeon 09-04-2024 Ketones Ql (U) Negative (NEG ) [facility] Comment on above: Note: Responsible Ob sql server bi developer: SAMIRA WATERMAN ([id number]) Albumin [Mass/Vol] 4.0 g/dL (3.5-5.2 ) [facility] Comment on above: Note: Responsible Ob sql server bi developer: [email or web address] AUTOFILE ([id number]) ALT [Catalytic activity/Vol] 13 U/L (5-33 ) [facility] Comment on above: Note: Responsible Ob sql server bi developer: [email or web address] AUTOFILE ([id number]) Anion gap [Moles/Vol] 12 mmol/L (9-17 ) [facility] Comment on above: Note: Responsible Ob sql server bi developer: [email or web address] AUTOFILE ([id number]) AST [Catalytic activity/Vol] 14 U/L (<32 ) [facility] Comment on above: Note: Responsible Ob sql server bi developer: [email or web address] AUTOFILE ([id number]) Bilirubin [Mass/Vol] 0.3 mg/dL (0.3-1.2 ) [facility] Comment on above: Note: Responsible Ob sql server bi developer: [email or web address] AUTOFILE ([id number]) Calcium [Mass/Vol] 9.0 mg/dL (8.6-10.4 ) [facility] Comment on above: Note: Responsible Ob sql server bi developer: [email or web address] AUTOFILE ([id number]) Chloride [Moles/Vol] 96 mmol/L Low (98-107 ) [facility] Comment on above: Note: Responsible Ob sql server bi developer: [email or web address] AUTOFILE ([id number]) CO2 [Moles/Vol] 24 mmol/L (20-31 ) [facility] Comment on above: Note: Responsible Ob sql server bi developer: [email or web address] AUTOFILE ([id number]) Creatinine [Mass/Vol] 0.4 mg/dL Low (0.5-0.9 ) [facility] Comment on above: Note: Responsible Ob sql server bi developer: [email or web address] AUTOFILE ([id number]) GFR/1.73 sq M.predicted among non-blacks MDRD (S/P/Bld) [Vol rate/Area] mL/min/{1.73_m2} (>60 ) [facility] Comment on above: Note: These results are [...] followingtherapy that affects renal tubular secretion.Responsible Observer: [id number] AUTOFILE ([id number]) Glucose [Mass/Vol] 310 mg/dL High (70-99 ) [facility] Comment on above: Note: Responsible Ob sql server bi developer: [email or web address] AUTOFILE ([id number]) Potassium [Moles/Vol] 4.1 mmol/L (3.7-5.3 ) [facility] Comment on above: Note: Responsible Ob sql server bi developer: [email or web address] AUTOFILE ([id number]) Protein [Mass/Vol] 6.6 g/dL (6.4-8.3 ) [facility] Comment on above: Note: Responsible Ob sql server bi developer: [email or web address] AUTOFILE ([id number]) Sodium [Moles/Vol] 132 mmol/L Low (135-144 ) [facility] Comment on above: Note: Responsible Ob sql server bi developer: [email or web address] AUTOFILE ([id number]) Urea nitrogen [Mass/Vol] 13 mg/dL (6-20 ) [facility] Comment on above: Note: Responsible Ob sql server bi developer: [email or web address] AUTOFILE ([id number]) Laboratory - Hematology and Cell countson 09-04-2024 Erythrocyte distribution width (RBC) [Ratio] 11.9 % Low (12.1-15.2 ) [facility] Comment on above: Note: Responsible Ob sql server bi developer: LIVE AUTOFILE ([id number]) Hematocrit (Bld) [Volume fraction] 44.9 % (36.0-46.0 ) [facility] Comment on above: Note: Responsible Ob sql server bi developer: LIVE AUTOFILE ([id number]) Hemoglobin (Bld) [Mass/Vol] 15.8 g/dL (12.0-16.0 ) [facility] Comment on above: Note: Responsible Ob sql server bi developer: LIVE AUTOFILE ([id number]) MCH (RBC) [Entitic mass] 28.8 pg (26.0-34.0 ) [facility] Comment on above: Note: Responsible Ob sql server bi developer: LIVE AUTOFILE ([id number]) MCHC (RBC) [Mass/Vol] 35.2 g/dL (31.0- 37.0 ) [facility] Comment on above: Note: Responsible Ob sql server bi developer: LIVE AUTOFILE ([id number]) MCV (RBC) [Entitic vol] 81.8 fL (80.0-100.0 ) [facility] Comment on above: Note: Responsible Ob sql server bi developer: LIVE AUTOFILE ([id number]) Platelet mean volume (Bld) [Entitic vol] 9.7 fL (6.0-12.0 ) [facility] Comment on above: Note: Responsible Ob sql server bi developer: LIVE AUTOFILE ([id number]) Platelets (Bld) [#/Vol] 354 10*3/uL (140-450 ) [facility] Comment on above: Note: Responsible Ob sql server bi developer: LIVE AUTOFILE ([id number]) RBC (Bld) [#/Vol] 5.49 10*6/uL High (4.00-5.20 ) [facility] Comment on above: Note: Responsible Ob sql server bi developer: LIVE AUTOFILE ([id number]) WBC (Bld) [#/Vol] 6.4 10*3/uL (3.5-11.0 ) [facility] Comment on above: Note: Responsible Ob sql server bi developer: LIVE AUTOFILE ([id number]) Laboratory - Specimen inform ationon 09-04-2024 Clarity (U) Clear (CLEAR ) [facility] Comment on above: Note: Responsible Ob sql server bi developer: SAMIRA ([facility] ([id number]) Color (U) Yellow (YEL ) [facility] Comment on above: Note: Responsible Ob sql server bi developer: SAMIRA ([facility] ([id number]) Laboratory - Urinalysison Leukocyte esterase Test strip Ql (U) Negative (NEG ) [facility] Comment on above: Note: Responsible Ob sql server bi developer: SAMIRA ([facility] ([id number]) Lactic Acidon 09-04-2024 Lactate (BldV) [Moles/Vol] 1.6 mmol/L 0.5 - 2.2 mmol/L [facility] Lactate [Moles/Vol] 1.6 mmol/L (0.5-2.2 ) [facility] Comment on above: Note: Responsible Ob sql server bi developer: [email or web address] AUTOFILE ([id number]) Performed By: #### T ROPI, CBC, LACTIC, CP, DIME ####[facility] [id number] [place] [address] lab Director: Miller Shirley MD No Panel Informationon 09-04 Bilirubin, SemiQt,Ur Negative (NEG ) [facility] Comment on above: Note: Responsible Ob sql server bi developer: SAMIRA ([facility] [place] ([id number]) Blood, Urine Negative (NEG ) [facility] Comment on above: Note: Responsible Ob sql server bi developer: SAMIRA ([facility] [place] ([id number]) Comment See Note [facility] Comment on above: Note: Responsible Ob sql server bi developer: SAMIRA ([facility] [place] ([id number]) Glucose,Semi-qnt,Ur 1000 mg/dL mg/dL Abnormal (NEG ) [facility] Comment on above: Note: Responsible Ob sql server bi developer: SAMIRA ([facility] ([id number]) Nitrite,Ur Negative (NEG ) [facility] Comment on above: Note: Responsible Ob sql server bi developer: SAMIRA ([facility] [place] ([id number]) PH,Ur 6.0 (5.0-8.0 ) [facility] Comment on above: Note: Responsible Ob sql server bi developer: SAMIRA ([facility] [place] ([id number]) Protein, Semi-qnt,Ur TRACE mg/dL Abnormal (NEG ) [facility] Comment on above: Note: Responsible Ob sql server bi developer: SAMIRA ([facility] [place] ([id number]) Reported Physicians See Note [facility] Comment on above: Note: Reported Physi cians:Ordering: LORNA, VESELINAttending: LORNA, VESELINReferring: Kavita Qureshi Spec. [place],Ur 1.015 (1.005-1.03 0 ) [facility] Comment on above: Note: Responsible Ob sql server bi developer: SAMIRA ([facility] [place] ([id number]) Urobilinogen,Ur Normal EU/dL (0.0-1.0 ) [facility] Comment on above: Note: Responsible Ob sql server bi developer: SAMIRA ([facility] [place] ([id number]) Albumin/Glob Ratio 1.5 (1.0-2.5 ) [facility] Comment on above: Note: Responsible Ob sql server bi developer: [email or web address] AUTOFILE ([id number]) Alkaline Phos 99 U/L (35-104 ) [facility] Comment on above: Note: Responsible Ob sql server bi developer: [facility] AUTOFILE ([id number]) D-Dimer Test <0.27 ug/mL_FEU (0.00-0.59 ) [facility] Comment on above: Note: When combined with [...] prevalent in patients withdistal DVT.Responsible Observer: BENSON ([facility]) JAY ([id number]) Reported Physicians See Note [facility] Comment on above: Note: Reported Physi cians:Ordering: LORNA, VESELINAttending: LORNA, VESELINReferring: HardeepKavita Troponin, High Sens 19 ng/L High (0-14 ) [facility] Comment on above: Note: High Sensitivi ty Troponin values cannot be compared with other Troponinmethodologies.Responsible Observer: [facility] AUTOFILE ([id number]) Reported Physicians See Note [facility] Comment on above: Note: Reported Physi cians:Ordering: LORNA, VESELINAttending: LORNA, VESELINReferring: Kavita Qureshi Troponinon 09-04-2024 Interpretation and review of laboratory results Abnormal [facility] Troponin I.cardiac High sensitivity method [Mass/Vol] 19 ng/L High 0 - 14 ng/L [facility] Comment on above: High Sensitivity Tro ponin values cannot be compared with other Troponin methodologies. [facility] Troponin, High Sens 19 ng/L High 0-14 [facility] Comment on above: Result Comment: High Sensitivity Troponin values cannot be compared with other Troponin methodologies. Performed By: #### T ROPI, CBC, LACTIC, CP, DIME ####[facility] [id number] [place] [address] Lab Director: Miller Shirley MD UA w/Reflex Cultureon 2024 Bilirubin, SemiQt,Ur Negative Normal NEG [facility] Comment on above: Performed By: #### U AX ####[facility] [id number] [place] [address] Lab Director: Miller Shirley MD Blood, Urine Negative Normal NEG [facility] Comment on above: Performed By: #### U AX ####[facility] [id number] [place] [address] Lab Director: Miller Shirley MD Clarity (U) Clear Normal CLEAR [facility] Comment on above: Performed By: #### U AX ####[facility] [id number] [place] [address] Lab Director: Miller Shirley MD Color (U) Yellow Normal YEL [facility] Comment on above: Performed By: #### U AX ####[facility] [id number] [place] [address] Lab Director: Miller Shirley MD Comment Normal [facility] Comment on above: Performed By: #### U AX ####[facility] [id number] [place] [address] Lab Director: Miller Shirley MD Glucose Ql (U) 1000 mg/dL Abnormal NEG [facility] Comment on above: Performed By: #### U AX ####[facility] [id number] [place] [address] Lab Director: Miller Shirley MD Ketones Ql (U) Negative Normal NEG [facility] Comment on above: Performed By: #### U AX ####[facility] [id number] [place] [address] Lab Director: Miller Shirley MD Leukocyte esterase Test strip Ql (U) Negative Normal NEG [facility] Comment on above: Performed By: #### U AX ####[facility] [id number] [facility] [place] [address] Lab Director: Miller Shirley MD Nitrite,Ur Negative Normal NEG [facility] Comment on above: Performed By: #### U AX ####[facility] [id number] [facility] [place] [address] Lab Director: Miller Shirley MD PH,Ur 6.0 Normal 5.0-8.0 [facility] Comment on above: Performed By: #### U AX ####[facility] [id number] [facility] [place] [address] Lab Director: iMller Shirley MD Protein Ql (U) TRACE Abnormal NEG [facility] Comment on above: Performed By: #### U AX ####[facility] [id number] [facility] [place] [address] Lab Director: Miller Shirley MD Spec. [place],Ur 1.015 Normal 1.005-1.030 [facility] Comment on above: Performed By: #### U AX ####[facility] [id number] [facility] [place] [address] lab Director: Miller Shirley MD Urobilinogen,Ur Normal Normal 0.0-1.0 [place] Comment on above: Performed By: #### U AX ####[facility] [id number] [place] [address] lab Director: Miller Shirley MD Urinalysis with Reflex to Cu ltureon 09-04-2024 Bilirubin Ql (U) Negative NEGATIVE [facility] Clarity (U) Clear Clear [facility] Color (U) Yellow Yellow [facility] Comment [facility] Glucose Test strip (U) [Mass/Vol] 1000 mg/dL Abnormal NEGATIVE mg/dL [facility] Hemoglobin Auto test strip Ql (U) Negative NEGATIVE [facility] Interpretation and review of laboratory results Abnormal [facility] Ketones (U) [Mass/Vol] Negative NEGATIVE mg/dL [facility] Leukocyte esterase Test strip Ql (U) Negative NEGATIVE [facility] Nitrite Ql (U) Negative NEGATIVE [facility] pH (U) 6.0 [pH] 5.0 - 8.0 [facility] Protein (U) [Mass/Vol] TRACE Abnormal NEGATIVE mg/dL [facility] Specific gravity (U) [Rel density] 1.015 1.005 - 1.030 [facility] Urobilinogen Qn (U) Normal 0.0 - 1. 0 EU/dL [facility] CT CHEST WO CONTRASTon 09-03 CT CHEST [...] Pia Ortiz MD 09/03/24 Final result Normal [facility] Basic Metabolic Panelon 08-17 Anion gap [Moles/Vol] 13 mmol/L 9 - 16 mmol/L [facility] [employer] [place] Calcium [Mass/Vol] 9.5 mg/dL 8.6 - 10. 4 mg/dL [facility] Chloride [Moles/Vol] 97 mmol/L Low 98 - 10 7 mmol/L [facility] CO2 [Moles/Vol] 26 mmol/L 20 - 31 mmol/L [facility] Creatinine [Mass/Vol] 0.6 mg/dL 0.50 - 0.90 mg/dL [facility] Est, Glom Filt Rate - PINF [facility] Comment on above: These results are not [...] 298 mg/dL High 74 - 99 mg/dL [facility] [employer] Potassium [Moles/Vol] 4.1 mmol/L 3.7 - 5.3 mmol/L [facility] [employer] Sodium [Moles/Vol] 136 mmol/L 136 - 145 mmol/L [facility] [employer] [facility] Urea nitrogen [Mass/Vol] 16 mg/dL 6 - 20 mg/dL [facility] Urea nitrogen/Creatinine [Mass ratio] 27 mg/mg High 9 - 20 [facility] Basic Metabolic Profon 09-02 Anion gap [Moles/Vol] 13 mmol/L Normal 9-16 [facility] Comment on above: Performed By: #### L IP, LIVP, MG, BMP, TROPI, CDP #### [facility] [address] [place] [address] Early Childhood: Miller Shirley MD BUN/CRE Ratio 27 High 9-20 [facility] Comment on above: Performed By: #### L IP, LIVP, MG, BMP, TROPI, CDP #### [facility] [address] [place] [address] Early Childhood: Miller Shirley MD Calcium [Mass/Vol] 9.5 mg/dL Normal 8.6-10.4 [facility] Comment on above: Performed By: #### L IP, LIVP, MG, BMP, TROPI, CDP #### [facility] [address] [place] [address] Early Childhood: Miller Shirley MD Chloride [Moles/Vol] 97 mmol/L Low 98-107 [facility] Comment on above: Performed By: #### L IP, LIVP, MG, BMP, TROPI, CDP #### [facility] [address] [place] [address] Early Childhood: Miller Shirley MD CO2 [Moles/Vol] 26 mmol/L Normal 20-31 [facility] Comment on above: Performed By: #### L IP, LIVP, MG, BMP, TROPI, CDP #### [facility] [address] [place] [address] Early Childhood: Miller Shirley MD Creatinine [Mass/Vol] 0.6 mg/dL Normal 0.50-0.90 [facility] Comment on above: Performed By: #### L IP, LIVP, MG, BMP, TROPI, CDP #### [address] [place] [address] Early Childhood: Miller Shirley MD GFR/1.73 sq M.predicted among non-blacks MDRD (S/P/Bld) [Vol rate/Area] mL/min/{1.73_m2} Normal >60 [facility] Comment on above: Result Comment: These [...] IP, LIVP, MG, BMP, TROPI, CDP #### [address] [place] [address] Early Childhood: Miller Shirley MD Glucose [Mass/Vol] 298 mg/dL High 74-99 [facility] Comment on above: Performed By: #### L IP, LIVP, MG, BMP, TROPI, CDP #### [address] [place] [address] Early Childhood: Miller Shirley MD Potassium [Moles/Vol] 4.1 mmol/L Normal 3.7-5.3 [facility] Comment on above: Performed By: #### L IP, LIVP, MG, BMP, TROPI, CDP #### [address] [place] [address] Early Childhood: Miller Shirley MD Sodium [Moles/Vol] 136 mmol/L Normal 136-145 [facility] Comment on above: Performed By: #### L IP, LIVP, MG, BMP, TROPI, CDP #### [address] [place], [place] [id number] Early Childhood: Miller Shirley MD Urea nitrogen [Mass/Vol] 16 mg/dL Normal 6-20 [facility] Comment on above: Performed By: #### L IP, LIVP, MG, BMP, TROPI, CDP #### [address] [place] [address] Early Childhood: Miller Shirley MD CBC with Auto Differentialon 09-02-2024 Basophils (Bld) [#/Vol] 0.04 10*3/uL [facility] Immature granulocytes (Bld) [#/Vol] [facility] Interpretation and review of laboratory results Abnormal [facility] Lymphocytes/100 WBC (Bld) 2.16 % [facility] Monocytes/100 WBC (Bld) 0.59 % [facility] Neutrophils/100 WBC (Bld) 54 % 36 - 65 % [facility] Nucleated RBC/100 WBC (Bld) [Ratio] 0.0 % 0.0 per 100 WBC [facility] Segmented neutrophils/100 WBC (Bld) 3.39 % [facility] WBC other (Bld) [#/Vol] 6.3 [facility] CBC with Diffon 09-02-2024 Basophils/100 WBC (Bld) 1 % Normal 0-2 [facility] Comment on above: Performed By: #### L IP, LIVP, MG, BMP, TROPI, CDP #### [address] [place] [address] Early Childhood: Miller Shirley MD Eosinophils (Bld) [#/Vol] 0.11 10*3/uL Normal 0.00-0.44 [facility] Comment on above: Performed By: #### L IP, LIVP, MG, BMP, TROPI, CDP #### [address] [place] [address] Early Childhood: Miller Shirley MD Eosinophils/100 WBC (Bld) 2 % Normal 1-4 [facility] Comment on above: Performed By: #### L IP, LIVP, MG, BMP, TROPI, CDP #### [address] [place] [address] Early Childhood: Miller Shirley MD Erythrocyte distribution width (RBC) [Ratio] 12.4 % Normal 11.8-14.4 [facility] Comment on above: Performed By: #### L IP, LIVP, MG, BMP, TROPI, CDP #### [address] [place], [place] [address] Early Childhood: Miller Shirley MD Hematocrit (Bld) [Volume fraction] 42.8 % Normal 36.3-47.1 [facility] Comment on above: Performed By: #### L IP, LIVP, MG, BMP, TROPI, CDP #### [address] [place] [address] Early Childhood: Miller Shirley MD Hemoglobin (Bld) [Mass/Vol] 15.0 g/dL Normal 11.9-15.1 [facility] Comment on above: Performed By: #### L IP, LIVP, MG, BMP, TROPI, CDP #### [address] [place] [address] Early Childhood: Miller Shirley MD Immature granulocytes/100 WBC (Bld) 0 % Normal 0 [facility] Comment on above: Performed By: #### L IP, LIVP, MG, BMP, TROPI, CDP #### [address] [place] [address] Early Childhood: Miller Shirley MD Lymphocytes/100 WBC (Bld) 34 % Normal 24-43 [facility] Comment on above: Performed By: #### L IP, LIVP, MG, BMP, TROPI, CDP #### [address] [place] [address] Early Childhood: Miller Shirley MD MCH (RBC) [Entitic mass] 29.6 pg Normal 25.2-33.5 [facility] Comment on above: Performed By: #### L IP, LIVP, MG, BMP, TROPI, CDP #### [address] [place] [address] Early Childhood: Miller Shirley MD MCHC (RBC) [Mass/Vol] 35.0 g/dL High 28.4-34.8 [facility] Comment on above: Performed By: #### L IP, LIVP, MG, BMP, TROPI, CDP #### [address] [place] [address] Early Childhood: Miller Shirley MD MCV (RBC) [Entitic vol] 84.6 fL Normal 82.6-102.9 [facility] Comment on above: Performed By: #### L IP, LIVP, MG, BMP, TROPI, CDP #### [address] [place], [place] [id number] Early Childhood: Miller Shirley MD Monocytes/100 WBC (Bld) 9 % Normal 3-12 [facility] Comment on above: Performed By: #### L IP, LIVP, MG, BMP, TROPI, CDP #### [address] [place] [address] Early Childhood: Miller Shirley MD Platelet mean volume (Bld) [Entitic vol] 9.7 fL Normal 8.1-13.5 [facility] Comment on above: Performed By: #### L IP, LIVP, MG, BMP, TROPI, CDP #### [address] [place] [address] Early Childhood: Miller Shirley MD Platelets (Bld) [#/Vol] 353 10*3/uL Normal 138-453 [facility] Comment on above: Performed By: #### L IP, LIVP, MG, BMP, TROPI, CDP #### [facility] [address] [place] [address] Early Childhood: Miller Shirley MD RBC (d) [#/Vol] 5.06 10*6/uL Normal 3.95-5.11 [facility] Comment on above: Performed By: #### L IP, LIVP, MG, BMP, TROPI, CDP #### [address] [place], [facility] Early Childhood: Miller Shirley MD Abs. Basophil 0.04 k/uL Normal 0.00-0.20 [facility] Comment on above: Performed By: #### L IP, LIVP, MG, BMP, TROPI, CDP #### [address] [place], [place] [address] Early Childhood: Miller Shirley MD Abs.Imm.Granulocyte <0.03 Normal 0.00-0.30 [facility] Comment on above: Performed By: #### L IP, LIVP, MG, BMP, TROPI, CDP #### [address] [place], [place] [address] Early Childhood: Miller Shirley MD Abs.Neutrophil (Seg) 3.39 k/uL Normal 1.50-8.10 [facility] Comment on above: Performed By: #### L IP, LIVP, MG, BMP, TROPI, CDP #### [address] [place], [facility] Early Childhood: Miller Shirley MD Lymphocytes (d) [#/Vol] 2.16 10*3/uL Normal 1.10-3.70 [facility] Comment on above: Performed By: #### L IP, LIVP, MG, BMP, TROPI, CDP #### [address] [place], [place] [address] Early Childhood: Miller Shirley MD Monocytes (Bld) [#/Vol] 0.59 10*3/uL Normal 0.10-1.20 [facility] Comment on above: Performed By: #### L IP, LIVP, MG, BMP, TROPI, CDP #### [facility] [address] [place] [address] Early Childhood: Miller Shirley MD Neutrophil (Seg) 54 % Normal 36-65 [facility] Comment on above: Performed By: #### L IP, LIVP, MG, BMP, TROPI, CDP #### [facility] [address] [place] [address] Early Childhood: Miller Shirley MD NRBC Automated 0.0 per 100 WBC Normal 0.0 [facility] Comment on above: Performed By: #### L IP, LIVP, MG, BMP, TROPI, CDP #### [facility] [address] [place] [address] [place] [address] Early Childhood: Miller Shirley MD WBC (Bld) [#/Vol] 6.3 10*3/uL Normal 3.5-11.3 [facility] Comment on above: Performed By: #### L IP, LIVP, MG, BMP, TROPI, CDP #### [address] [place] [address] Early Childhood: Miller Shirley MD CT ABDOMEN PELVIS WO [...] Yonatan Gupta MD 09/02/24 Final result Normal [facility] CT Abdomen and Pelvis WO con traston 09-02-2024 1. No acute intra-abdominal or pelvic abnormality with limitations for a noncontrast CT scan. 2. Punctate nonobstructive left kidney stones. 3. Constipation with large amount of stool seen throughout the colon. PN RIS CONSOLIDATED EXAMINATION: CT OF THE ABDOMEN [...] There are shotty inguinal lymph nodes noted. PN RIS CONSOLIDATED Yonatan Gupta MD - 09/02/2024 [...] amount of stool seen throughout the colon. [facility] Radiology Study observation (narrative) [facility] CT Abdomen and Pelvis WO con trastOrdered By: Yonatan Gupta on 09-02-2024 [facility] Work Phone: D-Dimer Teston 09-02-2024 D-Dimer Test <0.27 Normal 0.00-0.59 [facility] Comment on above: Result Comment: When [...] IP, LIVP, MG, BMP, TROPI, CDP #### [facility] [address] [place] [address] Early Childhood: Miller Shirley MD D-Dimer, Quantitativeon 08-17 Fibrin D-dimer FEU (PPP) [Mass/Vol] [facility] Comment on above: When combined with a [...] more prevalent in patients with distal DVT. [facility] Hepatic Function Panelon Albumin [Mass/Vol] 3.9 g/dL 3.5 - 5.2 g/dL [facility] Albumin/Globulin [Mass ratio] 1.6 {ratio} 1.0 - 2.5 [facility] ALP [Catalytic activity/Vol] 106 U/L High 35 - 104 U/L [facility] ALT [Catalytic activity/Vol] 19 U/L 10 - 35 U/L [facility] AST [Catalytic activity/Vol] 16 U/L 10 - 35 U/L [facility] Bilirubin [Mass/Vol] 0.2 mg/dL 0.00 - 1.20 mg/dL [facility] Bilirubin.direct [Mass/Vol] mg/dL 0.00 - 0.30 mg/dL [facility] Bilirubin.indirect [Mass/Vol] Can not be calculated 0.0 - 1.0 mg/dL [facility] Protein [Mass/Vol] 6.4 g/dL Low 6.6 - 8.7 g/dL [facility] Laboratory - Chemistry and C hemistry - challengeon 09-02-2024 Ketones Ql (U) TRACE mg/dL Abnormal (NEG ) [facility] Comment on above: Note: Responsible Ob sql server bi developer: ASHA SERRANO ([id number]) Albumin [Mass/Vol] 3.9 g/dL (3.5-5.2 ) [facility] Comment on above: Note: Responsible Ob sql server bi developer: EMPLOYEE NON-LAB (224) ALT [Catalytic activity/Vol] 19 U/L (10-35 ) [facility] Comment on above: Note: Responsible Ob sql server bi developer: EMPLOYEE NON-LAB (224) Anion gap [Moles/Vol] 13 mmol/L (9-16 ) [facility] Comment on above: Note: Responsible Ob sql server bi developer: EMPLOYEE NON-LAB (224) AST [Catalytic activity/Vol] 16 U/L (10-35 ) [facility] Comment on above: Note: Responsible Ob sql server bi developer: EMPLOYEE NON-LAB (224) Bilirubin [Mass/Vol] 0.2 mg/dL (0.00-1 .20 ) [facility] Comment on above: Note: Responsible Ob sql server bi developer: EMPLOYEE NON-LAB (224) Bilirubin.indirect [Mass/Vol] mg/dL (0.00-0.30 ) [facility] Comment on above: Note: Responsible Ob sql server bi developer: EMPLOYEE NON-LAB (224) Calcium [Mass/Vol] 9.5 mg/dL (8.6-10.4 ) [facility] Comment on above: Note: Responsible Ob sql server bi developer: EMPLOYEE NON-LAB (224) Chloride [Moles/Vol] 97 mmol/L Low (98-107 ) [facility] Comment on above: Note: Responsible Ob sql server bi developer: EMPLOYEE NON-LAB (224) CO2 [Moles/Vol] 26 mmol/L (20-31 ) [facility] Comment on above: Note: Responsible Ob sql server bi developer: EMPLOYEE NON-LAB (224) Creatinine [Mass/Vol] 0.6 mg/dL (0.50- 0.90 ) [facility] Comment on above: Note: Responsible Ob sql server bi developer: EMPLOYEE NON-LAB (224) GFR/1.73 sq M.predicted among non-blacks MDRD (S/P/Bld) [Vol rate/Area] mL/min/{1.73_m2} (>60 ) [facility] Comment on above: Note: These results are [...] Glucose [Mass/Vol] 298 mg/dL High (74-99 ) [facility] Comment on above: Note: Responsible Ob sql server bi developer: EMPLOYEE NON-LAB (224) Lipase [Catalytic activity/Vol] 20 U/L (13-60 ) [facility] Comment on above: Note: Responsible Ob sql server bi developer: EMPLOYEE NON-LAB (224) Magnesium [Mass/Vol] 1.9 mg/dL (1.6-2.6 ) [facility] Comment on above: Note: Responsible Ob sql server bi developer: EMPLOYEE NON-LAB (224) Potassium [Moles/Vol] 4.1 mmol/L (3.7-5.3 ) [facility] Comment on above: Note: Responsible Ob sql server bi developer: EMPLOYEE NON-LAB (224) Protein [Mass/Vol] 6.4 g/dL Low (6.6-8.7 ) [facility] Comment on above: Note: Responsible Ob sql server bi developer: EMPLOYEE NON-LAB (224) Sodium [Moles/Vol] 136 mmol/L (136-145 ) [facility] Comment on above: Note: Responsible Ob sql server bi developer: EMPLOYEE NON-LAB (224) Urea nitrogen [Mass/Vol] 16 mg/dL (6-20 ) [facility] Comment on above: Note: Responsible Ob sql server bi developer: EMPLOYEE NON-LAB (224) Laboratory - Hematology and Cell countson 09-02-2024 Basophils/100 WBC (Bld) 1 % (0-2 ) [facility] Comment on above: Note: Responsible Ob sql server bi developer: XNT [employer] ([id number]) Eosinophils (Bld) [#/Vol] 0.11 10*3/uL (0.00-0.44 ) [facility] Comment on above: Note: Responsible Ob sql server bi developer: [employer] ([id number]) Eosinophils/100 WBC (Bld) 2 % (1-4 ) [facility] Comment on above: Note: Responsible Ob sql server bi developer: [employer] ([id number]) Erythrocyte distribution width (RBC) [Ratio] 12.4 % (11.8-14.4 ) [facility] Comment on above: Note: Responsible Ob sql server bi developer: [employer] ([id number]) Hematocrit (Bld) [Volume fraction] 42.8 % (36.3-47.1 ) [facility] Comment on above: Note: Responsible Ob sql server bi developer: [employer] ([id number]) Hemoglobin (Bld) [Mass/Vol] 15.0 g/dL (11.9-15.1 ) [facility] Comment on above: Note: Responsible Ob sql server bi developer: [employer] ([id number]) Immature granulocytes/100 WBC (Bld) 0 % (0 ) [facility] Comment on above: Note: Responsible Ob sql server bi developer: [employer] ([id number]) Lymphocytes (Bld) [#/Vol] 2.16 10*3/uL (1.10-3.70 ) [facility] Comment on above: Note: Responsible Ob sql server bi developer: [employer] ([id number]) Lymphocytes/100 WBC (Bld) 34 % (24-43 ) [facility] Comment on above: Note: Responsible Ob sql server bi developer: [employer] ([id number]) MCH (RBC) [Entitic mass] 29.6 pg (25.2-33.5 ) [facility] Comment on above: Note: Responsible Ob sql server bi developer: [employer] ([id number]) MCHC (RBC) [Mass/Vol] 35.0 g/dL High (28.4- 34.8 ) [facility] Comment on above: Note: Responsible Ob sql server bi developer: XNT AUTOFILE ([id number]) MCV (RBC) [Entitic vol] 84.6 fL (82.6-102.9 ) [facility] Comment on above: Note: Responsible Ob sql server bi developer: XNT AUTOFILE ([id number]) Monocytes (Bld) [#/Vol] 0.59 10*3/uL (0.10-1.20 ) [facility] Comment on above: Note: Responsible Ob sql server bi developer: XNT AUTO[employer] ([id number]) Monocytes/100 WBC (Bld) 9 % (3-12 ) [facility] Comment on above: Note: Responsible Ob sql server bi developer: [employer]NT [employer]OFILE ([id number]) Platelet mean volume (Bld) [Entitic vol] 9.7 fL (8.1-13.5 ) [facility] Comment on above: Note: Responsible Ob sql server bi developer: XNT AUTOFILE ([id number]) Platelets (Bld) [#/Vol] 353 10*3/uL (138-453 ) [facility] Comment on above: Note: Responsible Ob sql server bi developer: XNT AUTOFILE ([id number]) RBC (Bld) [#/Vol] 5.06 10*6/uL (3.95-5.11 ) [facility] Comment on above: Note: Responsible Ob sql server bi developer: [employer]NT AUT[employer] ([id number]) Segmented neutrophils/100 WBC (Bld) 54 % (36-65 ) [facility] Comment on above: Note: Responsible Ob sql server bi developer: XNT AUTOFILE ([id number]) WBC (Bld) [#/Vol] 6.3 10*3/uL (3.5-11.3 ) [facility] Comment on above: Note: Responsible Ob sql server bi developer: XNT AUTOFILE ([id number]) Laboratory - Specimen inform ationon 09-02-2024 Clarity (U) Clear (CLEAR ) [facility] Comment on above: Note: Responsible Ob sql server bi developer: ASHA SERRANO ([id number]) Color (U) Yellow (YEL ) [facility] Comment on above: Note: Responsible Ob sql server bi developer: ASHA SERRANO ([id number]) Laboratory - Urinalysison Epithelial cells LM Ql (Urine sed) 0 TO 2 /HPF (0-25 ) [facility] Comment on above: Note: Responsible Ob sql server bi developer: ASHA SERRANO ([id number]) Leukocyte esterase Test strip Ql (U) Negative (NEG ) [facility] Comment on above: Note: Responsible Ob sql server bi developer: ASHA SERRANO ([id number]) Lactate, Sepsison 09-02-2024 Interpretation and review of laboratory results Abnormal [facility] Lactate (BldV) [Moles/Vol] 3.6 mmol/L High 0.5 - 1.9 mmol/L [facility] Lactic Acid, Sepsis 3.6 mmol/L High 0.5-1.9 [facility] Comment on above: Performed By: #### L IP, LIVP, MG, BMP, TROPI, CDP #### [facility] [address] [place] [address] Early Childhood: Miller Shirley MD Interpretation and review of laboratory results Abnormal [facility] Lactate (BldV) [Moles/Vol] 4.0 mmol/L High 0.5 - 1.9 mmol/L [facility] Lactic Acid, Sepsis 4.0 mmol/L High 0.5-1.9 [facility] Comment on above: Performed By: #### L IP, LIVP, MG, BMP, TROPI, CDP #### [facility] [address] [place] [address] Early Childhood: Miller Shirley MD Lipaseon 09-02-2024 Lipase [Catalytic activity/Vol] 20 U/L 13 - 60 U/L [facility] Lipase [Catalytic activity/Vol] 20 U/L Normal 13-60 [facility] Comment on above: Performed By: #### L IP, LIVP, MG, BMP, TROPI, CDP #### [facility] [address] [place] [address] Early Childhood: Miller Shirley MD Liver Profileon 09-02-2024 Albumin [Mass/Vol] 3.9 g/dL Normal 3.5-5.2 [facility] Comment on above: Performed By: #### L IP, LIVP, MG, BMP, TROPI, CDP #### [facility] [address] [place] [address] [place] [address] Early Childhood: Miller Shirley MD Albumin/Glob Ratio 1.6 Normal 1.0-2.5 [facility] Comment on above: Performed By: #### L IP, LIVP, MG, BMP, TROPI, CDP #### [facility] [address] [place] [address] Early Childhood: Miller Shirley MD Alkaline Phos 106 U/L High 35-104 [facility] Comment on above: Performed By: #### L IP, LIVP, MG, BMP, TROPI, CDP #### [address] [place] [address] Early Childhood: Miller Shirley MD ALT [Catalytic activity/Vol] 19 U/L Normal 10-35 [facility] Comment on above: Performed By: #### L IP, LIVP, MG, BMP, TROPI, CDP #### [address] [place] [address] Early Childhood: Miller Shirley MD AST [Catalytic activity/Vol] 16 U/L Normal 10-35 [facility] Comment on above: Performed By: #### L IP, LIVP, MG, BMP, TROPI, CDP #### [address] [place] [address] Early Childhood: Miller Shirley MD Bilirubin [Mass/Vol] 0.2 mg/dL Normal 0.00-1.20 [facility] Comment on above: Performed By: #### L IP, LIVP, MG, BMP, TROPI, CDP #### [address] [place] [address] Early Childhood: Miller Shirley MD Bilirubin, Indirect Can not be calculated Normal 0.0-1 .0 [facility] Comment on above: Performed By: #### L IP, LIVP, MG, BMP, TROPI, CDP #### [facility] [address] [place] [address] Early Childhood: Miller Shirley MD Bilirubin.indirect [Mass/Vol] mg/dL Normal 0.00-0.30 [facility] Comment on above: Performed By: #### L IP, LIVP, MG, BMP, TROPI, CDP #### [facility] [address] [place] [address] Early Childhood: Miller Shirley MD Protein [Mass/Vol] 6.4 g/dL Low 6.6-8.7 [facility] Comment on above: Performed By: #### L IP, LIVP, MG, BMP, TROPI, CDP #### [facility] [address] [place] [address] Early Childhood: Miller Shirley MD Magnesiumon 09-02-2024 Magnesium [Mass/Vol] 1.9 mg/dL 1.6 - 2 .6 mg/dL [facility] Magnesium [Mass/Vol] 1.9 mg/dL Normal 1.6-2.6 [facility] Comment on above: Performed By: #### L IP, LIVP, MG, BMP, TROPI, CDP #### [facility] [address] [place] [address] Early Childhood: Miller Shirley MD Microscopic Urinalysison Casts LM.LPF (Urine sed) [#/Area] 0 TO 2 HYALINE /LPF [facility] Epithelial cells LM.HPF (Urine sed) [#/Area] 0 TO 2 [facility] Interpretation and review of laboratory results Abnormal [facility] Mucus Ql (Urine sed) 1+ Abnormal None [facility] RBC LM.HPF (Urine sed) [#/Area] None [facility] WBC LM.HPF (Urine sed) [#/Area] 0 TO 2 [facility] No Panel Informationon 09-02 Lactic Acid, Sepsis 3.6 mmol/L High (0.5-1.9 ) [facility] Comment on above: Note: Responsible Ob sql server bi developer: EMPLOYEE NON-LAB ([id number]) Reported Physicians See Note [facility] Comment on above: Note: Reported Physi cians:Ordering: STRUGALSKI, CHAIM TAttending: STRUGALSKI, RORYReferring: HardeepNadineie Troponin, High Sens 8 ng/L (0-14 ) [facility] Comment on above: Note: High Sensitivi ty Troponin values cannot be compared with other Troponinmethodologies.Responsible Observer: EMPLOYEE NON-LAB ([id number]) Bilirubin, SemiQt,Ur Negative (NEG ) [facility] Comment on above: Note: Responsible Ob sql server bi developer: ASHA SERRANO ([id number]) Blood, Urine Negative (NEG ) [facility] Comment on above: Note: Responsible Ob sql server bi developer: ASHA SERRANO ([id number]) Casts 0 TO 2 /LPF [facility] Comment on above: Note: HYALINERespons ible Observer: ASHA SERRANO ([id number]) Glucose,Semi-qnt,Ur 3+ mg/dL Abnormal (NEG ) [facility] Comment on above: Note: Responsible Ob sql server bi developer: ASHA SERRANO ([id number]) Mucus Strands 1+ Abnormal (NONE ) [facility] Comment on above: Note: Responsible Ob sql server bi developer: ASHA SERRANO ([id number]) Nitrite,Ur Negative (NEG ) [facility] Comment on above: Note: Responsible Ob sql server bi developer: ASHA SERRANO ([id number]) PH,Ur 6.0 (5.0-9.0 ) [facility] Comment on above: Note: Responsible Ob sql server bi developer: ASHA SERRANO ([id number]) Protein, Semi-qnt,Ur Negative (NEG ) [facility] Comment on above: Note: Responsible Ob sql server bi developer: ASHA SERRANO ([id number]) Reported Physicians See [facility] Comment on above: Note: Reported Physi cians:Ordering: STRUGALSKI, CHAIM TAttending: STRUGALSKI, RORYReferring: Hardeep, Kavita Spec. [place],Ur 1.025 High (1.010-1.02 0 ) [facility] Comment on above: Note: Responsible Ob sql server bi developer: ASHA SERRANO ([id number]) Urine RBC's None /HPF (0-2 ) [facility] Comment on above: Note: Responsible Ob sql server bi developer: ASHA SERRANO ([id number]) Urine WBC's 0 TO 2 /HPF (0-5 ) [facility] Comment on above: Note: Responsible Ob sql server bi developer: ASHA SERRANO ([id number]) Urobilinogen,Ur Normal EU/dL (0.0-1.0 ) [facility] Comment on above: Note: Responsible Ob sql server bi developer: ASHA SERRANO ([id number]) Interpretation and review of laboratory results Abnormal [facility] Abs. Basophil 0.04 k/uL (0.00-0.20 ) [facility] Comment on above: Note: Responsible Ob sql server bi developer: [employer] AUTO[employer] ([id number]) Abs.Imm.Granulocyte <0.03 k/uL (0.00-0. 30 ) [facility] Comment on above: Note: Responsible Ob sql server bi developer: [employer]FILE ([id number]) Abs.Neutrophil (Seg) 3.39 k/uL (1.50-8 .10 ) [facility] Comment on above: Note: Responsible Ob sql server bi developer: [employer]OFILE ([id number]) Albumin/Glob Ratio 1.6 (1.0-2.5 ) [facility] Comment on above: Note: Responsible Ob sql server bi developer: EMPLOYEE NON-LAB (224) Alkaline Phos 106 U/L High (35-104 ) [facility] Comment on above: Note: Responsible Ob sql server bi developer: EMPLOYEE NON-LAB (224) Bilirubin, Indirect Can not be calculate d mg/dL (0.0-1.0 ) [facility] [facility] Comment on above: Note: Responsible Ob sql server bi developer: EMPLOYEE NON-LAB ([id number]) BUN/CRE Ratio 27 High (9-20 ) [facility] Comment on above: Note: Responsible Ob sql server bi developer: EMPLOYEE NON-LAB ([id number]) Cult, Blood See Note [facility] Comment on above: Note: Specimen Descr iption .BLOODSpecial Requests 20ML LACCulture NO GROWTH 7 DAYSReport Status FINAL 09/09/2024 D-Dimer Test <0.27 ug/mL_FEU (0.00-0.59 ) [facility] Comment on above: Note: When combined with [...] in patients withdistal DVT.Responsible Observer: ALISON COHEN ([id number]) Lactic Acid, Sepsis 4.0 mmol/L High (0.5-1.9 ) [facility] Comment on above: Note: Responsible Ob sql server bi developer: EMPLOYEE NON-LAB ([id number]) NRBC Automated 0.0 per_100_WBC (0.0 ) [facility] Comment on above: Note: Responsible Ob sql server bi developer: XNT AUTOFILE ([id number]) Reported Physicians See Note [facility] Comment on above: Note: Reported Physi cians:Ordering: STRUGALSKI, RORYAttending: CINTRA, THAISReferring: Kavita Qureshi Note: Reported Physi cians:Ordering: STRUGALSKI, CHAIM TAttending: STRUGALSKI, RORYReferring: Kavita Qureshi Thyroid Stim. Horm. 0.85 uIU/mL (0.27-4. 20 ) [facility] Comment on above: Note: Responsible Ob sql server bi developer: EMPLOYEE NON-LAB ([id number]) Troponin, High Sens 9 ng/L (0-14 ) [facility] Comment on above: Note: High Sensitivi ty Troponin values cannot be compared with other Troponinmethodologies.Responsible Observer: EMPLOYEE NON-LAB ([id number]) TSHon 09-02-2024 TSH Qn 0.85 m[IU]/L [facility] Thyroid Stim. Horm.on 2024 Thyroid Stim. Horm. 0.85 uIU/mL Normal 0.27-4.20 [facility] Comment on above: Performed By: #### L IP, LIVP, MG, BMP, TROPI, CDP #### [facility] [address] [place] [address] Early Childhood: Miller Shirley MD Troponinon 09-02-2024 Troponin I.cardiac High sensitivity method [Mass/Vol] 8 ng/L 0 - 14 ng/L [facility] Comment on above: High Sensitivity Tro ponin values cannot be compared with other Troponin methodologies. [facility] Troponin, High Sens 8 ng/L Normal 0-14 [facility] Comment on above: Result Comment: High Sensitivity Troponin values cannot be compared with other Troponin methodologies. Performed By: #### L IP, LIVP, MG, BMP, TROPI, CDP #### [facility] [address] [place] [address] Early Childhood: Miller Shirley MD Troponin I.cardiac High sensitivity method [Mass/Vol] 9 ng/L 0 - 14 ng/L [facility] Comment on above: High Sensitivity Tro ponin values cannot be compared with other Troponin methodologies. Troponin, High Sens 9 ng/L Normal 0-14 [facility] Comment on above: Result Comment: High Sensitivity Troponin values cannot be compared with other Troponin methodologies. Performed By: #### L IP, LIVP, MG, BMP, TROPI, CDP #### [facility] [address] [place] [address] Early Childhood: Miller Shirley MD Urinalysison 09-02-2024 Bilirubin Ql (U) Negative NEGATIVE [facility] Clarity (U) Clear Clear [facility] Color (U) Yellow Yellow [facility] Glucose Test strip (U) [Mass/Vol] 3+ Abnormal NEGATIVE mg/dL [facility] Hemoglobin Auto test strip Ql (U) Negative NEGATIVE [facility] Interpretation and review of laboratory results Abnormal [facility] Ketones (U) [Mass/Vol] TRACE Abnormal NEGATIVE mg/dL [facility] Leukocyte esterase Test strip Ql (U) Negative NEGATIVE [facility] Nitrite Ql (U) Negative NEGATIVE [facility] pH (U) 6.0 [pH] 5.0 - 9.0 [facility] Protein (U) [Mass/Vol] Negative NEGATIVE mg/dL [facility] Specific gravity (U) [Rel density] 1.025 High 1.010 - 1.020 [facility] Urobilinogen Qn (U) Normal 0.0 - 1. 0 EU/dL [facility] Urinalysis, Routineon 2024 Bilirubin, SemiQt,Ur Negative Normal NEG [facility] Comment on above: Performed By: #### L IP, LIVP, MG, BMP, TROPI, CDP #### [facility] [address] [place] [address] [place] [address] Early Childhood: Miller Shirley MD Blood, Urine Negative Normal NEG [facility] Comment on above: Performed By: #### L IP, LIVP, MG, BMP, TROPI, CDP #### [address] [place] [address] Early Childhood: Miller Shirley MD Clarity (U) Clear Normal CLEAR [facility] Comment on above: Performed By: #### L IP, LIVP, MG, BMP, TROPI, CDP #### [facility] [address] [place] [address] Early Childhood: Miller Shirley MD Color (U) Yellow Normal YEL [facility] Comment on above: Performed By: #### L IP, LIVP, MG, BMP, TROPI, CDP #### [facility] [address] [place] [address] [place] [address] Early Childhood: Miller Shirley MD Glucose Ql (U) 3+ mg/dL Abnormal NEG [facility] Comment on above: Performed By: #### L IP, LIVP, MG, BMP, TROPI, CDP #### [address] [place], [place] [id number] Early Childhood: Miller Shirley MD Ketones Ql (U) TRACE Abnormal NEG [facility] Comment on above: Performed By: #### L IP, LIVP, MG, BMP, TROPI, CDP #### [facility] [address] [place] [address] [place], [place] [phone] Early Childhood: Miller Shirley MD Leukocyte esterase Test strip Ql (U) Negative Normal NEG [facility] Comment on above: Performed By: #### L IP, LIVP, MG, BMP, TROPI, CDP #### [address] [place], [place] 0907183 Early Childhood: Miller Shirley MD Nitrite,Ur Negative Normal [facility] Comment on above: Performed By: #### L IP, LIVP, MG, BMP, TROPI, CDP #### [address] [place] [address] Early Childhood: Miller Shirley MD PH,Ur 6.0 Normal 5.0-9.0 [facility] Comment on above: Performed By: #### L IP, LIVP, MG, BMP, TROPI, CDP #### [address] [place], [place] [phone] Early Childhood: Miller Shirley MD Protein Ql (U) Negative Normal NEG [facility] Comment on above: Performed By: #### L IP, LIVP, MG, BMP, TROPI, CDP #### [address] [place], [place] 2605383 Early Childhood: Miller Shirley MD Spec. [place],Ur 1.025 High 1.010-1.020 [facility] Comment on above: Performed By: #### L IP, LIVP, MG, BMP, TROPI, CDP #### [facility] [address] [place] [address] [place] [address] Early Childhood: Miller Shirley MD Urobilinogen,Ur Normal Normal 0.0-1.0 [facility] Comment on above: Performed By: #### L IP, LIVP, MG, BMP, TROPI, CDP #### [facility] [address] [place] [address] [place], [place] [phone] Early Childhood: Miller Shirley MD Urinalysis,Microon 5 Casts 0 TO 2 Normal [facility] Comment on above: Result Comment: HYAL INE Performed By: #### L IP, LIVP, MG, BMP, TROPI, CDP #### [facility] [address] [place] [address] [place], [place] [phone] Early Childhood: Miller Shirley MD Epithelial cells LM Ql (Urine sed) 0 TO 2 Normal 0-25 [facility] Comment on above: Performed By: #### L IP, LIVP, MG, BMP, TROPI, CDP #### [address] [place], [place] 3808383 Early Childhood: Miller Shirley MD Mucus Strands 1+ Abnormal NONE [facility] Comment on above: Performed By: #### L IP, LIVP, MG, BMP, TROPI, CDP #### [facility] [address] [place] [address] [place] [address] Early Childhood: Miller Shirley MD Urine RBC's None Normal 0-2 [facility] Comment on above: Performed By: #### L IP, LIVP, MG, BMP, TROPI, CDP #### [facility] [address] [place] [address] Early Childhood: Miller Shirley MD Urine WBC's 0 TO 2 Normal 0-5 [facility] Comment on above: Performed By: #### L IP, LIVP, MG, BMP, TROPI, CDP #### [facility] [address] [place] [address] Early Childhood: Miller Shirley MD US Kidneyon 08-30-2024 Benign left renal cyst. [facility] CONSOLIDATED EXAM: US RENAL COMPL ETE HISTORY: [...] postvoid residual. IMPRESSION: Benign left renal cyst. [facility] Radiology Study observation (narrative) [facility] US KidneyOrdered By: Eduar Lawton on 08-30-2024 [facility] Work Phone: US RENAL COMPLETEon 08-30-19 US [...] Lawton Jr., MD 08/30/24 Final result Normal [facility] Cult,Bloodon 08-26-2024 Cult,Blood Specimen Description .BLOOD Special Requests 20ML LAC Culture NO GROWTH 5 DAYS Report Status FINAL 08/26/2024 Normal [facility] Comment on above: Performed By: #### L IP, LIVP, MG, BMP, TROPI, CDP #### [facility] [address] [place] [address] Early Childhood: Miller Shirley MD Basic Metabolic Panelon Anion gap [Moles/Vol] 13 mmol/L 9 - 16 mmol/L [facility] Calcium [Mass/Vol] 9.8 mg/dL 8.6 - 10. 4 mg/dL [facility] Chloride [Moles/Vol] 93 mmol/L Low 98 - 10 7 mmol/L [facility] CO2 [Moles/Vol] 25 mmol/L 20 - 31 mmol/L [facility] Creatinine [Mass/Vol] 0.8 mg/dL 0.50 - 0.90 mg/dL [facility] Est, Glom Filt Rate 88 - PINF [facility] Comment on above: These results are not [...] 239 mg/dL High 74 - 99 mg/dL [facility] Potassium [Moles/Vol] 4.0 mmol/L 3.7 - 5.3 mmol/L [facility] Sodium [Moles/Vol] 131 mmol/L Low 136 - 145 mmol/L [facility] Urea nitrogen [Mass/Vol] 28 mg/dL High 6 - 20 mg/dL [facility] Urea nitrogen/Creatinine [Mass ratio] 35 mg/mg High 9 - 20 [facility] Basic Metabolic Profon 08-21 Anion gap [Moles/Vol] 13 mmol/L Normal 9-16 [facility] Comment on above: Performed By: #### M G, CDP, TROPI, LIVP, BMP, LIP #### [facility] [address] [place] [address] Early Childhood: Miller Shirley MD BUN/CRE Ratio 35 High 9-20 [facility] Comment on above: Performed By: #### M G, CDP, TROPI, LIVP, BMP, LIP #### [facility] [address] [place] [address] Early Childhood: Miller Shirley MD Calcium [Mass/Vol] 9.8 mg/dL Normal 8.6-10.4 [facility] Comment on above: Performed By: #### M G, CDP, TROPI, LIVP, BMP, LIP #### [address] [place] [address] Early Childhood: Miller Shirley MD Chloride [Moles/Vol] 93 mmol/L Low 98-107 [facility] Comment on above: Performed By: #### M G, CDP, TROPI, LIVP, BMP, LIP #### [facility] [address] [place] [address] Early Childhood: Miller Shirley MD CO2 [Moles/Vol] 25 mmol/L Normal 20-31 [facility] Comment on above: Performed By: #### M G, CDP, TROPI, LIVP, BMP, LIP #### [facility] [address] [place] [address] Early Childhood: Miller Shirley MD Creatinine [Mass/Vol] 0.8 mg/dL Normal 0.50-0.90 [facility] Comment on above: Performed By: #### M G, CDP, TROPI, LIVP, BMP, LIP #### [address] [place] [address] Early Childhood: Miller Shirley MD GFR/1.73 sq M.predicted among non-blacks MDRD (S/P/Bld) [Vol rate/Area] 88 mL/min/{1.73_m2} Normal >60 [facility] Comment on above: Result Comment: These [...] G, CDP, TROPI, LIVP, BMP, LIP #### [address] [place] [address] Early Childhood: Miller Shirley MD Glucose [Mass/Vol] 239 mg/dL High 74-99 [facility] Comment on above: Performed By: #### M G, CDP, TROPI, LIVP, BMP, LIP #### [address] [place] [address] Early Childhood: Miller Shirley MD Potassium [Moles/Vol] 4.0 mmol/L Normal 3.7-5.3 [facility] Comment on above: Performed By: #### M G, CDP, TROPI, LIVP, BMP, LIP #### [address] [place] [address] Early Childhood: Miller Shirley MD Sodium [Moles/Vol] 131 mmol/L Low 136-145 [facility] Comment on above: Performed By: #### M G, CDP, TROPI, LIVP, BMP, LIP #### [facility] [address] [place] [address] Early Childhood: Miller Shirley MD Urea nitrogen [Mass/Vol] 28 mg/dL High 6-20 [facility] Comment on above: Performed By: #### M G, CDP, TROPI, LIVP, BMP, LIP #### [facility] [address] [place] [address] Early Childhood: Miller Shirley MD CBC with Auto Differentialon 08-21-2024 Basophils (Bld) [#/Vol] 0.05 10*3/uL [facility] Basophils/100 WBC (Bld) 1 % 0 - 2 % [facility] Eosinophils (Bld) [#/Vol] 0.11 10*3/uL [facility] Eosinophils/100 WBC (Bld) 1 % 1 - 4 % [facility] Erythrocyte distribution width (RBC) [Ratio] 12.1 % 11.8 - 14.4 % [facility] Hematocrit (Bld) [Volume fraction] 43.7 % 36.3 - 47.1 % [facility] Hemoglobin (Bld) [Mass/Vol] 15.0 g/dL 11.9 - 15.1 g/dL [facility] Immature granulocytes (Bld) [#/Vol] 0.04 10*3/uL [facility] Immature granulocytes/100 WBC (Bld) 0 % 0 [facility] Interpretation and review of laboratory results Abnormal [facility] Lymphocytes/100 WBC (Bld) 25 % 24 - 43 % [facility] Lymphocytes/100 WBC (Bld) 2.70 % [facility] MCH (RBC) [Entitic mass] 28.9 pg 25.2 - 33.5 pg [facility] MCHC (RBC) [Mass/Vol] 34.3 g/dL 28.4 - 34.8 g/dL [facility] MCV (RBC) [Entitic vol] 84.2 fL 82.6 - 102.9 fL [facility] Monocytes/100 WBC (Bld) 8 % 3 - 12 % [facility] Monocytes/100 WBC (Bld) 0.84 % [facility] Neutrophils/100 WBC (Bld) 65 % 36 - 65 % [facility] Nucleated RBC/100 WBC (Bld) [Ratio] 0.0 % 0.0 per 100 WBC [facility] Platelet mean volume (Bld) [Entitic vol] 9.8 fL 8.1 - 13.5 fL [facility] Platelets (Bld) [#/Vol] 352 10*3/uL [facility] RBC (Bld) [#/Vol] 5.19 10*6/uL High 3.95 - 5.1 1 m/uL [facility] Segmented neutrophils/100 WBC (Bld) 7.25 % [facility] WBC other (Bld) [#/Vol] 11.0 [facility] CBC with Diffon 08-21-2024 Abs. Basophil 0.05 k/uL Normal 0.00-0.20 [facility] Comment on above: Performed By: #### Chichi Hernandez, CDP, TROPI, LIVP, BMP, LIP #### [address] [place], [place] [phone] Early Childhood: Miller Shirley MD Abs.Imm.Granulocyte 0.04 k/uL Normal 0.00-0.30 [facility] Comment on above: Performed By: #### M G, CDP, TROPI, LIVP, BMP, LIP #### [address] [place] [address] Early Childhood: Miller Shirley MD Abs.Neutrophil (Seg) 7.25 k/uL Normal 1.50-8.10 [facility] Comment on above: Performed By: #### M G, CDP, TROPI, LIVP, BMP, LIP #### [address] [place] [address] Early Childhood: Miller Shirley MD Basophils/100 WBC (Bld) 1 % Normal 0-2 [facility] Comment on above: Performed By: #### M G, CDP, TROPI, LIVP, BMP, LIP #### [address] [place], [facility] Early Childhood: Miller Shirley MD Eosinophils (Bld) [#/Vol] 0.11 10*3/uL Normal 0.00-0.44 [facility] Comment on above: Performed By: #### M G, CDP, TROPI, LIVP, BMP, LIP #### [address] [place] [id number] Early Childhood: Miller Shirley MD Eosinophils/100 WBC (Bld) 1 % Normal 1-4 [facility] Comment on above: Performed By: #### M G, CDP, TROPI, LIVP, BMP, LIP #### [address] [place], [facility] Early Childhood: Miller Shirley MD Erythrocyte distribution width (RBC) [Ratio] 12.1 % Normal 11.8-14.4 [facility] Comment on above: Performed By: #### M G, CDP, TROPI, LIVP, BMP, LIP #### [address] [place], [facility] Early Childhood: Miller Shirley MD Hematocrit (Bld) [Volume fraction] 43.7 % Normal 36.3-47.1 [facility] Comment on above: Performed By: #### M G, CDP, TROPI, LIVP, BMP, LIP #### [address] [place] [address] Early Childhood: Miller Shirley MD Hemoglobin (Bld) [Mass/Vol] 15.0 g/dL Normal 11.9-15.1 [facility] Comment on above: Performed By: #### M G, CDP, TROPI, LIVP, BMP, LIP #### [facility] [address] [place], [place] 479[address]83 Early Childhood: Miller Shirley MD Immature granulocytes/100 WBC (Bld) 0 % Normal 0 [facility] Comment on above: Performed By: #### M G, CDP, TROPI, LIVP, BMP, LIP #### [facility] [address] [place], [facility] Early Childhood: Miller Shirley MD Lymphocytes (Bld) [#/Vol] 2.70 10*3/uL Normal 1.10-3.70 [facility] Comment on above: Performed By: #### M G, CDP, TROPI, LIVP, BMP, LIP #### [facility] [address] [place] [id number] Early Childhood: Miller Shirley MD Lymphocytes/100 WBC (Bld) 25 % Normal 24-43 [facility] Comment on above: Performed By: #### M G, CDP, TROPI, LIVP, BMP, LIP #### [address] [place] [address] Early Childhood: Miller Shirley MD MCH (RBC) [Entitic mass] 28.9 pg Normal 25.2-33.5 [facility] Comment on above: Performed By: #### M G, CDP, TROPI, LIVP, BMP, LIP #### [facility] [address] [place], [facility] Early Childhood: Miller Shirley MD MCHC (RBC) [Mass/Vol] 34.3 g/dL Normal 28.4-34.8 [facility] Comment on above: Performed By: #### M G, CDP, TROPI, LIVP, BMP, LIP #### [facility] [address] [place] [address] Early Childhood: Miller Shirley MD MCV (RBC) [Entitic vol] 84.2 fL Normal 82.6-102.9 [facility] Comment on above: Performed By: #### M G, CDP, TROPI, LIVP, BMP, LIP #### [facility] [address] [place], [place] [address]3 Early Childhood: Miller Shirley MD Monocytes (Bld) [#/Vol] 0.84 10*3/uL Normal 0.10-1.20 [facility] Comment on above: Performed By: #### M G, CDP, TROPI, LIVP, BMP, LIP #### [address] [place], [place] 5118083 Early Childhood: Miller Shirley MD Monocytes/100 WBC (Bld) 8 % Normal 3-12 [facility] Comment on above: Performed By: #### M G, CDP, TROPI, LIVP, BMP, LIP #### [address] [place] [address] Early Childhood: Miller Shirley MD Neutrophil (Seg) 65 % Normal 36-65 [facility] Comment on above: Performed By: #### M G, CDP, TROPI, LIVP, BMP, LIP #### [address] [place], [place] 5824683 Early Childhood: Miller Shirley MD NRBC Automated 0.0 per 100 WBC Normal 0.0 [facility] Comment on above: Performed By: #### M G, CDP, TROPI, LIVP, BMP, LIP #### [address] [place] [address] Early Childhood: Miller Shirley MD Platelet mean volume (Bld) [Entitic vol] 9.8 fL Normal 8.1-13.5 [facility] Comment on above: Performed By: #### M G, CDP, TROPI, LIVP, BMP, LIP #### [address] [place], [place] 7455990 Early Childhood: Miller Shirely MD Platelets (Bld) [#/Vol] 352 10*3/uL Normal 138-453 [facility] Comment on above: Performed By: #### M G, CDP, TROPI, LIVP, BMP, LIP #### [facility] [address] [place] [address] Early Childhood: Miller Shirley MD RBC (d) [#/Vol] 5.19 10*6/uL High 3.95-5.11 [facility] Comment on above: Performed By: #### M G, CDP, TROPI, LIVP, BMP, LIP #### [address] [place], [place] 2532383 Early Childhood: Miller Shirley MD WBC (Bld) [#/Vol] 11.0 10*3/uL Normal 3.5-11.3 [facility] Comment on above: Performed By: #### M G, CDP, TROPI, LIVP, BMP, LIP #### [address] [place], [place] 1719283 Early Childhood: Miller Shirley MD Drug Scr, Abuse, Uron 2024 Amphetamine(s),Ur Negative Normal NEG [facility] Comment on above: Result Comment: Cuto ff: 1000 ng/mL Performed By: #### L IP, LIVP, MG, BMP, TROPI, CDP #### [address] [place] [address] Early Childhood: Miller Shirley MD Barbiturate(s),Ur Negative Normal NEG [facility] Comment on above: Result Comment: Cuto ff: 200 ng/ml Performed By: #### L IP, LIVP, MG, BMP, TROPI, CDP #### [address] [place] [address] Early Childhood: Miller Shirley MD Benzodiazepine(s) Negative Normal NEG [facility] Comment on above: Result Comment: Cuto ff: 200 ng/ml Performed By: #### L IP, LIVP, MG, BMP, TROPI, CDP #### [facility] [address] [place], [place] 05[address]83 Early Childhood: Miller Shirley MD Buprenorphrine, Ur Negative Normal NEG [facility] Comment on above: Result Comment: Cuto ff: 5 ng/ml Performed By: #### L IP, LIVP, MG, BMP, TROPI, CDP #### [facility] [address] [place], [place] 2724283 Early Childhood: Miller Shirley MD Cannabinoid(s),Ur Negative Normal NEG [facility] Comment on above: Result Comment: Cuto ff: 50 ng/ml Performed By: #### L IP, LIVP, MG, BMP, TROPI, CDP #### [facility] [address] [place] [address] [place], [place] 8524583 Early Childhood: Miller Shirley MD Cocaine Metabolite Negative [facility] Comment on above: Result Comment: Cuto ff: 300 ng/ml Performed By: #### L IP, LIVP, MG, BMP, TROPI, CDP #### [facility] [address] [place], [place] 0[address]83 Early Childhood: Miller Shirley MD Fentanyl, Urine Negative Normal NEG [facility] Comment on above: Result Comment: Cuto ff: 5 ng/ml Performed By: #### L IP, LIVP, MG, BMP, TROPI, CDP #### [facility] [address] [place] [address] Early Childhood: Miller Shirley MD Interpretive Info This method is a screening test to detect only these drug classes as part of a Normal [facility] Comment on above: Result Comment: medi onofre workup. Confirmatory testing by another method should be ordered if clinically indicated. Performed By: #### L IP, LIVP, MG, BMP, TROPI, CDP #### [facility] [address] [place] [address] [place], [place] 8557683 Early Childhood: Miller Shirley MD Methadone Ql (U) Negative Normal NEG [facility] Comment on above: Result Comment: Cuto ff: 300 ng/ml Performed By: #### L IP, LIVP, MG, BMP, TROPI, CDP #### [address] [place], [place] [address]83 Early Childhood: Miller Shirley MD Opiate(s), Ur Negative Normal NEG [facility] Comment on above: Result Comment: Cuto ff: 300 ng/ml Note: The Opiate screen is not intended to detect Oxycodone. Performed By: #### L IP, LIVP, MG, BMP, TROPI, CDP #### [address] [place], [place] 384[address]83 Early Childhood: Miller Shirley MD Oxycodone, Urine Negative Normal NEG [facility] Comment on above: Result Comment: Cuto ff: 100 ng/ml Performed By: #### L IP, LIVP, MG, BMP, TROPI, CDP #### [address] [place], [place] 6238983 Early Childhood: Miller Shirley MD Phencyclidine, Ur Negative Normal [facility] Comment on above: Result Comment: Cuto ff: 25 ng/ml Performed By: #### L IP, LIVP, MG, BMP, TROPI, CDP #### [address] [place] [address] Early Childhood: Miller Shirley MD EKG 12 LeadOrdered By: Yassine benavides on 08-21-2024 Atrial Rate 136 BPM [employer] [facility] Work Phone: P [place] 63 degrees Bon [facility] Work Phone: P-R Interval 140 ms [employer] [facility] Work Phone: Q-T Interval 296 ms [employer] [facility] Work Phone: QRS Duration 70 ms [employer] Work Phone: QTc Calculation (Bazett) 445 ms [employer] Work Phone: R [place] 29 degrees [employer] Work Phone: T [place] 94 degrees [employer] Work Phone: Ventricular Rate 136 BPM Bon [employer] [facility] [employer] Work Phone: [employer] Work Phone: EKG 12 Leadon 08-21-2024 Sinus tachycardia Septal infarct , age undetermined Abnormal ECG No previous ECGs available Confirmed by Yassine Rendon MD ([id number]) on 08/21/2024 7:41:19 PM [facility] Yassine Rendon MD - 08/21/2024 Sinus tachycardia Septal infarct , age undetermined Abnormal ECG No previous ECGs available Confirmed by Yassine Rendon MD ([id number]) on 08/21/2024 7:41:19 PM [employer] Hepatic Function Panelon Albumin [Mass/Vol] 4.2 g/dL 3.5 - 5.2 g/dL [employer] [facility] Albumin/Globulin [Mass ratio] 1.5 {ratio} 1.0 - 2.5 [employer] [facility] ALP [Catalytic activity/Vol] 95 U/L 35 - 104 U/L [employer] ALT [Catalytic activity/Vol] 21 U/L 10 - 35 U/L [employer] AST [Catalytic activity/Vol] 17 U/L 10 - 35 U/L [employer] Bilirubin [Mass/Vol] 0.3 mg/dL 0.00 - 1.20 mg/dL [employer] [facility] Bilirubin.direct [Mass/Vol] mg/dL 0.00 - 0.30 mg/dL [employer] Bilirubin.indirect [Mass/Vol] Can not be calculated 0.0 - 1.0 mg/dL Compliance 360 Protein [Mass/Vol] 7.0 g/dL 6.6 - 8.7 g/dL [facility] Lactate, Sepsison 08-21-2024 Interpretation and review of laboratory results Abnormal [facility] Lactate (BldV) [Moles/Vol] 2.1 mmol/L High 0.5 - 1.9 mmol/L [facility] Lactic Acid, Sepsis 2.1 mmol/L High 0.5-1.9 [facility] Comment on above: Performed By: #### L IP, LIVP, MG, BMP, TROPI, CDP #### [facility] [address] [place] [address] Early Childhood: Miller Shirley MD Lipaseon 08-21-2024 Lipase [Catalytic activity/Vol] 18 U/L 13 - 60 U/L [facility] Lipase [Catalytic activity/Vol] 18 U/L Normal 13-60 [facility] Comment on above: Performed By: #### M G, CDP, TROPI, LIVP, BMP, LIP #### [facility] [address] [place] [address] Early Childhood: Miller Shirley MD Liver Profileon 08-21-2024 Albumin [Mass/Vol] 4.2 g/dL Normal 3.5-5.2 [facility] Comment on above: Performed By: #### M G, CDP, TROPI, LIVP, BMP, LIP #### [facility] [address] [place], [place] [id number] Early Childhood: Miller Shirley MD Albumin/Glob Ratio 1.5 Normal 1.0-2.5 [facility] Comment on above: Performed By: #### M G, CDP, TROPI, LIVP, BMP, LIP #### [facility] [address] [place] [address] Early Childhood: Miller Shirley MD Alkaline Phos 95 U/L Normal 35-104 [facility] Comment on above: Performed By: #### M G, CDP, TROPI, LIVP, BMP, LIP #### [facility] [address] [place], [place] [id number] Early Childhood: Miller Shirley MD ALT [Catalytic activity/Vol] 21 U/L Normal 35 [facility] Comment on above: Performed By: #### M G, CDP, TROPI, LIVP, BMP, LIP #### [address] [place], [place] [id number] Early Childhood: Miller Shirley MD AST [Catalytic activity/Vol] 17 U/L Normal 35 [facility] Comment on above: Performed By: #### M G, CDP, TROPI, LIVP, BMP, LIP #### [address] [place], [place] [id number] Early Childhood: Miller Shirley MD Bilirubin [Mass/Vol] 0.3 mg/dL Normal 0.00-1.20 [facility] Comment on above: Performed By: #### M G, CDP, TROPI, LIVP, BMP, LIP #### [address] [place], [place] [id number] Early Childhood: Miller Shirley MD Bilirubin, Indirect Can not be calculated Normal 0.0-1 .0 [facility] Comment on above: Performed By: #### M G, CDP, TROPI, LIVP, BMP, LIP #### [address] [place], [place] [phone] Early Childhood: Miller Shirley MD Bilirubin.indirect [Mass/Vol] mg/dL Normal 0.00-0.30 [facility] Comment on above: Performed By: #### M G, CDP, TROPI, LIVP, BMP, LIP #### [address] [place] [address] Early Childhood: Miller Shirley MD Protein [Mass/Vol] 7.0 g/dL Normal 6.6-8.7 [facility] Comment on above: Performed By: #### M G, CDP, TROPI, LIVP, BMP, LIP #### [facility] [address] [place] [address] Early Childhood: Miller Shirley MD Magnesiumon 08-21-2024 Magnesium [Mass/Vol] 2.0 mg/dL 1.6 - 2 .6 mg/dL [facility] Magnesium [Mass/Vol] 2.0 mg/dL Normal 1.6-2.6 [facility] Comment on above: Performed By: #### L IP, LIVP, MG, BMP, TROPI, CDP #### [facility] [address] [place] [address] Early Childhood: Miller Shirley MD No Panel Informationon 08-21 Interpretation and review of laboratory results Abnormal [facility] Portable XR Chest AP single viewon 08-21-2024 No acute cardiopulmo nary process. PN RIS CONSOLIDATED EXAMINATION: ONE XRAY VIEW OF [...] noted. Osseous and mediastinal structures are age-appropriate. PN RIS CONSOLIDATED Nesha Francisco MD - 08/21/2024 [...] are age-appropriate. IMPRESSION: No acute cardiopulmonary process. [facility] Radiology Study observation (narrative) [facility] Portable XR Chest AP single viewOrdered By: Nesha Francisco on 08-21-2024 [facility] Work Phone: Troponinon 08-21-2024 Troponin I.cardiac High sensitivity method [Mass/Vol] 14 ng/L 0 - 14 ng/L [facility] Comment on above: High Sensitivity Tro ponin values cannot be compared with other Troponin methodologies. [facility] Troponin, High Sens 14 ng/L Normal 0-14 [facility] Comment on above: Result Comment: High Sensitivity Troponin values cannot be compared with other Troponin methodologies. Performed By: #### L IP, LIVP, MG, BMP, TROPI, CDP #### [facility] [address] [place] [address] Early Childhood: Miller Shirley MD Troponin I.cardiac High sensitivity method [Mass/Vol] 17 ng/L High 0 - 14 ng/L [facility] Comment on above: High Sensitivity Tro ponin values cannot be compared with other Troponin methodologies. Troponin, High Sens 17 ng/L High 0-14 [facility] Comment on above: Result Comment: High Sensitivity Troponin values cannot be compared with other Troponin methodologies. Performed By: #### L IP, LIVP, MG, BMP, TROPI, CDP #### [facility] [address] [place] [address] Early Childhood: Miller Shirley MD Urinalysison 08-21-2024 Bilirubin Ql (U) Negative NEGATIVE [facility] Clarity (U) Clear Clear [facility] Color (U) Yellow Yellow [facility] Glucose Test strip (U) [Mass/Vol] Negative NEGATIVE mg/dL [facility] Hemoglobin Auto test strip Ql (U) Negative NEGATIVE [facility] Interpretation and review of laboratory results Abnormal [facility] Ketones (U) [Mass/Vol] Negative NEGATIVE mg/dL [facility] Leukocyte esterase Test strip Ql (U) Negative NEGATIVE [facility] Nitrite Ql (U) Negative NEGATIVE [facility] pH (U) 6.0 [pH] 5.0 - 9.0 [facility] Protein (U) [Mass/Vol] Negative NEGATIVE mg/dL [facility] Specific gravity (U) [Rel density] Low 1.010 - 1.020 [facility] Urobilinogen Qn (U) Normal 0.0 - 1. 0 EU/dL [facility] Urinalysis, Routineon 2024 Bilirubin, SemiQt,Ur Negative Normal NEG [facility] Comment on above: Performed By: #### L IP, LIVP, MG, BMP, TROPI, CDP #### [facility] [address] [place] [address] [place] [address] Early Childhood: Miller Shirley MD Blood, Urine Negative Normal NEG [facility] Comment on above: Performed By: #### L IP, LIVP, MG, BMP, TROPI, CDP #### [address] [place] [address] Early Childhood: Miller Shirley MD Clarity (U) Clear Normal CLEAR [facility] Comment on above: Performed By: #### L IP, LIVP, MG, BMP, TROPI, CDP #### [address] [place] [address] Early Childhood: Miller Shirley MD Color (U) Yellow Normal YEL [facility] Comment on above: Performed By: #### L IP, LIVP, MG, BMP, TROPI, CDP #### [address] [place], [place] [phone] Early Childhood: Miller Shirley MD Glucose Ql (U) Negative Normal [facility]G [facility] Comment on above: Performed By: #### L IP, LIVP, MG, BMP, TROPI, CDP #### [address] [place] [address] Early Childhood: Miller Shirley MD Ketones Ql (U) Negative Normal NEG [facility] Comment on above: Performed By: #### L IP, LIVP, MG, BMP, TROPI, CDP #### [address] [place], [place] [phone] Early Childhood: Miller Shirley MD Leukocyte esterase Test strip Ql (U) Negative Normal NEG [facility] Comment on above: Performed By: #### L IP, LIVP, MG, BMP, TROPI, CDP #### [address] [place], [place] [address] Early Childhood: Miller Shirley MD Nitrite,Ur Negative Normal NEG [facility] Comment on above: Performed By: #### L IP, LIVP, MG, BMP, TROPI, CDP #### [address] [place], [facility] Early Childhood: Miller Shirley MD PH,Ur 6.0 Normal 5.0-9.0 [facility] Comment on above: Performed By: #### L IP, LIVP, MG, BMP, TROPI, CDP #### [address] [place], [facility] Early Childhood: Miller Shirley MD Protein Ql (U) Negative Normal NEG [facility] Comment on above: Performed By: #### L IP, LIVP, MG, BMP, TROPI, CDP #### [address] [place], [facility] Early Childhood: Miller Shirley MD Spec. [place],Ur <1.005 Low 1.010-1.020 [facility] Comment on above: Performed By: #### L IP, LIVP, MG, BMP, TROPI, CDP #### [address] [place] [id number] Early Childhood: Miller Shirley MD Urobilinogen,Ur Normal Normal 0.0-1.0 [facility] Comment on above: Performed By: #### L IP, LIVP, MG, BMP, TROPI, CDP #### [place] [address] [place] [address] Early Childhood: Miller Shirley MD Urine Drug Screenon 08-21-19 25 Amphetamines Ql (U) Negative NEGATIVE [facility] Comment on above: Cutoff: 1000 ng/mL Barbiturates Screen Ql (U) Negative NEGATIVE [facility] Comment on above: Cutoff: 200 ng/ml Benzodiazepines Ql (U) Negative NEGATIVE [facility] Comment on above: Cutoff: 200 ng/ml Buprenorphine Ql (U) Negative NEGATIVE [facility] Comment on above: Cutoff: 5 ng/ml Cannabinoids Screen Ql (U) Negative NEGATIVE [facility] Comment on above: Cutoff: 50 ng/ml Cocaine Ql (U) Negative NEGATIVE [facility] Comment on above: Cutoff: 300 ng/ml fentaNYL Ql (U) Negative NEGATIVE [facility] Comment on above: Cutoff: 5 ng/ml Methadone Ql (U) Negative NEGATIVE [facility] Comment on above: Cutoff: 300 ng/ml Opiates Screen Ql (U) Negative NEGATIVE [facility] Comment on above: Cutoff: 300 ng/ml Note: The Opiate screen is not intended to detect Oxycodone. oxyCODONE Ql (U) Negative NEGATIVE [facility] Comment on above: Cutoff: 100 ng/ml Phencyclidine Ql (U) Negative NEGATIVE [facility] Comment on above: Cutoff: 25 ng/ml Test Information This method is a screening test to detect only these drug classes as part of a medical workup. Confirmatory testing by another method should be ordered if clinically indicated. [facility]iance [facility] X[facility] CHEST PORTABLEon 08-21-19 25 XR CHEST [...] Nesha Francisco MD 08/21/24 Final result Normal [facility] XR CERVICAL SPINE (4-5 VIEWS )on [...] Lawton Jr., MD 08/12/24 Final result Normal [facility] XR Cervical spine 4 or 5 [...] fracture. 4. No acute or suspicious findings. [facility] Radiology Study observation (narrative) [facility] XR Cervical spine 4 or 5 Vie wsOrdered By: Eduar Lawton on 08-12-2024 [facility] Work Phone: XR THORACIC SPINE (3 VIEWS)o [...] Lawton Jr., MD 08/12/24 Final result Normal [facility] XR Thoracic spine 3 Viewson 08-12-2024 [...] 3. No fracture, lytic or blastic lesion. [facility] Radiology Study observation (narrative) [facility] XR Thoracic spine 3 ViewsOrd ered By: Eduar Lawton on 08-12-2024 [facility] Work Phone: XR LUMBAR SPINE (MIN 4 [...] Cris Peterson MD 08/04/24 Final result Normal [facility] Laboratory - Chemistry and C hemistry - challengeon 06-06-2024 Albumin [Mass/Vol] 4.1 g/dL (3.8-4.9 ) [facility] ALP [Catalytic activity/Vol] 114 U/L (44-121 ) [facility] ALT [Catalytic activity/Vol] 16 U/L (0-32 ) [facility] AST [Catalytic activity/Vol] 10 U/L (0-40 ) [facility] Average glucose Estimated from glycated hemoglobin (Bld) [Mass/Vol] [employer]ER [facility] Bilirubin [Mass/Vol] mg/dL (0.0-1.2 ) [facility] Calcium [Mass/Vol] 9.9 mg/dL (8.7-10.2 ) [facility] Chloride [Moles/Vol] 93 mmol/L Low (96-106 ) [facility] Cholesterol [Mass/Vol] 438 mg/dL High (100-199 ) [facility] Cholesterol in HDL [Mass/Vol] 34 mg/dL Low (>39 ) [facility] Cholesterol in LDL [Mass/Vol] Comment mg/dL Abnormal (0-99 ) [facility] Comment on above: Note: Triglyceride r esult indicated is too high for an accurateLDL cholesterol estimation. Cholesterol in LDL/Cholesterol in HDL [Mass ratio] TNP ratio [facility] Comment on above: Note: Unable to calc ulate result since non-numeric resultobtained for component test. . LDL/HDL Ratio Men Women 1/2 Avg.Risk 1.0 1.5 Avg.Risk 3.6 3.2 2X Avg.Risk 6.2 5.0 3X Avg.Risk 8.0 6.1 Cholesterol in VLDL [Mass/Vol] TNP mg/dL [facility] Comment on above: Note: Unable to calc ulate result since non-numeric resultobtained for component test. CO2 [Moles/Vol] 20 mmol/L (20-29 ) [facility] Creatinine [Mass/Vol] 0.49 mg/dL Low (0.57- 1.00 ) [facility] Free T4 [Mass/Vol] 1.30 ng/dL (0.82-1.7 7 ) [facility] GFR/1.73 sq M.predicted among non-blacks MDRD (S/P/Bld) [Vol rate/Area] 111 mL/min/{1.73_m2} (>59 ) [facility] Globulin (S) [Mass/Vol] 2.3 g/dL (1.5-4.5 ) [facility] Glucose [Mass/Vol] 468 mg/dL High (70-99 ) [facility] Potassium [Moles/Vol] 5.1 mmol/L (3.5-5.2 ) [facility] Protein [Mass/Vol] 6.4 g/dL (6.0-8.5 ) [facility] Sodium [Moles/Vol] 130 mmol/L Low (134-144 ) [facility] Triglyceride [Mass/Vol] 895 mg/dL Critically high (0-149 ) [facility] Comment on above: Note: Results confir med ondilution. TSH Qn 1.180 uIU/mL (0.450-4.50 0 ) [facility] Urea nitrogen [Mass/Vol] 16 mg/dL (6-24 ) [facility] Urea nitrogen/Creatinine [Mass ratio] 33 mg/mg High (9-23 ) [facility] Laboratory - Hematology and Cell countson 06-06-2024 Basophils (Bld) [#/Vol] 0.1 10*3/uL (0.0-0.2 ) [facility] Basophils/100 WBC (Bld) 1 % (Not Estab. ) [facility] Eosinophils (Bld) [#/Vol] 0.1 10*3/uL (0.0-0.4 ) [facility] Eosinophils/100 WBC (Bld) 1 % (Not Estab. ) [facility] Erythrocyte distribution width (RBC) [Ratio] 12.6 % (11.7-15.4 ) [facility] HbA1c (Bld) [Mass fraction] TNP % [facility] Comment on above: Note: Test not perfo rmed. Insufficient specimen to perform orcomplete analysis. . . Prediabetes: 5.7 - 6.4 Diabetes: >6.4 Glycemic control for adults with diabetes: <7.0 Hematocrit (Bld) [Volume fraction] 46.0 % (34.0-46.6 ) [facility] Hemoglobin (Bld) [Mass/Vol] 15.3 g/dL (11.1-15.9 ) [facility] Immature granulocytes (Bld) [#/Vol] 0.0 10*3/uL (0.0-0.1 ) [facility] Immature granulocytes/100 WBC (Bld) 1 % (Not Estab. ) [facility] Lymphocytes (Bld) [#/Vol] 1.7 10*3/uL (0.7-3.1 ) [facility] Lymphocytes/100 WBC (Bld) 30 % (Not Estab. ) [facility] MCH (RBC) [Entitic mass] 30.1 pg (26.6-33.0 ) [facility] MCHC (RBC) [Mass/Vol] 33.3 g/dL (31.5- 35.7 ) [facility] MCV (RBC) [Entitic vol] 90 fL (79-97 ) [facility] Monocytes (Bld) [#/Vol] 0.5 10*3/uL (0.1-0.9 ) [facility] Monocytes/100 WBC (Bld) 9 % (Not Estab. ) [facility] Morphology Brian (Bld) [Interp] [employer]INEER [facility] Neutrophils (Bld) [#/Vol] 3.3 10*3/uL (1.4-7.0 ) [facility] Neutrophils/100 WBC (Bld) 58 % (Not Estab. ) [facility] Nucleated RBC/100 WBC (Bld) [Ratio] [employer]ER [facility] Platelets (Bld) [#/Vol] 289 10*3/uL (150-450 ) [facility] RBC (Bld) [#/Vol] 5.09 10*6/uL (3.77-5.28 ) [facility] WBC (Bld) [#/Vol] 5.6 10*3/uL (3.4-10.8 ) [facility] Comment on above: Note: Effective De cember 2023 profile [id number] WBC will bemade non-orderable as a stand-alone order code. No Panel Informationon 06-06 Immature Cells [employer] [facility] LDL Calc Comment: Comment [facility] Comment on above: Note: In the absence of the LDL-c value, if the Total Cholesterol(TC) is >260 mg/dL for those <16 years old or >290 forthose >/=16 years old, consider evaluating for FamilialHypercholesterolemia(FH) if clinically indicated.If the TC is below these limits, the probability of FHcannot be determined. Reported Physicians See Note [facility] Comment on above: Note: Reported Physi cians:Ordering: Kavita Qureshi Specimen Status Report [facility] Comment on above: Note: Test not perfo rmed. Insufficient specimen to perform orcomplete analysis. TEST: [id number] Hgb A1c with eAG Estimation Glucose, Whole Bloodon 07-05 Glucose [Mass/Vol] 350 mg/dL High 65 - 99 mg/dL [facility] Interpretation and review of laboratory results Abnormal [facility] CBC with Auto Differentialon 07-04-2022 Absolute Eos # 0.10 [facility] Absolute Lymph # 0.80 Low [facility] Absolute [place] # 0.60 [facility] Basophils (Bld) [#/Vol] 0.00 10*3/uL [facility] Basophils/100 WBC (Bld) 1 % 0 - 2 % [facility] Differential Type YES [facility] Eosinophils/100 WBC (Bld) 2 % 0 - 5 % [facility] Hematocrit (Bld) [Volume fraction] 43.2 % 36 - 46 % [facility] Hemoglobin (Bld) [Mass/Vol] 14.2 g/dL 12.0 - 16.0 g/dL [facility] Interpretation and review of laboratory results Abnormal [facility] Lymphocytes/100 WBC (Bld) 14 % Low 15 - 40 % [facility] MCH (RBC) [Entitic mass] 28.3 pg 26 - 34 pg [facility] MCHC (RBC) [Mass/Vol] 32.8 g/dL 31 - 3 7 g/dL [facility] MCV (RBC) [Entitic vol] 86.3 fL 80 - 100 fL [facility] Monocytes/100 WBC (Bld) 11 % High 4 - 8 % [facility] Platelet distribution width (Bld) [Ratio] 13.4 % 12.1 - 15.2 % [facility] Platelets (Bld) [#/Vol] 382 10*3/uL [facility] RBC (Bld) [#/Vol] 5.01 10*6/uL 4.0 - 5.2 m/uL [facility] Segmented neutrophils/100 WBC (Bld) 72 % 47 - 75 % [facility] Segs Absolute 4.20 [facility] WBC (Bld) [#/Vol] 5.8 10*3/uL [facility] Comprehensive Metabolic Pane karthikeyan 07-04-2022 Albumin [Mass/Vol] 3.7 g/dL 3.5 - 5.2 g/dL [facility] ALP (Bld) [Catalytic activity/Vol] 120 U/L High 35 - 104 U/L [facility] ALT [Catalytic activity/Vol] 26 U/L 5 - 33 U/L [facility] Anion gap [Moles/Vol] 12 mmol/L 9 - 17 mmol/L [facility] AST [Catalytic activity/Vol] 22 U/L NINF - 32 U/L [facility] Bilirubin [Mass/Vol] 0.3 mg/dL 0.3 - 1 .2 mg/dL [facility] Calcium [Mass/Vol] 9.3 mg/dL 8.6 - 10. 4 mg/dL [facility] Chloride [Moles/Vol] 93 mmol/L Low 98 - 10 7 mmol/L [facility] CO2 [Moles/Vol] 26 mmol/L 20 - 31 mmol/L [facility] Creatinine [Mass/Vol] 0.42 mg/dL Low 0.50 - 0.90 mg/dL [facility] GFR/1.73 sq M.predicted MDRD (S/P/Bld) [Vol rate/Area] - PINF [facility] Comment on above: Effective Apr 18, 2022 [...] 382 mg/dL High 70 - 99 mg/dL [facility] Interpretation and review of laboratory results Abnormal [facility] Potassium [Moles/Vol] 4.9 mmol/L 3.7 - 5.3 mmol/L [facility] Protein [Mass/Vol] 7.1 g/dL 6.4 - 8.3 g/dL [facility] Sodium [Moles/Vol] 131 mmol/L Low 135 - 144 mmol/L [facility] Urea nitrogen (BldV) [Mass/Vol] 10 mg/dL 6 - 20 mg/dL [facility] Urea nitrogen/Creatinine (Bld) [Mass ratio] 24 High 9 - 20 [facility] Hemoglobin A1Con 07-04-2022 Glucose [Mass/Vol] 344 mg/dL [facility] Comment on above: The ADA and AACC rec ommend providing the estimated average glucose result to permit better patient understanding of their HBA1c result. HbA1c (Bld) [Mass fraction] 13.6 % High 4.0 - 6.0 % [facility] Interpretation and review of laboratory results Abnormal [facility] Lipid Panelon 07-04-2022 Cholesterol [Mass/Vol] 338 mg/dL High NINF - 200 mg/dL [facility] Comment on above: Cholesterol Guidelines: <200 Desirable 200-240 Borderline >240 Undesirable Cholesterol in HDL [Mass/Vol] 37 mg/dL Low 40 - PINF mg/dL [facility] Comment on above: HDL Guidelines: <40 Undesirable 40-59 Borderline >59 Desirable Cholesterol in LDL [Mass/Vol] 235 mg/dL High 0 - 130 mg/dL [facility] Comment on above: LDL Guidelines: <100 Desirable 100-129 Near to/above Desirable 130-159 Borderline >159 Undesirable Direct (measured) LDL and calculated LDL are not interchangeable tests. Cholesterol.total/Cho lesterol in HDL [Mass ratio] 9.1 {ratio} High NINF - 5 [facility] Interpretation and review of laboratory results Abnormal [facility] Triglyceride [Mass/Vol] 330 mg/dL High NINF - 150 mg/dL [facility] Comment on above: Triglyceride Guidelines: <150 Desirable 150-199 Borderline 200-499 High >499 Very high Based on AHA Guidelines for fasting triglyceride, April 2012. [facility] Microalbumin, Uron 2 Albumin/Creatinine DL <= 20 mg/L (24H U) [Mass ratio] 17 mg/L NINF - 21 mg/L [facility] Albumin/Creatinine DL <= 20 mg/L (U) [Ratio] 28 High NINF [facility] Creatinine [Mass/Vol] 61.0 mg/dL 28.0 - 217.0 mg/dL [facility] Interpretation and review of laboratory results Abnormal [facility] Patient Fasting?on 2 Patient Fasting? YES [facility] B HYDROXYBUTYRATEon 06-22-20 22 B HYDROXYBUTYRATE 2.66 MMOL/L High 0.02-0.27 [facility] CBCon 06-22-2022 ABSOLUTE BAS 0.1 10*3/uL Normal 0.0-0.2 [facility] ABSOLUTE EOS 0.1 10*3/uL Normal 0.0-0.7 [facility] ABSOLUTE NEUTROPHIL COUNT 4.7 10*3/uL Normal 1.4-6.5 [facility] Basophils/100 WBC (Bld) 1.3 % Normal 0.0-2.0 [facility] DTYPE AUTO DIFF Normal [facility] Eosinophils/100 WBC (Bld) 0.9 % Normal 0.0-11.0 [facility] Lymphocytes (Bld) [#/Vol] 1.4 10*3/uL Normal 1.2-3.4 [facility] Lymphocytes/100 WBC (Bld) 19.9 % Low 20.0-55.0 [facility] Monocytes (Bld) [#/Vol] 0.7 10*3/uL Normal 0.0-0.7 [facility] Monocytes/100 WBC (Bld) 10.1 % High 0.0-10.0 [facility] Neutrophils/100 WBC (Bld) 67.8 % Normal 37.0-75.0 [facility] Erythrocyte distribution width (RBC) [Ratio] 13.7 % Normal 11.5-14.5 [facility] Hematocrit (Bld) [Volume fraction] 39.8 % Normal 36.0-48.0 [facility] Comment on above: Result Comment: IV [place] [facility] Hemoglobin (Bld) [Mass/Vol] 13.4 g/dL Normal 12.0-16.0 [facility] Comment on above: Result Comment: iv f [facility] MCH (RBC) [Entitic mass] 29.2 pg Normal 26.0-35.0 [facility] MCHC (RBC) [Mass/Vol] 33.8 g/dL Normal 27.0-37.0 [facility] MCV (RBC) [Entitic vol] 86.4 fL Normal 80.0-100.0 [facility] Comment on above: Result Comment: [facility] [place] [facility] Platelet mean volume (Bld) [Entitic vol] 8.9 fL Normal 7.4-11.0 [facility] Platelets (Bld) [#/Vol] 319 10*3/uL Normal 130.0-400.0 [facility] RBC (Bld) [#/Vol] 4.61 10*6/uL Normal 4.0-5.4 [facility] WBC (Bld) [#/Vol] 6.9 10*3/uL Normal 3.6-11.0 [facility] CBC, EDIF, PLATELETon 2021 ABSOLUTE BASOPHIL COUNT 0.1 10*3/uL 0.0 - 0.2 10*3/uL [facility] Basophils/100 WBC (Bld) 1.3 % 0.0 - 2.0 % [facility] Differential cell count method Nom (Bld) AUTO DIFF % [facility] Eosinophils (Bld) [#/Vol] 0.1 10*3/uL 0.0 - 0.7 10*3/uL [facility] Eosinophils/100 WBC (Bld) 0.9 % 0.0 - 11.0 % [facility] Erythrocyte distribution width (RBC) [Ratio] 13.7 % 11.5 - 14.5 % [facility] Hematocrit (Bld) [Volume fraction] 39.8 % 36.0 - 48.0 % [facility] Comment on above: IV FLUIDS Hemoglobin (Bld) [Mass/Vol] 13.4 g/dL [facility] Comment on above: iv fluids Interpretation and review of laboratory results Abnormal [facility] Lymphocytes (Bld) [#/Vol] 1.4 10*3/uL 1.2 - 3.4 10*3/uL [facility] Lymphocytes/100 WBC (Bld) 19.9 % Low 20.0 - 55.0 % [facility] MCH (RBC) [Entitic mass] 29.2 pg 26.0 - 35.0 PG [facility] MCHC (RBC) [Mass/Vol] 33.8 g/dL [facility] MCV (RBC) [Entitic vol] 86.4 fL [facility] Comment on above: IV FLUIDS Monocytes (Bld) [#/Vol] 0.7 10*3/uL 0.0 - 0.7 10*3/uL [facility] Monocytes/100 WBC (Bld) 10.1 % High 0.0 - 10.0 % [facility] Neutrophils (Bld) [#/Vol] 4.7 10*3/uL 1.4 - 6.5 10*3/uL [facility] Neutrophils/100 WBC (Bld) 67.8 % 37.0 - 75.0 % [facility] Platelet mean volume (Bld) [Entitic vol] 8.9 fL [facility] Platelets (Bld) [#/Vol] 319 10*3/uL 130.0 - 400.0 10*3/uL [facility] RBC (Bld) [#/Vol] 4.61 10*6/uL 4.0 - 5.4 10*6/uL [facility] WBC (Bld) [#/Vol] 6.9 10*3/uL 3.6 - 11.0 10*3/uL [facility] GLUCOSE (POC DEVICE)on 06-22 GLUCOSE, POINT OF CARE 190 [facility] Interpretation and review of laboratory results Abnormal [facility] Welder/Fabricator [id number] [facility] GLUCOSE, POINT OF CARE 323 [facility] Interpretation and review of laboratory results Abnormal [facility] Welder/Fabricator [id number] [facility] GLUCOSE, POINT OF CARE 340 [facility] Interpretation and review of laboratory results Abnormal [facility] Welder/Fabricator [id number] [facility] GLUCOSE, POINT OF CARE 214 [facility] Interpretation and review of laboratory results Abnormal [facility] Welder/Fabricator [id number] [facility] GLUCOSE, POINT OF CARE 213 [facility] Interpretation and review of laboratory results Abnormal [facility] Welder/Fabricator [id number] [facility] GLUCOSE, POINT OF CARE 230 [facility] Interpretation and review of laboratory results Abnormal [facility] Welder/Fabricator [id number] [facility] GLUCOSE, POINT OF CARE 234 [facility] Interpretation and review of laboratory results Abnormal [facility] Welder/Fabricator [id number] [facility] GLUCOSE, POINT OF CARE 252 [facility] Interpretation and review of laboratory results Abnormal [facility] Welder/Fabricator [id number] [facility] GLUCOSE, POINT OF CARE 242 [facility] Interpretation and review of laboratory results Abnormal [facility] Welder/Fabricator [id number] [facility] GLUCOSE, POINT OF CARE 245 [facility] Interpretation and review of laboratory results Abnormal [facility] Welder/Fabricator [id number] [facility] GLUCOSE, POINT OF CARE 214 [facility] Interpretation and review of laboratory results Abnormal [facility] Welder/Fabricator [id number] [facility] GLUCOSE, POINT OF CARE 212 [facility] Interpretation and review of laboratory results Abnormal [facility] Welder/Fabricator [id number] [facility] GLUCOSE, POINT OF CARE 221 [facility] Interpretation and review of laboratory results Abnormal [facility] Welder/Fabricator [id number] [facility] KETONES (BLOOD)on 06-22-2022 Beta hydroxybutyrate [Moles/Vol] 2.66 [facility] Interpretation and review of laboratory results Abnormal [facility] MAGNESIUMon 06-22-2022 Magnesium [Mass/Vol] 1.9 mg/dL Normal 1.6-2.3 [facility] Magnesium [Mass/Vol] 1.9 mg/dL [facility] Magnesium [Mass/Vol] 2.0 mg/dL Normal 1.6-2.3 [facility] Comment on above: Performed By: #### A CBC #### Testing performed at [facility] [address] [place] [address] Magnesium [Mass/Vol] 2.0 mg/dL [facility] MRSA SCREENon 06-22-2022 MRSA DNA ESPERANZA+probe Ql (Unsp spec) Not detected Normal NOT DETECTED [facility] Comment on above: Performed By: #### M RSAST #### [place] [address] STAPH AUREUS SCREEN Detected Abnormal NOT DETECTED [facility] Comment on above: Result Comment: Test ing performed at [place] [address] Performed By: #### M RSAST #### [place] [address] No Panel Informationon 06-22 [facility] POCT GLUCOSEon 06-22-2022 Glucose [Mass/Vol] 190 mg/dL High 70-100 [facility] CONTOUR SANDER [id number] Normal [facility] Glucose [Mass/Vol] 323 mg/dL High 70-100 [facility] CONTOUR SANDER [id number] Normal [facility] Glucose [Mass/Vol] 340 mg/dL High 70-100 [facility] CONTOUR SANDER [id number] Normal [facility] Glucose [Mass/Vol] 214 mg/dL High 70-100 [facility] CONTOUR SANDER [id number] Normal [facility] Glucose [Mass/Vol] 213 mg/dL High 70-100 [facility] CONTOUR SANDER [id number] Normal [facility] Glucose [Mass/Vol] 230 mg/dL High 70-100 [facility] CONTOUR SANDER [id number] Normal [facility] Glucose [Mass/Vol] 234 mg/dL High 70-100 [facility] CONTOUR SANDER [id number] Normal [facility] Glucose [Mass/Vol] 252 mg/dL High 70-100 [facility] CONTOUR SANDER Normal [facility] Glucose [Mass/Vol] 242 mg/dL High 70-100 [facility] CONTOUR SANDER [id number] Normal [facility] Glucose [Mass/Vol] 245 mg/dL High 70-100 [facility] CONTOUR SANDER Normal [facility] Glucose [Mass/Vol] 214 mg/dL High 70-100 [facility] CONTOUR SANDER Normal [facility] Glucose [Mass/Vol] 212 mg/dL High 70-100 [facility] CONTOUR SANDER [id number] Normal [facility] Glucose [Mass/Vol] 221 mg/dL High 70-100 [facility] CONTOUR SANDER [id number] Normal [facility] Glucose [Mass/Vol] 192 mg/dL High 70-100 [facility] CONTOUR SANDER [id number] Normal [facility] Glucose [Mass/Vol] 175 mg/dL High 70-100 [facility] CONTOUR SANDER [id number] Normal [facility] RENAL FUNCTION PANELon 06-22 Albumin [Mass/Vol] 3.5 G/dl 3.5 - 5.0 G/dl [facility] Calcium [Mass/Vol] 8.9 mg/dL [facility] Chloride [Moles/Vol] 106 mmol/L [facility] Comment on above: Please note: Triglyc eride levels of 600mg/dL or higher may positively bias chloride results by approximately 2.1 mmol CO2 [Moles/Vol] 20 mmol/L Low [facility] Creatinine [Mass/Vol] 0.35 mg/dL Low [facility] GFR COMMENT Average GFR for 50-5 9 years old = 93. [facility] Comment on above: Chronic Kidney disea se, GFR = <60. Kidney failure, GFR = <15. The GFR estimate is not adjusted for extreme body surface area or acute process, nor has it been validated for women or ethnic groups other than and . GFR/1.73 sq M.predicted among blacks MDRD (S/P/Bld) [Vol rate/Area] 250 mL/min/{1.73_m2} ml/min/1.73 sq.m [facility] GFR/1.73 sq M.predicted among non-blacks MDRD (S/P/Bld) [Vol rate/Area] 206 mL/min/{1.73_m2} ml/min/1.73 sq.m [facility] Glucose post fast [Mass/Vol] 204 mg/dL High [facility] Comment on above: NORMAL <100 mg/dL PREDIABETES 101-126 mg/dL DIABETES 126 mg/dL or higher Interpretation and review of laboratory results Abnormal [facility] Phosphate [Mass/Vol] 2.0 mg/dL Low [facility] Potassium [Moles/Vol] 3.7 mmol/L [facility] Sodium [Moles/Vol] 135 mmol/L Low [facility] Urea nitrogen [Mass/Vol] 10 mg/dL [facility] Albumin [Mass/Vol] 3.3 G/dl Low 3.5 - 5.0 G/dl [facility] Calcium [Mass/Vol] 8.9 mg/dL [facility] Chloride [Moles/Vol] 106 mmol/L [facility] Comment on above: Please note: Triglyc eride levels of 600mg/dL or higher may positively bias chloride results by approximately 2.1 mmol CO2 [Moles/Vol] 17 mmol/L Critically low [facility] Comment on above: CALLED TO AND READ B ACK BY ALISON DOHERTY 06.22.22 @[address] [place] [address] Creatinine [Mass/Vol] 0.36 mg/dL Low [facility] GFR COMMENT Average GFR for 50-5 9 years old = 93. [facility] Comment on above: Chronic Kidney disea se, GFR = <60. Kidney failure, GFR = <15. The GFR estimate is not adjusted for extreme body surface area or acute process, nor has it been validated for women or ethnic groups other than and . GFR/1.73 sq M.predicted among blacks MDRD (S/P/Bld) [Vol rate/Area] 242 mL/min/{1.73_m2} ml/min/1.73 sq.m [facility] GFR/1.73 sq M.predicted among non-blacks MDRD (S/P/Bld) [Vol rate/Area] 200 mL/min/{1.73_m2} ml/min/1.73 sq.m [facility] Glucose post fast [Mass/Vol] 338 mg/dL High [facility] Comment on above: NORMAL <100 mg/dL PREDIABETES 101-126 mg/dL DIABETES 126 mg/dL or higher Interpretation and review of laboratory results Abnormal [facility] Phosphate [Mass/Vol] 2.2 mg/dL Low [facility] Potassium [Moles/Vol] 3.1 mmol/L Low [facility] Sodium [Moles/Vol] 134 mmol/L Low [facility] Urea nitrogen [Mass/Vol] 10 mg/dL [facility] Albumin [Mass/Vol] 3.4 G/dl Low 3.5 - 5.0 G/dl [facility] Calcium [Mass/Vol] 8.8 mg/dL [facility] Chloride [Moles/Vol] 108 mmol/L High [facility] Comment on above: Please note: Triglyc eride levels of 600mg/dL or higher may positively bias chloride results by approximately 2.1 mmol CO2 [Moles/Vol] 15 mmol/L Critically low [facility] Comment on above: CALLED TO AND READ B ACK BY ABBIE BEE IN ICU 06.22.2022 AT 05:58 TLA Creatinine [Mass/Vol] 0.37 mg/dL Low [facility] GFR COMMENT Average GFR for 50-5 9 years old = 93. [facility] Comment on above: Chronic Kidney disea se, GFR = <60. Kidney failure, GFR = <15. The GFR estimate is not adjusted for extreme body surface area or acute process, nor has it been validated for women or ethnic groups other than and . GFR/1.73 sq M.predicted among blacks MDRD (S/P/Bld) [Vol rate/Area] 234 mL/min/{1.73_m2} ml/min/1.73 sq.m [facility] GFR/1.73 sq M.predicted among non-blacks MDRD (S/P/Bld) [Vol rate/Area] 193 mL/min/{1.73_m2} ml/min/1.73 sq.m [facility] Glucose post fast [Mass/Vol] 254 mg/dL High [facility] Comment on above: NORMAL <100 mg/dL PREDIABETES 101-126 mg/dL DIABETES 126 mg/dL or higher Interpretation and review of laboratory results Abnormal [facility] Phosphate [Mass/Vol] 1.6 mg/dL Critically low [facility] Comment on above: CALLED TO AND READ B ACK BY ABBIE BEE IN ICU 06.22.2022 AT 05:58 TLA Potassium [Moles/Vol] 3.1 mmol/L Low [facility] Sodium [Moles/Vol] 135 mmol/L Low [facility] Urea nitrogen [Mass/Vol] 11 mg/dL [facility] Albumin [Mass/Vol] 3.4 G/dl Low 3.5 - 5.0 G/dl [facility] Calcium [Mass/Vol] 8.8 mg/dL [facility] Chloride [Moles/Vol] 111 mmol/L High [facility] Comment on above: Please note: Triglyc eride levels of 600mg/dL or higher may positively bias chloride results by approximately 2.1 mmol CO2 [Moles/Vol] 9 mmol/L Critically low [facility] Comment on above: CALLED TO AND READ B ACK BY KWAKU COCHRAN IN ICU 06.22.2022 AT 01:51 TLA Creatinine [Mass/Vol] 0.44 mg/dL Low [facility] GFR COMMENT Average GFR for 50-5 9 years old = 93. [facility] Comment on above: Chronic Kidney disea se, GFR = <60. Kidney failure, GFR = <15. The GFR estimate is not adjusted for extreme body surface area or acute process, nor has it been validated for women or ethnic groups other than and . GFR/1.73 sq M.predicted among blacks MDRD (S/P/Bld) [Vol rate/Area] 192 mL/min/{1.73_m2} ml/min/1.73 sq.m [facility] GFR/1.73 sq M.predicted among non-blacks MDRD (S/P/Bld) [Vol rate/Area] 158 mL/min/{1.73_m2} ml/min/1.73 sq.m [facility] Glucose post fast [Mass/Vol] 234 mg/dL High [facility] Comment on above: NORMAL <100 mg/dL PREDIABETES 101-126 mg/dL DIABETES 126 mg/dL or higher Interpretation and review of laboratory results Abnormal [facility] Phosphate [Mass/Vol] 1.7 mg/dL Critically low [facility] Comment on above: CALLED TO AND READ B ACK BY KWAKU COCHRAN IN ICU 06.22.2022 AT 01:50 TLA Potassium [Moles/Vol] 3.4 mmol/L Low [facility] Sodium [Moles/Vol] 135 mmol/L Low [facility] Urea nitrogen [Mass/Vol] 12 mg/dL [facility] RENAL PANEL,FASTINGon 2021 ALBUMIN 3.5 G/dl Normal 3.5-5.0 [facility] Calcium [Mass/Vol] 8.9 mg/dL Normal 8.4-10.2 [facility] Chloride [Moles/Vol] 106 mmol/L Normal 98-107 [facility] Comment on above: Result Comment: Sandip collins note: Triglyceride levels of 600mg/dL or higher may positively bias chloride results by approximately 2.1 mmol CO2 [Moles/Vol] 20 mmol/L Low 22-30 [facility] Creatinine [Mass/Vol] 0.35 mg/dL Low 0.7-1.2 [facility] EST. GFR, 250 ml/min/1.73sq.m [facility] EST. GFR,Non 206 ml/min/1.73sq.m [facility] GFR Information Average GFR for 50-5 9 years old = 93. Normal [facility] Comment on above: Result Comment: Academic Services Coordinator yaneth Kidney disease, GFR = <60. Kidney failure, GFR = <15. The GFR estimate is not adjusted for extreme body surface area or acute process, nor has it been validated for women or ethnic groups other than and . Glucose [Mass/Vol] 204 mg/dL High 70-100 [facility] Comment on above: Result Comment: NORMAL <100 mg/dL PREDIABETES 101-126 mg/dL DIABETES 126 mg/dL or higher PHOSPHOROUS 2.0 MG/DL Low 2.5-4.5 [facility] Potassium [Moles/Vol] 3.7 mmol/L Normal 3.5-5.1 [facility] Sodium [Moles/Vol] 135 mmol/L Low 137-145 [facility] Urea nitrogen [Mass/Vol] 10 mg/dL Normal 7-20 [facility] ALBUMIN 3.3 G/dl Low 3.5-5.0 [facility] Calcium [Mass/Vol] 8.9 mg/dL Normal 8.4-10.2 [facility] Chloride [Moles/Vol] 106 mmol/L Normal 98-107 [facility] Comment on above: Result Comment: Sandip collins note: Triglyceride levels of 600mg/dL or higher may positively bias chloride results by approximately 2.1 mmol CO2 [Moles/Vol] 17 mmol/L Critically low 22-30 [facility] Comment on above: Result Comment: CALL ED TO AND READ BACK BY ALISON DOHERTY 06.22.22 @[address] [place] [address] Creatinine [Mass/Vol] 0.36 mg/dL Low 0.7-1.2 [facility] EST. GFR, 242 ml/min/1.73sq.m Normal [facility] EST. GFR,Non 200 ml/min/1.73sq.m [facility] GFR Information Average GFR for 50-5 9 years old = 93. Normal [facility] Comment on above: Result Comment: Academic Services Coordinator yaneth Kidney disease, GFR = <60. Kidney failure, GFR = <15. The GFR estimate is not adjusted for extreme body surface area or acute process, nor has it been validated for women or ethnic groups other than and . Glucose [Mass/Vol] 338 mg/dL High 70-100 [facility] Comment on above: Result Comment: NORMAL <100 mg/dL PREDIABETES 101-126 mg/dL DIABETES 126 mg/dL or higher PHOSPHOROUS 2.2 MG/DL Low 2.5-4.5 [facility] Potassium [Moles/Vol] 3.1 mmol/L Low 3.5-5.1 [facility] Sodium [Moles/Vol] 134 mmol/L Low 137-145 [facility] Urea nitrogen [Mass/Vol] 10 mg/dL Normal 7-20 [facility] ALBUMIN 3.4 G/dl Low 3.5-5.0 [facility] Calcium [Mass/Vol] 8.8 mg/dL Normal 8.4-10.2 [facility] Chloride [Moles/Vol] 108 mmol/L High 98-107 [facility] Comment on above: Result Comment: Plebrendan collins note: Triglyceride levels of 600mg/dL or higher may positively bias chloride results by approximately 2.1 mmol CO2 [Moles/Vol] 15 mmol/L Critically low 22-30 [facility] Comment on above: Result Comment: CALL ED TO AND READ BACK BY ABBIE BEE IN ICU 06.22.2022 AT 05:58 TLA Creatinine [Mass/Vol] 0.37 mg/dL Low 0.7-1.2 [facility] EST. GFR, 234 ml/min/1.73sq.m Normal [facility] EST. GFR,Non 193 ml/min/1.73sq.m [facility] GFR Information Average GFR for 50-5 9 years old = 93. Normal [facility] Comment on above: Result Comment: Academic Services Coordinator yaneth Kidney disease, GFR = <60. Kidney failure, GFR = <15. The GFR estimate is not adjusted for extreme body surface area or acute process, nor has it been validated for women or ethnic groups other than and . Glucose [Mass/Vol] 254 mg/dL High 70-100 [facility] Comment on above: Result Comment: NORMAL <100 mg/dL PREDIABETES 101-126 mg/dL DIABETES 126 mg/dL or higher PHOSPHOROUS 1.6 MG/DL Critically low 2.5-4.5 [facility] Comment on above: Result Comment: CALL ED TO AND READ BACK BY ABBIE BEE IN ICU 06.22.2022 AT 05:58 TLA Potassium [Moles/Vol] 3.1 mmol/L Low 3.5-5.1 [facility] Sodium [Moles/Vol] 135 mmol/L Low 137-145 [facility] Urea nitrogen [Mass/Vol] 11 mg/dL Normal 7-20 [facility] CO2 [Moles/Vol] 9 mmol/L Critically low 22-30 [facility] Comment on above: Result Comment: CALL ED TO AND READ BACK BY KWAKU COCHRAN IN ICU 06.22.2022 AT 01:51 TLA Performed By: #### A CBC #### Testing performed at [address] [address] ALBUMIN 3.4 G/dl Low 3.5-5.0 [facility] Comment on above: Performed By: #### A CBC #### Testing performed at [address] [address] Calcium [Mass/Vol] 8.8 mg/dL Normal 8.4-10.2 [facility] Comment on above: Performed By: #### A CBC #### [place] [address] Chloride [Moles/Vol] 111 mmol/L High 98-107 [facility] Comment on above: Result Comment: Sandip collins note: Triglyceride levels of 600mg/dL or higher may positively bias chloride results by approximately 2.1 mmol Performed By: #### A CBC #### [place] [address] Creatinine [Mass/Vol] 0.44 mg/dL Low 0.7-1.2 [facility] Comment on above: Performed By: #### A CBC #### Testing performed at [address] [address] EST. GFR, 192 ml/min/1.73sq.m [facility] Comment on above: Performed By: #### A CBC #### Testing performed at [address] [address] EST. GFR,Non 158 ml/min/1.73sq.m [facility] Comment on above: Performed By: #### A CBC #### Testing performed at [place] [id number] GFR Information Average GFR for 50-5 9 years old = 93. [facility] Comment on above: Result Comment: Academic Services Coordinator yaneth Kidney disease, GFR = <60. Kidney failure, GFR = <15. The GFR estimate is not adjusted for extreme body surface area or acute process, nor has it been validated for women or ethnic groups other than and . Performed By: #### A CBC #### Testing performed at [place] [id number] Glucose [Mass/Vol] 234 mg/dL High 70-100 [facility] Comment on above: Result Comment: NORMAL <100 mg/dL PREDIABETES 101-126 mg/dL DIABETES 126 mg/dL or higher Performed By: #### A CBC #### Testing performed at [place] [id number] PHOSPHOROUS 1.7 MG/DL Critically low 2.5-4.5 [facility] Comment on above: Result Comment: CALL ED TO AND READ BACK BY KWAKU COCHRAN IN ICU 06.22.2022 AT 01:50 TLA Performed By: #### A CBC #### Testing performed at [place] [id number] Potassium [Moles/Vol] 3.4 mmol/L Low 3.5-5.1 [facility] Comment on above: Performed By: #### A CBC #### Testing performed at [place] [id number] Sodium [Moles/Vol] 135 mmol/L Low 137-145 [facility] Comment on above: Performed By: #### A CBC #### Testing performed at [place] [id number] Urea nitrogen [Mass/Vol] 12 mg/dL Normal 7-20 [facility] Comment on above: Performed By: #### A CBC #### Testing performed at [address] [address] SCREEN: MRSA ONLY, NARES (IS OLATION SCREEN)on 06-22-2022 Interpretation and review of laboratory results Abnormal [facility] MRSA isol Org specific cx Ql (Nose) Not detected NOT DETECTED [facility] STAPHYOCOCCUS AUREUS BY PCR Detected Abnormal NOT DETECTED [facility] Comment on above: Testing performed at [address] [facility] B HYDROXYBUTYRATEon 06-21-20 22 B HYDROXYBUTYRATE 9.44 MMOL/L High 0.02-0.27 [facility] BLOOD GAS VENOUSon 2 Base deficit (BldV) [Moles/Vol] 21.3 High [facility] Carboxyhemoglobin (Bld) [Mass fraction] 0.6 % [facility] CO2 (BldC) [Partial pressure] 21 Low [facility] HCO3 (Bld) [Moles/Vol] 6.5 mmol/L Low [facility] Hemoglobin (Bld) [Mass/Vol] 17.1 g/dL [facility] Interpretation and review of laboratory results Abnormal [facility] Methemoglobin (BldC) [Mass fraction] 0.0 % [facility] Oxygen (BldC) [Partial pressure] 39 [facility] Oxyhemoglobin (Bld) [Mass fraction] 68.0 % [facility] pH (BldC) 7.10 Critically low 7.31 - 7.41 [facility] Comment on above: CALLED TO AND READ B ACK BY Lonnie CHO 12.6.22 @[address] [place] [address] CBCon 06-21-2022 ABSOLUTE BAS 0.1 10*3/uL Normal 0.0-0.2 [facility] Comment on above: Performed By: #### A CBC #### [place] [address] ABSOLUTE EOS 0.0 10*3/uL Normal 0.0-0.7 [facility] Comment on above: Performed By: #### A CBC #### Testing performed at [place] [id number] ABSOLUTE NEUTROPHIL COUNT 9.1 10*3/uL High 1.4-6.5 [facility] Comment on above: Performed By: #### A CBC #### Testing performed at [place] [id number] Basophils/100 WBC (Bld) 0.7 % Normal 0.0-2.0 [facility] Comment on above: Performed By: #### A CBC #### Testing performed at [place] [address] [facility] [place] [address] DTYPE AUTO DIFF Normal [facility] Comment on above: Performed By: #### A CBC #### Testing performed at [place] [address] [facility] [place] [address] Eosinophils/100 WBC (Bld) 0.0 % Normal 0.0-11.0 [facility] Comment on above: Performed By: #### A CBC #### Testing performed at [address] [place] [address] Lymphocytes (Bld) [#/Vol] 1.1 10*3/uL Low 1.2-3.4 [facility] Comment on above: Performed By: #### A CBC #### Testing performed at [address] [place] [address] Lymphocytes/100 WBC (Bld) 9.8 % Low 20.0-55.0 [facility] Comment on above: Performed By: #### A CBC #### Testing performed at [address] [place] [address] Monocytes (Bld) [#/Vol] 0.6 10*3/uL Normal 0.0-0.7 [facility] Comment on above: Performed By: #### A CBC #### Testing performed at [address] [place] [address] Monocytes/100 WBC (Bld) 5.5 % Normal 0.0-10.0 [facility] Comment on above: Performed By: #### A CBC #### Testing performed at [address] [place] [address] Neutrophils/100 WBC (Bld) 84.0 % High 37.0-75.0 [facility] Comment on above: Performed By: #### A CBC #### Testing performed at [address] [place] [address] Erythrocyte distribution width (RBC) [Ratio] 14.4 % Normal 11.5-14.5 [facility] Comment on above: Performed By: #### A CBC #### Testing performed at [address] [address] Hematocrit (Bld) [Volume fraction] 52.8 % High 36.0-48.0 [facility] Comment on above: Performed By: #### A CBC #### Testing performed at [address] [address] Hemoglobin (Bld) [Mass/Vol] 17.3 g/dL High 12.0-16.0 [facility] Comment on above: Performed By: #### A CBC #### Testing performed at [address] [address] MCH (RBC) [Entitic mass] 29.4 pg Normal 26.0-35.0 [facility] Comment on above: Performed By: #### A CBC #### Testing performed at [address] [address] MCHC (RBC) [Mass/Vol] 32.8 g/dL Normal 27.0-37.0 [facility] Comment on above: Performed By: #### A CBC #### Testing performed at [address] [address] MCV (RBC) [Entitic vol] 89.7 fL Normal 80.0-100.0 [facility] Comment on above: Performed By: #### A CBC #### Testing performed at [address] [address] Platelet mean volume (Bld) [Entitic vol] 8.4 fL Normal 7.4-11.0 [facility] Comment on above: Performed By: #### A CBC #### Testing performed at [address] [address] Platelets (Bld) [#/Vol] 390 10*3/uL Normal 130.0-400.0 [facility] Comment on above: Performed By: #### A CBC #### Testing performed at [place] [address] [place] [address] RBC (Bld) [#/Vol] 5.88 10*6/uL High 4.0-5.4 [facility] Comment on above: Performed By: #### A CBC #### Testing performed at [place] [address] [place] [address] WBC (Bld) [#/Vol] 10.9 10*3/uL Normal 3.6-11.0 [facility] Comment on above: Performed By: #### A CBC #### Testing performed at [place] [address] [place] [address] CBC, EDIF, PLATELETon 2021 ABSOLUTE BASOPHIL COUNT 0.1 10*3/uL 0.0 - 0.2 10*3/uL [facility] Basophils/100 WBC (Bld) 0.7 % 0.0 - 2.0 % [facility] Differential cell count method Nom (Bld) AUTO DIFF % [facility] Eosinophils (Bld) [#/Vol] 0.0 10*3/uL 0.0 - 0.7 10*3/uL [facility] Eosinophils/100 WBC (Bld) 0.0 % 0.0 - 11.0 % [facility] Erythrocyte distribution width (RBC) [Ratio] 14.4 % 11.5 - 14.5 % [facility] Hematocrit (Bld) [Volume fraction] 52.8 % High 36.0 - 48.0 % [facility] Hemoglobin (Bld) [Mass/Vol] 17.3 g/dL High [facility] Interpretation and review of laboratory results Abnormal [facility] Lymphocytes (Bld) [#/Vol] 1.1 10*3/uL Low 1.2 - 3.4 10*3/uL [facility] Lymphocytes/100 WBC (Bld) 9.8 % Low 20.0 - 55.0 % [facility] MCH (RBC) [Entitic mass] 29.4 pg 26.0 - 35.0 PG [facility] MCHC (RBC) [Mass/Vol] 32.8 g/dL [facility] MCV (RBC) [Entitic vol] 89.7 fL [facility] Monocytes (Bld) [#/Vol] 0.6 10*3/uL 0.0 - 0.7 10*3/uL [facility] Monocytes/100 WBC (Bld) 5.5 % 0.0 - 10.0 % [facility] Neutrophils (Bld) [#/Vol] 9.1 10*3/uL High 1.4 - 6.5 10*3/uL [facility] Neutrophils/100 WBC (Bld) 84.0 % High 37.0 - 75.0 % [facility] Platelet mean volume (Bld) [Entitic vol] 8.4 fL [facility] Platelets (Bld) [#/Vol] 390 10*3/uL 130.0 - 400.0 10*3/uL [facility] RBC (Bld) [#/Vol] 5.88 10*6/uL High 4.0 - 5.4 10*6/uL [facility] WBC (Bld) [#/Vol] 10.9 10*3/uL 3.6 - 11.0 10*3/uL [facility] CMP FASTINGon 06-21-2022 A:G RATIO 1.1 RATIO Low 1.3-2.2 [facility] Comment on above: Performed By: #### A CBC #### Testing performed at [place] [address] [place] [address] ALBUMIN 4.8 G/dl Normal 3.5-5.0 [facility] Comment on above: Performed By: #### A CBC #### Testing performed at [place] [address] [place] [address] ALP [Catalytic activity/Vol] 175 U/L High 38-126 [facility] Comment on above: Performed By: #### A CBC #### Testing performed at [place] [address] [place] [address] ALT [Catalytic activity/Vol] 23 U/L Normal <35 [facility] Comment on above: Performed By: #### A CBC #### Testing performed at [address] [address] AST [Catalytic activity/Vol] 28 U/L Normal 14-36 [facility] Comment on above: Performed By: #### A CBC #### Testing performed at [address] [address] Bilirubin [Mass/Vol] 0.7 mg/dL Normal 0.2-1.3 [facility] Comment on above: Performed By: #### A CBC #### Testing performed at [address] [address] Calcium [Mass/Vol] 10.4 mg/dL High 8.4-10.2 [facility] Comment on above: Performed By: #### A CBC #### Testing performed at [address] [address] Chloride [Moles/Vol] 102 mmol/L Normal 98-107 [facility] Comment on above: Result Comment: Sandip collins note: Triglyceride levels of 600mg/dL or higher may positively bias chloride results by approximately 2.1 mmol Performed By: #### A CBC #### Testing performed at [address] [address] CO2 [Moles/Vol] mmol/L Critically low 22-30 [facility] Comment on above: Result Comment: CALL ED TO AND READ BACK BY Chiki FERRARI 12.6.22 @[address] [place] [address] Performed By: #### A CBC #### Testing performed at [address] [address] Creatinine [Mass/Vol] 0.72 mg/dL Normal 0.7-1.2 [facility] Comment on above: Performed By: #### A CBC #### Testing performed at [address] [address] EST. GFR, 109 ml/min/1.73sq.m Normal [facility] Comment on above: Performed By: #### A CBC #### Testing performed at [address] [address] EST. GFR,Non 90 ml/min/1.73sq.m Normal [facility] Comment on above: Performed By: #### A CBC #### Testing performed at [address] [address] GFR Information Average GFR for 50-5 9 years old = 93. Normal [facility] Comment on above: Result Comment: Academic Services Coordinator yaneth Kidney disease, GFR = <60. Kidney failure, GFR = <15. The GFR estimate is not adjusted for extreme body surface area or acute process, nor has it been validated for women or ethnic groups other than and . Performed By: #### A CBC #### Testing performed at [address] [address] Glucose [Mass/Vol] 428 mg/dL Critically high 70-100 [facility] Comment on above: Result Comment: NORMAL <100 mg/dL PREDIABETES 101-126 mg/dL DIABETES 126 mg/dL or higher CALLED TO AND READ BACK BY Chiki FERRARI 12.6.22 @[address] [place] [address] Performed By: #### A CBC #### Testing performed at [address] [address] Potassium [Moles/Vol] 4.7 mmol/L Normal 3.5-5.1 [facility] Comment on above: Performed By: #### A CBC #### Testing performed at [address] [address] Protein [Mass/Vol] 9.3 g/dL High 6.3-8.2 [facility] Comment on above: Performed By: #### A CBC #### Testing performed at [address] [address] Sodium [Moles/Vol] 131 mmol/L Low 137-145 [facility] Comment on above: Performed By: #### A CBC #### Testing performed at [address] [place] [address] Urea nitrogen [Mass/Vol] 15 mg/dL Normal 7-20 [facility] Comment on above: Performed By: #### A CBC #### Testing performed at [place] [id number] COMPREHENSIVE METABOLIC PANE Karthikeyan 06-21-2022 Albumin [Mass/Vol] 4.8 G/dl 3.5 - 5.0 G/dl [facility] Albumin/Globulin [Mass ratio] 1.1 {ratio} Low [facility] ALP [Catalytic activity/Vol] 175 U/L High [facility] ALT [Catalytic activity/Vol] 23 U/L NINF [facility] AST [Catalytic activity/Vol] 28 U/L [facility] Bilirubin [Mass/Vol] 0.7 mg/dL [facility] Calcium [Mass/Vol] 10.4 mg/dL High [facility] Chloride [Moles/Vol] 102 mmol/L [facility] Comment on above: Please note: Triglyc eride levels of 600mg/dL or higher may positively bias chloride results by approximately 2.1 mmol CO2 [Moles/Vol] Critically low [facility] Comment on above: CALLED TO AND READ B ACK BY Chiki FERRARI 12..22 @[address] [place] [address] Creatinine [Mass/Vol] 0.72 mg/dL [facility] GFR COMMENT Average GFR for 50-5 9 years old = 93. [facility] Comment on above: Chronic Kidney disea se, GFR = <60. Kidney failure, GFR = <15. The GFR estimate is not adjusted for extreme body surface area or acute process, nor has it been validated for women or ethnic groups other than and . GFR/1.73 sq M.predicted among blacks MDRD (S/P/Bld) [Vol rate/Area] 109 mL/min/{1.73_m2} ml/min/1.73 sq.m [facility] GFR/1.73 sq M.predicted among non-blacks MDRD (S/P/Bld) [Vol rate/Area] 90 mL/min/{1.73_m2} ml/min/1.73 sq.m [facility] Glucose post fast [Mass/Vol] 428 mg/dL Critically [facility] Comment on above: NORMAL <100 mg/dL PREDIABETES 101-126 mg/dL DIABETES 126 mg/dL or higher CALLED TO AND READ BACK BY Chiki FERRARI 12.6.22 @[address] [place] [address] Interpretation and review of laboratory results Abnormal [facility] Potassium [Moles/Vol] 4.7 mmol/L [facility] Protein [Mass/Vol] 9.3 g/dL High [facility] Sodium [Moles/Vol] 131 mmol/L Low [facility] Urea nitrogen [Mass/Vol] 15 mg/dL [facility] ECG (SCANNED)Ordered By: Laura Mcdonough on 06-21-2022 [facility] GLUCOSE (POC DEVICE)on 06-21 GLUCOSE, POINT OF CARE 192 [facility] Interpretation and review of laboratory results Abnormal [facility] Welder/Fabricator [id number] [facility] GLUCOSE, POINT OF CARE 175 [facility] Interpretation and review of laboratory results Abnormal [facility] Welder/Fabricator [id number] [facility] GLUCOSE, POINT OF CARE [address] [facility] Interpretation and review of laboratory results Abnormal [facility] Welder/Fabricator [id number] [facility] GLUCOSE, POINT OF CARE 280 [facility] Interpretation and review of laboratory results Abnormal [facility] Operator [id number] [facility] GLUCOSE, POINT OF CARE 393 [facility] Interpretation and review of laboratory results Abnormal [facility] Operator [id number] [facility] GLUCOSE, POINT OF CARE 400 [facility] Interpretation and review of laboratory results Abnormal [facility] Operator [id number] [facility] INFLUENZA A AND B, PCRon FLUAV and FLUBV Ag IF Nom (Unsp spec) Negative NEGATIVE [facility] FLUBV Ag IA Ql (Unsp spec) Negative NEGATIVE [facility] Comment on above: TESTING PERFORMED BY [facility] KETONES (BLOOD)on 06-21-2022 Beta hydroxybutyrate [Moles/Vol] 9.44 [facility] Interpretation and review of laboratory results Abnormal [facility] MAGNESIUMon 06-21-2022 Magnesium [Mass/Vol] 2.1 mg/dL Normal 1.6-2.3 [facility] Magnesium [Mass/Vol] 2.1 mg/dL [facility] NOVEL CORONAVIRUSon 06-21-20 22 NARRATIVE This test was perfor med using isothermal ESPERANZA and has been approved as Emergency Use Authorization (EUA) for the qualitative detection [id number] nucleic acid. Normal [facility] SARS-CoV-2 (COVID-19) RNA ESPERANZA+probe Ql (Unsp spec) Not detected Normal NOT DETECTED [facility] Comment on above: Result Comment: Nega tive [...] Use Authorization (EUA) for the qualitative detection [id number] nucleic acid. [facility] SARS-CoV-2 (COVID-19) RNA ESPERANZA+probe Ql (Unsp spec) Not detected NOT DETECTED [facility] Comment on above: Negative results do [...] patient is critically ill or clinically deteriorating. [facility] No Panel Informationon 06-21 [facility] POCT GLUCOSEon 06-21-2022 Glucose [Mass/Vol] 210 mg/dL High 70-100 [facility] CONTOUR SANDER Normal [facility] Glucose [Mass/Vol] 280 mg/dL High 70-100 [facility] CONTOUR SANDER [id number] Normal [facility] Glucose [Mass/Vol] 393 mg/dL High 70-100 [facility] CONTOUR SANDER [id number] Normal [facility] Glucose [Mass/Vol] 400 mg/dL High 70-100 [facility] CONTOUR SANDER [id number] Normal [facility] RAPID FLU Aon 06-21-2022 INFLUENZA A Negative Normal NEGATIVE [facility] INFLUENZA B Negative Normal NEGATIVE [facility] Comment on above: Result Comment: TEST ING PERFORMED BY [facility] RENAL FUNCTION PANELon 06-21 Albumin [Mass/Vol] 4.4 G/dl 3.5 - 5.0 G/dl [facility] Calcium [Mass/Vol] 9.7 mg/dL [facility] Chloride [Moles/Vol] 104 mmol/L [facility] Comment on above: Please note: Triglyc eride levels of 600mg/dL or higher may positively bias chloride results by approximately 2.1 mmol CO2 [Moles/Vol] Critically low [facility] Comment on above: CALLED TO AND READ B ACK BY ABBIE BEE IN ICU 06.21.2022 AT 19:52 TLA Creatinine [Mass/Vol] 0.66 mg/dL Low [facility] GFR COMMENT Average GFR for 50-5 9 years old = 93. [facility] Comment on above: Chronic Kidney disea se, GFR = <60. Kidney failure, GFR = <15. The GFR estimate is not adjusted for extreme body surface area or acute process, nor has it been validated for women or ethnic groups other than and . GFR/1.73 sq M.predicted among blacks MDRD (S/P/Bld) [Vol rate/Area] 120 mL/min/{1.73_m2} ml/min/1.73 sq.m [facility] GFR/1.73 sq M.predicted among non-blacks MDRD (S/P/Bld) [Vol rate/Area] 99 mL/min/{1.73_m2} ml/min/1.73 sq.m [facility] Glucose post fast [Mass/Vol] 369 mg/dL High [facility] Comment on above: NORMAL <100 mg/dL PREDIABETES 101-126 mg/dL DIABETES 126 mg/dL or higher Interpretation and review of laboratory results Abnormal [facility] Phosphate [Mass/Vol] 3.5 mg/dL [facility] Potassium [Moles/Vol] 4.2 mmol/L [facility] Sodium [Moles/Vol] 133 mmol/L Low [facility] Urea nitrogen [Mass/Vol] 16 mg/dL [facility] RENAL PANEL,FASTINGon 2021 ALBUMIN 4.4 G/dl Normal 3.5-5.0 [facility] Calcium [Mass/Vol] 9.7 mg/dL Normal 8.4-10.2 [facility] Chloride [Moles/Vol] 104 mmol/L Normal 98-107 [facility] Comment on above: Result Comment: Sandip collins note: Triglyceride levels of 600mg/dL or higher may positively bias chloride results by approximately 2.1 mmol CO2 [Moles/Vol] mmol/L Critically low 22-30 [facility] Comment on above: Result Comment: CALL ED TO AND READ BACK BY ABBIE BEE IN ICU 06.21.2022 AT 19:52 TLA Creatinine [Mass/Vol] 0.66 mg/dL Low 0.7-1.2 [facility] EST. GFR, 120 ml/min/1.73sq.m [facility] EST. GFR,Non 99 ml/min/1.73sq.m [facility] GFR Information Average GFR for 50-5 9 years old = 93. Normal [facility] Comment on above: Result Comment: Academic Services Coordinator yaneth Kidney disease, GFR = <60. Kidney failure, GFR = <15. The GFR estimate is not adjusted for extreme body surface area or acute process, nor has it been validated for women or ethnic groups other than and . Glucose [Mass/Vol] 369 mg/dL High 70-100 [facility] Comment on above: Result Comment: NORMAL <100 mg/dL PREDIABETES 101-126 mg/dL DIABETES 126 mg/dL or higher PHOSPHOROUS 3.5 MG/DL Normal 2.5-4.5 [facility] Potassium [Moles/Vol] 4.2 mmol/L Normal 3.5-5.1 [facility] Sodium [Moles/Vol] 133 mmol/L Low 137-145 [facility] Urea nitrogen [Mass/Vol] 16 mg/dL Normal 7-20 [facility] TROPONIN I, HIGH SENSITIVITY on 06-21-2022 TROPONIN I, HIGH SENSITIVITY 9 pg/mL Normal 0-12 [facility] Comment on above: Result Comment: Indeterminant: >12 to 100 pg/mL female >20 to 100 pg/mL male Indicative of myocardial injury. Serial sampling is recommended, a change of greater than or equal to 20 pg/mL is indicative of acute coronary syndrome. TROPONIN I, HIGH SENSITIVITY 9 pg/mL 0 - 12 pg/mL [facility] Comment on above: Indeterminant: >12 to 100 pg/mL female >20 to 100 pg/mL male Indicative of myocardial injury. Serial sampling is recommended, a change of greater than or equal to 20 pg/mL is indicative of acute coronary syndrome. [facility] URINALYSIS, MACROon 06-21-20 22 Bilirubin Ql (U) SMALL Abnormal NEGATIVE [facility] Clarity (U) CLEAR CLEAR [facility] Color (U) YELLOW YELLOW [facility] Glucose Test strip (U) [Mass/Vol] 500 mg/dl Abnormal NEGATIVE [facility] Hemoglobin Ql (U) SMALL Abnormal NEGATIVE [facility] Interpretation and review of laboratory results Abnormal [facility] Ketones (U) [Mass/Vol] mg/dL Abnormal NEGATIVE mg/dl [facility] Leukocyte esterase Test strip Ql (U) Negative NEGATIVE [facility] Nitrite Ql (U) Negative NEGATIVE [facility] pH (U) 5.5 [pH] 5.0 - 7.0 [facility] Protein Ql (U) 100 mg/dl Abnormal NEGATIVE [facility] Specific gravity (U) [Rel density] >1.030 High 1.010 - 1.025 [facility] Urobilinogen (U) [Mass/Vol] 0.2 mg/dL [facility] URINE MACROSCOPICon 06-21-20 22 Bilirubin Ql (U) SMALL Abnormal NEGATIVE [facility] Clarity (U) CLEAR Normal CLEAR [facility] Color (U) YELLOW Normal YELLOW [facility] Glucose Ql (U) 500 mg/dl Abnormal NEGATIVE [facility] pH (U) 5.5 [pH] Normal 5.0-7.0 [facility] Protein (U) [Mass/Vol] 100 mg/dL Abnormal NEGATIVE [facility] URINE HEMOGLOBIN SMALL Abnormal NEGATIVE [facility] URINE KETONE >160 Abnormal NEGATIVE [facility] URINE LEUKOTEST Negative Normal NEGATIVE [facility] URINE NITRATES Negative Normal NEGATIVE [facility] URINE SPEC GRAVITY >1.030 High 1.010-1.025 [facility] Urobilinogen Qn (U) 0.2 {Veernice'U}/dL Normal 0.2-1.0 [facility] URINE MICROSCOPICon 06-21-20 22 Bacteria LM.HPF (Urine sed) [#/Area] Negative Normal NEGATIVE [facility] CASTS NONE Normal NONE [facility] CRYSTAL NONE Normal NONE [facility] Epithelial cells LM Ql (Urine sed) 1 TO 5 Normal [facility] Mucus Ql (Urine sed) Negative Normal NEGATIVE [facility] URINE COMMENT CULTURE CRITERIA NOT MET, NO CULTURE PERFORMED. Normal [facility] URINE RBC'S 1 TO 5 Normal NEGATIVE [facility] URINE WBC'S 1 TO 5 Normal NEGATIVE [facility] Bacteria LM.HPF (Urine sed) [#/Area] Negative NEGATIVE [facility] Casts LM.LPF (Urine sed) [#/Area] NONE NONE /LPF [facility] Crystals LM Nom (Urine sed) NONE NONE [facility] Epithelial cells LM Ql (Urine sed) 1 TO 5 /HPF [facility] Mucus Ql (Urine sed) Negative NEGATIVE [facility] RBC LM.HPF (Urine sed) [#/Area] 1 TO 5 NEGATIVE /HPF [facility] Urine sediment comments LM Brian (Urine sed) CULTURE CRITERIA NOT MET, NO CULTURE PERFORMED. [facility] WBC LM.HPF (Urine sed) [#/Area] 1 TO 5 NEGATIVE /HPF [facility] VENOUS BLOOD GASon 2 BASE DEFICIT 21.3 mEq/L High 0-2 [facility] cHCO3 (P,ST)C 6.5 mEq/L Low 22-26 [facility] ctHb 17.1 g/dl Normal [facility] FCOHb 0.6 % Normal [facility] FMetHb 0.0 % Normal [facility] FO2Hb 68.0 % Normal [facility] pCO2, venous or cap 21 mmHg Low 41-51 [facility] pH,venous or cap 7.10 Critically low 7.31-7.41 [facility] Comment on above: Result Comment: CALL ED TO AND READ BACK BY Lonine CHO 12.6.22 @9667 [facility] pO2,venous or cap 39 mmHg Normal 35-42 [facility] sO2,venous or cap 68.4 % Normal 68-77 [facility] MD CONTINUOUS GLUCOSE MONITO RING ANALYSIS I&Henrique 04-07-2022 Manish Shea MD 04/07/2022 3:20 PM CGM download shows 0% of blood sugars at target range, 2% high, 98% very high, GMI = 12.1%. Hyperglycemia at all timeframes. Lowest blood sugars approximately 200 mg/dL. This CGM download, we discussed insulin therapy versus bariatric surgery. [facility] Manish Shea MD - 04/07/2022 2:15 PM EDT CGM download shows 0% of blood sugars at target range, 2% high, 98% very high, GMI = 12.1%. Hyperglycemia at all timeframes. Lowest blood sugars approximately 200 mg/dL. This CGM download, we discussed insulin therapy versus bariatric surgery. [facility] MD CONTINUOUS GLUCOSE MONITO RING ANALYSIS I&ROrdered By: Mayiln Stone on 04-07-2022 [facility] C-Peptideon 03-29-2022 C-Peptide 2.4 ng/mL 1.1 - 4.4 ng/mL [facility] CBC with Auto Differentialon 03-29-2022 [facility] Absolute Lymph # 1.40 [place] [facility] [facility] Absolute [place] # 0.40 [facility] Basophils (Bld) [#/Vol] 0.00 10*3/uL [facility] Basophils/100 WBC (Bld) 1 % 0 - 2 % [facility] Differential Type YES [facility] Eosinophils/100 WBC (Bld) 2 % 0 - 5 % [facility] Hematocrit (Bld) [Volume fraction] 44.7 % 36 - 46 % [facility] Hemoglobin (Bld) [Mass/Vol] 14.7 g/dL 12 - 16 g/dL [facility] Interpretation and review of laboratory results Abnormal [facility] Lymphocytes/100 WBC (Bld) 29 % 15 - 40 % [facility] MCH (RBC) [Entitic mass] 28.0 pg 26 - 34 pg [facility] MCHC (RBC) [Mass/Vol] 33.0 g/dL 31 - 3 7 g/dL [facility] MCV (RBC) [Entitic vol] 85.1 fL 80 - 100 fL [facility] Monocytes/100 WBC (Bld) 9 % High 4 - 8 % [facility] Platelet distribution width (Bld) [Ratio] 13.9 % 12.1 - 15.2 % [facility] Platelets (Bld) [#/Vol] 291 10*3/uL [facility] RBC (Bld) [#/Vol] 5.25 10*6/uL High 4 - 5.2 m/uL [facility] Segmented neutrophils/100 WBC (Bld) 59 % 47 - 75 % [facility] Segs Absolute 2.80 [facility] WBC (Bld) [#/Vol] 4.7 10*3/uL [facility] Comprehensive Metabolic Pane karthikeyan 03-29-2022 Albumin [Mass/Vol] 4.1 g/dL 3.5 - 5.2 g/dL [facility] ALP (Bld) [Catalytic activity/Vol] 87 U/L 35 - 104 U/L [facility] ALT [Catalytic activity/Vol] 44 U/L High 5 - 33 U/L [facility] Anion gap [Moles/Vol] 12 mmol/L 9 - 17 mmol/L [facility] AST [Catalytic activity/Vol] 23 U/L NINF - 32 U/L [facility] Bilirubin [Mass/Vol] 0.2 mg/dL Low 0.3 - 1 .2 mg/dL [facility] Calcium [Mass/Vol] 9.8 mg/dL 8.6 - 10. 4 mg/dL [facility] Chloride [Moles/Vol] 95 mmol/L Low 98 - 10 7 mmol/L [facility] CO2 [Moles/Vol] 29 mmol/L 20 - 31 mmol/L [facility] Creatinine [Mass/Vol] mg/dL Low 0.5 - 0.9 mg/dL [facility] Free PSA/Total PSA [Mass fraction] 6.9 g/dL 6.4 - 8.3 g/dL [facility] GFR Can not be calculated 60 - PINF mL/min [facility] GFR Non- Can not be calculated 60 - PINF mL/min [facility] GFR/1.73 sq M.predicted MDRD (S/P/Bld) [Vol rate/Area] [facility] Comment on above: Average GFR for 50-5 9 years old: 93 mL/min/1.73sq m Chronic Kidney Disease: <60 mL/min/1.73sq m Kidney failure: <15 mL/min/1.73sq m eGFR calculated using average adult body mass. Additional eGFR calculator available at: http://www.[employer].[place]/multiple_crcl_2012.htm Glucose [Mass/Vol] 383 mg/dL High 70 - 99 mg/dL [facility] Interpretation and review of laboratory results Abnormal [facility] Potassium [Moles/Vol] 4.9 mmol/L 3.7 - 5.3 mmol/L [facility] Sodium [Moles/Vol] 136 mmol/L 135 - 144 mmol/L [facility] Urea nitrogen (BldV) [Mass/Vol] 10 mg/dL 6 - 20 mg/dL [facility] Urea nitrogen/Creatinine (Bld) [Mass ratio] Result cannot be calculated, Creatinine below linear range. 9 - 20 [facility] Hemoglobin A1Con 03-29-2022 Glucose [Mass/Vol] 306 mg/dL [facility] Comment on above: The ADA and AACC rec ommend providing the estimated average glucose result to permit better patient understanding of their HBA1c result. HbA1c (Bld) [Mass fraction] 12.3 % High 4 - 6 % [facility] Interpretation and review of laboratory results Abnormal [facility] Insulin, totalon 03-29-2022 Insulin 7.9 mU/L [facility] Insulin Comment [facility]ST[facility] Insulin Reference Range: [facility] Comment on above: Fastin.6-24.9 30 min: 20-112 60 min: 29-88 90 min: 26-84 120 min: 22-79 LDL Cholesterol, Directon Cholesterol in LDL [Mass/Vol] 235 mg/dL High NINF - 100 mg/dL [facility] Interpretation and review of laboratory results Abnormal [facility] Lipid Panelon 03-29-2022 Cholesterol [Mass/Vol] 360 mg/dL High NINF - 200 mg/dL [facility] Comment on above: Cholesterol Guidelines: <200 Desirable 200-240 Borderline >240 Undesirable Cholesterol in HDL [Mass/Vol] 46 mg/dL 40 - PINF mg/dL [facility] Comment on above: HDL Guidelines: <40 Undesirable 40-59 Borderline >59 Desirable Cholesterol.total/Cho lesterol in HDL [Mass ratio] 7.8 {ratio} High NINF - 5 [facility] Interpretation and review of laboratory results Abnormal [facility] LDL Cholesterol 0 - 130 mg/dL [facility] Comment on above: Calculation not sonia d for Triglyceride value greater than 400 mg/dL. Direct LDL reflexed LDL Guidelines: <100 Desirable 100-129 Near to/above Desirable 130-159 Borderline >159 Undesirable Direct (measured) LDL and calculated LDL are not interchangeable tests. Triglyceride [Mass/Vol] 475 mg/dL High NINF - 150 mg/dL [facility] Comment on above: Triglyceride Guidelines: <150 Desirable 150-199 Borderline 200-499 High >499 Very high Based on AHA Guidelines for fasting triglyceride, April 2012. [facility] No Panel Informationon 03-29 [facility] Patient Fasting?on 2 Patient Fasting? YES [facility] MD CONTINUOUS GLUCOSE MONITO RING ANALYSIS I&Henrique 02-03-2022 Manish Shea MD 02/03/2022 4:05 PM CGM download her showing 0% of blood sugars at target range, 6% high, 94% very high, GMI = 11.3%, no hypoglycemia. There is hyperglycemia at all timeframes. Small response to medications last visit, we will increased doses of GLP-1 and sulfonylurea. Insulin therapy recommended, but declined by patient. [facility] MD CONTINUOUS GLUCOSE MONITO RING ANALYSIS I&Henrique 12-09-2021 Manish Shea MD 12/09/2021 3:17 PM CGM download shows 0% of blood sugars at target, 1% high, 99% very high. Based on CGM download, we need to intensify pharmacologic therapy. She is already on a low-carb diet. [facility] Manish Shea MD - 12/09/2021 2:30 PM EDT CGM download shows 0% of blood sugars at target, 1% high, 99% very high. Based on CGM download, we need to intensify pharmacologic therapy. She is already on a low-carb diet. [facility] MD CONTINUOUS GLUCOSE MONITO RING ANALYSIS I&ROrdered By: Maylin Stone on 12-09-2021 [facility] CBCon 08-11-2021 Hematocrit (Bld) [Volume fraction] 44.9 % 36 - 46 % [facility] Hemoglobin.gastrointe stinal spec 1 Ql (Stl) 15.0 g/dL 12.0 - 16.0 g/dL [facility] Interpretation and review of laboratory results Abnormal [facility] MCH (RBC) [Entitic mass] 28.4 pg 26 - 34 pg [facility] MCHC (RBC) [Mass/Vol] 33.5 g/dL 31 - 3 7 g/dL [facility] MCV (RBC) [Entitic vol] 84.9 fL 80 - 100 fL [facility] NRBC Automated NOT REPORTED per 100 WBC [facility] ealt Platelet distribution width (Bld) [Ratio] 12.9 % 12.1 - 15.2 % [facility] Platelet mean volume (Bld) [Entitic vol] NOT REPORTED 6.0 - 12.0 fL [facility] Platelets (Bld) [#/Vol] 369 10*3/uL [facility] RBC (Bld) [#/Vol] 5.29 10*6/uL High 4.0 - 5.2 m/uL [facility] WBC (Bld) [#/Vol] 5.6 10*3/uL [facility] Comprehensive Metabolic Pane karthikeyan 08-11-2021 Albumin [Mass/Vol] 4.1 g/dL 3.5 - 5.2 g/dL [facility] Albumin/Globulin Ratio NOT REPORTED [facility] ALP (Bld) [Catalytic activity/Vol] 102 U/L 35 - 104 U/L [facility] ALT [Catalytic activity/Vol] 24 U/L 5 - 33 U/L [facility] Anion gap [Moles/Vol] 14 mmol/L 9 - 17 mmol/L [facility] AST [Catalytic activity/Vol] 16 U/L <32 [facility] Bilirubin [Mass/Vol] 0.20 mg/dL Low 0.30 - 1.20 mg/dL [facility] Calcium [Mass/Vol] 9.6 mg/dL 8.6 - 10. 4 mg/dL [facility] Chloride [Moles/Vol] 97 mmol/L Low 98 - 10 7 mmol/L [facility] CO2 [Moles/Vol] 23 mmol/L 20 - 31 mmol/L [facility] Creatinine [Mass/Vol] mg/dL Low 0.50 - 0.90 mg/dL [facility] Free PSA/Total PSA [Mass fraction] 6.9 g/dL 6.4 - 8.3 g/dL [facility] GFR Can not be calculated >60 mL/min [facility] GFR Non- Can not be calculated >60 mL/min [facility] th GFR/1.73 sq M.predicted MDRD (S/P/Bld) [Vol rate/Area] [facility] Comment on above: Average GFR for 50-5 9 years old: 93 mL/min/1.73sq m Chronic Kidney Disease: <60 mL/min/1.73sq m Kidney failure: <15 mL/min/1.73sq m eGFR calculated using average adult body mass. Additional eGFR calculator available at: http://www.[employer]/multiple_crcl_2012.htm GFR/1.73 sq M.predicted MDRD (S/P/Bld) [Vol rate/Area] NOT REPORTED [employer] Glucose [Mass/Vol] 386 mg/dL Critically high 70 - 9 9 mg/dL [employer] Interpretation and review of laboratory results Abnormal [employer] Potassium [Moles/Vol] 4.5 mmol/L 3.7 - 5.3 mmol/L [employer] Sodium [Moles/Vol] 134 mmol/L Low 135 - 144 mmol/L [employer] Urea nitrogen (BldV) [Mass/Vol] 14 mg/dL 6 - 20 mg/dL [employer] Urea nitrogen/Creatinine (Bld) [Mass ratio] Result cannot be calculated, Creatinine below linear range. [employer] Microalbumin, Uron 2 Albumin/Creatinine DL <= 20 mg/L (24H U) [Mass ratio] 37 mg/L High <21 [employer] Albumin/Creatinine DL <= 20 mg/L (U) [Ratio] 30 High <25 mcg/mg creat [employer] Creatinine [Mass/Vol] 124.8 mg/dL 28.0 - 217.0 mg/dL [employer] Interpretation and review of laboratory results Abnormal [facility] [employer] Patient Fasting?on 2 Patient Fasting? yes [facility] Jesus alth [employer] Basic Metabolic PanelOrdered By: Roverto Barbour on 04-16-2021 Anion gap [Moles/Vol] 10 mmol/L 9 - 17 mmol/L [employer] Work Phone: Calcium [Mass/Vol] 9.4 mg/dL 8.6 - 10. 4 mg/dL [employer] Work Phone: Chloride [Moles/Vol] 103 mmol/L 98 - 10 7 mmol/L [employer] Work Phone: CO2 [Moles/Vol] 25 mmol/L 20 - 31 mmol/L [employer] Work Phone: Creatinine [Mass/Vol] 0.44 mg/dL Low 0.50 - 0.90 mg/dL [employer] Phone: GFR >60 >60 mL/min [employer] Phone: GFR Non- >60 >60 mL/min [employer] Phone: GFR/1.73 sq M.predicted MDRD (S/P/Bld) [Vol rate/Area] [employer] Phone: Comment on above: Average GFR for 50-5 9 years old: 93 mL/min/1.73sq m Chronic Kidney Disease: <60 mL/min/1.73sq m Kidney failure: <15 mL/min/1.73sq m eGFR calculated using average adult body mass. Additional eGFR calculator available at: http://www.[employer]/multiple_crcl_2012.htm GFR/1.73 sq M.predicted MDRD (S/P/Bld) [Vol rate/Area] NOT REPORTED [employer] Phone: Glucose [Mass/Vol] 303 mg/dL High 70 - 99 mg/dL [employer] Phone: Interpretation and review of laboratory results Abnormal [employer] Phone: Potassium [Moles/Vol] 3.5 mmol/L Low 3.7 - 5.3 mmol/L [employer] Phone: Sodium [Moles/Vol] 138 mmol/L 135 - 144 mmol/L [employer] Phone: Urea nitrogen (BldV) [Mass/Vol] 8 mg/dL 6 - 20 mg/dL [employer] Phone: Urea nitrogen/Creatinine (Bld) [Mass ratio] 18 [employer] Phone: [employer] Phone: Glucose, Whole BloodOrdered By: Roverto Barbour on 04-16-2021 Glucose [Mass/Vol] 221 mg/dL High 65 - 99 mg/dL [employer] Phone: Interpretation and review of laboratory results Abnormal [employer] Phone: [employer] Phone: Basic Metabolic PanelOrdered By: Roverto Barbour on 04-15-2021 Anion gap [Moles/Vol] 10 mmol/L 9 - 17 mmol/L [employer] Phone: Calcium [Mass/Vol] 9.3 mg/dL 8.6 - 10. 4 mg/dL [employer] Phone: Chloride [Moles/Vol] 106 mmol/L 98 - 10 7 mmol/L [employer] Phone: CO2 [Moles/Vol] 19 mmol/L Low 20 - 31 mmol/L [employer] Phone: Creatinine [Mass/Vol] 0.45 mg/dL Low 0.50 - 0.90 mg/dL [employer] Phone: GFR >60 >60 mL/min [employer] Phone: GFR Non- >60 >60 mL/min [employer] Phone: GFR/1.73 sq M.predicted MDRD (S/P/Bld) [Vol rate/Area] [employer] Phone: Comment on above: Average GFR for 50-5 9 years old: 93 mL/min/1.73sq m Chronic Kidney Disease: <60 mL/min/1.73sq m Kidney failure: <15 mL/min/1.73sq m eGFR calculated using average adult body mass. Additional eGFR calculator available at: http://www.[employer]/multiple_crcl_2012.htm GFR/1.73 sq M.predicted MDRD (S/P/Bld) [Vol rate/Area] NOT REPORTED [employer] Phone: Glucose [Mass/Vol] 261 mg/dL High 70 - 99 mg/dL [employer] Phone: Potassium [Moles/Vol] 3.4 mmol/L Low 3.7 - 5.3 mmol/L [employer] Phone: Sodium [Moles/Vol] 135 mmol/L 135 - 144 mmol/L [employer] Phone: Urea nitrogen (BldV) [Mass/Vol] 7 mg/dL 6 - 20 mg/dL [employer] Phone: Urea nitrogen/Creatinine (Bld) [Mass ratio] 16 [employer] Phone: Beta-HydroxybuterateOrdered By: Roverto Barbour on 04-15-2021 Beta-Hydroxybutyrate 1.45 mmol/L High 0.02 - 0.27 mmol/L [employer] Phone: ECHO Complete 2D W Doppler W ColorOrdered By: Roverto Barbour on 04-15-2021 [facility] Transthoracic Echocardiography Report (TTE) Patient Name CARLOS BRENNAN Date of Study 04/14/2021 L Date of 1970 Gender Female Age 51 year(s) Race Room Number 0263 Height: 65 inch, 165.1 cm Corporate ID [id number] Weight: 177 pounds, 80.3 kg # Patient Acct [id number] BSA: 1.88 m^2 BMI: 29.46 kg/m^2 # MR # [id number] Manager [employer] Services Debra Steiner, RT Interpreting Physician Jori Rodriguez Fellow Referring Nurse Practitioner Interpreting Referring Physician Roverto Barbour Type of Study TTE procedure:2D Echocardiogram, M-Mode, Doppler, Color Doppler. Procedure Date Date: 04/14/2021 Start: 08:44 AM Study Location: [facility] Indications:Heart murmur and Abnormal ECG. Patient [...] Peak Gradient: 5.6 mmHg Peak TR Gradient: 26.99680 mmHg Estimated RA Pressure: 5 mmHg Estimated PASP: 31.72 mmHg Diastology / Tissue Doppler Septal Wall E' velocity:0.06 m/s Lateral Wall E' velocity:0.06 m/s Lateral Wall E/E':14.77 [employer] Work Phone: Temo, pn Incoming Cardio Results From Cpa/Ge - 04/15/2021 6:13 AM EDT [facility] Transthoracic Echocardiography Report (TTE) Patient Name CARLOS BRENNAN Date of Study 04/14/2021 L Date of 1970 Gender Female Age 51 year(s) Race Room Number 0263 Height: 65 inch, 165.1 cm Corporate ID [id number] Weight: 177 pounds, 80.3 kg # Patient Acct [id number] BSA: 1.88 m^2 BMI: 29.46 kg/m^2 # MR # [id number] Manager [employer] Services Debra Steiner, RT Interpreting Physician Jori Rodriguez Fellow Referring Nurse Practitioner Interpreting Referring Physician Roverto Barbour Type of Study TTE procedure:2D Echocardiogram, M-Mode, Doppler, Color Doppler. Procedure Date Date: 04/14/2021 Start: 08:44 AM Study Location: [facility] Indications:Heart murmur and Abnormal ECG. Patient [...] Signature --- - Electronically signed by AKOSUA Doty)Marko)(CT)([facility])(Sonog rapher) on 04/14/2021 09:29 AM --- - [...] Peak Gradient: 5.6 mmHg Peak TR Gradient: 26.52681 mmHg Estimated RA Pressure: 5 mmHg Estimated PASP: 31.72 mmHg Diastology / Tissue Doppler Septal Wall E' velocity:0.06 m/s Lateral Wall E' velocity:0.06 m/s Lateral Wall E/E':14.77 [employer] Phone: [employer] Phone: Glucose, Whole BloodOrdered By: Roverto Barbour on 04-15-2021 Glucose [Mass/Vol] 309 mg/dL High 65 - 99 mg/dL [employer] Phone: Interpretation and review of laboratory results Abnormal [employer] Phone: [employer] Phone: Glucose [Mass/Vol] 247 mg/dL High 65 - 99 mg/dL [employer] Phone: Interpretation and review of laboratory results Abnormal [employer] Phone: [employer] Phone: Glucose [Mass/Vol] 262 mg/dL High 65 - 99 mg/dL [employer] Phone: Interpretation and review of laboratory results Abnormal [employer] Phone: [employer] Phone: Glucose [Mass/Vol] 306 mg/dL High 65 - 99 mg/dL [employer] Phone: Interpretation and review of laboratory results Abnormal [employer] Phone: [employer] Phone: Hemoglobin [id number] By: Juan Jose Barbour on 04-15-2021 Glucose [Mass/Vol] 395 mg/dL [employer] Phone: Comment on above: The ADA and AACC rec ommend providing the estimated average glucose result to permit better patient understanding of their HBA1c result. HbA1c (Bld) [Mass fraction] 15.4 % High 4.0 - 6.0 % [employer] Phone: Interpretation and review of laboratory results Abnormal [employer] Phone: [employer] Phone: MagnesiumOrdered By: Roverto dozier on 04-15-2021 Magnesium [Mass/Vol] 1.8 mg/dL 1.6 - 2 .6 mg/dL [employer] Phone: No Panel InformationOrdered By: Roverto Back on 04-15-2021 Interpretation and review of laboratory results Abnormal [employer] Phone: [employer] Phone: PhosphorusOrdered By: Roverto Back on 04-15-2021 Phosphate [Mass/Vol] 2.4 mg/dL Low 2.6 - 4 .5 mg/dL [employer] Phone: Basic Metabolic PanelOrdered By: Roverto Barbour on 04-14-2021 Anion gap [Moles/Vol] 11 mmol/L 9 - 17 mmol/L [employer] Phone: Calcium [Mass/Vol] 9.2 mg/dL 8.6 - 10. 4 mg/dL [employer] Phone: Chloride [Moles/Vol] 104 mmol/L 98 - 10 7 mmol/L [employer] Phone: CO2 [Moles/Vol] 17 mmol/L Low 20 - 31 mmol/L [employer] Phone: Creatinine [Mass/Vol] 0.53 mg/dL 0.50 - 0.90 mg/dL [employer] Phone: GFR >60 >60 mL/min [employer] Phone: GFR Non- >60 >60 mL/min [employer] Phone: GFR/1.73 sq M.predicted MDRD (S/P/Bld) [Vol rate/Area] [employer] Phone: Comment on above: Average GFR for 50-5 9 years old: 93 mL/min/1.73sq m Chronic Kidney Disease: <60 mL/min/1.73sq m Kidney failure: <15 mL/min/1.73sq m eGFR calculated using average adult body mass. Additional eGFR calculator available at: http://www.[employer].com/multiple_crcl_2012.htm GFR/1.73 sq M.predicted MDRD (S/P/Bld) [Vol rate/Area] NOT REPORTED [employer] Phone: Glucose [Mass/Vol] 243 mg/dL High 70 - 99 mg/dL [employer] Phone: Potassium [Moles/Vol] 3.2 mmol/L Low 3.7 - 5.3 mmol/L [employer] Phone: Sodium [Moles/Vol] 132 mmol/L Low 135 - 144 mmol/L [employer] Phone: Urea nitrogen (BldV) [Mass/Vol] 9 mg/dL 6 - 20 mg/dL [employer] Phone: Urea nitrogen/Creatinine (Bld) [Mass ratio] 17 [employer] Phone: Anion gap [Moles/Vol] 12 mmol/L 9 - 17 mmol/L [employer] Phone: Calcium [Mass/Vol] 9.8 mg/dL 8.6 - 10. 4 mg/dL [employer] Phone: Chloride [Moles/Vol] 103 mmol/L 98 - 10 7 mmol/L [employer] Phone: CO2 [Moles/Vol] 17 mmol/L Low 20 - 31 mmol/L [employer] Phone: Creatinine [Mass/Vol] 0.61 mg/dL 0.50 - 0.90 mg/dL [employer] Phone: GFR >60 >60 mL/min [employer] Phone: GFR Non- >60 >60 mL/min [employer] Phone: GFR/1.73 sq M.predicted MDRD (S/P/Bld) [Vol rate/Area] [employer] Phone: Comment on above: Average GFR for 50-5 9 years old: 93 mL/min/1.73sq m Chronic Kidney Disease: <60 mL/min/1.73sq m Kidney failure: <15 mL/min/1.73sq m eGFR calculated using average adult body mass. Additional eGFR calculator available at: http://www.[employer]/multiple_crcl_2012.htm GFR/1.73 sq M.predicted MDRD (S/P/Bld) [Vol rate/Area] NOT REPORTED [employer] Phone: Glucose [Mass/Vol] 158 mg/dL High 70 - 99 mg/dL [employer] Phone: Potassium [Moles/Vol] 3.2 mmol/L Low 3.7 - 5.3 mmol/L [employer] Phone: Sodium [Moles/Vol] 132 mmol/L Low 135 - 144 mmol/L [employer] Phone: Urea nitrogen (BldV) [Mass/Vol] 12 mg/dL 6 - 20 mg/dL [employer] Phone: Urea nitrogen/Creatinine (Bld) [Mass ratio] 20 [employer] Phone: Anion gap [Moles/Vol] 10 mmol/L 9 - 17 mmol/L [employer] Phone: Calcium [Mass/Vol] 9.0 mg/dL 8.6 - 10. 4 mg/dL [employer] Phone: Chloride [Moles/Vol] 105 mmol/L 98 - 10 7 mmol/L [employer] Phone: CO2 [Moles/Vol] 17 mmol/L Low 20 - 31 mmol/L [employer] Phone: Creatinine [Mass/Vol] 0.6 mg/dL 0.50 - 0.90 mg/dL [employer] Phone: GFR >60 >60 mL/min [employer] Phone: GFR Non- >60 >60 mL/min [employer] Phone: GFR/1.73 sq M.predicted MDRD (S/P/Bld) [Vol rate/Area] [employer] Phone: Comment on above: Average GFR for 50-5 9 years old: 93 mL/min/1.73sq m Chronic Kidney Disease: <60 mL/min/1.73sq m Kidney failure: <15 mL/min/1.73sq m eGFR calculated using average adult body mass. Additional eGFR calculator available at: http://www.[employer]/multiple_crcl_2012.htm GFR/1.73 sq M.predicted MDRD (S/P/Bld) [Vol rate/Area] NOT REPORTED [employer] Phone: Glucose [Mass/Vol] 254 mg/dL High 70 - 99 mg/dL [employer] Phone: Potassium [Moles/Vol] 2.9 mmol/L Critically low 3.7 - 5.3 mmol/L [employer] Phone: Sodium [Moles/Vol] 132 mmol/L Low 135 - 144 mmol/L [employer] Phone: Urea nitrogen (BldV) [Mass/Vol] 10 mg/dL 6 - 20 mg/dL [employer] Phone: Urea nitrogen/Creatinine (Bld) [Mass ratio] 17 [employer] Phone: Anion gap [Moles/Vol] 11 mmol/L 9 - 17 mmol/L [employer] Phone: Calcium [Mass/Vol] 8.8 mg/dL 8.6 - 10. 4 mg/dL [employer] Phone: Chloride [Moles/Vol] 105 mmol/L 98 - 10 7 mmol/L [employer] Phone: CO2 [Moles/Vol] 16 mmol/L Low 20 - 31 mmol/L [employer] Phone: Creatinine [Mass/Vol] 0.51 mg/dL 0.50 - 0.90 mg/dL [employer] Phone: GFR >60 >60 mL/min [employer] Phone: GFR Non- >60 >60 mL/min [employer] Phone: GFR/1.73 sq M.predicted MDRD (S/P/Bld) [Vol rate/Area] [employer] Phone: Comment on above: Average GFR for 50-5 9 years old: 93 mL/min/1.73sq m Chronic Kidney Disease: <60 mL/min/1.73sq m Kidney failure: <15 mL/min/1.73sq m eGFR calculated using average adult body mass. Additional eGFR calculator available at: http://www.[employer]/multiple_crcl_2012.htm GFR/1.73 sq M.predicted MDRD (S/P/Bld) [Vol rate/Area] NOT REPORTED [employer] Phone: Glucose [Mass/Vol] 215 mg/dL High 70 - 99 mg/dL [employer] Phone: Potassium [Moles/Vol] 3.2 mmol/L Low 3.7 - 5.3 mmol/L [employer] Phone: Sodium [Moles/Vol] 132 mmol/L Low 135 - 144 mmol/L [employer] Phone: Urea nitrogen (BldV) [Mass/Vol] 11 mg/dL 6 - 20 mg/dL [employer] Phone: Urea nitrogen/Creatinine (Bld) [Mass ratio] 22 High [employer] Phone: Anion gap [Moles/Vol] 17 mmol/L 9 - 17 mmol/L [employer] Phone: Calcium [Mass/Vol] 8.9 mg/dL 8.6 - 10. 4 mg/dL [employer] Phone: Chloride [Moles/Vol] 105 mmol/L 98 - 10 7 mmol/L [employer] Phone: CO2 [Moles/Vol] 11 mmol/L Low 20 - 31 mmol/L [employer] Phone: Creatinine [Mass/Vol] 0.56 mg/dL 0.50 - 0.90 mg/dL [employer] Phone: GFR >60 >60 mL/min [employer] Phone: GFR Non- >60 >60 mL/min [employer] Phone: GFR/1.73 sq M.predicted MDRD (S/P/Bld) [Vol rate/Area] [employer] Phone: Comment on above: Average GFR for 50-5 9 years old: 93 mL/min/1.73sq m Chronic Kidney Disease: <60 mL/min/1.73sq m Kidney failure: <15 mL/min/1.73sq m eGFR calculated using average adult body mass. Additional eGFR calculator available at: http://www.[employer]/multiple_crcl_2012.htm GFR/1.73 sq M.predicted MDRD (S/P/Bld) [Vol rate/Area] NOT REPORTED [employer] Phone: Glucose [Mass/Vol] 207 mg/dL High 70 - 99 mg/dL [employer] Phone: Potassium [Moles/Vol] 3.2 mmol/L Low 3.7 - 5.3 mmol/L [employer] Phone: Sodium [Moles/Vol] 133 mmol/L Low 135 - 144 mmol/L [employer] Phone: Urea nitrogen (BldV) [Mass/Vol] 13 mg/dL 6 - 20 mg/dL [employer] Phone: Urea nitrogen/Creatinine (Bld) [Mass ratio] 23 High [employer] Phone: Beta-HydroxybuterateOrdered By: Roverto Barbour on 04-14-2021 Beta-Hydroxybutyrate 1.58 mmol/L High 0.02 - 0.27 mmol/L [employer] Phone: Beta-HydroxybutyrateOrdered By: Roverto Back on 04-14-2021 Beta-Hydroxybutyrate 0.64 mmol/L High 0.02 - 0.27 mmol/L [facility] Work Phone: Beta-Hydroxybutyrate 1.21 mmol/L High 0.02 - 0.27 mmol/L [facility] Work Phone: Interpretation and review of laboratory results Abnormal [facility] Work Phone: [facility] Work Phone: CBC auto differentialOrdered By: Roverto Back on 04-14-2021 Absolute Eos # 0.00 [facility] Work Phone: Absolute Immature Granulocyte NOT REPORTED [facility] Work Phone: Absolute Lymph # 1.40 [facility] He [facility] Work Phone: Absolute [place] # 1.10 High [facility] Work Phone: Basophils (Bld) [#/Vol] 0.00 10*3/uL [facility] Work Phone: Basophils/100 WBC (Bld) 0 % 0 - 2 % [facility] Work Phone: Differential Type YES [facility] Work Phone: Eosinophils/100 WBC (Bld) 0 % 0 - 5 % [facility] Work Phone: Hematocrit (Bld) [Volume fraction] 39.6 % 36 - 46 % [facility] Work Phone: Hemoglobin.gastrointe stinal spec 1 Ql (Stl) 13.6 g/dL 12.0 - 16.0 g/dL [facility] Work Phone: Immature Granulocytes NOT REPORTED 0 % M [facility] [employer] Work Phone: Interpretation and review of laboratory results Abnormal [facility] Work Phone: Lymphocytes/100 WBC (Bld) 18 % 15 - 40 % [employer] Work Phone: MCH (RBC) [Entitic mass] 30.4 pg 26 - 34 pg [employer] Work Phone: MCHC (RBC) [Mass/Vol] 34.4 g/dL 31 - 3 7 g/dL [employer] Work Phone: MCV (RBC) [Entitic vol] 88.4 fL 80 - 100 fL [employer] Work Phone: Monocytes/100 WBC (Bld) 13 % High 4 - 8 % [employer] Work Phone: NRBC Automated NOT REPORTED per 100 WBC [employer] Work Phone: Platelet distribution width (Bld) [Ratio] 13.4 % 12.1 - 15.2 % [employer] Phone: Platelet Estimate NOT REPORTED [employer] Phone: Platelet mean volume (Bld) [Entitic vol] NOT REPORTED 6.0 - 12.0 fL [employer] Phone: Platelets (Bld) [#/Vol] 285 10*3/uL [employer] Phone: RBC (Bld) [#/Vol] 4.48 10*6/uL 4.0 - 5.2 m/uL [employer] Work Phone: RBC (Bld) [#/Vol] NOT REPORTED [employer] Work Phone: Segmented neutrophils/100 WBC (Bld) 69 % 47 - 75 % [employer] Work Phone: Segs Absolute 5.70 [employer] Work Phone: WBC (Bld) [#/Vol] 8.2 10*3/uL [employer] Work Phone: WBC (Bld) [#/Vol] NOT REPORTED [employer] Work Phone: [employer] Work Phone: EKG 12 LeadOrdered By: Reji Rondon on 04-14-2021 Atrial Rate 132 BPM [employer] Work Phone: P [place] 77 degrees [employer] Work Phone: P-R Interval 150 ms [employer] Work Phone: Q-T Interval 282 ms [employer] Work Phone: QRS Duration 66 ms [employer] Work Phone: QTc Calculation (Bazett) 417 ms [employer] Work Phone: R [place] 73 degrees [employer] Work Phone: T [place] 119 degrees [employer] Work Phone: Ventricular Rate 132 BPM [employer] Work Phone: Sinus tachycardia Possible Left atrial enlargement Anteroseptal infarct , age undetermined T wave abnormality, consider inferior ischemia Abnormal ECG [employer] Phone: Temo, Mhpn Incoming E kg Results From [employer] - 04/14/2021 6:49 AM EDT Sinus tachycardia Possible Left atrial enlargement Anteroseptal infarct , age undetermined T wave abnormality, consider inferior ischemia Abnormal ECG [employer] Phone: [employer] Phone: Glucose, Whole BloodOrdered By: Roverto Barbour on 04-14-2021 Glucose [Mass/Vol] 219 mg/dL High 65 - 99 mg/dL [employer] Phone: Glucose [Mass/Vol] 161 mg/dL High 65 - 99 mg/dL [employer] Phone: Glucose [Mass/Vol] 211 mg/dL High 65 - 99 mg/dL [employer] Phone: Interpretation and review of laboratory results Abnormal [employer] Phone: [employer] Work Phone: Glucose [Mass/Vol] 212 mg/dL High 65 - 99 mg/dL [employer] Work Phone: Interpretation and review of laboratory results Abnormal [employer] Work Phone: [employer] Work Phone: Glucose [Mass/Vol] 221 mg/dL High 65 - 99 mg/dL [employer] Work Phone: Interpretation and review of laboratory results Abnormal [employer] Work Phone: [employer] Work Phone: Glucose [Mass/Vol] 172 mg/dL High 65 - 99 mg/dL [employer] Phone: Interpretation and review of laboratory results Abnormal [employer] Work Phone: [employer] Work Phone: Glucose [Mass/Vol] 176 mg/dL High 65 - 99 mg/dL [employer] Work Phone: Interpretation and review of laboratory results Abnormal [employer] Phone: [employer] Work Phone: Glucose [Mass/Vol] 152 mg/dL High 65 - 99 mg/dL [employer] Phone: Interpretation and review of laboratory results Abnormal [employer] Work Phone: [employer] Work Phone: Glucose [Mass/Vol] 106 mg/dL High 65 - 99 mg/dL [employer] Work Phone: Interpretation and review of laboratory results Abnormal [employer] Work Phone: [employer] Work Phone: Glucose [Mass/Vol] 157 mg/dL High 65 - 99 mg/dL [employer] Work Phone: Interpretation and review of laboratory results Abnormal [employer] Work Phone: [employer] Work Phone: Glucose [Mass/Vol] 253 mg/dL High 65 - 99 mg/dL [employer] Work Phone: Interpretation and review of laboratory results Abnormal [employer] Work Phone: [employer] Work Phone: Glucose [Mass/Vol] 237 mg/dL High 65 - 99 mg/dL [employer] Work Phone: Interpretation and review of laboratory results Abnormal [employer] Work Phone: [employer] Work Phone: Glucose [Mass/Vol] 173 mg/dL High 65 - 99 mg/dL [employer] Phone: Interpretation and review of laboratory results Abnormal [employer] Work Phone: [employer] Work Phone: Glucose [Mass/Vol] 187 mg/dL High 65 - 99 mg/dL [employer] Work Phone: Interpretation and review of laboratory results Abnormal [employer] Work Phone: [employer] Work Phone: Glucose [Mass/Vol] 211 mg/dL High 65 - 99 mg/dL [employer] Phone: Interpretation and review of laboratory results Abnormal [employer] Work Phone: [employer] Work Phone: Glucose [Mass/Vol] 203 mg/dL High 65 - 99 mg/dL [employer] Work Phone: Interpretation and review of laboratory results Abnormal [employer] Work Phone: [employer] Work Phone: Glucose [Mass/Vol] 205 mg/dL High 65 - 99 mg/dL [employer] Work Phone: Interpretation and review of laboratory results Abnormal [employer] Phone: [employer] Phone: Glucose [Mass/Vol] 168 mg/dL High 65 - 99 mg/dL [employer] Phone: Interpretation and review of laboratory results Abnormal [employer] Phone: [employer] Work Phone: Hemoglobin [id number] By: Juan Jose Barbour on 04-14-2021 Glucose [Mass/Vol] 378 mg/dL [employer] Phone: Comment on above: The ADA and AACC rec ommend providing the estimated average glucose result to permit better patient understanding of their HBA1c result. HbA1c (Bld) [Mass fraction] 14.8 % High 4.0 - 6.0 % [employer] Phone: Interpretation and review of laboratory results Abnormal [employer] Phone: [employer] Phone: MagnesiumOrdered By: Roverto dozier on 04-14-2021 Magnesium [Mass/Vol] 1.7 mg/dL 1.6 - 2 .6 mg/dL [employer] Phone: Magnesium [Mass/Vol] 1.8 mg/dL 1.6 - 2 .6 mg/dL [employer] Phone: Magnesium [Mass/Vol] 1.6 mg/dL 1.6 - 2 .6 mg/dL [employer] Phone: Magnesium [Mass/Vol] 1.7 mg/dL 1.6 - 2 .6 mg/dL [employer] Phone: Magnesium [Mass/Vol] 1.8 mg/dL 1.6 - 2 .6 mg/dL [employer] Phone: No Panel InformationOrdered By: Roverto Barbour on 04-14-2021 Interpretation and review of laboratory results Abnormal [employer] Phone: [employer] Work Phone: Interpretation and review of laboratory results Abnormal [employer] Phone: [employer] Work Phone: Interpretation and review of laboratory results Abnormal [employer] Work Phone: [employer] Work Phone: Interpretation and review of laboratory results Abnormal [employer] Work Phone: [employer] Work Phone: Interpretation and review of laboratory results Abnormal [employer] Phone: [employer] Phone: PhosphorusOrdered By: Roverto Barbour on 04-14-2021 Phosphate [Mass/Vol] 2.5 mg/dL Low 2.6 - 4 .5 mg/dL [employer] Work Phone: Phosphate [Mass/Vol] 2.2 mg/dL Low 2.6 - 4 .5 mg/dL [employer] Work Phone: Phosphate [Mass/Vol] 1.9 mg/dL Low 2.6 - 4 .5 mg/dL [employer] Phone: Phosphate [Mass/Vol] 2.0 mg/dL Low 2.6 - 4 .5 mg/dL [employer] Phone: Phosphate [Mass/Vol] 2.1 mg/dL Low 2.6 - 4 .5 mg/dL [employer] Work Phone: TroponinOrdered By: Roverto fink on 04-14-2021 Troponin Interp NOT REPORTED [facility]alt Work Phone: Troponin T NOT REPORTED <0.03 ng/mL [employer] [employer] Work Phone: Troponin, High Sensitivity 7 ng/L 0 - 14 ng/L [employer] Work Phone: Comment on above: High Sensitivity Troponin values cannot be compared with other Troponin methodologies. Patients with high levels of Biotin oral intake (i.e >5mg/day) may have falsely decreased Troponin levels. Samples collected within 8 hours of biotin intake may require additional information for diagnosis. [employer] Work Phone: Beta-HydroxybutyrateOrdered By: Reji Rondon on 04-13-2021 Beta-Hydroxybutyrate 9.79 mmol/L High 0.02 - 0.27 mmol/L [employer] Work Phone: Interpretation and review of laboratory results Abnormal [facility] Work Phone: [employer] Work Phone: CBC Auto DifferentialOrdered By: Reji Rondon on 04-13-2021 Absolute Eos # 0.00 [facility] Hospital[facility] Work Phone: Absolute Immature Granulocyte NOT REPORTED [facility] Work Phone: Absolute Lymph # 0.80 Low [facility] Work Phone: Absolute [place] # 0.50 [facility] Work Phone: Basophils (Bld) [#/Vol] 0.00 10*3/uL [facility] Work Phone: Basophils/100 WBC (Bld) 0 % 0 - 2 % [facility] HospitalGame[facility] Phone: Differential Type YES [facility] H ealt Work Phone: Eosinophils/100 WBC (Bld) 0 % 0 - 5 % [facility] Work Phone: Hematocrit (Bld) [Volume fraction] 51.4 % High 36 - 46 % [facility] Work Phone: Hemoglobin.gastrointe stinal spec 1 Ql (Stl) 17.0 g/dL High 12.0 - 16.0 g/dL [employer] Phone: Immature Granulocytes NOT REPORTED 0 % [facility] Work Phone: Interpretation and review of laboratory results Abnormal [employer] Work Phone: Lymphocytes/100 WBC (Bld) 7 % Low 15 - 40 % [employer] Work Phone: MCH (RBC) [Entitic mass] 30.2 pg 26 - 34 pg [employer] Work Phone: MCHC (RBC) [Mass/Vol] 33.1 g/dL 31 - 3 7 g/dL [employer] Work Phone: MCV (RBC) [Entitic vol] 91.3 fL 80 - 100 fL [employer] Work Phone: Monocytes/100 WBC (Bld) 5 % 4 - 8 % [employer] Work Phone: NRBC Automated NOT REPORTED per 100 WBC [employer] Work Phone: Platelet distribution width (Bld) [Ratio] 13.8 % 12.1 - 15.2 % [employer] Work Phone: Platelet Estimate NOT REPORTED [employer] Work Phone: Platelet mean volume (Bld) [Entitic vol] NOT REPORTED 6.0 - 12.0 fL [employer] Work Phone: Platelets (Bld) [#/Vol] 355 10*3/uL [employer] Phone: RBC (Bld) [#/Vol] 5.63 10*6/uL High 4.0 - 5.2 m/uL [employer] Work Phone: RBC (Bld) [#/Vol] NOT REPORTED [employer] Work Phone: Segmented neutrophils/100 WBC (Bld) 88 % High 47 - 75 % [employer] Work Phone: Segs Absolute 10.40 High [employer] Work Phone: WBC (Bld) [#/Vol] 11.6 10*3/uL High [employer] Work Phone: WBC (Bld) [#/Vol] NOT REPORTED [employer] Phone: [employer] Phone: COVID-19, RapidOrdered By: Chichi Rondon on 04-13-2021 SARS-CoV-2 (COVID-19) RNA ESPERANZA+probe Ql (Unsp spec) Not detected Not Detected [employer] Phone: Comment on above: Rapid NAAT: The [...] management decisions. Fact sheet for Healthcare Providers: https://www.fda.gov/media/008297/download Fact sheet for Patients: https://www.fda.gov/media/067980/download Methodology: Isothermal Nucleic Acid Amplification Specimen Description .NASOPHARYNGEAL SWAB [employer] Phone: [employer] Phone: CT ABDOMEN PELVIS WO CONTRAS T Additional Contrast? NoneOrdered By: Reji Rondon on 04-13-2021 1. Bilateral nonobstructing renal calculi. No ureteral calculi. 2. Left renal cysts which are not optimally assessed on this unenhanced study. 3. Hepatic steatosis. [employer] Phone: EXAMINATION: CT ABDO MEN PELVIS WO [...] No ascites or focal intraperitoneal fluid collections. [employer] Phone: Temo, pn Incoming Radiant Results From [facility] - 04/13/2021 5:00 PM EDT EXAMINATION: CT [...] on this unenhanced study. 3. Hepatic steatosis. [employer] Phone: [employer] Phone: Comprehensive Metabolic Pane l w/ Reflex to MGOrdered By: Reji Rondon on 04-13-2021 Albumin [Mass/Vol] 4.5 g/dL 3.5 - 5.2 g/dL [employer] Phone: Albumin/Globulin Ratio NOT REPORTED [employer] Phone: ALP (Bld) [Catalytic activity/Vol] 144 U/L High 35 - 104 U/L [employer] Phone: ALT [Catalytic activity/Vol] 15 U/L 5 - 33 U/L [employer] Phone: Anion gap [Moles/Vol] 33 mmol/L High 9 - 17 mmol/L [employer] Phone: AST [Catalytic activity/Vol] 11 U/L <32 [employer] Phone: Bilirubin [Mass/Vol] 0.22 mg/dL Low 0.30 - 1.20 mg/dL [employer] Phone: Calcium [Mass/Vol] 10.3 mg/dL 8.6 - 10. 4 mg/dL [employer] Phone: Chloride [Moles/Vol] 91 mmol/L Low 98 - 10 7 mmol/L [employer] Phone: CO2 [Moles/Vol] 6 mmol/L Critically low 20 - 31 mmol/L [employer] Phone: Creatinine [Mass/Vol] 0.89 mg/dL 0.50 - 0.90 mg/dL [employer] Phone: Free PSA/Total PSA [Mass fraction] 8.2 g/dL 6.4 - 8.3 g/dL [employer] Phone: GFR >60 >60 mL/min [employer] Phone: GFR Non- >60 >60 mL/min [employer] Phone: GFR/1.73 sq M.predicted MDRD (S/P/Bld) [Vol rate/Area] [employer] Phone: Comment on above: Average GFR for 50-5 9 years old: 93 mL/min/1.73sq m Chronic Kidney Disease: <60 mL/min/1.73sq m Kidney failure: <15 mL/min/1.73sq m eGFR calculated using average adult body mass. Additional eGFR calculator available at: http://www.[employer]/multiple_crcl_2012.htm GFR/1.73 sq M.predicted MDRD (S/P/Bld) [Vol rate/Area] NOT REPORTED [employer] Phone: Glucose [Mass/Vol] 437 mg/dL Critically high 70 - 9 9 mg/dL [employer] Phone: Interpretation and review of laboratory results Abnormal [employer] Phone: Potassium [Moles/Vol] 4.4 mmol/L 3.7 - 5.3 mmol/L [employer] Phone: Sodium [Moles/Vol] 130 mmol/L Low 135 - 144 mmol/L [employer] Phone: Urea nitrogen (BldV) [Mass/Vol] 21 mg/dL High 6 - 20 mg/dL [employer] Phone: Urea nitrogen/Creatinine (Bld) [Mass ratio] 24 High [employer] Phone: Glucose, Whole BloodOrdered By: Roverto Barbour on 04-13-2021 Glucose [Mass/Vol] 186 mg/dL High 65 - 99 mg/dL [employer] Phone: Interpretation and review of laboratory results Abnormal [employer] Phone: [employer] Phone: Glucose [Mass/Vol] 219 mg/dL High 65 - 99 mg/dL [employer] Phone: Interpretation and review of laboratory results Abnormal [employer] Phone: [facility] [employer] Work Phone: Glucose, Whole BloodOrdered By: Reji Rondon on 04-13-2021 Glucose [Mass/Vol] 239 mg/dL High 65 - 99 mg/dL [facility] [employer] Work Phone: Interpretation and review of laboratory results Abnormal [facility] Work Phone: [facility] [employer] Work Phone: Glucose [Mass/Vol] 383 mg/dL High 65 - 99 mg/dL [facility] [employer] Work Phone: Interpretation and review of laboratory results Abnormal [facility] [employer] Work Phone: [facility] [employer] Work Phone: LipaseOrdered By: Reji galvan on 04-13-2021 Lipase [Catalytic activity/Vol] 26 U/L 13 - 60 U/L [facility] Work Phone: Microscopic UrinalysisOrdere d By: Reji Rondon on 04-13-2021 - [facility] [employer] Work Phone: Amorphous, UA NOT REPORTED None [facility] Work Phone: Bacteria, UA NOT REPORTED None [facility] Work Phone: Casts UA NOT REPORTED /LPF [facility] Work Phone: Crystals, UA NOT REPORTED None /HPF [facility] Work Phone: Epithelial Cells UA NOT REPORTED /HPF [facility] Work Phone: Interpretation and review of laboratory results Abnormal [facility] Work Phone: Mucus, UA RARE Abnormal None [facility] Work Phone: Other Observations UA NOT REPORTED NOT REQ. M [facility] Work Phone: RBC, UA NOT REPORTED [facility] Work Phone: Renal Epithelial, UA NOT REPORTED 0 /HPF [facility] Work Phone: Trichomonas, UA NOT REPORTED None [facility] Work Phone: WBC, UA 0 TO 2 0 /HPF [employer] Work Phone: Yeast, UA NOT REPORTED None [employer] Work Phone: [employer] Work Phone: No Panel InformationOrdered By: Reji Rondon on 04-13-2021 [employer] Work Phone: POCT Glucose - every hourOrd ered By: Reji Rondon on 04-13-2021 Glucose [Mass/Vol] 239 mg/dL [employer] Work Phone: Interpretation and review of laboratory results Normal [employer] Work Phone: QC OK? yes [employer] Work Phone: [employer] Work Phone: Glucose [Mass/Vol] 383 mg/dL [employer] Work Phone: Interpretation and review of laboratory results Normal [employer] Work Phone: QC OK? yes [employer] Work Phone: [employer] Work Phone: Urinalysis, reflex to micros copicOrdered By: Reji Rondon on 04-13-2021 Bilirubin Urine Negative NEGATIVE [facility] [facility] Work Phone: Color, UA Yellow Yellow [employer] Work Phone: Glucose, Ur 1000 mg/dL Abnormal NEGATIVE [employer] Work Phone: Interpretation and review of laboratory results Abnormal [employer] Work Phone: Ketones Ql (U) LARGE Abnormal NEGATIVE [employer] Work Phone: Leukocyte esterase Test strip Ql (U) Negative NEGATIVE [employer] Work Phone: Nitrite, Urine Negative NEGATIVE [employer] Work Phone: pH, UA 5.0 [employer] Work Phone: Protein, UA 2+ Abnormal NEGATIVE [employer] Phone: Specific [place], UA 1.025 [employer] Phone: Turbidity UA Clear Clear [employer] Phone: Urinalysis Comments [employer] Phone: Urine Hgb TRACE Abnormal NEGATIVE [employer] Phone: Urobilinogen, Urine Normal Normal [facility] Phone: [employer] Phone: Basic Metabolic Panelon 01-15 Anion gap [Moles/Vol] 16 mmol/L 9 - 17 mmol/L [place] Bun/Cre Ratio 27 High [place], [place] Calcium [Mass/Vol] 9.4 mg/dL 8.6 - 10. 4 mg/dL [place] Chloride [Moles/Vol] 94 mmol/L Low 98 - 10 7 mmol/L [place] CO2 [Moles/Vol] 18 mmol/L Low 20 - 31 mmol/L [place] Creatinine [Mass/Vol] 0.52 mg/dL 0.5 - 0.9 mg/dL [place] GFR >60 >60 mL/min [place] GFR Non- >60 >60 mL/min [place] Glucose [Mass/Vol] 535 mg/dL Critically high 70 - 9 9 mg/dL [place] Interpretation and review of laboratory results Abnormal [place] Potassium [Moles/Vol] 4.6 mmol/L 3.7 - 5.3 mmol/L [place] Sodium [Moles/Vol] 128 mmol/L Low 135 - 144 mmol/L [place] Urea nitrogen [Mass/Vol] 14 mg/dL 6 - 20 mg/dL [place] CBC Auto Differentialon 01-15 Basophils (Bld) [#/Vol] 0.04 10*3/uL [place] Basophils/100 WBC (Bld) 1 % 0 - 2 % [place] Differential Type NOT REPORTED [place] Eosinophils (Bld) [#/Vol] 0.07 10*3/uL [place] Eosinophils/100 WBC (Bld) 1 % 1 - 4 % [place] Erythrocyte distribution width (RBC) [Ratio] 12.7 % 11.8 - 14.4 % [place] Hematocrit (Bld) [Volume fraction] 45.4 % 36.3 - 47.1 % [place] Hemoglobin (Bld) [Mass/Vol] 15.3 g/dL High 11.9 - 15.1 g/dL [place] Immature granulocytes (Bld) [#/Vol] 10*3/uL [place] Immature granulocytes (Bld) [#/Vol] 0 % 0 [place] Interpretation and review of laboratory results Abnormal [place] Lymphocytes (Bld) [#/Vol] 1.25 10*3/uL [place] Lymphocytes/100 WBC (Bld) 21 % Low 24 - 43 % [place] MCH (RBC) [Entitic mass] 30.1 pg 25.2 - 33.5 pg [place] MCHC (RBC) [Mass/Vol] 33.7 g/dL 28.4 - 34.8 g/dL [place] MCV (RBC) [Entitic vol] 89.4 fL 82.6 - 102.9 fL [place] Monocytes (Bld) [#/Vol] 0.66 10*3/uL [place] Monocytes/100 WBC (Bld) 11 % 3 - 12 % [place] Platelet mean volume (Bld) [Entitic vol] 10.9 fL 8.1 - 13.5 fL [place] Platelets (Bld) [#/Vol] NOT REPORTED [place] Platelets (Bld) [#/Vol] 247 10*3/uL [place] RBC (Bld) [#/Vol] 5.08 10*6/uL 3.95 - 5.1 1 m/uL [place] RBC morphology finding Nom (Bld) NOT REPORTED [place] Segmented neutrophils/100 WBC (Bld) 66 % High 36 - 65 % [place] Segs [facility] [place] [place] WBC (Bld) [#/Vol] 5.9 10*3/uL [place] WBC (Bld) [#/Vol] 0.0 10*3/uL 0.0 per 10 0 WBC [place] WBC Morphology NOT REPORTED [place] CT ABDOMEN PELVIS WO CONTRAS T [...] diverticulitis. Other incidental stable findings as above. [place] EXAMINATION: CT OF T ABDOMEN AND [...] seen. No destructive osseous process is identified. [facility] [place], [place] Temo, Mhpn Incoming Radiant Results From [facility] - 02/11/2020 10:58 AM EDT EXAMINATION: CT [...] diverticulitis. Other incidental stable findings as above. [place] Metabolic Panelon 02-11-2020 GFR/1.73 sq M predicted among non-blacks MDRD (S/P/Bld) [Vol rate/Area] [place] Comment on above: Average GFR for 50-5 9 years old: 93 mL/min/1.73sq m Chronic Kidney Disease: <60 mL/min/1.73sq m Kidney failure: <15 mL/min/1.73sq m eGFR calculated using average adult body mass. Additional eGFR calculator available at: http://www.[employer]/multiple_crcl_2012.htm Stage 1: Some kidney damage normal GFR Stage 2: Mild kidney damage GFR 60-89 Stage 3: Moderate kidney damage GFR 30-59 Stage 4: Severe kidney damage GFR 15-29 Stage 5: Severe kidney damage GFR <15 ESRD - chronic treatment by dialysis or transplant Urinalysis with Microscopico n 02-11-2020 Amorphous, UA NOT REPORTED None [place] Bacteria, UA TRACE Abnormal None [place], [place] Bilirubin Urine SMALL Abnormal NEGATIVE [place] Casts UA NOT REPORTED /LPF [place] Color, UA YELLOW YELLOW [place] Crystals, UA NOT REPORTED None /HPF [place], [place] Epithelial Cells UA 2 TO 5 [place], [place] Glucose, Ur 3+ Abnormal NEGATIVE [facility], [place] Interpretation and review of laboratory results Abnormal [place] Ketones Ql (U) 4+ Abnormal NEGATIVE [place] Leukocyte esterase Test strip Ql (U) Negative NEGATIVE [facility], [place] Mucus, UA NOT REPORTED None [facility], [place] Nitrite, Urine Negative NEGATIVE [place] Other Observations UA NOT REPORTED NOT REQ. M [facility], [place] pH, UA 6.0 [place] Protein (U) [Mass/Vol] TRACE Abnormal NEGATIVE [place] RBC (U) [#/Vol] None [facility] [place] Renal Epithelial, UA NOT REPORTED 0 /HPF [place] Specific [place], UA 1.020 [place], [place] Trichomonas, UA NOT REPORTED None [facility] [place] [place] Turbidity UA CLEAR CLEAR [place], [place] Urinalysis Comments NOT REPORTED [place], [place] Urine Hgb Negative NEGATIVE [place] Urobilinogen, Urine Normal Normal [place] WBC, UA 2 TO 5 [place] Yeast, UA NOT REPORTED None [facility], [place] Vital Signs Date Time Vital Sign Value Performing Clinician Tari cabral 03-03-2025 13:10-0400 Diastolic blood pressure 67 mm[Hg] Kavita Qureshi CNP Work Phone: [facility] 03-03-2025 13:10-0400 Systolic blood pressure 98 mm[Hg] Kavita Qureshi CNP Work Phone: [facility] 03-03-2025 12:45-0400 Diastolic blood pressure 55 mm[Hg] Kavita Qureshi SPOILAGE WORKER Work Phone: [facility] 03-03-2025 12:45-0400 Systolic blood pressure 84 mm[Hg] Kavita Qureshi SPOILAGE WORKER Work Phone: [facility] 03-03-2025 12:00-0400 Diastolic blood pressure 52 mm[Hg] Kavita Qureshi SPOILAGE WORKER Work Phone: [facility] Work Phone: 03-03-2025 12:00-0400 Systolic blood pressure 73 mm[Hg] Kavita Qureshi CNP Work Phone: [facility] Work Phone: 03-03-2025 11:56-0400 Body height 167.64 cm Kavita Qureshi CNP Work Phone: [facility] Work Phone: 03-03-2025 11:56-0400 Body mass index (BMI) [Ratio] 27.6 kg/m2 Kavita Qurehsi CNP Work Phone: [facility] Work Phone: 03-03-2025 11:56-0400 Body surface area Derived from formula 1.9 m2 Kavita Qureshi CNP Work Phone: [facility] Work Phone: 03-03-2025 11:56-0400 Body temperature 98.4 [degF] Kavita Qureshi CNP Work Phone: [facility] Work Phone: 03-03-2025 11:56-0400 Body weight 77.47 kg Kavita Qureshi CNP Work Phone: [facility] Work Phone: 03-03-2025 11:56-0400 Diastolic blood pressure 51 mm[Hg] Kavita Qureshi CNP Work Phone: [facility] Work Phone: 03-03-2025 11:56-0400 Heart rate 111 /min Kavita Qureshi CNP Work Phone: [facility] Work Phone: 03-03-2025 11:56-0400 Inhaled oxygen concentration 21 % Kavita Qureshi CNP Work Phone: [facility] Work Phone: 03-03-2025 11:56-0400 Inhaled oxygen flow rate 0 L/min Kavita Qureshi SPOILAGE WORKER Work Phone: [facility] Work Phone: 03-03-2025 11:56-0400 Respiratory rate 18 /min Kavita Qureshi SPOILAGE WORKER Work Phone: [facility] Work Phone: 03-03-2025 11:56-0400 SaO2% (BldA) [Mass fraction] 96 % Kavita Qureshi SPOILAGE WORKER Work Phone: [facility] Work Phone: 03-03-2025 11:56-0400 Systolic blood pressure 78 mm[Hg] Kavita Qureshi SPOILAGE WORKER Work Phone: [facility] Work Phone: 02-26-2025 14:30-0400 Diastolic blood pressure 63 mm[Hg] Bekah Lan MD Work Phone: [facility] [facility] [place] 02-26-2025 14:30-0400 Systolic blood pressure 90 mm[Hg] Bekah Lan MD Work Phone: [facility] [place] 02-26-2025 13:15-0400 SaO2% (BldA) [Mass fraction] 93 % Bekah Lan MD Work Phone: [facility] [place] 02-26-2025 13:01-0400 Body height 167.6 cm Bekah Lan MD Work Phone: [facility] [place] 02-26-2025 13:01-0400 Body mass index (BMI) [Ratio] 25.99 kg/m2 Bekah Lan MD Work Phone: [facility] [place] 02-26-2025 13:01-0400 Body temperature 97.81 [degF] Bekah Lan MD Work Phone: [facility] 02-26-2025 13:01-0400 Body weight 73.03 kg Bekah Lan MD Work Phone: [facility] 02-26-2025 13:01-0400 Heart rate 105 /min Bekah Lan MD Work Phone: [facility] 02-26-2025 13:01-0400 Respiratory rate 18 /min Bekah Lan MD Work Phone: [facility] 12-31-2024 12:41-0400 Diastolic blood pressure 62 mm[Hg] Kavita Qureshi [employer]ILAGE WORKER Work Phone: [facility] 12-31-2024 12:41-0400 Systolic blood pressure 92 mm[Hg] Kavita Qureshi [employer]ILAGE WORKER Work Phone: [facility] 12-31-2024 12:33-0400 Body height 167.64 cm Kavita Bayer [employer]ILAGE WORKER Work Phone: [facility] 12-31-2024 12:33-0400 Body mass index (BMI) [Ratio] 28.1 kg/m2 Kavita Hardeep [employer]ILAGE WORKER Work Phone: [facility] 12-31-2024 12:33-0400 Body surface area Derived from formula 1.9 m2 Kavita Hardeep [employer]ILAGE WORKER Work Phone: [facility] 12-31-2024 12:33-0400 Body temperature 98.3 [degF] Kavita Hardeep [employer]ILAGE WORKER Work Phone: [facility] 12-31-2024 12:33-0400 Body weight 78.93 kg Kavita Qureshi [employer]ILAGE WORKER Work Phone: [facility] 12-31-2024 12:33-0400 Diastolic blood pressure 61 mm[Hg] Kavita Hardeep [employer]ILAGE WORKER Work Phone: [facility] 12-31-2024 12:33-0400 Heart rate 114 /min Kavita Qureshi [employer]ILAGE WORKER Work Phone: [facility] 12-31-2024 12:33-0400 Respiratory rate 20 /min Kavita Byaer [employer]ILAGE WORKER Work Phone: [facility] 12-31-2024 12:33-0400 SaO2% (BldA) [Mass fraction] 94 % Kavita Hardeep [employer]ILAGE WORKER Work Phone: [facility] 12-31-2024 12:33-0400 Systolic blood pressure 88 mm[Hg] Kavita Hardeep [employer]ILAGE WORKER Work Phone: [facility] 11-27-2024 10:55-0400 Diastolic blood pressure 69 mm[Hg] Kavita Hardeep [employer]ILAGE WORKER Work Phone: [facility] 11-27-2024 10:55-0400 Systolic blood pressure 101 mm[Hg] Kavita Hardeep SPOILAGE WORKER Work Phone: [facility] 11-27-2024 10:52-0400 Body height 167.64 cm Kavita Hardeep [employer]ILAGE WORKER Work Phone: [facility] 11-27-2024 10:52-0400 Body mass index (BMI) [Ratio] 27.8 kg/m2 Kavita Hardeep [employer]ILAGE WORKER Work Phone: [facility] 11-27-2024 10:52-0400 Body surface area Derived from formula 1.9 m2 Kavita Hardeep [employer]ILAGE WORKER Work Phone: [facility] 11-27-2024 10:52-0400 Body weight 78.02 kg Kavita Hardeep S[employer]ILAGE WORKER Work Phone: [facility] 11-27-2024 10:52-0400 Diastolic blood pressure 73 mm[Hg] Kavita Hardeep [employer]ILAGE WORKER Work Phone: [facility] 11-27-2024 10:52-0400 Heart rate 114 /min Kavita Hardeep [employer]ILAGE WORKER Work Phone: [facility] 11-27-2024 10:52-0400 SaO2% (BldA) [Mass fraction] 95 % Kavita Hardeep [employer]ILAGE WORKER Work Phone: [facility] 11-27-2024 10:52-0400 Systolic blood pressure 108 mm[Hg] Kavita Hardeep [employer]ILAGE WORKER Work Phone: [facility] 10-24-2024 15:03-0400 Diastolic blood pressure 68 mm[Hg] Kavita Qureshi CNP Work Phone: [facility] 10-24-2024 15:03-0400 Systolic blood pressure 114 mm[Hg] Kvaita Qureshi CNP Work Phone: [facility] 10-24-2024 14:55-0400 Body height 167.64 cm Kavita Qureshi CNP Work Phone: [facility] 10-24-2024 14:55-0400 Body mass index (BMI) [Ratio] 27.7 kg/m2 Kavita Qureshi CNP Work Phone: [facility] 10-24-2024 14:55-0400 Body surface area Derived from formula 1.9 m2 Kavita Qureshi CNP Work Phone: [facility] 10-24-2024 14:55-0400 Body weight 77.93 kg Kavita Qureshi CNP Work Phone: [facility] 10-24-2024 14:55-0400 Diastolic blood pressure 72 mm[Hg] Kavita Qureshi CNP Work Phone: [facility] 10-24-2024 14:55-0400 Heart rate 113 /min Kavita Qureshi CNP Work Phone: [facility] 10-24-2024 14:55-0400 SaO2% (BldA) [Mass fraction] 95 % Kavita Qureshi CNP Work Phone: [facility] 10-24-2024 14:55-0400 Systolic blood pressure 123 mm[Hg] Kavitadima Qureshi SPOILAGE WORKER Work Phone: [facility] 09-29-2024 13:45-0400 Diastolic blood pressure 82 mm[Hg] Cris Herring MD Work Phone: [employer] [facility] [employer] 09-29-2024 13:45-0400 Heart rate 115 /min Cris Herring MD Work Phone: [facility] 09-29-2024 13:45-0400 Respiratory rate 18 /min Cris Herring MD Work Phone: [facility] 09-29-2024 13:45-0400 SaO2% (BldA) [Mass fraction] 98 % Cris Herring MD Work Phone: [facility] 09-29-2024 13:45-0400 Systolic blood pressure 115 mm[Hg] Cris Herring MD Work Phone: [facility] 09-29-2024 13:44-0400 Body height 170.2 cm Cris Herring MD Work Phone: [facility] 09-29-2024 13:44-0400 Body mass index (BMI) [Ratio] 27.57 kg/m2 Cris Herring MD Work Phone: [facility] 09-29-2024 13:44-0400 Body weight 79.83 kg Cris Herring MD Work Phone: [facility] 09-19-2024 09:36-0500 Diastolic blood pressure 72 mm[Hg] Kavita Qureshi CNP Work Phone: [facility] 09-19-2024 09:36-0500 Systolic blood pressure 116 mm[Hg] Kavita Qureshi CNP Work Phone: [facility] 09-19-2024 09:24-0500 Body height 167.64 cm Kavita Qureshi CNP Work Phone: [facility] 09-19-2024 09:24-0500 Body mass index (BMI) [Ratio] 28.9 kg/m2 Kavita Qureshi CNP Work Phone: [facility] 09-19-2024 09:24-0500 Body surface area Derived from formula 1.9 m2 Kavita Qureshi CNP Work Phone: [facility] 09-19-2024 09:24-0500 Body temperature 98.4 [degF] Kavita Qureshi CNP Work Phone: [facility] 09-19-2024 09:24-0500 Body weight 81.1 kg Kavita Bayer [employer]ILAGE WORKER Work Phone: [facility] 09-19-2024 09:24-0500 Diastolic blood pressure 63 mm[Hg] Kavita Hardeep [employer]POILAGE WORKER Work Phone: [facility] 09-19-2024 09:24-0500 Heart rate 122 /min Kavita Bayer [employer]POILAGE WORKER Work Phone: [facility] 09-19-2024 09:24-0500 Respiratory rate 18 /min Kavita Hardeep [employer]POILAGE WORKER Work Phone: [facility] 09-19-2024 09:24-0500 SaO2% (BldA) [Mass fraction] 95 % Kavita Hardeep [employer]IL[employer] WORKER Work Phone: [facility] 09-19-2024 09:24-0500 Systolic blood pressure 131 mm[Hg] Kavita Hardeep [employer]ILAGE WORKER Work Phone: [facility] 09-09-2024 06:34-0500 Diastolic blood pressure 81 mm[Hg] Mallory Aleman MD Work Phone: [facility] [place] 09-09-2024 06:34-0500 Heart rate 123 /min Mallory Aleman MD Work Phone: [facility] 09-09-2024 06:34-0500 Respiratory rate 21 /min Mallory Aleman MD Work [facility]: [facility] [employer] 09-09-2024 06:34-0500 SaO2% (BldA) [Mass fraction] 98 % Mallory Aleman MD Work Phone: [facility] [place] 09-09-2024 06:34-0500 Systolic blood pressure 107 mm[Hg] Mallory Aleman MD Work Phone: [facility] [place] 09-09-2024 04:20-0500 Body height 170.2 cm Mallory Aleman MD Work Phone: [facility] 09-09-2024 04:20-0500 Body mass index (BMI) [Ratio] 27.57 kg/m2 Mallory Aleman MD Work Phone: [facility] [place] 09-09-2024 04:20-0500 Body temperature 97.81 [degF] Mallory Aleman MD Work Phone: [facility] [place] 09-09-2024 04:20-0500 Body weight 79.83 kg Mallory Aleman MD Work Phone: [facility] [place] 09-04-2024 10:45-0500 Diastolic blood pressure 75 mm[Hg] Mallory Aleman MD Work Phone: [facility] [place] 09-04-2024 10:45-0500 Heart rate 115 /min Mallory Aleman MD Work Phone: [facility] [place] 09-04-2024 10:45-0500 Respiratory rate 25 /min Mallory Aleman MD Work Phone: [facility] [place] 09-04-2024 10:45-0500 SaO2% (BldA) [Mass fraction] 97 % Mallory Aleman MD Work Phone: [facility] [place] 09-04-2024 10:45-0500 Systolic blood pressure 99 mm[Hg] Mallory Aleman MD Work Phone: [facility] [place] 09-04-2024 08:07-0500 Body height 170.2 cm Mallory Aleman MD Work Phone: [facility] [place] 09-04-2024 08:07-0500 Body mass index (BMI) [Ratio] 28.04 kg/m2 Mallory Aleman MD Work Phone: [facility] [place] 09-04-2024 08:07-0500 Body temperature 97.7 [degF] Mallory Aleman MD Work Phone: [facility] 09-04-2024 08:07-0500 Body weight 81.19 kg Mallory Aleman MD Work Phone: [facility] 09-02-2024 20:00-0500 Diastolic blood pressure 87 mm[Hg] Chaim Del Toro MD [facility] 09-02-2024 20:00-0500 Heart rate 119 /min Chaim Del Toro MD Work [facility] 09-02-2024 20:00-0500 SaO2% (BldA) [Mass fraction] 98 % Chaim Del Toro MD Work Phone: [facility] [employer] 09-02-2024 20:00-0500 Systolic blood pressure 118 mm[Hg] Chaim Del Toro MD Work Phone: [facility] [place] 09-02-2024 14:13-0500 Body mass index (BMI) [Ratio] 27.57 kg/m2 Chaim Del Toro MD Work Phone: [facility] [place] 09-02-2024 14:13-0500 Body temperature 98.01 [degF] Chaim Del Toro MD Work Phone[facility] 09-02-2024 14:13-0500 Body weight 79.83 kg Chaim Del Toro MD Work Phone: [facility] [place] 09-02-2024 14:13-0500 Respiratory rate 16 /min Chaim Del Toro MD Work Phone: [facility] [employer] 09-02-2024 13:06-0500 Diastolic blood pressure 68 mm[Hg] Kavita Qureshi CNP Work Phone: [facility] 09-02-2024 13:06-0500 Heart rate 123 /min Kavita Qureshi SPOILAGE WORKER Work Phone: [facility] 09-02-2024 13:06-0500 Systolic blood pressure 94 mm[Hg] Kavita Hardeep SPOILAGE WORKER Work Phone: [facility] 09-02-2024 12:24-0500 Diastolic blood pressure 60 mm[Hg] Kavita Hardeep SPOILAGE WORKER Work Phone: [facility] 09-02-2024 12:24-0500 Systolic blood pressure 83 mm[Hg] Kavita Hardeep SPOILAGE WORKER Work Phone: [facility] 09-02-2024 12:21-0500 Diastolic blood pressure 62 mm[Hg] Kavita Hardeep SPOILAGE WORKER Work Phone: [facility] 09-02-2024 12:21-0500 Systolic blood pressure 84 mm[Hg] Kavita Hardeep SPOILAGE WORKER Work Phone: [facility] 09-02-2024 12:14-0500 Body height 167.64 cm Kavita Bayer SPOILAGE WORKER Work Phone: [facility] 09-02-2024 12:14-0500 Body mass index (BMI) [Ratio] 28.4 kg/m2 Kavita Bayer [employer]POILAGE WORKER Work Phone: [facility] 09-02-2024 12:14-0500 Body surface area Derived from formula 1.9 m2 Kavita Bayer SPOILAGE WORKER Work Phone: [facility] 09-02-2024 12:14-0500 Body temperature 97.9 [degF] Kavita Hardeep SPOILAGE WORKER Work Phone: [facility] 09-02-2024 12:14-0500 Body weight 79.83 kg Kavita Hardeep SPOILAGE WORKER Work Phone: [facility] 09-02-2024 12:14-0500 Diastolic blood pressure 73 mm[Hg] Kavita Hardeep SPOILAGE WORKER Work Phone: [facility] 09-02-2024 12:14-0500 Heart rate 133 /min Kavita Hardeep SPOILAGE WORKER Work Phone: [facility] 09-02-2024 12:14-0500 SaO2% (BldA) [Mass fraction] 95 % Kavita Hardeep SPOILAGE WORKER Work Phone: [facility] 09-02-2024 12:14-0500 Systolic blood pressure 104 mm[Hg] Kavita Hardeep SPOILAGE WORKER Work Phone: [facility] 08-21-2024 20:45-0500 Diastolic blood pressure 65 mm[Hg] Chaim Del Toro MD Work Phone: [facility] [place] 08-21-2024 20:45-0500 Heart rate 122 /min Chaim Del Toro MD Work Phone: [facility] [place] 08-21-2024 20:45-0500 Respiratory rate 21 /min Chaim Del Toro MD Work Phone: [facility] 08-21-2024 20:45-0500 SaO2% (BldA) [Mass fraction] 98 % Chaim Del Toro MD Work Phone: [facility] 08-21-2024 20:45-0500 Systolic blood pressure 119 mm[Hg] Chaim Del Toro MD Work Phone: [facility] [place] 08-21-2024 18:20-0500 Body temperature 98.8 [degF] Chaim Del Toro MD Work Phone: [facility] 08-21-2024 16:02-0500 Diastolic blood pressure 64 mm[Hg] Kavita Qureshi SPOILAGE WORKER Work Phone: [facility] 08-21-2024 16:02-0500 Systolic blood pressure 88 mm[Hg] Kavita Hardeep SPOILAGE WORKER Work Phone: [facility] 08-21-2024 15:17-0500 Diastolic blood pressure 49 mm[Hg] Kavita Hardeep SPOILAGE WORKER Work Phone: [facility] 08-21-2024 15:17-0500 Systolic blood pressure 77 mm[Hg] Kavita Hardeep SPOILAGE WORKER Work Phone: [facility] 08-21-2024 15:01-0500 Body height 167.64 cm Kavita Qureshi CNP Work Phone: [facility] 08-21-2024 15:01-0500 Body mass index (BMI) [Ratio] 28.7 kg/m2 Kavita Qureshi CNP Work Phone: [facility] 08-21-2024 15:01-0500 Body surface area Derived from formula 1.9 m2 Kavita Qureshi CNP Work Phone: [facility] 08-21-2024 15:01-0500 Body temperature 97.7 [degF] Kavita Qureshi CNP Work Phone: [facility] 08-21-2024 15:01-0500 Body weight 80.74 kg Kavita Qureshi CNP Work Phone: [facility] 08-21-2024 15:01-0500 Diastolic blood pressure 60 mm[Hg] Kavita Qureshi CNP Work Phone: [facility] 08-21-2024 15:01-0500 Heart rate 133 /min Kavita Qureshi CNP Work Phone: [facility] 08-21-2024 15:01-0500 SaO2% (BldA) [Mass fraction] 95 % Kavita Qureshi CNP Work Phone: [facility] 08-21-2024 15:01-0500 Systolic blood pressure 80 mm[Hg] Kavita Qureshi CNP Work Phone: [facility] 08-17-2024 10:16-0500 Body height 170.2 cm Lukas Lopez MD Work Phone: [facility] 08-17-2024 10:16-0500 Body mass index (BMI) [Ratio] 28.82 kg/m2 Lukas Lopez MD Work Phone: [facility] 08-17-2024 10:16-0500 Body temperature 98.1 [degF] Lukas Lopez MD Work Phone: [facility] 08-17-2024 10:16-0500 Body weight 83.46 kg Lukas Lopez MD Work Phone: [facility] 08-17-2024 10:16-0500 Diastolic blood pressure 86 mm[Hg] Lukas Lopez MD Work Phone: [facility] 08-17-2024 10:16-0500 Heart rate 133 /min Lukas Loepz MD Work Phone: [employer] [facility] [place] 08-17-2024 10:16-0500 Respiratory rate 18 /min Lukas Lopez MD Work Phone: [facility] 08-17-2024 10:16-0500 SaO2% (BldA) [Mass fraction] 96 % Lukas Lopez MD Work Phone: [facility] 08-17-2024 10:16-0500 Systolic blood pressure 156 mm[Hg] Lukas Lopez MD Work [facility] 08-08-2024 15:13-0500 Body height 167.64 cm Kavita Qureshi CNP Work Phone: [facility] 08-08-2024 15:13-0500 Body mass index (BMI) [Ratio] 28.7 kg/m2 Kavita Qureshi SPOILAGE WORKER Work Phone: [facility] 08-08-2024 15:13-0500 Body surface area Derived from formula 1.9 m2 Kavita Qureshi CNP Work Phone: [facility] 08-08-2024 15:13-0500 Body temperature 98.3 [degF] Kavita Qureshi CNP Work Phone: [facility] 08-08-2024 15:13-0500 Body weight 80.74 kg Kavita Qureshi SPOILAGE WORKER Work Phone: [facility] 08-08-2024 15:13-0500 Diastolic blood pressure 66 mm[Hg] Kavita Qureshi SPOILAGE WORKER Work Phone: [facility] 08-08-2024 15:13-0500 Heart rate 120 /min Kavita Hardeep SPOILAGE WORKER Work Phone: [facility] 08-08-2024 15:13-0500 Respiratory rate 18 /min Kavita Hardeep SPOILAGE WORKER Work Phone: [facility] 08-08-2024 15:13-0500 SaO2% (BldA) [Mass fraction] 93 % Kavita Hardeep SPOILAGE WORKER Work Phone: [facility] 08-08-2024 15:13-0500 Systolic blood pressure 134 mm[Hg] Kavita Hardeep SPOILAGE WORKER Work Phone: [facility] 08-04-2024 11:44-0500 Diastolic blood pressure 84 mm[Hg] Namita Rizzo MD Work Phone: [facility] 08-04-2024 11:44-0500 Heart rate 110 /min Namita Rizzo MD Work Phone: [facility] [place] 08-04-2024 11:44-0500 Respiratory rate 16 /min Namita Rizzo MD Work Phone: [facility] 08-04-2024 11:44-0500 SaO2% (BldA) [Mass fraction] 96 % Namita Rizzo MD Work Phone: [facility] 08-04-2024 11:44-0500 Systolic blood pressure 167 mm[Hg] Namita Rizzo MD Work Phone: [facility] 08-04-2024 10:24-0500 Body height 170.2 cm Namita Rizzo MD Work Phone: [facility] 08-04-2024 10:24-0500 Body mass index (BMI) [Ratio] 30.38 kg/m2 Namita Rizzo MD Work Phone: [facility] 08-04-2024 10:24-0500 Body temperature 97.81 [degF] Namita Rizzo MD Work Phone: [facility] 08-04-2024 10:24-0500 Body weight 88 kg Namita Rizzo MD Work Phone: [facility] 07-04-2024 14:48-0500 Diastolic blood pressure 82 mm[Hg] Kavita Hardeepalina JIMENEZ Work Phone: [facility] 07-04-2024 14:48-0500 Systolic blood pressure 117 mm[Hg] Kavita Hardeep SPOILAGE WORKER Work Phone: [facility] 07-04-2024 14:40-0500 Body height 167.64 cm Kavita Hardeep SPOILAGE WORKER Work Phone: [facility] 07-04-2024 14:40-0500 Body mass index (BMI) [Ratio] 30.9 kg/m2 Kavita Hardeep SPOILAGE WORKER Work Phone: [facility] 07-04-2024 14:40-0500 Body surface area Derived from formula 2 m2 Kavita Hardeepalina JIMENEZ Work Phone: [facility] 07-04-2024 14:40-0500 Body temperature 98.1 [degF] Kavita Hardeep SPOILAGE WORKER Work Phone: [facility] 07-04-2024 14:40-0500 Body weight 86.73 kg Kavita Bayer SPOILAGE WORKER Work Phone: [facility] 07-04-2024 14:40-0500 Diastolic blood pressure 81 mm[Hg] Kavita Hardeep SPOILAGE WORKER Work Phone: [facility] 07-04-2024 14:40-0500 Heart rate 117 /min Kavita Hardeep SPOILAGE WORKER Work Phone: [facility] 07-04-2024 14:40-0500 SaO2% (BldA) [Mass fraction] 94 % Kavita Hardeep SPOILAGE WORKER Work Phone: [facility] 07-04-2024 14:40-0500 Systolic blood pressure 121 mm[Hg] Kavita Bayer SPOILAGE WORKER Work Phone: [facility] 06-06-2024 15:43-0500 Body height 167.64 cm Kavita Qureshi CNP Work Phone: [facility] 06-06-2024 15:43-0500 Body mass index (BMI) [Ratio] 28.1 kg/m2 Kavita Qureshi CNP Work Phone: [facility] 06-06-2024 15:43-0500 Body surface area Derived from formula 1.9 m2 Kavita Qureshi CNP Work Phone: [facility] 06-06-2024 15:43-0500 Body temperature 98.1 [degF] Kavita Qureshi CNP Work Phone: [facility] 06-06-2024 15:43-0500 Body weight 79.11 kg Kavita Qureshi CNP Work Phone: [facility] 06-06-2024 15:43-0500 Diastolic blood pressure 78 mm[Hg] Kavita Qureshi SPOILAGE WORKER Work Phone: [facility] 06-06-2024 15:43-0500 Heart rate 112 /min Kavita Qureshi SPOILAGE WORKER Work Phone: [facility] 06-06-2024 15:43-0500 Respiratory rate 18 /min Kavita Qureshi CNP Work Phone: [facility] 06-06-2024 15:43-0500 SaO2% (BldA) [Mass fraction] 94 % Kavita Qureshi SPOILAGE WORKER Work Phone: [facility] 06-06-2024 15:43-0500 Systolic blood pressure 115 mm[Hg] Kavita Bayer SPOILAGE WORKER Work Phone: [facility] 07-05-2022 10:20-0500 SaO2% (BldA) [Mass fraction] 95 % Talita Crouch DO Work Phone: [employer] 07-05-2022 10:18-0500 Heart rate 103 /min Talita Crouch DO Work Phone: [employer] 07-05-2022 09:30-0500 Body temperature 99.19 [degF] Talita Crouch DO Work Phone: [employer] 07-05-2022 09:30-0500 Diastolic blood pressure 73 mm[Hg] Talita Crouch DO Work Phone: [employer] 07-05-2022 09:30-0500 Respiratory rate 20 /min Talita Crouch DO Work Phone: [employer] 07-05-2022 09:30-0500 Systolic blood pressure 167 mm[Hg] Talita Crouch DO Work Phone: [employer] 06-22-2022 17:40-0500 Diastolic blood pressure 58 mm[Hg] Irvin Magana MD Work Phone: [employer] 06-22-2022 17:40-0500 Heart rate 108 /min Irvin Magana MD Work Phone: [employer] [facility] 06-22-2022 17:40-0500 Respiratory rate 24 /min Irvin Magana MD Work Phone: [employer] 06-22-2022 17:40-0500 SaO2% (BldA) [Mass fraction] 99 % Irvin Magana MD Work Phone: [employer] 06-22-2022 17:40-0500 Systolic blood pressure 129 mm[Hg] Irvin Magana MD Work Phone: [employer] 06-22-2022 16:08-0500 Body temperature 97.2 [degF] Irvin Magana MD Work Phone: [employer] 06-21-2022 20:00-0500 Body height 170.2 cm Irvin Magana MD Work Phone: [employer] [facility] 06-21-2022 20:00-0500 Body mass index (BMI) [Ratio] 29.76 kg/m2 Irvin Magana MD Work Phone: [employer] 06-21-2022 20:00-0500 Body weight 86.18 kg Irvin Magana MD Work Phone: [facility] [employer] [facility] 06-21-2022 16:58-0500 SaO2% (BldA) [Mass fraction] 68.4 % Irvin Magana MD Work Phone: [facility] 04-07-2022 14:05-0400 Body height 170.2 cm Manish Shea MD Work Phone: [facility] [employer] [facility] 04-07-2022 14:05-0400 Body mass index (BMI) [Ratio] 32.72 kg/m2 Manish Shea MD Work Phone: [facility] [employer] [facility] 04-07-2022 14:05-0400 Body weight 94.8 kg Manish Shea MD Work Phone: [facility] [employer] [facility] 04-07-2022 14:05-0400 Diastolic blood pressure 88 mm[Hg] Manish Shea MD Work Phone: [facility] [employer] [facility] 04-07-2022 14:05-0400 Heart rate 112 /min Manish Shea MD Work Phone: [employer] [facility] 04-07-2022 14:05-0400 Respiratory rate 16 /min Manish Shea MD Work Phone: [facility] [employer] [facility] 04-07-2022 14:05-0400 Systolic blood pressure 126 mm[Hg] Manish Shea MD Work Phone: [facility] 02-03-2022 14:54-0400 Body mass index (BMI) [Ratio] 32.32 kg/m2 Manish Shea MD Work Phone: [employer] [facility] 02-03-2022 14:54-0400 Body weight 93.62 kg Manish Shea MD Work Phone: [facility] 02-03-2022 14:54-0400 Diastolic blood pressure 65 mm[Hg] Manish Shea MD Work Phone: [facility] [employer] [facility] 02-03-2022 14:54-0400 Heart rate 112 /min Manish Shea MD Work Phone: [facility] [employer] [facility] 02-03-2022 14:54-0400 Systolic blood pressure 141 mm[Hg] Manish Shea MD Work Phone: [facility] 12-09-2021 14:23-0400 Body height 170.2 cm Manish Shea MD Work Phone: [facility] [employer] [facility] 12-09-2021 14:23-0400 Body mass index (BMI) [Ratio] 33.04 kg/m2 Manish Shea MD Work Phone: [facility] 12-09-2021 14:23-0400 Body weight 95.71 kg Manish Shea MD Work Phone: [facility] 12-09-2021 14:23-0400 Diastolic blood pressure 80 mm[Hg] Manish Shea MD Work Phone: [facility] 12-09-2021 14:23-0400 Respiratory rate 16 /min Manish Shea MD Work Phone: [facility] 12-09-2021 14:23-0400 Systolic blood pressure 120 mm[Hg] Manish Shea MD Work Phone: [facility] 10-28-2021 13:11-0400 Body height 170.2 cm Safia Anna [employer]POILAGE WORKER Work Phone: [facility] [employer] [facility] 10-28-2021 13:11-0400 Body mass index (BMI) [Ratio] 33.88 kg/m2 Safia [place] SPOILAGE WORKER Work Phone: [facility] 10-28-2021 13:11-0400 Body weight 98.16 kg Safia [place] SPOILAGE WORKER Work Phone: [facility] 10-28-2021 13:11-0400 Diastolic blood pressure 80 mm[Hg] Safia Anna SPOILAGE WORKER Work Phone: [facility] 10-28-2021 13:11-0400 Heart rate 93 /min Safia [place] SPOILAGE WORKER Work Phone: [facility] 10-28-2021 13:11-0400 Respiratory rate 18 /min Safia Castillo CNP Work Phone: [facility] 10-28-2021 13:11-0400 Systolic blood pressure 118 mm[Hg] Safia Castillo CNP Work Phone: [facility] 06-02-2021 12:15-0500 Diastolic blood pressure 88 mm[Hg] Kavita Qureshi SPOILAGE WORKER Work Phone: [facility] Work Phone: 06-02-2021 12:15-0500 Systolic blood pressure 132 mm[Hg] Kavita Hardeepalina JIMENEZ Work Phone: [facility] Work Phone: 06-02-2021 11:28-0500 Body height 168.91 cm Kavita Hardeepalina JIMENEZ Work Phone: [facility] Work Phone: 06-02-2021 11:28-0500 Body mass index (BMI) [Ratio] 31.2 kg/m2 Kavita Qureshi TONY Work Phone: [facility] Work Phone: 06-02-2021 11:28-0500 Body surface area Derived from formula 1.99 m2 Kavita Hardeepalina JIMENEZ Work Phone: [facility] Work Phone: 06-02-2021 11:28-0500 Body temperature 96.6 [degF] Kavita Qureshi SPOILAGE WORKER Work Phone: [facility] Work Phone: 06-02-2021 11:28-0500 Body weight 89 kg Kavita Qureshi TONY Work Phone: [facility] Work Phone: 06-02-2021 11:28-0500 Diastolic blood pressure 78 mm[Hg] Kavita Qureshi CNP Work Phone: [facility] Work Phone: 06-02-2021 11:28-0500 Heart rate 118 /min Kavita Qureshi CNP Work Phone: [facility] Work Phone: 06-02-2021 11:28-0500 SaO2% (BldA) [Mass fraction] 96 % Kavita Qureshi CNP Work Phone: [facility] Work Phone: 06-02-2021 11:28-0500 Systolic blood pressure 142 mm[Hg] Kavita Qureshi CNP Work Phone: [facility] Work Phone: 05-18-2021 16:27-0400 Body height 168.91 cm Kavita Qureshi CNP Work Phone: [facility] Work Phone: 05-18-2021 16:27-0400 Body mass index (BMI) [Ratio] 31.2 kg/m2 Kavita Qureshi CNP Work Phone: [facility] Work Phone: 05-18-2021 16:27-0400 Body surface area Derived from formula 1.99 m2 Kavita Qureshi CNP Work Phone: [facility] Work Phone: 05-18-2021 16:27-0400 Body temperature 97.6 [degF] Kavita Qureshi CNP Work Phone: [facility] Work Phone: 05-18-2021 16:27-0400 Body weight 88.91 kg Kavita Qureshi CNP Work Phone: [facility] Work Phone: 05-18-2021 16:27-0400 Diastolic blood pressure 76 mm[Hg] Kavita Qureshi CNP Work Phone: [facility] Work Phone: 05-18-2021 16:27-0400 Heart rate 120 /min Kavita Qureshi CNP Work Phone: [facility] Work Phone: 05-18-2021 16:27-0400 Respiratory rate 20 /min Kavita Qureshi CNP Work Phone: [facility] Work Phone: 05-18-2021 16:27-0400 SaO2% (BldA) [Mass fraction] 95 % Kavita Qureshi CNP Work Phone: [facility] Work Phone: 05-18-2021 16:27-0400 Systolic blood pressure 136 mm[Hg] Kavita Qureshi CNP Work Phone: [facility] Work Phone: 04-21-2021 10:31-0400 Body height 168.91 cm Kavita Qureshi CNP Work Phone: [facility] Work Phone: 04-21-2021 10:31-0400 Body mass index (BMI) [Ratio] 29.3 kg/m2 Kavita Qureshi CNP Work Phone: [facility] Work Phone: 04-21-2021 10:31-0400 Body surface area Derived from formula 1.94 m2 Kavita Qureshi CNP Work Phone: [facility] Work Phone: 04-21-2021 10:31-0400 Body temperature 97.4 [degF] Kavita Qureshi CNP Work Phone: [facility] Work Phone: 04-21-2021 10:31-0400 Body weight 83.73 kg Kavita Qureshi CNP Work Phone: [facility] Work Phone: 04-21-2021 10:31-0400 Diastolic blood pressure 76 mm[Hg] Kavita Qureshi SPOILAGE WORKER Work Phone: [facility] Work Phone: 04-21-2021 10:31-0400 Heart rate 107 /min Kavita Qureshi CNP Work Phone: [facility] Work Phone: 04-21-2021 10:31-0400 SaO2% (BldA) [Mass fraction] 96 % Kavita Qureshi CNP Work Phone: [facility] Work Phone: 04-21-2021 10:31-0400 Systolic blood pressure 124 mm[Hg] Kavita Qureshi CNP Work Phone: [facility] Work Phone: 04-16-2021 07:30-0400 Body temperature 98.01 [degF] Reji Rondon MD Work Phone: [facility] Work Phone: 04-16-2021 07:30-0400 Diastolic blood pressure 84 mm[Hg] Reji Rondon MD Work Phone: [facility] Work Phone: 04-16-2021 07:30-0400 Heart rate 99 /min Reji Rondon MD Work Phone: [facility] Work Phone: 04-16-2021 07:30-0400 Respiratory rate 16 /min Reji Rondon MD Work Phone: [facility] Work Phone: 04-16-2021 07:30-0400 SaO2% (BldA) [Mass fraction] 97 % Reji Rondon MD Work Phone: [facility] Work Phone: 04-16-2021 07:30-0400 Systolic blood pressure 164 mm[Hg] Reji Rondon MD Work Phone: [facility] Work Phone: 04-16-2021 06:00-0400 Body mass index (BMI) [Ratio] 30.62 kg/m2 Reji Rondon MD Work Phone: [facility] Work Phone: 04-16-2021 06:00-0400 Body weight 83.46 kg Reji Rondon MD Work Phone: [facility] Work Phone: 04-14-2021 08:09-0400 Body height 165.1 cm Reji Rondon MD Work Phone: [employer] Work Phone: Encounters Encounter Date Encounter Type Care Provider Facility Start: 03-31-2025 End: 03-31-2025 ambulatory Ivana Velasquez MD [facility] Start: 03-10-2025 End: 03-10-2025 ambulatory Ivana Velasquez MD [facility] Start: 03-03-2025 End: 03-03-2025 FQHC visit, estab pt Kavita Qureshi CNP Work Phone: [facility] Work Phone: Start: 02-26-2025 End: 02-26-2025 Emergency department patient visit Bekah Lan MD Work Phone: [facility] Emergency Department Comment on above: Dehydration (Primary Dx); Nausea and vomiting, unspecified vomiting type Start: 02-17-2025 End: 02-17-2025 ambulatory Ivana Velasquez MD [facility] Start: 01-13-2025 End: 01-13-2025 ambulatory Ivana Velasquez MD [facility] Start: 12-31-2024 End: 12-31-2024 FQ visit, estab pt Kavita Qureshi CNP Work Phone: [facility] Work Phone: Start: 12-06-2024 End: 12-08-2024 ambulatory [facility]AVITA L [facility] Start: 12-06-2024 End: 12-08-2024 Subsequent hospital visit by physician [facility] Comment on above: Lumbar back pain; Spondylolisthesis of thoracic region Start: 11-27-2024 End: 11-27-2024 FQ visit, estab pt Kavita Qureshi CNP Work Phone: [facility] Work Phone: Start: 10-24-2024 End: 10-24-2024 FQ visit, estab pt Kavita Qureshi CNP Work Phone: [facility] Work Phone: Start: 10-17-2024 End: 10-19-2024 ambulatory [facility] Start: 10-17-2024 End: 10-19-2024 Subsequent hospital visit by physician Javier Branham DO Work Phone: [facility] Non-Invasive Cardiology Comment on above: Tachycardia; Abnormal EKG; Heart murmur Start: 10-14-2024 End: 10-14-2024 ambulatory [facility]ITA L HARDEEP [facility] Start: 10-14-2024 End: 10-14-2024 Subsequent hospital visit by physician Fabiana Reynolds PT [facility] Physical Therapy Comment on above: Arrived Start: 10-11-2024 End: 10-11-2024 ambulatory KAVITA L [facility]EP [facility] Start: 10-11-2024 End: 10-11-2024 Subsequent hospital visit by physician Darren Lazo PTA [facility] Physical Therapy Comment on above: Arrived Start: 10-08-2024 End: 10-08-2024 ambulatory [facility] Start: 10-08-2024 End: 10-08-2024 Subsequent hospital visit by physician Fabiana Reynolds PT [facility] Comment on above: Arrived Start: 09-29-2024 End: 09-29-2024 Emergency department patient visit Cris Herring MD Work Phone: [facility] Emergency Department Comment on above: Strain of lumbar reg ion, initial encounter (Primary Dx) Start: 09-19-2024 End: 09-19-2024 FQHC visit, estab pt Sally Miles CNP Work Phone: [facility] Work Phone: Start: 09-09-2024 End: 09-09-2024 Emergency department patient visit Mallory Aleman MD Work Phone: [facility] Emergency Department Comment on above: Tachycardia (Primary Dx); Mid back pain Start: 09-04-2024 End: 09-04-2024 Emergency department patient visit Mallory Aleman MD Work Phone: [facility] Emergency Department Comment on above: Dehydration (Primary Dx); Hyperglycemia due to diabetes mellitus (HCC) Start: 09-03-2024 End: 09-03-2024 Subsequent hospital visit by physician Fabiana Reynolds PT [facility] Start: 09-02-2024 End: 09-02-2024 Subsequent hospital visit by physician Fabiana Reynolds PT [facility] Start: 09-02-2024 End: 09-02-2024 Emergency department patient visit Chaim Del Toro MD Work Phone: [facility] Emergency Department Comment on above: Tachycardia (Primary Dx); Dehydration Start: 09-02-2024 End: 09-02-2024 ambulatory Kavita Qureshi SPOILAGE WORKER Work Phone: [facility] Work Phone: Start: 08-30-2024 End: 09-01-2024 [facility]ulatory [facility] Start: 08-30-2024 End: 09-01-2024 Subsequent hospital visit by physician Laura Ultrasound Room [facility] Ultrasound Comment on above: Generalized abdomina l pain Start: 08-22-2024 End: 08-22-2024 Subsequent hospital visit by physician Fabiana Reynolds PT [facility] Start: 08-21-2024 End: 08-21-2024 Emergency department patient visit Chaim Del Toro MD Work Phone: [facility] Emergency Department Comment on above: Hypotension due to h ypovolemia (Primary Dx); Tachycardia Start: 08-21-2024 End: 08-21-2024 Emergency department patient visit KAVITA [facility] Start: 08-21-2024 End: 08-23-2024 ambulatory Kavita Bayer SPOILAGE WORKER Work Phone: [facility] Non-Invasive Cardiology Comment on above: Tachycardia Start: 08-21-2024 End: 08-21-2024 Patient encounter procedure Kavita Qureshi SPOILAGE WORKER Work Phone: [facility] Work Phone: Start: 08-20-2024 End: 08-20-2024 Subsequent hospital visit by physician Junior Wayne PTA [facility] Start: 08-20-2024 ambulatory [facility] Start: 08-17-2024 End: 08-17-2024 Emergency department patient visit Lukas Lopez MD Work Phone: [facility] Emergency Department Comment on above: Strain of thoracic b ack region (Primary Dx) Start: 08-15-2024 End: 08-15-2024 ambulatory [facility]ITA [facility] Start: 08-15-2024 End: 08-15-2024 Subsequent hospital visit by physician Junior Wayne PTA [facility] Comment on above: Arrived Start: 08-13-2024 End: 08-13-2024 ambulatory [facility] Start: 08-13-2024 End: 08-13-2024 Subsequent hospital visit by physician Fabiana Reynolds PT [facility] Comment on above: Arrived Start: 08-12-2024 End: 08-14-2024 ambulatory [facility] Start: 08-12-2024 End: 08-14-2024 Subsequent hospital visit by physician Nevaeh Additional Xray [facility] Radiology Comment on above: Pain in thoracic spi ne Start: 08-08-2024 End: 08-08-2024 Subsequent hospital visit by physician Samira Yoo [facility] Start: 08-08-2024 End: 08-08-2024 FQHC visit, estab pt Kavita Qursehi CNP Work Phone: [facility] Work Phone: Start: 08-08-2024 End: 08-08-2024 Patient encounter procedure Kavita Qureshi CNP Work Phone: [facility] Work Phone: Start: 08-06-2024 End: 08-06-2024 Subsequent hospital visit by physician Fabiana Reynolds PT [facility] Start: 08-04-2024 End: 08-04-2024 Emergency department patient visit Namita Rizzo MD Work Phone: [facility] Emergency Department Comment on above: Acute midline low ba ck pain without sciatica (Primary Dx) Start: 08-01-2024 End: 08-01-2024 ambulatory [facility] Start: 08-01-2024 End: 08-01-2024 Subsequent hospital visit by physician Samira Yoo [facility] Comment on above: Arrived Start: 07-30-2024 End: 07-30-2024 [facility] Start: 07-30-2024 End: 07-30-2024 Subsequent hospital visit by physician Samira Yoo [facility] Comment on above: Arrived Start: 07-25-2024 End: 07-25-2024 ambulatory KAVITA L HARDEEP [facility] Start: 07-25-2024 End: 07-25-2024 Subsequent hospital visit by physician Samira Yoo [facility] Physical Therapy Comment on above: Arrived Start: 07-18-2024 End: 07-18-2024 ambulatory KAVITA L HARDEEPALINA [facility] Start: 07-18-2024 End: 07-18-2024 Subsequent hospital visit by physician Darren Lazo MACHINE BINDING FOLDER [facility] Comment on above: Arrived Start: 07-16-2024 End: 07-16-2024 Subsequent hospital visit by physician Judy Miller PT [facility] Start: 07-04-2024 End: 07-04-2024 FQ visit, estab pt Kavita Qureshi CNP Work Phone: [facility] Work Phone: Start: 06-27-2024 End: 06-27-2024 ambulatory [facility] Start: 06-27-2024 End: 06-27-2024 Subsequent hospital visit by physician Judy Miller PT [facility] Comment on above: Arrived Start: 06-06-2024 End: 06-06-2024 ambulatory Kavita Qureshi CNP Work Phone: [facility] Work Phone: Start: 06-06-2024 End: 06-06-2024 Encounter for preprocedural laboratory examination Kavita Qureshi CNP Work Phone: [facility] Work Phone: Start: 06-06-2024 End: 06-06-2024 Patient encounter procedure Kavita Qureshi CNP Work Phone: [facility] Work Phone: Start: 06-06-2024 End: 06-06-2024 General Juan Choudhary OIL PIPELINE DISPATCHER Work Phone: [facility] Work Phone: Start: 06-06-2024 End: 06-06-2024 Patient encounter procedure Kavita Qureshi CNP Work Phone: [facility] Work Phone: Start: 09-02-2022 [facility]ulatory [facility] Start: 07-05-2022 End: 07-05-2022 Emergency department patient visit Talita Crouch DO Work Phone: [facility] ED Comment on above: Acute sinusitis, rec urrence not specified, unspecified location (Primary Dx) Start: 07-04-2022 End: 07-04-2022 Subsequent hospital visit by physician [facility] Laboratory Start: 06-21-2022 End: 06-22-2022 ambulatory KAVITA [facility]DE[facility] Start: 06-21-2022 End: 06-22-2022 Emergency department patient visit Irvin Magana MD Work Phone: [facility] Comment on above: DKA (diabetic ketoac idosis) Start: 04-07-2022 ambulatory [facility] Start: 04-07-2022 End: 04-07-2022 Office outpatient visit 25 minutes Manish Shea MD Work Phone: [facility] Comment on above: Uncontrolled type 2 diabetes mellitus with hyperglycemia (Primary Dx) Start: 03-29-2022 End: 03-29-2022 Subsequent hospital visit by physician [facility] Start: 03-23-2022 ambulatory KAVITA [facility]DE[facility] Start: 02-22-2022 End: 02-22-2022 Subsequent hospital visit by physician [facility] Laboratory Comment on above: Dysuria; Acute cystitis with hematuria Start: 02-03-2022 ambulatory KAVITA [facility]DEEP [facility] Start: 02-03-2022 End: 02-03-2022 Office outpatient visit 25 minutes Manish Shea MD Work Phone: [facility] Comment on above: Uncontrolled type 2 diabetes mellitus with hyperglycemia (Primary Dx) Start: 12-09-2021 ambulatory KAVITA [facility]DEEP [facility] Start: 12-09-2021 End: 12-09-2021 Office outpatient visit 25 minutes Manish Shea MD Work Phone: [facility] Comment on above: Uncontrolled type 2 diabetes mellitus with hyperglycemia (Primary Dx) Start: 11-18-2021 ambulatory KAVITA [facility]DE[facility] Start: 10-28-2021 ambulatory [facility] Start: 10-28-2021 End: 10-28-2021 Office outpatient visit 25 minutes Safia Mazariegosjimmy JIMENEZ Work Phone: [facility] Endocrinology Comment on above: Uncontrolled type 2 diabetes mellitus with hyperglycemia (Primary Dx); Mixed hyperlipidemia; Obesity (BMI 30.0-34.9); [place] syndrome Start: 10-11-2021 End: 10-11-2021 Subsequent hospital visit by physician [facility] Start: 09-30-2021 ambulatory [facility] Start: 08-11-2021 End: 08-11-2021 Subsequent hospital visit by physician [facility] Start: 06-02-2021 End: 06-02-2021 FQHC visit, estab pt Kavita Hardeep JIMENEZ Work Phone: [facility] Work Phone: Start: 06-02-2021 End: 06-02-2021 General Kavita Hardeep JIMENEZ Work Phone: [facility] Work Phone: Start: 05-18-2021 End: 05-18-2021 FQHC visit, estab pt Kavita Hardeep JIMENEZ Work Phone: [facility] Work Phone: Start: 04-21-2021 End: 04-21-2021 FQHC visit, estab pt Suha Pinedo [facility] Work Phone: [facility] Work Phone: Start: 04-21-2021 End: 04-21-2021 FQHC visit new patient Kavita Bayalina JIMENEZ Work Phone: [facility] Work Phone: Start: 04-13-2021 End: 04-16-2021 Evaluation and management of inpatient Reji Rondon MD Work Phone: [facility] Comment on above: Diabetic ketoacidosi s without coma associated with diabetes mellitus due to underlying condition (HCC) (Primary Dx); Type 2 diabetes mellitus with complication, without long-term current use of insulin (HCC); Nephrolithiasis Start: 02-11-2020 End: 02-13-2020 Subsequent hospital visit by physician [facility] Cat Scan Room [facility] Laboratory Comment on above: Renal colic Start: 02-11-2020 End: 02-11-2020 Subsequent hospital visit by physician [facility] Lab Drawing Room [facility] Laboratory Comment on above: Renal colic End: 02-27-2017 Patient encounter status Reji Rondon MD Work Phone: [facility] Work Phone: Procedures Date Procedure Procedure [...] dip stick/tabl et rgnt auto w/o microscopy Chami Del Toro MD Work Phone: Start: 09-02-2024 [...] user cad cap copd pv dm Kavita Hardeep SPOILAGE WORKER Work Phone: Start: 09-02-2024 Most recent diastoli c blood pressure < 80 mm hg Kavita Qureshi SPOILAGE WORKER Work Phone: Start: 09-02-2024 Most recent systolic blood pressure <130 mm hg Kavita Hardeep SPOILAGE WORKER Work Phone: Start: 08-30-2024 Us retroperitoneal r eal time w/image complete Kavita Qureshi FACIAL OPERATOR - SENIOR ELECTRICAL CONTROLS ENGINEER Work Phone: Start: 08-21-2024 Drug tst prsmv instr mnt chem analyzers pr date Ame Jarrellbal DO Work Phone: Start: 08-21-2024 Urnls dip stick/tabl et rgnt auto w/o microscopy Cahim Del Toro MD Work Phone: Start: 08-21-2024 [...] cad cap copd pv dm Kavita Qureshi SPOILAGE WORKER Work Phone: Start: 08-21-2024 Most recent diastoli c blood pressure < 80 mm hg Kavita Qureshi SPOILAGE WORKER Work Phone: Start: 08-21-2024 Most recent systolic blood pressure <130 mm hg Kavita Qureshi SPOILAGE WORKER Work Phone: Start: 08-12-2024 End: 08-12-2024 Radex spine cervical 4 or 5 views Kavita Qureshi FACIAL OPERATOR - SENIOR ELECTRICAL CONTROLS ENGINEER Work Phone: Start: 08-08-2024 Creatinine other source Kavita Qureshi CNP Work Phone: Start: 08-08-2024 Current tobacco non- user cad cap copd pv dm Kavita Qureshi CNP Work Phone: Start: 08-08-2024 Drug [...] blood pressure <130 mm hg Kavita Hardeep SPOILAGE WORKER Work Phone: Start: 06-06-2024 Current tobacco non- user cad cap copd pv dm Kavita Bayer SPOILAGE WORKER Work Phone: Start: 06-06-2024 Most recent diastoli c blood pressure < 80 mm hg Kavita Bayer SPOILAGE WORKER Work Phone: Start: 06-06-2024 Most recent systolic blood pressure <130 mm hg Kavita Bayer SPOILAGE WORKER Work Phone: Start: 07-05-2022 Gluc bld gluc mntr d ev cleared fda spec home use Talita Chichi Willa Work Phone: Start: 07-04-2022 Comprehensive metabolic panel Manish Shea MD Work Phone: Start: 07-04-2022 Lipid panel Manish granados MD Work Phone: Start: 07-04-2022 PATIENT FASTING? Manish Shea MD Work Phone: Start: 07-04-2022 Urine albumin quantitative Manish Shea MD Work Phone: Start: 06-22-2022 End: 06-22-2022 Renal function panel Brijesh Taveras FACIAL OPERATOR-SPOILAGE WORKER Work Phone: Start: 06-22-2022 End: 06-22-2022 Renal function panel Brijesh Taveras FACIAL OPERATOR-SPOILAGE WORKER Work Phone: Start: 06-22-2022 Gluc bld gluc [...] with white cell differential, automated Brijesh Taveras FACIAL OPERATOR-SPOILAGE WORKER Work Phone: Start: 06-22-2022 End: 06-22-2022 Renal [...] cleared fda spec home use Kavita Qureshi SPOILAGE WORKER Work Phone: Start: 05-18-2021 FQHC visit, estab pt Ca ssie Hardeep SPOILAGE WORKER Work Phone: Start: 05-18-2021 Gluc bld gluc mntr d ev cleared fda spec home use Kavita Qureshi SPOILAGE WORKER Work Phone: Start: 05-18-2021 Most recent diastoli c blood pressure 80-89 mm hg Kavita Qureshi SPOILAGE WORKER Work Phone: Start: 05-18-2021 Most recent systolic blood press 130-139mm hg Kavita Qureshi SPOILAGE WORKER Work Phone: Start: 04-21-2021 Antibody hiv-1&hiv-2 single [...] Basic metabolic pane l calcium total Rosangela Gongora Work Phone: Start: 02-11-2020 Blood count complete [...] CKD 3-4, OR last GFR 15-59) [facility] Start: 09-09-2025 GFR test (Diabetes, CKD 3-4, OR last GFR 15-59) GFR test (Diabetes, CKD 3-4, OR last GFR 15-59) [facility] Start: 09-04-2025 GFR test (Diabetes, CKD 3-4, OR last GFR 15-59) GFR test (Diabetes, CKD 3-4, OR last GFR 15-59) [facility] Start: 09-02-2025 GFR test (Diabetes, CKD 3-4, OR last GFR 15-59) GFR test (Diabetes, CKD 3-4, OR last GFR 15-59) [facility] Start: 09-02-2025 Screening for malignant neoplasm of lung Lung Cancer Screening &/or Counseling [facility] Start: 08-21-2025 GFR test (Diabetes, CKD 3-4, OR last GFR 15-59) GFR test (Diabetes, CKD 3-4, OR last GFR 15-59) [facility] Start: 03-03-2025 End: 03-03-2025 Patient education based on identified need [facility] Start: 02-14-2025 Influenza vaccination [facility] Start: 01-27-2025 End: 01-27-2025 Patient encounter procedure 01/27/2025 9:20 AM EDT Office Visit [facility] [address] [place] [address] Waylon Moy MD [address] [place] [address] [place] [id number] Postherpetic polyneuropathy [facility] Comment on above: Postherpetic polyneuropathy Start: 12-31-2024 FQHC visit, estab pt Medical Established Patient [facility] Work Phone: Start: 12-31-2024 End: 12-31-2024 Patient education based on identified need [facility] Start: 11-27-2024 [facility] Work Phone: Comment on above: Note: Please make a referral to: Start: 11-27-2024 End: 11-27-2024 Patient education based on identified need [facility] Start: 11-21-2024 FQ visit, estab pt Medical Established Patient [facility] Work Phone: Start: 11-19-2024 End: 11-19-2024 Patient encounter procedure 11/19/2024 11:00 AM EDT Office Visit [facility] Loan Supervisor [address] [place] [address] Javier Branham DO [address] [place] [address] 6 week f/u no testing [facility] Loan Supervisor Comment on above: 6 week f/u no testing Start: 10-24-2024 End: 10-24-2024 Patient education based on identified need [facility] Start: 10-17-2024 End: 10-17-2024 Patient encounter procedure 10/17/2024 10:00 AM EDT [facility] Cardiology [address] [place] [address] Javier Branham DO [address] [place] [address] EPIC//PT [facility] Non-Invasive Cardiology Comment on above: EPIC//PT Start: 10-14-2024 End: 10-14-2024 Patient encounter procedure 10/14/2024 10:30 AM EDT Appointment [facility] Physical Therapy [address] [place] [address] Fabiana Reynolds, PT *Caresource 9 of 30 Muscle Weakness [facility] Comment on above: *[employer]aresource 9 of 30 Muscle Weakness Start: 10-11-2024 End: 10-11-2024 Patient encounter procedure 10/11/2024 10:30 AM EDT Appointment [facility] [address] [place] [address] Darren Lazo PTA *[employer]aresource 8 of 30 Muscle Weakness [facility] Comment on above: *[employer]aresource 8 of 30 Muscle Weakness Start: 10-01-2024 End: 10-01-2024 Patient encounter procedure 10/01/2024 10:30 AM EDT Office Visit [facility] [employer] Super[employer] [address] [place] [address] Javier Branham DO [address] [place] [address] New patient--Referral from [facility] and [facility] ED --Elevated BP, tachycardia, --(saw Dr. Hsieh years ago for a surgery clearance-)-no other buncher hand-- f/u ED --f/u monitor ordered by ED--EKG done [facility] Comment on above: New patient--Referral from [facility] and [facility] ED --Elevated BP, tachycardia, --(saw Dr. Hsieh years ago for a surgery clearance-)-no other buncher hand-- f/u ED --f/u monitor ordered by ED--EKG done Start: 09-29-2024 US Retroperitoneal Compl. (Renal/Bladder) (21575) [facility] Start: 09-19-2024 End: 09-19-2024 Patient education based on identified need [facility] Start: 09-18-2024 US Retroperitoneal Compl. (Renal/Bladder) (69641) [facility] Start: 09-10-2024 FQHC visit, estab pt Medical Established Patient [facility] Work Phone: Start: 09-07-2024 [facility] Start: 09-04-2024 FQHC visit, estab pt Medical Established Patient [facility] Work Phone: Start: 09-03-2024 End: 09-03-2024 Patient encounter procedure [facility] Comment on above: *Caresource 8 of 30 Muscle Weakness *[employer]aresource 7 of 30 Muscle Weakness Start: 09-02-2024 End: 09-02-2024 Patient encounter procedure 09/02/2024 2:00 PM EST Appointment [facility] [address] [place] [address] Fabiana Reynolds, PT *Caresource 7 of 30 Muscle Weakness [facility] Comment on above: *[employer]aresource 7 of 30 Muscle Weakness Start: 09-02-2024 End: 09-02-2024 Patient education based on identified need [facility] Start: 09-02-2024 Open Access - Established [facility] Work Phone: Start: 08-29-2024 End: 08-29-2024 Patient encounter procedure 08/29/2024 1:00 PM EST Appointment [facility] [employer] Ul[facility] [address] [place] [address] media/pt [facility] Comment on above: media/pt Start: 08-22-2024 End: 08-22-2024 Patient encounter procedure [facility] Comment on above: *Caresource 8 of 30 Muscle Weakness *[employer]aresource 7 of 30 Muscle Weakness Start: 08-21-2024 End: 08-21-2024 Patient education based on identified need [facility] Start: 08-20-2024 End: 08-20-2024 Patient encounter procedure [facility] Comment on above: *[employer]aresource 7 of 30 Muscle Weakness Start: 08-15-2024 End: 08-15-2024 Patient encounter procedure 08/15/2024 1:30 PM EST Appointment [facility] [address] [place] [address] Junior Wayne PTA [facility] Start: 08-15-2024 Subsequent hospital visit by physician 08/15/2024 1:30 PM EST Hospital Encounter [facility] [address] [place] [address] Junior Wayne PTA [facility] Start: 08-13-2024 End: 08-13-2024 Patient encounter procedure 08/13/2024 3:30 PM EST Appointment [facility] [address] [place] [address] Fabiana Reynolds, PT *Caresource 5 of 30 Muscle Weakness [facility] Comment on above: *[employer]aresource 5 of 30 Muscle Weakness Start: 08-08-2024 End: 08-08-2024 Patient education based on identified need [facility] Start: 08-08-2024 FQ visit, estab pt [facility] Comment on above: Note: Please make a referral to:[facility] Darins Gordon Start: 08-08-2024 End: 08-08-2024 Patient encounter [...] Appointment [facility] [address] [place] [address] Samira Yoo [facility] Start: 07-25-2024 End: 07-25-2024 Patient encounter procedure 07/25/2024 1:30 PM EST Appointment [facility] [address] [place] [place] [address] Samira Yoo [facility] Start: 07-04-2024 FQ visit, estab pt Medical Established Patient [facility] Work Phone: Start: 07-04-2024 End: 07-04-2024 Patient education based on identified need [facility] Start: 07-04-2024 End: 07-04-2024 Patient encounter procedure 07/04/2024 1:45 PM EST Appointment [facility] Physical Therapy [address] [place] [address] Judy Miller PT Muscle Weakness [facility] Comment on above: Muscle Weakness Start: 07-02-2024 End: 07-02-2024 Patient encounter procedure 07/02/2024 1:00 PM EST Appointment [facility] Physical Therapy [address] [facility] [place] [address] Chandni Julien Muscle Weakness [facility] Comment on above: Muscle Weakness Start: 06-06-2024 End: 06-06-2024 Patient education based on identified need [facility] Start: 06-06-2024 CBC W Auto Differential panel - Blood [facility] Comment on above: Note: Please make a referral to:PT [facility] rehab and wellness Fax [phone] Note: Please make a referral to:Dr. Michael Hsieh Start: 06-06-2024 Thyrotropin [Units/volume] in Serum or Plasma TSH+Free T4 [facility] Start: 03-17-2024 COVID-19 Vaccine ( season) COVID-19 Vaccine ( season) [facility] Start: 03-17-2024 COVID-19 Vaccine ( season) COVID-19 Vaccine ( season) [facility] Start: 02-15-2024 Influenza vaccination Flu vaccine (#1) [facility] Start: 10-24-2023 Screening for malignant neoplasm of cervix Cervical cancer screen [facility] [place], [place] Start: 07-04-2023 GFR test (Diabetes, CKD 3-4, OR last GFR 15-59) GFR test (Diabetes, CKD 3-4, OR last GFR 15-59) [facility] Start: 07-04-2023 Hemoglobin A1c measurement A1C test (Diabetic or Prediabetic) [facility] Start: 07-04-2023 Lipid panel Lipids [facility] Start: 07-04-2023 Urine screening for protein [facility] Start: 03-29-2023 [facility] Start: 03-29-2023 Urine screening for protein Diabetic microalbuminuria test [facility] Start: 10-08-2022 Creatinine measurement Creatinine monitoring [facility] Start: 10-08-2022 Lipid panel [facility] Start: 10-08-2022 Potassium monitoring Potassium monitoring [facility] [employer] Start: 10-08-2022 Urine screening for protein Diabetic microalbuminuria test [facility] Start: 10-02-2022 Hemoglobin A1c measurement A1C test (Diabetic or Prediabetic) [facility] Start: 07-07-2022 End: 07-07-2022 Patient encounter procedure 07/07/2022 Office Visit Endocrinology, Diabetes & Metabolism Manish Shea MD [address] [place] [address] [facility] Endocrinology Start: 06-28-2022 Hemoglobin A1c measurement A1C test (Diabetic or Prediabetic) [facility] Start: 04-16-2022 Creatinine measurement Creatinine monitoring [facility] Start: 04-16-2022 Potassium monitoring Potassium monitoring [facility] Start: 04-07-2022 End: 04-07-2022 Patient encounter procedure 04/07/2022 Office Visit Endocrinology, Diabetes & Metabolism Manish Shea MD [address] [place] [address] [facility] Endocrinology Start: 03-17-2022 Influenza vaccination [facility] Start: 02-14-2022 Influenza vaccination Flu vaccine (#1) [facility] Start: 02-03-2022 End: 02-03-2022 Patient encounter procedure 02/03/2022 Office Visit Endocrinology, Diabetes & Metabolism Manish Shea MD [address] [place] [address] [facility] Endocrinology Start: 01-08-2022 Hemoglobin A1c measurement A1C test (Diabetic or Prediabetic) [facility] Start: 12-09-2021 End: 12-09-2021 Patient encounter procedure 12/09/2021 Office Visit Endocrinology, Diabetes & Metabolism Manish Shea MD [address] [place] [address] [facility] Endocrinology Start: 10-28-2021 End: 10-28-2022 CORTISOL CORTISOL Lab Routine Alisia syndrome Expected: 10/28/2021, Expires: 10/28/2022 [facility] Comment on above: Expected: 10/28/2021, Expires: Start: 10-23-2021 Screening for malignant neoplasm of cervix [facility] Start: 07-14-2021 Hemoglobin A1c measurement A1C test (Diabetic or Prediabetic) [facility] Start: 07-02-2021 Other Diagnostic Test: [facility] Start: 06-30-2021 FQHC visit, estab pt Medical Established Patient [facility] Work Phone: Start: 06-02-2021 FQHC visit, estab pt Medical Established Patient [facility] Work Phone: Start: 06-02-2021 End: 06-02-2021 Patient education based on identified need [facility] Start: 05-21-2021 Cardiovascular Stress Test (18914) [facility] Start: 05-18-2021 End: 05-18-2021 Patient education based on identified need [facility] Start: 05-18-2021 End: 05-18-2021 Provider instructions for treatment Maintain a healthy diet [facility] Start: 05-05-2021 FQHC visit, estab pt Medical Established Patient [facility] Work Phone: Start: 04-23-2021 End: 04-23-2021 Patient encounter procedure 04/23/2021 Office Visit Urology Mason Monterroso MD [address], [address] [place] [address] [phone] [facility] UROLOGY [facility] Start: 04-22-2021 [facility] Start: 04-21-2021 Endocrinology [facility] Work Phone: Comment on above: Note: Please make a referral to:[facility] Start: 04-21-2021 End: 04-21-2021 Patient education based on identified need [facility] Start: 04-21-2021 End: 04-21-2021 Provider instructions for treatment Maintain a healthy diet [facility] Start: 03-17-2021 Influenza vaccination Flu vaccine (#1) [facility] Start: 02-24-2021 Screening for malignant neoplasm of cervix HPV (without or with Pap) [facility] Start: 03-17-2020 Influenza vaccination Flu vaccine (#1) [place] Start: 03-04-2020 End: 03-04-2020 Office Visit 03/04/2020 Office Visit General Surgery Robyn Coronado I, DO [address] [place] [address] [facility] GENERAL SURGERY [facility] Start: 10-18-2019 HbA1c (Bld) [Mass fraction] A1C test (Diabetic or Prediabetic) [place] Start: 06-16-2019 Diabetic microalbuminuria test Diabetic microalbuminuria test [place] Start: 06-16-2019 Lipid panel Lipid screen [facility] Start: 06-16-2019 Urine screening for protein Diabetic microalbuminuria test [facility] Start: 02-28-2018 Diabetic foot examination Diabetic foot exam [facility] Start: 01-04-2018 Screening for malignant neoplasm of breast Breast cancer screen [facility] Start: 01-04-2018 Screening for malignant neoplasm of colon Colon cancer screen colonoscopy [place] Start: 01-04-2018 Screening for malignant neoplasm of lung [facility] Start: 01-04-2018 Shingles Vaccine (1 of 2) Shingles Vaccine (1 of 2) [facility] Start: 01-04-2018 Zoster vaccine hzv live for subcutaneous use ZOSTER (SHINGLES) VACCINE (1 of 2) [facility] Start: 10-22-2016 Screening for malignant neoplasm of breast [facility] Start: 10-15-2014 Diabetic retinal exam Diabetic retinal exam [facility] Start: 10-15-2014 Glaucoma screening Diabetic retinal exam [facility] Start: 01-04-2013 Colonoscopy COLORECTAL CANCER SCREENING DISCUSSION [facility] Start: 01-04-2013 Screening for malignant neoplasm of colon [facility] Start: 2008 Fasting lipid profile LIPID SCREENING [facility] Start: 2008 Lipid panel LIPID SCREENING [facility] Start: 2008 Screening for malignant neoplasm of breast MAMMOGRAM SCREENING DISCUSSION [facility] Start: 2008 Screening mammography MAMMOGRAM SCREENING DISCUSSION [facility] Start: 01-04-1989 Screening for malignant neoplasm of cervix CERVICAL CANCER SCREENING DISCUSSION [facility] Start: 01-04-1987 DTaP/Tdap/Td vaccine (1 - Tdap) DTaP/Tdap/Td vaccine (1 - Tdap) [facility] Start: 01-04-1987 Hepatitis B vaccine (1 of 3 - 19+ 3-dose series) Hepatitis B vaccine (1 of 3 - 19+ 3-dose series) [facility] Start: 01-04-1987 Hepatitis B vaccine (1 of 3 - Risk 3-dose series) Hepatitis B vaccine (1 of 3 - Risk 3-dose series) [facility] Start: 01-04-1987 Pneumococcal 50+ years Vaccine (1 of 2 - PCV) Pneumococcal 50+ years Vaccine (1 of 2 - PCV) [facility] Start: 01-04-1987 Third diphtheria, tetanus and acellular pertussis (DTaP) vaccination TDAP (ADULT) [facility] Start: 01-04-1986 Tetanus vaccination TETANUS [facility] Start: 01-04-1983 HIV screening HIV SCREENING DISCUSSION [facility] Start: 1980 COVID-19 Vaccine (1) COVID-19 Vaccine (1) [facility] Work Phone: Start: 1980 Depression Screen Depression Screen [facility] Start: 01-04-1974 Pneumococcal 0-64 years Vaccine (1 - PCV) Pneumococcal 0-64 years Vaccine (1 - PCV) [facility] Start: 01-04-1974 Pneumococcal 0-64 years Vaccine (1 of 1 - PPSV23) Pneumococcal 0-64 years Vaccine (1 of 1 - PPSV23) [facility] [place] Start: 01-04-1974 Pneumococcal 0-64 years Vaccine (1 of 2 - PCV) Pneumococcal 0-64 years Vaccine (1 of 2 - PCV) [facility] Start: 01-04-1974 Pneumococcal 0-64 years Vaccine (1 of 2 - PPSV23) Pneumococcal 0-64 years Vaccine (1 of 2 - PPSV23) [facility] Start: 01-04-1973 COVID-19 VACCINE (#1) COVID-19 VACCINE (#1) [facility] Start: 01-04-1973 COVID-19 Vaccine (1) COVID-19 Vaccine (1) [facility] Start: 1968 COVID-19 VACCINE (#1) COVID-19 VACCINE (#1) [facility] Start: 1968 Hepatitis C antibody, confirmatory test HEPATITIS C VIRUS SCREENING [facility] Start: 1968 Hepatitis C screening HEPATITIS C VIRUS SCREENING [facility] Start: 1968 Tetanus vaccination TETANUS [facility] End: 08-11-2021 C-Peptide [facility] [employer] Phone: Comment on above: Once for 1 Occurrences starting 08/11/19 until 08/11/2021 C-PEPTIDE C-PEPTIDE Lab Ro utine Uncontrolled type 2 diabetes mellitus with hyperglycemia Ordered: 02/03/2022 [facility] Comment on above: Ordered: 02/03/2022 End: 04-14-2021 Clostridium Difficile Toxin/Antigen Clostridium Difficile Toxin/Antigen Microbiology Routine 48 HRS for 48 Hours starting 04/14/2021 until 04/14/2021 [facility] [employer] Phone: Comment on above: 48 HRS for 48 Hours starting 03/18 until 04/14/2021 Complete blood count with white cell differential, automated CBC, EDIF, PLATELET Lab Routine Uncontrolled type 2 diabetes mellitus with hyperglycemia Ordered: 02/03/2022 [facility] Comment on above: Ordered: 02/03/2022 Comprehensive metabo lic 2000 panel - Serum or Plasma COMPREHENSIVE METABOLIC PANEL Lab Routine Uncontrolled type 2 diabetes mellitus with hyperglycemia Ordered: 02/03/2022 [facility] Comment on above: Ordered: 02/03/2022 CT Chest WO contrast CT CHEST WO CONTRAST Imaging STAT 09/02/2024 5:54 PM EST [facility] [employer] End: 08-21-2024 Culture, Blood 1 [facility] Comment on above: One Time for 1 Occurrences starting 11/2024 until 08/21/2024 End: 09-02-2024 Culture, Blood 2 [facility] Work Phone: Comment on above: One Time for 1 Occurrences starting 08/17 until 09/02/2024 End: 02-11-2020 Culture, Urine Culture, Urine Microbiology Routine Renal colic 1 Occurrences starting 02/11/2020 until 02/11/2020 [employer] Comment on above: 1 Occurrences starting 02/11/2020 until 02/11/2020 Culture, Urine Culture, Urine Microbiology Routine Renal colic 02/11/2020 9:20 AM EDT [employer] End: 02-22-2022 Culture, Urine BON [employer] Work Phone: Comment on above: 1 Occurrences starting 02/22/2022 until 02/22/2022 End: 10-17-2024 Echo (TTE) complete (PRN contrast/bubble/strain/3 D) [facility] Comment on above: 1 Occurrences starting 10/17/2024 until 10/17/2024 EKG 12 Lead EKG 12 Lead ECG Routine 09/02/2024 2:12 PM EST [facility] EKG 12 Lead EKG 12 Lead ECG STAT 09/04/2024 8:24 AM EST [facility] EKG 12 Lead EKG 12 Lead ECG STAT 02/26/2025 1:20 PM EDT [facility] End: 08-21-2024 Extended cardiac holter monitor (3 day-14 day) Extended cardiac holter monitor (3 day-14 day) [facility] Routine One Time for 1 Occurrences starting 08/21/2024 until 08/21/2024 [facility] Comment on above: One Time for 1 Occurrences starting 11/2024 until 08/21/2024 End: 08-22-2024 Extended cardiac holter monitor (3 days-14 day) [facility] Work Phone: Comment on above: 1 Occurrences starting 08/22/2024 until 08/22/2024 Glucose [Mass/volume ] in Serum or Plasma [employer] Phone: Comment on above: 4X Daily (AC & HS) until discontinued st arting 04/14/2021 As Needed until disc ontinued starting 04/14/2021 Hemoglobin A1c/Hemoglobin.total in Blood HEMOGLOBIN A1C Lab Routine Uncontrolled type 2 diabetes mellitus with hyperglycemia Ordered: 02/03/2022 [employer] Comment on above: Ordered: 02/03/2022 INSULIN INSULIN Lab Rout ine Uncontrolled type 2 diabetes mellitus with hyperglycemia Ordered: 02/03/2022 [employer] Comment on above: Ordered: 02/03/2022 End: 08-21-2024 Lactate, Sepsis Lactate, Sepsis Lab Timed Every 2 Hours (Lab) for 2 Occurrences starting 08/21/2024 until 08/21/2024, 1 completed [employer] Phone: Comment on above: Every 2 Hours (Lab) for [address] arting 08/21/2024 until 08/21/2024, 1 completed End: 08-11-2021 Lipid panel [employer] Phone: Comment on above: Once for 1 Occurrences starting 08/11/19 until 08/11/2021 LIPID PANEL W CALCUL ATED LDL LIPID PANEL W CALCULATED LDL Lab Routine Uncontrolled type 2 diabetes mellitus with hyperglycemia Ordered: 02/03/2022 [employer] Comment on above: Ordered: 02/03/2022 End: 03-29-2022 Microalbumin, Ur [employer] Phone: Comment on above: Once for 1 Occurrences starting 03/29/20 until 03/29/2022 MICROALBUMIN/CREATIN INE RATIO MICROALBUMIN/CREATININE RATIO Fluids Routine Uncontrolled type 2 diabetes mellitus with hyperglycemia Ordered: 02/03/2022 [employer] Comment on above: Ordered: 02/03/2022 End: 12-06-2024 MR Lumbar spine WO contrast [facility] Comment on above: 1 Occurrences starting 12/06/2024 until 12/06/2024 Oxygen therapy [[facility] Data Set] Initiate Oxygen Therapy Protocol Respiratory Care Routine Daily until discontinued starting 04/13/2021 [employer] Phone: Comment on above: Daily until discontinued starting 2020 End: 04-13-2021 pH, venous pH, venous Lab STAT One Time for 1 Occurrences starting 04/13/2021 until 04/13/2021 [employer] Work Phone: Comment on above: One Time for 1 Occurrences starting 03/18 until 04/13/2021 pH, venous pH, venous Lab S TAT 04/13/2021 7:35 PM EDT [facility] End: 10-10-2021 Salivary Cortisol [facility] Comment on above: Once for 1 Occurrences starting 10/11/19 until 10/10/2021 Standard ECG ECG ECG STAT 12/2021 3:51 PM [facility] [employer] [facility] End: 02-26-2025 Thyroxine (T4) free [Mass/volume] in Serum or Plasma [facility] Comment on above: One Time for 1 Occurrences starting 02/14 until 02/26/2025 End: 08-04-2024 XR Lumbar spine 4 Views [facility] Comment on above: Once for 1 Occurrences starting 08/04/19 until 08/04/2024 Immunizations Immunization Date Immunization Notes Care Provider Jeff francisco 12-15-2004 measles, mumps and r ubella virus vaccine [facility] [place] 02-09-2001 measles, mumps and r ubella virus vaccine [facility] Payers Date Payer Category Payer Unknown [id number] 2014 Unknown [facility] MEDICAID [id number] 2014-Present [phone] CLAIMS DEPARTMENT [address] [place] [address] [id number]. [id number] 2014 Unknown [id number] 1.2.840.751036.1.13.239.2. 7.3.343024.315 2014 Unknown [id number] 2.16.840.1.178124.3.140.1. 88821.5.10.6.3 1968 Unknown [id number] 2.16.840.1.074919.3.579.2. 983 1968 Unknown [id number] 2.16.840.1.740633.3.579.2. 983 1968 Unknown [id number] 2.16.840.1.258489.3.579.2. 983 1968 Unknown [id number] 2.16.840.1.525056.3.579.2. 983 1968 Unknown [id number] 2.16.840.1.744690.3.579.2. 983 1968 Unknown [id number] 2.16.840.1.119709.3.579.2. 983 1968 Unknown [id number] 2.16.840.1.438265.3.579.2. 983 1968 Unknown [id number] 2.16.840.1.912832.3.579.2. 983 1968 Unknown [id number] 2.16.840.1.205169.3.579.2. 983 1968 Unknown [id number] 2.16.840.1.304627.3.579.2. 173 1968 Unknown [id number] 2.16.840.1.448025.3.579.2. 173 1968 Unknown [id number] 2.16.840.1.251519.3.579.2. 173 1968 Unknown [id number] 2.16.840.1.651023.3.579.2. 173 1968 Unknown [id number] 2.16.840.1.587777.3.579.2. 174 1968 Unknown [id number] 2.16.840.1.480957.3.579.2. 174 1968 Unknown [id number] 2.16.840.1.241101.3.579.2. 174 1968 Unknown [id number] 2.16.840.1.878027.3.579.2. 174 1968 Unknown [id number] 2.16.840.1.656019.3.579.2. 174 1968 Unknown [id number] 2.16.840.1.121186.3.579.2. 174 1968 Unknown [id number] 2.16.840.1.687040.3.579.2. 174 1968 Unknown [id number] 2.16.840.1.255386.3.579.2. 174 1968 Unknown [id number] 2.16.840.1.421555.3.579.2. 174 1968 Unknown [id number] 2.16.840.1.282188.3.579.2. 174 1968 Unknown [id number] 2.16.840.1.806182.3.579.2. 174 1968 Unknown [id number] 2.16.840.1.664548.3.579.2. 174 1968 Unknown [id number] 2.16.840.1.768630.3.579.2. 174 1968 Unknown [id number] 2.16.840.1.609300.3.579.2. 174 1968 Unknown [id number] 2.16.840.1.358770.3.579.2. 174 1968 Unknown [id number] 2.16.840.1.072562.3.579.2. 174 1968 Unknown [id number] 2.16.840.1.724181.3.579.2. 174 1968 Unknown [id number] 2.16.840.1.304317.3.579.2. 174 1968 Unknown [id number] 2.16.840.1.629559.3.579.2. 174 1968 Unknown [id number] 2.16.840.1.492673.3.579.2. 174 1968 Unknown [id number] 2.16.840.1.062420.3.579.2. 174 1968 Unknown [id number] 2.16.840.1.519711.3.579.2. 174 1968 Unknown [id number] 2.16.840.1.371564.3.579.2. 174 1968 Unknown [id number] 2.16.840.1.197995.3.579.2. 196 1968 Unknown [id number] 2.16.840.1.347680.3.579.2. 196 1968 Unknown [id number] 2.16.840.1.599220.3.579.2. 196 1968 Unknown [id number] 2.16.840.1.962653.3.579.2. 196 Private Health Insurance 1 - Car [facility] Advantage Medicare [id number] 2.16.840.1.037627.3.140.1. 33931.5.10.6.3 Social History Date Type Detail Facility Start: 02-11-2020 End: 02-22-2022 Tobacco smoking status NHIS Former smoker [facility] Start: 07-25-1987 End: 07-25-2017 History of tobacco use Current smoker [place] Start: 07-25-1987 End: 07-25-2017 History of tobacco use Cigarette Smoker [place] Start: 02-11-2020 End: 09-09-2024 Cigarettes smoked current (pack per day) - Reported [place] Start: 02-11-2020 End: 02-22-2022 Tobacco use and exposure Never used [place] Start: 02-11-2020 End: 09-29-2024 Alcohol intake Current non-drinker of alcohol (finding) [place], [place] Start: 04-21-2016 [facility] [place] [place] Start: 1970 [facility]igned [facility] file [facility] Start: 01-24-2022 End: 07-05-2022 Exposure to SARS-CoV-2 (event) Not sure [place], [place] Assertion Currently not se xually active (finding) [facility] Assertion Gender identity finding (finding) [facility] Assertion Finding of sexua l orientation (finding) [facility] Tobacco smoking status Unknown if ever smoked [facility] Work Phone: Start: 05-10-2018 End: 07-17-2018 Assertion [facility] Start: 08-03-2021 Tobacco smoking status NHIS Never smoked tobacco [facility] Start: 10-28-2021 End: 06-21-2022 Alcohol intake Ex-drinker (finding) [facility] Start: 07-05-2022 End: 09-09-2024 Tobacco use panel [facility] How often to you hav e a drink containing alcohol? Never [facility] Start: 08-26-2012 Sex Female (finding) [facility] [facility] Start: 02-26-2025 Alcoholic beverage intake Lifetime non-drinker (finding) [facility] NEGATED: Highlighted row Assertion Current drinker of alcohol (finding) [facility] NEGATED: Highlighted row Assertion Finding relating to drug misuse behavior (finding) [facility] NEGATED: Highlighted row Assertion Exposure to pollution (event) [facility] NEGATED: Highlighted row Assertion [facility] NEGATED: Highlighted row Assertion Tobacco user (finding) [facility] NEGATED: Highlighted row Assertion Sexually active (finding) [facility] Medical Equipment Procedure Code Equipment Code Equipment Origin al Text Equipment Identifier Dates 1 each by Does n ot apply route daily [id number] Start: 10-23-2018 End: 04-16-2021 1 each by Does n ot apply route 5 times daily Dx: IDDM. 5 injections daily. [id number] Start: 11-13-2017 End: 04-16-2021 Test 4 times a d ay & as needed for symptoms of irregular blood glucose. Dispense sufficient amount for indicated testing frequency plus additional to accommodate PRN testing needs. [id number] Start: 04-16-2021 End: 09-04-2024 1 each by Does n ot apply route 4 times daily [id number] Start: 04-16-2021 End: 09-04-2024 Injection 5 time s a day. [id number] Start: 04-16-2021 End: 09-04-2024 Pen [place] 32G X 5 MM Miscellaneous [id number] Start: 04-21-2021 End: 07-05-2022 Pen [place] 32G X 5 MM Miscellaneous [id number] Start: 06-06-2024 Pen [place] 32G X 5 MM Miscellaneous [id number] Start: 07-05-2022 End: 06-06-2024 BD Lancet Ultraf ine 33G Miscellaneous [id number] Start: 07-04-2024 True Metrix Bloo d Glucose Test In Vitro Strip [id number] Start: 07-04-2024 Insulin Syringe 31G X 5/16 1 ML Miscellaneous [id number] Start: 08-08-2024 Functional Status Date Assessment Result Facility [facility] Mental Status Date Assessment Result Facility Cognitive function Cognitive fun ctioning was normal Cognitive function finding (finding) [facility] Work Phone: Clinical Notes 04-15-2021 to 03-03-2025 Note Date & Type Note Facility 03-03-2025 Evaluation note Includes: Assessments for all patient encounters Findings [Body mass index [BMI] 27.0-27.9, adult] assessment of body mass index Medical Established Patient with Kavita Bayer SPOILAGE WORKER 03/03/2025 Last Documented On 5 3:50PM ; [facility] Assessment of pain in the th oracic spine Medical Established Patient with Kavita Hardeep SPOILAGE WORKER 03/03/2025 Last Documented On 5 3:50PM ; [facility] Type 2 diabetes mellitus Medical Established Pat ient with Kavita Hardeep SPOILAGE WORKER 03/03/2025 Last Documented On 5 3:50PM ; [facility] Body mass index Medical Established Patient with Kavita Hardeep SPOILAGE WORKER 12/31/2024 Last Documented On 5 2:02PM ; [facility] Type 2 diabetes mellitus Medical Established Pat ient with Kavita Hardeep SPOILAGE WORKER 12/31/2024 Last Documented On 5 2:02PM ; [facility] [Body mass index [BMI] 27.0- 27.9, adult] assessment of body mass index Medical Established Patient with Kavita Hardeep SPOILAGE WORKER 11/27/2024 Last Documented On 5 6:16AM ; [facility] Assessment of pain in the th oracic spine Medical Established Patient with Kavita Hardeep SPOILAGE WORKER 11/27/2024 Last Documented On 5 6:16AM ; [facility] Postherpetic polyneuropathy Medical Esta blished Patient with Kavita Hardeep SPOILAGE WORKER 11/27/2024 Last Documented On 5 6:16AM ; [facility] Type 2 diabetes mellitus Medical Established Pat ient with Kavita Hardeep SPOILAGE WORKER 11/27/2024 Last Documented On 5 6:16AM ; [facility] [Body mass index [BMI] 27.0- 27.9, adult] assessment of body mass index Medical Established Patient with Kavita Hardeep SPOILAGE WORKER 10/24/2024 Last Documented On 5 9:04PM ; [facility] Type 2 diabetes mellitus Medical Established Pat ient with Kavita Hardeep SPOILAGE WORKER 10/24/2024 Last Documented On 5 9:04PM ; [facility] [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 Medical Established Patient with Sally Ginger SPOILAGE WORKER 09/19/2024 Last Documented On 5 1:29PM ; [facility] Assessment of body mass index Medical Es tablished Patient with Sally Ginger SPOILAGE WORKER 09/19/2024 Last Documented On 5 1:29PM ; [facility] Body mass index Medical Established Patient with Sally Ginger SPOILAGE WORKER 09/19/2024 Last Documented On 5 1:29PM ; [facility] Type 2 diabetes mellitus Medical Established Pat ient with Sally Ginger SPOILAGE WORKER 09/19/2024 Last Documented On 5 1:29PM ; [facility] Type 2 diabetes mellitus Medical Established Pat ient with Sally Ginger SPOILAGE WORKER 09/19/2024 Last Documented On 5 1:29PM ; [facility] [Body mass index [BMI] 28.0- 28.9, adult] assessment of body mass index Open Access - Established with Kavita Hardeep SPOILAGE WORKER 09/02/2024 Last Documented On 5 2:11PM ; [facility] Assessment of pain in the th oracic spine Open Access - Established with Kavita Hardeep SPOILAGE WORKER 09/02/2024 Last Documented On 5 2:11PM ; [facility] Type 2 diabetes mellitus Open Access - Establish ed with Kavita Hardeep SPOILAGE WORKER 09/02/2024 Last Documented On 5 2:11PM ; [facility] [Body mass index [BMI] 28.0- 28.9, adult] assessment of body mass index Open Access - Established with Kavita Hardeep SPOILAGE WORKER 08/21/2024 Last Documented On 5 5:18PM ; [facility] Type 2 diabetes mellitus Open Access - Establish ed with Kavita Hardeep SPOILAGE WORKER 08/21/2024 Last Documented On 5 5:18PM ; [facility] [Body mass index [BMI] 28.0- 28.9, adult] assessment of body mass index Medical Established Patient with Kavita Hardeep SPOILAGE WORKER 08/08/2024 Last Documented On 5 4:23PM ; [facility] Type 2 diabetes mellitus Medical Established Pat ient with Kavita Hardeep SPOILAGE WORKER 08/08/2024 Last Documented On 5 4:23PM ; [facility] [Body mass index [BMI] 30.0- 30.9, adult] assessment of body mass index Medical Established Patient with Kavita Hardeep SPOILAGE WORKER 07/04/2024 Last Documented On 4 8:14AM ; [facility] Type 2 diabetes mellitus Medical Established Pat ient with Kavita Hardeep SPOILAGE WORKER 07/04/2024 Last Documented On 4 8:14AM ; [facility] [Body mass index [BMI] 28.0- 28.9, adult] assessment of body mass index Open Access - Established with Kavita Hardeep SPOILAGE WORKER 06/06/2024 Last Documented On 4 11:06AM ; [facility] Venipuncture was performed Open Access - Establi shed with Kavita Qureshi CNP 06/06/2024 Last Documented On 4 11:06AM ; [facility] Assessment of body mass inde x [Body mass index [BMI] 31.0-31.9, adult] Medical Established Patient with Kavita Hardeep SPOILAGE WORKER 06/02/2021 Last Documented On 1 5:19PM ; [facility] Type 2 diabetes mellitus Medical Established Pat ient with Kavita Qureshi SPOILAGE WORKER 06/02/2021 Last Documented On 1 5:19PM ; [facility] Assessment of body mass inde x [Body mass index [BMI] 31.0-31.9, adult] Medical Established Patient with Kavita Qureshi SPOILAGE WORKER 05/18/2021 Last Documented On 1 5:34PM ; [facility] Assessment of body mass inde x [Body mass index [BMI] 29.0-29.9, adult] Medical New Patient with Kavita Qureshi SPOILAGE WORKER 04/21/2021 Last Documented On 1 12:10PM ; [facility] Type 2 diabetes mellitus Medical New Patient wit h Kavita Qureshi CNP 04/21/2021 Last Documented On 1 12:10PM ; [facility] Work Phone: 1(434) 575-366408-18-2025 Progress note* Progress note Date Encounter Last Documented by 03/03/2025 Medical Established Patient Last documented on 03/04/2025; 3:50 PM, Kavita Qureshi CNP; [facility] Active Problems & Conditions - E11.65 [...] fluid Discussed importance of following up with [facility] hand Patient drank 2 bottles of water in [...] Sliding scale 3 times a day before -281 3units, 201-250- 6 units, 694-984-6bcvdg, 987-596-12rszby, 351-400-15 units, > 400 18 units, 30 days, 0 refills - Insulin Syringe 31G X 5/16 1 ML Miscellaneous use to inject insulin two times per day, 30 days, 3 refills - Lantus 100 UNIT/ML Subcutaneous Solution Inject subcutaneouly 50 units in the morning, and 50 units before bed every day, 90 days, 1 refills - Pen [place] 32G X 5 MM Miscellaneous 32G X 5 MM Use with insulin two times per day, 30 days, 11 refills - True Metrix Blood Glucose Test In Vitro Strip Use to monitor blood sugars three times a day, 30 days, 11 refills Past Medical/Surgical History Reported: Medical: No previous hospitalizations [facility] 04-16-21. Previous hospitalizations or recent ER visits [...] BP-Sitting R78/51 mmHg BP Cuff SizeRegular Pulse Rate-Sksujqy943 bpm Respiration Rate18 per min Temp-Oral98.4 F Awjjqb16 in Zpzriv788 lbs 12.8 oz Body Mass Index27.6 kg/m2 Body Surface Area1.9 m2 Oxygen Lkgyznsbsh26 % O2 DeviceNone (Room Air) WxQ737 % - Vitals taken 03/03/2025 12:00 pm BP-Ucmpcuj48/52 mmHg - Vitals taken 03/03/2025 12:45 pm BP-Edlhyuj15/55 mmHg - Vitals taken 03/03/2025 01:10 pm BP-Aevcqcb47/67 mmHg Vital Signs: - Systolic blood pressure [...] the next year. Bottom of Document Illustration [facility]08-13-2025 History general Narrative - Reported Includes: Medical History in patient's chart Description Last Updated Previous hospitalizations or recent ER v isits 02/26/25 03/03/2025 Last Documented On 5 3:50PM ; [facility] No previous hospitalizations [facility] 04-16-21 06/06/2024 Last Documented On 4 11:06AM ; [facility] History of diabetes mellitus 04/21/2021 Last Documented On 1 12:10PM ; [facility] Work Phone: 1(170) 107-718006-17-2025 Progress note* Progress note Date Encounter Last Documented by 12/31/2024 Medical Established Patient Last documented on 12/31/2024; 2:02 PM, Kavita Qureshi CNP; [facility] Active Problems & Conditions - E11.65 [...] Sliding scale 3 times a day before zezoj078-388 3units, 201-250- 6 units, 572-711-9mjhuf, 083-868-06llkwy, 351-400-15 units, > 400 18 units, 30 [...] dose, 30 days, 3 refills - Pen [place] 32G X 5 MM Miscellaneous 32G X 5 MM Use with insulin two times per day, 30 days, 11 refills - True Metrix Blood Glucose Test In Vitro Strip Use to monitor blood sugars three times a day, 30 days, 11 refills Past Medical/Surgical History Reported: Medical: No previous hospitalizations [facility] 04-16-21 and no Previous hospitalizations or recent [...] BP-Sitting R88/61 mmHg BP Cuff SizeRegular Pulse Rate-Gyelsen960 bpm Respiration Rate20 per min Temp-Oral98.3 F Kzelfv82 in Nodxyn018 lbs Body Mass Index28.1 kg/m2 Body Surface Area1.9 m2 Oxygen Cfqzdscjjf46 % - Vitals taken 12/31/2024 12:41 pm [...] Sliding scale 3 times a day before knvuf291-133 3units, 201-250- 6 units, 072-994-5dqgbz, 113-538-03czugd, 351-400-15 units, > 400 18 units, 30 days, 0 refills Lantus 100 UNIT/ML mL Inject subcutaneouly 50 units in the morning, and 50 units before bed every day, 90 days, 1 refills EndCited Care Team - Kavita Qureshi CNP - Family User Defined 1 Not planning a in the next year. [facility]05-14-2025 Evaluation note Includes: Assessments for all patient encounters Findings Encounter Date [Body mass index [BMI] 27.0- 27.9, adult] assessment of body mass index Medical Established Patient with Kavita Qureshi CNP 11/27/2024 Last Documented On 5 6:16AM ; [facility] Assessment of pain in the th oracic spine Medical Established Patient with Kavita Hardeep SPOILAGE WORKER 11/27/2024 Last Documented On 5 6:16AM ; [facility] Postherpetic polyneuropathy Medical Esta blished Patient with Kavita Hardeep SPOILAGE WORKER 11/27/2024 Last Documented On 5 6:16AM ; [facility] Type 2 diabetes mellitus Medical Established Pat ient with Kavita Hardeep SPOILAGE WORKER 11/27/2024 Last Documented On 5 6:16AM ; [facility] [Body mass index [BMI] 27.0- 27.9, adult] assessment of body mass index Medical Established Patient with Kavita Hardeep SPOILAGE WORKER 10/24/2024 Last Documented On 5 9:04PM ; [facility] Type 2 diabetes mellitus Medical Established Pat ient with Kavita Hardeep SPOILAGE WORKER 10/24/2024 Last Documented On 5 9:04PM ; [facility] [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 Medical Established Patient with Sally Ginger SPOILAGE WORKER 09/19/2024 Last Documented On 5 1:29PM ; [facility] Assessment of body mass index Medical Es tablished Patient with Sally Ginger SPOILAGE WORKER 09/19/2024 Last Documented On 5 1:29PM ; [facility] Body mass index Medical Established Patient with Sally Ginger SPOILAGE WORKER 09/19/2024 Last Documented On 5 1:29PM ; [facility] Type 2 diabetes mellitus Medical Established Pat ient with Sally Ginger SPOILAGE WORKER 09/19/2024 Last Documented On 5 1:29PM ; [facility] Type 2 diabetes mellitus Medical Established Pat ient with Sally Ginger SPOILAGE WORKER 09/19/2024 Last Documented On 5 1:29PM ; [facility] [Body mass index [BMI] 28.0- 28.9, adult] assessment of body mass index Open Access - Established with Kavita Hardeep SPOILAGE WORKER 09/02/2024 Last Documented On 5 2:11PM ; [facility] Assessment of pain in the th oracic spine Open Access - Established with Kavita Qureshi CNP 09/02/2024 Last Documented On 5 2:11PM ; [facility] Type 2 diabetes mellitus Open Access - Establish ed with Kavita Hardeep SPOILAGE WORKER 09/02/2024 Last Documented On 5 2:11PM ; [facility] [Body mass index [BMI] 28.0- 28.9, adult] assessment of body mass index Open Access - Established with Kavita Qureshi SPOILAGE WORKER 08/21/2024 Last Documented On 5 5:18PM ; [facility] Type 2 diabetes mellitus Open Access - Establish ed with Kavita Qureshi SPOILAGE WORKER 08/21/2024 Last Documented On 5 5:18PM ; [facility] [Body mass index [BMI] 28.0- 28.9, adult] assessment of body mass index Medical Established Patient with Kavita Qureshi SPOILAGE WORKER 08/08/2024 Last Documented On 5 4:23PM ; [facility] Type 2 diabetes mellitus Medical Established Pat ient with Kavita Hardeep SPOILAGE WORKER 08/08/2024 Last Documented On 5 4:23PM ; [facility] [Body mass index [BMI] 30.0- 30.9, adult] assessment of body mass index Medical Established Patient with Kavita Qureshi SPOILAGE WORKER 07/04/2024 Last Documented On 4 8:14AM ; [facility] Type 2 diabetes mellitus Medical Established Pat ient with Kavita Hardeep SPOILAGE WORKER 07/04/2024 Last Documented On 4 8:14AM ; [facility] [Body mass index [BMI] 28.0- 28.9, adult] assessment of body mass index Open Access - Established with Kavita Qureshi SPOILAGE WORKER 06/06/2024 Last Documented On 4 11:06AM ; [facility] Venipuncture was performed Open Access - Establi shed with Kavita Qureshi SPOILAGE WORKER 06/06/2024 Last Documented On 4 11:06AM ; [facility] Assessment of body mass inde x [Body mass index [BMI] 31.0-31.9, adult] Medical Established Patient with Kavita Hardeep SPOILAGE WORKER 06/02/2021 Last Documented On 1 5:19PM ; [facility] Type 2 diabetes mellitus Medical Established Pat ient with Kavita Hardeep SPOILAGE WORKER 06/02/2021 Last Documented On 1 5:19PM ; [facility] Assessment of body mass inde x [Body mass index [BMI] 31.0-31.9, adult] Medical Established Patient with Kavita Hardeep SPOILAGE WORKER 05/18/2021 Last Documented On 1 5:34PM ; [facility] Assessment of body mass inde x [Body mass index [BMI] 29.0-29.9, adult] Medical New Patient with Kavita Hardeep SPOILAGE WORKER 04/21/2021 Last Documented On 1 12:10PM ; [facility] Type 2 diabetes mellitus Medical New Patient wit h Kavita Hardeep SPOILAGE WORKER 04/21/2021 Last Documented On 1 12:10PM ; [facility] Work Phone: 1(733) 611-533605-14-2025 Progress note* Progress note Date Encounter Last Documented by 11/27/2024 Medical Established Patient Last documented on 12/02/2024; 6:16 AM, Kavita Qureshi CNP; [facility] Active Problems & Conditions - E11.65 [...] Sliding scale 3 times a day before -062 3units, 201-250- 6 units, 702-514-6vqgtg, 117-869-91vmelh, 351-400-15 units, > 400 18 units, 30 [...] dose, 30 days, 3 refills - Pen [place] 32G X 5 MM Miscellaneous 32G X 5 MM Use with insulin two times per day, 30 days, 11 refills - True Metrix Blood Glucose Test In Vitro Strip Use to monitor blood sugars three times a day, 30 days, 11 refills Past Medical/Surgical History Reported: Medical: No previous hospitalizations [facility] 04-16-21 and no Previous hospitalizations or recent [...] BP-Sitting R108/73 mmHg BP Cuff SizeRegular Pulse Rate-Yniwtau419 bpm Msenie98 in Iqaarh425 lbs Body Mass Index27.8 kg/m2 Body Surface Area1.9 m2 Oxygen Rjhbsuxnbf69 % - Vitals taken 11/27/2024 10:55 am BP-Xxxttuf011/69 mmHg Vital Signs: - Systolic blood pressure [...] Not planning a in the next year. [facility]04-10-2025 Evaluation note Includes: Assessments for all patient encounters Findings Encounter Date [Body mass index [BMI] 27.0- 27.9, adult] assessment of body mass index Medical Established Patient with Kavita Qureshi CNP 10/24/2024 Last Documented On 5 9:04PM ; [facility] Type 2 diabetes mellitus Medical Established Pat ient with Kavita Qureshi CNP 10/24/2024 Last Documented On 5 9:04PM ; [facility] [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 Medical Established Patient with Sally Miles CNP 09/19/2024 Last Documented On 5 1:29PM ; [facility] Assessment of body mass index Medical Es tablished Patient with Sally Miles CNP 09/19/2024 Last Documented On 5 1:29PM ; [facility] Body mass index Medical Established Patient with Sally Miles CNP 09/19/2024 Last Documented On 5 1:29PM ; [facility] Type 2 diabetes mellitus Medical Established Pat ient with Sallyflorecita Miles SPOILAGE WORKER 09/19/2024 Last Documented On 1:29PM ; [facility] Type 2 diabetes mellitus Medical Established Pat ient with Sallyflorecita Miles SPOILAGE WORKER 09/19/2024 Last Documented On 1:29PM ; [facility] [Body mass index [BMI] 28.0- 28.9, adult] assessment of body mass index Open Access - Established with Kavita Hardeep SPOILAGE WORKER 09/02/2024 Last Documented On 2:11PM ; [facility] Assessment of pain in the th oracic spine Open Access - Established with Kavita Hardeep SPOILAGE WORKER 09/02/2024 Last Documented On 2:11PM ; [facility] Type 2 diabetes mellitus Open Access - Establish ed with Kavita Hardeep SPOILAGE WORKER 09/02/2024 Last Documented On 2:11PM ; [facility] [Body mass index [BMI] 28.0- 28.9, adult] assessment of body mass index Open Access - Established with Kavita Hardeep SPOILAGE WORKER 08/21/2024 Last Documented On 5 5:18PM ; [facility] Type 2 diabetes mellitus Open Access - Establish ed with Kavita Hardeep SPOILAGE WORKER 08/21/2024 Last Documented On 5 5:18PM ; [facility] [Body mass index [BMI] 28.0- 28.9, adult] assessment of body mass index Medical Established Patient with Kavita Hardeep SPOILAGE WORKER 08/08/2024 Last Documented On 5 4:23PM ; [facility] Type 2 diabetes mellitus Medical Established Pat ient with Kavita Hardeep SPOILAGE WORKER 08/08/2024 Last Documented On 5 4:23PM ; [facility] [Body mass index [BMI] 30.0- 30.9, adult] assessment of body mass index Medical Established Patient with Kavita Hardeep SPOILAGE WORKER 07/04/2024 Last Documented On 4 8:14AM ; [facility] Type 2 diabetes mellitus Medical Established Pat ient with Kavita Hardeep SPOILAGE WORKER 07/04/2024 Last Documented On 4 8:14AM ; [facility] [Body mass index [BMI] 28.0- 28.9, adult] assessment of body mass index Open Access - Established with Kavita Hardeep SPOILAGE WORKER 06/06/2024 Last Documented On 4 11:06AM ; [facility] Venipuncture was performed Open Access - Establi shed with Kavita Hardeep SPOILAGE WORKER 06/06/2024 Last Documented On 4 11:06AM ; [facility] Assessment of body mass inde x [Body mass index [BMI] 31.0-31.9, adult] Medical Established Patient with Kavita Hardeep SPOILAGE WORKER 06/02/2021 Last Documented On 1 5:19PM ; [facility] Type 2 diabetes mellitus Medical Established Pat ient with Kavita Hardeep SPOILAGE WORKER 06/02/2021 Last Documented On 1 5:19PM ; [facility] Assessment of body mass inde x [Body mass index [BMI] 31.0-31.9, adult] Medical Established Patient with Kavita Hardeep SPOILAGE WORKER 05/18/2021 Last Documented On 1 5:34PM ; [facility] Assessment of body mass inde x [Body mass index [BMI] 29.0-29.9, adult] Medical New Patient with Kavita Hardeep SPOILAGE WORKER 04/21/2021 Last Documented On 1 12:10PM ; [facility] Type 2 diabetes mellitus Medical New Patient wit h Kavita Hardeep SPOILAGE WORKER 04/21/2021 Last Documented On 1 12:10PM ; [facility] Work Phone: 1(261) 277-172804-10-2025 History general Narrative - Reported Includes: Medical History in patient's chart Description Last Updated No Previous hospitalizations or recent E R visits 10/24/2024 Last Documented On 5 9:04PM ; [facility] No previous hospitalizations [facility] 04-16-21 06/06/2024 Last Documented On 4 11:06AM ; [facility] History of diabetes mellitus 04/21/2021 Last Documented On 1 12:10PM ; [facility] Work Phone: 1(284) 364-337104-10-2025 History general Narrative - Reported Includes: Medical History in patient's chart Description Last Updated No Previous hospitalizations or recent E R visits 10/24/2024 Last Documented On 5 9:04PM ; [facility] No previous hospitalizations [facility] boo 04-16-21 06/06/2024 Last Documented On 4 11:06AM ; [facility] History of diabetes mellitus 04/21/2021 Last Documented On 1 12:10PM ; [facility] Work Phone: [phone]) 938-602204-10-2025 Progress note* Progress note Date Encounter Last Documented by 10/24/2024 Medical Established Patient Last documented on 10/26/2024; 9:04 PM, Kavita Qureshi CNP; [facility] Active Problems & Conditions - E11.65 [...] most of the day it is a 8-04/25 and she is unable to eat because [...] Sliding scale 3 times a day before yicbe482-526 3units, 201-250- 6 units, 216-012-0enidz, 570-163-22ttjlr, 351-400-15 units, > 400 18 units, 30 days, 0 refills - Insulin Syringe 31G X 5/16 1 ML Miscellaneous use to inject insulin two times per day, 30 days, 3 refills - Lantus 100 UNIT/ML Subcutaneous Solution Inject subcutaneouly 50 units in the morning, and 50 units before bed every day, 30 days, 5 refills - Pen [place] 32G X 5 MM Miscellaneous 32G X 5 MM Use with insulin two times per day, 30 days, 11 refills - True Metrix Blood Glucose Test In Vitro Strip Use to monitor blood sugars three times a day, 30 days, 11 refills Past Medical/Surgical History Reported: Medical: No previous hospitalizations [facility] 04-16-21 and no Previous hospitalizations or recent [...] BP-Sitting L123/72 mmHg BP Cuff SizeRegular Pulse Rate-Zqrplku120 bpm Fpbory00 in Ufbvgx049 lbs 12.8 oz Body Mass Index27.7 kg/m2 Body Surface Area1.9 m2 Oxygen Uhxvrvwlws14 % - Vitals taken 10/24/2024 03:03 pm BP-Cphbtxf991/68 mmHg Vital Signs: - Systolic blood pressure [...] Team - Kavita Qureshi, TONY - [facility]03-31-2025 History of Present illness Narrative* Fabiana Reynolds, PT - 10/14/2024 10:30 AM EDT Images from the original note were not included. [facility] Outpatient Physical Therapy Daily Note Date: 10/14/2024 Patient Name: Casandra Gonzalez : 1970 (54 y.o.) Referring Provider (secondary): Dr. Shepherd ([place]) Diagnosis: Muscle Weakness Treatment Diagnosis: Back pain, Weakness PT Insurance Information: [facility] Total # of Visits Approved: 10 [...] Education: On continuation of HEP Access Code: [email or web address] URL: [email or web address] Date: 10/14/2024 Prepared by: Fabiana Reynolds Exercises [...] with HEP for ROM and glut strengthening.-[facility] Care Home Goals Time Frame for Care Home Goals : 10 visits Care Home Goal 1: Pt to improve LEFS from 38/80 to >48/80 to improve pt ADL carlos.- [facility] Goal 2: Pt to have 4/5 horiz ABD strength to improve posture and reduce LBP.-[facility] Care Home Goal 3: Pt to maintain tandum stance 10sec 2:3 B/L to improve amb and stair safety.-[facility] Goal 4: Pt to report worst pain in back /10 x 4 consecutive days to improve work carlos-[facility] Goal 5: Pt to complete 20# crate lift floor to waist x10 with proper mechanics and no increased pain.-[facility] Treatment Tolerance: Treatment Tolerance: Tolerated treatment well. Post Treatment Pain: 08/26 Time In: 10:36 Time Out : 11:11 Timed Code Treatment Minutes: 30 Minutes Total Treatment Time: 35 Minutes Fabiana Reynolds, PT Date: 10/14/2024 documented in this encounterBon [facility]03-31-2025 Hospital course Narrative* Fabiana Reynolds, PT - 10/14/2024 10:30 AM EDT Images from the original note were not included. [facility] Therapy Discharge Summary Patient: Casandra Gonzalez : 1970 Referring Provider (secondary): Dr. Shepherd ([place]) Diagnosis: Muscle Weakness Date Treatment Initiated: 06/27/24 Date of Last Treatment: 10/14/24 PT Visit Information PT Insurance Information: [facility] Total # of Visits Approved: 10 Total # of Visits to Date: 10 Plan of Care/Certification Expiration Date: 10/18/24 No Show: 1 Frequency/Duration Days: 2 times per week Weeks: 5 weeks Treatment Received Patient Education/HEP, Therapeutic Exercise, Manual Therapy: Myofacial Release/Cupping, Manual Therapy: Mobilization/Manipulation, and Neuro Re-ed Assessment: Pain Level: varies 3-610 Assessment: Per patient, the pain is 3/10, [...] with HEP for ROM and glut strengthening.-[facility] Goals Time Frame for Care Home Goals : 10 visits Care Home Goal 1: Pt to improve LEFS from 38/80 to >48/80 to improve pt ADL carlos.- [facility] Diesel Engine Tester Goal 2: Pt to have 4/5 horiz ABD strength to improve posture and reduce LBP.-[facility] Care Home Goal 3: Pt to maintain tandum stance 10sec 2:3 B/L to improve amb and stair safety.-[facility] Goal 4: Pt to report worst pain in back /10 x 4 consecutive days to improve work carlos-Not[facility] Diesel Engine Tester Goal 5: Pt to complete 20# crate lift floor to waist x10 with proper mechanics and no increased pain.-[facility] Reason for Discharge Completion of Prescribed visits and Optimal Function Achieved Comments: Thank you for this referral Fabiana Reynolds, PT Date: 10/14/2024 documented in this encounterBon [facility]03-28-2025 History of Present illness Narrative* Darren Lazo PTA - 10/11/2024 10:30 AM EDT Images from the original note were not included. [facility] Therapy Daily Note Date: 10/11/2024 Patient Name: Casandra Gonzalez : 1970 (54 y.o.) Referring Provider (secondary): Dr. Shepherd ([place]) Diagnosis: Muscle Weakness Treatment Diagnosis: Back pain, [...] with HEP for ROM and glut strengthening.-[facility] Goals Time Frame for Diesel Engine Tester Goals : 10 visits Care Home Goal 1: Pt to improve LEFS from 38/80 to >48/80 to improve pt ADL carlos. Diesel Engine Tester Goal 2: Pt to have 4/5 horiz ABD strength to improve posture and reduce LBP.-[facility] Care Home Goal 3: Pt to maintain tandum stance 10sec 2:3 B/L to improve amb and stair safety.-[facility] Diesel Engine Tester Goal 4: Pt to report worst pain in back 3/10 x 4 consecutive days to improve work carlos Diesel Engine Tester Goal 5: Pt to complete 20# crate lift floor to waist x10 with proper mechanics and no increased pain. Treatment Tolerance: Treatment Tolerance: Treatment limited by pain. Post Treatment Pain: 6/10 Time In: 1027 Time Out: 1057 Timed Code Treatment Minutes: 30 Minutes Total Treatment Time: 30 Minutes Darren Lazo PTA Date: 10/11/2024 Cosigned by Fabiana Reynolds, PT at 10/11/2024 12:11 PM EDT documented in this encounterBon [facility]03-25-2025 History of Present illness Narrative* Fabiana Reynolds, PT - 10/08/2024 9:45 AM EDT Images from the original note were not included. [facility] Physical Therapy Daily Note Date: 10/08/2024 Patient Name: Casandra Gonzalez : 1970 (54 y.o.) Referring Provider (secondary): Dr. Shepherd ([place]) Diagnosis: Muscle Weakness Treatment Diagnosis: Back pain, Weakness PT Insurance Information: [facility] Total # of Visits Approved: 10 Per [...] with HEP for ROM and glut strengthening.-[facility] Diesel Engine Tester Goals Time Frame for Diesel Engine Tester Goals : 10 visits Care Home Goal 1: Pt to improve LEFS from 38/80 to >48/80 to improve pt ADL carlos. Care Home Goal 2: Pt to have 4/5 horiz ABD strength to improve posture and reduce LBP.-[facility] Diesel Engine Tester Goal 3: Pt to maintain tandum stance 10sec 2:3 B/L to improve amb and stair safety.-[facility] Care Home Goal 4: Pt to report worst pain in back 3/10 x 4 consecutive days to improve work carlos Care Home Goal 5: Pt to complete 20# crate lift floor to waist x10 with proper mechanics and no increased pain. Treatment Tolerance: Treatment Tolerance: Tolerated treatment well. 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 Kavita started her on gabapentin low dose and it dropped my bp and I will not take anthing like that ever again advised narcotics are not the recommended custodial PHN treatment and I am sending in [...] Sliding scale 3 times a day before ovqos274-772 3units, 201-250- 6 units, 764-122-7rwwkp, 827-554-99gbndv, 351-400-15 units, > 400 18 units, 30 days, 0 refills - Insulin Syringe 31G X 5/16 1 ML Miscellaneous use to inject insulin two times per day, 30 days, 3 refills - Lantus 100 UNIT/ML Subcutaneous Solution Inject subcutaneouly 50 units in the morning, and 50 units before bed every day, 30 days, 5 refills - Pen [place] 32G X 5 MM Miscellaneous 32G X 5 MM Use with insulin two times per day, 30 days, 11 refills - True Metrix Blood Glucose Test In Vitro Strip Use to monitor blood sugars three times a day, 30 days, 11 refills Past Medical/Surgical History Reported: Medical: No previous hospitalizations [facility] 04-16-21 and no Previous hospitalizations or recent [...] BP-Sitting L131/63 mmHg BP Cuff SizeRegular Pulse Rate-Hbwdfpu194 bpm Respiration Rate18 per min Temp-Oral98.4 F Jgrsrw46 in Dwqkhg358 lbs 12.8 oz Body Mass Index28.9 kg/m2 Body Surface Area1.9 m2 Oxygen Gyzfedljeq80 % - Vitals taken 09/19/2024 09:36 am [...] sugars under control. Care Team - Kavita Qureshi, TONY - [facility] Reminders - Assess BMI satisfied 09/19/2024. - Assess Tobacco Use satisfied 09/19/2024. - Follow Up Plan BMI Management satisfied 09/19/2024. - Hemoglobin A1c satisfied 09/19/2024. User Defined 1 Not planning a in the next year. Health [facility]02-19-2025 History of Present illness Narrative* Nelly Reeves [...] answer is fine. documented in this encounterBon [facility]02-18-2025 History of Present illness Narrative* Shock, Bette S - 09/03/2024 2:15 PM EST Physical Therapy [facility] Date: 09/03/2024 Patient Name: Casandra Gonzalez : 1970 Patient called and said it was too cold and the weather was too bad to come out. Bette Galvan Shock Date: 09/03/2024 documented in this encounterBon [facility]02-17-2025 Evaluation note Includes: Assessments for all patient encounters Findings Encounter Date [Body mass index [BMI] 28.0- 28.9, adult] assessment of body mass index Open Access - Established with Kavita Hardeep SPOILAGE WORKER 09/02/2024 Last Documented On 5 2:11PM ; [facility] Assessment of pain in the th oracic spine Open Access - Established with Kavita Hardeep SPOILAGE WORKER 09/02/2024 Last Documented On 5 2:11PM ; [facility] Type 2 diabetes mellitus Open Access - Establish ed with Kavita Hardeep SPOILAGE WORKER 09/02/2024 Last Documented On 5 2:11PM ; [facility] [Body mass index [BMI] 28.0- 28.9, adult] assessment of body mass index Open Access - Established with Kavita Hardeep SPOILAGE WORKER 08/21/2024 Last Documented On 5 5:18PM ; [facility] Type 2 diabetes mellitus Open Access - Establish ed with Kavita Hardeep SPOILAGE WORKER 08/21/2024 Last Documented On 5 5:18PM ; [facility] [Body mass index [BMI] 28.0- 28.9, adult] assessment of body mass index Medical Established Patient with Kavita Hardeep SPOILAGE WORKER 08/08/2024 Last Documented On 5 4:23PM ; [facility] Type 2 diabetes mellitus Medical Established Pat ient with Kavita Hardeep SPOILAGE WORKER 08/08/2024 Last Documented On 5 4:23PM ; [facility] [Body mass index [BMI] 30.0- 30.9, adult] assessment of body mass index Medical Established Patient with Kavita Hardeep SPOILAGE WORKER 07/04/2024 Last Documented On 4 8:14AM ; [facility] Type 2 diabetes mellitus Medical Established Pat ient with Kavita Hardeep SPOILAGE WORKER 07/04/2024 Last Documented On 4 8:14AM ; [facility] [Body mass index [BMI] 28.0- 28.9, adult] assessment of body mass index Open Access - Established with Kavita Hardeep SPOILAGE WORKER 06/06/2024 Last Documented On 4 11:06AM ; [facility] Venipuncture was performed Open Access - Establi shed with Kavita Hardeep SPOILAGE WORKER 06/06/2024 Last Documented On 4 11:06AM ; [facility] Assessment of body mass inde x [Body mass index [BMI] 31.0-31.9, adult] Medical Established Patient with Kavita Hardeep SPOILAGE WORKER 06/02/2021 Last Documented On 1 5:19PM ; [facility] Type 2 diabetes mellitus Medical Established Pat ient with Kavita Hardeep SPOILAGE WORKER 06/02/2021 Last Documented On 1 5:19PM ; [facility] Assessment of body mass inde x [Body mass index [BMI] 31.0-31.9, adult] Medical Established Patient with Kavita Hardeep SPOILAGE WORKER 05/18/2021 Last Documented On 1 5:34PM ; [facility] Assessment of body mass inde x [Body mass index [BMI] 29.0-29.9, adult] Medical New Patient with Kavita Hardeep SPOILAGE WORKER 04/21/2021 Last Documented On 1 12:10PM ; [facility] Type 2 diabetes mellitus Medical New Patient wit h Kavita Hardeep SPOILAGE WORKER 04/21/2021 Last Documented On 1 12:10PM ; [facility] Work Phone: 1(635) 567-458402-17-2025 History general Narrative - Reported Includes: Medical History in patient's chart Description Last Updated No Previous hospitalizations or recent E R visits 09/02/2024 Last Documented On 5 2:11PM ; [facility] No previous hospitalizations [facility] 04-16-21 06/06/2024 Last Documented On 4 11:06AM ; [facility] History of diabetes mellitus 04/21/2021 Last Documented On 1 12:10PM ; [facility] Work Phone: 1(221) 438-711202-17-2025 History of Present illness Narrative* Samira Gonzalez - 09/02/2024 2:00 PM EST [facility] Date: 09/02/2024 Patient Name: Casandra Gonzalez : 1970 Pt Cancelled Appt due to left voice mail with no reason for cancel Samira Gonzalez Date: 09/02/2024 documented in this encounterBon [facility]02-17-2025 Progress note* Progress note Date Encounter Last Documented by 09/02/2024 Open Access - Established Last d ocumented on 09/02/2024; 2:11 PM, Kavita Qureshi CNP; [facility] Active Problems & Conditions - E11.65 [...] EKG and importance of following up with buncher hand Current Medication - *CPAP SUPPLIES Miscellaneous Use [...] Sliding scale 3 times a day before -841 3units, 201-250- 6 units, 437-092-7lbdaq, 574-369-29ogiky, 351-400-15 units, > 400 18 units, 30 days, 0 refills - Insulin Syringe 31G X 5/16 1 ML Miscellaneous use to inject insulin two times per day, 30 days, 3 refills - Lantus 100 UNIT/ML Subcutaneous Solution Inject subcutaneouly 50 units in the morning, and 50 units before bed every day, 30 days, 5 refills - Pen [place] 32G X 5 MM Miscellaneous 32G X 5 MM Use with insulin two times per day, 30 days, 11 refills - True Metrix Blood Glucose Test In Vitro Strip Use to monitor blood sugars three times a day, 30 days, 11 refills Past Medical/Surgical History Reported: Medical: No previous hospitalizations [facility] 04-16-21 and no Previous hospitalizations or recent [...] BP-Sitting R104/73 mmHg BP Cuff SizeRegular Pulse Rate-Vtqsnbx037 bpm Temp-Oral97.9 F Wrklnl90 in Zlsvfm497 lbs Body Mass Index28.4 kg/m2 Body Surface Area1.9 m2 Oxygen Dnwsjwfovz98 % - Vitals taken 09/02/2024 12:21 pm BP-Cxlddzd03/62 mmHg - Vitals taken 09/02/2024 12:24 pm BP-Rhqtilu10/60 mmHg - Vitals taken 09/02/2024 01:06 pm BP-Iukfyia44/68 mmHg Pulse Rate-Gcgcxzx238 bpm Vital Signs: - Systolic blood pressure [...] Sliding scale 3 times a day before -068 3units, 201-250- 6 units, 370-973-2wpftf, 190-215-27hlqop, 351-400-15 units, > 400 18 units, 30 days, 0 refills EndCited [facility]02-06-2025 History of Present illness Narrative* Shock, Bette Galvan - 08/22/2024 1:45 PM EST Physical Therapy [facility] Date: 08/22/2024 Patient Name: Casandra Gonzalez : 1970 Patient is not feeling well and will not be able to make this appointment.She will return on the next appt. Bette Galvan Shock Date: 08/22/2024 [facility] Hospital Discharge instructions* Discharge Instructions* Ame Saldana DO - 08/21/2024 9:22 PM EST Make sure to drink at least 80 to 90 ounces of water every day. Do not take the gabapentin and Flexeril together. Close follow-up with your family doctor next week. Return to the emergency departmentif symptoms get worse. Return your cafeteria monitor next week. * Attachments The following attachments cannot be sent through Care Everywhere. * Dizziness (Indonesian) [facility]25 Evaluation note Includes: Assessments for all patient encounters Findings Encounter Date [Body mass index [BMI] 28.0- 28.9, adult] assessment of body mass index Open Access - Established with Kavita Qureshi CNP 08/21/2024 Last Documented On 5 4:06PM ; [facility] Type 2 diabetes mellitus Open Access - Establish ed with Kavita Qureshi CNP 08/21/2024 Last Documented On 5 4:06PM ; [facility] [Body mass index [BMI] 28.0- 28.9, adult] assessment of body mass index Medical Established Patient with Kavita Hardeep SPOILAGE WORKER 08/08/2024 Last Documented On 5 4:23PM ; [facility] Type 2 diabetes mellitus Medical Established Pat ient with Kavita Hardeep SPOILAGE WORKER 08/08/2024 Last Documented On 5 4:23PM ; [facility] [Body mass index [BMI] 30.0- 30.9, adult] assessment of body mass index Medical Established Patient with Kavita Hardeep SPOILAGE WORKER 07/04/2024 Last Documented On 4 8:14AM ; [facility] Type 2 diabetes mellitus Medical Established Pat ient with Kavita Hardeep SPOILAGE WORKER 07/04/2024 Last Documented On 4 8:14AM ; [facility] [Body mass index [BMI] 28.0- 28.9, adult] assessment of body mass index Open Access - Established with Kavita Hardeep SPOILAGE WORKER 06/06/2024 Last Documented On 4 11:06AM ; [facility] Venipuncture was performed Open Access - Establi shed with Kavita Hardeep SPOILAGE WORKER 06/06/2024 Last Documented On 4 11:06AM ; [facility] Assessment of body mass inde x [Body mass index [BMI] 31.0-31.9, adult] Medical Established Patient with Kavita Hardeep SPOILAGE WORKER 06/02/2021 Last Documented On 1 5:19PM ; [facility] Type 2 diabetes mellitus Medical Established Pat ient with Kavita Hardeep SPOILAGE WORKER 06/02/2021 Last Documented On 1 5:19PM ; [facility] Assessment of body mass inde x [Body mass index [BMI] 31.0-31.9, adult] Medical Established Patient with Kavita Hardeep SPOILAGE WORKER 05/18/2021 Last Documented On 1 5:34PM ; [facility] Assessment of body mass inde x [Body mass index [BMI] 29.0-29.9, adult] Medical New Patient with Kavita Hardeep SPOILAGE WORKER 04/21/2021 Last Documented On 1 12:10PM ; [facility] Type 2 diabetes mellitus Medical New Patient wit h Kavita Qureshi SPOILAGE WORKER 04/21/2021 Last Documented On 1 12:10PM ; [facility] Work Phone: 1(140) 292-412402-05-2025 Evaluation note Includes: Assessments for all patient encounters Findings Encounter Date [Body mass index [BMI] 28.0- 28.9, adult] assessment of body mass index Open Access - Established with Kavita Hardeep SPOILAGE WORKER 08/21/2024 Last Documented On 5 4:06PM ; [facility] Type 2 diabetes mellitus Open Access - Establish ed with Kavita Hardeep SPOILAGE WORKER 08/21/2024 Last Documented On 5 4:06PM ; [facility] [Body mass index [BMI] 28.0- 28.9, adult] assessment of body mass index Medical Established Patient with Kavita Hardeep SPOILAGE WORKER 08/08/2024 Last Documented On 5 4:22PM ; [facility] Type 2 diabetes mellitus Medical Established Pat ient with Kavita Hardeep SPOILAGE WORKER 08/08/2024 Last Documented On 5 4:22PM ; [facility] [Body mass index [BMI] 30.0- 30.9, adult] assessment of body mass index Medical Established Patient with Kavita Hardeep SPOILAGE WORKER 07/04/2024 Last Documented On 4 8:14AM ; [facility] Type 2 diabetes mellitus Medical Established Pat ient with Kavita Hardeep SPOILAGE WORKER 07/04/2024 Last Documented On 4 8:14AM ; [facility] [Body mass index [BMI] 28.0- 28.9, adult] assessment of body mass index Open Access - Established with Kavita Hardeep SPOILAGE WORKER 06/06/2024 Last Documented On 4 11:06AM ; [facility] Venipuncture was performed Open Access - Establi shed with Kavita Hardeep SPOILAGE WORKER 06/06/2024 Last Documented On 4 11:06AM ; [facility] Assessment of body mass inde x [Body mass index [BMI] 31.0-31.9, adult] Medical Established Patient with Kavita Hardeep SPOILAGE WORKER 06/02/2021 Last Documented On 1 5:19PM ; [facility] Type 2 diabetes mellitus Medical Established Pat ient with Kavita Hardeep SPOILAGE WORKER 06/02/2021 Last Documented On 1 5:19PM ; [facility] Assessment of body mass inde x [Body mass index [BMI] 31.0-31.9, adult] Medical Established Patient with Kavita Hardeep SPOILAGE WORKER 05/18/2021 Last Documented On 1 5:34PM ; [facility] Assessment of body mass inde x [Body mass index [BMI] 29.0-29.9, adult] Medical New Patient with Kavita Hardeep SPOILAGE WORKER 04/21/2021 Last Documented On 1 12:10PM ; [facility] Type 2 diabetes mellitus Medical New Patient wit h Kavita Hardeep SPOILAGE WORKER 04/21/2021 Last Documented On 1 12:10PM ; [facility] Work Phone: [phone]) 622-417202-05-2025 Evaluation note Includes: Assessments for all patient encounters Findings Encounter Date [Body mass index [BMI] 28.0- 28.9, adult] assessment of body mass index Open Access - Established with Kavita Hardeep SPOILAGE WORKER 08/21/2024 Last Documented On 5 5:18PM ; [facility] Type 2 diabetes mellitus Open Access - Establish ed with Kavita Hardeep SPOILAGE WORKER 08/21/2024 Last Documented On 5 5:18PM ; [facility] [Body mass index [BMI] 28.0- 28.9, adult] assessment of body mass index Medical Established Patient with Kavita Hardeep SPOILAGE WORKER 08/08/2024 Last Documented On 5 4:23PM ; [facility] Type 2 diabetes mellitus Medical Established Pat ient with Kavita Hardeep SPOILAGE WORKER 08/08/2024 Last Documented On 5 4:23PM ; [facility] [Body mass index [BMI] 30.0- 30.9, adult] assessment of body mass index Medical Established Patient with Kavita Hardeep SPOILAGE WORKER 07/04/2024 Last Documented On 4 8:14AM ; [facility] Type 2 diabetes mellitus Medical Established Pat ient with Kavita Hardeep SPOILAGE WORKER 07/04/2024 Last Documented On 4 8:14AM ; [facility] [Body mass index [BMI] 28.0- 28.9, adult] assessment of body mass index Open Access - Established with Kavita Hardeep SPOILAGE WORKER 06/06/2024 Last Documented On 4 11:06AM ; [facility] Venipuncture was performed Open Access - Establi shed with Kavita Hardeep SPOILAGE WORKER 06/06/2024 Last Documented On 4 11:06AM ; [facility] Assessment of body mass inde x [Body mass index [BMI] 31.0-31.9, adult] Medical Established Patient with Kavita Hardeep SPOILAGE WORKER 06/02/2021 Last Documented On 1 5:19PM ; [facility] Type 2 diabetes mellitus Medical Established Pat ient with Kavita Hardeep SPOILAGE WORKER 06/02/2021 Last Documented On 1 5:19PM ; [facility] Assessment of body mass inde x [Body mass index [BMI] 31.0-31.9, adult] Medical Established Patient with Kavita Hardeep SPOILAGE WORKER 05/18/2021 Last Documented On 1 5:34PM ; [facility] Assessment of body mass inde x [Body mass index [BMI] 29.0-29.9, adult] Medical New Patient with Kavita Hardeep SPOILAGE WORKER 04/21/2021 Last Documented On 1 12:10PM ; [facility] Type 2 diabetes mellitus Medical New Patient wit h Kavita Hardeep SPOILAGE WORKER 04/21/2021 Last Documented On 1 12:10PM ; [facility] Work Phone: 1(804) 202-149402-05-2025 Progress note* Progress note Date Encounter Last Documented by 08/21/2024 Open Access - Established Last d ocumented on 08/30/2024; 5:18 PM, Kavita Qureshi CNP; [facility] Active Problems & Conditions - E11.65 [...] her car Report call at 1645 to Dimitris Cecy . Current Medication - *CPAP SUPPLIES Miscellaneous [...] Sliding scale 3 times a day before -024 3units, 201-250- 6 units, 932-398-3migyc, 615-615-16dcszs, 351-400-15 units, > 400 18 units, 30 [...] day, 30 days, 5 refills - Pen [place] 32G X 5 MM Miscellaneous 32G X 5 MM Use with insulin two times per day, 30 days, 11 refills - predniSONE 20 MG Oral Tablet 5 days, 0 refills - True Metrix Blood Glucose Test In Vitro Strip Use to monitor blood sugars three times a day, 30 days, 11 refills Past Medical/Surgical History Reported: Medical: No previous hospitalizations [facility] 04-16-21. Diagnoses: Diabetes mellitus Social History Environmental [...] BP-Sitting R80/60 mmHg BP Cuff SizeRegular Pulse Rate-Rvgujqw870 bpm Temp-Oral97.7 F Mzavyu11 in Bmttje879 lbs Body Mass Index28.7 kg/m2 Body Surface Area1.9 m2 Oxygen Kxsvhwylrr20 % - Vitals taken 08/21/2024 03:17 pm BP-Donttim64/49 mmHg - Vitals taken 08/21/2024 04:02 pm BP-Trrjliy03/64 mmHg - Vitals taken 08/21/2024 04:41 pm [...] a day, 14 days, 0 refills EndCited [facility]02-04-2025 History of Present illness Narrative* Bette Gibson - 08/20/2024 3:45 PM EST Physical Therapy [facility] Date: 08/20/2024 Patient Name: Casandra Gonzalez : 1970 Patient called she is not feeling well. Will try and make . Bette Galvan Shock Date: 08/20/2024 documented in this encounterBon [facility]02-03-20[facility] Progress note* Progress note Date Encounter Last Documented by 08/19/2024 [Patient Encounter] Last shorty lam on 08/19/2024; 10:23 AM, Kavita Qureshi SPOILAGE WORKER; [facility] Active Problems & Conditions - E11.65 [...] Sliding scale 3 times a day before tjdys378-496 3units, 201-250- 6 units, 607-363-7kqlmb, 528-488-81amnbf, 351-400-15 units, > 400 18 units, 30 [...] day, 30 days, 5 refills - Pen [place] 32G X 5 MM Miscellaneous 32G X 5 MM Use with insulin two times per day, 30 days, 11 refills - predniSONE 20 MG Oral Tablet 5 days, 0 refills - True Metrix Blood Glucose Test In Vitro Strip Use to monitor blood sugars three times a day, 30 days, 11 refills Past Medical/Surgical History Reported: Medical: No previous hospitalizations [facility] 04-16-21. Diagnoses: Diabetes mellitus Allergies - NO KNOWN ENVIRONMENTAL ALLERGIES - NO KNOWN FOOD ALLERGIES - Penicillins Reaction: Hives / Urticaria - Statins Reaction: Hives / Urticaria Family History Paternal: Type 2 diabetes mellitus Maternal: Type 2 diabetes mellitus Plan StartCited- Generalized abdominal pain Outside Diagn Tests/Ultrasound: US Retroperitoneal Compl. (Renal/Bladder) (35455) [facility]02-01-2025 Hospital Discharge instructions* Discharge Instructions* Lukas Lopez MD - 08/17/2024 10:46 AM EST Please continue taking medications that you have at home as directed. * Attachments The following attachments cannot be sent through Care Everywhere. * Thoracic Strain (Indonesian) documented in this encounterBon [facility]01-28-2025 History of Present illness Narrative* Fabiana Reynolds Preet, PT - 08/13/2024 3:30 PM EST Images from the original note were not included. [facility] Daily Note Date: 08/13/2024 Patient Name: Casandra Gonzalez : 1970 (54 y.o.) Referring Provider (secondary): Dr. Shepherd ([place]) Diagnosis: Muscle Weakness Treatment Diagnosis: Back pain, Weakness PT Insurance Information: [facility] Total # of Visits Approved: 10 [...] with HEP for ROM and glut strengthening.-Met Diesel Engine Tester Goals Time Frame for Diesel Engine Tester Goals : 10 visits Diesel Engine Tester Goal 1: Pt to improve LEFS from 38/80 to >48/80 to improve pt ADL carlos. Care Home Goal 2: Pt to have 4/5 horiz ABD strength to improve posture and reduce LBP.-MET Care Home Goal 3: Pt to maintain tandum stance 10sec 2:3 B/L to improve amb and stair safety.-Met Diesel Engine Tester Goal 4: Pt to report worst pain in back 3/10 x 4 consecutive days to improve work carlos Diesel Engine Tester Goal 5: Pt to complete 20# crate lift floor to waist x10 with proper mechanics and no increased pain. Treatment Tolerance: Treatment Tolerance: Tolerated treatment well. Post Treatment Pain: 6/10 Time In: 15:20 Time Out : 16:00 Timed Code Treatment Minutes: 40 Minutes Total Treatment Time: 40 Minutes Fabiana Reynolds, PT Date: 08/13/2024 documented in this encounterBon [facility]01-23-2025 Evaluation note Includes: Assessments for all patient encounters Findings Encounter Date [Body mass index [BMI] 28.0- 28.9, adult] assessment of body mass index Medical Established Patient with Kavita Hardeep SPOILAGE WORKER 08/08/2024 Last Documented On 5 9:31AM ; [facility] Type 2 diabetes mellitus Medical Established Pat ient with Kavita Hardeep SPOILAGE WORKER 08/08/2024 Last Documented On 5 9:31AM ; [facility] [Body mass index [BMI] 30.0- 30.9, adult] assessment of body mass index Medical Established Patient with Kavita Hardeep SPOILAGE WORKER 07/04/2024 Last Documented On 4 8:14AM ; [facility] Type 2 diabetes mellitus Medical Established Pat ient with Kavita Hardeep SPOILAGE WORKER 07/04/2024 Last Documented On 4 8:14AM ; [facility] [Body mass index [BMI] 28.0- 28.9, adult] assessment of body mass index Open Access - Established with Kavitadima Qureshi SPOILAGE WORKER 06/06/2024 Last Documented On 4 11:06AM ; [facility] Venipuncture was performed Open Access - Establi shed with Kavita Hardeep SPOILAGE WORKER 06/06/2024 Last Documented On 4 11:06AM ; [facility] Assessment of body mass inde x [Body mass index [BMI] 31.0-31.9, adult] Medical Established Patient with Kavita Hardeep SPOILAGE WORKER 06/02/2021 Last Documented On 1 5:19PM ; [facility] Type 2 diabetes mellitus Medical Established Pat ient with Kavita Hardeep SPOILAGE WORKER 06/02/2021 Last Documented On 1 5:19PM ; [facility] Assessment of body mass inde x [Body mass index [BMI] 31.0-31.9, adult] Medical Established Patient with Kavita Hardeep SPOILAGE WORKER 05/18/2021 Last Documented On 1 5:34PM ; [facility] Assessment of body mass inde x [Body mass index [BMI] 29.0-29.9, adult] Medical New Patient with Kavita Hardeep SPOILAGE WORKER 04/21/2021 Last Documented On 1 12:10PM ; [facility] Type 2 diabetes mellitus Medical New Patient wit h Kavita Hardeep SPOILAGE WORKER 04/21/2021 Last Documented On 1 12:10PM ; [facility] Work Phone: [phone]) 587-686701-23-2025 Evaluation note Includes: Assessments for all patient encounters Findings Encounter Date [Body mass index [BMI] 28.0- 28.9, adult] assessment of body mass index Medical Established Patient with Kavita Hardeep SPOILAGE WORKER 08/08/2024 Last Documented On 5 9:31AM ; [facility] Type 2 diabetes mellitus Medical Established Pat ient with Kavita Hardeep SPOILAGE WORKER 08/08/2024 Last Documented On 5 9:31AM ; [facility] [Body mass index [BMI] 30.0- 30.9, adult] assessment of body mass index Medical Established Patient with Kavita Hardeep SPOILAGE WORKER 07/04/2024 Last Documented On 4 8:14AM ; [facility] Type 2 diabetes mellitus Medical Established Pat ient with Kavita Hardeep SPOILAGE WORKER 07/04/2024 Last Documented On 4 8:14AM ; [facility] [Body mass index [BMI] 28.0- 28.9, adult] assessment of body mass index Open Access - Established with Kavita Hardeep SPOILAGE WORKER 06/06/2024 Last Documented On 4 11:06AM ; [facility] Venipuncture was performed Open Access - Establi shed with Kavita Hardeep SPOILAGE WORKER 06/06/2024 Last Documented On 4 11:06AM ; [facility] Assessment of body mass inde x [Body mass index [BMI] 31.0-31.9, adult] Medical Established Patient with Kavita Hardeep SPOILAGE WORKER 06/02/2021 Last Documented On 1 5:19PM ; [facility] Type 2 diabetes mellitus Medical Established Pat ient with Kavita Hardeep SPOILAGE WORKER 06/02/2021 Last Documented On 1 5:19PM ; [facility] Assessment of body mass inde x [Body mass index [BMI] 31.0-31.9, adult] Medical Established Patient with Kavita Hardeep SPOILAGE WORKER 05/18/2021 Last Documented On 1 5:34PM ; [facility] Assessment of body mass inde x [Body mass index [BMI] 29.0-29.9, adult] Medical New Patient with Kavita Hardeep SPOILAGE WORKER 04/21/2021 Last Documented On 1 12:10PM ; [facility] Type 2 diabetes mellitus Medical New Patient wit h Kavita Hardeep SPOILAGE WORKER 04/21/2021 Last Documented On 1 12:10PM ; [facility] Work Phone: [phone]) 436-453101-23-2025 Progress note* Progress note Date Encounter Last Documented by 08/08/2024 Medical Established Patient Last documented on 08/13/2024; 9:31 AM, Kavita Qureshi SPOILAGE WORKER; [facility] Active Problems & Conditions - E11.65 [...] Sliding scale 3 times a day before psoiy452-630 3units, 201-250- 6 units, 269-475-7jjhcc, 801-578-28wefjn, 351-400-15 units, > 400 18 units, 30 days, 0 refills - Lantus SoloStar 100 UNIT/ML Subcutaneous Solution Pen-injector Inject subcutaneouly 50 units in the morning, and 50 units before bed every day, 30 days, 5 refills - Pen [place] 32G X 5 MM Miscellaneous 32G X 5 MM Use with insulin two times per day, 30 days, 11 refills - predniSONE 20 MG Oral Tablet 5 days, 0 refills - True Metrix Blood Glucose Test In Vitro Strip Use to monitor blood sugars three times a day, 30 days, 11 refills Past Medical/Surgical History Reported: Medical: No previous hospitalizations [facility] 04-16-21. Diagnoses: Diabetes mellitus Social History Environmental [...] BP-Sitting L134/66 mmHg BP Cuff SizeRegular Pulse Rate-Seftxil662 bpm Respiration Rate18 per min Temp-Oral98.3 F Dlvbux23 in Vwhmpz935 lbs Body Mass Index28.7 kg/m2 Body Surface Area1.9 m2 Oxygen Ztsbaqzzys20 % Vital Signs: - Systolic blood pressure [...] Leukocyte Estrase Negative and Blood Negative. Specific [place] 1.015 and pH 5.5. Blood Analysis: Blood Endocrine Laboratory Tests: Value Blood glucose level by fingerstick Non-fasting 456 mg/dl Laboratory-based Chemistry: Urine Tests: Value Urine microalbumin dipstick test was 10 + Urine albumin/creatinine by test strip 30-300. Drug Screen: Urine drug screen by multiple class procedure. THC Not Present, PCP Not Present, OXY Not Present, [id number] Not Present, MTD Not Present, MET Not [...] back pain, unspecified In House Medications/Inject/Aerosol Codes: 61304 Therapeutic Prophy or Diag Injection, EACH In House Medications/Meds: Ketorolac 60 mg/2ml INJ (Toradol) Cyclobenzaprine HCl 10 MG tablet Take one tablet three times per day as needed for pain, 10 days, 0 refills EndCited StartCited- Pain in thoracic spine Outside Diagn Tests/X-RAY: XR Spine Thoracic 4+ Views (36123), XR Spine Cervical 3 Views or less (95410) Referrals: Orthopedics Instructions: Please make a referral to:[facility] [place] Gabapentin 300 [...] Not planning a in the next year. [facility]01-23-2025 Progress note* Progress note Date Encounter Last Documented by 08/08/2024 Medical Established Patient Last documented on 08/21/2024; 4:23 PM, Kavita Qureshi CNP; [facility] Active Problems & Conditions - E11.65 [...] Sliding scale 3 times a day before abonv908-509 3units, 201-250- 6 units, 791-964-0qqswx, 635-936-48ufgnt, 351-400-15 units, > 400 18 units, 30 days, 0 refills - Lantus SoloStar 100 UNIT/ML Subcutaneous Solution Pen-injector Inject subcutaneouly 50 units in the morning, and 50 units before bed every day, 30 days, 5 refills - Pen [place] 32G X 5 MM Miscellaneous 32G X 5 MM Use with insulin two times per day, 30 days, 11 refills - predniSONE 20 MG Oral Tablet 5 days, 0 refills - True Metrix Blood Glucose Test In Vitro Strip Use to monitor blood sugars three times a day, 30 days, 11 refills Past Medical/Surgical History Reported: Medical: No previous hospitalizations [facility] 04-16-21. Diagnoses: Diabetes mellitus Social History Environmental [...] BP-Sitting L134/66 mmHg BP Cuff SizeRegular Pulse Rate-Qaedqqq336 bpm Respiration Rate18 per min Temp-Oral98.3 F Gmbuwq08 in Wagcql593 lbs Body Mass Index28.7 kg/m2 Body Surface Area1.9 m2 Oxygen Logcmxnxvm59 % Vital Signs: - Systolic blood pressure [...] Leukocyte Estrase Negative and Blood Negative. Specific [place] 1.015 and pH 5.5. Blood Analysis: Hemoglobin [...] Present, PCP Not Present, OXY Not Present, [id number] Not Present, MTD Not Present, MET Not [...] screening for malignant neoplasm of colon Lab: [facility] EndCited StartCited- Low back pain, unspecified In House Medications/Inject/Aerosol Codes: 45439 Therapeutic Prophy or Diag Injection, EACH In House Medications/Meds: Ketorolac 60 mg/2ml INJ (Toradol) Cyclobenzaprine HCl 10 MG tablet Take one tablet three times per day as needed for pain, 10 days, 0 refills EndCited StartCited- Pain in thoracic spine Outside Diagn Tests/X-RAY: XR Spine Thoracic 4+ Views (60110), XR Spine Cervical 3 Views or less (21541) Referrals: Orthopedics Instructions: Please make a referral to:[facility] [place] Gabapentin 300 MG capsule Take one tablet [...] Not planning a in the next year. [facility]01-23-2025 Progress note* Progress note Date Encounter Last Documented by 08/08/2024 Medical Established Patient Last documented on 08/21/2024; 4:22 PM, Kavita Qureshi CNP; [facility] Active Problems & Conditions - E11.65 [...] to severe pain, reports pain is currently 10 sharp Has been following up with chiropractor [...] Sliding scale 3 times a day before mgdir732-258 3units, 201-250- 6 units, 065-836-5hdsrr, 011-094-74khpmz, 351-400-15 units, > 400 18 units, 30 days, 0 refills - Lantus SoloStar 100 UNIT/ML Subcutaneous Solution Pen-injector Inject subcutaneouly 50 units in the morning, and 50 units before bed every day, 30 days, 5 refills - Pen [place] 32G X 5 MM Miscellaneous 32G X 5 MM Use with insulin two times per day, 30 days, 11 refills - predniSONE 20 MG Oral Tablet 5 days, 0 refills - True Metrix Blood Glucose Test In Vitro Strip Use to monitor blood sugars three times a day, 30 days, 11 refills Past Medical/Surgical History Reported: Medical: No previous hospitalizations [facility] 04-16-21. Diagnoses: Diabetes mellitus Social History Environmental [...] BP-Sitting L134/66 mmHg BP Cuff SizeRegular Pulse Rate-Zqmyqrh743 bpm Respiration Rate18 per min Temp-Oral98.3 F Cbkcqj82 in Kpbesg088 lbs Body Mass Index28.7 kg/m2 Body Surface Area1.9 m2 Oxygen Bdwouuanvm29 % Vital Signs: - Systolic blood pressure [...] Leukocyte Estrase Negative and Blood Negative. Specific [place] 1.015 and pH 5.5. Blood Analysis: Hemoglobin [...] Present, PCP Not Present, OXY Not Present, [id number] Not Present, MTD Not Present, MET Not [...] screening for malignant neoplasm of colon Lab: [facility] EndCited StartCited- Low back pain, unspecified In House Medications/Inject/Aerosol Codes: 39752 Therapeutic Prophy or Diag Injection, EACH In House Medications/Meds: Ketorolac 60 mg/2ml INJ (Toradol) Cyclobenzaprine HCl 10 MG tablet Take one tablet three times per day as needed for pain, 10 days, 0 refills EndCited StartCited- Pain in thoracic spine Outside Diagn Tests/X-RAY: XR Spine Thoracic 4+ Views (60420), XR Spine Cervical 3 Views or less (92747) Referrals: Orthopedics Instructions: Please make a referral to:[facility] [place] Gabapentin 300 MG capsule Take one tablet [...] a in the next year. [facility]01-14-2025 History of Present illness Narrative* RocioSamira martinez D - 07/30/2024 1:45 PM EST Images from the original note were not included. [facility] Daily Note Date: 07/30/2024 Patient Name: Casandra Gonzalez : 1970 (54 y.o.) Referring Provider (secondary): Kavita Qureshi CNP Diagnosis: Muscle Weakness Treatment Diagnosis: Back pain, Weakness PT Insurance Information: [facility] Total # of Visits Approved: 10 Per Physician Order Total # of Visits to Date: 4 No Show: 1 Canceled Appointment: 0 Pre-Treatment Pain: 11/23 Assessment Assessment: Pain 10 which . She refuses shuttle today d/t [...] with HEP for ROM and glut strengthening. Care Home Goals Time Frame for Care Home Goals : 10 visits Diesel Engine Tester Goal 1: Pt to improve LEFS from 38/80 to >48/80 to improve pt ADL carlos. Diesel Engine Tester Goal 2: Pt to have 4/5 horiz ABD strength to improve posture and reduce LBP. Diesel Engine Tester Goal 3: Pt to maintain tandum stance 10sec 2:3 B/L to improve amb and stair safety. Care Home Goal 4: Pt to report worst pain in back 3/10 x 4 consecutive days to improve work carlos Care Home Goal 5: Pt to complete 20# crate lift floor to waist x10 with proper mechanics and no increased pain. Treatment Tolerance: Carlos well Post Treatment Pain: 5/10 Time In: 1345 Time Out : 1425 Timed Code Treatment Minutes: 40 Minutes Total Treatment Time: 40 Minutes Samira Yoo MACHINE BINDING FOLDER Date: 07/30/2024 documented in this encounterBon [facility]01-09-2025 History of Present illness Narrative* Samira Yoo - 07/25/2024 1:30 PM EST Images from the original note were not included. [facility] Daily Note Date: 07/25/2024 Patient Name: Casandra Gonzalez : 1970 (54 y.o.) Referring Provider (secondary): Kavita Qureshi CNP Diagnosis: Muscle Weakness Treatment Diagnosis: Back pain, Weakness PT [facility] Total # of Visits Approved: 10 Per Physician Order Total # of Visits to Date: 3 No Show: 1 Canceled Appointment: 0 Pre-Treatment Pain: 5/10 Assessment Assessment: Pt reports pain 5/10 today. Performed ex/NMR as outlined. Progressed with [...] with HEP for ROM and glut strengthening. Care Home Goals Time Frame for Diesel Engine Tester Goals : 10 visits Care Home Goal 1: Pt to improve LEFS from 38/80 to >48/80 to improve pt ADL carlos. Diesel Engine Tester Goal 2: Pt to have 4/5 horiz ABD strength to improve posture and reduce LBP. Care Home Goal 3: Pt to maintain tandum stance 10sec 2:3 B/L to improve amb and stair safety. Care Home Goal 4: Pt to report worst pain in back 3/10 x 4 consecutive days to improve work carlos Diesel Engine Tester Goal 5: Pt to complete 20# crate lift floor to waist x10 with proper mechanics and no increased pain. Post Treatment Pain: 09/23 Time In: 1330 Time Out : 1415 Timed and total 45 min Samira Yoo MACHINE BINDING FOLDER Date: 07/25/2024 [facility] History of Present illness Narrative* Judy Miller, PT - 07/16/2024 1:00 PM EST [facility] Date: 07/16/2024 Patient Name: Casandra Gonzalez : 1970 Pt No Showed Appt - called and spoke to pt. She did not relies today's date. Pt confirmed her appt for 07/18/23 at 1:45pm Judy Miller, PT Date: 07/16/2024 [facility] Evaluation note Includes: Assessments for all patient encounters Findings Encounter Date [Body mass index [BMI] 30.0- 30.9, adult] assessment of body mass index Medical Established Patient with Kaivta Qureshi CNP 07/04/2024 Last Documented On 4 8:14AM ; [facility] Type 2 diabetes mellitus Medical Established Pat ient with Kavita Qureshi CNP 07/04/2024 Last Documented On 4 8:14AM ; [facility] [Body mass index [BMI] 28.0- 28.9, adult] assessment of body mass index Open Access - Established with Kavita Qureshi CNP 06/06/2024 Last Documented On 4 11:06AM ; [facility] Venipuncture was performed Open Access - Establi shed with Kavita Qureshi CNP 06/06/2024 Last Documented On 4 11:06AM ; [facility] Assessment of body mass inde x [Body mass index [BMI] 31.0-31.9, adult] Medical Established Patient with Kavita Qureshi CNP 06/02/2021 Last Documented On 1 5:19PM ; [facility] Type 2 diabetes mellitus Medical Established Pat ient with Kavita Qureshi CNP 06/02/2021 Last Documented On 1 5:19PM ; [facility] Assessment of body mass inde x [Body mass index [BMI] 31.0-31.9, adult] Medical Established Patient with Kavita Qureshi CNP 05/18/2021 Last Documented On 1 5:34PM ; [facility] Assessment of body mass inde x [Body mass index [BMI] 29.0-29.9, adult] Medical New Patient with Kavita Qureshi CNP 04/21/2021 Last Documented On 1 12:10PM ; [facility] Type 2 diabetes mellitus Medical New Patient wit h Kavita Qureshi CNP 04/21/2021 Last Documented On 1 12:10PM ; [facility] Work Phone: 1(940) 468-878512-19-2024 Progress note* Progress note Date Encounter Last Documented by 07/04/2024 Medical Established Patient Last documented on 07/08/2024; 8:14 AM, Kavita Qureshi CNP; [facility] Active Problems & Conditions - E11.65 [...] but then averages in 300s Patient has mochxx59 pounds since last visit, blames this on [...] day, 30 days, 0 refills - Pen [place] 32G X 5 MM Miscellaneous 32G X 5 MM Use with insulin two times per day, 30 days, 11 refills Past Medical/Surgical History Reported: Medical: No previous hospitalizations [facility] 04-16-21. Diagnoses: Diabetes mellitus Social History Environmental [...] BP-Sitting R121/81 mmHg BP Cuff SizeRegular Pulse Rate-Lqasqas651 bpm Temp-Oral98.1 F Hnbnms39 in Dwphpq025 lbs 3.2 oz Body Mass Index30.9 kg/m2 Body Surface Area2 m2 Oxygen Nzzivgsyec11 % - Vitals taken 07/04/2024 02:48 pm BP-Qwofwss839/82 mmHg Vital Signs: - Systolic blood pressure [...] Sliding scale 3 times a day before nodao634-046 3units, 201-250- 6 units, 194-202-3fvoot, 035-577-37kxkgl, 351-400-15 units, > 400 18 units, 30 [...] per day, 30 days, 11 refills EndCited [facility]12-09-2024 Progress note* Progress note Date Encounter Last Documented by 06/24/2024 [Patient Encounter] Last shorty lam on 06/24/2024; 1:46 PM, Kavita Qureshi SPOILAGE WORKER; [facility] Active Problems & Conditions - E11.65 [...] day, 30 days, 0 refills - Pen [place] 32G X 5 MM Miscellaneous 32G X 5 MM Use with insulin two times per day, 30 days, 11 refills Past Medical/Surgical History Reported: Medical: No previous hospitalizations [facility] 04-16-21. Diagnoses: Diabetes mellitus Allergies - NO [...] daily. E10.65, 28 days, 6 refills EndCited [facility]11-25-2024 Progress note* Progress note Date Encounter Last Documented by 06/10/2024 Chart Update Last documented on 06/10/2024; 9:45 AM, Juan Choudhary OIL PIPELINE DISPATCHER; [facility] Active Problems & Conditions - E11.65 [...] day, 30 days, 0 refills - Pen [place] 32G X 5 MM Miscellaneous 32G X 5 MM Use with insulin two times per day, 30 days, 11 refills Past Medical/Surgical History Reported: Medical: Previous hospitalizations [facility] 04-16-21. Diagnoses: Diabetes mellitus Allergies - NO KNOWN ENVIRONMENTAL ALLERGIES - NO KNOWN FOOD ALLERGIES - Penicillins Reaction: Hives / Urticaria - Statins Reaction: Hives / Urticaria Family History Paternal: Type 2 diabetes mellitus Maternal: Type 2 diabetes mellitus Plan StartCited- Other Fenofibrate 160 MG tablet 1 tab daily, 90 days, 1 refills EndCited [facility]11-21-2024 Evaluation note Includes: Assessments for all patient encounters Findings Encounter Date [Body mass index [BMI] 28.0- 28.9, adult] assessment of body mass index Open Access - Established with Kavita Qureshi CNP 06/06/2024 Last Documented On 4 2:03PM ; [facility] Venipuncture was performed Open Access - Establi shed with Kavita Qureshi CNP 06/06/2024 Last Documented On 4 2:03PM ; [facility] Assessment of body mass inde x [Body mass index [BMI] 31.0-31.9, adult] Medical Established Patient with Kavita Qureshi CNP 06/02/2021 Last Documented On 1 5:19PM ; [facility] Type 2 diabetes mellitus Medical Established Pat ient with Kavita Hardeep SPOILAGE WORKER 06/02/2021 Last Documented On 1 5:19PM ; [facility] Assessment of body mass inde x [Body mass index [BMI] 31.0-31.9, adult] Medical Established Patient with Kavita Hardeep SPOILAGE WORKER 05/18/2021 Last Documented On 1 5:34PM ; [facility] Assessment of body mass inde x [Body mass index [BMI] 29.0-29.9, adult] Medical New Patient with Kavita Hardeep SPOILAGE WORKER 04/21/2021 Last Documented On 1 12:10PM ; [facility] Type 2 diabetes mellitus Medical New Patient wit h Kavita Hardeep SPOILAGE WORKER 04/21/2021 Last Documented On 1 12:10PM ; [facility] Work Phone: 1(397) 440-333511-21-2024 Evaluation note Includes: Assessments for all patient encounters Findings Encounter Date [Body mass index [BMI] 28.0- 28.9, adult] assessment of body mass index Open Access - Established with Kavita Hardeep SPOILAGE WORKER 06/06/2024 Last Documented On 4 11:06AM ; [facility] Venipuncture was performed Open Access - Establi shed with Kavita Hardeep SPOILAGE WORKER 06/06/2024 Last Documented On 4 11:06AM ; [facility] Assessment of body mass inde x [Body mass index [BMI] 31.0-31.9, adult] Medical Established Patient with Kavita Hardeep SPOILAGE WORKER 06/02/2021 Last Documented On 1 5:19PM ; [facility] Type 2 diabetes mellitus Medical Established Pat ient with Kavita Hardeep SPOILAGE WORKER 06/02/2021 Last Documented On 1 5:19PM ; [facility] Assessment of body mass inde x [Body mass index [BMI] 31.0-31.9, adult] Medical Established Patient with Kavita Hardeep SPOILAGE WORKER 05/18/2021 Last Documented On 1 5:34PM ; [facility] Assessment of body mass inde x [Body mass index [BMI] 29.0-29.9, adult] Medical New Patient with Kavita Hardeep SPOILAGE WORKER 04/21/2021 Last Documented On 1 12:10PM ; [facility] Type 2 diabetes mellitus Medical New Patient wit thomas Lujan Hardeep SPOILAGE WORKER 04/21/2021 Last Documented On 1 12:10PM ; [facility] Work Phone: 1(634) 200-756011-21-2024 Evaluation note Includes: Assessments for all patient encounters Findings Encounter Date [Body mass index [BMI] 28.0- 28.9, adult] assessment of body mass index Open Access - Established with Kavita Hardeep SPOILAGE WORKER 06/06/2024 Last Documented On 4 11:06AM ; [facility] Venipuncture was performed Open Access - Establi shed with Kavita Hardeep SPOILAGE WORKER 06/06/2024 Last Documented On 4 11:06AM ; [facility] Assessment of body mass inde x [Body mass index [BMI] 31.0-31.9, adult] Medical Established Patient with Kavita Hardeep SPOILAGE WORKER 06/02/2021 Last Documented On 1 5:19PM ; [facility] Type 2 diabetes mellitus Medical Established Pat ient with Kavita Hardeep SPOILAGE WORKER 06/02/2021 Last Documented On 1 5:19PM ; [facility] Assessment of body mass inde x [Body mass index [BMI] 31.0-31.9, adult] Medical Established Patient with Kavita Hardeep SPOILAGE WORKER 05/18/2021 Last Documented On 1 5:34PM ; [facility] Assessment of body mass inde x [Body mass index [BMI] 29.0-29.9, adult] Medical New Patient with Kavita Hardeep SPOILAGE WORKER 04/21/2021 Last Documented On 1 12:10PM ; [facility] Type 2 diabetes mellitus Medical New Patient wit thomas Lujan Hardeep SPOILAGE WORKER 04/21/2021 Last Documented On 1 12:10PM ; [facility] Work Phone: 1(617) 976-795511-21-2024 Progress note* Progress note Date Encounter Last Documented by 06/06/2024 Open Access - Established Last d ocumented on 06/16/2024; 11:06 AM, Kavita Qureshi CNP; [facility] Active Problems & Conditions - [...] Medical/Surgical History Reported: Medical: No previous hospitalizations [facility] 04-16-21. Diagnoses: Diabetes mellitus Social History Environmental [...] BP-Sitting R115/78 mmHg BP Cuff SizeRegular Pulse Rate-Ystwnlq877 bpm Respiration Rate18 per min Temp-Oral98.1 F Cgkbay79 in Ornejw341 lbs 6.4 oz Body Mass Index28.1 kg/m2 Body Surface Area1.9 m2 Oxygen Lveehaovoa00 % Vital Signs: - Systolic blood pressure [...] physical activity WILL REFER TO PT AND BUILDING OFFICIAL LEVEMIR IS NOT AVAILABLE SO WILL START [...] Physical Therapy Instructions: Please make a referral to:[facility] Fax [phone] EndCited StartCited- Type 2 diabetes mellitus with hyperglycemia Lab: Hgb A1c with eAG Estimation Lantus SoloStar 100 UNIT/ML mL Inject subcutaneouly 20 units in the morning, and 20 units before bed every day, 30 days, 0 refills EndCited StartCited- Type 2 diabetes mellitus without complications Pen [place] 32G X 5 MM each Use with insulin two times per day, 30 days, 11 refills EndCited Other - Patient tolerated venipuncture well; - Number of attempts for venipuncture two User Defined 1 Not planning a in the next year. [facility]12-07-2022 Miscellaneous Notes* Certification - Cecilio Saucedo MD - 06/22/2022 6:10 PM EST I certify that this patient does not requires inpatient services at this time. Plans for post hospitalization care will be discharge to home. * Nursing Notes - Alison Doherty RN - 06/22/2022 6:06 PM EST Patient wheeled out by LIGHT ARMORED VEHICLE OFFICER * Nursing Notes - Alison Doherty RN - 06/22/2022 5:00 PM EST Patient educated on discharge instructions and medications Patient eating dinner prior to leaving * Nursing Notes - Alison Doherty RN - 06/22/2022 4:54 PM EST Notified [place] SENIOR ELECTRICAL CONTROLS ENGINEER of CO2 - 20 K - 3.7 Phos - 2.0 Glucose - 190 OK to discharge per SENIOR ELECTRICAL CONTROLS ENGINEER * Nursing Notes - Alison Doherty RN [...] bolus. Faxed to pharmacy documented in this [facility]12-07-2022 Note* Certification - Cecilio Saucedo MD - 06/22/2022 6:10 PM EST I certify that this patient does not requires inpatient services at this time. Plans for post hospitalization care will be discharge to home. [facility] Work Phone: 1(361) [phone] Note* Nursing Notes - Alison Doherty RN - 06/22/2022 6:06 PM EST Patient wheeled out by LIGHT ARMORED VEHICLE OFFICER [facility] [employer] [id number] Note* Nursing Notes - Alison Doherty RN - 06/22/2022 5:00 PM EST Patient educated on discharge instructions and medications Patient eating dinner prior to leaving [facility] [employer] [id number] Note* Nursing Notes - Alison Doherty RN - 06/22/2022 4:54 PM EST [facility] SENIOR ELECTRICAL CONTROLS ENGINEER of CO2 - 20 K - 3.7 Phos - 2.0 Glucose - 190 OK to discharge per SENIOR ELECTRICAL CONTROLS ENGINEER [facility] [employer] [id number] Note* Nursing Notes - Alison Doherty RN - 06/22/2022 4:31 PM EST Assessment unchanged unless otherwise charted Call light within reach No denies pain Patient is up in the chair Waiting of 4pm renal panel to result to determine is patient is eligible for discharge [facility] [employer] [id number] Note* Nursing Notes - Alison Doherty RN - 06/22/2022 1:00 PM EST Assessment unchanged unless otherwise charted Call light within reach No denies pain [facility]12-07-2022 History of Present illness Narrative* ASH Sanches - 06/22/2022 11:27 AM ESTSummary: Social Service Assessment 06/22/22 1115 Information Source Information Source patient ;review of medical record Information Source Name Casandra Gonzalez Information Source Number [phone] Contact Information This Ciaio Counter Molder is Primary Page Technician/SW Yes Social Work Contact Name ASH Sanches Drafter [employer]'s Living Environment Lives With alone Living Arrangements [...] 52 year old female who presented to [facility] on June 21 with complaints of dizziness and weakness since Monday. Patient was admitted to [facility] ICU for DKA on an insulin drip. Visit with patient Casandra Gonzalez and daughter at bedside. Patient was laying flat, awake in bed and agreeable to talk with this HOTEL CUSTODIAN. Casandra states that she is current with [...] states that she checks hersugars with a Freestyle Titus but does not [...] better blood sugar control and options. M[facility] [employer] Programmer provided glucometer for home going. documented in this [facility]12-07-2022 Hospital course Narrative* Brijesh Taveras, JOLENE-SPOILAGE WORKER - 06/22/2022 10:54 AM EST Discharge Summary [...] daily. Generic drug: Aspirin FreeStyle Titus 2 [place] Systm NISH 1 Each by Unknown route [...] tolerated Discharge Diet: Diabetic Discharge Follow-up: Kavita Qureshi, SPOILAGE WORKER [address] [place] [address] Call Post-Hospital Follow Up Manish Shea MD [address] [facility] [address] Call Post-Hospital Follow Up Discharge Disposition: Patient will be discharged in stable condition. Discharge Time: Including assessment, planning, and medication reconciliation was 13 min of SPOILAGE WORKER time. Brijesh Taveras CNP completing Discharge Summary for Dr. Saucedo Please note Portions of this note utilized [employer] dictation software, please excuse any typographical or grammatical errors Associated attestation - Cecilio Saucedo MD - 06/22/2022 8:47 PM EST I have independently interviewed and examined the patient. I have discussed nj elements of the care plan with the SENIOR ELECTRICAL CONTROLS ENGINEER and I agree with the findings and care plan as stated above. documented in this [facility]12-07-2022 History and physical note* Brijesh Taveras APRN-TONY [...] mouth daily. Past Week Continuous Blood Gluc Yacht Master (FreeStyle Titus 2 [place] Systm) Device 1 Each by Unknown route [...] Use Authorization (EUA) for the qualitative detection rmNCLA-WiT-5 nucleic acid. COLOR, URINE 06/21/2022 YELLOW APPEARANCE, URINE 06/21/2022 CLEAR Specific [place], Urine 06/21/2022 >1.030 (H) PH URINE 06/21/2022 [...] GLUCOSE, POINT OF CARE 06/21/2022 400 (H) Collector Of Port 06/21/2022 205,067 MAGNESIUM 06/22/2022 2.0 GLUCOSE 06/22/2022 [...] GLUCOSE, POINT OF CARE 06/21/2022 393 (H) [place] Port 06/21/2022 206,278 GLUCOSE, POINT OF CARE 06/21/2022 280 (H) Collect[place] Port 06/21/2022 204,702 GLUCOSE, POINT OF CARE 06/21/2022 210 (H) Collector Of Port 06/21/2022 204,702 GLUCOSE, POINT OF CARE 06/21/2022 175 (H) Collector Of Port 06/21/2022 204,702 GLUCOSE, POINT OF CARE 06/21/2022 192 (H) Collector Of Port 06/21/2022 204,702 GLUCOSE, POINT OF CARE 06/22/2022 221 (H) Collector Of Port 06/22/2022 204,702 GLUCOSE, POINT OF CARE 06/22/2022 212 (H) Collector Of Port 06/22/2022 204,702 GLUCOSE, POINT OF CARE 06/22/2022 214 (H) Collector Of Port 06/22/2022 206,907 MAGNESIUM 06/22/2022 1.9 GLUCOSE 06/22/2022 [...] GLUCOSE, POINT OF CARE 06/22/2022 245 (H) Collector Of Port 06/22/2022 204,702 GLUCOSE, POINT OF CARE 06/22/2022 242 (H) Collector Of Port 06/22/2022 207,486 GLUCOSE, POINT OF CARE 06/22/2022 252 (H) Collector Of Port 06/22/2022 204,702 GLUCOSE, POINT OF CARE 06/22/2022 234 (H) Collector Of Port 06/22/2022 207,019 GLUCOSE, POINT OF CARE 06/22/2022 230 (H) Collector Of Port 06/22/2022 207,019 WBC (WHITE BLOOD COUNT) 06/22/2022 [...] GLUCOSE, POINT OF CARE 06/22/2022 213 (H) Collector Of Port 06/22/2022 207,019 GLUCOSE, POINT OF CARE 06/22/2022 214 (H) Collector Of Port 06/22/2022 207,019 GLUCOSE, POINT OF CARE 06/22/2022 340 (H) Collector Of Port 06/22/2022 207,019 Impression and Plan: Principal Problem: [...] for Dr. Saucedo 21 minutes spent of SPOILAGE WORKER time including assessment, planning, and discussion with nursing staff and patient Please note Portions of this note utilized SoftArt dictation software, please excuse any typographical or grammatical errors Associated attestation - Cecilio Saucedo MD - 06/22/2022 8:49 PM EST I have independently interviewed and examined the patient. I have discussed nj elements of the care plan with the SENIOR ELECTRICAL CONTROLS ENGINEER and I agree with the findings and [...] Will follow w pmd as outpt See [facility] AuditFile [id number] Evaluation + Plan note* Assessment & Plan Note - TEODORO Ruiz - 06/22/2022 10:50 AM ESTAssociated Problem(s): Mixed hyperlipidemia Resume home medications Follow-up with PCP after discharge [facility] AuditFile [id number] Evaluation + Plan note* Assessment & Plan Note - TEODORO Ruiz - 06/22/2022 10:50 AM ESTAssociated Problem(s): Metabolic acidosis Secondary to DKA Volume expand Trend labs [facility] AuditFile [id number] Evaluation + Plan note* Assessment & Plan Note - TEODORO Ruiz - 06/22/2022 10:50 AM ESTAssociated Problem(s): Medical non-compliance Importance of medical compliance discussed with patient [facility]12-07-2022 Evaluation + Plan note* Assessment & Plan Note - TEODORO Ruiz - 06/22/2022 10:50 AM ESTAssociated Problem(s): Electrolyte imbalance Replace potassium and phosphorus Trend labs [facility]12-07-2022 History and physical note* TEODORO Ruiz - [...] mouth daily. Past Week Continuous Blood Gluc Yacht Master (FreeStyle Titus 2 [place] Systm) Device 1 Each by Unknown route [...] 99.2 F (37.3 C) Temporal -- -- 06/22/22729 96/68 -- -- 110 (!) 29 06/22/22 [...] Use Authorization (EUA) for the qualitative detection uyWZYS-BqQ-0 nucleic acid. COLOR, URINE 06/21/2022 YELLOW APPEARANCE, URINE 06/21/2022 CLEAR Specific [place], Urine 06/21/2022 >1.030 (H) PH URINE 06/21/2022 [...] GLUCOSE, POINT OF CARE 06/21/2022 400 (H) Collector Of Port 06/21/2022 205,067 MAGNESIUM 06/22/2022 2.0 GLUCOSE 06/22/2022 [...] GLUCOSE, POINT OF CARE 06/21/2022 393 (H) Collector Of Port 06/21/2022 206,278 GLUCOSE, POINT OF CARE 06/21/2022 280 (H) Collector Of Port 06/21/2022 204,702 GLUCOSE, POINT OF CARE 06/21/2022 210 (H) Collector Of Port 06/21/2022 204,702 GLUCOSE, POINT OF CARE 06/21/2022 175 (H) Collector Of Port 06/21/2022 204,702 GLUCOSE, POINT OF CARE 06/21/2022 192 (H) Collector Of Port 06/21/2022 204,702 GLUCOSE, POINT OF CARE 06/22/2022 221 (H) Collector Of Port 06/22/2022 204,702 GLUCOSE, POINT OF CARE 06/22/2022 212 (H) Collector Of Port 06/22/2022 204,702 GLUCOSE, POINT OF CARE 06/22/2022 214 (H) Collector Of Port 06/22/2022 206,907 MAGNESIUM 06/22/2022 1.9 GLUCOSE 06/22/2022 [...] GLUCOSE, POINT OF CARE 06/22/2022 245 (H) Collector Of Port 06/22/2022 204,702 GLUCOSE, POINT OF CARE 06/22/2022 242 (H) Collector Of Port 06/22/2022 207,486 GLUCOSE, POINT OF CARE 06/22/2022 252 (H) Collector Of Port 06/22/2022 204,702 GLUCOSE, POINT OF CARE 06/22/2022 234 (H) Collector Of Port 06/22/2022 207,019 GLUCOSE, POINT OF CARE 06/22/2022 230 (H) Collector Of Port 06/22/2022 207,019 WBC (WHITE BLOOD COUNT) 06/22/2022 [...] GLUCOSE, POINT OF CARE 06/22/2022 213 (H) Collector Of Port 06/22/2022 207,019 GLUCOSE, POINT OF CARE 06/22/2022 214 (H) Collector Of Port 06/22/2022 207,019 GLUCOSE, POINT OF CARE 06/22/2022 340 (H) Collector Of Port 06/22/2022 207,019 Impression and Plan: Principal Problem: [...] for Dr. Saucedo 21 minutes spent of SPOILAGE WORKER time including assessment, planning, and discussion with nursing staff and patient Please note Portions of this note utilized Lighting Science Groupation software, please excuse any typographical or grammatical errors Associated attestation - Cecilio Saucedo MD - 06/22/2022 8:49 PM EST I have independently interviewed and examined the patient. I have discussed nj elements of the care plan with the SENIOR ELECTRICAL CONTROLS ENGINEER and I agree with the findings and [...] as outpt See [facility] + Plan note * Assessment & Plan Note - TEODORO Ruiz - 06/22/2022 10:49 AM ESTAssociated Problem(s): DKA (diabetic ketoacidosis) Resolving - Gap closing Volume expand Serial labs [facility]12-07-2022 Evaluation + Plan note* Assessment & Plan Note - TEODORO Ruiz - 06/22/2022 10:49 AM ESTAssociated Problem(s): Diabetes mellitus, type 2 Recent A1c 12.3 Follows with Endocrinology Resume home medications Accuchecks with SSI [facility]12-07-2022 Note* Nursing Notes - Abbie Gibson, YARELI - 06/22/2022 3:05 AM EST 2nd attempt to page Dr Saucedo [facility]12-07-2022 Note* Nursing Notes - Abbie Gibson, RN - 06/22/2022 2:35 AM EST Attempt to page Dr Saucedo for critical labs [facility]12-06-2022 Note* Nursing Notes - Abbie Gibson, YARELI - 06/21/2022 8:32 PM EST Critical CO2 <7 reported to Rickey Taveras CNP new order to increase cont NS to 150 mL/hr and give 2L LR bolus. Faxed to pharmacy [facility]12-06-2022 Emergency department Note* Mason Dooley RN - 06/21/2022 3:36 PM EST Patient refuses covid test stating she took a home test last night that was negative. Patient refuses and all imaging, stating I don't want to be radiated. [facility]12-06-2022 Emergency department Note* Mason Dooley RN [...] mg by mouth daily. Continuous Blood Gluc Yacht Master (FreeStyle Titus 2 [place] Systm) Device 1 Each by Unknown route [...] Use Authorization (EUA) for the qualitative detection daCMLB-KnH-3 nucleic acid. SCREEN: MRSA ONLY, NARES (ISOLATION [...] CARE 400 (H) 70 - 100 MG/DL Collector Of Port 205,067 GLUCOSE (POC DEVICE) Result Value Ref Range GLUCOSE, POINT OF CARE 393 (H) 70 - 100 MG/DL Collector Of Port 206,278 GLUCOSE (POC DEVICE) Result Value Ref Range GLUCOSE, POINT OF CARE 280 (H) 70 - 100 MG/DL Collector Of Port 204,702 GLUCOSE (POC DEVICE) Result Value Ref Range GLUCOSE, POINT OF CARE 210 (H) 70 - 100 MG/DL Collector Of Port 204,702 GLUCOSE (POC DEVICE) Result Value Ref Range GLUCOSE, POINT OF CARE 175 (H) 70 - 100 MG/DL Collector Of Port 204,702 GLUCOSE (POC DEVICE) Result Value Ref Range GLUCOSE, POINT OF CARE 192 (H) 70 - 100 MG/DL Collector Of Port 204,702 GLUCOSE (POC DEVICE) Result Value Ref Range GLUCOSE, POINT OF CARE 221 (H) 70 - 100 MG/DL Collector Of Port 204,702 GLUCOSE (POC DEVICE) Result Value Ref Range GLUCOSE, POINT OF CARE 212 (H) 70 - 100 MG/DL Collector Of Port 204,702 GLUCOSE (POC DEVICE) Result Value Ref Range GLUCOSE, POINT OF CARE 214 (H) 70 - 100 MG/DL Collector Of Port 206,907 GLUCOSE (POC DEVICE) Result Value Ref Range GLUCOSE, POINT OF CARE 245 (H) 70 - 100 MG/DL Collector Of Port 204,702 GLUCOSE (POC DEVICE) Result Value Ref Range GLUCOSE, POINT OF CARE 242 (H) 70 - 100 MG/DL Collector Of Port 207,486 GLUCOSE (POC DEVICE) Result Value Ref Range GLUCOSE, POINT OF CARE 252 (H) 70 - 100 MG/DL Collector Of Port 204,702 GLUCOSE (POC DEVICE) Result Value Ref Range GLUCOSE, POINT OF CARE 234 (H) 70 - 100 MG/DL Collector Of Port 207,019 GLUCOSE (POC DEVICE) Result Value Ref Range GLUCOSE, POINT OF CARE 230 (H) 70 - 100 MG/DL Collector Of Port 207,019 GLUCOSE (POC DEVICE) Result Value Ref Range GLUCOSE, POINT OF CARE 213 (H) 70 - 100 MG/DL Collector Of Port 207,019 GLUCOSE (POC DEVICE) Result Value Ref Range GLUCOSE, POINT OF CARE 214 (H) 70 - 100 MG/DL Collector Of Port 207,019 GLUCOSE (POC DEVICE) Result Value Ref Range GLUCOSE, POINT OF CARE 340 (H) 70 - 100 MG/DL Collector Of Port 207,019 URINALYSIS, MACRO Result Value Ref Range COLOR, URINE YELLOW YELLOW APPEARANCE, URINE CLEAR CLEAR Specific [place], Urine >1.030 (H) 1.010 - 1.025 PH [...] Portions of this chart were created using SoftArt electronic dictation. Please excuse any typographical or grammatical errors contained herein. Irvin Magana MD 06/22/22 1055 [facility] Physician Emergency department Note* Irvin Magana [...] mg by mouth daily. Continuous Blood Gluc Yacht Master (FreeStyle Titus 2 [place] Systm) Device 1 Each by Unknown route [...] Use Authorization (EUA) for the qualitative detection njLOYT-HzC-5 nucleic acid. SCREEN: MRSA ONLY, NARES (ISOLATION [...] CARE 400 (H) 70 - 100 MG/DL Collector Of Port 205,067 GLUCOSE (POC DEVICE) Result Value Ref Range GLUCOSE, POINT OF CARE 393 (H) 70 - 100 MG/DL Collector Of Port 206,278 GLUCOSE (POC DEVICE) Result Value Ref Range GLUCOSE, POINT OF CARE 280 (H) 70 - 100 MG/DL Collector Of Port 204,702 GLUCOSE (POC DEVICE) Result Value Ref Range GLUCOSE, POINT OF CARE 210 (H) 70 - 100 MG/DL Collector Of Port 204,702 GLUCOSE (POC DEVICE) Result Value Ref Range GLUCOSE, POINT OF CARE 175 (H) 70 - 100 MG/DL Collector Of Port 204,702 GLUCOSE (POC DEVICE) Result Value Ref Range GLUCOSE, POINT OF CARE 192 (H) 70 - 100 MG/DL Collector Of Port 204,702 GLUCOSE (POC DEVICE) Result Value Ref Range GLUCOSE, POINT OF CARE 221 (H) 70 - 100 MG/DL Collector Of Port 204,702 GLUCOSE (POC DEVICE) Result Value Ref Range GLUCOSE, POINT OF CARE 212 (H) 70 - 100 MG/DL Collector Of Port 204,702 GLUCOSE (POC DEVICE) Result Value Ref Range GLUCOSE, POINT OF CARE 214 (H) 70 - 100 MG/DL Collector Of Port 206,907 GLUCOSE (POC DEVICE) Result Value Ref Range GLUCOSE, POINT OF CARE 245 (H) 70 - 100 MG/DL Collector Of Port 204,702 GLUCOSE (POC DEVICE) Result Value Ref Range GLUCOSE, POINT OF CARE 242 (H) 70 - 100 MG/DL Collector Of Port 207,486 GLUCOSE (POC DEVICE) Result Value Ref Range GLUCOSE, POINT OF CARE 252 (H) 70 - 100 MG/DL Collector Of Port 204,702 GLUCOSE (POC DEVICE) Result Value Ref Range GLUCOSE, POINT OF CARE 234 (H) 70 - 100 MG/DL Collector Of Port 207,019 GLUCOSE (POC DEVICE) Result Value Ref Range GLUCOSE, POINT OF CARE 230 (H) 70 - 100 MG/DL Collector Of Port 207,019 GLUCOSE (POC DEVICE) Result Value Ref Range GLUCOSE, POINT OF CARE 213 (H) 70 - 100 MG/DL Collector Of Port 207,019 GLUCOSE (POC DEVICE) Result Value Ref Range GLUCOSE, POINT OF CARE 214 (H) 70 - 100 MG/DL Collector Of Port 207,019 GLUCOSE (POC DEVICE) Result Value Ref Range GLUCOSE, POINT OF CARE 340 (H) 70 - 100 MG/DL Collector Of Port 207,019 URINALYSIS, MACRO Result Value Ref Range COLOR, URINE YELLOW YELLOW APPEARANCE, URINE CLEAR CLEAR Specific [place], Urine >1.030 (H) 1.010 - 1.025 PH [...] Portions of this chart were created using SoftArt electronic dictation. Please excuse any typographical or grammatical errors contained herein. Irvin Magana MD 06/22/22 1055 [facility] [employer] [facility] [employer] Work Phone: 1(763) 616-635109-22-2022 History of Present illness Narrative* Bart Stone [...] follow with podiatry. Last met with a certified diabetes educator a few years ago. She reports [...] not willing to retrial. [facility] Procedure note* Manish Shea MD - 04/07/2022 2:15 PM EDTAssociated Order(s): MD CONTINUOUS GLUCOSE MONITORING ANALYSIS I&R CGM download shows 0% of blood sugars at target range, 2% high, 98% very high, GMI = 12.1%. Hyperglycemia at all timeframes. Lowest blood sugars approximately 200 mg/dL. This CGM download, we discussed insulin therapy versus bariatric surgery. [facility] Procedure note* Manish Shea MD - 04/07/2022 2:15 PM EDTAssociated Order(s): MD CONTINUOUS GLUCOSE MONITORING ANALYSIS I&R CGM download shows 0% of blood sugars at target range, 2% high, 98% very high, GMI = 12.1%. Hyperglycemia at all timeframes. Lowest blood sugars approximately 200 mg/dL. This CGM download, we discussed insulin therapy versus bariatric surgery. [facility] History of Present illness Narrative* Kendall Steiner [...] The patient is not nervous/anxious. Last saw early childhood educator aide in [place] unsure of when Nursing Assessment: Physical Exam [...] follow with podiatry. Last met with a certified diabetes educator a few years ago. She reports [...] The patient is not nervous/anxious. Last saw early childhood educator aide in [place] unsure of when Nursing Assessment: Physical Exam [...] to research these options. [facility] Procedure note* Manish Shea MD - 02/03/2022 3:45 PM EDTAssociated Order(s): MD CONTINUOUS GLUCOSE MONITORING ANALYSIS I&R CGM download her showing 0% of blood sugars at target range, 6% high, 94% very high, GMI = 11.3%, no hypoglycemia. There is hyperglycemia at all timeframes. Small response to medications last visit, we will increased doses of GLP-1 and sulfonylurea. Insulin therapy recommended, but declined by patient. [facility] Procedure note* Manish Shea MD - 02/03/2022 3:45 PM EDTAssociated Order(s): MD CONTINUOUS GLUCOSE MONITORING ANALYSIS I&R CGM download her showing 0% of blood sugars at target range, 6% high, 94% very high, GMI = 11.3%, no hypoglycemia. There is hyperglycemia at all timeframes. Small response to medications last visit, we will increased doses of GLP-1 and sulfonylurea. Insulin therapy recommended, but declined by patient. [facility] History and physical note* Manish Shea MD - 12/09/2021 2:30 PM EDT dirk [facility] History and physical note* Manish Shea MD - 12/09/2021 2:30 PM EDT dirk documented [facility]Mer[facility] History of Present illness Narrative* Bart [...] Positive for sleep disturbance (occasionally). Last saw early childhood educator aide in [place] unsure of when Nursing Assessment: Physical Exam [...] follow with podiatry. Last met with a certified diabetes educator a few years ago. She reports [...] Positive for sleep disturbance (occasionally). Last saw early childhood educator aide in [place] unsure of when Nursing Assessment: Physical Exam [...] to research these options. [facility] Miscellaneous Notes* Addendum Note - Karli Farmer - 12/09/2021 2:30 PM EDTAddended by: KARLI FARMER on: 12/09/2021 03:49 PM Modules accepted: Orders documented in this encounterMer[facility]22 Note* Addendum Note - Karli Farmer - 12/09/2021 2:30 PM EDTAddended by: KARLI FARMER on: 12/09/2021 03:49 PM Modules accepted: Orders [facility] Procedure note* Manish Shea MD - 12/09/2021 2:30 PM EDTAssociated Order(s): MD CONTINUOUS GLUCOSE MONITORING ANALYSIS I&R CGM download shows 0% of blood sugars at target, 1% high, 99% very high. Based on CGM download, we need to intensify pharmacologic therapy. She is already on a low-carb diet. [facility] Procedure note* Manish Shea MD - 12/09/2021 2:30 PM EDTAssociated Order(s): MD CONTINUOUS GLUCOSE MONITORING ANALYSIS I&R CGM download shows 0% of blood sugars at target, 1% high, 99% very high. Based on CGM download, we need to intensify pharmacologic therapy. She is already on a low-carb diet. documented in this [facility]04-14-2022 History of Present illness Narrative* Landy [...] for sleep disturbance. Patient has seen a early childhood educator aide in [place] 10 years ago Nursing Assessment: Physical Exam * Safia TONY Castillo - 10/28/2021 1:30 PM EDT History of [...] follow with podiatry. Last met with a certified diabetes educator a few years ago. She reports [...] for sleep disturbance. Patient has seen a early childhood educator aide in [place] 10 years ago Nursing Assessment: Physical Exam [...] to research these options. [facility] Evaluation note Includes: Assessments for all [...] Pat ient with Kavita Qureshi CNP 04/21/2021 [facility] Work Phone: 1(484) 685-568011-02-2021 Instructions Includes: Instructions for all patient encounters Instructions to patient Maintain a healthy diet Last Documented On 1 4:43PM ; [facility] Maintain a healthy diet Last Documented On 1 10:54AM ; [facility] Education and Decision Aids were provided during visit for: Discussed nutritional needs teach healthy choices including fruits and vegetables Last Documented On 4 3:46PM ; [facility] Patient education about a pr oper diet Last Documented On 4 3:46PM ; [facility] Discussed concerns about exe rcise : promote physical activity ~ ~WILL REFER TO PT AND BUILDING OFFICIAL ~ ~LEVEMIR IS NOT AVAILABLE SO WILL [...] ~ Last Documented On 4 4:51PM ; [facility] Referred Patient to a Diabet es Self-Management Program Last Documented On 4 4:21PM ; [facility] Not requesting contraception Last Documented On 4 3:46PM ; [facility] Discussed nutritional needs teach healthy choices including fruits and vegetables Last Documented On 1 11:33AM ; [facility] Patient education about a pr oper diet Last Documented On 1 11:33AM ; [facility] Discussed concerns about exe rcise : promote physical activity ~ ~Follow up in one month Last Documented On 1 3:30PM ; [facility] Discussed nutritional needs teach healthy choices including fruits and vegetables Last Documented On 1 4:34PM ; [facility] Patient education about a pr oper diet Last Documented On 1 4:34PM ; [facility] Patient education about a ho ct blood glucose monitor with instructions to bring monitor to each visit Last Documented On 1 4:43PM ; [facility] Dietary counseling pertainin g to diabetes mellitus Last Documented On 1 4:43PM ; [facility] Patient education about diab etic foot care Last Documented On 1 4:43PM ; [facility] Inquiry and counseling about medication administration and compliance Last Documented On 1 4:43PM ; [facility] Discussed concerns about exe rcise : promote physical activity Last Documented On 4:34PM ; [facility] Patient goals discussed Last Documented On 4:43PM ; [facility] The patient's goal is to tonny t the blood sugars and bring in the results to each visit Last Documented On 4:43PM ; [facility] NOTE: pt reported any inform ation [facility] needed was available on the internet; she could access it. She did not intend to put any information in her medical record that was not necessary or otherwise avaiable. ~ ~Also, if she were depressed or anxious, she would tell someone. SHe is not. She did, however, answer questions that allowed [facility] to complete the PHQ9 Last Documented On 8:58PM ; [facility] Discussed nutritional needs teach healthy choices including fruits and vegetables Last Documented On 10:41AM ; [facility] Patient education about a pr oper diet Last Documented On 10:41AM ; [facility] Patient education about regu lar dental care Last Documented On 10:54AM ; [facility] Patient education about a ho me blood glucose monitor with instructions to bring monitor to each visit Last Documented On 10:54AM ; [facility] Dietary counseling pertainin g to diabetes mellitus Last Documented On 10:54AM ; [facility] Patient education about diab etic foot care Last Documented On 10:54AM ; [facility] Inquiry and counseling about medication administration and compliance Last Documented On 10:54AM ; [facility] Discussed concerns about exe rcise : promote physical activity Last Documented On 10:41AM ; [facility] Patient goals discussed Last Documented On 10:54AM ; [facility] The patient's goal is to tonny t the blood sugars and bring in the results to each visit Last Documented On 10:54AM ; [facility] Work Phone: [phone]) 365-202511-02-2021 Instructions Includes: Instructions for all patient encounters Instructions to patient Maintain a healthy diet Last Documented On 1 4:43PM ; [facility] Maintain a healthy diet Last Documented On 1 10:54AM ; [facility] Education and Decision Aids were provided during visit for: Discussed nutritional needs teach healthy choices including fruits and vegetables Last Documented On 4 3:46PM ; [facility] Patient education about a pr oper diet Last Documented On 4 3:46PM ; [facility] Discussed concerns about exe rcise : promote physical activity ~ ~WILL REFER TO PT AND BUILDING OFFICIAL ~ ~LEVEMIR IS NOT AVAILABLE SO WILL [...] ~ Last Documented On 4 4:51PM ; [facility] Referred Patient to a Diabet es Self-Management Program Last Documented On 4 4:21PM ; [facility] Not requesting contraception Last Documented On 4 3:46PM ; [facility] Discussed nutritional needs teach healthy choices including fruits and vegetables Last Documented On 1 11:33AM ; [facility] Patient education about a pr oper diet Last Documented On 1 11:33AM ; [facility] Discussed concerns about exe rcise : promote physical activity ~ ~Follow up in one month Last Documented On 1 3:30PM ; [facility] Discussed nutritional needs teach healthy choices including fruits and vegetables Last Documented On 1 4:34PM ; [facility] Patient education about a pr oper diet Last Documented On 1 4:34PM ; [facility] Patient education about a ho ct blood glucose monitor with instructions to bring monitor to each visit Last Documented On 1 4:43PM ; [facility] Dietary counseling pertainin g to diabetes mellitus Last Documented On 1 4:43PM ; [facility] Patient education about diab etic foot care Last Documented On 4:43PM ; [facility] Inquiry and counseling about medication administration and compliance Last Documented On 4:43PM ; [facility] Discussed concerns about exe rcise : promote physical activity Last Documented On 4:34PM ; [facility] Patient goals discussed Last Documented On 4:43PM ; [facility] The patient's goal is to tonny t the blood sugars and bring in the results to each visit Last Documented On 4:43PM ; [facility] NOTE: pt reported any inform ation [facility] needed was available on the internet; she could access it. She did not intend to put any information in her medical record that was not necessary or otherwise avaiable. ~ ~Also, if she were depressed or anxious, she would tell someone. SHe is not. She did, however, answer questions that allowed [facility] to complete the PHQ9 Last Documented On 8:58PM ; [facility] Discussed nutritional needs teach healthy choices including fruits and vegetables Last Documented On 10:41AM ; [facility] Patient education about a pr oper diet Last Documented On 10:41AM ; [facility] Patient education about regu lar dental care Last Documented On 10:54AM ; [facility] Patient education about a ho me blood glucose monitor with instructions to bring monitor to each visit Last Documented On 10:54AM ; [facility] Dietary counseling pertainin g to diabetes mellitus Last Documented On 10:54AM ; [facility] Patient education about diab etic foot care Last Documented On 10:54AM ; [facility] Inquiry and counseling about medication administration and compliance Last Documented On 10:54AM ; [facility] Discussed concerns about exe rcise : promote physical activity Last Documented On 10:41AM ; [facility] Patient goals discussed Last Documented On 10:54AM ; [facility] The patient's goal is to tonny t the blood sugars and bring in the results to each visit Last Documented On 1 10:54AM ; [facility] Work Phone: 1([phone]) 254-643911-02-2021 Instructions Includes: Instructions for all patient encounters Instructions to patient Maintain a healthy diet Last Documented On 1 4:43PM ; [facility] Maintain a healthy diet Last Documented On 1 10:54AM ; [facility] Education and Decision Aids were provided during visit for: Discussed nutritional needs teach healthy choices including fruits and vegetables Last Documented On 4 3:46PM ; [facility] Patient education about a pr oper diet Last Documented On 4 3:46PM ; [facility] Discussed concerns about exe rcise : promote physical activity ~ ~WILL REFER TO PT AND BUILDING OFFICIAL ~ ~LEVEMIR IS NOT AVAILABLE SO WILL [...] ~ Last Documented On 4 4:51PM ; [facility] Referred Patient to a Diabet es Self-Management Program Last Documented On 4 4:21PM ; [facility] Not requesting contraception Last Documented On 4 3:46PM ; [facility] Discussed nutritional needs teach healthy choices including fruits and vegetables Last Documented On 1 11:33AM ; [facility] Patient education about a pr oper diet Last Documented On 1 11:33AM ; [facility] Discussed concerns about exe rcise : promote physical activity ~ ~Follow up in one month Last Documented On 1 3:30PM ; [facility] Discussed nutritional needs teach healthy choices including fruits and vegetables Last Documented On 1 4:34PM ; [facility] Patient education about a pr oper diet Last Documented On 1 4:34PM ; [facility] Patient education about a ho ct blood glucose monitor with instructions to bring monitor to each visit Last Documented On 4:43PM ; [facility] Dietary counseling pertainin g to diabetes mellitus Last Documented On 4:43PM ; [facility] Patient education about diab etic foot care Last Documented On 4:43PM ; [facility] Inquiry and counseling about medication administration and compliance Last Documented On 4:43PM ; [facility] Discussed concerns about exe rcise : promote physical activity Last Documented On 4:34PM ; [facility] Patient goals discussed Last Documented On 4:43PM ; [facility] The patient's goal is to tonny t the blood sugars and bring in the results to each visit Last Documented On 4:43PM ; [facility] NOTE: pt reported any inform ation [facility] needed was available on the internet; she could access it. She did not intend to put any information in her medical record that was not necessary or otherwise avaiable. ~ ~Also, if she were depressed or anxious, she would tell someone. SHe is not. She did, however, answer questions that allowed [facility] to complete the PHQ9 Last Documented On 8:58PM ; [facility] Discussed nutritional needs teach healthy choices including fruits and vegetables Last Documented On 10:41AM ; [facility] Patient education about a pr oper diet Last Documented On 10:41AM ; [facility] Patient education about regu lar dental care Last Documented On 10:54AM ; [facility] Patient education about a ho ct blood glucose monitor with instructions to bring monitor to each visit Last Documented On 10:54AM ; [facility] Dietary counseling pertainin g to diabetes mellitus Last Documented On 10:54AM ; [facility] Patient education about diab etic foot care Last Documented On 10:54AM ; [facility] Inquiry and counseling about medication administration and compliance Last Documented On 10:54AM ; [facility] Discussed concerns about exe rcise : promote physical activity Last Documented On 1 10:41AM ; [facility] Patient goals discussed Last Documented On 1 10:54AM ; [facility] The patient's goal is to tonny t the blood sugars and bring in the results to each visit Last Documented On 1 10:54AM ; [facility] Work Phone: 1([phone]) 491-233111-02-2021 Instructions Includes: Instructions for all patient encounters Instructions to patient Maintain a healthy diet Last Documented On 1 4:43PM ; [facility] Maintain a healthy diet Last Documented On 1 10:54AM ; [facility] Education and Decision Aids were provided during visit for: Discussed nutritional needs teach healthy choices including fruits and vegetables Last Documented On 4 2:49PM ; [facility] Patient education about a pr oper diet Last Documented On 4 2:49PM ; [facility] Discussed concerns about exe rcise : promote physical activity ~ ~Follow up in one month Last Documented On 4 8:14AM ; [facility] Referred Patient to a Diabet es Self-Management Program Last Documented On 4 2:55PM ; [facility] Discussed nutritional needs teach healthy choices including fruits and vegetables Last Documented On 4 3:46PM ; [facility] Patient education about a pr oper diet Last Documented On 4 3:46PM ; [facility] Discussed concerns about exe rcise : promote physical activity ~ ~WILL REFER TO PT AND BUILDING OFFICIAL ~ ~LEVEMIR IS NOT AVAILABLE SO WILL [...] ~ Last Documented On 4 4:51PM ; [facility] Referred Patient to a Diabet es Self-Management Program Last Documented On 4 4:21PM ; [facility] Not requesting contraception Last Documented On 4 3:46PM ; [facility] Discussed nutritional needs teach healthy choices including fruits and vegetables Last Documented On 11:33AM ; [facility] Patient education about a pr oper diet Last Documented On 11:33AM ; [facility] Discussed concerns about exe rcise : promote physical activity ~ ~Follow up in one month Last Documented On 3:30PM ; [facility] Discussed nutritional needs teach healthy choices including fruits and vegetables Last Documented On 4:34PM ; [facility] Patient education about a pr oper diet Last Documented On 4:34PM ; [facility] Patient education about a ho me blood glucose monitor with instructions to bring monitor to each visit Last Documented On 4:43PM ; [facility] Dietary counseling pertainin g to diabetes mellitus Last Documented On 4:43PM ; [facility] Patient education about diab etic foot care Last Documented On 4:43PM ; [facility] Inquiry and counseling about medication administration and compliance Last Documented On 4:43PM ; [facility] Discussed concerns about exe rcise : promote physical activity Last Documented On 4:34PM ; [facility] Patient goals discussed Last Documented On 4:43PM ; [facility] The patient's goal is to tonny t the blood sugars and bring in the results to each visit Last Documented On 4:43PM ; [facility] NOTE: pt reported any inform ation [facility] needed was available on the internet; she could access it. She did not intend to put any information in her medical record that was not necessary or otherwise avaiable. ~ ~Also, if she were depressed or anxious, she would tell someone. SHe is not. She did, however, answer questions that allowed [facility] to complete the PHQ9 Last Documented On 8:58PM ; [facility] Discussed nutritional needs teach healthy choices including fruits and vegetables Last Documented On 10:41AM ; [facility] Patient education about a pr oper diet Last Documented On 10:41AM ; [facility] Patient education about regu lar dental care Last Documented On 10:54AM ; [facility] Patient education about a ho me blood glucose monitor with instructions to bring monitor to each visit Last Documented On 10:54AM ; [facility] Dietary counseling pertainin g to diabetes mellitus Last Documented On 10:54AM ; [facility] Patient education about diab etic foot care Last Documented On 10:54AM ; [facility] Inquiry and counseling about medication administration and compliance Last Documented On 10:54AM ; [facility] Discussed concerns about exe rcise : promote physical activity Last Documented On 10:41AM ; [facility] Patient goals discussed Last Documented On 10:54AM ; [facility] The patient's goal is to tonny t the blood sugars and bring in the results to each visit Last Documented On 10:54AM ; [facility] Work Phone: 1([phone]) 332-991611-02-2021 Instructions Includes: Instructions for all patient encounters Instructions to patient Maintain a healthy diet Last Documented On 4:43PM ; [facility] Maintain a healthy diet Last Documented On 10:54AM ; [facility] Education and Decision Aids were provided during visit for: Discussed nutritional needs teach healthy choices including fruits and vegetables Last Documented On 5 3:16PM ; [facility] Patient education about a pr oper diet Last Documented On 5 3:16PM ; [facility] Discussed concerns about exe rcise : promote physical activity ~ ~Discussed following up with spinal specialist ~ ~Continue to take diabetic medication at same dose Last Documented On 5 9:28AM ; [facility] Not requesting contraception Last Documented On 5 3:16PM ; [facility] Discussed nutritional needs teach healthy choices including fruits and vegetables Last Documented On 4 2:49PM ; [facility] Patient education about a pr oper diet Last Documented On 4 2:49PM ; [facility] Discussed concerns about exe rcise : promote physical activity ~ ~Follow up in one month Last Documented On 4 8:14AM ; [facility] Referred Patient to a Diabet es Self-Management Program Last Documented On 4 2:55PM ; [facility] Discussed nutritional needs teach healthy choices including fruits and vegetables Last Documented On 4 3:46PM ; [facility] Patient education about a pr oper diet Last Documented On 4 3:46PM ; [facility] Discussed concerns about exe rcise : promote physical activity ~ ~WILL REFER TO PT AND BUILDING OFFICIAL ~ ~LEVEMIR IS NOT AVAILABLE SO WILL [...] ~ Last Documented On 4 4:51PM ; [facility] Referred Patient to a Diabet es Self-Management Program Last Documented On 4 4:21PM ; [facility] Not requesting contraception Last Documented On 4 3:46PM ; [facility] Discussed nutritional needs teach healthy choices including fruits and vegetables Last Documented On 1 11:33AM ; [facility] Patient education about a pr oper diet Last Documented On 1 11:33AM ; [facility] Discussed concerns about exe rcise : promote physical activity ~ ~Follow up in one month Last Documented On 1 3:30PM ; [facility] Discussed nutritional needs teach healthy choices including fruits and vegetables Last Documented On 1 4:34PM ; [facility] Patient education about a pr oper diet Last Documented On 1 4:34PM ; [facility] Patient education about a ho me blood glucose monitor with instructions to bring monitor to each visit Last Documented On 1 4:43PM ; [facility] Dietary counseling pertainin g to diabetes mellitus Last Documented On 4:43PM ; [facility] Patient education about diab etic foot care Last Documented On 4:43PM ; [facility] Inquiry and counseling about medication administration and compliance Last Documented On 4:43PM ; [facility] Discussed concerns about exe rcise : promote physical activity Last Documented On 4:34PM ; [facility] Patient goals discussed Last Documented On 4:43PM ; [facility] The patient's goal is to tonny t the blood sugars and bring in the results to each visit Last Documented On 4:43PM ; [facility] NOTE: pt reported any inform ation [facility] needed was available on the internet; she could access it. She did not intend to put any information in her medical record that was not necessary or otherwise avaiable. ~ ~Also, if she were depressed or anxious, she would tell someone. SHe is not. She did, however, answer questions that allowed [facility] to complete the PHQ9 Last Documented On 8:58PM ; [facility] Discussed nutritional needs teach healthy choices including fruits and vegetables Last Documented On 10:41AM ; [facility] Patient education about a pr oper diet Last Documented On 10:41AM ; [facility] Patient education about regu lar dental care Last Documented On 10:54AM ; [facility] Patient education about a ho ct blood glucose monitor with instructions to bring monitor to each visit Last Documented On 10:54AM ; [facility] Dietary counseling pertainin g to diabetes mellitus Last Documented On 10:54AM ; [facility] Patient education about diab etic foot care Last Documented On 10:54AM ; [facility] Inquiry and counseling about medication administration and compliance Last Documented On 10:54AM ; [facility] Discussed concerns about exe rcise : promote physical activity Last Documented On 10:41AM ; [facility] Patient goals discussed Last Documented On 1 10:54AM ; [facility] The patient's goal is to tonny t the blood sugars and bring in the results to each visit Last Documented On 1 10:54AM ; [facility] Work Phone: [phone] 147-964611-02-2021 Instructions Includes: Instructions for all patient encounters Instructions to patient Maintain a healthy diet Last Documented On 1 4:43PM ; [facility] Maintain a healthy diet Last Documented On 1 10:54AM ; [facility] Education and Decision Aids were provided during visit for: Discussed nutritional needs teach healthy choices including fruits and vegetables Last Documented On 5 3:16PM ; [facility] Patient education about a pr oper diet Last Documented On 5 3:16PM ; [facility] Discussed concerns about exe rcise : promote physical activity ~ ~Discussed following up with spinal specialist ~ ~Continue to take diabetic medication at same dose Last Documented On 5 9:28AM ; [facility] Not requesting contraception Last Documented On 5 3:16PM ; [facility] Discussed nutritional needs teach healthy choices including fruits and vegetables Last Documented On 4 2:49PM ; [facility] Patient education about a pr oper diet Last Documented On 4 2:49PM ; [facility] Discussed concerns about exe rcise : promote physical activity ~ ~Follow up in one month Last Documented On 4 8:14AM ; [facility] Referred Patient to a Diabet es Self-Management Program Last Documented On 4 2:55PM ; [facility] Discussed nutritional needs teach healthy choices including fruits and vegetables Last Documented On 4 3:46PM ; [facility] Patient education about a pr oper diet Last Documented On 4 3:46PM ; [facility] Discussed concerns about exe rcise : promote physical activity ~ ~WILL REFER TO PT AND BUILDING OFFICIAL ~ ~LEVEMIR IS NOT AVAILABLE SO WILL [...] ~ Last Documented On 4 4:51PM ; [facility] Referred Patient to a Diabet es Self-Management Program Last Documented On 4 4:21PM ; [facility] Not requesting contraception Last Documented On 4 3:46PM ; [facility] Discussed nutritional needs teach healthy choices including fruits and vegetables Last Documented On 1 11:33AM ; [facility] Patient education about a pr oper diet Last Documented On 1 11:33AM ; [facility] Discussed concerns about exe rcise : promote physical activity ~ ~Follow up in one month Last Documented On 1 3:30PM ; [facility] Discussed nutritional needs teach healthy choices including fruits and vegetables Last Documented On 1 4:34PM ; [facility] Patient education about a pr oper diet Last Documented On 1 4:34PM ; [facility] Patient education about a ho me blood glucose monitor with instructions to bring monitor to each visit Last Documented On 1 4:43PM ; [facility] Dietary counseling pertainin g to diabetes mellitus Last Documented On 1 4:43PM ; [facility] Patient education about diab etic foot care Last Documented On 1 4:43PM ; [facility] Inquiry and counseling about medication administration and compliance Last Documented On 1 4:43PM ; [facility] Discussed concerns about exe rcise : promote physical activity Last Documented On 1 4:34PM ; [facility] Patient goals discussed Last Documented On 4:43PM ; [facility] The patient's goal is to tonny t the blood sugars and bring in the results to each visit Last Documented On 1 4:43PM ; [facility] NOTE: pt reported any inform ation [facility] needed was available on the internet; she could access it. She did not intend to put any information in her medical record that was not necessary or otherwise avaiable. ~ ~Also, if she were depressed or anxious, she would tell someone. SHe is not. She did, however, answer questions that allowed [facility] to complete the PHQ9 Last Documented On 8:58PM ; [facility] Discussed nutritional needs teach healthy choices including fruits and vegetables Last Documented On 10:41AM ; [facility] Patient education about a pr oper diet Last Documented On 10:41AM ; [facility] Patient education about regu lar dental care Last Documented On 10:54AM ; [facility] Patient education about a ho me blood glucose monitor with instructions to bring monitor to each visit Last Documented On 10:54AM ; [facility] Dietary counseling pertainin g to diabetes mellitus Last Documented On 10:54AM ; [facility] Patient education about diab etic foot care Last Documented On 10:54AM ; [facility] Inquiry and counseling about medication administration and compliance Last Documented On 10:54AM ; [facility] Discussed concerns about exe rcise : promote physical activity Last Documented On 10:41AM ; [facility] Patient goals discussed Last Documented On 10:54AM ; [facility] The patient's goal is to tonny t the blood sugars and bring in the results to each visit Last Documented On 10:54AM ; [facility] Work Phone: [phone] 609-712411-02-2021 Instructions Includes: Instructions for all patient encounters Instructions to patient Maintain a healthy diet Last Documented On 4:43PM ; [facility] Maintain a healthy diet Last Documented On 10:54AM ; [facility] Education and Decision Aids were provided during visit for: Discussed nutritional needs teach healthy choices including fruits and vegetables Last Documented On 5 3:11PM ; [facility] Patient education about a pr oper diet Last Documented On 5 3:11PM ; [facility] Discussed concerns about exe rcise : promote physical activity Last Documented On 5 3:11PM ; [facility] Discussed nutritional needs teach healthy choices including fruits and vegetables Last Documented On 5 3:16PM ; [facility] Patient education about a pr oper diet Last Documented On 5 3:16PM ; [facility] Discussed concerns about exe rcise : promote physical activity ~ ~Discussed following up with spinal specialist ~ ~Continue to take diabetic medication at same dose Last Documented On 5 9:28AM ; [facility] Referred Patient to a Diabet es Self-Management Program Last Documented On 5 3:43PM ; [facility] Not requesting contraception Last Documented On 5 3:16PM ; [facility] Discussed nutritional needs teach healthy choices including fruits and vegetables Last Documented On 4 2:49PM ; [facility] Patient education about a pr oper diet Last Documented On 4 2:49PM ; [facility] Discussed concerns about exe rcise : promote physical activity ~ ~Follow up in one month Last Documented On 4 8:14AM ; [facility] Referred Patient to a Diabet es Self-Management Program Last Documented On 4 2:55PM ; [facility] Discussed nutritional needs teach healthy choices including fruits and vegetables Last Documented On 4 3:46PM ; [facility] Patient education about a pr oper diet Last Documented On 4 3:46PM ; [facility] Discussed concerns about exe rcise : promote physical activity ~ ~WILL REFER TO PT AND BUILDING OFFICIAL ~ ~LEVEMIR IS NOT AVAILABLE SO WILL [...] ~ Last Documented On 4 4:51PM ; [facility] Referred Patient to a Diabet es Self-Management Program Last Documented On 4 4:21PM ; [facility] Not requesting contraception Last Documented On 4 3:46PM ; [facility] Discussed nutritional needs teach healthy choices including fruits and vegetables Last Documented On 1 11:33AM ; [facility] Patient education about a pr oper diet Last Documented On 11:33AM ; [facility] Discussed concerns about exe rcise : promote physical activity ~ ~Follow up in one month Last Documented On 1 3:30PM ; [facility] Discussed nutritional needs teach healthy choices including fruits and vegetables Last Documented On 4:34PM ; [facility] Patient education about a pr oper diet Last Documented On 4:34PM ; [facility] Patient education about a ho me blood glucose monitor with instructions to bring monitor to each visit Last Documented On 4:43PM ; [facility] Dietary counseling pertainin g to diabetes mellitus Last Documented On 4:43PM ; [facility] Patient education about diab etic foot care Last Documented On 1 4:43PM ; [facility] Inquiry and counseling about medication administration and compliance Last Documented On 4:43PM ; [facility] Discussed concerns about exe rcise : promote physical activity Last Documented On 4:34PM ; [facility] Patient goals discussed Last Documented On 4:43PM ; [facility] The patient's goal is to tonny t the blood sugars and bring in the results to each visit Last Documented On 4:43PM ; [facility] NOTE: pt reported any inform ation [facility] needed was available on the internet; she could access it. She did not intend to put any information in her medical record that was not necessary or otherwise avaiable. ~ ~Also, if she were depressed or anxious, she would tell someone. SHe is not. She did, however, answer questions that allowed [facility] to complete the PHQ9 Last Documented On 1 8:58PM ; [facility] Discussed nutritional needs teach healthy choices including fruits and vegetables Last Documented On 10:41AM ; [facility] Patient education about a pr oper diet Last Documented On 10:41AM ; [facility] Patient education about regu lar dental care Last Documented On 10:54AM ; [facility] Patient education about a ho me blood glucose monitor with instructions to bring monitor to each visit Last Documented On 10:54AM ; [facility] Dietary counseling pertainin g to diabetes mellitus Last Documented On 10:54AM ; [facility] Patient education about diab etic foot care Last Documented On 10:54AM ; [facility] Inquiry and counseling about medication administration and compliance Last Documented On 10:54AM ; [facility] Discussed concerns about exe rcise : promote physical activity Last Documented On 10:41AM ; [facility] Patient goals discussed Last Documented On 10:54AM ; [facility] The patient's goal is to tonny t the blood sugars and bring in the results to each visit Last Documented On 10:54AM ; [facility] Work Phone: [phone] 368-434811-02-2021 Instructions Includes: Instructions for all patient encounters Instructions to patient Maintain a healthy diet Last Documented On 4:43PM ; [facility] Maintain a healthy diet Last Documented On 10:54AM ; [facility] Education and Decision Aids were provided during visit for: Discussed nutritional needs teach healthy choices including fruits and vegetables Last Documented On 5 3:11PM ; [facility] Patient education about a pr oper diet Last Documented On 5 3:11PM ; [facility] Discussed concerns about exe rcise : promote physical activity Last Documented On 5 3:11PM ; [facility] Discussed nutritional needs teach healthy choices including fruits and vegetables Last Documented On 5 3:16PM ; [facility] Patient education about a pr oper diet Last Documented On 5 3:16PM ; [facility] Discussed concerns about exe rcise : promote physical activity ~ ~Discussed following up with spinal specialist ~ ~Continue to take diabetic medication at same dose Last Documented On 5 9:28AM ; [facility] Referred Patient to a Diabet es Self-Management Program Last Documented On 5 3:43PM ; [facility] Not requesting contraception Last Documented On 5 3:16PM ; [facility] Discussed nutritional needs teach healthy choices including fruits and vegetables Last Documented On 4 2:49PM ; [facility] Patient education about a pr oper diet Last Documented On 4 2:49PM ; [facility] Discussed concerns about exe rcise : promote physical activity ~ ~Follow up in one month Last Documented On 4 8:14AM ; [facility] Referred Patient to a Diabet es Self-Management Program Last Documented On 4 2:55PM ; [facility] Discussed nutritional needs teach healthy choices including fruits and vegetables Last Documented On 4 3:46PM ; [facility] Patient education about a pr oper diet Last Documented On 4 3:46PM ; [facility] Discussed concerns about exe rcise : promote physical activity ~ ~WILL REFER TO PT AND BUILDING OFFICIAL ~ ~LEVEMIR IS NOT AVAILABLE SO WILL [...] ~ Last Documented On 4 4:51PM ; [facility] Referred Patient to a Diabet es Self-Management Program Last Documented On 4 4:21PM ; [facility] Not requesting contraception Last Documented On 4 3:46PM ; [facility] Discussed nutritional needs teach healthy choices including fruits and vegetables Last Documented On 1 11:33AM ; [facility] Patient education about a pr oper diet Last Documented On 11:33AM ; [facility] Discussed concerns about exe rcise : promote physical activity ~ ~Follow up in one month Last Documented On 3:30PM ; [facility] Discussed nutritional needs teach healthy choices including fruits and vegetables Last Documented On 4:34PM ; [facility] Patient education about a pr oper diet Last Documented On 4:34PM ; [facility] Patient education about a ho me blood glucose monitor with instructions to bring monitor to each visit Last Documented On 4:43PM ; [facility] Dietary counseling pertainin g to diabetes mellitus Last Documented On 4:43PM ; [facility] Patient education about diab etic foot care Last Documented On 4:43PM ; [facility] Inquiry and counseling about medication administration and compliance Last Documented On 4:43PM ; [facility] Discussed concerns about exe rcise : promote physical activity Last Documented On 4:34PM ; [facility] Patient goals discussed Last Documented On 4:43PM ; [facility] The patient's goal is to tonny t the blood sugars and bring in the results to each visit Last Documented On 4:43PM ; [facility] NOTE: pt reported any inform ation [facility] needed was available on the internet; she could access it. She did not intend to put any information in her medical record that was not necessary or otherwise avaiable. ~ ~Also, if she were depressed or anxious, she would tell someone. SHe is not. She did, however, answer questions that allowed [facility] to complete the PHQ9 Last Documented On 8:58PM ; [facility] Discussed nutritional needs teach healthy choices including fruits and vegetables Last Documented On 10:41AM ; [facility] Patient education about a pr oper diet Last Documented On 10:41AM ; [facility] Patient education about regu lar dental care Last Documented On 10:54AM ; [facility] Patient education about a ho me blood glucose monitor with instructions to bring monitor to each visit Last Documented On 10:54AM ; [facility] Dietary counseling pertainin g to diabetes mellitus Last Documented On 10:54AM ; [facility] Patient education about diab etic foot care Last Documented On 10:54AM ; [facility] Inquiry and counseling about medication administration and compliance Last Documented On 10:54AM ; [facility] Discussed concerns about exe rcise : promote physical activity Last Documented On 10:41AM ; [facility] Patient goals discussed Last Documented On 10:54AM ; [facility] The patient's goal is to tonny t the blood sugars and bring in the results to each visit Last Documented On 10:54AM ; [facility] Work Phone: [phone]) [phone] Instructions Includes: Instructions for all patient encounters Instructions to patient Maintain a healthy diet Last Documented On 1 4:43PM ; [facility] Maintain a healthy diet Last Documented On 10:54AM ; [facility] Education and Decision Aids were provided during visit for: Discussed nutritional needs teach healthy choices including fruits and vegetables Last Documented On 5 3:11PM ; [facility] Patient education about a pr oper diet Last Documented On 5 3:11PM ; [facility] Discussed concerns about exe rcise : promote physical activity ~ ~Follow up after ER visit Last Documented On 5 4:59PM ; [facility] Discussed nutritional needs teach healthy choices including fruits and vegetables Last Documented On 5 3:16PM ; [facility] Patient education about a pr oper diet Last Documented On 5 3:16PM ; [facility] Discussed concerns about exe rcise : promote physical activity ~ ~Discussed following up with spinal specialist ~ ~Continue to take diabetic medication at same dose Last Documented On 5 9:28AM ; [facility] Referred Patient to a Diabet es Self-Management Program Last Documented On 5 3:43PM ; [facility] Not requesting contraception Last Documented On 5 3:16PM ; [facility] Discussed nutritional needs teach healthy choices including fruits and vegetables Last Documented On 4 2:49PM ; [facility] Patient education about a pr oper diet Last Documented On 4 2:49PM ; [facility] Discussed concerns about exe rcise : promote physical activity ~ ~Follow up in one month Last Documented On 4 8:14AM ; [facility] Referred Patient to a Diabet es Self-Management Program Last Documented On 4 2:55PM ; [facility] Discussed nutritional needs teach healthy choices including fruits and vegetables Last Documented On 4 3:46PM ; [facility] Patient education about a pr oper diet Last Documented On 4 3:46PM ; [facility] Discussed concerns about exe rcise : promote physical activity ~ ~WILL REFER TO PT AND BUILDING OFFICIAL ~ ~[facility]EM[facility] IS NOT AVAILABLE SO WILL [...] ~ Last Documented On 4 4:51PM ; [facility] Referred Patient to a Diabet es Self-Management Program Last Documented On 4 4:21PM ; [facility] Not requesting contraception Last Documented On 4 3:46PM ; [facility] Discussed nutritional needs teach healthy choices including fruits and vegetables Last Documented On 1 11:33AM ; [facility] Patient education about a pr oper diet Last Documented On 1 11:33AM ; [facility] Discussed concerns about exe rcise : promote physical activity ~ ~Follow up in one month Last Documented On 1 3:30PM ; [facility] Discussed nutritional needs teach healthy choices including fruits and vegetables Last Documented On 1 4:34PM ; [facility] Patient education about a pr oper diet Last Documented On 4:34PM ; [facility] Patient education about a ho me blood glucose monitor with instructions to bring monitor to each visit Last Documented On 4:43PM ; [facility] Dietary counseling pertainin g to diabetes mellitus Last Documented On 4:43PM ; [facility] Patient education about diab etic foot care Last Documented On 4:43PM ; [facility] Inquiry and counseling about medication administration and compliance Last Documented On 4:43PM ; [facility] Discussed concerns about exe rcise : promote physical activity Last Documented On 4:34PM ; [facility] Patient goals discussed Last Documented On 4:43PM ; [facility] The patient's goal is to tonny t the blood sugars and bring in the results to each visit Last Documented On 4:43PM ; [facility] NOTE: pt reported any inform ation [facility] needed was available on the internet; she could access it. She did not intend to put any information in her medical record that was not necessary or otherwise avaiable. ~ ~Also, if she were depressed or anxious, she would tell someone. SHe is not. She did, however, answer questions that allowed [facility] to complete the PHQ9 Last Documented On 8:58PM ; [facility] Discussed nutritional needs teach healthy choices including fruits and vegetables Last Documented On 10:41AM ; [facility] Patient education about a pr oper diet Last Documented On 10:41AM ; [facility] Patient education about regu lar dental care Last Documented On 10:54AM ; [facility] Patient education about a ho me blood glucose monitor with instructions to bring monitor to each visit Last Documented On 10:54AM ; [facility] Dietary counseling pertainin g to diabetes mellitus Last Documented On 10:54AM ; [facility] Patient education about diab etic foot care Last Documented On 10:54AM ; [facility] Inquiry and counseling about medication administration and compliance Last Documented On 10:54AM ; [facility] Discussed concerns about exe rcise : promote physical activity Last Documented On 1 10:41AM ; [facility] Patient goals discussed Last Documented On 10:54AM ; [facility] The patient's goal is to tonny t the blood sugars and bring in the results to each visit Last Documented On 10:54AM ; [facility] Work Phone: 1([phone] 757-994011-02-2021 Instructions Includes: Instructions for all patient encounters Instructions to patient Maintain a healthy diet Last Documented On 1 4:43PM ; [facility] Maintain a healthy diet Last Documented On 10:54AM ; [facility] Education and Decision Aids were provided during visit for: Discussed nutritional needs teach healthy choices including fruits and vegetables Last Documented On 5 12:19PM ; [facility] Patient education about a pr oper diet Last Documented On 5 12:19PM ; [facility] Discussed concerns about exe rcise : promote physical activity ~ ~Follow up after ER visit Last Documented On 5 2:10PM ; [facility] Discussed nutritional needs teach healthy choices including fruits and vegetables Last Documented On 5 3:11PM ; [facility] Patient education about a pr oper diet Last Documented On 5 3:11PM ; [facility] Discussed concerns about exe rcise : promote physical activity ~ ~Follow up after ER visit Last Documented On 5 4:59PM ; [facility] Discussed nutritional needs teach healthy choices including fruits and vegetables Last Documented On 5 3:16PM ; [facility] Patient education about a pr oper diet Last Documented On 5 3:16PM ; [facility] Discussed concerns about exe rcise : promote physical activity ~ ~Discussed following up with spinal specialist ~ ~Continue to take diabetic medication at same dose Last Documented On 5 9:28AM ; [facility] Referred Patient to a Diabet es Self-Management Program Last Documented On 5 3:43PM ; [facility] Not requesting contraception Last Documented On 5 3:16PM ; [facility] Discussed nutritional needs teach healthy choices including fruits and vegetables Last Documented On 4 2:49PM ; [facility] Patient education about a pr oper diet Last Documented On 4 2:49PM ; [facility] Discussed concerns about exe rcise : promote physical activity ~ ~Follow up in one month Last Documented On 4 8:14AM ; [facility] Referred Patient to a Diabet es Self-Management Program Last Documented On 4 2:55PM ; [facility] Discussed nutritional needs teach healthy choices including fruits and vegetables Last Documented On 4 3:46PM ; [facility] Patient education about a pr oper diet Last Documented On 4 3:46PM ; [facility] Discussed concerns about exe rcise : promote physical activity ~ ~WILL REFER TO PT AND BUILDING OFFICIAL ~ ~LEVEMIR IS NOT AVAILABLE SO WILL [...] ~ Last Documented On 4 4:51PM ; [facility] Referred Patient to a Diabet es Self-Management Program Last Documented On 4 4:21PM ; [facility] Not requesting contraception Last Documented On 4 3:46PM ; [facility] Discussed nutritional needs teach healthy choices including fruits and vegetables Last Documented On 1 11:33AM ; [facility] Patient education about a pr oper diet Last Documented On 1 11:33AM ; [facility] Discussed concerns about exe rcise : promote physical activity ~ ~Follow up in one month Last Documented On 1 3:30PM ; [facility] Discussed nutritional needs teach healthy choices including fruits and vegetables Last Documented On 4:34PM ; [facility] Patient education about a pr oper diet Last Documented On 4:34PM ; [facility] Patient education about a ho me blood glucose monitor with instructions to bring monitor to each visit Last Documented On 4:43PM ; [facility] Dietary counseling pertainin g to diabetes mellitus Last Documented On 4:43PM ; [facility] Patient education about diab etic foot care Last Documented On 4:43PM ; [facility] Inquiry and counseling about medication administration and compliance Last Documented On 4:43PM ; [facility] Discussed concerns about exe rcise : promote physical activity Last Documented On 4:34PM ; [facility] Patient goals discussed Last Documented On 4:43PM ; [facility] The patient's goal is to tonny t the blood sugars and bring in the results to each visit Last Documented On 4:43PM ; [facility] NOTE: pt reported any inform ation [facility] needed was available on the internet; she could access it. She did not intend to put any information in her medical record that was not necessary or otherwise avaiable. ~ ~Also, if she were depressed or anxious, she would tell someone. SHe is not. She did, however, answer questions that allowed [facility] to complete the PHQ9 Last Documented On 8:58PM ; [facility] Discussed nutritional needs teach healthy choices including fruits and vegetables Last Documented On 10:41AM ; [facility] Patient education about a pr oper diet Last Documented On 10:41AM ; [facility] Patient education about regu lar dental care Last Documented On 10:54AM ; [facility] Patient education about a ho me blood glucose monitor with instructions to bring monitor to each visit Last Documented On 10:54AM ; [facility] Dietary counseling pertainin g to diabetes mellitus Last Documented On 10:54AM ; [facility] Patient education about diab etic foot care Last Documented On 1 10:54AM ; [facility] Inquiry and counseling about medication administration and compliance Last Documented On 1 10:54AM ; [facility] Discussed concerns about exe rcise : promote physical activity Last Documented On 1 10:41AM ; [facility] Patient goals discussed Last Documented On 10:54AM ; [facility] The patient's goal is to tonny t the blood sugars and bring in the results to each visit Last Documented On 10:54AM ; [facility] Work Phone: [phone]) 782-835111-02-2021 Instructions Includes: Instructions for all patient encounters Instructions to patient Maintain a healthy diet Last Documented On 1 4:43PM ; [facility] Maintain a healthy diet Last Documented On 10:54AM ; [facility] Education and Decision Aids were provided during visit for: Discussed nutritional needs teach healthy choices including fruits and vegetables Last Documented On 5 9:31AM ; [facility] Patient education about a pr oper diet Last Documented On 5 9:31AM ; [facility] Discussed concerns about exe rcise : promote physical activity Last Documented On 5 9:31AM ; [facility] Discussed nutritional needs teach healthy choices including fruits and vegetables Last Documented On 5 12:19PM ; [facility] Patient education about a pr oper diet Last Documented On 5 12:19PM ; [facility] Discussed concerns about exe rcise : promote physical activity ~ ~Follow up after ER visit Last Documented On 5 2:10PM ; [facility] Discussed nutritional needs teach healthy choices including fruits and vegetables Last Documented On 5 3:11PM ; [facility] Patient education about a pr oper diet Last Documented On 5 3:11PM ; [facility] Discussed concerns about exe rcise : promote physical activity ~ ~Follow up after ER visit Last Documented On 5 4:59PM ; [facility] Discussed nutritional needs teach healthy choices including fruits and vegetables Last Documented On 5 3:16PM ; [facility] Patient education about a pr oper diet Last Documented On 5 3:16PM ; [facility] Discussed concerns about exe rcise : promote physical activity ~ ~Discussed following up with spinal specialist ~ ~Continue to take diabetic medication at same dose Last Documented On 5 9:28AM ; [facility] Referred Patient to a Diabet es Self-Management Program Last Documented On 5 3:43PM ; [facility] Not requesting contraception Last Documented On 5 3:16PM ; [facility] Discussed nutritional needs teach healthy choices including fruits and vegetables Last Documented On 4 2:49PM ; [facility] Patient education about a pr oper diet Last Documented On 4 2:49PM ; [facility] Discussed concerns about exe rcise : promote physical activity ~ ~Follow up in one month Last Documented On 4 8:14AM ; [facility] Referred Patient to a Diabet es Self-Management Program Last Documented On 4 2:55PM ; [facility] Discussed nutritional needs teach healthy choices including fruits and vegetables Last Documented On 4 3:46PM ; [facility] Patient education about a pr oper diet Last Documented On 4 3:46PM ; [facility] Discussed concerns about exe rcise : promote physical activity ~ ~WILL REFER TO PT AND BUILDING OFFICIAL ~ ~LEVEMIR IS NOT AVAILABLE SO WILL [...] ~ Last Documented On 4 4:51PM ; [facility] Referred Patient to a Diabet es Self-Management Program Last Documented On 4 4:21PM ; [facility] Not requesting contraception Last Documented On 4 3:46PM ; [facility] Discussed nutritional needs teach healthy choices including fruits and vegetables Last Documented On 11:33AM ; [facility] Patient education about a pr oper diet Last Documented On 11:33AM ; [facility] Discussed concerns about exe rcise : promote physical activity ~ ~Follow up in one month Last Documented On 3:30PM ; [facility] Discussed nutritional needs teach healthy choices including fruits and vegetables Last Documented On 4:34PM ; [facility] Patient education about a pr oper diet Last Documented On 4:34PM ; [facility] Patient education about a ho me blood glucose monitor with instructions to bring monitor to each visit Last Documented On 4:43PM ; [facility] Dietary counseling pertainin g to diabetes mellitus Last Documented On 4:43PM ; [facility] Patient education about diab etic foot care Last Documented On 4:43PM ; [facility] Inquiry and counseling about medication administration and compliance Last Documented On 4:43PM ; [facility] Discussed concerns about exe rcise : promote physical activity Last Documented On 4:34PM ; [facility] Patient goals discussed Last Documented On 4:43PM ; [facility] The patient's goal is to tonny t the blood sugars and bring in the results to each visit Last Documented On 4:43PM ; [facility] NOTE: pt reported any inform ation [facility] needed was available on the internet; she could access it. She did not intend to put any information in her medical record that was not necessary or otherwise avaiable. ~ ~Also, if she were depressed or anxious, she would tell someone. SHe is not. She did, however, answer questions that allowed [facility] to complete the PHQ9 Last Documented On 8:58PM ; [facility] Discussed nutritional needs teach healthy choices including fruits and vegetables Last Documented On 10:41AM ; [facility] Patient education about a pr oper diet Last Documented On 10:41AM ; [facility] Patient education about regu lar dental care Last Documented On 10:54AM ; [facility] Patient education about a ho me blood glucose monitor with instructions to bring monitor to each visit Last Documented On 10:54AM ; [facility] Dietary counseling pertainin g to diabetes mellitus Last Documented On 10:54AM ; [facility] Patient education about diab etic foot care Last Documented On 10:54AM ; [facility] Inquiry and counseling about medication administration and compliance Last Documented On 10:54AM ; [facility] Discussed concerns about exe rcise : promote physical activity Last Documented On 10:41AM ; [facility] Patient goals discussed Last Documented On 10:54AM ; [facility] The patient's goal is to tonny t the blood sugars and bring in the results to each visit Last Documented On 10:54AM ; [facility] Work Phone: [phone]) 478-487311-02-2021 Instructions Includes: Instructions for all patient encounters Instructions to patient Maintain a healthy diet Last Documented On 4:43PM ; [facility] Maintain a healthy diet Last Documented On 10:54AM ; [facility] Education and Decision Aids were provided during visit for: Discussed nutritional needs teach healthy choices including fruits and vegetables Last Documented On 5 3:03PM ; [facility] Patient education about a pr oper diet Last Documented On 5 3:03PM ; [facility] Discussed concerns about exe rcise : promote physical activity ~ ~Continue to follow up with orthopedics ~ ~Follow up for hgba1c in one month Last Documented On 5 9:04PM ; [facility] Referred Patient to a Diabet es Self-Management Program Last Documented On 5 3:16PM ; [facility] Discussed nutritional needs teach healthy choices including fruits and vegetables Last Documented On 5 9:31AM ; [facility] Patient education about a pr oper diet Last Documented On 5 9:31AM ; [facility] Discussed concerns about exe rcise : promote physical activity Last Documented On 5 9:31AM ; [facility] Discussed nutritional needs teach healthy choices including fruits and vegetables Last Documented On 5 12:19PM ; [facility] Patient education about a pr oper diet Last Documented On 5 12:19PM ; [facility] Discussed concerns about exe rcise : promote physical activity ~ ~Follow up after ER visit Last Documented On 5 2:10PM ; [facility] Discussed nutritional needs teach healthy choices including fruits and vegetables Last Documented On 5 3:11PM ; [facility] Patient education about a pr oper diet Last Documented On 5 3:11PM ; [facility] Discussed concerns about exe rcise : promote physical activity ~ ~Follow up after ER visit Last Documented On 5 4:59PM ; [facility] Discussed nutritional needs teach healthy choices including fruits and vegetables Last Documented On 5 3:16PM ; [facility] Patient education about a pr oper diet Last Documented On 5 3:16PM ; [facility] Discussed concerns about exe rcise : promote physical activity ~ ~Discussed following up with spinal specialist ~ ~Continue to take diabetic medication at same dose Last Documented On 5 9:28AM ; [facility] Referred Patient to a Diabet es Self-Management Program Last Documented On 5 3:43PM ; [facility] Not requesting contraception Last Documented On 5 3:16PM ; [facility] Discussed nutritional needs teach healthy choices including fruits and vegetables Last Documented On 4 2:49PM ; [facility] Patient education about a pr oper diet Last Documented On 4 2:49PM ; [facility] Discussed concerns about exe rcise : promote physical activity ~ ~Follow up in one month Last Documented On 4 8:14AM ; [facility] Referred Patient to a Diabet es Self-Management Program Last Documented On 4 2:55PM ; [facility] Discussed nutritional needs teach healthy choices including fruits and vegetables Last Documented On 4 3:46PM ; [facility] Patient education about a pr oper diet Last Documented On 4 3:46PM ; [facility] Discussed concerns about exe rcise : promote physical activity ~ ~WILL REFER TO PT AND BUILDING OFFICIAL ~ ~LEVEMIR IS NOT AVAILABLE SO WILL [...] ~ Last Documented On 4 4:51PM ; [facility] Referred Patient to a Diabet es Self-Management Program Last Documented On 4 4:21PM ; [facility] Not requesting contraception Last Documented On 4 3:46PM ; [facility] Discussed nutritional needs teach healthy choices including fruits and vegetables Last Documented On 1 11:33AM ; [facility] Patient education about a pr oper diet Last Documented On 1 11:33AM ; [facility] Discussed concerns about exe rcise : promote physical activity ~ ~Follow up in one month Last Documented On 1 3:30PM ; [facility] Discussed nutritional needs teach healthy choices including fruits and vegetables Last Documented On 1 4:34PM ; [facility] Patient education about a pr oper diet Last Documented On 1 4:34PM ; [facility] Patient education about a ho me blood glucose monitor with instructions to bring monitor to each visit Last Documented On 1 4:43PM ; [facility] Dietary counseling pertainin g to diabetes mellitus Last Documented On 1 4:43PM ; [facility] Patient education about diab etic foot care Last Documented On 1 4:43PM ; [facility] Inquiry and counseling about medication administration and compliance Last Documented On 1 4:43PM ; [facility] Discussed concerns about exe rcise : promote physical activity Last Documented On 4:34PM ; [facility] Patient goals discussed Last Documented On 4:43PM ; [facility] The patient's goal is to tonny t the blood sugars and bring in the results to each visit Last Documented On 4:43PM ; [facility] NOTE: pt reported any inform ation [facility] needed was available on the internet; she could access it. She did not intend to put any information in her medical record that was not necessary or otherwise avaiable. ~ ~Also, if she were depressed or anxious, she would tell someone. SHe is not. She did, however, answer questions that allowed [facility] to complete the PHQ9 Last Documented On 8:58PM ; [facility] Discussed nutritional needs teach healthy choices including fruits and vegetables Last Documented On 10:41AM ; [facility] Patient education about a pr oper diet Last Documented On 10:41AM ; [facility] Patient education about regu lar dental care Last Documented On 10:54AM ; [facility] Patient education about a ho me blood glucose monitor with instructions to bring monitor to each visit Last Documented On 10:54AM ; [facility] Dietary counseling pertainin g to diabetes mellitus Last Documented On 10:54AM ; [facility] Patient education about diab etic foot care Last Documented On 10:54AM ; [facility] Inquiry and counseling about medication administration and compliance Last Documented On 10:54AM ; [facility] Discussed concerns about exe rcise : promote physical activity Last Documented On 10:41AM ; [facility] Patient goals discussed Last Documented On 10:54AM ; [facility] The patient's goal is to tonny t the blood sugars and bring in the results to each visit Last Documented On 10:54AM ; [facility] Work Phone: 1(601) 529-900911-02-2021 Instructions Includes: Instructions for all patient encounters Instructions to patient Maintain a healthy diet Last Documented On 1 4:43PM ; [facility] Maintain a healthy diet Last Documented On 1 10:54AM ; [facility] Education and Decision Aids were provided during visit for: Discussed nutritional needs teach healthy choices including fruits and vegetables Last Documented On 5 10:55AM ; [facility] Patient education about a pr oper diet Last Documented On 5 10:55AM ; [facility] Discussed concerns about exe rcise : promote physical activity ~ ~Follow up in one month for evaluation of symptoms ~ ~Will give tramadol to help with pain, take tylenol and motrin between doses Last Documented On 5 6:15AM ; [facility] Referred Patient to a Diabet es Self-Management Program Last Documented On 5 11:05AM ; [facility] Not requesting contraception Last Documented On 5 10:59AM ; [facility] Discussed nutritional needs teach healthy choices including fruits and vegetables Last Documented On 5 3:03PM ; [facility] Patient education about a pr oper diet Last Documented On 5 3:03PM ; [facility] Discussed concerns about exe rcise : promote physical activity ~ ~Continue to follow up with orthopedics ~ ~Follow up for hgba1c in one month Last Documented On 5 9:04PM ; [facility] Referred Patient to a Diabet es Self-Management Program Last Documented On 5 3:16PM ; [facility] Discussed nutritional needs teach healthy choices including fruits and vegetables Last Documented On 5 9:31AM ; [facility] Patient education about a pr oper diet Last Documented On 5 9:31AM ; [facility] Discussed concerns about exe rcise : promote physical activity Last Documented On 5 9:31AM ; [facility] Discussed nutritional needs teach healthy choices including fruits and vegetables Last Documented On 5 12:19PM ; [facility] Patient education about a pr oper diet Last Documented On 5 12:19PM ; [facility] Discussed concerns about exe rcise : promote physical activity ~ ~Follow up after ER visit Last Documented On 5 2:10PM ; [facility] Discussed nutritional needs teach healthy choices including fruits and vegetables Last Documented On 5 3:11PM ; [facility] Patient education about a pr oper diet Last Documented On 5 3:11PM ; [facility] Discussed concerns about exe rcise : promote physical activity ~ ~Follow up after ER visit Last Documented On 5 4:59PM ; [facility] Discussed nutritional needs teach healthy choices including fruits and vegetables Last Documented On 5 3:16PM ; [facility] Patient education about a pr oper diet Last Documented On 5 3:16PM ; [facility] Discussed concerns about exe rcise : promote physical activity ~ ~Discussed following up with spinal specialist ~ ~Continue to take diabetic medication at same dose Last Documented On 5 9:28AM ; [facility] Referred Patient to a Diabet es Self-Management Program Last Documented On 5 3:43PM ; [facility] Not requesting contraception Last Documented On 5 3:16PM ; [facility] Discussed nutritional needs teach healthy choices including fruits and vegetables Last Documented On 4 2:49PM ; [facility] Patient education about a pr oper diet Last Documented On 4 2:49PM ; [facility] Discussed concerns about exe rcise : promote physical activity ~ ~Follow up in one month Last Documented On 4 8:14AM ; [facility] Referred Patient to a Diabet es Self-Management Program Last Documented On 4 2:55PM ; [facility] Discussed nutritional needs teach healthy choices including fruits and vegetables Last Documented On 4 3:46PM ; [facility] Patient education about a pr oper diet Last Documented On 4 3:46PM ; [facility] Discussed concerns about exe rcise : promote physical activity ~ ~WILL REFER TO PT AND BUILDING OFFICIAL ~ ~LEVEMIR IS NOT AVAILABLE SO WILL [...] ~ Last Documented On 4 4:51PM ; [facility] Referred Patient to a Diabet es Self-Management Program Last Documented On 4 4:21PM ; [facility] Not requesting contraception Last Documented On 4 3:46PM ; [facility] Discussed nutritional needs teach healthy choices including fruits and vegetables Last Documented On 1 11:33AM ; [facility] Patient education about a pr oper diet Last Documented On 11:33AM ; [facility] Discussed concerns about exe rcise : promote physical activity ~ ~Follow up in one month Last Documented On 1 3:30PM ; [facility] Discussed nutritional needs teach healthy choices including fruits and vegetables Last Documented On 1 4:34PM ; [facility] Patient education about a pr oper diet Last Documented On 1 4:34PM ; [facility] Patient education about a ho me blood glucose monitor with instructions to bring monitor to each visit Last Documented On 1 4:43PM ; [facility] Dietary counseling pertainin g to diabetes mellitus Last Documented On 1 4:43PM ; [facility] Patient education about diab etic foot care Last Documented On 1 4:43PM ; [facility] Inquiry and counseling about medication administration and compliance Last Documented On 1 4:43PM ; [facility] Discussed concerns about exe rcise : promote physical activity Last Documented On 4:34PM ; [facility] Patient goals discussed Last Documented On 4:43PM ; [facility] The patient's goal is to tonny t the blood sugars and bring in the results to each visit Last Documented On 1 4:43PM ; [facility] NOTE: pt reported any inform ation P needed was available on the internet; she could access it. She did not intend to put any information in her medical record that was not necessary or otherwise avaiable. ~ ~Also, if she were depressed or anxious, she would tell someone. SHe is not. She did, however, answer questions that allowed [facility] to complete the PHQ9 Last Documented On 8:58PM ; [facility] Discussed nutritional needs teach healthy choices including fruits and vegetables Last Documented On 10:41AM ; [facility] Patient education about a pr oper diet Last Documented On 10:41AM ; [facility] Patient education about regu lar dental care Last Documented On 10:54AM ; [facility] Patient education about a ho me blood glucose monitor with instructions to bring monitor to each visit Last Documented On 10:54AM ; [facility] Dietary counseling pertainin g to diabetes mellitus Last Documented On 10:54AM ; [facility] Patient education about diab etic foot care Last Documented On 10:54AM ; [facility] Inquiry and counseling about medication administration and compliance Last Documented On 10:54AM ; [facility] Discussed concerns about exe rcise : promote physical activity Last Documented On 10:41AM ; [facility] Patient goals discussed Last Documented On 10:54AM ; [facility] The patient's goal is to tonny t the blood sugars and bring in the results to each visit Last Documented On 10:54AM ; [facility] Work Phone: 1(342) 221-552611-02-2021 Instructions Includes: Instructions for all patient encounters Instructions to patient Maintain a healthy diet Last Documented On 4:43PM ; [facility] Maintain a healthy diet Last Documented On 10:54AM ; [facility] Education and Decision Aids were provided during visit for: Discussed nutritional needs teach healthy choices including fruits and vegetables Last Documented On 5 12:06PM ; [facility] Patient education about a pr oper diet Last Documented On 5 12:06PM ; [facility] Discussed concerns about exe rcise : promote physical activity ~ ~Follow up next week for BP check ~ ~Go to ER if blood pressure drops below 90 systolic and you are symptomatic ~ ~ Last Documented On 5 3:50PM ; [facility] Referred Patient to a Diabet es Self-Management Program Last Documented On 5 12:14PM ; [facility] Discussed nutritional needs teach healthy choices including fruits and vegetables Last Documented On 5 12:48PM ; [facility] Patient education about a pr oper diet Last Documented On 5 12:48PM ; [facility] Discussed concerns about exe rcise : promote physical activity ~ ~Will start duloxetine to help with nerve pain and mood ~ ~Start taking insulin as prescribed ~ ~Follow up in one month Last Documented On 5 1:57PM ; [facility] Referred Patient to a Diabet es Self-Management Program Last Documented On 5 12:48PM ; [facility] Discussed nutritional needs teach healthy choices including fruits and vegetables Last Documented On 5 10:55AM ; [facility] Patient education about a pr oper diet Last Documented On 5 10:55AM ; [facility] Discussed concerns about exe rcise : promote physical activity ~ ~Follow up in one month for evaluation of symptoms ~ ~Will give tramadol to help with pain, take tylenol and motrin between doses Last Documented On 5 6:15AM ; [facility] Referred Patient to a Diabet es Self-Management Program Last Documented On 5 11:05AM ; [facility] Not requesting contraception Last Documented On 5 10:59AM ; [facility] Discussed nutritional needs teach healthy choices including fruits and vegetables Last Documented On 5 3:03PM ; [facility] Patient education about a pr oper diet Last Documented On 5 3:03PM ; [facility] Discussed concerns about exe rcise : promote physical activity ~ ~Continue to follow up with orthopedics ~ ~Follow up for hgba1c in one month Last Documented On 5 9:04PM ; [facility] Referred Patient to a Diabet es Self-Management Program Last Documented On 5 3:16PM ; [facility] Discussed nutritional needs teach healthy choices including fruits and vegetables Last Documented On 5 9:31AM ; [facility] Patient education about a pr oper diet Last Documented On 5 9:31AM ; [facility] Discussed concerns about exe rcise : promote physical activity Last Documented On 5 9:31AM ; [facility] Discussed nutritional needs teach healthy choices including fruits and vegetables Last Documented On 5 12:19PM ; [facility] Patient education about a pr oper diet Last Documented On 5 12:19PM ; [facility] Discussed concerns about exe rcise : promote physical activity ~ ~Follow up after ER visit Last Documented On 5 2:10PM ; [facility] Discussed nutritional needs teach healthy choices including fruits and vegetables Last Documented On 5 3:11PM ; [facility] Patient education about a pr oper diet Last Documented On 5 3:11PM ; [facility] Discussed concerns about exe rcise : promote physical activity ~ ~Follow up after ER visit Last Documented On 5 4:59PM ; [facility] Discussed nutritional needs teach healthy choices including fruits and vegetables Last Documented On 5 3:16PM ; [facility] Patient education about a pr oper diet Last Documented On 5 3:16PM ; [facility] Discussed concerns about exe rcise : promote physical activity ~ ~Discussed following up with spinal specialist ~ ~Continue to take diabetic medication at same dose Last Documented On 5 9:28AM ; [facility] Referred Patient to a Diabet es Self-Management Program Last Documented On 5 3:43PM ; [facility] Not requesting contraception Last Documented On 5 3:16PM ; [facility] Discussed nutritional needs teach healthy choices including fruits and vegetables Last Documented On 4 2:49PM ; [facility] Patient education about a pr oper diet Last Documented On 4 2:49PM ; [facility] Discussed concerns about exe rcise : promote physical activity ~ ~Follow up in one month Last Documented On 4 8:14AM ; [facility] Referred Patient to a Diabet es Self-Management Program Last Documented On 4 2:55PM ; [facility] Discussed nutritional needs teach healthy choices including fruits and vegetables Last Documented On 4 3:46PM ; [facility] Patient education about a pr oper diet Last Documented On 4 3:46PM ; [facility] Discussed concerns about exe rcise : promote physical activity ~ ~WILL REFER TO PT AND BUILDING OFFICIAL ~ ~LEVEMIR IS NOT AVAILABLE SO WILL [...] ~ Last Documented On 4 4:51PM ; [facility] Referred Patient to a Diabet es Self-Management Program Last Documented On 4 4:21PM ; [facility] Not requesting contraception Last Documented On 4 3:46PM ; [facility] Discussed nutritional needs teach healthy choices including fruits and vegetables Last Documented On 1 11:33AM ; [facility] Patient education about a pr oper diet Last Documented On 1 11:33AM ; [facility] Discussed concerns about exe rcise : promote physical activity ~ ~Follow up in one month Last Documented On 1 3:30PM ; [facility] Discussed nutritional needs teach healthy choices including fruits and vegetables Last Documented On 1 4:34PM ; [facility] Patient education about a pr oper diet Last Documented On 1 4:34PM ; [facility] Patient education about a ho ct blood glucose monitor with instructions to bring monitor to each visit Last Documented On 4:43PM ; [facility] Dietary counseling pertainin g to diabetes mellitus Last Documented On 4:43PM ; [facility] Patient education about diab etic foot care Last Documented On 4:43PM ; [facility] Inquiry and counseling about medication administration and compliance Last Documented On 4:43PM ; [facility] Discussed concerns about exe rcise : promote physical activity Last Documented On 4:34PM ; [facility] Patient goals discussed Last Documented On 4:43PM ; [facility] The patient's goal is to tonny t the blood sugars and bring in the results to each visit Last Documented On 4:43PM ; [facility] NOTE: pt reported any inform ation [facility] needed was available on the internet; she could access it. She did not intend to put any information in her medical record that was not necessary or otherwise avaiable. ~ ~Also, if she were depressed or anxious, she would tell someone. SHe is not. She did, however, answer questions that allowed [facility] to complete the PHQ9 Last Documented On 8:58PM ; [facility] Discussed nutritional needs teach healthy choices including fruits and vegetables Last Documented On 10:41AM ; [facility] Patient education about a pr oper diet Last Documented On 10:41AM ; [facility] Patient education about regu lar dental care Last Documented On 10:54AM ; [facility] Patient education about a ho ct blood glucose monitor with instructions to bring monitor to each visit Last Documented On 10:54AM ; [facility] Dietary counseling pertainin g to diabetes mellitus Last Documented On 10:54AM ; [facility] Patient education about diab etic foot care Last Documented On 10:54AM ; [facility] Inquiry and counseling about medication administration and compliance Last Documented On 10:54AM ; [facility] Discussed concerns about exe rcise : promote physical activity Last Documented On 1 10:41AM ; [facility] Patient goals discussed Last Documented On 1 10:54AM ; [facility] The patient's goal is to tonny t the blood sugars and bring in the results to each visit Last Documented On 1 10:54AM ; [facility] Work Phone: 1(356) 346-706411-02-2021 Evaluation note Includes: Assessments for all patient encounters Findings Encounter Date Assessment of body mass inde x [Body mass index [BMI] 31.0-31.9, adult] Medical Established Patient with Kavita Hardeep SPOILAGE WORKER 05/18/2021 Assessment of body mass inde x [Body mass index [BMI] 29.0-29.9, adult] Medical New Patient with Kavita Hardeep SPOILAGE WORKER 04/21/2021 Type 2 diabetes mellitus Medical New Pat ient with Kavita Hardeep SPOILAGE WORKER 04/21/2021 [facility] Work Phone: 1([phone]) 972-425510-06-2021 Evaluation note Includes: Assessments for all patient encounters Findings Encounter Date Assessment of body mass inde x [Body mass index [BMI] 29.0-29.9, adult] Medical New Patient with Kavita Hardeep SPOILAGE WORKER 04/21/2021 Type 2 diabetes mellitus Medical New Pat ient with Kavita Hardeep SPOILAGE WORKER 04/21/2021 [facility] Work Phone: 1(696) 785-114410-06-2021 History general Narrative - Reported Includes: Medical History in patient's chart Description Last Updated History of diabetes mellitus 04/21/2021 [facility] hospital[facility] 04-16-21 04/21/2021 [facility] Work Phone: 1(112) 175-766710-06-2021 History general Narrative - Reported Includes: Medical History in patient's chart Description Last Updated History of diabetes mellitus 04/21/2021 Last Documented On 1 12:10PM ; [facility] Previous hospitalizations [facility] 04-16-21 04/21/2021 Last Documented On 1 12:10PM ; [facility] Work Phone: 1(538) 449-423810-01-2021 History general Narrative - Reported Includes: Medical History in patient's chart Description Last Updated History of diabetes mellitus 04/21/2021 Previous hospitalizations [facility] 04-16-21 04/21/2021 [facility] Work Phone: [phone]) 138-600610-01-2021 History general Narrative - Reported Includes: Medical History in patient's chart Description Last Updated No previous hospitalizations [facility] 04-16-21 06/06/2024 Last Documented On 4 11:06AM ; [facility] History of diabetes mellitus 04/21/2021 Last Documented On 1 12:10PM ; [facility] Work Phone: 1(657) 413-853610-01-2021 History general Narrative - Reported Includes: Medical History in patient's chart Description Last Updated No previous hospitalizations [facility] 04-16-21 06/06/2024 Last Documented On 4 11:06AM ; [facility] History of diabetes mellitus 04/21/2021 Last Documented On 1 12:10PM ; [facility] Work Phone: 1([phone]) 656-829710-01-2021 History general Narrative - Reported Includes: Medical History in patient's chart Description Last Updated No previous hospitalizations [facility] 04-16-21 06/06/2024 Last Documented On 4 11:06AM ; [facility] History of diabetes mellitus 04/21/2021 Last Documented On 1 12:10PM ; [facility] Work Phone: [phone]) 152-205510-01-2021 History general Narrative - Reported Includes: Medical History in patient's chart Description Last Updated No previous hospitalizations [facility] 04-16-21 06/06/2024 Last Documented On 4 11:06AM ; [facility] History of diabetes mellitus 04/21/2021 Last Documented On 1 12:10PM ; [facility] Work Phone: 1([phone]) 604-141010-01-2021 History general Narrative - Reported Includes: Medical History in patient's chart Description Last Updated No previous hospitalizations [facility] 04-16-21 06/06/2024 Last Documented On 4 11:06AM ; [facility] History of diabetes mellitus 04/21/2021 Last Documented On 1 12:10PM ; [facility] Work Phone: 1([phone]) 970-621510-01-2021 History general Narrative - Reported Includes: Medical History in patient's chart Description Last Updated No previous hospitalizations [facility] 04-16-21 06/06/2024 Last Documented On 4 11:06AM ; [facility] History of diabetes mellitus 04/21/2021 Last Documented On 1 12:10PM ; [facility] Work Phone: [phone]) 306-157810-01-2021 History general Narrative - Reported Includes: Medical History in patient's chart Description Last Updated No previous hospitalizations [facility] 04-16-21 06/06/2024 Last Documented On 4 11:06AM ; [facility] History of diabetes mellitus 04/21/2021 Last Documented On 1 12:10PM ; [facility] Work Phone: [phone]) 676-649710-01-2021 History general Narrative - Reported Includes: Medical History in patient's chart Description Last Updated No previous hospitalizations [facility] 04-16-21 06/06/2024 Last Documented On 4 11:06AM ; [facility] History of diabetes mellitus 04/21/2021 Last Documented On 1 12:10PM ; [facility] Work Phone: [phone]) 747-607510-01-2021 History general Narrative - Reported Includes: Medical History in patient's chart Description Last Updated No previous hospitalizations [facility] 04-16-21 06/06/2024 Last Documented On 4 11:06AM ; [facility] History of diabetes mellitus 04/21/2021 Last Documented On 12:10PM ; [facility] Work Phone: [phone]) 850-265710-01-2021 History of Present illness Narrative* Gali Knapp [...] am. 2. Saline lock IV. 3. DC cafeteria monitor. 4. Increase ambulation this am. 5. Will [...] Roverto Barbour MD, MD Rounding Hospitalist * Juan Salamanca RN - 04/14/2021 [...] for People with Diabetes Abbie Falk RN [facility] Diabetes clinic educator 04/14/2021 4:54 PM * Gali Knapp LSW - 04/14/2021 11:39 AM EDT SW met with pt to complete assessment during quality rounds with electrical project manager. Pt is alert and oriented but not happy with visit because she is trying to sleep. Pt does cooperate with assessment. Pt lives alone in her home in [place]. Pt reports that she uses no DME or community services at home.Pt reports that her glucometer is outdated. Pt drives and is able to get herself to appointments. Pt is a full code and is currently without a PCP. electrical project manager to find a provider for her [...] remain available. Gali ALEMAN 04/14/2021 * Juan Salamanca RN - 04/14/2021 11:12 AM EDT Potassium level 2.9. Potassium being given per protocol. * Joe Oquendo RN - 04/14/2021 11:03 AM EDT [facility] [...] a living will or durable power of builder's labourer for healthcare? denies If yes do we have a copy on file? n/a Do you or your family have any questions or concerns we haven't already discussed? Denies Lives alone. Pt states she has no PCP, states [facility] fired me . Pt is agreeable to have job specification writer setup a follow up appt with a new provider. Pt states she has no preference with who and either Katy Leyva is ok. Gali ALEMAN and job specification writer present for rounding. * Juan Salamanca [...] loss Fluid Accumulation: No significant fluid accumulation Automotive Glass Installer Strength: Not Performed Estimated Daily Nutrient Needs: Energy (kcal): 5685-8922 (20-23/kg); Weight Used for Energy Requirements: Current Protein (g): 74-86g (1.3-1.5g/kg); Weight Used for Protein Requirements: [place] Fluid (ml/day): 1817 ml; Method Used for [...] Body Weight: 187 lb (84.8 kg) (03/04/2020) [place] Body Weight: 125 lbs; % [place] Body Weight 139.2 % BMI: 29 BMI Categories: Overweight (BMI 25.0-29.9) Nutrition Diagnosis: Altered nutrition-related lab values related to endocrine dysfuntion as evidenced by lab values Nutrition Interventions: Food and/or Nutrient Delivery: Continue Current Diet Nutrition Education/Counseling: Education initiated Coordination of Nutrition Care: Continue to monitor while inpatient Goals: PO > 75% of meals Recent Labs 04/13/21 1830 04/13/21 1830 04/13/21202804/13/210 04/14/21 0130 04/14/21 0526 NA 130* -- [...] diet, Recommend pursue outpatient diabetes education Contact: [phone] * Juan Salamanca RN - 04/14/2021 7:44 [...] EDT Pt initially refuses BG finger stick. Ciaio Counter Molder educates pt on importance of hourly checks. [...] of sodium phosphate with Bernarda pharmacist at [place].Also verified X2 RN. * Vidhya Reyes RN [...] this time for safety. [facility]: 1(662) 995-854309-30-2021 Hospital Discharge instructions* Instructions* Roverto Barbour MD - 04/15/2021 Discharge Instructions Admission Date: 04/13/2021 Discharge Date: 10/1/21 Disposition: Home Activity: As tolerated Diet: Diabetic Discharge Medication: Carlos Casandra Preet Home Medication Instructions EVETTE:[id number] Printed on:04/16/21 2249 Medication Information blood glucose monitor strips Test [...] 1 to 2 weeks. documented in this encounterKabbage Phone: evaluation note* Diagnosis Diabetic ketoacidosis without coma associated with diabetes mellitus due to underlying condition (HCC)- Primary Type 2 diabetes mellitus with complication, without long-term current use of insulin (HCC) Nephrolithiasis Calculus of kidney Diabetic ketoacidosis without coma associated with type 2 diabetes mellitus (HCC) documented in this encounter [facility] Phone: evaluation note Includes: Assessments for all patient encounters Findings Encounter Date Assessment of body mass inde x [Body mass index [BMI] 29.0-29.9, adult] Medical New Patient with Kavita Hardeep SPOILAGE WORKER 04/21/2021 Type 2 diabetes mellitus Medical New Pat ient with Kavita Qureshi SPOILAGE WORKER 04/21/2021 [facility] Work Phone: Evaluation note* Diagnosis Uncontrolled type 2 diabetes mellitus with hyperglycemia- Primary Mixed hyperlipidemia Obesity (BMI 30.0-34.9) Obesity, unspecified 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 documented in this encounter [facility] [place] [facility]* Diagnosis Uncontrolled type 2 diabetes mellitus with hyperglycemia- Primary documented in this encounter Accountable note* Diagnosis Uncontrolled type 2 diabetes mellitus with hyperglycemia- Primary [facility]* Diagnosis Dysuria Acute cystitis with hematuria Acute cystitis documented in this encounter [employer] Work Phone: evaluation note* Diagnosis Uncontrolled type 2 diabetes mellitus with hyperglycemia- Primary [facility]* Diagnosis DKA (diabetic ketoacidosis)- Primary Type [...] 2 diabetes mellitus documented in this encounter [facility]* Diagnosis Acute sinusitis, recurrence not specified, unspecified location- Primary documented in this encounter [employer] Work Phone: [facility] note* Diagnosis Acute midline low back pain without sciatica- Primary documented in this encounter [facility] Sprout note* Diagnosis Pain in thoracic spine documented in this encounter [employer] Sprout note* Diagnosis Strain of thoracic back region- Primary [facility] Diagnosis Hypotension due to hypovolemia- Primary Tachycardia Tachycardia, unspecified documented in this encounter [facility]* Diagnosis Tachycardia Tachycardia, unspecified [facility]* Diagnosis Generalized abdominal pain Abdominal pain, generalized [facility]* Diagnosis Tachycardia- Primary Tachycardia, unspecified Dehydration documented in this encounter [facility]* Diagnosis Dehydration- Primary Hyperglycemia due to diabetes mellitus (HCC) documented in this encounter [facility]* Diagnosis Tachycardia- Primary Tachycardia, unspecified Mid back pain Backache, unspecified documented in this encounter [facility] Includes: Assessments for all patient encounters Findings Encounter Date [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 Medical Established Patient with Sallyflorecita Miles CNP 09/19/2024 Last Documented On 5 1:29PM ; [facility] Assessment of body mass index Medical Es tablished Patient with Sally Miles SPOILAGE WORKER 09/19/2024 Last Documented On 5 1:29PM ; [facility] Body mass index Medical Established Patient with Sallyflorecita Miles SPOILAGE WORKER 09/19/2024 Last Documented On 5 1:29PM ; [facility] Type 2 diabetes mellitus Medical Established Pat ient with Sally Miles SPOILAGE WORKER 09/19/2024 Last Documented On 5 1:29PM ; [facility] Type 2 diabetes mellitus Medical Established Pat ient with Sally Miles SPOILAGE WORKER 09/19/2024 Last Documented On 5 1:29PM ; [facility] [Body mass index [BMI] 28.0- 28.9, adult] assessment of body mass index Open Access - Established with Kavita Qureshi CNP 09/02/2024 Last Documented On 5 2:11PM ; [facility] Assessment of pain in the th oracic spine Open Access - Established with Kavita Qureshi CNP 09/02/2024 Last Documented On 5 2:11PM ; [facility] Type 2 diabetes mellitus Open Access - Establish ed with Kavita Qureshi CNP 09/02/2024 Last Documented On 5 2:11PM ; [facility] [Body mass index [BMI] 28.0- 28.9, adult] assessment of body mass index Open Access - Established with Kavita Hardeep SPOILAGE WORKER 08/21/2024 Last Documented On 5 5:18PM ; [facility] Type 2 diabetes mellitus Open Access - Establish ed with Kavita Hardeep SPOILAGE WORKER 08/21/2024 Last Documented On 5 5:18PM ; [facility] [Body mass index [BMI] 28.0- 28.9, adult] assessment of body mass index Medical Established Patient with Kavita Hardeep SPOILAGE WORKER 08/08/2024 Last Documented On 5 4:23PM ; [facility] Type 2 diabetes mellitus Medical Established Pat ient with Kavita Hardeep SPOILAGE WORKER 08/08/2024 Last Documented On 5 4:23PM ; [facility] [Body mass index [BMI] 30.0- 30.9, adult] assessment of body mass index Medical Established Patient with Kavita Hardeep SPOILAGE WORKER 07/04/2024 Last Documented On 4 8:14AM ; [facility] Type 2 diabetes mellitus Medical Established Pat ient with Kavita Hardeep SPOILAGE WORKER 07/04/2024 Last Documented On 4 8:14AM ; [facility] [Body mass index [BMI] 28.0- 28.9, adult] assessment of body mass index Open Access - Established with Kavita Hardeep SPOILAGE WORKER 06/06/2024 Last Documented On 4 11:06AM ; [facility] Venipuncture was performed Open Access - Establi shed with Kavita Hardeep SPOILAGE WORKER 06/06/2024 Last Documented On 4 11:06AM ; [facility] Assessment of body mass inde x [Body mass index [BMI] 31.0-31.9, adult] Medical Established Patient with Kaviat Hardeep SPOILAGE WORKER 06/02/2021 Last Documented On 1 5:19PM ; [facility] Type 2 diabetes mellitus Medical Established Pat ient with Kavita Hardeep SPOILAGE WORKER 06/02/2021 Last Documented On 1 5:19PM ; [facility] Assessment of body mass inde x [Body mass index [BMI] 31.0-31.9, adult] Medical Established Patient with Kavita Qureshi SPOILAGE WORKER 05/18/2021 Last Documented On 1 5:34PM ; [facility] Assessment of body mass inde x [Body mass index [BMI] 29.0-29.9, adult] Medical New Patient with Kavita Qureshi SPOILAGE WORKER 04/21/2021 Last Documented On 1 12:10PM ; [facility] Type 2 diabetes mellitus Medical New Patient wit h Kavita Qureshi SPOILAGE WORKER 04/21/2021 Last Documented On 1 12:10PM ; [facility] Work Phone: Evaluation note* Diagnosis Strain of lumbar region, initial encounter- Primary documented in this encounter [facility]* Diagnosis Tachycardia- Primary Tachycardia, unspecified Mixed [...] Undiagnosed cardiac murmurs documented in this encounter [facility]* Diagnosis Tachycardia- Primary Tachycardia, unspecified Mixed hyperlipidemia Nonrheumatic aortic valve stenosis Aortic valve disorders Bicuspid aortic valve Congenital insufficiency of aortic valve Uncontrolled type 2 diabetes mellitus with hyperglycemia (HCC) Abnormal EKG Nonspecific abnormal electrocardiogram (ECG) (EKG) Heart murmur Undiagnosed cardiac murmurs Chronic pain syndrome Lumbar back pain Lumbago Spondylolisthesis of thoracic region Acquired spondylolisthesis documented in this encounter [facility]* Diagnosis Tachycardia- Primary Tachycardia, unspecified Mixed hyperlipidemia Nonrheumatic aortic valve stenosis Aortic valve disorders Bicuspid aortic valve Congenital insufficiency of aortic valve Uncontrolled type 2 diabetes mellitus with hyperglycemia (HCC) Abnormal EKG Nonspecific abnormal electrocardiogram (ECG) (EKG) Heart murmur Undiagnosed cardiac murmurs Chronic pain syndrome Dehydration- Primary Nausea and vomiting, unspecified vomiting type documented in this encounter [facility] Narrative History of Present Illness not supported for this document type No History of Present Illness [facility] Work Phone: Hospital Discharge instructions* Attachments The following attachments cannot be sent through Care Everywhere. * Sinusitis (Indonesian) [facility] Discharge [facility]* Attachments The following attachments cannot be sent through Care Everywhere. * Back: Preventing Injuries (Indonesian) * Low Back Pain: Exercises (Indonesian) [facility] Attachments The following attachments cannot be sent through Care Everywhere. * Cardiac Arrhythmia (Indonesian) * Oral Rehydration (Indonesian) [facility]* Attachments The following attachments cannot be sent through Care Everywhere. * Dehydration (Indonesian) * Diabetes: Type 2: General Info (Indonesian) documented in this [facility] Discharge instructions* Attachments The following attachments cannot be sent through Care Everywhere. * Back Pain (Indonesian) [facility]* Attachments The following attachments cannot be sent through Care Everywhere. * Back: Strain (Indonesian) [facility]* Attachments The following attachments cannot be sent through Care Everywhere. * Nausea and Vomiting (Indonesian) [facility] Instructions not supported for this document type No Instructions [facility] Work Phone: Patient problem outcome Narrative Includes: Evaluations & Outcomes for active Goals No Outcomes [facility] Work Phone: Reason for referral (narrative)No Reason for Referral [facility] Work Phone: Reason for visit Narrative* Imaging (Routine) - Closed Specialty Diagnoses / Procedures Referred By Contac t Referred To Contact Cardiology Diagnoses Tachycardia Abnormal EKG Heart murmur Procedures Echo (TTE) complete (PRN contrast/bubble/strain/3D) MD ECHO TTHRC R-T 2D W/WOM-MODE COMPL SPEC&COLR D MD TTE W OR WO FOL WCON,DOPPLER Javier Branham, [address] [place] [address] Phone: tel: fax: Referral ID Status Reason Start Date Expiration Date Visits Re quested Visits Authorized [id number] Closed 10/08/2024 12/07/2024 1 1 [facility] for [facility] Narrative* Imaging (Routine) - Closed Specialty Diagnoses / Procedures Referred By Contac t Referred To Contact Radiology Diagnoses Lumbar back pain Spondylolisthesis of thoracic region Procedures MRI LUMBAR SPINE WO CONTRAST Juan Gerber PA [address] [place] [address] Phone: tel: fax: Referral ID Status Reason Start Date Expiration Date Visits Re quested Visits Authorized [id number] Closed 11/27/2024 11/27/2025 1 1 [facility] systems Narrative - Reported Review of Systems not supported for this document type No Review of Systems [facility] Work Phone: Assessments Diagnosis Renal colic Diagnosis Renal colic Advance Directives No Advanced Directives Records FoundDocuments on File Type Date Recorded Patient Storage Wharfage Clerk Expl anation Advance Directives and Living Will Power of Burning Supervisor Latest Code Status on File Code Status Date Activated Date Inactivated Comments Full Code 04/21/2016 9:39 AM 04/21/2016 12:42 PM Full Code 04/21/2016 7:07 AM 04/21/2016 9:39 AM Documents on File Type Date Recorded Patient Storage Wharfage Clerk Expl anation Advance Directives and Living Will Power of Burning Supervisor Latest Code Status on File Code Status Date Activated Date Inactivated Comments Full Code 04/21/2016 9:39 AM 04/21/2016 12:42 PM Full Code 04/21/2016 7:07 AM 04/21/2016 9:39 AM Documents on File Type Date Recorded Patient Storage Wharfage Clerk Expl anation ACP-Advance Directive ACP-Power of Burning Supervisor Latest Code Status on File Code Status Date Activated Date Inactivated Comments Full Code 04/13/2021 10:12 PM Full Code 04/21/2016 9:39 AM 04/21/2016 12:42 PM Healthcare Agents on File Name Relationship Healthcare Agent Relationshi p Communication Kong Gonzalez Child Primary Decision Maker Documents on File Type Date Recorded Patient Storage Wharfage Clerk Expl anation ACP-Advance Directive ACP-Power of Burning Supervisor Latest Code Status on File Code Status [...] Relationship Healthcare Agent Relationshi p Communication Kong Gonzaelz Child Primary Decision Maker Healthcare Agents on [...] Name Relationship Healthcare Agent Relationshi p Communication Knog Gonzalez Child Primary Decision Maker Healthcare Agents [...] PELVIS WO CONTRAST Additional Contrast? None Rosangela Gongora W, FACIAL OPERATOR - SPOILAGE WORKER [address] [facility] [address] [place] [address] [facility] [address] [place] [address] Status Reason Specialty Diagnoses / Procedures Referred By Contact Referred To Contact Open Specialty Services Required Urology Diagnoses Nephrolithiasis BackRoverto MD [address] [place] [address] Mason Monterroso MD [address] [facility], [address] [place] [address] Scheduling Instructions [facility] Urology - Mason Monterroso MD [address] [place] [address] Specialty Diagnoses / Procedures Referred By Contac t Referred To Contact Procedures INPATIENT ADMISSION NOTIFICATION eCcilio Saucedo MD [address] [phone] Referral ID Status Reason Start Date Expiration Date V isits Requested Visits Authorized [id number] New Request 06/21/2022 07/16/2023 1 1 Specialty Diagnoses / Procedures Referred By Contac t Referred To Contact Procedures ECG Irvin Magana MD [address] [place] [address] Referral ID Status Reason Start Date Expiration Date V isits Requested Visits Authorized [id number] New Request 06/21/2022 07/16/2023 1 1 Specialty Diagnoses / Procedures Referred By Contac t Referred To Contact Cardiology Diagnoses Tachycardia Procedures Extended cardiac holter monitor (3 days-14 day) MD EXTERNAL ECG REC>48HR<7D REVIEW & INTERPRETATION MD EXTERNAL ECG REC>48HR<7D RECORDING MD EXTERNAL ECG REC>7D<15D RECORDING MD EXTERNAL ECG REC>7D<15D REVIEW & INTERPRETATION Ame Saldana, DO [address] [place] [address] Referral ID Status Reason Start Date Expiration Date Visits Re quested Visits Authorized [id number] Closed 08/22/2024 08/22/2025 1 1 Family History No Family History Records Found Description Last Updated Maternal history of endocrine disorder 1 Maternal history of type 2 diabetes marleen itus 04/21/2021 Paternal history of endocrine disorder 1 Paternal history of type 2 diabetes marleen itus 04/21/2021 Description Last Updated Maternal history of endocrine disorder 1 Last Documented On 1 12:10PM ; [facility] Maternal history of type 2 diabetes marleen itus 04/21/2021 Paternal history of endocrine disorder 1 Paternal history of type 2 diabetes marleen itus 04/21/2021 Description Last Updated Maternal history of endocrine disorder 1 Last Documented On 1 12:10PM ; [facility] Maternal history of type 2 diabetes marleen itus 04/21/2021 Paternal history of endocrine disorder 1 Paternal history of type 2 diabetes marleen itus 04/21/2021 Description Last Updated Maternal history of endocrine disorder 1 Last Documented On 1 12:10PM ; [facility] Maternal history of type 2 diabetes marleen itus 04/21/2021 Paternal history of endocrine disorder 1 Paternal history of type 2 diabetes marleen itus 04/21/2021 Description Last Updated Maternal history of endocrine disorder 1 Last Documented On 1 12:10PM ; [facility] Maternal history of type 2 diabetes marleen itus 04/21/2021 Paternal history of endocrine disorder 1 Paternal history of type 2 diabetes marleen itus 04/21/2021 Description Last Updated Maternal history of endocrine disorder 1 Last Documented On 1 12:10PM ; [facility] Maternal history of type 2 diabetes marleen itus 04/21/2021 Paternal history of endocrine disorder 1 Paternal history of type 2 diabetes marleen itus 04/21/2021 Description Last Updated Maternal history of endocrine disorder 1 Last Documented On 1 12:10PM ; [facility] Maternal history of type 2 diabetes marleen itus 04/21/2021 Paternal history of endocrine disorder 1 Paternal history of type 2 diabetes marleen itus 04/21/2021 Description Last Updated Maternal history of endocrine disorder 1 Last Documented On 1 12:10PM ; [facility] Maternal history of type 2 diabetes marleen itus 04/21/2021 Paternal history of endocrine disorder 1 Paternal history of type 2 diabetes marleen itus 04/21/2021 Description Last Updated Maternal history of endocrine disorder 1 Last Documented On 1 12:10PM ; [facility] Maternal history of type 2 diabetes marleen itus 04/21/2021 Paternal history of endocrine disorder 1 Paternal history of type 2 diabetes marleen itus 04/21/2021 Description Last Updated Maternal history of endocrine disorder 1 Last Documented On 1 12:10PM ; [facility] Maternal history of type 2 diabetes marleen itus 04/21/2021 Paternal history of endocrine disorder 1 Paternal history of type 2 diabetes marleen itus 04/21/2021 Description Last Updated Maternal history of endocrine disorder 1 Last Documented On 1 12:10PM ; [facility] Maternal history of type 2 diabetes marleen itus 04/21/2021 Paternal history of endocrine disorder 1 Paternal history of type 2 diabetes marleen itus 04/21/2021 Description Last Updated Maternal history of endocrine disorder 1 Last Documented On 1 12:10PM ; [facility] Maternal history of type 2 diabetes marleen itus 04/21/2021 Paternal history of endocrine disorder 1 Paternal history of type 2 diabetes marleen itus 04/21/2021 Description Last Updated Maternal history of endocrine disorder 1 Last Documented On 1 12:10PM ; [facility] Maternal history of type 2 diabetes marleen itus 04/21/2021 Paternal history of endocrine disorder 1 Paternal history of type 2 diabetes marleen itus 04/21/2021 Description Last Updated Maternal history of endocrine disorder 1 Last Documented On 1 12:10PM ; [facility] Maternal history of type 2 diabetes marleen itus 04/21/2021 Paternal history of endocrine disorder 1 Paternal history of type 2 diabetes marleen itus 04/21/2021 Description Last Updated Maternal history of endocrine disorder 1 Last Documented On 1 12:10PM ; [facility] Maternal history of type 2 diabetes marleen [...] ABDOMEN PELVIS WO CONTRAST Additional Contrast? None Parsell, Rosangela W, FACIAL OPERATOR - SPOILAGE WORKER [address] [facility] [address] [place] [address] [facility] [place] [address] [place] [address] Reason Comments Flank Pain Left side flank pain for past 2 weeks. Status Reason Specialty Diagnoses / Procedures Referre d By Contact Referred To Contact Diagnoses Diabetic ketoacidosis without coma associated with type 2 diabetes mellitus (HCC) Diabetic ketoacidosis without coma associated with diabetes mellitus due to underlying condition (HCC) Roverto Barbour MD [address] [place] [address] [facility] Reason Comments Diabetes 3-4 week diabetic [...] type 2 diabetes mellitus Cecilio Saucedo MD [address] [place] [id number] [facility] Referral ID Status Reason Start Date Expiration Date Visits Re quested Visits Authorized [id number] 1 1 Reason Comments Cough Patient complaint [...] Extended cardiac holter monitor (3 days-14 day) MD EXTERNAL ECG REC>48HR<7D REVIEW & INTERPRETATION MD EXTERNAL ECG REC>48HR<7D RECORDING MD EXTERNAL ECG REC>7D<15D RECORDING MD EXTERNAL ECG REC>7D<15D REVIEW & INTERPRETATION Ame Saldana, DO [address] [facility] [place] [address] Referral ID Status Reason Start Date Expiration Date Visits Re quested Visits Authorized [id number] Closed 08/22/2024 08/22/2025 1 1 Specialty Diagnoses / Procedures Referred By Contac t Referred To Contact Radiology Diagnoses Generalized abdominal pain Procedures US RENAL COMPLETE US RETROPERITONEAL COMPLETE Kavita Qureshi, FACIAL OPERATOR - SENIOR ELECTRICAL CONTROLS ENGINEER [address] [place] [address] Referral ID Status Reason Start Date Expiration Date Visits Re quested Visits Authorized [id number] Open 08/19/2024 08/19/2025 1 1 Reason Comments Irregular Heart Beat Pt. Reports set by Kavita Qureshi NP for elevated HR. Pt. States just turned in holter monitor today Reason Comments Illness Pt reports she feels weak and dehydrated. Reports she was in [place] ED on Monday and they wanted to [...] BREAKFAST, First dose (after last modification) on 04/17/21 at 0700 insulin glargine (LANTUS) injection vial [...] dose at 1200)1644 (Given - Provider: Juan Salamanca, YARELI) 0817 (Given - Provider: Angelika Bunch RN)1200 [...] break. 0636 (Given - Provider: Nesha Perez, RN) [...] break. 0622 (Given - Provider: Nesha Perez, YARELI) vitamin B-6 (PYRIDOXINE) tablet 50 mg 50 [...] Juan Salamanca RN)1957 (Stopped - Provider: Nesha Perez, RN) 0.9% [...] Salamanca RN)0922 (Rate/Dose Change - Provider: Juan Salamanca, YARELI)1004 (New Bag - Provider: Juan Salamanca RN) [...] RN)1655 (Rate/Dose Change - Provider: Juan Salamanca, YARELI)1742 (New Bag - Provider: Juan Salamanca, YARELI)1846 (Rate/Dose Change - Provider: Juan Salamanca, RN)1928 (Rate/Dose Change - Provider: Juan Salamanca, YARELI)1932 (Stopped - Provider: Juan Salamanca, YARELI) PRN Medication Order 04/14/2021 04/15/2021 04/16/2021 albuterol [...] RN)1815 (New Bag - Provider: Juan Salamanca, RN) sodium phosphate 15 mmol in dextrose [...] 1447 (New Bag - Provider: Juan Salamanca, RN)1958 (Stopped - Provider: Nesha Perez, YARELI) No Frequency Medication Order 04/14/2021 04/15/2021 04/16/2021 sodium phosphates 15 MMOLE/5ML injection (COMPLETED) Starting on Mon04/14/21 at 0216, For 1 dose, Vidhya Reyes: cabinet override 0243 (Given - Provider: Vidhya Reyes, YARELI) Scheduled Medication Order 06/20/2022 06/21/2022 06/22/2022 aspirin [...] to the hypoglycemia management protocol on Ellucid: E-UQ-Rwnpefvoticg Management Protocol Insulin regular (HUMULIN R;NOVOLIN R) [...] RN)211 (Rate/Dose Change - Provider: Abbie Gibson, RN)2212 (Rate/Dose Change - Provider: Abbie Shock, RN)2311 (Rate/Dose Change - Provider: Abbie Gibson, RN) 0018 (Rate/Dose Change - Provider: Abbie Gibson, RN)0117 (Rate/Dose Verify - Provider: Abbie Gibson, RN)0222 (Rate/Dose Verify - Provider: Kwaku Tubbs RN)0323 (Rate/Dose Change - Provider: Abbie Shock, RN)0420 (Rate/Dose Verify - Provider: Abbie Gibson, RN)0527 (Rate/Dose Verify - Provider: Abbie Shock, RN)0629 (Rate/Dose Change - Provider: Abbie Shock, RN)0733 (Rate/Dose Verify - Provider: Alison Doherty RN)0839 (Rate/Dose Verify - Provider: Alison Doherty RN)0930 (Rate/Dose Verify - Provider: Alison Doherty RN)1055 (Stopped - Provider: Alison Doherty RN) sodium chloride 0.9% IV solution Intravenous, at 150 mL/hr, CONTINUOUS, Starting on Mon06/21/22 at 1730, Until Mon06/22/22 at 0529 1928 ($$New Bag$$ - Provider: Abbie Gibson RN)2044 [...] less than 60 mg/ml. If unresponsive call BID WRITER ondansetron 4mg/2ml (ZOFRAN) injection 4 mg 4 [...] to the hypoglycemia management protocol on Ell: A-AP-Dbjsubxaduxa Management Protocol
And dextrose 10% IV solution [...] less than 60 mg/ml. If unresponsive call BID WRITER
And NOTIFY PHYSICIAN, Blood Glucose LESS THAN 70 mg/dl or greater than 400 mg/dl (CANCELED) Routine, CONTINUOUS, Starting on Mon06/22/22 at 1046, Until Specified
Who to Notify: SENIOR ELECTRICAL CONTROLS ENGINEER/Physician
For all Blood Glucose LESS THAN 70 mg/dl, or greater than 400 mg/dl notify SENIOR ELECTRICAL CONTROLS ENGINEER/Physician Scheduled Medication Order 07/03/2022 07/04/2022 07/05/2022 0.9 [...] On Mon08/21/24 at 1845, For 1 dose 1839 (New Bag - Prov ider: Geneva Velez RN)1936 (Stopped - Provider: Geneva Velez RN) sodium [...] given over 10 to 15 minutes 1942 (Fred Bag - Prov ider: Geneva Velez RN)2035 [...] 1722 (New Bag - Prov ider: Tali Ratliff, YARELI)2000 (Stopped - Provider: Goldie Starkey, RN) sodium chloride 0.9 % bolus 1,000 [...] Apply patch to left low back. The medical assembler's recommendations for the number of patches that can be applied within a 24-hour period varies from 1 to 4 times daily and the duration of application varies from 8 to 24 hours; refer to the medical assembler's labeling for product-specific recommendations. 1353 (Patch Applied [...] Care Teams (unrecognized sec tion and content) Director [employer] Relationship Specialty Start Date End Date Kavita Qureshi CNP [address] [place] [place] [phone] PCP - General Family Medicine 06/21/21 Director [employer] Relationship Specialty Start Date End Date Kavita Qureshi CNP [address] [place] [phone] PCP - General Family Medicine 06/21/21 Director [employer] Relationship Specialty Start Date End Date Kavita Qureshi CNP [address] [place] [phone] PCP - General Family Medicine 06/21/21 Director [employer] Relationship Specialty Start Date End Date Kavita Qureshi CNP [address] [place] [address] PCP - General Family Medicine 06/21/21 Director [employer] Relationship Specialty Start Date End Date Kavita Qureshi CNP [address] [place] [address] PCP - General Family Medicine 06/21/21 [employer] Relationship Specialty Start Date End Date Kavita Qureshi APRN - SENIOR [employer]S ENGINEER [address] [place] [address] PCP - General Certified Nurse Practitioner 08/04/24 Director [employer] Relationship Specialty Start Date End Date Kavita Qureshi APRN - SENIOR E[employer] ENGINEER [address] [place] [address] PCP - General Certified Nurse Practitioner 08/04/24 Director [employer] Relationship Specialty Start Date End Date Kavita Qureshi APRN - SENIOR ELECT[employer]ICAL [employer]S ENGINEER [address] [place] [address] PCP - General Certified Nurse Practitioner 08/04/24 Director [employer] Relationship Specialty Start Date End Date Kavita Qureshi APRN - SENIOR ELECT[employer] ENGINEER [address] [place] [address] PCP - General Certified Nurse Practitioner 08/04/24 Director [employer] Relationship Specialty Start Date End Date Kavita Qureshi APRN - SENIOR E[employer] ENG[employer]ER [address] [place] [address] PCP - General Certified Nurse Practitioner 08/04/24 Director [employer] Relationship Specialty Start Date End Date Kavita Qureshi FACIAL OPERATOR - SENIOR [employer] ENGINEER [address] [place] [address] PCP - General Certified Nurse Practitioner 08/04/24 Director [employer] Relationship Specialty Start Date End Date Kavita Qureshi FACIAL OPERATOR - SENIOR E[employer] ENGINEER [address] [place] [address] PCP - General Certified Nurse Practitioner 08/04/24 Director [employer] Relationship Specialty Start Date End Date Kavita Qureshi FACIAL OPERATOR - SENIOR E[employer]ICAL [employer]S ENGINEER [address] [place] [address] PCP - General Certified Nurse Practitioner 08/04/24 Director [employer] Relationship Specialty Start Date End Date Kavita Qureshi FACIAL OPERATOR - SENIOR E[employer]ICAL [employer]S ENGINEER [address] [place] [address] PCP - General Certified Nurse Practitioner 08/04/24 Director [employer] Relationship Specialty Start Date End Date Kavita Qureshi FACIAL OPERATOR - SENIOR E[employer]ICAL [employer]S ENGINEER [address] [place] [address] PCP - General Certified Nurse Practitioner 08/04/24 Director [employer] Relationship Specialty Start Date End Date Kavita Qureshi FACIAL OPERATOR - SENIOR E[employer]ICAL [employer]S ENGINEER [address] [place] [address] PCP - General Certified Nurse Practitioner 08/04/24 Director [employer] Relationship Specialty Start Date End Date Kavita Qureshi FACIAL OPERATOR - SENIOR E[employer]ICAL [employer]S ENGINEER [address] [place] [address] PCP - General Certified Nurse Practitioner 08/04/24 Director [employer] Relationship Specialty Start Date End Date Kavita Qureshi APRN - SENIOR E[employer]S ENGINEER [address] [place] [address] PCP - General Certified Nurse Practitioner 08/04/24 Director [employer] Relationship Specialty Start Date End Date Kavita Qureshi FACIAL OPERATOR - SENIOR E[employer]S ENGINEER [address] [place] [address] PCP - General Certified Nurse Practitioner 08/04/24 Director [employer] Relationship Specialty Start Date End Date Kavita Qureshi APRN - SENIOR ELECT[employer]ICAL [employer]OLS ENGINEER [address] [place] [address] PCP - General Certified Nurse Practitioner 08/04/24 Director [employer] Relationship Specialty Start Date End Date Kavita Qureshi FACIAL OPERATOR - SENIOR E[employer]ICAL [employer]S ENGINEER [address] [place] [address] PCP - General Certified Nurse Practitioner 08/04/24 Director [employer] Relationship Specialty Start Date End Date Kavita Qureshi FACIAL OPERATOR - SENIOR E[employer]ICAL CONTROLS ENGINEER [address] [place] [address] PCP - General Certified Nurse Practitioner 08/04/24 INFORMATION SOURCE (unrecogn ized section and content) DATE CREATED AUTHOR 08/13/2022 [facility] DATE CREATED AUTHOR AUTHOR'S ORGANIZ ATION 09/08/2022 [facility] DATE CREATED AUTHOR AUTHOR'S ORGANIZ ATION 09/09/2024 [facility] DATE CREATED AUTHOR AUTHOR'S ORGANIZ ATION 02/28/2025 [facility] DATE CREATED AUTHOR AUTHOR'S ORGANIZ ATION 04/02/2025 [facility] FOR RECORDS PERTAINING TO PATIENTS WHO ARE [...] BE BASED ON THE PRIMARY CLINICAL RECORDS. [facility] [email or web address] [facility]. provides no warranty or guarantee of the accuracy or completeness of information in this document.
--- NOTE | 2025-04-09 10:22 | PM.CN ---
Consult Note: HPI Data of Consult Patient: known to practice within the last 3 years Requesting Physician: Jackie Swanson NP Primary Care Provider: Non-Staff Physician, Consult Narrative Reason for consult: chest wall pain and low back pain Narrative: Casandra Gonzalez a 55 year old female with chronic pain post shingles in 2023. continues to endorse significant multidermatomal left thoracic and chest wall pain unresponsive to topical lidocaine, aspercreme, gabapentin, and not interested in duloxetine or other oral medications due to potential side effects. pt not interested in topical qutenza treatments due to cost. Pt underwent bilateral T7,8,9 intercostal nerve block without significant improvement, preop pain 6/10 post op pain 4/10. in regards to low back pain she underwent left L4-5 L5-S1 RFA with moderate improvement in pain per pt cc:: CC: Jackie Swanson NP Review of Systems ROS Musculoskeletal Reports: back pain and other (chest wall pain) PFSH PFSH Medical History Diabetes mellitus ?E11.9 - Type 2 diabetes mellitus without complications (ICD-10) Social History Smoking status: Never smoker Meds Home Medications and Allergies Home Medications ?Medication ?Instructions ?Recorded ?Confirmed ?Type insulin glargine 100 unit/mL 50 unit subcut BID 12/25/24 03/31/25 History subcutaneous solution (Lantus U-100 Insulin) insulin lispro 100 unit/mL 1 sliding scale dose subcut 12/25/24 03/31/25 History subcutaneous cartridge USEASDIRECTD Allergies Allergy/AdvReac Type Severity Reaction Status Date / Time [id number] Reductase AdvReac Severe Hives Verified 03/31/25 08:01 Inhibitor Exam Constitutional Documenting provider has reviewed patient's vital signs: yes Common normals: no apparent distress, oriented x3, healthy appearing, alert and well nourished General appearance: cooperative HENMT Common normals: normocephalic, hearing grossly normal bilaterally and moist oral mucous membranes Head and scalp: normocephalic Eye Common normals: PERRL Pupil: PERRL Neck & C-Spine Common normals: full ROM General: normal visual inspection Chest Common normals: inspection of chest normal Respiratory Common normals: normal respiratory effort, no retractions and no use of accessory muscles Back & Pelvis Thoracic spine/upper back: ROM limited, pain with ROM, thoracic spinal tenderness and paraspinal muscle tenderness Lumbar spine/lower back: ROM limited; no pain with ROM and no lumbar spinal tenderness Other: pain following bilateral T5-9 dermatomal pattern post shingles without rash at this time Neuro Common normals: oriented x3 Sensorium/orientation: alert Psych Common normals: mental status grossly normal, thought process normal, cooperative, affect normal, speech normal and activity/motor behavior normal Speech: normal speech Thought process: normal thought process Results Additional Findings Additional findings: If on a controlled substance or opioids, I have checked an [place] report on this patient and there are no aberrancies noted in the prescribing history.??If on a controlled substance or opioid a drug screen was completed and reviewed within the last year, and if there has not been a drug screen completed we ordered one today to monitor higher risk, state monitored pain medication use. As part of providing excellent, safe, comprehensive care, the following was completed at our patient's visit: 1. A medication reconciliation and review to ensure accurate knowledge of current/active medications, including asking our patients to inform us about any [id number] medications or herbal remedies/nutritional supplements/alternative remedies. 2. A review to specifically ensure our patients have had annual screening for screening for depression, screening for tobacco use, and screening for unhealthy alcohol use. For concerning screenings had a discussion with the patient, provided patient education, and recommended follow-up with primary care provider when appropriate. If patient noted with a risk of falling, they received education on strength, gait, and balance training to prevent future risk of falling. Portions of this note may have been carried over from the previous visit and updated as appropriate. Please note this office utilizes paper charting in addition to the electronic medical record. A list of current medications, vitals, and PMH is available there as the clinical staff outside of myself do not have access to [facility] charting during the clinic day operations. As part of providing quality comprehensive care the current medications, vitals, and PMH were reviewed in the paper chart. Assessment and Plan Assessment and Plan (1) Intercostal neuralgia: Assessment and Plan: 03/31/25 failed bilateral T7,8,9 intercostal nerve block, do not recommend RFA (2) Post herpetic neuralgia: (3) Lumbar spondylosis: Assessment and Plan: 03/10 left L4-5 L5-S1 RFA with moderate improvement ongoing Plan 55 year old female with moderate to severe rib and chest wall pain post shingles in 2023, as noted above pt has failed to benefit from topical lidocaine, aspercreme, gabapentin and is not interested in additional non opioid medications. as previously discussed with pt she reports numerous dermatome pain patterns and we can only target a few select levels with intercostal nerve blocks. again recommended qutenza, however pt does not think she can afford. I mentioned scs as a last resort option, pt not interested in learning more due to extent/invasiveness. no further recommendations. low back pain well controlled post lumbar RFA.
== END 2025-04-09 09:47 | disposition home or self-care (01) ==
LOC: PM 09:46
PROVIDERS: Visit Provider Nurse Practitioner
DX: M47.816 Spondylosis without myelopathy or radiculopathy, lumbar region (principal); G58.0 Intercostal neuropathy; B02.29 Other postherpetic nervous system involvement
CPT/HCPCS: G0463